=== PATIENT | female | born 1960 | race Caucasian/White ===

== ENCOUNTER 2023-04-14 09:59 | Outpatient (CLI) | payer BC, SELFPAY | END 2023-04-14 10:00 | disposition home or self-care (01) | PROVIDERS: PCP Obstetrics & Gynecology; Visit Provider Family Medicine | DX: R03.0 Elevated blood-pressure reading, without diagnosis of hypertension (principal); R50.9 Fever, unspecified | CPT/HCPCS: 80053; 86618 ==

== ENCOUNTER 2023-04-30 14:53 | Outpatient (CLI) | payer BC, SELFPAY | END 2023-04-30 14:54 | disposition home or self-care (01) | PROVIDERS: PCP Obstetrics & Gynecology; Visit Provider Family Medicine | DX: F10.10 Alcohol abuse, uncomplicated (principal); Z01.818 Encounter for other preprocedural examination | CPT/HCPCS: 80076; 82977; 85610 ==

== ENCOUNTER 2023-05-25 08:24 | Outpatient (CLI) | payer BC, SELFPAY ==
--- NOTE | 2023-05-25 08:45 | CRLHL7_ITS ---
For Patients: As a result of the Century Cures Act, medical imaging exams and procedure reports are released immediately into your electronic medical record. You may view this report before your referring provider. If you have questions, please contact your health care provider. BILATERAL SCREENING MAMMOGRAM WITH COMPUTER-AIDED DETECTION TECHNIQUE: CC and MLO views were obtained. These mammographic images have been obtained using full-field digital technique. These mammographic images were interpreted with the benefit of computer-aided detection. COMPARISON FILM: 03/23/18, 02/04/17, 07/25/14. FINDINGS: The breasts are heterogeneously dense, which may obscure small masses IMPRESSION: There is no radiographic evidence for malignancy. ASSESSMENT: BI-RADS Category 2: Benign RECOMMENDATION: Routine screening mammogram in 1 year. A lay language report of this examination will be provided to the patient. Donis Lni M.D. Diagnostic Radiologist [email or web address] YVONNE/Dictated by: Donis Lin MD @ 05/25/2023 10:40:00 AM (Electronically Signed)
== END 2023-05-25 08:25 | disposition home or self-care (01) ==
LOC: MAMMO 08:26
PROVIDERS: Visit Provider Obstetrics & Gynecology
DX: Z12.31 Encounter for screening mammogram for malignant neoplasm of breast (principal); R92.2 Inconclusive mammogram
CPT/HCPCS: 77063; 77067

== ENCOUNTER 2023-08-23 18:09 | Emergency (ER) | payer BC, OTHER, SELFPAY ==
[2023-08-23 18:14] VITALS: BP 141/64; PULSE 121; RESP 18; TEMP 36.8; O2SAT 98; BMI 21.0
--- NOTE | 2023-08-23 18:29 | CRLHL7_ITS ---
For Patients: As a result of the 21st Century Cures Act, medical imaging exams and procedure reports are released immediately into your electronic medical record. You may view this report before your referring provider. If you have questions, please contact your health care provider. INDICATION: Abdominal bloating, perianal abscess, black stool. TECHNIQUE: CT abdomen and pelvis acquired with 64 mL Isovue 370 IV contrast. COMPARISON: None available. FINDINGS: Lower chest: No focal consolidation. Liver: Nodular contour of the liver, compatible with cirrhosis. Few punctate calcified granulomas. Punctate hypodense lesions scattered throughout the liver as well, which may reflect regenerative nodules. Gallbladder and bile ducts: Cholelithiasis. Gallbladder is not distended. Pericholecystic fluid is likely secondary to ascites. Pancreas: Unremarkable. Spleen: Unremarkable. Splenule is noted. Adrenal glands: Indeterminate 1.6 cm left adrenal nodule. Kidneys: Kidneys enhance symmetrically, without hydronephrosis. Retroperitoneum: No lymphadenopathy. Bowel and mesentery: Bowel is not obstructed. No pneumoperitoneum. 2.8 x 1.7 cm peripherally enhancing left perianal fluid collection, consistent with left perianal abscess. There is also likely a perianal fistula associated. Scattered colonic diverticulosis, without evidence of acute diverticulitis. Sequelae of portal colopathy of the ascending colon. Moderate volume ascites. Bladder: Unremarkable for degree of distension. Reproductive organs: Posthysterectomy. Pelvic lymph nodes: No lymphadenopathy. Vessels: Scattered atherosclerotic calcifications. Recanalization of the paraumbilical vein noted. Abdominal wall: Mild anasarca. Bones: Multilevel degenerative changes of the spine. No suspicious/aggressive focal osseous lesion. IMPRESSION: 1. Left perianal abscess measuring 2.8 x 1.7 cm. There is also likely a left perianal fistula. 2. Morphologic sequelae of cirrhosis and portal hypertension. Scattered punctate hypodense lesions scattered throughout the liver, may reflect regenerative nodules. Recommend correlation with serum alpha-fetoprotein, and follow-up liver MRI as clinically indicated. 3. Additional incidental findings as above, including an indeterminate 1.6 cm left adrenal nodule. Please note that all CT scans at this facility use dose modulation, iterative reconstruction, and/or weight-based dosing when appropriate to reduce radiation dose to as low as reasonably achievable. Dictated by Mauricio Gonzalez MD @ 08/23/2023 8:53:18 PM (Electronically Signed)
--- NOTE | 2023-08-23 19:13 | ED_ITS ---
HPI - General Adult General Date Seen: 08/23/23 Chief complaint: Unspecified Complaint, Adult Stated complaint: anal problems, stool is black Time Seen by Provider: 08/23/23 18:12 Source: patient Mode of arrival: ambulatory Limitations: no limitations History of Present Illness HPI narrative: Patient is a 62-year-old female with a history of hypertension, alcohol abuse, tobacco use presenting to the emergency department for black tar schools, distended abdomen, in most concerned about a possible perianal abscess. She states the bowel urine have goes she had a perianal abscess that was drained she was given antibiotics. She states over the past 3 days she has been feeling like it is coming back and she has had pain with defecation. She states she has been holding her stool because of the associated pain with defecation. States she has intermittent fevers but this has been going on for over 2 months. Denies weakness, numbness, abdominal pain, nausea, vomiting, diarrhea, ligh theadedness, dizziness. Does states she noticed 1 episode of black tarry stools right before she came to the emergency department. Related Data Previous Rx's Medication Instructions Recorded amoxicillin 400 mg-potassium 10 ml PO BID 5 days #100 mL 08/23/23 clavulanate 57 mg/5 mL oral suspension Allergies Allergy/AdvReac Type Severity Reaction Status Date / Time No Known Drug Allergies Allergy Verified 08/17/23 11:13 Review of Systems Status of ROS: Reports: 10 or more systems reviewed and unremarkable except as noted in History and below PFSH PFS Medical History Tobacco abuse ?Z72.0 - Tobacco use (ICD-10) Elevated LFTs ?R79.89 - Other specified abnormal findings of blood chemistry (ICD-10) Primary hypertension ?I10 - Essential (primary) hypertension (ICD-10) Health care directive on file ?Z78.9 - Other specified health status (ICD-10) Alcohol abuse ?F10.10 - Alcohol abuse, uncomplicated (ICD-10) Depression ?F32.A - Depression, unspecified (ICD-10) Tubular adenoma of colon ?D12.6 - Benign neoplasm of colon, unspecified (ICD-10) Surgical History History of breast biopsy ?Z98.890 - Other specified postprocedural states (ICD-10) History of abdominal hysterectomy ?Z90.710 - Acquired absence of both cervix and uterus (ICD-10) Family History Father High blood pressure Mother High blood pressure Social History Narrative: patient admits to smoking and drinking alcohol. 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 Reviewed for scanning to medical record on 04/17/2020 Smoking Status: Current every day smoker What tobacco products do you use: cigarettes Do you use any of these nicotine containing products: None Second hand tobacco smoke exposure: No How often do you have a drink containing alcohol: 4 or more times a week AUDIT-C Alcohol total score: 4 Non-prescribed substance use: denies use Little interest or pleasure in doing things: not at all Feeling down, depressed, or hopeless: not at all service: No Exam Narrative: Exam Narrative: Const: Well-nourished, Well-developed, in mild distress Eyes: PERRL, no conjunctival injection, and symmetrical lids HENT: Atraumatic external nose and ears. Moist mucous membranes. Neck: Symmetric, trachea midline, No thyromegaly. CVS: RRR, No murmurs or gallops. Peripheral pulses 2+ and equal in all extremities RESP: Unlabored respiratory effort. Clear to auscultation bilaterally. GI: Nontender, distended abdomen, No rebound or guarding. rectal: 1 cm x 1 cm fluctuant mass seen near the anal region. MSK:Extremities w/o deformity, Normal Active ROM Skin: Warm, Dry. No rashes or lesions. Neuro: Normal Muscle tone, No focal neurological deficits. Psych: Awake, Alert, & Oriented x3. Appropriate mood and affect. Const: Vital Signs, click to edit/add: Vital Signs - 24 hr 08/23/23 18:14 Temperature 98.2 F Pulse Rate [Pulse Oximeter] 121 H Respiratory Rate 18 Blood Pressure [Ri ght Upper Arm] 141/64 H Pulse Oximetry 98 Oxygen Delivery Me thod Room Air Course Vital Signs Vital signs: Initial Vital Signs Temperature 98.2 F 08/23/23 18:14 Temperature Source Temporal Artery Scan 08/23/23 18:14 Pulse Rate 121 H 08/23/23 18:14 Respiratory Rate 18 08/23/23 18:14 Blood Pressure 141/64 H 08/23/23 18:14 Blood Pressure Mean 89 08/23/23 18:14 Blood Pressure Position Sitting 08/23/23 18:14 Pulse Oximetry 98 08/23/23 18:14 Oxygen Delivery Method Room Air 08/23/23 18:14 Vital Signs Temperature 98.2 F 08/23/23 18:14 Pulse Rate 121 H 08/23/23 18:14 Respiratory Rate 18 08/23/23 18:14 Blood Pressure 141/64 H 08/23/23 18:14 Pulse Oximetry 98 08/23/23 18:14 Oxygen Delivery Method Room Air 08/23/23 18:14 Temperature 98.2 F 08/23/23 18:14 Pulse Rate 121 H 08/23/23 18:14 Respiratory Rate 18 08/23/23 18:14 Blood Pressure 141/64 H 08/23/23 18:14 Pulse Oximetry 98 08/23/23 18:14 Oxygen Delivery Method Room Air 08/23/23 18:14 Medications Administered Medications: Generic Name Dose Route Start Last Admin Trade Name Freq PRN Reason Stop Dose Admin Ondansetron HCl 4 mg 08/23/23 21:39 08/23/23 21:54 Ondansetron 2 Mg/Ml Inj IVP 08/23/23 21:40 4 mg ONCE ONE Administration Medical Decision Making MDM Narrative Medical decision making narrative: Patient is a 62-year-old female presenting to emergency department for the perianal abscess. You can visually see this on exam. She is also having some abdominal distension. Patient has a history of elevated LFTs and alcohol abuse. Has not been diagnosed with cirrhosis. This is a 2nd abscess in the past year and a half. Due to this and will do CT scan with IV contrast to better evaluate the abscess. It will also order CBC and CMP. CBC shows no concerning findings. CMP shows a potassium of 3.1 which was replenished is elevated liver enzymes. The AST and alk-phos appears consistent with previous liver enzymes. Bilirubin is elevated compared to previous. CT scan returned showing the perianal abscess along with possibility of a. Her rectal fistula. Also shows cirrhosis morphology and portal hypertension there is punctate hypodense lesions throughout the liver in the recommends MRI follow- up. I spoke to Dr. Carrera of general surgery a week she recommends draining the abscess and have the patient follow-up with Colorectal surgery due to the repeat nature of this abscess. The abscess was drained and I tried to pack it but was unable to get any packing in it. Patient had episode of emesis after this was given Zofran. She will be discharged with the through [facility]. I informed her she is to follow up with Colorectal surgery and her primary care provider. Lab Data Labs: Lab Results 08/23/23 Range/Units 19:15 WBC 7.49 (4.50-11.00) K/uL RBC 3.15 L (4.00-5.20) m/uL Hgb 10.3 L (12.0-16.0) gm/dL Hct 30.8 L (33.0-51.0) % MCV 98 (80-100) fL MCH 33 (26-34) pg MCHC 33 (32-36) gm/dL RDW Coeff of Katt 15.0 (11.5-15.5) % Plt Count 111 L (140-440) K/uL Neut % (Auto) 71.4 (42.0-72.0) % Lymph % (Auto) 19.9 L (20-44) % [place] % (Auto) 7.6 (0.0-11.0) % Eos % (Auto) 0.5 (0.0-7.0) % Baso % (Auto) 0.3 (0.0-3.0) % Neut # (Auto) 5.35 (1.7-7.0) K/uL Lymph # (Auto) 1.50 (0.90-2.90) K/uL [place] # (Auto) 0.60 (0.00-0.90) K/UL Eos # (Auto) 0.04 (0.00-0.50) K/uL Baso # (Auto) 0.02 (0.00-0.30) K/uL Abs Immat Gran (auto) 0.02 (0.00-0.30) K/uL Imm/Tot Granulo (auto) 0.3 % Sodium 134 L (135-149) mmol/L Potassium 3.1 L (3.6-5.1) mmol/L Chloride 100 (96-114) mmol/L Carbon Dioxide 26 (20-32) mmol/L Anion Gap 8 (7-15) mEq/L BUN 4 L (7-30) mg/dL Creatinine 0.3 L (0.5-1.5) mg/dL Estimated Creat Clear 54.30 Estimated GFR 120 ml/min Glucose 100 (60-115) mg/dL Calcium 7.8 L (8.4-10.6) mg/dL Total Bilirubin 3.5 H (0.1-1.5) mg/dL AST 179 H (12-35) U/L ALT 27 (4-35) U/L Alkaline Phosphatase 267 H (40-150) U/L Total Protein 8.0 (6.0-8.3) g/dL Albumin 3.5 (3.3-5.0) g/dL Imaging Data CT scan abdomen and pelvis: Radiologist's impression: 1. Left perianal abscess measuring 2.8 x 1.7 cm. There is also likely a left perianal fistula. 2. Morphologic sequelae of cirrhosis and portal hypertension. Scattered punctate hypodense lesions scattered throughout the liver, may reflect regenerative nodules. Recommend correlation with serum alpha-fetoprotein, and follow-up liver MRI as clinically indicated. 3. Additional incidental findings as above, including an indeterminate 1.6 cm left adrenal nodule. Please note that all CT scans at this facility use dose modulation, iterative reconstruction, and/or weight-based dosing when appropriate to reduce radiation dose to as low as reasonably achievable. Dictated by Mauricio Gonzalez MD @ 08/23/2023 8:53:18 PM Discharge Plan Discharge Clinical Impression: Perianal fistula Patient Disposition: Home, Self-Care Condition: Improved Instructions: Anorectal Abscess and Anal Fistula (ED) Additional Instructions: Follow-up with Colorectal surgery about your abscess and perianal fistula. I was unable to get any packing in at this time. ED follow-up with [facility] or colorectal associates. Inform the medial have a recurrent perirectal abscess with an apparent perirectal fistula and possible cirrhosis. Informed them you are looking for follow-up this week [facility] colorectal surgery [address] [place] [address] [facility] [address] [place] [address] [address], [address] [address] You also have elevated liver enzymes and apparent cirrhosis with abnormality seen in the liver on CT. Recommend you follow-up with primary care provider to possibly get an MRI. Prescriptions: New amoxicillin-pot clavulanate 400-57 mg/5 mL suspension for reconstitution 10 ml PO BID 5 Days Qty: 100 0RF Follow Up/Referrals: Provider,Not a Local [Primary Care Provider] - Stand Alone Forms: [facility] Info Instructions Procedures I/D Type: abscess Site: nelsy-rectal Name of person performing procedure: Jaylan Hunt Local Anesthetic: lidocaine 1% Amount of anesthesia used (mL): 6 Technique: incised with #11 blade Amount of fluid expressed (mL): 3 Irrigation: Yes Packing used?: none (Unable to get it) Estimated blood loss (if any): less than 5mls Conclusion: patient tolerated procedure
[2023-08-23 19:30] LABS: Basophils Absolute Auto 0.02 K/uL (0.00-0.30); Basophils Percent Auto 0.3 % (0.0-3.0); Eosinophils Absolute Auto 0.04 K/uL (0.00-0.50); Eosinophils Percent Auto 0.5 % (0.0-7.0); Hematocrit 30.8 % (33.0-51.0); Hemoglobin* 10.3 gm/dL (12.0-16.0); Immature Granulocytes Abs Auto 0.02 K/uL (0.00-0.30); Immature Granulocytes Pct Auto 0.3 %; Lymphocytes Percent Auto 19.9 % (20-44); Mean Corpuscular HGB Conc 33 gm/dL (32-36); Mean Corpuscular Hemoglobin 33 pg (26-34); Mean Corpuscular Volume 98 fL (80-100); Monocytes Percent Auto 7.6 % (0.0-11.0); Neutrophils Absolute Auto 5.35 K/uL (1.7-7.0); Neutrophils Percent Auto 71.4 % (42.0-72.0); Platelet Count* 111 K/uL (140-440); Red Blood Count 3.15 m/uL (4.00-5.20); White Blood Count* 7.49 K/uL (4.50-11.00)
[2023-08-23 19:38] LABS: Chloride* 100 mmol/L (96-114)
[2023-08-23 19:39] LABS: Albumin* 3.5 g/dL (3.3-5.0); Potassium* 3.1 mmol/L (3.6-5.1); Slide Review Reflex No; Sodium* 134 mmol/L (135-149)
[2023-08-23 19:42] LABS: Alanine Aminotransferase* 27 U/L (4-35); Alkaline Phosphatase* 267 U/L (40-150); Anion Gap 8 mEq/L (7-15); Aspartate Amino Transferase* 179 U/L (12-35); Bilirubin Total* 3.5 mg/dL (0.1-1.5); Blood Urea Nitrogen* 4 mg/dL (7-30); Calcium* 7.8 mg/dL (8.4-10.6); Carbon Dioxide* 26 mmol/L (20-32); Creatinine* 0.3 mg/dL (0.5-1.5); Estimated Glomerular Filt Rate 120 ml/min; Glucose* 100 mg/dL (60-115)
--- NOTE | 2023-08-23 19:44 | ED.NURSE ---
POC creatinine order cancelled d/t BMP creatinine result being available. Dr. Hunt notified @ [phone].
[2023-08-23] MEDS: ONDANSETRON 2 MG/ML inj 4 MG IVP (21:54)
--- NOTE | 2023-08-23 21:59 | ED.NURSE ---
Pt came to nurse's station to ask where bathroom was. In process, pt had an episode of emesis on the floor of brown/ red colored emesis. Pt vomited in emesis bag as well. Vomited approximately 200cc of brown/ red colored emesis. Dr. Hunt notified in person @ approximately 277. Orders for IV zofran placed and given as ordered. Pt reports feeling better after emesis. This magnetic tape typewriter operator attempted to give PO potassium and PO augmentin. Pt stated she cannot swallow pills, espeically horse pills. Dr. Hunt notified in person @ [phone].
--- NOTE | 2023-08-23 22:32 | ED.NURSE ---
Pt drank approximately 4 oz of the 8 oz of effervescent potassium. She declined wanting to drink the rest at discharge. Pt also declined [facility] of Zofran medication. Medication sheet shredded at patient request.
[2023-08-23] MEDS: POTASSIUM BICARB 25 MEQ EFFERVESCENT TAB 50 MEQ PO (22:45)
[2023-08-23] MEDS: AMOXICILLIN/CLAVULANATE 400 mg/57 mg PER 5 ML 800 MG PO (22:45)
== END 2023-08-23 22:32 | disposition home or self-care (01) ==
PROVIDERS: Emergency Provider Student in an Organized Health Care Education/Training Program
DX: K60.3 Anal fistula (principal)
CPT/HCPCS: 10060; 36415; 46050; 74177; 80053; 82565; 85025; 87070; 87186; 96374; 99283; A9270; J2405; Q9967

== ENCOUNTER 2023-08-24 09:00 | Emergency (ER) | payer BC, OTHER, SELFPAY ==
[2023-08-24] VITALS (8 sets, daily range): BP systolic 156–171; BP diastolic 77–83; PULSE 122–130; RESP 18–20; TEMP 37.3–37.4; O2SAT 92–99; BMI 21.0
--- NOTE | 2023-08-24 09:51 | ED.GIBLEED ---
HPI - GI Bleed General Chief complaint: GI Bleed Stated complaint: black stools Time Seen by Provider: 08/24/23 09:11 History of Present Illness HPI Narrative: This 62-year-old female comes in reporting black tarry stools today. She also reports some lightheadedness and shortness of breath and arrives here with tachycardia and a rate around 130 beats per minute. She was seen last evening in this emergency department and had a perianal abscess drained with suspicion of a perianal fistula. The patient received a dose of Augmentin and has a prescription for more which she has not yet filled today. She states that she did attempt to call [facility] to have of visit with [facility] to attend to the perianal fistula but there was no appointment available until 4 months from now. Related Data Previous Rx's Medication Instructions Recorded amoxicillin 400 mg-potassium 10 ml PO BID 5 days #100 mL 08/23/23 clavulanate 57 mg/5 mL oral suspension Allergies Allergy/AdvReac Type Severity Reaction Status Date / Time No Known Drug Allergies Allergy Verified 08/24/23 09:19 Review of Systems Status of ROS: Reports: 10 or more systems reviewed and unremarkable except as noted in History and below Narrative: Constitutional: No fevers, no weight gain or loss. Eyes: No discharge. No vision changes. HENT: No congestion, no sore throat, no ear pain. Cardiovascular: No chest pain, no palpitations. Respiratory: No wheezes, no cough. She reports some shortness of breath. Gastrointestinal: No abdominal pain, no vomiting, no diarrhea. Genitourinary: No dysuria, no hematuria. Musculoskeletal: Normal range of motion. Skin: No rashes, no pruritis. Neurological: No dizziness, weakness, sensory change, speech change. Endo/Heme/Allergies: No polydipsia. She reports black liquid stools today and states that she has some bruising on her arms. Pysch: no suicidality, no insomnia. All other systems reviewed and are negative. [facility] Medical History Tobacco abuse ?Z72.0 - Tobacco use (ICD-10) Elevated LFTs ?R79.89 - Other specified abnormal findings of blood chemistry (ICD-10) Primary hypertension ?I10 - Essential (primary) hypertension (ICD-10) Health care directive on file ?Z78.9 - Other specified health status (ICD-10) Alcohol abuse ?F10.10 - Alcohol abuse, uncomplicated (ICD-10) Depression ?F32.A - Depression, unspecified (ICD-10) Tubular adenoma of colon ?D12.6 - Benign neoplasm of colon, unspecified (ICD-10) Surgical History History of breast biopsy ?Z98.890 - Other specified postprocedural states (ICD-10) History of abdominal hysterectomy ?Z90.710 - Acquired absence of both cervix and uterus (ICD-10) Family History Father High blood pressure Mother High blood pressure Social History Narrative: patient admits to smoking and drinking alcohol. 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 Reviewed for scanning to medical record on 04/17/2020 Smoking Status: Current every day smoker What tobacco products do you use: cigarettes Do you use any of these nicotine containing products: None Second hand tobacco smoke exposure: No How often do you have a drink containing alcohol: 4 or more times a week How many standard drinks containing alcohol do you have on a typical day: 3 or 4 How often do you have six or more drinks on one occasion: Never AUDIT-C Alcohol total score: 5 Non-prescribed substance use: marijuana (any form) Little interest or pleasure in doing things: not at all Feeling down, depressed, or hopeless: not at all service: No Exam Narrative: Exam Narrative: Constitutional: Well-developed, well-nourished, no acute distress. HEENT: Normocephalic, atraumatic. Neck: Normal range of motion. Nontender. Supple. Heart: Regular. No murmurs. Tachycardia Intact distal pulses. Lungs: Clear to auscultation. No chest discomfort. No wheezes, rhonchi, or rales. Abdomen: Normal bowel sounds. Nontender. No rebound tenderness. Distended abdomen. Genitalia: Deferred. Back: No midline tenderness. Normal range of motion. Extremities: Normal range of motion. No injury. No pedal edema. Skin: Intact. No rash. Warm. No erythema or pallor. Neurologic: No altered sensation. No weakness. Alert and oriented. Psychiatric: No suicidality. No anxiety or depression. No insomnia. Nursing notes and vitals signs are reviewed. Const: Vital Signs, click to edit/add: Vital Signs - 24 hr 08/24/23 09:14 08/24/23 11:08 08/24/23 13:56 Temperature 99.1 F 99.4 F Pulse Rate 126 H 123 H Pulse Rate [Pulse Oximeter] 130 H Respiratory Rate 18 20 Blood Pressure 156/77 H Blood Pressure [Le ft Upper Arm] 171/79 H Pulse Oximetry 99 92 95 Oxygen Delivery Me thod Room Air 08/24/23 13:58 08/24/23 14:00 08/24/23 14:01 Temperature Pulse Rate 126 H 129 H 130 H Pulse Rate [Pulse Oximeter] Respiratory Rate Blood Pressure 162/80 H 157/83 H Blood Pressure [Le ft Upper Arm] Pulse Oximetry 95 97 94 Oxygen Delivery Me thod Course Vital Signs Vital signs: Initial Vital Signs Temperature 99.1 F 08/24/23 09:14 Temperature Source Temporal Artery Scan 08/24/23 09:14 Pulse Rate 130 H 08/24/23 09:14 Respiratory Rate 18 08/24/23 09:14 Blood Pressure 171/79 H 08/24/23 09:14 Blood Pressure Mean 109 H 08/24/23 09:14 Pulse Oximetry 99 08/24/23 09:14 Oxygen Delivery Method Room Air 08/24/23 09:14 Vital Signs Temperature 99.1 F 08/24/23 09:14 Pulse Rate 130 H 08/24/23 09:14 Respiratory Rate 18 08/24/23 09:14 Blood Pressure 171/79 H 08/24/23 09:14 Pulse Oximetry 99 08/24/23 09:14 Oxygen Delivery Method Room Air 08/24/23 09:14 Temperature 99.4 F 08/24/23 11:08 Pulse Rate 130 H 08/24/23 14:01 Respiratory Rate 20 08/24/23 11:08 Blood Pressure 157/83 H 08/24/23 14:01 Pulse Oximetry 94 08/24/23 14:01 Oxygen Delivery Method Room Air 08/24/23 09:14 Medications Administered Medications: Discontinued Medications Generic Name Dose Route Start Last Admin Trade Name Freq PRN Reason Stop Dose Admin Sodium Chloride 1,000 mls @ 1,000 mls/hr 08/24/23 10:00 08/24/23 11:13 0.9 % Sodium Chloride 1000 Ml IV 08/24/23 10:59 Infused .Q1H MATY Infusion MDM - GI Bleed MDM Narrative Medical decision making narrative: This 62-year-old female comes in with concern about recurrent black stools. She was seen yesterday and had an abscess drained in the perianal region. She is taking Augmentin and had her 1st dose last night. She arrives here with tachycardia and heart rate around 130. An IV was established where she did receive a L of normal saline. Lab results returned with a reassuring hemoglobin at 10.9. Some of this may be artificially elevated as she did receive a L of normal saline after the labs were drawn. Nevertheless she does have some cushion for the possibility of an ongoing bleed. The patient does have liver disease and admits to abusing alcohol. These lab values of her liver enzymes and bilirubin are elevated but not new for her. I had spoke with the hospitalist here who stated that she is best served in a place where an upper GI endoscopy can be done where they can handle possibility of esophageal varices or other complications. I did speak with a GI physician at [facility] who is happy to have her sent there but there were no beds available. We checked at [facility], [facility], and [facility] and all these facilities do not have any beds available. Meanwhile the patient did visit the restroom a couple times and states that her stools have normalized. She states that she wants to return home. 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 I did state the importance of having endoscopy but given the current circumstances of no beds available this seemed to be a and agreeable compromise. She states that she is taking omeprazole occasionally. I stated that she should take this daily and encouraged her to avoid alcohol. Lab Data Labs: Lab Results 08/24/23 08/24/23 Range/Units 09:50 Unknown WBC 6.40 (4.50-11.00) K/uL RBC 3.30 L (4.00-5.20) m/uL Hgb 10.9 L (12.0-16.0) gm/dL Hct 32.8 L (33.0-51.0) % MCV 99 (80-100) fL MCH 33 (26-34) pg MCHC 33 (32-36) gm/dL RDW Coeff of Katt 15.1 (11.5-15.5) % Plt Count 124 L (140-440) K/uL Neut % (Auto) 70.2 (42.0-72.0) % Lymph % (Auto) 20.8 (20-44) % Hill % (Auto) 8.6 (0.0-11.0) % Eos % (Auto) 0.2 (0.0-7.0) % Baso % (Auto) 0.2 (0.0-3.0) % Neut # (Auto) 4.50 (1.7-7.0) K/uL Lymph # (Auto) 1.33 (0.90-2.90) K/uL Hill # (Auto) 0.60 (0.00-0.90) K/UL Eos # (Auto) 0.01 (0.00-0.50) K/uL Baso # (Auto) 0.01 (0.00-0.30) K/uL Abs Immat Gran (auto) 0.00 (0.00-0.30) K/uL Imm/Tot Granulo (auto) 0.0 % INR 1.56 H (0.91-1.10) Sodium 134 L (135-149) mmol/L Potassium 3.4 L (3.6-5.1) mmol/L Chloride 101 (96-114) mmol/L Carbon Dioxide 26 (20-32) mmol/L Anion Gap 7 (7-15) mEq/L BUN 9 (7-30) mg/dL Creatinine 0.3 L (0.5-1.5) mg/dL Estimated Creat Clear 54.30 Estimated GFR 120 ml/min Glucose 112 (60-115) mg/dL Calcium 8.2 L (8.4-10.6) mg/dL Total Bilirubin 5.4 H (0.1-1.5) mg/dL Direct Bilirubin 2.4 H (0.0-0.5) mg/dL AST 174 H (12-35) U/L ALT 30 (4-35) U/L Alkaline Phosphatase 293 H (40-150) U/L C-Reactive Protein 3.6 H (0.5-1.0) mg/dL Total Protein 8.3 (6.0-8.3) g/dL Albumin 3.6 (3.3-5.0) g/dL POC Troponin I 0.02 (0.01-0.04) ng/ml Blood Type A Positive Antibody Screen NEGATIVE ECG Data Attestation: I personally reviewed and interpreted this ECG as follows: Interpretation: Sinus tachycardia. Rate is 130 beats per minute. There are no specific ST or T-wave abnormalities. Discharge Plan Discharge Clinical Impression: Elevated LFTs, Acute upper gastrointestinal bleeding Patient Disposition: Home w/ Parent or Adult Condition: Improved Additional Instructions: Take omeprazole daily. Avoid alcohol. Follow up with primary physician and it is recommended to have an upper GI endoscopy for further evaluation and treatment. Return if symptoms are recurrent or worsening. Prescriptions: No Action amoxicillin-pot clavulanate 400-57 mg/5 mL suspension for reconstitution 10 ml PO BID 5 Days Qty: 100 0RF Hold Instructions: has not picked up from pharmacy yet Follow Up/Referrals: Provider,Not a Local [Primary Care Provider] - Stand Alone Forms: [employer] Info Instructions
[2023-08-24] MEDS: 0.9 % SODIUM CHLORIDE 1000 ml 1,000 ML IV (10:07)
[2023-08-24 10:19] LABS: Basophils Absolute Auto 0.01 K/uL (0.00-0.30); Basophils Percent Auto 0.2 % (0.0-3.0); Eosinophils Absolute Auto 0.01 K/uL (0.00-0.50); Eosinophils Percent Auto 0.2 % (0.0-7.0); Hematocrit 32.8 % (33.0-51.0); Hemoglobin* 10.9 gm/dL (12.0-16.0); Lymphocytes Absolute Auto 1.33 K/uL (0.90-2.90); Lymphocytes Percent Auto 20.8 % (20-44); Mean Corpuscular HGB Conc 33 gm/dL (32-36); Mean Corpuscular Hemoglobin 33 pg (26-34); Mean Corpuscular Volume 99 fL (80-100); Monocytes Percent Auto 8.6 % (0.0-11.0); Neutrophils Percent Auto 70.2 % (42.0-72.0); Platelet Count* 124 K/uL (140-440); RDW Coefficient of Variation % 15.1 % (11.5-15.5)
[2023-08-24 10:22] LABS: Slide Review Reflex No
[2023-08-24 10:24] LABS: Troponin, Point-of-Care* 0.02 ng/ml (0.01-0.04)
[2023-08-24 10:35] LABS: Albumin* 3.6 g/dL (3.3-5.0)
[2023-08-24 10:36] LABS: INR 1.56 (0.91-1.10); Prothrombin Time 19.7 Seconds
[2023-08-24 10:38] LABS: Alanine Aminotransferase* 30 U/L (4-35); Alkaline Phosphatase* 293 U/L (40-150); Aspartate Amino Transferase* 174 U/L (12-35); Bilirubin Direct* 2.4 mg/dL (0.0-0.5); Bilirubin Total* 5.4 mg/dL (0.1-1.5); Total Protein* 8.3 g/dL (6.0-8.3)
[2023-08-24 10:44] LABS: Chloride* 101 mmol/L (96-114); Potassium* 3.4 mmol/L (3.6-5.1); Sodium* 134 mmol/L (135-149)
[2023-08-24 10:47] LABS: Creatinine* 0.3 mg/dL (0.5-1.5); Estimated Glomerular Filt Rate 120 ml/min
[2023-08-24 10:48] LABS: Anion Gap 7 mEq/L (7-15); Blood Urea Nitrogen* 9 mg/dL (7-30); Calcium* 8.2 mg/dL (8.4-10.6); Carbon Dioxide* 26 mmol/L (20-32); Glucose* 112 mg/dL (60-115)
[2023-08-24 10:51] LABS: C Reactive Protein* 3.6 mg/dL (0.5-1.0)
== END 2023-08-24 14:36 | disposition home or self-care (01) ==
PROVIDERS: Emergency Provider Emergency Medicine Emergency Medical Services
DX: K92.2 Gastrointestinal hemorrhage, unspecified (principal); R79.89 Other specified abnormal findings of blood chemistry
CPT/HCPCS: 36415; 80048; 80076; 84484; 85025; 85610; 86140; 86850; 86900; 86901; 93005; 96360; 99284; J7030

== ENCOUNTER 2023-09-02 09:24 | Outpatient (CLI) | payer BC, SELFPAY | END 2023-09-02 09:25 | disposition home or self-care (01) | PROVIDERS: PCP Family Medicine; Visit Provider Family Medicine | DX: F10.10 Alcohol abuse, uncomplicated (principal); K74.60 Unspecified cirrhosis of liver; K92.2 Gastrointestinal hemorrhage, unspecified; Z13.220 Encounter for screening for lipoid disorders; R79.89 Other specified abnormal findings of blood chemistry | CPT/HCPCS: 80053; 82105 ==

== ENCOUNTER 2023-09-02 09:58 | Outpatient (CLI) | payer BC, SELFPAY ==
--- NOTE | 2023-09-02 15:00 | CRLHL7_ITS ---
For Patients: As a result of the Century Cures Act, medical imaging exams and procedure reports are released immediately into your electronic medical record. You may view this report before your referring provider. If you have questions, please contact your health care provider. INDICATION: left leg/foot swelling/edema COMPARISON: None. TECHNIQUE: A compression venous ultrasound exam was performed of the left lower extremity using mayen-scale imaging, color Doppler and spectral Doppler analysis. FINDINGS: Sonographic imaging of the left lower extremity demonstrates normal compressibility and color Doppler venous blood flow within the common femoral vein, deep femoral vein, and the proximal greater saphenous vein. Within the thigh, the femoral vein is patent and compressible. At a lower level, the popliteal and posterior tibial veins also show normal compressibility and color Doppler venous blood flow. Limited imaging of the contralateral groin demonstrates a normal spectral waveform and color Doppler venous blood flow within the right common femoral vein. IMPRESSION: Normal venous ultrasound exam. No evidence of deep vein thrombosis within the left lower extremity. Dictated by Donis Lin MD @ 09/08/2023 6:37:45 AM (Electronically Signed)
== END 2023-09-02 09:59 | disposition home or self-care (01) ==
LOC: US 09:59
PROVIDERS: PCP Family Medicine; Visit Provider Family Medicine
DX: R22.42 Localized swelling, mass and lump, left lower limb (principal); M79.89 Other specified soft tissue disorders
CPT/HCPCS: 80053; 93971

== ENCOUNTER 2023-09-15 19:18 | Emergency (ER) | payer BC, OTHER, SELFPAY ==
[2023-09-15 19:20] VITALS: BP 136/64; PULSE 125; RESP 14; TEMP 37.7; O2SAT 98; BMI 23.2
[2023-09-15] MEDS: POTASSIUM BICARB 25 MEQ EFFERVESCENT TAB 50 MEQ PO (19:55)
--- NOTE | 2023-09-15 20:01 | ED_ITS ---
HPI - General Adult General Date Seen: 09/15/23 Chief complaint: Unspecified Complaint, Adult Stated complaint: Low potassium Time Seen by Provider: 09/15/23 19:26 History of Present Illness HPI narrative: Patient is a 62-year-old female with a past medical history including cirrhosis, alcohol abuse (has been cutting down lately and currently drinks 1 glass of wine per day) recent perirectal abscess and fistula (drained here in the ER on 08/24, still working on getting outpatient colorectal follow-up), recent visit to the ER for black stools, presumably due to upper GI bleed with anemia (baseline hemoglobin was 10, now down to 9.7) who is sent to the ER today from the outpatient clinic provider for hypokalemia. She had a visiting clinic today with primary care for her ongoing health problems. From the clinic note: 62-year-old female who follows up from her last visit on 09/02/2023 for the following issues. 1. Perianal abscess with perirectal fistula. She has not seen colorectal surgery since they are not willing to schedule this till she sees Gastroenterology. Unfortunately this is not until 11/29/2023. She can only go to [facility] due to her insurance. She keeps calling about I waiting list but has not had any success. She remains frustrated about this. 2. Excessive alcohol use. She has gone from 3 glasses of wine per day to 1 glass of wine per day. 3. Black stools. These have resolved. 4. Abdominal pain. Suspected ascites and cirrhosis based on previous imaging findings. Pain is now prominent across her lower abdomen 8/10 in intensity with standing but currently 3/10 with sitting. Increased pain with eating but she is making herself eat. She is not able to work due to the increased pain with standing and she needs a note for this. Assessment/plan: 1. Perianal abscess with perirectal fistula. Plan per colorectal surgery when they are willing to see here. She is not having any pain or bleeding issues at this time. 2. Excessive alcohol use. Goal will be to stop alcohol use. 3. Black stools. Resolved. 4. Abdominal pain. Likely from worsening ascites. Repeat CT scan ordered today. Arrangements made with Dr. Marie to do a therapeutic and diagnostic tap tomorrow. Anticipate called to Gastroenterology based on results. INR ordered ahead of this procedure. Recheck liver function test. 5. Hypokalemia. Recheck labs today. 6. Hyponatremia. Recheck labs today. Patient says she is having ongoing and distention in her abdomen and she feels short of breath with standing or walking because of that. She is pleased that she is it could be getting a paracentesis tomorrow. She has had some weakness but no other numbness. No vomiting. No diarrhea. No recent black or bloody stools. No fever. She notes that she had an elevated heart rate at her last ER visit and it is elevated again today. She is otherwise feeling at her baseline. She did not want to come to the ER tonight, but after having had labs drawn today, her primary care office called and insisted that she come in for treatment of her low potassium. She says she is otherwise feeling fine. Recent labs: 04/30- hemoglobin 12.7 08/23- hemoglobin 10.3, platelet count 111, sodium 134, potassium 3.1 08/24- hemoglobin 10.9, platelet count 124, sodium 134, potassium 3.4 09/02- hemoglobin 9.9, platelet count 136, sodium 131, potassium 3.3 09/15- hemoglobin 9.7, platelet count 132, sodium 133, potassium 2.8, INR 1.5 Related Data Previous Rx's Medication Instructions Recorded potassium bicarbonate-citric acid 25 meq PO BID 7 days #14 ea 09/15/23 25 mEq effervescent tablet Allergies Allergy/AdvReac Type Severity Reaction Status Date / Time No Known Drug Allergies Allergy Verified 09/15/23 19:20 [facility] Medical History Tobacco abuse ?Z72.0 - Tobacco use (ICD-10) Elevated LFTs ?R79.89 - Other specified abnormal findings of blood chemistry (ICD-10) Primary hypertension ?I10 - Essential (primary) hypertension (ICD-10) Health care directive on file ?Z78.9 - Other specified health status (ICD-10) Alcohol abuse ?F10.10 - Alcohol abuse, uncomplicated (ICD-10) Depression ?F32.A - Depression, unspecified (ICD-10) Tubular adenoma of colon ?D12.6 - Benign neoplasm of colon, unspecified (ICD-10) Surgical History History of breast biopsy ?Z98.890 - Other specified postprocedural states (ICD-10) History of abdominal hysterectomy ?Z90.710 - Acquired absence of both cervix and uterus (ICD-10) Family History Father High blood pressure Mother High blood pressure Social History (Updated 09/02/23 @ 09:42 by Farnaz Jewell ~ [facility]) Narrative: patient admits to smoking and drinking alcohol. 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 Reviewed for scanning to medical record on 04/17/2020 What is your current living situation?: I presently have a place to live Problems where you live: no known problems In the past 12 months, utilities in danger of being shut off: no In past 12 months, lack of transportation kept you from medical appts, meetings, work, or getting things needed for daily living: no In the past 12 mos, have been you worried that your food would run out before you had money to buy more?: never true In the past 12 mos, the food you bought just didn't last and you didn't have money to buy more?: never true Smoking Status: Current every day smoker What tobacco products do you use: cigarettes Do you use any of these nicotine containing products: None Second hand tobacco smoke exposure: No How often do you have a drink containing alcohol: 4 or more times a week How many standard drinks containing alcohol do you have on a typical day: 1 or 2 How often do you have six or more drinks on one occasion: Never AUDIT-C Alcohol total score: 4 Non-prescribed substance use: marijuana (any form) How often does anyone, including family, friends and others, physically hurt you : never How often does anyone, including family, friends and others, insult or talk down to you: never How often does anyone, including family, friends and others, threaten you with harm: never How often does anyone, including family, friends and others, scream or curse at you: never Little interest or pleasure in doing things: several days Feeling down, depressed, or hopeless: several days service: No Exam Narrative: Exam Narrative: Constitutional: Appears well-developed and well-nourished. Alert. Conversant, ten polite. She has a good sense of humor. Non toxic. HENT: Head: Atraumatic. Nose: Nose normal. Mouth/Throat: Oral mucosa is clear and moist. no trismus. Pharynx normal. Tonsils symmetric. Eyes: Conjunctivae normal. EOM normal. Pupils equal, round, and reactive to light. No scleral icterus. Neck: Normal range of motion. Neck supple. No tracheal deviation present. Cardiovascular: Tachycardic, regular rhythm. No gallop. No friction rub. No murmur heard. Symmetric radial artery pulses Pulmonary/Chest: Effort normal. No stridor. No respiratory distress. No wheezes. No rales. No rhonchi . No tenderness. Abdominal: Soft. Bowel sounds normal. Marked distention and firmness consistent with ascites. No tenderness. No rebound. No guarding. Musculoskeletal: RUE: Normal range of motion. No tenderness. No deformity LUE: Normal range of motion. No tenderness. No deformity RLE: Normal range of motion. No edema. No tenderness. No deformity LLE: Normal range of motion. No edema. No tenderness. No deformity Neurological: Alert and oriented to person, place, and time. Normal strength. CN II-VII intact. No sensory deficit. GCS eye subscore is 4. GCS verbal subscore is 5. GCS motor subscore is 6. Normal coordination Skin: Skin is warm and dry. No rash noted. No pallor. Normal capillary refill. Psychiatric: Normal mood. Normal affect. Const: Vital Signs, click to edit/add: Vital Signs - 24 hr 09/15/23 19:20 Temperature 99.9 F H Pulse Rate [Pulse Oximeter] 125 H Respiratory Rate 14 Blood Pressure [Ri ght Upper Arm] 136/64 Pulse Oximetry 98 Oxygen Delivery Me thod Room Air Course Vital Signs Vital signs: Initial Vital Signs Temperature 99.9 F H 09/15/23 19:20 Temperature Source Temporal Artery Scan 09/15/23 19:20 Pulse Rate 125 H 09/15/23 19:20 Pulse Rhythm Regular 09/15/23 19:20 Respiratory Rate 14 09/15/23 19:20 Blood Pressure 136/64 09/15/23 19:20 Blood Pressure Mean 88 09/15/23 19:20 Blood Pressure Position Sitting 09/15/23 19:20 Pulse Oximetry 98 09/15/23 19:20 Oxygen Delivery Method Room Air 09/15/23 19:20 Vital Signs Temperature 99.9 F H 09/15/23 19:20 Pulse Rate 125 H 09/15/23 19:20 Respiratory Rate 14 09/15/23 19:20 Blood Pressure 136/64 09/15/23 19:20 Pulse Oximetry 98 09/15/23 19:20 Oxygen Delivery Method Room Air 09/15/23 19:20 Temperature 99.9 F H 09/15/23 19:20 Pulse Rate 125 H 09/15/23 19:20 Respiratory Rate 14 09/15/23 19:20 Blood Pressure 136/64 09/15/23 19:20 Pulse Oximetry 98 09/15/23 19:20 Oxygen Delivery Method Room Air 09/15/23 19:20 Medications Administered Medications: Discontinued Medications Generic Name Dose Route Start Last Admin Trade Name Freq PRN Reason Stop Dose Admin Potassium Bicarbonate 50 meq 09/15/23 19:52 09/15/23 19:55 Potassium Bicarb 25 Meq Effervescent Tab PO 09/15/23 19:53 50 meq ONCE ONE Administration Potassium Chloride 40 meq 09/15/23 19:31 09/15/23 20:07 Potassium Chloride 10 Meq Capsule Er PO 09/15/23 19:32 Not Given ONCE ONE Medical Decision Making MDM Narrative Medical decision making narrative: Very pleasant 62-year-old female with a recent diagnosis of cirrhosis and ascites who is referred to the ER today by her outpatient clinic because her labs in clinic today showed low potassium at 2.8. She is essentially asymptomatic with that. She does not have any new weakness or numbness. No palpitations. EKG was obtained here and shows nonspecific flattening but no U- waves, no VA depression. No prolonged QT. laboratory workup confirms hypokalemia. Magnesium level is normal. Kidney function normal. Discussed treatment for hypokalemia with the patient. She adamantly does not want to be hospitalized Reena prefer not to have an IV. With asymptomatic hypokalemia and no EKG changes I think this is reasonable. She is supplemented with 50 mEq of oral potassium bicarbonate here in the ER (because she cannot swallow potassium chloride pills). Will send home with supply of additional potassium bicarbonate 25 mEq that she can taken at bedtime. Will start her on potassium bicarbonate 25 mEq b.i.d. for the next 7 days. She actually will follow-up tomorrow with primary care for therapeutic paracentesis for her ascites and if she cannot recheck potassium in clinic tomorrow will have it rechecked on Wednesday to make sure it is coming up. Precautions for return to the ER reviewed. Of note she did have some black stools a few weeks ago when she was here in the ER but no recent symptoms of GI bleeding. Hemoglobin is essentially stable at 9.7, down from 9.9 last week. At this point there is no evidence for SBP, hepatic encephalopathy, active GI bleeding, renal failure. No indication for hospi talization at this point. Precautions for return to the ER reviewed and questions answered. Lab Data Labs: Lab Results 09/15/23 Range/Units 19:55 Sodium 133 L (135-149) mmol/L Potassium 2.7 L* (3.6-5.1) mmol/L Chloride 102 (96-114) mmol/L Carbon Dioxide 23 (20-32) mmol/L Anion Gap 8 (7-15) mEq/L BUN 5 L (7-30) mg/dL Creatinine 0.3 L (0.5-1.5) mg/dL Estimated Creat Clear 54.61 Estimated GFR 120 ml/min Glucose 125 H (60-115) mg/dL Calcium 7.7 L (8.4-10.6) mg/dL Magnesium 1.8 (1.5-2.6) mg/dL Total Bilirubin 3.6 H (0.1-1.5) mg/dL AST 123 H (12-35) U/L ALT 23 (4-35) U/L Alkaline Phosphatase 291 H (40-150) U/L Total Protein 7.6 (6.0-8.3) g/dL Albumin 3.1 L (3.3-5.0) g/dL ECG Data Attestation: I personally reviewed and interpreted this ECG as follows: Interpretation: Sinus tachycardia. Rate 125 VA 150 QRS axis : Normal axis. No pathologic Q-waves. ST segment/T wave: Nonspecific T-wave flattening. QTc: 430 Discharge Plan Discharge Clinical Impression: Hypokalemia Patient Disposition: Home, Self-Care Instructions: Hypokalemia (ED) Additional Instructions: Please follow-up with your doctor tomorrow for your paracentesis and on Wednesday with your regular doctor to recheck your potassium. If you have any worsening symptoms, weakness, heart skipping beats, palpitations, or any concerns, return to the ER immediately. Prescriptions: New potassium bicarb-citric acid 25 mEq tablet, effervescent 25 meq PO BID 7 Days Qty: 14 0RF Follow Up/Referrals: Jared Delgado MD [Primary Care Provider] - Stand Alone Forms: [employer] Info Instructions
[2023-09-15 20:17] LABS: Albumin* 3.1 g/dL (3.3-5.0); Chloride* 102 mmol/L (96-114)
[2023-09-15 20:18] LABS: Sodium* 133 mmol/L (135-149)
[2023-09-15 20:20] LABS: Anion Gap 8 mEq/L (7-15); Bilirubin Total* 3.6 mg/dL (0.1-1.5); Carbon Dioxide* 23 mmol/L (20-32); Creatinine* 0.3 mg/dL (0.5-1.5); Est. Creatinine Clearance* 54.61; Estimated Glomerular Filt Rate 120 ml/min
[2023-09-15 20:21] LABS: Alanine Aminotransferase* 23 U/L (4-35); Alkaline Phosphatase* 291 U/L (40-150); Aspartate Amino Transferase* 123 U/L (12-35); Blood Urea Nitrogen* 5 mg/dL (7-30); Calcium* 7.7 mg/dL (8.4-10.6); Glucose* 125 mg/dL (60-115); Magnesium* 1.8 mg/dL (1.5-2.6); Total Protein* 7.6 g/dL (6.0-8.3)
[2023-09-15 20:22] LABS: Potassium* 2.7 mmol/L (3.6-5.1)
--- NOTE | 2023-09-15 20:28 | ED.NURSE ---
Call received from lab that pt's labs showed a Potassium of 2.7. Dr. Hernandez notified by phone @ 2021
--- NOTE | 2023-09-17 23:02 | ED.NURSE ---
Call to pt to give potassium result, per verbal order from Dr. Marie. Per Dr. Marie, pt to double potassium dosage to 50 meq daily and schedule follow-up for potassium recheck with Dr. Delgado on Wednesday. Pt denies further questions.
== END 2023-09-15 21:51 | disposition home or self-care (01) ==
PROVIDERS: Emergency Provider Emergency Medicine; PCP Family Medicine
DX: E87.6 Hypokalemia (principal)
CPT/HCPCS: 36415; 80053; 83735; 93005; 99283; 99284; A9270

== ENCOUNTER 2023-09-16 13:42 | Outpatient (CLI) | payer BC, OTHER, SELFPAY ==
[2023-09-16 13:59] VITALS: BP 117/41; PULSE 104; RESP 18; O2SAT 98
[2023-09-16 14:15] VITALS: BP 165/71; PULSE 104; RESP 22; O2SAT 98
[2023-09-16] MEDS: ALBUMIN HUMAN 25% 100 ML VIAL IV (14:20)
[2023-09-16 14:30] VITALS: BP 140/78; PULSE 110; RESP 20; O2SAT 99
[2023-09-16 14:45] VITALS: BP 130/42; BP 136/86; PULSE 104; PULSE 112; RESP 20; O2SAT 99
[2023-09-16 16:51] LABS: Mononuclear WBC Body Fluid* 82 %; Polynuclear WBC Body Fluid* 18 %; RBC, Body Fluid* 0 Cells/uL; WBC, Body Fluid* 325 Cells/uL
[2023-09-16 17:07] LABS: BF Clarity* Slightly Cloudy; BF Color Xanthochromic; BF Total Volume* 5
[2023-09-16 17:41] LABS: Albumin Body Fluid* < 1.0 gm/dL; Body Fluid Total Protein* < 2.0 gm/dL; Glucose Body Fluid* 103 mg/dL
[2023-09-16 17:42] LABS: LDH Body Fluid* 92 U/L
[2023-09-16 20:27] LABS: Amylase Body Fluid* < 60 U/L
--- NOTE | 2023-09-20 07:50 | P.PCN_ITS ---
Procedure Note Time Seen by Provider: 02:00 Date Seen: 09/16/23 Provider Contact Time: 01:00 Date of procedure: 09/16/23 Will [facility] bill your pro fee for this procedure?: Yes Pre-op diagnosis: Ascites Post-op diagnosis: same Procedure: Paracentesis Procedure Description: With the pt in the recumbent position, I localized large amount of ascites. I then sterilely prepared the left lower quadrant. After which I did provide anesthesia with subcutaneous injections of 1% lidocaine. I made a 1 cm incision through which I inserted a paracentesis needle and catheter in to the peritoneal space. Fluid was collected for analysis. I then directed flow to series of 7 1 L Vacutainer bottles until a total of 7000 mL of yellow straw-colored liquid was removed. Once the liquid was removed I did remove the catheter and close the defect with Dermabond. Patient tolerated procedure well and there were no complications. Anesthesia: local Estimated blood loss (mL): 3 Condition: stable Disposition: other
== END 2023-09-16 13:43 | disposition home or self-care (01) ==
LOC: US 13:43
PROVIDERS: PCP Family Medicine; Visit Provider Internal Medicine
DX: R18.8 Other ascites (principal); K74.60 Unspecified cirrhosis of liver
CPT/HCPCS: 36415; 49083; 82042; 82150; 82945; 83615; 84155; 84157; 87070; 87205; 88112; 88305; 89051; P9047

== ENCOUNTER 2023-09-17 13:53 | Outpatient (CLI) | payer BC, OTHER, SELFPAY | END 2023-09-17 13:54 | disposition home or self-care (01) | LOC: NFLDREF 09-22 11:12 | PROVIDERS: PCP Family Medicine; Referring Provider Family Medicine; Visit Provider Family Medicine | DX: R18.8 Other ascites (principal) | CPT/HCPCS: 80048 ==

== ENCOUNTER 2023-09-22 10:56 | Outpatient (CLI) | payer BC, SELFPAY | END 2023-09-22 10:57 | disposition home or self-care (01) | LOC: NFLDREF 09-24 08:32 | PROVIDERS: PCP Family Medicine; Referring Provider Family Medicine; Visit Provider Family Medicine | DX: E87.6 Hypokalemia (principal) | CPT/HCPCS: 80048 ==

== ENCOUNTER 2023-09-29 09:30 | Outpatient (CLI) | payer BC, SELFPAY | END 2023-09-29 09:31 | disposition home or self-care (01) | LOC: NFLDREF 10-02 07:27 | PROVIDERS: PCP Family Medicine; Referring Provider Family Medicine; Visit Provider Family Medicine | DX: E87.1 Hypo-osmolality and hyponatremia (principal); E87.6 Hypokalemia; K74.60 Unspecified cirrhosis of liver; D64.9 Anemia, unspecified | CPT/HCPCS: 80053 ==

== ENCOUNTER 2023-12-02 09:53 | Outpatient (CLI) | payer BC, SELFPAY | END 2023-12-02 09:54 | disposition home or self-care (01) | LOC: AMB 12-07 00:01 | PROVIDERS: PCP Family Medicine; Visit Provider Emergency Medicine | DX: R53.1 Weakness (principal); R50.9 Fever, unspecified | CPT/HCPCS: A0425; A0427 ==

== ENCOUNTER 2023-12-02 10:27 | Emergency (ER) | payer BC, SELFPAY ==
[2023-12-02] VITALS (24 sets, daily range): BP systolic 94–120; BP diastolic 39–64; PULSE 87–103; RESP 12–18; TEMP 36.5–37.1; O2SAT 97–100; BMI 16.1
[2023-12-02 11:15] LABS: Lactate Sepsis w/Reflex* 1.7 mmol/L (0.5-1.9)
[2023-12-02 11:35] LABS: PCR FLU A Negative PCR FLU A (Negative); PCR FLU B Negative PCR FLU B (Negative); PCR RSV Negative PCR RSV (Negative); SARS PCR* Negative SARS-CoV-2 (Negative)
--- NOTE | 2023-12-02 11:36 | ED.GENADULT ---
HPI - General Adult General Date Seen: 12/02/23 Chief complaint: Weakness Stated complaint: Sepsis Time Seen by Provider: 12/02/23 10:37 Source: patient, family, RN notes reviewed and old records reviewed Mode of arrival: ambulatory Limitations: no limitations History of Present Illness HPI narrative: Patient is a 63-year-old woman with pertinent past medical history of cirrhosis, ascites, hypokalemia, brought in by her for evaluation of fatigue since last night. He says they usually play board games but she did not want to do that last night, slept on the couch most of the evening. This morning she still seemed more fatigued and he and other family members insisted that she come in. She really did not want come to the hospital. She is scheduled for paracentesis and consultation at [facility] tomorrow. She has been going down the review 2 weeks for paracentesis since about September according to her . She denies any abdominal pain. She notes that she has not been eating or drinking very much, does not think she is probably kept up with fluids. She has not had fevers, cough, chest pain, lower extremity swelling or pain, shortness of breath. In fact she really denies any symptoms at all, but does note that she has been more tired since yesterday. They wonder if this is just related to needing her paracentesis, and they were concerned about getting down to [facility] tomorrow because snow is expected. Related Data Home Medications Medication Instructions Recorded Confirmed furosemide 40 mg tablet 40 mg PO DAILY 11/16/23 12/02/23 nicotine (polacrilex) 2 mg buccal 2 mg PO PRN 11/16/23 11/16/23 lozenge nicotine 14 mg/24 hr daily 1 patch topical DAILY 11/16/23 12/02/23 transdermal patch spironolactone 100 mg tablet 100 mg PO DAILY 11/16/23 12/02/23 trazodone 50 mg tablet 50 mg PO QPM 11/16/23 12/02/23 Allergies Allergy/AdvReac Type Severity Reaction Status Date / Time No Known Drug Allergies Allergy Verified 11/16/23 13:19 Review of Systems Status of ROS: Reports: 10 or more systems reviewed and unremarkable except as noted in History and below [facility] Medical History Tobacco abuse ?Z72.0 - Tobacco use (ICD-10) Elevated LFTs ?R79.89 - Other specified abnormal findings of blood chemistry (ICD-10) Primary hypertension ?I10 - Essential (primary) hypertension (ICD-10) Health care directive on file ?Z78.9 - Other specified health status (ICD-10) Alcohol abuse ?F10.10 - Alcohol abuse, uncomplicated (ICD-10) Depression ?F32.A - Depression, unspecified (ICD-10) Tubular adenoma of colon ?D12.6 - Benign neoplasm of colon, unspecified (ICD-10) Surgical History History of breast biopsy ?Z98.890 - Other specified postprocedural states (ICD-10) History of abdominal hysterectomy ?Z90.710 - Acquired absence of both cervix and uterus (ICD-10) Family History Father High blood pressure Mother High blood pressure Social History Narrative: patient admits to smoking and drinking alcohol. 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 Reviewed for scanning to medical record on 04/17/2020 What is your current living situation?: I presently have a place to live Problems where you live: no known problems In the past 12 months, utilities in danger of being shut off: no In past 12 months, lack of transportation kept you from medical appts, meetings, work, or getting things needed for daily living: no In the past 12 mos, have been you worried that your food would run out before you had money to buy more?: never true In the past 12 mos, the food you bought just didn't last and you didn't have money to buy more?: never true Smoking Status: Current every day smoker What tobacco products do you use: cigarettes Do you use any of these nicotine containing products: None Second hand tobacco smoke exposure: No How often do you have a drink containing alcohol: 4 or more times a week How many standard drinks containing alcohol do you have on a typical day: 1 or 2 How often do you have six or more drinks on one occasion: Never AUDIT-C Alcohol total score: 4 Non-prescribed substance use: marijuana (any form) How often does anyone, including family, friends and others, physically hurt you: never How often does anyone, including family, friends and others, insult or talk down to you: never How often does anyone, including family, friends and others, threaten you with harm: never How often does anyone, including family, friends and others, scream or curse at you: never Little interest or pleasure in doing things: several days Feeling down, depressed, or hopeless: several days service: No Exam Narrative: Exam Narrative: Vital signs as noted above. In general, an alert, nontoxic woman, thin, looks fatigued. Head: Normocephalic, atraumatic. Eyes: Pupils are equal reactive. Extraocular movements are full. Conjunctivae are normal. ENT: Mucous membranes are moist. Throat is normal. Neck: Supple without lymphadenopathy. Heart: Regular rate and rhythm. No murmur or rub. Lungs: Clear bilaterally. No increased work of breathing, crackles or wheezes. Abdomen: Nontender to palpation. Significant ascites. Extremities: Well perfused. No edema. No calf tenderness. Pulses intact. Neurologic: Patient is alert and oriented to person and place. Speech is fluent. Face is symmetric. Moves all extremities equally. Affect: Normal. Skin: Warm and dry. Well perfused. Skin looks tanned, unclear whether there is a component of jaundice. No significant bruising. Const: Vital Signs, click to edit/add: Vital Signs - 24 hr 12/02/23 10:30 12/02/23 12:01 12/02/23 12:31 Temperature 97.9 F Pulse Rate 93 88 Pulse Rate [Pulse Oximeter] 103 H Respiratory Rate 18 14 12 Blood Pressure 112/60 112/64 Blood Pressure [Ri ght Upper Arm] 107/46 L Pulse Oximetry 100 98 97 Oxygen Delivery Me thod Room Air 12/02/23 13:01 12/02/23 13:31 12/02/23 14:01 Temperature Pulse Rate 87 90 98 Pulse Rate [Pulse Oximeter] Respiratory Rate 14 12 14 Blood Pressure 105/43 L 94/41 L 103/42 L Blood Pressure [Ri ght Upper Arm] Pulse Oximetry 99 97 100 Oxygen Delivery Me thod 12/02/23 14:31 12/02/23 15:00 12/02/23 15:29 Temperature 98.0 F Pulse Rate 94 90 93 Pulse Rate [Pulse Oximeter] Respiratory Rate 12 14 12 Blood Pressure 103/45 L 100/43 L 100/43 L Blood Pressure [Ri ght Upper Arm] Pulse Oximetry 100 100 99 Oxygen Delivery Me thod 12/02/23 15:30 12/02/23 15:45 12/02/23 15:47 Temperature 97.8 F Pulse Rate 92 93 91 Pulse Rate [Pulse Oximeter] Respiratory Rate 12 14 Blood Pressure 102/39 L 102/39 L Blood Pressure [Ri ght Upper Arm] Pulse Oximetry 99 100 100 Oxygen Delivery Me thod 12/02/23 16:00 12/02/23 16:30 12/02/23 16:31 Temperature 98.7 F Pulse Rate 91 98 92 Pulse Rate [Pulse Oximeter] Respiratory Rate 12 14 12 Blood Pressure 101/44 L 106/45 L 106/45 L Blood Pressure [Ri ght Upper Arm] Pulse Oximetry 100 100 97 Oxygen Delivery Me thod 12/02/23 17:00 12/02/23 17:20 12/02/23 17:30 Temperature 97.7 F 98.2 F Pulse Rate 98 98 92 Pulse Rate [Pulse Oximeter] Respiratory Rate 14 14 14 Blood Pressure 120/58 L 120/52 L 114/63 Blood Pressure [Ri ght Upper Arm] Pulse Oximetry 97 99 98 Oxygen Delivery Me thod 12/02/23 17:31 12/02/23 17:50 12/02/23 18:01 Temperature 98.1 F Pulse Rate 95 93 93 Pulse Rate [Pulse Oximeter] Respiratory Rate 12 12 12 Blood Pressure 114/63 105/63 106/61 Blood Pressure [Ri ght Upper Arm] Pulse Oximetry 98 97 98 Oxygen Delivery Me thod 12/02/23 18:35 12/02/23 19:20 Temperature 98.2 F 98.2 F Pulse Rate 96 96 Pulse Rate [Pulse Oximeter] Respiratory Rate 14 12 Blood Pressure 111/64 119/56 L Blood Pressure [Ri ght Upper Arm] Pulse Oximetry 97 98 Oxygen Delivery Me thod Documenting provider has reviewed patient's vital signs: yes Course Course ED Course: Patient with underlying cirrhosis and significant ascites brought in by family for fatigue. Nothing aside from ascites really on exam. Lungs are clear, vital signs are notable for normal O2 sats, she has mild tachycardia with a pulse of 103 and blood pressure is 107 systolic, going to give her just 250 mL bolus as she says she has not been keeping up with fluids, appears as if she is somewhat hypovolemic aside from her ascites. Will check labs, diagnostic considerations include infection including spontaneous bacterial peritonitis, UTI, pneumonia etcetera, metabolic derangements, dehydration, anemia, among others. Labs most notable for sodium of 120 and hemoglobin of 4.9. Last hemoglobin here was 9.6 in September. Her sodium was 135 in September but I did talk with Dr. Brunner, on-call for GI at [facility]. Sodium was 128 about a month ago there. Prior to that it was 125 in 126, so it looks as if she does run a little low chronically now. She continues to deny any symptoms of GI bleeding such as black or bloody stools, hematemesis. No known varices, she is scheduled to have an endoscopy on the at [facility]. She declines rectal exam at the moment. Her white blood cell count is mildly elevated at 14, platelets are normal at 236. Other electrolytes show normal potassium, CO2 19, BUN of 43 normal creatinine. Blood sugar is 93, calcium is 8. Total bilirubin is 2.1, direct is 0.9. AST of 88, ALT normal, alk-phos normal. Troponin is less than 0.01. EKG on arrival showed a sinus tachycardia, ventricular rate of 102. No acute ST segment changes. Unremarkable T-waves. [facility] doctor recommended admission here for transfusion, correction of her sodium, paracentesis. Return to [facility] next week for endoscopy as planned. Tentatively plan on a formal paracentesis to obtain ascites fluid for testing given that suspicion for SBP as the cause of her fatigue is relatively low. This is likely explained by her significant anemia. Type and cross ordered, will start transfusion of 1 unit of packed red cells here, discussed risks and benefits, she agreed to proceed. After conversation with hospitalist, and review of records from [facility] which indicate that she does have documented esophageal varices, they feel that she would be best served at a center with GI in case she has significant bleeding requires emergent management. It did take a number of hours to get blood for her, which apparently had to do with staffing in the lab. She does now have a unit of packed red cells hanging. I gave her octreotide, Rocephin, pantoprazole and Zofran. She did have a small emesis here with some brown streaked secretions and a few small clots. She is hemodynamically stable, systolic blood pressure remains on the low side but tachycardia is improved. She continues to deny abdominal pain. With regard to her sodium, she did have 250 mL of normal saline on arrival. Both of her IVs are currently in use with octreotide and blood products. [facility] reported that sodium has been in the 125-128 range over the past couple of months, so I think she has a degree of chronic hyponatremia, she is not severely symptomatic from this. I do think given her history of alcoholism and cirrhosis that the sodium needs to be treated but at this time and prioritizing blood and octreotide. 3% saline ordered at 15 mL/hour for 2 hours on completion of her 1st unit of blood. Patient had a brief period of 3% saline but then we did start a 2nd unit of blood. I rechecked labs, hemoglobin is up to 7.6, sodium is 122. Medics are here to take her to [facility]. She is feeling somewhat improved, no further vomiting, systolic blood pressure 118. Vital Signs Vital signs: Initial Vital Signs Temperature 97.9 F 12/02/23 10:30 Temperature Source Temporal Artery Scan 12/02/23 10:30 Pulse Rate 103 H 12/02/23 10:30 Pulse Rhythm Regular 12/02/23 10:30 Respiratory Rate 18 12/02/23 10:30 Blood Pressure 107/46 L 12/02/23 10:30 Blood Pressure Mean 66 L 12/02/23 10:30 Blood Pressure Position Supine 12/02/23 10:30 Pulse Oximetry 100 12/02/23 10:30 Oxygen Delivery Method Room Air 12/02/23 10:30 Vital Signs Temperature 97.9 F 12/02/23 10:30 Pulse Rate 103 H 12/02/23 10:30 Respiratory Rate 18 12/02/23 10:30 Blood Pressure 107/46 L 12/02/23 10:30 Pulse Oximetry 100 12/02/23 10:30 Oxygen Delivery Method Room Air 12/02/23 10:30 Temperature 98.2 F 12/02/23 19:20 Pulse Rate 96 12/02/23 19:20 Respiratory Rate 12 12/02/23 19:20 Blood Pressure 119/56 L 12/02/23 19:20 Pulse Oximetry 98 12/02/23 19:20 Oxygen Delivery Method Room Air 12/02/23 10:30 Medications Administered Medications: Generic Name Dose Route Start Last Admin Trade Name Lul PRN Reason Stop Dose Admin Octreotide Acetate 500 mcg/ 102.5 mls @ 10 mls/hr 12/02/23 15:17 12/02/23 16:25 Sodium Chloride IV 12/03/23 01:31 10 mls/hr ONCE ONE Administration Sodium Chloride 500 mls @ 15 mls/hr 12/02/23 16:00 12/02/23 17:35 3 % Sodium Chloride 500 Ml IV 0 mls/hr .Q24H MATY Infusion Discontinued Medications Generic Name Dose Route Start Last Admin Trade Name Lul PRN Reason Stop Dose Admin Sodium Chloride 250 mls @ 250 mls/hr 12/02/23 10:50 12/02/23 12:49 0.9 % Sodium Chloride 250 Ml IV 12/02/23 11:49 Infused .Q1H ONE Infusion Ceftriaxone Sodium 1 gm/ 100 mls @ 200 mls/hr 12/02/23 14:45 12/02/23 16:00 Sodium Chloride IVPB 12/02/23 15:14 Infused ONCE ONE Infusion Octreotide Acetate 50 mcg 12/02/23 14:45 12/02/23 15:03 Octreotide Acetate 100 Mcg/Ml Inj IV 12/02/23 14:46 50 mcg ONCE ONE Administration Ondansetron HCl 4 mg 12/02/23 15:17 12/02/23 15:40 Ondansetron 2 Mg/Ml Inj IVP 12/02/23 15:18 4 mg ONCE ONE Administration Pantoprazole Sodium 40 mg 12/02/23 15:29 12/02/23 15:40 Pantoprazole Sodium 40 Mg Inj IVP 12/02/23 15:30 40 mg ONCE ONE Administration Medical Decision Making Lab Data Labs: Lab Results 12/02/23 12/02/23 12/02/23 Range/Units 10:45 11:04 11:40 WBC 14.10 H (4.50-11.00) K/uL RBC 1.41 L (4.00-5.20) m/uL Hgb 4.9 L* (12.0-16.0) gm/dL Hct 14.8 L (33.0-51.0) % MCV 105 H (80-100) fL MCH 35 H (26-34) pg MCHC 33 (32-36) gm/dL RDW Coeff of Katt 16.6 H (11.5-15.5) % Plt Count 236 (140-440) K/uL Neut % (Auto) 72.8 H (42.0-72.0) % Lymph % (Auto) 18.5 L (20-44) % [place] % (Auto) 7.6 (0.0-11.0) % Eos % (Auto) 0.5 (0.0-7.0) % Baso % (Auto) 0.2 (0.0-3.0) % Neut # (Auto) 10.30 H (1.7-7.0) K/uL Lymph # (Auto) 2.60 (0.90-2.90) K/uL [place] # (Auto) 1.10 H (0.00-0.90) K/UL Eos # (Auto) 0.10 (0.00-0.50) K/uL Baso # (Auto) 0.00 (0.00-0.30) K/uL Abs Immat Gran (auto) 0.10 (0.00-0.30) K/uL Imm/Tot Granulo (auto) 0.4 % INR 1.35 H (0.91-1.10) APTT 47 H (23-33) Seconds Sodium 120 L* (135-149) mmol/L Potassium 4.6 (3.6-5.1) mmol/L Chloride 95 L (96-114) mmol/L Carbon Dioxide 19 L (20-32) mmol/L Anion Gap 6 L (7-15) mEq/L BUN 43 H (7-30) mg/dL Creatinine 0.6 (0.5-1.5) mg/dL Estimated Creat Clear 41.23 Estimated GFR 101 ml/min Glucose 93 (60-115) mg/dL Lactate 1.7 (0.5-1.9) mmol/L Calcium 8.0 L (8.4-10.6) mg/dL Total Bilirubin 2.1 H (0.1-1.5) mg/dL Direct Bilirubin 0.9 H (0.0-0.5) mg/dL AST 88 H (12-35) U/L ALT 33 (4-35) U/L Alkaline Phosphatase 140 (40-150) U/L Troponin I < 0.01 L (0.01-0.04) ng/mL Total Protein 7.0 (6.0-8.3) g/dL Albumin 2.9 L (3.3-5.0) g/dL Lipase 254 (23-300) U/L TSH 2.580 (0.270-4.200) uIU/mL SARS-CoV-2 (PCR) Negative SARS-CoV-2 (Negative) Influenza Type A (PCR) Negative PCR FLU A (Negative) Influenza Type B (PCR) Negative PCR FLU B (Negative) RSV (PCR) Negative PCR RSV (Negative) Blood Type A Positive Antibody Screen NEGATIVE Crossmatch (AHG) See Detail 12/02/23 12/02/23 Range/Units 16:20 19:06 WBC 11.27 H (4.50-11.00) K/uL RBC 1.26 L (4.00-5.20) m/uL Hgb 4.4 L* 7.6 L* (12.0-16.0) gm/dL Hct 13.0 L (33.0-51.0) % MCV 103 H (80-100) fL MCH 35 H (26-34) pg MCHC 34 (32-36) gm/dL RDW Coeff of Katt 16.3 H (11.5-15.5) % Plt Count 212 (140-440) K/uL Neut % (Auto) 69.6 (42.0-72.0) % Lymph % (Auto) 21.4 (20-44) % [place] % (Auto) 8.1 (0.0-11.0) % Eos % (Auto) 0.4 (0.0-7.0) % Baso % (Auto) 0.3 (0.0-3.0) % Neut # (Auto) 7.80 H (1.7-7.0) K/uL Lymph # (Auto) 2.40 (0.90-2.90) K/uL [place] # (Auto) 0.90 (0.00-0.90) K/UL Eos # (Auto) 0.00 (0.00-0.50) K/uL Baso # (Auto) 0.00 (0.00-0.30) K/uL Abs Immat Gran (auto) 0.00 (0.00-0.30) K/uL Imm/Tot Granulo (auto) 0.2 % INR (0.91-1.10) APTT (23-33) Seconds Sodium 122 L* (135-149) mmol/L Potassium 4.9 (3.6-5.1) mmol/L Chloride 95 L (96-114) mmol/L Carbon Dioxide 22 (20-32) mmol/L Anion Gap 5 L (7-15) mEq/L BUN 39 H (7-30) mg/dL Creatinine 0.6 (0.5-1.5) mg/dL Estimated Creat Clear 41.23 Estimated GFR 101 ml/min Glucose 96 (60-115) mg/dL Lactate (0.5-1.9) mmol/L Calcium 7.9 L (8.4-10.6) mg/dL Total Bilirubin (0.1-1.5) mg/dL Direct Bilirubin (0.0-0.5) mg/dL AST (12-35) U/L ALT (4-35) U/L Alkaline Phosphatase (40-150) U/L Troponin I (0.01-0.04) ng/mL Total Protein (6.0-8.3) g/dL Albumin (3.3-5.0) g/dL Lipase (23-300) U/L TSH (0.270-4.200) uIU/mL SARS-CoV-2 (PCR) (Negative) Influenza Type A (PCR) (Negative) Influenza Type B (PCR) (Negative) RSV (PCR) (Negative) Blood Type Antibody Screen Crossmatch (AHG) Discharge Plan Discharge Clinical Impression: Ascites, Anemia, Hyponatremia, Cirrhosis of liver Patient Disposition: [facility] Condition: Stable Prescriptions: No Action spironolactone 100 mg tablet 100 mg PO DAILY trazodone 50 mg tablet 50 mg PO QPM furosemide 40 mg tablet 40 mg PO DAILY nicotine (polacrilex) 2 mg lozenge 2 mg PO PRN nicotine 14 mg/24 hr patch 24 hour 1 patch topical DAILY Stand Alone Forms: MyHealth Info Instructions
[2023-12-02 11:46] LABS: Albumin* 2.9 g/dL (3.3-5.0); Chloride* 95 mmol/L (96-114)
[2023-12-02 11:47] LABS: Potassium* 4.6 mmol/L (3.6-5.1)
[2023-12-02 11:48] LABS: Basophils Percent Auto 0.2 % (0.0-3.0); Eosinophils Percent Auto 0.5 % (0.0-7.0); Hematocrit 14.8 % (33.0-51.0); Immature Granulocytes Pct Auto 0.4 %; Lymphocytes Percent Auto 18.5 % (20-44); Mean Corpuscular HGB Conc 33 gm/dL (32-36); Mean Corpuscular Hemoglobin 35 pg (26-34); Mean Corpuscular Volume 105 fL (80-100); Monocytes Percent Auto 7.6 % (0.0-11.0); Neutrophils Percent Auto 72.8 % (42.0-72.0); Platelet Count* 236 K/uL (140-440); RDW Coefficient of Variation % 16.6 % (11.5-15.5); Red Blood Count 1.41 m/uL (4.00-5.20)
[2023-12-02 11:49] LABS: Anion Gap 6 mEq/L (7-15); Bilirubin Direct* 0.9 mg/dL (0.0-0.5); Bilirubin Total* 2.1 mg/dL (0.1-1.5); Carbon Dioxide* 19 mmol/L (20-32); Creatinine* 0.6 mg/dL (0.5-1.5); Est. Creatinine Clearance* 41.23; Estimated Glomerular Filt Rate 101 ml/min
[2023-12-02] MEDS: 0.9 % SODIUM CHLORIDE 250 ml 250 ML IV (11:49)
[2023-12-02 11:50] LABS: Alanine Aminotransferase* 33 U/L (4-35); Alkaline Phosphatase* 140 U/L (40-150); Aspartate Amino Transferase* 88 U/L (12-35); Blood Urea Nitrogen* 43 mg/dL (7-30); Glucose* 93 mg/dL (60-115); Lipase* 254 U/L (23-300)
[2023-12-02 11:58] LABS: Hemoglobin* 4.9 gm/dL (12.0-16.0); Slide Review Reflex No
[2023-12-02 11:59] LABS: Sodium* 120 mmol/L (135-149)
[2023-12-02 12:02] LABS: Troponin I* < 0.01 ng/mL (0.01-0.04)
[2023-12-02 14:39] LABS: INR 1.35 (0.91-1.10); Prothrombin Time 17.6 Seconds
[2023-12-02 14:41] LABS: Partial Thromboplastin Time* 47 Seconds (23-33)
[2023-12-02] MEDS: cefTRIAXone 1 GM in 0.9 % SODIUM CHLORIDE Mini-bag 100 ML IVPB (15:03)
[2023-12-02] MEDS: ONDANSETRON 2 MG/ML inj 4 MG IVP (15:40)
[2023-12-02] MEDS: PANTOPRAZOLE SODIUM 40 MG INJ IVP (15:40)
--- NOTE | 2023-12-02 15:53 | ED_ITS ---
HPI - General Adult General Chief complaint: Weakness Stated complaint: Sepsis Time Seen by Provider: 12/02/23 10:37 Source: patient, family, RN notes reviewed and old records reviewed Mode of arrival: ambulatory Limitations: no limitations Related Data Home Medications Medication Instructions Recorded Confirmed furosemide 40 mg tablet 40 mg PO DAILY 11/16/23 12/02/23 nicotine (polacrilex) 2 mg buccal 2 mg PO PRN 11/16/23 11/16/23 lozenge nicotine 14 mg/24 hr daily 1 patch topical DAILY 11/16/23 12/02/23 transdermal patch spironolactone 100 mg tablet 100 mg PO DAILY 11/16/23 12/02/23 trazodone 50 mg tablet 50 mg PO QPM 11/16/23 12/02/23 Allergies Allergy/AdvReac Type Severity Reaction Status Date / Time No Known Drug Allergies Allergy Verified 11/16/23 13:19 [facility] Medical History Tobacco abuse ?Z72.0 - Tobacco use (ICD-10) Elevated LFTs ?R79.89 - Other specified abnormal findings of blood chemistry (ICD-10) Primary hypertension ?I10 - Essential (primary) hypertension (ICD-10) Health care directive on file ?Z78.9 - Other specified health status (ICD-10) Alcohol abuse ?F10.10 - Alcohol abuse, uncomplicated (ICD-10) Depression ?F32.A - Depression, unspecified (ICD-10) Tubular adenoma of colon ?D12.6 - Benign neoplasm of colon, unspecified (ICD-10) Surgical History History of breast biopsy ?Z98.890 - Other specified postprocedural states (ICD-10) History of abdominal hysterectomy ?Z90.710 - Acquired absence of both cervix and uterus (ICD-10) Family History Father High blood pressure Mother High blood pressure Social History Narrative: patient admits to smoking and drinking alcohol. 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 Reviewed for scanning to medical record on 04/17/2020 What is your current living situation?: I presently have a place to live Problems where you live: no known problems In the past 12 months, utilities in danger of being shut off: no In past 12 months, lack of transportation kept you from medical appts, meetings, work, or getting things needed for daily living: no In the past 12 mos, have been you worried that your food would run out before you had money to buy more?: never true In the past 12 mos, the food you bought just didn't last and you didn't have money to buy more?: never true Smoking Status: Current every day smoker What tobacco products do you use: cigarettes Do you use any of these nicotine containing products: None Second hand tobacco smoke exposure: No How often do you have a drink containing alcohol: 4 or more times a week How many standard drinks containing alcohol do you have on a typical day: 1 or 2 How often do you have six or more drinks on one occasion: Never AUDIT-C Alcohol total score: 4 Non-prescribed substance use: marijuana (any form) How often does anyone, including family, friends and others, physically hurt you : never How often does anyone, including family, friends and others, insult or talk down to you: never How often does anyone, including family, friends and others, threaten you with harm: never How often does anyone, including family, friends and others, scream or curse at you: never Little interest or pleasure in doing things: several days Feeling down, depressed, or hopeless: several days service: No Exam Const: Vital Signs, click to edit/add: Vital Signs - 24 hr 12/02/23 10:30 12/02/23 12:01 12/02/23 12:31 Temperature 97.9 F Pulse Rate 93 88 Pulse Rate [Pulse Oximeter] 103 H Respiratory Rate 18 14 12 Blood Pressure 112/60 112/64 Blood Pressure [Ri ght Upper Arm] 107/46 L Pulse Oximetry 100 98 97 Oxygen Delivery Me thod Room Air 12/02/23 13:01 12/02/23 13:31 12/02/23 15:29 Temperature 98.0 F Pulse Rate 87 90 93 Pulse Rate [Pulse Oximeter] Respiratory Rate 14 12 12 Blood Pressure 105/43 L 94/41 L 100/43 L Blood Pressure [Ri ght Upper Arm] Pulse Oximetry 99 97 99 Oxygen Delivery Me thod 12/02/23 15:45 Temperature 97.8 F Pulse Rate 93 Pulse Rate [Pulse Oximeter] Respiratory Rate 12 Blood Pressure 102/39 L Blood Pressure [Ri t Upper Arm] Pulse Oximetry 100 Oxygen Delivery Me thod Course Vital Signs Vital signs: Initial Vital Signs Temperature 97.9 F 12/02/23 10:30 Temperature Source Temporal Artery Scan 12/02/23 10:30 Pulse Rate 103 H 12/02/23 10:30 Pulse Rhythm Regular 12/02/23 10:30 Respiratory Rate 18 12/02/23 10:30 Blood Pressure 107/46 L 12/02/23 10:30 Blood Pressure Mean 66 L 12/02/23 10:30 Blood Pressure Position Supine 12/02/23 10:30 Pulse Oximetry 100 12/02/23 10:30 Oxygen Delivery Method Room Air 12/02/23 10:30 Vital Signs Temperature 97.9 F 12/02/23 10:30 Pulse Rate 103 H 12/02/23 10:30 Respiratory Rate 18 12/02/23 10:30 Blood Pressure 107/46 L 12/02/23 10:30 Pulse Oximetry 100 12/02/23 10:30 Oxygen Delivery Method Room Air 12/02/23 10:30 Temperature 97.8 F 12/02/23 15:45 Pulse Rate 93 12/02/23 15:45 Respiratory Rate 12 12/02/23 15:45 Blood Pressure 102/39 L 12/02/23 15:45 Pulse Oximetry 100 12/02/23 15:45 Oxygen Delivery Method Room Air 12/02/23 10:30 Medications Administered Medications: Discontinued Medications Generic Name Dose Route Start Last Admin Trade Name Freq PRN Reason Stop Dose Admin Sodium Chloride 250 mls @ 250 mls/hr 12/02/23 10:50 12/02/23 12:49 0.9 % Sodium Chloride 250 Ml IV 12/02/23 11:49 Infused .Q1H ONE Infusion Ceftriaxone Sodium 1 gm/ 100 mls @ 200 mls/hr 12/02/23 14:45 12/02/23 15:03 Sodium Chloride IVPB 12/02/23 15:14 200 mls/hr ONCE ONE Administration Octreotide Acetate 50 mcg 12/02/23 14:45 12/02/23 15:03 Octreotide Acetate 100 Mcg/Ml Inj IV 12/02/23 14:46 50 mcg ONCE ONE Administration Ondansetron HCl 4 mg 12/02/23 15:17 12/02/23 15:40 Ondansetron 2 Mg/Ml Inj IVP 12/02/23 15:18 4 mg ONCE ONE Administration Pantoprazole Sodium 40 mg 12/02/23 15:29 12/02/23 15:40 Pantoprazole Sodium 40 Mg Inj IVP 12/02/23 15:30 40 mg ONCE ONE Administration Medical Decision Making Lab Data Labs: Lab Results 12/02/23 12/02/23 12/02/23 Range/Units 10:45 11:04 11:40 WBC 14.10 H (4.50-11.00) K/uL RBC 1.41 L (4.00-5.20) m/uL Hgb 4.9 L* (12.0-16.0) gm/dL Hct 14.8 L (33.0-51.0) % MCV 105 H (80-100) fL MCH 35 H (26-34) pg MCHC 33 (32-36) gm/dL RDW Coeff of Katt 16.6 H (11.5-15.5) % Plt Count 236 (140-440) K/uL Neut % (Auto) 72.8 H (42.0-72.0) % Lymph % (Auto) 18.5 L (20-44) % Dickson % (Auto) 7.6 (0.0-11.0) % Eos % (Auto) 0.5 (0.0-7.0) % Baso % (Auto) 0.2 (0.0-3.0) % Neut # (Auto) 10.30 H (1.7-7.0) K/uL Lymph # (Auto) 2.60 (0.90-2.90) K/uL Dickson # (Auto) 1.10 H (0.00-0.90) K/UL Eos # (Auto) 0.10 (0.00-0.50) K/uL Baso # (Auto) 0.00 (0.00-0.30) K/uL Abs Immat Gran (auto) 0.10 (0.00-0.30) K/uL Imm/Tot Granulo (auto) 0.4 % INR 1.35 H (0.91-1.10) APTT 47 H (23-33) Seconds Sodium 120 L* (135-149) mmol/L Potassium 4.6 (3.6-5.1) mmol/L Chloride 95 L (96-114) mmol/L Carbon Dioxide 19 L (20-32) mmol/L Anion Gap 6 L (7-15) mEq/L BUN 43 H (7-30) mg/dL Creatinine 0.6 (0.5-1.5) mg/dL Estimated Creat Clear 41.23 Estimated GFR 101 ml/min Glucose 93 (60-115) mg/dL Lactate 1.7 (0.5-1.9) mmol/L Calcium 8.0 L (8.4-10.6) mg/dL Total Bilirubin 2.1 H (0.1-1.5) mg/dL Direct Bilirubin 0.9 H (0.0-0.5) mg/dL AST 88 H (12-35) U/L ALT 33 (4-35) U/L Alkaline Phosphatase 140 (40-150) U/L Troponin I < 0.01 L (0.01-0.04) ng/mL Total Protein 7.0 (6.0-8.3) g/dL Albumin 2.9 L (3.3-5.0) g/dL Lipase 254 (23-300) U/L TSH 2.580 (0.270-4.200) uIU/mL SARS-CoV-2 (PCR) Negative SARS-CoV-2 (Negative) Influenza Type A (PCR) Negative PCR FLU A (Negative) Influenza Type B (PCR) Negative PCR FLU B (Negative) RSV (PCR) Negative PCR RSV (Negative) Blood Type A Positive Antibody Screen NEGATIVE Crossmatch (AHG) See Detail Discharge Plan Discharge Clinical Impression: Ascites, Anemia, Hyponatremia, Cirrhosis of liver Patient Disposition: Admitted As Observation Condition: Stable
[2023-12-02 16:26] LABS: Basophils Percent Auto 0.3 % (0.0-3.0)
[2023-12-02 16:27] LABS: White Blood Count* 11.27 K/uL (4.50-11.00)
[2023-12-02 16:28] LABS: Eosinophils Percent Auto 0.4 % (0.0-7.0); Hemoglobin* 4.4 gm/dL (12.0-16.0); Immature Granulocytes Pct Auto 0.2 %; Lymphocytes Percent Auto 21.4 % (20-44); Mean Corpuscular HGB Conc 34 gm/dL (32-36); Mean Corpuscular Hemoglobin 35 pg (26-34); Mean Corpuscular Volume 103 fL (80-100); Monocytes Percent Auto 8.1 % (0.0-11.0); Neutrophils Percent Auto 69.6 % (42.0-72.0); Platelet Count* 212 K/uL (140-440); RDW Coefficient of Variation % 16.3 % (11.5-15.5); Red Blood Count 1.26 m/uL (4.00-5.20)
[2023-12-02 16:29] LABS: Slide Review Reflex No
[2023-12-02 19:32] LABS: Chloride* 95 mmol/L (96-114)
[2023-12-02 19:33] LABS: Hemoglobin* 7.6 gm/dL (12.0-16.0); Potassium* 4.9 mmol/L (3.6-5.1)
[2023-12-02 19:35] LABS: Anion Gap 5 mEq/L (7-15); Blood Urea Nitrogen* 39 mg/dL (7-30); Carbon Dioxide* 22 mmol/L (20-32); Creatinine* 0.6 mg/dL (0.5-1.5); Est. Creatinine Clearance* 41.23; Estimated Glomerular Filt Rate 101 ml/min
[2023-12-02 19:36] LABS: Calcium* 7.9 mg/dL (8.4-10.6); Glucose* 96 mg/dL (60-115)
[2023-12-02 19:40] LABS: Sodium* 122 mmol/L (135-149)
== END 2023-12-02 20:00 | disposition short-term general hospital (02) ==
PROVIDERS: Emergency Provider Emergency Medicine; PCP Family Medicine
DX: K74.60 Unspecified cirrhosis of liver (principal); R18.8 Other ascites; E87.1 Hypo-osmolality and hyponatremia
CPT/HCPCS: 36415; 36430; 80048; 80076; 81001; 83605; 83690; 84443; 84484; 85018; 85025; 85610; 85730; 86850; 86900; 86901; 86922; 87040; 87631; 93005; 96365; 96375; 99285; 99291; C9113; J0696; J2354; J2405; J7050; J7131; P9016

== ENCOUNTER 2023-12-02 19:48 | Outpatient (CLI) | payer BC, SELFPAY | END 2023-12-02 19:49 | disposition home or self-care (01) | LOC: AMB 12-07 00:25 | PROVIDERS: PCP Family Medicine; Visit Provider Emergency Medicine | DX: K92.2 Gastrointestinal hemorrhage, unspecified (principal); R10.9 Unspecified abdominal pain | CPT/HCPCS: A0425; A0434 ==

== ENCOUNTER 2023-12-23 14:15 | Outpatient (CLI) | payer BC, SELFPAY ==
--- OUTSIDE RECORDS SUMMARY | 2023-12-23 14:20 | XMS_ITS | Clinical Summary ---
Author Name Unknown Organization [facility] Address [address] [place] [address] Care Team Providers Care Housekeeper/Laundry Assistant Name Role Phone Elsewhere, Pcp Primary Care Provider Unavailabl e Source Comments Patient records contain information from all sites at [facility]. For routine questions regarding patient records, call [phone] during business hours, M-F 8:00 AM - 5:00 PM Central Time. Record requests for emergency care only can be directed to [phone] at any time.[facility] Allergies No known active allergies Medications Medication Sig Dispensed Refills Start Date End Date Status acetaminophen 650 mg/20.3 mL suspension Take 650 mg by mouth every 4 (four) hours as needed (for pain). No more than 2000 mg in 24 hours 0 11/08/2014 Active spironolactone (ALDACTONE) 100 mg tablet Take 1 tablet (100 mg total) by mouth daily. 30 tablet 2 11/22/2023 02/20/20 24 Active Additional Information Patient taking differently: 50 mgoral Daily, Reported on 12/07/2023 furosemide (LASIX) 40 mg tablet Take 1 tablet (40 mg total) by mouth daily. 30 tablet 2 11/22/2023 02/20/20 24 Active Additional Information Patient taking differently: 20 mgoral Daily, Reported on 12/07/2023 traZODone (DESYREL) 50 mg tablet Take 1 tablet (50 mg total) by mouth at bedtime. 30 tablet 0 11/22/2023 Active pantoprazole (PROTONIX) 40 mg EC tablet Take 40 mg by mouth 2 (two) times a day before breakfast and dinner. 0 12/06/2023 Active lactulose (CHRONULAC) 10 gram/15 mL solution Take 30 mL (20 g total) by mouth 2 (two) times a day. Take and titrate to goal 2-3 loose bowel movements daily. 946 mL 2 12/09/2023 Active rifAXIMin (XIFAXAN) 550 mg tablet Take 1 tablet (550 mg total) by mouth 2 (two) times a day. 60 tablet 2 12/09/2023 03/08/20 24 Active varenicline (CHANTIX RADHIKA) 0.5 mg (11)- 1 mg (42) tabletIndicatio ns:Nicotine Dependence Cigarettes Use as directed on package instructions, try to quit smoking after 1 week. 53 tablet 0 10/28/2023 12/07/19 24 Discontinued(The rapy completed) varenicline (CHANTIX) 1 mg tabletIndicatio ns:Nicotine Dependence Cigarettes Take 1 tablet (1 mg total) by mouth 2 (two) times a day. Take with full glass of water. 60 tablet 5 10/28/2023 12/08/19 24 Discontinued nicotine polacrilex (NICORETTE) 2 mg lozengeIndicati ons:Nicotine Dependence Cigarettes Apply 1 lozenge (2 mg total) to cheek as needed for smoking cessation. One lozenge every 1-2 hours as needed (maximum 20 lozenges per day) 100 each 3 10/28/2023 11/27/19 24 nicotine (Nicoderm CQ) 7 mg/[address] 1 patch on the skin daily. Apply 14 mg patch daily for four to six weeks, then taper to 7 mg for two to six weeks until off. 14 patch 5 11/11/2023 12/08/19 24 Discontinued nicotine (NICODERM CQ) 14 mg/24 hr patch Apply 14 mg patch daily for four to six weeks, then taper to 7 mg for two to six weeks until off. 14 patch 3 11/11/2023 12/08/19 24 Discontinued Active Problems Problem Noted Date Diagnosed Date Alcohol Moderate Or Severe U se Disorder (Dependence) Uncomplicated 10/20/2023 Alcoholic Cirrhosis Of Liver With Ascites 2023 Encounters Date Type Department Care Team Description 12/21/2023 Clinical Communication [facility] [place], [place] [address] [place] [address] Katja Umana M.D. 12/20/2023 2:00 PM CDT Virtual Visit Department of Nicotine Dependence, [facility] in [place], [place] [address] [place] [address] Sudha Bernstein M.A., DonnS.W., M.S.W. Nicotine Dependence Cigarettes With Withdrawal (Primary Dx) 12/20/2023 Orders Only Department of Nicotine Dependence, [facility] in [place], [place] [address] [place] [address] Sudha Bernstein M.A., Yesy.Olga.S.W., M.S.W. 12/20/2023 Clinical Communication Division of Gastroenterology in [place], [place] [address] [place] [phone] Katja Umana M.D. Scheduling 12/16/2023 9:34 AM CDT - 12/16/2023 11:22 AM CDT Hospital Encounter Department of Radiology, [facility] in [place], [place] [address] [place] [phone] Katja Umana M.D. Alcoholic Cirrhosis Of Liver With Ascites (HCC); Ascites Discharge Disposition: Home or Self Care 12/09/2023 4:30 PM CDT Office Visit [facility] in [place], [place] [address] [place] [phone] Katja Umana M.D. Olson, Jody C, M.D. Alcoholic Cirrhosis Of Liver With Ascites (HCC) (Primary Dx); Ascites; Sarcopenia 12/08/2023 10:30 AM CDT Comprehensive Visit Section of Infectious Diseases in [place], [place] [address] [place] [phone] Katja Umana M.D. Mackey, Callie A, APRN, C.N.P., D.N.P. 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 Order Request 11/19/2023 10:08 AM OPHTHALMIC MEDICAL TECHNOLOGIST - 11/19/2023 12:51 PM OPHTHALMIC MEDICAL TECHNOLOGIST Hospital Encounter Department of Radiology, [facility] in [place], [place] [address] [place] [phone] Felipe Morales M.D. Ascites Discharge Disposition: Home or Self Care 11/18/2023 11:00 AM OPHTHALMIC MEDICAL TECHNOLOGIST Virtual Visit Department of Nicotine Dependence, [place], [place] [address] [place] [phone] Sudha Bernstein M.A., Yesy.I.C.S.W., M.S.W. Nicotine Dependence Cigarettes With Withdrawal (Primary Dx) 11/18/2023 Orders Only Department of Nicotine Dependence, [facility] in [place], [place] [address] [place] [phone] Sudha Bernstein M.A., Yesy.I.C.S.W., M.S.W. 11/11/2023 11:00 AM OPHTHALMIC MEDICAL TECHNOLOGIST Virtual Visit Department of Nicotine Dependence, [facility] in [place], [place] [address] [place] [phone] Sudha Bernstein M.A., L.I.C.S.W., M.S.W. Nicotine Dependence Cigarettes With Withdrawal (Primary Dx) 11/11/2023 Orders Only Department of Nicotine Dependence, [facility] in [place], [place] [address] [place] [address] Sudha Bernstein M.A., L.I.C.S.W., M.S.W. 11/11/2023 Clinical Communication Department of Nicotine Dependence, [facility] in [place], [place] [address] [place] [address] Sudha Bernstein M.A., Yesy.KarrieC.S.W., M.S.W. NDC Med Request 11/05/2023 9:29 AM OPHTHALMIC MEDICAL TECHNOLOGIST - 11/05/2023 12:20 PM OPHTHALMIC MEDICAL TECHNOLOGIST Hospital Encounter Department of Radiology, [place], [place] [address] [place] [address] Felipe Morales M.D. Ascites Discharge Disposition: Home or Self Care 11/01/2023 12:28 PM OPHTHALMIC MEDICAL TECHNOLOGIST - 11/01/2023 11:59 PM OPHTHALMIC MEDICAL TECHNOLOGIST Hospital Encounter Department of Laboratory Medicine in [address] [phone] Katja Umana M.D. Alcoholic Cirrhosis Of Liver With Ascites (HCC) Discharge Disposition: Home or Self Care 10/28/2023 11:00 AM OPHTHALMIC MEDICAL TECHNOLOGIST Virtual Visit Department of Nicotine Dependence, [place], [place] [address] [place] [address] Romana Diane M.D., Ph.D. Sudha Bernstein M.A., Yesy.KarrieC.S.W., M.S.W. Nicotine Dependence Cigarettes 10/28/[address] [facility] in [place], [place] [address] [place] [address] Katja Umana M.D. Alcoholic Cirrhosis Of Liver With Ascites (HCC) (Primary Dx) 10/28/2023 Orders Only Department of Nicotine Dependence, [facility] in [place], [place] [address] [place] [address] Sudha Bernstein M.A., Yesy.I.C.S.W., M.S.W. 10/28/2023 Clinical Communication Department of Nicotine Dependence, [facility] in [place], [place] [address] [place] [address] Sudha Bernstein M.A., L.I.C.S.W., M.S.W. [facility] Med Request 10/27/2023 10:26 AM OPHTHALMIC MEDICAL TECHNOLOGIST - 10/27/2023 11:59 PM OPHTHALMIC MEDICAL TECHNOLOGIST Hospital Encounter Department of Laboratory Medicine in [address] [phone] Katja Umana M.D. Alcoholic Cirrhosis Of Liver With Ascites (HCC); Alcohol Moderate Or Severe Use Disorder (Dependence) Uncomplicated (HCC) Discharge Disposition: Home or Self Care 10/27/2023 10:26 AM OPHTHALMIC MEDICAL TECHNOLOGIST - 10/27/2023 11:59 PM OPHTHALMIC MEDICAL TECHNOLOGIST Hospital Encounter Department of Laboratory Medicine in [address] [phone] Romana Diane M.D., Ph.D. Alcohol Moderate Or Severe Use Disorder (Dependence) Uncomplicated (HCC) Discharge Disposition: Home or Self Care 10/24/2023 Clinical Communication Division of Gastroenterology in [address] [address] Katja Umana M.D. 10/22/2023 7:27 AM OPHTHALMIC MEDICAL TECHNOLOGIST - 10/22/2023 3:44 PM OPHTHALMIC MEDICAL TECHNOLOGIST Hospital Encounter Department of Radiology, [facility] in [address] [phone] Katja Umana M.D. Ascites Discharge Disposition: Home or Self Care 10/20/2023 1:00 PM OPHTHALMIC MEDICAL TECHNOLOGIST - 10/20/2023 11:59 PM OPHTHALMIC MEDICAL TECHNOLOGIST Hospital Encounter Department of Laboratory Medicine in [address] [address] Katja Umana M.D. Ascites Discharge Disposition: Home or Self Care 10/18/2023 Clinical Communication Division of Gastroenterology in [address] [phone] Katja Umana M.D. 10/15/2023 10:40 AM OPHTHALMIC MEDICAL TECHNOLOGIST Telemedicine Division of Gastroenterology in [address] [phone] Katja Umana M.D. Ascites (Primary Dx); Alcoholic Cirrhosis Of Liver With Ascites (HCC); Esophageal Varices Without Bleeding (HCC) 10/09/2023 Documentation Division of Gastroenterology in [place], [place] [address] [place] [address] Joy Rudd M.B.B.S. 10/09/2023 Nurse Triage Department of Family Medicine, [address] in [address] [place] [address] Katharine Domínguez R.N. Follow-up 10/08/2023 3:20 PM OPHTHALMIC MEDICAL TECHNOLOGIST Ancillary Procedure Department of Gastroenterology 10/08/2023 3:19 PM OPHTHALMIC MEDICAL TECHNOLOGIST Anesthesia Event Division of Gastroenterology in [address] [phone] Jeffy Moy, JAGUAR ORELLANA Brandon W, M.D. 10/08/2023 1:09 PM OPHTHALMIC MEDICAL TECHNOLOGIST - 10/08/2023 4:27 PM OPHTHALMIC MEDICAL TECHNOLOGIST Hospital Encounter Division of Gastroenterology in [place], [place] [address] [place] [phone] Katja Umana M.D. Alcoholic Cirrhosis Of Liver With Ascites (HCC) Discharge Disposition: Home or Self Care 10/08/2023 10:43 AM OPHTHALMIC MEDICAL TECHNOLOGIST - 10/08/2023 1:05 PM OPHTHALMIC MEDICAL TECHNOLOGIST Hospital Encounter Department of Radiology, [facility] in [address] [phone] Katja Umana M.D. Alcoholic Cirrhosis Of Liver With Ascites (HCC) Discharge Disposition: Home or Self Care 10/08/2023 Clinical Communication Division of Gastroenterology in [place], [place] [address] [place] [phone] Felipe Morales M.D. Hepatobiliary (Ascites elijah) 10/07/2023 9:50 AM OPHTHALMIC MEDICAL TECHNOLOGIST - 10/07/2023 11:59 PM OPHTHALMIC MEDICAL TECHNOLOGIST Hospital Encounter Department of Cardiovascular Diseases in [place], [place] [address] [place] [phone] Katja Umana M.D. Alcoholic Cirrhosis Of Liver With Ascites (HCC) Discharge Disposition: Home or Self Care 10/06/2023 2:00 PM OPHTHALMIC MEDICAL TECHNOLOGIST Education Division of Gastroenterology in [place], [place] [address] [place] [phone] Ebony Back M.D. Orth, Dianne M, R.N. Ascites; Alcoholic Cirrhosis Of Liver With Ascites (HCC) 10/06/2023 12:45 PM OPHTHALMIC MEDICAL TECHNOLOGIST - 10/06/2023 11:59 PM OPHTHALMIC MEDICAL TECHNOLOGIST Hospital Encounter Department of Radiology, [facility], in [place], [place] [address] [place] [address] Katja Umana M.D. Alcoholic Cirrhosis Of Liver With Ascites (HCC) Discharge Disposition: Home or Self Care 10/06/2023 11:00 AM OPHTHALMIC MEDICAL TECHNOLOGIST Comprehensive Visit [facility] in [place], [place] [address] [place] [phone] Ebony Back M.D. Leise, Michael D, M.D. Ascites; Alcoholic Cirrhosis Of Liver With Ascites (HCC) 10/05/2023 Orders Only Department of Oncology in [place], [place] [address] [place] [phone] Ebony Back M.D. Ascites (Primary Dx); Alcoholic Cirrhosis Of Liver With Ascites (HCC) from Last 3 Months Immunizations Name Administration Dates Next Due HepB Adult (HEPLISAV-B) 12/08/2023 PCV20 12/08/2023 Rabies (Imovax) 12/09/2020,11/14/2020 Rabies (Rabavert) 12/09/2020,11/14/2020 Tdap 08/03/2017 influenza vaccine quad (FLUZ ONE/FLUARIX) (6 months and older)(PF) 07/13/2019,09/19/2018 Family History Medical History Relation Name Comments Lymphoma Father juanita currently reici ving treatment Relation Name Status Comments Father juanita Social History Tobacco Use Types Packs/Day Years Used Date Smoking Tobacco: Every Day Cigarettes 0.5 40 Started: 02/11/1983 Passive Smoke Exposure: Never Smokeless Tobacco: Never Alcohol Use Standard Drinks/Week Comments Not Currently 0 (1 standard drink = 0.6 oz pur e alcohol) [facility] Utilities Answer Date Recorded In the past 12 months has th e electric, gas, oil, or water company threatened to shut off services in your home? No 10/15/2023 PHQ-2 Answer Date Recorded PHQ-2 Score 0 10/20/2023 Exercise Vital Sign Answer Date Recorde d On average, how many days pe r week do you engage in moderate to strenuous exercise (like a brisk walk)? 0 days 10/15/2023 On average, how many minutes do you engage in exercise at this level? 0 min 10/15/2023 Hunger Vital Sign Answer Date Recorded Within the past 12 months, y ou worried that your food would run out before you got the money to buy more. Never true 10/15/19 Within the past 12 months, t he food you bought just didn't last and you didn't have money to get more. Never true 10/15/2023 PRAPARE - Transportation Answer Date Re corded In the past 12 months, has l ack of transportation kept you from medical appointments or from getting medications? No 10/2023 In the past 12 months, has l ack of transportation kept you from meetings, work, or from getting things needed for daily living? No 10/15/2023 Depression Answer Date Recor ded PHQ-9 Total Score (max 27) 3 10/20 Nutrition Answer Date Recorded Nutrition: EVOO Fat Source Unknown 10/15 On average, how many serving s of fruits and vegetables do you eat per day (serving size is equal to 1 cup or approximately the size of a tennis ball)? 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 I have a [facility] place to live 10/15/2023 Sex and Gender Information Value Date Recorded Sex Assigned at Female 10/06/2023 10:50 AM OPHTHALMIC MEDICAL TECHNOLOGIST Gender Identity Female 10/06/2023 10:50 AM OPHTHALMIC MEDICAL TECHNOLOGIST Sexual Orientation Straight 10/06/2023 10 :50 AM OPHTHALMIC MEDICAL TECHNOLOGIST Last Filed Vital Signs Vital Sign Reading Time Taken Comments Blood Pressure 101/47 12/16/2023 10:52 AM CDT Pulse 77 12/16/2023 10:30 AM CDT Temperature 34.7 ??C (94.5 ??F) 12/09/2023 4:21 PM CD T Respiratory Rate 24 10/08/2023 4:16 PM OPHTHALMIC MEDICAL TECHNOLOGIST Oxygen Saturation 100% 12/16/2023 10:30 AM CDT Inhaled Oxygen Concentration - - Weight 51.2 kg (112 lb 14 oz) 12/09/2023 4:21 PM CDT Height 166.6 cm (5' 5.59) 12/09/2023 4:21 PM CD T Body Mass Index 18.45 12/09/2023 4:21 PM CDT Plan of Treatment Upcoming Encounters Date Type Department Care Team (Late st Contact Info) Description 12/30/2023 3:15 PM CDT Appointment Department of Radiology, [facility], in [place], [place] [address] [place] [phone] Katja Umana M.D. [address] [place] [phone] 01/19/2024 10:00 AM CDT Telemedicine Department of Nutrition and Diabetes Education in [place], [place] [address] [place] [phone] Katja Umana M.D. [address] [place] [phone] Taty Cunningham M.S., RDN, LD [address] [place] [phone] Health Maintenance Due Date Last Done Comments Abdominal Ultrasound 1960 CT Colonography 1960 Cologuard 1960 HIV Screening 1960 Lipid (Cholesterol) Screening 1960 Lung Cancer Screening 1960 Zoster Vaccines (1 of 2) 2010 Mammogram 01/12/2016 01/11/2015 (Perf ormed elsewhere) Colonoscopy 10/10/2020 10/10/2015, 09/0 09/2014 (Performed elsewhere) Colorectal Cancer Surveillance 10/10/2020 COVID-19 Vaccine (3 - 2022-2 4 season) 2023 11/21/2020, 10/24/2020 Influenza Vaccine (#1) 2023 07/13/2019, 2018 Hepatitis B Vaccines (2 of 2 - CpG (Heplisav) 2-dose series) 01/05/2024 12/08/2023 Creatinine Level (Kidney Fun ction Test) 12/08/2024 12/09/2023, 12/05/2023, 12/04/2023, Additional history exists Potassium Level 12/08/2024 12/09/2023, 11/12, 12/04/2023, Additional history exists Sodium Level 12/08/2024 12/09/2023, 11/12, 12/05/2023, Additional history exists Fasting Glucose for Diabetes Screening 12/08/2026 12/09/2023, 12/05/2023, 12/04/2023, Additional history exists DTaP,Tdap,and Td Vaccines (2 - Td or Tdap) 08/03/2027 08/03/2017 Hepatitis C Screening Completed 10/06/2023 Depression Screening (Annual PHQ-2) Completed 10/20/2023 Pneumococcal vaccine (0-64 years) Completed Procedures Procedure Name Priority Date/Time Associated Diagnosis Comments US PARACENTESIS WITH IMAGING GUIDANCE RAD - Routine (most inpatients and all outpatients) 12/16/2023 10:53 AM CDT Alcoholic Cirrhosis Of Liver With Ascites (HCC) Ascites PROTHROMBIN TIME (PT), P Routine 5:16 PM CDT Alcoholic Cirrhosis Of Liver With Ascites (HCC) COMPREHENSIVE METABOLIC PANEL, S/P Routine 12/09/2023 5:16 PM CDT Alcoholic Cirrhosis Of Liver With Ascites (HCC) CBC WITH DIFFERENTIAL, B Routine 5:16 PM CDT Alcoholic Cirrhosis Of Liver With Ascites (HCC) US PARACENTESIS WITH IMAGING GUIDANCE RAD - Routine (most inpatients and all outpatients) 11/19/2023 11:55 AM OPHTHALMIC MEDICAL TECHNOLOGIST Ascites CELL COUNT AND DIFFERENTIAL, BF Timed 11/19/2023 10:50 AM OPHTHALMIC MEDICAL TECHNOLOGIST Ascites BACTERIAL CULTURE, AEROBIC + SUSC Timed 11/19/2023 10:50 AM OPHTHALMIC MEDICAL TECHNOLOGIST Ascites US PARACENTESIS WITH IMAGING GUIDANCE RAD - Routine (most inpatients and all outpatients) 11/05/2023 11:25 AM OPHTHALMIC MEDICAL TECHNOLOGIST Ascites CELL COUNT AND DIFFERENTIAL, BF Timed 11/05/2023 10:07 AM OPHTHALMIC MEDICAL TECHNOLOGIST Ascites BACTERIAL CULTURE, AEROBIC + SUSC Timed 11/05/2023 10:07 AM OPHTHALMIC MEDICAL TECHNOLOGIST Ascites BASIC METABOLIC PANEL, S/P Routine 11/01/2023 12:49 PM OPHTHALMIC MEDICAL TECHNOLOGIST Alcoholic Cirrhosis Of Liver With Ascites (HCC) CONFIRMED DRUG ABUSE PANEL, U Routine 10/27/2023 10:38 AM OPHTHALMIC MEDICAL TECHNOLOGIST Alcohol Moderate Or Severe Use Disorder (Dependence) Uncomplicated (HCC) ETHYL GLUCURONIDE CONFIRMATION, U Routine 10/27/2023 10:38 AM OPHTHALMIC MEDICAL TECHNOLOGIST Alcohol Moderate Or Severe Use Disorder (Dependence) Uncomplicated (HCC) PHOSPHATIDYLETHANOL CONFIRMATION, B Routine 10/27/2023 10:33 AM OPHTHALMIC MEDICAL TECHNOLOGIST Alcohol Moderate Or Severe Use Disorder (Dependence) Uncomplicated (HCC) BASIC METABOLIC PANEL, S/P Routine 10/27/2023 10:33 AM OPHTHALMIC MEDICAL TECHNOLOGIST Alcoholic Cirrhosis Of Liver With Ascites (HCC) US PARACENTESIS WITH IMAGING GUIDANCE RAD - Routine (most inpatients and all outpatients) 10/22/2023 10:18 AM OPHTHALMIC MEDICAL TECHNOLOGIST Ascites CELL COUNT AND DIFFERENTIAL, BF Timed 10/22/2023 8:54 AM OPHTHALMIC MEDICAL TECHNOLOGIST Ascites BACTERIAL CULTURE, AEROBIC + SUSC Timed 10/22/2023 8:54 AM OPHTHALMIC MEDICAL TECHNOLOGIST Ascites BASIC METABOLIC PANEL, S/P Routine 10/20/2023 1:08 PM OPHTHALMIC MEDICAL TECHNOLOGIST Ascites GASTROENTEROLOGY IMAGE EXAM Routine 10/08/2023 3:20 PM OPHTHALMIC MEDICAL TECHNOLOGIST UPPER GI ENDOSCOPY Routine 10/08/2023 3:17 PM OPHTHALMIC MEDICAL TECHNOLOGIST Alcoholic Cirrhosis Of Liver With Ascites (HCC) EGD (ESOPHAGOGASTRODUODENOSC OPY) RESTRICTED Routine 10/08/2023 3:17 PM OPHTHALMIC MEDICAL TECHNOLOGIST Alcoholic Cirrhosis Of Liver With Ascites (HCC) US PARACENTESIS WITH IMAGING GUIDANCE RAD - Routine (most inpatients and all outpatients) 10/08/2023 12:57 PM OPHTHALMIC MEDICAL TECHNOLOGIST Alcoholic Cirrhosis Of Liver With Ascites (HCC) PROTEIN, TOTAL, BF Timed 10/08/2023 11:14 AM OPHTHALMIC MEDICAL TECHNOLOGIST ALBUMIN, BODY FLUID Timed 10/08/2023 11:14 AM OPHTHALMIC MEDICAL TECHNOLOGIST CELL COUNT AND DIFFERENTIAL, BF Timed 10/08/2023 11:14 AM OPHTHALMIC MEDICAL TECHNOLOGIST BACTERIAL CULTURE, AEROBIC + SUSC Timed 10/08/2023 11:14 AM OPHTHALMIC MEDICAL TECHNOLOGIST (TTE) 2D ECHO DOPPLER COLOR AND CONTRAST Routine 10/07/2023 11:01 AM OPHTHALMIC MEDICAL TECHNOLOGIST Alcoholic Cirrhosis Of Liver With Ascites (HCC) DX CHEST AP OR PA AND LATERAL 2 VIEWS RAD - Routine (most inpatients and all outpatients) 10/06/2023 1:32 PM OPHTHALMIC MEDICAL TECHNOLOGIST Alcoholic Cirrhosis Of Liver With Ascites (HCC) AUTOIMMUNE LIVER DISEASE PANEL, S Routine 10/06/2023 12:17 PM OPHTHALMIC MEDICAL TECHNOLOGIST Alcoholic Cirrhosis Of Liver With Ascites (HCC) ALPHA-FETOPROTEIN (AFP) TM, S Routine 10/06/2023 12:17 PM OPHTHALMIC MEDICAL TECHNOLOGIST Alcoholic Cirrhosis Of Liver With Ascites (HCC) PROTHROMBIN TIME (PT), P Routine 024 12:17 PM OPHTHALMIC MEDICAL TECHNOLOGIST Alcoholic Cirrhosis Of Liver With Ascites (HCC) COMPREHENSIVE METABOLIC PANEL, S/P Routine 10/06/2023 12:17 PM OPHTHALMIC MEDICAL TECHNOLOGIST Alcoholic Cirrhosis Of Liver With Ascites (HCC) CBC WITH DIFFERENTIAL, B Routine 024 12:17 PM OPHTHALMIC MEDICAL TECHNOLOGIST Alcoholic Cirrhosis Of Liver With Ascites (HCC) HEPATITIS A IGG AB S Routine 10/06/2023 12:17 PM OPHTHALMIC MEDICAL TECHNOLOGIST Alcoholic Cirrhosis Of Liver With Ascites (HCC) HBC TOTAL AB, SERUM Routine 10/06/2023 12:17 PM OPHTHALMIC MEDICAL TECHNOLOGIST Alcoholic Cirrhosis Of Liver With Ascites (HCC) HEPATITIS B SURFACE ANTIGEN Routine 10/06/2023 12:17 PM OPHTHALMIC MEDICAL TECHNOLOGIST Alcoholic Cirrhosis Of Liver With Ascites (HCC) HBS ANTIBODY, SERUM Routine 10/06/2023 12:17 PM OPHTHALMIC MEDICAL TECHNOLOGIST Alcoholic Cirrhosis Of Liver With Ascites (HCC) HCV AB SCRN W/REFLEX TO HCV PCR, S Routine 10/06/2023 12:17 PM OPHTHALMIC MEDICAL TECHNOLOGIST Alcoholic Cirrhosis Of Liver With Ascites (HCC) from Last 3 Months Results * US Paracentesis with Imaging Guidance (12/16/2023 10:53 AM CDT) Only the most recent of5 resultswithin the time period is included. Anatomical Region Laterality Modality Abdomen, Ultrasound RST LOS, Ultrasound ARZ LOS, Procedure FLA LOS, Abdominal FLA LOS, Procedural, Procedural NWWI LOS N/A Ultrasound Impressions 12/16/2023 11:02 AM CDT Ultrasound-guided paracentesis. EP Narrative 12/16/2023 11:02 AM CDT EXAM: US PARACENTESIS WITH IMAGING GUIDANCE PRE-PROCEDURE: Patient seen and evaluated. Allergies, pertinent medications, and history reviewed. Discussed risks, benefits, alternatives for procedure, and obtained informed consent. Patient understands information and questions answered. Immediately prior to starting the procedure, in the presence of the assisting personnel, procedural pause was conducted to verify correct patient identity and verification of procedure to be performed, and as applicable, correct side and site, correct patient position, availability of implants, special equipment, or special requirements, and all image and specimen identification data. The roles and responsibilities of care team members, residents, and fellows were discussed. TECHNIQUE: Sterile. 1% lidocaine for local anesthesia. Location: Right lower quadrant peritoneal space. Needle size: 5 Fr centesis catheter. Volume aspirated: 7448 mL Appearance of aspirate: Clear yellow Complication: None. Blood loss: None. Purpose: Therapeutic only. PATIENT INSTRUCTIONS: Patient may be dismissed from the radiology department when dismissal criteria met. POST-PROCEDURE DIAGNOSIS: Ascites Procedure Note Felipe Palacios M.D. - 12/16/2023 EXAM: US PARACENTESIS WITH IMAGING GUIDANCE PRE-PROCEDURE: Patient seen and evaluated. Allergies, pertinentmedications, and history reviewed. Discussed risks, benefits, alternativesfor procedure, and obtained informed consent. Patient understandsinformation and questions answered. Immediately prior to starting the procedure, in the presence of the assistingpersonnel, procedural pause was conducted to verify correct patientidentity and verification of procedure to be performed, and as applicable,correct side and site, correct patient position, availability of implants, special equipment, or specialrequirements, and all image and specimen identification data. The rolesand responsibilities of care team members, residents, and fellows werediscussed. TECHNIQUE: Sterile. 1% lidocaine for local anesthesia. Location: Right lower quadrant peritoneal space. Needle size: 5 Fr centesis catheter. Volume aspirated: 7448 mL Appearance of aspirate: Clear yellow Complication: None. Blood loss: None. Purpose: Therapeutic only. PATIENT INSTRUCTIONS: Patient may be dismissed from the radiologydepartment when dismissal criteria met. POST-PROCEDURE DIAGNOSIS: Ascites IMPRESSION: Ultrasound-guided paracentesis. EP Katja Umana M.D. [facility] [place] PROCEDURES * (ABNORMAL) Prothrombin Time (PT) (12/09/2023 5:16 PM CDT) Only the most recent of2 resultswithin the time period is included. Prothrombin Time, P 17.9(H) 9.4 - 12.5 sec 12/09/2023 5:52 PM CDT DTL INR 1.6 0.9 - 1.1 12/09/2023 5:52 PM CDT DTL Comment: ----ADDITIONAL INFORMATION---- Standard intensity warfarin therapeutic range: 2.0 to 3.0 ?? High intensity warfarin therapeutic range: 2.5 to 3.5 Blood (Blood, Venous) 12/09/2023 5:16 PM CDT 12/09/2023 5:39 PM CDT Katja Umana M.D. LAB BLOOD ADD-ON [facility] [address] [place] [address], [facility] [place] [address] [place] [address] * (ABNORMAL) CBC with Differential, Blood (12/09/2023 5:16 PM CDT) Only the most recent of2 resultswithin the time period is included. Pathologist [facility] Hemoglobin 8.3(L) 11.6 - 15.0 g/dL 12/09/2023 5:45 PM CDT DTL Hematocrit 24.1(L) 35.5 - 44.9 % 12/09/2023 5:45 PM CDT DTL Erythrocytes 2.48(L) 3.92 - 5.13 x10(12)/L 12/09/2023 5:45 PM CDT DTL MCV 97.2 78.2 - 97.9 fL 12/09/2023 5:45 PM CDT DTL RBC Distrib Width 16.1 12.2 - 16.1 % 12/09/2023 5:45 PM CDT DTL Platelet Count 204 157 - 371 x10(9)/L 12/09/2023 5:45 PM CDT DTL Leukocytes 10.1(H) 3.4 - 9.6 x10(9)/L 12/09/2023 5:45 PM CDT DTL Neutrophils 8.07(H) 1.56 - 6.45 x10(9)/L 12/09/2023 5:45 PM CDT DHPM Lymphocytes 1.30 0.95 - 3.07 x10(9)/L 12/09/2023 5:45 PM CDT DTL Monocytes 0.68 0.26 - 0.81 x10(9)/L 12/09/2023 5:45 PM CDT DTL Eosinophils 0.04 0.03 - 0.48 x10(9)/L 12/09/2023 5:45 PM CDT DTL Basophils <0.03 0.01 - 0.08 x10(9)/L 12/09/2023 5:45 PM CDT DTL Blood (Blood, Venous) 12/09/2023 5:16 PM CDT 12/09/2023 5:39 PM CDT Katja Umana M.D. LAB BLOOD ADD-ON [facility] [address] [place] [address], [facility] DTL [facility] [address] [place], [place] [id number] [place] [address] [address] [place] [address] * (ABNORMAL) Comprehensive Metabolic Panel (12/09/2023 5:16 PM CDT) Only the most recent of2 resultswithin the time period is included. [facility] Potassium, S 5.0 3.6 - 5.2 mmol/L 12/09/2023 6:18 PM CDT DTL Sodium, S 123(L) 135 - 145 mmol/L 12/09/2023 6:18 PM CDT DTL Chloride, S 92(L) 98 - 107 mmol/L 12/09/2023 6:18 PM CDT DTL Bicarbonate, S 22 22 - 29 mmol/L 12/09/2023 6:18 PM CDT DTL Anion Gap 9 7 - 15 12/09/2023 6:18 PM CDT DTL BUN (Blood Urea Nitrogen), S 24(H) 6 - 21 mg/dL 12/09/2023 6:18 PM CDT DTL Creatinine 0.72 0.59 - 1.04 mg/dL 12/09/2023 6:18 PM CDT DTL Estimated GFR (eGFR) >90 >=60 mL/min/BS A 12/09/2023 6:18 PM CDT DTL Comment: Estimated GFR calculated using the 2020 CKD_EPI creatinine equation. Calcium, Total, S 8.5(L) 8.8 - 10.2 mg/dL 12/09/2023 6:18 PM CDT DTL Glucose, S 96 70 - 140 mg/dL 12/09/2023 6:18 PM CDT DTL Protein, Total, S 6.8 6.3 - 7.9 g/dL 12/09/2023 6:18 PM CDT DTL Albumin, S 2.9(L) 3.5 - 5.0 g/dL 12/09/2023 6:18 PM CDT DTL Aspartate Aminotransferase (AST), S 85(H) 8 - 43 U/L 12/09/2023 6:18 PM CDT DTL Alkaline Phosphatase, S 112(H) 35 - 104 U/L 12/09/2023 6:18 PM CDT DTL Alanine Aminotransferase (ALT), S 37 7 - 45 U/L 12/09/2023 6:18 PM CDT DTL Bilirubin, Total, S 2.4(H) 0.0 - 1.2 mg/dL 12/09/2023 6:18 PM CDT DTL Blood (Blood, Venous) 12/09/2023 5:16 PM CDT 12/09/2023 5:53 PM CDT Katja Umana M.D. LAB BLOOD ADD-ON [facility] [address] [place] [address], [facility] [address] [place] [address] * Bacterial Culture, Aerobic + Susceptibility (11/19/2023 10:50 AM OPHTHALMIC MEDICAL TECHNOLOGIST) Only the most recent of4 resultswithin the time period is included. Bacterial Culture, Aerobic + Susc No growth after 5 days of incubation. 11/24/2023 8:27 AM CDT DTL Fluid (Peritoneal Fluid) 11/19/2023 10:50 AM OPHTHALMIC MEDICAL TECHNOLOGIST Narrative [facility] - 11/24/2023 8:27 AM CDT Bacterial Culture: Received Bactec aerobic and Bactec anaerobic bottles Felipe Morales M.D. LAB MICROBIOLOGY - GENERAL ORDERABLES [facility] [address] [place] [address], [facility] DTL [facility] [address] [place] [address] * Cell Count and Differential, Body Fluid (11/19/2023 10:50 AM OPHTHALMIC MEDICAL TECHNOLOGIST) Only the most recent of4 resultswithin the time period is included. Fluid Type Peritoneal /Paracente sis 11/19/2023 12:39 PM OPHTHALMIC MEDICAL TECHNOLOGIST DHPM Gross Appearance Serous 11/19/19 24 12:39 PM OPHTHALMIC MEDICAL TECHNOLOGIST DHPM Total Nucleated Cells 201 /mcL 11/19/2023 12:39 PM OPHTHALMIC MEDICAL TECHNOLOGIST DHPM Comment: ----REFERENCE VALUE---- Synovial: <150 /mcL Peritoneal: <500 /mcL Pleural: <500 /mcL Pericardial: <500 /mcL ----ADDITIONAL INFORMATION---- This test has been modified from the fret saw operator's instructions. Its performance characteristics were determined by [facility] in a manner consistent with CLIA requirements. This test has not been cleared or approved by the U.S. Food and Drug Administration. Neutrophils 20 % 11/19/2023 1:42 PM OPHTHALMIC MEDICAL TECHNOLOGIST DHPM Comment: ----REFERENCE VALUE---- Synovial: <25% Peritoneal: <25% Pleural: <25% Pericardial: <25% Lymphocytes 16 Synovial <75% % 11/19/2023 1:42 PM OPHTHALMIC MEDICAL TECHNOLOGIST DHPM Monocytes/Macropha ges 60 Synovial <70% % 11/19/2023 1:42 PM OPHTHALMIC MEDICAL TECHNOLOGIST DHPM Other Cells 4 % 11/19/2023 1:42 PM OPHTHALMIC MEDICAL TECHNOLOGIST DHPM Comment: ----REFERENCE VALUE---- The reference range and other method performance specifications have not been established for this bodyfluid. The test result must be integrated into the clinical context for interpretation. Other Cells Are: See Comment 11/19/2023 1:42 PM OPHTHALMIC MEDICAL TECHNOLOGIST DHPM Comment:Mesothelial cells Comment See Comment 11/19/2023 1:42 PM OPHTHALMIC MEDICAL TECHNOLOGIST [facility] Comment:No blasts or maligna nt cells seen. Reviewed by: Jose 11/19/2023 1:42 PM OPHTHALMIC MEDICAL TECHNOLOGIST [facility] Fluid (Peritoneal Fluid) 11/19/2023 10:50 AM OPHTHALMIC MEDICAL TECHNOLOGIST Felipe Morales M.D. LAB BODY FLUIDS AND STOOLS ORDERABLES [facility] [address] [place] [address], [facility] [address] [place] [address] * (ABNORMAL) Basic Metabolic Panel (11/01/2023 12:49 PM OPHTHALMIC MEDICAL TECHNOLOGIST) Only the most recent of3 resultswithin the time period is included. Potassium, P 4.1 3.6 - 5.2 mmol/L 11/01/2023 1:13 PM OPHTHALMIC MEDICAL TECHNOLOGIST CNFL Sodium, P 128(L) 135 - 145 mmol/L 11/01/2023 1:13 PM OPHTHALMIC MEDICAL TECHNOLOGIST CNFL Chloride, P 95(L) 98 - 107 mmol/L 11/01/2023 1:13 PM OPHTHALMIC MEDICAL TECHNOLOGIST CNFL Bicarbonate, P 26 22 - 29 mmol/L 11/01/2023 1:13 PM OPHTHALMIC MEDICAL TECHNOLOGIST CNFL Anion Gap, P 7 7 - 15 11/01/2023 1:13 PM OPHTHALMIC MEDICAL TECHNOLOGIST CNFL BUN (Blood Urea Nitrogen), P 10 6 - 21 mg/dL 11/01/2023 1:13 PM OPHTHALMIC MEDICAL TECHNOLOGIST CNFL Creatinine 0.42(L) 0.59 - 1.04 mg/dL 11/01/2023 1:13 PM OPHTHALMIC MEDICAL TECHNOLOGIST CNFL Estimated GFR (eGFR) >90 >=60 mL/min/BSA 11/01/2023 1:13 PM OPHTHALMIC MEDICAL TECHNOLOGIST CNFL Comment: Estimated GFR calculated using the 2020 CKD_EPI creatinine equation. Calcium, Total, P 8.3(L) 8.8 - 10.2 mg/dL 11/01/2023 1:13 PM OPHTHALMIC MEDICAL TECHNOLOGIST CNFL Glucose, P 105 70 - 140 mg/dL 11/01/2023 1:13 PM OPHTHALMIC MEDICAL TECHNOLOGIST CNFL Blood (Blood, Venous) 11/01/2023 12:49 PM OPHTHALMIC MEDICAL TECHNOLOGIST 11/01/2023 12:54 PM OPHTHALMIC MEDICAL TECHNOLOGIST Katja Umana M.D. LAB BLOOD ADD-ON [facility] [address] [place] [address], [facility] CNFL [facility] in [address] [address] * Ethyl Glucuronide Confirmation, Random, Urine (10/27/2023 10:38 AM OPHTHALMIC MEDICAL TECHNOLOGIST) Ethyl Glucuronide Confirmation, U Negative Cutoff: 250 ng/mL 10/29/2023 8:19 AM OPHTHALMIC MEDICAL TECHNOLOGIST [facility] Ethyl Sulfate Negative Cutoff: 100 ng/mL 10/29/2023 8:19 AM OPHTHALMIC MEDICAL TECHNOLOGIST [facility] Ethyl Gluc/Sulfate Interpretation Negative. 10/29/2023 8:19 AM OPHTHALMIC MEDICAL TECHNOLOGIST [facility] Comment: ----ADDITIONAL INFORMATION---- This report is intended for use in clinical monitoring and management of patients. ??It is not intended for use in employment-related testing. This test was developed and its performance characteristics determined by [facility] in a manner consistent with CLIA requirements. This test has not been cleared or approved by the U.S. Food and Drug Administration. Urine (Urine, Midstream) 10/27/2023 10:38 AM OPHTHALMIC MEDICAL TECHNOLOGIST 10/27/2023 10:00 PM OPHTHALMIC MEDICAL TECHNOLOGIST Romana Diane M.D., Ph.D. LAB URI NE ORDERABLES [facility] [address] [place] [address] [facility] [address] [place] [address] [place] [address] * Drug Abuse Survey with Confirmation, Urine (10/27/2023 10:38 AM OPHTHALMIC MEDICAL TECHNOLOGIST) Alcohol Negative Cutoff: 10 mg/dL 10/28/2023 9:08 AM OPHTHALMIC MEDICAL TECHNOLOGIST [facility] Amphetamines Negative Cutoff: 500 ng/mL 10/28/2023 9:08 AM OPHTHALMIC MEDICAL TECHNOLOGIST [facility] Barbiturates Negative Cutoff: 200 ng/mL 10/28/2023 9:08 AM OPHTHALMIC MEDICAL TECHNOLOGIST [facility] Benzodiazepines Negative Cutoff: 100 ng/mL 10/28/2023 9:[address] [facility] Cocaine Negative Cutoff: 150 ng/mL 10/28/2023 9:[address] [facility] Comment: This cocaine immunoassay targets benzoylecgonine the primary metabolite of cocaine. Opiates Negative Cutoff: 300 ng/mL 10/28/2023 9:[address] [facility] Phencyclidine Negative Cutoff: 25 ng/mL 10/28/2023 9:[address] [facility] Tetrahydrocannabinol Negative Cutoff: 50 ng/mL 10/28/2023 9:[address] [facility] Comment: This immunoassay targets delta-9 tetrahydrocannabinol carboxylic acid (THC-COOH), a metabolite of delta-9 tetrahydrocannabinol the main psychoactive ingredient of marijuana. ----ADDITIONAL INFORMATION---- This report is intended for use in clinical monitoring or management of patients. ??It is not intended for use in employment-related testing. Urine (Urine, Midstream) 10/27/2023 10:38 AM OPHTHALMIC MEDICAL TECHNOLOGIST 10/27/2023 10:03 PM [facility] Romana Diane M.D., Ph.D. LAB URI NE ORDERABLES [facility] [address] [place] [address] [facility] [address] [place] [address] [place] [address] * Phosphatidylethanol Confirmation (10/27/2023 10:33 AM [facility]) PEth 16:0/18:1 (POPEth) by LC-MS/MS <20 Cutoff: 10 ng/mL 10/29/2023 8:[address] [facility] Comment: Testing performed at a x2 dilution; limit of quantitation is elevated. Phosphatidylethanol (PEth) homologues result interpretation PEth 16:0/18:1 (POPEth) Less than 10 ng/mL: Not detected 10 - 19 ng/mL: Abstinence or light alcohol consumption (<2 drinks per day for several days a week) 20 - 200 ng/mL: Moderate alcohol consumption (up to 4 drinks per day for several days a week) Greater than 200 ng/mL: Heavy alcohol consumption or chronic alcohol use (at least 4 drinks per day several days a week) (Reference: Tom Zavala and Terri Blackwell 2018 J. Forensic Sci) PEth 16:0/18:2 (PLPEth) by LC-MS/MS <10 Cutoff: 10 ng/mL 10/29/2023 8:[address] [facility] Comment: PEth 16:0/18:2 (PLPEth) Reference ranges are not well established PEth Interpretation Negative. 10/29 8:[address] [facility] Comment: ----ADDITIONAL INFORMATION---- This report is intended for use in clinical monitoring and management of patients. ??It is not intended for use in employment-related testing. This test was developed and its performance characteristics determined by [facility] in a manner consistent with CLIA requirements. This test has not been cleared or approved by the U.S. Food and Drug Administration. Blood (Blood, Venous) 10/27/2023 10:33 AM OPHTHALMIC MEDICAL TECHNOLOGIST 10/27/2023 9:57 PM OPHTHALMIC MEDICAL TECHNOLOGIST Romana Diane M.D., Ph.D. LAB BLO OD ADD-ON Performing Organization Address City/[facility]/ZIP Co de Phone Number [facility] [address] [place] [address] [facility] [address] [place] [address] [place] [address] * Duodenum, Entire examined duodenum Upper GI endoscopy-Gastroenterology Image Exam (10/08/2023 3:20 PM OPHTHALMIC MEDICAL TECHNOLOGIST) 10/08/2023 3:17 PM OPHTHALMIC MEDICAL TECHNOLOGIST Narrative [facility] - 10/08/2023 3:57 PM OPHTHALMIC MEDICAL TECHNOLOGIST This order has been created and auto-finalized to support the import of images acquired without order. The clinical documentation to support these images can be found on the encounter that produced images. Provider Not In System IMG NON RAD IMAGI NG PROCEDURES [facility] NA * Upper GI Endoscopy (10/08/2023 3:17 PM OPHTHALMIC MEDICAL TECHNOLOGIST) 10/08/2023 3:17 PM OPHTHALMIC MEDICAL TECHNOLOGIST Impressions [facility] - 10/08/2023 3:53 PM OPHTHALMIC MEDICAL TECHNOLOGIST Post-op Diagnoses: ? 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 ? - Mild portal hypertensive gastropathy. ? - Normal examined duodenum. ? - No specimens collected. Narrative [facility] - 10/08/2023 3:53 PM OPHTHALMIC MEDICAL TECHNOLOGIST Scot 6 GI GI Patient Name: Monique Redmond Date of : 1960 Age: 62 Procedure Date: 10/08/2023 Procedure: ? Upper GI endoscopy Providers: ? Jose Rafael Dodge MD, Orville Collazo MD ? (Fellow) Referring Provider: ?Katja Umana MD Pre-op Diagnoses: ?Cirrhosis rule out esophageal varices Recommendation: ? - Full liquid diet today, then advance as tolerated to soft diet for 1 ? day. ? - Repeat upper endoscopy in 6 weeks for endoscopic band ligation. ? - Return to referring physician. Findings: ? Large (> 5 mm) varices were found in the distal esophagus. One band was ? successfully placed with incomplete eradication of varices. There was no ? bleeding at the end of the procedure. ? Mild portal hypertensive gastropathy was found in the entire examined ? stomach. ? The examined duodenum was normal. Procedural Details: ? The patient was seen, evaluated, history reviewed, airway and heart-lung ? exams were performed by licensed provider and were satisfactory for ? planned level of sedation care. ? The risks, benefits and alternatives for the procedure and sedation were ? discussed and informed consent was obtained. A procedural pause was ? conducted in the presence of assisting personnel to verify the correct ? patient identity and procedure to be performed. Throughout the ? procedure, the patient's blood pressure, pulse, and oxygen saturations ? were monitored continuously. The Gastroscope was introduced under direct ? vision through the mouth, and advanced to the second part of duodenum. ? The upper GI endoscopy was accomplished without difficulty. The patient ? tolerated the procedure well. Estimated Blood Loss: ?Estimated blood loss was minimal. Complications: ? No immediate complications. Sedation: ? Moderate (conscious) sedation was personally administered by an ? anesthesia professional. The following parameters were monitored: oxygen ? saturation, heart rate, blood pressure, and response to care. Attending Participation: I was present and participated during the entire ? procedure, including non-hamilton portions. Jose Rafael Dodge MD 10/08/2023 3:52:58 PM This report has been signed electronically. Number of Addenda: 0 Katja Umana M.D. GI PROCEDURE ORDERAB LES [facility] NA * Protein, Total, Body Fluid (10/08/2023 11:14 AM OPHTHALMIC MEDICAL TECHNOLOGIST) Protein, Total, BF 0.9 See Comment g/dL 10/08/2023 12:53 PM OPHTHALMIC MEDICAL TECHNOLOGIST DTL Comment: ----ADDITIONAL INFORMATION---- A pleural fluid total protein to serum total protein ratio >0.5 is most consistent with exudative effusion. A peritoneal fluid total protein > 2.5 g/dL in patients with a high serum ascites albumin gradient can be caused by heart failure. A peritoneal fluid total protein > 1.0 g/dL helps to differentiate secondary from spontaneous bacterial peritonitis in conjunction with other laboratory, imaging, and clinical findings. All other fluids refer to www.[employer]Sounday for further interpretive information. This test has been modified from the fret saw operator's instructions. Its performance characteristics were determined by [facility] in a manner consistent with CLIA requirements. This test has not been cleared or approved by the U.S. Food and Drug Administration. Fluid Type, Protein, Total Fluid, Peritoneal Fluid 10/08/2023 11:54 AM OPHTHALMIC MEDICAL TECHNOLOGIST DTL Fluid (Peritoneal Fluid) 10/08/2023 11:14 AM OPHTHALMIC MEDICAL TECHNOLOGIST 10/08/2023 12:09 PM OPHTHALMIC MEDICAL TECHNOLOGIST Katja Umana M.D. LAB BODY FLUIDS AND STOOLS ORDERABLES Performing Organization Address [facility] Co de Phone Number [facility] [address] [place] [address] * Albumin, Body Fluid (10/08/2023 11:14 AM OPHTHALMIC MEDICAL TECHNOLOGIST) Albumin BF 0.5 See Comment g/dL 10/08/2023 12:53 PM OPHTHALMIC MEDICAL TECHNOLOGIST DT Comment: ----ADDITIONAL INFORMATION---- Peritoneal fluid albumin is used to calculate the serum-ascites albumin gradient (SAAG). Values greater than or equal to 1.1 g/dL suggest portal hypertension. Pleural fluid albumin may be used to calculate a serum-effusion albumin gradient. Values greater than 1.2 g/dL are most consistent with a transudative process. ?? All other fluids refer to www.[employer].com for further interpretive information. This test has been modified from the fret saw operator's instructions. Its performance characteristics were determined by [facility] in a manner consistent with CLIA requirements. This test has not been cleared or approved by the U.S. Food and Drug Administration. Fluid Type, Albumin Fluid, Peritoneal Fluid 10/08/2023 11:54 AM OPHTHALMIC MEDICAL TECHNOLOGIST DT Fluid (Peritoneal Fluid) 10/08/2023 11:14 AM OPHTHALMIC MEDICAL TECHNOLOGIST 10/08/2023 12:09 PM OPHTHALMIC MEDICAL TECHNOLOGIST Katja Umana M.D. LAB BODY FLUIDS AND STOOLS ORDERABLES Performing Organization Address City/[facility]/ZIP Co de Phone Number [facility] [address] [place] [address] * (TTE) 2D ECHO DOPPLER COLOR AND CONTRAST (10/07/2023 11:01 AM OPHTHALMIC MEDICAL TECHNOLOGIST) Ejection Fraction 68 MC CV EIM[facility] Proximal Ascending Aorta 25 MC CV EIMS LV Mass Index 101 MC CV EIMS LV End-Diastolic Diameter 47 MC CV EIMS LV End-Systolic Diameter 29 MC CV EIMS LV End-Diastolic Volume 125 MC CV EIMS LV End-Systolic Volume 40 MC CV EIMS MV E Velocity 1 MC CV EIMS MV A Velocity 1.2 MC CV EIMS MV E/A 0.83 MC CV EIMS MV e' Velocity Medial 0.1 MC CV EIMS MV e' Velocity Lateral 0.11 MC CV EIMS MV E/e' Medial 10 MC CV EIMS MV E/e' Lateral 9.1 MC CV EIMS Left ventricular stroke volume index 56 MC CV EIMS Cardiac Output 9.12 MC CV EIMS Cardiac Index 5.24 MC CV EIMS LV Interventricular Septal Wall Thickness 11 MC CV EIM[facility] LV Posterior Wall Thickness 10 MC CV EIMS LV Relative Wall Thickness 43 MC CV EIMS TAPSE 24 MC CV EIMS Tricuspid Annular S? 0.17 MC CV EIMS TR Vmax 2.4 MC CV EIMS RA Pressure 5 MC CV EIMS RV Systolic Pressure 28 MC CV EIMS AV mean gradient 8 MC CV EIMS Aortic valve area 2.49 MC CV EIMS Aortic Valve Dimensionless Index 0.72 MC CV EIMS LA Volume Index 45 MC CV EIMS Aortic Valve Systolic Peak Velocity 1.8 MC CV EIMS Anatomical Region Laterality Modality Echocardiography 10/07/2023 9:54 AM OPHTHALMIC MEDICAL TECHNOLOGIST Impressions 10/07/2023 11:02 AM OPHTHALMIC MEDICAL TECHNOLOGIST Agitated saline contrast administered. Moderate intrapulmonary shunt. LEFT VENTRICLE:Normal left ventricular chamber size. Abnormal left ventricular geometry with ??concentric left ventricular hypertrophy. Calculated 2-D biplane volumetric left ventricular ejection fraction of 68%. No regional wall motion abnormalities. Elevated left ventricular filling pressure. RIGHT VENTRICLE:Normal right ventricular chamber size. Normal right ventricular systolic function. Estimated right ventricular systolic pressure 28 mmHg (right atrial pressure of 5 mmHg). ATRIA:Moderately enlarged left atrial size. Left atrial volume index 45 ml/m2. Enlarged right atrial size. CARDIAC VALVES:Trileaflet aortic valve. Sclerotic aortic valve. No aortic valve regurgitation. Thickened mitral valve. Trivial mitral valve regurgitation. Normal pulmonary valve. Trivial pulmonary valve regurgitation. Normal tricuspid valve. Trivial tricuspid valve regurgitation. OTHER ECHO FINDINGS:Normal inferior vena cava size with normal inspiratory collapse (>50%). Normal ascending aorta diameter. Abdominal aorta incompletely visualized. Normal abdominal aorta Doppler flow pattern. Agitated saline injection(s) performed. No atrial level shunt by color flow imaging and agitated saline contrast injection. No intracardiac mass or thrombus, but the left atrial appendage cannot be visualized adequately with transthoracic echo to exclude thrombus in this location. No ??pericardial effusion. Ascites. For the complete report, see the Order-Level Documents. Narrative 10/07/2023 11:02 AM OPHTHALMIC MEDICAL TECHNOLOGIST For the complete report, see the Order-Level Documents. Hemodynamics Heart Rate: 98 BPM Blood Pressure: 116 / 72 mmHg ECG: Sinus rhythm Final Impressions 1. Hyperdynamic state, likely due to the liver disease. 2. Moderate intrapulmonary shunt. 3. Normal left ventricular chamber size, no regional wall motion abnormalities, calculated 2-D biplane volumetric ejection fraction of 68%. 4. Abnormal left ventricular geometry with ??concentric left ventricular hypertrophy, elevated filling pressure. 5. Normal right ventricular chamber size, normal systolic function, estimated right ventricular systolic pressure 28 mmHg (right atrial pressure of 5 mmHg). 6. Normal (non-notched) Doppler flow pattern through the right ventricular outflow tract consistent with a normal or near-normal pulmonary vascular resistance. 7. Sclerotic aortic valve. 8. No ??pericardial effusion. Procedure Note Krishna Gomez M.D., Ph.D. - 10/07/2023 For the complete report, see the Order-Level Documents. Hemodynamics Heart Rate: 98 BPM Blood Pressure: 116 / 72 mmHg ECG: Sinus rhythm Final Impressions 1. Hyperdynamic state, likely due to the liver disease. 2. Moderate intrapulmonary shunt. 3. Normal left ventricular chamber size, no regional wall motionabnormalities, calculated 2-D biplane volumetric ejection fraction of68%. 4. Abnormal left ventricular geometry with concentric left ventricularhypertrophy, elevated filling pressure. 5. Normal right ventricular chamber size, normal systolic function,estimated right ventricular systolic pressure 28 mmHg (right atrialpressure of 5 mmHg). 6. Normal (non-notched) Doppler flow pattern through the right ventricularoutflow tract consistent with a normal or near-normal pulmonary vascularresistance. 7. Sclerotic aortic valve. 8. No pericardial effusion. Findings Agitated saline contrast administered. Moderate intrapulmonary shunt. LEFT VENTRICLE:Normal left ventricular chamber size. Abnormal leftventricular geometry with concentric left ventricular hypertrophy.Calculated 2-D biplane volumetric left ventricular ejection fraction of68%. No regional wall motion abnormalities. Elevated left ventricularfilling pressure. RIGHT VENTRICLE:Normal right ventricular chamber size. Normal rightventricular systolic function. Estimated right ventricular systolicpressure 28 mmHg (right atrial pressure of 5 mmHg). ATRIA:Moderately enlarged left atrial size. Left atrial volume index 45ml/m2. Enlarged right atrial size. CARDIAC VALVES:Trileaflet aortic valve. Sclerotic aortic valve. No aorticvalve regurgitation. Thickened mitral valve. Trivial mitral valveregurgitation. Normal pulmonary valve. Trivial pulmonary valveregurgitation. Normal tricuspid valve. Trivial tricuspid valveregurgitation. OTHER ECHO FINDINGS:Normal inferior vena cava size with normal inspiratorycollapse (>50%). Normal ascending aorta diameter. Abdominal aortaincompletely visualized. Normal abdominal aorta Doppler flow pattern.Agitated saline injection(s) performed. No atrial level shunt by colorflow imaging and agitated saline contrast injection. No intracardiac massor thrombus, but the left atrial appendage cannot be visualized adequatelywith transthoracic echo to exclude thrombus in this location. Nopericardial effusion. Ascites. For the complete report, see the Order-Level Documents. Katja Umana M.D. CV ECHO PROCEDURES * DX Chest AP or PA and Lateral 2 Views (10/06/2023 1:32 PM OPHTHALMIC MEDICAL TECHNOLOGIST) Anatomical Region Laterality Modality Chest, Thoracic RST LOS, Tho racic ARZ LOS, Thoracic FLA LOS N/A Digital Radiography Impressions 10/06/2023 1:35 PM OPHTHALMIC MEDICAL TECHNOLOGIST Shallow inspiration. New focal predominantly linear opacity in the left lower lung since 02/05/2015. This is most likely due to atelectasis although a focal area of consolidation cannot be completely excluded. New blunting of the posterior costophrenic angles by fluid or thickened pleura. Otherwise, no significant change. Tiny calcified granuloma right upper lung laterally with calcified mediastinal nodes. Mild bilateral apical scarring. Narrative 10/06/2023 1:35 PM OPHTHALMIC MEDICAL TECHNOLOGIST EXAM: ??DX CHEST AP OR PA AND LATERAL 2 VIEWS Procedure Note Osmin Pineda M.D. - 10/06/2023 EXAM: DX CHEST AP OR PA AND LATERAL 2 VIEWS IMPRESSION: Shallow inspiration. New focal predominantly linear opacity in the leftlower lung since 02/05/2015. This is most likely due to atelectasisalthough a focal area of consolidation cannot be completely excluded. Newblunting of the posterior costophrenic angles by fluid or thickened pleura. Otherwise, nosignificant change. Tiny calcified granuloma right upper lung laterallywith calcified mediastinal nodes. Mild bilateral apical scarring. Katja Umana M.D. IMG DIAGNOSTIC IMAGI NG PROCEDURES * (ABNORMAL) Autoimmune Liver Disease Panel (10/06/2023 12:17 PM OPHTHALMIC MEDICAL TECHNOLOGIST) Mitochondrial Ab, M2, S <0.1 <0.1 (Negative) U 10/06/2023 9:06 PM OPHTHALMIC MEDICAL TECHNOLOGIST SDS Antinuclear Ab, HEp-2 Substrate, S Positive 1:320(A) <1:80 (Negative) 10/06/2023 10:15 PM OPHTHALMIC MEDICAL TECHNOLOGIST [facility] Comment: ----ADDITIONAL INFORMATION---- Method: Immunofluorescence using HEp-2 cellular substrate. NEGIN Titer: 1:320 10/06/2023 10:15 PM OPHTHALMIC MEDICAL TECHNOLOGIST SDS NEGIN Pattern: Speckled 10/06/2023 10:15 PM OPHTHALMIC MEDICAL TECHNOLOGIST SDS Smooth Muscle Ab Screen, S Negative Negative 10/07/2023 11:57 AM OPHTHALMIC MEDICAL TECHNOLOGIST [facility] Comment: Negative: No further testing will be performed ----ADDITIONAL INFORMATION---- This test was developed and its performance characteristics determined by [facility] in a manner consistent with CLIA requirements. This test has not been cleared or approved by the U.S. Food and Drug Administration. Blood (Blood, Venous) 10/06/2023 12:17 PM OPHTHALMIC MEDICAL TECHNOLOGIST 10/06/2023 4:11 PM OPHTHALMIC MEDICAL TECHNOLOGIST Katja Umana M.D. LAB BLOOD ADD-ON [facility] [address] [place] [address] [facility] [address] [place] [id number] [facility] [address] [place] [address] [place] [address] * HCV Ab Scrn w/Reflex to HCV PCR, Serum (10/06/2023 12:17 PM OPHTHALMIC MEDICAL TECHNOLOGIST) [facility] HCV Ab Screen, S Negative Negative 10/06/2023 9:12 PM OPHTHALMIC MEDICAL TECHNOLOGIST [facility] Comment:[id number] rat io is <1.00. Blood (Blood, Venous) 10/06/2023 12:17 PM OPHTHALMIC MEDICAL TECHNOLOGIST 10/06/2023 3:57 PM OPHTHALMIC MEDICAL TECHNOLOGIST Katja Umana M.D. LAB MICROBIOLOGY - B LOOD ORDERABLES Performing Organization Address [facility] Co de Phone Number [facility] [address] [place] [address] [facility] [address] [place] [address] * Hepatitis A IgG Ab, Serum (10/06/2023 12:17 PM OPHTHALMIC MEDICAL TECHNOLOGIST) [facility] Hepatitis A IgG Ab, S Positive 10/06/2023 8:53 PM OPHTHALMIC MEDICAL TECHNOLOGIST [facility] Comment: Result indicates immunity to hepatitis A infection from either vaccination or past exposure to hepatitis A. False-positive results may be observed in patients with CMV antibodies or heterophilic antibodies. ?? ----REFERENCE VALUE---- Unvaccinated: Negative Vaccinated: Positive Blood (Blood, Venous) 10/06/2023 12:17 PM OPHTHALMIC MEDICAL TECHNOLOGIST 10/06/2023 3:57 PM OPHTHALMIC MEDICAL TECHNOLOGIST Katja Umana M.D. LAB MICROBIOLOGY - B LOOD ORDERABLES [facility] [address] [place] [address] [facility] [address] [place] [address] * AFP (Alpha-Fetoprotein), Tumor Marker (10/06/2023 12:17 PM OPHTHALMIC MEDICAL TECHNOLOGIST) [facility] Alpha-Fetoprotein, Tumor Marker, S 7.8 ng/mL 10/07/2023 3:00 PM OPHTHALMIC MEDICAL TECHNOLOGIST [facility] Comment: ----REFERENCE VALUE---- <8.4 Reference values are for non- subjects only; production of AFP elevates values in women. ----ADDITIONAL INFORMATION---- In this [place] assay AFP concentrations are <8.4 ng/mL for 99% of a normal population consisting of non- healthy individuals, without known liver disease, hepatocellular carcinoma, or germ-cell tumors. ??The persistence of alpha-fetoprotein, an uncommon hereditary trait may cause elevations of AFP above the reference interval. In some immunoassays, the presence of unusually high concentrations of analyte may result in a high-dose hook effect. This may result in a lower or even normal measured analyte concentration. ??If the reported result is inconsistent with the clinical presentation, the laboratory should be alerted for troubleshooting. For diagnostic purposes, these immunoassay results should always be assessed in conjunction with the patients medical history, clinical examination and other findings. ? The testing method is an immunoenzymatic assay manufactured by [employer]. and is tested on the [employer]base [employer] DxI 800. Values obtained with different assay methods or kits may be different and cannot be used interchangeably. ? Test results cannot be interpreted as absolute evidence of the presence or absence of malignant disease. Alpha-Fetoprotein values are not interpretable in females for the investigation of malignant disease. Blood (Blood, Venous) 10/06/2023 12:17 PM OPHTHALMIC MEDICAL TECHNOLOGIST 10/07/2023 1:04 PM OPHTHALMIC MEDICAL TECHNOLOGIST Katja Umana M.D. LAB BLOOD ADD-ON [facility] [address] [place] [address] [facility] [address] [place] [address] * HBc Total Ab, Serum (10/06/2023 12:17 PM OPHTHALMIC MEDICAL TECHNOLOGIST) HBc Total Ab, S Negative Negative 10/06/2023 9:13 PM OPHTHALMIC MEDICAL TECHNOLOGIST [facility] Blood (Blood, Venous) 10/06/2023 12:17 PM OPHTHALMIC MEDICAL TECHNOLOGIST 10/06/2023 3:57 PM OPHTHALMIC MEDICAL TECHNOLOGIST Katja Umana M.D. LAB MICROBIOLOGY - B LOOD ORDERABLES [facility] [address] [place] [address] [facility] [address] [place] [id number] * HBs Antibody, Serum (10/06/2023 12:17 PM OPHTHALMIC MEDICAL TECHNOLOGIST) HBs Antibody, S Negative 10/06/2023 9:14 PM OPHTHALMIC MEDICAL TECHNOLOGIST [facility] Comment: Patient is presumed to be not immune to infection with HBV. ----REFERENCE VALUE---- Unvaccinated: Negative Vaccinated: Positive HBs Antibody, Quantitative, S <5.0 mIU/mL 10/06/2023 9:14 PM OPHTHALMIC MEDICAL TECHNOLOGIST [facility] Comment: ----REFERENCE VALUE---- Unvaccinated: <5.0 Vaccinated: >=12.0 Blood (Blood, Venous) 10/06/2023 12:17 PM OPHTHALMIC MEDICAL TECHNOLOGIST 10/06/2023 3:57 PM OPHTHALMIC MEDICAL TECHNOLOGIST Katja Umana M.D. LAB MICROBIOLOGY - B LOOD ORDERABLES [facility] [address] [place] [address] [facility] [address] [place] [address] * Hepatitis B Surface Antigen (10/06/2023 12:17 PM OPHTHALMIC MEDICAL TECHNOLOGIST) HBs Antigen, S Negative Negative 10/06/2023 8:55 PM OPHTHALMIC MEDICAL TECHNOLOGIST [facility] Blood (Blood, Venous) 10/06/2023 12:17 PM OPHTHALMIC MEDICAL TECHNOLOGIST 10/06/2023 3:57 PM OPHTHALMIC MEDICAL TECHNOLOGIST Katja Umana M.D. 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
--- OUTSIDE RECORDS SUMMARY | 2023-12-23 14:20 | XMS_ITS | Clinical Summary ---
Author Name Unknown Organization [facility] Address [place], [place] [address] Care Team Providers Care Plane Tender Name Role Phone Jared Delgado MD Primary Care Provider [phone] Allergies No known active allergies Medications Medication Sig Dispensed Refills Start Date End Date Status furosemide (LASIX) 20 mg tabletIndications:A scites due to alcoholic cirrhosis (HC) Take 1 Tablet (20 mg) by mouth every morning. Hold if systolic blood pressure (top number) is less than 110 30 Tablet 12/07/2023 Active pantoprazole (PROTONIX) 40 mg delayed-release tabletIndications:G astrointestinal hemorrhage associated with duodenal ulcer Take 1 Tablet (40 mg) by mouth two times daily before meals. for 2 weeks, once daily thereafter. 60 Tablet 12/06/2023 Active spironolactone (ALDACTONE) 50 mg tabletIndications:A scites due to alcoholic cirrhosis (HC) Take 1 Tablet (50 mg) by mouth every morning. Hold if systolic blood pressure (top number) is less than 110 30 Tablet 12/07/2023 Active traZODone (DESYREL) 50 mg tablet Take 50 mg by mouth at bedtime. 11/22/2023 12/22/2023 Active Problems Problem Noted Date Diagnosed Date Alcohol abuse 12/02/2023 Cirrhosis 12/02/2023 GI Bleed due to duodenal ulcer 12/02/2023 Tobacco abuse 12/02/2023 Ascites 12/02/2023 Anemia 12/02/2023 Hyponatremia 12/02/2023 Encounters Date Type Department Care Team Description 4 Travel 4 1:10 PM CDT Anesthesia Event [address] [address] Gabe Webber MD 4 12:12 PM CDT - 4 12:57 PM CDT Surgery [address] [address] Janet Torres MBBS ESOPHAGOGASTRODUODENOSCOPY 4 8:52 PM CDT - 4 5:25 PM CDT Hospital Encounter [address] [address] s, U Hospitalist zachery Jett, MD Kim Hunter, MD Jose Elias Roper, Freddy Kennedy MD Alcohol abuse (Primary Dx); Ascites due to alcoholic cirrhosis (HC); Gastrointestinal hemorrhage associated with duodenal ulcer Discharge Disposition: Home Self Care from Last 3 Months Social History Tobacco Use Types Packs/Day Years Used Date Smoking Tobacco: Never Assessed Social Connections Answer Date Recorded Frequency of Communication with Friends and Fami ly Not on file 12/02/2023 Sex and Gender Information Value Date Recorded Sex Assigned at Not on file Gender Identity Not on file Sexual Orientation Not on file Obstetrics History Last Filed Vital Signs Vital Sign Reading Time Taken Comments Blood Pressure 106/53 12/06/2023 3:14 PM CDT Pulse 79 12/06/2023 3:14 PM CDT Temperature 36.4 ??C (97.5 ??F) 12/06/2023 3:14 PM CD T Respiratory Rate 16 12/06/2023 3:14 PM CDT Oxygen Saturation 100% 12/06/2023 3:14 PM CDT Inhaled Oxygen Concentration - - Weight 48.2 kg (106 lb 3.2 oz) 12/06/2023 6:00 A M CDT Height 167.6 cm (5' 6) 12/03/2023 6:00 AM CDT Body Mass Index 17.14 12/03/2023 6:00 AM CDT Plan of Treatment Health Maintenance Due Date Last Done Comments Pneumococcal series for age 6-64 (1 of 2 - PCV) 1966 Tdap 1971 Depression screening for age 12+ 1972 HIV for age 15-65 1975 BMI (ht and wt on same day) for age 18+ 1978 Hepatitis C screening for age 18-79 1978 Tetanus booster 1980 Pap test for age 21-65 1981 Colonoscopy through age 75 2005 Lipids for age 45-75 2005 Mammogram for age 45-75 2005 Zoster (shingles) series for age 50+ (1 of 2) 2010 COVID-19 vaccine series (3 - 2022- season) 2023 11/21/2020, 10/24/2020 Influenza for age 50-64 05/14/2024 Procedures Procedure Name Priority Date/Time Associated Diagnosis Comments SODIUM Timed 12/06/2023 11:25 AM CDT HEMOGLOBIN Early AM 12/06/2023 9:05 AM CDT BASIC METABOLIC PANEL Today 12/05/2023 1:42 PM CDT HEMOGLOBIN Early AM 12/05/2023 1:42 PM CDT HEMOGLOBIN Timed 12/04/2023 1:01 PM CDT BASIC METABOLIC PANEL LUIS ENRIQUE 12/04/2023 9:21 AM CDT AMMONIA Early AM 12/04/2023 9:21 AM CDT SODIUM Early AM 12/04/2023 9:21 AM CDT PROTIME-INR Early AM 12/04/2023 9:21 AM CDT HEMOGLOBIN Early AM 12/04/2023 9:21 AM CDT ANTI HBS QUANT AHS Early AM 12/04/2023 9:21 AM CDT LC HEP A AB TOTAL Early AM 12/04/2023 9:21 AM CDT US PARACENTESIS WITH IMAGING Routine 4:51 PM CDT BODY FLUID CULTURE,STAIN (AEROBIC) Today 12/03/2023 4:20 PM CDT ALBUMIN BODY FLUID Today 12/03/2023 4:20 PM CDT PROTEIN,BODY FLUID Today 12/03/2023 4:20 PM CDT BODY FLUID CELL COUNT/DIF Today 2023 4:20 PM CDT FERRITIN LUIS ENRIQUE 12/03/2023 2:47 PM CDT SODIUM Timed 12/03/2023 2:47 PM CDT HEMOGLOBIN Timed 12/03/2023 2:47 PM CDT PATH TISSUE EXAM Today 12/03/2023 1:23 PM CDT ESOPHAGOGASTRODUODENOSCOPY W ITH HEMOSTASIS 12/03/2023 1:05 PM CDT Duodenal ulcer, portal hypertension gastropathy ESOPHAGOGASTRODUODENOSCOPY W ITH BIOPSY 12/03/2023 1:05 PM CDT Duodenal ulcer, portal hypertension gastropathy ESOPHAGOGASTRODUODENOSCOPY 12/02 1:05 PM CDT Duodenal ulcer, portal hypertension gastropathy ENDOSCOPY 12/03/2023 12:57 PM CDT SCAN-CARDIAC STRIP 12/03/2023 9:08 AM CDT IRON PLUS IRON BINDING CAP LUIS ENRIQUE 12/02 3:34 AM CDT RED CELL MORPHOLOGY Timed 12/03/2023 3:34 AM CDT PLATELET ESTIMATE Timed 12/03/2023 3:34 AM CDT CBC WITH AUTO DIFFERENTIAL Early AM 12/02 3:34 AM CDT MAGNESIUM Early AM 12/03/2023 3:34 AM CDT BASIC METABOLIC PANEL Early AM 12/03/2023 3:34 AM CDT CBC WITH AUTO DIFFERENTIAL Early AM 12/02 3:34 AM CDT SCAN-CARDIAC STRIP 12/02/2023 11:58 PM CDT HEPATIC FUNCTION PANEL LUIS ENRIQUE 10:56 PM CDT SODIUM Timed 12/02/2023 10:56 PM CDT HEMOGLOBIN Timed 12/02/2023 10:56 PM CDT from Last 3 Months Results * (ABNORMAL) SODIUM (12/06/2023 11:25 AM CDT) Only the most recent of4 resultswithin the time period is included. SODIUM 123(L) 136 - 145 mmol/L 12/06/2023 11:58 AM CDT [facility] Blood BLOOD SPECIMEN / Unknown Butterfly / Unknown 12/06/2023 11:25 AM CDT 12/06/2023 11:50 AM CDT Freddy Moctezuma MD CHEMISTRY [facility] SENDOUT INTERNAL ZIP [phone] [place] [address] * (ABNORMAL) HEMOGLOBIN (12/06/2023 9:05 AM CDT) Only the most recent of6 resultswithin the time period is included. HEMOGLOBIN 7.6(L) 12.0 - 16.0 g/dL 12/06/2023 9:29 AM CDT [facility] MCV 94 80 - 100 fL 12/06/2023 9:29 AM CDT [facility] Blood BLOOD SPECIMEN / Unknown Venipuncture / Unknown 12/06/2023 9:05 AM CDT 12/06/2023 9:24 AM CDT Freddy Moctezuma MD HEMATOLOGY [facility] SENDOUT INTERNAL ZIP [phone] [place] [address] * (ABNORMAL) BASIC METABOLIC PANEL (12/05/2023 1:42 PM CDT) Only the most recent of3 resultswithin the time period is included. SODIUM 122(L) 136 - 145 mmol/L 12/05/2023 2:37 PM CDT [facility] POTASSIUM 4.6 3.5 - 5.1 mmol/L 12/05/2023 2:37 PM CDT [facility] CHLORIDE 92(L) 98 - 107 mmol/L 12/05/2023 2:37 PM CDT [facility] CO2,TOTAL 20(L) 22 - 29 mmol/L 12/05/2023 2:37 PM CDT [facility] ANION GAP 10 5 - 18 12/05/2023 2:37 PM CDT [facility] GLUCOSE 97 70 - 99 mg/dL 12/05/2023 2:37 PM CDT [facility] CALCIUM 7.8(L) 8.8 - 10.2 mg/dL 12/05/2023 2:37 PM CDT [facility] BUN 11 8 - 23 mg/dL 12/05/2023 2:37 PM CDT [facility] CREATININE 0.50 0.50 - 0.90 mg/dL 12/05/2023 2:37 PM CDT [facility] BUN/CREAT RATIO 22(H) 10 - 20 2:37 PM CDT [facility] eGFR >90 >90 mL/min/1.7 3m2 12/05/2023 2:37 PM CDT [facility] Comment:As of 2021, eG FR is calculated by the CKD-EPI creatinine equation without race adjustment. ??eGFR can be influenced by muscle mass, exercise, and diet. ??The reported eGFR is an estimation only and is only applicable if the renal function is stable. Blood BLOOD SPECIMEN / Unknown Butterfly / Unknown 12/05/2023 1:42 PM CDT 12/05/2023 2:10 PM CDT Freddy Moctezuma MD CHEMISTRY [facility] SENDOUT INTERNAL ZIP [phone] [place] [address] * LC HEP A AB, TOTAL (12/04/2023 9:21 AM CDT) Hep A Ab Tot Negative Negative 12/08/2023 11:10 AM CDT [facility] Comment: Comment: The HAV total antibody assay detects both IgG and IgM but does not differentiate between them. A negative result suggests susceptibility to infection. A positive result could be due to vaccination, previously resolved infection or active infection. Testing for HAV IgM should be performed if active HAV infection is suspected. [facility] offers profiles that will automatically reflex positive HAV total antibody results to IgM (e.g., panel #[id number] HAV Antibody w/ Rfx). Blood BLOOD SPECIMEN / Unknown Venipuncture / Unknown 12/04/2023 9:21 AM CDT 12/04/2023 9:29 AM CDT Narrative [facility] - 12/08/2023 11:10 AM CDT Performed at: ??[address] ??[id number] Engineer First Assistant: Carlos Piña MD, Phone: ??[phone] Janet DELGADO LABORAT[facility] ([facility]) [address] [place] [address] * ANTI HBS QUANT AHS (12/04/2023 9:21 AM CDT) ANTI HBS QUANT <3.50 mIU/mL 12/04/2023 3:36 PM CDT [facility] Blood BLOOD SPECIMEN / Unknown Venipuncture / Unknown 12/04/2023 9:21 AM CDT 12/04/2023 9:29 AM CDT Narrative [facility] - 12/04/2023 3:36 PM CDT <8.5 Considered not immune to HBV infection. >=8.5 to < 11.5 Indeterminate result, unable to dertermine if antibody is present at levels consistent with immunity. >= 11.5 Considered immune to HBV infection. Biotin supplements may cause clinically significant interference for this test assay. ??If interference is suspected, it is strongly recommended that biotin is discontinued for at least one week prior to retesting. Janet JULIOBS SEND OUTS [facility] [address] [place] [address], * (ABNORMAL) PROTIME-INR (12/04/2023 9:21 AM CDT) INR 1.7(H) <1.3 12/04/2023 9:58 AM CDT [facility] PROTIME 18.5(H) 10.3 - 12.3 sec 12/04/2023 9:58 AM CDT [facility] Blood BLOOD SPECIMEN / Unknown Venipuncture / Unknown 12/04/2023 9:21 AM CDT 12/04/2023 9:30 AM CDT [facility] - 12/04/2023 9:58 AM CDT ?Therapeutic Range 2.0-3.0 for most anticoagulated patients 2.5-3.5 or 4.0 for high risk patients The INR is only used for patients on stable oral anticoagulant therapy. It makes no significant contribution to the diagnosis or treatment of patients whose Protime is prolonged for other reasons. INR results are increased when heparin levels exceed 1.0 U/mL, which corresponds to an aPTT >125 seconds if the patient is on UFH. Felipe Alvarez MD HEMATOLOGY [facility] SENDOUT INTERNAL ZIP [phone] [place] [address] * (ABNORMAL) AMMONIA (12/04/2023 9:21 AM CDT) AMMONIA 129(HH) 16 - 60 umol/L 12/04/2023 10:05 AM CDT [facility] Blood BLOOD SPECIMEN / Unknown Venipuncture / Unknown 12/04/2023 9:21 AM CDT 12/04/2023 9:28 AM CDT Narrative [facility] - 12/04/2023 10:05 AM CDT 1. ??Sulfasalazine and its metabolite Sulfapyridine at therapeutic concentrations may lead to falsely low results. 2. ??Temozolomide and its metabolite MTIC may lead to falsely elevated results, and its metabolite AIC may lead to falsely low results. Felipe Alvarez MD CHEMISTRY [facility] SENDOUT [place]NAL [address] [phone] [place] [address] * US PARACENTESIS W IMAGING (12/03/2023 4:51 PM CDT) Anatomical Region Laterality Modality CHEST, Lung, THORAX Ultrasound 12/03/2023 4:51 PM CDT Impressions 12/03/2023 4:56 PM CDT 1. ??Status post ultrasound-guided paracentesis. Reference CPT Code: 03882 Narrative 12/03/2023 4:56 PM CDT For Patients: As a result of the Cures Act, medical imaging exams and procedure reports are released immediately into your electronic medical record. You may view this report before your referring provider. If you have questions, please contact your health care provider. EXAM: 1. PARACENTESIS 2. ULTRASOUND GUIDANCE LOCATION: [facility] DATE: 12/03/2023 INDICATION: Ascites. PROCEDURE: Informed consent obtained. Time out performed. The abdomen was prepped and draped in a sterile fashion. 10 mL of 1% lidocaine was infused into local soft tissues. A 5 Belgian catheter system was introduced into the abdominal ascites under ultrasound guidance. 7.1 liters of clear fluid were removed and sent to lab if requested. Patient tolerated procedure well. Ultrasound imaging was obtained and placed in the patient's permanent medical record. Procedure Note Eduardo Palacios MD - 12/03/2023 For Patients: As a result of the 21st Century Cures Act, medical imagingexams and procedure reports are released immediately into your electronicmedical record. You may view this report before your referring provider.If you have questions, please contact your health care provider. EXAM: 1. PARACENTESIS 2. ULTRASOUND GUIDANCE LOCATION: [facility] DATE: 12/03/2023 INDICATION: Ascites. PROCEDURE: Informed consent obtained. Time out performed. The abdomen wasprepped and draped in a sterile fashion. 10 mL of 1% lidocaine was infusedinto local soft tissues. A 5 Belgian catheter system was introduced intothe abdominal ascites under ultrasound guidance. 7.1 liters of clear fluid were removed and sent to lab if requested. Patient tolerated procedure well. Ultrasound imaging was obtained and placed in the patient's permanentmedical record. IMPRESSION: 1. Status post ultrasound-guided paracentesis. Reference CPT Code: 46447 Janet DELGADO US * Body Fluid Culture and Stain (12/03/2023 4:20 PM CDT) CULTURE No Growth. 12/08/2023 7:52 AM CDT [facility] GRAM STAIN 2+ PMNs 12/08/2023 7:52 AM CDT [facility] GRAM STAIN No organisms seen 12/08/2023 7:52 AM CDT [facility] GRAM STAIN No Epithelial cells 12/08/2023 7:52 AM CDT [facility] GRAM STAIN No RBCs 12/08/2023 7:52 AM CDT [facility] GRAM STAIN Gram stain performed by [place], [place] 12/08/2023 7:52 AM CDT [facility] Body Fluid PERITONEAL FLUID SPECIMEN / Unknown Non-Blood / Unknown 12/03/2023 4:20 PM CDT 12/03/2023 4:40 PM CDT Janet DELGADO MICROBIOLOGY [facility] [address] [place] [address], [facility] SENDOUT INTERNAL ZIP [phone] [place] [address] * Body Fluid Cell Count and Differential (12/03/2023 4:20 PM CDT) BODY FLUID SOURCE Ascitic Fluid 12/03/2023 7:27 PM CDT [facility] BODY FLUID COLOR Yellow 12/03/2023 7:27 PM CDT [facility] BODY FLUID CLARITY Clear 12/03/2023 7:27 PM CDT [facility] TOTAL NUCLEATED CELLS, BF 85 /cu mm 12/03/2023 7:27 PM CDT [facility] RED BLOOD COUNT, BODY FLUID <2,000 /cu mm 12/03/2023 7:27 PM CDT [facility] % NEUTROPHILS, BODY FLUID 17 % 12/03/2023 7:27 PM CDT [facility] % LYMPHOCYTES, BODY FLUID 25 % 12/03/2023 7:27 PM CDT [facility] % MONO/MACRO, BODY FLUID 58 % 12/03/2023 7:27 PM CDT [facility] Body Fluid PERITONEAL FLUID SPECIMEN / Unknown Non-Blood / Unknown 12/03/2023 4:20 PM CDT 12/03/2023 4:40 PM CDT [facility] - 12/03/2023 7:27 PM CDT TO ORDER BODY FLUID CULTURES, USE; [id number] BODY FLUID CULTURE, STAIN Janet DELGADO BODY FLUID [facility] SENDOUT INTERNAL ZIP [phone] [place] [address] * Protein, Body Fluid (12/03/2023 4:20 PM CDT) SPECIMEN SOURCE Peritoneal fluid 12/03/2023 5:26 PM CDT [facility] PROTEIN,BODY FLUID 0.6 g/dL 12/03/2023 5:26 PM CDT [facility] Comment:No Reference Range D efined. Body Fluid PERITONEAL FLUID SPECIMEN / Unknown Non-Blood / Unknown 12/03/2023 4:20 PM CDT 12/03/2023 4:40 PM CDT [facility] - 12/03/2023 5:26 PM CDT Pleural: Pleural fluid transudate total protein to serum total protein ratio typically </=0.5. Pleural fluid exudate total protein to serum total protein ratio typically >0.5. Peritoneal: Ascitic fluid total protein is a reflection of serum protein concentration. May be useful in differentiating secondary bacterial peritonitis from spontaneous bacterial peritonitis when at least two of the three criteria are met in ascetic fluid: Total Protein > 1.0 g/dL Glucose < 50 mg/dL LDH > Upper reference limit for serum Ascitic fluid total protein may be elevated > 2.5 g/dL in patients with high albumin gradient ascites caused by heart failure. Test developed & performance characteristics determined by [employer], [place], [place] consistent with CLIA requirements. Not cleared or approved by [place] FDA. Janet Torres [facility] BODY FLUID Performing Organization Address [facility]/ZIP Co de Phone Number [facility] SENDOUT INTERNAL ZIP [phone] [place] [address] * Albumin, Body Fluid (12/03/2023 4:20 PM CDT) SPECIMEN SOURCE Peritoneal fluid 12/03/2023 5:26 PM CDT [facility] ALBUMIN,BODY FLUID 0.3 g/dL 12/03/2023 5:26 PM CDT [facility] Comment:No Reference Range D efined. Body Fluid PERITONEAL FLUID SPECIMEN / Unknown Non-Blood / Unknown 12/03/2023 4:20 PM CDT 12/03/2023 4:40 PM CDT [facility] - 12/03/2023 5:26 PM CDT Peritoneal: ??SAAG >/= 1.1 g/dL indicates portal Hypertension. Pleural: ? SEAG > 1.2 g/dL is consistent with a transudative process and may ?be more accurate in patients receiving diuretic therapy. Test developed & performance characteristics determined by [employer], [place], [place] consistent with CLIA requirements. Not cleared or approved by [place] FDA. Janet JULIO BODY FLUID Performing Organization Address [facility]/ZIP Co de Phone Number [facility] SENDOUT INTERNAL ZIP [phone] [place] [address] * FERRITIN (12/03/2023 2:47 PM CDT) Pathologist [facility] FERRITIN 131.0 15.0 - 150.0 ng/mL 12/03/2023 9:31 PM CDT [facility] Blood BLOOD SPECIMEN / Unknown Venipuncture / Unknown 12/03/2023 2:47 PM CDT 12/03/2023 2:51 PM CDT Janet DELGADO CHEMISTRY [facility] [employer] [facility] [address] [place] [address], * PATH TISSUE EXAM (12/03/2023 1:23 PM CDT) [facility] Case Report Pathology Report ?Case: [id number] ? Authorizing Provider: ??Brian, Janet, SANDY ?Collected: ? 12/03/2023 1323 ? Ordering Location: ? [facility] ?Received: ?12/03/2023 1527 ? Pathologist: ? Macro Tijerina MD ? Specimens: ?? A) - Duodenal Ulcer ? B) - Gastric Biopsy, random gastric ? 4 1:56 PM CDT [facility] Final Diagnosis A) DUODENUM, ULCER, BIOPSY: 1. Erosive duodenitis, favor peptic or NSAID injury 2. Negative for celiac disease 3. Negative for dysplasia and malignancy B) STOMACH, BIOPSY: 1. Antral and body mucosae with subtle vascular changes consistent with ?? portal hypertensive gastropathy 2. Background with mild non-specific chronic inflammation (see comment) ?? a. Sampling: Antral and body mucosae ?? b. Distribution: Antral and body mucosae 2. Negative for atrophic gastritis 3. Negative for Helicobacter (Helicobacter immunohistochemistry negative) 4 1:56 PM T [facility] Comment B. Mild chronic inflammation in the stomach in the absence of Helicobacter often remains unexplained, but it could reflect prior or treated Helicobacter infection. The likelihood of histologically undetected Helicobacter is quite low in our opinion. 4 1:56 PM T [facility] Clinical Information Ms. Redmond is a 63 y.o. with hematemesis and iron deficiency anemia secondary to chronic blood loss. Upper GI endoscopy shows grade 1 esophageal varices, diffuse mild erythema throughout the stomach, and a superficial duodenal ulcer. 4 1:56 PM T [facility] Gross Description A) Received in formalin are 3 perez mucosal fragments averaging 2 mm in greatest dimension, which are entirely submitted in one cassette. It is labeled with the patient's name and designated duodenal ulcer. B) Received in formalin are 3 perez mucosal fragments averaging 3 mm in greatest dimension, which are entirely submitted in one cassette. It is labeled with the patient's name and designated gastric biopsy, random gastric. Kalie Torres 12/03/2023 4:32 PM 4 1:56 PM T [facility] Microscopic Description The final diagnosis is based on microscopic examination of appropriate sections of all specimens. 1:56 PM CDT [facility] Additional Information Interpreted at [facility] - [address], [place] [address] 1:56 PM CDT [facility] Biopsy (Duodenal Ulcer) 12/03/2023 1:23 PM CDT 12/03/2023 3:27 PM CDT Biopsy specimen (specimen) GASTRIC BIOPSY SPECIMEN / Unknown 12/03/2023 1:29 PM CDT 12/03/2023 3:27 PM CDT Janet DELGADO PATHOLOGY/CYTOLOGY [facility] [address] [place] [address], [place] * ENDOSCOPY (12/03/2023 12:57 PM CDT) 12/03/2023 12:5 7 PM CDT Narrative Transcriptions Janet Torres MBBS - 12/03/2023 2:21 PM CDT Patient Name: Monique Redmond Procedure Date: 12/03/2023 Gender: Female Date of : 1960 Admit Type: Inpatient Procedure: Upper GI endoscopy Proceduralist: Janet Torres MD - [facility] Indications/Pre-Op Diagnosis: Hematemesis, Iron deficiency anemiasecondary to chronic blood loss Medications: Propofol per Anesthesia Procedure Description: The patient had risks, benefits and alternatives explained to andgave informed consent. The patient had a stable cardiopulmonary status and judged an adequate candidate for conscious sedation. The endoscope [id number] was introduced through the mouth, and advanced to the third part of duodenum. The upper GI endoscopy was accomplished without difficulty. The patient tolerated the procedure well. Complications: No immediate complications. Estimated Blood Loss & Specimen: Estimated blood loss was minimal. Findings: Esophagogastric landmarks were identified: the Z-line was found at 40 cm, the upper extent of the gastric folds was found at 40 cm and the site of the diaphragmatic hiatus was found at 40 cm from theincisors. Grade I varices were found in the lower third of the esophagus. They were small in size. Diffuse mildly erythematous mucosa without bleeding was found in the entire examined stomach. Biopsies were taken with a cold forceps for Helicobacter pylori testing. Estimated blood loss was minimal. One non-bleeding superficial duodenal ulcer with a clean ulcer base (Rohith Class III) was found in the first portion of the duodenum.The lesion was 20 mm in largest dimension. Area was successfully injected with 4 mL of a 0.1 mg/mL solution of epinephrine for hemostasis asthe area started oozing somewhat due to scope trauma. Estimated bloodloss was minimal. Biopsies were taken from the ulcer. Impressions/Post-Op Diagnosis: - Esophagogastric landmarks identified. - Grade I esophageal varices. - Erythematous mucosa in the stomach. Biopsied. - Non-bleeding duodenal ulcer with a clean ulcer base (Rohith Class III). Injected. Recommendation: - [facility]. - Low sodium diet. - Use Protonix (pantoprazole) 40 mg PO BID for 2 months. - Await pathology results. - No ibuprofen, naproxen, or other non-steroidal anti-inflammatorydrugs. Janet Torres MD 12/03/2023 2:21:36 PM Note Initiated On: 12/03/2023 12:57 PM Total Procedure Duration Time 0 hours 12 minutes 18 seconds Janet Torres MBBS PROCEDURE ORD * SCAN-CARDIAC STRIP (12/03/2023 9:08 AM CDT) Scanner OTHER * (ABNORMAL) CBC WITH AUTO DIFFERENTIAL (12/03/2023 3:34 AM CDT) WHITE BLOOD COUNT 8.7 4.5 - 11.0 thou/cu mm 12/03/2023 5:12 AM CDT [facility] RED BLOOD COUNT 2.21(L) 4.00 - 5.20 mil/cu mm 12/03/2023 5:12 AM [facility] HEMOGLOBIN 7.3(L) 12.0 - 16.0 g/dL 12/03/2023 5:12 AM T [facility] HEMATOCRIT 21.5(L) 33.0 - 51.0 % 12/03/2023 5:12 AM [facility] MCV 97 80 - 100 fL 12/03/2023 5:12 AM [facility] MCH 33.0 26.0 - 34.0 pg 12/03/2023 5:12 AM [facility] MCHC 34.0 32.0 - 36.0 g/dL 12/03/2023 5:12 AM [facility] RDW 17.2(H) 11.5 - 15.5 % 12/03/2023 5:12 AM T [facility] PLATELET COUNT 167 140 - 440 thou/cu mm 12/03/2023 5:12 AM T [facility] MPV 8.9 6.5 - 11.0 fL 12/03/2023 5:12 AM T [facility] NRBC 0.0 % 12/03/2023 5:12 AM T [facility] ABS NRBC 0.0 thou /cu mm 12/03/2023 5:12 AM T [facility] % NEUT 65.0 % 12/03/2023 5:12 AM T [facility] % LYMPH 25.6 % 12/03/2023 5:12 AM T [facility] % MONO 7.5 % 12/03/2023 5:12 AM CDT [facility] % EOS 1.0 % 12/03/2023 5:12 AM CDT [facility] % BASO 0.3 % 12/03/2023 5:12 AM CDT [facility] % IMMATURE GRAN (METAS,MYELOS,WI OS) 0.6 % 12/03/2023 5:12 AM CDT [facility] ABSOLUTE NEUTROPHILS 5.7 1.7 - 7.0 thou/cu mm 12/03/2023 5:12 AM CDT [facility] ABSOLUTE LYMPHOCYTES 2.2 0.9 - 2.9 thou/cu mm 12/03/2023 5:12 AM CDT [facility] ABSOLUTE MONOCYTES 0.7 <0.9 thou/cu mm 12/03/2023 5:12 AM CDT [facility] ABSOLUTE EOSINOPHILS 0.1 <0.5 thou/cu mm 12/03/2023 5:12 AM CDT [facility] ABSOLUTE BASOPHILS 0.0 <0.3 thou/cu mm 12/03/2023 5:12 AM CDT [facility] ABSOLUTE IMMATURE GRANULOCYTES(MET ,MYELOS,PROS) 0.1 <0.3 thou/cu mm 12/03/2023 5:12 AM CDT [facility] Blood BLOOD SPECIMEN / Unknown Butterfly / Unknown 12/03/2023 3:34 AM CDT 12/03/2023 3:37 AM CDT Adama Jett MD HEMATOLOGY [facility] SENDOUT INTERNAL ZIP [phone] [place] [phone] * (ABNORMAL) RED CELL MORPHOLOGY (12/03/2023 3:34 AM CDT) POLYCHROMASIA Slight 12/03/2023 5:12 AM CDT [facility] SCHISTOCYTES Few 12/03/2023 5:12 AM CDT [facility] RBC COMMENT Present(A) RBC morphology appears normal, RBC morphology within normal limits for newborns. 12/03/2023 5:12 AM CDT [facility] Blood BLOOD SPECIMEN / Unknown Butterfly / Unknown 12/03/2023 3:34 AM CDT 12/03/2023 3:37 AM CDT Adama Jett MD HEMATOLOGY [facility] SENDOUT INTERNAL ZIP [phone] [place] [phone] * PLATELET ESTIMATE (12/03/2023 3:34 AM CDT) PLATELET ESTIMATE Adequate Adequate, No estimate 12/03/2023 5:12 AM CDT [facility] Blood BLOOD SPECIMEN / Unknown Butterfly / Unknown 12/03/2023 3:34 AM CDT 12/03/2023 3:37 AM CDT Adama Jett MD HEMATOLOGY Performing Organization Address [facility]/ZIP Co de Phone Number [facility] SENDOUT INTERNAL ZIP [phone] [place] [phone] * (ABNORMAL) IRON PLUS IRON BINDING CAP (12/03/2023 3:34 AM CDT) IRON 49 37 - 145 ug/dL 12/03/2023 3:46 PM CDT [facility] UIBC (UNSATURATED) 67(L) 112 - 347 ug/dL 12/03/2023 3:46 PM CDT [facility] IRON BINDING CAPACITY 116(L) 250 - 400 ug/dL 12/03/2023 3:46 PM CDT [facility] IRON,% SATURATION 42 14 - 50 % 12/03/2023 3:46 PM CDT [facility] Blood BLOOD SPECIMEN / Unknown Butterfly / Unknown 12/03/2023 3:34 AM CDT 12/03/2023 3:37 AM CDT Janet JULIOBS CHEMISTRY [facility] SENDOUT INTERNAL ZIP [phone] [place] [phone] * (ABNORMAL) MAGNESIUM (12/03/2023 3:34 AM CDT) MAGNESIUM 2.5(H) 1.6 - 2.4 mg/dL 12/03/2023 3:57 AM CDT [facility] Blood BLOOD SPECIMEN / Unknown Butterfly / Unknown 12/03/2023 3:34 AM CDT 12/03/2023 3:37 AM CDT Adama Jett MD CHEMISTRY [facility] SENDOUT INTERNAL ZIP [phone] [place] [address] * SCAN-CARDIAC STRIP (12/02/2023 11:58 PM CDT) Scanner OTHER * (ABNORMAL) HEPATIC FUNCTION PANEL (12/02/2023 10:56 PM CDT) ALBUMIN 2.8(L) 4.0 - 4.9 g/dL 12/02/2023 11:22 PM CDT [facility] PROTEIN,TOTAL 6.5 6.0 - 8.0 g/dL 12/02/2023 11:22 PM CDT [facility] BILIRUBIN,TOTAL 3.0(H) 0.0 - 1.2 mg/dL 12/02/2023 11:22 PM CDT [facility] BILIRUBIN,DIRECT 1.3(H) 0.0 - 0.3 mg/dL 12/02/2023 11:22 PM CDT [facility] BILIRUBIN,INDIRE CT 1.7(H) 0.2 - 0.8 mg/dL 12/02/2023 11:22 PM CDT [facility] ALK PHOSPHATASE 114(H) 35 - 104 IU/L 12/02/2023 11:22 PM CDT [facility] ALT (SGPT) 31 10 - 35 IU/L 12/02/2023 11:22 PM CDT [facility] AST (SGOT) 87(H) 10 - 35 IU/L 12/02/2023 11:22 PM CDT [facility] Blood BLOOD SPECIMEN / Unknown Venipuncture / Unknown 12/02/2023 10:56 PM CDT 12/02/2023 11:01 PM CDT Adama Jett MD CHEMISTRY [facility] SENDOUT INTERNAL ZIP [phone] [place] [address] from Last 3 Months Advance Directives * Full Code (Latest Code Status on File) Date Activated Date Inactivated Comments 12/02/2023 9:46 PM 12/06/2023 7:35 PM Question Answer Comments Code Status Discussion: Reviewed Preferences Care Teams Plane Tender Relationship Specialty Start Date End Date Jared Delgado MD [address] [place] [phone] PCP - General Family Practice 12/04/23
--- OUTSIDE RECORDS SUMMARY | 2023-12-23 14:20 | XMS_ITS | Referral Summary ---
Author Name Unknown Organization [facility] Address [address] [place] [id number] Care Team Providers Care Disability Manager Name Role Phone Elsewhere, Pcp Primary Care Provider Unavailabl e Source Comments Patient records contain information from all sites at [facility]. For routine questions regarding patient records, call [phone] during business hours, M-F 8:00 AM - 5:00 PM Central Time. Record requests for emergency care only can be directed to [phone] at any time.[facility] Encounters Date Type Department Care Team Description 12/21/2023 Clinical Communication Brent Alvarenga [facility] for Transplantation and Clinical Regeneration in [place], [place] [address] [place] [address] Katja Umana M.D. 12/20/2023 Orders Only Department of Nicotine Dependence, [facility] in [place], [place] [address] [place] [address] Sudha Bernstein M.A., Yesy.I.C.S.W., M.S.W. 12/20/2023 Clinical Communication Division of Gastroenterology in [place], [place] [address] [place] [address] Katja Umana M.D. Scheduling 12/20/2023 2:00 PM CDT Virtual Visit Department of Nicotine Dependence, [facility], in [place], [place] [address] [place] [address] Sudha Bernstein M.A., Yesy.I.C.S.W., M.S.W. Nicotine Dependence Cigarettes With Withdrawal (Primary Dx) 12/16/2023 9:34 AM CDT - 12/16/2023 11:22 AM CDT Hospital Encounter Department of Radiology, [facility], in [place], [place] [address] [place] [phone] Katja Umana M.D. Alcoholic Cirrhosis Of Liver With Ascites (HCC); Ascites Discharge Disposition: Home or Self Care 12/09/2023 4:30 PM CDT Office Visit [facility] Transplantation and Clinical Regeneration in [address] [address] Katja Umana M.D. Olson, Jody C, M.D. Alcoholic Cirrhosis Of Liver With Ascites (HCC) (Primary Dx); Ascites; Sarcopenia 12/08/2023 10:30 AM CDT Comprehensive Visit Section of Infectious Diseases in [address] [address] Katja Umana M.D. Brianna Anglin APRN, C.N.P., D.N.P. 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 Order Request 11/19/2023 10:08 AM FILE DRAWER FINISHER - 11/19/2023 12:51 PM FILE DRAWER FINISHER Hospital Encounter Department of Radiology, [facility], in [place], [place] [address] [place] [phone] Felipe Morales M.D. Ascites Discharge Disposition: Home or Self Care 11/18/2023 Orders Only Department of Nicotine Dependence, [place], [place] [address] [place] [address] Sudha Bernstein M.A., Yesy.Viv.C.S.W., M.S.W. 11/18/2023 11:00 AM FILE DRAWER FINISHER Virtual Visit Department of Nicotine Dependence, [place], [place] [address] [place] [address] Sudha Bernstein M.A., Yesy.Viv.C.S.W., M.S.W. Nicotine Dependence Cigarettes With Withdrawal (Primary Dx) 11/11/2023 Orders Only Department of Nicotine Dependence, [place], [place] [address] [place] [address] Sudha Bernstein M.A., NubiaC.S.W., M.S.W. 11/11/2023 Clinical Communication Department of Nicotine Dependence, [place], [place] [address] [place] [address] Sudha Bernstein M.A., Yesy.Viv.C.S.W., M.S.W. NDC Med Request 11/11/2023 11:00 AM FILE DRAWER FINISHER Virtual Visit Department of Nicotine Dependence, [place], [place] [address] [place] [address] Sudha Bernstein M.A., Yesy.I.C.S.W., M.S.W. Nicotine Dependence Cigarettes With Withdrawal (Primary Dx) 11/05/2023 9:29 AM FILE DRAWER FINISHER - 11/05/2023 12:20 PM FILE DRAWER FINISHER Hospital Encounter Department of Radiology, [place], [place] [address] [place] [address] Felipe Morales M.D. Ascites Discharge Disposition: Home or Self Care 11/01/2023 12:28 PM FILE DRAWER FINISHER - 11/01/2023 11:59 PM FILE DRAWER FINISHER Hospital Encounter Department of Laboratory Medicine in [address] [phone] Katja Umana M.D. Alcoholic Cirrhosis Of Liver With Ascites (HCC) Discharge Disposition: Home or Self Care 10/28/2023 Orders Only [facility] in [place], [place] [address] [place] [phone] Katja Umana M.D. Alcoholic Cirrhosis Of Liver With Ascites (HCC) (Primary Dx) 10/28/2023 Orders Only Department of Nicotine Dependence, [place], [place] [address] [place] [phone] Sudha Bernstein M.A., L.I.C.S.W., M.S.W. 10/28/2023 Clinical Communication Department of Nicotine Dependence, [place], [place] [address] [place] [phone] Sudha Bernstein M.A., L.I.C.S.W., M.S.W. NDC Med Request 10/28/2023 11:00 AM FILE DRAWER FINISHER Virtual Visit Department of Nicotine Dependence, [place], [place] [address] [place] [address] Romana Diane M.D., Ph.D. Sudha Bernstein M.A., L.I.C.S.W., M.S.W. Nicotine Dependence Cigarettes 10/27/2023 10:26 AM FILE DRAWER FINISHER - 10/27/2023 11:59 PM FILE DRAWER FINISHER Hospital Encounter Department of Laboratory Medicine in [address] [address] Katja Umana M.D. Alcoholic Cirrhosis Of Liver With Ascites (HCC); Alcohol Moderate Or Severe Use Disorder (Dependence) Uncomplicated (HCC) Discharge Disposition: Home or Self Care 10/27/2023 10:26 AM FILE DRAWER FINISHER - 10/27/2023 11:59 PM FILE DRAWER FINISHER Hospital Encounter Department of Laboratory Medicine in [address] [phone] Romana Diane M.D., Ph.D. Alcohol Moderate Or Severe Use Disorder (Dependence) Uncomplicated (HCC) Discharge Disposition: Home or Self Care 10/24/2023 Clinical Communication Division of Gastroenterology in [place], [place] [address] [place] [phone] Katja Umana M.D. 10/22/2023 7:27 AM FILE DRAWER FINISHER - 10/22/2023 3:44 PM FILE DRAWER FINISHER Hospital Encounter Department of Radiology, [facility] in [place], [place] [address] [place] [phone] Katja Umana M.D. Ascites Discharge Disposition: Home or Self Care 10/20/2023 1:00 PM FILE DRAWER FINISHER - 10/20/2023 11:59 PM FILE DRAWER FINISHER Hospital Encounter Department of Laboratory Medicine in [address] [phone] Katja Umana M.D. Ascites Discharge Disposition: Home or Self Care 10/18/2023 Clinical Communication Division of Gastroenterology in [place], [place] [address] [place] [phone] Katja Umana M.D. 10/15/2023 10:40 AM FILE DRAWER FINISHER Telemedicine Division of Gastroenterology in [place], [place] [address] [place] [phone] Katja Umana M.D. Ascites (Primary Dx); Alcoholic Cirrhosis Of Liver With Ascites (HCC); Esophageal Varices Without Bleeding (HCC) 10/09/2023 Documentation Division of Gastroenterology in [place], [place] [address] [place] [phone] Joy Rudd M.B.B.S. 10/09/2023 Nurse Triage Department of Family Medicine, [address] [address] Katharine Domínguez R.N. Follow-up 10/08/2023 3:20 PM FILE DRAWER FINISHER Ancillary Procedure Department of Gastroenterology 10/08/2023 3:19 PM FILE DRAWER FINISHER Anesthesia Event Division of Gastroenterology in [place], [place] [address] [place] [phone] Jeffy Moy, ACCORDION MAKER, Joshua Orellana M.D. 10/08/2023 Clinical Communication Division of Gastroenterology in [place], [place] [address] [place] [phone] Felipe Morales M.D. Hepatobiliary (Ascites elijah) 10/08/2023 10:43 AM FILE DRAWER FINISHER - 10/08/2023 1:05 PM FILE DRAWER FINISHER Hospital Encounter Department of Radiology, [facility] in [address] [address] Katja Umana M.D. Alcoholic Cirrhosis Of Liver With Ascites (HCC) Discharge Disposition: Home or Self Care 10/08/2023 1:09 PM FILE DRAWER FINISHER - 10/08/2023 4:27 PM FILE DRAWER FINISHER Hospital Encounter Division of Gastroenterology in [address] [address] Katja Umana M.D. Alcoholic Cirrhosis Of Liver With Ascites (HCC) Discharge Disposition: Home or Self Care 10/07/2023 9:50 AM FILE DRAWER FINISHER - 10/07/2023 11:59 PM FILE DRAWER FINISHER Hospital Encounter Department of Cardiovascular Diseases in [address] [address] Katja Umana M.D. Alcoholic Cirrhosis Of Liver With Ascites (HCC) Discharge Disposition: Home or Self Care 10/06/2023 12:45 PM FILE DRAWER FINISHER - 10/06/2023 11:59 PM FILE DRAWER FINISHER Hospital Encounter Department of Radiology, [facility], in [address] [phone] Katja Umana M.D. Alcoholic Cirrhosis Of Liver With Ascites (HCC) Discharge Disposition: Home or Self Care 10/06/2023 11:00 AM FILE DRAWER FINISHER [facility] [place], [place] [address] [place] [phone] Ebony Back M.D. Leise, Michael D, M.D. Ascites; Alcoholic Cirrhosis Of Liver With Ascites (HCC) 10/06/2023 2:00 PM FILE DRAWER FINISHER Education Division of Gastroenterology in [place], [place] [address] [place] [address] Ebony Back M.D. Orth, Dianne M, R.N. Ascites; Alcoholic Cirrhosis Of Liver With Ascites (HCC) 10/05/2023 Orders Only Department of Oncology in [place], [place] [address] [place] [address] Ebony Back M.D. Ascites (Primary Dx); Alcoholic Cirrhosis Of Liver With Ascites (HCC) from Last 3 Months Allergies No known active allergies Medications Medication [...] 53 tablet 0 10/28/2023 12/07/19 24 Discontinued(The linda completed) varenicline (CHANTIX) 1 mg tabletIndicatio ns:Nicotine [...] per day) 100 each 3 10/28/2023 11/27/19 nicotine (Nicoderm CQ) 7 mg/24 hr patch [...] Alcoholic Cirrhosis Of Liver With Ascites 2023 Immunizations Name Administration Dates Next Due HepB Adult (HEPLISAV-B) 12/08/2023 PCV20 12/08/2023 Rabies (Imovax) 12/09/2020,11/14/2020 Rabies (Rabavert) 12/09/2020,11/14/2020 Tdap 08/03/2017 influenza vaccine quad (FLUZ ONE/FLUARIX) (6 months and older)(PF) 07/13/2019,09/19/2018 Social History Tobacco Use Types Packs/Day Years Used Date Smoking Tobacco: Every Day Cigarettes 0.5 40 Started: 02/11/1983 Passive Smoke Exposure: Never Smokeless Tobacco: Never Alcohol Use Standard Drinks/Week Comments Not Currently 0 (1 standard drink = 0.6 oz pur e alcohol) [facility] Utilities Answer Date Recorded In the past 12 months has e electric, gas, oil, or water company [...] your living situation today? [facility] live 10/15/2023 Sex and Gender Information Value Date Recorded Sex Assigned at Female 10/06/2023 10:50 AM FILE DRAWER FINISHER Gender Identity Female 10/06/2023 10:50 AM FILE DRAWER FINISHER Sexual Orientation Straight 10/06/2023 10 :50 AM FILE DRAWER FINISHER Last Filed Vital Signs Vital Sign Reading Time Taken Comments Blood Pressure 101/47 12/16/2023 10:52 AM CDT Pulse 77 12/16/2023 10:30 AM CDT Temperature 34.7 ??C (94.5 ??F) 12/09/2023 4:21 PM CD T Respiratory Rate 24 10/08/2023 4:16 PM FILE DRAWER FINISHER Oxygen Saturation 100% 12/16/2023 10:30 AM CDT [...] 3:15 PM CDT Appointment Department of Radiology, [facility], in [place], [place] [address] [place] [phone] Katja Umana M.D. [address] [place] [phone] 01/19/2024 10:00 AM CDT Telemedicine Department of Nutrition and Diabetes Education in [place], [place] [address] [place] [phone] Katja Umana M.D. [address] [place] [phone] Taty Cunningham M.S., RDN, LD [address] [place] [phone] Procedures Procedure Name Priority Date/Time Associated Diagnosis Comments US PARACENTESIS WITH IMAGING GUIDANCE RAD - Routine (most inpatients and all outpatients) 12/16/2023 10:53 AM CDT Alcoholic Cirrhosis Of Liver With Ascites (HCC) Ascites PROTHROMBIN TIME (PT), P Routine 024 5:16 PM CDT Alcoholic Cirrhosis Of Liver With Ascites (HCC) COMPREHENSIVE METABOLIC PANEL, S/P Routine 12/09/2023 5:16 PM CDT Alcoholic Cirrhosis Of Liver With Ascites (HCC) CBC WITH DIFFERENTIAL, B Routine 024 5:16 PM CDT Alcoholic Cirrhosis Of Liver With Ascites (HCC) US PARACENTESIS WITH IMAGING GUIDANCE RAD - Routine (most inpatients and all outpatients) 11/19/2023 11:55 AM FILE DRAWER FINISHER Ascites CELL COUNT AND DIFFERENTIAL, BF Timed 11/19/2023 10:50 AM FILE DRAWER FINISHER Ascites BACTERIAL CULTURE, AEROBIC + SUSC Timed 11/19/2023 10:50 AM FILE DRAWER FINISHER Ascites US PARACENTESIS WITH IMAGING GUIDANCE RAD - Routine (most inpatients and all outpatients) 11/05/2023 11:25 AM FILE DRAWER FINISHER Ascites CELL COUNT AND DIFFERENTIAL, BF Timed 11/05/2023 10:07 AM FILE DRAWER FINISHER Ascites BACTERIAL CULTURE, AEROBIC + SUSC Timed 11/05/2023 10:07 AM FILE DRAWER FINISHER Ascites BASIC METABOLIC PANEL, S/P Routine 11/01/2023 12:49 PM FILE DRAWER FINISHER Alcoholic Cirrhosis Of Liver With Ascites (HCC) CONFIRMED DRUG ABUSE PANEL, U Routine 10/27/2023 10:38 AM FILE DRAWER FINISHER Alcohol Moderate Or Severe Use Disorder (Dependence) Uncomplicated (HCC) ETHYL GLUCURONIDE CONFIRMATION, U Routine 10/27/2023 10:38 AM FILE DRAWER FINISHER Alcohol Moderate Or Severe Use Disorder (Dependence) Uncomplicated (HCC) PHOSPHATIDYLETHANOL CONFIRMATION, B Routine 10/27/2023 10:33 AM FILE DRAWER FINISHER Alcohol Moderate Or Severe Use Disorder (Dependence) Uncomplicated (HCC) BASIC METABOLIC PANEL, S/P Routine 10/27/2023 10:33 AM FILE DRAWER FINISHER Alcoholic Cirrhosis Of Liver With Ascites (HCC) US PARACENTESIS WITH IMAGING GUIDANCE RAD - Routine (most inpatients and all outpatients) 10/22/2023 10:18 AM FILE DRAWER FINISHER Ascites CELL COUNT AND DIFFERENTIAL, BF Timed 10/22/2023 8:54 AM FILE DRAWER FINISHER Ascites BACTERIAL CULTURE, AEROBIC + SUSC Timed 10/22/2023 8:54 AM FILE DRAWER FINISHER Ascites BASIC METABOLIC PANEL, S/P Routine 10/20/2023 1:08 PM FILE DRAWER FINISHER Ascites GASTROENTEROLOGY IMAGE EXAM Routine 10/08/2023 3:20 PM FILE DRAWER FINISHER UPPER GI ENDOSCOPY Routine 10/08/2023 3:17 PM FILE DRAWER FINISHER Alcoholic Cirrhosis Of Liver With Ascites (HCC) EGD (ESOPHAGOGASTRODUODENOSC OPY) RESTRICTED Routine 10/08/2023 3:17 PM FILE DRAWER FINISHER Alcoholic Cirrhosis Of Liver With Ascites (HCC) US PARACENTESIS WITH IMAGING GUIDANCE RAD - Routine (most inpatients and all outpatients) 10/08/2023 12:57 PM FILE DRAWER FINISHER Alcoholic Cirrhosis Of Liver With Ascites (HCC) PROTEIN, TOTAL, BF Timed 10/08/2023 11:14 AM FILE DRAWER FINISHER ALBUMIN, BODY FLUID Timed 10/08/2023 11:14 AM FILE DRAWER FINISHER CELL COUNT AND DIFFERENTIAL, BF Timed 10/08/2023 11:14 AM FILE DRAWER FINISHER BACTERIAL CULTURE, AEROBIC + SUSC Timed 10/08/2023 11:14 AM FILE DRAWER FINISHER (TTE) 2D ECHO DOPPLER COLOR AND CONTRAST Routine 10/07/2023 11:01 AM FILE DRAWER FINISHER Alcoholic Cirrhosis Of Liver With Ascites (HCC) DX CHEST AP OR PA AND LATERAL 2 VIEWS RAD - Routine (most inpatients and all outpatients) 10/06/2023 1:32 PM FILE DRAWER FINISHER Alcoholic Cirrhosis Of Liver With Ascites (HCC) AUTOIMMUNE LIVER DISEASE PANEL, S Routine 10/06/2023 12:17 PM FILE DRAWER FINISHER Alcoholic Cirrhosis Of Liver With Ascites (HCC) ALPHA-FETOPROTEIN (AFP) TM, S Routine 10/06/2023 12:17 PM FILE DRAWER FINISHER Alcoholic Cirrhosis Of Liver With Ascites (HCC) PROTHROMBIN TIME (PT), P Routine 024 12:17 PM FILE DRAWER FINISHER Alcoholic Cirrhosis Of Liver With Ascites (HCC) COMPREHENSIVE METABOLIC PANEL, S/P Routine 10/06/2023 12:17 PM FILE DRAWER FINISHER Alcoholic Cirrhosis Of Liver With Ascites (HCC) CBC WITH DIFFERENTIAL, B Routine 024 12:17 PM FILE DRAWER FINISHER Alcoholic Cirrhosis Of Liver With Ascites (HCC) HEPATITIS A IGG AB S Routine 10/06/2023 12:17 PM FILE DRAWER FINISHER Alcoholic Cirrhosis Of Liver With Ascites (HCC) HBC TOTAL AB, SERUM Routine 10/06/2023 12:17 PM FILE DRAWER FINISHER Alcoholic Cirrhosis Of Liver With Ascites (HCC) HEPATITIS B SURFACE ANTIGEN Routine 10/06/2023 12:17 PM FILE DRAWER FINISHER Alcoholic Cirrhosis Of Liver With Ascites (HCC) HBS ANTIBODY, SERUM Routine 10/06/2023 12:17 PM FILE DRAWER FINISHER Alcoholic Cirrhosis Of Liver With Ascites (HCC) HCV AB SCRN W/REFLEX TO HCV PCR, S Routine 10/06/2023 12:17 PM FILE DRAWER FINISHER Alcoholic Cirrhosis Of Liver With Ascites (HCC) [...] IMPRESSION: Ultrasound-guided paracentesis. EP Katja Umana M.D. [facility] [place] [place] US PROCEDURES * (ABNORMAL) Prothrombin Time (PT) [...] CDT Katja Umana M.D. LAB BLOOD ADD-ON [facility] [address] [place] [address], [facility] [place] [address] [place] [address] * (ABNORMAL) CBC with Differential, Blood (12/09/2023 5:16 PM CDT) Only the most recent of2 resultswithin the time period is included. Pathologist [facility] Hemoglobin 8.3(L) 11.6 - 15.0 g/dL 12/09/2023 [...] CDT Katja Umana M.D. LAB BLOOD ADD-ON [facility] [address] [place] [address], [facility] DTL [facility] [address] [place] [address] [facility] [address] [place] [address] * (ABNORMAL) Comprehensive Metabolic Panel (12/09/2023 5:16 PM CDT) Only the most recent of2 resultswithin the time period is included. [facility] Potassium, S 5.0 3.6 - [...] CDT Katja Umana M.D. LAB BLOOD ADD-ON [facility] [address] [place] [address], [facility] DTL [facility] [address] [place] [address] * Bacterial Culture, Aerobic + Susceptibility (11/19/2023 10:50 AM FILE DRAWER FINISHER) Only the most recent of4 resultswithin the time period is included. Bacterial Culture, Aerobic + Susc No growth after 5 days of incubation. 11/24/2023 8:27 AM CDT DTL Fluid (Peritoneal Fluid) 11/19/2023 10:50 AM FILE DRAWER FINISHER Narrative [facility] - 11/24/2023 8:27 AM CDT Bacterial Culture: Received Bactec aerobic and Bactec anaerobic bottles Felipe Morales M.D. LAB MICROBIOLOGY - GENERAL ORDERABLES [facility] [address] [place] [address], [facility] [address] [place] [address] * Cell Count and Differential, Body Fluid (11/19/2023 10:50 AM FILE DRAWER FINISHER) Only the most recent of4 resultswithin the time period is included. Fluid Type Peritoneal /Paracente sis 11/19/2023 12:39 PM FILE DRAWER FINISHER DHPM Gross Appearance Serous 11/19/19 24 12:39 PM FILE DRAWER FINISHER DHPM Total Nucleated Cells 201 /mcL 11/19/2023 12:39 PM FILE DRAWER FINISHER [facility] Comment: ----REFERENCE VALUE---- Synovial: <150 /mcL Peritoneal: <500 /mcL Pleural: <500 /mcL Pericardial: <500 /mcL ----ADDITIONAL INFORMATION---- This test has been modified from the rn clinical review's instructions. Its performance characteristics were determined by [facility] in a manner consistent with CLIA requirements. This test has not been cleared or approved by the U.S. Food and Drug Administration. Neutrophils 20 % 11/19/2023 1:42 PM FILE DRAWER FINISHER DHPM Comment: ----REFERENCE VALUE---- Synovial: <25% Peritoneal: <25% Pleural: <25% Pericardial: <25% Lymphocytes 16 Synovial <75% % 11/19/2023 1:42 PM FILE DRAWER FINISHER DHPM Monocytes/Macropha ges 60 Synovial <70% % 11/19/2023 1:42 PM FILE DRAWER FINISHER DHPM Other Cells 4 % 11/19/2023 1:42 PM FILE DRAWER FINISHER DHPM Comment: ----REFERENCE VALUE---- The reference range and other method performance specifications have not been established for this bodyfluid. The test result must be integrated into the clinical context for interpretation. Other Cells Are: See Comment 11/19/2023 1:42 PM FILE DRAWER FINISHER DHPM Comment:Mesothelial cells Comment See Comment 11/19/2023 1:42 PM FILE DRAWER FINISHER DHPM Comment:No blasts or maligna nt cells seen. Reviewed by: Jose 11/19/2023 1:42 PM FILE DRAWER FINISHER PM Fluid (Peritoneal Fluid) 11/19/2023 10:50 AM FILE DRAWER FINISHER Felipe Morales M.D. LAB BODY FLUIDS AND STOOLS ORDERABLES [facility] [address] [place] [address], [facility] [address] [place] [address] * (ABNORMAL) Basic Metabolic Panel (11/01/2023 12:49 PM FILE DRAWER FINISHER) Only the most recent of3 resultswithin the time period is included. Pathologist [facility] Potassium, P 4.1 3.6 - 5.2 mmol/L 11/01/2023 1:13 PM FILE DRAWER FINISHER CNFL Sodium, P 128(L) 135 - 145 mmol/L 11/01/2023 1:13 PM FILE DRAWER FINISHER CNFL Chloride, P 95(L) 98 - 107 mmol/L 11/01/2023 1:13 PM FILE DRAWER FINISHER CNFL Bicarbonate, P 26 22 - 29 mmol/L 11/01/2023 1:13 PM FILE DRAWER FINISHER CNFL Anion Gap, P 7 7 - 15 11/01/2023 1:13 PM FILE DRAWER FINISHER CNFL BUN (Blood Urea Nitrogen), P 10 6 - 21 mg/dL 11/01/2023 1:13 PM FILE DRAWER FINISHER CNFL Creatinine 0.42(L) 0.59 - 1.04 mg/dL 11/01/2023 1:13 PM FILE DRAWER FINISHER CNFL Estimated GFR (eGFR) >90 >=60 mL/min/BSA 11/01/2023 1:13 PM FILE DRAWER FINISHER CNFL Comment: Estimated GFR calculated using the 2020 CKD_EPI creatinine equation. Calcium, Total, P 8.3(L) 8.8 - 10.2 mg/dL 11/01/2023 1:13 PM FILE DRAWER FINISHER CNFL Glucose, P 105 70 - 140 mg/dL 11/01/2023 1:13 PM FILE DRAWER FINISHER CNFL Blood (Blood, Venous) 11/01/2023 12:49 PM FILE DRAWER FINISHER 11/01/2023 12:54 PM FILE DRAWER FINISHER Katja Umana M.D. LAB BLOOD ADD-ON [facility] [address] [place] [address], [facility] CNFL [facility] [place] [address] * Ethyl Glucuronide Confirmation, Random, Urine (10/27/2023 10:38 AM FILE DRAWER FINISHER) Ethyl Glucuronide Confirmation, U Negative Cutoff: 250 ng/mL 10/29/2023 8:19 AM FILE DRAWER FINISHER [facility] Ethyl Sulfate Negative Cutoff: 100 ng/mL 10/29/2023 8:19 AM FILE DRAWER FINISHER [facility] Ethyl Gluc/Sulfate Interpretation Negative. 10/29/2023 8:19 AM FILE DRAWER FINISHER [facility] Comment: ----ADDITIONAL INFORMATION---- This report is intended for use in clinical monitoring and management of patients. ??It is not intended for use in employment-related testing. This test was developed and its performance characteristics determined by [facility] in a manner consistent with CLIA requirements. This test has not been cleared or approved by the U.S. Food and Drug Administration. Urine (Urine, Midstream) 10/27/2023 10:38 AM FILE DRAWER FINISHER 10/27/2023 10:00 PM FILE DRAWER FINISHER Romana Diane M.D., Ph.D. LAB URI NE ORDERABLES [facility] [address] [place] [address] [facility] [address] [place] [address] [place] [address] * Drug Abuse Survey with Confirmation, Urine (10/27/2023 10:38 AM FILE DRAWER FINISHER) Alcohol Negative Cutoff: 10 mg/dL 10/28/2023 9:08 AM [facility] Amphetamines Negative Cutoff: 500 ng/mL 10/28/2023 9:08 AM [facility] Barbiturates Negative Cutoff: 200 ng/mL 10/28/2023 9:08 AM [facility] Benzodiazepines Negative Cutoff: 100 ng/mL 10/28/2023 9:08 AM [facility] Cocaine Negative Cutoff: 150 ng/mL 10/28/2023 9:08 AM [facility] Comment: This cocaine immunoassay targets benzoylecgonine the primary metabolite of cocaine. Opiates Negative Cutoff: 300 ng/mL 10/28/2023 9:08 AM [facility] Phencyclidine Negative Cutoff: 25 ng/mL 10/28/2023 9:08 AM [facility] Tetrahydrocannabinol Negative Cutoff: 50 ng/mL 10/28/2023 9:08 AM [facility] Comment: This immunoassay targets delta-9 tetrahydrocannabinol carboxylic acid (THC-COOH), a metabolite of delta-9 tetrahydrocannabinol the main psychoactive ingredient of marijuana. ----ADDITIONAL INFORMATION---- This report is intended for use in clinical monitoring or management of patients. ??It is not intended for use in employment-related testing. Urine (Urine, Midstream) 10/27/2023 10:38 AM FILE DRAWER FINISHER 10/27/2023 10:03 PM [facility] Romana Diane M.D., Ph.D. LAB URI NE ORDERABLES [facility] [place] [address] [place] [address] [facility] [address] [place] [address] [place] [address] * Phosphatidylethanol Confirmation (10/27/2023 10:33 AM [facility]) PEth 16:0/18:1 (POPEth) by LC-MS/MS <20 Cutoff: 10 ng/mL 10/29/2023 8:22 PM [facility] Comment: Testing performed at a x2 dilution; [...] <10 Cutoff: 10 ng/mL 10/29/2023 8:22 PM [facility] Comment: PEth 16:0/18:2 (PLPEth) Reference ranges are not well established PEth Interpretation Negative. 10/29 8:22 PM [facility] Comment: ----ADDITIONAL INFORMATION---- This report is intended for use in clinical monitoring and management of patients. ??It is not intended for use in employment-related testing. This test was developed and its performance characteristics determined by [facility] in a manner consistent with CLIA requirements. This test has not been cleared or approved by the U.S. Food and Drug Administration. Blood (Blood, Venous) 10/27/2023 10:33 AM FILE DRAWER FINISHER 10/27/2023 9:57 PM FILE DRAWER FINISHER Romana Diane M.D., Ph.D. LAB BLO OD ADD-ON Performing Organization Address City/[facility] Co de Phone Number [facility] [place] [address] [address] [facility] [address] [place] [address] [place] [address] * Duodenum, Entire examined duodenum Upper GI endoscopy-Gastroenterology Image Exam (10/08/2023 3:20 PM FILE DRAWER FINISHER) 10/08/2023 3:17 PM FILE DRAWER FINISHER Narrative [facility] - 10/08/2023 3:57 PM FILE DRAWER FINISHER This order has been created and auto-finalized to support the import of images acquired without order. The clinical documentation to support these images can be found on the encounter that produced images. Provider Not In System IMG NON RAD IMAGI NG PROCEDURES [facility] NA * Upper GI Endoscopy (10/08/2023 3:17 PM FILE DRAWER FINISHER) 10/08/2023 3:17 PM FILE DRAWER FINISHER Impressions [facility] [place] - 10/08/2023 3:53 PM FILE DRAWER FINISHER Post-op Diagnoses: ? 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 ? - Mild portal hypertensive gastropathy. ? - Normal examined duodenum. ? - No specimens collected. Narrative [facility] [place] - 10/08/2023 3:53 PM FILE DRAWER FINISHER Scot 6 GI GI Patient Name: Monique [...] Katja Umana M.D. GI PROCEDURE ORDERAB LES [facility] [place] NA * Protein, Total, Body Fluid (10/08/2023 11:14 AM FILE DRAWER FINISHER) Protein, Total, BF 0.9 See Comment g/dL 10/08/2023 12:53 PM FILE DRAWER FINISHER DTL Comment: ----ADDITIONAL INFORMATION---- A pleural fluid [...] clinical findings. All other fluids refer to www.[email or web address] for further interpretive information. This test has been modified from the rn clinical review's instructions. Its performance characteristics were determined by [facility] in a manner consistent with CLIA requirements. This test has not been cleared or approved by the U.S. Food and Drug Administration. Fluid Type, Protein, Total Fluid, Peritoneal Fluid 10/08/2023 11:54 AM FILE DRAWER FINISHER DTL Fluid (Peritoneal Fluid) 10/08/2023 11:14 AM FILE DRAWER FINISHER 10/08/2023 12:09 PM FILE DRAWER FINISHER Katja Umana M.D. LAB BODY FLUIDS AND STOOLS ORDERABLES Performing Organization Address [facility] Co de Phone Number [facility] [address] [place], [place] [phone] [place] [address] [place] [address] * Albumin, Body Fluid (10/08/2023 11:14 AM FILE DRAWER FINISHER) Albumin BF 0.5 See Comment g/dL 10/08/2023 12:53 PM FILE DRAWER FINISHER DTL Comment: ----ADDITIONAL INFORMATION---- Peritoneal fluid albumin is used to calculate the serum-ascites albumin gradient (SAAG). Values greater than or equal to 1.1 g/dL suggest portal hypertension. Pleural fluid albumin may be used to calculate a serum-effusion albumin gradient. Values greater than 1.2 g/dL are most consistent with a transudative process. ?? All other fluids refer to [email or web address].com for further interpretive information. This test has been modified from the rn clinical review's instructions. Its performance characteristics were determined by [facility] in a manner consistent with CLIA requirements. This test has not been cleared or approved by the U.S. Food and Drug Administration. Fluid Type, Albumin Fluid, Peritoneal Fluid 10/08/2023 11:54 AM FILE DRAWER FINISHER DTL Fluid (Peritoneal Fluid) 10/08/2023 11:14 AM FILE DRAWER FINISHER 10/08/2023 12:09 PM FILE DRAWER FINISHER Katja Umana M.D. LAB BODY FLUIDS AND STOOLS ORDERABLES Performing Organization Address [facility]/ZIP Co de Phone Number [facility] [address] [place] [address], [facility] [place] [address] [place] [address] * (TTE) 2D ECHO DOPPLER COLOR AND CONTRAST (10/07/2023 11:01 AM FILE DRAWER FINISHER) Ejection Fraction 68 MC CV EIMS Proximal [...] Region Laterality Modality Echocardiography 10/07/2023 9:54 AM FILE DRAWER FINISHER Impressions 10/07/2023 11:02 AM FILE DRAWER FINISHER Agitated saline contrast administered. Moderate intrapulmonary shunt. [...] the Order-Level Documents. Narrative 10/07/2023 11:02 AM FILE DRAWER FINISHER For the complete report, see the Order-Level [...] and Lateral 2 Views (10/06/2023 1:32 PM FILE DRAWER FINISHER) Anatomical Region Laterality Modality Chest, Thoracic RST LOS, Tho racic ARZ LOS, Thoracic FLA LOS N/A Digital Radiography Impressions 10/06/2023 1:35 PM FILE DRAWER FINISHER Shallow inspiration. New focal predominantly linear opacity [...] bilateral apical scarring. Narrative 10/06/2023 1:35 PM FILE DRAWER FINISHER EXAM: ??DX CHEST AP OR PA AND [...] Autoimmune Liver Disease Panel (10/06/2023 12:17 PM FILE DRAWER FINISHER) Mitochondrial Ab, M2, S <0.1 <0.1 (Negative) U 10/06/2023 9:06 PM FILE DRAWER FINISHER SDSC Antinuclear Ab, HEp-2 Substrate, S Positive 1:320(A) <1:80 (Negative) 10/06/2023 10:15 PM FILE DRAWER FINISHER [facility] Comment: ----ADDITIONAL INFORMATION---- Method: Immunofluorescence using HEp-2 cellular substrate. NEGIN Titer: 1:320 10/06/2023 10:15 PM FILE DRAWER FINISHER SDSC NEGIN Pattern: Speckled 10/06/2023 10:15 PM FILE DRAWER FINISHER SDSC Smooth Muscle Ab Screen, S Negative Negative 10/07/2023 11:57 AM FILE DRAWER FINISHER [facility] Comment: Negative: No further testing will be performed ----ADDITIONAL INFORMATION---- This test was developed and its performance characteristics determined by [facility] in a manner consistent with CLIA requirements. This test has not been cleared or approved by the U.S. Food and Drug Administration. Blood (Blood, Venous) 10/06/2023 12:17 PM FILE DRAWER FINISHER 10/06/2023 4:11 PM FILE DRAWER FINISHER Katja Umana M.D. LAB BLOOD ADD-ON Performing Organization Address City/[facility]/ZIP Co de Phone Number [facility] [address] [place] [address] [facility] [address] [place] [phone] [place] [address] [place] [address] * HCV Ab Scrn w/Reflex to HCV PCR, Serum (10/06/2023 12:17 PM FILE DRAWER FINISHER) [facility] HCV Ab Screen, S Negative Negative 10/06/2023 9:12 PM FILE DRAWER FINISHER [facility] Comment:Qpoqrd-oh-rcnbzg rat io is <1.00. Blood (Blood, Venous) 10/06/2023 12:17 PM FILE DRAWER FINISHER 10/06/2023 3:57 PM FILE DRAWER FINISHER Katja Umana M.D. LAB MICROBIOLOGY - B LOOD ORDERABLES Performing Organization Address [facility] de Phone Number [facility] [address] [place], [place] [phone] [place] [address] [place] [address] * Hepatitis A IgG Ab, Serum (10/06/2023 12:17 PM FILE DRAWER FINISHER) [facility] Hepatitis A IgG Ab, S Positive 10/06/2023 8:53 PM FILE DRAWER FINISHER [facility] Comment: Result indicates immunity to hepatitis A infection from either vaccination or past exposure to hepatitis A. False-positive results may be observed in patients with CMV antibodies or heterophilic antibodies. ?? ----REFERENCE VALUE---- Unvaccinated: Negative Vaccinated: Positive Blood (Blood, Venous) 10/06/2023 12:17 PM FILE DRAWER FINISHER 10/06/2023 3:57 PM FILE DRAWER FINISHER Katja Umana M.D. LAB MICROBIOLOGY - B LOOD ORDERABLES Performing Organization Address [facility]/ZIP Co de Phone Number [facility] [address] [place] [address] [facility] [address] [place] [address] * AFP (Alpha-Fetoprotein), Tumor Marker (10/06/2023 12:17 PM FILE DRAWER FINISHER) Pathologist [facility] Alpha-Fetoprotein, Tumor Marker, S 7.8 ng/mL 10/07/2023 3:00 PM FILE DRAWER FINISHER [facility] Comment: ----REFERENCE VALUE---- <8.4 Reference values are for non- subjects only; production of AFP elevates values in women. ----ADDITIONAL INFORMATION---- In this [place] assay AFP concentrations are <8.4 ng/mL for [...] method is an immunoenzymatic assay manufactured by [employer]. and is tested on the [employer] DxI 800. Values obtained with different assay methods or kits may be different and cannot be used interchangeably. ? Test results cannot be interpreted as absolute evidence of the presence or absence of malignant disease. Alpha-Fetoprotein values are not interpretable in females for the investigation of malignant disease. Blood (Blood, Venous) 10/06/2023 12:17 PM FILE DRAWER FINISHER 10/07/2023 1:04 PM FILE DRAWER FINISHER Katja Umana M.D. LAB BLOOD ADD-ON [facility] [address] [place] [address] [facility] [address] [place] [address] * HBc Total Ab, Serum (10/06/2023 12:17 PM FILE DRAWER FINISHER) [facility] HBc Total Ab, S Negative Negative 10/06/2023 9:13 PM FILE DRAWER FINISHER [facility] Blood (Blood, Venous) 10/06/2023 12:17 PM FILE DRAWER FINISHER 10/06/2023 3:57 PM FILE DRAWER FINISHER Katja Umana M.D. LAB MICROBIOLOGY - B LOOD ORDERABLES [facility] [address] [address] [facility] [address] [place] [address] * HBs Antibody, Serum (10/06/2023 12:17 PM FILE DRAWER FINISHER) HBs Antibody, S Negative 10/06/2023 9:14 PM FILE DRAWER FINISHER [facility] Comment: Patient is presumed to be not immune to infection with HBV. ----REFERENCE VALUE---- Unvaccinated: Negative Vaccinated: Positive HBs Antibody, Quantitative, S <5.0 mIU/mL 10/06/2023 9:14 PM FILE DRAWER FINISHER [facility] Comment: ----REFERENCE VALUE---- Unvaccinated: <5.0 Vaccinated: >=12.0 Blood (Blood, Venous) 10/06/2023 12:17 PM FILE DRAWER FINISHER 10/06/2023 3:57 PM FILE DRAWER FINISHER Katja Umana M.D. LAB MICROBIOLOGY - B LOOD ORDERABLES Performing Organization Address City/[facility]/ZIP Co de Phone Number [facility] [address] [address] [facility] [address] [place] [address] * Hepatitis B Surface Antigen (10/06/2023 12:17 PM FILE DRAWER FINISHER) HBs Antigen, S Negative Negative 10/06/2023 8:55 PM FILE DRAWER FINISHER [facility] Blood (Blood, Venous) 10/06/2023 12:17 PM FILE DRAWER FINISHER 10/06/2023 3:57 PM FILE DRAWER FINISHER Katja Umana M.D. LAB MICROBIOLOGY - B LOOD ORDERABLES [facility] [address] [place] [address] [facility] [address] [place] [address] from Last 3 Months Care Teams Disability Manager Relationship Specialty Start Date End Date Elsewhere, Pcp PCP - General Family Medicine 12/07/23
--- OUTSIDE RECORDS SUMMARY | 2023-12-23 14:21 | XMS_ITS | Encounter Summary ---
Author Name Unknown Organization [facility] Address [address] [place] [address] Care Team Providers Care Engineering Technology Instructor Name Role Phone Elsewhere, Pcp Primary Care Provider Unavailabl e Reason for Referral * Outpatient (Routine) - Authorized Specialty Diagnoses / Procedures Referred By Contac t Referred To Contact Diagnoses Alcoholic Cirrhosis Of Liver With Ascites (HCC) Ascites Procedures US Paracentesis with Imaging Guidance Katja Umana M.D. 200 [place] [address] [facility] Referral ID Status Reason Start Date Expiration Date V isits Requested Visits Authorized [id number] Authorized 12/09/2023 12/08/2024 8 8 Reason for Visit * Outpatient (Routine) - Authorized Specialty Diagnoses / Procedures Referred By Dotty oakes Referred To Contact Diagnoses Alcoholic Cirrhosis Of Liver With Ascites (HCC) Ascites Procedures US Paracentesis with Imaging Guidance Katja Umana M.D. 200 [place] [address] [facility] Referral ID Status Reason Start Date Expiration Date V isits Requested Visits Authorized [id number] Authorized 12/09/2023 12/08/2024 8 8 Encounter Details Date Type Department Care Team (Latest Contact Info) Description 12/16/2023 9:34 AM CDT - 12/16/2023 11:22 AM CDT Hospital Encounter Department of Radiology, [facility], in [place], [place] [address] [place] [address] Katja Umana M.D. [address] [place] [address] Alcoholic Cirrhosis Of Liver With Ascites (HCC); Ascites Discharge Disposition: Home or Self Care Social History Tobacco Use Types Packs/Day Years Used Date Smoking Tobacco: Every Day Cigarettes 0.5 40 Started: 02/11/1983 Passive Smoke Exposure: Never Smokeless Tobacco: Never Alcohol Use Standard Drinks/Week Comments Not Currently 0 (1 standard drink = 0.6 oz pur e alcohol) [facility] Utilities Answer Date Recorded In the past 12 months has th e electric, gas, oil, or water [employer] threatened to shut off services in your [...] your living situation today? I have a [facility] place to live 10/15/2023 Sex and Gender Information Value Date Recorded Sex Assigned at Female 10/06/2023 10:50 AM INTERNIST MEDICAL DOCTOR MD Gender Identity Female 10/06/2023 10:50 AM INTERNIST MEDICAL DOCTOR MD Sexual Orientation Straight 10/06/2023 10 :50 AM INTERNIST MEDICAL DOCTOR MD documented as of this encounter Last Filed Vital Signs Vital Sign Reading Time Taken Comments Blood Pressure 101/47 12/16/2023 10:52 AM CDT Pulse 77 12/16/2023 10:30 AM CDT Temperature - - Respiratory Rate - - Oxygen Saturation 100% 12/16/2023 10:30 AM CDT Inhaled Oxygen Concentration - - Weight - - Height - - Body Mass Index - - documented in this encounter Discharge Instructions * Attachments The following attachments cannot be sent through Care Everywhere. * Paracentesis (Bolivian) documented in this encounter Medications at Time of Discharge Medication Sig Dispensed Refills Start Date End Date acetaminophen 650 mg/20.3 mL suspension Take 650 mg by mouth every 4 (four) hours as needed (for pain). No more than 2000 mg in 24 hours 0 11/08/2014 furosemide (LASIX) 40 mg tablet Take 1 tablet (40 mg total) by mouth daily. 30 tablet 2 11/22/2023 02/20/2024 lactulose (CHRONULAC) 10 gram/15 mL solution Take 30 mL (20 g total) by mouth 2 (two) times a day. Take and titrate to goal 2-3 loose bowel movements daily. 946 mL 2 12/09/2023 pantoprazole (PROTONIX) 40 mg EC tablet Take 40 mg by mouth 2 (two) times a day before breakfast and dinner. 0 12/06/2023 rifAXIMin (XIFAXAN) 550 mg tablet Take 1 tablet (550 mg total) by mouth 2 (two) times a day. 60 tablet 2 12/09/2023 03/08/2024 spironolactone (ALDACTONE) 100 mg tablet Take 1 tablet (100 mg total) by mouth daily. 30 tablet 2 11/22/2023 02/20/2024 traZODone (DESYREL) 50 mg tablet Take 1 tablet (50 mg total) by mouth at bedtime. 30 tablet 0 11/22/2023 documented as of this encounter Plan of Treatment Upcoming Encounters Date Type Department Care Team (Late st Contact Info) Description 12/30/2023 3:15 PM CDT Appointment Department of Radiology, [facility], in [place], [place] [address] [place] [address] Katja Umana M.D. [address] [place] [phone] 01/19/2024 10:00 AM CDT Telemedicine Department of Nutrition and Diabetes Education in [place], [place] [address] [place] [phone] Katja Umana M.D. [address] [place] [phone] Taty Cunningham M.S., RDN, LD [address] [place] [phone] documented as of this encounter Procedures Procedure Name Priority Date/Time Associated Diagnosis Comments US PARACENTESIS WITH IMAGING GUIDANCE RAD - Routine (most inpatients and all outpatients) 12/16/2023 10:53 AM CDT Alcoholic Cirrhosis Of Liver With Ascites (HCC) Ascites documented in this encounter Results * US Paracentesis with Imaging Guidance (12/16/2023 10:53 AM CDT) Anatomical Region Laterality Modality Abdomen, Ultrasound RST [...] IMPRESSION: Ultrasound-guided paracentesis. EP Katja Umana M.D. Sally US PROCEDURES documented in this encounter Visit Diagnoses Diagnosis Alcoholic Cirrhosis Of Liver With Ascites (HCC) Ascites documented in this encounter Administered Medications Inactive Administered Medications - up to 3 most recent administrations Medication Order MAR Action Action Date Dose Rate Site albumin human 25 % injection Continuous Infusion: Per Instructions PRN, Starting on Dasia 12/16/23 at 1035, Intra-Op New Bag 12/16/2023 10:35 AM CDT 25 g albumin human 25 % injection Continuous Infusion: Per Instructions PRN, Starting on Dasia 12/16/23 at 1045, Intra-Op New Bag 12/16/2023 10:45 AM CDT 25 g lidocaine 10 mg/mL (1 %) injection (XYLOCAINE) As needed, Starting on Dasia 12/16/23 at 0957, Intra-Op Given 12/16/2023 9:57 AM CDT 7 mL Abdominal Tissue documented in this encounter Active and Recently Administered Medications Times are shown in CDT. PRN Medication Order 12/14/2023 12/15/2023 12/16/2023 albumin human 25 % injection (COMPLETED) Continuous Infusion: Per Instructions PRN, Starting on Dasia 12/16/23 at 1035, Intra-Op 1035 (New Bag - Prov ider: Donis Zamora Jr., M.D.) albumin human 25 % injection (COMPLETED) Continuous Infusion: Per Instructions PRN, Starting on Dasia 12/16/23 at 1045, Intra-Op 1045 (New Bag - Prov ider: Donis Zamora Jr., M.D.) lidocaine 10 mg/mL (1 %) injection (XYLOCAINE) (COMPLETED) As needed, Starting on Dasia 12/16/23 at 0957, Intra-Op 0957 (Given - Provid er: Donis Zamora Jr., M.D.) documented in this encounter Additional Health Concerns Assessment Noted Time PHQ-9 Depression Total Score: 3 10/20/19 24 7:30 AM INTERNIST MEDICAL DOCTOR MD documented as of this encounter Care Teams Engineering Technology Instructor Relationship Specialty Start Date End Date Elsewhere, Pcp PCP - General Family Medicine 12/07/23 documented as of this encounter
--- OUTSIDE RECORDS SUMMARY | 2023-12-23 14:21 | XMS_ITS | Encounter Summary ---
Author Name Unknown Organization [facility] Address [address] [place] [address] Care Team Providers Care Muck Operator Name Role Phone Elsewhere, Pcp Primary Care Provider Unavailabl e Reason for Referral * Outpatient (Routine) - Authorized Specialty Diagnoses / Procedures Referred By Contlulu t Referred To Contact Nicotine Dependence Sudha Bernstein M.A., DonnSChandrakant, M.S.W. [address] [place] [phone] [facility] Referral ID Status Reason Start Date Expiration Date V isits Requested Visits Authorized [id number] Authorized 12/20/2023 06/20/2025 1 1 Scheduling Instructions Please schedule this patient for a follow up phone visit on March 21. No need to call it can just be added to my calendar. Encounter Details Date Type Department Care Team (Late st Contact Info) Description 12/20/2023 Orders Only Department of Nicotine Dependence, [facility], in [place], [place] [address] [place] [phone] Sudha Bernstein M.A., AvelIGomezS.W., M.S.W. [address] [place] [phone] Social History Tobacco Use Types Packs/Day Years Used Date Smoking Tobacco: Every Day Cigarettes 0.5 40 Started: 02/11/1983 Passive Smoke Exposure: Never Smokeless Tobacco: Never Alcohol Use Standard Drinks/Week Comments Not Currently 0 (1 standard drink = 0.6 oz pur e alcohol) [facility] Utilities Answer Date Recorded In the past [...] your living situation today? I have a [facility] place to live 10/15/2023 Sex and Gender Information Value Date Recorded Sex Assigned at Female 10/06/2023 10:50 AM OBSTETRICS NURSE PRACTITIONER Gender Identity Female 10/06/2023 10:50 AM OBSTETRICS NURSE PRACTITIONER Sexual Orientation Straight 10/06/2023 10 :50 AM OBSTETRICS NURSE PRACTITIONER documented as of this encounter Plan of Treatment Upcoming Encounters Date Type Department Care Team (Late st Contact Info) Description 12/30/2023 3:15 PM CDT Appointment Department of Radiology, [facility], in [place], [place] [address] [place] [phone] Katja Umana M.D. [address] [place] [phone] 01/19/2024 10:00 AM CDT Telemedicine Department of Nutrition and Diabetes Education in [place], [place] [address] [place] [phone] Katja Umana M.D. [address] [place] [phone] Taty Cunningham M.S., RDN, LD [address] [place] [phone] Scheduled Referrals Name Type Priority Associated Diagnoses Order Schedule Nicotine Dependence office visit (clinic) Outpatient Referral Routine Expected: 03/21/2024, Expires: 03/20/2025 documented as of this encounter Visit Diagnoses Not on filedocumented in this encounter Additional Health Concerns Assessment Noted Time PHQ-9 Depression Total Score: 3 10/20/19 24 7:30 AM OBSTETRICS NURSE PRACTITIONER documented as of this encounter Care Teams Muck Operator Relationship Specialty Start Date End Date Elsewhere, Pcp PCP - General Family Medicine 12/07/23 documented as of this encounter
--- OUTSIDE RECORDS SUMMARY | 2023-12-23 14:21 | XMS_ITS | Encounter Summary ---
Author Name Unknown Organization [facility] Address [address] [place] [address] Care Team Providers Care Grinder Gear Name Role Phone Unavailable Primary Care Provider Unavailabl e Reason for Visit * Reason Onset Date Comments Pre-visit Intake 12/03/2023 Encounter Details Date Type Department Care Team (Latest Contact Info) Description 12/03/2023 10:30 AM CDT Clinical Communication Virtual Review in [place], [place] [address] [place], [place] [id number] Pre-visit Intake Social History Tobacco Use Types Packs/Day Years Used Date Smoking Tobacco: Every Day Cigarettes 0.5 40 Smokeless Tobacco: Never Tobacco Cessation:Ready to Q uit: Not Asked; Counseling Given: Not Answered Alcohol Use Standard Drinks/Week Comments Not Currently 0 (1 standard drink = 0.6 oz pur e alcohol) [facility] Utilities Answer Date Recorded In the [...] money to buy more. Never true 10/15/19 24 Within the past 12 months, t he [...] Date Recorded Employment status Working with temporary [employer] 10/15/2023 Housing Stability Answer Date Recorded What is your living situation today? [facility] 10/15/2023 Sex and Gender Information Value Date Recorded Sex Assigned at Female 10/06/2023 10:50 AM ENGRAVER PANTOGRAPH Gender Identity Female 10/06/2023 10:50 AM ENGRAVER PANTOGRAPH Sexual Orientation Straight 10/06/2023 10 :50 AM ENGRAVER PANTOGRAPH documented as of this encounter Plan of Treatment Upcoming Encounters Date Type Department Care Team (Late st Contact Info) Description 12/30/2023 3:15 PM CDT Appointment Department of Radiology, [facility], in [place], [place] [address] [place] [phone] Katja Umana M.D. [address] [place] [phone] 01/19/2024 10:00 AM CDT Telemedicine Department of Nutrition and Diabetes Education in [place], [place] [address] [place] [phone] Katja Umana M.D. [address] [place] [phone] Taty Cunningham M.S., RDN, LD [address] [place] [phone] documented as of this encounter Visit Diagnoses Not on filedocumented in this encounter Additional Health Concerns Assessment Noted Time PHQ-9 Depression Total Score: 3 10/20/19 24 7:30 AM ENGRAVER PANTOGRAPH documented as of this encounter
--- OUTSIDE RECORDS SUMMARY | 2023-12-23 14:21 | XMS_ITS | Encounter Summary ---
Author Name Unknown Organization [facility] Address [address] [place] [id number] Care Team Providers Care Medical Records Coordinator Name Role Phone Unavailable Primary Care Provider Unavailabl e Reason for Referral * Outpatient (Routine) - Closed Specialty Diagnoses / Procedures Referred By Dotty t Referred To Contact Nicotine Dependence Sudha Bernstein M.A., DonnS.Tom, M.S.W. [address] [place] [phone] [facility] Referral ID Status Reason Start Date Expiration Date Visits Re quested Visits Authorized [id number] Closed 11/11/2023 05/12/2025 1 1 Scheduling Instructions Please schedule a follow up phone visit at 11:00am, IFIED RESIDENTIAL MEDICATION AIDE Encounter Details Date Type Department Care Team (Late st Contact Info) Description 11/11/2023 Orders Only Department of Nicotine Dependence, [facility] in [place], [place] [address] [place] [phone] Sudha Bernstein M.A., Edwin.S.W., M.S.W. [address] [place] [phone] Social History Tobacco Use Types Packs/Day Years Used Date Smoking Tobacco: Every Day Cigarettes 0.5 40 Smokeless Tobacco: Never Alcohol Use Standard Drinks/Week Comments Not Currently 0 (1 standard drink = 0.6 oz pur e alcohol) [facility] Utilities Answer Date Recorded In the past 12 months has th e [employer], gas, oil, or water company threatened to [...] your living situation today? I have a [facility] place to live 10/15/2023 Sex and Gender Information Value Date Recorded Sex Assigned at Female 10/06/2023 10:50 AM CERTIFIED RESIDENTIAL MEDICATION AIDE Gender Identity Female 10/06/2023 10:50 AM CERTIFIED RESIDENTIAL MEDICATION AIDE Sexual Orientation Straight 10/06/2023 10 :50 AM CERTIFIED RESIDENTIAL MEDICATION AIDE documented as of this encounter Plan of Treatment Upcoming Encounters Date Type Department Care Team (Late st Contact Info) Description 12/30/2023 3:15 PM CDT Appointment Department of Radiology, [facility], in [place], [place] [address] [place] [phone] Katja Umana M.D. [address] [place] [phone] 01/19/2024 10:00 AM CDT Telemedicine Department of Nutrition and Diabetes Education in [place], [place] [address] [place] [phone] Katja Umana M.D. [address] [place] [phone] Taty Cunningham M.S., RDN, [address] [place] [phone] Scheduled Referrals Name Type Priority Associated Diagnoses Order Schedule Nicotine Dependence office visit (clinic) Outpatient Referral Routine Expected: 11/18/2023, Expires: 02/08/2025 documented as of this encounter Visit Diagnoses Not on filedocumented in this encounter Additional Health Concerns Assessment Noted Time PHQ-9 Depression Total Score: 3 10/20/19 24 7:30 AM CERTIFIED RESIDENTIAL MEDICATION AIDE documented as of this encounter
--- OUTSIDE RECORDS SUMMARY | 2023-12-23 14:21 | XMS_ITS | Encounter Summary ---
Author Name Unknown Organization [facility] Address [address] [place] [address] Care Team Providers Care Wash Oil Cooler Operator Name Role Phone Unavailable Primary Care Provider Unavailabl e Reason for Visit * Reason Comments Nicotine Dependence * Outpatient (Routine) - Closed Specialty Diagnoses / Procedures Referred By Contlulu t Referred To Contact Nicotine Dependence Sudha Bernstein M.A., Yesy.I.C.S.W., M.S.W. [address] [place] [phone] [facility] Referral ID Status Reason Start Date Expiration Date Visits Re quested Visits Authorized [id number] Closed 10/28/2023 04/28/2025 1 1 Encounter Details Date Type Department Care Team (Late st Contact Info) Description 11/11/2023 11:00 AM SUMATRA OPENER Virtual Visit Department of Nicotine Dependence, [facility], in [place], [place] [address] [place] [phone] Sudha Bernstein M.A., L.I.C.S.W., M.S.W. [address] [place] [phone] Nicotine Dependence Cigarettes With Withdrawal (Primary Dx) Social History Tobacco Use Types Packs/Day Years Used Date Smoking Tobacco: Every Day Cigarettes 0.5 40 Smokeless Tobacco: Never Alcohol Use Standard Drinks/Week Comments Not Currently 0 (1 standard drink = 0.6 oz pur e alcohol) [facility] Utilities Answer Date Recorded In the past 12 months has [employer] electric, gas, oil, or water company threatened [...] your living situation today? I have a [facility] place to live 10/15/2023 Sex and Gender Information Value Date Recorded Sex Assigned at Female 10/06/2023 10:50 AM SUMATRA OPENER Gender Identity Female 10/06/2023 10:50 AM SUMATRA OPENER Sexual Orientation Straight 10/06/2023 10 :50 AM SUMATRA OPENER documented as of this encounter Progress Notes * Sudha Bernstein M.A., L.I.C.S.W., M.S.W. - 11/11/2023 11:00 AM CST OBJECTIVE Monique Redmond attended a phone follow-up appointment regarding her tobacco use. Medications Patient reports that she is currently using no tobacco cessation medications at this time. ASSESSMENT The patient reported she had started taking Varenicline and once she got to 0.5 mg twice a day she began throwing up and continued to the three days she took this medication twice a day. The patient shared she stopped taking this medication because of the importance of her maintaining her calories due to current medical concerns. The patient denied interest in having [facility] staff ask the [facility] medicalprovider if they recommend a different dose of Varenicline for her. Discussion was had about whether the patient would be interested in using the nicotine patch as a long-acting smoking cessation option. The patient shared she is typically smoking less than a half of a pack a day and expressed interest in trying the nicotine patches. Discussion was had about common side effects including nausea and the patient was encouraged to remove the nicotine patch if she feels it is causing her to feel nauseous because that may mean she needs to use a lower patch dose. The patient was informed the nicotine patch may cause skin redness or itching for some individuals and she reported having sensitive skin to tape and the patient was informed [facility] staff can ask the [facility] medical provider to write on the prescription the patient has sensitive skin and the patient was encouraged to discuss this with the pharmacist when she picks up the nicotine patches to determine if there are concerns with her using this product. The patient shared she has not started using the nicotine lozenges yet and she was informed these can be used in times of craving as a short-acting smoking cessation option. The patient was informed it is typically recommended individuals start with a 14 mg nicotine patch if they smokeless than 10 cigarettes a day but if she would prefer to start on a 7 mg nicotine patch to see if that is enough patch dose for her that is an option as well. The patient expressed interest in starting with a 14 mg nicotine patch dose and she was informed if she feels this patch dose is too much she can take off the 14 mg nicotine patch and use a 7 mg nicotine patch. The patient was informed it is not recommended for individuals to smoke while using the patch and the patch should be replaced each day. The patient was informed the nicotine patch should be placed in a location above her waist and below her neck. The patient expressed understanding and was encouraged to contact the [facility] with any questions or if she experiences any side effects from the nicotine patch. Suad galvez was had about scheduling a follow up phone visit on November 17 and the patient was encouraged to contact the [facility] with any questions before this time. PLAN The patient will be scheduled for a follow up phone visit on November 17. The patient was encouraged to contact the [facility] with any questions before thistime. The patient expressed interest in having a prescription for an additional medication for cessation.A prescription will be sent to patient's local pharmacy for: Nicotine patch: 14 mg Initial doses for 4-6 weeks then taper dose in 7 to 14 mg steps every 2 to 4 weeks based on patient's report of withdrawal symptoms, urges, and comfort. Adverse effects may include nausea (reduce patch dosage), local patch reaction such as redness or itching (use of topical hydrocortisone cream and rotating patch can reduce local reaction), severe site reaction (e.g. edema, blistering) #1 Tobacco Use Disorder 25 minutes was spent on tobacco counseling. TRA OPENER documented in this encounter Plan of Treatment Upcoming Encounters Date Type Department Care Team (Late st Contact Info) Description 12/30/2023 3:15 PM CDT Appointment Department of Radiology, [facility], in [place], [place] [address] [place] [phone] Katja Umana M.D. [address] [place] [phone] 01/19/2024 10:00 AM CDT Telemedicine Department of Nutrition and Diabetes Education in [place], [place] [address] [place] [phone] Katja Umana M.D. [address] [place] [phone] Taty Cunningham M.S., RDN, LD [address] [place] [phone] documented as of this encounter Visit Diagnoses Diagnosis Nicotine Dependence Cigarettes With Withdrawal- Primary documented in this encounter Additional Health Concerns Assessment Noted Time PHQ-9 Depression Total Score: 3 10/20/19 24 7:30 AM SUMATRA OPENER documented as of this encounter
--- OUTSIDE RECORDS SUMMARY | 2023-12-23 14:21 | XMS_ITS | Encounter Summary ---
Author Name Unknown Organization [facility] Address [address] [place] [address] Care Team Providers Care Tetryl Screen Operator Name Role Phone Elsewhere, Pcp Primary Care Provider Unavailabl e Reason for Referral * Outpatient (Routine) - Authorized Specialty Diagnoses / Procedures Referred By Contac t Referred To Contact Nutrition Diagnoses Alcoholic Cirrhosis Of Liver With Ascites (HCC) Sarcopenia Katja Umana M.D. 200 [place] [address] [facility] Referral ID Status Reason Start Date Expiration Date V isits Requested Visits Authorized [id number] Authorized 12/09/2023 06/09/2025 1 1 * Outpatient (Routine) - Authorized Specialty Diagnoses / Procedures Referred By Contac t Referred To Contact Diagnoses Alcoholic Cirrhosis Of Liver With Ascites (HCC) Ascites Procedures US Paracentesis with Imaging Guidance Katja Umana M.D. 200 [place] [address] [facility] Referral ID Status Reason Start Date Expiration Date V isits Requested Visits Authorized [id number] Authorized 12/09/2023 12/08/2024 8 8 Reason for Visit * Outpatient (Routine) - Closed Specialty Diagnoses / Procedures Referred By Contact Referred To Contact Gastroenterology and Hepatology Katja Umana M.D. [address] [place] [address] [facility] Referral ID Status Reason Start Date Expiration Date Visits Re quested Visits Authorized [id number] Closed 10/28/2023 04/28/2025 1 1 Encounter Details Date Type Department Care Team (Latest Contact Info) Description 12/09/2023 4:30 PM CDT Office Visit [facility] in [place], [place] [address] [place] [phone] Katja Umana M.D. [address] [place] [phone] Rose Palacios M.D. 200 [place] [phone] Alcoholic Cirrhosis Of Liver With Ascites (HCC) (Primary Dx); Ascites; Sarcopenia Social History Tobacco Use Types Packs/Day Years Used Date Smoking Tobacco: Every Day Cigarettes 0.5 40 Started: 02/11/1983 Passive Smoke Exposure: Never Smokeless Tobacco: Never Alcohol Use Standard Drinks/Week Comments Not Currently 0 (1 standard drink = 0.6 oz pur e alcohol) [facility] Utilities Answer Date Recorded In the past 12 months has th e [employer] gas, oil, or water [employer] threatened to shut off services in your [...] Date Recorded Employment status Working with temporary [employer] tions 10/15/2023 Housing Stability Answer Date Recorded What is your living situation today? I have a [facility] place to live 10/15/2023 Sex and Gender Information Value Date Recorded Sex Assigned at Female 10/06/2023 10:50 AM MEDICAL DEVICE SALES REPRESENTATIVE Gender Identity Female 10/06/2023 10:50 AM MEDICAL DEVICE SALES REPRESENTATIVE Sexual Orientation Straight 10/06/2023 10 :50 AM MEDICAL DEVICE SALES REPRESENTATIVE documented as of this encounter Last Filed Vital Signs Vital Sign Reading Time Taken Comments Blood Pressure 97/61 12/09/2023 4:21 PM CDT Pulse 80 12/09/2023 4:21 PM CDT Temperature 34.7 ??C (94.5 ??F) 12/09/2023 4:21 PM CD T Respiratory Rate - - Oxygen Saturation - - Inhaled Oxygen Concentration - - Weight 51.2 kg (112 lb 14 oz) 12/09/2023 4:21 PM CDT Height 166.6 cm (5' 5.59) 12/09/2023 4:21 PM CD T Body Mass Index 18.45 12/09/2023 4:21 PM CDT documented in this encounter Progress Notes * Katja Umana M.D. - 12/09/2023 4:30 PM CDT GASTROENTEROLOGY & HEPATOBILIARY CLINIC FOLLOW-UP NOTE Patient Name: Monique Redmond Date of Service: 12/09/2023 Supervised by: Dr. Morales SUBJECTIVE CHIEF COMPLAINT/REASON FOR VISIT Follow-up after recent outside hospitalization HISTORY OF PRESENT ILLNESS Ms. 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 She also has severe alcohol use disorder in early remission, severe tobacco use disorder,and previous colon polyps (tubular adenoma and tubulovillous adenoma without high grade dysplasia). She was last seen on 10/15/2023 where MELD score was 20. She had been evaluated by our colleagues in Addiction Psychiatry with recommendation for completion of the full transplant protocol. She was given a PACT score of 1. She has since then followed with the Nicotine Dependence Clinic. Repeat UDS was negative throughout, and Peth was negative on 10/27/2023. Mrs. Redmond was hospitalized locally from 12/02/2023-12/06/2023 ([facility]) for progressive fatigue and decreased exercise tolerance. She was found with anemia with hemoglobin 4.9 and sodium 120. She received 1 unit PRBC. She underwent EGD on 12/03/2023 which identified small esophageal varices that were not bleeding, diffuse erythematous mucosa in the stomach, and 1 duodenal ulcer with a clean base in the first portion of the duodenum. This was 20 mm. The area was treated with epinephrine injection. Gastric biopsies were consistent with portal hypertensive gastropathy, negative for H pylori. Hemoglobin remained stable with no further signs of active bleeding. She was dis charged with PPI twice daily for 8 weeks. She did undergo paracentesis that had no evidence of SBP.It appears that she had not been following a low-sodium diet and had not been taking her oral diuretics. She was resumed on sodium restricted diet and Lasix 20 mg and spironolactone 50 mg daily. Mrs. Redmond presents today for post hospital follow-up and is accompanied by her in clinic. She denies melena or hematochezia. She has been taking her PPI twice daily. She reports fluid reaccumulation and states that the reason she discontinued oral diuretics was due to lack of visible response. She also had been told by other providers that she should not take diuretics if her systolicblood pressure is <110. Her recent home SBP has been in the 90s. She does report that she has mental fogginess and sleep-wake disturbances. She has been on Miralax only with 1 stool daily. Her reports that she has been steadily declining over the last several months. She presentsto clinic in a wheelchair and requires at least 1 person assistance with ambulating to the exam table. She has been trying to eat more and may sometimes be able to take in a protein shake, but does not do this daily as she doesn't like the taste. She states that her weight fluctuates but with the fluid reaccumulation this is difficult to monitor. OBJECTIVE BP 97/61 (BP Location: Left arm, Patient Position: Sitting, Cuff Size: Small) Pulse 80 Temp (!)34.7 ??C (Tympanic) Ht 166.6 cm Wt 51.2 kg BMI 18.45 kg/m?? Physical Exam General: Presents to clinic in wheelchair. Requires at least 1 person assist to ambulate and transfer to exam table. No acute distress. Eyes: EOMI, clear, non-injected, anicteric sclera. Cardiovascular: Normal rate, regular rhythm. S1, S2 normal. No murmurs. Lungs: Non-labored respirations on room air. Clear to auscultation bilaterally. No wheezes. Abdomen: Protuberant. Soft, not tense. Non-tender to palpation. Splenomegaly. Extremities: Warm, well-perfused. No edema. Skin: Ecchymoses across upper extremities. Neuro: Alert, oriented x 3. Generalized weakness. No asterixis. Nutritional: Loss of subcutaneous fat. Evidence of temporal and muscle wasting. Pertinent Labs and Imaging Reviewed with notable results including: Results from last 7 days Lab Units 12/06/23 0905 12/05/23 1342 12/04/23 1301 12/04/23 0921 12/03/23 1447 12/03/23 0334 EXT WBC thou/cu mm -- -- -- -- -- 8.7 EXT HEMOGLOBIN g/dL 7.6* 7.2* 8.0* 7.1* 8.3* 7.3* EXT HEMATOCRIT % -- -- -- -- -- 21.5* EXT PLATELETS AUTO thou/cu mm -- -- -- -- -- 167 Results from last 7 days Lab Units 12/06/23 1125 12/05/23 1342 12/04/23 0921 12/03/23 1447 12/03/23 0334 EXT SODIUM mmol/L 123* 122* 124* 123* 125* 124* EXT CREATININE mg/dL -- 0.50 0.64 -- 0.66 EXT BUN mg/dL -- 11 17 -- 33* EXT CHLORIDE mmol/L -- 92* 94* -- 95* EXT MAGNESIUM mg/dL -- -- -- -- 2.5* Results from last 7 days Lab Units 12/04/23 0921 EXT POC INR 1.7* ASSESSMENT / PLAN #1 Decompensated cirrhosis due to alcohol (MELD 3.0 score 20) #2 Alcohol use disorder, untreated #3 Sarcopenia #4 Malnutrition I met with Mrs. Redmond today for follow-up after she was recently hospitalized for weakness in the setting of GI bleeding from a duodenal ulcer found on endoscopy. During her last visit with me in the beginning of October 2023, we discussed that her current MELD and symptomatic decompensation would warrant evaluation for liver transplantation. She was seen by our Addiction Psychiatry colleagues with recommendation for completion of the full transplant protocol, and she was designated a PACT score of 1. Since then, she states that she has not yet sought addiction treatment or engaged in AA.She reports her last drink was in late August/early September. She denies cravings at this time. She states uncertainty on how to start treatment or who to call. I will reach out to our Psychiatry colleagues for assistance on further patient education. Since then, she has been hospitalized and appears to have become more sarcopenic and malnourished. I am concerned about her current degree of frailty. I discussed use of oral supplemental protein shakes and we will provide a referral to the Nutrition Clinic (Malnutrition Clinic) for further evaluation and consideration of enteral feeding given progressive decline. #5 Ascites, requiring serial paracenteses It is difficult to tell if her ascites is refractory as she self discontinued oral diuretics due tolack of efficacy and had not been strict with a low sodium diet. We reinforced today that she needsto follow a low sodium diet and resume her oral diuretics that may help to reduce the frequency needed of paracenteses. However, we will help to arrange therapeutic paracentesis anticipating that she needs this once every 2 weeks. #6 Hepatic encephalopathy She reports persistent mental fogginess and fatigue with sleep-wake disturbance. I discussed that we should switch from MiraLax to lactulose with goal 2-3 loose bowel movements daily. We will also initiate rifaximin twice daily. #7 Recent duodenal ulcer, status post injection She had a recent GI bleed with findings of a duodenal ulcer with a clean base in the first portion of the duodenum, measuring 20 mm. This was treated with epinephrine. She is currently taking pantoprazole 40 mg twice daily and should continue this for at least 8 weeks. #8 History of nonbleeding esophageal varix, previously banded (10/08/2023) EGD performed on 10/08/2023 was notable for a large esophageal varix with red Alexis osorio. This was banded. She has mild portal hypertensive gastropathy. Her last outside EGD on 12/03/2023 identified nonbleeding small varices. She has not able to tolerate nonselective beta-roni therapy due to borderline blood pressure. 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 AFP normal. She will need ongoing surveillance with US and AFP every 6 months. #10 Current tobacco use, ongoing She has been seen by the Nicotine Dependence clinic. She reports ongoing tobacco use, and I discussed the need for cessation. #11 History of colon polyps Her last colonoscopy was performed in 2019 in [place]. I am not able to see this report. She is recommended to follow-up with her PCP for completing surveillance colonoscopy. If she is not able tocomplete this locally, then we can arrange for this to be done at [place]. All questions were answered. This plan will be discussed with Dr. Morales. BILLING: I personally spent over half of a total 35 minutes in counseling and discussion with the patient and coordination of care as described above. Signed: Katja Umana M.D. Gastroenterology and Hepatology Fellow Pager [phone] documented in this encounter Plan of Treatment Upcoming Encounters Date Type Department Care Team (Late st Contact Info) Description 12/30/2023 3:15 PM CDT Appointment Department of Radiology, [facility], in [place], [place] [address] [place] [address] Katja Umana M.D. [address] [place] [phone] 01/19/2024 10:00 AM CDT Telemedicine Department of Nutrition and Diabetes Education in [place], [place] [address] [place] [phone] Katja Umana M.D. [address] [place] [phone] Taty Cunningham M.S., RDN, LD [address] [place] [phone] Scheduled Referrals Name Type Priority Associated Diagnoses Order Schedule Nutrition - Malnutrition medical nutrition therapy consult (clinic) Outpatient Referral Routine Alcoholic Cirrhosis Of Liver With Ascites (HCC) Sarcopenia Expected: 12/09/2023, Expires: 03/10/2025 documented as of this encounter Results * US Paracentesis with [...] IMPRESSION: Ultrasound-guided paracentesis. EP Katja Umana M.D. IMG US PROCEDURES * (ABNORMAL) Prothrombin Time (PT) (12/09/2023 5:16 PM CDT) Prothrombin Time, P 17.9(H) 9.4 - 12.5 sec 12/09/2023 5:52 PM CDT DTL INR 1.6 0.9 - 1.1 12/09/2023 5:52 PM CDT DTL Comment: ----ADDITIONAL INFORMATION---- Standard intensity warfarin therapeutic range: 2.0 to 3.0 ?? High intensity warfarin therapeutic range: 2.5 to 3.5 Blood (Blood, Venous) 12/09/2023 5:16 PM CDT 12/09/2023 5:39 PM CDT Katja Umana M.D. LAB BLOOD ADD-ON [facility] [address] [place] [address], [place] DTL [facility] [address] [place] [address] * (ABNORMAL) Comprehensive Metabolic Panel (12/09/2023 5:16 PM CDT) [facility] Potassium, S 5.0 3.6 - [...] CDT Katja Umana M.D. LAB BLOOD ADD-ON [facility] [address] [place] [address], [facility] [address] [place] [address] * (ABNORMAL) CBC with Differential, Blood (12/09/2023 5:16 PM CDT) Hemoglobin 8.3(L) 11.6 - 15.0 g/dL 12/09/2023 [...] CDT Katja Umana M.D. LAB BLOOD ADD-ON [facility] [address] [place] [address], [facility] DTL [facility] [address] [place] [address] DHPM [facility] 200 [place] [address] documented in this encounter Visit Diagnoses Diagnosis Alcoholic Cirrhosis Of Liver With Ascites (HCC)- Primary Ascites Sarcopenia Alcoholic Cirrhosis Of Liver With Ascites (HCC) Ascites documented in this encounter Additional Health Concerns Assessment Noted Time PHQ-9 Depression Total Score: 3 10/20/19 24 7:30 AM MEDICAL DEVICE SALES REPRESENTATIVE documented as of this encounter Care Teams Tetryl Screen Operator Relationship Specialty Start Date End Date Elsewhere, Pcp PCP - General Family Medicine 12/07/23 documented as of this encounter
--- OUTSIDE RECORDS SUMMARY | 2023-12-23 14:21 | XMS_ITS | Encounter Summary ---
Author Name Unknown Organization [facility] Address [address] [place] [address] Care Team Providers Care Supervisor Salvage Name Role Phone Elsewhere, Pcp Primary Care Provider Unavailabl e Reason for Referral * Outpatient (Routine) - Authorized Specialty Diagnoses / Procedures Referred By Dotty t Referred To Contact Diagnoses Ascites Procedures US Paracentesis with Imaging Guidance Katja Umana M.D. [address] [place] [phone] [facility] Referral ID Status Reason Start Date Expiration Date V isits Requested Visits Authorized [id number] Authorized 11/23/2023 11/22/2024 1 1 Reason for Visit * Reason Onset Date Comments Order Request 11/22/2023 Encounter Details Date Type Department Care Team (Latest Contact Info) Description 11/22/2023 Clinical Communication Division of Gastroenterology in [place], [place] [address] [place] [phone] Katja Umana M.D. [address] [place] [phone] Order Request Social History Tobacco Use Types Packs/Day Years Used Date Smoking Tobacco: Every Day Cigarettes 0.5 40 Smokeless Tobacco: Never Alcohol Use Standard Drinks/Week Comments Not Currently 0 (1 standard drink = 0.6 oz pur e alcohol) [facility] Utilities Answer Date Recorded In the past [...] Date Recorded Employment status Working with temporary [employer] tions 10/15/2023 Housing Stability Answer Date Recorded What is your living situation today? I have a [facility] place to live 10/15/2023 Sex and Gender Information Value Date Recorded Sex Assigned at Female 10/06/2023 10:50 AM APPEALS ASSISTANT Gender Identity Female 10/06/2023 10:50 AM APPEALS ASSISTANT Sexual Orientation Straight 10/06/2023 10 :50 AM APPEALS ASSISTANT documented as of this encounter Plan of Treatment Upcoming Encounters Date Type Department Care Team (Late st Contact Info) Description 12/30/2023 3:15 PM CDT Appointment Department of Radiology, [facility], in [place], [place] [address] [place] [address] Katja Umana M.D. [address] [place] [address] 01/19/2024 10:00 AM CDT Telemedicine Department of Nutrition and Diabetes Education in [place], [place] [address] [place] [address] Katja Umana M.D. [address] [place] [phone] Taty Cunningham M.S., RDN, LD [address] [place] [phone] Scheduled Orders Name Type Priority Associated Diagnoses Order Schedule US Paracentesis with Imaging Guidance Imaging RAD - Routine (most inpatients and all outpatients) Ascites Expected: 12/03/2023, Expires: 02/22/2025 documented as of this encounter Visit Diagnoses Diagnosis Ascites- Primary documented in this encounter Additional Health Concerns Assessment Noted Time PHQ-9 Depression Total Score: 3 10/20/19 24 7:30 AM APPEALS ASSISTANT documented as of this encounter Care Teams Supervisor Salvage Relationship Specialty Start Date End Date Elsewhere, Pcp PCP - General Family Medicine 12/07/23 documented as of this encounter
--- OUTSIDE RECORDS SUMMARY | 2023-12-23 14:21 | XMS_ITS | Encounter Summary ---
Author Name Unknown Organization [facility] Address [address] [place] [address] Care Team Providers Care Curtain Stretcher Name Role Phone Elsewhere, Pcp Primary Care Provider Unavailabl e Reason for Visit * Reason Onset Date Comments Scheduling 12/20/2023 Encounter Details Date Type Department Care Team (Latest Contact Info) Description 12/20/2023 Clinical Communication Division of Gastroenterology in [place], [place] [address] [place] [address] Katja Umana M.D. [address] [place] [address] Scheduling Social History Tobacco Use Types Packs/Day Years Used Date Smoking Tobacco: Every Day Cigarettes 0.5 40 Started: 02/11/1983 Passive Smoke Exposure: Never Smokeless Tobacco: Never Alcohol Use Standard Drinks/Week Comments Not Currently 0 (1 standard drink = 0.6 oz pur e alcohol) [facility] Utilities Answer Date Recorded In the past 12 months has [facility] [employer], gas, oil, or water [employer] threatened to shut off services in your [...] the money to buy more. Never true 02/02/20 24 Within the past 12 months, t [...] Date Recorded Employment status Working with temporary [employer] 10/15/2023 Housing Stability Answer Date Recorded What is your living situation today? I have a [facility] place to live 10/15/2023 Sex and Gender Information Value Date Recorded Sex Assigned at Female 10/06/2023 10:50 AM EQUAL OPPORTUNITY DIRECTOR Gender Identity Female 10/06/2023 10:50 AM EQUAL OPPORTUNITY DIRECTOR Sexual Orientation Straight 10/06/2023 10 :50 AM EQUAL OPPORTUNITY DIRECTOR documented as of this encounter Plan of Treatment Upcoming Encounters Date Type Department Care Team (Late st Contact Info) Description 12/30/2023 3:15 PM CDT Appointment Department of Radiology, [facility], in [place], [place] [address] [place] [address] Katja Umana M.D. 200 [place] [address] 01/19/2024 10:00 AM CDT Telemedicine Department of Nutrition and Diabetes Education in [place], [place] [address] [place] [address] Katja Umana M.D. 200 [place] [address] Taty Cunningham M.S., RDN, LD [address] [place] [phone] documented as of this encounter Visit Diagnoses Not on filedocumented in this encounter Additional Health Concerns Assessment Noted Time PHQ-9 Depression Total Score: 3 10/20/19 24 7:30 AM EQUAL OPPORTUNITY DIRECTOR documented as of this encounter Care Teams Curtain Stretcher Relationship Specialty Start Date End Date Elsewhere, Pcp PCP - General Family Medicine 12/07/23 documented as of this encounter
--- OUTSIDE RECORDS SUMMARY | 2023-12-23 14:21 | XMS_ITS | Encounter Summary ---
Author Name Unknown Organization [facility] Address [address] [place] [address] Care Team Providers Care Boning Room Worker Name Role Phone Elsewhere, Pcp Primary Care Provider Unavailabl e Reason for Visit * Reason Comments Nicotine Dependence * Outpatient (Routine) - Closed Specialty Diagnoses / Procedures Referred By Contac t Referred To Contact Nicotine Dependence Sudha Bernstein M.A., Yesy.I.C.S.W., M.S.W. [address] [place] [phone] [facility] Referral ID Status Reason Start Date Expiration Date Visits Re quested Visits Authorized [id number] Closed 11/18/2023 05/19/2025 1 1 Encounter Details Date Type Department Care Team (Late st Contact Info) Description 12/20/2023 2:00 PM CDT Virtual Visit Department of Nicotine Dependence, [facility], in [place], [place] [address] [place] [phone] Sudha Bernstein M.A., L.I.C.S.W., M.S.W. [address] [place] [phone] Nicotine Dependence Cigarettes With Withdrawal (Primary Dx) Social History Tobacco Use Types Packs/Day Years Used Date Smoking Tobacco: Every Day Cigarettes 0.5 40 Started: 02/11/1983 Passive Smoke Exposure: Never Smokeless Tobacco: Never Alcohol Use Standard Drinks/Week Comments Not Currently 0 (1 standard drink = 0.6 oz pur e alcohol) [facility] Utilities Answer Date Recorded In the past 12 months has [employer], gas, oil, or water [employer] threatened to shut off services in your [...] your living situation today? I have a [facility] place to live 10/15/2023 Sex and Gender Information Value Date Recorded Sex Assigned at Female 10/06/2023 10:50 AM BOOM OPERATOR Gender Identity Female 10/06/2023 10:50 AM BOOM OPERATOR Sexual Orientation Straight 10/06/2023 10 :50 AM BOOM OPERATOR documented as of this encounter Progress Notes * Sudha Bernstein M.A., L.I.C.S.W., M.S.W. - 12/20/2023 2:00 PM CDT OBJECTIVE Monique Redmond attended a phone follow-up appointment regarding her tobacco use. ASSESSMENT [facility] staff contacted the patient as a follow up from her phone visit last month to discuss her current interest in quitting tobacco use. The patient reported she continues to smoke and is not interested in pursuing a quit plan at this time. The patient reported being informed it is not a requirementshe quit smoking for her transplant and shared having the nicotine replacement products available for when she decides she would like to pursue a quit plan. The patient was asked if she would like [facility] staff to contact her in the future to check in and offer assistance with a tobacco quit plan and the patient expressed interest in receiving a follow up phone call in three months. The patient was encouraged to contact the [facility] Dependence Center with any questions before this time. PLAN The patient will be scheduled for a follow up phone visit in three months. The patient was encouraged to contact the [facility] Dependence Center with any questions before thistime. #1 Tobacco Use Disorder documented in this encounter Plan of Treatment Upcoming Encounters Date Type Department Care Team (Late st Contact Info) Description 12/30/2023 3:15 PM CDT Appointment Department of Radiology, [facility] in [place], [place] [address] [place] [phone] Katja Umana M.D. [address] [place] [phone] 01/19/2024 10:00 AM CDT Telemedicine Department of Nutrition and Diabetes Education in [place], [place] [address] [place] [address] Katja Umana M.D. [address] [place] [phone] Taty Cunningham M.S., RDN, LD [address] [place] [phone] documented as of this encounter Visit Diagnoses Diagnosis Nicotine Dependence Cigarettes With Withdrawal- Primary documented in this encounter Additional Health Concerns Assessment Noted Time PHQ-9 Depression Total Score: 3 10/20/19 24 7:30 AM BOOM OPERATOR documented as of this encounter Care Teams Boning Room Worker Relationship Specialty Start Date End Date Elsewhere, Pcp PCP - General Family Medicine 12/07/23 documented as of this encounter
--- OUTSIDE RECORDS SUMMARY | 2023-12-23 14:21 | XMS_ITS ---
Author Name Unknown Organization [facility] Address [address] [place] [address] Care Team Providers Care Wool Supplier Name Role Phone Unavailable Unavailable Unavailable Surgery Details Not on file Complications Check Surgery Details section. Procedure Estimated Blood Loss Check Surgery Details section. Procedure Findings Check Surgery Details section. Procedure Specimens Taken Check Surgery Details section.
--- OUTSIDE RECORDS SUMMARY | 2023-12-23 14:21 | XMS_ITS | Encounter Summary ---
Author Name Unknown Organization [facility] Address [address] [place] [address] Care Team Providers Care Radio Antenna Installer Name Role Phone Unavailable Primary Care Provider Unavailabl e Reason for Visit * Reason Onset Date Comments NDC Med Request 11/11/2023 Encounter Details Date Type Department Care Team (Latest Contact Info) Description 11/11/2023 Clinical Communication Department of Nicotine Dependence, [facility], in [place], [place] [address] [place] [phone] Sudha Bernstein M.A., L.I.C.S.W., M.S.W. [address] [place] [phone] NDC Med Request Social History Tobacco Use Types Packs/Day Years Used Date Smoking Tobacco: Every Day Cigarettes 0.5 40 Smokeless Tobacco: Never Alcohol Use Standard Drinks/Week Comments Not Currently 0 (1 standard drink = 0.6 oz pur e alcohol) [facility] Utilities Answer Date Recorded In the past 12 months has [employer], gas, oil, or water [employer] threatened to shut off services in your [...] Date Recorded Employment status Working with temporary [employer] 10/15/2023 Housing Stability Answer Date Recorded What is your living situation today? I have a [facility] place to live 10/15/2023 Sex and Gender Information Value Date Recorded Sex Assigned at Female 10/06/2023 10:50 AM AERODYNAMICIST Gender Identity Female 10/06/2023 10:50 AM AERODYNAMICIST Sexual Orientation Straight 10/06/2023 10 :50 AM AERODYNAMICIST documented as of this encounter Miscellaneous Notes * Telephone Encounter - Sudha Bernstein M.A., L.I.C.S.W., M.S.W. - 11/11/2023 11:39 AM CST Sandra, this patient is interested in having a prescription sent to [facility] in [place], [place] for the following if appropriate after you review her medical record. 14 mg nicotine patch The patient reported she has very sensitive skin and I was wondering if this can be included on theprescription so the pharmacist is aware. The patient reported she is able to use Tegaderm but thereis some tape that can cause her skin to tear. The patient also reported she does not have much bodyweight at this time and she wanted to make sure it was ok to still use a nicotine patch on her skin due to her decreased body weight. Please let me know if you have any questions. Thank you. DYNAMICIST documented in this encounter Plan of Treatment Upcoming Encounters Date Type Department Care Team (Late st Contact Info) Description 12/30/2023 3:15 PM CDT Appointment Department of Radiology, [facility] in [place], [place] [address] [place] [phone] Katja Umana M.D. [address] [place] [phone] 01/19/2024 10:00 AM CDT Telemedicine Department of Nutrition and Diabetes Education in [place], [place] [address] [place] [phone] Katja Umana M.D. [address] [place] [phone] Taty Cunningham M.S., RDN, LD [address] [place] [phone] documented as of this encounter Visit Diagnoses Not on filedocumented in this encounter Additional Health Concerns Assessment Noted Time PHQ-9 Depression Total Score: 3 10/20/19 24 7:30 AM AERODYNAMICIST documented as of this encounter
--- OUTSIDE RECORDS SUMMARY | 2023-12-23 14:21 | XMS_ITS | Encounter Summary ---
Author Name Unknown Organization [facility] Address [address] [place] [address] Care Team Providers Care Railroad Car Letterer Name Role Phone Elsewhere, Pcp Primary Care Provider Unavailabl e Reason for Visit * Reason Onset Date Comments Pre-visit Intake 12/07/2023 Encounter Details Date Type Department Care Team (Latest Contact Info) Description 12/07/2023 1:45 PM CDT Clinical Communication Virtual Review in [place], [place] 200 [place], [place] [phone] Pre-visit Intake Social History Tobacco Use Types Packs/Day Years Used Date Smoking Tobacco: Every Day Cigarettes 0.5 40 Started: 02/11/1983 Passive Smoke Exposure: Never Smokeless Tobacco: Never Alcohol Use Standard Drinks/Week Comments Not Currently 0 (1 standard drink = 0.6 oz pur e alcohol) [facility] Utilities Answer Date Recorded In the [...] your living situation today? I have a [facility] place to live 10/15/2023 Sex and Gender Information Value Date Recorded Sex Assigned at Female 10/06/2023 10:50 AM ANALYTICS ANALYST Gender Identity Female 10/06/2023 10:50 AM ANALYTICS ANALYST Sexual Orientation Straight 10/06/2023 10 :50 AM ANALYTICS ANALYST documented as of this encounter Plan of Treatment Upcoming Encounters Date Type Department Care Team (Late st Contact Info) Description 12/30/2023 3:15 PM CDT Appointment Department of Radiology, [facility], in [place], [place] [address] [place] [address] Katja Umana M.D. [address] [place] [phone] 01/19/2024 10:00 AM CDT Telemedicine Department of Nutrition and Diabetes Education in [place], [place] [address] [place] [phone] Katja Umana M.D. [address] [place] [phone] Taty Cunningham M.S., RDN, LD [address] [place] [phone] documented as of this encounter Visit Diagnoses Not on filedocumented in this encounter Additional Health Concerns Assessment Noted Time PHQ-9 Depression Total Score: 3 10/20/19 24 7:30 AM ANALYTICS ANALYST documented as of this encounter Care Teams Railroad Car Letterer Relationship Specialty Start Date End Date Elsewhere, Pcp PCP - General Family Medicine 12/07/23 documented as of this encounter
--- OUTSIDE RECORDS SUMMARY | 2023-12-23 14:21 | XMS_ITS | Encounter Summary ---
Author Name Unknown Organization [facility] Address [address] [place] [address] Care Team Providers Care Double End Production Grinder Name Role Phone Elsewhere, Pcp Primary Care Provider Unavailabl e Reason for Visit * Reason Comments Nicotine Dependence * Outpatient (Routine) - Closed Specialty Diagnoses / Procedures Referred By Contac t Referred To Contact Nicotine Dependence Sudha Bernstein M.A., Yesy.I.C.S.W., M.S.W. [address] [place] [phone] [facility] Referral ID Status Reason Start Date Expiration Date Visits Re quested Visits Authorized [id number] Closed 11/11/2023 05/12/2025 1 1 Encounter Details Date Type Department Care Team (Late st Contact Info) Description 11/18/2023 11:00 AM ELECTRIC DISTRIBUTION CHECKER Virtual Visit Department of Nicotine Dependence, [facility], in [place], [place] [address] [place] [phone] Sudha Bernstein M.A., L.I.C.S.W., M.S.W. [address] [place] [phone] Nicotine Dependence Cigarettes With Withdrawal (Primary Dx) Social History Tobacco Use Types Packs/Day Years Used Date Smoking Tobacco: Every Day Cigarettes 0.5 40 Smokeless Tobacco: Never Alcohol Use Standard Drinks/Week Comments Not Currently 0 (1 standard drink = 0.6 oz pur e alcohol) [facility] Utilities Answer Date Recorded In the past 12 months has [employer], gas, oil, or water company threatened [...] Date Recorded Employment status Working with temporary [employer] tions 10/15/2023 Housing Stability Answer Date Recorded What is your living situation today? I have a [facility] place to live 10/15/2023 Sex and Gender Information Value Date Recorded Sex Assigned at Female 10/06/2023 10:50 AM ELECTRIC DISTRIBUTION CHECKER Gender Identity Female 10/06/2023 10:50 AM ELECTRIC DISTRIBUTION CHECKER Sexual Orientation Straight 10/06/2023 10 :50 AM ELECTRIC DISTRIBUTION CHECKER documented as of this encounter Progress Notes * Sudha Bernstein M.A., LPetrosIPetrosC.S.W., M.S.W. - 11/18/2023 11:00 AM CST OBJECTIVE Monique Redmond attended a phone follow-up appointment regarding her tobacco use. Medications Patient reports that she is currently using Nicotine lozenge: 2 mg. ASSESSMENT The patient reported she has not started using the 14 mg nicotine patches that were prescribed due to not feeling the time is right for her to quit smoking. The patient reflected on navigating her current health concerns and feeling the attempt to quit smoking being an additional stressor at this time. The patient reported being informed it was required for her to quit smoking for her transplant candidacy and also acknowledge her mind is not into it at this time. Discussion was had about the value of the individual who is quitting smoking having the mind set that supports their quit plan. The patient shared she has used the nicotine lozenges at times as a replacement to smoking cigarettesand has found them to be helpful. Discussion was had about it not being recommendation for individuals to smoke while using nicotine patches due to concern about a person having too much nicotine, which would make a person feel unwell. Discussion was had about scheduling a follow up phone visit in one month to check in and see how the patient is feeling at that time about quitting tobacco use. The patient expressed agreement with this plan and was encouraged to contact the Nicotine Dependence Center with any questions or concerns before this time. PLAN The patient will be scheduled for a follow up phone visit in one month. The patient was encouraged to contact the Nicotine Dependence Center with any questions before thistime. #1 Tobacco Use Disorder 10 minutes was spent on tobacco counseling. TRIC DISTRIBUTION CHECKER documented in this encounter Plan of Treatment Upcoming Encounters Date Type Department Care Team (Late st Contact Info) Description 12/30/2023 3:15 PM CDT Appointment Department of Radiology, [facility], in [place], [place] [address] [place] [phone] Katja Umana M.D. [address] [place] [phone] 01/19/2024 10:00 AM CDT Telemedicine Department of Nutrition and Diabetes Education in [place], [place] [address] [place] [phone] Katja Umana M.D. [address] [place] [phone] Taty Cunningham M.S., RDN, LD [address] [place] [phone] documented as of this encounter Visit Diagnoses Diagnosis Nicotine Dependence Cigarettes With Withdrawal- Primary documented in this encounter Additional Health Concerns Assessment Noted Time PHQ-9 Depression Total Score: 3 10/20/19 24 7:30 AM ELECTRIC DISTRIBUTION CHECKER documented as of this encounter Care Teams Double End Production Grinder Relationship Specialty Start Date End Date Elsewhere, Pcp PCP - General Family Medicine 12/07/23 documented as of this encounter
--- OUTSIDE RECORDS SUMMARY | 2023-12-23 14:21 | XMS_ITS | Encounter Summary ---
Author Name Unknown Organization [facility] Address [address] [place] [address] Care Team Providers Care Contract Administration Coordinator Name Role Phone Elsewhere, Pcp Primary Care Provider Unavailabl e Encounter Details Date Type Department Care Team (Latest Contact Info) Description 12/21/2023 Clinical Communication [facility] in [place], [place] [address] [place] [phone] Katja Umana M.D. [address] [place] [phone] Social History Tobacco Use Types Packs/Day Years Used Date Smoking Tobacco: Every Day Cigarettes 0.5 40 Started: 02/11/1983 Passive Smoke Exposure: Never Smokeless Tobacco: Never Alcohol Use Standard Drinks/Week Comments Not Currently 0 (1 standard drink = 0.6 oz pur e alcohol) [facility] Utilities Answer Date Recorded In the past 12 months has e [employer], gas, oil, or water [employer] threatened to shut off services in your [...] Date Recorded Employment status Working with temporary [employer] 10/15/2023 Housing Stability Answer Date Recorded What is your living situation today? I have a [facility] place to live 10/15/2023 Sex and Gender Information Value Date Recorded Sex Assigned at Female 10/06/2023 10:50 AM BARREL LATHE OPERATOR INSIDE Gender Identity Female 10/06/2023 10:50 AM BARREL LATHE OPERATOR INSIDE Sexual Orientation Straight 10/06/2023 10 :50 AM BARREL LATHE OPERATOR INSIDE documented as of this encounter Miscellaneous Notes * Telephone Encounter - Liana Estrada - 12/21/2023 10:54 AM CDT Left message for patient to call back on 12/20. documented in this encounter Plan of Treatment Upcoming Encounters Date Type Department Care Team (Late st Contact Info) Description 12/30/2023 3:15 PM CDT Appointment Department of Radiology, [facility] in [place], [place] [address] [place] [address] Katja Umana M.D. [address] [place] [phone] 01/19/2024 10:00 AM CDT Telemedicine Department of Nutrition and Diabetes Education in [place], [place] [address] [place] [address] Katja Umana M.D. [address] [place] [phone] Taty Cunningham M.S., RDN, LD [address] [place] [phone] documented as of this encounter Visit Diagnoses Not on filedocumented in this encounter Additional Health Concerns Assessment Noted Time PHQ-9 Depression Total Score: 3 10/20/19 24 7:30 AM BARREL LATHE OPERATOR INSIDE documented as of this encounter Care Teams Contract Administration Coordinator Relationship Specialty Start Date End Date Elsewhere, Pcp PCP - General Family Medicine 12/07/23 documented as of this encounter
--- OUTSIDE RECORDS SUMMARY | 2023-12-23 14:21 | XMS_ITS | Encounter Summary ---
Author Name Unknown Organization [facility] Address [address] [place] [address] Care Team Providers Care Childcare Attendant Name Role Phone Unavailable Primary Care Provider Unavailabl e Reason for Referral * Outpatient (Routine) - Closed Specialty Diagnoses / Procedures Referred By Contlulu t Referred To Contact Nicotine Dependence Sudha Bernstein M.A., DonnS.Tom, M.S.W. [address] [place] [phone] [facility] Referral ID Status Reason Start Date Expiration Date Visits Re quested Visits Authorized [id number] Closed 11/18/2023 05/19/2025 1 1 Scheduling Instructions Please schedule a follow up phone visit. RVISOR POLISHING Encounter Details Date Type Department Care Team (Late st Contact Info) Description 11/18/2023 Orders Only Department of Nicotine Dependence, [facility] in [place], [place] [address] [place] [phone] Sudha Bernstein M.A., NubiaC.S.W., M.S.W. [address] [place] [phone] Social History Tobacco Use Types Packs/Day Years Used Date Smoking Tobacco: Every Day Cigarettes 0.5 40 Smokeless Tobacco: Never Alcohol Use Standard Drinks/Week Comments Not Currently 0 (1 standard drink = 0.6 oz pur e alcohol) [facility] Utilities Answer Date Recorded In the past 12 months has e electric, gas, oil, or water [employer] threatened to shut off services in your [...] Date Recorded Employment status Working with temporary [employer] tions 10/15/2023 Housing Stability Answer Date Recorded What is your living situation today? I have a [facility] place to live 10/15/2023 Sex and Gender Information Value Date Recorded Sex Assigned at Female 10/06/2023 10:50 AM SUPERVISOR POLISHING Gender Identity Female 10/06/2023 10:50 AM SUPERVISOR POLISHING Sexual Orientation Straight 10/06/2023 10 :50 AM SUPERVISOR POLISHING documented as of this encounter Plan of Treatment Upcoming Encounters Date Type Department Care Team (Late st Contact Info) Description 12/30/2023 3:15 PM CDT Appointment Department of Radiology, [facility], in [place], [place] [address] [place] [phone] Katja Umana M.D. [address] [place] [phone] 01/19/2024 10:00 AM CDT Telemedicine Department of Nutrition and Diabetes Education in [place], [place] [address] [place] [phone] Katja Umana M.D. [address] [place] [phone] Taty Cunningham M.S., RDN, LD [address] [place] [phone] Scheduled Referrals Name Type Priority Associated Diagnoses Order Schedule Nicotine Dependence office visit (clinic) Outpatient Referral Routine Expected: 12/20/2023, Expires: 02/17/2025 documented as of this encounter Visit Diagnoses Not on filedocumented in this encounter Additional Health Concerns Assessment Noted Time PHQ-9 Depression Total Score: 3 10/20/19 24 7:30 AM SUPERVISOR POLISHING documented as of this encounter
--- OUTSIDE RECORDS SUMMARY | 2023-12-23 14:21 | XMS_ITS | Encounter Summary ---
Author Name Unknown Organization [facility] Address [address] [place] [address] Care Team Providers Care Electrical Technician Name Role Phone Unavailable Primary Care Provider Unavailabl e Reason for Referral * Outpatient (Routine) - Closed Specialty Diagnoses / Procedures Referred By Delgadoac t Referred To Contact Diagnoses Ascites Procedures US Paracentesis with Imaging Guidance Felipe Morales M.D. [address] [place] [phone] [facility] Referral ID Status Reason Start Date Expiration Date Visits Re quested Visits Authorized [id number] Closed 10/11/2023 10/10/2024 1 1 CIAL CLERK Reason for Visit * Outpatient (Routine) - Closed Specialty Diagnoses / Procedures Referred By Dotty oakes Referred To Contact Diagnoses Ascites Procedures US Paracentesis with Imaging Guidance Felipe Morales M.D. 200 [place] [phone] [facility] Referral ID Status Reason Start Date Expiration Date Visits Re quested Visits Authorized [id number] Closed 10/11/2023 10/10/2024 1 1 Encounter Details Date Type Department Care Team (Latest Contact Info) Description 11/19/2023 10:08 AM JUDICIAL CLERK - 11/19/2023 12:51 PM JUDICIAL CLERK Hospital Encounter Department of Radiology, [facility], in [place], [place] [address] [place] [phone] Felipe Morales M.D. [address] [place] [phone] Ascites Discharge Disposition: Home or Self Care Social History Tobacco Use Types Packs/Day Years Used Date Smoking Tobacco: Every Day Cigarettes 0.5 40 Smokeless Tobacco: Never Alcohol Use Standard Drinks/Week Comments Not Currently 0 (1 standard drink = 0.6 oz pur e alcohol) [facility] Utilities Answer Date Recorded In the past 12 months has th e [employer], gas, oil, or water company threatened to [...] your living situation today? I have a [facility] place to live 10/15/2023 Sex and Gender Information Value Date Recorded Sex Assigned at Female 10/06/2023 10:50 AM JUDICIAL CLERK Gender Identity Female 10/06/2023 10:50 AM JUDICIAL CLERK Sexual Orientation Straight 10/06/2023 10 :50 AM JUDICIAL CLERK documented as of this encounter Last Filed Vital Signs Vital Sign Reading Time Taken Comments Blood Pressure 91/46 11/19/2023 11:45 AM JUDICIAL CLERK Pulse 84 11/19/2023 11:45 AM JUDICIAL CLERK Temperature - - Respiratory Rate - - Oxygen Saturation 100% 11/19/2023 11:45 AM JUDICIAL CLERK Inhaled Oxygen Concentration - - Weight - - Height - - Body Mass Index - - documented in this encounter Medications at Time [...] mouth daily. 30 tablet 2 11/22/2023 02/20/2024 spironolactone (ALDACTONE) 100 mg tablet Take 1 tablet (100 mg total) by mouth daily. 30 tablet 2 11/22/2023 02/20/2024 traZODone (DESYREL) 50 mg tablet Take 1 tablet (50 mg total) by mouth at bedtime. 30 tablet 0 11/22/2023 nicotine polacrilex (NICORETTE) 2 mg lozengeIndications:Ray estrella Dependence Cigarettes Apply 1 lozenge (2 mg total) to cheek as needed for smoking cessation. One lozenge every 1-2 hours as needed (maximum 20 lozenges per day) 100 each 3 10/28/2023 11/27/2023 furosemide (LASIX) 40 mg tablet Take 1 tablet (40 mg total) by mouth daily. 30 tablet 0 10/24/2023 11/22/2023 nicotine (NICODERM CQ) 14 mg/24 hr patch Apply 14 mg patch daily for four to six weeks, then taper to 7 mg for two to six weeks until off. 14 patch 3 11/11/2023 12/08/2023 nicotine (Nicoderm CQ) 7 mg/[address] 1 patch on the skin daily. Apply 14 mg patch daily for four to six weeks, then taper to 7 mg for two to six weeks until off. 14 patch 5 11/11/2023 12/08/2023 spironolactone (ALDACTONE) 100 mg tablet Take 1 tablet (100 mg total) by mouth daily. 30 tablet 0 10/24/2023 11/22/2023 traZODone (DESYREL) 50 mg tablet Take 1 tablet (50 mg total) by mouth at bedtime. 30 tablet 0 10/24/2023 11/22/2023 varenicline (CHANTIX RADHIKA) 0.5 mg (11)- 1 mg (42) tabletIndications:Nicot ine Dependence Cigarettes Use as directed on package instructions, try to quit smoking after 1 week. 53 tablet 0 10/28/2023 12/07/2023 varenicline (CHANTIX) 1 mg tabletIndications:Nicot ine Dependence Cigarettes Take 1 tablet (1 mg total) by mouth 2 (two) times a day. Take with full glass of water. 60 tablet 5 10/28/2023 12/08/2023 documented as of this encounter Plan of Treatment Upcoming Encounters Date Type Department Care Team (Late st Contact Info) Description 12/30/2023 3:15 PM CDT Appointment Department of Radiology, [facility], in [place], [place] [address] [place] [phone] Katja Umana M.D. [address] [place] [phone] 01/19/2024 10:00 AM CDT Telemedicine Department of Nutrition and Diabetes Education in [place], [place] [address] [place] [phone] Katja Umana M.D. [address] [place] [phone] Taty Cunningham M.S., RDN, LD [address] [place] [phone] Scheduled Orders Name Type Priority Associated Diagnoses Order Schedule Bacterial Culture, Aerobic + Susceptibility Microbiology Timed Ascites For manual release during upcoming procedure for 1 Occurrences starting 11/19/2023 until 11/19/2023 documented as of this encounter Procedures Procedure Name Priority Date/Time Associated Diagnosis Comments US PARACENTESIS WITH IMAGING GUIDANCE RAD - Routine (most inpatients and all outpatients) 11/19/2023 11:55 AM JUDICIAL CLERK Ascites BACTERIAL CULTURE, AEROBIC + SUSC Timed 11/19/2023 10:50 AM JUDICIAL CLERK Ascites CELL COUNT AND DIFFERENTIAL, BF Timed 11/19/2023 10:50 AM JUDICIAL CLERK Ascites documented in this encounter Results * US Paracentesis with Imaging Guidance (11/19/2023 11:55 AM JUDICIAL CLERK) Anatomical Region Laterality Modality Abdomen, Ultrasound RST LOS, Ultrasound ARZ LOS, Procedure FLA LOS, Abdominal FLA LOS, Procedural, Procedural NWWI LOS N/A Ultrasound Impressions 11/19/2023 12:26 PM JUDICIAL CLERK Ultrasound-guided paracentesis. EP Narrative 11/19/2023 12:26 PM JUDICIAL CLERK EXAM: US PARACENTESIS WITH IMAGING GUIDANCE PRE-PROCEDURE: [...] TECHNIQUE: Sterile. 1% lidocaine for local anesthesia. Ultrasound guidance. Location: Right upper quadrant peritoneal space. Needle size: 5 Fr centesis catheter. Volume aspirated: 6.7 L Appearance of aspirate: Straw-colored Complication: None. Blood loss: None. Purpose: Diagnostic and therapeutic. PATIENT INSTRUCTIONS: Patient may be dismissed from the radiology department when dismissal criteria met. POST-PROCEDURE DIAGNOSIS: Ascites. Procedure Note Jared Crespo M.D. - 11/19/2023 EXAM: US PARACENTESIS WITH IMAGING GUIDANCE PRE-PROCEDURE: [...] TECHNIQUE: Sterile. 1% lidocaine for local anesthesia. Ultrasoundguidance. Location: Right upper quadrant peritoneal space. Needle size: 5 Fr centesis catheter. Volume aspirated: 6.7 L Appearance of aspirate: Straw-colored Complication: None. Blood loss: None. Purpose: Diagnostic and therapeutic. PATIENT INSTRUCTIONS: Patient may be dismissed from the radiologydepartment when dismissal criteria met. POST-PROCEDURE DIAGNOSIS: Ascites. IMPRESSION: Ultrasound-guided paracentesis. EP Felipe Morales M.D. IMG US PROCEDURES * Bacterial Culture, Aerobic + Susceptibility (11/19/2023 10:50 AM JUDICIAL CLERK) Bacterial Culture, Aerobic + Susc No growth after 5 days of incubation. 11/24/2023 8:27 AM CDT DTL Fluid (Peritoneal Fluid) 11/19/2023 10:50 AM JUDICIAL CLERK Narrative [facility] [place] - 11/24/2023 8:27 AM CDT Bacterial Culture: Received Bactec aerobic and Bactec anaerobic bottles Felipe Morales M.D. LAB MICROBIOLOGY - GENERAL ORDERABLES [facility] [place] [address] [place] [address], [place] [facility] [address] [place] [address] * Cell Count and Differential, Body Fluid (11/19/2023 10:50 AM JUDICIAL CLERK) Fluid Type Peritoneal /Paracente sis 11/19/2023 12:39 PM JUDICIAL CLERK DHPM Gross Appearance Serous 11/19/19 24 12:39 PM JUDICIAL CLERK DHPM Total Nucleated Cells 201 /mcL 11/19/2023 12:39 PM JUDICIAL CLERK DHPM Comment: ----REFERENCE VALUE---- Synovial: <150 /mcL Peritoneal: <500 /mcL Pleural: <500 /mcL Pericardial: <500 /mcL ----ADDITIONAL INFORMATION---- This test has been modified from the adult protective caseworker's instructions. Its performance characteristics were determined by [facility] in a manner consistent with CLIA requirements. This test has not been cleared or approved by the U.S. Food and Drug Administration. Neutrophils 20 % 11/19/2023 1:42 PM JUDICIAL CLERK DHPM Comment: ----REFERENCE VALUE---- Synovial: <25% Peritoneal: <25% Pleural: <25% Pericardial: <25% Lymphocytes 16 Synovial <75% % 11/19/2023 1:42 PM JUDICIAL CLERK DHPM Monocytes/Macropha ges 60 Synovial <70% % 11/19/2023 1:42 PM JUDICIAL CLERK DHPM Other Cells 4 % 11/19/2023 1:42 PM JUDICIAL CLERK DHPM Comment: ----REFERENCE VALUE---- The reference range and other method performance specifications have not been established for this bodyfluid. The test result must be integrated into the clinical context for interpretation. Other Cells Are: See Comment 11/19/2023 1:42 PM JUDICIAL CLERK DHPM Comment:Mesothelial cells Comment See Comment 11/19/2023 1:42 PM JUDICIAL CLERK DHPM Comment:No blasts or maligna nt cells seen. Reviewed by: Jose 11/19/2023 1:42 PM JUDICIAL CLERK DHPM Fluid (Peritoneal Fluid) 11/19/2023 10:50 AM JUDICIAL CLERK Felipe Morales M.D. LAB BODY FLUIDS AND STOOLS ORDERABLES [facility] [place] [address] [place] [address], [facility] 200 [place] [address] documented in this encounter Visit Diagnoses Diagnosis Ascites documented in this encounter Administered Medications Inactive Administered Medications - up to 3 most recent administrations Medication Order MAR Action Action Date Dose Rate Site albumin human 25 % injection 50 g 50 g, intravenous, Once, On Wed11/19/23 at 1130, For 1 dose, If no infusion rate specified: Administer the 25% solution at 100 mL/hr Paracentesis Volume Albumin 25% Replacement Less than 3 liters Only at discretion of provider 3 - 4.9 liters 25 Grams/100 mL 5 - 7.9 liters 50 Grams/200 mL 8 - 9.9 liters 75 Grams/300 mL Greater than 10 liters 100 Grams/400 mL (additional albumin at the provider's discretion) New Bag 11/19/2023 11:11 AM JUDICIAL CLERK 50 g 100 mL/hr lidocaine 10 mg/mL (1 %) injection (XYLOCAINE) As needed, Starting on Wed11/19/23 at 1056, Intra-Op Given 11/19/2023 10:56 AM JUDICIAL CLERK 5 mL Abdominal Tissue documented in this encounter Active and Recently Administered Medications Times are shown in JUDICIAL CLERK. Scheduled Medication Order 11/17/2023 11/18/2023 11/19/2023 albumin human 25 % injection 50 g (COMPLETED) 50 g, intravenous, Once, On Wed11/19/23 at 1130, For 1 dose, If no infusion rate specified: Administer the 25% solution at 100 mL/hr Paracentesis Volume Albumin 25% Replacement Less than 3 liters Only at discretion of provider 3 - 4.9 liters 25 Grams/100 mL 5 - 7.9 liters 50 Grams/200 mL 8 - 9.9 liters 75 Grams/300 mL Greater than 10 liters 100 Grams/400 mL (additional albumin at the provider's discretion) 1111 (New Bag - Prov ider: Abbie Koo R.N.)1249 (Stopped - Provider: Theodore Faye R.N.) PRN Medication Order 11/17/2023 11/18/2023 11/19/2023 lidocaine 10 mg/mL (1 %) injection (XYLOCAINE) (COMPLETED) As needed, Starting on Wed11/19/23 at 1056, Intra-Op 1056 (Given - Provid er: Anne Marie Pike M.D.) documented in this encounter Additional Health Concerns Assessment Noted Time PHQ-9 Depression Total Score: 3 10/20/19 24 7:30 AM JUDICIAL CLERK documented as of this encounter
--- OUTSIDE RECORDS SUMMARY | 2023-12-23 14:21 | XMS_ITS | Encounter Summary ---
Author Name Unknown Organization [facility] Address [address] [place] [address] Care Team Providers Care Autobody Technician Name Role Phone Elsewhere, Pcp Primary Care Provider Unavailabl e Reason for Visit * Outpatient (Routine) - Closed Specialty Diagnoses / Procedures Referred By Dotty t Referred To Contact Preventive Medicine Diagnoses Alcoholic Cirrhosis Of Liver With Ascites (HCC) Katja Umana M.D. [address] [place] [phone] [facility] Referral ID Status Reason Start Date Expiration Date Visits Re quested Visits Authorized [id number] Closed 10/15/2023 04/15/2025 1 1 Encounter Details Date Type Department Care Team (Latest Contact Info) Description 12/08/2023 10:30 AM CDT Comprehensive Visit Section of Infectious Diseases in [place], [place] [address] [place] [phone] Katja Umana M.D. [address] [place] [phone] Brianna Anglin APRN, C.N.P., D.N.P. 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 I have a [facility] place to live 10/15/2023 Sex and Gender Information Value Date Recorded Sex Assigned at Female 10/06/2023 10:50 AM SUPERVISOR PAINT DEPARTMENT Gender Identity Female 10/06/2023 10:50 AM SUPERVISOR PAINT DEPARTMENT Sexual Orientation Straight 10/06/2023 10 :50 AM SUPERVISOR PAINT DEPARTMENT documented as of this encounter Patient Instructions * Patient Instructions* Brianna Anglin APRN, C.N.P., D.N.P. - 12/08/2023 10:30 AM CDT Vaccines still needed: --Shingrix (Shingles) 2 doses by at least 4 weeks -- 2nd Hepatitis B vaccine (Heplisav-B) on or after 01/05/2024. documented in this encounter Consult Notes * Brianna Anglin APRN, C.N.P., Reji.N.P. - 12/08/2023 10:30 AM CDT SUBJECTIVE REFERRAL SOURCE: Referred by Dr. Umana. CHIEF COMPLAINT/REASON FOR CONSULT Immunization review and recommendations. HISTORY OF PRESENT ILLNESS Ms. Redmond is a 63 y.o. female who has a history of alcoholic cirrhosis of the liver with asciteswho is being followed by the Hepatobiliary team here at [facility]. They have requested for patient to be seen by the Immunization Clinic to review immunizations and to discuss recommendations givenpatient's history. Currently smokes cigarettes: yes History of cirrhosis or chronic liver disease: yes Diagnosis of alcoholism: yes OBJECTIVE Past Medical History Monique Redmond has a past medical history of Cirrhosis Nonalcoholic (HCC), Polyp Colon, and Screening Examination For Viral Disease (10/06/2023). Past Surgical History Monique Redmond has a past surgical history that includes Hysterectomy. IMMUNIZATIONS Immunization History Administered Date(s) Administered Rabies (Imovax) 11/14/2020, 12/09/2020 Rabies (Rabavert) 11/14/2020, 12/09/2020 SARS-COV-2 (COVID-19) - MODERNA(Discontinued) 10/24/2020, 11/21/2020 Tdap 08/03/2017 influenza vaccine quad (FLUZONE/FLUARIX) (6 months and older)(PF) 09/19/2018, 07/13/2019 MEDICATIONS I have reviewed current medications. Current Outpatient Medications: acetaminophen 650 mg/20.3 mL suspension, Take 650 mg by mouth every 4 (four) hours as needed (for pain). No more than 2000 mg in 24 hours, Disp: , Rfl: furosemide (LASIX) 40 mg tablet, Take 1 tablet (40 mg total) by mouth daily. (Patient taking differently: Take 20 mg by mouth daily.), Disp: 30 tablet, Rfl: 2 pantoprazole (PROTONIX) 40 mg EC tablet, Take 40 mg by mouth 2 (two) times a day before breakfast and dinner., Disp: , Rfl: spironolactone (ALDACTONE) 100 mg tablet, Take 1 tablet (100 mg total) by mouth daily. (Patient taking differently: Take 50 mg by mouth daily.), Disp: 30 tablet, Rfl: 2 traZODone (DESYREL) 50 mg tablet, Take 1 tablet (50 mg total) by mouth at bedtime., Disp: 30 tablet, Rfl: 0 No current facility-administered medications for this visit. DIAGNOSTICS HBs Antibody, S Date/Time Value Ref Range Status 10/06/2023 12:17 PM Negative Final Comment: Patient is presumed to be not immune to infection with HBV. ----REFERENCE VALUE---- Unvaccinated: Negative Vaccinated: Positive Positive Hepatitis A IgG antibodies noted with lab work obtained on 10/06/2023. 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 Immunization recommendations Based on patient's past medical and immunization history, immunization recommendations are: Hepatitis A: Patient is noted to have positive IgG antibodies with lab work obtained on 10/06/2023. Nothing further is indicated. Hepatitis B: Patient has negative Hbs antibodies noted with lab work on 10/06/2023. Advise to initiate 2-dose Heplisav-B series. Dose #1 of 2 now, followed by dose #2 of 2 at least 4 weeks later. Hib (Haemophilus influenza type b): Not indicated. HPV (Human papilloma virus): Not indicated. Influenza: Recommended dose now and annually thereafter. MMR: Patient reports having measles illness as a child. Nothing further indicated at this time. Meningococcal ACWY: Not indicated. Meningococcal B (MenB): Not indicated. Pneumococcal: Based on patients reported medical indications, age and past pneumococcal vaccination records, per the CDC PneumoRecs VaxAdvisor application for Clinicians: Advise 1 dose of PCV20 now, then pneumococcal vaccination is complete Tetanus: Tdap/Td last dose is 08/03/2017. Advise Tdap in place of Td every 10 years, next Tdap due 08/03/2027. Varicella: Patient has proof of immunity [from one of the following - [place] born and living in [place] before 1979, documentation of 2 doses Varicella by at least 4 weeks after age 12 months, positive chickenpox (varicella) Ab IgG in serum, or diagnosis or verification of varicella disease by a healthcare provider, diagnosis or verification of herpes zoster (shingles) by a healthcare provider]. Nothing further indicated. Shingrix: Universally recommended for all on or after age 50 years: 2-dose series of Shingrix by atleast 4 weeks. COVID-19: Per the CDC's interim guidelines, recommend one dose of 2022/2023 formulation, then initial series is complete. Patient was provided and we reviewed the patient education material from Immunize.org: Guide to Immunization Schedules for Patients - Information for Parents - Patient Handouts (immunize.org) Immunize.org Vaccination for adults with pt ed material: Vaccination for Adults with Chronic Liver Disease or Infection All immunization related questions were answered. Based on the patient's reported past medical and immunization history and after discussion of risksand benefits; The patient consents to receive the following vaccines: Heplisav-B?? (2-dose series only if both doses are Heplisav-B??). Prevnar?? (PCV20). The following vaccines were discussed but the patient did not receive: Shingrix?? - because patient declined vaccine at today's visit as she prefers to receive on a day that she does not have something planned the next day to avoid potential side effects from the vaccine. COVID-19 formulation - because patient declined vaccine at today's visit. Influenza - because patient declined vaccine at today's visit. RSV - because patient declined vaccine at today's visit. Vaccine indications, contraindications, dosing schedule, efficacy and adverse effects for each vaccine were reviewed. Vaccine information statements were provided.. Patient was informed to follow up to receive: Shingrix - 2 doses by at least 4 weeks - patient has plans to receive vaccine series at apharmacy closer to her home. Heplisav-B - dose #2 of 2; at least 4 weeks after dose #1. Patient has plans to receive vaccine at a clinic closer to her home. PATIENT EDUCATION Ready to learn, no apparent learning barriers were identified; learning preferences include listening. Explained diagnosis and treatment plan; patient expressed understanding of the content. The patient received immunization counseling for each vaccine including a review/discussion of the risks and benefits of the recommended vaccines. Treatment plan reviewed with patient and family. They expressed understanding. All questions answered to their satisfaction. 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 BILLING Total Time: 21 minutes. documented in this encounter Plan of Treatment Upcoming Encounters Date Type Department Care Team (Late st Contact Info) Description 12/30/2023 3:15 PM CDT Appointment Department of Radiology, [facility], in [place], [place] [address] [place] [phone] Katja Umana M.D. [address] [place] [phone] 01/19/2024 10:00 AM CDT Telemedicine Department of Nutrition and Diabetes Education in [place], [place] [address] [place] [phone] Katja Umana M.D. 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
--- OUTSIDE RECORDS SUMMARY | 2023-12-23 14:22 | XMS_ITS | Encounter Summary ---
Author Name Unknown Organization [facility] Address [address] [place] [address] Care Team Providers Care Horticultural Specialty Grower Field Name Role Phone Unavailable Primary Care Provider Unavailabl e Encounter Details Date Type Department Care Team (Latest Contact Info) Description 10/08/2023 3:19 PM DRAPERY HEMMER AUTOMATIC Anesthesia Event Division of Gastroenterology in [place], [place] [address] [place] [address] Jeffy Moy APRN, JAGUAR [address] [place] [phone] Joshua Beverly M.D. [address] [place] [phone] Anesthesia Record Procedure Summary Procedure Name Responsible Anesthesiologist Anesthesia Start Time Anesthesia Stop Time EGD (ESOPHAGOGASTRODUODE NOSCOPY) RESTRICTED Jeffy Moy APRN, CRNA 10/08/23 1519 10/08/23 1550 Events Date Time Event Comment 10/08/2023 1519 An Start Machine/Equipme nt Checked Infection Precautions Followed Procedure/Site Verified NPO Status Verified Supine Standard ASA Monitors Applied 1523 Turnover to Proceduralist 1529 Anesthesia Time Out 1530 Proc Start 1540 Proc Fin 1541 Turnover to ANE Staff 1544 an stop data 1550 An End I completed my handoff to the receiving staff during which we 1. Identified the patient 2. Identified the responsible provider 3. Reviewed the pertinent medical history 4. Discussed the surgical course 5. Reviewed intra-op anesthesia management and issues during anesthesia 6. Set expectations for post-procedure period 7. Allowed opportunity for questions and acknowledgement of understanding. Meds Name Total fentaNYL PF injection 50 mcg/mL 25 mcg lidocaine 2% (mg) injection 60 mg ondansetron PF 4 mg/2 mL injection 4 mg propofol 10 mg/mL injection 40 mg propofol 10 mg/mL infusion 145.86 mg Lactated Ringers Free Drip 50 mL * Agents No agents on file. * Blood No blood administrations on file. Lines, Drains, and Airways Type Details Placement Removal Wound 10/08/23; 1120; N; 10/08/23; Puncture; Pannus; Lateral, Left; Paracentesis Site; 10/22/23; 1114 10/08/23 1120 by Ap Suggs RPetrosNPetros 10/22/23 1114 by Brent Hartley RMark Peripheral IV Placement Date: 09/14 03/06; Placement Time: 1136; Catheter Size: 22 G; Orientation: Right; Location: Antecubital; Site Prep: Alcohol; Technique: Anatomical landmarks; Inserted by: Elvie Olivera RN; Insertion Attempts: 1; Removal Date: 10/08/23; Removal Time: 1618; Removal Reason: Patient discharged 10/08/23 1136 by Ap Suggs, R.NPetros 10/08/23 1618 by Refugio Martinez RMark documented in this encounter Social History Tobacco Use Types Packs/Day Years Used Date Smoking Tobacco: Every Day Cigarettes 0.5 40 Smokeless Tobacco: Never Alcohol Use Standard Drinks/Week Comments Not Currently 0 (1 standard drink = 0.6 oz pur e alcohol) Nutrition Answer Date Recorded Nutrition: EVOO Fat Source Unknown 11/10 Nutrition: Servings of Fruits/Vegetables per Day Not on file 2020 Dental Answer Date Recorded Dental: Regular Dentist Unknown 11/10/19 21 Sex and Gender Information Value Date Recorded Sex Assigned at Female 10/06/2023 10:50 AM DRAPERY HEMMER AUTOMATIC Gender Identity Female 10/06/2023 10:50 AM DRAPERY HEMMER AUTOMATIC Sexual Orientation Straight 10/06/2023 10 :50 AM DRAPERY HEMMER AUTOMATIC documented as of this encounter OR Notes * Anesthesia Postprocedure Evaluation - Jeffy Moy APRN, JAGUAR - 10/08/2023 3:50 PM CST Patient: Monique Redmond Procedure Summary Date: 10/08/23 Room / Location: Division of Gastroenterology in [place], [place] Anesthesia Start: 151 Anesthesia Stop: 1550 Procedure: EGD (ESOPHAGOGASTRODUODENOSCOPY) RESTRICTED Diagnosis: Alcoholic Cirrhosis Of Liver With Ascites (HCC) Alcoholic Cirrhosis Of Liver With Ascites (HCC) Scheduled Providers: Gaviota Kamara APRN, CRNA Responsible Provider: Jeffy Moy APRN, CRNA Anesthesia Type: MAC ASA Status: 3 Anesthesia Type: MAC Last vitals Vitals Value Taken Time BP 119/60 10/08/23 1548 Temp Pulse 118 10/08/23 1550 Resp 23 10/08/23 1550 SpO2 95 % 10/08/23 1550 Vitals shown include unfiled device data. Please reference Vitals flowsheet for most recent vital signs. Anesthesia Post Evaluation Patient Disposition: dismissal Cardiovascular status: hemodynamics (HR & BP) acceptable Respiratory status: patent airway with spontaneous effort Temperature: normothermic Oxygen requirements: room air Level of consciousness: awake Pain score: pain adequately controlled and/or at baseline Post Op nausea/vomiting: none Hydration status: euvolemic ERY HEMMER AUTOMATIC * Anesthesia Preprocedure Evaluation - Jeffy Moy APRN, CRNA - 10/08/2023 3:34 PM CST Preprocedure Anesthesia & H&P Assessment Procedure Summary Anesthesia Start Date/Time: 10/08/231518 Scheduled providers: Gaviota Kamara APRN, CRNA Procedure: EGD (ESOPHAGOGASTRODUODENOSCOPY) RESTRICTED Diagnosis: Alcoholic Cirrhosis Of Liver With Ascites (HCC) [K70.31] Alcoholic Cirrhosis Of Liver With Ascites (HCC) [K70.31] Location: Division of Gastroenterology in [place], [place] Pertinent components of the patient's history including current problem list, medical history, surgical history, family history, social history, medications and allergies were reviewed. Present illness and pre-op diagnosis were confirmed. The planned surgery / procedure was verified with the patient / legal guardian. The patient's general health condition remains unchanged RELEVANT COMORBID CONDITIONS No relevant active problems OBJECTIVE PHYSICAL EXAMINATION Airway (HEENT) Mallampati: III TM Distance: >3 FB Neck ROM: Full Mouth Opening: >3 cm Cardiovascular Rhythm: Regular Rate: Normal Cardiovascular Assessment: murmur Functional Capacity: <4 METS Pulmonary Pulmonary Assessment: Clear General / Constitutional Constitutional Assessment: Normal General State of Health:: calm and ill appearing Neurological Neurologic Assessment: alert and oriented x 3 Dental Dental Assessment: dentition in poor repair ASSESSMENT / PLAN ANESTHESIA PLAN ASA: 3 Anesthesia Plan: MAC Patient seen and allergies reviewed, anesthesia plan and risks discussed directly with patient /legal guardian or through an language interpreter. Risks/Benefits/Alternatives of Blood transfusion discussed with patient / legal guardian, includingan opportunity to ask questions and/or decline some or all transfusion therapies. The patient / legal guardian consented to the use of all blood products, as deemed medically necessary Approval to Proceed: approved for anesthesia ERY HEMMER AUTOMATIC documented in this encounter Plan of Treatment Upcoming Encounters Date Type Department Care Team (Late st Contact Info) Description 12/30/2023 3:15 PM CDT Appointment Department of Radiology, [facility], in [place], [place] [address] [place] [phone] Katja Umana M.D. [address] [place] [phone] 01/19/2024 10:00 AM CDT Telemedicine Department of Nutrition and Diabetes Education in [place], [place] [address] [place] [phone] Katja Umana M.D. [address] [place] [phone] Taty Cunningham M.S., RDN, LD [address] [place] [phone] documented as of this encounter Visit Diagnoses Not on filedocumented in this encounter Administered Medications Inactive Administered Medications - up to 3 most recent administrations Medication Order MAR Action Action Date Dose Rate Site fentaNYL injection (SUBLIMAZE) intravenous, As needed, Starting on Wed10/08/23 at 1530, Anesthesia Intra-op Given 10/08/2023 3:30 PM DRAPERY HEMMER AUTOMATIC 25 mcg Lactated Ringer's intravenous, Continuous Infusion: Per Instructions PRN, Starting on Wed10/08/23 at 1523, Anesthesia Intra-op New Bag 10/08/2023 3:23 PM DRAPERY HEMMER AUTOMATIC lidocaine (PF) (cardiac) injection intravenous, As needed, Starting on Wed10/08/23 at 1523, Anesthesia Intra-op Given 10/08/2023 3:23 PM DRAPERY HEMMER AUTOMATIC 60 mg ondansetron (PF) injection (ZOFRAN) intravenous, As needed, Starting on Wed10/08/23 at 1523, Anesthesia Intra-op Given 10/08/2023 3:23 PM DRAPERY HEMMER AUTOMATIC 4 mg propofol 10 mg/mL infusion (DIPRIVAN) intravenous, Continuous Infusion: Per Instructions PRN, Starting on Wed10/08/23 at 1523, Anesthesia Intra-op New Bag 10/08/2023 3:23 PM DRAPERY HEMMER AUTOMATIC 150 mcg/kg/min 51.48 mL/hr propofoL injection (DIPRIVAN) intravenous, As needed, Starting on Wed10/08/23 at 1524, Anesthesia Intra-op Given 10/08/2023 3:26 PM DRAPERY HEMMER AUTOMATIC 20 mg Given 10/08/2023 3:24 PM DRAPERY HEMMER AUTOMATIC 20 mg documented in this encounter
--- OUTSIDE RECORDS SUMMARY | 2023-12-23 14:22 | XMS_ITS | Encounter Summary ---
Author Name Unknown Organization [facility] Address [address] [place] [address] Care Team Providers Care Web Applications Administrator Name Role Phone Unavailable Primary Care Provider Unavailabl e Encounter Details Date Type Department Care Team (Latest Contact Info) Description 10/27/2023 10:26 AM SCALP TREATMENT SPECIALIST - 10/27/2023 11:59 PM SCALP TREATMENT SPECIALIST Hospital Encounter Department of Laboratory Medicine in [address] [phone] Romana Diane M.D., Ph.D. [address] [place] [address] Alcohol Moderate Or Severe Use Disorder (Dependence) Uncomplicated (HCC) Discharge Disposition: Home or Self Care Social History Tobacco Use Types Packs/Day Years Used Date Smoking Tobacco: Every Day Cigarettes 0.5 40 Smokeless Tobacco: Never Alcohol Use Standard Drinks/Week Comments Not Currently 0 (1 standard drink = 0.6 oz pur e alcohol) [facility] Utilities Answer Date Recorded In the past 12 months has e [employer], gas, oil, or water [employer] threatened to shut off services in your [...] Date Recorded Employment status Working with temporary [employer] 10/15/2023 Housing Stability Answer Date Recorded What is your living situation today? I have a [facility] place to live 10/15/2023 Sex and Gender Information Value Date Recorded Sex Assigned at Female 10/06/2023 10:50 AM SCALP TREATMENT SPECIALIST Gender Identity Female 10/06/2023 10:50 AM SCALP TREATMENT SPECIALIST Sexual Orientation Straight 10/06/2023 10 :50 AM SCALP TREATMENT SPECIALIST documented as of this encounter Medications at Time of Discharge Medication Sig Dispensed Refills Start Date End Date acetaminophen 650 mg/20.3 mL suspension Take 650 mg by mouth every 4 (four) hours as needed (for pain). No more than 2000 mg in 24 hours 0 11/08/2014 furosemide (LASIX) 40 mg tablet Take 1 tablet (40 mg total) by mouth daily. 30 tablet 0 10/24/2023 11/22/2023 spironolactone (ALDACTONE) 100 mg tablet Take 1 tablet (100 mg total) by mouth daily. 30 tablet 0 10/24/2023 11/22/2023 traZODone (DESYREL) 50 mg tablet Take 1 tablet (50 mg total) by mouth at bedtime. 30 tablet 0 10/24/2023 11/22/2023 documented as of this encounter Plan of Treatment Upcoming Encounters Date Type Department Care Team (Late st Contact Info) Description 12/30/2023 3:15 PM CDT Appointment Department of Radiology, [facility], in [place], [place] [address] [place] [phone] Katja Umana M.D. [address] [place] [phone] 01/19/2024 10:00 AM CDT Telemedicine Department of Nutrition and Diabetes Education in [place], [place] [address] [place] [phone] Katja Umana M.D. [address] [place] [phone] Taty Cunningham M.S., RDN, LD [address] [place] [phone] documented as of this encounter Procedures Procedure Name Priority Date/Time Associated Diagnosis Comments ETHYL GLUCURONIDE CONFIRMATION, U Routine 10/27/2023 10:38 AM SCALP TREATMENT SPECIALIST Alcohol Moderate Or Severe Use Disorder (Dependence) Uncomplicated (HCC) CONFIRMED DRUG ABUSE PANEL, U Routine 10/27/2023 10:38 AM SCALP TREATMENT SPECIALIST Alcohol Moderate Or Severe Use Disorder (Dependence) Uncomplicated (HCC) documented in this encounter Results * Drug Abuse Survey with Confirmation, Urine (10/27/2023 10:38 AM SCALP TREATMENT SPECIALIST) Alcohol Negative Cutoff: 10 mg/dL 10/28/2023 9:08 AM SCALP TREATMENT SPECIALIST [facility] Amphetamines Negative Cutoff: 500 ng/mL 10/28/2023 9:08 AM SCALP TREATMENT SPECIALIST [facility] Barbiturates Negative Cutoff: 200 ng/mL 10/28/2023 9:08 AM SCALP TREATMENT SPECIALIST [facility] Benzodiazepines Negative Cutoff: 100 ng/mL 10/28/2023 9:08 AM SCALP TREATMENT SPECIALIST [facility] Cocaine Negative Cutoff: 150 ng/mL 10/28/2023 9:08 AM SCALP TREATMENT SPECIALIST [facility] Comment: This cocaine immunoassay targets benzoylecgonine the primary metabolite of cocaine. Opiates Negative Cutoff: 300 ng/mL 10/28/2023 9:08 AM [facility] Phencyclidine Negative Cutoff: 25 ng/mL 10/28/2023 9:08 AM SCALP TREATMENT SPECIALIST [facility] Tetrahydrocannabinol Negative Cutoff: 50 ng/mL 10/28/2023 9:08 AM [facility] Comment: This immunoassay targets delta-9 tetrahydrocannabinol carboxylic acid (THC-COOH), a metabolite of delta-9 tetrahydrocannabinol the main psychoactive ingredient of marijuana. ----ADDITIONAL INFORMATION---- This report is intended for use in clinical monitoring or management of patients. ??It is not intended for use in employment-related testing. Urine (Urine, Midstream) 10/27/2023 10:38 AM SCALP TREATMENT SPECIALIST 10/27/2023 10:03 PM SCALP TREATMENT SPECIALIST Romana Diane M.D., Ph.D. LAB URI NE ORDERABLES [facility] [address] [place] [address] [facility] [address] [place] [address] [place] [address] * Ethyl Glucuronide Confirmation, Random, Urine (10/27/2023 10:38 AM [facility]) [facility] Ethyl Glucuronide Confirmation, U Negative Cutoff: 250 ng/mL 10/29/2023 8:19 AM [facility] Ethyl Sulfate Negative Cutoff: 100 ng/mL 10/29/2023 8:19 AM [facility] Ethyl Gluc/Sulfate Interpretation Negative. 10/29/2023 8:19 AM [facility] Comment: ----ADDITIONAL INFORMATION---- This report is intended for use in clinical monitoring and management of patients. ??It is not intended for use in employment-related testing. This test was developed and its performance characteristics determined by [facility] in a manner consistent with CLIA requirements. This test has not been cleared or approved by the U.S. Food and Drug Administration. Urine (Urine, Midstream) 10/27/2023 10:38 AM SCALP TREATMENT SPECIALIST 10/27/2023 10:00 PM SCALP TREATMENT SPECIALIST Romana Diane M.D., Ph.D. LAB URI NE ORDERABLES [facility] [address] [place] [address] [facility] [address] [place] [address] [place] [address] documented in this encounter Visit Diagnoses Diagnosis Alcohol Moderate Or Severe Use Disorder (Dependence) Uncomplicated (HCC) documented in this encounter Additional Health Concerns Assessment Noted Time PHQ-9 Depression Total Score: 3 10/20/19 24 7:30 AM SCALP TREATMENT SPECIALIST documented as of this encounter
--- OUTSIDE RECORDS SUMMARY | 2023-12-23 14:22 | XMS_ITS | Encounter Summary ---
Author Name Unknown Organization [facility] Address [address] [place] [address] Care Team Providers Care Immigration Lawyer Name Role Phone Unavailable Primary Care Provider Unavailabl e Reason for Visit * Reason Onset Date Comments NDC Med Request 10/28/2023 Encounter Details Date Type Department Care Team (Latest Contact Info) Description 10/28/2023 Clinical Communication Department of Nicotine Dependence, [facility], in [place], [place] [address] [place] [address] Sudha Bernstein M.A., L.I.C.S.W., M.S.W. [address] [place] [phone] NDC Med Request Social History Tobacco Use Types Packs/Day Years Used Date Smoking Tobacco: Every Day Cigarettes 0.5 40 Smokeless Tobacco: Never Alcohol Use Standard Drinks/Week Comments Not Currently 0 (1 standard drink = 0.6 oz pur e alcohol) [facility] Utilities Answer Date Recorded In the past 12 months has [employer], gas, oil, or water [employer] threatened to shut off services in your [...] Date Recorded Employment status Working with temporary [employer] 10/15/2023 Housing Stability Answer Date Recorded What is your living situation today? I have a [facility] place to live 10/15/2023 Sex and Gender Information Value Date Recorded Sex Assigned at Female 10/06/2023 10:50 AM CHAR PULLER Gender Identity Female 10/06/2023 10:50 AM CHAR PULLER Sexual Orientation Straight 10/06/2023 10 :50 AM CHAR PULLER documented as of this encounter Miscellaneous Notes * Addendum Note - Raisa Hunt M.D. - 10/28/2023 5:01 PM CSTAddended by: RAISA HUNT on: 10/28/2023 05:01 PM Modules accepted: Orders PULLER * Telephone Encounter - Sudha Bernstein M.A., L.I.C.S.W., M.S.W. - 10/28/2023 11:[address] Hunt, this patient is interested in having a prescription for Varenicline and nicotine lozenges sent to [facility] in [place], [place] for smoking cessation if appropriate based on your review of her medical record. Varenicline Starter Pack with refills 2 mg nicotine lozenges Thank you. PULLER documented in this encounter Plan of Treatment Upcoming Encounters Date Type Department Care Team (Late st Contact Info) Description 12/30/2023 3:15 PM CDT Appointment Department of Radiology, [facility], in [place], [place] [address] [place] [phone] Katja Umana M.D. [address] [place] [phone] 01/19/2024 10:00 AM CDT Telemedicine Department of Nutrition and Diabetes Education in [place], [place] [address] [place] [phone] Katja Umana M.D. [address] [place] [phone] Taty Cunningham M.S., RDN, LD [address] [place] [phone] documented as of this encounter Visit Diagnoses Diagnosis Nicotine Dependence Cigarettes- Primary documented in this encounter Additional Health Concerns Assessment Noted Time PHQ-9 Depression Total Score: 3 10/20/19 24 7:30 AM CHAR PULLER documented as of this encounter
--- OUTSIDE RECORDS SUMMARY | 2023-12-23 14:22 | XMS_ITS | Encounter Summary ---
Author Name Unknown Organization [facility] Address [address] [place] [address] Care Team Providers Care Telephone Mechanic Name Role Phone Unavailable Primary Care Provider Unavailabl e Reason for Referral * Outpatient (Routine) - Closed Specialty Diagnoses / Procedures Referred By Dotty oakes Referred To Contact Diagnoses Ascites Procedures US Paracentesis with Imaging Guidance Katja Umana M.D. [address] [place] [phone] [facility] Referral ID Status Reason Start Date Expiration Date Visits Re quested Visits Authorized [id number] Closed 10/18/2023 10/17/2024 1 1 LFA DEHYDRATOR OPERATOR Encounter Details Date Type Department Care Team (Latest Contact Info) Description 10/18/2023 Clinical Communication Division of Gastroenterology in [place], [place] [address] [place] [phone] Katja Umana M.D. [address] [place] [phone] Social History Tobacco Use Types Packs/Day Years Used Date Smoking Tobacco: Every Day Cigarettes 0.5 40 Smokeless Tobacco: Never Alcohol Use Standard Drinks/Week Comments Not Currently 0 (1 standard drink = 0.6 oz pur e alcohol) [facility] Utilities Answer Date Recorded In the [...] your living situation today? [facility] 10/15/2023 Sex and Gender Information Value Date Recorded Sex Assigned at Female 10/06/2023 10:50 AM ALFALFA DEHYDRATOR OPERATOR Gender Identity Female 10/06/2023 10:50 AM ALFALFA DEHYDRATOR OPERATOR Sexual Orientation Straight 10/06/2023 10 :50 AM ALFALFA DEHYDRATOR OPERATOR documented as of this encounter Plan of Treatment Upcoming Encounters Date Type Department Care Team (Late st Contact Info) Description 12/30/2023 3:15 PM CDT Appointment Department of Radiology, [facility], in [place], [place] [address] [place] [address] Katja Umana M.D. [address] [place] [phone] 01/19/2024 10:00 AM CDT Telemedicine Department of Nutrition and Diabetes Education in [place], [place] [address] [place] [address] Katja Umana M.D. [address] [place] [phone] Taty Cunningham M.S., RDN, LD [address] [place] [phone] documented as of this encounter Results * US Paracentesis with Imaging Guidance (10/22/2023 10:18 AM ALFALFA DEHYDRATOR OPERATOR) Anatomical Region Laterality Modality Abdomen, Ultrasound RST LOS, Ultrasound ARZ LOS, Procedure FLA LOS, Abdominal FLA LOS, Procedural, Procedural NWWI LOS N/A Ultrasound Impressions 10/22/2023 10:26 AM ALFALFA DEHYDRATOR OPERATOR Ultrasound-guided diagnostic and therapeutic paracentesis. NR Narrative 10/22/2023 10:26 AM ALFALFA DEHYDRATOR OPERATOR EXAM: US PARACENTESIS WITH IMAGING GUIDANCE PRE-PROCEDURE: [...] for local anesthesia. Ultrasound guidance. Location: Right lower quadrant peritoneal space. Needle size: 5 Fr centesis catheter. Volume aspirated: 8,259 mLs Appearance of aspirate: Straw-colored Complication: None. Blood loss: None. Purpose: Diagnostic and therapeutic. PATIENT INSTRUCTIONS: Patient may be dismissed from the radiology department when dismissal criteria met. POST-PROCEDURE DIAGNOSIS: Recurrent ascites. Procedure Note Felipe Da Silva M.D. - 10/22/2023 EXAM: US PARACENTESIS WITH IMAGING GUIDANCE PRE-PROCEDURE: [...] lidocaine for local anesthesia. Ultrasoundguidance. Location: Right lower quadrant peritoneal space. Needle size: 5 Fr centesis catheter. Volume aspirated: 8,259 mLs Appearance of aspirate: Straw-colored Complication: None. Blood loss: None. Purpose: Diagnostic and therapeutic. PATIENT INSTRUCTIONS: Patient may be dismissed from the radiologydepartment when dismissal criteria met. POST-PROCEDURE DIAGNOSIS: Recurrent ascites. IMPRESSION: Ultrasound-guided diagnostic and therapeutic paracentesis. NR Katja Umana M.D. IMG US PROCEDURES documented in this encounter Visit Diagnoses Diagnosis Ascites- Primary Ascites documented in this encounter
--- OUTSIDE RECORDS SUMMARY | 2023-12-23 14:22 | XMS_ITS | Encounter Summary ---
Author Name Unknown Organization [facility] Address [address] [place] [address] Care Team Providers Care Rn Liaison Name Role Phone Unavailable Primary Care Provider Unavailabl e Encounter Details Date Type Department Care Team (Latest Contact Info) Description 10/27/2023 10:26 AM RAILROAD CAR CHECKER - 10/27/2023 11:59 PM RAILROAD CAR CHECKER Hospital Encounter Department of Laboratory Medicine in [address] [phone] Katja Umana M.D. [address] [place] [address] Alcoholic Cirrhosis Of Liver With Ascites (HCC); Alcohol Moderate Or Severe Use Disorder (Dependence) Uncomplicated (HCC) Discharge Disposition: Home or Self Care Social History Tobacco Use Types Packs/Day Years Used Date Smoking Tobacco: Every Day Cigarettes 0.5 40 Smokeless Tobacco: Never Alcohol Use Standard Drinks/Week Comments Not Currently 0 (1 standard drink = 0.6 oz pur e alcohol) [facility] Utilities Answer Date Recorded In the past 12 months has e [employer], gas, oil, or water [facility] threatened to shut off services in your [...] Date Recorded Employment status Working with temporary [employer] 10/15/2023 Housing Stability Answer Date Recorded What is your living situation today? I have a [facility] place to live 10/15/2023 Sex and Gender Information Value Date Recorded Sex Assigned at Female 10/06/2023 10:50 AM RAILROAD CAR CHECKER Gender Identity Female 10/06/2023 10:50 AM RAILROAD CAR CHECKER Sexual Orientation Straight 10/06/2023 10 :50 AM RAILROAD CAR CHECKER documented as of this encounter Medications at [...] 3:15 PM CDT Appointment Department of Radiology, [facility], in [place], [place] [address] [place] [address] Katja Umana M.D. [address] [place] [address] 01/19/2024 10:00 AM CDT Telemedicine Department of Nutrition and Diabetes Education in [place], [place] [address] [place] [address] Katja Umana M.D. [address] [place] [phone] Taty Cunningham M.S., RDN, LD [address] [place] [phone] documented as of this encounter Procedures Procedure Name Priority Date/Time Associated Diagnosis Comments PHOSPHATIDYLETHANOL CONFIRMATION, B Routine 10/27/2023 10:33 AM RAILROAD CAR CHECKER Alcohol Moderate Or Severe Use Disorder (Dependence) Uncomplicated (HCC) BASIC METABOLIC PANEL, S/P Routine 10/27 10:33 AM RAILROAD CAR CHECKER Alcoholic Cirrhosis Of Liver With Ascites (HCC) documented in this encounter Results * Phosphatidylethanol Confirmation (10/27/2023 10:33 AM RAILROAD CAR CHECKER) PEth 16:0/18:1 (POPEth) by LC-MS/MS <20 Cutoff: 10 ng/mL 10/29/2023 8:22 PM RAILROAD CAR CHECKER [facility] Comment: Testing performed at a x2 dilution; [...] <10 Cutoff: 10 ng/mL 10/29/2023 8:22 PM [facility] Comment: PEth 16:0/18:2 (PLPEth) Reference ranges are not well established PEth Interpretation Negative. 10/29 8:22 PM [facility] Comment: ----ADDITIONAL INFORMATION---- This report is intended for use in clinical monitoring and management of patients. ??It is not intended for use in employment-related testing. This test was developed and its performance characteristics determined by [facility] in a manner consistent with CLIA requirements. This test has not been cleared or approved by the U.S. Food and Drug Administration. Blood (Blood, Venous) 10/27/2023 10:33 AM RAILROAD CAR CHECKER 10/27/2023 9:57 PM RAILROAD CAR CHECKER Romana Diane M.D., Ph.D. LAB BLO OD ADD-ON [facility] SUPPORT [place] [address] [place] [address] [facility] [address] [place] [address] [place] [address] * (ABNORMAL) Basic Metabolic Panel (10/27/2023 10:33 AM RAILROAD CAR CHECKER) Pathologist [facility] Potassium, P 3.6 3.6 - 5.2 mmol/L 10/27/2023 10:57 AM RAILROAD CAR CHECKER CNFL Sodium, P 125(L) 135 - 145 mmol/L 10/27/2023 10:57 AM RAILROAD CAR CHECKER CNFL Chloride, P 92(L) 98 - 107 mmol/L 10/27/2023 10:57 AM RAILROAD CAR CHECKER CNFL Bicarbonate, P 21(L) 22 - 29 mmol/L 10/27/2023 10:57 AM RAILROAD CAR CHECKER CNFL Anion Gap, P 12 7 - 15 10/27/2023 10:57 AM RAILROAD CAR CHECKER CNFL BUN (Blood Urea Nitrogen), P 10 6 - 21 mg/dL 10/27/2023 10:57 AM RAILROAD CAR CHECKER CNFL Creatinine 0.47(L) 0.59 - 1.04 mg/dL 10/27/2023 10:57 AM RAILROAD CAR CHECKER CNFL Estimated GFR (eGFR) >90 >=60 mL/min/BSA 10/27/2023 10:57 AM RAILROAD CAR CHECKER CNFL Comment: Estimated GFR calculated using the 2020 CKD_EPI creatinine equation. Calcium, Total, P 8.4(L) 8.8 - 10.2 mg/dL 10/27/2023 10:57 AM RAILROAD CAR CHECKER CNFL Glucose, P 93 70 - 140 mg/dL 10/27/2023 10:57 AM RAILROAD CAR CHECKER CNFL Blood (Blood, Venous) 10/27/2023 10:33 AM RAILROAD CAR CHECKER 10/27/2023 10:36 AM RAILROAD CAR CHECKER Katja Umana M.D. LAB BLOOD ADD-ON [facility] [address] [place] [address], [facility] CNFL [facility] in [address] [address] documented in this encounter Visit Diagnoses Diagnosis Alcoholic Cirrhosis Of Liver With Ascites (HCC) Alcohol Moderate Or Severe Use Disorder (Dependence) Uncomplicated (HCC) documented in this encounter Additional Health Concerns Assessment Noted Time PHQ-9 Depression Total Score: 3 10/20/19 24 7:30 AM RAILROAD CAR CHECKER documented as of this encounter
--- OUTSIDE RECORDS SUMMARY | 2023-12-23 14:22 | XMS_ITS | Encounter Summary ---
Author Name Unknown Organization [facility] Address [address] [place] [address] Care Team Providers Care Power Technician Name Role Phone Unavailable Primary Care Provider Unavailabl e Reason for Referral * Outpatient (Routine) - Closed Specialty Diagnoses / Procedures Referred By Delgadoac t Referred To Contact Diagnoses Ascites Procedures US Paracentesis with Imaging Guidance Felipe Morales M.D. 200 [place] [address] [facility] Referral ID Status Reason Start Date Expiration Date Visits Re quested Visits Authorized [id number] Closed 10/11/2023 10/10/2024 1 1 E FLEX DEVELOPER Reason for Visit * Outpatient (Routine) - Closed Specialty Diagnoses / Procedures Referred By Dotty oakes Referred To Contact Diagnoses Ascites Procedures US Paracentesis with Imaging Guidance Felipe Morales M.D. [address] [place] [address] [facility] Referral ID Status Reason Start Date Expiration Date Visits Re quested Visits Authorized [id number] Closed 10/11/2023 10/10/2024 1 1 Encounter Details Date Type Department Care Team (Latest Contact Info) Description 11/05/2023 9:29 AM ADOBE FLEX DEVELOPER - 11/05/2023 12:20 PM ADOBE FLEX DEVELOPER Hospital Encounter Department of Radiology, [facility], in [place], [place] [address] [place] [address] Felipe Morales M.D. [address] [place] [phone] Ascites Discharge Disposition: Home or Self Care Social History Tobacco Use Types Packs/Day Years Used Date Smoking Tobacco: Every Day Cigarettes 0.5 40 Smokeless Tobacco: Never Alcohol Use Standard Drinks/Week Comments Not Currently 0 (1 standard drink = 0.6 oz pur e alcohol) [facility] Utilities Answer Date Recorded In the past 12 months has th e [employer], gas, oil, or water company threatened to [...] your living situation today? I have a [facility] place to live 10/15/2023 Sex and Gender Information Value Date Recorded Sex Assigned at Female 10/06/2023 10:50 AM ADOBE FLEX DEVELOPER Gender Identity Female 10/06/2023 10:50 AM ADOBE FLEX DEVELOPER Sexual Orientation Straight 10/06/2023 10 :50 AM ADOBE FLEX DEVELOPER documented as of this encounter Last Filed Vital Signs Vital Sign Reading Time Taken Comments Blood Pressure 106/56 11/05/2023 11:17 AM ADOBE FLEX DEVELOPER Pulse 88 11/05/2023 11:17 AM ADOBE FLEX DEVELOPER Temperature - - Respiratory Rate - - Oxygen Saturation 100% 11/05/2023 11:17 AM ADOBE FLEX DEVELOPER Inhaled Oxygen Concentration - - Weight - - Height - - Body Mass Index - - documented in this encounter Discharge Instructions * Attachments The following attachments cannot be sent through Care Everywhere. * Paracentesis (Uruguayan) documented in this encounter Medications at Time of Discharge Medication Sig Dispensed Refills Start Date End Date acetaminophen 650 mg/20.3 mL suspension Take 650 mg by mouth every 4 (four) hours as needed (for pain). No more than 2000 mg in 24 hours 0 11/08/2014 nicotine polacrilex (NICORETTE) 2 mg lozengeIndications:Ray estrella [...] of Radiology, [facility], in [place], [place] [address] [place] [phone] Katja Umana M.D. [address] [place] [phone] 01/19/2024 10:00 AM CDT Telemedicine Department of Nutrition and Diabetes Education in [place], [place] [address] [place] [phone] Katja Umana M.D. [address] [place] [phone] Taty Cunningham M.S., RDN, LD [address] [place] [phone] documented as of this encounter Procedures Procedure Name Priority Date/Time Associated Diagnosis Comments US PARACENTESIS WITH IMAGING GUIDANCE RAD - Routine (most inpatients and all outpatients) 11/05/2023 11:25 AM ADOBE FLEX DEVELOPER Ascites BACTERIAL CULTURE, AEROBIC + SUSC Timed 11/05/2023 10:07 AM ADOBE FLEX DEVELOPER Ascites CELL COUNT AND DIFFERENTIAL, BF Timed 11/05/2023 10:07 AM ADOBE FLEX DEVELOPER Ascites documented in this encounter Results * US Paracentesis with Imaging Guidance (11/05/2023 11:25 AM ADOBE FLEX DEVELOPER) Anatomical Region Laterality Modality Abdomen, Ultrasound RST LOS, Ultrasound ARZ LOS, Procedure FLA LOS, Abdominal FLA LOS, Procedural, Procedural NWWI LOS N/A Ultrasound Impressions 11/05/2023 11:28 AM ADOBE FLEX DEVELOPER Ultrasound-guided diagnostic and therapeutic paracentesis. NR Narrative 11/05/2023 11:28 AM ADOBE FLEX DEVELOPER EXAM: US PARACENTESIS WITH IMAGING GUIDANCE PRE-PROCEDURE: [...] lower quadrant peritoneal space. Needle size: 5 Jordanian centesis catheter. Volume aspirated: 6.8 liters aspirated, a sample of which was sent to the laboratory for analysis. Other: The patient was administered 50 grams IV albumin during the procedure. Appearance of aspirate: Clear yellow fluid. Complications: None. Blood loss: None. Purpose: Diagnostic and therapeutic paracentesis. PATIENT INSTRUCTIONS: Patient may be dismissed from the Radiology Department when dismissal criteria met. POST-PROCEDURE DIAGNOSIS: Ascites. Procedure Note Ning Crum M.D. - 11/05/2023 EXAM: US PARACENTESIS WITH IMAGING GUIDANCE PRE-PROCEDURE: [...] lower quadrant peritoneal space. Needle size: 5 Jordanian centesis catheter. Volume aspirated: 6.8 liters aspirated, a sample of which was sent to thelaboratory for analysis. Other: The patient was administered 50 grams IV albumin during theprocedure. Appearance of aspirate: Clear yellow fluid. Complications: None. Blood loss: None. Purpose: Diagnostic and therapeutic paracentesis. PATIENT INSTRUCTIONS: Patient may be dismissed from the RadiologyDepartment when dismissal criteria met. POST-PROCEDURE DIAGNOSIS: Ascites. IMPRESSION: Ultrasound-guided diagnostic and therapeutic paracentesis. NR Felipe Morales M.D. IMSally US PROCEDURES * Cell Count and Differential, Body Fluid (11/05/2023 10:07 AM ADOBE FLEX DEVELOPER) Fluid Type Peritoneal /Paracente sis 11/05/2023 11:13 AM ADOBE FLEX DEVELOPER DHPM Gross Appearance Serous 11/05/19 24 11:13 AM ADOBE FLEX DEVELOPER DHPM Total Nucleated Cells 282 /mcL 11/05/2023 11:13 AM ADOBE FLEX DEVELOPER DHPM Comment: ----REFERENCE VALUE---- Synovial: <150 /mcL Peritoneal: <500 /mcL Pleural: <500 /mcL Pericardial: <500 /mcL ----ADDITIONAL INFORMATION---- This test has been modified from the medication specialist's instructions. Its performance characteristics were determined by [facility] in a manner consistent with CLIA requirements. This test has not been cleared or approved by the U.S. Food and Drug Administration. Neutrophils 3 % 11/05/2023 12:54 PM ADOBE FLEX DEVELOPER DHPM Comment: ----REFERENCE VALUE---- Synovial: <25% Peritoneal: <25% Pleural: <25% Pericardial: <25% Lymphocytes 26 Synovial <75% % 11/05/2023 12:54 PM ADOBE FLEX DEVELOPER DHPM Monocytes/Macropha ges 64 Synovial <70% % 11/05/2023 12:54 PM ADOBE FLEX DEVELOPER DHPM Other Cells 7 % 11/05/2023 12:54 PM ADOBE FLEX DEVELOPER DHPM Comment: ----REFERENCE VALUE---- The reference range and other method performance specifications have not been established for this bodyfluid. The test result must be integrated into the clinical context for interpretation. Other Cells Are: See Comment 11/05/2023 12:54 PM ADOBE FLEX DEVELOPER DHPM Comment:Mesothelial cells Comment See Comment 11/05/2023 12:54 PM ADOBE FLEX DEVELOPER DHPM Comment:No blasts or maligna nt cells seen.Erythrophagocytosis present. Reviewed by: Jose 11/05/2023 12:54 PM ADOBE FLEX DEVELOPER DHPM Fluid (Peritoneal Fluid) 11/05/2023 10:07 AM ADOBE FLEX DEVELOPER Narrative Authorizing Provider Result Enio Morales M.D. LAB BODY FLUIDS AND STOOLS ORDERABLES Performing Organization Address City/[facility]/ZIP Co de Phone Number [facility] [address] [place] [address], [facility] [address] [place] [address] * Bacterial Culture, Aerobic + Susceptibility (11/05/2023 10:07 AM ADOBE FLEX DEVELOPER) Bacterial Culture, Aerobic + Susc No growth after 5 days of incubation. 2023 7:33 AM ADOBE FLEX DEVELOPER DTL Fluid (Peritoneal Fluid) 11/05/2023 10:07 AM ADOBE FLEX DEVELOPER Narrative [facility] - 2023 7:33 AM ADOBE FLEX DEVELOPER Bacterial Culture: Received Bactec aerobic and Bactec anaerobic bottles Felipe Morales M.D. LAB MICROBIOLOGY - GENERAL ORDERABLES Performing Organization Address [facility] Co de Phone Number [facility] [address] [place] [address], [facility] [address] [place] [address] documented in this encounter Visit Diagnoses Diagnosis Ascites documented in this encounter Administered Medications Inactive Administered Medications - up to 3 most recent administrations Medication Order MAR Action Action Date Dose Rate Site albumin human 25 % injection 25 g 25 g, intravenous, Once, On Wed11/05/23 at 1100, For 1 dose, If no infusion rate specified: Administer the 25% solution at 100 mL/hr New Bag 11/05/2023 10:39 AM ADOBE FLEX DEVELOPER 25 g albumin human 25 % injection 25 g 25 g, intravenous, Once, On Wed11/05/23 at 1130, For 1 dose, If no infusion rate specified: Administer the 25% solution at 100 mL/hr New Bag 11/05/2023 11:20 AM ADOBE FLEX DEVELOPER 25 g lidocaine 10 mg/mL (1 %) injection (XYLOCAINE) As needed, Starting on Wed11/05/23 at 1023, Intra-Op Given 11/05/2023 10:23 AM ADOBE FLEX DEVELOPER 10 mL Abdominal Tissue documented in this encounter Active and Recently Administered Medications Times are shown in ADOBE FLEX DEVELOPER. Scheduled Medication Order 11/03/2023 11/04/2023 11/05/2023 albumin human 25 % injection 25 g (COMPLETED) 25 g, intravenous, Once, On Wed11/05/23 at 1100, For 1 dose, If no infusion rate specified: Administer the 25% solution at 100 mL/hr 1039 (New Bag - Prov ider: Poppy Graves R.N.)1105 (Stopped - Provider: Poppy Graves R.N.) albumin human 25 % injection 25 g (COMPLETED) 25 g, intravenous, Once, On Wed11/05/23 at 1130, For 1 dose, If no infusion rate specified: Administer the 25% solution at 100 mL/hr 1120 (New Bag - Prov ider: Poppy Graves R.N.) PRN Medication Order 11/03/2023 11/04/2023 11/05/2023 lidocaine 10 mg/mL (1 %) injection (XYLOCAINE) (COMPLETED) As needed, Starting on Wed11/05/23 at 1023, Intra-Op 1023 (Given - Provid er: Ning Crum M.D.) documented in this encounter Additional Health Concerns Assessment Noted Time PHQ-9 Depression Total Score: 3 10/20/19 24 7:30 AM ADOBE FLEX DEVELOPER documented as of this encounter
--- OUTSIDE RECORDS SUMMARY | 2023-12-23 14:22 | XMS_ITS | Encounter Summary ---
Author Name Unknown Organization [facility] Address [address] [place] [address] Care Team Providers Care Hose Handler Name Role Phone Unavailable Primary Care Provider Unavailabl e Encounter Details Date Type Department Care Team (Latest Contact Info) Description 10/20/2023 1:00 PM ALLOCATION ANALYST - 10/20/2023 11:59 PM ALLOCATION ANALYST Hospital Encounter Department of Laboratory Medicine in [address] [phone] Katja Umana M.D. [address] [place] [address] Ascites Discharge Disposition: Home or Self Care Social History Tobacco Use Types Packs/Day Years Used Date Smoking Tobacco: Every Day Cigarettes 0.5 40 Smokeless Tobacco: Never Alcohol Use Standard Drinks/Week Comments Not Currently 0 (1 standard drink = 0.6 oz pur e alcohol) [facility] Utilities Answer Date Recorded In the past 12 months has [employer], gas, oil, or water [employer] threatened to shut off services in your [...] Date Recorded Employment status Working with temporary [email or web address] 10/15/2023 Housing Stability Answer Date Recorded What is your living situation today? I have a [facility] place to live 10/15/2023 Sex and Gender Information Value Date Recorded Sex Assigned at Female 10/06/2023 10:50 AM ALLOCATION ANALYST Gender Identity Female 10/06/2023 10:50 AM ALLOCATION ANALYST Sexual Orientation Straight 10/06/2023 10 :50 AM ALLOCATION ANALYST documented as of this encounter Medications at Time of Discharge Medication Sig Dispensed Refills Start Date End Date acetaminophen 650 mg/20.3 mL suspension Take 650 mg by mouth every 4 (four) hours as needed (for pain). No more than 2000 mg in 24 hours 0 11/08/2014 Klor-Con/EF 25 mEq disintegrating tablet Take 25 mEq by mouth 3 (three) times a day. 0 09/21/2023 10/24/2023 spironolactone (ALDACTONE) 50 mg tablet Take 1 tablet (50 mg total) by mouth daily. 30 tablet 0 10/15/2023 10/24/2023 documented as of this encounter Plan of Treatment Upcoming Encounters Date Type Department Care Team (Late st Contact Info) Description 12/30/2023 3:15 PM CDT Appointment Department of Radiology, [facility], in [place], [place] [address] [place] [address] Katja Umana M.D. [address] [place] [phone] 01/19/2024 10:00 AM CDT Telemedicine Department of Nutrition and Diabetes Education in [place], [place] [address] [place] [address] Katja Umana M.D. [address] [place] [address] Taty Cunningham M.S., RDN, LD [address] [place] [phone] documented as of this encounter Procedures Procedure Name Priority Date/Time Associated Diagnosis Comments BASIC METABOLIC PANEL, S/P Routine 10/20/2023 1:08 PM ALLOCATION ANALYST Ascites documented in this encounter Results * (ABNORMAL) Basic Metabolic Panel (10/20/2023 1:08 PM ALLOCATION ANALYST) Potassium, P 4.5 3.6 - 5.2 mmol/L 10/20/2023 1:30 PM ALLOCATION ANALYST CNFL Sodium, P 126(L) 135 - 145 mmol/L 10/20/2023 1:30 PM ALLOCATION ANALYST CNFL Chloride, P 97(L) 98 - 107 mmol/L 10/20/2023 1:30 PM ALLOCATION ANALYST CNFL Bicarbonate, P 23 22 - 29 mmol/L 10/20/2023 1:30 PM ALLOCATION ANALYST CNFL Anion Gap, P 6(L) 7 - 15 10/20/2023 1:30 PM ALLOCATION ANALYST CNFL BUN (Blood Urea Nitrogen), P 7 6 - 21 mg/dL 10/20/2023 1:30 PM ALLOCATION ANALYST CNFL Creatinine 0.37(L) 0.59 - 1.04 mg/dL 10/20/2023 1:30 PM ALLOCATION ANALYST CNFL Estimated GFR (eGFR) >90 >=60 mL/min/BSA 10/20/2023 1:30 PM ALLOCATION ANALYST CNFL Comment: Estimated GFR calculated using the 2020 CKD_EPI creatinine equation. Calcium, Total, P 8.2(L) 8.8 - 10.2 mg/dL 10/20/2023 1:30 PM ALLOCATION ANALYST CNFL Glucose, P 112 70 - 140 mg/dL 10/20/2023 1:30 PM ALLOCATION ANALYST CNFL Blood (Blood, Venous) 10/20/2023 1:08 PM ALLOCATION ANALYST 10/20/2023 1:09 PM ALLOCATION ANALYST Katja Umana M.D. LAB BLOOD ADD-ON [facility] [address] [place] [address], [facility] CNFL [facility] [place] [address] documented in this encounter Visit Diagnoses Diagnosis Ascites documented in this encounter Additional Health Concerns Assessment Noted Time PHQ-9 Depression Total Score: 3 10/20/19 24 7:30 AM ALLOCATION ANALYST documented as of this encounter
--- OUTSIDE RECORDS SUMMARY | 2023-12-23 14:22 | XMS_ITS | Encounter Summary ---
Author Name Unknown Organization [facility] Address [address] [place] [id number] Care Team Providers Care Clinic Charge Nurse Name Role Phone Unavailable Primary Care Provider Unavailabl e Reason for Referral * Behavioral Health (Routine) - Closed Specialty Diagnoses / Procedures Referred By Contac t Referred To Contact Psychiatry / Psychiatry and Psychology Diagnoses Alcoholic Cirrhosis Of Liver With Ascites (HCC) Katja Umana M.D. [address] [place] [phone] [facility] Referral ID Status Reason Start Date Expiration Date Visits Re quested Visits Authorized [id number] Closed 10/15/2023 04/15/2025 1 1 ING SUPERVISOR * Outpatient (Routine) - Authorized Specialty Diagnoses / Procedures Referred By Contac t Referred To Contact Diagnoses Alcoholic Cirrhosis Of Liver With Ascites (HCC) Esophageal Varices Without Bleeding (HCC) Procedures EGD (EsophagoGastroDuodenoscopy) Restricted Katja Umana M.D. 200 [place] [phone] [facility] Referral ID Status Reason Start Date Expiration Date V isits Requested Visits Authorized [id number] Authorized 10/15/2023 10/14/2024 1 1 ING SUPERVISOR * Outpatient (Routine) - Closed Specialty Diagnoses / Procedures Referred By Contac t Referred To Contact Preventive Medicine Diagnoses Alcoholic Cirrhosis Of Liver With Ascites (HCC) Katja Umana M.D. [address] [place] [phone] [facility] Referral ID Status Reason Start Date Expiration Date Visits Re quested Visits Authorized [id number] Closed 10/15/2023 04/15/2025 1 1 ING SUPERVISOR Reason for Visit * Outpatient (Routine) - Closed Specialty Diagnoses / Procedures Referred By Contact Referred To Contact Gastroenterology and Hepatology Katja Umana M.D. [address] [place] [phone] Katja Umana M.D. [address] [place] [phone] Referral ID Status Reason Start Date Expiration Date Visits Re quested Visits Authorized [id number] Closed 10/13/2023 04/13/2025 1 1 Encounter Details Date Type Department Care Team (Latest Contact Info) Description 10/15/2023 10:40 AM RIGGING SUPERVISOR Telemedicine Division of Gastroenterology in [place], [place] [address] [place] [phone] Katja Umana M.D. [address] [place] [phone] Ascites (Primary Dx); Alcoholic Cirrhosis Of Liver With Ascites (HCC); Esophageal Varices Without Bleeding (HCC) Social History Tobacco Use Types Packs/Day Years Used Date Smoking Tobacco: Every Day Cigarettes 0.5 40 Smokeless Tobacco: Never Alcohol Use Standard Drinks/Week Comments Not Currently 0 (1 standard drink = 0.6 oz pur e alcohol) [facility] Utilities Answer Date Recorded In the past 12 months has [place], gas, oil, or water [employer] threatened to shut off services in your home? No 10/15/2023 Exercise Vital Sign Answer Date Recorde d [...] things needed for daily living? No 10/15/2023 Nutrition Answer Date Recorded Nutrition: EVOO Fat Source Unknown 10/15 On average, how many serving s of fruits and vegetables do you eat per day (serving size is equal to 1 cup or approximately the size of a tennis ball)? 0-2 10/15/2023 Dental Answer Date Recorded Dental: Regular Dentist Yes 10/15/19 Employment Answer Date Recorded Employment status Working with temporary [email or web address] 10/15/2023 Housing Stability Answer Date Recorded What is your living situation today? I have a [facility] place to live 10/15/2023 Sex and Gender Information Value Date Recorded Sex Assigned at Female 10/06/2023 10:50 AM RIGGING SUPERVISOR Gender Identity Female 10/06/2023 10:50 AM RIGGING SUPERVISOR Sexual Orientation Straight 10/06/2023 10 :50 AM RIGGING SUPERVISOR documented as of this encounter Progress Notes * Katja Umana M.D. - 10/15/2023 10:40 AM CST GASTROENTEROLOGY & HEPATOBILIARY CLINIC FOLLOW-UP NOTE Patient Name: Monique Redmond Date of Service: 10/15/2023 SUBJECTIVE This patient was virtually interviewed via real time video in the patient's home by Katja Umana M.D. at [facility]. The history and findings below are based on review of available medicalrecords and a virtual conversation with the patient. CHIEF COMPLAINT/REASON FOR VISIT Follow-up test results HISTORY OF PRESENT ILLNESS See initial consultation note on 10/06/2023 for further details. In brief, Ms. Monique Redmond is a 62 year old female who was seen in Hepatobiliary Clinic for evaluation of recent diagnosis of decompensated cirrhosis attributed to alcohol use, with complication of ascites. 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 OBJECTIVE VITAL SIGNS Not performed. PHYSICAL EXAMINATION Not performed. Pertinent Labs and Imaging Reviewed with notable results including: NEGIN 1:320, speckled pattern SMA negative AMA negative HAV IgG positive HBsAb negative HBsAg negative HBcAb negative HCV Ab negative CXR (10/06/2023) IMPRESSION: Shallow inspiration. New focal predominantly linear opacity in the left lower lung since 02/05/2015. This is most likely due to atelectasis although a focal area of consolidation cannot be completelyexcluded. New blunting of the posterior costophrenic angles by fluid or thickened pleura. Otherwise, no significant change. Tiny calcified granuloma right upper lung laterally with calcified mediastinal nodes. Mild bilateral apical scarring. TTE (10/07/2023) Final Impressions 1. Hyperdynamic state, likely due to the liver disease. 2. Moderate intrapulmonary shunt. 3. Normal left ventricular chamber size, no regional wall motion abnormalities, calculated 2-D biplane volumetric ejection fraction of 68%. 4. Abnormal left ventricular geometry with concentric left ventricular hypertrophy, elevated filling pressure. 5. Normal right ventricular chamber size, normal systolic function, estimated right ventricular systolic pressure 28 mmHg (right atrial pressure of 5 mmHg). 6. Normal (non-notched) Doppler flow pattern through the right ventricular outflow tract consistentwith a normal or near-normal pulmonary vascular resistance. 7. Sclerotic aortic valve. 8. No pericardial effusion. Pertinent Diagnostic Studies and Procedures Reviewed with notable results including: EGD (10/08/2023) Post-op Diagnoses: 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 - Mild portal hypertensive gastropathy. - Normal examined duodenum. - No specimens collected. US Paracentesis (10/08/2023) with 7.1 L removed TNC 187 Total protein 0.9 Albumin 0.5 MELD 3.0: 20 at 10/06/2023 12:17 PM MELD-Na: 19 at 10/06/2023 12:17 PM Calculated from: Serum Creatinine: 0.48 mg/dL (Using min of 1 mg/dL) at 10/06/2023 12:17 PM Serum Sodium: 134 mmol/L at 10/06/2023 12:17 PM Total Bilirubin: 3.0 mg/dL at 10/06/2023 12:17 PM Serum Albumin: 2.9 g/dL at 10/06/2023 12:17 PM INR(ratio): 1.8 at 10/06/2023 12:17 PM Age at listing (hypothetical): 62 years Sex: Female at 10/06/2023 12:17 PM ASSESSMENT / PLAN #1 Decompensated cirrhosis, attributed to alcohol (MELD 3.0 score of 20) #2 High-risk alcohol consumption Mrs. Redmond has a recent diagnosis of decompensated cirrhosis attributed to high-risk alcohol consumption. Additional testing shows elevated NEGIN in speckled pattern, with negative smooth muscle andAMA. She has negative hepatitis B and C serologies, with evidence of immunity to hepatitis A. Her MELD 3.0 score is 20, and I discussed that it would be reasonable to pursue evaluation for liver transplantation. I counseled on strict abstinence of alcohol to prevent further progression of liver disease. We will start with consultation with Addiction Psychiatry to assess PACT score and eligibility for addictions protocol. I discussed this with Mrs. Redmond and she was in agreement. #3 Ascites, requiring serial paracentesis #4 Hypokalemia, currently on oral supplementation She had new development of ascites starting in 08/2023, requiring 2 paracenteses thus far with 7-8 L removed each time. Last paracentesis was performed on 10/08. Although serum albumin was obtained 2 days prior, calculated SAAG is >1.1. No evidence of SBP at this time. She is currently on KCl 75 mEq daily for supplementation. She has not been on oral diuretics. The etiology of her persistent hypokalemia is unclear. We discussed that we may gently initiate oral diuretics with the plan to start with spironolactone 50 mg daily. I discussed the recommendation to reduce her KCl to 50 mEq daily. We will recheck a BMP in 5 days. I have sent an order to the [facility]. She has met with our HB Nurse for counseling on cirrhosis management including sodium restricted diet to <2 grams/day. #5 Esophageal varix with high-risk stigmata, status post banding (10/08/2023) EGD performed on 10/08/2023 was notable for a large esophageal varix with red Dacia osorio. This was banded. She has mild portal hypertensive gastropathy. She denies GI bleeding since her procedure. We discussed recommendation to repeat EGD in 4-6 weeks for repeat banding if indicated. Given current decompensation, she will need a continued endoscopic surveillance program every year. #6 Dyspnea, likely due to reduced chest wall compliance CXR showed shallow inspiration, likely in the setting of atelectasis. There was some blunting of the posterior costophrenic angles without suggestion of hepatic hydrothorax. Echocardiogram was notable for a moderate intrapulmonary shunt. EF 60%. The RV appeared normal in size and function, with estimated RVSP 28 mmHg. #7 At risk for hepatic encephalopathy She is currently taking MiraLax with 5-6 stools daily. She does currently report fatigue and daytime sleepiness, however without overt disturbance or confusion. If mental status worsens then we may also switch to lactulose for further optimization. 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 AFP normal. She will need ongoing surveillance with US and AFP every 6 months. #9 Current tobacco use We discussed recommendation for tobacco cessation. She reports cutting back to <0.5 ppd, and with limited desire to continue. We will also offer a referral to the Nicotine Dependence clinic for further counseling. #10 History of colon polyps Her last colonoscopy was performed in 2019 in [place]. I am not able to see this report. She is recommended to follow-up with her PCP for completing surveillance colonoscopy. If she is not able tocomplete this locally, then we can arrange for this to be done at [place]. #11 Health maintenance She has evidence of immunity to hepatitis A, however no current immunity to hepatitis B. I have provided a referral to our immunization Clinic for completion of the vaccination series. All questions were answered. BILLIN minutes spent in a combination of the following activities: visit with the patient; reviewing records; interpreting test results; discussing plans with the patient and/or family; discussing and coordinating care with other team members and communicating / reviewing care plan with local provider(s). Katja Umana M.D. 10/15/2023 ING SUPERVISOR documented in this encounter Plan of Treatment Upcoming Encounters Date Type Department Care Team (Late st Contact Info) Description 12/30/2023 3:15 PM CDT Appointment Department of Radiology, [facility], in [place], [place] [address] [place] [phone] Katja Umana M.D. [address] [place] [phone] 01/19/2024 10:00 AM CDT Telemedicine Department of Nutrition and Diabetes Education in [place], [place] [address] [place] [phone] Katja Umana M.D. [address] [place] [phone] Taty Cunningham M.S., RDN, LD [address] [place] [phone] Scheduled Orders Name Type Priority Associated Diagnoses Orde r Schedule EGD (EsophagoGastroDuodenosco py) Restricted GI Routine Alcoholic Cirrhosis Of Liver With Ascites (HCC) Esophageal Varices Without Bleeding (HCC) Expected: 11/13/2023 (Approximate), Expires: 01/12/2025 Scheduled Referrals Name Type Priority Associated Diagnoses Order Schedule Preventive Medicine - Immunization consult (clinic) Outpatient Referral Routine Alcoholic Cirrhosis Of Liver With Ascites (HCC) Expected: 10/15/2023 (Approximate), Expires: 01/12/2025 Psychiatry and Psychology - Addiction / substance abuse consult (clinic) Outpatient Referral Routine Alcoholic Cirrhosis Of Liver With Ascites (HCC) Expected: 10/15/2023 (Approximate), Expires: 01/12/2025 documented as of this encounter Results * (ABNORMAL) Basic Metabolic Panel (10/20/2023 1:08 PM RIGGING SUPERVISOR) Pathologist [facility] Potassium, P 4.5 3.6 - 5.2 mmol/L 10/20/2023 1:30 PM RIGGING SUPERVISOR CNFL Sodium, P 126(L) 135 - 145 mmol/L 10/20/2023 1:30 PM RIGGING SUPERVISOR CNFL Chloride, P 97(L) 98 - 107 mmol/L 10/20/2023 1:30 PM RIGGING SUPERVISOR CNFL Bicarbonate, P 23 22 - 29 mmol/L 10/20/2023 1:30 PM RIGGING SUPERVISOR CNFL Anion Gap, P 6(L) 7 - 15 10/20/2023 1:30 PM RIGGING SUPERVISOR CNFL BUN (Blood Urea Nitrogen), P 7 6 - 21 mg/dL 10/20/2023 1:30 PM RIGGING SUPERVISOR CNFL Creatinine 0.37(L) 0.59 - 1.04 mg/dL 10/20/2023 1:30 PM RIGGING SUPERVISOR CNFL Estimated GFR (eGFR) >90 >=60 mL/min/BSA 10/20/2023 1:30 PM RIGGING SUPERVISOR CNFL Comment: Estimated GFR calculated using the 2020 CKD_EPI creatinine equation. Calcium, Total, P 8.2(L) 8.8 - 10.2 mg/dL 10/20/2023 1:30 PM RIGGING SUPERVISOR CNFL Glucose, P 112 70 - 140 mg/dL 10/20/2023 1:30 PM RIGGING SUPERVISOR CNFL Blood (Blood, Venous) 10/20/2023 1:08 PM RIGGING SUPERVISOR 10/20/2023 1:09 PM RIGGING SUPERVISOR Katja Umana M.D. LAB BLOOD ADD-ON [facility] [address] [place] [phone], [facility] CNFL [facility] in [address] [address] documented in this encounter Visit Diagnoses Diagnosis Ascites- Primary Alcoholic Cirrhosis Of Liver With Ascites (HCC) Esophageal Varices Without Bleeding (HCC) documented in this encounter
--- OUTSIDE RECORDS SUMMARY | 2023-12-23 14:22 | XMS_ITS | Encounter Summary ---
Author Name Unknown Organization [facility] Address [address] [place] [address] Care Team Providers Care Buzzsaw Operator Name Role Phone Unavailable Primary Care Provider Unavailabl e Encounter Details Date Type Department Care Team (Latest Contact Info) Description 10/24/2023 Clinical Communication Division of Gastroenterology in [place], [place] [address] [place] [phone] Katja Aguilera M.D. [address] [place] [phone] Social History Tobacco Use Types Packs/Day Years [...] Sex Assigned at Female 10/06/2023 10:50 AM STRIPPER APPRENTICE Gender Identity Female 10/06/2023 10:50 AM STRIPPER APPRENTICE Sexual Orientation Straight 10/06/2023 10 :50 AM STRIPPER APPRENTICE documented as of this encounter Progress Notes * Katja Aguilera M.D. - 10/24/2023 11:12 AM CST Regarding her ascites management, Mrs. Redmond was started on low dose diuretic regimen with spironolactone 50 mg. She was previously on potassium chloride supplementation with up to 75 mEq daily that was ordered by her local provider. Given initiation of spironolactone, we decreased KCl to 50 mEq. Repeat metabolic panel shows stable potassium 4.5. She does have hyponatremia 126 and creatinine 0.37. Given stability, we will increase her oral diuretic regimen. We will increase to spironolactone 100mg daily and start furosemide 40 mg daily. I have advised that she discontinue the KCl supplementation. We will monitor labs closely, with plan to check labs in 2-3 days. I have sent an order to her [facility] Rajiv Taylor. She also reports ongoing difficulty with sleep, despite taking melatonin 10 mg nig htly. We will initiate trazodone at low dose, with 50 mg nightly. She was in agreement with the plan. PPER APPRENTICE documented in this encounter Miscellaneous Notes * Addendum Note - Katja Aguilera M.D. - 10/24/2023 11:17 AM CSTAddended by: KATJA AGUILERA on: 10/24/2023 11:17 AM Modules accepted: Orders PPER APPRENTICE documented in this encounter Plan of Treatment Upcoming Encounters Date Type Department Care Team (Late st Contact Info) Description 12/30/2023 3:15 PM CDT Appointment Department of Radiology, [facility], in [place], [place] [address] [place] [phone] Katja Aguilera M.D. [address] [place] [phone] 01/19/2024 10:00 AM CDT Telemedicine Department of Nutrition and Diabetes Education in [place], [place] [address] [place] [phone] Katja Aguilera M.D. [address] [place] [phone] Taty Cunningham M.S., RDN, LD [address] [place] [phone] documented as of this encounter Results * (ABNORMAL) Basic Metabolic Panel (10/27/2023 10:33 AM STRIPPER APPRENTICE) Potassium, P 3.6 3.6 - 5.2 mmol/L 10/27/2023 10:57 AM STRIPPER APPRENTICE CNFL Sodium, P 125(L) 135 - 145 mmol/L 10/27/2023 10:57 AM STRIPPER APPRENTICE CNFL Chloride, P 92(L) 98 - 107 mmol/L 10/27/2023 10:57 AM STRIPPER APPRENTICE CNFL Bicarbonate, P 21(L) 22 - 29 mmol/L 10/27/2023 10:57 AM STRIPPER APPRENTICE CNFL Anion Gap, P 12 7 - 15 10/27/2023 10:57 AM STRIPPER APPRENTICE CNFL BUN (Blood Urea Nitrogen), P 10 6 - 21 mg/dL 10/27/2023 10:57 AM STRIPPER APPRENTICE CNFL Creatinine 0.47(L) 0.59 - 1.04 mg/dL 10/27/2023 10:57 AM STRIPPER APPRENTICE CNFL Estimated GFR (eGFR) >90 >=60 mL/min/BSA 10/27/2023 10:57 AM STRIPPER APPRENTICE CNFL Comment: Estimated GFR calculated using the 2020 CKD_EPI creatinine equation. Calcium, Total, P 8.4(L) 8.8 - 10.2 mg/dL 10/27/2023 10:57 AM STRIPPER APPRENTICE CNFL Glucose, P 93 70 - 140 mg/dL 10/27/2023 10:57 AM STRIPPER APPRENTICE CNFL Blood (Blood, Venous) 10/27/2023 10:33 AM STRIPPER APPRENTICE 10/27/2023 10:36 AM STRIPPER APPRENTICE Katja Aguilera M.D. LAB BLOOD ADD-ON [facility] [address] [place] [phone], [facility] CNFL [facility] in [address] [address] documented in this encounter Visit Diagnoses Diagnosis Alcoholic Cirrhosis Of Liver With Ascites (HCC)- Primary documented in this encounter Additional Health Concerns Assessment Noted Time PHQ-9 Depression Total Score: 3 10/20/19 24 7:30 AM STRIPPER APPRENTICE documented as of this encounter
--- OUTSIDE RECORDS SUMMARY | 2023-12-23 14:22 | XMS_ITS | Encounter Summary ---
Author Name Unknown Organization [facility] Address [address] [place] [address] Care Team Providers Care Electrician Elevator Maintenance Name Role Phone Unavailable Primary Care Provider Unavailabl e Encounter Details Date Type Department Care Team (Latest Contact Info) Description 11/01/2023 12:28 PM TEMPORARY STAFF ACCOUNTANT - 11/01/2023 11:59 PM TEMPORARY STAFF ACCOUNTANT Hospital Encounter Department of Laboratory Medicine in [address] [phone] Katja Umana M.D. [address] [place] [phone] Alcoholic Cirrhosis Of Liver With Ascites (HCC) Discharge Disposition: Home or Self Care Social History Tobacco Use Types Packs/Day Years Used Date Smoking Tobacco: Every Day Cigarettes 0.5 40 Smokeless Tobacco: Never Alcohol Use Standard Drinks/Week Comments Not Currently 0 (1 standard drink = 0.6 oz pur e alcohol) [facility] Utilities Answer Date Recorded In the past 12 months has [employer], gas, oil, or water [employer] threatened to shut off services in your [...] Date Recorded Employment status Working with temporary [email or web address] 10/15/2023 Housing Stability Answer Date Recorded What is your living situation today? I have a [facility] place to live 10/15/2023 Sex and Gender Information Value Date Recorded Sex Assigned at Female 10/06/2023 10:50 AM TEMPORARY STAFF ACCOUNTANT Gender Identity Female 10/06/2023 10:50 AM TEMPORARY STAFF ACCOUNTANT Sexual Orientation Straight 10/06/2023 10 :50 AM TEMPORARY STAFF ACCOUNTANT documented as of this encounter Medications at [...] PM CDT Appointment Department of Radiology, [facility] in [place], [place] [address] [place] [phone] Katja Umana M.D. [address] [place] [phone] 01/19/2024 10:00 AM CDT Telemedicine Department of Nutrition and Diabetes Education in [place], [place] [address] [place] [phone] Katja Umana M.D. [address] [place] [phone] Taty Cunningham M.S., RDN, LD [address] [place] [phone] documented as of this encounter Procedures Procedure Name Priority Date/Time Associated Diagnosis Comments BASIC METABOLIC PANEL, S/P Routine 11/01/2023 12:49 PM TEMPORARY STAFF ACCOUNTANT Alcoholic Cirrhosis Of Liver With Ascites (HCC) documented in this encounter Results * (ABNORMAL) Basic Metabolic Panel (11/01/2023 12:49 PM TEMPORARY STAFF ACCOUNTANT) Potassium, P 4.1 3.6 - 5.2 mmol/L 11/01/2023 1:13 PM TEMPORARY STAFF ACCOUNTANT CNFL Sodium, P 128(L) 135 - 145 mmol/L 11/01/2023 1:13 PM TEMPORARY STAFF ACCOUNTANT CNFL Chloride, P 95(L) 98 - 107 mmol/L 11/01/2023 1:13 PM TEMPORARY STAFF ACCOUNTANT CNFL Bicarbonate, P 26 22 - 29 mmol/L 11/01/2023 1:13 PM TEMPORARY STAFF ACCOUNTANT CNFL Anion Gap, P 7 7 - 15 11/01/2023 1:13 PM TEMPORARY STAFF ACCOUNTANT CNFL BUN (Blood Urea Nitrogen), P 10 6 - 21 mg/dL 11/01/2023 1:13 PM TEMPORARY STAFF ACCOUNTANT CNFL Creatinine 0.42(L) 0.59 - 1.04 mg/dL 11/01/2023 1:13 PM TEMPORARY STAFF ACCOUNTANT CNFL Estimated GFR (eGFR) >90 >=60 mL/min/BSA 11/01/2023 1:13 PM TEMPORARY STAFF ACCOUNTANT CNFL Comment: Estimated GFR calculated using the 2020 CKD_EPI creatinine equation. Calcium, Total, P 8.3(L) 8.8 - 10.2 mg/dL 11/01/2023 1:13 PM TEMPORARY STAFF ACCOUNTANT CNFL Glucose, P 105 70 - 140 mg/dL 11/01/2023 1:13 PM TEMPORARY STAFF ACCOUNTANT CNFL Blood (Blood, Venous) 11/01/2023 12:49 PM TEMPORARY STAFF ACCOUNTANT 11/01/2023 12:54 PM TEMPORARY STAFF ACCOUNTANT Katja Umana M.D. LAB BLOOD ADD-ON [facility] [address] [place] [phone], [facility] CNFL [facility] in [address] [address] documented in this encounter Visit Diagnoses Diagnosis Alcoholic Cirrhosis Of Liver With Ascites (HCC) documented in this encounter Additional Health Concerns Assessment Noted Time PHQ-9 Depression Total Score: 3 10/20/19 24 7:30 AM TEMPORARY STAFF ACCOUNTANT documented as of this encounter
--- OUTSIDE RECORDS SUMMARY | 2023-12-23 14:22 | XMS_ITS | Encounter Summary ---
Author Name Unknown Organization [facility] Address [address] [place] [address] Care Team Providers Care Meat Stocker Name Role Phone Unavailable Primary Care Provider Unavailabl e Reason for Referral * Outpatient (Routine) - Closed Specialty Diagnoses / Procedures Referred By Contact Referred To Contact Gastroenterology and Hepatology Katja Aguilera M.D. [address] [place] [phone] [facility] Referral ID Status Reason Start Date Expiration Date Visits Re quested Visits Authorized [id number] Closed 10/28/2023 04/28/2025 1 1 GER CIVIL Encounter Details Date Type Department Care Team (Late st Contact Info) Description 10/28/2023 Orders Only [facility] in [place], [place] [address] [place] [phone] Katja Aguilera M.D. [address] [place] [phone] Alcoholic Cirrhosis Of Liver With Ascites (HCC) (Primary Dx) Social History Tobacco Use Types Packs/Day Years Used Date Smoking Tobacco: Every Day Cigarettes 0.5 40 Smokeless Tobacco: Never Alcohol Use Standard Drinks/Week Comments Not Currently 0 (1 standard drink = 0.6 oz pur e alcohol) [facility] Utilities Answer Date Recorded In the past 12 months has [employer] electric, gas, oil, or water company threatened [...] your living situation today? I have a [facility] place to live 10/15/2023 Sex and Gender Information Value Date Recorded Sex Assigned at Female 10/06/2023 10:50 AM MANAGER CIVIL Gender Identity Female 10/06/2023 10:50 AM MANAGER CIVIL Sexual Orientation Straight 10/06/2023 10 :50 AM MANAGER CIVIL documented as of this encounter Miscellaneous Notes * Addendum Note - Katja Aguilera M.D. - 10/28/2023 2:39 PM CSTAddended by: KATJA AGUILERA on: 10/28/2023 02:48 PM Modules accepted: Orders GER CIVIL documented in this encounter Plan of Treatment Upcoming Encounters Date Type Department Care Team (Late st Contact Info) Description 12/30/2023 3:15 PM CDT Appointment Department of Radiology, [facility], in [place], [place] [address] [place] [phone] Katja Aguilera M.D. [address] [place] [phone] 01/19/2024 10:00 AM CDT Telemedicine Department of Nutrition and Diabetes Education in [place], [place] [address] [place] [phone] Katja Aguilera M.D. [address] [place] [phone] Taty Cunningham M.S., RDN, LD [address] [place] [phone] Scheduled Referrals Name Type Priority Associated Diagnoses Order Schedule Gastroenterology and Hepatology office visit (clinic) Outpatient Referral Routine Expected: 12/14/2023, Expires: 01/25/2025 documented as of this encounter Results * (ABNORMAL) Basic Metabolic Panel (11/01/2023 12:49 PM MANAGER CIVIL) Potassium, P 4.1 3.6 - 5.2 mmol/L 11/01/2023 1:13 PM MANAGER CIVIL CNFL Sodium, P 128(L) 135 - 145 mmol/L 11/01/2023 1:13 PM MANAGER CIVIL CNFL Chloride, P 95(L) 98 - 107 mmol/L 11/01/2023 1:13 PM MANAGER CIVIL CNFL Bicarbonate, P 26 22 - 29 mmol/L 11/01/2023 1:13 PM MANAGER CIVIL CNFL Anion Gap, P 7 7 - 15 11/01/2023 1:13 PM MANAGER CIVIL CNFL BUN (Blood Urea Nitrogen), P 10 6 - 21 mg/dL 11/01/2023 1:13 PM MANAGER CIVIL CNFL Creatinine 0.42(L) 0.59 - 1.04 mg/dL 11/01/2023 1:13 PM MANAGER CIVIL CNFL Estimated GFR (eGFR) >90 >=60 mL/min/BSA 11/01/2023 1:13 PM MANAGER CIVIL CNFL Comment: Estimated GFR calculated using the 2020 CKD_EPI creatinine equation. Calcium, Total, P 8.3(L) 8.8 - 10.2 mg/dL 11/01/2023 1:13 PM MANAGER CIVIL CNFL Glucose, P 105 70 - 140 mg/dL 11/01/2023 1:13 PM MANAGER CIVIL CNFL Blood (Blood, Venous) 11/01/2023 12:49 PM MANAGER CIVIL 11/01/2023 12:54 PM MANAGER CIVIL Katja Aguilera M.D. LAB BLOOD ADD-ON [facility] [address] [place] [address], [facility] CNFL [facility] [address] documented in this encounter Visit Diagnoses Diagnosis Alcoholic Cirrhosis Of Liver With Ascites (HCC)- Primary documented in this encounter Additional Health Concerns Assessment Noted Time PHQ-9 Depression Total Score: 3 10/20/19 24 7:30 AM MANAGER CIVIL documented as of this encounter
--- OUTSIDE RECORDS SUMMARY | 2023-12-23 14:22 | XMS_ITS | Encounter Summary ---
Author Name Unknown Organization [facility] Address [address] [place] [phone] Care Team Providers Care Procurement Cost Coordinator Name Role Phone Unavailable Primary Care Provider Unavailabl e Encounter Details Date Type Department Care Team (Late st Contact Info) Description 10/09/2023 Documentation Division of Gastroenterology in [place], [place] [address] [place] [phone] Joy Rudd M.B.B.S. [address] [place] [phone] Social History Tobacco Use Types Packs/Day Years [...] Sex Assigned at Female 10/06/2023 10:50 AM DENIAL MANAGEMENT REPRESENTATIVE Gender Identity Female 10/06/2023 10:50 AM DENIAL MANAGEMENT REPRESENTATIVE Sexual Orientation Straight 10/06/2023 10 :50 AM DENIAL MANAGEMENT REPRESENTATIVE documented as of this encounter Progress Notes * Joy Rudd M.B.B.S. - 10/09/2023 4:20 PM CST Brief GI note As the provider on-call, I was contacted by Dottiemarcus this afternoon. She reports that after herparacentesis yesterday, she has had increased soakage of her covering gauze. She has had to change the gauze several times since the procedure, which is unusual compared to her previous paracenteses.She clarified that it is clear or slightly yellow leakage, no blood. There has no pain at the site.She reports that during the procedure, they had to prick twice to obtain a good window since the drain was kinked the 1st time. I assured her that this is probably the reason she is soaking more than. I asked her to use a higher amount of gauze and tape it as firmly as she could on her abdomen. Thepressure would likely help with the leakage. If she continues to have leakage (or increase in), bloody discharge, pain at the site, I have asked her to visit the emergency room locally. She is in agreement with the plan. Electronically signed by: Vielka CanelaSPetros 10/09/23 4:28 PM DENIAL MANAGEMENT REPRESENTATIVE AL MANAGEMENT REPRESENTATIVE documented in this encounter Plan of Treatment Upcoming Encounters Date Type Department Care Team (Late st Contact Info) Description 12/30/2023 3:15 PM CDT Appointment Department of Radiology, [facility], in [place], [place] [address] [place] [phone] Katja Umana M.D. [address] [place] [phone] 01/19/2024 10:00 AM CDT Telemedicine Department of Nutrition and Diabetes Education in [place], [place] [address] [place] [phone] Katja Umana M.D. [address] [place] [phone] Taty Cunningham M.S., RDN, LD [address] [place] [phone] documented as of this encounter Visit Diagnoses Not on filedocumented in this encounter
--- OUTSIDE RECORDS SUMMARY | 2023-12-23 14:22 | XMS_ITS | Encounter Summary ---
Author Name Unknown Organization [facility] Address [address] [place] [address] Care Team Providers Care Hand Edger Name Role Phone Unavailable Primary Care Provider Unavailabl e Reason for Referral * Outpatient (Routine) - Closed Specialty Diagnoses / Procedures Referred By Contlulu t Referred To Contact Nicotine Dependence Sudha Bernstein M.A., DonnSChandrakant, M.S.W. [address] [place] [phone] [facility] Referral ID Status Reason Start Date Expiration Date Visits Re quested Visits Authorized [id number] Closed 10/28/2023 04/28/2025 1 1 Scheduling Instructions Please schedule this patient for a follow up phone visit. DREN COUNSELOR Encounter Details Date Type Department Care Team (Late st Contact Info) Description 10/28/2023 Orders Only Department of Nicotine Dependence, [facility] in [place], [place] [address] [place] [phone] Sudha Bernstein M.A., DonnS.W., M.S.W. [address] [place] [phone] Social History Tobacco Use Types Packs/Day Years Used Date Smoking Tobacco: Every Day Cigarettes 0.5 40 Smokeless Tobacco: Never Alcohol Use Standard Drinks/Week Comments Not Currently 0 (1 standard drink = 0.6 oz pur e alcohol) 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 I have a [facility] place to live 10/15/2023 Sex and Gender Information Value Date Recorded Sex Assigned at Female 10/06/2023 10:50 AM CHILDREN COUNSELOR Gender Identity Female 10/06/2023 10:50 AM CHILDREN COUNSELOR Sexual Orientation Straight 10/06/2023 10 :50 AM CHILDREN COUNSELOR documented as of this encounter Plan of Treatment Upcoming Encounters Date Type Department Care Team (Late st Contact Info) Description 12/30/2023 3:15 PM CDT Appointment Department of Radiology, [facility] in [place], [place] [address] [place] [phone] Katja Umana M.D. [address] [place] [phone] 01/19/2024 10:00 AM CDT Telemedicine Department of Nutrition and Diabetes Education in [place], [place] [address] [place] [phone] Katja Umana M.D. [address] [place] [phone] Taty Cunningham M.S., RDN, LD [address] [place] [phone] Scheduled Referrals Name Type Priority Associated Diagnoses Order Schedule Nicotine Dependence office visit (clinic) Outpatient Referral Routine Expected: 11/11/2023, Expires: 01/25/2025 documented as of this encounter Visit Diagnoses Not on filedocumented in this encounter Additional Health Concerns Assessment Noted Time PHQ-9 Depression Total Score: 3 10/20/19 24 7:30 AM CHILDREN COUNSELOR documented as of this encounter
--- OUTSIDE RECORDS SUMMARY | 2023-12-23 14:22 | XMS_ITS | Encounter Summary ---
Author Name Unknown Organization [facility] Address [address] [place] [address] Care Team Providers Care Paediatric Surgeon Name Role Phone Unavailable Primary Care Provider Unavailabl e Encounter Details Date Type Department Care Team (Latest Contact Info) Description 10/08/2023 3:20 PM ENGRAVER APPRENTICE DECORATIVE Ancillary Procedure Department of Gastroenterology Social History Tobacco Use Types Packs/Day Years [...] Assigned at Female 10/06/2023 10:50 AM ENGRAVER APPRENTICE DECORATIVE Gender Identity Female 10/06/2023 10:50 AM ENGRAVER APPRENTICE DECORATIVE Sexual Orientation Straight 10/06/2023 10 :50 AM ENGRAVER APPRENTICE DECORATIVE documented as of this encounter Plan of Treatment Upcoming Encounters Date Type Department Care Team (Late st Contact Info) Description 12/30/2023 3:15 PM CDT Appointment Department of Radiology, [facility], in [place], [place] [address] [place] [phone] Katja Umana M.D. [address] [place] [phone] 01/19/2024 10:00 AM CDT Telemedicine Department of Nutrition and Diabetes Education in [place], [place] [address] [place] [phone] Katja Umana M.D. [address] [place] [phone] Taty Cunningham M.S., RDN, LD [address] [place] [phone] documented as of this encounter Procedures Procedure Name Priority Date/Time Associated Diagnosis Comments GASTROENTEROLOGY IMAGE EXAM Routine 10/08/2023 3:20 PM ENGRAVER APPRENTICE DECORATIVE documented in this encounter Results * Duodenum, Entire examined duodenum Upper GI endoscopy-Gastroenterology Image Exam (10/08/2023 3:20 PM ENGRAVER APPRENTICE DECORATIVE) 10/08/2023 3:17 PM ENGRAVER APPRENTICE DECORATIVE Narrative IIMS - 10/08/2023 3:57 PM ENGRAVER APPRENTICE DECORATIVE This order has been created and auto-finalized to support the import of images acquired without order. The clinical documentation to support these images can be found on the encounter that produced images. Provider Not In System IMG NON RAD IMAGI NG PROCEDURES [facility]IM[facility] NA documented in this encounter Visit Diagnoses Not on filedocumented in this encounter
--- OUTSIDE RECORDS SUMMARY | 2023-12-23 14:22 | XMS_ITS | Encounter Summary ---
Author Name Unknown Organization [facility] Address [address] [place] [address] Care Team Providers Care Construction Supervisor/Carpenter Name Role Phone Unavailable Primary Care Provider Unavailabl e Reason for Referral * Outpatient (Routine) - Closed Specialty Diagnoses / Procedures Referred By Contac t Referred To Contact Diagnoses Ascites Procedures US Paracentesis with Imaging Guidance Katja Umana M.D. 200 [place] [phone] [facility] Referral ID Status Reason Start Date Expiration Date Visits Re quested Visits Authorized [id number] Closed 10/18/2023 10/17/2024 1 1 OR MEDIA BUYER Reason for Visit * Auth/Cert (Routine) Specialty Diagnoses / Procedures Referred By Contac t Referred To Contact Diagnoses Ascites Procedures US PARACENTESIS WITH IMAGING GUIDANCE Referral ID Status Reason Start Date Expiration Date Visits Re quested Visits Authorized [id number] 1 1 Encounter Details Date Type Department Care Team (Latest Contact Info) Description 10/22/2023 7:27 AM JUNIOR MEDIA BUYER - 10/22/2023 3:44 PM JUNIOR MEDIA BUYER Hospital Encounter Department of Radiology, [facility], in [place], [place] [address] [place] [phone] Katja Umana M.D. [address] [place] [phone] Ascites Discharge Disposition: Home or Self Care Social History Tobacco Use Types Packs/Day Years Used Date Smoking Tobacco: Every Day Cigarettes 0.5 40 Smokeless Tobacco: Never Alcohol Use Standard Drinks/Week Comments Not Currently 0 (1 standard drink = 0.6 oz pur e alcohol) [facility] Utilities Answer Date Recorded In the past [...] your living situation today? I have a [facility] place to live 10/15/2023 Sex and Gender Information Value Date Recorded Sex Assigned at Female 10/06/2023 10:50 AM JUNIOR MEDIA BUYER Gender Identity Female 10/06/2023 10:50 AM JUNIOR MEDIA BUYER Sexual Orientation Straight 10/06/2023 10 :50 AM JUNIOR MEDIA BUYER documented as of this encounter Last Filed Vital Signs Vital Sign Reading Time Taken Comments Blood Pressure 116/58 10/22/2023 10:10 AM JUNIOR MEDIA BUYER Pulse 102 10/22/2023 10:10 AM JUNIOR MEDIA BUYER Temperature - - Respiratory Rate - - Oxygen Saturation 100% 10/22/2023 10:10 AM JUNIOR MEDIA BUYER Inhaled Oxygen Concentration - - Weight - [...] Appointment Department of Radiology, [facility] in [place], [place] [address] [place] [phone] Katja Umana M.D. [address] [place] [phone] 01/19/2024 10:00 AM CDT Telemedicine Department of Nutrition and Diabetes Education in [place], [place] [address] [place] [phone] Katja Umana M.D. [address] [place] [phone] Taty Cunningham M.S., RDN, LD [address] [place] [phone] documented as of this encounter Procedures Procedure Name Priority Date/Time Associated Diagnosis Comments US PARACENTESIS WITH IMAGING GUIDANCE RAD - Routine (most inpatients and all outpatients) 10/22/2023 10:18 AM JUNIOR MEDIA BUYER Ascites BACTERIAL CULTURE, AEROBIC + SUSC Timed 10/22/2023 8:54 AM JUNIOR MEDIA BUYER Ascites CELL COUNT AND DIFFERENTIAL, BF Timed 10/22/2023 8:54 AM JUNIOR MEDIA BUYER Ascites documented in this encounter Results * US Paracentesis with Imaging Guidance (10/22/2023 10:18 AM JUNIOR MEDIA BUYER) Anatomical Region Laterality Modality Abdomen, Ultrasound RST LOS, Ultrasound ARZ LOS, Procedure FLA LOS, Abdominal FLA LOS, Procedural, Procedural NWWI LOS N/A Ultrasound Impressions 10/22/2023 10:26 AM JUNIOR MEDIA BUYER Ultrasound-guided diagnostic and therapeutic paracentesis. NR Narrative 10/22/2023 10:26 AM JUNIOR MEDIA BUYER EXAM: US PARACENTESIS WITH IMAGING GUIDANCE PRE-PROCEDURE: [...] NR Katja Umana M.D. IMG US PROCEDURES * Cell Count and Differential, Body Fluid (10/22/2023 8:54 AM JUNIOR MEDIA BUYER) Fluid Type Peritoneal /Paracente sis 10/22/2023 10:30 AM JUNIOR MEDIA BUYER DHPM Gross Appearance Serous 10/22/19 24 10:30 AM JUNIOR MEDIA BUYER DHPM Total Nucleated Cells 171 /mcL 10/22/2023 10:30 AM JUNIOR MEDIA BUYER DHPM Comment: ----REFERENCE VALUE---- Synovial: <150 /mcL Peritoneal: <500 /mcL Pleural: <500 /mcL Pericardial: <500 /mcL ----ADDITIONAL INFORMATION---- This test has been modified from the neon sign installer's instructions. Its performance characteristics were determined by [facility] in a manner consistent with CLIA requirements. This test has not been cleared or approved by the U.S. Food and Drug Administration. Neutrophils 2 % 10/22/2023 11:42 AM JUNIOR MEDIA BUYER DHPM Comment: ----REFERENCE VALUE---- Synovial: <25% Peritoneal: <25% Pleural: <25% Pericardial: <25% Lymphocytes 14 Synovial <75% % 10/22/2023 11:42 AM JUNIOR MEDIA BUYER DHPM Monocytes/Macropha ges 70 Synovial <70% % 10/22/2023 11:42 AM JUNIOR MEDIA BUYER DHPM Other Cells 14 % 10/22/2023 11:42 AM JUNIOR MEDIA BUYER DHPM Comment: ----REFERENCE VALUE---- The reference range and other method performance specifications have not been established for this bodyfluid. The test result must be integrated into the clinical context for interpretation. Other Cells Are: See Comment 10/22/2023 11:42 AM JUNIOR MEDIA BUYER [facility] Comment:Mesothelial cells Comment See Comment 10/22/2023 11:42 AM JUNIOR MEDIA BUYER PM Comment:No blasts or maligna nt cells seen. Reviewed by: Jose 10/22/2023 11:42 AM JUNIOR MEDIA BUYER PM Fluid (Peritoneal Fluid) 10/22/2023 8:54 AM JUNIOR MEDIA BUYER Felipe Morales M.D. LAB BODY FLUIDS AND STOOLS ORDERABLES Performing Organization Address [facility] Co de Phone Number [facility] 200 [place] [address], [facility] 200 [place] [address] * Bacterial Culture, Aerobic + Susceptibility (10/22/2023 8:54 AM JUNIOR MEDIA BUYER) Bacterial Culture, Aerobic + Susc No growth after 5 days of incubation. 10/27/2023 11:39 AM JUNIOR MEDIA BUYER DT Fluid (Peritoneal Fluid) 10/22/2023 8:54 AM JUNIOR MEDIA BUYER Narrative [facility] - 10/27/2023 11:39 AM JUNIOR MEDIA BUYER Bacterial Culture: Placed in Bactec anaerobic bottle Bacterial Culture: Received Bactec aerobic bottle Felipe Morales M.D. LAB MICROBIOLOGY - GENERAL ORDERABLES Performing Organization Address [facility] Co de Phone Number [facility] 200 [place] [address], [facility] 200 [place] [address] documented in this encounter Visit Diagnoses Diagnosis Ascites documented in this encounter Administered Medications Inactive Administered Medications - up to 3 most recent administrations Medication Order MAR Action Action Date Dose Rate Site albumin human 25 % injection 25 g 25 g, intravenous, Once, On Wed10/22/23 at 0930, For 1 dose, If no infusion rate [...] albumin at the provider's discretion) New Bag 10/22/2023 9:07 AM JUNIOR MEDIA BUYER 25 g albumin human 25 % injection 25 g 25 g, intravenous, Once, On Wed10/22/23 at 0945, For 1 dose, If no infusion rate [...] albumin at the provider's discretion) New Bag 10/22/2023 9:31 AM JUNIOR MEDIA BUYER 25 g lidocaine 10 mg/mL (1 %) injection (XYLOCAINE) As needed, Starting on Wed10/22/23 at 0858, Intra-Op Given 10/22/2023 8:58 AM JUNIOR MEDIA BUYER 10 mL Right Upper Abdomen documented in this encounter Active and Recently Administered Medications Times are shown in JUNIOR MEDIA BUYER. Scheduled Medication Order 10/20/2023 10/21/2023 10/22/2023 albumin human 25 % injection 25 g (COMPLETED) 25 g, intravenous, Once, On Wed10/22/23 at 0930, For 1 dose, If no infusion rate specified: Administer the 25% solution at 100 mL/hr Paracentesis Volume Albumin 25% Replacement Less than 3 liters Only at discretion of provider 3 - 4.9 liters 25 Grams/100 mL 5 - 7.9 liters 50 Grams/200 mL 8 - 9.9 liters 75 Grams/300 mL Greater than 10 liters 100 Grams/400 mL (additional albumin at the provider's discretion) 0907 (New Bag - Prov ider: Meagan Turk, R.N.)0931 (Stopped - Provider: Meagan Turk R.N.) albumin human 25 % injection 25 g (COMPLETED) 25 g, intravenous, Once, On Wed10/22/23 at 0945, For 1 dose, If no infusion rate specified: Administer the 25% solution at 100 mL/hr Paracentesis Volume Albumin 25% Replacement Less than 3 liters Only at discretion of provider 3 - 4.9 liters 25 Grams/100 mL 5 - 7.9 liters 50 Grams/200 mL 8 - 9.9 liters 75 Grams/300 mL Greater than 10 liters 100 Grams/400 mL (additional albumin at the provider's discretion) 0931 (New Bag - Prov ider: Meagan Turk R.N.)1016 (Stopped - Provider: Brent Hartley R.N.) PRN Medication Order 10/20/2023 10/21/2023 10/22/2023 lidocaine 10 mg/mL (1 %) injection (XYLOCAINE) (COMPLETED) As needed, Starting on Wed10/22/23 at 0858, Intra-Op 0858 (Given - Provid er: Felipe Da Silva M.D.) documented in this encounter Additional Health Concerns Assessment Noted Time PHQ-9 Depression Total Score: 3 10/20/19 24 7:30 AM JUNIOR MEDIA BUYER documented as of this encounter
--- OUTSIDE RECORDS SUMMARY | 2023-12-23 14:22 | XMS_ITS | Encounter Summary ---
Author Name Unknown Organization [facility] Address [address] [place] [address] Care Team Providers Care Route Sales Specialist Name Role Phone Unavailable Primary Care Provider Unavailabl e Reason for Visit * Reason Onset Date Comments Follow-up 10/09/2023 Encounter Details Date Type Department Care Team (Late st Contact Info) Description 10/09/2023 Nurse Triage Department of Family Medicine, [address] [phone] Katharine Domínguez R.N. Follow-up Social History Tobacco Use Types Packs/Day Years [...] Sex Assigned at Female 10/06/2023 10:50 AM PIT WORKER POWER SHOVEL Gender Identity Female 10/06/2023 10:50 AM PIT WORKER POWER SHOVEL Sexual Orientation Straight 10/06/2023 10 :50 AM PIT WORKER POWER SHOVEL documented as of this encounter Miscellaneous Notes * Telephone Encounter - Katharine Domínguez R.N. - 10/09/2023 2:41 PM PIT WORKER POWER SHOVEL Chief Complaint / Reason for Call Patient is a 62 y.o. female calling regarding Follow-up. Assessment Concern: Patient had a paracentesis yesterday. Dressing was placed over area yesterday after procedure. Dressing was changes last night due to being saturated. This morning patient reports upon waking she was saturated. Patient reports that she changed the dressing x 3 thus far today. GI is the department completed procedure yesterday. Patient was warm transferred to [place] with switchboard to be placed on contact with provider dixonac operator for GI. Present for: Procedure completed yesterday Home cares tried: Dressing Changes Calling to request: Review of symptoms/Advice The recommended disposition is Other. WORKER POWER SHOVEL documented in this encounter Plan of Treatment Upcoming Encounters Date Type Department Care Team (Late st Contact Info) Description 12/30/2023 3:15 PM CDT Appointment Department of Radiology, [facility] in [place], [place] [address] [place] [phone] Katja Umana M.D. [address] [place] [phone] 01/19/2024 10:00 AM CDT Telemedicine Department of Nutrition and Diabetes Education in [place], [place] [address] [place] [phone] Katja Umana M.D. [address] [place] [phone] Taty Cunningham M.S., RDN, LD [address] [place] [phone] documented as of this encounter Visit Diagnoses Not on filedocumented in this encounter
--- OUTSIDE RECORDS SUMMARY | 2023-12-23 14:22 | XMS_ITS | Encounter Summary ---
Author Name Unknown Organization [facility] Address [address] [place] [address] Care Team Providers Care Bore Miner Operator Name Role Phone Unavailable Primary Care Provider Unavailabl e Reason for Visit * Reason Comments Nicotine Dependence * Outpatient (Routine) - Closed Specialty Diagnoses / Procedures Referred By Contac t Referred To Contact Pulmonary Medicine / Nicotine Dependence Diagnoses Nicotine Dependence Cigarettes Romana Diane M.D., Ph.D. [address] [place] [phone] [facility] Referral ID Status Reason Start Date Expiration Date Visits Re quested Visits Authorized [id number] Closed 10/20/2023 04/20/2025 1 1 Encounter Details Date Type Department Care Team (Late st Contact Info) Description 10/28/2023 11:00 AM BOAT PILOT Virtual Visit Department of Nicotine Dependence, [facility], in [place], [place] [address] [place] [phone] Romana Diane M.D., Ph.D. [address] [place] [phone] Sudha Bernstein M.A., L.I.C.S.W., M.S.W. [address] [place] [phone] Nicotine Dependence Cigarettes Social History Tobacco Use Types Packs/Day Years Used Date Smoking Tobacco: Every Day Cigarettes 0.5 40 Smokeless Tobacco: Never Alcohol Use Standard Drinks/Week Comments Not Currently 0 (1 standard drink = 0.6 oz pur e alcohol) [facility] Utilities Answer Date Recorded In [...] your living situation today? I have a [facility] place to live 10/15/2023 Sex and Gender Information Value Date Recorded Sex Assigned at Female 10/06/2023 10:50 AM BOAT PILOT Gender Identity Female 10/06/2023 10:50 AM BOAT PILOT Sexual Orientation Straight 10/06/2023 10 :50 AM BOAT PILOT documented as of this encounter Consult Notes * Sudha Bernstein M.A., L.I.C.S.Tom, M.S.Dameon. - 10/28/2023 11:00 AM CST SUBJECTIVE CHIEF COMPLAINT / REASON FOR VISIT Tobacco use disorder HISTORY OF PRESENT ILLNESS Monique Redmond is a 62 y.o. female who was called for a phone consultation and is being evaluated for Tobacco Use Disorder. The patient shared information about her tobacco use history and her motivation to quit smoking at this time. The patient shared she was diagnosed with liver disease two months ago and this is also when she quit drinking alcohol. The patient reported since she quit drinking alcohol she has noticed her tobacco use has decreased. Discussion was had about the relationship that can be present for some individuals between alcohol and tobacco use and can be a trigger for use. The patient reflected on her past attempts to quit and not feeling she was committed at that time. Discussion was had about long-acting and short-acting options for smoking cessation. The patient reported she previously used Wellbutrin and she was informed due to this medication being metabolized through the liver [facility] staff would need to discuss the patient's eligibility to use this medication because of her medical history. The patient expressed interest in using Varenicline and nicotinelozenges for smoking cessation. Discussion was had about the habits and associations that are formed around smoking over time and the concept of re- training your brain to make new associations that do not involve smoking. The patient was provided with information on potential side effects of Varenicline and she was informed this is a medication she can stop abruptly if she has any concerns when taking this medication. Discussion was had about scheduling a follow up phone visit in two weeks and the patient was encouraged to contact the [facility] with any questions before this time. Tobacco Use History: Patient averages 11-20 cigarettes per day. Monique started using tobacco regularly at the age of 22. She has made multiple quit attempts with her longest period of abstinence beingclose to nine months when she was . Monique has tried stopping using various methods such as cold turkey , nicotine patches, nicotine gum, Buproprion, and hypnosis. Patient has relapsed due to life stressors and strong cravings. Patient reports specific triggers are: driving, talking on the phone, and in the morning. Motivation: Monique shares that she is extremely motivated to stop using tobacco at this time. Her reasons to quit are to be around for family, to improve health. Potential Barriers to Quitting: No perceived barriers at this time. OBJECTIVE Co-occurring Problems: The patient self-reports she has a diagnosis of Depression in her medical record but does not know why that it listed as a medical concern for her. The patient denied taking medication for her mental health at this time and described her recent mood as most days pretty good. The patient denied having concerns about her mood at this time and denied suicidal thoughts. Discussion was had about mood changes that can occur when one quits smoking and the patient was encouraged to continue to assess for any mood changes or concerns. The patient was informed if at anytime shehas concerns about her mood when starting this new medication she can stop taking the medication and she was encouraged to contact a medical provider. Substance Use Disorders: The patient self-reported she stopped drinking two months ago. The patientshared she has not attended substance use treatment for alcohol use. Assessment of Medication Contraindications: Patient states no contraindications to Varenicline. Thepatient denied being or . The patient denied having a history of kidney disease or kidney injury. The patient reported she has not taken Varenicline previously. ASSESSMENT / PLAN 1. Tobacco use disorder. 2. Tobacco dependence counseling: Ms. Redmond is planning to stop smoking but is unsure of the quit date at this time. Time was spent discussing with the patient the neurobiology of nicotine addiction and the rationalefor using medications to help with cessation. Education was provided on the 6 FDA approved medications for cessation and all questions were answered to the best of my ability. The following is consistent with assessment and patient preference: Nicotine lozenge: 2 m-2 lozenges every 1-2 hours as needed to control craving. Adverse effects may include mouth soreness, nausea (which tends to lessen over time, though dose should be reduced if nausea develops). Varenicline Starter Pack (Chantix): one 0.5 mg tablet daily for three days, then increase to one 0.5 mg tablet twice a day for four days. After seven days, increase the dose to 1 mg twice a day for 3months. If not smoking at the end of three months, consider continuing the 1 mg pills for an additional 3 months. Take the pills with food and a large glass of water. Tapering is not necessary when discontinuing Varenicline. .We discussed the common side effects of varenicline, such as vivid dreams, headaches, insomnia and recommended to take the medication with food. The patient does not have any known contraindications to using varenicline, such as decreased kidney function. Medication plan is within approved guidelines and patient was screened for contraindications BEHAVIORAL PLAN: Discussion was had about how to approach urges to smoke including planning for triggers, changing routines and getting support. Strategies such as distraction , use NRT, and alternative substitutes were discussed to help manageurges and cravings. Follow Up: I encouraged Monique Yvonne Ruy to contact me with any questions or concerns. I plan tocall the patient to follow-up in two weeks. Patient was provided with [facility] educational materials electronically. . Patient is ready to learn, no apparant barriers to learning were identified. Patient understands and agrees with plan. 30 minutes of our visit was spent on tobacco use disorder counseling. Sudha Bernstein M.A., Sony, M.S.W. 10/28/2023 11:33 AM BOAT PILOT PILOT documented in this encounter Plan of Treatment Upcoming Encounters Date Type Department Care Team (Late st Contact Info) Description 12/30/2023 3:15 PM CDT Appointment Department of Radiology, [facility], in [place], [place] [address] [place] [phone] Katja Umana M.D. [address] [place] [phone] 01/19/2024 10:00 AM CDT Telemedicine Department of Nutrition and Diabetes Education in [place], [place] [address] [place] [phone] Katja Umana M.D. [address] [place] [phone] Taty Cunningham M.S., RDN, LD [address] [place] [phone] documented as of this encounter Visit Diagnoses Diagnosis Nicotine Dependence Cigarettes documented in this encounter Additional Health Concerns Assessment Noted Time PHQ-9 Depression Total Score: 3 10/20/19 24 7:30 AM BOAT PILOT documented as of this encounter
--- OUTSIDE RECORDS SUMMARY | 2023-12-23 14:23 | XMS_ITS | Encounter Summary ---
Author Name Unknown Organization [facility] Address [address] [place] [address] Care Team Providers Care Practice Administrator Name Role Phone Unavailable Primary Care Provider Unavailabl e Reason for Referral * Outpatient (Routine) - Closed Specialty Diagnoses / Procedures Referred By Dotty t Referred To Contact Diagnoses Alcoholic Cirrhosis Of Liver With Ascites (HCC) Procedures US Paracentesis with Imaging Guidance Katja Umana M.D. 200 [place] [phone] [facility] Referral ID Status Reason Start Date Expiration Date Visits Re quested Visits Authorized [id number] Closed 10/06/2023 10/05/2024 1 1 MACHINE OPERATOR Reason for Visit * Outpatient (Routine) - Closed Specialty Diagnoses / Procedures Referred By Dotty oakes Referred To Contact Diagnoses Alcoholic Cirrhosis Of Liver With Ascites (HCC) Procedures US Paracentesis with Imaging Guidance Katja Umana M.D. 200 [place] [phone] [facility] Referral ID Status Reason Start Date Expiration Date Visits Re quested Visits Authorized [id number] Closed 10/06/2023 10/05/2024 1 1 Encounter Details Date Type Department Care Team (Latest Contact Info) Description 10/08/2023 10:43 AM DYE MACHINE OPERATOR - 10/08/2023 1:05 PM DYE MACHINE OPERATOR Hospital Encounter Department of Radiology, [facility] in [place] [address] [place] [phone] Katja Umana M.D. 200 [place] [phone] Alcoholic Cirrhosis Of Liver With Ascites (HCC) [...] Sex Assigned at Female 10/06/2023 10:50 AM DYE MACHINE OPERATOR Gender Identity Female 10/06/2023 10:50 AM DYE MACHINE OPERATOR Sexual Orientation Straight 10/06/2023 10 :50 AM DYE MACHINE OPERATOR documented as of this encounter Last Filed Vital Signs Vital Sign Reading Time Taken Comments Blood Pressure 121/63 10/08/2023 12:30 PM DYE MACHINE OPERATOR Pulse 104 10/08/2023 12:30 PM DYE MACHINE OPERATOR Temperature 36.5 ??C (97.7 ??F) 10/08/2023 12:[address] Respiratory Rate - - Oxygen Saturation 98% 10/08/2023 12:30 PM DYE MACHINE OPERATOR Inhaled Oxygen Concentration - - Weight - - Height - - Body Mass Index - - documented in this encounter Discharge Instructions * Attachments The following attachments cannot be sent through Care Everywhere. * Paracentesis (Gibraltarian) documented in this encounter Medications at Time of Discharge Medication Sig Dispensed Refills Start Date End Date acetaminophen 650 mg/20.3 mL suspension Take 650 mg by mouth every 4 (four) hours as needed (for pain). No more than 2000 mg in 24 hours 0 11/08/2014 Klor-Con/EF 25 mEq disintegrating tablet Take 25 mEq by mouth 3 (three) times a day. 0 09/21/2023 10/24/2023 documented as of this encounter Plan of Treatment Upcoming Encounters Date Type Department Care Team (Late st Contact Info) Description 12/30/2023 3:15 PM CDT Appointment Department of Radiology, [facility], in [place], [place] 200 [place] [address] Katja Umana M.D. [address] [place] [phone] 01/19/2024 10:00 AM CDT Telemedicine Department of Nutrition and Diabetes Education in [place], [place] [address] [place] [phone] Katja Umana M.D. [address] [place] [phone] Taty Cunningham M.S., RDN, LD [address] [place] [phone] documented as of this encounter Procedures Procedure Name Priority Date/Time Associated Diagnosis Comments US PARACENTESIS WITH IMAGING GUIDANCE RAD - Routine (most inpatients and all outpatients) 10/08/2023 12:57 PM DYE MACHINE OPERATOR Alcoholic Cirrhosis Of Liver With Ascites (HCC) PROTEIN, TOTAL, BF Timed 10/08/2023 11 :14 AM DYE MACHINE OPERATOR BACTERIAL CULTURE, AEROBIC + SUSC Timed 10/08/2023 11:14 AM DYE MACHINE OPERATOR CELL COUNT AND DIFFERENTIAL, BF Timed 10/08/2023 11:14 AM DYE MACHINE OPERATOR ALBUMIN, BODY FLUID Timed 10/08/2023 1 1:14 AM DYE MACHINE OPERATOR documented in this encounter Results * US Paracentesis with Imaging Guidance (10/08/2023 12:57 PM DYE MACHINE OPERATOR) Anatomical Region Laterality Modality Abdomen, Ultrasound RST LOS, Ultrasound ARZ LOS, Procedure FLA LOS, Abdominal FLA LOS, Procedural, Procedural NWWI LOS N/A Ultrasound Impressions 10/08/2023 1:24 PM DYE MACHINE OPERATOR Ultrasound-guided paracentesis. EP Narrative 10/08/2023 1:24 PM DYE MACHINE OPERATOR EXAM: US PARACENTESIS WITH IMAGING GUIDANCE [...] Sterile. 1% lidocaine for local anesthesia. Location: Left lower quadrant peritoneal space. Needle size: 5 Fr centesis catheter. Volume aspirated: 7181 mL Appearance of aspirate: Straw-colored, clear Complication: None. Blood loss: None. Purpose: Diagnostic and therapeutic. PATIENT INSTRUCTIONS: Patient may be dismissed from the radiology department when dismissal criteria met. POST-PROCEDURE DIAGNOSIS: Ascites Procedure Note Brett Cabral M.D. - 10/08/2023 EXAM: US PARACENTESIS WITH IMAGING GUIDANCE PRE-PROCEDURE: [...] Sterile. 1% lidocaine for local anesthesia. Location: Left lower quadrant peritoneal space. Needle size: 5 Fr centesis catheter. Volume aspirated: 7181 mL Appearance of aspirate: Straw-colored, clear Complication: None. Blood loss: None. Purpose: Diagnostic and therapeutic. PATIENT INSTRUCTIONS: Patient may be dismissed from the radiologydepartment when dismissal criteria met. POST-PROCEDURE DIAGNOSIS: Ascites IMPRESSION: Ultrasound-guided paracentesis. EP Katja Umana M.D. IMG US PROCEDURES * Protein, Total, Body Fluid (10/08/2023 11:14 AM DYE MACHINE OPERATOR) Protein, Total, BF 0.9 See Comment g/dL 10/08/2023 12:53 PM DYE MACHINE OPERATOR DTL Comment: ----ADDITIONAL INFORMATION---- A pleural fluid [...] clinical findings. All other fluids refer to www.[employer] for further interpretive information. This test has been modified from the senior supply chain analyst's instructions. Its performance characteristics were determined by [facility] in a manner consistent with CLIA requirements. This test has not been cleared or approved by the U.S. Food and Drug Administration. Fluid Type, Protein, Total Fluid, Peritoneal Fluid 10/08/2023 11:54 AM DYE MACHINE OPERATOR DTL Fluid (Peritoneal Fluid) 10/08/2023 11:14 AM DYE MACHINE OPERATOR 10/08/2023 12:09 PM DYE MACHINE OPERATOR Katja Umana M.D. LAB BODY FLUIDS AND STOOLS ORDERABLES [address] [address], [facility] [place] [address] * Albumin, Body Fluid (10/08/2023 11:14 AM DYE MACHINE OPERATOR) Albumin BF 0.5 See Comment g/dL 10/08/2023 12:53 PM DYE MACHINE OPERATOR DTL Comment: ----ADDITIONAL INFORMATION---- Peritoneal fluid albumin is used to calculate the serum-ascites albumin gradient (SAAG). Values greater than or equal to 1.1 g/dL suggest portal hypertension. Pleural fluid albumin may be used to calculate a serum-effusion albumin gradient. Values greater than 1.2 g/dL are most consistent with a transudative process. ?? All other fluids refer to www.[employer] for further interpretive information. This test has been modified from the senior supply chain analyst's instructions. Its performance characteristics were determined by [facility] in a manner consistent with CLIA requirements. This test has not been cleared or approved by the U.S. Food and Drug Administration. Fluid Type, Albumin Fluid, Peritoneal Fluid 10/08/2023 11:54 AM DYE MACHINE OPERATOR DTL Fluid (Peritoneal Fluid) 10/08/2023 11:14 AM DYE MACHINE OPERATOR 10/08/2023 12:09 PM DYE MACHINE OPERATOR Katja Umana M.D. LAB BODY FLUIDS AND STOOLS ORDERABLES [facility] [address] [place] [address], [facility] [address] [place] [address] * Cell Count and Differential, Body Fluid (10/08/2023 11:14 AM DYE MACHINE OPERATOR) Fluid Type Peritoneal /Paracente sis 10/08/2023 12:06 PM DYE MACHINE OPERATOR DHPM Gross Appearance Serous 10/08/19 24 12:06 PM DYE MACHINE OPERATOR DHPM Total Nucleated Cells 187 /mcL 10/08/2023 12:06 PM DYE MACHINE OPERATOR DHPM Comment: ----REFERENCE VALUE---- Synovial: <150 /mcL Peritoneal: <500 /mcL Pleural: <500 /mcL Pericardial: <500 /mcL ----ADDITIONAL INFORMATION---- This test has been modified from the senior supply chain analyst's instructions. Its performance characteristics were determined by [facility] in a manner consistent with CLIA requirements. This test has not been cleared or approved by the U.S. Food and Drug Administration. Neutrophils 1 % 10/08/2023 12:51 PM DYE MACHINE OPERATOR DHPM Comment: ----REFERENCE VALUE---- Synovial: <25% Peritoneal: <25% Pleural: <25% Pericardial: <25% Lymphocytes 4 Synovial <75% % 10/08/2023 12:51 PM DYE MACHINE OPERATOR DHPM Monocytes/Macropha ges 84 Synovial <70% % 10/08/2023 12:51 PM DYE MACHINE OPERATOR DHPM Other Cells 11 % 10/08/2023 12:51 PM DYE MACHINE OPERATOR DHPM Comment: ----REFERENCE VALUE---- The reference range and other method performance specifications have not been established for this bodyfluid. The test result must be integrated into the clinical context for interpretation. Other Cells Are: See Comment 10/08/2023 12:51 PM DYE MACHINE OPERATOR DHPM Comment:Mesothelial cells Comment See Comment 10/08/2023 12:51 PM DYE MACHINE OPERATOR DHPM Comment:No blasts or maligna nt cells seen. Reviewed by: Jose 10/08/2023 12:51 PM DYE MACHINE OPERATOR DHPM Fluid (Peritoneal Fluid) 10/08/2023 11:14 AM DYE MACHINE OPERATOR 10/08/2023 12:01 PM DYE MACHINE OPERATOR Katja Umana M.D. LAB BODY FLUIDS AND STOOLS ORDERABLES Performing Organization Address City/[facility] [address]/ZIP Co de Phone Number [facility] [address] [place] [address], [facility] 200 [place] [address] * Bacterial Culture, Aerobic + Susceptibility (10/08/2023 11:14 AM DYE MACHINE OPERATOR) Bacterial Culture, Aerobic + Susc No growth after 5 days of incubation. 10/13/2023 7:58 AM DYE MACHINE OPERATOR DTL Fluid (Peritoneal Fluid) 10/08/2023 11:14 AM DYE MACHINE OPERATOR 10/08/2023 2:23 PM DYE MACHINE OPERATOR Comment:Specimen Source Site : Fluid Narrative [facility] - 10/13/2023 7:58 AM DYE MACHINE OPERATOR Bacterial Culture: Received Bactec aerobic and Bactec anaerobic bottles Katja Umana M.D. LAB MICROBIOLOGY - G ENERAL ORDERABLES Performing Organization Address City/[facility] [address]/ZIP Co de Phone Number [facility] [address] [place] [address], [facility] 200 [place] [address] documented in this encounter Visit Diagnoses Diagnosis Alcoholic Cirrhosis Of Liver With Ascites (HCC) documented in this encounter Administered Medications Inactive Administered Medications - up to 3 most recent administrations Medication Order MAR Action Action Date Dose Rate Site albumin human 25 % injection 25 g 25 g, intravenous, Once, On Wed10/08/23 at 1215, For 1 dose, If no infusion rate specified: Administer the 25% solution at 100 mL/hr +++ For charting purposes only - please do not administer +++ New Bag 10/08/2023 12:23 PM DYE MACHINE OPERATOR 25 g albumin human 25 % injection Continuous Infusion: Per Instructions PRN, Starting on Wed10/08/23 at 1137, Intra-Op New Bag 10/08/2023 11:37 AM DYE MACHINE OPERATOR 25 g lidocaine 10 mg/mL (1 %) injection (XYLOCAINE) As needed, Starting on Wed10/08/23 at 1119, Intra-Op Given 10/08/2023 11:19 AM DYE MACHINE OPERATOR 10 mL documented in this encounter Active and Recently Administered Medications Times are shown in DYE MACHINE OPERATOR. Scheduled Medication Order 10/06/2023 10/07/2023 10/08/2023 albumin human 25 % injection 25 g (COMPLETED) 25 g, intravenous, Once, On Wed10/08/23 at 1215, For 1 dose, If no infusion rate specified: Administer the 25% solution at 100 mL/hr +++ For charting purposes only - please do not administer +++ 1223 (New Bag - Prov ider: Ap Suggs R.N.) PRN Medication Order 10/06/2023 10/07/2023 10/08/2023 albumin human 25 % injection (COMPLETED) Continuous Infusion: Per Instructions PRN, Starting on Wed10/08/23 at 1137, Intra-Op 1137 (New Bag - Prov ider: Ap Suggs R.N.)1259 (Stopped - Provider: Thomas Post R.N.) lidocaine 10 mg/mL (1 %) injection (XYLOCAINE) (COMPLETED) As needed, Starting on Wed10/08/23 at 1119, Intra-Op 1119 (Given - Provid er: Ramsey Hoover M.D.) documented in this encounter
--- OUTSIDE RECORDS SUMMARY | 2023-12-23 14:23 | XMS_ITS | Encounter Summary ---
Author Name Unknown Organization [facility] Address [address] [place] [id number] Care Team Providers Care Equipment Operator/Laborer/Supervisor Name Role Phone Unavailable Primary Care Provider Unavailabl e Reason for Referral * Outpatient (Routine) - Closed Specialty Diagnoses / Procedures Referred By Delgadoac t Referred To Contact Diagnoses Ascites Procedures US Paracentesis with Imaging Guidance Felipe Morales M.D. [address] [place] [address] [facility] Referral ID Status Reason Start Date Expiration Date Visits Re quested Visits Authorized [id number] Closed 10/11/2023 10/10/2024 1 1 ER ASSISTANT * Outpatient (Routine) - Closed Specialty Diagnoses / Procedures Referred By Dotty oakes Referred To Contact Diagnoses Ascites Procedures US Paracentesis with Imaging Guidance Felipe Morales M.D. [address] [place] [address] [facility] Referral ID Status Reason Start Date Expiration Date Visits Re quested Visits Authorized [id number] Closed 10/11/2023 10/10/2024 1 1 ER ASSISTANT Reason for Visit * Reason Onset Date Comments Hepatobiliary 10/08/2023 Ascites elijah Encounter Details Date Type Department Care Team (Latest Contact Info) Description 10/08/2023 Clinical Communication Division of Gastroenterology in [place], [place] [address] [place] [address] Felipe Morales M.D. [address] [place] [address] Hepatobiliary (Ascites elijah) Social History Tobacco Use Types Packs/Day Years Used Date Smoking Tobacco: Every Day Cigarettes 0.5 40 Smokeless Tobacco: Never Alcohol Use Standard Drinks/Week Comments Not Currently 0 (1 standard drink = 0.6 oz pur e alcohol) [facility] Utilities Answer Date Recorded In the past 12 months has e [employer], gas, oil, or water [employer] threatened to shut off services in your [...] Date Recorded Employment status Working with temporary [employer] tions 10/15/2023 Housing Stability Answer Date Recorded What is your living situation today? I have a [facility] place to live 10/15/2023 Sex and Gender Information Value Date Recorded Sex Assigned at Female 10/06/2023 10:50 AM BROKER ASSISTANT Gender Identity Female 10/06/2023 10:50 AM BROKER ASSISTANT Sexual Orientation Straight 10/06/2023 10 :50 AM BROKER ASSISTANT documented as of this encounter Plan of Treatment Upcoming Encounters Date Type Department Care Team (Late st Contact Info) Description 12/30/2023 3:15 PM CDT Appointment Department of Radiology, [facility], in [place], [place] [address] [place] [address] Katja Umana M.D. [address] [place] [phone] 01/19/2024 10:00 AM CDT Telemedicine Department of Nutrition and Diabetes Education in [place], [place] [address] [place] [address] Katja Umana M.D. [address] [place] [phone] Taty Cunningham M.S., RDN, LD [address] [place] [address] documented as of this encounter Results * US Paracentesis with Imaging Guidance (11/19/2023 11:55 AM BROKER ASSISTANT) Anatomical Region Laterality Modality Abdomen, Ultrasound RST LOS, Ultrasound ARZ LOS, Procedure FLA LOS, Abdominal FLA LOS, Procedural, Procedural NWWI LOS N/A Ultrasound Impressions 11/19/2023 12:26 PM BROKER ASSISTANT Ultrasound-guided paracentesis. EP Narrative 11/19/2023 12:26 PM BROKER ASSISTANT EXAM: US PARACENTESIS WITH IMAGING GUIDANCE PRE-PROCEDURE: [...] DIAGNOSIS: Ascites. IMPRESSION: Ultrasound-guided paracentesis. EP Felipe FOSS US PROCEDURES * US Paracentesis with Imaging Guidance (11/05/2023 11:25 AM BROKER ASSISTANT) Anatomical Region Laterality Modality Abdomen, Ultrasound RST LOS, Ultrasound ARZ LOS, Procedure FLA LOS, Abdominal FLA LOS, Procedural, Procedural NWWI LOS N/A Ultrasound Impressions 11/05/2023 11:28 AM BROKER ASSISTANT Ultrasound-guided diagnostic and therapeutic paracentesis. NR Narrative 11/05/2023 11:28 AM BROKER ASSISTANT EXAM: US PARACENTESIS WITH IMAGING GUIDANCE PRE-PROCEDURE: [...] lower quadrant peritoneal space. Needle size: 5 Thai centesis catheter. Volume aspirated: 6.8 liters aspirated, [...] lower quadrant peritoneal space. Needle size: 5 Thai centesis catheter. Volume aspirated: 6.8 liters aspirated, [...] Ultrasound-guided diagnostic and therapeutic paracentesis. NR Felipe FOSS US PROCEDURES documented in this encounter Visit Diagnoses Diagnosis Ascites- Primary Ascites Ascites documented in this encounter
--- OUTSIDE RECORDS SUMMARY | 2023-12-23 14:23 | XMS_ITS | Encounter Summary ---
Author Name Unknown Organization [facility] Address [address] [place] [id number] Care Team Providers Care Car Sales Associate Name Role Phone Unavailable Primary Care Provider Unavailabl e Reason for Referral * Outpatient (Routine) - Closed Specialty Diagnoses / Procedures Referred By Contac t Referred To Contact Diagnoses Alcoholic Cirrhosis Of Liver With Ascites (HCC) Procedures Echo Transthoracic (TTE) Katja Umana M.D. [address] [place] [phone] [facility] Referral ID Status Reason Start Date Expiration Date Visits Re quested Visits Authorized [id number] Closed 10/06/2023 10/05/2024 1 1 FIC COORDINATOR * Outpatient (Routine) - Closed Specialty Diagnoses / Procedures Referred By Contac t Referred To Contact Diagnoses Alcoholic Cirrhosis Of Liver With Ascites (HCC) Procedures US Paracentesis with Imaging Guidance Katja Umana M.D. 200 [place] [address] [facility] Referral ID Status Reason Start Date Expiration Date Visits Re quested Visits Authorized [id number] Closed 10/06/2023 10/05/2024 1 1 FIC COORDINATOR * Outpatient (Routine) - Closed Specialty Diagnoses / Procedures Referred By Contac t Referred To Contact Diagnoses Alcoholic Cirrhosis Of Liver With Ascites (HCC) Procedures EGD (EsophagoGastroDuodenoscopy) Restricted Katja Umana M.D. [address] [place] [phone] [facility] Referral ID Status Reason Start Date Expiration Date Visits Re quested Visits Authorized [id number] Closed 10/06/2023 10/05/2024 1 1 FIC COORDINATOR * Outpatient (Routine) - Closed Specialty Diagnoses / Procedures Referred By Contac t Referred To Contact Diagnoses Alcoholic Cirrhosis Of Liver With Ascites (HCC) Procedures DX Chest AP or PA and Lateral 2 Views Katja Umana M.D. 200 [place] [phone] [facility] Referral ID Status Reason Start Date Expiration Date Visits Re quested Visits Authorized [id number] Closed 10/06/2023 10/05/2024 1 1 FIC COORDINATOR Reason for Visit * Outpatient (Routine) - Closed Specialty Diagnoses / Procedures Referred By Contact Referred To Contact Gastroenterology and Hepatology Diagnoses Ascites Alcoholic Cirrhosis Of Liver With Ascites (HCC) [place] [address] [facility] Referral ID Status Reason Start Date Expiration Date Visits Re quested Visits Authorized [id number] Closed 10/05/2023 04/05/2025 1 1 Encounter Details Date Type Department Care Team (Latest Contact Info) Description 10/06/2023 11:00 AM TRAFFIC COORDINATOR Comprehensive Visit Brent Lyle Formerly named [facility] in [place], [place] 200 [place] [phone] Ebony Back M.D. 200 [place] [phone] [place] [phone] Ascites; Alcoholic Cirrhosis Of Liver With Ascites (HCC) Social History Tobacco Use Types Packs/Day Years Used Date Smoking Tobacco: Every Day Nutrition Answer Date Recorded Nutrition: EVOO Fat Source Unknown 11/10 Nutrition: Servings of Fruits/Vegetables per Day Not on file 2020 Dental Answer Date Recorded Dental: Regular Dentist Unknown 11/10/19 21 Sex and Gender Information Value Date Recorded Sex Assigned at Female 10/06/2023 10:50 AM TRAFFIC COORDINATOR Gender Identity Female 10/06/2023 10:50 AM TRAFFIC COORDINATOR Sexual Orientation Straight 10/06/2023 10 :50 AM TRAFFIC COORDINATOR documented as of this encounter Last Filed Vital Signs Vital Sign Reading Time Taken Comments Blood Pressure 116/72 10/06/2023 10:49 AM TRAFFIC COORDINATOR Pulse 105 10/06/2023 10:49 AM TRAFFIC COORDINATOR Temperature 35.7 ??C (96.2 ??F) 10/06/2023 1 0:49 AM TRAFFIC COORDINATOR Respiratory Rate - - Oxygen Saturation - - Inhaled Oxygen Concentration - - Weight 64.8 kg (142 lb 13.7 oz) 024 10:49 AM TRAFFIC COORDINATOR Height 169.1 cm (5' 6.58) 10/06/2023 1 0:49 AM TRAFFIC COORDINATOR Body Mass Index 22.66 10/06/2023 10:49 AM TRAFFIC COORDINATOR documented in this encounter Consult Notes * Katja Umana M.D. - 10/06/2023 11:00 AM CST GASTROENTEROLOGY & HEPATOBILIARY CONSULT Date of Consultation: 10/06/2023 12:00 PM TRAFFIC COORDINATOR Patient Name: Monique Redmond : 1960 Referring Physician: Ebony Back M.D. PCP: No primary care provider on file. Subjective: Chief Complaint/Reason for Consult Alcohol-associated cirrhosis Ascites HPI Monique Redmond is a 62 y.o. female from [place], [place], who is referred to Hepatobiliary Clinic for evaluation of a recent diagnosis of cirrhosis and ascites. 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 She is accompanied by her in clinic today. Liver-related history: Briefly, Ms. Redmond states that she was in her usual state of health until August 2023. She denies known history of liver disease prior to recent health events. In August 2023, she experienced sudden onset of perianal pain and black tarry stool. This prompted ED presentation on 08/23/2023 where she was found with a perianal abscess and fistula, status post drainage and treatment with a course of Augmentin. Abdominal imaging at the time was suggestive of cirrhotic-appearing liver, with portal hypertension and liver lesions. She re- presented to the ED one day later on 08/24/2023 with ongoing black stool and hemoglobin 10.9. There was limited access to endoscopic evaluation, and she was recommended for outpatient follow-up. She denies recurrent bleeding events. She has not yet undergone EGD. After ED visits, she reports rapid progressive accumulation of fluid in the abdomen with abdominal distension and leg swelling. She was seen in [facility] on 09/02/[address] Delgado withsymptoms of abdominal pain and bloating, leg swelling, and fatigue with reduced appetite. She was arranged for paracentesis performed on 09/16/2023, with 8 L fluid removed. She is not currently on any diuretics. In this setting, she reports additional progressive weakness, decrease in muscle mass, and weight loss. She feels decreased appetite. She feels her abdominal fluid has reaccumulated since her paracentesis, and she has additional shortness of breath with decreased exercise capacity. She also reports more fatigue, daytime and nighttime sleepiness, and brain fog. She and her husbanddeny overt confusion or disorientation, however she reports sleeping day and 12 hours nightly. She is having 6 small bowel movements per day, brown, currently with use of MiraLax. She reports a history hemorrhoids and will occasionally see bright red blood. 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 Functionally, she ambulates independently without assistive device. Given abdominal distention, she reports limited exercise capacity and able to walk up to 10 ft before feeling short of breath. Her activity status has also been limited by fatigue. She still works at the co- op however will sit for her 4 hour shift. Alcohol-related history: She reports being told over the past few weeks that her liver disease has been due to heavy alcoholuse. She denies being told of health related complications from alcohol prior to this. She denies hospitalizations or other alcohol-related health complications. She reports that she had drank socially, up to 1 time per month, until 13 years ago when her son . He was killed in a hit and run [employer] skiing at [facility]. After this, she reports significant stress and duress, and she started drinking 3-4 glasses of wine daily, with increased consumption on weekends. She denies beer or hard liquor. This went on for >10 years. She denies legal issues related to drinking. She denies complicated withdrawals. She reports that 20 years ago, she voluntarily went to meetings, however has not completed formal treatment. Of note, she has a history of colon polyps. In 2014, Mrs. Redmond was seen at [place] in the GI Clinic for evaluation of colon polyps. She was initially found with 3 small tubular adenomas that were resected on her 1st colonoscopy at age 51. Repeat colonoscopy at age 54 (April 2015) was notable for a 5 mm tubular adenoma in the transverse colon, 5 mm tubular adenoma in the sigmoid colon, and a 3 cm sessile flat polyp in the ileocecal that was found to be tubular adenoma with low grade dysplasia on biopsy. She was arranged for colonoscopy that was performed on 10/10/2015 (Dr. Dell White) and notable for one 8 mm polyp in the cecum, one 20 mm polyp in the cecum, and one 30 mm polyp in the proximal ascending colon. All polyps were resected and retrieved, with clips placed. There was sigmoiddiverticulosis. Pathology was significant for tubular adenoma and tubulovillous adenoma with low grade dysplasia. She was recommended for repeat colonoscopy in 6 months. She reports today that her subsequent colonoscopy was performed around 2019 in [place]. She had polyps removed that were foundas adenomas, however subsequent colonoscopies were not able to be performed in the setting of COVIDrelated restrictions. ROS Other than the pertinent positives and negatives listed in the HPI, a full review of systems including constitutional, HEENT, respiratory, cardiovascular, abdominal, musculoskeletal, genitourinary, neurological, psychiatric, endocrinologic, hematologic, and dermatologic complaints was negative. Past Medical History Decompensated cirrhosis, suspected due to alcohol Ascites Personal history of colon polyps Heavy alcohol use Nicotine dependence Depression Past Surgical History Hysterectomy (1999) Family History No known family history of liver disease. She reports a father with lymphoma, currently age 86. Social History Ms. Redmond lives in [place], [place], with her Timo. 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 Details as above. Smoking - Current tobacco use, 1-2 ppd for 40 years, recently <0.5 ppd. EtOH - Detailed above in HPI. Illicit drugs - THC gummy use nightly for past 2-3 months. Current Medications Potassium chloride 50 meq daily Omeprazole daily Objective: Vital Signs Vitals: 10/06/23 1049 BP: 116/72 Pulse: 105 Temp: (!) 35.7 ??C Height 169.1 cm Weight 64.8 kg BMI 22.66 Physical Exam General: Chronically ill appearing. No acute distress. Ambulatory to clinic. Eyes: PERRL. EOMI. Clear conjunctiva without injection or icterus. ENT: MMM, no oropharyngeal lesions. Lung: Breathing comfortably on room air. Decreased breath sounds in bilateral bases, with scant crackles. No audible wheeze. CV: Sinus tachycardia. S1, S2 auscultated with no murmurs appreciated. Abdomen: Superficial collateral vessels seen. Severely distended and protuberant. Non-tender to palpation. Normoactive bowel sounds. Extremities: Warm and well-perfused. 1+ bilateral lower extremity edema. Neuro: AAO x 3. No asterixis. Skin: No jaundice. Spider angiomata across chest. Palmar erythema. Outside Diagnostic Tests CT Abdomen/Pelvis with IV contrast (09/02/2023) FINDINGS: Lower chest: No focal consolidation. Liver: Nodular contour of the liver, compatible with cirrhosis. Few punctate calcified granulomas. Punctate hypodense lesions scattered throughout the liver as well, which may reflect regenerative nodules. Gallbladder and bile ducts: Cholelithiasis. Gallbladder is not distended. Pericholecystic fluid is likely secondary to ascites. Pancreas: Unremarkable. Spleen: Unremarkable. Splenule is noted. Adrenal glands: Indeterminate 1.6 cm left adrenal nodule. Kidneys: Kidneys enhance symmetrically, without hydronephrosis. Retroperitoneum: No lymphadenopathy. Bowel and mesentery: Bowel is not obstructed. No pneumoperitoneum. 2.8 x 1.7 cm peripherally enhancing left perianal fluid collection, consistent with left perianal abscess. There is also likely a perianal fistula associated. Scattered colonic diverticulosis, without evidence of acute diverticulitis. Sequelae of portal colopathy of the ascending colon. Moderate volume ascites. Bladder: Unremarkable for degree of distension. Reproductive organs: Posthysterectomy. Pelvic lymph nodes: No lymphadenopathy. Vessels: Scattered atherosclerotic calcifications. Recanalization of the paraumbilical vein noted. Abdominal wall: Mild anasarca. Bones: Multilevel degenerative changes of the spine. No suspicious/aggressive focal osseous lesion. IMPRESSION: 1. Left perianal abscess measuring 2.8 x 1.7 cm. There is also likely a left perianal fistula. 2. Morphologic sequelae of cirrhosis and portal hypertension. Scattered punctate hypodense lesions scattered throughout the liver, may reflect regenerative nodules. Recommend correlation with serum alpha-fetoprotein, and follow-up liver MRI as clinically indicated. 3. Additional incidental findings as above, including an indeterminate 1.6 cm left adrenal nodule. Assessment and Plan: Monique Redmond is a 62 y.o. female from [place], [place], who is referred to Hepatobiliary Clinic for evaluation of a recent diagnosis of cirrhosis and ascites. 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 #1 Decompensated cirrhosis, attributed to alcohol #2 High-risk alcohol consumption Mrs. Redmond has a recent new diagnosis of cirrhosis with decompensation in the form of ascites. The likely etiology of her liver disease is longstanding heavy alcohol consumption with detailed history in HPI, however we will rule out other etiologies including viral hepatitis B and C and autoimmune hepatitis. We will obtain comprehensive labs today, including MELD labs. We counseled Mrs. Redmond on complete abstinence of alcohol to prevent further progression of liver disease. We discussed recommendation to seek treatment and establish care locally with additional AA attendance. We reviewed that progression of liver disease may prompt consideration for liver transplantation now or in the future, and abstinence and adequate treatment of alcohol use would be necessary for candidacy. ADDENDUM: Labs showed current MELD 3.0 score of 20. #3 Ascites, not currently on diuretics She was found with significant hypokalemia during her recent ED presentation, and is currently taking daily oral potassium supplementation. We will obtain updated labs today. We will also arrange forparacentesis to be performed for diagnostic and therapeutic assessment. If electrolytes are within reason, then we may consider initiating oral diuretics with furosemide and spironolactone. She will meet with our hepatobiliary nurse this afternoon for further counseling on ascites management including sodium restricted diet to less than 2 g per day. ADDENDUM: Potassium level is 3.6. We will plan to complete paracentesis, with subsequent initiationof oral diuretics with furosemide 20 mg and spironolactone 50 mg followed by repeat CMP in 1 week. If able to tolerate without concerns for worsening current hypokalemia for which she is taking oral supplementation, then we would plan to increase the dose as tolerated. #4 Suspected upper GI bleed #5 Anemia She had an acute episode of melena in August 2023, that has since resolved based on report of normal stool. She has not previously undergone EGD, and we will arrange for EGD with anesthesia supportfor screening of varices. #6 Dyspnea In the setting of significant abdominal ascites, she may have a component of hepatic hydrothorax. We will obtain chest x-ray for further evaluation. We will also obtain a transthoracic echocardiogramwith agitated saline study to assess for portopulmonary or hepatopulmonary syndrome. #7 At risk for hepatic encephalopathy She is currently taking MiraLax with 5-6 stools daily. She states stools have recently been hard. She does currently report fatigue and daytime sleepiness, however without overt disturbance or confusion. If mental status worsens then we may also switch to lactulose for further optimization. 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 We will check an AFP. She will need ongoing surveillance with US and AFP every 6 months. #9 Current tobacco use We discussed recommendation for tobacco cessation. She reports cutting back to <0.5 ppd, and with limited desire to continue. We will also offer a referral to the Nicotine Dependence clinic for further counseling. #10 History of colon polyps Her last colonoscopy was performed in 2019 in [place]. I am not able to see this report. She is recommended to follow-up with her PCP for completing surveillance colonoscopy. If she is not able tocomplete this locally, then we can arrange for this to be done at [place]. PATIENT EDUCATION: Ready to learn, no apparent learning barriers were identified; learning preferences include listening. Explained diagnosis and treatment plan; patient expressed understanding of the content. Return to clinic after tests. This patient was staffed with Dr. Morales. Electronically signed by: Katja Umana M.D. Fellow 10/06/2023 12:00 PM TRAFFIC COORDINATOR FIC COORDINATOR * Felipe Morales M.D. - 10/06/2023 11:00 AM CST SUBJECTIVE Supervisory note for Dr. Umana. I interviewed and examined the patient and reviewed the documentation of Dr. Umana in her note today. REASON FOR CONSULT Alcohol-associated cirrhosis. 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 The patient has recently developed ascites, has not had hepatic encephalopathy, has had melena, has not had an upper endoscopy, has prior history of tubular adenoma and tubulovillous adenomas of the colon. She has been abstinent from alcohol since this diagnosis was made, except 1 paracentesis on September 16 with 8 L of fluid removed. She has had progressive weakness, muscle loss, lack endurance. Does smoke cigarettes. Prior surgery includes hysterectomy. No family history of liver disease. OBJECTIVE PHYSICAL EXAMINATION General: Appears sarcopenic. Eyes: Anicteric. Skin: Mild jaundice. Does have spider angiomata. Heart: A 1-2/6 systolic murmur at the upper sternal border. Lungs: Diminished breath sounds in the right base. Abdomen: Distended and tense. Lower Extremities : No significant edema. ASSESSMENT / PLAN #1 Alcohol-associated cirrhosis, decompensated We will plan to update her MELD labs today and general labs. #2 At risk for hepatocellular carcinoma She has recently had a CT scan with contrast. We will add an AFP to lab work. #3 At risk for esophageal varices Likely, her bleeding is from portal hypertensive gastropathy. She will need an upper endoscopy. I would only place bands if high-risk stigmata are noted. #4 Ascites Needs a prompt diagnostic and therapeutic paracentesis. After we get labs back, we will plan to start diuretics as long as those are satisfactory. #5 Shortness of breath This is likely related to significant volume of ascites. However, we will perform chest x-ray and an echocardiogram. We will have her do a hepatopulmonary syndrome and portopulmonary hypertension. #6 History of colon polyps Eventually, will need a colonoscopy, but that can be performed later. #7 Severe protein-calorie malnutrition We discussed the importance of protein in her diet of 1.2 to 1.5 g/kg of bodyweight per day. Felipe Morales M.D. CT CT Job ID: [id number] FIC COORDINATOR documented in this encounter Plan of Treatment Upcoming Encounters Date Type Department Care Team (Late st Contact Info) Description 12/30/2023 3:15 PM CDT Appointment Department of Radiology, [facility], in [place], [place] [address] [place] [phone] Katja Umana M.D. [address] [place] [phone] 01/19/2024 10:00 AM CDT Telemedicine Department of Nutrition and Diabetes Education in [place], [place] [address] [place] [phone] Katja Umana M.D. [address] [place] [phone] Taty Cunningham M.S., RDN, LD [address] [place] [phone] documented as of this encounter Results * US Paracentesis with Imaging Guidance (10/08/2023 12:57 PM TRAFFIC COORDINATOR) Anatomical Region Laterality Modality Abdomen, Ultrasound RST LOS, Ultrasound ARZ LOS, Procedure FLA LOS, Abdominal FLA LOS, Procedural, Procedural NWWI LOS N/A Ultrasound Impressions 10/08/2023 1:24 PM TRAFFIC COORDINATOR Ultrasound-guided paracentesis. EP Narrative 10/08/2023 1:24 PM TRAFFIC COORDINATOR EXAM: US PARACENTESIS WITH IMAGING GUIDANCE PRE-PROCEDURE: [...] IMPRESSION: Ultrasound-guided paracentesis. EP Katja Umana M.D. [facility] US PROCEDURES * (TTE) 2D ECHO DOPPLER COLOR AND CONTRAST (10/07/2023 11:01 AM TRAFFIC COORDINATOR) [facility] Ejection Fraction 68 MC CV EIMS Proximal [...] Region Laterality Modality Echocardiography 10/07/2023 9:54 AM TRAFFIC COORDINATOR Impressions 10/07/2023 11:02 AM TRAFFIC COORDINATOR Agitated saline contrast administered. Moderate intrapulmonary shunt. [...] the Order-Level Documents. Narrative 10/07/2023 11:02 AM TRAFFIC COORDINATOR For the complete report, see the Order-Level [...] and Lateral 2 Views (10/06/2023 1:32 PM TRAFFIC COORDINATOR) Anatomical Region Laterality Modality Chest, Thoracic RST LOS, Tho racic ARZ LOS, Thoracic FLA LOS N/A Digital Radiography Impressions 10/06/2023 1:35 PM TRAFFIC COORDINATOR Shallow inspiration. New focal predominantly linear opacity [...] bilateral apical scarring. Narrative 10/06/2023 1:35 PM TRAFFIC COORDINATOR EXAM: ??DX CHEST AP OR PA AND LATERAL 2 VIEWS Procedure Note sOmin Pineda M.D. - 10/06/2023 EXAM: DX CHEST [...] Mild bilateral apical scarring. Katja Umana M.D. [facility] DIAGNOSTIC IMAGI NG PROCEDURES * (ABNORMAL) Autoimmune Liver Disease Panel (10/06/2023 12:17 PM TRAFFIC COORDINATOR) Mitochondrial Ab, M2, S <0.1 <0.1 (Negative) U 10/06/2023 9:06 PM TRAFFIC COORDINATOR [facility] Antinuclear Ab, HEp-2 Substrate, S Positive 1:320(A) <1:80 (Negative) 10/06/2023 10:15 PM TRAFFIC COORDINATOR [facility] Comment: ----ADDITIONAL INFORMATION---- Method: Immunofluorescence using HEp-2 cellular substrate. NEGIN Titer: 1:320 10/06/2023 10:15 PM TRAFFIC COORDINATOR SDS NEGIN Pattern: Speckled 10/06/2023 10:15 PM TRAFFIC COORDINATOR [facility] Smooth Muscle Ab Screen, S Negative Negative 10/07/2023 11:57 AM TRAFFIC COORDINATOR [facility] Comment: Negative: No further testing will be performed ----ADDITIONAL INFORMATION---- This test was developed and its performance characteristics determined by [facility] in a manner consistent with CLIA requirements. This test has not been cleared or approved by the U.S. Food and Drug Administration. Blood (Blood, Venous) 10/06/2023 12:17 PM TRAFFIC COORDINATOR 10/06/2023 4:11 PM TRAFFIC COORDINATOR Katja Umana M.D. LAB BLOOD ADD-ON [facility] [address] [place] [address] [facility] [address] [place] [address] [facility] [address] [place] [address] [place] [address] * Hepatitis A IgG Ab, Serum (10/06/2023 12:17 PM TRAFFIC COORDINATOR) Hepatitis A IgG Ab, S Positive 10/06/2023 8:53 PM TRAFFIC COORDINATOR [facility] Comment: Result indicates immunity to hepatitis A infection from either vaccination or past exposure to hepatitis A. False-positive results may be observed in patients with CMV antibodies or heterophilic antibodies. ?? ----REFERENCE VALUE---- Unvaccinated: Negative Vaccinated: Positive Blood (Blood, Venous) 10/06/2023 12:17 PM TRAFFIC COORDINATOR 10/06/2023 3:57 PM TRAFFIC COORDINATOR Katja Umana M.D. LAB MICROBIOLOGY - B LOOD ORDERABLES Performing Organization Address City/[facility]/ZIP Co de Phone Number [facility] [address] [place] [address] [facility] [address] [place] [address] * HBc Total Ab, Serum (10/06/2023 12:17 PM TRAFFIC COORDINATOR) Pathologist [facility] HBc Total Ab, S Negative Negative 10/06/2023 9:13 PM TRAFFIC COORDINATOR [facility] Blood (Blood, Venous) 10/06/2023 12:17 PM TRAFFIC COORDINATOR 10/06/2023 3:57 PM TRAFFIC COORDINATOR Katja Umana M.D. LAB MICROBIOLOGY - B LOOD ORDERABLES [facility] [address] [place] [address] [facility] [address] [place] [address] * Hepatitis B Surface Antigen (10/06/2023 12:17 PM TRAFFIC COORDINATOR) HBs Antigen, S Negative Negative 10/06/2023 8:55 PM TRAFFIC COORDINATOR [facility] Blood (Blood, Venous) 10/06/2023 12:17 PM TRAFFIC COORDINATOR 10/06/2023 3:57 PM TRAFFIC COORDINATOR Katja Umana M.D. LAB MICROBIOLOGY - B LOOD ORDERABLES [facility] [address] [place] [address] [facility] [address] [place] [address] * HBs Antibody, Serum (10/06/2023 12:17 PM TRAFFIC COORDINATOR) HBs Antibody, S Negative 10/06/2023 9:14 PM TRAFFIC COORDINATOR [facility] Comment: Patient is presumed to be not immune to infection with HBV. ----REFERENCE VALUE---- Unvaccinated: Negative Vaccinated: Positive HBs Antibody, Quantitative, S <5.0 mIU/mL 10/06/2023 9:14 PM TRAFFIC COORDINATOR [facility] Comment: ----REFERENCE VALUE---- Unvaccinated: <5.0 Vaccinated: >=12.0 Blood (Blood, Venous) 10/06/2023 12:17 PM TRAFFIC COORDINATOR 10/06/2023 3:57 PM TRAFFIC COORDINATOR Katja Umana M.D. LAB MICROBIOLOGY - B LOOD ORDERABLES Performing Organization Address [facility] Co de Phone Number [place] [address] [place] [address] [facility] [address] [place] [address] * HCV Ab Scrn w/Reflex to HCV PCR, Serum (10/06/2023 12:17 PM TRAFFIC COORDINATOR) HCV Ab Screen, S Negative Negative 10/06/2023 9:12 PM TRAFFIC COORDINATOR [facility] Comment:Xkjayx-ou-grspvm rat io is <1.00. Blood (Blood, Venous) 10/06/2023 12:17 PM TRAFFIC COORDINATOR 10/06/2023 3:57 PM TRAFFIC COORDINATOR Katja Umana M.D. LAB MICROBIOLOGY - B LOOD ORDERABLES [facility] [address] [place] [address] [facility] [address] [place] [address] * AFP (Alpha-Fetoprotein), Tumor Marker (10/06/2023 12:17 PM TRAFFIC COORDINATOR) Alpha-Fetoprotein, Tumor Marker, S 7.8 ng/mL 10/07/2023 3:00 PM TRAFFIC COORDINATOR [facility] Comment: ----REFERENCE VALUE---- <8.4 Reference values are for non- subjects only; production of AFP elevates values in women. ----ADDITIONAL INFORMATION---- In this Mayda Odessa assay AFP concentrations are <8.4 ng/mL for [...] method is an immunoenzymatic assay manufactured by [employer]. and is tested on the Feng[employer] Unicel DxI 800. Values obtained with different assay methods or kits may be different and cannot be used interchangeably. ? Test results cannot be interpreted as absolute evidence of the presence or absence of malignant disease. Alpha-Fetoprotein values are not interpretable in females for the investigation of malignant disease. Blood (Blood, Venous) 10/06/2023 12:17 PM TRAFFIC COORDINATOR 10/07/2023 1:04 PM TRAFFIC COORDINATOR Katja Umana M.D. LAB BLOOD ADD-ON [facility] [address] [place] [address] [facility] [address] [place] [address] * (ABNORMAL) Prothrombin Time (PT) (10/06/2023 12:17 PM TRAFFIC COORDINATOR) Pathologist [facility] Prothrombin Time, P 19.6(H) 9.4 - 12.5 sec 10/06/2023 12:47 PM TRAFFIC COORDINATOR DTL INR 1.8 0.9 - 1.1 10/06/2023 12:47 PM TRAFFIC COORDINATOR D[facility] Comment: ----ADDITIONAL INFORMATION---- Standard intensity warfarin therapeutic range: 2.0 to 3.0 ?? High intensity warfarin therapeutic range: 2.5 to 3.5 Blood (Blood, Venous) 10/06/2023 12:17 PM TRAFFIC COORDINATOR 10/06/2023 12:27 PM TRAFFIC COORDINATOR Katja Umana M.D. LAB BLOOD ADD-ON [facility] [address] [place] [address], [facility] [[email or web address]] [facility] [address] [place] [address] * (ABNORMAL) Comprehensive Metabolic Panel (10/06/2023 12:17 PM TRAFFIC COORDINATOR) [facility] Potassium, S 3.6 3.6 - 5.2 mmol/L 10/06/2023 1:02 PM TRAFFIC COORDINATOR DTL Sodium, S 134(L) 135 - 145 mmol/L 10/06/2023 1:02 PM TRAFFIC COORDINATOR DTL Chloride, S 103 98 - 107 mmol/L 10/06/2023 1:02 PM TRAFFIC COORDINATOR DTL Bicarbonate, S 24 22 - 29 mmol/L 10/06/2023 1:02 PM TRAFFIC COORDINATOR DTL Anion Gap 7 7 - 15 10/06/2023 1:02 PM TRAFFIC COORDINATOR DTL BUN (Blood Urea Nitrogen), S 5(L) 6 - 21 mg/dL 10/06/2023 1:02 PM TRAFFIC COORDINATOR DTL Creatinine 0.48(L) 0.59 - 1.04 mg/dL 10/06/2023 1:02 PM TRAFFIC COORDINATOR DTL Estimated GFR (eGFR) >90 >=60 mL/min/BS A 10/06/2023 1:02 PM TRAFFIC COORDINATOR DTL Comment: Estimated GFR calculated using the 2020 CKD_EPI creatinine equation. Calcium, Total, S 8.1(L) 8.8 - 10.2 mg/dL 10/06/2023 1:02 PM TRAFFIC COORDINATOR DTL Glucose, S 135 70 - 140 mg/dL 10/06/2023 1:02 PM TRAFFIC COORDINATOR DTL Protein, Total, S 7.3 6.3 - 7.9 g/dL 10/06/2023 1:02 PM TRAFFIC COORDINATOR DTL Albumin, S 2.9(L) 3.5 - 5.0 g/dL 10/06/2023 1:02 PM TRAFFIC COORDINATOR DTL Aspartate Aminotransferase (AST), S 95(H) 8 - 43 U/L 10/06/2023 1:02 PM TRAFFIC COORDINATOR DTL Alkaline Phosphatase, S 193(H) 35 - 104 U/L 10/06/2023 1:02 PM TRAFFIC COORDINATOR DTL Alanine Aminotransferase (ALT), S 23 7 - 45 U/L 10/06/2023 1:02 PM TRAFFIC COORDINATOR DTL Bilirubin, Total, S 3.0(H) 0.0 - 1.2 mg/dL 10/06/2023 1:02 PM TRAFFIC COORDINATOR DTL Blood (Blood, Venous) 10/06/2023 12:17 PM TRAFFIC COORDINATOR 10/06/2023 12:43 PM TRAFFIC COORDINATOR Katja Umana M.D. LAB BLOOD ADD-ON [address] [address], [facility] [address] [place] [address] * (ABNORMAL) CBC with Differential, Blood (10/06/2023 12:17 PM TRAFFIC COORDINATOR) Hemoglobin 9.4(L) 11.6 - 15.0 g/dL 10/06/2023 12:37 PM TRAFFIC COORDINATOR DTL Hematocrit 28.4(L) 35.5 - 44.9 % 10/06/2023 12:37 PM TRAFFIC COORDINATOR DTL Erythrocytes 2.74(L) 3.92 - 5.13 x10(12)/L 10/06/2023 12:37 PM TRAFFIC COORDINATOR DTL MCV 103.6(H) 78.2 - 97.9 fL 10/06/2023 12:37 PM TRAFFIC COORDINATOR DTL RBC Distrib Width 13.8 12.2 - 16.1 % 10/06/2023 12:37 PM TRAFFIC COORDINATOR DTL Platelet Count 163 157 - 371 x10(9)/L 10/06/2023 12:37 PM TRAFFIC COORDINATOR DTL Leukocytes 7.0 3.4 - 9.6 x10(9)/L 10/06/2023 12:37 PM TRAFFIC COORDINATOR DTL Neutrophils 4.66 1.56 - 6.45 x10(9)/L 10/06/2023 12:37 PM TRAFFIC COORDINATOR [facility] Lymphocytes 1.77 0.95 - 3.07 x10(9)/L 10/06/2023 12:37 PM TRAFFIC COORDINATOR DTL Monocytes 0.53 0.26 - 0.81 x10(9)/L 10/06/2023 12:37 PM TRAFFIC COORDINATOR DTL Eosinophils 0.03 0.03 - 0.48 x10(9)/L 10/06/2023 12:37 PM TRAFFIC COORDINATOR DTL Basophils <0.03 0.01 - 0.08 x10(9)/L 10/06/2023 12:37 PM TRAFFIC COORDINATOR DTL Blood (Blood, Venous) 10/06/2023 12:17 PM TRAFFIC COORDINATOR 10/06/2023 12:28 PM TRAFFIC COORDINATOR Katja Umana M.D. LAB BLOOD ADD-ON [facility] [address] [place] [address], [facility] [[email or web address]] DTL [facility] [address] [place] [address] [facility] [address] [place] [address] documented in this encounter Visit Diagnoses Diagnosis Ascites Alcoholic Cirrhosis Of Liver With Ascites (HCC) Alcoholic Cirrhosis Of Liver With Ascites (HCC) Alcoholic Cirrhosis Of Liver With Ascites (HCC) Alcoholic Cirrhosis Of Liver With Ascites (HCC) documented in this encounter
--- OUTSIDE RECORDS SUMMARY | 2023-12-23 14:23 | XMS_ITS | Encounter Summary ---
Author Name Unknown Organization [facility] Address [address] [place] [address] Care Team Providers Care Electric Stop Installer Name Role Phone Unavailable Primary Care Provider Unavailabl e Reason for Referral * Outpatient (Routine) - Closed Specialty Diagnoses / Procedures Referred By Contac t Referred To Contact Diagnoses Alcoholic Cirrhosis Of Liver With Ascites (HCC) Procedures DX Chest AP or PA and Lateral 2 Views Katja Umana M.D. [address] [place] [phone] [facility] Referral ID Status Reason Start Date Expiration Date Visits Re quested Visits Authorized [id number] Closed 10/06/2023 10/05/2024 1 1 HAND ENGINEER Reason for Visit * Outpatient (Routine) - Closed Specialty Diagnoses / Procedures Referred By Dotty oakes Referred To Contact Diagnoses Alcoholic Cirrhosis Of Liver With Ascites (HCC) Procedures DX Chest AP or PA and Lateral 2 Views Katja Umana M.D. 200 [place] [address] [facility] Referral ID Status Reason Start Date Expiration Date Visits Re quested Visits Authorized [id number] Closed 10/06/2023 10/05/2024 1 1 Encounter Details Date Type Department Care Team (Latest Contact Info) Description 10/06/2023 12:45 PM DECKHAND ENGINEER - 10/06/2023 11:59 PM DECKHAND ENGINEER Hospital Encounter Department of [facility], [facility] in [place], [place] [address] [place] [phone] Katja Umana M.D. [address] [place] [phone] Alcoholic Cirrhosis Of Liver With Ascites (HCC) [...] Sex Assigned at Female 10/06/2023 10:50 AM DECKHAND ENGINEER Gender Identity Female 10/06/2023 10:50 AM DECKHAND ENGINEER Sexual Orientation Straight 10/06/2023 10 :50 AM DECKHAND ENGINEER documented as of this encounter Medications at [...] Department of Radiology, [facility], in [place], [place] [address] [place] [phone] Katja Umana M.D. [address] [place] [phone] 01/19/2024 10:00 AM CDT Telemedicine Department of Nutrition and Diabetes Education in [place], [place] [address] [place] [phone] Katja Umana M.D. [address] [place] [phone] Taty Cunningham M.S., RDN, LD [address] [place] [phone] documented as of this encounter Procedures Procedure Name Priority Date/Time Associated Diagnosis Comments DX CHEST AP OR PA AND LATERAL 2 VIEWS RAD - Routine (most inpatients and all outpatients) 10/06/2023 1:32 PM DECKHAND ENGINEER Alcoholic Cirrhosis Of Liver With Ascites (HCC) documented in this encounter Results * DX Chest AP or PA and Lateral 2 Views (10/06/2023 1:32 PM DECKHAND ENGINEER) Anatomical Region Laterality Modality Chest, Thoracic RST LOS, Tho racic ARZ LOS, Thoracic FLA LOS N/A Digital Radiography Impressions 10/06/2023 1:35 PM DECKHAND ENGINEER Shallow inspiration. New focal predominantly linear opacity [...] bilateral apical scarring. Narrative 10/06/2023 1:35 PM DECKHAND ENGINEER EXAM: ??DX CHEST AP OR PA AND [...] Umana M.D. IMG DIAGNOSTIC IMAGI NG PROCEDURES documented in this encounter Visit Diagnoses Diagnosis Alcoholic Cirrhosis Of Liver With Ascites (HCC) documented in this encounter
--- OUTSIDE RECORDS SUMMARY | 2023-12-23 14:23 | XMS_ITS | Encounter Summary ---
Author Name Unknown Organization [facility] Address [address] [place] [address] Care Team Providers Care Rn Security Name Role Phone Unavailable Primary Care Provider Unavailabl e Reason for Referral * Outpatient (Routine) - Closed Specialty Diagnoses / Procedures Referred By Dotty oakes Referred To Contact Diagnoses Alcoholic Cirrhosis Of Liver With Ascites (HCC) Procedures EGD (EsophagoGastroDuodenoscopy) Restricted Katja Umana M.D. 200 [place] [phone] [facility] Referral ID Status Reason Start Date Expiration Date Visits Re quested Visits Authorized [id number] Closed 10/06/2023 10/05/2024 1 1 LOGY PATIENT NAVIGATOR Reason for Visit * Outpatient (Routine) - Closed Specialty Diagnoses / Procedures Referred By Dotty oakes Referred To Contact Diagnoses Alcoholic Cirrhosis Of Liver With Ascites (HCC) Procedures EGD (EsophagoGastroDuodenoscopy) Restricted Katja Umana M.D. 200 [place] [phone] [facility] Referral ID Status Reason Start Date Expiration Date Visits Re quested Visits Authorized [id number] Closed 10/06/2023 10/05/2024 1 1 Encounter Details Date Type Department Care Team (Latest Contact Info) Description 10/08/2023 1:09 PM ONCOLOGY PATIENT NAVIGATOR - 10/08/2023 4:27 PM ONCOLOGY PATIENT NAVIGATOR Hospital Encounter Division of Gastroenterology in [place], [place] [address] [place] [phone] Katja Umana M.D. [address] [place] [phone] Alcoholic Cirrhosis Of Liver With Ascites (HCC) [...] Sex Assigned at Female 10/06/2023 10:50 AM ONCOLOGY PATIENT NAVIGATOR Gender Identity Female 10/06/2023 10:50 AM ONCOLOGY PATIENT NAVIGATOR Sexual Orientation Straight 10/06/2023 10 :50 AM ONCOLOGY PATIENT NAVIGATOR documented as of this encounter Last Filed Vital Signs Vital Sign Reading Time Taken Comments Blood Pressure 120/74 10/08/2023 4:11 PM ONCOLOGY PATIENT NAVIGATOR Pulse 112 10/08/2023 4:16 PM ONCOLOGY PATIENT NAVIGATOR Temperature 37.1 ??C (98.8 ??F) 10/08/2023 3:49 PM CS T Respiratory Rate 24 10/08/2023 4:16 PM ONCOLOGY PATIENT NAVIGATOR Oxygen Saturation 93% 10/08/2023 4:16 PM ONCOLOGY PATIENT NAVIGATOR Inhaled Oxygen Concentration - - Weight 57.2 kg (126 lb) 10/08/2023 2:23 PM ONCOLOGY PATIENT NAVIGATOR Height 169.1 cm (5' 6.58) 10/08/2023 2:23 PM CS T Body Mass Index 19.99 10/08/2023 2:23 PM ONCOLOGY PATIENT NAVIGATOR documented in this encounter Discharge Instructions * Discharge Instructions* Refugio Martinez R.N. - 10/08/2023 4:02 PM ONCOLOGY PATIENT NAVIGATOR Full Liquid Diet for today (10/08) With a full liquid diet, you can have foods and fluids that are liquid or partly liquid at room temperature. Some foods may also be blended to a very smooth or liquid texture. You cannot eat solid foods while on this diet. Examples include: Fruit juice, with or without pulp. Tea, with or without milk or cream. Coffee, with or without milk or cream. Cream soups, such as tomato, blended smooth. Pudding. Milk and milkshakes. Hot chocolate. Yogurt and yogurt smoothies without pieces of fruit, seeds or nuts. Ice cream and sherbet. Vegetable juices. Protein drinks, such as Boost??? and Ensure???. Iced fruit, such as a Popsicle???, without pieces of fruit, seeds or nuts. Cooked cereal, such as Cream of Wheat??? and oatmeal with a creamy texture. Sugar. Salt and pepper, mild seasonings. Soft Diet for tomorrow (10/09), then advance diet as tolerated With a soft diet, you can have whole soft foods that are lightly seasoned. Foods in the soft diet are moderately low in fiber which makes it easier to digest. Examples of liquids and foods that can be used in this diet include: Broth, bouillon, strained cream soup, such as cream of potato and tomato, mildly seasoned soup, such as chicken noodle. All beverages. Moist, tender meat, fish or poultry, eggs, soft-moist casseroles that are easily cut up into small pieces, pasta with tender meat sauce or smooth marinara sauce, lasagna that is tender, pot pie, macaroni and cheese, ravioli, stroganoff with tender meat. Oil, butter, margarine, cream, gravy, salad dressing, creamy peanut butter. Milk, milk beverages, yogurt without seeds and nuts, cocoa, pudding, cottage cheese, soft cheeses. Breads, rolls, biscuits, muffins, hot and cold cereals, white, refined wheat crackers with no seeds, nuts, hard fruit pieces, soft breadsticks, pancake, Croatian toast, potatoes, white rice. Soft, cooked vegetables, white or sweet potatoes without skin, Croatian fries, hash browns, vegetablejuices. Cooked or canned fruit. Gelatin, ice cream without nuts, pudding, cake, tender pies, cookies, bars without nuts, seeds and coconut, fruit ice. Sugar, honey, jelly, candy without nuts or coconut. Supplements without fiber. Mild seasonings and mild condiments. LOGY PATIENT NAVIGATOR documented in this encounter Medications at Time [...] 3:15 PM CDT Appointment Department of Radiology, [facility], in [place], [place] [address] [place] [phone] Katja Umana M.D. [address] [place] [phone] 01/19/2024 10:00 AM CDT Telemedicine Department of Nutrition and Diabetes Education in [place], [place] [address] [place] [phone] Katja Umana M.D. [address] [place] [phone] Taty Cunningham M.S., RDN, LD [address] [place] [phone] documented as of this encounter Procedures Procedure Name Priority Date/Time Associated Diagnosis Comments EGD (ESOPHAGOGASTRODUODE NOSCOPY) RESTRICTED Routine 10/08/2023 3:17 PM ONCOLOGY PATIENT NAVIGATOR Alcoholic Cirrhosis Of Liver With Ascites (HCC) UPPER GI ENDOSCOPY Routine 10/08/2023 3: 17 PM ONCOLOGY PATIENT NAVIGATOR Alcoholic Cirrhosis Of Liver With Ascites (HCC) documented in this encounter Results * Upper GI Endoscopy (10/08/2023 3:17 PM ONCOLOGY PATIENT NAVIGATOR) 10/08/2023 3:17 PM ONCOLOGY PATIENT NAVIGATOR [facility]ressions [facility] 10/08/2023 3:53 PM ONCOLOGY PATIENT NAVIGATOR Post-op Diagnoses: ? 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 ? - Mild portal hypertensive gastropathy. ? - Normal examined duodenum. ? - No specimens collected. Narrative [facility] - 10/08/2023 3:53 PM ONCOLOGY PATIENT NAVIGATOR [facility] 6 GI GI Patient Name: Monique [...] Katja Umana M.D. GI PROCEDURE ORDERAB LES [facility] NA documented in this encounter Visit Diagnoses Diagnosis Alcoholic Cirrhosis Of Liver With Ascites (HCC) documented in this encounter Administered Medications documented in this encounter Active and Recently Administered Medications Times are shown in ONCOLOGY PATIENT NAVIGATOR. Continuous Medication Order 10/06/2023 10/07/2023 10/08/2023 Lactated Ringer's 50 mL/hr, intravenous, Continuous, Starting on Wed10/08/23 at 1600, PACU & Post-Op 1600 (Due) PRN Medication Order 10/06/2023 10/07/2023 10/08/2023 fentaNYL injection 25 mcg (SUBLIMAZE) 25 mcg, intravenous, Every 2 min PRN, moderate pain or score 4-6 of 10, severe pain or score 7-10 of 10, Starting on Wed10/08/23 at 1552, PACU (only), Up to maximum total dose of 200 mcg granisetron (PF) injection 1 mg (KYTRIL) 1 mg, intravenous, Once as needed, nausea, vomiting, Starting on Wed10/08/23 at 1552, For 1 dose, PACU (only), If patient does not respond to ondansetron or haloperidol. (order of antiemetic administration - ondansetron then haloperidol then granisetron) documented in this encounter
--- OUTSIDE RECORDS SUMMARY | 2023-12-23 14:23 | XMS_ITS | Encounter Summary ---
Author Name Unknown Organization [facility] Address [address] [place] [address] Care Team Providers Care Handyperson Name Role Phone Unavailable Primary Care Provider Unavailabl e Encounter Details Date Type Department Care Team (Late Contact Info) Description 09/01/2023 Clinical Communication Division of Colon and Rectal Surgery in [place], [place] [address] [place] [phone] Prescheduling, Provider Social History Tobacco Use Types Packs/Day Years Used Date Smoking Tobacco: Every Day Nutrition Answer Date Recorded Nutrition: EVOO Fat Source Unknown 11/10 Nutrition: Servings of Fruits/Vegetables per Day Not on file 2020 Dental Answer Date Recorded Dental: Regular Dentist Unknown 11/10/19 21 Sex and Gender Information Value Date Recorded Sex Assigned at Female 10/06/2023 10:50 AM VALIDATION CONSULTANT Gender Identity Female 10/06/2023 10:50 AM VALIDATION CONSULTANT Sexual Orientation Straight 10/06/2023 10 :50 AM VALIDATION CONSULTANT documented as of this encounter Plan of Treatment Upcoming Encounters Date Type Department Care Team (Late st Contact Info) Description 12/30/2023 3:15 PM CDT Appointment Department of Radiology, [facility], in [place], [place] [address] [place] [phone] Katja Umana M.D. [address] [place] [phone] 01/19/2024 10:00 AM CDT Telemedicine Department of Nutrition and Diabetes Education in [place], [place] [address] [place] [phone] Katja Umana M.D. [address] [place] [phone] Taty Cunningham M.S., RDN, LD [address] [place] [phone] documented as of this encounter Visit Diagnoses Not on filedocumented in this encounter
--- OUTSIDE RECORDS SUMMARY | 2023-12-23 14:23 | XMS_ITS | Encounter Summary ---
Author Name Unknown Organization [facility] Address [address] [place] [address] Care Team Providers Care Star Route Mail Driver Name Role Phone Unavailable Primary Care Provider Unavailabl e Reason for Referral * Outpatient (Routine) - Closed Specialty Diagnoses / Procedures Referred By Contac t Referred To Contact Diagnoses Alcoholic Cirrhosis Of Liver With Ascites (HCC) Procedures Echo Transthoracic (TTE) Katja Umana M.D. [address] [place] [phone] [facility] Referral ID Status Reason Start Date Expiration Date Visits Re quested Visits Authorized [id number] Closed 10/06/2023 10/05/2024 1 1 INIST GENERAL Reason for Visit * Outpatient (Routine) - Closed Specialty Diagnoses / Procedures Referred By Dotty oakes Referred To Contact Diagnoses Alcoholic Cirrhosis Of Liver With Ascites (HCC) Procedures Echo Transthoracic (TTE) Katja Umana M.D. 200 [place] [phone] [facility] Referral ID Status Reason Start Date Expiration Date Visits Re quested Visits Authorized [id number] Closed 10/06/2023 10/05/2024 1 1 Encounter Details Date Type Department Care Team (Latest Contact Info) Description 10/07/2023 9:50 AM MACHINIST GENERAL - 10/07/2023 11:59 PM MACHINIST GENERAL Hospital Encounter Department of Cardiovascular Diseases in [place], [place] [address] [place] [phone] Katja Umana M.D. [address] [place] [phone] Alcoholic Cirrhosis Of Liver With Ascites (HCC) [...] Sex Assigned at Female 10/06/2023 10:50 AM MACHINIST GENERAL Gender Identity Female 10/06/2023 10:50 AM MACHINIST GENERAL Sexual Orientation Straight 10/06/2023 10 :50 AM MACHINIST GENERAL documented as of this encounter Medications at [...] Department of Radiology, [facility], in [place], [place] [address] [place] [phone] Katja Umana M.D. [address] [place] [phone] 01/19/2024 10:00 AM CDT Telemedicine Department of Nutrition and Diabetes Education in [place], [place] [address] [place] [phone] Katja Umana M.D. [address] [place] [phone] Taty Cunningham M.S., RDN, LD [address] [place] [phone] documented as of this encounter Procedures Procedure Name Priority Date/Time Associated Diagnosis Comments (TTE) 2D ECHO DOPPLER COLOR AND CONTRAST Routine 10/07/2023 11:01 AM MACHINIST GENERAL Alcoholic Cirrhosis Of Liver With Ascites (HCC) documented in this encounter Results * (TTE) 2D ECHO DOPPLER COLOR AND CONTRAST (10/07/2023 11:01 AM MACHINIST GENERAL) Ejection Fraction 68 MC CV EIMS Proximal [...] Region Laterality Modality Echocardiography 10/07/2023 9:54 AM MACHINIST GENERAL Impressions 10/07/2023 11:02 AM MACHINIST GENERAL Agitated saline contrast administered. Moderate intrapulmonary shunt. [...] the Order-Level Documents. Narrative 10/07/2023 11:02 AM MACHINIST GENERAL For the complete report, see the Order-Level [...] Documents. Katja Umana M.D. CV ECHO PROCEDURES documented in this encounter Visit Diagnoses Diagnosis Alcoholic Cirrhosis Of Liver With Ascites (HCC) documented in this encounter Administered Medications Inactive Administered Medications - up to 3 most recent administrations Medication Order MAR Action Action Date Dose Rate Site NaCl 0.9% bacteriostatic 0.9 % injection 30 mL 30 mL, intravenous, As needed, for agitated saline (bubble) studies, Starting on Dasia 10/07/23 at 1041, Intraprocedure - Diagnostic, See Dennys. Given 10/07/2023 10:53 AM MACHINIST GENERAL 30 mL sodium chloride 0.9 % injection 10 mL 10 mL, intravenous, As needed, line care, Starting on Dasia 10/07/23 at 1037, Prior to and following infusion and between multiple consecutive infusions: sodium chloride 0.9 % injection Given 10/07/2023 10:53 AM MACHINIST GENERAL 10 mL documented in this encounter
--- OUTSIDE RECORDS SUMMARY | 2023-12-23 14:23 | XMS_ITS | Encounter Summary ---
Author Name Unknown Organization [facility] Address [address] [place] [address] Care Team Providers Care Vp Rheumatology Name Role Phone Unavailable Primary Care Provider Unavailabl e Reason for Visit * Reason Comments Nurse Visit Education Cirrhosis Encounter Details Date Type Department Care Team ([facility] st Contact Info) Description 10/06/2023 2:00 PM COMPUTER PROGRAMMER CHIEF Education Division of Gastroenterology in [place], [place] [address] [place] [phone] Ebony Back M.D. [address] [place] [phone] Leatha Reid R.N. [address] [place] [phone] Ascites; Alcoholic Cirrhosis Of Liver With Ascites [...] Sex Assigned at Female 10/06/2023 10:50 AM COMPUTER PROGRAMMER CHIEF Gender Identity Female 10/06/2023 10:50 AM COMPUTER PROGRAMMER CHIEF Sexual Orientation Straight 10/06/2023 10 :50 AM COMPUTER PROGRAMMER CHIEF documented as of this encounter Progress Notes * Leatha Reid R.N. - 10/06/2023 2:00 PM CST Education provided on cirrhosis, portal hypertension, hepatic encephalopathy, ascites. See Education History Report within medical record for more details. Timo present. Prefers labs at [facility], if needed. UTER PROGRAMMER CHIEF documented in this encounter Plan of Treatment Upcoming Encounters Date Type Department Care Team (Late st Contact Info) Description 12/30/2023 3:15 PM CDT Appointment Department of Radiology, [facility], in [place], [place] [address] [place] [phone] Katja Umana M.D. [address] [place] [phone] 01/19/2024 10:00 AM CDT Telemedicine Department of Nutrition and Diabetes Education in [place], [place] [address] [place] [phone] Katja Umana M.D. [address] [place] [phone] Taty Cunningham M.S., RDN, LD [address] [place] [phone] documented as of this encounter Visit Diagnoses Diagnosis Ascites Alcoholic Cirrhosis Of Liver With Ascites (HCC) documented in this encounter
--- OUTSIDE RECORDS SUMMARY | 2023-12-23 14:23 | XMS_ITS | Encounter Summary ---
Author Name Unknown Organization [facility] Address [address] [place] [address] Care Team Providers Care Citizenship Instructor Name Role Phone Unavailable Primary Care Provider Unavailabl e Reason for Referral * Specialty Diagnoses / Procedures Referred By Contlulu t Referred To Contact Ebony Back M.D. [address] [place] [phone] [facility] Referral ID Status Reason Start Date Expiration Date Visits Re quested Visits Authorized Scheduling Instructions Schedule after GIH consult GY PROJECTS LEAD * Outpatient (Routine) - Closed Specialty Diagnoses / Procedures Referred By Contact Referred To Contact Gastroenterology and Hepatology Diagnoses Ascites Alcoholic Cirrhosis Of Liver With Ascites (HCC) Ebony Back M.D. 200 [place] [phone] [facility] Referral ID Status Reason Start Date Expiration Date Visits Re quested Visits Authorized [id number] Closed 10/05/2023 04/05/2025 [address] Morales agreed to see GY PROJECTS LEAD Encounter Details Date Type Department Care Team (Late st Contact Info) Description 10/05/2023 Orders Only Department of Oncology in [place], [place] [address] [place] [phone] Ebony Back M.D. [address] [place] [phone] Ascites (Primary Dx); Alcoholic Cirrhosis Of Liver [...] Sex Assigned at Female 10/06/2023 10:50 AM ENERGY PROJECTS LEAD Gender Identity Female 10/06/2023 10:50 AM ENERGY PROJECTS LEAD Sexual Orientation Straight 10/06/2023 10 :50 AM ENERGY PROJECTS LEAD documented as of this encounter Plan of Treatment Upcoming Encounters Date Type Department Care Team (Late st Contact Info) Description 12/30/2023 3:15 PM CDT Appointment Department of Radiology, [facility], in [place], [place] [address] [place] [phone] Katja Umana M.D. [address] [place] [phone] 01/19/2024 10:00 AM CDT Telemedicine Department of Nutrition and Diabetes Education in [place], [place] [address] [place] [phone] Katja Umana M.D. [address] [place] [phone] Taty Cunningham M.S., RDN, LD [address] [place] [phone] Scheduled Referrals Name Type Priority Associated Diagnoses Order Schedule Gastroenterology and Hepatology - Hepatology consult (clinic) Outpatient Referral Routine Ascites Alcoholic Cirrhosis Of Liver With Ascites (HCC) Expected: 10/06/2023 (Approximate), Expires: 01/03/2025 Nurse education visit (clinic) Outpatient Referral Routine Ascites Alcoholic Cirrhosis Of Liver With Ascites (HCC) Expected: 10/05/2023 (Approximate), Expires: 01/03/2025 documented as of this encounter Visit Diagnoses Diagnosis Ascites- Primary Alcoholic Cirrhosis Of Liver With Ascites (HCC) documented in this encounter
== END 2023-12-23 14:16 | disposition home or self-care (01) ==
LOC: NFLDREF 14:17
PROVIDERS: PCP Family Medicine; Visit Provider Family Medicine
DX: E87.1 Hypo-osmolality and hyponatremia (principal); D64.9 Anemia, unspecified
CPT/HCPCS: 80048

== ENCOUNTER 2023-12-24 09:33 | Outpatient (RCR) | payer BC, SELFPAY ==
[2023-12-24] VITALS (9 sets, daily range): BP systolic 104–112; BP diastolic 51–70; PULSE 91–98; RESP 16–18; TEMP 36.2–37; O2SAT 100
--- NOTE | 2023-12-24 11:13 | PC.NURSE ---
Pt present at [facility] for blood transfusion. Monique states she would like a paracentesis with Dr. Marie. notified and will have his staff schedule and call pt directly with the info.
== END 2024-02-03 23:59 | disposition home or self-care (01) ==
LOC: CCIC 09:33
PROVIDERS: PCP Family Medicine; Visit Provider Family Medicine
DX: D64.9 Anemia, unspecified (principal)
CPT/HCPCS: 36415; 36430; 86850; 86900; 86901; 86922; P9016

== ENCOUNTER 2023-12-28 07:52 | Outpatient (CLI) | payer BC, SELFPAY ==
--- OUTSIDE RECORDS SUMMARY | 2023-12-28 07:56 | XMS_ITS | Clinical Summary ---
Author Name Unknown Organization [employer] [facility] [employer] [facility] Address [place], [place] [address] Care Team Providers Care Welcome Desk Agent Name Role Phone Jared Delgado MD Primary Care Provider Allergies No known active allergies Medications Medication [...] Travel 4 1:10 PM CDT Anesthesia Event [address] [address] Gabe Webber MD 4 12:12 PM CDT - 4 12:57 PM CDT Surgery [address] [address] Janet Torres MBBS ESOPHAGOGASTRODUODENOSCOPY 4 8:52 PM CDT - 4 5:25 PM CDT Hospital Encounter [address] [address] s, U Hospitalist zachery Jett, MD Kim [...] - 145 mmol/L 12/06/2023 11:58 AM CDT [facility] Blood BLOOD SPECIMEN / Unknown Butterfly / Unknown 12/06/2023 11:25 AM CDT 12/06/2023 11:50 AM CDT Freddy Moctezuma MD CHEMISTRY [facility] SENDOUT INTERNAL ZIP [phone] [place] [address] * (ABNORMAL) HEMOGLOBIN (12/06/2023 9:05 AM CDT) Only the most recent of6 resultswithin the time period is included. HEMOGLOBIN 7.6(L) 12.0 - 16.0 g/dL 12/06/2023 9:29 AM CDT [facility] MCV 94 80 - 100 fL 12/06/2023 9:29 AM CDT [facility] Blood BLOOD SPECIMEN / Unknown Venipuncture / Unknown 12/06/2023 9:05 AM CDT 12/06/2023 9:24 AM CDT Freddy Moctezuma MD HEMATOLOGY [facility] SENDOUT INTERNAL ZIP [address] [place] [address] * (ABNORMAL) BASIC METABOLIC PANEL (12/05/2023 1:42 PM CDT) Only the most recent of3 resultswithin the time period is included. SODIUM 122(L) 136 - 145 mmol/L 12/05/2023 2:37 PM CDT [facility] POTASSIUM 4.6 3.5 - 5.1 mmol/L 12/05/2023 2:37 PM CDT [facility] CHLORIDE 92(L) 98 - 107 mmol/L 12/05/2023 2:37 PM CDT [facility] CO2,TOTAL 20(L) 22 - 29 mmol/L 12/05/2023 2:37 PM CDT [facility] ANION GAP 10 5 - 18 12/05/2023 2:37 PM CDT [facility] GLUCOSE 97 70 - 99 mg/dL 12/05/2023 2:37 PM CDT [facility] CALCIUM 7.8(L) 8.8 - 10.2 mg/dL 12/05/2023 2:37 PM CDT [facility] BUN 11 8 - 23 mg/dL 12/05/2023 2:37 PM CDT [facility] CREATININE 0.50 0.50 - 0.90 mg/dL 12/05/2023 2:37 PM CDT [facility] BUN/CREAT RATIO 22(H) 10 - 20 2:37 PM CDT [facility] eGFR >90 >90 mL/min/1.7 3m2 12/05/2023 2:37 PM CDT [facility] Comment:As of 2021, eG FR [...] 2:10 PM CDT Freddy Moctezuma MD CHEMISTRY [facility] SENDOUT INTERNAL ZIP [phone] [place] [address] * LC HEP A AB, TOTAL (12/04/2023 9:21 AM CDT) Hep A Ab Tot Negative Negative 12/08/2023 11:[address] [facility] ([facility]) Comment: Comment: The HAV total antibody assay detects both IgG and IgM but does not differentiate between them. A negative result suggests susceptibility to infection. A positive result could be due to vaccination, previously resolved infection or active infection. Testing for HAV IgM should be performed if active HAV infection is suspected. [facility] offers profiles that will automatically reflex positive HAV total antibody results to IgM (e.g., panel #[id number] HAV Antibody w/ Rfx). Blood BLOOD SPECIMEN / Unknown Venipuncture / Unknown 12/04/2023 9:21 AM CDT 12/04/2023 9:[address] [facility] ([facility]) - 12/08/2023 11:10 AM CDT Performed at: ??[address] ??[id number] Test Analyst: Carlos Piña MD, Phone: ??[phone] Janet DELGADO [facility] (CET) [address] [place] [address] * ANTI HBS QUANT AHS (12/04/2023 9:21 AM CDT) ANTI HBS QUANT <3.50 mIU/mL 12/04/2023 3:36 PM CDT [facility] Blood BLOOD SPECIMEN / Unknown Venipuncture / Unknown 12/04/2023 9:21 AM CDT 12/04/2023 9:29 AM CDT Narrative [facility] - 12/04/2023 3:36 PM CDT <8.5 [...] prior to retesting. Janet JULIOBS SEND OUTS [facility] [address] [place] [address], * (ABNORMAL) PROTIME-INR (12/04/2023 9:21 AM CDT) INR 1.7(H) <1.3 12/04/2023 9:58 AM CDT [facility] PROTIME 18.5(H) 10.3 - 12.3 sec 12/04/2023 9:58 AM CDT [facility] Blood BLOOD SPECIMEN / Unknown Venipuncture / Unknown 12/04/2023 9:21 AM CDT 12/04/2023 9:30 AM CDT [facility] - 12/04/2023 9:58 AM CDT ?Therapeutic [...] is on UFH. Felipe Alvarez MD HEMATOLOGY [facility] SENDOUT INTERNAL ZIP [phone] [place] [address] * (ABNORMAL) AMMONIA (12/04/2023 9:21 AM CDT) AMMONIA 129(HH) 16 - 60 umol/L 12/04/2023 10:05 AM CDT [facility] Blood BLOOD SPECIMEN / Unknown Venipuncture / Unknown 12/04/2023 9:21 AM CDT 12/04/2023 9:28 AM CDT Narrative [facility] - 12/04/2023 10:05 AM CDT 1. ??Sulfasalazine and its metabolite Sulfapyridine at therapeutic concentrations may lead to falsely low results. 2. ??Temozolomide and its metabolite MTIC may lead to falsely elevated results, and its metabolite AIC may lead to falsely low results. Felipe Alvarez MD CHEMISTRY [facility] SENDOUT INTERNAL ZIP [phone] [place] [address] * US PARACENTESIS W IMAGING (12/03/2023 4:51 PM CDT) Anatomical Region Laterality Modality CHEST, Lung, THORAX Ultrasound 12/03/2023 4:51 PM CDT Impressions 12/03/2023 4:56 PM CDT 1. ??Status post ultrasound-guided paracentesis. Reference CPT Code: 83334 Narrative 12/03/2023 4:56 PM CDT For Patients: As a result of the Cures Act, medical imaging exams and procedure reports are released immediately into your electronic medical record. You may view this report before your referring provider. If you have questions, please contact your health care provider. EXAM: 1. PARACENTESIS 2. ULTRASOUND GUIDANCE LOCATION: [facility] MEDICAL IMAGING DATE: 12/03/2023 INDICATION: Ascites. PROCEDURE: Informed consent obtained. Time out performed. The abdomen was prepped and draped in a sterile fashion. 10 mL of 1% lidocaine was infused into local soft tissues. A 5 [place]ruguayan catheter system was introduced into the abdominal [...] EXAM: 1. PARACENTESIS 2. ULTRASOUND GUIDANCE LOCATION: [facility] MEDICAL IMAGING DATE: 12/03/2023 INDICATION: Ascites. PROCEDURE: Informed consent obtained. Time out performed. The abdomen wasprepped and draped in a sterile fashion. 10 mL of 1% lidocaine was infusedinto local soft tissues. A 5 [place]ruguayan catheter system was introduced intothe abdominal ascites under ultrasound guidance. 7.1 liters of clear fluid were removed and sent to lab if requested. Patient tolerated procedure well. Ultrasound imaging was obtained and placed in the patient's permanentmedical record. IMPRESSION: 1. Status post ultrasound-guided paracentesis. Reference CPT Code: 77157 Janet DELGADO US * Body Fluid Culture and Stain (12/03/2023 4:20 PM CDT) CULTURE No Growth. 12/08/2023 7:52 AM CDT [facility] GRAM STAIN 2+ PMNs 12/08/2023 7:52 AM CDT [facility] GRAM STAIN No organisms seen 12/08/2023 7:52 AM CDT [facility] GRAM STAIN No Epithelial cells 12/08/2023 7:52 AM CDT [facility] GRAM STAIN No RBCs 12/08/2023 7:52 AM CDT [facility] GRAM STAIN Gram stain performed by [place], [place] 12/08/2023 7:52 AM CDT [facility] Body Fluid PERITONEAL FLUID SPECIMEN / Unknown Non-Blood / Unknown 12/03/2023 4:20 PM CDT 12/03/2023 4:40 PM CDT Janet DELGADO MICROBIOLOGY [facility] [address] [place] [address], [facility] SENDOUT INTERNAL ZIP [phone] [place] [address] * Body Fluid Cell Count and Differential (12/03/2023 4:20 PM CDT) BODY FLUID SOURCE Ascitic Fluid 12/03/2023 7:27 PM CDT [facility] BODY FLUID COLOR Yellow 12/03/2023 7:27 PM CDT [facility] BODY FLUID CLARITY Clear 12/03/2023 7:27 PM CDT [facility] TOTAL NUCLEATED CELLS, BF 85 /cu mm 12/03/2023 7:27 PM CDT [facility] RED BLOOD COUNT, BODY FLUID <2,000 /cu mm 12/03/2023 7:27 PM CDT [facility] % NEUTROPHILS, BODY FLUID 17 % 12/03/2023 7:27 PM CDT [facility] % LYMPHOCYTES, BODY FLUID 25 % 12/03/2023 7:27 PM CDT [facility] % MONO/MACRO, BODY FLUID 58 % 12/03/2023 7:27 PM CDT [facility] Body Fluid PERITONEAL FLUID SPECIMEN / Unknown Non-Blood / Unknown 12/03/2023 4:20 PM CDT 12/03/2023 4:40 PM CDT [facility] - 12/03/2023 7:27 PM CDT TO ORDER BODY FLUID CULTURES, USE; [id number] BODY FLUID CULTURE, STAIN Janet DELGADO BODY FLUID [facility] SENDOUT INTERNAL ZIP [phone] [place] [address] * Protein, Body Fluid (12/03/2023 4:20 PM CDT) SPECIMEN SOURCE Peritoneal fluid 12/03/2023 5:26 PM CDT [facility] PROTEIN,BODY FLUID 0.6 g/dL 12/03/2023 5:26 PM CDT [facility] Comment:No Reference Range D efined. Body Fluid PERITONEAL FLUID SPECIMEN / Unknown Non-Blood / Unknown 12/03/2023 4:20 PM CDT 12/03/2023 4:40 PM CDT [facility] - 12/03/2023 5:26 PM CDT Pleural: [...] Test developed & performance characteristics determined by [employer], [place], [place] consistent with CLIA requirements. Not cleared or approved by [place] FDA. Janet Torres [facility] BODY FLUID Performing Organization Address [facility]/ZIP Co de Phone Number [facility] SENDOUT INTERNAL ZIP [phone] [place] [address] * Albumin, Body Fluid (12/03/2023 4:20 PM CDT) SPECIMEN SOURCE Peritoneal fluid 12/03/2023 5:26 PM CDT [facility] ALBUMIN,BODY FLUID 0.3 g/dL 12/03/2023 5:26 PM CDT [facility] Comment:No Reference Range D efined. Body Fluid PERITONEAL FLUID SPECIMEN / Unknown Non-Blood / Unknown 12/03/2023 4:20 PM CDT 12/03/2023 4:40 PM CDT [facility] - 12/03/2023 5:26 PM CDT Peritoneal: ??SAAG >/= 1.1 g/dL indicates portal Hypertension. Pleural: ? SEAG > 1.2 g/dL is consistent with a transudative process and may ?be more accurate in patients receiving diuretic therapy. Test developed & performance characteristics determined by [employer], [place], [place] consistent with CLIA requirements. Not cleared or approved by [place] FDA. Janet JULIO BODY FLUID Performing Organization Address [facility]/ZIP Co de Phone Number [facility] SENDOUT INTERNAL ZIP [phone] [place] [address] * FERRITIN (12/03/2023 2:47 PM CDT) Pathologist [facility] FERRITIN 131.0 15.0 - 150.0 ng/mL 12/03/2023 9:31 PM CDT [facility] Blood BLOOD SPECIMEN / Unknown Venipuncture / Unknown 12/03/2023 2:47 PM CDT 12/03/2023 2:51 PM CDT Janet DELGADO CHEMISTRY [facility] [employer] [facility] [address] [place] [address], * PATH TISSUE EXAM (12/03/2023 1:23 PM CDT) [facility] Case Report Pathology Report ?Case: [id number] ? Authorizing Provider: ??Brian, Janet, SANDY ?Collected: ? 12/03/2023 1323 ? Ordering Location: ? [facility] ?Received: ?12/03/2023 1527 ? Pathologist: ? Marco Tijerina MD ? Specimens: ?? A) - Duodenal Ulcer ? B) - Gastric Biopsy, random gastric ? 4 1:[address] [facility] Final Diagnosis A) DUODENUM, ULCER, [...] (Helicobacter immunohistochemistry negative) 4 1:[address] [facility] Comment B. Mild chronic inflammation in the stomach in the absence of Helicobacter often remains unexplained, but it could reflect prior or treated Helicobacter infection. The likelihood of histologically undetected Helicobacter is quite low in our opinion. 4 1:[address] [facility] Clinical Information Ms. Redmond is a 63 y.o. with hematemesis and iron deficiency anemia secondary to chronic blood loss. Upper GI endoscopy shows grade 1 esophageal varices, diffuse mild erythema throughout the stomach, and a superficial duodenal ulcer. 4 1:[address] [facility] Gross Description A) Received in [...] 12/03/2023 4:32 PM 4 1:[address] [facility] Microscopic Description The final diagnosis is based on microscopic examination of appropriate sections of all specimens. 1:56 PM CDT [facility] Additional Information Interpreted at [facility] - [address], [place] [address] 1:56 PM CDT [facility] Biopsy (Duodenal Ulcer) 12/03/2023 1:23 PM CDT 12/03/2023 3:27 PM CDT Biopsy specimen (specimen) GASTRIC BIOPSY SPECIMEN / Unknown 12/03/2023 1:29 PM CDT 12/03/2023 3:27 PM CDT Janet DELGADO PATHOLOGY/CYTOLOGY [facility] [address] [place] [address], [place] * ENDOSCOPY (12/03/2023 12:57 PM CDT) 12/03/2023 12:5 7 PM CDT Narrative Transcriptions Janet Torres MBBS - 12/03/2023 2:21 PM CDT Patient Name: Monique Redmond Procedure Date: 12/03/2023 Gender: Female Date of : 1960 Admit Type: Inpatient Procedure: Upper GI endoscopy Proceduralist: Janet Torres MD - [facility] Indications/Pre-Op Diagnosis: Hematemesis, Iron deficiency anemiasecondary to chronic blood loss Medications: Propofol per Anesthesia Procedure Description: The patient had risks, benefits and alternatives explained to andgave informed consent. The patient had a stable cardiopulmonary status and judged an adequate candidate for conscious sedation. The endoscope [id number] was introduced through the mouth, and advanced [...] 11.0 thou/cu mm 12/03/2023 5:12 AM CDT [facility] RED BLOOD COUNT 2.21(L) 4.00 - 5.20 mil/cu mm 12/03/2023 5:12 AM [facility] HEMOGLOBIN 7.3(L) 12.0 - 16.0 g/dL 12/03/2023 5:12 AM T [facility] HEMATOCRIT 21.5(L) 33.0 - 51.0 % 12/03/2023 5:12 AM [facility] MCV 97 80 - 100 fL 12/03/2023 5:12 AM [facility] MCH 33.0 26.0 - 34.0 pg 12/03/2023 5:12 AM [facility] MCHC 34.0 32.0 - 36.0 g/dL 12/03/2023 5:12 AM [facility] RDW 17.2(H) 11.5 - 15.5 % 12/03/2023 5:12 AM T [facility] PLATELET COUNT 167 140 - 440 thou/cu mm 12/03/2023 5:12 AM T [facility] MPV 8.9 6.5 - 11.0 fL 12/03/2023 5:12 AM T [facility] NRBC 0.0 % 12/03/2023 5:12 AM T [facility] ABS NRBC 0.0 thou /cu mm 12/03/2023 5:12 AM T [facility] % NEUT 65.0 % 12/03/2023 5:12 AM T [facility] % LYMPH 25.6 % 12/03/2023 5:12 AM T [facility] % MONO 7.5 % 12/03/2023 5:12 AM CDT [facility] % EOS 1.0 % 12/03/2023 5:12 AM CDT [facility] % BASO 0.3 % 12/03/2023 5:12 AM CDT [facility] % IMMATURE GRAN (METAS,MYELOS,ME OS) 0.6 % 12/03/2023 5:12 AM CDT [facility] ABSOLUTE NEUTROPHILS 5.7 1.7 - 7.0 thou/cu mm 12/03/2023 5:12 AM CDT [facility] ABSOLUTE LYMPHOCYTES 2.2 0.9 - 2.9 thou/cu mm 12/03/2023 5:12 AM CDT [facility] ABSOLUTE MONOCYTES 0.7 <0.9 thou/cu mm 12/03/2023 5:12 AM CDT [facility] ABSOLUTE EOSINOPHILS 0.1 <0.5 thou/cu mm 12/03/2023 5:12 AM CDT [facility] ABSOLUTE BASOPHILS 0.0 <0.3 thou/cu mm 12/03/2023 5:12 AM CDT [facility] ABSOLUTE IMMATURE GRANULOCYTES(MET ,MYELOS,PROS) 0.1 <0.3 thou/cu mm 12/03/2023 5:12 AM CDT [facility] Blood BLOOD SPECIMEN / Unknown Butterfly / Unknown 12/03/2023 3:34 AM CDT 12/03/2023 3:37 AM CDT Adama Jett MD HEMATOLOGY [facility] SENDOUT INTERNAL ZIP [phone] [place] [address] * (ABNORMAL) RED CELL MORPHOLOGY (12/03/2023 3:34 AM CDT) POLYCHROMASIA Slight 12/03/2023 5:12 AM CDT [facility] SCHISTOCYTES Few 12/03/2023 5:12 AM CDT [facility] RBC COMMENT Present(A) RBC morphology appears normal, RBC morphology within normal limits for newborns. 12/03/2023 5:12 AM CDT [facility] Blood BLOOD SPECIMEN / Unknown Butterfly / Unknown 12/03/2023 3:34 AM CDT 12/03/2023 3:37 AM CDT Adama Jett MD HEMATOLOGY [facility] SENDOUT INTERNAL ZIP [phone] [place] [phone] * PLATELET ESTIMATE (12/03/2023 3:34 AM CDT) PLATELET ESTIMATE Adequate Adequate, No estimate 12/03/2023 5:12 AM CDT [facility] Blood BLOOD SPECIMEN / Unknown Butterfly / Unknown 12/03/2023 3:34 AM CDT 12/03/2023 3:37 AM CDT Adama Jett MD HEMATOLOGY Performing Organization Address [facility]/ZIP Co de Phone Number [facility] SENDOUT INTERNAL ZIP [phone] [place] [address] * (ABNORMAL) IRON PLUS IRON BINDING CAP (12/03/2023 3:34 AM CDT) IRON 49 37 - 145 ug/dL 12/03/2023 3:46 PM CDT [facility] UIBC (UNSATURATED) 67(L) 112 - 347 ug/dL 12/03/2023 3:46 PM CDT [facility] IRON BINDING CAPACITY 116(L) 250 - 400 ug/dL 12/03/2023 3:46 PM CDT [facility] IRON,% SATURATION 42 14 - 50 % 12/03/2023 3:46 PM CDT [facility] Blood BLOOD SPECIMEN / Unknown Butterfly / Unknown 12/03/2023 3:34 AM CDT 12/03/2023 3:37 AM CDT Janet JULIOBS CHEMISTRY [facility] SENDOUT INTERNAL ZIP [phone] [place] [address] * (ABNORMAL) MAGNESIUM (12/03/2023 3:34 AM CDT) MAGNESIUM 2.5(H) 1.6 - 2.4 mg/dL 12/03/2023 3:57 AM CDT [facility] Blood BLOOD SPECIMEN / Unknown Butterfly / Unknown 12/03/2023 3:34 AM CDT 12/03/2023 3:37 AM CDT Adama Jett MD CHEMISTRY [facility] SENDOUT INTERNAL ZIP [phone] [place] [address] * SCAN-CARDIAC STRIP (12/02/2023 11:58 PM CDT) Scanner OTHER * (ABNORMAL) HEPATIC FUNCTION PANEL (12/02/2023 10:56 PM CDT) ALBUMIN 2.8(L) 4.0 - 4.9 g/dL 12/02/2023 11:22 PM CDT [facility] PROTEIN,TOTAL 6.5 6.0 - 8.0 g/dL 12/02/2023 11:22 PM CDT [facility] BILIRUBIN,TOTAL 3.0(H) 0.0 - 1.2 mg/dL 12/02/2023 11:22 PM CDT [facility] BILIRUBIN,DIRECT 1.3(H) 0.0 - 0.3 mg/dL 12/02/2023 11:22 PM CDT [facility] BILIRUBIN,INDIRE CT 1.7(H) 0.2 - 0.8 mg/dL 12/02/2023 11:22 PM CDT [facility] ALK PHOSPHATASE 114(H) 35 - 104 IU/L 12/02/2023 11:22 PM CDT [facility] ALT (SGPT) 31 10 - 35 IU/L 12/02/2023 11:22 PM CDT [facility] AST (SGOT) 87(H) 10 - 35 IU/L 12/02/2023 11:22 PM CDT [facility] Blood BLOOD SPECIMEN / Unknown Venipuncture / Unknown 12/02/2023 10:56 PM CDT 12/02/2023 11:01 PM CDT Adama Jett MD CHEMISTRY [facility] SENDOUT INTERNAL ZIP [phone] [place] [address] from Last 3 Months Advance Directives * Full Code (Latest Code Status on File) Date Activated Date Inactivated Comments 12/02/2023 9:46 PM 12/06/2023 7:35 PM Question Answer Comments Code Status Discussion: Reviewed Preferences Care Teams Welcome Desk Agent Relationship Specialty Start Date End Date Jared Delgado MD [address] [place] [phone] PCP - General Family Practice 12/04/23
--- OUTSIDE RECORDS SUMMARY | 2023-12-28 07:56 | XMS_ITS | Referral Summary ---
Author Name Unknown Organization [facility] Address [address] [place] [id number] Care Team Providers Care Coating And Embossing Unit Operator Name Role Phone Elsewhere, Pcp Primary Care Provider Unavailabl e Source Comments Patient records contain information from all sites at [facility]. For routine questions regarding patient records, call [phone] during business hours, M-F 8:00 AM - 5:00 PM Central Time. Record requests for emergency care only can be directed to [phone] at any time.[facility] Encounters Date Type Department Care Team Description 12/21/2023 Clinical Communication Brent Alvarenga [facility] in [place], [place] [address] [place] [address] Kajta Umana M.D. 12/20/2023 Orders Only Department of Nicotine Dependence, [facility] in [place], [place] [address] [place] [address] Sudha Bernstein M.A., Yesy.I.C.S.W., M.S.W. 12/20/2023 Clinical Communication Division of Gastroenterology in [place], [place] [address] [place] [address] Katja Umana M.D. Scheduling 12/20/2023 2:00 PM CDT Virtual Visit Department of Nicotine Dependence, [facility], in [place], [place] [address] [place] [address] Sudha Bernstein M.A., Yesy.I.C.S.W., M.S.W. Nicotine Dependence Cigarettes With Withdrawal (Primary Dx) 12/16/2023 9:34 AM CDT - 12/16/2023 11:22 AM CDT Hospital Encounter Department of Radiology, [facility], in [place], [place] [address] [place] [phone] Katja Umana M.D. Alcoholic Cirrhosis Of Liver With Ascites (HCC); Ascites Discharge Disposition: Home or Self Care 12/09/2023 4:30 PM CDT Office Visit [facility] in [address] [phone] Katja Umana M.D. Olson, Jody C, M.D. Alcoholic Cirrhosis Of Liver With Ascites (HCC) (Primary Dx); Ascites; Sarcopenia 12/08/2023 10:30 AM CDT Comprehensive Visit Section of Infectious Diseases in [address] [address] Katja Umana M.D. Mackey, Callie A, APRN, C.N.P., D.N.P. 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 Order Request 11/19/2023 10:08 AM BEAMER OPERATOR - 11/19/2023 12:51 PM BEAMER OPERATOR Hospital Encounter Department of Radiology, [facility], in [place], [place] [address] [place] [phone] Felipe Morales M.D. Ascites Discharge Disposition: Home or Self Care 11/18/2023 Orders Only Department of Nicotine Dependence, [facility], in [address] [address] Sudha Bernstein M.A., L.I.C.S.W., M.S.W. 11/18/2023 11:00 AM BEAMER OPERATOR Virtual Visit Department of Nicotine Dependence, [place], [place] [address] [place] [address] Sudha Bernstein M.A., DonnS.W., M.S.W. Nicotine Dependence Cigarettes With Withdrawal (Primary Dx) 11/11/2023 Orders Only Department of Nicotine Dependence, [place], [place] [address] [place] [address] Sudha Bernstein M.A., DonnS.W., M.S.W. 11/11/2023 Clinical Communication Department of Nicotine Dependence, [place], [place] [address] [place] [address] Sudha Bernstein M.A., Edwin.S.Dameon., M.S.W. NDC Med Request 11/11/2023 11:00 AM BEAMER OPERATOR Virtual Visit Department of Nicotine Dependence, [place], [place] [address] [place] [address] Sudha Bernstein M.A., Edwin.S.Dameon., M.S.W. Nicotine Dependence Cigarettes With Withdrawal (Primary Dx) 11/05/2023 9:29 AM BEAMER OPERATOR - 11/05/2023 12:20 PM BEAMER OPERATOR Hospital Encounter Department of Radiology, [place], [place] [address] [place] [address] Felipe Morales M.D. Ascites Discharge Disposition: Home or Self Care 11/01/2023 12:28 PM BEAMER OPERATOR - 11/01/2023 11:59 PM BEAMER OPERATOR Hospital Encounter Department of Laboratory Medicine in [address] [address] Katja Umana M.D. Alcoholic Cirrhosis Of Liver With Ascites (HCC) Discharge Disposition: Home or Self Care 10/28/2023 Orders [facility] in [place], [place] [address] [place] [phone] Katja Umana M.D. Alcoholic Cirrhosis Of Liver With Ascites (HCC) (Primary Dx) 10/28/2023 Orders Only Department of Nicotine Dependence, [place], [place] [address] [place] [phone] Sudha Bernstein M.A., Yesy.IPetrosC.S.W., M.S.W. 10/28/2023 Clinical Communication Department of Nicotine Dependence, [facility] in [place], [place] [address] [place] [phone] Sudha Bernstein M.A., Yesy.Olga.S.W., M.S.W. NDC Med Request 10/28/2023 11:00 AM BEAMER OPERATOR Virtual Visit Department of Nicotine Dependence, [facility] in [place], [place] [address] [place] [phone] Romana Diane M.D., Ph.D. Sudha Bernstein M.A., Yesy.I.C.S.W., M.S.W. Nicotine Dependence Cigarettes 10/27/2023 10:26 AM BEAMER OPERATOR - 10/27/2023 11:59 PM BEAMER OPERATOR Hospital Encounter Department of Laboratory Medicine in [address] [address] Katja Umana M.D. Alcoholic Cirrhosis Of Liver With Ascites (HCC); Alcohol Moderate Or Severe Use Disorder (Dependence) Uncomplicated (HCC) Discharge Disposition: Home or Self Care 10/27/2023 10:26 AM BEAMER OPERATOR - 10/27/2023 11:59 PM BEAMER OPERATOR Hospital Encounter Department of Laboratory Medicine in [address] [phone] Romana Diane M.D., Ph.D. Alcohol Moderate Or Severe Use Disorder (Dependence) Uncomplicated (HCC) Discharge Disposition: Home or Self Care 10/24/2023 Clinical Communication Division of Gastroenterology in [place], [place] [address] [place] [phone] Katja Umana M.D. 10/22/2023 7:27 AM BEAMER OPERATOR - 10/22/2023 3:44 PM BEAMER OPERATOR Hospital Encounter Department of Radiology, [facility] in [place], [place] [address] [place] [phone] Katja Umana M.D. Ascites Discharge Disposition: Home or Self Care 10/20/2023 1:00 PM BEAMER OPERATOR - 10/20/2023 11:59 PM BEAMER OPERATOR Hospital Encounter Department of Laboratory Medicine in [address] [phone] Katja Umana M.D. Ascites Discharge Disposition: Home or Self Care 10/18/2023 Clinical Communication Division of Gastroenterology in [place], [place] [address] [place] [phone] Katja Umana M.D. 10/15/2023 10:40 AM BEAMER OPERATOR Telemedicine Division of Gastroenterology in [place], [place] [address] [place] [phone] Katja Umana M.D. Ascites (Primary Dx); Alcoholic Cirrhosis Of Liver With Ascites (HCC); Esophageal Varices Without Bleeding (HCC) 10/09/2023 Documentation Division of Gastroenterology in [place], [place] [address] [place] [phone] Joy Rudd M.B.B.S. 10/09/2023 Nurse Triage Department of Family Medicine, [address] [place] [address] Katharine Domínguez R.N. Follow-up 10/08/2023 3:20 PM BEAMER OPERATOR Ancillary Procedure Department of Gastroenterology 10/08/2023 3:19 PM BEAMER OPERATOR Anesthesia Event Division of Gastroenterology in [place], [place] [address] [place] [address] Jeffy Moy APRN, Joshau Orellana M.D. 10/08/2023 Clinical Communication Division of Gastroenterology in [place], [place] [address] [place] [phone] Felipe Morales M.D. Hepatobiliary (Ascites elijah) 10/08/2023 10:43 AM BEAMER OPERATOR - 10/08/2023 1:05 PM BEAMER OPERATOR Hospital Encounter Department of Radiology, [facility] in [place], [place] [address] [place] [phone] Katja Umana M.D. Alcoholic Cirrhosis Of Liver With Ascites (HCC) Discharge Disposition: Home or Self Care 10/08/2023 1:09 PM BEAMER OPERATOR - 10/08/2023 4:27 PM BEAMER OPERATOR Hospital Encounter Division of Gastroenterology in [place], [place] [address] [place] [phone] Katja Umana M.D. Alcoholic Cirrhosis Of Liver With Ascites (HCC) Discharge Disposition: Home or Self Care 10/07/2023 9:50 AM BEAMER OPERATOR - 10/07/2023 11:59 PM BEAMER OPERATOR Hospital Encounter Department of Cardiovascular Diseases in [place], [place] [address] [place] [phone] Katja Umana M.D. Alcoholic Cirrhosis Of Liver With Ascites (HCC) Discharge Disposition: Home or Self Care 10/06/2023 12:45 PM BEAMER OPERATOR - 10/06/2023 11:59 PM BEAMER OPERATOR Hospital Encounter Department of Radiology, [facility] in [place], [place] [address] [place] [phone] Katja Umana M.D. Alcoholic Cirrhosis Of Liver With Ascites (HCC) Discharge Disposition: Home or Self Care 10/06/2023 11:00 AM BEAMER OPERATOR Comprehensive Visit Brent Alvarenga [facility] in [place], [place] [address] [place] [phone] Ebony Back M.D. Leise, Michael D, M.D. Ascites; Alcoholic Cirrhosis Of Liver With Ascites (HCC) 10/06/2023 2:00 PM BEAMER OPERATOR Education Division of Gastroenterology in [place], [place] [address] [place] [phone] HalfdaEbony dean M.D. Orth, Dianne M, R.NPetros Ascites; Alcoholic Cirrhosis Of Liver With Ascites (HCC) 10/05/2023 Orders Only Department of Oncology in [place], [place] [address] [place] [address] Ebony Back M.D. Ascites (Primary Dx); Alcoholic Cirrhosis Of Liver With Ascites (HCC) from Last 3 Months Allergies No known active allergies Medications Medication Sig Dispensed Refills Start Date End Date Status acetaminophen 650 mg/20.3 mL suspension Take 650 mg by mouth every 4 (four) hours as needed (for pain). No more than 2000 mg in 24 hours 11/08/2014 Active spironolactone (ALDACTONE) 100 mg tablet Take 1 tablet (100 mg total) by mouth daily. 30 tablet 2 11/22/2023 02/20/20 24 Active Additional Information Patient taking differently: 50 mgoral Daily, Reported on 12/07/2023 furosemide (LASIX) 40 mg tablet Take 1 tablet (40 mg total) by mouth daily. 30 tablet 2 11/22/2023 02/20/20 Active Additional Information Patient taking differently: 20 mgoral Daily, Reported on 12/07/2023 traZODone (DESYREL) 50 mg tablet Take 1 tablet (50 mg total) by mouth at bedtime. 30 tablet 11/22/2023 Active pantoprazole (PROTONIX) 40 mg EC tablet Take 40 mg by mouth 2 (two) times a day before breakfast and dinner. 12/06/2023 Active lactulose (CHRONULAC) 10 gram/15 mL solution Take 30 mL (20 g total) by mouth 2 (two) times a day. Take and titrate to goal 2-3 loose bowel movements daily. 946 mL 2 12/09/2023 Active rifAXIMin (XIFAXAN) 550 mg tablet Take 1 tablet (550 mg total) by mouth 2 (two) times a day. 60 tablet 2 12/09/2023 03/08/20 Active varenicline (CHANTIX RADHIKA) 0.5 mg (11)- 1 mg (42) tabletIndicatio ns:Nicotine Dependence Cigarettes Use as directed on package instructions, try to quit smoking after 1 week. 53 tablet 10/28/2023 12/07/19 24 Discontinued(The linda completed) varenicline (CHANTIX) 1 mg tabletIndicatio ns:Nicotine Dependence Cigarettes Take 1 tablet (1 mg total) by mouth 2 (two) times a day. Take with full glass of water. 60 tablet 5 10/28/2023 12/08/19 24 Discontinued nicotine (Nicoderm CQ) 7 mg/24 hr patch [...] Date Smoking Tobacco: Every Day Cigarettes 0.5 40.9 Started: 02/11/1983 Passive Smoke Exposure: Never Smokeless Tobacco: Never Alcohol Use Standard Drinks/Week Comments Not Currently 0 (1 standard drink = 0.6 oz pur e alcohol) [facility] Utilities Answer Date Recorded In the past 12 months has e Portr, gas, oil, or water company threatened to [...] Date Recorded Employment status Working with temporary [employer] 10/15/2023 Housing Stability Answer Date Recorded What is your living situation today? I have a [facility] place to live 10/15/2023 Sex and Gender Information Value Date Recorded Sex Assigned at Female 10/06/2023 10:50 AM BEAMER OPERATOR Gender Identity Female 10/06/2023 10:50 AM BEAMER OPERATOR Sexual Orientation Straight 10/06/2023 10 :50 AM BEAMER OPERATOR Last Filed Vital Signs Vital Sign Reading Time Taken Comments Blood Pressure 101/47 12/16/2023 10:52 AM CDT Pulse 77 12/16/2023 10:30 AM CDT Temperature 34.7 ??C (94.5 ??F) 12/09/2023 4:21 PM CD T Respiratory Rate 10/08/2023 4:16 PM BEAMER OPERATOR Oxygen Saturation 100% 12/16/2023 10:30 AM CDT Inhaled Oxygen Concentration - - Weight 51.2 kg (112 lb 14 oz) 12/09/2023 4:21 PM CDT Height 166.6 cm (5' 5.59) 12/09/2023 4:21 PM CD T Body Mass Index 18.45 12/09/2023 4:21 PM CDT Plan of Treatment Upcoming Encounters Date Type Department Care Team (Late st Contact Info) Description 01/19/2024 10:00 AM CDT Telemedicine Department of Nutrition and Diabetes Education in [place], [place] [address] [place] [address] Katja Umana M.D. [address] [place] [address] Taty Cunningham M.S., RDN, LD [address] [place] [phone] Procedures Procedure Name Priority Date/Time Associated Diagnosis [...] inpatients and all outpatients) 11/19/2023 11:55 AM BEAMER OPERATOR Ascites CELL COUNT AND DIFFERENTIAL, BF Timed 11/19/2023 10:50 AM BEAMER OPERATOR Ascites BACTERIAL CULTURE, AEROBIC + SUSC Timed 11/19/2023 10:50 AM BEAMER OPERATOR Ascites US PARACENTESIS WITH IMAGING GUIDANCE RAD - Routine (most inpatients and all outpatients) 11/05/2023 11:25 AM BEAMER OPERATOR Ascites CELL COUNT AND DIFFERENTIAL, BF Timed 11/05/2023 10:07 AM BEAMER OPERATOR Ascites BACTERIAL CULTURE, AEROBIC + SUSC Timed 11/05/2023 10:07 AM BEAMER OPERATOR Ascites BASIC METABOLIC PANEL, S/P Routine 11/01/2023 12:49 PM BEAMER OPERATOR Alcoholic Cirrhosis Of Liver With Ascites (HCC) CONFIRMED DRUG ABUSE PANEL, U Routine 10/27/2023 10:38 AM BEAMER OPERATOR Alcohol Moderate Or Severe Use Disorder (Dependence) Uncomplicated (HCC) ETHYL GLUCURONIDE CONFIRMATION, U Routine 10/27/2023 10:38 AM BEAMER OPERATOR Alcohol Moderate Or Severe Use Disorder (Dependence) Uncomplicated (HCC) PHOSPHATIDYLETHANOL CONFIRMATION, B Routine 10/27/2023 10:33 AM BEAMER OPERATOR Alcohol Moderate Or Severe Use Disorder (Dependence) Uncomplicated (HCC) BASIC METABOLIC PANEL, S/P Routine 10/27/2023 10:33 AM BEAMER OPERATOR Alcoholic Cirrhosis Of Liver With Ascites (HCC) US PARACENTESIS WITH IMAGING GUIDANCE RAD - Routine (most inpatients and all outpatients) 10/22/2023 10:18 AM BEAMER OPERATOR Ascites CELL COUNT AND DIFFERENTIAL, BF Timed 10/22/2023 8:54 AM BEAMER OPERATOR Ascites BACTERIAL CULTURE, AEROBIC + SUSC Timed 10/22/2023 8:54 AM BEAMER OPERATOR Ascites BASIC METABOLIC PANEL, S/P Routine 10/20/2023 1:08 PM BEAMER OPERATOR Ascites GASTROENTEROLOGY IMAGE EXAM Routine 10/08/2023 3:20 PM BEAMER OPERATOR UPPER GI ENDOSCOPY Routine 10/08/2023 3:17 PM BEAMER OPERATOR Alcoholic Cirrhosis Of Liver With Ascites (HCC) EGD (ESOPHAGOGASTRODUODENOSC OPY) RESTRICTED Routine 10/08/2023 3:17 PM BEAMER OPERATOR Alcoholic Cirrhosis Of Liver With Ascites (HCC) US PARACENTESIS WITH IMAGING GUIDANCE RAD - Routine (most inpatients and all outpatients) 10/08/2023 12:57 PM BEAMER OPERATOR Alcoholic Cirrhosis Of Liver With Ascites (HCC) PROTEIN, TOTAL, BF Timed 10/08/2023 11:14 AM BEAMER OPERATOR ALBUMIN, BODY FLUID Timed 10/08/2023 11:14 AM BEAMER OPERATOR CELL COUNT AND DIFFERENTIAL, BF Timed 10/08/2023 11:14 AM BEAMER OPERATOR BACTERIAL CULTURE, AEROBIC + SUSC Timed 10/08/2023 11:14 AM BEAMER OPERATOR (TTE) 2D ECHO DOPPLER COLOR AND CONTRAST Routine 10/07/2023 11:01 AM BEAMER OPERATOR Alcoholic Cirrhosis Of Liver With Ascites (HCC) DX CHEST AP OR PA AND LATERAL 2 VIEWS RAD - Routine (most inpatients and all outpatients) 10/06/2023 1:32 PM BEAMER OPERATOR Alcoholic Cirrhosis Of Liver With Ascites (HCC) AUTOIMMUNE LIVER DISEASE PANEL, S Routine 10/06/2023 12:17 PM BEAMER OPERATOR Alcoholic Cirrhosis Of Liver With Ascites (HCC) ALPHA-FETOPROTEIN (AFP) TM, S Routine 10/06/2023 12:17 PM BEAMER OPERATOR Alcoholic Cirrhosis Of Liver With Ascites (HCC) PROTHROMBIN TIME (PT), P Routine 024 12:17 PM BEAMER OPERATOR Alcoholic Cirrhosis Of Liver With Ascites (HCC) COMPREHENSIVE METABOLIC PANEL, S/P Routine 10/06/2023 12:17 PM BEAMER OPERATOR Alcoholic Cirrhosis Of Liver With Ascites (HCC) CBC WITH DIFFERENTIAL, B Routine 024 12:17 PM BEAMER OPERATOR Alcoholic Cirrhosis Of Liver With Ascites (HCC) HEPATITIS A IGG AB S Routine 10/06/2023 12:17 PM BEAMER OPERATOR Alcoholic Cirrhosis Of Liver With Ascites (HCC) HBC TOTAL AB, SERUM Routine 10/06/2023 12:17 PM BEAMER OPERATOR Alcoholic Cirrhosis Of Liver With Ascites (HCC) HEPATITIS B SURFACE ANTIGEN Routine 10/06/2023 12:17 PM BEAMER OPERATOR Alcoholic Cirrhosis Of Liver With Ascites (HCC) HBS ANTIBODY, SERUM Routine 10/06/2023 12:17 PM BEAMER OPERATOR Alcoholic Cirrhosis Of Liver With Ascites (HCC) HCV AB SCRN W/REFLEX TO HCV PCR, S Routine 10/06/2023 12:17 PM BEAMER OPERATOR Alcoholic Cirrhosis Of Liver With Ascites (HCC) COLONOSCOPY Routine 10/10/2015 2:45 PM BEAMER OPERATOR from Last 3 Months or Most Recently Relevant to Health Maintenance Results * US Paracentesis with Imaging Guidance [...] CDT Katja Umana M.D. LAB BLOOD ADD-ON [facility] [address] [place] [address], [place] [facility] [address] [place] [address] * (ABNORMAL) CBC with Differential, Blood (12/09/2023 5:16 PM CDT) Only the most recent of2 resultswithin the time period is included. Hemoglobin 8.3(L) 11.6 - 15.0 g/dL 12/09/2023 [...] CDT Katja Umana M.D. LAB BLOOD ADD-ON [facility] [address] [place] [address], [place] [facility] [address] [place] [address] [facility] [address] [place] [address] * (ABNORMAL) Comprehensive Metabolic Panel (12/09/2023 5:16 PM CDT) Only the most recent of2 resultswithin the time period is included. Potassium, S 5.0 3.6 - 5.2 mmol/L [...] CDT Katja Umana M.D. LAB BLOOD ADD-ON Performing Organization Address City/[facility]/ZIP Co de Phone Number [facility] [address] [place] [address], [facility] [address] [place] [address] * Bacterial Culture, Aerobic + Susceptibility (11/19/2023 10:50 AM BEAMER OPERATOR) Only the most recent of4 resultswithin the time period is included. Bacterial Culture, Aerobic + Susc No growth after 5 days of incubation. 11/24/2023 8:27 AM CDT DTL Fluid (Peritoneal Fluid) 11/19/2023 10:50 AM BEAMER OPERATOR Narrative [facility] - 11/24/2023 8:27 AM CDT Bacterial Culture: Received Bactec aerobic and Bactec anaerobic bottles Felipe Morales M.D. LAB MICROBIOLOGY - GENERAL ORDERABLES Performing Organization Address City/[facility]/ZIP Co de Phone Number [facility] [address] [place] [address], [facility] [address] [place] [address] * Cell Count and Differential, Body Fluid (11/19/2023 10:50 AM BEAMER OPERATOR) Only the most recent of4 resultswithin the time period is included. Fluid Type Peritoneal /Paracente sis 11/19/2023 12:39 PM BEAMER OPERATOR [facility] Gross Appearance Serous 11/19/19 12:39 PM BEAMER OPERATOR [facility] Total Nucleated Cells 201 /mcL 11/19/2023 12:39 PM BEAMER OPERATOR [facility] Comment: ----REFERENCE VALUE---- Synovial: <150 /mcL Peritoneal: <500 /mcL Pleural: <500 /mcL Pericardial: <500 /mcL ----ADDITIONAL INFORMATION---- This test has been modified from the assistant plant control operator's instructions. Its performance characteristics were determined by [facility] in a manner consistent with CLIA requirements. This test has not been cleared or approved by the U.S. Food and Drug Administration. Neutrophils 20 % 11/19/2023 1:42 PM BEAMER OPERATOR [facility] Comment: ----REFERENCE VALUE---- Synovial: <25% Peritoneal: <25% Pleural: <25% Pericardial: <25% Lymphocytes 16 Synovial <75% % 11/19/2023 1:42 PM BEAMER OPERATOR [facility] Monocytes/Macropha ges 60 Synovial <70% % 11/19/2023 1:42 PM BEAMER OPERATOR [facility] Other Cells 4 % 11/19/2023 1:42 PM BEAMER OPERATOR [facility] Comment: ----REFERENCE VALUE---- The reference range and other method performance specifications have not been established for this bodyfluid. The test result must be integrated into the clinical context for interpretation. Other Cells Are: See Comment 11/19/2023 1:42 PM BEAMER OPERATOR [facility] Comment:Mesothelial cells Comment See Comment 11/19/2023 1:42 PM BEAMER OPERATOR [facility] Comment:No blasts or maligna nt cells seen. Reviewed by: Tech 11/19/2023 1:42 PM BEAMER OPERATOR [facility] Fluid (Peritoneal Fluid) 11/19/2023 10:50 AM BEAMER OPERATOR Felipe Morales M.D. LAB BODY FLUIDS AND STOOLS ORDERABLES [facility] [address] [place] [address], [place] [facility] [address] [place] [address] * (ABNORMAL) Basic Metabolic Panel (11/01/2023 12:49 PM BEAMER OPERATOR) Only the most recent of3 resultswithin the time period is included. Pathologist [facility] Potassium, P 4.1 3.6 - 5.2 mmol/L 11/01/2023 1:13 PM BEAMER OPERATOR [facility]FL Sodium, P 128(L) 135 - 145 mmol/L 11/01/2023 1:13 PM BEAMER OPERATOR [facility]FL Chloride, P 95(L) 98 - 107 mmol/L 11/01/2023 1:13 PM BEAMER OPERATOR [facility] Bicarbonate, P 26 22 - 29 mmol/L 11/01/2023 1:13 PM BEAMER OPERATOR CNFL Anion Gap, P 7 7 - 15 11/01/2023 1:13 PM BEAMER OPERATOR CNFL BUN (Blood Urea Nitrogen), P 10 6 - 21 mg/dL 11/01/2023 1:13 PM BEAMER OPERATOR CNFL Creatinine 0.42(L) 0.59 - 1.04 mg/dL 11/01/2023 1:13 PM BEAMER OPERATOR CNFL Estimated GFR (eGFR) >90 >=60 mL/min/BSA 11/01/2023 1:13 PM BEAMER OPERATOR [facility] Comment: Estimated GFR calculated using the 2020 CKD_EPI creatinine equation. Calcium, Total, P 8.3(L) 8.8 - 10.2 mg/dL 11/01/2023 1:13 PM BEAMER OPERATOR CNFL Glucose, P 105 70 - 140 mg/dL 11/01/2023 1:13 PM BEAMER OPERATOR [facility]FL Blood (Blood, Venous) 11/01/2023 12:49 PM BEAMER OPERATOR 11/01/2023 12:54 PM BEAMER OPERATOR Katja Umana M.D. LAB BLOOD ADD-ON [facility] [address] [place] [address], [facility] in [address] [address] * Ethyl Glucuronide Confirmation, Random, Urine (10/27/2023 10:38 AM BEAMER OPERATOR) Ethyl Glucuronide Confirmation, U Negative Cutoff: 250 ng/mL 10/29/2023 8:19 AM BEAMER OPERATOR [facility] Ethyl Sulfate Negative Cutoff: 100 ng/mL 10/29/2023 8:19 AM [facility] Ethyl Gluc/Sulfate Interpretation Negative. 10/29/2023 8:19 AM [facility] Comment: ----ADDITIONAL INFORMATION---- This report is intended for use in clinical monitoring and management of patients. ??It is not intended for use in employment-related testing. This test was developed and its performance characteristics determined by [facility] in a manner consistent with CLIA requirements. This test has not been cleared or approved by the U.S. Food and Drug Administration. Urine (Urine, Midstream) 10/27/2023 10:38 AM BEAMER OPERATOR 10/27/2023 10:00 PM [facility] Romana Diane M.D., Ph.D. LAB URI NE ORDERABLES [facility] [address] [place] [address] [facility] [address] [place] [address] [place] [address] * Drug Abuse Survey with Confirmation, Urine (10/27/2023 10:38 AM [facility]) Alcohol Negative Cutoff: 10 mg/dL 10/28/2023 9:08 AM [facility] Amphetamines Negative Cutoff: 500 ng/mL 10/28/2023 9:08 AM [facility] Barbiturates Negative Cutoff: 200 ng/mL 10/28/2023 9:08 AM [facility] Benzodiazepines Negative Cutoff: 100 ng/mL 10/28/2023 9:08 AM [facility] Cocaine Negative Cutoff: 150 ng/mL 10/28/2023 9:08 AM [facility] Comment: This cocaine immunoassay targets benzoylecgonine the primary metabolite of cocaine. Opiates Negative Cutoff: 300 ng/mL 10/28/2023 9:08 AM [facility] Phencyclidine Negative Cutoff: 25 ng/mL 10/28/2023 9:08 AM [facility] Tetrahydrocannabinol Negative Cutoff: 50 ng/mL 10/28/2023 9:08 AM [facility] Comment: This immunoassay targets delta-9 tetrahydrocannabinol carboxylic acid (THC-COOH), a metabolite of delta-9 tetrahydrocannabinol the main psychoactive ingredient of marijuana. ----ADDITIONAL INFORMATION---- This report is intended for use in clinical monitoring or management of patients. ??It is not intended for use in employment-related testing. Urine (Urine, Midstream) 10/27/2023 10:38 AM BEAMER OPERATOR 10/27/2023 10:03 PM [facility] Romana Diane M.D., Ph.D. LAB URI NE ORDERABLES [facility] [address] [place] [address] [facility] [address] [place] [address] [place] [address] * Phosphatidylethanol Confirmation (10/27/2023 10:33 AM [facility]) PEth 16:0/18:1 (POPEth) by LC-MS/MS <20 Cutoff: 10 ng/mL 10/29/2023 8:22 PM [facility] Comment: Testing performed at a x2 [...] <10 Cutoff: 10 ng/mL 10/29/2023 8:22 PM [facility] Comment: PEth 16:0/18:2 (PLPEth) Reference ranges are not well established PEth Interpretation Negative. 10/29 8:22 PM [facility] Comment: ----ADDITIONAL INFORMATION---- This report is intended for use in clinical monitoring and management of patients. ??It is not intended for use in employment-related testing. This test was developed and its performance characteristics determined by [facility] in a manner consistent with CLIA requirements. This test has not been cleared or approved by the U.S. Food and Drug Administration. Blood (Blood, Venous) 10/27/2023 10:33 AM BEAMER OPERATOR 10/27/2023 9:57 PM BEAMER OPERATOR Romana Diane M.D., Ph.D. LAB BLO OD ADD-ON Performing Organization Address [facility] Co de Phone Number [facility] [address] [place] [address] [facility] [address] [place] [address] [place] [address] * Duodenum, Entire examined duodenum Upper GI endoscopy-Gastroenterology Image Exam (10/08/2023 3:20 PM BEAMER OPERATOR) 10/08/2023 3:17 PM BEAMER OPERATOR Narrative [facility] - 10/08/2023 3:57 PM BEAMER OPERATOR This order has been created and auto-finalized to support the import of images acquired without order. The clinical documentation to support these images can be found on the encounter that produced images. Provider Not In System IMG NON RAD IMAGI NG PROCEDURES Performing Organization Address [facility] de Phone Number [facility] NA * Upper GI Endoscopy (10/08/2023 3:17 PM BEAMER OPERATOR) 10/08/2023 3:17 PM BEAMER OPERATOR Impressions [facility] - 10/08/2023 3:53 PM BEAMER OPERATOR Post-op Diagnoses: ? 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 ? - Mild portal hypertensive gastropathy. ? - Normal examined duodenum. ? - No specimens collected. Narrative [facility] - 10/08/2023 3:53 PM BEAMER OPERATOR Scot 6 GI GI Patient Name: Monique [...] Katja Umana M.D. GI PROCEDURE ORDERAB LES Performing Organization Address City/[facility] Co de Phone Number [facility] * Protein, Total, Body Fluid (10/08/2023 11:14 AM BEAMER OPERATOR) Protein, Total, BF 0.9 See Comment g/dL 10/08/2023 12:53 PM BEAMER OPERATOR DTL Comment: ----ADDITIONAL INFORMATION---- A pleural [...] clinical findings. All other fluids refer to [email or web address],SLlabs.com for further interpretive information. This test has been modified from the assistant plant control operator's instructions. Its performance characteristics were determined by [facility] in a manner consistent with CLIA requirements. This test has not been cleared or approved by the U.S. Food and Drug Administration. Fluid Type, Protein, Total Fluid, Peritoneal Fluid 10/08/2023 11:54 AM BEAMER OPERATOR DTL Fluid (Peritoneal Fluid) 10/08/2023 11:14 AM BEAMER OPERATOR 10/08/2023 12:09 PM BEAMER OPERATOR Katja Umana M.D. LAB BODY FLUIDS AND STOOLS ORDERABLES Performing Organization Address [facility] Co de Phone Number [facility] [address] [place] [address], [place] DTL [facility] [address] [place] [address] * Albumin, Body Fluid (10/08/2023 11:14 AM BEAMER OPERATOR) Pathologist [facility] Albumin BF 0.5 See Comment g/dL 10/08/2023 12:53 PM BEAMER OPERATOR DTL Comment: ----ADDITIONAL INFORMATION---- Peritoneal fluid albumin is used to calculate the serum-ascites albumin gradient (SAAG). Values greater than or equal to 1.1 g/dL suggest portal hypertension. Pleural fluid albumin may be used to calculate a serum-effusion albumin gradient. Values greater than 1.2 g/dL are most consistent with a transudative process. ?? All other fluids refer to www.CoverPage Publishings.Transactis for further interpretive information. This test has been modified from the assistant plant control operator's instructions. Its performance characteristics were determined by [facility] in a manner consistent with CLIA requirements. This test has not been cleared or approved by the U.S. Food and Drug Administration. Fluid Type, Albumin Fluid, Peritoneal Fluid 10/08/2023 11:54 AM BEAMER OPERATOR DTL Fluid (Peritoneal Fluid) 10/08/2023 11:14 AM BEAMER OPERATOR 10/08/2023 12:09 PM BEAMER OPERATOR Katja Umana M.D. LAB BODY FLUIDS AND STOOLS ORDERABLES [facility] [place] [address] [place] [address], [address] [address] * (TTE) 2D ECHO DOPPLER COLOR AND CONTRAST (10/07/2023 11:01 AM BEAMER OPERATOR) [facility] Ejection Fraction 68 MC CV [...] Region Laterality Modality Echocardiography 10/07/2023 9:54 AM BEAMER OPERATOR Impressions 10/07/2023 11:02 AM BEAMER OPERATOR Agitated saline contrast administered. Moderate intrapulmonary shunt. [...] the Order-Level Documents. Narrative 10/07/2023 11:02 AM BEAMER OPERATOR For the complete report, see the Order-Level [...] and Lateral 2 Views (10/06/2023 1:32 PM BEAMER OPERATOR) Anatomical Region Laterality Modality Chest, Thoracic RST LOS, Tho racic ARZ LOS, Thoracic FLA LOS N/A Digital Radiography Impressions 10/06/2023 1:35 PM BEAMER OPERATOR Shallow inspiration. New focal predominantly linear opacity [...] bilateral apical scarring. Narrative 10/06/2023 1:35 PM BEAMER OPERATOR EXAM: ??DX CHEST AP OR PA AND [...] Mild bilateral apical scarring. Katja Umana M.D. [facility] [place]AG[place] NG PROCEDURES * (ABNORMAL) Autoimmune Liver Disease Panel (10/06/2023 12:17 PM BEAMER OPERATOR) Mitochondrial Ab, M2, S <0.1 <0.1 (Negative) U 10/06/2023 9:06 PM BEAMER OPERATOR SDSC Antinuclear Ab, HEp-2 Substrate, S Positive 1:320(A) <1:80 (Negative) 10/06/2023 10:15 PM BEAMER OPERATOR SDS Comment: ----ADDITIONAL INFORMATION---- Method: Immunofluorescence using HEp-2 cellular substrate. NEGIN Titer: 1:320 10/06/2023 10:15 PM BEAMER OPERATOR SDSC NEGIN Pattern: Speckled 10/06/2023 10:15 PM BEAMER OPERATOR SDSC Smooth Muscle Ab Screen, S Negative Negative 10/07/2023 11:57 AM BEAMER OPERATOR SDS Comment: Negative: No further testing will be performed ----ADDITIONAL INFORMATION---- This test was developed and its performance characteristics determined by [facility] in a manner consistent with CLIA requirements. This test has not been cleared or approved by the U.S. Food and Drug Administration. Blood (Blood, Venous) 10/06/2023 12:17 PM BEAMER OPERATOR 10/06/2023 4:11 PM BEAMER OPERATOR Katja Umana M.D. LAB BLOOD ADD-ON [facility] [address] [place] [address] [facility] [address] [place] [address] [place] [id number] [place] [address] [place] [address] * HCV Ab Scrn w/Reflex to HCV PCR, Serum (10/06/2023 12:17 PM BEAMER OPERATOR) HCV Ab Screen, S Negative Negative 10/06/2023 9:12 PM BEAMER OPERATOR SDS Comment:Bglyhx-bw-paekne rat io is <1.00. Blood (Blood, Venous) 10/06/2023 12:17 PM BEAMER OPERATOR 10/06/2023 3:57 PM BEAMER OPERATOR Katja Umana M.D. LAB MICROBIOLOGY - B LOOD ORDERABLES Performing Organization Address City/[facility] Co de Phone Number [facility] [address] [place] [address] [facility] [address] [place] [place] [address] * Hepatitis A IgG Ab, Serum (10/06/2023 12:17 PM BEAMER OPERATOR) Pathologist [facility] Hepatitis A IgG Ab, S Positive 10/06/2023 8:53 PM BEAMER OPERATOR [facility] Comment: Result indicates immunity to hepatitis A infection from either vaccination or past exposure to hepatitis A. False-positive results may be observed in patients with CMV antibodies or heterophilic antibodies. ?? ----REFERENCE VALUE---- Unvaccinated: Negative Vaccinated: Positive Blood (Blood, Venous) 10/06/2023 12:17 PM BEAMER OPERATOR 10/06/2023 3:57 PM BEAMER OPERATOR Katja Umana M.D. LAB MICROBIOLOGY - B LOOD ORDERABLES Performing Organization Address City/[facility] Co de Phone Number [facility] [address] [place] [address] [place] [address] * AFP (Alpha-Fetoprotein), Tumor Marker (10/06/2023 12:17 PM BEAMER OPERATOR) [facility] Alpha-Fetoprotein, Tumor Marker, S 7.8 ng/mL 10/07/2023 3:00 PM BEAMER OPERATOR [facility] Comment: ----REFERENCE VALUE---- <8.4 Reference values are for non- subjects only; production of AFP elevates values in women. ----ADDITIONAL INFORMATION---- In this [place] assay AFP concentrations are <8.4 ng/mL for [...] method is an immunoenzymatic assay manufactured by [employer]. and is tested on the [employer] DxI 800. Values obtained with different assay methods or kits may be different and cannot be used interchangeably. ? Test results cannot be interpreted as absolute evidence of the presence or absence of malignant disease. Alpha-Fetoprotein values are not interpretable in females for the investigation of malignant disease. Blood (Blood, Venous) 10/06/2023 12:17 PM BEAMER OPERATOR 10/07/2023 1:04 PM BEAMER OPERATOR Katja Umana M.D. LAB BLOOD ADD-ON Performing Organization Address [facility] Co de Phone Number [facility] [address] [place] [address] [facility] [address] [place] [address] * HBc Total Ab, Serum (10/06/2023 12:17 PM BEAMER OPERATOR) Pathologist [facility] HBc Total Ab, S Negative Negative 10/06/2023 9:13 PM BEAMER OPERATOR [facility] Blood (Blood, Venous) 10/06/2023 12:17 PM BEAMER OPERATOR 10/06/2023 3:57 PM BEAMER OPERATOR Katja Umana M.D. LAB MICROBIOLOGY - B LOOD ORDERABLES Performing Organization Address [facility]/ZIP Co de Phone Number [facility] [address] [place] [address] [facility] [address] [place] [address] * HBs Antibody, Serum (10/06/2023 12:17 PM BEAMER OPERATOR) Pathologist [facility] HBs Antibody, S Negative 10/06/2023 9:14 PM BEAMER OPERATOR [facility] Comment: Patient is presumed to be not immune to infection with HBV. ----REFERENCE VALUE---- Unvaccinated: Negative Vaccinated: Positive HBs Antibody, Quantitative, S <5.0 mIU/mL 10/06/2023 9:14 PM BEAMER OPERATOR [facility] Comment: ----REFERENCE VALUE---- Unvaccinated: <5.0 Vaccinated: >=12.0 Blood (Blood, Venous) 10/06/2023 12:17 PM BEAMER OPERATOR 10/06/2023 3:57 PM BEAMER OPERATOR Katja Umana M.D. LAB MICROBIOLOGY - B LOOD ORDERABLES [facility] [address] [place] [address] [facility] [address] [place] [address] * Hepatitis B Surface Antigen (10/06/2023 12:17 PM BEAMER OPERATOR) HBs Antigen, S Negative Negative 10/06/2023 8:55 PM BEAMER OPERATOR [facility] Blood (Blood, Venous) 10/06/2023 12:17 PM BEAMER OPERATOR 10/06/2023 3:57 PM BEAMER OPERATOR Katja Umana M.D. LAB MICROBIOLOGY - B LOOD ORDERABLES [facility] [address] [place] [address] [facility] [address] [place] [address] * Colonoscopy (10/10/2015 2:45 PM BEAMER OPERATOR) 10/10/2015 2:45 PM BEAMER OPERATOR Tanner Calderón GI PROCEDURE [facility] [address] [id number] from Last 3 Months or Most Recently Relevant to Health Maintenance Care Teams Coating And Embossing Unit Operator Relationship Specialty Start Date End Date Elsewhere, Pcp PCP - General Family Medicine 12/07/23
--- OUTSIDE RECORDS SUMMARY | 2023-12-28 07:56 | XMS_ITS | Encounter Summary ---
Author Name Unknown Organization [facility] Address [address] [place] [address] Care Team Providers Care Fruit Checker Name Role Phone Elsewhere, Pcp Primary Care Provider Unavailabl e Encounter Details Date Type Department Care Team (Latest Contact Info) Description 12/21/2023 Clinical Communication Brent motta [facility] in [place], [place] [address] [place] [address] Katja Umana M.D. [address] [place] [address] Social History Tobacco Use Types Packs/Day Years Used Date Smoking Tobacco: Every Day Cigarettes 0.5 40.9 Started: 02/11/1983 Passive Smoke Exposure: Never Smokeless Tobacco: Never Alcohol Use Standard Drinks/Week Comments Not Currently 0 (1 standard drink = 0.6 oz pur e alcohol) [facility] Utilities Answer Date Recorded In the past 12 months has e [employer], gas, oil, or water [employer] threatened to shut off services in your [...] Date Recorded Employment status Working with temporary [employer] 10/15/2023 Housing Stability Answer Date Recorded What is your living situation today? I have a [facility] place to live 10/15/2023 Sex and Gender Information Value Date Recorded Sex Assigned at Female 10/06/2023 10:50 AM CASINO DEALER Gender Identity Female 10/06/2023 10:50 AM CASINO DEALER Sexual Orientation Straight 10/06/2023 10 :50 AM CASINO DEALER documented as of this encounter Miscellaneous Notes * Telephone Encounter - Liana Estrada - 12/21/2023 10:54 AM CDT Left message for patient to call back on 12/20. documented in this encounter Plan of Treatment Upcoming Encounters Date Type Department Care Team (Late st Contact Info) Description 01/19/2024 10:00 AM CDT Telemedicine Department of Nutrition and Diabetes Education in [place], [place] [address] [place] [address] Katja Umana M.D. [address] [place] [address] Taty Cunningham M.S., RDN, LD [address] [place] [phone] documented as of this encounter Visit Diagnoses Not on filedocumented in this encounter Additional Health Concerns Assessment Noted Time PHQ-9 Depression Total Score: 3 10/20/19 24 7:30 AM CASINO DEALER documented as of this encounter Care Teams Fruit Checker Relationship Specialty Start Date End Date Elsewhere, Pcp PCP - General Family Medicine 12/07/23 documented as of this encounter
--- OUTSIDE RECORDS SUMMARY | 2023-12-28 07:56 | XMS_ITS | Clinical Summary ---
Author Name Unknown Organization [facility] Address [address] [place] [address] Care Team Providers Care Staff Readiness Officer Name Role Phone Elsewhere, Pcp Primary Care Provider Unavailabl e Source Comments Patient records contain information from all sites at [facility]. For routine questions regarding patient records, call [phone] during business hours, M-F 8:00 AM - 5:00 PM Central Time. Record requests for emergency care only can be directed to [phone] at any time.[facility] Allergies No known active allergies Medications Medication [...] week. 53 tablet 10/28/2023 12/07/19 24 Discontinued(The rapy completed) varenicline [...] Team Description 12/21/2023 Clinical Communication Brent motta [facility] in [place], [place] [address] [place] [phone] Katja Umana M.D. 12/20/2023 2:00 PM CDT Virtual Visit Department of Nicotine Dependence, [facility], in [place], [place] [address] [place] [phone] Sudha Bernstein M.A., L.I.C.S.W., M.S.W. Nicotine Dependence Cigarettes With Withdrawal (Primary Dx) 12/20/2023 Orders Only Department of Nicotine Dependence, [facility], in [address] [phone] Sudha Bernstein M.A., L.I.Rica.S.W., M.S.W. 12/20/2023 Clinical Communication Division of Gastroenterology in [address] [phone] Katja Umana M.D. Scheduling 12/16/2023 9:34 AM CDT - 12/16/2023 11:22 AM CDT Hospital Encounter Department of Radiology, [facility], in [address] [address] Katja Umana M.D. Alcoholic Cirrhosis Of Liver With Ascites (HCC); Ascites Discharge Disposition: Home or Self Care 12/09/2023 4:30 PM CDT Office Visit [facility] for Transplantation and Clinical Regeneration in [address] [phone] Katja Umana M.D. Olson, Jody C, M.D. Alcoholic Cirrhosis Of Liver With Ascites (HCC) (Primary Dx); Ascites; Sarcopenia 12/08/2023 10:30 AM CDT Comprehensive Visit Section of Infectious Diseases in [address] [address] Katja Umana M.D. Mackey, Callie A, ESTEBAN, C.N.P., D.N.P. 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 Order Request 11/19/2023 10:08 AM COMPLAINT EVALUATION OFFICER - 11/19/2023 12:51 PM COMPLAINT EVALUATION OFFICER Hospital Encounter Department of Radiology, [facility], in [place], [place] [address] [place] [address] Felipe Morales M.D. Ascites Discharge Disposition: Home or Self Care 11/18/2023 11:00 AM COMPLAINT EVALUATION OFFICER Virtual Visit Department of Nicotine Dependence, [place], [place] [address] [place] [address] Sudha Bernstein M.A., Yesy.I.C.S.W., M.S.W. Nicotine Dependence Cigarettes With Withdrawal (Primary Dx) 11/18/2023 Orders Only Department of Nicotine Dependence, [place], [place] [address] [place] [phone] Sudha Bernstein M.A., Yesy.I.C.S.W., M.S.W. 11/11/2023 11:00 AM COMPLAINT EVALUATION OFFICER Virtual Visit Department of Nicotine Dependence, [place], [place] [address] [place] [address] Sudha Bernstein M.A., Yesy.I.C.S.W., M.S.W. Nicotine Dependence Cigarettes With Withdrawal (Primary Dx) 11/11/2023 Orders Only Department of Nicotine Dependence, [facility] in [place], [place] [address] [place] [address] Sudha Bernstein M.A., Yesy.I.C.S.W., M.S.W. 11/11/2023 Clinical Communication Department of Nicotine Dependence, [place], [place] [address] [place] [address] Sudha Bernstein M.A., Yesy.I.C.S.W., M.S.W. [facility] Med Request 11/05/2023 9:29 AM COMPLAINT EVALUATION OFFICER - 11/05/2023 12:20 PM COMPLAINT EVALUATION OFFICER Hospital Encounter Department of Radiology, [facility], in [place], [place] [address] [place] [address] Felipe Morales M.D. Ascites Discharge Disposition: Home or Self Care 11/01/2023 12:28 PM COMPLAINT EVALUATION OFFICER - 11/01/2023 11:59 PM COMPLAINT EVALUATION OFFICER Hospital Encounter Department of Laboratory Medicine in [address] [address] Katja Umana M.D. Alcoholic Cirrhosis Of Liver With Ascites (HCC) Discharge Disposition: Home or Self Care 10/28/2023 11:00 AM COMPLAINT EVALUATION OFFICER Virtual Visit Department of Nicotine Dependence, [place], [place] [address] [place] [phone] Romana Diane M.D., Ph.D. Sudha Bernstein M.A., L.I.C.S.W., M.S.W. Nicotine Dependence Cigarettes 10/28/2023 Orders Only [facility] for Transplantation and Clinical Regeneration in [address] [phone] Katja Umana M.D. Alcoholic Cirrhosis Of Liver With Ascites (HCC) (Primary Dx) 10/28/2023 Orders Only Department of Nicotine Dependence, [facility] in [place], [place] [address] [place] [phone] Sudha Bernstein M.A., Yesy.I.C.S.W., M.S.W. 10/28/2023 Clinical Communication Department of Nicotine Dependence, [place], [place] [address] [place] [phone] Sudha Bernstein M.A., L.I.C.S.W., M.S.W. NDC Med Request 10/27/2023 10:26 AM COMPLAINT EVALUATION OFFICER - 10/27/2023 11:59 PM COMPLAINT EVALUATION OFFICER Hospital Encounter Department of Laboratory Medicine in [address] [address] Katja Umana M.D. Alcoholic Cirrhosis Of Liver With Ascites (HCC); Alcohol Moderate Or Severe Use Disorder (Dependence) Uncomplicated (HCC) Discharge Disposition: Home or Self Care 10/27/2023 10:26 AM COMPLAINT EVALUATION OFFICER - 10/27/2023 11:59 PM COMPLAINT EVALUATION OFFICER Hospital Encounter Department of Laboratory Medicine in [address] [address] Romana Diane M.D., Ph.D. Alcohol Moderate Or Severe Use Disorder (Dependence) Uncomplicated (HCC) Discharge Disposition: Home or Self Care 10/24/2023 Clinical Communication Division of Gastroenterology in [address] [phone] Katja Umana M.D. 10/22/2023 7:27 AM COMPLAINT EVALUATION OFFICER - 10/22/2023 3:44 PM COMPLAINT EVALUATION OFFICER Hospital Encounter Department of Radiology[address] [address] Katja Umana M.D. Ascites Discharge Disposition: Home or Self Care 10/20/2023 1:00 PM COMPLAINT EVALUATION OFFICER - 10/20/2023 11:59 PM COMPLAINT EVALUATION OFFICER Hospital Encounter Department of Laboratory Medicine in [address] [address] Katja Umana M.D. Ascites Discharge Disposition: Home or Self Care 10/18/2023 Clinical Communication Division of Gastroenterology in [address] [address] Katja Umana M.D. 10/15/2023 10:40 AM COMPLAINT EVALUATION OFFICER Telemedicine Division of Gastroenterology in [address] [address] Katja Umana M.D. Ascites (Primary Dx); Alcoholic Cirrhosis Of Liver With Ascites (HCC); Esophageal Varices Without Bleeding (HCC) 10/09/2023 Documentation Division of Gastroenterology in [address] [phone] Joy Rudd M.B.B.S. 10/09/2023 Nurse Triage Department of Family Medicine, [address] in [place] [address] [place] [address] Katharine Domínguez R.N. Follow-up 10/08/2023 3:20 PM COMPLAINT EVALUATION OFFICER Ancillary Procedure Department of Gastroenterology 10/08/2023 3:19 PM COMPLAINT EVALUATION OFFICER Anesthesia Event Division of Gastroenterology in [address] [phone] Jeffy Moy, JAGUAR ORELLANA Brandon W, M.D. 10/08/2023 1:09 PM COMPLAINT EVALUATION OFFICER - 10/08/2023 4:27 PM COMPLAINT EVALUATION OFFICER Hospital Encounter Division of Gastroenterology in [address] [address] Katja Umana M.D. Alcoholic Cirrhosis Of Liver With Ascites (HCC) Discharge Disposition: Home or Self Care 10/08/2023 10:43 AM COMPLAINT EVALUATION OFFICER - 10/08/2023 1:05 PM COMPLAINT EVALUATION OFFICER Hospital Encounter Department of Radiology, [facility] in [address] [address] Katja Umana M.D. Alcoholic Cirrhosis Of Liver With Ascites (HCC) Discharge Disposition: Home or Self Care 10/08/2023 Clinical Communication Division of Gastroenterology in [address] [address] Felipe Morales M.D. Hepatobiliary (Ascites elijah) 10/07/2023 9:50 AM COMPLAINT EVALUATION OFFICER - 10/07/2023 11:59 PM COMPLAINT EVALUATION OFFICER Hospital Encounter Department of Cardiovascular Diseases in [place], [place] [address] [place] [phone] Katja Umana M.D. Alcoholic Cirrhosis Of Liver With Ascites (HCC) Discharge Disposition: Home or Self Care 10/06/2023 2:00 PM COMPLAINT EVALUATION OFFICER Education Division of Gastroenterology in [place], [place] [address] [place] [phone] Ebony Bakc M.D. Orth, Dianne M, RMark Ascites; Alcoholic Cirrhosis Of Liver With Ascites (HCC) 10/06/2023 12:45 PM COMPLAINT EVALUATION OFFICER - 10/06/2023 11:59 PM COMPLAINT EVALUATION OFFICER Hospital Encounter Department of Radiology, [facility], in [place], [place] [address] [place] [phone] Katja Umana M.D. Alcoholic Cirrhosis Of Liver With Ascites (HCC) Discharge Disposition: Home or Self Care 10/06/2023 11:00 AM COMPLAINT EVALUATION OFFICER Comprehensive Visit [facility] [place], [facility] Transplantation and Clinical Regeneration in [place], [place] [address] [place] [phone] Ebony Back M.D. Leise, Michael D, M.D. Ascites; Alcoholic Cirrhosis Of Liver With Ascites (HCC) 10/05/2023 Orders Only Department of Oncology in [place], [place] [address] [place] [phone] Ebony Back M.D. Ascites (Primary Dx); Alcoholic [...] the past 12 months has th e [employer], gas, oil, or water [employer] threatened to shut off services in your [...] your living situation today? I have a [facility] place to live 10/15/2023 Sex and Gender Information Value Date Recorded Sex Assigned at Female 10/06/2023 10:50 AM COMPLAINT EVALUATION OFFICER Gender Identity Female 10/06/2023 10:50 AM COMPLAINT EVALUATION OFFICER Sexual Orientation Straight 10/06/2023 10 :50 AM COMPLAINT EVALUATION OFFICER Last Filed Vital Signs Vital Sign Reading Time Taken Comments Blood Pressure 101/47 12/16/2023 10:52 AM CDT Pulse 77 12/16/2023 10:30 AM CDT Temperature 34.7 ??C (94.5 ??F) 12/09/2023 4:21 PM CD T Respiratory Rate 24 10/08/2023 4:16 PM COMPLAINT EVALUATION OFFICER Oxygen Saturation 100% 12/16/2023 10:30 AM CDT [...] Department of Nutrition and Diabetes Education in [place], [place] [address] [place] [phone] Katja Umana M.D. [address] [place] [phone] Taty Cunningham M.S., RDN, LD [address] [place] [phone] Health Maintenance Due Date Last Done Comments Abdominal Ultrasound 1960 CT Colonography 1960 Cologuard 1960 HIV Screening 1960 Lipid (Cholesterol) Screening 1960 Lung Cancer Screening 1960 Zoster Vaccines (1 of 2) 2010 Mammogram 01/12/2016 01/11/2015 (Perf ormed elsewhere) Colonoscopy 10/10/2020 10/10/2015, 0909/2014 (Performed elsewhere) Colorectal Cancer Surveillance 10/10/2020 COVID-19 [...] inpatients and all outpatients) 11/19/2023 11:55 AM COMPLAINT EVALUATION OFFICER Ascites CELL COUNT AND DIFFERENTIAL, BF Timed 11/19/2023 10:50 AM COMPLAINT EVALUATION OFFICER Ascites BACTERIAL CULTURE, AEROBIC + SUSC Timed 11/19/2023 10:50 AM COMPLAINT EVALUATION OFFICER Ascites US PARACENTESIS WITH IMAGING GUIDANCE RAD - Routine (most inpatients and all outpatients) 11/05/2023 11:25 AM COMPLAINT EVALUATION OFFICER Ascites CELL COUNT AND DIFFERENTIAL, BF Timed 11/05/2023 10:07 AM COMPLAINT EVALUATION OFFICER Ascites BACTERIAL CULTURE, AEROBIC + SUSC Timed 11/05/2023 10:07 AM COMPLAINT EVALUATION OFFICER Ascites BASIC METABOLIC PANEL, S/P Routine 11/01/2023 12:49 PM COMPLAINT EVALUATION OFFICER Alcoholic Cirrhosis Of Liver With Ascites (HCC) CONFIRMED DRUG ABUSE PANEL, U Routine 10/27/2023 10:38 AM COMPLAINT EVALUATION OFFICER Alcohol Moderate Or Severe Use Disorder (Dependence) Uncomplicated (HCC) ETHYL GLUCURONIDE CONFIRMATION, U Routine 10/27/2023 10:38 AM COMPLAINT EVALUATION OFFICER Alcohol Moderate Or Severe Use Disorder (Dependence) Uncomplicated (HCC) PHOSPHATIDYLETHANOL CONFIRMATION, B Routine 10/27/2023 10:33 AM COMPLAINT EVALUATION OFFICER Alcohol Moderate Or Severe Use Disorder (Dependence) Uncomplicated (HCC) BASIC METABOLIC PANEL, S/P Routine 10/27/2023 10:33 AM COMPLAINT EVALUATION OFFICER Alcoholic Cirrhosis Of Liver With Ascites (HCC) US PARACENTESIS WITH IMAGING GUIDANCE RAD - Routine (most inpatients and all outpatients) 10/22/2023 10:18 AM COMPLAINT EVALUATION OFFICER Ascites CELL COUNT AND DIFFERENTIAL, BF Timed 10/22/2023 8:54 AM COMPLAINT EVALUATION OFFICER Ascites BACTERIAL CULTURE, AEROBIC + SUSC Timed 10/22/2023 8:54 AM COMPLAINT EVALUATION OFFICER Ascites BASIC METABOLIC PANEL, S/P Routine 10/20/2023 1:08 PM COMPLAINT EVALUATION OFFICER Ascites GASTROENTEROLOGY IMAGE EXAM Routine 10/08/2023 3:20 PM COMPLAINT EVALUATION OFFICER UPPER GI ENDOSCOPY Routine 10/08/2023 3:17 PM COMPLAINT EVALUATION OFFICER Alcoholic Cirrhosis Of Liver With Ascites (HCC) EGD (ESOPHAGOGASTRODUODENOSC OPY) RESTRICTED Routine 10/08/2023 3:17 PM COMPLAINT EVALUATION OFFICER Alcoholic Cirrhosis Of Liver With Ascites (HCC) US PARACENTESIS WITH IMAGING GUIDANCE RAD - Routine (most inpatients and all outpatients) 10/08/2023 12:57 PM COMPLAINT EVALUATION OFFICER Alcoholic Cirrhosis Of Liver With Ascites (HCC) PROTEIN, TOTAL, BF Timed 10/08/2023 11:14 AM COMPLAINT EVALUATION OFFICER ALBUMIN, BODY FLUID Timed 10/08/2023 11:14 AM COMPLAINT EVALUATION OFFICER CELL COUNT AND DIFFERENTIAL, BF Timed 10/08/2023 11:14 AM COMPLAINT EVALUATION OFFICER BACTERIAL CULTURE, AEROBIC + SUSC Timed 10/08/2023 11:14 AM COMPLAINT EVALUATION OFFICER (TTE) 2D ECHO DOPPLER COLOR AND CONTRAST Routine 10/07/2023 11:01 AM COMPLAINT EVALUATION OFFICER Alcoholic Cirrhosis Of Liver With Ascites (HCC) DX CHEST AP OR PA AND LATERAL 2 VIEWS RAD - Routine (most inpatients and all outpatients) 10/06/2023 1:32 PM COMPLAINT EVALUATION OFFICER Alcoholic Cirrhosis Of Liver With Ascites (HCC) AUTOIMMUNE LIVER DISEASE PANEL, S Routine 10/06/2023 12:17 PM COMPLAINT EVALUATION OFFICER Alcoholic Cirrhosis Of Liver With Ascites (HCC) ALPHA-FETOPROTEIN (AFP) TM, S Routine 10/06/2023 12:17 PM COMPLAINT EVALUATION OFFICER Alcoholic Cirrhosis Of Liver With Ascites (HCC) PROTHROMBIN TIME (PT), P Routine 024 12:17 PM COMPLAINT EVALUATION OFFICER Alcoholic Cirrhosis Of Liver With Ascites (HCC) COMPREHENSIVE METABOLIC PANEL, S/P Routine 10/06/2023 12:17 PM COMPLAINT EVALUATION OFFICER Alcoholic Cirrhosis Of Liver With Ascites (HCC) CBC WITH DIFFERENTIAL, B Routine 024 12:17 PM COMPLAINT EVALUATION OFFICER Alcoholic Cirrhosis Of Liver With Ascites (HCC) HEPATITIS A IGG AB S Routine 10/06/2023 12:17 PM COMPLAINT EVALUATION OFFICER Alcoholic Cirrhosis Of Liver With Ascites (HCC) HBC TOTAL AB, SERUM Routine 10/06/2023 12:17 PM COMPLAINT EVALUATION OFFICER Alcoholic Cirrhosis Of Liver With Ascites (HCC) HEPATITIS B SURFACE ANTIGEN Routine 10/06/2023 12:17 PM COMPLAINT EVALUATION OFFICER Alcoholic Cirrhosis Of Liver With Ascites (HCC) HBS ANTIBODY, SERUM Routine 10/06/2023 12:17 PM COMPLAINT EVALUATION OFFICER Alcoholic Cirrhosis Of Liver With Ascites (HCC) HCV AB SCRN W/REFLEX TO HCV PCR, S Routine 10/06/2023 12:17 PM COMPLAINT EVALUATION OFFICER Alcoholic Cirrhosis Of Liver With Ascites (HCC) COLONOSCOPY Routine 10/10/2015 2:45 PM COMPLAINT EVALUATION OFFICER from Last 3 Months or Most Recently [...] IMPRESSION: Ultrasound-guided paracentesis. EP Katja Umana M.D. IM US PROCEDURES * (ABNORMAL) Prothrombin Time (PT) [...] CDT Katja Umana M.D. LAB BLOOD ADD-ON [facility] [employer] [facility] [address] [place] [address], [facility] DTL [address] [address] * (ABNORMAL) CBC with Differential, Blood (12/09/2023 [...] CDT Katja Umana M.D. LAB BLOOD ADD-ON [facility] [address] [place] [address], [place] DTL [facility] [address] [place] [address] [facility] [address] [place] [address] * (ABNORMAL) Comprehensive Metabolic Panel (12/09/2023 5:16 PM CDT) Only the most recent of2 resultswithin the time period is included. [facility] Potassium, S 5.0 3.6 - 5.2 mmol/L [...] M.D. LAB BLOOD ADD-ON Performing Organization Address City/[facility]/ZIP Co de Phone Number [facility] [address] [place] [address], [place] [address] [place] [address] * Bacterial Culture, Aerobic + Susceptibility (11/19/2023 10:50 AM COMPLAINT EVALUATION OFFICER) Only the most recent of4 resultswithin the time period is included. Bacterial Culture, Aerobic + Susc No growth after 5 days of incubation. 11/24/2023 8:27 AM CDT DTL Fluid (Peritoneal Fluid) 11/19/2023 10:50 AM COMPLAINT EVALUATION OFFICER Narrative [facility] - 11/24/2023 8:27 AM CDT Bacterial Culture: Received Bactec aerobic and Bactec anaerobic bottles Felipe Morales M.D. LAB MICROBIOLOGY - GENERAL ORDERABLES Performing Organization Address City/[facility]/ZIP Co de Phone Number [facility] [address] [place] [address], [facility] [address] [place] [address] * Cell Count and Differential, Body Fluid (11/19/2023 10:50 AM COMPLAINT EVALUATION OFFICER) Only the most recent of4 resultswithin the time period is included. Fluid Type Peritoneal /Paracente sis 11/19/2023 12:39 PM COMPLAINT EVALUATION OFFICER DHPM Gross Appearance Serous 11/19/19 24 12:39 PM COMPLAINT EVALUATION OFFICER DHPM Total Nucleated Cells 201 /mcL 11/19/2023 12:39 PM COMPLAINT EVALUATION OFFICER DHPM Comment: ----REFERENCE VALUE---- Synovial: <150 /mcL Peritoneal: <500 /mcL Pleural: <500 /mcL Pericardial: <500 /mcL ----ADDITIONAL INFORMATION---- This test has been modified from the wire brusher's instructions. Its performance characteristics were determined by [facility] in a manner consistent with CLIA requirements. This test has not been cleared or approved by the U.S. Food and Drug Administration. Neutrophils 20 % 11/19/2023 1:42 PM COMPLAINT EVALUATION OFFICER DHPM Comment: ----REFERENCE VALUE---- Synovial: <25% Peritoneal: <25% Pleural: <25% Pericardial: <25% Lymphocytes 16 Synovial <75% % 11/19/2023 1:42 PM COMPLAINT EVALUATION OFFICER DHPM Monocytes/Macropha ges 60 Synovial <70% % 11/19/2023 1:42 PM COMPLAINT EVALUATION OFFICER DHPM Other Cells 4 % 11/19/2023 1:42 PM COMPLAINT EVALUATION OFFICER DHPM Comment: ----REFERENCE VALUE---- The reference range and other method performance specifications have not been established for this bodyfluid. The test result must be integrated into the clinical context for interpretation. Other Cells Are: See Comment 11/19/2023 1:42 PM COMPLAINT EVALUATION OFFICER DHPM Comment:Mesothelial cells Comment See Comment 11/19/2023 1:42 PM COMPLAINT EVALUATION OFFICER DHPM Comment:No blasts or maligna nt cells seen. Reviewed by: Jose 11/19/2023 1:42 PM COMPLAINT EVALUATION OFFICER DHPM Fluid (Peritoneal Fluid) 11/19/2023 10:50 AM COMPLAINT EVALUATION OFFICER Felipe Morales M.D. LAB BODY FLUIDS AND STOOLS ORDERABLES [facility] [address] [place] [address], [facility] [address] [place] [address] * (ABNORMAL) Basic Metabolic Panel (11/01/2023 12:49 PM COMPLAINT EVALUATION OFFICER) Only the most recent of3 resultswithin the time period is included. Potassium, P 4.1 3.6 - 5.2 mmol/L 11/01/2023 1:13 PM COMPLAINT EVALUATION OFFICER CNFL Sodium, P 128(L) 135 - 145 mmol/L 11/01/2023 1:13 PM COMPLAINT EVALUATION OFFICER CNFL Chloride, P 95(L) 98 - 107 mmol/L 11/01/2023 1:13 PM COMPLAINT EVALUATION OFFICER CNFL Bicarbonate, P 26 22 - 29 mmol/L 11/01/2023 1:13 PM COMPLAINT EVALUATION OFFICER CNFL Anion Gap, P 7 7 - 15 11/01/2023 1:13 PM COMPLAINT EVALUATION OFFICER CNFL BUN (Blood Urea Nitrogen), P 10 6 - 21 mg/dL 11/01/2023 1:13 PM COMPLAINT EVALUATION OFFICER CNFL Creatinine 0.42(L) 0.59 - 1.04 mg/dL 11/01/2023 1:13 PM COMPLAINT EVALUATION OFFICER CNFL Estimated GFR (eGFR) >90 >=60 mL/min/BSA 11/01/2023 1:13 PM COMPLAINT EVALUATION OFFICER CNFL Comment: Estimated GFR calculated using the 2020 CKD_EPI creatinine equation. Calcium, Total, P 8.3(L) 8.8 - 10.2 mg/dL 11/01/2023 1:13 PM COMPLAINT EVALUATION OFFICER CNFL Glucose, P 105 70 - 140 mg/dL 11/01/2023 1:13 PM COMPLAINT EVALUATION OFFICER CNFL Blood (Blood, Venous) 11/01/2023 12:49 PM COMPLAINT EVALUATION OFFICER 11/01/2023 12:54 PM COMPLAINT EVALUATION OFFICER Katja Umana M.D. LAB BLOOD ADD-ON [facility] [address] [place], [place] [id number], [facility] CNFL [facility] in [address] [address] * Ethyl Glucuronide Confirmation, Random, Urine (10/27/2023 10:38 AM COMPLAINT EVALUATION OFFICER) Ethyl Glucuronide Confirmation, U Negative Cutoff: 250 ng/mL 10/29/2023 8:19 AM COMPLAINT EVALUATION OFFICER [facility]SC Ethyl Sulfate Negative Cutoff: 100 ng/mL 10/29/2023 8:19 AM COMPLAINT EVALUATION OFFICER [facility]SC Ethyl Gluc/Sulfate Interpretation Negative. 10/29/2023 8:19 AM [facility] Comment: ----ADDITIONAL INFORMATION---- This report is intended for use in clinical monitoring and management of patients. ??It is not intended for use in employment-related testing. This test was developed and its performance characteristics determined by [facility] in a manner consistent with CLIA requirements. This test has not been cleared or approved by the U.S. Food and Drug Administration. Urine (Urine, Midstream) 10/27/2023 10:38 AM COMPLAINT EVALUATION OFFICER 10/27/2023 10:00 PM [facility] Romana Diane M.D., Ph.D. LAB URI NE ORDERABLES [facility] [address] [place] [address] [facility] [address] [place] [address] [place] [address] * Drug Abuse Survey with Confirmation, Urine (10/27/2023 10:38 AM [facility]) Alcohol Negative Cutoff: 10 mg/dL 10/28/2023 9:08 AM [facility] Amphetamines Negative Cutoff: 500 ng/mL 10/28/2023 9:08 AM [facility] Barbiturates Negative Cutoff: 200 ng/mL 10/28/2023 9:08 AM [facility] Benzodiazepines Negative Cutoff: 100 ng/mL 10/28/2023 9:08 AM [facility] Cocaine Negative Cutoff: 150 ng/mL 10/28/2023 9:08 AM [facility] Comment: This cocaine immunoassay targets benzoylecgonine the primary metabolite of cocaine. Opiates Negative Cutoff: 300 ng/mL 10/28/2023 9:08 AM [facility] Phencyclidine Negative Cutoff: 25 ng/mL 10/28/2023 9:08 AM [facility] Tetrahydrocannabinol Negative Cutoff: 50 ng/mL 10/28/2023 9:08 AM [facility] Comment: This immunoassay targets delta-9 tetrahydrocannabinol carboxylic acid (THC-COOH), a metabolite of delta-9 tetrahydrocannabinol the main psychoactive ingredient of marijuana. ----ADDITIONAL INFORMATION---- This report is intended for use in clinical monitoring or management of patients. ??It is not intended for use in employment-related testing. Urine (Urine, Midstream) 10/27/2023 10:38 AM COMPLAINT EVALUATION OFFICER 10/27/2023 10:03 PM COMPLAINT EVALUATION OFFICER Romana Diane M.D., Ph.D. LAB URI NE ORDERABLES [facility] [address] [place] [address] [facility] [address] [place] [address] [place] [address] * Phosphatidylethanol Confirmation (10/27/2023 10:33 AM COMPLAINT EVALUATION OFFICER) PEth 16:0/18:1 (POPEth) by LC-MS/MS <20 Cutoff: 10 ng/mL 10/29/2023 8:22 PM COMPLAINT EVALUATION OFFICER SDS Comment: Testing performed at a x2 dilution; [...] <10 Cutoff: 10 ng/mL 10/29/2023 8:22 PM COMPLAINT EVALUATION OFFICER SDSC Comment: PEth 16:0/18:2 (PLPEth) Reference ranges are not well established PEth Interpretation Negative. 10/29 8:22 PM COMPLAINT EVALUATION OFFICER SDSC Comment: ----ADDITIONAL INFORMATION---- This report is intended for use in clinical monitoring and management of patients. ??It is not intended for use in employment-related testing. This test was developed and its performance characteristics determined by [facility] in a manner consistent with CLIA requirements. This test has not been cleared or approved by the U.S. Food and Drug Administration. Blood (Blood, Venous) 10/27/2023 10:33 AM COMPLAINT EVALUATION OFFICER 10/27/2023 9:57 PM COMPLAINT EVALUATION OFFICER Romana Diane M.D., Ph.D. LAB BLO OD ADD-ON Performing Organization Address City/[facility]/ZIP Co de Phone Number [facility] [address] [place] [address] [facility] [address] [place] [address] [place] [address] * Duodenum, Entire examined duodenum Upper GI endoscopy-Gastroenterology Image Exam (10/08/2023 3:20 PM COMPLAINT EVALUATION OFFICER) 10/08/2023 3:17 PM COMPLAINT EVALUATION OFFICER Narrative [facility] - 10/08/2023 3:57 PM COMPLAINT EVALUATION OFFICER This order has been created and auto-finalized to support the import of images acquired without order. The clinical documentation to support these images can be found on the encounter that produced images. Provider Not In System IMG NON RAD IMAGI NG PROCEDURES Performing Organization Address [facility] Co de Phone Number IIMN NA * Upper GI Endoscopy (10/08/2023 3:17 PM COMPLAINT EVALUATION OFFICER) 10/08/2023 3:17 PM COMPLAINT EVALUATION OFFICER Impressions [facility] - 10/08/2023 3:53 PM COMPLAINT EVALUATION OFFICER Post-op Diagnoses: ? 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 ? - Mild portal hypertensive gastropathy. ? - Normal examined duodenum. ? - No specimens collected. Narrative [facility] - 10/08/2023 3:53 PM COMPLAINT EVALUATION OFFICER Scot 6 GI GI Patient Name: Monique [...] GI PROCEDURE ORDERAB LES Performing Organization Address [facility] Co de Phone Number GERARDO PINA * Protein, Total, Body Fluid (10/08/2023 11:14 AM COMPLAINT EVALUATION OFFICER) Protein, Total, BF 0.9 See Comment g/dL 10/08/2023 12:53 PM COMPLAINT EVALUATION OFFICER DTL Comment: ----ADDITIONAL INFORMATION---- A pleural fluid [...] clinical findings. All other fluids refer to [email or web address] for further interpretive information. This test has been modified from the wire brusher's instructions. Its performance characteristics were determined by [facility] in a manner consistent with CLIA requirements. This test has not been cleared or approved by the U.S. Food and Drug Administration. Fluid Type, Protein, Total Fluid, Peritoneal Fluid 10/08/2023 11:54 AM COMPLAINT EVALUATION OFFICER DTL Fluid (Peritoneal Fluid) 10/08/2023 11:14 AM COMPLAINT EVALUATION OFFICER 10/08/2023 12:09 PM COMPLAINT EVALUATION OFFICER Katja Umana M.D. LAB BODY FLUIDS AND STOOLS ORDERABLES Performing Organization Address [facility] Co de Phone Number [facility] [address] [place] [address], [facility] DTL [facility] [address] [place] [address] * Albumin, Body Fluid (10/08/2023 11:14 AM COMPLAINT EVALUATION OFFICER) Albumin BF 0.5 See Comment g/dL 10/08/2023 12:53 PM COMPLAINT EVALUATION OFFICER DTL Comment: ----ADDITIONAL INFORMATION---- Peritoneal fluid albumin is used to calculate the serum-ascites albumin gradient (SAAG). Values greater than or equal to 1.1 g/dL suggest portal hypertension. Pleural fluid albumin may be used to calculate a serum-effusion albumin gradient. Values greater than 1.2 g/dL are most consistent with a transudative process. ?? All other fluids refer to [email or web address] for further interpretive information. This test has been modified from the wire brusher's instructions. Its performance characteristics were determined by [facility] in a manner consistent with CLIA requirements. This test has not been cleared or approved by the U.S. Food and Drug Administration. Fluid Type, Albumin Fluid, Peritoneal Fluid 10/08/2023 11:54 AM COMPLAINT EVALUATION OFFICER DTL Fluid (Peritoneal Fluid) 10/08/2023 11:14 AM COMPLAINT EVALUATION OFFICER 10/08/2023 12:09 PM COMPLAINT EVALUATION OFFICER Katja Umana M.D. LAB BODY FLUIDS AND STOOLS ORDERABLES [facility] [address] [place] [address], [facility] Laboratories[facility] [address] [place] [address] * (TTE) 2D ECHO DOPPLER COLOR AND CONTRAST (10/07/2023 11:01 AM COMPLAINT EVALUATION OFFICER) Ejection Fraction 68 MC CV EIMS Proximal [...] Region Laterality Modality Echocardiography 10/07/2023 9:54 AM COMPLAINT EVALUATION OFFICER Impressions 10/07/2023 11:02 AM COMPLAINT EVALUATION OFFICER Agitated saline contrast administered. Moderate intrapulmonary shunt. [...] the Order-Level Documents. Narrative 10/07/2023 11:02 AM COMPLAINT EVALUATION OFFICER For the complete report, see the Order-Level [...] and Lateral 2 Views (10/06/2023 1:32 PM COMPLAINT EVALUATION OFFICER) Anatomical Region Laterality Modality Chest, Thoracic RST LOS, Tho racic ARZ LOS, Thoracic FLA LOS N/A Digital Radiography Impressions 10/06/2023 1:35 PM COMPLAINT EVALUATION OFFICER Shallow inspiration. New focal predominantly linear opacity [...] bilateral apical scarring. Narrative 10/06/2023 1:35 PM COMPLAINT EVALUATION OFFICER EXAM: ??DX CHEST AP OR PA AND [...] Autoimmune Liver Disease Panel (10/06/2023 12:17 PM COMPLAINT EVALUATION OFFICER) Mitochondrial Ab, M2, S <0.1 <0.1 (Negative) U 10/06/2023 9:06 PM COMPLAINT EVALUATION OFFICER SDSC Antinuclear Ab, HEp-2 Substrate, S Positive 1:320(A) <1:80 (Negative) 10/06/2023 10:15 PM COMPLAINT EVALUATION OFFICER SDS Comment: ----ADDITIONAL INFORMATION---- Method: Immunofluorescence using HEp-2 cellular substrate. NEGIN Titer: 1:320 10/06/2023 10:15 PM COMPLAINT EVALUATION OFFICER SDSC NEGIN Pattern: Speckled 10/06/2023 10:15 PM COMPLAINT EVALUATION OFFICER SDSC Smooth Muscle Ab Screen, S Negative Negative 10/07/2023 11:57 AM COMPLAINT EVALUATION OFFICER SDSC Comment: Negative: No further testing will be performed ----ADDITIONAL INFORMATION---- This test was developed and its performance characteristics determined by [facility] in a manner consistent with CLIA requirements. This test has not been cleared or approved by the U.S. Food and Drug Administration. Blood (Blood, Venous) 10/06/2023 12:17 PM COMPLAINT EVALUATION OFFICER 10/06/2023 4:11 PM COMPLAINT EVALUATION OFFICER Katja Umana M.D. LAB BLOOD ADD-ON Performing Organization Address City/[facility]/ZIP Co de Phone Number [facility] [address] [place] [address] [facility] [address] [place] [address] [place] [address] [place] [address] * HCV Ab Scrn w/Reflex to HCV PCR, Serum (10/06/2023 12:17 PM COMPLAINT EVALUATION OFFICER) HCV Ab Screen, S Negative Negative 10/06/2023 9:12 PM COMPLAINT EVALUATION OFFICER [facility] Comment:Aliood-gd-vdpsts rat io is <1.00. Blood (Blood, Venous) 10/06/2023 12:17 PM COMPLAINT EVALUATION OFFICER 10/06/2023 3:57 PM COMPLAINT EVALUATION OFFICER Katja Umana M.D. LAB MICROBIOLOGY - B LOOD ORDERABLES Performing Organization Address City/[facility]/ZIP Co de Phone Number [facility] [address] [place] [address] [facility] [address] [place] [address] * Hepatitis A IgG Ab, Serum (10/06/2023 12:17 PM COMPLAINT EVALUATION OFFICER) Pathologist [facility] Hepatitis A IgG Ab, S Positive 10/06/2023 8:53 PM COMPLAINT EVALUATION OFFICER [facility] Comment: Result indicates immunity to hepatitis A infection from either vaccination or past exposure to hepatitis A. False-positive results may be observed in patients with CMV antibodies or heterophilic antibodies. ?? ----REFERENCE VALUE---- Unvaccinated: Negative Vaccinated: Positive Blood (Blood, Venous) 10/06/2023 12:17 PM COMPLAINT EVALUATION OFFICER 10/06/2023 3:57 PM COMPLAINT EVALUATION OFFICER Katja Umana M.D. LAB MICROBIOLOGY - B LOOD ORDERABLES [facility] [address] [place] [address] [facility] [address] [place] [address] * AFP (Alpha-Fetoprotein), Tumor Marker (10/06/2023 12:17 PM COMPLAINT EVALUATION OFFICER) [facility] Alpha-Fetoprotein, Tumor Marker, S 7.8 ng/mL 10/07/2023 3:00 PM COMPLAINT EVALUATION OFFICER [facility] Comment: ----REFERENCE VALUE---- <8.4 Reference values [...] method is an immunoenzymatic assay manufactured by [employer]. and is tested on the [employer] DxI 800. Values obtained with different assay methods or kits may be different and cannot be used interchangeably. ? Test results cannot be interpreted as absolute evidence of the presence or absence of malignant disease. Alpha-Fetoprotein values are not interpretable in females for the investigation of malignant disease. Blood (Blood, Venous) 10/06/2023 12:17 PM COMPLAINT EVALUATION OFFICER 10/07/2023 1:04 PM COMPLAINT EVALUATION OFFICER Katja Umana M.D. LAB BLOOD ADD-ON Performing Organization Address [facility] Co de Phone Number [facility] [address] [place] [address] [facility] [address] [place] [address] [place] [address] * HBc Total Ab, Serum (10/06/2023 12:17 PM COMPLAINT EVALUATION OFFICER) Pathologist [facility] HBc Total Ab, S Negative Negative 10/06/2023 9:13 PM COMPLAINT EVALUATION OFFICER [facility] Blood (Blood, Venous) 10/06/2023 12:17 PM COMPLAINT EVALUATION OFFICER 10/06/2023 3:57 PM COMPLAINT EVALUATION OFFICER Katja Umana M.D. LAB MICROBIOLOGY - B LOOD ORDERABLES Performing Organization Address [facility] Co de Phone Number [facility] [address] [place] [address] [place] [address] * HBs Antibody, Serum (10/06/2023 12:17 PM COMPLAINT EVALUATION OFFICER) HBs Antibody, S Negative 10/06/2023 9:14 PM COMPLAINT EVALUATION OFFICER [facility] Comment: Patient is presumed to be not immune to infection with HBV. ----REFERENCE VALUE---- Unvaccinated: Negative Vaccinated: Positive HBs Antibody, Quantitative, S <5.0 mIU/mL 10/06/2023 9:14 PM COMPLAINT EVALUATION OFFICER [facility] Comment: ----REFERENCE VALUE---- Unvaccinated: <5.0 Vaccinated: >=12.0 Blood (Blood, Venous) 10/06/2023 12:17 PM COMPLAINT EVALUATION OFFICER 10/06/2023 3:57 PM COMPLAINT EVALUATION OFFICER Katja Umana M.D. LAB MICROBIOLOGY - B LOOD ORDERABLES [facility] [address] [place] [address] [facility] [address] [place] [address] * Hepatitis B Surface Antigen (10/06/2023 12:17 PM COMPLAINT EVALUATION OFFICER) HBs Antigen, S Negative Negative 10/06/2023 8:55 PM COMPLAINT EVALUATION OFFICER [facility] Blood (Blood, Venous) 10/06/2023 12:17 PM COMPLAINT EVALUATION OFFICER 10/06/2023 3:57 PM COMPLAINT EVALUATION OFFICER Katja Umana M.D. LAB MICROBIOLOGY - B LOOD ORDERABLES [facility] [address] [place] [address] [place] [id number] [place] [place] [address] * Colonoscopy (10/10/2015 2:45 PM COMPLAINT EVALUATION OFFICER) 10/10/2015 2:45 PM COMPLAINT EVALUATION OFFICER Tanner VoraSPetros GI PROCEDURE [facility] [address] from Last 3 Months or Most Recently Relevant to Health Maintenance Care Teams Staff Readiness Officer Relationship Specialty Start Date End Date Elsewhere, Pcp PCP - General Family Medicine 12/07/23
--- OUTSIDE RECORDS SUMMARY | 2023-12-28 07:56 | XMS_ITS ---
Author Name Unknown Organization [facility] Address [address] [place] [address] Care Team Providers Care Salon Stylist Name Role Phone Unavailable Unavailable Unavailable Surgery Details Not on file Complications Check Surgery Details section. Procedure Estimated Blood Loss Check Surgery Details section. Procedure Findings Check Surgery Details section. Procedure Specimens Taken Check Surgery Details section.
--- OUTSIDE RECORDS SUMMARY | 2023-12-28 07:57 | XMS_ITS | Encounter Summary ---
Author Name Unknown Organization [facility] Address [address] [place] [address] Care Team Providers Care Able Seaman Name Role Phone Unavailable Primary Care Provider Unavailabl e Encounter Details Date Type Department Care Team (Latest Contact Info) Description 11/01/2023 12:28 PM RECORDER HELPER SEISMOGRAPH - 11/01/2023 11:59 PM RECORDER HELPER SEISMOGRAPH Hospital Encounter Department of Laboratory Medicine in [address] [phone] Katja Umana M.D. [address] [place] [address] Alcoholic Cirrhosis Of Liver With Ascites (HCC) Discharge Disposition: Home or Self Care Social History Tobacco Use Types Packs/Day Years Used Date Smoking Tobacco: Every Day Cigarettes 0.5 40 Smokeless Tobacco: Never Alcohol Use Standard Drinks/Week Comments Not Currently 0 (1 standard drink = 0.6 oz pur e alcohol) [facility] Utilities Answer Date Recorded In the past 12 months has [employer], gas, oil, or water [employer] threatened to shut off services in your [...] Date Recorded Employment status Working with temporary [employer] 10/15/2023 Housing Stability Answer Date Recorded What is your living situation today? I have a [facility] place to live 10/15/2023 Sex and Gender Information Value Date Recorded Sex Assigned at Female 10/06/2023 10:50 AM RECORDER HELPER SEISMOGRAPH Gender Identity Female 10/06/2023 10:50 AM RECORDER HELPER SEISMOGRAPH Sexual Orientation Straight 10/06/2023 10 :50 AM RECORDER HELPER SEISMOGRAPH documented as of this encounter Medications at Time of Discharge Medication Sig Dispensed Refills Start Date End Date acetaminophen 650 mg/20.3 mL suspension Take 650 mg by mouth every 4 (four) hours as needed (for pain). No more than 2000 mg in 24 hours 11/08/2014 nicotine polacrilex (NICORETTE) 2 mg lozengeIndications:Ray estrella Dependence Cigarettes Apply 1 lozenge (2 mg total) to cheek as needed for smoking cessation. One lozenge every 1-2 hours as needed (maximum 20 lozenges per day) 100 each 3 10/28/2023 11/27/2023 furosemide (LASIX) 40 mg tablet Take 1 tablet (40 mg total) by mouth daily. 30 tablet 10/24/2023 11/22/2023 spironolactone (ALDACTONE) 100 mg tablet Take 1 tablet (100 mg total) by mouth daily. 30 tablet 10/24/2023 11/22/2023 traZODone (DESYREL) 50 mg tablet Take 1 tablet (50 mg total) by mouth at bedtime. 30 tablet 10/24/2023 11/22/2023 varenicline (CHANTIX RADHIKA) 0.5 mg (11)- 1 mg (42) tabletIndications:Nicot ine Dependence Cigarettes Use as directed on package instructions, try to quit smoking after 1 week. 53 tablet 10/28/2023 12/07/2023 varenicline (CHANTIX) 1 mg tabletIndications:Nicot [...] Department of Nutrition and Diabetes Education in [place], [place] [address] [place] [phone] Katja Umana M.D. [address] [place] [phone] Taty Cunningham M.S., RDN, LD [address] [place] [phone] documented as of this encounter Procedures Procedure Name Priority Date/Time Associated Diagnosis Comments BASIC METABOLIC PANEL, S/P Routine 11/01/2023 12:49 PM RECORDER HELPER SEISMOGRAPH Alcoholic Cirrhosis Of Liver With Ascites (HCC) documented in this encounter Results * (ABNORMAL) Basic Metabolic Panel (11/01/2023 12:49 PM RECORDER HELPER SEISMOGRAPH) Potassium, P 4.1 3.6 - 5.2 mmol/L 11/01/2023 1:13 PM RECORDER HELPER SEISMOGRAPH CNFL Sodium, P 128(L) 135 - 145 mmol/L 11/01/2023 1:13 PM RECORDER HELPER SEISMOGRAPH CNFL Chloride, P 95(L) 98 - 107 mmol/L 11/01/2023 1:13 PM RECORDER HELPER SEISMOGRAPH CNFL Bicarbonate, P 26 22 - 29 mmol/L 11/01/2023 1:13 PM RECORDER HELPER SEISMOGRAPH CNFL Anion Gap, P 7 7 - 15 11/01/2023 1:13 PM RECORDER HELPER SEISMOGRAPH CNFL BUN (Blood Urea Nitrogen), P 10 6 - 21 mg/dL 11/01/2023 1:13 PM RECORDER HELPER SEISMOGRAPH CNFL Creatinine 0.42(L) 0.59 - 1.04 mg/dL 11/01/2023 1:13 PM RECORDER HELPER SEISMOGRAPH CNFL Estimated GFR (eGFR) >90 >=60 mL/min/BSA 11/01/2023 1:13 PM RECORDER HELPER SEISMOGRAPH CNFL Comment: Estimated GFR calculated using the 2020 CKD_EPI creatinine equation. Calcium, Total, P 8.3(L) 8.8 - 10.2 mg/dL 11/01/2023 1:13 PM RECORDER HELPER SEISMOGRAPH CNFL Glucose, P 105 70 - 140 mg/dL 11/01/2023 1:13 PM RECORDER HELPER SEISMOGRAPH CNFL Blood (Blood, Venous) 11/01/2023 12:49 PM RECORDER HELPER SEISMOGRAPH 11/01/2023 12:54 PM RECORDER HELPER SEISMOGRAPH Katja Umana M.D. LAB BLOOD ADD-ON [facility] [address] [place], [place] [id number], [facility] CNFL [facility] in [address] [address] documented in this encounter Visit Diagnoses Diagnosis Alcoholic Cirrhosis Of Liver With Ascites (HCC) documented in this encounter Additional Health Concerns Assessment Noted Time PHQ-9 Depression Total Score: 3 10/20/19 24 7:30 AM RECORDER HELPER SEISMOGRAPH documented as of this encounter
--- OUTSIDE RECORDS SUMMARY | 2023-12-28 07:57 | XMS_ITS | Encounter Summary ---
Author Name Unknown Organization [facility] Address [address] [place] [phone] Care Team Providers Care Live Study Manager Name Role Phone Elsewhere, Pcp Primary Care Provider Unavailabl e Reason for Referral * Outpatient (Routine) - Authorized Specialty Diagnoses / Procedures Referred By Contac t Referred To Contact Nutrition Diagnoses Alcoholic Cirrhosis Of Liver With Ascites (HCC) Sarcopenia Katja Umana M.D. 200 [place] [address] [facility] Referral ID Status Reason Start Date Expiration Date V isits Requested Visits Authorized [id number] Authorized 12/09/2023 06/09/2025 1 1 * Outpatient (Routine) - Authorized Specialty Diagnoses / Procedures Referred By Contac t Referred To Contact Diagnoses Alcoholic Cirrhosis Of Liver With Ascites (HCC) Ascites Procedures US Paracentesis with Imaging Guidance Katja Umana M.D. [address] [place] [address] [facility] Referral ID Status Reason Start Date Expiration Date V isits Requested Visits Authorized [id number] Authorized 12/09/2023 12/08/2024 8 8 Reason for Visit * Outpatient (Routine) - Closed Specialty Diagnoses / Procedures Referred By Contact Referred To Contact Gastroenterology and Hepatology Katja Umana M.D. 200 [place] [address] [facility] Referral ID Status Reason Start Date Expiration Date Visits Re quested Visits Authorized [id number] Closed 10/28/2023 04/28/2025 1 1 Encounter Details Date Type Department Care Team (Latest Contact Info) Description 12/09/2023 4:30 PM CDT Office Visit Brent motta [facility] in [place], [place] [address] [place] [phone] Katja Umana M.D. [address] [place] [phone] Rose Palacios M.D. 200 [place] [phone] Alcoholic Cirrhosis Of Liver With Ascites (HCC) (Primary Dx); Ascites; Sarcopenia Social History Tobacco Use Types Packs/Day Years Used Date Smoking Tobacco: Every Day Cigarettes 0.5 40.9 Started: 02/11/1983 Passive Smoke Exposure: Never Smokeless Tobacco: Never Alcohol Use Standard Drinks/Week Comments Not Currently 0 (1 standard drink = 0.6 oz pur e alcohol) [facility] Utilities Answer Date Recorded In the past 12 months has th e [employer], gas, oil, or water [employer] threatened to shut off services in your [...] Date Recorded Employment status Working with temporary [employer] 10/15/2023 Housing Stability Answer Date Recorded What is your living situation today? I have a [facility] place to live 10/15/2023 Sex and Gender Information Value Date Recorded Sex Assigned at Female 10/06/2023 10:50 AM RIDING TEACHER Gender Identity Female 10/06/2023 10:50 AM RIDING TEACHER Sexual Orientation Straight 10/06/2023 10 :50 AM RIDING TEACHER documented as of this encounter Last Filed [...] Mrs. Redmond was hospitalized locally from 12/02/2023-12/06/[facility] for progressive fatigue and decreased exercise tolerance. [...] last colonoscopy was performed in 2019 in [place]. I am not able to see this report. She is recommended to follow-up with her PCP for completing surveillance colonoscopy. If she is not able tocomplete this locally, then we can arrange for this to be done at [place]. All questions were answered. This plan will be discussed with Dr. Morales. BILLING: I personally spent over half of a total 35 minutes in counseling and discussion with the patient and coordination of care as described above. Signed: Katja Umana M.D. Gastroenterology and Hepatology Fellow Pager [phone] documented in this encounter Plan of Treatment Upcoming Encounters Date Type Department Care Team (Late st Contact Info) Description 01/19/2024 10:00 AM CDT Telemedicine Department of Nutrition and Diabetes Education in [place], [place] [address] [place] [address] Katja Umana M.D. [address] [place] [phone] Taty Cunningham M.S., RDN, LD [address] [place] [phone] Scheduled Referrals Name Type Priority Associated Diagnoses [...] Prothrombin Time (PT) (12/09/2023 5:16 PM CDT) Pathologist [facility] Prothrombin Time, P 17.9(H) 9.4 - 12.5 sec 12/09/2023 5:52 PM CDT DTL INR 1.6 0.9 - 1.1 12/09/2023 5:52 PM CDT DTL Comment: ----ADDITIONAL INFORMATION---- Standard intensity warfarin therapeutic range: 2.0 to 3.0 ?? High intensity warfarin therapeutic range: 2.5 to 3.5 Blood (Blood, Venous) 12/09/2023 5:16 PM CDT 12/09/2023 5:39 PM CDT Katja Umana M.D. LAB BLOOD ADD-ON [facility] [address] [place] [address], [facility] [address] [place] [address] * (ABNORMAL) Comprehensive Metabolic Panel (12/09/2023 5:16 PM CDT) Pathologist [facility] Potassium, S 5.0 3.6 - 5.2 [...] CDT Katja Umana M.D. LAB BLOOD ADD-ON [facility] [address] [place] [address], [facility] DTL [facility] [address] [place] [address] * (ABNORMAL) CBC with Differential, Blood (12/09/2023 5:16 PM CDT) [facility] Hemoglobin 8.3(L) 11.6 - 15.0 g/dL 12/09/2023 [...] CDT Katja Umana M.D. LAB BLOOD ADD-ON [facility] [address] [place] [address], [facility] DTL [facility] [address] [place] [address] [facility] [address] [place] [address] documented in this encounter Visit Diagnoses Diagnosis Alcoholic Cirrhosis Of Liver With Ascites (HCC)- Primary Ascites Sarcopenia Alcoholic Cirrhosis Of Liver With Ascites (HCC) Ascites documented in this encounter Additional Health Concerns Assessment Noted Time PHQ-9 Depression Total Score: 3 10/20/19 24 7:30 AM RIDING TEACHER documented as of this encounter Care Teams Live Study Manager Relationship Specialty Start Date End Date Elsewhere, Pcp PCP - General Family Medicine 12/07/23 documented as of this encounter
--- OUTSIDE RECORDS SUMMARY | 2023-12-28 07:57 | XMS_ITS | Encounter Summary ---
Author Name Unknown Organization [facility] Address [address] [place] [address] Care Team Providers Care Softball Umpire Name Role Phone Unavailable Primary Care Provider Unavailabl e Reason for Referral * Outpatient (Routine) - Closed Specialty Diagnoses / Procedures Referred By Dotty t Referred To Contact Nicotine Dependence Sudha Bernstein M.A., DonnS.Tom, M.S.W. [address] [place] [phone] [facility] Referral ID Status Reason Start Date Expiration Date Visits Re quested Visits Authorized [id number] Closed 11/11/2023 05/12/2025 1 1 Scheduling Instructions Please schedule a follow up phone visit at 11:00am, LER TECHNICIAN Encounter Details Date Type Department Care Team (Late st Contact Info) Description 11/11/2023 Orders Only Department of Nicotine Dependence, [facility] in [place], [place] [address] [place] [phone] Sudha Bernstein M.A., Edwin.S.W., M.S.W. [address] [place] [phone] Social History Tobacco Use Types Packs/Day Years Used Date Smoking Tobacco: Every Day Cigarettes 0.5 40 Smokeless Tobacco: Never Alcohol Use Standard Drinks/Week Comments Not Currently 0 (1 standard drink = 0.6 oz pur e alcohol) [facility] Utilities Answer Date Recorded In the past 12 months has th e [employer], gas, oil, or water company threatened to [...] your living situation today? I have a [facility] place to live 10/15/2023 Sex and Gender Information Value Date Recorded Sex Assigned at Female 10/06/2023 10:50 AM TRAILER TECHNICIAN Gender Identity Female 10/06/2023 10:50 AM TRAILER TECHNICIAN Sexual Orientation Straight 10/06/2023 10 :50 AM TRAILER TECHNICIAN documented as of this encounter Plan of Treatment Upcoming Encounters Date Type Department Care Team (Late st Contact Info) Description 01/19/2024 10:00 AM CDT Telemedicine Department of Nutrition and Diabetes Education in [place], [place] [address] [place] [address] Katja Umana M.D. [address] [place] [phone] Taty Cunningham M.S., RDN, LD [address] [place] [phone] Scheduled Referrals Name Type Priority Associated Diagnoses Order Schedule Nicotine Dependence office visit (clinic) Outpatient Referral Routine Expected: 11/18/2023, Expires: 02/08/2025 documented as of this encounter Visit Diagnoses Not on filedocumented in this encounter Additional Health Concerns Assessment Noted Time PHQ-9 Depression Total Score: 3 10/20/19 24 7:30 AM TRAILER TECHNICIAN documented as of this encounter
--- OUTSIDE RECORDS SUMMARY | 2023-12-28 07:57 | XMS_ITS | Encounter Summary ---
Author Name Unknown Organization [facility] Address [address] [place] [address] Care Team Providers Care Hand Hardener Name Role Phone Elsewhere, Pcp Primary Care Provider Unavailabl e Reason for Visit * Reason Onset Date Comments Scheduling 12/20/2023 Encounter Details Date Type Department Care Team (Latest Contact Info) Description 12/20/2023 Clinical Communication Division of Gastroenterology in [place], [place] [address] [place] [address] Katja Umana M.D. [address] [place] [address] Scheduling Social History Tobacco Use Types Packs/Day Years Used Date Smoking Tobacco: Every Day Cigarettes 0.5 40.9 Started: 02/11/1983 Passive Smoke Exposure: Never Smokeless Tobacco: Never Alcohol Use Standard Drinks/Week Comments Not Currently 0 (1 standard drink = 0.6 oz pur e alcohol) [facility] Utilities Answer Date Recorded In the past 12 months has Isabella Oliver, gas, oil, or water [employer] threatened to shut off services in your [...] Date Recorded Employment status Working with temporary [employer] 10/15/2023 Housing Stability Answer Date Recorded What is your living situation today? I have a [facility] place to live 10/15/2023 Sex and Gender Information Value Date Recorded Sex Assigned at Female 10/06/2023 10:50 AM GROUNDS MAINTENANCE WORKER Gender Identity Female 10/06/2023 10:50 AM GROUNDS MAINTENANCE WORKER Sexual Orientation Straight 10/06/2023 10 :50 AM GROUNDS MAINTENANCE WORKER documented as of this encounter Plan of Treatment Upcoming Encounters Date Type Department Care Team (Late st Contact Info) Description 01/19/2024 10:00 AM CDT Telemedicine Department of Nutrition and Diabetes Education in [place], [place] [address] [place] [phone] Katja Umana M.D. [address] [place] [phone] Taty Cunningham M.S., RDN, LD [address] [place] [phone] documented as of this encounter Visit Diagnoses Not on filedocumented in this encounter Additional Health Concerns Assessment Noted Time PHQ-9 Depression Total Score: 3 10/20/19 7:30 AM GROUNDS MAINTENANCE WORKER documented as of this encounter Care Teams Hand Hardener Relationship Specialty Start Date End Date Elsewhere, Pcp PCP - General Family Medicine 12/07/23 documented as of this encounter
--- OUTSIDE RECORDS SUMMARY | 2023-12-28 07:57 | XMS_ITS | Encounter Summary ---
Author Name Unknown Organization [facility] Address [address] [place] [address] Care Team Providers Care Tape Machine Tailer Name Role Phone Elsewhere, Pcp Primary Care Provider Unavailabl e Reason for Referral * Outpatient (Routine) - Authorized Specialty Diagnoses / Procedures Referred By Dotty t Referred To Contact Diagnoses Ascites Procedures US Paracentesis with Imaging Guidance Katja Umana M.D. [address] [place] [phone] [facility] Referral ID Status Reason Start Date Expiration Date V isits Requested Visits Authorized [id number] Authorized 11/23/2023 11/22/2024 1 1 Reason for Visit * Reason Onset Date Comments Order Request 11/22/2023 Encounter Details Date Type Department Care Team (Latest Contact Info) Description 11/22/2023 Clinical Communication Division of Gastroenterology in [place], [place] [address] [place] [phone] Katja Umana M.D. [address] [place] [phone] Order Request Social History Tobacco Use Types Packs/Day Years Used Date Smoking Tobacco: Every Day Cigarettes 0.5 40 Smokeless Tobacco: Never Alcohol Use Standard Drinks/Week Comments Not Currently 0 (1 standard drink = 0.6 oz pur e alcohol) [facility] Utilities Answer Date Recorded In the past [...] Date Recorded Employment status Working with temporary [employer] t[employer] 10/15/2023 Housing Stability Answer Date Recorded What is your living situation today? [facility] 10/15/2023 Sex and Gender Information Value Date Recorded Sex Assigned at Female 10/06/2023 10:50 AM COLLECTION MANAGER Gender Identity Female 10/06/2023 10:50 AM COLLECTION MANAGER Sexual Orientation Straight 10/06/2023 10 :50 AM COLLECTION MANAGER documented as of this encounter Plan of Treatment Upcoming Encounters Date Type Department Care Team (Late st Contact Info) Description 01/19/2024 10:00 AM CDT Telemedicine Department of Nutrition and Diabetes Education in [place], [place] [address] [place] [address] Katja Umana M.D. [address] [place] [address] Taty Cunningham M.S., RDN, LD 200 [place] [phone] Scheduled Orders Name Type Priority Associated Diagnoses Order Schedule US Paracentesis with Imaging Guidance Imaging RAD - Routine (most inpatients and all outpatients) Ascites Expected: 12/03/2023, Expires: 02/22/2025 documented as of this encounter Visit Diagnoses Diagnosis Ascites- Primary documented in this encounter Additional Health Concerns Assessment Noted Time PHQ-9 Depression Total Score: 3 10/20/19 24 7:30 AM COLLECTION MANAGER documented as of this encounter Care Teams Tape Machine Tailer Relationship Specialty Start Date End Date Elsewhere, Pcp PCP - General Family Medicine 12/07/23 documented as of this encounter
--- OUTSIDE RECORDS SUMMARY | 2023-12-28 07:57 | XMS_ITS | Encounter Summary ---
Author Name Unknown Organization [facility] Address [address] [place] [address] Care Team Providers Care Industrial Insulator Name Role Phone Unavailable Primary Care Provider Unavailabl e Reason for Referral * Outpatient (Routine) - Closed Specialty Diagnoses / Procedures Referred By Contac t Referred To Contact Diagnoses Ascites Procedures US Paracentesis with Imaging Guidance Felipe Morales M.D. 200 [place] [address] [facility] Referral ID Status Reason Start Date Expiration Date Visits Re quested Visits Authorized [id number] Closed 10/11/2023 10/10/2024 1 1 D WELFARE ASSISTANT Reason for Visit * Outpatient (Routine) - Closed Specialty Diagnoses / Procedures Referred By Dotty oakes Referred To Contact Diagnoses Ascites Procedures US Paracentesis with Imaging Guidance Felipe Morales M.D. 200 [place] [address] [facility] Referral ID Status Reason Start Date Expiration Date Visits Re quested Visits Authorized [id number] Closed 10/11/2023 10/10/2024 1 1 Encounter Details Date Type Department Care Team (Latest Contact Info) Description 11/05/2023 9:29 AM CHILD WELFARE ASSISTANT - 11/05/2023 12:20 PM CHILD WELFARE ASSISTANT Hospital Encounter Department of Radiology, [facility], in [place], [place] [address] [place] [address] Felipe Morales M.D. [address] [place] [phone] Ascites Discharge Disposition: Home or Self Care Social History Tobacco Use Types Packs/Day Years Used Date Smoking Tobacco: Every Day Cigarettes 0.5 40 Smokeless Tobacco: Never Alcohol Use Standard Drinks/Week Comments Not Currently 0 (1 standard drink = 0.6 oz pur e alcohol) [facility] Utilities Answer Date Recorded In the past 12 months has th e [employer], gas, oil, or water company threatened to [...] Sex Assigned at Female 10/06/2023 10:50 AM CHILD WELFARE ASSISTANT Gender Identity Female 10/06/2023 10:50 AM CHILD WELFARE ASSISTANT Sexual Orientation Straight 10/06/2023 10 :50 AM CHILD WELFARE ASSISTANT documented as of this encounter Last Filed Vital Signs Vital Sign Reading Time Taken Comments Blood Pressure 106/56 11/05/2023 11:17 AM CHILD WELFARE ASSISTANT Pulse 88 11/05/2023 11:17 AM CHILD WELFARE ASSISTANT Temperature - - Respiratory Rate - - Oxygen Saturation 100% 11/05/2023 11:17 AM CHILD WELFARE ASSISTANT Inhaled Oxygen Concentration - - Weight - - Height - - Body Mass Index - - documented in this encounter Discharge Instructions * Attachments The following attachments cannot be sent through Care Everywhere. * Paracentesis (Costa Rican) documented in this encounter Medications at Time [...] Department of Nutrition and Diabetes Education in [place], [place] [address] [place] [phone] Katja Umana M.D. [address] [place] [phone] Taty Cunningham M.S., RDN, LD [address] [place] [phone] documented as of this encounter Procedures Procedure Name Priority Date/Time Associated Diagnosis Comments US PARACENTESIS WITH IMAGING GUIDANCE RAD - Routine (most inpatients and all outpatients) 11/05/2023 11:25 AM CHILD WELFARE ASSISTANT Ascites BACTERIAL CULTURE, AEROBIC + SUSC Timed 11/05/2023 10:07 AM CHILD WELFARE ASSISTANT Ascites CELL COUNT AND DIFFERENTIAL, BF Timed 11/05/2023 10:07 AM CHILD WELFARE ASSISTANT Ascites documented in this encounter Results * US Paracentesis with Imaging Guidance (11/05/2023 11:25 AM CHILD WELFARE ASSISTANT) Anatomical Region Laterality Modality Abdomen, Ultrasound RST LOS, Ultrasound ARZ LOS, Procedure FLA LOS, Abdominal FLA LOS, Procedural, Procedural NWWI LOS N/A Ultrasound Impressions 11/05/2023 11:28 AM CHILD WELFARE ASSISTANT Ultrasound-guided diagnostic and therapeutic paracentesis. NR Narrative 11/05/2023 11:28 AM CHILD WELFARE ASSISTANT EXAM: US PARACENTESIS WITH IMAGING GUIDANCE [...] lower quadrant peritoneal space. Needle size: 5 Senegalese centesis catheter. Volume aspirated: 6.8 liters aspirated, [...] lower quadrant peritoneal space. Needle size: 5 Senegalese centesis catheter. Volume aspirated: 6.8 liters aspirated, [...] and therapeutic paracentesis. NR Felipe Morales M.D. [facility] US PROCEDURES * Cell Count and Differential, Body Fluid (11/05/2023 10:07 AM CHILD WELFARE ASSISTANT) Fluid Type Peritoneal /Paracente sis 11/05/2023 11:13 AM CHILD WELFARE ASSISTANT DHPM Gross Appearance Serous 11/05/19 24 11:13 AM CHILD WELFARE ASSISTANT DHPM Total Nucleated Cells 282 /mcL 11/05/2023 11:13 AM CHILD WELFARE ASSISTANT DHPM Comment: ----REFERENCE VALUE---- Synovial: <150 /mcL Peritoneal: <500 /mcL Pleural: <500 /mcL Pericardial: <500 /mcL ----ADDITIONAL INFORMATION---- This test has been modified from the english adjunct faculty's instructions. Its performance characteristics were determined by [facility] in a manner consistent with CLIA requirements. This test has not been cleared or approved by the U.S. Food and Drug Administration. Neutrophils 3 % 11/05/2023 12:54 PM CHILD WELFARE ASSISTANT DHPM Comment: ----REFERENCE VALUE---- Synovial: <25% Peritoneal: <25% Pleural: <25% Pericardial: <25% Lymphocytes 26 Synovial <75% % 11/05/2023 12:54 PM CHILD WELFARE ASSISTANT DHPM Monocytes/Macropha ges 64 Synovial <70% % 11/05/2023 12:54 PM CHILD WELFARE ASSISTANT DHPM Other Cells 7 % 11/05/2023 12:54 PM CHILD WELFARE ASSISTANT DHPM Comment: ----REFERENCE VALUE---- The reference range and other method performance specifications have not been established for this bodyfluid. The test result must be integrated into the clinical context for interpretation. Other Cells Are: See Comment 11/05/2023 12:54 PM CHILD WELFARE ASSISTANT DHPM Comment:Mesothelial cells Comment See Comment 11/05/2023 12:54 PM CHILD WELFARE ASSISTANT DHPM Comment:No blasts or maligna nt cells seen.Erythrophagocytosis present. Reviewed by: Jose 11/05/2023 12:54 PM CHILD WELFARE ASSISTANT DHPM Fluid (Peritoneal Fluid) 11/05/2023 10:07 AM CHILD WELFARE ASSISTANT Felipe Morales M.D. LAB BODY FLUIDS AND STOOLS ORDERABLES [facility] [address] [place] [address], [facility] [address] [place] [address] * Bacterial Culture, Aerobic + Susceptibility (11/05/2023 10:07 AM CHILD WELFARE ASSISTANT) Bacterial Culture, Aerobic + Susc No growth after 5 days of incubation. 2023 7:33 AM CHILD WELFARE ASSISTANT DTL Fluid (Peritoneal Fluid) 11/05/2023 10:07 AM CHILD WELFARE ASSISTANT Narrative [facility] - 2023 7:33 AM CHILD WELFARE ASSISTANT Bacterial Culture: Received Bactec aerobic and Bactec anaerobic bottles Felipe Morales M.D. LAB MICROBIOLOGY - GENERAL ORDERABLES [facility] [address] [place] [address], [place] [facility] [address] [place] [address] documented in this encounter Visit Diagnoses Diagnosis [...] 100 mL/hr New Bag 11/05/2023 10:39 AM CHILD WELFARE ASSISTANT 25 g albumin human 25 % injection 25 g 25 g, intravenous, Once, On Wed11/05/23 at 1130, For 1 dose, If no infusion rate specified: Administer the 25% solution at 100 mL/hr New Bag 11/05/2023 11:20 AM CHILD WELFARE ASSISTANT 25 g lidocaine 10 mg/mL (1 %) injection (XYLOCAINE) As needed, Starting on Wed11/05/23 at 1023, Intra-Op Given 11/05/2023 10:23 AM CHILD WELFARE ASSISTANT 10 mL Abdominal Tissue documented in this encounter Active and Recently Administered Medications Times are shown in CHILD WELFARE ASSISTANT. Scheduled Medication Order 11/03/2023 11/04/2023 11/05/2023 albumin [...] Total Score: 3 10/20/19 24 7:30 AM CHILD WELFARE ASSISTANT documented as of this encounter
--- OUTSIDE RECORDS SUMMARY | 2023-12-28 07:57 | XMS_ITS | Encounter Summary ---
Author Name Unknown Organization [facility] Address [address] [place] [address] Care Team Providers Care Business System Consultant Name Role Phone Elsewhere, Pcp Primary Care Provider Unavailabl e Reason for Visit * Reason Comments Nicotine Dependence * Outpatient (Routine) - Closed Specialty Diagnoses / Procedures Referred By Contac t Referred To Contact Nicotine Dependence Sudha Bernstein M.A., Yesy.I.C.S.W., M.S.W. [address] [place] [phone] [facility] Referral ID Status Reason Start Date Expiration Date Visits Re quested Visits Authorized [id number] Closed 11/11/2023 05/12/2025 1 1 Encounter Details Date Type Department Care Team (Late st Contact Info) Description 11/18/2023 11:00 AM PUBLIC HEALTH AIDES TEACHER Virtual Visit Department of Nicotine Dependence, [facility], in [place], [place] [address] [place] [phone] Sudha Bernstein M.A., L.I.C.S.W., M.S.W. [address] [place] [phone] Nicotine Dependence Cigarettes With Withdrawal (Primary Dx) Social History Tobacco Use Types Packs/Day Years Used Date Smoking Tobacco: Every Day Cigarettes 0.5 40 Smokeless Tobacco: Never Alcohol Use Standard Drinks/Week Comments Not Currently 0 (1 standard drink = 0.6 oz pur e alcohol) [facility] Utilities Answer Date Recorded In the past 12 months has [employer] electric, gas, oil, or water company threatened [...] Date Recorded Employment status Working with temporary [employer] tions 10/15/2023 Housing Stability Answer Date Recorded What is your living situation today? I have a [facility] place to live 10/15/2023 Sex and Gender Information Value Date Recorded Sex Assigned at Female 10/06/2023 10:50 AM PUBLIC HEALTH AIDES TEACHER Gender Identity Female 10/06/2023 10:50 AM PUBLIC HEALTH AIDES TEACHER Sexual Orientation Straight 10/06/2023 10 :50 AM PUBLIC HEALTH AIDES TEACHER documented as of this encounter Progress Notes [...] 10 minutes was spent on tobacco counseling. IC HEALTH AIDES TEACHER documented in this encounter Plan of Treatment Upcoming Encounters Date Type Department Care Team (Late st Contact Info) Description 01/19/2024 10:00 AM CDT Telemedicine Department of Nutrition and Diabetes Education in [place], [place] [address] [place] [phone] Katja Umana M.D. [address] [place] [address] Taty Cunningham M.S., RDN, LD [address] [place] [phone] documented as of this encounter Visit Diagnoses Diagnosis Nicotine Dependence Cigarettes With Withdrawal- Primary documented in this encounter Additional Health Concerns Assessment Noted Time PHQ-9 Depression Total Score: 3 10/20/19 24 7:30 AM PUBLIC HEALTH AIDES TEACHER documented as of this encounter Care Teams Business System Consultant Relationship Specialty Start Date End Date Elsewhere, Pcp PCP - General Family Medicine 12/07/23 documented as of this encounter
--- OUTSIDE RECORDS SUMMARY | 2023-12-28 07:57 | XMS_ITS | Encounter Summary ---
Author Name Unknown Organization [facility] Address [address] [place] [address] Care Team Providers Care Glue Wheel Operator Name Role Phone Elsewhere, Pcp Primary Care Provider Unavailabl e Reason for Referral * Outpatient (Routine) - Authorized Specialty Diagnoses / Procedures Referred By Contac t Referred To Contact Diagnoses Alcoholic Cirrhosis Of Liver With Ascites (HCC) Ascites Procedures US Paracentesis with Imaging Guidance Katja Umana M.D. 200 [place] [address] [facility] Referral ID Status Reason Start Date Expiration Date V isits Requested Visits Authorized [id number] Authorized 12/09/2023 12/08/2024 8 8 Reason for Visit * Outpatient (Routine) - Authorized Specialty Diagnoses / Procedures Referred By Dotty oakes Referred To Contact Diagnoses Alcoholic Cirrhosis Of Liver With Ascites (HCC) Ascites Procedures US Paracentesis with Imaging Guidance Katja Umana M.D. 200 [place] [address] [facility] Referral ID Status Reason Start Date Expiration Date V isits Requested Visits Authorized [id number] Authorized 12/09/2023 12/08/2024 8 8 Encounter Details Date Type Department Care Team (Latest Contact Info) Description 12/16/2023 9:34 AM CDT - 12/16/2023 11:22 AM CDT Hospital Encounter Department of Radiology, [facility], in [place], [place] [address] [place] [phone] Katja Umana M.D. [address] [place] [address] Alcoholic Cirrhosis Of Liver With Ascites (HCC); Ascites Discharge Disposition: Home or Self Care Social History Tobacco Use Types Packs/Day Years Used Date Smoking Tobacco: Every Day Cigarettes 0.5 40.9 Started: 02/11/1983 Passive Smoke Exposure: Never Smokeless Tobacco: Never Alcohol Use Standard Drinks/Week Comments Not Currently 0 (1 standard drink = 0.6 oz pur e alcohol) [facility] Utilities Answer Date Recorded In [...] your living situation today? I have a [facility] place to live 10/15/2023 Sex and Gender Information Value Date Recorded Sex Assigned at Female 10/06/2023 10:[address] LIGHT INSPECTOR Gender Identity Female 10/06/2023 10:[address] LIGHT INSPECTOR Sexual Orientation Straight 10/06/2023 10 :[address] LIGHT INSPECTOR documented as of this encounter Last Filed [...] be sent through Care Everywhere. * Paracentesis (Tongan) documented in this encounter Medications at Time of Discharge Medication Sig Dispensed Refills Start Date End Date acetaminophen 650 mg/20.3 mL suspension Take 650 mg by mouth every 4 (four) hours as needed (for pain). No more than 2000 mg in 24 hours 11/08/2014 furosemide (LASIX) 40 mg tablet Take [...] a day before breakfast and dinner. 12/06/2023 rifAXIMin (XIFAXAN) 550 mg tablet Take 1 tablet (550 mg total) by mouth 2 (two) times a day. 60 tablet 2 12/09/2023 03/08/2024 spironolactone (ALDACTONE) 100 mg tablet Take 1 tablet (100 mg total) by mouth daily. 30 tablet 2 11/22/2023 02/20/2024 traZODone (DESYREL) 50 mg tablet Take 1 tablet (50 mg total) by mouth at bedtime. 30 tablet 11/22/2023 documented as of this encounter Plan of Treatment Upcoming Encounters Date Type Department Care Team (Late st Contact Info) Description 01/19/2024 10:00 AM CDT Telemedicine Department of Nutrition and Diabetes Education in [place], [place] [address] [place] [phone] Katja Umana M.D. [address] [place] [phone] Taty Cunningham M.S., RDN, LD [address] [place] [phone] documented as of this encounter Procedures Procedure [...] IMPRESSION: Ultrasound-guided paracentesis. EP Katja Umana M.D. [facility] US PROCEDURES documented in this encounter Visit [...] Total Score: 3 10/20/19 24 7:[address] LIGHT INSPECTOR documented as of this encounter Care Teams Glue Wheel Operator Relationship Specialty Start Date End Date Elsewhere, Pcp PCP - General Family Medicine 12/07/23 documented as of this encounter
--- OUTSIDE RECORDS SUMMARY | 2023-12-28 07:57 | XMS_ITS | Encounter Summary ---
Author Name Unknown Organization [facility] Address [address] [place] [address] Care Team Providers Care Safety Sealer Name Role Phone Unavailable Primary Care Provider Unavailabl e Reason for Visit * Reason Onset Date Comments NDC Med Request 11/11/2023 Encounter Details Date Type Department Care Team (Latest Contact Info) Description 11/11/2023 Clinical Communication Department of Nicotine Dependence, [facility], in [place], [place] [address] [place] [address] Sudha Bernstein M.A., L.I.C.S.W., M.S.W. [address] [place] [phone] NDC Med Request Social History Tobacco Use Types Packs/Day Years Used Date Smoking Tobacco: Every Day Cigarettes 0.5 40 Smokeless Tobacco: Never Alcohol Use Standard Drinks/Week Comments Not Currently 0 (1 standard drink = 0.6 oz pur e alcohol) [facility] Utilities Answer Date Recorded In the past 12 months has [employer], gas, oil, or water [employer] threatened to shut off services in your [...] Date Recorded Employment status Working with temporary [employer] 10/15/2023 Housing Stability Answer Date Recorded What is your living situation today? I have a [facility] place to live 10/15/2023 Sex and Gender Information Value Date Recorded Sex Assigned at Female 10/06/2023 10:50 AM MEAT STUFFER Gender Identity Female 10/06/2023 10:50 AM MEAT STUFFER Sexual Orientation Straight 10/06/2023 10 :50 AM MEAT STUFFER documented as of this encounter Miscellaneous Notes * Telephone Encounter - Sudha Bernstein M.A., L.I.C.S.W., M.S.W. - 11/11/2023 11:39 AM CST Sandra, this patient is interested in having a prescription sent to [facility] in [place], [place] for the following if appropriate after [...] if you have any questions. Thank you. STUFFER documented in this encounter Plan of Treatment Upcoming Encounters Date Type Department Care Team (Late st Contact Info) Description 01/19/2024 10:00 AM CDT Telemedicine Department of Nutrition and Diabetes Education in [place], [place] [address] [place] [phone] Katja Umana M.D. [address] [place] [phone] Taty Cunningham M.S., RDN, LD [address] [place] [phone] documented as of this encounter Visit Diagnoses Not on filedocumented in this encounter Additional Health Concerns Assessment Noted Time PHQ-9 Depression Total Score: 3 10/20/19 24 7:30 AM MEAT STUFFER documented as of this encounter
--- OUTSIDE RECORDS SUMMARY | 2023-12-28 07:57 | XMS_ITS | Encounter Summary ---
Author Name Unknown Organization [facility] Address [address] [place] [address] Care Team Providers Care Mixer Operator Hot Metal Name Role Phone Unavailable Primary Care Provider Unavailabl e Reason for Referral * Outpatient (Routine) - Closed Specialty Diagnoses / Procedures Referred By Delgadoac t Referred To Contact Diagnoses Ascites Procedures US Paracentesis with Imaging Guidance Felipe Morales M.D. [address] [place] [phone] [facility] Referral ID Status Reason Start Date Expiration Date Visits Re quested Visits Authorized [id number] Closed 10/11/2023 10/10/2024 1 1 RATIONS EXPERT Reason for Visit * Outpatient (Routine) - Closed Specialty Diagnoses / Procedures Referred By Dotty oakes Referred To Contact Diagnoses Ascites Procedures US Paracentesis with Imaging Guidance Felipe Morales M.D. 200 [place] [phone] [facility] Referral ID Status Reason Start Date Expiration Date Visits Re quested Visits Authorized [id number] Closed 10/11/2023 10/10/2024 1 1 Encounter Details Date Type Department Care Team (Latest Contact Info) Description 11/19/2023 10:08 AM ALTERATIONS EXPERT - 11/19/2023 12:51 PM ALTERATIONS EXPERT Hospital Encounter Department of Radiology, [facility], in [place], [place] [address] [place] [address] Felipe Morales M.D. [address] [place] [phone] Ascites Discharge Disposition: Home or Self Care Social History Tobacco Use Types Packs/Day Years Used Date Smoking Tobacco: Every Day Cigarettes 0.5 40 Smokeless Tobacco: Never Alcohol Use Standard Drinks/Week Comments Not Currently 0 (1 standard drink = 0.6 oz pur e alcohol) [facility] Utilities Answer Date Recorded In the past 12 months has th e [employer], gas, oil, or water company threatened to [...] your living situation today? I have a [facility] place to live 10/15/2023 Sex and Gender Information Value Date Recorded Sex Assigned at Female 10/06/2023 10:50 AM ALTERATIONS EXPERT Gender Identity Female 10/06/2023 10:50 AM ALTERATIONS EXPERT Sexual Orientation Straight 10/06/2023 10 :50 AM ALTERATIONS EXPERT documented as of this encounter Last Filed Vital Signs Vital Sign Reading Time Taken Comments Blood Pressure 91/46 11/19/2023 11:45 AM ALTERATIONS EXPERT Pulse 84 11/19/2023 11:45 AM ALTERATIONS EXPERT Temperature - - Respiratory Rate - - Oxygen Saturation 100% 11/19/2023 11:45 AM ALTERATIONS EXPERT Inhaled Oxygen Concentration - - Weight - [...] by mouth at bedtime. 30 tablet 11/22/2023 nicotine polacrilex (NICORETTE) 2 mg lozengeIndications:Ray estrella Dependence Cigarettes Apply 1 lozenge (2 mg total) to cheek as needed for smoking cessation. One lozenge every 1-2 hours as needed (maximum 20 lozenges per day) 100 each 3 10/28/2023 11/27/2023 furosemide (LASIX) 40 mg tablet Take 1 tablet (40 mg total) by mouth daily. 30 tablet 10/24/2023 11/22/2023 nicotine (NICODERM CQ) 14 mg/24 [...] Department of Nutrition and Diabetes Education in [place], [place] [address] [place] [phone] Katja Umana M.D. [address] [place] [phone] Taty Cunningham M.S., RDN, LD [address] [place] [phone] Scheduled Orders Name Type Priority Associated Diagnoses Order Schedule Bacterial Culture, Aerobic + Susceptibility Microbiology Timed Ascites For manual release during upcoming procedure for 1 Occurrences starting 11/19/2023 until 11/19/2023 documented as of this encounter Procedures Procedure Name Priority Date/Time Associated Diagnosis Comments US PARACENTESIS WITH IMAGING GUIDANCE RAD - Routine (most inpatients and all outpatients) 11/19/2023 11:55 AM ALTERATIONS EXPERT Ascites BACTERIAL CULTURE, AEROBIC + SUSC Timed 11/19/2023 10:50 AM ALTERATIONS EXPERT Ascites CELL COUNT AND DIFFERENTIAL, BF Timed 11/19/2023 10:50 AM ALTERATIONS EXPERT Ascites documented in this encounter Results * US Paracentesis with Imaging Guidance (11/19/2023 11:55 AM ALTERATIONS EXPERT) Anatomical Region Laterality Modality Abdomen, Ultrasound RST LOS, Ultrasound ARZ LOS, Procedure FLA LOS, Abdominal FLA LOS, Procedural, Procedural NWWI LOS N/A Ultrasound Impressions 11/19/2023 12:26 PM ALTERATIONS EXPERT Ultrasound-guided paracentesis. EP Narrative 11/19/2023 12:26 PM ALTERATIONS EXPERT EXAM: US PARACENTESIS WITH IMAGING GUIDANCE PRE-PROCEDURE: [...] Culture, Aerobic + Susceptibility (11/19/2023 10:50 AM ALTERATIONS EXPERT) Bacterial Culture, Aerobic + Susc No growth after 5 days of incubation. 11/24/2023 8:27 AM CDT DTL Fluid (Peritoneal Fluid) 11/19/2023 10:50 AM ALTERATIONS EXPERT Narrative [facility] - 11/24/2023 8:27 AM CDT Bacterial Culture: Received Bactec aerobic and Bactec anaerobic bottles Felipe Morales M.D. LAB MICROBIOLOGY - GENERAL ORDERABLES [facility] [address] [place] [address], [facility] [address] [place] [address] * Cell Count and Differential, Body Fluid (11/19/2023 10:50 AM ALTERATIONS EXPERT) Fluid Type Peritoneal /Paracente sis 11/19/2023 12:39 PM ALTERATIONS EXPERT DHPM Gross Appearance Serous 11/19/19 24 12:39 PM ALTERATIONS EXPERT DHPM Total Nucleated Cells 201 /mcL 11/19/2023 12:39 PM ALTERATIONS EXPERT [facility] Comment: ----REFERENCE VALUE---- Synovial: <150 /mcL Peritoneal: <500 /mcL Pleural: <500 /mcL Pericardial: <500 /mcL ----ADDITIONAL INFORMATION---- This test has been modified from the airport clerk's instructions. Its performance characteristics were determined by [facility] in a manner consistent with CLIA requirements. This test has not been cleared or approved by the U.S. Food and Drug Administration. Neutrophils 20 % 11/19/2023 1:42 PM ALTERATIONS EXPERT [facility] Comment: ----REFERENCE VALUE---- Synovial: <25% Peritoneal: <25% Pleural: <25% Pericardial: <25% Lymphocytes 16 Synovial <75% % 11/19/2023 1:42 PM ALTERATIONS EXPERT DHPM Monocytes/Macropha ges 60 Synovial <70% % 11/19/2023 1:42 PM ALTERATIONS EXPERT PM Other Cells 4 % 11/19/2023 1:42 PM ALTERATIONS EXPERT [facility] Comment: ----REFERENCE VALUE---- The reference range and other method performance specifications have not been established for this bodyfluid. The test result must be integrated into the clinical context for interpretation. Other Cells Are: See Comment 11/19/2023 1:42 PM ALTERATIONS EXPERT [facility] Comment:Mesothelial cells Comment See Comment 11/19/2023 1:42 PM ALTERATIONS EXPERT PM Comment:No blasts or maligna nt cells seen. Reviewed by: Jose 11/19/2023 1:42 PM ALTERATIONS EXPERT [facility] Fluid (Peritoneal Fluid) 11/19/2023 10:50 AM ALTERATIONS EXPERT Felipe Morales M.D. LAB BODY FLUIDS AND STOOLS ORDERABLES [address] [address], [facility] 200 [place] [address] documented in this encounter Visit Diagnoses Diagnosis [...] provider's discretion) New Bag 11/19/2023 11:11 AM ALTERATIONS EXPERT 50 g 100 mL/hr lidocaine 10 mg/mL (1 %) injection (XYLOCAINE) As needed, Starting on Wed11/19/23 at 1056, Intra-Op Given 11/19/2023 10:56 AM ALTERATIONS EXPERT 5 mL Abdominal Tissue documented in this encounter Active and Recently Administered Medications Times are shown in ALTERATIONS EXPERT. Scheduled Medication Order 11/17/2023 11/18/2023 11/19/2023 albumin [...] Total Score: 3 10/20/19 24 7:30 AM ALTERATIONS EXPERT documented as of this encounter
--- OUTSIDE RECORDS SUMMARY | 2023-12-28 07:57 | XMS_ITS | Encounter Summary ---
Author Name Unknown Organization [facility] Address [address] [place] [address] Care Team Providers Care Street Sweeper Name Role Phone Unavailable Primary Care Provider Unavailabl e Reason for Referral * Outpatient (Routine) - Closed Specialty Diagnoses / Procedures Referred By Contlulu t Referred To Contact Nicotine Dependence Sudha Bernstein M.A., DonnSChandrakant, M.S.W. [address] [place] [phone] [facility] Referral ID Status Reason Start Date Expiration Date Visits Re quested Visits Authorized [id number] Closed 10/28/2023 04/28/2025 1 1 Scheduling Instructions Please schedule this patient for a follow up phone visit. R WELL DRILLER Encounter Details Date Type Department Care Team (Late st Contact Info) Description 10/28/2023 Orders Only Department of Nicotine Dependence, [facility] in [place], [place] [address] [place] [phone] Sudha Bernstein M.A., DonnS.W., M.S.W. [address] [place] [phone] Social History Tobacco Use Types Packs/Day Years Used Date Smoking Tobacco: Every Day Cigarettes 0.5 40 Smokeless Tobacco: Never Alcohol Use Standard Drinks/Week Comments Not Currently 0 (1 standard drink = 0.6 oz pur e alcohol) [facility] Utilities Answer Date Recorded In the past 12 months has th e [employer], gas, oil, or water [employer] threatened to shut off services in your [...] Date Recorded Employment status Working with temporary [employer] tions 10/15/2023 Housing Stability Answer Date Recorded What is your living situation today? I have a [facility] place to live 10/15/2023 Sex and Gender Information Value Date Recorded Sex Assigned at Female 10/06/2023 10:50 AM WATER WELL DRILLER Gender Identity Female 10/06/2023 10:50 AM WATER WELL DRILLER Sexual Orientation Straight 10/06/2023 10 :50 AM WATER WELL DRILLER documented as of this encounter Plan of Treatment Upcoming Encounters Date Type Department Care Team (Late st Contact Info) Description 01/19/2024 10:00 AM CDT Telemedicine Department of Nutrition and Diabetes Education in [place], [place] [address] [place] [address] Katja Umana M.D. [address] [place] [phone] Taty Cunningham M.S., RDN, LD [address] [place] [phone] Scheduled Referrals Name Type Priority Associated Diagnoses Order Schedule Nicotine Dependence office visit (clinic) Outpatient Referral Routine Expected: 11/11/2023, Expires: 01/25/2025 documented as of this encounter Visit Diagnoses Not on filedocumented in this encounter Additional Health Concerns Assessment Noted Time PHQ-9 Depression Total Score: 3 10/20/19 24 7:30 AM WATER WELL DRILLER documented as of this encounter
--- OUTSIDE RECORDS SUMMARY | 2023-12-28 07:57 | XMS_ITS | Encounter Summary ---
Author Name Unknown Organization [facility] Address [address] [place] [phone] Care Team Providers Care Science Manager Name Role Phone Elsewhere, Pcp Primary Care Provider Unavailabl e Reason for Visit * Outpatient (Routine) - Closed Specialty Diagnoses / Procedures Referred By Dotty t Referred To Contact Preventive Medicine Diagnoses Alcoholic Cirrhosis Of Liver With Ascites (HCC) Katja Umana M.D. [address] [place] [phone] [facility] Referral ID Status Reason Start Date Expiration Date Visits Re quested Visits Authorized [id number] Closed 10/15/2023 04/15/2025 1 1 Encounter Details Date Type Department Care Team (Latest Contact Info) Description 12/08/2023 10:30 AM CDT Comprehensive Visit Section of Infectious Diseases in [place], [place] [address] [place] [phone] Katja Umana M.D. [address] [place] [phone] Brianna Anglin APRN, C.N.P., D.N.P. [address] [place] [phone] Counseling And Review Vaccination Status (Primary [...] 0.6 oz pur e alcohol) [facility] Utilities Answer Date Recorded In the [...] your living situation today? I have a [facility] place to live 10/15/2023 Sex and Gender Information Value Date Recorded Sex Assigned at Female 10/06/2023 10:50 AM PRECAST MOLDER Gender Identity Female 10/06/2023 10:50 AM PRECAST MOLDER Sexual Orientation Straight 10/06/2023 10 :50 AM PRECAST MOLDER documented as of this encounter Patient Instructions * Patient Instructions* Brianna Anglin APRN, C.NIsidoro, D.N.P. - 12/08/2023 10:30 AM CDT Vaccines still needed: --Shingrix (Shingles) 2 doses by at least 4 weeks -- 2nd Hepatitis B vaccine (Heplisav-B) on or after 01/05/2024. documented in this encounter Consult Notes * Brianna Anglin APRN, C.NIsidoro, Reji.N.P. - 12/08/2023 10:30 AM CDT SUBJECTIVE REFERRAL SOURCE: Referred by Dr. Umana. CHIEF COMPLAINT/REASON FOR CONSULT Immunization review and recommendations. HISTORY OF PRESENT ILLNESS Ms. Redmond is a 63 y.o. female who has a history of alcoholic cirrhosis of the liver with asciteswho is being followed by the Hepatobiliary team here at [facility]. They have requested for patient to [...] Department of Nutrition and Diabetes Education in [place], [place] [address] [place] [phone] Katja Umaan M.D. 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
--- OUTSIDE RECORDS SUMMARY | 2023-12-28 07:57 | XMS_ITS | Encounter Summary ---
Author Name Unknown Organization [facility] Address [address] [place] [address] Care Team Providers Care Chief Meteorologist Name Role Phone Unavailable Primary Care Provider Unavailabl e Reason for Visit * Reason Comments Nicotine Dependence * Outpatient (Routine) - Closed Specialty Diagnoses / Procedures Referred By Contlulu t Referred To Contact Nicotine Dependence Sudha Bernstein M.A., Yesy.I.C.S.W., M.S.W. [address] [place] [phone] [facility] Referral ID Status Reason Start Date Expiration Date Visits Re quested Visits Authorized [id number] Closed 10/28/2023 04/28/2025 1 1 Encounter Details Date Type Department Care Team (Late st Contact Info) Description 11/11/2023 11:00 AM CUSTOMER SERVICE AGENT Virtual Visit Department of Nicotine Dependence, [facility], in [place], [place] [address] [place] [phone] Sudha Bernstein M.A., L.I.C.S.W., M.S.W. [address] [place] [phone] Nicotine Dependence Cigarettes With Withdrawal (Primary Dx) Social History Tobacco Use Types Packs/Day Years Used Date Smoking Tobacco: Every Day Cigarettes 0.5 40 Smokeless Tobacco: Never Alcohol Use Standard Drinks/Week Comments Not Currently 0 (1 standard drink = 0.6 oz pur e alcohol) [facility] Utilities Answer Date Recorded In the past 12 months has [employer] electric, gas, oil, or water company threatened [...] Sex Assigned at Female 10/06/2023 10:50 AM CUSTOMER SERVICE AGENT Gender Identity Female 10/06/2023 10:50 AM CUSTOMER SERVICE AGENT Sexual Orientation Straight 10/06/2023 10 :50 AM CUSTOMER SERVICE AGENT documented as of this encounter Progress Notes [...] concerns. The patient denied interest in having [facility] staff ask the [facility] medicalprovider if they recommend a different dose [...] to tape and the patient was informed [facility] staff can ask the [facility] medical provider to write on the prescription [...] 25 minutes was spent on tobacco counseling. OMER SERVICE AGENT documented in this encounter Plan of Treatment Upcoming Encounters Date Type Department Care Team (Late st Contact Info) Description 01/19/2024 10:00 AM CDT Telemedicine Department of Nutrition and Diabetes Education in [place], [place] [address] [place] [phone] Katja Umana M.D. [address] [place] [phone] Taty Cunningham M.S., RDN, LD [address] [place] [phone] documented as of this encounter Visit Diagnoses Diagnosis Nicotine Dependence Cigarettes With Withdrawal- Primary documented in this encounter Additional Health Concerns Assessment Noted Time PHQ-9 Depression Total Score: 3 10/20/19 24 7:30 AM CUSTOMER SERVICE AGENT documented as of this encounter
--- OUTSIDE RECORDS SUMMARY | 2023-12-28 07:57 | XMS_ITS | Encounter Summary ---
Author Name Unknown Organization [facility] Address [address] [place] [address] Care Team Providers Care [address] Magistrate Name Role Phone Unavailable Primary Care Provider Unavailabl e Reason for Referral * Outpatient (Routine) - Closed Specialty Diagnoses / Procedures Referred By Contact Referred To Contact Gastroenterology and Hepatology Katja Aguilera M.D. [address] [place] [phone] [facility] Referral ID Status Reason Start Date Expiration Date Visits Re quested Visits Authorized [id number] Closed 10/28/2023 04/28/2025 1 1 URCE DEVELOPMENT MANAGER Encounter Details Date Type Department Care Team (Late st Contact Info) Description 10/28/2023 Orders Only [facility] in [place], [place] [address] [place] [phone] Katja Aguilera M.D. [address] [place] [phone] Alcoholic Cirrhosis Of Liver With Ascites (HCC) (Primary Dx) Social History Tobacco Use Types Packs/Day Years Used Date Smoking Tobacco: Every Day Cigarettes 0.5 40 Smokeless Tobacco: Never Alcohol Use Standard Drinks/Week Comments Not Currently 0 (1 standard drink = 0.6 oz pur e alcohol) [facility] Utilities Answer Date Recorded In the past 12 months has [employer] electric, gas, oil, or water company threatened [...] your living situation today? [facility] [employer] [facility] to live 10/15/2023 Sex and Gender Information Value Date Recorded Sex Assigned at Female 10/06/2023 10:50 AM RESOURCE DEVELOPMENT MANAGER Gender Identity Female 10/06/2023 10:50 AM RESOURCE DEVELOPMENT MANAGER Sexual Orientation Straight 10/06/2023 10 :50 AM RESOURCE DEVELOPMENT MANAGER documented as of this encounter Miscellaneous Notes * Addendum Note - Katja Aguilera M.D. - 10/28/2023 2:39 PM CSTAddended by: KATJA AGUILERA on: 10/28/2023 02:48 PM Modules accepted: Orders URCE DEVELOPMENT MANAGER documented in this encounter Plan of Treatment Upcoming Encounters Date Type Department Care Team (Late st Contact Info) Description 01/19/2024 10:00 AM CDT Telemedicine Department of Nutrition and Diabetes Education in [place], [place] [address] [place] [phone] Katja Aguilera M.D. [address] [place] [phone] Taty Cunningham M.S., RDN, LD [address] [place] [phone] Scheduled Referrals Name Type Priority Associated Diagnoses Order Schedule Gastroenterology and Hepatology office visit (clinic) Outpatient Referral Routine Expected: 12/14/2023, Expires: 01/25/2025 documented as of this encounter Results * (ABNORMAL) Basic Metabolic Panel (11/01/2023 12:49 PM RESOURCE DEVELOPMENT MANAGER) Potassium, P 4.1 3.6 - 5.2 mmol/L 11/01/2023 1:13 PM RESOURCE DEVELOPMENT MANAGER CNFL Sodium, P 128(L) 135 - 145 mmol/L 11/01/2023 1:13 PM RESOURCE DEVELOPMENT MANAGER [facility]FL Chloride, P 95(L) 98 - 107 mmol/L 11/01/2023 1:13 PM RESOURCE DEVELOPMENT MANAGER CNFL Bicarbonate, P 26 22 - 29 mmol/L 11/01/2023 1:13 PM RESOURCE DEVELOPMENT MANAGER CNFL Anion Gap, P 7 7 - 15 11/01/2023 1:13 PM RESOURCE DEVELOPMENT MANAGER CNFL BUN (Blood Urea Nitrogen), P 10 6 - 21 mg/dL 11/01/2023 1:13 PM RESOURCE DEVELOPMENT MANAGER CNFL Creatinine 0.42(L) 0.59 - 1.04 mg/dL 11/01/2023 1:13 PM RESOURCE DEVELOPMENT MANAGER CNFL Estimated GFR (eGFR) >90 >=60 mL/min/BSA 11/01/2023 1:13 PM RESOURCE DEVELOPMENT MANAGER CNFL Comment: Estimated GFR calculated using the 2020 CKD_EPI creatinine equation. Calcium, Total, P 8.3(L) 8.8 - 10.2 mg/dL 11/01/2023 1:13 PM RESOURCE DEVELOPMENT MANAGER CNFL Glucose, P 105 70 - 140 mg/dL 11/01/2023 1:13 PM RESOURCE DEVELOPMENT MANAGER CNFL Blood (Blood, Venous) 11/01/2023 12:49 PM RESOURCE DEVELOPMENT MANAGER 11/01/2023 12:54 PM RESOURCE DEVELOPMENT MANAGER Katja Aguilera M.D. LAB BLOOD ADD-ON [facility] [address] [place] [phone], [facility] CNFL [facility] in [address] [address] documented in this encounter Visit Diagnoses Diagnosis Alcoholic Cirrhosis Of Liver With Ascites (HCC)- Primary documented in this encounter Additional Health Concerns Assessment Noted Time PHQ-9 Depression Total Score: 3 10/20/19 24 7:30 AM RESOURCE DEVELOPMENT MANAGER documented as of this encounter
--- OUTSIDE RECORDS SUMMARY | 2023-12-28 07:57 | XMS_ITS | Encounter Summary ---
Author Name Unknown Organization [facility] Address [address] [place] [address] Care Team Providers Care Aquatics Director Name Role Phone Elsewhere, Pcp Primary Care Provider Unavailabl e Reason for Visit * Reason Onset Date Comments Pre-visit Intake 12/07/2023 Encounter Details Date Type Department Care Team (Latest Contact Info) Description 12/07/2023 1:45 PM CDT Clinical Communication Virtual Review in [place], [place] 200 [place], [place] [phone] Pre-visit Intake Social History Tobacco Use Types Packs/Day Years Used Date Smoking Tobacco: Every Day Cigarettes 0.5 40.9 Started: 02/11/1983 Passive Smoke Exposure: Never Smokeless Tobacco: Never Alcohol Use Standard Drinks/Week Comments Not Currently 0 (1 standard drink = 0.6 oz pur e alcohol) [facility] Utilities Answer Date Recorded In [...] Date Recorded Employment status Working with temporary [employer] tions 10/15/2023 Housing Stability Answer Date Recorded What is your living situation today? I have a [facility] place to live 10/15/2023 Sex and Gender Information Value Date Recorded Sex Assigned at Female 10/06/2023 10:50 AM MEDICAL BILLING SERVICE Gender Identity Female 10/06/2023 10:50 AM MEDICAL BILLING SERVICE Sexual Orientation Straight 10/06/2023 10 :50 AM MEDICAL BILLING SERVICE documented as of this encounter Plan of Treatment Upcoming Encounters Date Type Department Care Team (Late st Contact Info) Description 01/19/2024 10:00 AM CDT Telemedicine Department of Nutrition and Diabetes Education in [place], [place] [address] [place] [phone] Katja Umana M.D. [address] [place] [phone] Taty Cunningham M.S., RDN, LD [address] [place] [phone] documented as of this encounter Visit Diagnoses Not on filedocumented in this encounter Additional Health Concerns Assessment Noted Time PHQ-9 Depression Total Score: 3 10/20/19 7:30 AM MEDICAL BILLING SERVICE documented as of this encounter Care Teams Aquatics Director Relationship Specialty Start Date End Date Elsewhere, Pcp PCP - General Family Medicine 12/07/23 documented as of this encounter
--- OUTSIDE RECORDS SUMMARY | 2023-12-28 07:57 | XMS_ITS | Encounter Summary ---
Author Name Unknown Organization [facility] Address [address] [place] [address] Care Team Providers Care All Source Intelligence Technician Name Role Phone Elsewhere, Pcp Primary Care Provider Unavailabl e Reason for Visit * Reason Comments Nicotine Dependence * Outpatient (Routine) - Closed Specialty Diagnoses / Procedures Referred By Contlulu t Referred To Contact Nicotine Dependence Sudha Bernstein M.A., Yesy.I.C.S.W., M.S.W. [address] [place] [phone] [facility] Referral ID Status Reason Start Date Expiration Date Visits Re quested Visits Authorized [id number] Closed 11/18/2023 05/19/2025 1 1 Encounter Details Date Type Department Care Team (Late st Contact Info) Description 12/20/2023 2:00 PM CDT Virtual Visit Department of Nicotine Dependence, [facility], in [place], [place] [address] [place] [phone] Sudha Bernstein M.A., L.I.C.S.W., M.S.W. [address] [place] [phone] Nicotine Dependence Cigarettes With Withdrawal (Primary Dx) Social History Tobacco Use Types Packs/Day Years Used Date Smoking Tobacco: Every Day Cigarettes 0.5 40.9 Started: 02/11/1983 Passive Smoke Exposure: Never Smokeless Tobacco: Never Alcohol Use Standard Drinks/Week Comments Not Currently 0 (1 standard drink = 0.6 oz pur e alcohol) [facility] Utilities Answer Date Recorded In the past 12 months has [employer], gas, oil, or water [employer] threatened to shut off services in your [...] Date Recorded Employment status Working with temporary [employer] tions 10/15/2023 Housing Stability Answer Date Recorded What is your living situation today? I have a [facility] place to live 10/15/2023 Sex and Gender Information Value Date Recorded Sex Assigned at Female 10/06/2023 10:50 AM ASSESSMENT CLINICIAN Gender Identity Female 10/06/2023 10:50 AM ASSESSMENT CLINICIAN Sexual Orientation Straight 10/06/2023 10 :50 AM ASSESSMENT CLINICIAN documented as of this encounter Progress Notes * Sudha Bernstein M.A., L.I.C.S.W., M.S.W. - 12/20/2023 2:00 PM CDT OBJECTIVE Monique Yvonne Norgaard attended a phone follow-up appointment regarding her tobacco use. ASSESSMENT [facility] staff contacted the patient as a follow [...] patient was asked if she would like [facility] staff to contact her in the future [...] Department of Nutrition and Diabetes Education in [place], [place] [address] [place] [address] Katja Umana M.D. [address] [place] [phone] Taty Cunningham M.S., RDN, LD [address] [place] [phone] documented as of this encounter Visit Diagnoses Diagnosis Nicotine Dependence Cigarettes With Withdrawal- Primary documented in this encounter Additional Health Concerns Assessment Noted Time PHQ-9 Depression Total Score: 3 10/20/19 24 7:30 AM ASSESSMENT CLINICIAN documented as of this encounter Care Teams All Source Intelligence Technician Relationship Specialty Start Date End Date Elsewhere, Pcp PCP - General Family Medicine 12/07/23 documented as of this encounter
--- OUTSIDE RECORDS SUMMARY | 2023-12-28 07:57 | XMS_ITS | Encounter Summary ---
Author Name Unknown Organization [facility] Address [address] [place] [address] Care Team Providers Care Clerical Coordinator Name Role Phone Unavailable Primary Care Provider Unavailabl e Reason for Referral * Outpatient (Routine) - Closed Specialty Diagnoses / Procedures Referred By Contlulu t Referred To Contact Nicotine Dependence Sudha Bernstein M.A., DonnS.Tom, M.S.W. [address] [place] [phone] [facility] Referral ID Status Reason Start Date Expiration Date Visits Re quested Visits Authorized [id number] Closed 11/18/2023 05/19/2025 1 1 Scheduling Instructions Please schedule a follow up phone visit. NESS RN Encounter Details Date Type Department Care Team (Late st Contact Info) Description 11/18/2023 Orders Only Department of Nicotine Dependence, [facility] in [place], [place] [address] [place] [phone] Sudha Bernstein M.A., NubiaC.S.W., M.S.W. [address] [place] [phone] Social History Tobacco Use Types Packs/Day Years Used Date Smoking Tobacco: Every Day Cigarettes 0.5 40 Smokeless Tobacco: Never Alcohol Use Standard Drinks/Week Comments Not Currently 0 (1 standard drink = 0.6 oz pur e alcohol) [facility] Utilities Answer Date Recorded In the past 12 months has e electric, gas, oil, or water [employer] threatened to shut off services in your [...] Date Recorded Employment status Working with temporary [employer] tions 10/15/2023 Housing Stability Answer Date Recorded What is your living situation today? I have a [facility] place to live 10/15/2023 Sex and Gender Information Value Date Recorded Sex Assigned at Female 10/06/2023 10:50 AM WELLNESS RN Gender Identity Female 10/06/2023 10:50 AM WELLNESS RN Sexual Orientation Straight 10/06/2023 10 :50 AM WELLNESS RN documented as of this encounter Plan of Treatment Upcoming Encounters Date Type Department Care Team (Late st Contact Info) Description 01/19/2024 10:00 AM CDT Telemedicine Department of Nutrition and Diabetes Education in [place], [place] [address] [place] [phone] Katja Umana M.D. [address] [place] [phone] Taty Cunningham M.S., RDN, LD [address] [place] [phone] Scheduled Referrals Name Type Priority Associated Diagnoses Order Schedule Nicotine Dependence office visit (clinic) Outpatient Referral Routine Expected: 12/20/2023, Expires: 02/17/2025 documented as of this encounter Visit Diagnoses Not on filedocumented in this encounter Additional Health Concerns Assessment Noted Time PHQ-9 Depression Total Score: 3 10/20/19 24 7:30 AM WELLNESS RN documented as of this encounter
--- OUTSIDE RECORDS SUMMARY | 2023-12-28 07:57 | XMS_ITS | Encounter Summary ---
Author Name Unknown Organization [facility] Address [address] [place] [address] Care Team Providers Care Oracle E Business Developer Name Role Phone Elsewhere, Pcp Primary Care Provider Unavailabl e Reason for Referral * Outpatient (Routine) - Authorized Specialty Diagnoses / Procedures Referred By Contlulu t Referred To Contact Nicotine Dependence Sudha Bernstein M.A., DonnSChandrakant, M.S.W. [address] [place] [phone] [facility] Referral ID Status Reason Start Date Expiration Date V isits Requested Visits Authorized [id number] Authorized 12/20/2023 06/20/2025 1 1 Scheduling Instructions Please schedule this patient for a follow up phone visit on March 21. No need to call it can just be added to my calendar. Encounter Details Date Type Department Care Team (Late st Contact Info) Description 12/20/2023 Orders Only Department of Nicotine Dependence, [facility], in [place], [place] [address] [place] [phone] Sudha Bernstein M.A., AvelIPetrosC.S.W., M.S.W. [address] [place] [phone] Social History Tobacco Use Types Packs/Day Years [...] your living situation today? I have a [facility] place to live 10/15/2023 Sex and Gender Information Value Date Recorded Sex Assigned at Female 10/06/2023 10:50 AM ACTUARIAL TECHNICIAN Gender Identity Female 10/06/2023 10:50 AM ACTUARIAL TECHNICIAN Sexual Orientation Straight 10/06/2023 10 :50 AM ACTUARIAL TECHNICIAN documented as of this encounter Plan of Treatment Upcoming Encounters Date Type Department Care Team (Late st Contact Info) Description 01/19/2024 10:00 AM CDT Telemedicine Department of Nutrition and Diabetes Education in [place], [place] [address] [place] [phone] Katja Umana M.D. [address] [place] [phone] Taty Cunningham M.S., RDN, LD [address] [place] [phone] Scheduled Referrals Name Type Priority Associated Diagnoses Order Schedule Nicotine Dependence office visit (clinic) Outpatient Referral Routine Expected: 03/21/2024, Expires: 03/20/2025 documented as of this encounter Visit Diagnoses Not on filedocumented in this encounter Additional Health Concerns Assessment Noted Time PHQ-9 Depression Total Score: 3 10/20/19 24 7:30 AM ACTUARIAL TECHNICIAN documented as of this encounter Care Teams Oracle E Business Developer Relationship Specialty Start Date End Date Elsewhere, Pcp PCP - General Family Medicine 12/07/23 documented as of this encounter
[2023-12-28 07:58] VITALS: BP 117/68; PULSE 90; RESP 16; O2SAT 100
--- OUTSIDE RECORDS SUMMARY | 2023-12-28 07:58 | XMS_ITS | Encounter Summary ---
Author Name Unknown Organization [facility] Address [address] [place] [address] Care Team Providers Care Pharmacy Stock Clerk Name Role Phone Unavailable Primary Care Provider Unavailabl e Encounter Details Date Type Department Care Team (Latest Contact Info) Description 10/27/2023 10:26 AM HIGH ENERGY FORMING EQUIPMENT OPERATOR - 10/27/2023 11:59 PM HIGH ENERGY FORMING EQUIPMENT OPERATOR Hospital Encounter Department of Laboratory Medicine in [address] [phone] Katja Umana M.D. [address] [place] [address] Alcoholic Cirrhosis Of Liver With Ascites (HCC); Alcohol Moderate Or Severe Use Disorder (Dependence) Uncomplicated (HCC) Discharge Disposition: Home or Self Care Social History Tobacco Use Types Packs/Day Years Used Date Smoking Tobacco: Every Day Cigarettes 0.5 40 Smokeless Tobacco: Never Alcohol Use Standard Drinks/Week Comments Not Currently 0 (1 standard drink = 0.6 oz pur e alcohol) [facility] Utilities Answer Date Recorded In the past 12 months has e [employer], gas, oil, or water [employer] threatened to shut off services in your [...] Date Recorded Employment status Working with temporary [employer] 10/15/2023 Housing Stability Answer Date Recorded What is your living situation today? I have a [facility] place to live 10/15/2023 Sex and Gender Information Value Date Recorded Sex Assigned at Female 10/06/2023 10:50 AM HIGH ENERGY FORMING EQUIPMENT OPERATOR Gender Identity Female 10/06/2023 10:50 AM HIGH ENERGY FORMING EQUIPMENT OPERATOR Sexual Orientation Straight 10/06/2023 10 :50 AM HIGH ENERGY FORMING EQUIPMENT OPERATOR documented as of this encounter Medications at [...] mouth at bedtime. 30 tablet 10/24/2023 11/22/2023 documented as of this encounter Plan of Treatment Upcoming Encounters Date Type Department Care Team (Late st Contact Info) Description 01/19/2024 10:00 AM CDT Telemedicine Department of Nutrition and Diabetes Education in [place], [place] [address] [place] [address] Katja Umana M.D. [address] [place] [phone] Taty Cunningham M.S., RDN, LD [address] [place] [phone] documented as of this encounter Procedures Procedure Name Priority Date/Time Associated Diagnosis Comments PHOSPHATIDYLETHANOL CONFIRMATION, B Routine 10/27/2023 10:33 AM HIGH ENERGY FORMING EQUIPMENT OPERATOR Alcohol Moderate Or Severe Use Disorder (Dependence) Uncomplicated (HCC) BASIC METABOLIC PANEL, S/P Routine 10/27 10:33 AM HIGH ENERGY FORMING EQUIPMENT OPERATOR Alcoholic Cirrhosis Of Liver With Ascites (HCC) documented in this encounter Results * Phosphatidylethanol Confirmation (10/27/2023 10:33 AM HIGH ENERGY FORMING EQUIPMENT OPERATOR) PEth 16:0/18:1 (POPEth) by LC-MS/MS <20 Cutoff: 10 ng/mL 10/29/2023 8:22 PM HIGH ENERGY FORMING EQUIPMENT OPERATOR [facility] Comment: Testing performed at a x2 [...] <10 Cutoff: 10 ng/mL 10/29/2023 8:22 PM HIGH ENERGY FORMING EQUIPMENT OPERATOR [facility] Comment: PEth 16:0/18:2 (PLPEth) Reference ranges are not well established PEth Interpretation Negative. 10/29 8:22 PM HIGH ENERGY FORMING EQUIPMENT OPERATOR [facility] Comment: ----ADDITIONAL INFORMATION---- This report is intended for use in clinical monitoring and management of patients. ??It is not intended for use in employment-related testing. This test was developed and its performance characteristics determined by [facility] in a manner consistent with CLIA requirements. This test has not been cleared or approved by the U.S. Food and Drug Administration. Blood (Blood, Venous) 10/27/2023 10:33 AM HIGH ENERGY FORMING EQUIPMENT OPERATOR 10/27/2023 9:57 PM HIGH ENERGY FORMING EQUIPMENT OPERATOR Romana Diane M.D., Ph.D. LAB BLO OD ADD-ON [facility] [address] [place] [address] [facility] [address] [place] [address] [place] [address] * (ABNORMAL) Basic Metabolic Panel (10/27/2023 10:33 AM HIGH ENERGY FORMING EQUIPMENT OPERATOR) Pathologist [facility] Potassium, P 3.6 3.6 - 5.2 mmol/L 10/27/2023 10:57 AM HIGH ENERGY FORMING EQUIPMENT OPERATOR [facility] Sodium, P 125(L) 135 - 145 mmol/L 10/27/2023 10:57 AM HIGH ENERGY FORMING EQUIPMENT OPERATOR [facility] Chloride, P 92(L) 98 - 107 mmol/L 10/27/2023 10:57 AM HIGH ENERGY FORMING EQUIPMENT OPERATOR [facility] Bicarbonate, P 21(L) 22 - 29 mmol/L 10/27/2023 10:57 AM HIGH ENERGY FORMING EQUIPMENT OPERATOR [facility] Anion Gap, P 12 7 - 15 10/27/2023 10:57 AM HIGH ENERGY FORMING EQUIPMENT OPERATOR [facility] BUN (Blood Urea Nitrogen), P 10 6 - 21 mg/dL 10/27/2023 10:57 AM HIGH ENERGY FORMING EQUIPMENT OPERATOR [facility] Creatinine 0.47(L) 0.59 - 1.04 mg/dL 10/27/2023 10:57 AM HIGH ENERGY FORMING EQUIPMENT OPERATOR [facility] Estimated GFR (eGFR) >90 >=60 mL/min/BSA 10/27/2023 10:57 AM HIGH ENERGY FORMING EQUIPMENT OPERATOR [facility] Comment: Estimated GFR calculated using the 2020 CKD_EPI creatinine equation. Calcium, Total, P 8.4(L) 8.8 - 10.2 mg/dL 10/27/2023 10:57 AM HIGH ENERGY FORMING EQUIPMENT OPERATOR [facility] Glucose, P 93 70 - 140 mg/dL 10/27/2023 10:57 AM HIGH ENERGY FORMING EQUIPMENT OPERATOR [facility] Blood (Blood, Venous) 10/27/2023 10:33 AM HIGH ENERGY FORMING EQUIPMENT OPERATOR 10/27/2023 10:36 AM HIGH ENERGY FORMING EQUIPMENT OPERATOR Katja Umana M.D. LAB BLOOD ADD-ON Performing Organization Address City/State/[facility] Co de Phone Number [facility] [address] [place] [address], [facility] CNFL [place] [address] documented in this encounter Visit Diagnoses Diagnosis Alcoholic Cirrhosis Of Liver With Ascites (HCC) Alcohol Moderate Or Severe Use Disorder (Dependence) Uncomplicated (HCC) documented in this encounter Additional Health Concerns Assessment Noted Time PHQ-9 Depression Total Score: 3 10/20/19 24 7:30 AM HIGH ENERGY FORMING EQUIPMENT OPERATOR documented as of this encounter
--- OUTSIDE RECORDS SUMMARY | 2023-12-28 07:58 | XMS_ITS | Encounter Summary ---
Author Name Unknown Organization [facility] Address [address] [place] [id number] Care Team Providers Care Pattern Chain Maker Supervisor Name Role Phone Unavailable Primary Care Provider Unavailabl e Reason for Referral * Outpatient (Routine) - Closed Specialty Diagnoses / Procedures Referred By Dotty oakes Referred To Contact Diagnoses Alcoholic Cirrhosis Of Liver With Ascites (HCC) Procedures EGD (EsophagoGastroDuodenoscopy) Restricted Katja Umana M.D. [address] [place] [address] [facility] Referral ID Status Reason Start Date Expiration Date Visits Re quested Visits Authorized [id number] Closed 10/06/2023 10/05/2024 1 1 CLE MECHANIC Reason for Visit * Outpatient (Routine) - Closed Specialty Diagnoses / Procedures Referred By Dotty oakes Referred To Contact Diagnoses Alcoholic Cirrhosis Of Liver With Ascites (HCC) Procedures EGD (EsophagoGastroDuodenoscopy) Restricted Katja Umana M.D. [address] [place] [address] [facility] Referral ID Status Reason Start Date Expiration Date Visits Re quested Visits Authorized [id number] Closed 10/06/2023 10/05/2024 1 1 Encounter Details Date Type Department Care Team (Latest Contact Info) Description 10/08/2023 1:09 PM BICYCLE MECHANIC - 10/08/2023 4:27 PM BICYCLE MECHANIC Hospital Encounter Division of Gastroenterology in [place], [place] [address] [place] [phone] Katja Umana M.D. [address] [place] [address] Alcoholic Cirrhosis Of Liver With Ascites (HCC) [...] Sex Assigned at Female 10/06/2023 10:50 AM BICYCLE MECHANIC Gender Identity Female 10/06/2023 10:50 AM BICYCLE MECHANIC Sexual Orientation Straight 10/06/2023 10 :50 AM BICYCLE MECHANIC documented as of this encounter Last Filed Vital Signs Vital Sign Reading Time Taken Comments Blood Pressure 120/74 10/08/2023 4:11 PM BICYCLE MECHANIC Pulse 112 10/08/2023 4:16 PM BICYCLE MECHANIC Temperature 37.1 ??C (98.8 ??F) 10/08/2023 3:49 PM CS T Respiratory Rate 24 10/08/2023 4:16 PM BICYCLE MECHANIC Oxygen Saturation 93% 10/08/2023 4:16 PM BICYCLE MECHANIC Inhaled Oxygen Concentration - - Weight 57.2 kg (126 lb) 10/08/2023 2:23 PM BICYCLE MECHANIC Height 169.1 cm (5' 6.58) 10/08/2023 2:23 PM CS T Body Mass Index 19.99 10/08/2023 2:23 PM BICYCLE MECHANIC documented in this encounter Discharge Instructions * Discharge Instructions* Refugio Martinez R.N. - 10/08/2023 4:02 PM BICYCLE MECHANIC Full Liquid Diet for today (10/08) With [...] nuts, hard fruit pieces, soft breadsticks, pancake, Yakut toast, potatoes, white rice. Soft, cooked vegetables, white or sweet potatoes without skin, Yakut fries, hash browns, vegetablejuices. Cooked or canned fruit. Gelatin, ice cream without nuts, pudding, cake, tender pies, cookies, bars without nuts, seeds and coconut, fruit ice. Sugar, honey, jelly, candy without nuts or coconut. Supplements without fiber. Mild seasonings and mild condiments. CLE MECHANIC documented in this encounter Medications at Time of Discharge Medication Sig Dispensed Refills Start Date End Date acetaminophen 650 mg/20.3 mL suspension Take 650 mg by mouth every 4 (four) hours as needed (for pain). No more than 2000 mg in 24 hours 11/08/2014 Klor-Con/EF 25 mEq disintegrating tablet Take 25 mEq by mouth 3 (three) times a day. 09/21/2023 10/24/2023 documented as of this encounter Plan of Treatment Upcoming Encounters Date Type Department Care Team (Late st Contact Info) Description 01/19/2024 10:00 AM CDT Telemedicine Department of Nutrition and Diabetes Education in [place], [place] [address] [place] [address] Katja Umana M.D. [address] [place] [phone] Taty Cunningham M.S., RDN, LD [address] [place] [phone] documented as of this encounter Procedures Procedure Name Priority Date/Time Associated Diagnosis Comments EGD (ESOPHAGOGASTRODUODE NOSCOPY) RESTRICTED Routine 10/08/2023 3:17 PM BICYCLE MECHANIC Alcoholic Cirrhosis Of Liver With Ascites (HCC) UPPER GI ENDOSCOPY Routine 10/08/2023 3: 17 PM BICYCLE MECHANIC Alcoholic Cirrhosis Of Liver With Ascites (HCC) documented in this encounter Results * Upper GI Endoscopy (10/08/2023 3:17 PM BICYCLE MECHANIC) 10/08/2023 3:17 PM BICYCLE MECHANIC Impressions [employer] - 10/08/2023 3:53 PM BICYCLE MECHANIC Post-op Diagnoses: ? 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 ? - Mild portal hypertensive gastropathy. ? - Normal examined duodenum. ? - No specimens collected. Narrative [employer] - 10/08/2023 3:53 PM BICYCLE MECHANIC Scot 6 GI GI Patient Name: Monique [...] Katja Umana M.D. [facility] documented in this encounter Visit Diagnoses Diagnosis Alcoholic Cirrhosis Of Liver With Ascites (HCC) documented in this encounter Administered Medications documented in this encounter Active and Recently Administered Medications Times are shown in BICYCLE MECHANIC. Continuous Medication Order 10/06/2023 10/07/2023 10/08/2023 Lactated [...]
--- OUTSIDE RECORDS SUMMARY | 2023-12-28 07:58 | XMS_ITS | Encounter Summary ---
Author Name Unknown Organization [facility] Address [address] [place] [address] Care Team Providers Care Chocolate Finisher Name Role Phone Unavailable Primary Care Provider Unavailabl e Encounter Details Date Type Department Care Team (Latest Contact Info) Description 10/27/2023 10:26 AM BULB GROWER - 10/27/2023 11:59 PM BULB GROWER Hospital Encounter Department of Laboratory Medicine in [address] [phone] Romana Diane M.D., Ph.D. [address] [place] [address] Alcohol Moderate Or Severe Use Disorder (Dependence) Uncomplicated (HCC) Discharge Disposition: Home or Self Care Social History Tobacco Use Types Packs/Day Years Used Date Smoking Tobacco: Every Day Cigarettes 0.5 40 Smokeless Tobacco: Never Alcohol Use Standard Drinks/Week Comments Not Currently 0 (1 standard drink = 0.6 oz pur e alcohol) [facility] Utilities Answer Date Recorded In the past 12 months has e [employer], gas, oil, or water [employer] threatened to shut off services in [...] Date Recorded Employment status Working with temporary [employer] 10/15/2023 Housing Stability Answer Date Recorded What is your living situation today? I have a [facility] place to live 10/15/2023 Sex and Gender Information Value Date Recorded Sex Assigned at Female 10/06/2023 10:50 AM BULB GROWER Gender Identity Female 10/06/2023 10:50 AM BULB GROWER Sexual Orientation Straight 10/06/2023 10 :50 AM BULB GROWER documented as of this encounter Medications at [...] Department of Nutrition and Diabetes Education in [place], [place] [address] [place] [address] Katja Umana M.D. [address] [place] [address] Taty Cunningham M.S., RDN, LD [address] [place] [address] documented as of this encounter Procedures Procedure Name Priority Date/Time Associated Diagnosis Comments ETHYL GLUCURONIDE CONFIRMATION, U Routine 10/27/2023 10:38 AM BULB GROWER Alcohol Moderate Or Severe Use Disorder (Dependence) Uncomplicated (HCC) CONFIRMED DRUG ABUSE PANEL, U Routine 10/27/2023 10:38 AM BULB GROWER Alcohol Moderate Or Severe Use Disorder (Dependence) Uncomplicated (HCC) documented in this encounter Results * Drug Abuse Survey with Confirmation, Urine (10/27/2023 10:38 AM BULB GROWER) Alcohol Negative Cutoff: 10 mg/dL 10/28/2023 9:08 AM BULB GROWER SDS Amphetamines Negative Cutoff: 500 ng/mL 10/28/2023 9:08 AM BULB GROWER [facility] Barbiturates Negative Cutoff: 200 ng/mL 10/28/2023 9:08 AM BULB GROWER SDS Benzodiazepines Negative Cutoff: 100 ng/mL 10/28/2023 9:08 AM BULB GROWER SDS Cocaine Negative Cutoff: 150 ng/mL 10/28/2023 9:08 AM BULB GROWER [facility] Comment: This cocaine immunoassay targets benzoylecgonine the primary metabolite of cocaine. Opiates Negative Cutoff: 300 ng/mL 10/28/2023 9:08 AM BULB GROWER SDS Phencyclidine Negative Cutoff: 25 ng/mL 10/28/2023 9:08 AM BULB GROWER SDS Tetrahydrocannabinol Negative Cutoff: 50 ng/mL 10/28/2023 9:08 AM BULB GROWER [facility] Comment: This immunoassay targets delta-9 tetrahydrocannabinol carboxylic acid (THC-COOH), a metabolite of delta-9 tetrahydrocannabinol the main psychoactive ingredient of marijuana. ----ADDITIONAL INFORMATION---- This report is intended for use in clinical monitoring or management of patients. ??It is not intended for use in employment-related testing. Urine (Urine, Midstream) 10/27/2023 10:38 AM BULB GROWER 10/27/2023 10:03 PM BULB GROWER Romana Diane M.D., Ph.D. LAB URI NE ORDERABLES Performing Organization Address [facility] Co de Phone Number [facility] [address] [place] [id number] [facility] [address] [place] [address] [place] [id number] * Ethyl Glucuronide Confirmation, Random, Urine (10/27/2023 10:38 AM BULB GROWER) Pathologist [facility] Ethyl Glucuronide Confirmation, U Negative Cutoff: 250 ng/mL 10/29/2023 8:19 AM BULB GROWER [facility] Ethyl Sulfate Negative Cutoff: 100 ng/mL 10/29/2023 8:19 AM BULB GROWER [facility] Ethyl Gluc/Sulfate Interpretation Negative. 10/29/2023 8:19 AM BULB GROWER [facility] Comment: ----ADDITIONAL INFORMATION---- This report is intended for use in clinical monitoring and management of patients. ??It is not intended for use in employment-related testing. This test was developed and its performance characteristics determined by [facility] in a manner consistent with CLIA requirements. This test has not been cleared or approved by the U.S. Food and Drug Administration. Urine (Urine, Midstream) 10/27/2023 10:38 AM BULB GROWER 10/27/2023 10:00 PM BULB GROWER Romana Diane M.D., Ph.D. LAB URI NE ORDERABLES Performing Organization Address [facility] Co de Phone Number [facility] [address] [place] [phone] [facility] [address] [place] [address] [place] [phone] documented in this encounter Visit Diagnoses Diagnosis Alcohol Moderate Or Severe Use Disorder (Dependence) Uncomplicated (HCC) documented in this encounter Additional Health Concerns Assessment Noted Time PHQ-9 Depression Total Score: 3 10/20/19 24 7:30 AM BULB GROWER documented as of this encounter
--- OUTSIDE RECORDS SUMMARY | 2023-12-28 07:58 | XMS_ITS | Encounter Summary ---
Author Name Unknown Organization [facility] Address [address] [place] [address] Care Team Providers Care Care Tech Name Role Phone Unavailable Primary Care Provider Unavailabl e Reason for Referral * Outpatient (Routine) - Closed Specialty Diagnoses / Procedures Referred By Dotty t Referred To Contact Diagnoses Alcoholic Cirrhosis Of Liver With Ascites (HCC) Procedures US Paracentesis with Imaging Guidance Katja Umana M.D. 200 [place] [address] [facility] Referral ID Status Reason Start Date Expiration Date Visits Re quested Visits Authorized [id number] Closed 10/06/2023 10/05/2024 1 1 GER DATA WAREHOUSE Reason for Visit * Outpatient (Routine) - Closed Specialty Diagnoses / Procedures Referred By Dotty oakes Referred To Contact Diagnoses Alcoholic Cirrhosis Of Liver With Ascites (HCC) Procedures US Paracentesis with Imaging Guidance Katja Umana M.D. [address] [place] [address] [facility] Referral ID Status Reason Start Date Expiration Date Visits Re quested Visits Authorized [id number] Closed 10/06/2023 10/05/2024 1 1 Encounter Details Date Type Department Care Team (Latest Contact Info) Description 10/08/2023 10:43 AM MANAGER DATA WAREHOUSE - 10/08/2023 1:05 PM MANAGER DATA WAREHOUSE Hospital Encounter Department of Radiology, [facility] in [place] [address] [place] [address] Katja Umana M.D. [address] [place] [address] Alcoholic Cirrhosis Of Liver With Ascites (HCC) [...] Assigned at Female 10/06/2023 10:50 AM MANAGER DATA WAREHOUSE Gender Identity Female 10/06/2023 10:50 AM MANAGER DATA WAREHOUSE Sexual Orientation Straight 10/06/2023 10 :50 AM MANAGER DATA WAREHOUSE documented as of this encounter Last Filed Vital Signs Vital Sign Reading Time Taken Comments Blood Pressure 121/63 10/08/2023 12:30 PM MANAGER DATA WAREHOUSE Pulse 104 10/08/2023 12:30 PM MANAGER DATA WAREHOUSE Temperature 36.5 ??C (97.7 ??F) 10/08/2023 12:[address] Respiratory Rate - - Oxygen Saturation 98% 10/08/2023 12:30 PM MANAGER DATA WAREHOUSE Inhaled Oxygen Concentration - - Weight - - Height - - Body Mass Index - - documented in this encounter Discharge Instructions * Attachments The following attachments cannot be sent through Care Everywhere. * Paracentesis (Algerian) documented in this encounter Medications at Time [...] Department of Nutrition and Diabetes Education in [place], [place] [address] [place] [address] Katja Umana M.D. [address] [place] [address] Taty Cunningham M.S., RDN, LD [address] [place] [address] documented as of this encounter Procedures Procedure Name Priority Date/Time Associated Diagnosis Comments US PARACENTESIS WITH IMAGING GUIDANCE RAD - Routine (most inpatients and all outpatients) 10/08/2023 12:57 PM MANAGER DATA WAREHOUSE Alcoholic Cirrhosis Of Liver With Ascites (HCC) PROTEIN, TOTAL, BF Timed 10/08/2023 11 :14 AM MANAGER DATA WAREHOUSE BACTERIAL CULTURE, AEROBIC + SUSC Timed 10/08/2023 11:14 AM MANAGER DATA WAREHOUSE CELL COUNT AND DIFFERENTIAL, BF Timed 10/08/2023 11:14 AM MANAGER DATA WAREHOUSE ALBUMIN, BODY FLUID Timed 10/08/2023 1 1:14 AM MANAGER DATA WAREHOUSE documented in this encounter Results * US Paracentesis with Imaging Guidance (10/08/2023 12:57 PM MANAGER DATA WAREHOUSE) Anatomical Region Laterality Modality Abdomen, Ultrasound RST LOS, Ultrasound ARZ LOS, Procedure FLA LOS, Abdominal FLA LOS, Procedural, Procedural NWWI LOS N/A Ultrasound Impressions 10/08/2023 1:24 PM MANAGER DATA WAREHOUSE Ultrasound-guided paracentesis. EP Narrative 10/08/2023 1:24 PM MANAGER DATA WAREHOUSE EXAM: US PARACENTESIS WITH IMAGING GUIDANCE PRE-PROCEDURE: [...] IMPRESSION: Ultrasound-guided paracentesis. EP Katja Umana M.D. [facility] [place]EDURES * Protein, Total, Body Fluid (10/08/2023 11:14 AM MANAGER DATA WAREHOUSE) Protein, Total, BF 0.9 See Comment g/dL 10/08/2023 12:53 PM MANAGER DATA WAREHOUSE DTL Comment: ----ADDITIONAL INFORMATION---- A pleural fluid [...] clinical findings. All other fluids refer to [email or web address]Kal[employer] for further interpretive information. This test has been modified from the electrogalvanizing machine operator's instructions. Its performance characteristics were determined by [facility] in a manner consistent with CLIA requirements. This test has not been cleared or approved by the U.S. Food and Drug Administration. Fluid Type, Protein, Total Fluid, Peritoneal Fluid 10/08/2023 11:54 AM MANAGER DATA WAREHOUSE DTL Fluid (Peritoneal Fluid) 10/08/2023 11:14 AM MANAGER DATA WAREHOUSE 10/08/2023 12:09 PM MANAGER DATA WAREHOUSE Katja Umana M.D. LAB BODY FLUIDS AND STOOLS ORDERABLES [facility] [address] [place], [place] [phone] [place] [address] [address] [place] [address] * Albumin, Body Fluid (10/08/2023 11:14 AM MANAGER DATA WAREHOUSE) Albumin BF 0.5 See Comment g/dL 10/08/2023 12:53 PM MANAGER DATA WAREHOUSE DTL Comment: ----ADDITIONAL INFORMATION---- Peritoneal fluid albumin is used to calculate the serum-ascites albumin gradient (SAAG). Values greater than or equal to 1.1 g/dL suggest portal hypertension. Pleural fluid albumin may be used to calculate a serum-effusion albumin gradient. Values greater than 1.2 g/dL are most consistent with a transudative process. ?? All other fluids refer to [email or web address]iki for further interpretive information. This test has been modified from the electrogalvanizing machine operator's instructions. Its performance characteristics were determined by [facility] in a manner consistent with CLIA requirements. This test has not been cleared or approved by the U.S. Food and Drug Administration. Fluid Type, Albumin Fluid, Peritoneal Fluid 10/08/2023 11:54 AM MANAGER DATA WAREHOUSE DTL Fluid (Peritoneal Fluid) 10/08/2023 11:14 AM MANAGER DATA WAREHOUSE 10/08/2023 12:09 PM MANAGER DATA WAREHOUSE Katja Umana M.D. LAB BODY FLUIDS AND STOOLS ORDERABLES [facility] [address] [place] [address], [facility] [address] [place] [address] * Cell Count and Differential, Body Fluid (10/08/2023 11:14 AM MANAGER DATA WAREHOUSE) Fluid Type Peritoneal /Paracente sis 10/08/2023 12:06 PM MANAGER DATA WAREHOUSE DHPM Gross Appearance Serous 10/08/19 24 12:06 PM MANAGER DATA WAREHOUSE DHPM Total Nucleated Cells 187 /mcL 10/08/2023 12:06 PM MANAGER DATA WAREHOUSE DHPM Comment: ----REFERENCE VALUE---- Synovial: <150 /mcL Peritoneal: <500 /mcL Pleural: <500 /mcL Pericardial: <500 /mcL ----ADDITIONAL INFORMATION---- This test has been modified from the electrogalvanizing machine operator's instructions. Its performance characteristics were determined by [facility] in a manner consistent with CLIA requirements. This test has not been cleared or approved by the U.S. Food and Drug Administration. Neutrophils 1 % 10/08/2023 12:51 PM MANAGER DATA WAREHOUSE DHPM Comment: ----REFERENCE VALUE---- Synovial: <25% Peritoneal: <25% Pleural: <25% Pericardial: <25% Lymphocytes 4 Synovial <75% % 10/08/2023 12:51 PM MANAGER DATA WAREHOUSE DHPM Monocytes/Macropha ges 84 Synovial <70% % 10/08/2023 12:51 PM MANAGER DATA WAREHOUSE DHPM Other Cells 11 % 10/08/2023 12:51 PM MANAGER DATA WAREHOUSE DHPM Comment: ----REFERENCE VALUE---- The reference range and other method performance specifications have not been established for this bodyfluid. The test result must be integrated into the clinical context for interpretation. Other Cells Are: See Comment 10/08/2023 12:51 PM MANAGER DATA WAREHOUSE DHPM Comment:Mesothelial cells Comment See Comment 10/08/2023 12:51 PM MANAGER DATA WAREHOUSE DHPM Comment:No blasts or maligna nt cells seen. Reviewed by: Tech 10/08/2023 12:51 PM MANAGER DATA WAREHOUSE DHPM Fluid (Peritoneal Fluid) 10/08/2023 11:14 AM MANAGER DATA WAREHOUSE 10/08/2023 12:01 PM MANAGER DATA WAREHOUSE Katja Umana M.D. LAB BODY FLUIDS AND STOOLS ORDERABLES Performing Organization Address City/[facility]/ZIP Co de Phone Number [facility] 200 [place] [address], [facility] 200 [place] [address] * Bacterial Culture, Aerobic + Susceptibility (10/08/2023 11:14 AM MANAGER DATA WAREHOUSE) Bacterial Culture, Aerobic + Susc No growth after 5 days of incubation. 10/13/2023 7:58 AM MANAGER DATA WAREHOUSE DTL Fluid (Peritoneal Fluid) 10/08/2023 11:14 AM MANAGER DATA WAREHOUSE 10/08/2023 2:23 PM MANAGER DATA WAREHOUSE Comment:Specimen Source Site : Fluid Narrative [facility] - 10/13/2023 7:58 AM MANAGER DATA WAREHOUSE Bacterial Culture: Received Bactec aerobic and Bactec anaerobic bottles Katja Umana M.D. LAB MICROBIOLOGY - G ENERAL ORDERABLES Performing Organization Address [facility] Co de Phone Number [facility] 200 [place] [address], [facility] 200 [place] [address] documented in this encounter Visit Diagnoses Diagnosis [...] administer +++ New Bag 10/08/2023 12:23 PM MANAGER DATA WAREHOUSE 25 g albumin human 25 % injection Continuous Infusion: Per Instructions PRN, Starting on Wed10/08/23 at 1137, Intra-Op New Bag 10/08/2023 11:37 AM MANAGER DATA WAREHOUSE 25 g lidocaine 10 mg/mL (1 %) injection (XYLOCAINE) As needed, Starting on Wed10/08/23 at 1119, Intra-Op Given 10/08/2023 11:19 AM MANAGER DATA WAREHOUSE 10 mL documented in this encounter Active and Recently Administered Medications Times are shown in MANAGER DATA WAREHOUSE. Scheduled Medication Order 10/06/2023 10/07/2023 10/08/2023 albumin [...]
--- OUTSIDE RECORDS SUMMARY | 2023-12-28 07:58 | XMS_ITS | Encounter Summary ---
Author Name Unknown Organization [facility] Address [address] [place] [address] Care Team Providers Care Java Sybase Developer Name Role Phone Unavailable Primary Care Provider Unavailabl e Reason for Referral * Outpatient (Routine) - Closed Specialty Diagnoses / Procedures Referred By Delgadoac t Referred To Contact Diagnoses Ascites Procedures US Paracentesis with Imaging Guidance Felipe Morales M.D. [address] [place] [address] [facility] Referral ID Status Reason Start Date Expiration Date Visits Re quested Visits Authorized [id number] Closed 10/11/2023 10/10/2024 1 1 SITTER * Outpatient (Routine) - Closed Specialty Diagnoses / Procedures Referred By Dotty oakes Referred To Contact Diagnoses Ascites Procedures US Paracentesis with Imaging Guidance Felipe Morales M.D. [address] [place] [address] [facility] Referral ID Status Reason Start Date Expiration Date Visits Re quested Visits Authorized [id number] Closed 10/11/2023 10/10/2024 1 1 SITTER Reason for Visit * Reason Onset Date Comments Hepatobiliary 10/08/2023 Ascites elijah Encounter Details Date Type Department Care Team (Latest Contact Info) Description 10/08/2023 Clinical Communication Division of Gastroenterology in [place], [place] [address] [place] [address] Felipe Morales M.D. [address] [place] [address] Hepatobiliary (Ascites elijah) Social History Tobacco Use Types Packs/Day Years Used Date Smoking Tobacco: Every Day Cigarettes 0.5 40 Smokeless Tobacco: Never Alcohol Use Standard Drinks/Week Comments Not Currently 0 (1 standard drink = 0.6 oz pur e alcohol) [facility] Utilities Answer Date Recorded In the past 12 months has e [employer], gas, oil, or water [employer] threatened to shut off services in your [...] Date Recorded Employment status Working with temporary [employer] tions 10/15/2023 Housing Stability Answer Date Recorded What is your living situation today? I have a [facility] place to live 10/15/2023 Sex and Gender Information Value Date Recorded Sex Assigned at Female 10/06/2023 10:50 AM CAT SITTER Gender Identity Female 10/06/2023 10:50 AM CAT SITTER Sexual Orientation Straight 10/06/2023 10 :50 AM CAT SITTER documented as of this encounter Plan of Treatment Upcoming Encounters Date Type Department Care Team (Late st Contact Info) Description 01/19/2024 10:00 AM CDT Telemedicine Department of Nutrition and Diabetes Education in [place], [place] [address] [place] [address] Katja Umana M.D. [address] [place] [address] Taty Cunningham M.S., RDN, LD [address] [place] [address] documented as of this encounter Results * US Paracentesis with Imaging Guidance (11/19/2023 11:55 AM CAT SITTER) Anatomical Region Laterality Modality Abdomen, Ultrasound RST LOS, Ultrasound ARZ LOS, Procedure FLA LOS, Abdominal FLA LOS, Procedural, Procedural NWWI LOS N/A Ultrasound Impressions 11/19/2023 12:26 PM CAT SITTER Ultrasound-guided paracentesis. EP Narrative 11/19/2023 12:26 PM CAT SITTER EXAM: US PARACENTESIS WITH IMAGING GUIDANCE PRE-PROCEDURE: [...] Paracentesis with Imaging Guidance (11/05/2023 11:25 AM CAT SITTER) Anatomical Region Laterality Modality Abdomen, Ultrasound RST LOS, Ultrasound ARZ LOS, Procedure FLA LOS, Abdominal FLA LOS, Procedural, Procedural NWWI LOS N/A Ultrasound Impressions 11/05/2023 11:28 AM CAT SITTER Ultrasound-guided diagnostic and therapeutic paracentesis. NR Narrative 11/05/2023 11:28 AM CAT SITTER EXAM: US PARACENTESIS WITH IMAGING GUIDANCE PRE-PROCEDURE: [...] lower quadrant peritoneal space. Needle size: 5 Bhutanese centesis catheter. Volume aspirated: 6.8 liters aspirated, [...] lower quadrant peritoneal space. Needle size: 5 Bhutanese centesis catheter. Volume aspirated: 6.8 liters aspirated, [...] and therapeutic paracentesis. NR Felipe Morales M.D. IMG US PROCEDURES documented in this encounter Visit Diagnoses Diagnosis Ascites- Primary Ascites Ascites documented in this encounter
--- OUTSIDE RECORDS SUMMARY | 2023-12-28 07:58 | XMS_ITS | Encounter Summary ---
Author Name Unknown Organization [facility] Address [address] [place] [address] Care Team Providers Care Lard Renderer Name Role Phone Unavailable Primary Care Provider Unavailabl e Encounter Details Date Type Department Care Team (Late st Contact Info) Description 10/09/2023 Documentation Division of Gastroenterology in [place], [place] [address] [place] [phone] Joy Rudd M.B.B.S. [address] [place] [address] Social History Tobacco Use Types Packs/Day Years [...] Sex Assigned at Female 10/06/2023 10:50 AM TECHNICAL WRITER Gender Identity Female 10/06/2023 10:50 AM TECHNICAL WRITER Sexual Orientation Straight 10/06/2023 10 :50 AM TECHNICAL WRITER documented as of this encounter Progress Notes [...] signed by: Vielka CanelaSPetros 10/09/23 4:28 PM TECHNICAL WRITER NICAL WRITER documented in this encounter Plan of Treatment Upcoming Encounters Date Type Department Care Team (Late st Contact Info) Description 01/19/2024 10:00 AM CDT Telemedicine Department of Nutrition and Diabetes Education in [place], [place] [address] [place] [phone] Katja Umana M.D. [address] [place] [phone] Taty Cunningham M.S., RDN, LD [address] [place] [phone] documented as of this encounter Visit Diagnoses Not on filedocumented in this encounter
--- OUTSIDE RECORDS SUMMARY | 2023-12-28 07:58 | XMS_ITS | Encounter Summary ---
Author Name Unknown Organization [facility] Address [address] [place] [address] Care Team Providers Care Blade Grader Operator Name Role Phone Unavailable Primary Care Provider Unavailabl e Encounter Details Date Type Department Care Team (Latest Contact Info) Description 10/24/2023 Clinical Communication Division of Gastroenterology in [place], [place] [address] [place] [phone] Katja Aguilera M.D. [address] [place] [phone] Social History Tobacco Use Types Packs/Day Years [...] your living situation today? I have a [facility] place to live 10/15/2023 Sex and Gender Information Value Date Recorded Sex Assigned at Female 10/06/2023 10:50 AM SALES AND DISTRIBUTION CLERK Gender Identity Female 10/06/2023 10:50 AM SALES AND DISTRIBUTION CLERK Sexual Orientation Straight 10/06/2023 10 :50 AM SALES AND DISTRIBUTION CLERK documented as of this encounter Progress Notes [...] I have sent an order to her [facility] Rajiv Taylor. She also reports ongoing difficulty with sleep, despite taking melatonin 10 mg nig htly. We will initiate trazodone at low dose, with 50 mg nightly. She was in agreement with the plan. S AND DISTRIBUTION CLERK documented in this encounter Miscellaneous Notes * Addendum Note - Katja Aguilera M.D. - 10/24/2023 11:17 AM CSTAddended by: KATJA AGUILERA on: 10/24/2023 11:17 AM Modules accepted: Orders S AND DISTRIBUTION CLERK documented in this encounter Plan of Treatment Upcoming Encounters Date Type Department Care Team (Late st Contact Info) Description 01/19/2024 10:00 AM CDT Telemedicine Department of Nutrition and Diabetes Education in [place], [place] [address] [place] [phone] Katja Aguilera M.D. [address] [place] [phone] Taty Cunningham M.S., RDN, LD [address] [place] [phone] documented as of this encounter Results * (ABNORMAL) Basic Metabolic Panel (10/27/2023 10:33 AM SALES AND DISTRIBUTION CLERK) Potassium, P 3.6 3.6 - 5.2 mmol/L 10/27/2023 10:57 AM SALES AND DISTRIBUTION CLERK CNFL Sodium, P 125(L) 135 - 145 mmol/L 10/27/2023 10:57 AM SALES AND DISTRIBUTION CLERK CNFL Chloride, P 92(L) 98 - 107 mmol/L 10/27/2023 10:57 AM SALES AND DISTRIBUTION CLERK CNFL Bicarbonate, P 21(L) 22 - 29 mmol/L 10/27/2023 10:57 AM SALES AND DISTRIBUTION CLERK CNFL Anion Gap, P 12 7 - 15 10/27/2023 10:57 AM SALES AND DISTRIBUTION CLERK CNFL BUN (Blood Urea Nitrogen), P 10 6 - 21 mg/dL 10/27/2023 10:57 AM SALES AND DISTRIBUTION CLERK CNFL Creatinine 0.47(L) 0.59 - 1.04 mg/dL 10/27/2023 10:57 AM SALES AND DISTRIBUTION CLERK CNFL Estimated GFR (eGFR) >90 >=60 mL/min/BSA 10/27/2023 10:57 AM SALES AND DISTRIBUTION CLERK CNFL Comment: Estimated GFR calculated using the 2020 CKD_EPI creatinine equation. Calcium, Total, P 8.4(L) 8.8 - 10.2 mg/dL 10/27/2023 10:57 AM SALES AND DISTRIBUTION CLERK CNFL Glucose, P 93 70 - 140 mg/dL 10/27/2023 10:57 AM SALES AND DISTRIBUTION CLERK CNFL Blood (Blood, Venous) 10/27/2023 10:33 AM SALES AND DISTRIBUTION CLERK 10/27/2023 10:36 AM SALES AND DISTRIBUTION CLERK Katja Aguilera M.D. LAB BLOOD ADD-ON [facility] [address] [place], [place] [phone], [facility] [place] CNFL [facility] in [address] [address] documented in this encounter Visit Diagnoses Diagnosis Alcoholic Cirrhosis Of Liver With Ascites (HCC)- Primary documented in this encounter Additional Health Concerns Assessment Noted Time PHQ-9 Depression Total Score: 3 10/20/19 24 7:30 AM SALES AND DISTRIBUTION CLERK documented as of this encounter
--- OUTSIDE RECORDS SUMMARY | 2023-12-28 07:58 | XMS_ITS | Encounter Summary ---
Author Name Unknown Organization [facility] Address [address] [place] [address] Care Team Providers Care Supervisor Hand Workers Name Role Phone Unavailable Primary Care Provider Unavailabl e Reason for Referral * Outpatient (Routine) - Closed Specialty Diagnoses / Procedures Referred By Contac t Referred To Contact Diagnoses Ascites Procedures US Paracentesis with Imaging Guidance Katja Umana M.D. 200 [place] [phone] [facility] Referral ID Status Reason Start Date Expiration Date Visits Re quested Visits Authorized [id number] Closed 10/18/2023 10/17/2024 1 1 NDER Reason for Visit * Auth/Cert (Routine) Specialty Diagnoses / Procedures Referred By Contac t Referred To Contact Diagnoses Ascites Procedures US PARACENTESIS WITH IMAGING GUIDANCE Referral ID Status Reason Start Date Expiration Date Visits Re quested Visits Authorized [id number] 1 1 Encounter Details Date Type Department Care Team (Latest Contact Info) Description 10/22/2023 7:27 AM REWINDER - 10/22/2023 3:44 PM REWINDER Hospital Encounter Department of Radiology, [facility], in [place], [place] [address] [place] [address] Katja Umana M.D. [address] [place] [phone] Ascites Discharge Disposition: Home or Self Care [...] your living situation today? I have a [facility] place to live 10/15/2023 Sex and Gender Information Value Date Recorded Sex Assigned at Female 10/06/2023 10:50 AM REWINDER Gender Identity Female 10/06/2023 10:50 AM REWINDER Sexual Orientation Straight 10/06/2023 10 :50 AM REWINDER documented as of this encounter Last Filed Vital Signs Vital Sign Reading Time Taken Comments Blood Pressure 116/58 10/22/2023 10:10 AM REWINDER Pulse 102 10/22/2023 10:10 AM REWINDER Temperature - - Respiratory Rate - - Oxygen Saturation 100% 10/22/2023 10:10 AM REWINDER Inhaled Oxygen Concentration - - Weight - [...] 3 (three) times a day. 09/21/2023 10/24/2023 spironolactone (ALDACTONE) 50 mg tablet Take 1 tablet (50 mg total) by mouth daily. 30 tablet 10/15/2023 10/24/2023 documented as of this encounter Plan of Treatment Upcoming Encounters Date Type Department Care Team (Late st Contact Info) Description 01/19/2024 10:00 AM CDT Telemedicine Department of Nutrition and Diabetes Education in [place], [place] [address] [place] [phone] Katja Umana M.D. [address] [place] [phone] Taty Cunningham M.S., RDN, LD [address] [place] [phone] documented as of this encounter Procedures Procedure Name Priority Date/Time Associated Diagnosis Comments US PARACENTESIS WITH IMAGING GUIDANCE RAD - Routine (most inpatients and all outpatients) 10/22/2023 10:18 AM REWINDER Ascites BACTERIAL CULTURE, AEROBIC + SUSC Timed 10/22/2023 8:54 AM REWINDER Ascites CELL COUNT AND DIFFERENTIAL, BF Timed 10/22/2023 8:54 AM REWINDER Ascites documented in this encounter Results * US Paracentesis with Imaging Guidance (10/22/2023 10:18 AM REWINDER) Anatomical Region Laterality Modality Abdomen, Ultrasound RST LOS, Ultrasound ARZ LOS, Procedure FLA LOS, Abdominal FLA LOS, Procedural, Procedural NWWI LOS N/A Ultrasound Impressions 10/22/2023 10:26 AM REWINDER Ultrasound-guided diagnostic and therapeutic paracentesis. NR Narrative 10/22/2023 10:26 AM REWINDER EXAM: US PARACENTESIS WITH IMAGING GUIDANCE PRE-PROCEDURE: [...] and Differential, Body Fluid (10/22/2023 8:54 AM REWINDER) Fluid Type Peritoneal /Paracente sis 10/22/2023 10:30 AM REWINDER DHPM Gross Appearance Serous 10/22/19 10:30 AM REWINDER DHPM Total Nucleated Cells 171 /mcL 10/22/2023 10:30 AM REWINDER DHPM Comment: ----REFERENCE VALUE---- Synovial: <150 /mcL Peritoneal: <500 /mcL Pleural: <500 /mcL Pericardial: <500 /mcL ----ADDITIONAL INFORMATION---- This test has been modified from the stroke program coordinator's instructions. Its performance characteristics were determined by [facility] in a manner consistent with CLIA requirements. This test has not been cleared or approved by the U.S. Food and Drug Administration. Neutrophils 2 % 10/22/2023 11:42 AM REWINDER DHPM Comment: ----REFERENCE VALUE---- Synovial: <25% Peritoneal: <25% Pleural: <25% Pericardial: <25% Lymphocytes 14 Synovial <75% % 10/22/2023 11:42 AM REWINDER DHPM Monocytes/Macropha ges 70 Synovial <70% % 10/22/2023 11:42 AM REWINDER DHPM Other Cells 14 % 10/22/2023 11:42 AM REWINDER DHPM Comment: ----REFERENCE VALUE---- The reference range and other method performance specifications have not been established for this bodyfluid. The test result must be integrated into the clinical context for interpretation. Other Cells Are: See Comment 10/22/2023 11:42 AM REWINDER DHPM Comment:Mesothelial cells Comment See Comment 10/22/2023 11:42 AM REWINDER DHPM Comment:No blasts or maligna nt cells seen. Reviewed by: Tech 10/22/2023 11:42 AM REWINDER [facility] Fluid (Peritoneal Fluid) 10/22/2023 8:54 AM REWINDER Narrative Authorizing Provider Result Enio Morales M.D. LAB BODY FLUIDS AND STOOLS ORDERABLES Performing Organization Address [facility]/ZIP Co de Phone Number [facility] [address] [place] [address], [facility] 200 [place] [address] * Bacterial Culture, Aerobic + Susceptibility (10/22/2023 8:54 AM REWINDER) Bacterial Culture, Aerobic + Susc No growth after 5 days of incubation. 10/27/2023 11:39 AM REWINDER DTL Fluid (Peritoneal Fluid) 10/22/2023 8:54 AM REWINDER Narrative [facility] - 10/27/2023 11:39 AM REWINDER Bacterial Culture: Placed in Bactec anaerobic bottle Bacterial Culture: Received Bactec aerobic bottle Felipe Morales M.D. LAB MICROBIOLOGY - GENERAL ORDERABLES Performing Organization Address [facility] Co de Phone Number [facility] [address] [place] [address], [facility] [address] [place] [address] documented in this encounter Visit Diagnoses Diagnosis [...] provider's discretion) New Bag 10/22/2023 9:07 AM REWINDER 25 g albumin human 25 % injection [...] provider's discretion) New Bag 10/22/2023 9:31 AM REWINDER 25 g lidocaine 10 mg/mL (1 %) injection (XYLOCAINE) As needed, Starting on Wed10/22/23 at 0858, Intra-Op Given 10/22/2023 8:58 AM REWINDER 10 mL Right Upper Abdomen documented in this encounter Active and Recently Administered Medications Times are shown in REWINDER. Scheduled Medication Order 10/20/2023 10/21/2023 10/22/2023 albumin [...] (New Bag - Prov ider: Meagan Turk RPetrosNPetros)1016 (Stopped - Provider: Brent Hartley R.N.) PRN Medication Order 10/20/2023 10/21/2023 10/22/2023 lidocaine 10 mg/mL (1 %) injection (XYLOCAINE) (COMPLETED) As needed, Starting on Wed10/22/23 at 0858, Intra-Op 0858 (Given - Provid er: Felipe Da Silva M.D.) documented in this encounter Additional Health Concerns Assessment Noted Time PHQ-9 Depression Total Score: 3 10/20/19 24 7:30 AM REWINDER documented as of this encounter
--- OUTSIDE RECORDS SUMMARY | 2023-12-28 07:58 | XMS_ITS | Encounter Summary ---
Author Name Unknown Organization [facility] Address [address] [place] [address] Care Team Providers Care Solids Control Technician Name Role Phone Unavailable Primary Care Provider Unavailabl e Reason for Referral * Behavioral Health (Routine) - Closed Specialty Diagnoses / Procedures Referred By Contac t Referred To Contact Psychiatry / Psychiatry and Psychology Diagnoses Alcoholic Cirrhosis Of Liver With Ascites (HCC) Katja Umana M.D. [address] [place] [phone] [facility] Referral ID Status Reason Start Date Expiration Date Visits Re quested Visits Authorized [id number] Closed 10/15/2023 04/15/2025 1 1 ACY ATTORNEY * Outpatient (Routine) - Authorized Specialty Diagnoses / Procedures Referred By Contac t Referred To Contact Diagnoses Alcoholic Cirrhosis Of Liver With Ascites (HCC) Esophageal Varices Without Bleeding (HCC) Procedures EGD (EsophagoGastroDuodenoscopy) Restricted Katja Umana M.D. 200 [place] [phone] [facility] Referral ID Status Reason Start Date Expiration Date V isits Requested Visits Authorized [id number] Authorized 10/15/2023 10/14/2024 1 1 ACY ATTORNEY * Outpatient (Routine) - Closed Specialty Diagnoses / Procedures Referred By Contac t Referred To Contact Preventive Medicine Diagnoses Alcoholic Cirrhosis Of Liver With Ascites (HCC) Katja Umana M.D. [address] [place] [phone] [facility] Referral ID Status Reason Start Date Expiration Date Visits Re quested Visits Authorized [id number] Closed 10/15/2023 04/15/2025 1 1 ACY ATTORNEY Reason for Visit * Outpatient (Routine) - Closed Specialty Diagnoses / Procedures Referred By Contact Referred To Contact Gastroenterology and Hepatology Katja Umana M.D. [address] [place] [phone] Katja Umana M.D. [address] [place] [phone] Referral ID Status Reason Start Date Expiration Date Visits Re quested Visits Authorized [id number] Closed 10/13/2023 04/13/2025 1 1 Encounter Details Date Type Department Care Team (Latest Contact Info) Description 10/15/2023 10:40 AM PRIVACY ATTORNEY Telemedicine Division of Gastroenterology in [place], [place] [address] [place] [phone] Katja Umana M.D. [address] [place] [phone] Ascites (Primary Dx); Alcoholic Cirrhosis Of Liver [...] Recorded In the past 12 months has [employer], gas, oil, or water [employer] threatened to shut off services in your [...] Date Recorded Employment status Working with temporary [employer] 10/15/2023 Housing Stability Answer Date Recorded What is your living situation today? I have a [facility] place to live 10/15/2023 Sex and Gender Information Value Date Recorded Sex Assigned at Female 10/06/2023 10:50 AM PRIVACY ATTORNEY Gender Identity Female 10/06/2023 10:50 AM PRIVACY ATTORNEY Sexual Orientation Straight 10/06/2023 10 :50 AM PRIVACY ATTORNEY documented as of this encounter Progress Notes * Katja Umana M.D. - 10/15/2023 10:40 AM CST GASTROENTEROLOGY & HEPATOBILIARY CLINIC FOLLOW-UP NOTE Patient Name: Monique Redmond Date of Service: 10/15/2023 SUBJECTIVE This patient was virtually interviewed via real time video in the patient's home by Katja Umana M.D. at [facility]. The history and findings below are based [...] I have sent an order [facility] She has met with our HB [...] last colonoscopy was performed in 2019 in [place]. I am not able to see this report. She is recommended to follow-up with her PCP for completing surveillance colonoscopy. If she is not able tocomplete this locally, then we can arrange for this to be done at [facility]. [facility] Health maintenance She has evidence of [...] with local provider(s). Katja Umana M.D. 10/15/2023 ACY ATTORNEY documented in this encounter Plan of Treatment Upcoming Encounters Date Type Department Care Team (Late st Contact Info) Description 01/19/2024 10:00 AM CDT Telemedicine Department of Nutrition and Diabetes Education in [place], [place] [address] [place] [phone] Katja Umana M.D. [address] [place] [phone] Taty Cunningham M.S., RDN, LD [address] [place] [phone] Scheduled Orders Name Type Priority Associated Diagnoses [...] (ABNORMAL) Basic Metabolic Panel (10/20/2023 1:08 PM PRIVACY ATTORNEY) Potassium, P 4.5 3.6 - 5.2 mmol/L 10/20/2023 1:30 PM PRIVACY ATTORNEY CNFL Sodium, P 126(L) 135 - 145 mmol/L 10/20/2023 1:30 PM PRIVACY ATTORNEY CNFL Chloride, P 97(L) 98 - 107 mmol/L 10/20/2023 1:30 PM PRIVACY ATTORNEY CNFL Bicarbonate, P 23 22 - 29 mmol/L 10/20/2023 1:30 PM PRIVACY ATTORNEY CNFL Anion Gap, P 6(L) 7 - 15 10/20/2023 1:30 PM PRIVACY ATTORNEY CNFL BUN (Blood Urea Nitrogen), P 7 6 - 21 mg/dL 10/20/2023 1:30 PM PRIVACY ATTORNEY CNFL Creatinine 0.37(L) 0.59 - 1.04 mg/dL 10/20/2023 1:30 PM PRIVACY ATTORNEY CNFL Estimated GFR (eGFR) >90 >=60 mL/min/BSA 10/20/2023 1:30 PM PRIVACY ATTORNEY CNFL Comment: Estimated GFR calculated using the 2020 CKD_EPI creatinine equation. Calcium, Total, P 8.2(L) 8.8 - 10.2 mg/dL 10/20/2023 1:30 PM PRIVACY ATTORNEY CNFL Glucose, P 112 70 - 140 mg/dL 10/20/2023 1:30 PM PRIVACY ATTORNEY CNFL Blood (Blood, Venous) 10/20/2023 1:08 PM PRIVACY ATTORNEY 10/20/2023 1:09 PM PRIVACY ATTORNEY Katja Umana M.D. LAB BLOOD ADD-ON [facility] [address] [place] [phone], [facility] CNFL [facility] in [address] [address] documented in this encounter Visit Diagnoses Diagnosis Ascites- Primary Alcoholic Cirrhosis Of Liver With Ascites (HCC) Esophageal Varices Without Bleeding (HCC) documented in this encounter
--- OUTSIDE RECORDS SUMMARY | 2023-12-28 07:58 | XMS_ITS | Encounter Summary ---
Author Name Unknown Organization [facility] Address [address] [place] [address] Care Team Providers Care Gate Manager Name Role Phone Unavailable Primary Care Provider Unavailabl e Encounter Details Date Type Department Care Team (Latest Contact Info) Description 10/08/2023 3:19 PM EDUCATIONAL TECHNOLOGY SPECIALIST Anesthesia Event Division of Gastroenterology in [place], [place] [address] [place] [phone] Jeffy Moy APRN, JAGUAR [address] [place] [phone] Joshua Beverly M.D. [address] [place] [phone] Anesthesia Record Procedure Summary Procedure Name Responsible [...] Sex Assigned at Female 10/06/2023 10:50 AM EDUCATIONAL TECHNOLOGY SPECIALIST Gender Identity Female 10/06/2023 10:50 AM EDUCATIONAL TECHNOLOGY SPECIALIST Sexual Orientation Straight 10/06/2023 10 :50 AM EDUCATIONAL TECHNOLOGY SPECIALIST documented as of this encounter OR Notes * Anesthesia Postprocedure Evaluation - Jeffy Moy APRN, JAGUAR - 10/08/2023 3:50 PM CST Patient: Monique Redmond Procedure Summary Date: 10/08/23 Room / Location: Division of Gastroenterology in [place], [place] Anesthesia Start: 151 Anesthesia Stop: 1550 [...] Post Op nausea/vomiting: none Hydration status: euvolemic ATIONAL TECHNOLOGY SPECIALIST * Anesthesia Preprocedure Evaluation - Jeffy Moy APRN, CRNA - 10/08/2023 3:34 PM CST Preprocedure Anesthesia & H&P Assessment Procedure Summary Anesthesia Start Date/Time: 10/08/231518 Scheduled providers: Gaviota Kamara APRN, CRNA Procedure: EGD (ESOPHAGOGASTRODUODENOSCOPY) RESTRICTED Diagnosis: Alcoholic Cirrhosis Of Liver With Ascites (HCC) [K70.31] Alcoholic Cirrhosis Of Liver With Ascites (HCC) [K70.31] Location: Division of Gastroenterology in [place], [place] Pertinent components of the patient's history [...] with patient /legal guardian or through an translator and interpreter. Risks/Benefits/Alternatives of Blood transfusion discussed with patient / legal guardian, includingan opportunity to ask questions and/or decline some or all transfusion therapies. The patient / legal guardian consented to the use of all blood products, as deemed medically necessary Approval to Proceed: approved for anesthesia ATIONAL TECHNOLOGY SPECIALIST documented in this encounter Plan of Treatment Upcoming Encounters Date Type Department Care Team (Late st Contact Info) Description 01/19/2024 10:00 AM CDT Telemedicine Department of Nutrition and Diabetes Education in [place], [place] [address] [place] [phone] Katja Umana M.D. [address] [place] [phone] Taty Cunningham M.SPetros, RDN, LD [address] [place] [address] [phone] documented as of this encounter Visit Diagnoses Not on filedocumented in this encounter Administered Medications Inactive Administered Medications - up to 3 most recent administrations Medication Order MAR Action Action Date Dose Rate Site fentaNYL injection (SUBLIMAZE) intravenous, As needed, Starting on Wed10/08/23 at 1530, Anesthesia Intra-op Given 10/08/2023 3:30 PM EDUCATIONAL TECHNOLOGY SPECIALIST 25 mcg Lactated Ringer's intravenous, Continuous Infusion: Per Instructions PRN, Starting on Wed10/08/23 at 1523, Anesthesia Intra-op New Bag 10/08/2023 3:23 PM EDUCATIONAL TECHNOLOGY SPECIALIST lidocaine (PF) (cardiac) injection intravenous, As needed, Starting on Wed10/08/23 at 1523, Anesthesia Intra-op Given 10/08/2023 3:23 PM EDUCATIONAL TECHNOLOGY SPECIALIST 60 mg ondansetron (PF) injection (ZOFRAN) intravenous, As needed, Starting on Wed10/08/23 at 1523, Anesthesia Intra-op Given 10/08/2023 3:23 PM EDUCATIONAL TECHNOLOGY SPECIALIST 4 mg propofol 10 mg/mL infusion (DIPRIVAN) intravenous, Continuous Infusion: Per Instructions PRN, Starting on Wed10/08/23 at 1523, Anesthesia Intra-op New Bag 10/08/2023 3:23 PM EDUCATIONAL TECHNOLOGY SPECIALIST 150 mcg/kg/min 51.48 mL/hr propofoL injection (DIPRIVAN) intravenous, As needed, Starting on Wed10/08/23 at 1524, Anesthesia Intra-op Given 10/08/2023 3:26 PM EDUCATIONAL TECHNOLOGY SPECIALIST 20 mg Given 10/08/2023 3:24 PM EDUCATIONAL TECHNOLOGY SPECIALIST 20 mg documented in this encounter
--- OUTSIDE RECORDS SUMMARY | 2023-12-28 07:58 | XMS_ITS | Encounter Summary ---
Author Name Unknown Organization [facility] Address [address] [place] [address] Care Team Providers Care Verifier Name Role Phone Unavailable Primary Care Provider Unavailabl e Reason for Visit * Reason Onset Date Comments NDC Med Request 10/28/2023 Encounter Details Date Type Department Care Team (Latest Contact Info) Description 10/28/2023 Clinical Communication Department of Nicotine Dependence, [facility], in [place], [place] [address] [place] [phone] Sudha Bernstein M.A., L.I.C.S.W., M.S.W. [address] [place] [phone] NDC Med Request Social History Tobacco Use Types Packs/Day Years Used Date Smoking Tobacco: Every Day Cigarettes 0.5 40 Smokeless Tobacco: Never Alcohol Use Standard Drinks/Week Comments Not Currently 0 (1 standard drink = 0.6 oz pur e alcohol) [facility] Utilities Answer Date Recorded In the past 12 months has [employer], gas, oil, or water [employer] threatened to shut off services in your [...] Date Recorded Employment status Working with temporary [employer] 10/15/2023 Housing Stability Answer Date Recorded What is your living situation today? I have a [facility] place to live 10/15/2023 Sex and Gender Information Value Date Recorded Sex Assigned at Female 10/06/2023 10:50 AM COLOR CARD MAKER Gender Identity Female 10/06/2023 10:50 AM COLOR CARD MAKER Sexual Orientation Straight 10/06/2023 10 :50 AM COLOR CARD MAKER documented as of this encounter Miscellaneous Notes * Addendum Note - Raisa Hunt M.D. - 10/28/2023 5:01 PM CSTAddended by: RAISA HUNT on: 10/28/2023 05:01 PM Modules accepted: Orders R CARD MAKER * Telephone Encounter - Sudha Bernstein M.A., L.I.C.S.W., M.S.W. - 10/28/2023 11:[address] Hunt, this patient is interested in having a prescription for Varenicline and nicotine lozenges sent to [facility] in [place], [place] for smoking cessation if appropriate based on your review of her medical record. Varenicline Starter Pack with refills 2 mg nicotine lozenges Thank you. R CARD MAKER documented in this encounter Plan of Treatment Upcoming Encounters Date Type Department Care Team (Late st Contact Info) Description 01/19/2024 10:00 AM CDT Telemedicine Department of Nutrition and Diabetes Education in [place], [place] [address] [place] [phone] Katja Umana M.D. [address] [place] [phone] Taty Cunningham M.S., RDN, LD [address] [place] [address] [phone] documented as of this encounter Visit Diagnoses Diagnosis Nicotine Dependence Cigarettes- Primary documented in this encounter Additional Health Concerns Assessment Noted Time PHQ-9 Depression Total Score: 3 10/20/19 24 7:30 AM COLOR CARD MAKER documented as of this encounter
--- OUTSIDE RECORDS SUMMARY | 2023-12-28 07:58 | XMS_ITS | Encounter Summary ---
Author Name Unknown Organization [facility] Address [address] [place] [address] Care Team Providers Care Bdr Name Role Phone Unavailable Primary Care Provider Unavailabl e Reason for Referral * Outpatient (Routine) - Closed Specialty Diagnoses / Procedures Referred By Dotty oakes Referred To Contact Diagnoses Ascites Procedures US Paracentesis with Imaging Guidance Katja Umana M.D. [address] [place] [phone] [facility] Referral ID Status Reason Start Date Expiration Date Visits Re quested Visits Authorized [id number] Closed 10/18/2023 10/17/2024 1 1 RVISORY CIVIL ENGINEER Encounter Details Date Type Department Care Team (Latest Contact Info) Description 10/18/2023 Clinical Communication Division of Gastroenterology in [place], [place] [address] [place] [phone] Katja Umana M.D. [address] [place] [phone] Social History Tobacco Use Types Packs/Day Years Used Date Smoking Tobacco: Every Day Cigarettes 0.5 40 Smokeless Tobacco: Never Alcohol Use Standard Drinks/Week Comments Not Currently 0 (1 standard drink = 0.6 oz pur e alcohol) [facility] Utilities Answer Date Recorded In [...] your living situation today? [facility] have a [facility] 10/15/2023 Sex and Gender Information Value Date Recorded Sex Assigned at Female 10/06/2023 10:50 AM SUPERVISORY CIVIL ENGINEER Gender Identity Female 10/06/2023 10:50 AM SUPERVISORY CIVIL ENGINEER Sexual Orientation Straight 10/06/2023 10 :50 AM SUPERVISORY CIVIL ENGINEER documented as of this encounter Plan of Treatment Upcoming Encounters Date Type Department Care Team (Late st Contact Info) Description 01/19/2024 10:00 AM CDT Telemedicine Department of Nutrition and Diabetes Education in [place], [place] [address] [place] [phone] Katja Umana M.D. [address] [place] [phone] Taty Cunningham M.S., RDN, LD [address] [place] [phone] documented as of this encounter Results * US Paracentesis with Imaging Guidance (10/22/2023 10:18 AM SUPERVISORY CIVIL ENGINEER) Anatomical Region Laterality Modality Abdomen, Ultrasound RST LOS, Ultrasound ARZ LOS, Procedure FLA LOS, Abdominal FLA LOS, Procedural, Procedural NWWI LOS N/A Ultrasound Impressions 10/22/2023 10:26 AM SUPERVISORY CIVIL ENGINEER Ultrasound-guided diagnostic and therapeutic paracentesis. NR Narrative 10/22/2023 10:26 AM SUPERVISORY CIVIL ENGINEER EXAM: US PARACENTESIS WITH IMAGING GUIDANCE PRE-PROCEDURE: [...] Ultrasound-guided diagnostic and therapeutic paracentesis. NR Katja FOSS US PROCEDURES documented in this encounter Visit Diagnoses Diagnosis Ascites- Primary Ascites documented in this encounter
--- OUTSIDE RECORDS SUMMARY | 2023-12-28 07:58 | XMS_ITS | Encounter Summary ---
Author Name Unknown Organization [facility] Address [address] [place] [address] Care Team Providers Care Events Specialist Name Role Phone Unavailable Primary Care Provider Unavailabl e Encounter Details Date Type Department Care Team (Latest Contact Info) Description 10/20/2023 1:00 PM BOW STRING MAKER - 10/20/2023 11:59 PM BOW STRING MAKER Hospital Encounter Department of Laboratory Medicine in [address] [phone] Katja Umana M.D. [address] [place] [phone] Ascites Discharge Disposition: Home or Self Care Social History Tobacco Use Types Packs/Day Years Used Date Smoking Tobacco: Every Day Cigarettes 0.5 40 Smokeless Tobacco: Never Alcohol Use Standard Drinks/Week Comments Not Currently 0 (1 standard drink = 0.6 oz pur e alcohol) [facility] Utilities Answer Date Recorded In the past 12 months has [employer], gas, oil, or water [employer] threatened to shut off services in your [...] Date Recorded Employment status Working with temporary [employer] 10/15/2023 Housing Stability Answer Date Recorded What is your living situation today? I have a [facility] place to live 10/15/2023 Sex and Gender Information Value Date Recorded Sex Assigned at Female 10/06/2023 10:50 AM BOW STRING MAKER Gender Identity Female 10/06/2023 10:50 AM BOW STRING MAKER Sexual Orientation Straight 10/06/2023 10 :50 AM BOW STRING MAKER documented as of this encounter Medications at [...] Department of Nutrition and Diabetes Education in [place], [place] [address] [place] [phone] Katja Umana M.D. [address] [place] [phone] Taty Cunningham M.S., RDN, LD [address] [place] [phone] documented as of this encounter Procedures Procedure Name Priority Date/Time Associated Diagnosis Comments BASIC METABOLIC PANEL, S/P Routine 10/20/2023 1:08 PM BOW STRING MAKER Ascites documented in this encounter Results * (ABNORMAL) Basic Metabolic Panel (10/20/2023 1:08 PM BOW STRING MAKER) Potassium, P 4.5 3.6 - 5.2 mmol/L 10/20/2023 1:30 PM BOW STRING MAKER CNFL Sodium, P 126(L) 135 - 145 mmol/L 10/20/2023 1:30 PM BOW STRING MAKER CNFL Chloride, P 97(L) 98 - 107 mmol/L 10/20/2023 1:30 PM BOW STRING MAKER CNFL Bicarbonate, P 23 22 - 29 mmol/L 10/20/2023 1:30 PM BOW STRING MAKER CNFL Anion Gap, P 6(L) 7 - 15 10/20/2023 1:30 PM BOW STRING MAKER CNFL BUN (Blood Urea Nitrogen), P 7 6 - 21 mg/dL 10/20/2023 1:30 PM BOW STRING MAKER CNFL Creatinine 0.37(L) 0.59 - 1.04 mg/dL 10/20/2023 1:30 PM BOW STRING MAKER CNFL Estimated GFR (eGFR) >90 >=60 mL/min/BSA 10/20/2023 1:30 PM BOW STRING MAKER CNFL Comment: Estimated GFR calculated using the 2020 CKD_EPI creatinine equation. Calcium, Total, P 8.2(L) 8.8 - 10.2 mg/dL 10/20/2023 1:30 PM BOW STRING MAKER CNFL Glucose, P 112 70 - 140 mg/dL 10/20/2023 1:30 PM BOW STRING MAKER CNFL Blood (Blood, Venous) 10/20/2023 1:08 PM BOW STRING MAKER 10/20/2023 1:09 PM BOW STRING MAKER Katja Umana M.D. LAB BLOOD ADD-ON [facility] [address] [place] [id number], [facility] [address] [address] documented in this encounter Visit Diagnoses Diagnosis Ascites documented in this encounter Additional Health Concerns Assessment Noted Time PHQ-9 Depression Total Score: 3 10/20/19 24 7:30 AM BOW STRING MAKER documented as of this encounter
--- OUTSIDE RECORDS SUMMARY | 2023-12-28 07:58 | XMS_ITS | Encounter Summary ---
Author Name Unknown Organization [facility] Address [address] [place] [address] Care Team Providers Care Restorative Art Embalmer Name Role Phone Unavailable Primary Care Provider Unavailabl e Encounter Details Date Type Department Care Team (Latest Contact Info) Description 10/08/2023 3:20 PM RN AMBULATORY Ancillary Procedure Department of Gastroenterology Social History [...] Sex Assigned at Female 10/06/2023 10:50 AM RN AMBULATORY Gender Identity Female 10/06/2023 10:50 AM RN AMBULATORY Sexual Orientation Straight 10/06/2023 10 :50 AM RN AMBULATORY documented as of this encounter Plan of Treatment Upcoming Encounters Date Type Department Care Team (Late st Contact Info) Description 01/19/2024 10:00 AM CDT Telemedicine Department of Nutrition and Diabetes Education in [place], [place] [address] [place] [phone] Katja Umana M.D. [address] [place] [phone] Taty Cunningham M.S., RDN, LD [address] [place] [phone] documented as of this encounter Procedures Procedure Name Priority Date/Time Associated Diagnosis Comments GASTROENTEROLOGY IMAGE EXAM Routine 10/08/2023 3:20 PM RN AMBULATORY documented in this encounter Results * Duodenum, Entire examined duodenum Upper GI endoscopy-Gastroenterology Image Exam (10/08/2023 3:20 PM RN AMBULATORY) 10/08/2023 3:17 PM RN AMBULATORY Narrative IIMS - 10/08/2023 3:57 PM RN AMBULATORY This order has been created and auto-finalized to support the import of images acquired without order. The clinical documentation to support these images can be found on the encounter that produced images. Provider Not In System IMG NON RAD IMAGI NG PROCEDURES IIMS NA documented in this encounter Visit Diagnoses Not on filedocumented in this encounter
--- OUTSIDE RECORDS SUMMARY | 2023-12-28 07:58 | XMS_ITS | Encounter Summary ---
Author Name Unknown Organization [facility] Address [address] [place] [address] Care Team Providers Care Communications Senior Associate Name Role Phone Unavailable Primary Care Provider Unavailabl e Reason for Visit * Reason Comments Nicotine Dependence * Outpatient (Routine) - Closed Specialty Diagnoses / Procedures Referred By Contac t Referred To Contact Pulmonary Medicine / Nicotine Dependence Diagnoses Nicotine Dependence Cigarettes Romana Diane M.D., Ph.D. [address] [place] [phone] [facility] Referral ID Status Reason Start Date Expiration Date Visits Re quested Visits Authorized [id number] Closed 10/20/2023 04/20/2025 1 1 Encounter Details Date Type Department Care Team (Late st Contact Info) Description 10/28/2023 11:00 AM CHILDREN'S SERVICE SUPERVISOR Virtual Visit Department of Nicotine Dependence, [facility], in [place], [place] [address] [place] [phone] Romana Diane M.D., Ph.D. [address] [place] [phone] Sudha Bernstein M.A., L.I.C.S.W., M.S.W. [address] [place] [phone] Nicotine Dependence Cigarettes Social History Tobacco Use Types Packs/Day Years Used Date Smoking Tobacco: Every Day Cigarettes 0.5 40 Smokeless Tobacco: Never Alcohol Use Standard Drinks/Week Comments Not Currently 0 (1 standard drink = 0.6 oz pur e alcohol) [facility] Utilities Answer Date Recorded In the past [...] Sex Assigned at Female 10/06/2023 10:50 AM CHILDREN'S SERVICE SUPERVISOR Gender Identity Female 10/06/2023 10:50 AM CHILDREN'S SERVICE SUPERVISOR Sexual Orientation Straight 10/06/2023 10 :50 AM CHILDREN'S SERVICE SUPERVISOR documented as of this encounter Consult Notes [...] this medication being metabolized through the liver [facility] staff would need to discuss the patient's [...] in two weeks. Patient was provided with [facility] educational materials electronically. . Patient is ready to learn, no apparant barriers to learning were identified. Patient understands and agrees with plan. 30 minutes of our visit was spent on tobacco use disorder counseling. Sudha Bernstein M.A., Sony, M.S.W. 10/28/2023 11:33 AM CHILDREN'S SERVICE SUPERVISOR DREN'S SERVICE SUPERVISOR documented in this encounter Plan of Treatment Upcoming Encounters Date Type Department Care Team (Late st Contact Info) Description 01/19/2024 10:00 AM CDT Telemedicine Department of Nutrition and Diabetes Education in [place], [place] [address] [place] [phone] Katja Umana M.D. [address] [place] [phone] Taty Cunningham M.S., RDN, LD [address] [place] [phone] documented as of this encounter Visit Diagnoses Diagnosis Nicotine Dependence Cigarettes documented in this encounter Additional Health Concerns Assessment Noted Time PHQ-9 Depression Total Score: 3 10/20/19 24 7:30 AM CHILDREN'S SERVICE SUPERVISOR documented as of this encounter
--- OUTSIDE RECORDS SUMMARY | 2023-12-28 07:58 | XMS_ITS | Encounter Summary ---
Author Name Unknown Organization [facility] Address [address] [place] [address] Care Team Providers Care Vapor Coater Name Role Phone Unavailable Primary Care Provider Unavailabl e Reason for Visit * Reason Onset Date Comments Follow-up 10/09/2023 Encounter Details Date Type Department Care Team (Late st Contact Info) Description 10/09/2023 Nurse Triage Department of Family Medicine, [address] [phone] Katharine Domínguez R.N. Follow-up Social [...] Sex Assigned at Female 10/06/2023 10:50 AM BODY SPECIALIST Gender Identity Female 10/06/2023 10:50 AM BODY SPECIALIST Sexual Orientation Straight 10/06/2023 10 :50 AM BODY SPECIALIST documented as of this encounter Miscellaneous Notes * Telephone Encounter - Katharine Domínguez R.N. - 10/09/2023 2:41 PM BODY SPECIALIST Chief Complaint / Reason for Call Patient [...] procedure yesterday. Patient was warm transferred to [place] with switchboard to be placed on contact with provider machine stone polisher for GI. Present for: Procedure completed yesterday Home cares tried: Dressing Changes Calling to request: Review of symptoms/Advice The recommended disposition is Other. SPECIALIST documented in this encounter Plan of Treatment Upcoming Encounters Date Type Department Care Team (Late st Contact Info) Description 01/19/2024 10:00 AM CDT Telemedicine Department of Nutrition and Diabetes Education in [place], [place] [address] [place] [phone] Katja Umana M.D. [address] [place] [phone] Taty Cunningham M.S., RDN, LD [address] [place] [phone] documented as of this encounter Visit Diagnoses Not on filedocumented in this encounter
--- OUTSIDE RECORDS SUMMARY | 2023-12-28 07:59 | XMS_ITS | Encounter Summary ---
Author Name Unknown Organization [facility] Address [address] [place] [address] Care Team Providers Care Aws Software Development Engineer Name Role Phone Unavailable Primary Care Provider Unavailabl e Reason for Referral * Outpatient (Routine) - Closed Specialty Diagnoses / Procedures Referred By Contac t Referred To Contact Diagnoses Alcoholic Cirrhosis Of Liver With Ascites (HCC) Procedures Echo Transthoracic (TTE) Katja Umana M.D. [address] [place] [phone] [facility] Referral ID Status Reason Start Date Expiration Date Visits Re quested Visits Authorized [id number] Closed 10/06/2023 10/05/2024 1 1 RVISORY INVESTIGATIVE SPECIALIST Reason for Visit * Outpatient (Routine) - Closed Specialty Diagnoses / Procedures Referred By Dotty oakes Referred To Contact Diagnoses Alcoholic Cirrhosis Of Liver With Ascites (HCC) Procedures Echo Transthoracic (TTE) Katja Umana M.D. 200 [place] [phone] [facility] Referral ID Status Reason Start Date Expiration Date Visits Re quested Visits Authorized [id number] Closed 10/06/2023 10/05/2024 1 1 Encounter Details Date Type Department Care Team (Latest Contact Info) Description 10/07/2023 9:50 AM SUPERVISORY INVESTIGATIVE SPECIALIST - 10/07/2023 11:59 PM SUPERVISORY INVESTIGATIVE SPECIALIST Hospital Encounter Department of Cardiovascular Diseases in [place], [place] [address] [place] [phone] Katja Umana M.D. [address] [place] [phone] Alcoholic Cirrhosis Of Liver With Ascites (HCC) [...] Assigned at Female 10/06/2023 10:50 AM SUPERVISORY INVESTIGATIVE SPECIALIST Gender Identity Female 10/06/2023 10:50 AM SUPERVISORY INVESTIGATIVE SPECIALIST Sexual Orientation Straight 10/06/2023 10 :50 AM SUPERVISORY INVESTIGATIVE SPECIALIST documented as of this encounter Medications [...] Department of Nutrition and Diabetes Education in [place], [place] [address] [place] [phone] Katja Umana M.D. [address] [place] [phone] Taty Cunningham M.S., RDN, LD [address] [place] [phone] documented as of this encounter Procedures Procedure Name Priority Date/Time Associated Diagnosis Comments (TTE) 2D ECHO DOPPLER COLOR AND CONTRAST Routine 10/07/2023 11:01 AM SUPERVISORY INVESTIGATIVE SPECIALIST Alcoholic Cirrhosis Of Liver With Ascites (HCC) documented in this encounter Results * (TTE) 2D ECHO DOPPLER COLOR AND CONTRAST (10/07/2023 11:01 AM SUPERVISORY INVESTIGATIVE SPECIALIST) Ejection Fraction 68 MC CV EIMS Proximal [...] Region Laterality Modality Echocardiography 10/07/2023 9:54 AM SUPERVISORY INVESTIGATIVE SPECIALIST Impressions 10/07/2023 11:02 AM SUPERVISORY INVESTIGATIVE SPECIALIST Agitated saline contrast administered. Moderate intrapulmonary shunt. [...] the Order-Level Documents. Narrative 10/07/2023 11:02 AM SUPERVISORY INVESTIGATIVE SPECIALIST For the complete report, see the Order-Level [...] Diagnostic, See Dennys. Given 10/07/2023 10:53 AM SUPERVISORY INVESTIGATIVE SPECIALIST 30 mL sodium chloride 0.9 % injection 10 mL 10 mL, intravenous, As needed, line care, Starting on Dasia 10/07/23 at 1037, Prior to and following infusion and between multiple consecutive infusions: sodium chloride 0.9 % injection Given 10/07/2023 10:53 AM SUPERVISORY INVESTIGATIVE SPECIALIST 10 mL documented in this encounter
--- OUTSIDE RECORDS SUMMARY | 2023-12-28 07:59 | XMS_ITS | Encounter Summary ---
Author Name Unknown Organization [facility] Address [address] [place] [address] Care Team Providers Care Benefits Clerk Name Role Phone Unavailable Primary Care Provider Unavailabl e Reason for Visit * Reason Comments Nurse Visit Education Cirrhosis Encounter Details Date Type Department Care Team ([facility] st Contact Info) Description 10/06/2023 2:00 PM LEGAL WORD PROCESSOR Education Division of Gastroenterology in [place], [place] [address] [place] [phone] Ebony Back M.D. [address] [place] [phone] Leatha Reid R.N. [address] [place] [phone] Ascites; Alcoholic Cirrhosis Of Liver With Ascites [...] Sex Assigned at Female 10/06/2023 10:50 AM LEGAL WORD PROCESSOR Gender Identity Female 10/06/2023 10:50 AM LEGAL WORD PROCESSOR Sexual Orientation Straight 10/06/2023 10 :50 AM LEGAL WORD PROCESSOR documented as of this encounter Progress Notes * Leatha Reid R.N. - 10/06/2023 2:00 PM CST Education provided on cirrhosis, portal hypertension, hepatic encephalopathy, ascites. See Education History Report within medical record for more details. Timo present. Prefers labs at [facility], if needed. L WORD PROCESSOR documented in this encounter Plan of Treatment Upcoming Encounters Date Type Department Care Team (Late st Contact Info) Description 01/19/2024 10:00 AM CDT Telemedicine Department of Nutrition and Diabetes Education in [place], [place] [address] [place] [phone] Katja Umana M.D. [address] [place] [phone] Taty Cunningham M.S., RDN, LD [address] [place] [phone] documented as of this encounter Visit Diagnoses Diagnosis Ascites Alcoholic Cirrhosis Of Liver With Ascites (HCC) documented in this encounter
--- OUTSIDE RECORDS SUMMARY | 2023-12-28 07:59 | XMS_ITS | Encounter Summary ---
Author Name Unknown Organization [facility] Address [address] [place] [address] Care Team Providers Care Drapery Installer Name Role Phone Unavailable Primary Care Provider Unavailabl e Reason for Referral * Outpatient (Routine) - Closed Specialty Diagnoses / Procedures Referred By Contac t Referred To Contact Diagnoses Alcoholic Cirrhosis Of Liver With Ascites (HCC) Procedures Echo Transthoracic (TTE) Katja Umana M.D. [address] [place] [phone] [facility] Referral ID Status Reason Start Date Expiration Date Visits Re quested Visits Authorized [id number] Closed 10/06/2023 10/05/2024 1 1 BER * Outpatient (Routine) - Closed Specialty Diagnoses / Procedures Referred By Contac t Referred To Contact Diagnoses Alcoholic Cirrhosis Of Liver With Ascites (HCC) Procedures US Paracentesis with Imaging Guidance Katja Umana M.D. 200 [place] [phone] [facility] Referral ID Status Reason Start Date Expiration Date Visits Re quested Visits Authorized [id number] Closed 10/06/2023 10/05/2024 1 1 BER * Outpatient (Routine) - Closed Specialty Diagnoses / Procedures Referred By Contac t Referred To Contact Diagnoses Alcoholic Cirrhosis Of Liver With Ascites (HCC) Procedures EGD (EsophagoGastroDuodenoscopy) Restricted Katja Umana M.D. [address] [place] [phone] [facility] Referral ID Status Reason Start Date Expiration Date Visits Re quested Visits Authorized [id number] Closed 10/06/2023 10/05/2024 1 1 BER * Outpatient (Routine) - Closed Specialty Diagnoses / Procedures Referred By Contac t Referred To Contact Diagnoses Alcoholic Cirrhosis Of Liver With Ascites (HCC) Procedures DX Chest AP or PA and Lateral 2 Views Katja Umana M.D. 200 [place] [phone] [facility] Referral ID Status Reason Start Date Expiration Date Visits Re quested Visits Authorized [id number] Closed 10/06/2023 10/05/2024 1 1 BER Reason for Visit * Outpatient (Routine) - Closed Specialty Diagnoses / Procedures Referred By Contact Referred To Contact Gastroenterology and Hepatology Diagnoses Ascites Alcoholic Cirrhosis Of Liver With Ascites (HCC) [place] [phone] [facility] Referral ID Status Reason Start Date Expiration Date Visits Re quested Visits Authorized [id number] Closed 10/05/2023 04/05/2025 1 1 Encounter Details Date Type Department Care Team (Latest Contact Info) Description 10/06/2023 11:00 AM STUBBER Comprehensive Visit [facility] in [place], [place] 200 [place] [phone] Ebony Back M.D. 200 [place] [phone] [place] [phone] Ascites; Alcoholic Cirrhosis Of Liver With Ascites [...] Sex Assigned at Female 10/06/2023 10:50 AM STUBBER Gender Identity Female 10/06/2023 10:50 AM STUBBER Sexual Orientation Straight 10/06/2023 10 :50 AM STUBBER documented as of this encounter Last Filed Vital Signs Vital Sign Reading Time Taken Comments Blood Pressure 116/72 10/06/2023 10:49 AM STUBBER Pulse 105 10/06/2023 10:49 AM STUBBER Temperature 35.7 ??C (96.2 ??F) 10/06/2023 1 0:49 AM STUBBER Respiratory Rate - - Oxygen Saturation - - Inhaled Oxygen Concentration - - Weight 64.8 kg (142 lb 13.7 oz) 024 10:49 AM STUBBER Height 169.1 cm (5' 6.58) 10/06/2023 1 0:49 AM STUBBER Body Mass Index 22.66 10/06/2023 10:49 AM STUBBER documented in this encounter Consult Notes * Katja Umana M.D. - 10/06/2023 11:00 AM CST GASTROENTEROLOGY & HEPATOBILIARY CONSULT Date of Consultation: 10/06/2023 12:00 PM STUBBER Patient Name: Monique Redmond : 1960 Referring Physician: Ebony Back M.D. PCP: No primary care provider on file. Subjective: Chief Complaint/Reason for Consult Alcohol-associated cirrhosis Ascites HPI Monique Redmond is a 62 y.o. female from [place], [place], who is referred to Hepatobiliary Clinic [...] and leg swelling. She was seen in [facility] on 09/02/[address] 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 After this, she reports significant stress and [...] In 2014, Mrs. Redmond was seen at [place] in the GI Clinic for evaluation of [...] subsequent colonoscopy was performed around 2019 in [place]. She had polyps removed that were foundas [...] 86. Social History Ms. Redmond lives in [place], [place], with her Timo. 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 Details as above. Smoking - [...] Redmond is a 62 y.o. female from [place], [place], who is referred to Hepatobiliary Clinic [...] last colonoscopy was performed in 2019 in [place]. I am not able to see this report. She is recommended to follow-up with her PCP for completing surveillance colonoscopy. If she is not able tocomplete this locally, then we can arrange for this to be done at [place]. PATIENT EDUCATION: Ready to learn, no apparent learning barriers were identified; learning preferences include listening. Explained diagnosis and treatment plan; patient expressed understanding of the content. Return to clinic after tests. This patient was staffed with Dr. Morales. Electronically signed by: Katja Umana M.D. Fellow 10/06/2023 12:00 PM STUBBER BER * Felipe Morales M.D. - 10/06/2023 11:00 AM CST SUBJECTIVE Supervisory note for Dr. Umana. I interviewed and examined the patient and reviewed the documentation of Dr. Umana in her note today. REASON FOR CONSULT Alcohol-associated cirrhosis. 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 The patient has [...] Felipe Morales M.D. CT CT Job ID: [id number] BER documented in this encounter Plan of Treatment Upcoming Encounters Date Type Department Care Team (Late st Contact Info) Description 01/19/2024 10:00 AM CDT Telemedicine Department of Nutrition and Diabetes Education in [place], [place] [address] [place] [phone] Katja Umana M.D. [address] [place] [phone] Taty Cunningham M.S., RDN, LD [address] [place] [phone] documented as of this encounter Results * US Paracentesis with Imaging Guidance (10/08/2023 12:57 PM STUBBER) Anatomical Region Laterality Modality Abdomen, Ultrasound RST LOS, Ultrasound ARZ LOS, Procedure FLA LOS, Abdominal FLA LOS, Procedural, Procedural NWWI LOS N/A Ultrasound Impressions 10/08/2023 1:24 PM STUBBER Ultrasound-guided paracentesis. EP Narrative 10/08/2023 1:24 PM STUBBER EXAM: US PARACENTESIS WITH IMAGING GUIDANCE PRE-PROCEDURE: [...] DIAGNOSIS: Ascites IMPRESSION: Ultrasound-guided paracentesis. EP Katja FOSS US PROCEDURES * (TTE) 2D ECHO DOPPLER COLOR AND CONTRAST (10/07/2023 11:01 AM STUBBER) Ejection Fraction 68 MC CV EIMS Proximal [...] Region Laterality Modality Echocardiography 10/07/2023 9:54 AM STUBBER Impressions 10/07/2023 11:02 AM STUBBER Agitated saline contrast administered. Moderate intrapulmonary shunt. [...] the Order-Level Documents. Narrative 10/07/2023 11:02 AM STUBBER For the complete report, see the Order-Level [...] and Lateral 2 Views (10/06/2023 1:32 PM STUBBER) Anatomical Region Laterality Modality Chest, Thoracic RST LOS, Tho racic ARZ LOS, Thoracic FLA LOS N/A Digital Radiography Impressions 10/06/2023 1:35 PM STUBBER Shallow inspiration. New focal predominantly linear opacity [...] bilateral apical scarring. Narrative 10/06/2023 1:35 PM STUBBER EXAM: ??DX CHEST AP OR PA AND [...] Autoimmune Liver Disease Panel (10/06/2023 12:17 PM STUBBER) Pathologist [facility] Mitochondrial Ab, M2, S <0.1 <0.1 (Negative) U 10/06/2023 9:06 PM STUBBER SDSC Antinuclear Ab, HEp-2 Substrate, S Positive 1:320(A) <1:80 (Negative) 10/06/2023 10:15 PM STUBBER [facility] Comment: ----ADDITIONAL INFORMATION---- Method: Immunofluorescence using HEp-2 cellular substrate. NEGIN Titer: 1:320 10/06/2023 10:15 PM STUBBER SDSC NEGIN Pattern: Speckled 10/06/2023 10:15 PM STUBBER SDS Smooth Muscle Ab Screen, S Negative Negative 10/07/2023 11:57 AM STUBBER [facility] Comment: Negative: No further testing will be performed ----ADDITIONAL INFORMATION---- This test was developed and its performance characteristics determined by [facility] in a manner consistent with CLIA requirements. This test has not been cleared or approved by the U.S. Food and Drug Administration. Blood (Blood, Venous) 10/06/2023 12:17 PM STUBBER 10/06/2023 4:11 PM STUBBER Katja Umana M.D. LAB BLOOD ADD-ON [facility] [address] [place] [address] [facility] [address] [place] [address] [facility] [address] [place] [address] [place] [phone] * Hepatitis A IgG Ab, Serum (10/06/2023 12:17 PM STUBBER) Pathologist [facility] Hepatitis A IgG Ab, S Positive 10/06/2023 8:53 PM STUBBER SDSC Comment: Result indicates immunity to hepatitis A infection from either vaccination or past exposure to hepatitis A. False-positive results may be observed in patients with CMV antibodies or heterophilic antibodies. ?? ----REFERENCE VALUE---- Unvaccinated: Negative Vaccinated: Positive Blood (Blood, Venous) 10/06/2023 12:17 PM STUBBER 10/06/2023 3:57 PM STUBBER Katja Umana M.D. LAB MICROBIOLOGY - B LOOD ORDERABLES [facility] [address] [place] [address] [facility] [address] [place] [phone] * HBc Total Ab, Serum (10/06/2023 12:17 PM STUBBER) HBc Total Ab, S Negative Negative 10/06/2023 9:13 PM STUBBER [facility] Blood (Blood, Venous) 10/06/2023 12:17 PM STUBBER 10/06/2023 3:57 PM STUBBER Katja Umana M.D. LAB MICROBIOLOGY - B LOOD ORDERABLES Performing Organization Address City/[facility]/ZIP Co de Phone Number [facility] [address] [place] [address] [facility] [address] [place] [address] * Hepatitis B Surface Antigen (10/06/2023 12:17 PM STUBBER) HBs Antigen, S Negative Negative 10/06/2023 8:55 PM STUBBER [facility] Blood (Blood, Venous) 10/06/2023 12:17 PM STUBBER 10/06/2023 3:57 PM STUBBER Katja Umana M.D. LAB MICROBIOLOGY - B LOOD ORDERABLES [facility] [address] [place] [address] [facility] [address] [place] [address] * HBs Antibody, Serum (10/06/2023 12:17 PM STUBBER) Pathologist [facility] HBs Antibody, S Negative 10/06/2023 9:14 PM STUBBER [facility] Comment: Patient is presumed to be not immune to infection with HBV. ----REFERENCE VALUE---- Unvaccinated: Negative Vaccinated: Positive HBs Antibody, Quantitative, S <5.0 mIU/mL 10/06/2023 9:14 PM STUBBER [facility] Comment: ----REFERENCE VALUE---- Unvaccinated: <5.0 Vaccinated: >=12.0 Blood (Blood, Venous) 10/06/2023 12:17 PM STUBBER 10/06/2023 3:57 PM STUBBER Katja Umana M.D. LAB MICROBIOLOGY - B LOOD ORDERABLES Performing Organization Address City/[facility]/ZIP Co de Phone Number [address] [place] [address] [place] [address] * HCV Ab Scrn w/Reflex to HCV PCR, Serum (10/06/2023 12:17 PM STUBBER) [facility] HCV Ab Screen, S Negative Negative 10/06/2023 9:12 PM STUBBER [facility] Comment:Roflhq-lf-fnhczh rat io is <1.00. Blood (Blood, Venous) 10/06/2023 12:17 PM STUBBER 10/06/2023 3:57 PM STUBBER Katja Umana M.D. LAB MICROBIOLOGY - B LOOD ORDERABLES Performing Organization Address City/[facility]/ZIP Co de Phone Number [place] [phone] [place] [address] [place] [address] * AFP (Alpha-Fetoprotein), Tumor Marker (10/06/2023 12:17 PM STUBBER) [facility] Alpha-Fetoprotein, Tumor Marker, S 7.8 ng/mL 10/07/2023 3:00 PM STUBBER [facility] Comment: ----REFERENCE VALUE---- <8.4 Reference values are for non- subjects only; production of AFP elevates values in women. ----ADDITIONAL INFORMATION---- In this [place] assay AFP concentrations are <8.4 ng/mL for [...] method is an immunoenzymatic assay manufactured by [employer]. and is tested on the [employer] DxI 800. Values obtained with different assay methods or kits may be different and cannot be used interchangeably. ? Test results cannot be interpreted as absolute evidence of the presence or absence of malignant disease. Alpha-Fetoprotein values are not interpretable in females for the investigation of malignant disease. Blood (Blood, Venous) 10/06/2023 12:17 PM STUBBER 10/07/2023 1:04 PM STUBBER Katja Umana M.D. LAB BLOOD ADD-ON [facility] [address] [place] [address] [facility] [address] [place] [address] * (ABNORMAL) Prothrombin Time (PT) (10/06/2023 12:17 PM STUBBER) Prothrombin Time, P 19.6(H) 9.4 - 12.5 sec 10/06/2023 12:47 PM STUBBER DTL INR 1.8 0.9 - 1.1 10/06/2023 12:47 PM STUBBER DTL Comment: ----ADDITIONAL INFORMATION---- Standard intensity warfarin therapeutic range: 2.0 to 3.0 ?? High intensity warfarin therapeutic range: 2.5 to 3.5 Blood (Blood, Venous) 10/06/2023 12:17 PM STUBBER 10/06/2023 12:27 PM STUBBER Katja Umana M.D. LAB BLOOD ADD-ON [facility] [address] [place] [address], [facility] [address] [place] [address] * (ABNORMAL) Comprehensive Metabolic Panel (10/06/2023 12:17 PM STUBBER) Pathologist [facility] Potassium, S 3.6 3.6 - 5.2 mmol/L 10/06/2023 1:02 PM STUBBER DTL Sodium, S 134(L) 135 - 145 mmol/L 10/06/2023 1:02 PM STUBBER DTL Chloride, S 103 98 - 107 mmol/L 10/06/2023 1:02 PM STUBBER DTL Bicarbonate, S 24 22 - 29 mmol/L 10/06/2023 1:02 PM STUBBER DTL Anion Gap 7 7 - 15 10/06/2023 1:02 PM STUBBER DTL BUN (Blood Urea Nitrogen), S 5(L) 6 - 21 mg/dL 10/06/2023 1:02 PM STUBBER DTL Creatinine 0.48(L) 0.59 - 1.04 mg/dL 10/06/2023 1:02 PM STUBBER DTL Estimated GFR (eGFR) >90 >=60 mL/min/BS A 10/06/2023 1:02 PM STUBBER DTL Comment: Estimated GFR calculated using the 2020 CKD_EPI creatinine equation. Calcium, Total, S 8.1(L) 8.8 - 10.2 mg/dL 10/06/2023 1:02 PM STUBBER DTL Glucose, S 135 70 - 140 mg/dL 10/06/2023 1:02 PM STUBBER DTL Protein, Total, S 7.3 6.3 - 7.9 g/dL 10/06/2023 1:02 PM STUBBER DTL Albumin, S 2.9(L) 3.5 - 5.0 g/dL 10/06/2023 1:02 PM STUBBER DTL Aspartate Aminotransferase (AST), S 95(H) 8 - 43 U/L 10/06/2023 1:02 PM STUBBER DTL Alkaline Phosphatase, S 193(H) 35 - 104 U/L 10/06/2023 1:02 PM STUBBER DTL Alanine Aminotransferase (ALT), S 23 7 - 45 U/L 10/06/2023 1:02 PM STUBBER DTL Bilirubin, Total, S 3.0(H) 0.0 - 1.2 mg/dL 10/06/2023 1:02 PM STUBBER DTL Blood (Blood, Venous) 10/06/2023 12:17 PM STUBBER 10/06/2023 12:43 PM STUBBER Katja Umana M.D. LAB BLOOD ADD-ON [facility] [address] [address], [facility] [place] [address] * (ABNORMAL) CBC with Differential, Blood (10/06/2023 12:17 PM STUBBER) Hemoglobin 9.4(L) 11.6 - 15.0 g/dL 10/06/2023 12:37 PM STUBBER DTL Hematocrit 28.4(L) 35.5 - 44.9 % 10/06/2023 12:37 PM STUBBER DTL Erythrocytes 2.74(L) 3.92 - 5.13 x10(12)/L 10/06/2023 12:37 PM STUBBER DTL MCV 103.6(H) 78.2 - 97.9 fL 10/06/2023 12:37 PM STUBBER DTL RBC Distrib Width 13.8 12.2 - 16.1 % 10/06/2023 12:37 PM STUBBER DTL Platelet Count 163 157 - 371 x10(9)/L 10/06/2023 12:37 PM STUBBER DTL Leukocytes 7.0 3.4 - 9.6 x10(9)/L 10/06/2023 12:37 PM STUBBER DTL Neutrophils 4.66 1.56 - 6.45 x10(9)/L 10/06/2023 12:37 PM STUBBER DHPM Lymphocytes 1.77 0.95 - 3.07 x10(9)/L 10/06/2023 12:37 PM STUBBER DTL Monocytes 0.53 0.26 - 0.81 x10(9)/L 10/06/2023 12:37 PM STUBBER DTL Eosinophils 0.03 0.03 - 0.48 x10(9)/L 10/06/2023 12:37 PM STUBBER DTL Basophils <0.03 0.01 - 0.08 x10(9)/L 10/06/2023 12:37 PM STUBBER DTL Blood (Blood, Venous) 10/06/2023 12:17 PM STUBBER 10/06/2023 12:28 PM STUBBER Katja Umana M.D. LAB BLOOD ADD-ON [facility] [address] [place] [address], [facility] DTL [facility] [address] [place] [address] DHPM [facility] [address] [place] [address] documented in this encounter Visit Diagnoses Diagnosis Ascites Alcoholic Cirrhosis Of Liver With Ascites (HCC) Alcoholic Cirrhosis Of Liver With Ascites (HCC) Alcoholic Cirrhosis Of Liver With Ascites (HCC) Alcoholic Cirrhosis Of Liver With Ascites (HCC) documented in this encounter
--- OUTSIDE RECORDS SUMMARY | 2023-12-28 07:59 | XMS_ITS | Encounter Summary ---
Author Name Unknown Organization [facility] Address [address] [place] [address] Care Team Providers Care Rn Bariatric Name Role Phone Unavailable Primary Care Provider Unavailabl e Reason for Referral * Outpatient (Routine) - Closed Specialty Diagnoses / Procedures Referred By Contac t Referred To Contact Diagnoses Alcoholic Cirrhosis Of Liver With Ascites (HCC) Procedures DX Chest AP or PA and Lateral 2 Views Katja Umana M.D. [address] [place] [phone] [facility] Referral ID Status Reason Start Date Expiration Date Visits Re quested Visits Authorized [id number] Closed 10/06/2023 10/05/2024 1 1 OL HEALTH AIDE Reason for Visit * Outpatient (Routine) - Closed Specialty Diagnoses / Procedures Referred By Dotty oakes Referred To Contact Diagnoses Alcoholic Cirrhosis Of Liver With Ascites (HCC) Procedures DX Chest AP or PA and Lateral 2 Views Katja Umana M.D. 200 [place] [phone] [facility] Referral ID Status Reason Start Date Expiration Date Visits Re quested Visits Authorized [id number] Closed 10/06/2023 10/05/2024 1 1 Encounter Details Date Type Department Care Team (Latest Contact Info) Description 10/06/2023 12:45 PM SCHOOL HEALTH AIDE - 10/06/2023 11:59 PM SCHOOL HEALTH AIDE Hospital Encounter Department of Radiology, [facility], in [place], [place] [address] [place] [phone] Katja Umana M.D. [address] [place] [phone] Alcoholic Cirrhosis Of Liver With Ascites (HCC) [...] Sex Assigned at Female 10/06/2023 10:50 AM SCHOOL HEALTH AIDE Gender Identity Female 10/06/2023 10:50 AM SCHOOL HEALTH AIDE Sexual Orientation Straight 10/06/2023 10 :50 AM SCHOOL HEALTH AIDE documented as of this encounter Medications at [...] Department of Nutrition and Diabetes Education in [place], [place] [address] [place] [phone] Katja Umana M.D. [address] [place] [phone] Taty Cunningham M.S., RDN, LD [address] [place] [phone] documented as of this encounter Procedures Procedure Name Priority Date/Time Associated Diagnosis Comments DX CHEST AP OR PA AND LATERAL 2 VIEWS RAD - Routine (most inpatients and all outpatients) 10/06/2023 1:32 PM SCHOOL HEALTH AIDE Alcoholic Cirrhosis Of Liver With Ascites (HCC) documented in this encounter Results * DX Chest AP or PA and Lateral 2 Views (10/06/2023 1:32 PM SCHOOL HEALTH AIDE) Anatomical Region Laterality Modality Chest, Thoracic RST LOS, Tho racic ARZ LOS, Thoracic FLA LOS N/A Digital Radiography Impressions 10/06/2023 1:35 PM SCHOOL HEALTH AIDE Shallow inspiration. New focal predominantly linear opacity [...] bilateral apical scarring. Narrative 10/06/2023 1:35 PM SCHOOL HEALTH AIDE EXAM: ??DX CHEST AP OR PA AND [...]
--- OUTSIDE RECORDS SUMMARY | 2023-12-28 07:59 | XMS_ITS | Encounter Summary ---
Author Name Unknown Organization [facility] Address [address] [place] [address] Care Team Providers Care Field Reporter Name Role Phone Unavailable Primary Care Provider Unavailabl e Reason for Referral * Specialty Diagnoses / Procedures Referred By Contlulu t Referred To Contact Ebony Back M.D. [address] [place] [phone] [facility] Referral ID Status Reason Start Date Expiration Date Visits Re quested Visits Authorized Scheduling Instructions Schedule after GIH consult DENT SERVICES COORDINATOR * Outpatient (Routine) - Closed Specialty Diagnoses / Procedures Referred By Contact Referred To Contact Gastroenterology and Hepatology Diagnoses Ascites Alcoholic Cirrhosis Of Liver With Ascites (HCC) Ebony Back M.D. 200 [place] [phone] [facility] Referral ID Status Reason Start Date Expiration Date Visits Re quested Visits Authorized [id number] Closed 10/05/2023 04/05/2025 [address] Morales agreed to see DENT SERVICES COORDINATOR Encounter Details Date Type Department Care Team (Late st Contact Info) Description 10/05/2023 Orders Only Department of Oncology in [place], [place] [address] [place] [phone] Ebony Back M.D. [address] [place] [phone] Ascites (Primary Dx); Alcoholic Cirrhosis Of Liver [...] Sex Assigned at Female 10/06/2023 10:50 AM RESIDENT SERVICES COORDINATOR Gender Identity Female 10/06/2023 10:50 AM RESIDENT SERVICES COORDINATOR Sexual Orientation Straight 10/06/2023 10 :50 AM RESIDENT SERVICES COORDINATOR documented as of this encounter Plan of Treatment Upcoming Encounters Date Type Department Care Team (Late st Contact Info) Description 01/19/2024 10:00 AM CDT Telemedicine Department of Nutrition and Diabetes Education in [place], [place] [address] [place] [phone] Katja Umana M.D. [address] [place] [phone] Taty Cunningham M.SPetros, RDN, LD [address] [place] [phone] Scheduled Referrals Name Type Priority Associated Diagnoses [...]
--- OUTSIDE RECORDS SUMMARY | 2023-12-28 07:59 | XMS_ITS | Encounter Summary ---
Author Name Unknown Organization [facility] Address [address] [place] [address] Care Team Providers Care Floor Press Operator Name Role Phone Unavailable Primary Care Provider Unavailabl e Encounter Details Date Type Department Care Team (Late st Contact Info) Description 09/01/2023 Clinical Communication Division of Colon and Rectal Surgery in [place], [place] [address] [place] [phone] Prescheduling, Provider Social History Tobacco Use Types Packs/Day Years Used Date Smoking Tobacco: Every Day Nutrition Answer Date Recorded Nutrition: EVOO Fat Source Unknown 11/10 Nutrition: Servings of Fruits/Vegetables per Day Not on file 2020 Dental Answer Date Recorded Dental: Regular Dentist Unknown 11/10/19 21 Sex and Gender Information Value Date Recorded Sex Assigned at Female 10/06/2023 10:50 AM PHARMACY TECH CUSTOMER SERVICE Gender Identity Female 10/06/2023 10:50 AM PHARMACY TECH CUSTOMER SERVICE Sexual Orientation Straight 10/06/2023 10 :50 AM PHARMACY TECH CUSTOMER SERVICE documented as of this encounter Plan of Treatment Upcoming Encounters Date Type Department Care Team (Late st Contact Info) Description 01/19/2024 10:00 AM CDT Telemedicine Department of Nutrition and Diabetes Education in [place], [place] [address] [place] [phone] Katja Umana M.D. [address] [place] [phone] Taty Cunningham M.S., RDN, LD [address] [place] [phone] documented as of this encounter Visit Diagnoses Not on filedocumented in this encounter
--- NOTE | 2023-12-28 09:23 | W.PM.PARA ---
Paracentesis Date Date: 12/28/23 Procedure Note Procedure: Paracentesis with Ultrasound Guidance Type of paracentesis: Therapeutic Initial or Repeat?: Repeat Surgeon: Melonie Marina Indications: The patient is a 63-year-old female who has been diagnosed with ascites secondary to alcoholic cirrhosis. She has been undergoing paracentesis approximately every 2 weeks. This has been done primarily at [facility]. She has her last paracentesis about 1.5 weeks ago. They remove approximately 7-8 L at a time and also administer 2 bottles of 25% albumin. Past surgical medical history was reviewed with the patient today. She did recently receive 2 units of red blood cells for hemoglobin of 6.8. She recently had a GI bleed secondary to duodenal ulcer. She follows up with her instructional design technologist next month. The patient is noted to have a very distended abdomen. Her vital signs are stable with blood pressure of 130 systolic and heart rate 90 prior to the procedure. Labs and Cytology Sent:: No Albumin infused: Yes (2 bottles 25%) Procedure Note:: Prior to the procedure, the risks and benefits of the procedure were discussed and an informed consent was obtained. Patient identification was confirmed and TIME OUT was performed. An ultrasound was brought onto the field and an easily accessible pocket of ascites was identified that was away from intraabdominal organs. The patient's abdomen in the right lower quadrant was prepped and draped in the usual sterile fashion. 1% Lidocaine was used to anesthetize the skin, soft tissues and peritoneum over the proposed needle insertion site. A skin incision was made with a scalpel just large enough to fit the needle. The needle with the paracentesis catheter was advanced into the abdomen and a cystic fluid was aspirated into the syringe. The needle was then withdrawn and the catheter was left in place. The catheter was then connected to the drainage tubing. 5.3 Liters of straw colored fluid was drained. Post procedure ultrasound revealed minimal residual ascitic fluid. The catheter was then removed and the skin was closed with Dermabond. Patient tolerated procedure well and there were no immediate complications. Patient's vital signs were stable throughout the procedure. Recomendation: Discharge to home (ambulatory) and return to normal activities tomorrow. Follow up with referring provider as needed.
[2023-12-28 10:20] VITALS: BP 125/65; PULSE 93; RESP 16; O2SAT 100
--- NOTE | 2023-12-28 11:14 | PC.NURSE ---
Patient presented for a paracentesis. IV was started in right forearm with 24 gauge after 4 attempts. Patient received albumin 0.25% 100 ml x [address] Marina. Infusion started at [address] Marina and after procedure was completed, infusion rate was increased to [address] Marina. Patient tolerated infusion and procedure well.
[2023-12-28] MEDS: ALBUMIN HUMAN 25% 25 GM/100 ML VIAL IVPB (11:19)
== END 2023-12-28 10:30 | disposition home or self-care (01) ==
LOC: US 07:52
PROVIDERS: PCP Family Medicine; Visit Provider Surgery
DX: K70.31 Alcoholic cirrhosis of liver with ascites (principal)
CPT/HCPCS: 49083

== ENCOUNTER 2024-01-09 18:37 | Emergency (ER) | payer BC, SELFPAY ==
[2024-01-09 18:44] VITALS: BP 121/75; PULSE 87; RESP 20; TEMP 36.6; O2SAT 100; BMI 19.4
[2024-01-09 18:46] VITALS: RESP 18; O2SAT 96
[2024-01-09 19:15] VITALS: O2SAT 100
[2024-01-09 19:45] LABS: Basophils Absolute Auto 0.02 K/uL (0.00-0.30); Basophils Percent Auto 0.3 % (0.0-3.0); Eosinophils Absolute Auto 0.04 K/uL (0.00-0.50); Eosinophils Percent Auto 0.6 % (0.0-7.0); Hematocrit 24.8 % (33.0-51.0); Hemoglobin* 8.2 gm/dL (12.0-16.0); Immature Granulocytes Abs Auto 0.01 K/uL (0.00-0.30); Immature Granulocytes Pct Auto 0.2 %; Lymphocytes Absolute Auto 1.67 K/uL (0.90-2.90); Lymphocytes Percent Auto 25.3 % (20-44); Mean Corpuscular HGB Conc 33 gm/dL (32-36); Mean Corpuscular Hemoglobin 32 pg (26-34); Mean Corpuscular Volume 98 fL (80-100); Monocytes Percent Auto 9.3 % (0.0-11.0); Neutrophils Absolute Auto 4.24 K/uL (1.7-7.0); Neutrophils Percent Auto 64.3 % (42.0-72.0); Platelet Count* 163 K/uL (140-440); RDW Coefficient of Variation % 19.1 % (11.5-15.5); Red Blood Count 2.54 m/uL (4.00-5.20); White Blood Count* 6.59 K/uL (4.50-11.00)
--- NOTE | 2024-01-09 19:46 | ED.GENADULT ---
HPI - General Adult General Date Seen: 01/09/24 Chief complaint: Unspecified Complaint, Adult Stated complaint: needs hemoglobin checked Time Seen by Provider: 01/09/24 18:43 Source: patient Mode of arrival: ambulatory Limitations: no limitations History of Present Illness HPI narrative: Patient is a 63-year-old female with a history of cirrhosis, anemia, hypertension presenting to the emergency department for weakness. She states the past few days she has been feeling weak and tired. Is having some mild lightheadedness and says she feels ago as a foggy sensation in her brain. States she has had these episodes twice before both times she was anemic and needed blood transfusions. States the symptoms are the exact same. These occurred in the past 2 months. States her most recent transfusion was at the transfusion center here. Previously she had to be transferred to [place] for hyponatremia and her low hemoglobin. Her most recent hemoglobin 10 days ago was 9.3. Did recently get back from a trip to [place] this morning. Denies fevers, chills, chest pain, shortness of breath, abdominal pain, headache, vision changes. She is scheduled for paracentesis in 2 days. Related Data Home Medications Medication Instructions Recorded Confirmed furosemide 40 mg tablet 40 mg PO DAILY 11/16/23 12/24/23 pantoprazole 40 mg tablet,delayed 40 mg PO BID 12/10/23 12/24/23 release (Protonix) rifaximin 550 mg tablet (Xifaxan) 550 mg PO BID 12/10/23 12/24/23 spironolactone 100 mg tablet 50 mg PO DAILY 12/10/23 12/24/23 lactulose 10 gram/15 mL oral 15 ml PO BID-TID 12/23/23 12/24/23 solution Previous Rx's Medication Instructions Recorded trazodone 50 mg tablet 50 - 100 mg (1 - 2 x 50 mg) PO QPM 12/23/23 #60 tabs Allergies Allergy/AdvReac Type Severity Reaction Status Date / Time No Known Drug Allergies Allergy Verified 12/24/23 10:21 Review of Systems Status of ROS: Reports: 10 or more systems reviewed and unremarkable except as noted in History and below [facility] Medical History History of echocardiogram ?Z92.89 - Personal history of other medical treatment (ICD-10) Esophageal varices ?I85.00 - Esophageal varices without bleeding (ICD-10) Duodenal ulcer (12/03/23) ?K26.9 - Duodenal ulcer, unspecified as acute or chronic, without hemorrhage or perforation (ICD-10) Eustachian tube dysfunction ?H69.90 - Unspecified Eustachian tube disorder, unspecified ear (ICD-10) Hyponatremia ?E87.1 - Hypo-osmolality and hyponatremia (ICD-10) Anemia ?D64.9 - Anemia, unspecified (ICD-10) Ascites ?R18.8 - Other ascites (ICD-10) Perianal abscess ?K61.0 - Anal abscess (ICD-10) Liver lesion ?K76.9 - Liver disease, unspecified (ICD-10) Cirrhosis of liver ?K74.60 - Unspecified cirrhosis of liver (ICD-10) Tobacco abuse ?Z72.0 - Tobacco use (ICD-10) Elevated LFTs ?R79.89 - Other specified abnormal findings of blood chemistry (ICD-10) Primary hypertension ?I10 - Essential (primary) hypertension (ICD-10) Health care directive on file ?Z78.9 - Other specified health status (ICD-10) Alcohol abuse ?F10.10 - Alcohol abuse, uncomplicated (ICD-10) Depression ?F32.A - Depression, unspecified (ICD-10) Tubular adenoma of colon ?D12.6 - Benign neoplasm of colon, unspecified (ICD-10) Surgical History History of breast biopsy ?Z98.890 - Other specified postprocedural states (ICD-10) History of abdominal hysterectomy ?Z90.710 - Acquired absence of both cervix and uterus (ICD-10) Family History Father High blood pressure Lymphoma Mother High blood pressure Social History Narrative: patient admits to smoking and drinking alcohol. 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 Reviewed for scanning to medical record on 04/17/2020 What is your current living situation?: I presently have a place to live Problems where you live: no known problems In the past 12 months, utilities in danger of being shut off: no In past 12 months, lack of transportation kept you from medical appts, meetings, work, or getting things needed for daily living: no In the past 12 mos, have been you worried that your food would run out before you had money to buy more?: never true In the past 12 mos, the food you bought just didn't last and you didn't have money to buy more?: never true Smoking Status: Current every day smoker What tobacco products do you use: cigarettes Do you use any of these nicotine containing products: None Second hand tobacco smoke exposure: No How often do you have a drink containing alcohol: 4 or more times a week How many standard drinks containing alcohol do you have on a typical day: 1 or 2 How often do you have six or more drinks on one occasion: Never AUDIT-C Alcohol total score: 4 Non-prescribed substance use: marijuana (any form) How often does anyone, including family, friends and others, physically hurt you: never How often does anyone, including family, friends and others, insult or talk down to you: never How often does anyone, including family, friends and others, threaten you with harm: never How often does anyone, including family, friends and others, scream or curse at you: never Little interest or pleasure in doing things: several days Feeling down, depressed, or hopeless: several days service: No Exam Narrative: Exam Narrative: Const: Well-nourished, Well-developed, in mild distress Eyes: PERRL, no conjunctival injection, and symmetrical lids HENT: Atraumatic external nose and ears. Moist mucous membranes. Neck: Symmetric, trachea midline, No thyromegaly. CVS: RRR, No murmurs or gallops. Peripheral pulses 2+ and equal in all extremities RESP: Unlabored respiratory effort. Clear to auscultation bilaterally. GI: Nontender, marked abdominal distension, No rebound or guarding. MSK:Extremities w/o deformity, Normal Active ROM Skin: Warm, Dry. No rashes or lesions. Neuro: Normal Muscle tone, No focal neurological deficits. Psych: Awake, Alert, & Oriented x3. Appropriate mood and affect. Const: Vital Signs, click to edit/add: Vital Signs - 24 hr 01/09/24 18:44 Temperature 97.9 F Pulse Rate [Right Pulse Oximeter] 87 Respiratory Rate 20 Blood Pressure [Ri ght Upper Arm] 121/75 Pulse Oximetry 100 Oxygen Delivery Me thod Room Air Course Vital Signs Vital signs: Initial Vital Signs Temperature 97.9 F 01/09/24 18:44 Temperature Source Temporal Artery Scan 01/09/24 18:44 Pulse Rate 87 01/09/24 18:44 Respiratory Rate 20 01/09/24 18:44 Blood Pressure 121/75 01/09/24 18:44 Blood Pressure Mean 90 01/09/24 18:44 Blood Pressure Position Sitting 01/09/24 18:44 Pulse Oximetry 100 01/09/24 18:44 Oxygen Delivery Method Room Air 01/09/24 18:44 Vital Signs Temperature 97.9 F 01/09/24 18:44 Pulse Rate 87 01/09/24 18:44 Respiratory Rate 20 01/09/24 18:44 Blood Pressure 121/75 01/09/24 18:44 Pulse Oximetry 100 01/09/24 18:44 Oxygen Delivery Method Room Air 01/09/24 18:44 Temperature 97.9 F 01/09/24 18:44 Pulse Rate 87 01/09/24 18:44 Respiratory Rate 20 01/09/24 18:44 Blood Pressure 121/75 01/09/24 18:44 Pulse Oximetry 100 01/09/24 18:44 Oxygen Delivery Method Room Air 01/09/24 18:44 Medical Decision Making MDM Narrative Medical decision making narrative: Patient is a 63-year-old female presenting for weakness. Is not having any respiratory symptoms. Do not find necessary to order COVID/flu/RSV at this time. Will order a troponin, CBC, CMP. Her hemoglobin returned at 8.2 it does not require transfusion at this time. Her sodium came back at 01:29. I spoke to her and she says usually her sodium is in the mid to low 120s this is actually good for her. Troponin return showing no concerning abnormalities. LFTs are roughly at baseline. She otherwise is feeling well at this time. Do not believe further lab work or imaging is necessary. She states she is probably just tired after a long trip visiting her mother in [place]. She is agreeable to discharge at this time. Lab Data Labs: Lab Results 01/09/24 01/09/24 Range/Units 18:47 19:29 WBC 6.59 (4.50-11.00) K/uL RBC 2.54 L (4.00-5.20) m/uL Hgb 8.2 L (12.0-16.0) gm/dL Hct 24.8 L (33.0-51.0) % MCV 98 (80-100) fL MCH 32 (26-34) pg MCHC 33 (32-36) gm/dL RDW Coeff of Katt 19.1 H (11.5-15.5) % Plt Count 163 (140-440) K/uL Neut % (Auto) 64.3 (42.0-72.0) % Lymph % (Auto) 25.3 (20-44) % [place] % (Auto) 9.3 (0.0-11.0) % Eos % (Auto) 0.6 (0.0-7.0) % Baso % (Auto) 0.3 (0.0-3.0) % Neut # (Auto) 4.24 (1.7-7.0) K/uL Lymph # (Auto) 1.67 (0.90-2.90) K/uL [place] # (Auto) 0.60 (0.00-0.90) K/UL Eos # (Auto) 0.04 (0.00-0.50) K/uL Baso # (Auto) 0.02 (0.00-0.30) K/uL Abs Immat Gran (auto) 0.01 (0.00-0.30) K/uL Imm/Tot Granulo (auto) 0.2 % Sodium 129 L (135-149) mmol/L Potassium 4.0 (3.6-5.1) mmol/L Chloride 96 (96-114) mmol/L Carbon Dioxide 28 (20-32) mmol/L Anion Gap 5 L (7-15) mEq/L BUN 16 (7-30) mg/dL Creatinine 0.5 (0.5-1.5) mg/dL Estimated Creat Clear 49.48 Estimated GFR 105 ml/min Glucose 90 (60-115) mg/dL Calcium 8.3 L (8.4-10.6) mg/dL Total Bilirubin 2.7 H (0.1-1.5) mg/dL AST 83 H (12-35) U/L ALT 33 (4-35) U/L Alkaline Phosphatase 165 H (40-150) U/L Troponin I < 0.01 L (0.01-0.04) ng/mL Total Protein 8.1 (6.0-8.3) g/dL Albumin 3.4 (3.3-5.0) g/dL Discharge Plan Discharge Clinical Impression: Chronic hyponatremia Anemia Qualifiers: Anemia type: unspecified type Qualified Code(s): D64.9 - Anemia, unspecified Patient Disposition: Home, Self-Care Condition: Stable Instructions: Anemia (ED) Additional Instructions: Make sure to go to your appointment on Wednesday for paracentesis. Return to emergency department for new or worsening symptoms Prescriptions: No Action trazodone 50 mg tablet 50 - 100 mg PO QPM Qty: 60 5RF furosemide 40 mg tablet 40 mg PO DAILY spironolactone 100 mg tablet 50 mg PO DAILY pantoprazole [Protonix] 40 mg tablet,delayed release (DR/EC) 40 mg PO BID Xifaxan 550 mg tablet 550 mg PO BID lactulose 10 gram/15 mL solution 15 ml PO BID-TID Follow Up/Referrals: Jared Delgado MD [Primary Care Provider] - Stand Alone Forms: [employer] Instructions
--- OUTSIDE RECORDS SUMMARY | 2024-01-09 19:47 | XMS_ITS | Clinical Summary ---
Author Name Unknown Organization [employer] [facility] [employer] [facility] Address [place], [place] [address] Care Team Providers Care [employer]inated [employer] Assembl[employer] Gluer Name Role Phone Jared Delgado MD Primary Care Provider [phone] Allergies No known active allergies Medications Medication [...] Travel 4 1:10 PM CDT Anesthesia Event [address] [address] Gabe Webber MD 4 12:12 PM CDT - 4 12:57 PM CDT Surgery [address] [address] Janet Torres MBBS ESOPHAGOGASTRODUODENOSCOPY 4 8:52 PM CDT - 4 5:25 PM CDT Hospital Encounter [address] [address] s, U Hospitalist zachery Jett, MD Kim [...] - 145 mmol/L 12/06/2023 11:58 AM CDT [facility] Blood BLOOD SPECIMEN / Unknown Butterfly / Unknown 12/06/2023 11:25 AM CDT 12/06/2023 11:50 AM CDT Freddy Moctezuma MD CHEMISTRY [facility] SENDOUT INTERNAL ZIP [phone] [place] [address] * (ABNORMAL) HEMOGLOBIN (12/06/2023 9:05 AM CDT) Only the most recent of6 resultswithin the time period is included. HEMOGLOBIN 7.6(L) 12.0 - 16.0 g/dL 12/06/2023 9:29 AM CDT [facility] MCV 94 80 - 100 fL 12/06/2023 9:29 AM CDT [facility] Blood BLOOD SPECIMEN / Unknown Venipuncture / Unknown 12/06/2023 9:05 AM CDT 12/06/2023 9:24 AM CDT Freddy Moctezuma MD HEMATOLOGY [facility] SENDOUT INTERNAL ZIP [address] [place] [address] * (ABNORMAL) BASIC METABOLIC PANEL (12/05/2023 1:42 PM CDT) Only the most recent of3 resultswithin the time period is included. SODIUM 122(L) 136 - 145 mmol/L 12/05/2023 2:37 PM CDT [facility] POTASSIUM 4.6 3.5 - 5.1 mmol/L 12/05/2023 2:37 PM CDT [facility] CHLORIDE 92(L) 98 - 107 mmol/L 12/05/2023 2:37 PM CDT [facility] CO2,TOTAL 20(L) 22 - 29 mmol/L 12/05/2023 2:37 PM CDT [facility] ANION GAP 10 5 - 18 12/05/2023 2:37 PM CDT [facility] GLUCOSE 97 70 - 99 mg/dL 12/05/2023 2:37 PM CDT [facility] CALCIUM 7.8(L) 8.8 - 10.2 mg/dL 12/05/2023 2:37 PM CDT [facility] BUN 11 8 - 23 mg/dL 12/05/2023 2:37 PM CDT [facility] CREATININE 0.50 0.50 - 0.90 mg/dL 12/05/2023 2:37 PM CDT [facility] BUN/CREAT RATIO 22(H) 10 - 20 2:37 PM CDT [facility] eGFR >90 >90 mL/min/1.7 3m2 12/05/2023 2:37 PM CDT [facility] Comment:As of 2021, eG FR [...] 2:10 PM CDT Freddy Moctezuma MD CHEMISTRY [facility] SENDOUT INTERNAL ZIP [address] [place] [address] * LC HEP A AB, TOTAL (12/04/2023 9:21 AM CDT) Hep A Ab Tot Negative Negative 12/08/2023 11:10 AM CDT [facility] ([facility]) Comment: Comment: The HAV total antibody assay detects both IgG and IgM but does not differentiate between them. A negative result suggests susceptibility to infection. A positive result could be due to vaccination, previously resolved infection or active infection. Testing for HAV IgM should be performed if active HAV infection is suspected. [facility] offers profiles that will automatically reflex positive HAV total antibody results to IgM (e.g., panel #[id number] HAV Antibody w/ Rfx). Blood BLOOD SPECIMEN / Unknown Venipuncture / Unknown 12/04/2023 9:21 AM CDT 12/04/2023 9:29 AM CDT Narrative [facility] ([facility]) - 12/08/2023 11:10 AM CDT Performed at: ??[address] ??[id number] Metal Model Maker: Carlos Piña MD, Phone: ??[phone] Janet DELGADO LABORATORY [facility] (CET) [address] [place] [address] * ANTI HBS QUANT AHS (12/04/2023 9:21 AM CDT) ANTI HBS QUANT <3.50 mIU/mL 12/04/2023 3:36 PM CDT [facility] Blood BLOOD SPECIMEN / Unknown Venipuncture / Unknown 12/04/2023 9:21 AM CDT 12/04/2023 9:29 AM CDT Narrative [facility] - 12/04/2023 3:36 PM CDT <8.5 [...] prior to retesting. Janet JULIOBS SEND OUTS [facility] [address] [place] [address], * (ABNORMAL) PROTIME-INR (12/04/2023 9:21 AM CDT) INR 1.7(H) <1.3 12/04/2023 9:58 AM CDT [facility] PROTIME 18.5(H) 10.3 - 12.3 sec 12/04/2023 9:58 AM CDT [facility] Blood BLOOD SPECIMEN / Unknown Venipuncture / Unknown 12/04/2023 9:21 AM CDT 12/04/2023 9:30 AM CDT [facility] - 12/04/2023 9:58 AM CDT ?Therapeutic [...] is on UFH. Felipe Alvarez MD HEMATOLOGY [facility] SENDOUT INTERNAL ZIP [phone] [place] [address] * (ABNORMAL) AMMONIA (12/04/2023 9:21 AM CDT) AMMONIA 129(HH) 16 - 60 umol/L 12/04/2023 10:05 AM CDT [facility] Blood BLOOD SPECIMEN / Unknown Venipuncture / Unknown 12/04/2023 9:21 AM CDT 12/04/2023 9:28 AM CDT Narrative [facility] - 12/04/2023 10:05 AM CDT 1. ??Sulfasalazine and its metabolite Sulfapyridine at therapeutic concentrations may lead to falsely low results. 2. ??Temozolomide and its metabolite MTIC may lead to falsely elevated results, and its metabolite AIC may lead to falsely low results. Felipe Alvarez MD CHEMISTRY [facility] SENDOUT INTERNAL ZIP [phone] [place] [address] * US PARACENTESIS W IMAGING (12/03/2023 4:51 PM CDT) Anatomical Region Laterality Modality CHEST, Lung, THORAX Ultrasound 12/03/2023 4:51 PM CDT Impressions 12/03/2023 4:56 PM CDT 1. ??Status post ultrasound-guided paracentesis. Reference CPT Code: 48405 Narrative 12/03/2023 4:56 PM CDT For Patients: As a result of the Cures Act, medical imaging exams and procedure reports are released immediately into your electronic medical record. You may view this report before your referring provider. If you have questions, please contact your health care provider. EXAM: 1. PARACENTESIS 2. ULTRASOUND GUIDANCE LOCATION: [facility] DATE: 12/03/2023 INDICATION: Ascites. PROCEDURE: Informed consent obtained. Time out performed. The abdomen was prepped and draped in a sterile fashion. 10 mL of 1% lidocaine was infused into local soft tissues. A 5 Icelandic catheter system was introduced into the abdominal [...] EXAM: 1. PARACENTESIS 2. ULTRASOUND GUIDANCE LOCATION: [facility] DATE: 12/03/2023 INDICATION: Ascites. PROCEDURE: Informed consent obtained. Time out performed. The abdomen wasprepped and draped in a sterile fashion. 10 mL of 1% lidocaine was infusedinto local soft tissues. A 5 Icelandic catheter system was introduced intothe abdominal ascites under ultrasound guidance. 7.1 liters of clear fluid were removed and sent to lab if requested. Patient tolerated procedure well. Ultrasound imaging was obtained and placed in the patient's permanentmedical record. IMPRESSION: 1. Status post ultrasound-guided paracentesis. Reference CPT Code: 59524 Janet DELGADO US * Body Fluid Culture and Stain (12/03/2023 4:20 PM CDT) CULTURE No Growth. 12/08/2023 7:52 AM CDT [facility] GRAM STAIN 2+ PMNs 12/08/2023 7:52 AM CDT [facility] GRAM STAIN No organisms seen 12/08/2023 7:52 AM CDT [facility] GRAM STAIN No Epithelial cells 12/08/2023 7:52 AM CDT [facility] GRAM STAIN No RBCs 12/08/2023 7:52 AM CDT [facility] GRAM STAIN Gram stain performed by [place], [place] 12/08/2023 7:52 AM CDT [facility] Body Fluid PERITONEAL FLUID SPECIMEN / Unknown Non-Blood / Unknown 12/03/2023 4:20 PM CDT 12/03/2023 4:40 PM CDT Janet DELGADO MICROBIOLOGY [facility] [address] [place] [address], [facility] SENDOUT INTERNAL ZIP [address] [place] [address] * Body Fluid Cell Count and Differential (12/03/2023 4:20 PM CDT) BODY FLUID SOURCE Ascitic Fluid 12/03/2023 7:27 PM CDT [facility] BODY FLUID COLOR Yellow 12/03/2023 7:27 PM CDT [facility] BODY FLUID CLARITY Clear 12/03/2023 7:27 PM CDT [facility] TOTAL NUCLEATED CELLS, BF 85 /cu mm 12/03/2023 7:27 PM CDT [facility] RED BLOOD COUNT, BODY FLUID <2,000 /cu mm 12/03/2023 7:27 PM CDT [facility] % NEUTROPHILS, BODY FLUID 17 % 12/03/2023 7:27 PM CDT [facility] % LYMPHOCYTES, BODY FLUID 25 % 12/03/2023 7:27 PM CDT [facility] % MONO/MACRO, BODY FLUID 58 % 12/03/2023 7:27 PM CDT [facility] Body Fluid PERITONEAL FLUID SPECIMEN / Unknown Non-Blood / Unknown 12/03/2023 4:20 PM CDT 12/03/2023 4:40 PM CDT [facility] - 12/03/2023 7:27 PM CDT TO ORDER BODY FLUID CULTURES, USE; [id number] BODY FLUID CULTURE, STAIN Janet DELGADO BODY FLUID [facility] SENDOUT INTERNAL ZIP [phone] [place] [address] * Protein, Body Fluid (12/03/2023 4:20 PM CDT) SPECIMEN SOURCE Peritoneal fluid 12/03/2023 5:26 PM CDT [facility] PROTEIN,BODY FLUID 0.6 g/dL 12/03/2023 5:26 PM CDT [facility] Comment:No Reference Range D efined. Body Fluid PERITONEAL FLUID SPECIMEN / Unknown Non-Blood / Unknown 12/03/2023 4:20 PM CDT 12/03/2023 4:40 PM CDT [facility] - 12/03/2023 5:26 PM CDT Pleural: [...] Test developed & performance characteristics determined by [employer], [place], [place] consistent with CLIA requirements. Not cleared or approved by [place] FDA. Janet Torres [facility] BODY FLUID Performing Organization Address [facility]/ZIP Co de Phone Number [facility] SENDOUT INTERNAL ZIP [phone] [place] [address] * Albumin, Body Fluid (12/03/2023 4:20 PM CDT) SPECIMEN SOURCE Peritoneal fluid 12/03/2023 5:26 PM CDT [facility] ALBUMIN,BODY FLUID 0.3 g/dL 12/03/2023 5:26 PM CDT [facility] Comment:No Reference Range D efined. Body Fluid PERITONEAL FLUID SPECIMEN / Unknown Non-Blood / Unknown 12/03/2023 4:20 PM CDT 12/03/2023 4:40 PM CDT [facility] - 12/03/2023 5:26 PM CDT Peritoneal: ??SAAG >/= 1.1 g/dL indicates portal Hypertension. Pleural: ? SEAG > 1.2 g/dL is consistent with a transudative process and may ?be more accurate in patients receiving diuretic therapy. Test developed & performance characteristics determined by [employer], [place], [place] consistent with CLIA requirements. Not cleared or approved by [place] FDA. Janet JULIO BODY FLUID Performing Organization Address [facility]/ZIP Co de Phone Number [facility] SENDOUT INTERNAL ZIP [phone] [place] [address] * FERRITIN (12/03/2023 2:47 PM CDT) Pathologist [facility] FERRITIN 131.0 15.0 - 150.0 ng/mL 12/03/2023 9:31 PM CDT [facility] Blood BLOOD SPECIMEN / Unknown Venipuncture / Unknown 12/03/2023 2:47 PM CDT 12/03/2023 2:51 PM CDT Janet DELGADO CHEMISTRY [facility] [address] [place] [address], * PATH TISSUE EXAM (12/03/2023 1:23 PM CDT) [facility] Case Report Pathology Report ?Case: [id number] ? Authorizing Provider: ??Brian, Janet, SANDY ?Collected: ? 12/03/2023 1323 ? Ordering Location: ? [facility] ?Received: ?12/03/2023 1527 ? Pathologist: ? Marco Tijerina MD ? Specimens: ?? A) - Duodenal Ulcer ? B) - Gastric Biopsy, random gastric ? 4 1:56 PM CDT [facility] Final Diagnosis A) DUODENUM, ULCER, BIOPSY: [...] (Helicobacter immunohistochemistry negative) 4 1:56 PM T [facility] Comment B. Mild chronic inflammation in the stomach in the absence of Helicobacter often remains unexplained, but it could reflect prior or treated Helicobacter infection. The likelihood of histologically undetected Helicobacter is quite low in our opinion. 4 1:56 PM T [facility] Clinical Information Ms. Redmond is a 63 y.o. with hematemesis and iron deficiency anemia secondary to chronic blood loss. Upper GI endoscopy shows grade 1 esophageal varices, diffuse mild erythema throughout the stomach, and a superficial duodenal ulcer. 4 1:56 PM T [facility] Gross Description A) Received in formalin [...] 12/03/2023 4:32 PM 4 1:56 PM T [facility] Microscopic Description The final diagnosis is based on microscopic examination of appropriate sections of all specimens. 1:56 PM CDT [facility] Additional Information Interpreted at [facility] - [address], [place] [address] 1:56 PM CDT [facility] Biopsy (Duodenal Ulcer) 12/03/2023 1:23 PM CDT 12/03/2023 3:27 PM CDT Biopsy specimen (specimen) GASTRIC BIOPSY SPECIMEN / Unknown 12/03/2023 1:29 PM CDT 12/03/2023 3:27 PM CDT Janet DELGADO PATHOLOGY/CYTOLOGY [facility] [address] [place] [address], [place] * ENDOSCOPY (12/03/2023 12:57 PM CDT) 12/03/2023 12:5 7 PM CDT Narrative Transcriptions Janet Torres MBBS - 12/03/2023 2:21 PM CDT Patient Name: Monique Redmond Procedure Date: 12/03/2023 Gender: Female Date of : 1960 Admit Type: Inpatient Procedure: Upper GI endoscopy Proceduralist: Janet Torres MD - [facility] Indications/Pre-Op Diagnosis: Hematemesis, Iron deficiency anemiasecondary to chronic blood loss Medications: Propofol per Anesthesia Procedure Description: The patient had risks, benefits and alternatives explained to andgave informed consent. The patient had a stable cardiopulmonary status and judged an adequate candidate for conscious sedation. The endoscope [id number] was introduced through the mouth, and advanced [...] 11.0 thou/cu mm 12/03/2023 5:12 AM CDT [facility] RED BLOOD COUNT 2.21(L) 4.00 - 5.20 mil/cu mm 12/03/2023 5:12 AM [facility] HEMOGLOBIN 7.3(L) 12.0 - 16.0 g/dL 12/03/2023 5:12 AM T [facility] HEMATOCRIT 21.5(L) 33.0 - 51.0 % 12/03/2023 5:12 AM [facility] MCV 97 80 - 100 fL 12/03/2023 5:12 AM [facility] MCH 33.0 26.0 - 34.0 pg 12/03/2023 5:12 AM [facility] MCHC 34.0 32.0 - 36.0 g/dL 12/03/2023 5:12 AM [facility] RDW 17.2(H) 11.5 - 15.5 % 12/03/2023 5:12 AM T [facility] PLATELET COUNT 167 140 - 440 thou/cu mm 12/03/2023 5:12 AM T [facility] MPV 8.9 6.5 - 11.0 fL 12/03/2023 5:12 AM T [facility] NRBC 0.0 % 12/03/2023 5:12 AM T [facility] ABS NRBC 0.0 thou /cu mm 12/03/2023 5:12 AM T [facility] % NEUT 65.0 % 12/03/2023 5:12 AM T [facility] % LYMPH 25.6 % 12/03/2023 5:12 AM T [facility] % MONO 7.5 % 12/03/2023 5:12 AM CDT [facility] % EOS 1.0 % 12/03/2023 5:12 AM CDT [facility] % BASO 0.3 % 12/03/2023 5:12 AM CDT [facility] % IMMATURE GRAN (METAS,MYELOS,NH OS) 0.6 % 12/03/2023 5:12 AM CDT [facility] ABSOLUTE NEUTROPHILS 5.7 1.7 - 7.0 thou/cu mm 12/03/2023 5:12 AM CDT [facility] ABSOLUTE LYMPHOCYTES 2.2 0.9 - 2.9 thou/cu mm 12/03/2023 5:12 AM CDT [facility] ABSOLUTE MONOCYTES 0.7 <0.9 thou/cu mm 12/03/2023 5:12 AM CDT [facility] ABSOLUTE EOSINOPHILS 0.1 <0.5 thou/cu mm 12/03/2023 5:12 AM CDT [facility] ABSOLUTE BASOPHILS 0.0 <0.3 thou/cu mm 12/03/2023 5:12 AM CDT [facility] ABSOLUTE IMMATURE GRANULOCYTES(MET ,MYELOS,PROS) 0.1 <0.3 thou/cu mm 12/03/2023 5:12 AM CDT [facility] Blood BLOOD SPECIMEN / Unknown Butterfly / Unknown 12/03/2023 3:34 AM CDT 12/03/2023 3:37 AM CDT Adama Jett MD HEMATOLOGY [facility] SENDOUT INTERNAL ZIP [address] [place] [address] * (ABNORMAL) RED CELL MORPHOLOGY (12/03/2023 3:34 AM CDT) POLYCHROMASIA Slight 12/03/2023 5:12 AM CDT [facility] SCHISTOCYTES Few 12/03/2023 5:12 AM CDT [facility] RBC COMMENT Present(A) RBC morphology appears normal, RBC morphology within normal limits for newborns. 12/03/2023 5:12 AM CDT [facility] Blood BLOOD SPECIMEN / Unknown Butterfly / Unknown 12/03/2023 3:34 AM CDT 12/03/2023 3:37 AM CDT Adama Jett MD HEMATOLOGY [facility] SENDOUT INTERNAL ZIP [phone] [place] [address] * PLATELET ESTIMATE (12/03/2023 3:34 AM CDT) PLATELET ESTIMATE Adequate Adequate, No estimate 12/03/2023 5:12 AM CDT [facility] Blood BLOOD SPECIMEN / Unknown Butterfly / Unknown 12/03/2023 3:34 AM CDT 12/03/2023 3:37 AM CDT Adama Jett MD HEMATOLOGY Performing Organization Address [facility]/ZIP Co de Phone Number [facility] SENDOUT INTERNAL ZIP [phone] [place] [address] * (ABNORMAL) IRON PLUS IRON BINDING CAP (12/03/2023 3:34 AM CDT) IRON 49 37 - 145 ug/dL 12/03/2023 3:46 PM CDT [facility] UIBC (UNSATURATED) 67(L) 112 - 347 ug/dL 12/03/2023 3:46 PM CDT [facility] IRON BINDING CAPACITY 116(L) 250 - 400 ug/dL 12/03/2023 3:46 PM CDT [facility] IRON,% SATURATION 42 14 - 50 % 12/03/2023 3:46 PM CDT [facility] Blood BLOOD SPECIMEN / Unknown Butterfly / Unknown 12/03/2023 3:34 AM CDT 12/03/2023 3:37 AM CDT Janet JULIOBS CHEMISTRY [facility] SENDOUT INTERNAL ZIP [phone] [place] [address] * (ABNORMAL) MAGNESIUM (12/03/2023 3:34 AM CDT) MAGNESIUM 2.5(H) 1.6 - 2.4 mg/dL 12/03/2023 3:57 AM CDT [facility] Blood BLOOD SPECIMEN / Unknown Butterfly / Unknown 12/03/2023 3:34 AM CDT 12/03/2023 3:37 AM CDT Adama Jett MD CHEMISTRY [facility] SENDOUT INTERNAL ZIP [phone] [place] [address] * SCAN-CARDIAC STRIP (12/02/2023 11:58 PM CDT) Scanner OTHER * (ABNORMAL) HEPATIC FUNCTION PANEL (12/02/2023 10:56 PM CDT) ALBUMIN 2.8(L) 4.0 - 4.9 g/dL 12/02/2023 11:22 PM CDT [facility] PROTEIN,TOTAL 6.5 6.0 - 8.0 g/dL 12/02/2023 11:22 PM CDT [facility] BILIRUBIN,TOTAL 3.0(H) 0.0 - 1.2 mg/dL 12/02/2023 11:22 PM CDT [facility] BILIRUBIN,DIRECT 1.3(H) 0.0 - 0.3 mg/dL 12/02/2023 11:22 PM CDT [facility] BILIRUBIN,INDIRE CT 1.7(H) 0.2 - 0.8 mg/dL 12/02/2023 11:22 PM CDT [facility] ALK PHOSPHATASE 114(H) 35 - 104 IU/L 12/02/2023 11:22 PM CDT [facility] ALT (SGPT) 31 10 - 35 IU/L 12/02/2023 11:22 PM CDT [facility] AST (SGOT) 87(H) 10 - 35 IU/L 12/02/2023 11:22 PM CDT [facility] Blood BLOOD SPECIMEN / Unknown Venipuncture / Unknown 12/02/2023 10:56 PM CDT 12/02/2023 11:01 PM CDT Adama Jett MD CHEMISTRY [facility] SENDOUT INTERNAL ZIP [phone] [place] [address] from Last 3 Months Advance Directives * Full Code (Latest Code Status on File) Date Activated Date Inactivated Comments 12/02/2023 9:46 PM 12/06/2023 7:35 PM Question Answer Comments Code Status Discussion: Reviewed Preferences Care Teams [employer] Relationship Specialty Start Date End Date Jared Delgado MD [address] [place] [address] PCP - General Family Practice 12/04/23
--- OUTSIDE RECORDS SUMMARY | 2024-01-09 19:47 | XMS_ITS | Clinical Summary ---
Author Name Unknown Organization [facility] Address [address] [place] [address] Care Team Providers Care Curriculum Assistant Name Role Phone Elsewhere, Pcp Primary Care Provider Unavailabl e Source Comments Patient records contain information from all sites at [facility]. For routine questions regarding patient records, call [phone] during business hours, M-F 8:00 AM - 5:00 PM Central Time. Record requests for emergency care only can be directed to [phone] at any time.[facility] Allergies No known active allergies Medications Medication Sig Dispensed Refills Start Date End Date Status acetaminophen 650 mg/20.3 mL suspension Take 650 mg by mouth every 4 (four) hours as needed (for pain). No more than 2000 mg in 24 hours 11/08/2014 Active spironolactone (ALDACTONE) 100 mg tablet Take 1 tablet (100 mg total) by mouth daily. 30 tablet 2 11/22/2023 02/20/2024 Active Additional Information Patient taking differently: 50 mgoral Daily, Reported on 12/07/2023 furosemide (LASIX) 40 mg tablet Take 1 tablet (40 mg total) by mouth daily. 30 tablet 2 11/22/2023 02/20/2024 Active Additional Information Patient taking differently: 20 [...] a day. 60 tablet 2 12/09/2023 03/08/2024 Active Active Problems Problem Noted Date Diagnosed Date Alcohol Moderate Or Severe U se Disorder (Dependence) Uncomplicated 10/20/2023 Alcoholic Cirrhosis Of Liver With Ascites 2023 Encounters Date Type Department Care Team Description 12/29/2023 Clinical Communication [facility] Trans[facility] and Clinical Regeneration in [place], [place] [address] [place] [address] aKtja Umana M.D. Phone Contact (Friends and family authorization ) 12/28/2023 Clinical Communication Division of Gastroenterology in [place], [place] [address] [place] [address] Katja Umana M.D. 12/21/2023 Clinical Communication [facility] in [place], [place] [address] [place] [address] Katja Umana M.D. 12/20/2023 2:00 PM CDT Virtual Visit Department of Nicotine Dependence, [facility] in [place], [place] [address] [place] [address] Sudha Bernstein M.A., L.I.C.S.W., M.S.W. Nicotine Dependence Cigarettes With Withdrawal (Primary Dx) 12/20/2023 Orders Only Department of Nicotine Dependence, [facility] in [place], [place] [address] [place] [address] Sudha Bernstein M.A., L.I.C.S.W., M.S.W. 12/20/2023 Clinical Communication Division of Gastroenterology in [place], [place] [address] [place] [address] Katja Umana M.D. Scheduling 12/16/2023 9:34 AM CDT - 12/16/2023 11:22 AM CDT Hospital Encounter Department of Radiology, [facility], in [address] [address] Katja Umana M.D. Alcoholic Cirrhosis Of Liver With Ascites (HCC); Ascites Discharge Disposition: Home or Self Care 12/09/2023 4:30 PM CDT Office Visit [facility] Transplantation and Clinical Regeneration in [address] [address] Katja Umana M.D. Olson, Jody C, M.D. Alcoholic Cirrhosis Of Liver With Ascites (HCC) (Primary Dx); Ascites; Sarcopenia 12/08/2023 10:30 AM CDT Comprehensive Visit Section of Infectious Diseases in [address] [address] Katja Umana M.D. Mackey, Callie A, ESTEBAN, C.N.P., D.N.P. 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 Order Request 11/19/2023 10:08 AM ACCOUNTING ANALYST - 11/19/2023 12:51 PM ACCOUNTING ANALYST Hospital Encounter Department of Radiology, [facility], in [address] [address] Felipe Morales M.D. Ascites Discharge Disposition: Home or Self Care 11/18/2023 11:00 AM ACCOUNTING ANALYST Virtual Visit Department of Nicotine Dependence, [facility] in [address] [address] Sudha Bernstein M.A., L.I.C.S.W., M.S.W. Nicotine Dependence Cigarettes With Withdrawal (Primary Dx) 11/18/2023 Orders Only Department of Nicotine Dependence, [place], [place] [address] [place] [address] Sudha Bernstein M.A., DonnS.Tom, M.S.W. 11/11/2023 11:00 AM ACCOUNTING ANALYST Virtual Visit Department of Nicotine Dependence, [place], [place] [address] [place] [address] Sudha Bernstein M.A., DonnS.Dameon., M.S.W. Nicotine Dependence Cigarettes With Withdrawal (Primary Dx) 11/11/2023 Orders Only Department of Nicotine Dependence, [place], [place] [address] [place] [address] Sudha Bernstein M.A., DonnS.Tom, M.S.W. 11/11/2023 Clinical Communication Department of Nicotine Dependence, [place], [place] [address] [place] [address] Sudha Bernstein M.A., Yesy.Olga.S.W., M.S.W. [facility] Med Request 11/05/2023 9:29 AM ACCOUNTING ANALYST - 11/05/2023 12:20 PM ACCOUNTING ANALYST Hospital Encounter Department of Radiology, [place], [place] [address] [place] [phone] Felipe Morales M.D. Ascites Discharge Disposition: Home or Self Care 11/01/2023 12:28 PM ACCOUNTING ANALYST - 11/01/2023 11:59 PM ACCOUNTING ANALYST Hospital Encounter Department of Laboratory Medicine in [address] [address] Katja Umana M.D. Alcoholic Cirrhosis Of Liver With Ascites (HCC) Discharge Disposition: Home or Self Care 10/28/2023 11:00 AM ACCOUNTING ANALYST Virtual Visit Department of Nicotine Dependence, [place], [place] [address] [place] [address] Romana Diane M.D., Ph.D. Sudha Bernstein M.A., Yesy.IPetrosCPetrosS.W., M.S.W. Nicotine Dependence Cigarettes 10/28/2023 Orders Only [facility] Transplantation and Clinical [facility] in [place], [place] [address] [place] [phone] Ktaja Umana M.D. Alcoholic Cirrhosis Of Liver With Ascites (HCC) (Primary Dx) 10/28/2023 Orders Only Department of Nicotine Dependence, [facility] in [place], [place] [address] [place] [phone] Sudha Bernstein M.A., Yesy.KarrieC.S.W., M.S.W. 10/28/2023 Clinical Communication Department of Nicotine Dependence, [place], [place] [address] [place] [phone] Sudha Bernstein M.A., Yesy.I.C.S.W., M.S.W. [facility] Med Request 10/27/2023 10:26 AM ACCOUNTING ANALYST - 10/27/2023 11:59 PM ACCOUNTING ANALYST Hospital Encounter Department of Laboratory Medicine in [address] [address] Katja Umana M.D. Alcoholic Cirrhosis Of Liver With Ascites (HCC); Alcohol Moderate Or Severe Use Disorder (Dependence) Uncomplicated (HCC) Discharge Disposition: Home or Self Care 10/27/2023 10:26 AM ACCOUNTING ANALYST - 10/27/2023 11:59 PM ACCOUNTING ANALYST Hospital Encounter Department of Laboratory Medicine in [address] [address] Romana Diane M.D., Ph.D. Alcohol Moderate Or Severe Use Disorder (Dependence) Uncomplicated (HCC) Discharge Disposition: Home or Self Care 10/24/2023 Clinical Communication Division of Gastroenterology in [address] [address] Katja Umana M.D. 10/22/2023 7:27 AM ACCOUNTING ANALYST - 10/22/2023 3:44 PM ACCOUNTING ANALYST Hospital Encounter Department of Radiology, [facility], in [place], [place] [address] [place] [address] Katja Umana M.D. Ascites Discharge Disposition: Home or Self Care 10/20/2023 1:00 PM ACCOUNTING ANALYST - 10/20/2023 11:59 PM ACCOUNTING ANALYST Hospital Encounter Department of Laboratory Medicine in [address] [address] Katja Umana M.D. Ascites Discharge Disposition: Home or Self Care 10/18/2023 Clinical Communication Division of Gastroenterology in [place], [place] [address] [place] [phone] Katja Umana M.D. 10/15/2023 10:40 AM ACCOUNTING ANALYST Telemedicine Division of Gastroenterology in [place], [place] [address] [place] [address] Katja Umana M.D. 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 I have a [facility] place to live 10/15/2023 Sex and Gender Information Value Date Recorded Sex Assigned at Female 10/06/2023 10:50 AM ACCOUNTING ANALYST Gender Identity Female 10/06/2023 10:50 AM ACCOUNTING ANALYST Sexual Orientation Straight 10/06/2023 10 :50 AM ACCOUNTING ANALYST Last Filed Vital Signs Vital Sign Reading Time Taken Comments Blood Pressure 101/47 12/16/2023 10:52 AM CDT Pulse 77 12/16/2023 10:30 AM CDT Temperature 34.7 ??C (94.5 ??F) 12/09/2023 4:21 PM CD T Respiratory Rate 24 10/08/2023 4:16 PM ACCOUNTING ANALYST Oxygen Saturation 100% 12/16/2023 10:30 AM CDT [...] Department of Nutrition and Diabetes Education in [place], [place] [address] [place] [phone] Katja Umana M.D. [address] [place] [phone] Taty Cunningham M.S., RDN, LD [address] [place] [phone] 02/04/2024 2:15 PM CDT Appointment Division of Gastroenterology in [place], [place] [address] [place] [phone] Katja Umana M.D. [address] [place] [phone] Hayden Smith M.D. [address] [place] [phone] 03/21/2024 1:00 PM CDT Virtual Visit Department of Nicotine Dependence, [facility], in [place], [place] [address] [place] [phone] Health Maintenance Due Date Last Done Comments Abdominal Ultrasound 1960 CT Colonography 1960 Cologuard 1960 HIV Screening 1960 Lipid (Cholesterol) Screening 1960 Lung Cancer Screening 1960 Zoster Vaccines (1 of 2) 2010 Mammogram 01/12/2016 01/11/2015 (Perf ormed elsewhere) Colonoscopy 10/10/2020 10/10/2015, 09/2014 (Performed elsewhere) Colorectal Cancer Surveillance 10/10/2020 [...] inpatients and all outpatients) 11/19/2023 11:55 AM ACCOUNTING ANALYST Ascites CELL COUNT AND DIFFERENTIAL, BF Timed 11/19/2023 10:50 AM ACCOUNTING ANALYST Ascites BACTERIAL CULTURE, AEROBIC + SUSC Timed 11/19/2023 10:50 AM ACCOUNTING ANALYST Ascites US PARACENTESIS WITH IMAGING GUIDANCE RAD - Routine (most inpatients and all outpatients) 11/05/2023 11:25 AM ACCOUNTING ANALYST Ascites CELL COUNT AND DIFFERENTIAL, BF Timed 11/05/2023 10:07 AM ACCOUNTING ANALYST Ascites BACTERIAL CULTURE, AEROBIC + SUSC Timed 11/05/2023 10:07 AM ACCOUNTING ANALYST Ascites BASIC METABOLIC PANEL, S/P Routine 11/01/2023 12:49 PM ACCOUNTING ANALYST Alcoholic Cirrhosis Of Liver With Ascites (HCC) CONFIRMED DRUG ABUSE PANEL, U Routine 10/27/2023 10:38 AM ACCOUNTING ANALYST Alcohol Moderate Or Severe Use Disorder (Dependence) Uncomplicated (HCC) ETHYL GLUCURONIDE CONFIRMATION, U Routine 10/27/2023 10:38 AM ACCOUNTING ANALYST Alcohol Moderate Or Severe Use Disorder (Dependence) Uncomplicated (HCC) PHOSPHATIDYLETHANOL CONFIRMATION, B Routine 10/27/2023 10:33 AM ACCOUNTING ANALYST Alcohol Moderate Or Severe Use Disorder (Dependence) Uncomplicated (HCC) BASIC METABOLIC PANEL, S/P Routine 10/27/2023 10:33 AM ACCOUNTING ANALYST Alcoholic Cirrhosis Of Liver With Ascites (HCC) US PARACENTESIS WITH IMAGING GUIDANCE RAD - Routine (most inpatients and all outpatients) 10/22/2023 10:18 AM ACCOUNTING ANALYST Ascites CELL COUNT AND DIFFERENTIAL, BF Timed 10/22/2023 8:54 AM ACCOUNTING ANALYST Ascites BACTERIAL CULTURE, AEROBIC + SUSC Timed 10/22/2023 8:54 AM ACCOUNTING ANALYST Ascites BASIC METABOLIC PANEL, S/P Routine 10/20/2023 1:08 PM ACCOUNTING ANALYST Ascites HCV AB SCRN W/REFLEX TO HCV PCR, S Routine 10/06/2023 12:17 PM ACCOUNTING ANALYST Alcoholic Cirrhosis Of Liver With Ascites (HCC) COLONOSCOPY Routine 10/10/2015 2:45 PM ACCOUNTING ANALYST from Last 3 Months or Most Recently Relevant to Health Maintenance Results * US Paracentesis with Imaging Guidance (12/16/2023 10:53 AM CDT) Only the most recent of4 resultswithin the time period is included. Anatomical [...] CDT Katja Umana M.D. LAB BLOOD ADD-ON [facility] [address] [place] [address], [facility] DTL [facility] [address] [place] [address] * (ABNORMAL) CBC with Differential, Blood (12/09/2023 [...] CDT Katja Umana M.D. LAB BLOOD ADD-ON [facility] [address] [place] [address], [place] DTL [facility] [address] [place] [address] [facility] [address] [place] [address] * (ABNORMAL) Comprehensive Metabolic Panel (12/09/2023 5:16 PM CDT) [facility] Potassium, S 5.0 3.6 - 5.2 mmol/L [...] CDT Katja Umana M.D. LAB BLOOD ADD-ON [facility] [address] [place] [address], [address] [address] * Bacterial Culture, Aerobic + Susceptibility (11/19/2023 10:50 AM ACCOUNTING ANALYST) Only the most recent of3 resultswithin the time period is included. Bacterial Culture, Aerobic + Susc No growth after 5 days of incubation. 11/24/2023 8:27 AM CDT DTL Fluid (Peritoneal Fluid) 11/19/2023 10:50 AM ACCOUNTING ANALYST Narrative [facility] - 11/24/2023 8:27 AM CDT Bacterial Culture: Received Bactec aerobic and Bactec anaerobic bottles Felipe Morales M.D. LAB MICROBIOLOGY - GENERAL ORDERABLES [facility] [address] [place] [address], [place] [address] * Cell Count and Differential, Body Fluid (11/19/2023 10:50 AM ACCOUNTING ANALYST) Only the most recent of3 resultswithin the time period is included. Fluid Type Peritoneal /Paracente sis 11/19/2023 12:39 PM ACCOUNTING ANALYST [facility] Gross Appearance Serous 11/19/19 12:39 PM ACCOUNTING ANALYST [facility] Total Nucleated Cells 201 /mcL 11/19/2023 12:39 PM ACCOUNTING ANALYST [facility] Comment: ----REFERENCE VALUE---- Synovial: <150 /mcL Peritoneal: <500 /mcL Pleural: <500 /mcL Pericardial: <500 /mcL ----ADDITIONAL INFORMATION---- This test has been modified from the application developer's instructions. Its performance characteristics were determined by [facility] in a manner consistent with CLIA requirements. This test has not been cleared or approved by the U.S. Food and Drug Administration. Neutrophils 20 % 11/19/2023 1:42 PM ACCOUNTING ANALYST [facility] Comment: ----REFERENCE VALUE---- Synovial: <25% Peritoneal: <25% Pleural: <25% Pericardial: <25% Lymphocytes 16 Synovial <75% % 11/19/2023 1:42 PM ACCOUNTING ANALYST [facility] Monocytes/Macropha ges 60 Synovial <70% % 11/19/2023 1:42 PM ACCOUNTING ANALYST [facility] Other Cells 4 % 11/19/2023 1:42 PM ACCOUNTING ANALYST [facility] Comment: ----REFERENCE VALUE---- The reference range and other method performance specifications have not been established for this bodyfluid. The test result must be integrated into the clinical context for interpretation. Other Cells Are: See Comment 11/19/2023 1:42 PM ACCOUNTING ANALYST [facility] Comment:Mesothelial cells Comment See Comment 11/19/2023 1:42 PM ACCOUNTING ANALYST [facility] Comment:No blasts or maligna nt cells seen. Reviewed by: Jose 11/19/2023 1:42 PM ACCOUNTING ANALYST [facility] Fluid (Peritoneal Fluid) 11/19/2023 10:50 AM ACCOUNTING ANALYST Felipe Morales M.D. LAB BODY FLUIDS AND STOOLS ORDERABLES [facility] [address] [place] [address], [facility] [address] [place] [address] * (ABNORMAL) Basic Metabolic Panel (11/01/2023 12:49 PM ACCOUNTING ANALYST) Only the most recent of3 resultswithin the time period is included. Potassium, P 4.1 3.6 - 5.2 mmol/L 11/01/2023 1:13 PM ACCOUNTING ANALYST [facility] Sodium, P 128(L) 135 - 145 mmol/L 11/01/2023 1:13 PM ACCOUNTING ANALYST [facility] Chloride, P 95(L) 98 - 107 mmol/L 11/01/2023 1:13 PM ACCOUNTING ANALYST [facility] Bicarbonate, P 26 22 - 29 mmol/L 11/01/2023 1:13 PM ACCOUNTING ANALYST [facility] Anion Gap, P 7 7 - 15 11/01/2023 1:13 PM ACCOUNTING ANALYST [facility] BUN (Blood Urea Nitrogen), P 10 6 - 21 mg/dL 11/01/2023 1:13 PM ACCOUNTING ANALYST [facility] Creatinine 0.42(L) 0.59 - 1.04 mg/dL 11/01/2023 1:13 PM ACCOUNTING ANALYST [facility] Estimated GFR (eGFR) >90 >=60 mL/min/BSA 11/01/2023 1:13 PM ACCOUNTING ANALYST [facility] Comment: Estimated GFR calculated using the 2020 CKD_EPI creatinine equation. Calcium, Total, P 8.3(L) 8.8 - 10.2 mg/dL 11/01/2023 1:13 PM ACCOUNTING ANALYST [facility] Glucose, P 105 70 - 140 mg/dL 11/01/2023 1:13 PM ACCOUNTING ANALYST [facility] Blood (Blood, Venous) 11/01/2023 12:49 PM ACCOUNTING ANALYST 11/01/2023 12:54 PM ACCOUNTING ANALYST Katja Umana M.D. LAB BLOOD ADD-ON [facility] [address] [place], [place] [id number], [facility] CNFL [facility] in [address] [address] * Ethyl Glucuronide Confirmation, Random, Urine (10/27/2023 10:38 AM ACCOUNTING ANALYST) Ethyl Glucuronide Confirmation, U Negative Cutoff: 250 ng/mL 10/29/2023 8:19 AM ACCOUNTING ANALYST [facility] Ethyl Sulfate Negative Cutoff: 100 ng/mL 10/29/2023 8:19 AM ACCOUNTING ANALYST [facility] Ethyl Gluc/Sulfate Interpretation Negative. 10/29/2023 8:19 AM ACCOUNTING ANALYST [facility] Comment: ----ADDITIONAL INFORMATION---- This report is intended for use in clinical monitoring and management of patients. ??It is not intended for use in employment-related testing. This test was developed and its performance characteristics determined by [facility] in a manner consistent with CLIA requirements. This test has not been cleared or approved by the U.S. Food and Drug Administration. Urine (Urine, Midstream) 10/27/2023 10:38 AM ACCOUNTING ANALYST 10/27/2023 10:00 PM [facility] Romana Diane M.D., Ph.D. LAB URI NE ORDERABLES [facility] [address] [place] [address] [facility] [address] [place] [address] [place] [address] * Drug Abuse Survey with Confirmation, Urine (10/27/2023 10:38 AM [facility]) Alcohol Negative Cutoff: 10 mg/dL 10/28/2023 9:08 AM [facility] Amphetamines Negative Cutoff: 500 ng/mL 10/28/2023 9:08 AM [facility] Barbiturates Negative Cutoff: 200 ng/mL 10/28/2023 9:08 AM [facility] Benzodiazepines Negative Cutoff: 100 ng/mL 10/28/2023 9:08 AM [facility] Cocaine Negative Cutoff: 150 ng/mL 10/28/2023 9:08 AM [facility] Comment: This cocaine immunoassay targets benzoylecgonine the primary metabolite of cocaine. Opiates Negative Cutoff: 300 ng/mL 10/28/2023 9:08 AM [facility] Phencyclidine Negative Cutoff: 25 ng/mL 10/28/2023 9:08 AM [facility] Tetrahydrocannabinol Negative Cutoff: 50 ng/mL 10/28/2023 9:08 AM [facility] Comment: This immunoassay targets delta-9 tetrahydrocannabinol carboxylic acid (THC-COOH), a metabolite of delta-9 tetrahydrocannabinol the main psychoactive ingredient of marijuana. ----ADDITIONAL INFORMATION---- This report is intended for use in clinical monitoring or management of patients. ??It is not intended for use in employment-related testing. Urine (Urine, Midstream) 10/27/2023 10:38 AM ACCOUNTING ANALYST 10/27/2023 10:03 PM ACCOUNTING ANALYST Romana Diane M.D., Ph.D. LAB URI NE ORDERABLES [facility] [address] [place] [address] [facility] [address] [place] [address] [place] [address] * Phosphatidylethanol Confirmation (10/27/2023 10:33 AM ACCOUNTING ANALYST) PEth 16:0/18:1 (POPEth) by LC-MS/MS <20 Cutoff: 10 ng/mL 10/29/2023 8:22 PM ACCOUNTING ANALYST SDS Comment: Testing performed at a x2 [...] <10 Cutoff: 10 ng/mL 10/29/2023 8:22 PM ACCOUNTING ANALYST [facility] Comment: PEth 16:0/18:2 (PLPEth) Reference ranges are not well established PEth Interpretation Negative. 10/29 8:22 PM ACCOUNTING ANALYST SDS Comment: ----ADDITIONAL INFORMATION---- This report is intended for use in clinical monitoring and management of patients. ??It is not intended for use in employment-related testing. This test was developed and its performance characteristics determined by [facility] in a manner consistent with CLIA requirements. This test has not been cleared or approved by the U.S. Food and Drug Administration. Blood (Blood, Venous) 10/27/2023 10:33 AM ACCOUNTING ANALYST 10/27/2023 9:57 PM ACCOUNTING ANALYST Romana Diane M.D., Ph.D. LAB BLO OD ADD-ON [facility] [address] [place] [address] [facility] [address] [place] [address] [place] [address] * HCV Ab Scrn w/Reflex to HCV PCR, Serum (10/06/2023 12:17 PM ACCOUNTING ANALYST) HCV Ab Screen, S Negative Negative 10/06/2023 9:12 PM ACCOUNTING ANALYST [facility] Comment:Ijigvg-od-vsouog rat io is <1.00. Blood (Blood, Venous) 10/06/2023 12:17 PM ACCOUNTING ANALYST 10/06/2023 3:57 PM ACCOUNTING ANALYST Katja Umana M.D. LAB MICROBIOLOGY - B LOOD ORDERABLES Performing Organization Address [facility]/ZIP Co de Phone Number [facility] [address] [place] [address] [facility] [address] [place] [address] * Colonoscopy (10/10/2015 2:45 PM ACCOUNTING ANALYST) 10/10/2015 2:45 PM ACCOUNTING ANALYST Tanner Calderón GI PROCEDURE [facility] [address] [place] [address], [facility] from Last 3 Months or Most Recently Relevant to Health Maintenance Care Teams Curriculum Assistant Relationship Specialty Start Date End Date Elsewhere, Pcp PCP - General Family Medicine 12/07/23
--- OUTSIDE RECORDS SUMMARY | 2024-01-09 19:47 | XMS_ITS | Continuity of Care Document ---
Author Name Unknown Organization [facility] Address [address] [address] [place] [address] Phone Care Team Providers Care Vp Design Name Role Phone No Information Unavailable Unavailable Procedures Procedure Date Subsqt Hosp-da E&m Minr Compl 4 Subsqt Hosp-da E&m Minr Compl 4 Subsqt Hosp-da E&m Minr Compl 4 Init Inpt Cons New/est Mod-hi 4 Ugi Endo; W/bx 1/mx Ugi Endo; W/contrl Bleed Any M 24 Advance Directives Directive Yes / No Effective Date File Name No Information Encounters Encounter Description Practice Location Reason(s) For Visit Diagnoses Date Provider Providers Copied on Encounter [facility] [place], [address] [address], [place], [place], [id number], [place] tel:[phone] No Information Dec-0 4 No Information Subsqt Hosp-da E&m Minr Compl [facility] [place], [address] [address], [place], [place], [id number], [place] tel:[phone] [facility] No Information 4 Dino Guzman. [address] [place] [address], [id number], [place]. tel:[phone] Referring Provider: Thomas Sun MD, [address] [place] [address], [address]. tel:[phone] Subsqt Hosp-da E&m Minr Compl [facility] [place], [address] [address], [place], [id number], tel:[phone] [facility] No Information 4 Kirsty Minor. [address] [place] [address], [address], [id number], . tel:[phone] Referring Provider: Iván Strauss, [address] [place] [address], [address]. tel:[phone] Init Inpt Cons New/est Mod-hi [facility], [address] [address], [place], [place], [id number], tel:[phone] [facility] Esophageal varices determined by endoscopy 4 Brian Gonzales. [address] [place] [address], [address], [id number], . tel:[phone] Referring Provider: Janet Torres MD, [address] [place] [address], [address]. tel:[phone] Family History Family Member Type Diagnosis Age At Onset No Information Payers Payer name Insurance type Covered republican ID Authoriza tion(s) No Information Social History Type Description Quantity Date Captured Comments Sex Female Smoking Status No Information Chief Complaint And Reason For Visit No Information Reason For Referral Reason For Referral No Information Plan Of Treatment Date Type Action Status Referral Ordered: follow-up visit with hepatology 2 Months Appointment date/timeframe: 2 Months ordered History Of Present Illness Encounter Date Complaint History Of Prese nt Illness No Information Functional Status Date Functional Assessmen t No Information Instructions Date Instruction Additional Infor mation No Information Assessments Type Assessment Date No Information Patient Care Teams Name Effective Dates (start - stop) Status Members No Information
[2024-01-09 19:48] LABS: Slide Review Reflex No
--- OUTSIDE RECORDS SUMMARY | 2024-01-09 19:48 | XMS_ITS | Encounter Summary ---
Author Name Unknown Organization [facility] Address [address] [place] [address] Care Team Providers Care Skein Winding Operator Name Role Phone Elsewhere, Pcp Primary Care Provider Unavailabl e Reason for Referral * Outpatient (Routine) - Authorized Specialty Diagnoses / Procedures Referred By Contlulu t Referred To Contact Nicotine Dependence Sudha Bernstein M.A., DonnSChandrakant, M.S.W. [address] [place] [phone] [facility] Referral ID Status Reason Start Date Expiration Date V isits Requested Visits Authorized [id number] Authorized 12/20/2023 06/20/2025 1 1 Scheduling Instructions Please schedule this patient for a follow up phone visit on March 21. No need to call it can just be added to my calendar. Encounter Details Date Type Department Care Team (Late st Contact Info) Description 12/20/2023 Orders Only Department of Nicotine Dependence, [facility], in [place], [place] [address] [place] [phone] Sudha Bernstein M.A., AvelIPetrosC.S.W., M.S.W. [address] [place] [phone] Social History Tobacco Use Types Packs/Day Years Used Date Smoking Tobacco: Every Day Cigarettes 0.5 40.9 Started: 02/11/1983 Passive Smoke Exposure: Never Smokeless Tobacco: Never Alcohol Use Standard Drinks/Week Comments Not Currently 0 (1 standard drink = 0.6 oz pur e alcohol) [facility] Utilities Answer Date Recorded In [...] Sex Assigned at Female 10/06/2023 10:50 AM REMOTE BROADCAST TECHNICIAN Gender Identity Female 10/06/2023 10:50 AM REMOTE BROADCAST TECHNICIAN Sexual Orientation Straight 10/06/2023 10 :50 AM REMOTE BROADCAST TECHNICIAN documented as of this encounter Plan of Treatment Upcoming Encounters Date Type Department Care Team (Late st Contact Info) Description 01/19/2024 10:00 AM CDT Telemedicine Department of Nutrition and Diabetes Education in [place], [place] [address] [place] [phone] Katja Umana M.D. [address] [place] [phone] Taty Cunningham M.S., RDN, LD [address] [place] [phone] 02/04/2024 2:15 PM CDT Appointment Division of Gastroenterology in [address] [phone] Katja Umana M.D. [address] [place] [phone] Hayden Smtih M.D. [address] [place] [phone] 03/21/2024 1:00 PM CDT Virtual Visit Department of Nicotine Dependence, [facility] in [address] [phone] Scheduled Referrals Name Type Priority Associated Diagnoses Order Schedule Nicotine Dependence office visit (clinic) Outpatient Referral Routine Expected: 03/21/2024, Expires: 03/20/2025 documented as of this encounter Visit Diagnoses Not on filedocumented in this encounter Additional Health Concerns Assessment Noted Time PHQ-9 Depression Total Score: 3 10/20/19 24 7:30 AM REMOTE BROADCAST TECHNICIAN documented as of this encounter Care Teams Skein Winding Operator Relationship Specialty Start Date End Date Elsewhere, Pcp PCP - General Family Medicine 12/07/23 documented as of this encounter
--- OUTSIDE RECORDS SUMMARY | 2024-01-09 19:48 | XMS_ITS | Encounter Summary ---
Author Name Unknown Organization [facility] Address [address] [place] [address] Care Team Providers Care Restaurant Management Internship Name Role Phone Elsewhere, Pcp Primary Care Provider Unavailabl e Reason for Visit * Reason Onset Date Comments Pre-visit Intake 12/07/2023 Encounter Details Date Type Department Care Team (Latest Contact Info) Description 12/07/2023 1:45 PM CDT Clinical Communication Virtual Review in [place], [place] 200 [place] [address] Pre-visit Intake Social History Tobacco Use Types Packs/Day Years Used Date Smoking Tobacco: Every Day Cigarettes 0.5 40.9 Started: 02/11/1983 Passive Smoke Exposure: Never Smokeless Tobacco: Never Alcohol Use Standard Drinks/Week Comments Not Currently 0 (1 standard drink = 0.6 oz pur e alcohol) [facility] Utilities Answer Date Recorded In the [...] Date Recorded Employment status Working with temporary [employer] 10/15/2023 Housing Stability Answer Date Recorded What is your living situation today? I have a [facility] place to live 10/15/2023 Sex and Gender Information Value Date Recorded Sex Assigned at Female 10/06/2023 10:50 AM PUBLIC HEALTH EPIDEMIOLOGIST Gender Identity Female 10/06/2023 10:50 AM PUBLIC HEALTH EPIDEMIOLOGIST Sexual Orientation Straight 10/06/2023 10 :50 AM PUBLIC HEALTH EPIDEMIOLOGIST documented as of this encounter Plan of Treatment Upcoming Encounters Date Type Department Care Team (Late st Contact Info) Description 01/19/2024 10:00 AM CDT Telemedicine Department of Nutrition and Diabetes Education in [place], [place] [address] [place] [phone] Katja Umana M.D. 200 [place] [phone] Taty Cunningham M.S., RDN, LD 200 [place] [phone] 02/04/2024 2:15 PM CDT Appointment Division of Gastroenterology in [place], [place] [address] [place] [phone] Katja Umana M.D. 200 [place] [phone] Hayden Smith M.D. [address] [place] [address] 03/21/2024 1:00 PM CDT Virtual Visit Department of Nicotine Dependence, [facility], in [place], [place] [address] [place] [address] documented as of this encounter Visit Diagnoses Not on filedocumented in this encounter Additional Health Concerns Assessment Noted Time PHQ-9 Depression Total Score: 3 10/20/19 24 7:30 AM PUBLIC HEALTH EPIDEMIOLOGIST documented as of this encounter Care Teams Restaurant Management Internship Relationship Specialty Start Date End Date Elsewhere, Pcp PCP - General Family Medicine 12/07/23 documented as of this encounter
--- OUTSIDE RECORDS SUMMARY | 2024-01-09 19:48 | XMS_ITS | Encounter Summary ---
Author Name Unknown Organization [facility] Address [address] [place] [address] Care Team Providers Care Mold Car Pusher Name Role Phone Elsewhere, Pcp Primary Care Provider Unavailabl e Reason for Visit * Reason Onset Date Comments Phone Contact 12/29/2023 Friends and fami ly authorization Encounter Details Date Type Department Care Team (Latest Contact Info) Description 12/29/2023 Clinical Communication [facility] [place], [place] [address] [place] [address] Katja Umana M.D. [address] [place] [phone] Phone Contact (Friends and family authorization ) Social History Tobacco Use Types Packs/Day Years Used Date Smoking Tobacco: Every Day Cigarettes 0.5 40.9 Started: 02/11/1983 Passive Smoke Exposure: Never Smokeless Tobacco: Never Alcohol Use Standard Drinks/Week Comments Not Currently 0 (1 standard drink = 0.6 oz pur e alcohol) [facility] Utilities Answer Date Recorded In the past 12 months has [employer], gas, oil, or water [employer] threatened to shut off services in your [...] Date Recorded Employment status Working with temporary [employer] 10/15/2023 Housing Stability Answer Date Recorded What is your living situation today? I have a [facility] place to live 10/15/2023 Sex and Gender Information Value Date Recorded Sex Assigned at Female 10/06/2023 10:50 AM SECURITY DELIVERY SPECIALIST Gender Identity Female 10/06/2023 10:50 AM SECURITY DELIVERY SPECIALIST Sexual Orientation Straight 10/06/2023 10 :50 AM SECURITY DELIVERY SPECIALIST documented as of this encounter Plan of Treatment Upcoming Encounters Date Type Department Care Team (Late st Contact Info) Description 01/19/2024 10:00 AM CDT Telemedicine Department of Nutrition and Diabetes Education in [place], [place] [address] [place] [phone] Katja Umana M.D. [address] [place] [phone] Taty Cunningham M.S., RDN, LD [address] [place] [address] 02/04/2024 2:15 PM CDT Appointment Division of Gastroenterology in [place], [place] [address] [place] [address] Katja Umana M.D. [address] [place] [phone] Hayden Smith M.D. [address] [place] [address] 03/21/2024 1:00 PM CDT Virtual Visit Department of Nicotine Dependence, [facility], in [place], [place] [address] [place] [address] documented as of this encounter Visit Diagnoses Not on filedocumented in this encounter Additional Health Concerns Assessment Noted Time PHQ-9 Depression Total Score: 3 10/20/19 24 7:30 AM SECURITY DELIVERY SPECIALIST documented as of this encounter Care Teams Mold Car Pusher Relationship Specialty Start Date End Date Elsewhere, Pcp PCP - General Family Medicine 12/07/23 documented as of this encounter
--- OUTSIDE RECORDS SUMMARY | 2024-01-09 19:48 | XMS_ITS | Encounter Summary ---
Author Name Unknown Organization [facility] Address [address] [place] [address] Care Team Providers Care Dielectric Press Operator Name Role Phone Elsewhere, Pcp Primary Care Provider Unavailabl e Reason for Referral * Outpatient (Routine) - Authorized Specialty Diagnoses / Procedures Referred By Dotty t Referred To Contact Diagnoses Ascites Procedures US Paracentesis with Imaging Guidance Katja Umana M.D. [address] [place] [phone] [facility] Referral ID Status Reason Start Date Expiration Date V isits Requested Visits Authorized [id number] Authorized 12/30/2023 12/29/2024 4 4 Encounter Details Date Type Department Care Team (Latest Contact Info) Description 12/28/2023 Clinical Communication Division of Gastroenterology in [place], [place] [address] [place] [phone] Katja Umana M.D. [address] [place] [phone] Social History Tobacco Use Types Packs/Day Years Used Date Smoking Tobacco: Every Day Cigarettes 0.5 40.9 Started: 02/11/1983 Passive Smoke Exposure: Never Smokeless Tobacco: Never Alcohol Use Standard Drinks/Week Comments Not Currently 0 (1 standard drink = 0.6 oz pur e alcohol) [facility] Utilities Answer Date Recorded In [...] your living situation today? I have a [facility] place to live 10/15/2023 Sex and Gender Information Value Date Recorded Sex Assigned at Female 10/06/2023 10:50 AM CLERK TELEGRAPH SERVICE Gender Identity Female 10/06/2023 10:50 AM CLERK TELEGRAPH SERVICE Sexual Orientation Straight 10/06/2023 10 :50 AM CLERK TELEGRAPH SERVICE documented as of this encounter Plan of Treatment Upcoming Encounters Date Type Department Care Team (Late st Contact Info) Description 01/19/2024 10:00 AM CDT Telemedicine Department of Nutrition and Diabetes Education in [place], [place] 200 [place] [address] Katja Umana M.D. [address] [place] [phone] Taty Cunningham M.S., RDN, LD [address] [place] [phone] 02/04/2024 2:15 PM CDT Appointment Division of Gastroenterology in [place], [place] [address] [place] [phone] Katja Umana M.D. [address] [place] [phone] Hayden Smith M.D. [address] [place] [phone] 03/21/2024 1:00 PM CDT Virtual Visit Department of Nicotine Dependence, [facility], in [place], [place] [address] [place] [phone] Scheduled Orders Name Type Priority Associated Diagnoses Order Schedule US Paracentesis with Imaging Guidance Imaging RAD - Routine (most inpatients and all outpatients) Ascites Expected: 01/13/2024, Expires: 03/30/2025 documented as of this encounter Visit Diagnoses Diagnosis Ascites- Primary documented in this encounter Additional Health Concerns Assessment Noted Time PHQ-9 Depression Total Score: 3 10/20/19 24 7:30 AM CLERK TELEGRAPH SERVICE documented as of this encounter Care Teams Dielectric Press Operator Relationship Specialty Start Date End Date Elsewhere, Pcp PCP - General Family Medicine 12/07/23 documented as of this encounter
--- OUTSIDE RECORDS SUMMARY | 2024-01-09 19:48 | XMS_ITS | Encounter Summary ---
Author Name Unknown Organization [facility] Address [address] [place] [address] Care Team Providers Care Manager Economic Name Role Phone Elsewhere, Pcp Primary Care Provider Unavailabl e Reason for Referral * Outpatient (Routine) - Authorized Specialty Diagnoses / Procedures Referred By Contac t Referred To Contact Diagnoses Alcoholic Cirrhosis Of Liver With Ascites (HCC) Ascites Procedures US Paracentesis with Imaging Guidance Katja Umana M.D. 200 [place] [address] [facility] Referral ID Status Reason Start Date Expiration Date V isits Requested Visits Authorized [id number] Authorized 12/09/2023 12/08/2024 8 8 Reason for Visit * Outpatient (Routine) - Authorized Specialty Diagnoses / Procedures Referred By Dotty oakes Referred To Contact Diagnoses Alcoholic Cirrhosis Of Liver With Ascites (HCC) Ascites Procedures US Paracentesis with Imaging Guidance Katja Umana M.D. 200 [place] [address] [facility] Referral ID Status Reason Start Date Expiration Date V isits Requested Visits Authorized [id number] Authorized 12/09/2023 12/08/2024 8 8 Encounter Details Date Type Department Care Team (Latest Contact Info) Description 12/16/2023 9:34 AM CDT - 12/16/2023 11:22 AM CDT Hospital Encounter Department of Radiology, [facility], in [place], [place] [address] [place] [address] Katja Umana M.D. [address] [place] [address] Alcoholic Cirrhosis Of Liver With Ascites (HCC); Ascites Discharge Disposition: Home or Self Care Social History Tobacco Use Types Packs/Day Years Used Date Smoking Tobacco: Every Day Cigarettes 0.5 40.9 Started: 02/11/1983 Passive Smoke Exposure: Never Smokeless Tobacco: Never Alcohol Use Standard Drinks/Week Comments Not Currently 0 (1 standard drink = 0.6 oz pur e alcohol) [facility] Utilities Answer Date Recorded In the [...] your living situation today? I have a [facility] place to live 10/15/2023 Sex and Gender Information Value Date Recorded Sex Assigned at Female 10/06/2023 10:50 AM SUPPLIER RELATIONSHIP DIRECTOR Gender Identity Female 10/06/2023 10:50 AM SUPPLIER RELATIONSHIP DIRECTOR Sexual Orientation Straight 10/06/2023 10 :50 AM SUPPLIER RELATIONSHIP DIRECTOR documented as of this encounter Last Filed [...] be sent through Care Everywhere. * Paracentesis ([place] Zeal[place]) documented in this encounter Medications at Time [...] Department of Nutrition and Diabetes Education in [place], [place] [address] [place] [phone] Katja Umana M.D. [address] [place] [phone] Taty Cunningham M.S., RDN, LD [address] [place] [phone] 02/04/2024 2:15 PM CDT Appointment Division of Gastroenterology in [place], [place] [address] [place] [phone] Katja Umana M.D. [address] [place] [phone] Hayden Smith M.D. [address] [place] [phone] 03/21/2024 1:00 PM CDT Virtual Visit Department of Nicotine Dependence, [facility], in [place], [place] [address] [place] [phone] documented as of this encounter Procedures Procedure [...] IMPRESSION: Ultrasound-guided paracentesis. EP Katja Umana M.D. IMSally US PROCEDURES documented in this encounter Visit [...] Total Score: 3 10/20/19 24 7:30 AM SUPPLIER RELATIONSHIP DIRECTOR documented as of this encounter Care Teams Manager Economic Relationship Specialty Start Date End Date Elsewhere, Pcp PCP - General Family Medicine 12/07/23 documented as of this encounter
--- OUTSIDE RECORDS SUMMARY | 2024-01-09 19:48 | XMS_ITS | Encounter Summary ---
Author Name Unknown Organization [facility] Address [address] [place] [address] Care Team Providers Care Septic Tank Installer Name Role Phone Elsewhere, Pcp Primary Care Provider Unavailabl e Reason for Visit * Reason Onset Date Comments Scheduling 12/20/2023 Encounter Details Date Type Department Care Team (Latest Contact Info) Description 12/20/2023 Clinical Communication Division of Gastroenterology in [place], [place] [address] [place] [address] Katja Umana M.D. [address] [place] [phone] Scheduling Social History Tobacco Use Types Packs/Day Years Used Date Smoking Tobacco: Every Day Cigarettes 0.5 40.9 Started: 02/11/1983 Passive Smoke Exposure: Never Smokeless Tobacco: Never Alcohol Use Standard Drinks/Week Comments Not Currently 0 (1 standard drink = 0.6 oz pur e alcohol) [facility] Utilities Answer Date Recorded In the past 12 months has [employer], gas, oil, or water [employer] threatened to shut off services in your [...] Date Recorded Employment status Working with temporary [employer] 10/15/2023 Housing Stability Answer Date Recorded What is your living situation today? I have a [facility] place to live 10/15/2023 Sex and Gender Information Value Date Recorded Sex Assigned at Female 10/06/2023 10:50 AM INSURANCE ADJUSTOR Gender Identity Female 10/06/2023 10:50 AM INSURANCE ADJUSTOR Sexual Orientation Straight 10/06/2023 10 :50 AM INSURANCE ADJUSTOR documented as of this encounter Plan of Treatment Upcoming Encounters Date Type Department Care Team (Late st Contact Info) Description 01/19/2024 10:00 AM CDT Telemedicine Department of Nutrition and Diabetes Education in [place], [place] [address] [place] [phone] Katja Umana M.D. 200 [place] [phone] Taty Cunningham M.S., RDN, LD [address] [place] [phone] 02/04/2024 2:15 PM CDT Appointment Division of Gastroenterology in [place], [place] [address] [place] [phone] Katja Umana M.D. [address] [place] [phone] Hayden Smith M.D. [address] [place] [phone] 03/21/2024 1:00 PM CDT Virtual Visit Department of Nicotine Dependence, [facility], in [place], [place] [address] [place] [phone] documented as of this encounter Visit Diagnoses Not on filedocumented in this encounter Additional Health Concerns Assessment Noted Time PHQ-9 Depression Total Score: 3 10/20/19 24 7:30 AM INSURANCE ADJUSTOR documented as of this encounter Care Teams Septic Tank Installer Relationship Specialty Start Date End Date Elsewhere, Pcp PCP - General Family Medicine 12/07/23 documented as of this encounter
--- OUTSIDE RECORDS SUMMARY | 2024-01-09 19:48 | XMS_ITS | Referral Summary ---
Author Name Unknown Organization [facility] Address [address] [place] [address] Care Team Providers Care Household Manager Name Role Phone Elsewhere, Pcp Primary Care Provider Unavailabl e Source Comments Patient records contain information from all sites at [facility]. For routine questions regarding patient records, call [phone] during business hours, M-F 8:00 AM - 5:00 PM Central Time. Record requests for emergency care only can be directed to [phone] at any time.[facility] Encounters Date Type Department Care Team Description 12/29/2023 Clinical Communication [facility] [place], [place] [address] [place] [address] Katja Umana M.D. Phone Contact (Friends and family authorization ) 12/28/2023 Clinical Communication Division of Gastroenterology in [place], [place] [address] [place] [address] Katja Umana M.D. 12/21/2023 Clinical Communication [facility] in [place], [place] [address] [place] [address] Katja Umana M.D. 12/20/2023 Orders Only Department of Nicotine Dependence, [facility], in [place], [place] [address] [place] [address] Sudha Bernstein M.A., L.I.C.S.W., M.S.W. 12/20/2023 Clinical Communication Division of Gastroenterology in [place], [place] [address] [place] [phone] Katja Umana M.D. Scheduling 12/20/2023 2:00 PM CDT Virtual Visit Department of Nicotine Dependence, [facility] in [address] [address] Sudha Bernstein M.A., L.I.C.S.W., M.S.W. Nicotine Dependence Cigarettes With Withdrawal (Primary Dx) 12/16/2023 9:34 AM CDT - 12/16/2023 11:22 AM CDT Hospital Encounter Department of Radiology, [facility] in [place], [place] [address] [place] [phone] Katja Umana M.D. Alcoholic Cirrhosis Of Liver With Ascites (HCC); Ascites Discharge Disposition: Home or Self Care 12/09/2023 4:30 PM CDT Office Visit [facility] for Trans[facility] Clinical Regeneration in [address] [address] Katja Umana M.D. Olson, Jody C, M.D. Alcoholic Cirrhosis Of Liver With Ascites (HCC) (Primary Dx); Ascites; Sarcopenia 12/08/2023 10:30 AM CDT Comprehensive Visit Section of Infectious Diseases in [address] [address] Katja Umana M.D. Mackey, Callie A, ESTEBAN, C.N.P., D.N.P. 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 Order Request 11/19/2023 10:08 AM SPOT CHECKER - 11/19/2023 12:51 PM SPOT CHECKER Hospital Encounter Department of Radiology, [facility], in [place], [place] [address] [place] [address] Felipe Morales M.D. Ascites Discharge Disposition: Home or Self Care 11/18/2023 Orders Only Department of Nicotine Dependence, [place], [place] [address] [place] [address] Sudha Bernstein M.A., Yesy.I.C.S.W., M.S.W. 11/18/2023 11:00 AM SPOT CHECKER Virtual Visit Department of Nicotine Dependence, [place], [place] [address] [place] [address] Suhda Bernstein M.A., Yesy.I.C.S.W., M.S.W. Nicotine Dependence Cigarettes With Withdrawal (Primary Dx) 11/11/2023 Orders Only Department of Nicotine Dependence, [place], [place] [address] [place] [address] Sudha Bernstein M.A., Yesy.I.C.S.W., M.S.W. 11/11/2023 Clinical Communication Department of Nicotine Dependence, [place], [place] [address] [place] [address] Sudha Bernstein M.A., Yesy.I.C.S.W., M.S.W. NDC Med Request 11/11/2023 11:00 AM SPOT CHECKER Virtual Visit Department of Nicotine Dependence, [place], [place] [address] [place] [address] Sudha Bernstein M.A., Yesy.I.C.S.W., M.S.W. Nicotine Dependence Cigarettes With Withdrawal (Primary Dx) 11/05/2023 9:29 AM SPOT CHECKER - 11/05/2023 12:20 PM SPOT CHECKER Hospital Encounter Department of Radiology, [facility], in [place], [place] [address] [place] [address] Felipe Morales M.D. Ascites Discharge Disposition: Home or Self Care 11/01/2023 12:28 PM SPOT CHECKER - 11/01/2023 11:59 PM SPOT CHECKER Hospital Encounter Department of Laboratory Medicine in [address] [address] Katja Umana M.D. Alcoholic Cirrhosis Of Liver With Ascites (HCC) Discharge Disposition: Home or Self Care 10/28/2023 Orders Only [facility] [place], [facility] Transplantation and Clinical Regeneration in [place], [place] [address] [place] [phone] Katja Umana M.D. Alcoholic Cirrhosis Of Liver With Ascites (HCC) (Primary Dx) 10/28/2023 Orders Only Department of Nicotine Dependence, [place], [place] [address] [place] [phone] Sudha Bernstein M.A., Yesy.I.C.S.W., M.S.W. 10/28/2023 Clinical Communication Department of Nicotine Dependence, [place], [place] [address] [place] [phone] Sudha Bernstein M.A., L.I.C.S.W., M.S.W. NDC Med Request 10/28/2023 11:00 AM SPOT CHECKER Virtual Visit Department of Nicotine Dependence, [facility] in [place], [place] [address] [place] [phone] Romana Diane M.D., Ph.D. Sudha Bernstein M.A., L.I.C.S.W., M.S.W. Nicotine Dependence Cigarettes 10/27/2023 10:26 AM SPOT CHECKER - 10/27/2023 11:59 PM SPOT CHECKER Hospital Encounter Department of Laboratory Medicine in [address] [address] Katja Umana M.D. Alcoholic Cirrhosis Of Liver With Ascites (HCC); Alcohol Moderate Or Severe Use Disorder (Dependence) Uncomplicated (HCC) Discharge Disposition: Home or Self Care 10/27/2023 10:26 AM SPOT CHECKER - 10/27/2023 11:59 PM SPOT CHECKER Hospital Encounter Department of Laboratory Medicine in [address] [address] Romana Diane M.D., Ph.D. Alcohol Moderate Or Severe Use Disorder (Dependence) Uncomplicated (HCC) Discharge Disposition: Home or Self Care 10/24/2023 Clinical Communication Division of Gastroenterology in [address] [address] Katja Umana M.D. 10/22/2023 7:27 AM SPOT CHECKER - 10/22/2023 3:44 PM SPOT CHECKER Hospital Encounter Department of Radiology, [address] [address] Katja Umana M.D. Ascites Discharge Disposition: Home or Self Care 10/20/2023 1:00 PM SPOT CHECKER - 10/20/2023 11:59 PM SPOT CHECKER Hospital Encounter Department of Laboratory Medicine in [address] [address] Katja Umana M.D. Ascites Discharge Disposition: Home or Self Care 10/18/2023 Clinical Communication Division of Gastroenterology in [address] [address] Katja Umana M.D. 10/15/2023 10:40 AM SPOT CHECKER Telemedicine Division of Gastroenterology in [address] [address] Katja Umana M.D. Ascites (Primary Dx); Alcoholic Cirrhosis Of Liver With Ascites (HCC); Esophageal Varices Without Bleeding (HCC) from Last 3 Months Allergies No [...] drink = 0.6 oz pur e alcohol) [facility] Utilities Answer Date Recorded In the past 12 months has [employer], oil, or water [employer] threatened to shut off services in your [...] Date Recorded Employment status Working with temporary [employer] 10/15/2023 Housing Stability Answer Date Recorded What is your living situation today? I have a [facility] place to live 10/15/2023 Sex and Gender Information Value Date Recorded Sex Assigned at Female 10/06/2023 10:50 AM SPOT CHECKER Gender Identity Female 10/06/2023 10:50 AM SPOT CHECKER Sexual Orientation Straight 10/06/2023 10 :50 AM SPOT CHECKER Last Filed Vital Signs Vital Sign Reading Time Taken Comments Blood Pressure 101/47 12/16/2023 10:52 AM CDT Pulse 77 12/16/2023 10:30 AM CDT Temperature 34.7 ??C (94.5 ??F) 12/09/2023 4:21 PM CD T Respiratory Rate 24 10/08/2023 4:16 PM SPOT CHECKER Oxygen Saturation 100% 12/16/2023 10:30 AM CDT [...] Department of Nutrition and Diabetes Education in [place], [place] [address] [place] [phone] Katja Umana M.D. [address] [place] [phone] Taty Cunningham M.S., RDN, LD [address] [place] [phone] 02/04/2024 2:15 PM CDT Appointment Division of Gastroenterology in [place], [place] [address] [place] [phone] Katja Umana M.D. [address] [place] [phone] Hayden Smith M.D. [address] [place] [phone] 03/21/2024 1:00 PM CDT Virtual Visit Department of Nicotine Dependence, [facility], in [place], [place] [address] [place] [phone] Procedures Procedure Name Priority Date/Time Associated Diagnosis [...] inpatients and all outpatients) 11/19/2023 11:55 AM SPOT CHECKER Ascites CELL COUNT AND DIFFERENTIAL, BF Timed 11/19/2023 10:50 AM SPOT CHECKER Ascites BACTERIAL CULTURE, AEROBIC + SUSC Timed 11/19/2023 10:50 AM SPOT CHECKER Ascites US PARACENTESIS WITH IMAGING GUIDANCE RAD - Routine (most inpatients and all outpatients) 11/05/2023 11:25 AM SPOT CHECKER Ascites CELL COUNT AND DIFFERENTIAL, BF Timed 11/05/2023 10:07 AM SPOT CHECKER Ascites BACTERIAL CULTURE, AEROBIC + SUSC Timed 11/05/2023 10:07 AM SPOT CHECKER Ascites BASIC METABOLIC PANEL, S/P Routine 11/01/2023 12:49 PM SPOT CHECKER Alcoholic Cirrhosis Of Liver With Ascites (HCC) CONFIRMED DRUG ABUSE PANEL, U Routine 10/27/2023 10:38 AM SPOT CHECKER Alcohol Moderate Or Severe Use Disorder (Dependence) Uncomplicated (HCC) ETHYL GLUCURONIDE CONFIRMATION, U Routine 10/27/2023 10:38 AM SPOT CHECKER Alcohol Moderate Or Severe Use Disorder (Dependence) Uncomplicated (HCC) PHOSPHATIDYLETHANOL CONFIRMATION, B Routine 10/27/2023 10:33 AM SPOT CHECKER Alcohol Moderate Or Severe Use Disorder (Dependence) Uncomplicated (HCC) BASIC METABOLIC PANEL, S/P Routine 10/27/2023 10:33 AM SPOT CHECKER Alcoholic Cirrhosis Of Liver With Ascites (HCC) US PARACENTESIS WITH IMAGING GUIDANCE RAD - Routine (most inpatients and all outpatients) 10/22/2023 10:18 AM SPOT CHECKER Ascites CELL COUNT AND DIFFERENTIAL, BF Timed 10/22/2023 8:54 AM SPOT CHECKER Ascites BACTERIAL CULTURE, AEROBIC + SUSC Timed 10/22/2023 8:54 AM SPOT CHECKER Ascites BASIC METABOLIC PANEL, S/P Routine 10/20/2023 1:08 PM SPOT CHECKER Ascites HCV AB SCRN W/REFLEX TO HCV PCR, S Routine 10/06/2023 12:17 PM SPOT CHECKER Alcoholic Cirrhosis Of Liver With Ascites (HCC) COLONOSCOPY Routine 10/10/2015 2:45 PM SPOT CHECKER from Last 3 Months or Most Recently [...] IMPRESSION: Ultrasound-guided paracentesis. EP Katja Umana M.D. [facility] US PROCEDURES * (ABNORMAL) Prothrombin Time (PT) [...] CDT Katja Umana M.D. LAB BLOOD ADD-ON [facility] [address] [place] [address], [facility] DTL [facility] [address] [place] [address] * (ABNORMAL) CBC with Differential, Blood (12/09/2023 5:16 PM CDT) Pathologist [facility] Hemoglobin 8.3(L) 11.6 - 15.0 g/dL 12/09/2023 [...] CDT Katja Umana M.D. LAB BLOOD ADD-ON [facility] [address] [place] [address], [place] DTL [facility] [address] [place] [address] [facility] [address] [place] [address] * (ABNORMAL) Comprehensive Metabolic Panel (12/09/2023 5:16 [...] M.D. LAB BLOOD ADD-ON Performing Organization Address City/[facility] Co de Phone Number [facility] [address] [place], [place] [phone] [place] [address] 200 [place] [address] * Bacterial Culture, Aerobic + Susceptibility (11/19/2023 10:50 AM SPOT CHECKER) Only the most recent of3 resultswithin the time period is included. Bacterial Culture, Aerobic + Susc No growth after 5 days of incubation. 11/24/2023 8:27 AM CDT DTL Fluid (Peritoneal Fluid) 11/19/2023 10:50 AM SPOT CHECKER Narrative [facility] - 11/24/2023 8:27 AM CDT Bacterial Culture: Received Bactec aerobic and Bactec anaerobic bottles Felipe Morales M.D. LAB MICROBIOLOGY - GENERAL ORDERABLES Performing Organization Address City/[facility]/ZIP Co de Phone Number [facility] [address] [place] [address], [facility] [address] [place] [address] * Cell Count and Differential, Body Fluid (11/19/2023 10:50 AM SPOT CHECKER) Only the most recent of3 resultswithin the time period is included. Fluid Type Peritoneal /Paracente sis 11/19/2023 12:39 PM SPOT CHECKER DH[facility] Gross Appearance Serous 11/19/19 24 12:39 PM SPOT CHECKER [facility] Total Nucleated Cells 201 /mcL 11/19/2023 12:39 PM SPOT CHECKER [facility] Comment: ----REFERENCE VALUE---- Synovial: <150 /mcL Peritoneal: <500 /mcL Pleural: <500 /mcL Pericardial: <500 /mcL ----ADDITIONAL INFORMATION---- This test has been modified from the tear down man's instructions. Its performance characteristics were determined by [facility] in a manner consistent with CLIA requirements. This test has not been cleared or approved by the U.S. Food and Drug Administration. Neutrophils 20 % 11/19/2023 1:42 PM SPOT CHECKER [facility] Comment: ----REFERENCE VALUE---- Synovial: <25% Peritoneal: <25% Pleural: <25% Pericardial: <25% Lymphocytes 16 Synovial <75% % 11/19/2023 1:42 PM SPOT CHECKER [facility] Monocytes/Macropha ges 60 Synovial <70% % 11/19/2023 1:42 PM SPOT CHECKER [facility] Other Cells 4 % 11/19/2023 1:42 PM SPOT CHECKER [facility] Comment: ----REFERENCE VALUE---- The reference range and other method performance specifications have not been established for this bodyfluid. The test result must be integrated into the clinical context for interpretation. Other Cells Are: See Comment 11/19/2023 1:42 PM SPOT CHECKER [facility] Comment:Mesothelial cells Comment See Comment 11/19/2023 1:42 PM SPOT CHECKER [facility] Comment:No blasts or maligna nt cells seen. Reviewed by: Tech 11/19/2023 1:42 PM SPOT CHECKER [facility] Fluid (Peritoneal Fluid) 11/19/2023 10:50 AM SPOT CHECKER Felipe Morales M.D. LAB BODY FLUIDS AND STOOLS ORDERABLES [facility] [address] [place] [address], [facility] [address] [place] [address] * (ABNORMAL) Basic Metabolic Panel (11/01/2023 12:49 PM SPOT CHECKER) Only the most recent of3 resultswithin the time period is included. Potassium, P 4.1 3.6 - 5.2 mmol/L 11/01/2023 1:13 PM SPOT CHECKER CNFL Sodium, P 128(L) 135 - 145 mmol/L 11/01/2023 1:13 PM SPOT CHECKER CNFL Chloride, P 95(L) 98 - 107 mmol/L 11/01/2023 1:13 PM SPOT CHECKER CNFL Bicarbonate, P 26 22 - 29 mmol/L 11/01/2023 1:13 PM SPOT CHECKER CNFL Anion Gap, P 7 7 - 15 11/01/2023 1:13 PM SPOT CHECKER CNFL BUN (Blood Urea Nitrogen), P 10 6 - 21 mg/dL 11/01/2023 1:13 PM SPOT CHECKER CNFL Creatinine 0.42(L) 0.59 - 1.04 mg/dL 11/01/2023 1:13 PM SPOT CHECKER CNFL Estimated GFR (eGFR) >90 >=60 mL/min/BSA 11/01/2023 1:13 PM SPOT CHECKER CNFL Comment: Estimated GFR calculated using the 2020 CKD_EPI creatinine equation. Calcium, Total, P 8.3(L) 8.8 - 10.2 mg/dL 11/01/2023 1:13 PM SPOT CHECKER CNFL Glucose, P 105 70 - 140 mg/dL 11/01/2023 1:13 PM SPOT CHECKER CNFL Blood (Blood, Venous) 11/01/2023 12:49 PM SPOT CHECKER 11/01/2023 12:54 PM SPOT CHECKER Katja Umana M.D. LAB BLOOD ADD-ON [facility] [address] [place] [address], [place] CNFL [facility] in [address] [address] * Ethyl Glucuronide Confirmation, Random, Urine (10/27/2023 10:38 AM SPOT CHECKER) Ethyl Glucuronide Confirmation, U Negative Cutoff: 250 ng/mL 10/29/2023 8:19 AM SPOT CHECKER [facility] Ethyl Sulfate Negative Cutoff: 100 ng/mL 10/29/2023 8:19 AM SPOT CHECKER [facility] Ethyl Gluc/Sulfate Interpretation Negative. 10/29/2023 8:19 AM [facility] Comment: ----ADDITIONAL INFORMATION---- This report is intended for use in clinical monitoring and management of patients. ??It is not intended for use in employment-related testing. This test was developed and its performance characteristics determined by [facility] in a manner consistent with CLIA requirements. This test has not been cleared or approved by the U.S. Food and Drug Administration. Urine (Urine, Midstream) 10/27/2023 10:38 AM SPOT CHECKER 10/27/2023 10:00 PM SPOT CHECKER Romana Diane M.D., Ph.D. LAB URI NE ORDERABLES [facility] [address] [place] [address] [place] [address] [place] [facility] [place] [address] * Drug Abuse Survey with Confirmation, Urine (10/27/2023 10:38 AM [facility]) Alcohol Negative Cutoff: 10 mg/dL 10/28/2023 9:08 AM [facility] Amphetamines Negative Cutoff: 500 ng/mL 10/28/2023 9:08 AM [facility] Barbiturates Negative Cutoff: 200 ng/mL 10/28/2023 9:08 AM [facility] Benzodiazepines Negative Cutoff: 100 ng/mL 10/28/2023 9:08 AM [facility] Cocaine Negative Cutoff: 150 ng/mL 10/28/2023 9:08 AM [facility] Comment: This cocaine immunoassay targets benzoylecgonine the primary metabolite of cocaine. Opiates Negative Cutoff: 300 ng/mL 10/28/2023 9:08 AM [facility] Phencyclidine Negative Cutoff: 25 ng/mL 10/28/2023 9:08 AM [facility] Tetrahydrocannabinol Negative Cutoff: 50 ng/mL 10/28/2023 9:08 AM [facility] Comment: This immunoassay targets delta-9 tetrahydrocannabinol carboxylic acid (THC-COOH), a metabolite of delta-9 tetrahydrocannabinol the main psychoactive ingredient of marijuana. ----ADDITIONAL INFORMATION---- This report is intended for use in clinical monitoring or management of patients. ??It is not intended for use in employment-related testing. Urine (Urine, Midstream) 10/27/2023 10:38 AM SPOT CHECKER 10/27/2023 10:03 PM SPOT CHECKER Romana Diane M.D., Ph.D. LAB URI NE ORDERABLES [facility] [address] [place] [address] [facility] [address] [place] [address] [place] [address] * Phosphatidylethanol Confirmation (10/27/2023 10:33 AM SPOT CHECKER) PEth 16:0/18:1 (POPEth) by LC-MS/MS <20 Cutoff: 10 ng/mL 10/29/2023 8:22 PM SPOT CHECKER [facility] Comment: Testing performed at a x2 [...] <10 Cutoff: 10 ng/mL 10/29/2023 8:22 PM SPOT CHECKER SDS Comment: PEth 16:0/18:2 (PLPEth) Reference ranges are not well established PEth Interpretation Negative. 10/29 8:22 PM SPOT CHECKER [facility] Comment: ----ADDITIONAL INFORMATION---- This report is intended for use in clinical monitoring and management of patients. ??It is not intended for use in employment-related testing. This test was developed and its performance characteristics determined by [facility] in a manner consistent with CLIA requirements. This test has not been cleared or approved by the U.S. Food and Drug Administration. Blood (Blood, Venous) 10/27/2023 10:33 AM SPOT CHECKER 10/27/2023 9:57 PM SPOT CHECKER Romana Diane M.D., Ph.D. LAB BLO OD ADD-ON [facility] [address] [place] [address] [facility] [address] [place] [address] [place] [address] * HCV Ab Scrn w/Reflex to HCV PCR, Serum (10/06/2023 12:17 PM SPOT CHECKER) HCV Ab Screen, S Negative Negative 10/06/2023 9:12 PM SPOT CHECKER [facility] Comment:Vskvvp-[id number] rat io is <1.00. Blood (Blood, Venous) 10/06/2023 12:17 PM SPOT CHECKER 10/06/2023 3:57 PM SPOT CHECKER Katja Umana M.D. LAB MICROBIOLOGY - B LOOD ORDERABLES Performing Organization Address [facility] Co de Phone Number [facility] [address] [place] [address] [facility] [address] [place] [address] * Colonoscopy (10/10/2015 2:45 PM SPOT CHECKER) 10/10/2015 2:45 PM SPOT CHECKER Tanner Calderón GI PROCEDURE ORDE [facility] [address] [place] [address], [facility] from Last 3 Months or Most Recently Relevant to Health Maintenance Care Teams Household Manager Relationship Specialty Start Date End Date Elsewhere, Pcp PCP - General Family Medicine 12/07/23
--- OUTSIDE RECORDS SUMMARY | 2024-01-09 19:48 | XMS_ITS | Encounter Summary ---
Author Name Unknown Organization [facility] Address [address] [place] [address] Care Team Providers Care Branch Service Specialist Name Role Phone Elsewhere, Pcp Primary Care Provider Unavailabl e Reason for Referral * Outpatient (Routine) - Authorized Specialty Diagnoses / Procedures Referred By Dotty t Referred To Contact Diagnoses Ascites Procedures US Paracentesis with Imaging Guidance Katja Umana M.D. [address] [place] [phone] [facility] Referral ID Status Reason Start Date Expiration Date V isits Requested Visits Authorized [id number] Authorized 11/23/2023 11/22/2024 1 1 Reason for Visit * Reason Onset Date Comments Order Request 11/22/2023 Encounter Details Date Type Department Care Team (Latest Contact Info) Description 11/22/2023 Clinical Communication Division of Gastroenterology in [place], [place] 200 [place] [phone] Katja Umana M.D. [address] [place] [phone] Order Request Social History Tobacco Use Types Packs/Day Years Used Date Smoking Tobacco: Every Day Cigarettes 0.5 40 Smokeless Tobacco: Never Alcohol Use Standard Drinks/Week Comments Not Currently 0 (1 standard drink = 0.6 oz pur e alcohol) [facility] Utilities Answer Date Recorded In [...] Date Recorded Employment status Working with temporary [employer] tions 10/15/2023 Housing Stability Answer Date Recorded What is your living situation today? I have a [facility] place to live 10/15/2023 Sex and Gender Information Value Date Recorded Sex Assigned at Female 10/06/2023 10:50 AM RETAIL OFFICE ASSOCIATE Gender Identity Female 10/06/2023 10:50 AM RETAIL OFFICE ASSOCIATE Sexual Orientation Straight 10/06/2023 10 :50 AM RETAIL OFFICE ASSOCIATE documented as of this encounter Plan of Treatment Upcoming Encounters Date Type Department Care Team (Late st Contact Info) Description 01/19/2024 10:00 AM CDT Telemedicine Department of Nutrition and Diabetes Education in [place], [place] [address] [place] [phone] Katja Umana M.D. [address] [place] [phone] Taty Cunningham M.S., RDN, LD [address] [place] [phone] 02/04/2024 2:15 PM CDT Appointment Division of Gastroenterology in [place], [place] [address] [place] [phone] Katja Umana M.D. [address] [place] [phone] Hayden Smith M.D. [address] [place] [phone] 03/21/2024 1:00 PM CDT Virtual Visit [facility] in [place], [place] [address] [place] [phone] Scheduled Orders Name Type Priority Associated Diagnoses Order Schedule US Paracentesis with Imaging Guidance Imaging RAD - Routine (most inpatients and all outpatients) Ascites Expected: 12/03/2023, Expires: 02/22/2025 documented as of this encounter Visit Diagnoses Diagnosis Ascites- Primary documented in this encounter Additional Health Concerns Assessment Noted Time PHQ-9 Depression Total Score: 3 10/20/19 24 7:30 AM RETAIL OFFICE ASSOCIATE documented as of this encounter Care Teams Branch Service Specialist Relationship Specialty Start Date End Date Elsewhere, Pcp PCP - General Family Medicine 12/07/23 documented as of this encounter
--- OUTSIDE RECORDS SUMMARY | 2024-01-09 19:48 | XMS_ITS | Encounter Summary ---
Author Name Unknown Organization [facility] Address [address] [place] [address] Care Team Providers Care Gaming Commissioner Name Role Phone Elsewhere, Pcp Primary Care Provider Unavailabl e Reason for Visit * Reason Comments Nicotine Dependence * Outpatient (Routine) - Closed Specialty Diagnoses / Procedures Referred By Contlulu t Referred To Contact Nicotine Dependence Sudha Bernstein M.A., Yesy.I.C.S.W., M.S.W. [address] [place] [phone] [facility] Referral ID Status Reason Start Date Expiration Date Visits Re quested Visits Authorized [id number] Closed 11/18/2023 05/19/2025 1 1 Encounter Details Date Type Department Care Team (Late st Contact Info) Description 12/20/2023 2:00 PM CDT Virtual Visit Department of Nicotine Dependence, [facility], in [place], [place] [address] [place] [phone] Sudha Bernstein M.A., L.I.C.S.W., M.S.W. [address] [place] [phone] Nicotine Dependence Cigarettes With Withdrawal (Primary Dx) Social History Tobacco Use Types Packs/Day Years Used Date Smoking Tobacco: Every Day Cigarettes 0.5 40.9 Started: 02/11/1983 Passive Smoke Exposure: Never Smokeless Tobacco: Never Alcohol Use Standard Drinks/Week Comments Not Currently 0 (1 standard drink = 0.6 oz pur e alcohol) [facility] Utilities Answer Date Recorded In the past 12 months has [email or web address], gas, oil, or water [employer] threatened to shut off services in your [...] Date Recorded Employment status Working with temporary [employer] tions 10/15/2023 Housing Stability Answer Date Recorded What is your living situation today? I have a [facility] place to live 10/15/2023 Sex and Gender Information Value Date Recorded Sex Assigned at Female 10/06/2023 10:50 AM PRINT PRODUCTION ASSOCIATE Gender Identity Female 10/06/2023 10:50 AM PRINT PRODUCTION ASSOCIATE Sexual Orientation Straight 10/06/2023 10 :50 AM PRINT PRODUCTION ASSOCIATE documented as of this encounter Progress Notes * Sudha Bernstein M.A., L.I.C.S.W., M.S.W. - 12/20/2023 2:00 PM CDT OBJECTIVE Monique Yvonne Norgaard attended a phone follow-up appointment regarding her tobacco use. ASSESSMENT [facility] staff contacted the patient as a follow [...] was asked if she would like [facility] staff to contact her in the future [...] Department of Nutrition and Diabetes Education in [place], [place] [address] [place] [phone] Katja Umana M.D. [address] [place] [phone] Taty Cunningham M.S., RDN, LD [address] [place] [phone] 02/04/2024 2:15 PM CDT Appointment Division of Gastroenterology in [place], [place] [address] [place] [phone] Katja Umana M.D. [address] [place] [phone] Hayden Smith M.D. [address] [place] [phone] 03/21/2024 1:00 PM CDT Virtual Visit Department of Nicotine Dependence, [facility], in [place], [place] [address] [place] [phone] documented as of this encounter Visit Diagnoses Diagnosis Nicotine Dependence Cigarettes With Withdrawal- Primary documented in this encounter Additional Health Concerns Assessment Noted Time PHQ-9 Depression Total Score: 3 10/20/19 24 7:30 AM PRINT PRODUCTION ASSOCIATE documented as of this encounter Care Teams Gaming Commissioner Relationship Specialty Start Date End Date Elsewhere, Pcp PCP - General Family Medicine 12/07/23 documented as of this encounter
--- OUTSIDE RECORDS SUMMARY | 2024-01-09 19:48 | XMS_ITS | Encounter Summary ---
Author Name Unknown Organization [facility] Address [address] [place] [address] Care Team Providers Care Treasurer [employer] Name Role Phone Elsewhere, Pcp Primary Care Provider Unavailabl e Encounter Details Date Type Department Care Team (Latest Contact Info) Description 12/21/2023 Clinical Communication Brent motta [facility] in [place], [place] [address] [place] [phone] Katja Umana M.D. [address] [place] [phone] Social History Tobacco Use Types Packs/Day Years Used Date Smoking Tobacco: Every Day Cigarettes 0.5 40.9 Started: 02/11/1983 Passive Smoke Exposure: Never Smokeless Tobacco: Never Alcohol Use Standard Drinks/Week Comments Not Currently 0 (1 standard drink = 0.6 oz pur e alcohol) [facility] Utilities Answer Date Recorded In the past 12 months has e [employer], gas, oil, or water [employer] threatened to shut off services in your [...] Date Recorded Employment status Working with temporary [email or web address] 10/15/2023 Housing Stability Answer Date Recorded What is your living situation today? I have a [facility] place to live 10/15/2023 Sex and Gender Information Value Date Recorded Sex Assigned at Female 10/06/2023 10:50 AM SHOW GIRL Gender Identity Female 10/06/2023 10:50 AM SHOW GIRL Sexual Orientation Straight 10/06/2023 10 :50 AM SHOW GIRL documented as of this encounter Miscellaneous Notes * Telephone Encounter - Liana Estrada - 12/21/2023 10:54 AM CDT Left message for patient to call back on 12/20. documented in this encounter Plan of Treatment Upcoming Encounters Date Type Department Care Team (Late st Contact Info) Description 01/19/2024 10:00 AM CDT Telemedicine Department of Nutrition and Diabetes Education in [place], [place] 200 [place] [address] Katja Umana M.D. [address] [place] [phone] Taty Cunningham M.S., RDN, LD [address] [place] [phone] 02/04/2024 2:15 PM CDT Appointment Division of Gastroenterology in [place], [place] [address] [place] [phone] Katja Umana M.D. [address] [place] [phone] Hayden Smith M.D. [address] [place] [phone] 03/21/2024 1:00 PM CDT Virtual Visit Department of Nicotine Dependence, [facility], in [place], [place] [address] [place] [phone] documented as of this encounter Visit Diagnoses Not on filedocumented in this encounter Additional Health Concerns Assessment Noted Time PHQ-9 Depression Total Score: 3 10/20/19 24 7:30 AM SHOW GIRL documented as of this encounter Care Teams Treasurer [employer] Relationship Specialty Start Date End Date Elsewhere, Pcp PCP - General Family Medicine 12/07/23 documented as of this encounter
--- OUTSIDE RECORDS SUMMARY | 2024-01-09 19:48 | XMS_ITS | Encounter Summary ---
Author Name Unknown Organization [facility] Address [address] [place] [phone] Care Team Providers Care Pickling Operator Name Role Phone Elsewhere, Pcp Primary Care Provider Unavailabl e Reason for Referral * Outpatient (Routine) - Authorized Specialty Diagnoses / Procedures Referred By Contac t Referred To Contact Nutrition Diagnoses Alcoholic Cirrhosis Of Liver With Ascites (HCC) Sarcopenia Katja Umaan M.D. 200 [place] [phone] [facility] Referral ID Status Reason Start Date Expiration Date V isits Requested Visits Authorized [id number] Authorized 12/09/2023 06/09/2025 1 1 * Outpatient (Routine) - Authorized Specialty Diagnoses / Procedures Referred By Contac t Referred To Contact Diagnoses Alcoholic Cirrhosis Of Liver With Ascites (HCC) Ascites Procedures US Paracentesis with Imaging Guidance Katja Umana M.D. 200 [place] [phone] [facility] Referral ID Status Reason Start Date Expiration Date V isits Requested Visits Authorized [id number] Authorized 12/09/2023 12/08/2024 8 8 Reason for Visit * Outpatient (Routine) - Closed Specialty Diagnoses / Procedures Referred By Contact Referred To Contact Gastroenterology and Hepatology Katja Umana M.D. 200 [place] [address] [facility] Referral ID Status Reason Start Date Expiration Date Visits Re quested Visits Authorized [id number] Closed 10/28/2023 04/28/2025 1 1 Encounter Details Date Type Department Care Team (Latest Contact Info) Description 12/09/2023 4:30 PM CDT Office Visit Brent motta [facility] in [place], [place] [address] [place] [phone] Katja Umana M.D. [address] [place] [phone] Rose Palacios M.D. 200 [place] [phone] Alcoholic Cirrhosis Of Liver With Ascites (HCC) (Primary Dx); Ascites; Sarcopenia Social History Tobacco Use Types Packs/Day Years Used Date Smoking Tobacco: Every Day Cigarettes 0.5 40.9 Started: 02/11/1983 Passive Smoke Exposure: Never Smokeless Tobacco: Never Alcohol Use Standard Drinks/Week Comments Not Currently 0 (1 standard drink = 0.6 oz pur e alcohol) [facility] Utilities Answer Date Recorded In the past 12 months has th e [employer], gas, oil, or water [employer] threatened to shut off services in your [...] Date Recorded Employment status Working with temporary [employer] tions 10/15/2023 Housing Stability Answer Date Recorded What is your living situation today? I have a [facility] place to live 10/15/2023 Sex and Gender Information Value Date Recorded Sex Assigned at Female 10/06/2023 10:50 AM MARKET ANALYSIS DIRECTOR Gender Identity Female 10/06/2023 10:50 AM MARKET ANALYSIS DIRECTOR Sexual Orientation Straight 10/06/2023 10 :50 AM MARKET ANALYSIS DIRECTOR documented as of this encounter Last [...] Mrs. Redmond was hospitalized locally from 12/02/2023-12/06/2023 ([facility]) for progressive fatigue and decreased exercise tolerance. [...] last colonoscopy was performed in 2019 in [place]. I am not able to see this report. She is recommended to follow-up with her PCP for completing surveillance colonoscopy. If she is not able tocomplete this locally, then we can arrange for this to be done at [facility]. All questions were answered. This plan will be discussed with Dr. Morales. BILLING: I personally spent over half of a total 35 minutes in counseling and discussion with the patient and coordination of care as described above. Signed: Katja Umana M.D. Gastroenterology and Hepatology Fellow Pager [phone] documented in this encounter Plan of Treatment Upcoming Encounters Date Type Department Care Team (Late st Contact Info) Description 01/19/2024 10:00 AM CDT Telemedicine Department of Nutrition and Diabetes Education in [place], [place] [address] [place] [phone] Katja Umana M.D. [address] [place] [phone] Taty Cunningham M.S., RDN, LD [address] [place] [phone] 02/04/2024 2:15 PM CDT Appointment Division of Gastroenterology in [place], [place] [address] [place] [phone] Katja Umana M.D. [address] [place] [phone] Hayden Smith M.D. [address] [place] [phone] 03/21/2024 1:00 PM CDT Virtual Visit Department of Nicotine Dependence, [facility], in [place], [place] [address] [place] [phone] Scheduled Referrals Name Type Priority Associated Diagnoses [...] CDT Katja Umana M.D. LAB BLOOD ADD-ON [facility] [address] [place] [address], [facility] DTL [facility] [address] [place] [address] * (ABNORMAL) Comprehensive Metabolic Panel (12/09/2023 5:16 PM CDT) Pathologist [facility] Potassium, S 5.0 3.6 - 5.2 mmol/L [...] CDT Katja Umana M.D. LAB BLOOD ADD-ON [facility] [address] [place] [address], [facility] [address] [place] [address] * (ABNORMAL) CBC with Differential, Blood (12/09/2023 [...] CDT Katja Umana M.D. LAB BLOOD ADD-ON [facility] [address] [place] [address], [facility] DTL [facility] [address] [place] [address] DHPM [facility] [address] [place] [address] documented in this encounter Visit Diagnoses Diagnosis Alcoholic Cirrhosis Of Liver With Ascites (HCC)- Primary Ascites Sarcopenia Alcoholic Cirrhosis Of Liver With Ascites (HCC) Ascites documented in this encounter Additional Health Concerns Assessment Noted Time PHQ-9 Depression Total Score: 3 10/20/19 24 7:30 AM MARKET ANALYSIS DIRECTOR documented as of this encounter Care Teams Pickling Operator Relationship Specialty Start Date End Date Elsewhere, Pcp PCP - General Family Medicine 12/07/23 documented as of this encounter
--- OUTSIDE RECORDS SUMMARY | 2024-01-09 19:48 | XMS_ITS | Encounter Summary ---
Author Name Unknown Organization [facility] Address [address] [place] [address] Care Team Providers Care Dry Wall Installations Mechanic Name Role Phone Elsewhere, Pcp Primary Care Provider Unavailabl e Reason for Visit * Outpatient (Routine) - Closed Specialty Diagnoses / Procedures Referred By Dotty t Referred To Contact Preventive Medicine Diagnoses Alcoholic Cirrhosis Of Liver With Ascites (HCC) Katja Umana M.D. [address] [place] [phone] [facility] Referral ID Status Reason Start Date Expiration Date Visits Re quested Visits Authorized [id number] Closed 10/15/2023 04/15/2025 1 1 Encounter Details Date Type Department Care Team (Latest Contact Info) Description 12/08/2023 10:30 AM CDT Comprehensive Visit Section of Infectious Diseases in [place], [place] [address] [place] [phone] Katja Umana M.D. [address] [place] [phone] Brianna Anglin APRN, C.N.P., D.N.P. [address] [place] [phone] Counseling And Review Vaccination Status (Primary [...] drink = 0.6 oz pur e alcohol) [facility] Utilities Answer Date Recorded In [...] living situation today? I have a [facility] place to live 10/15/2023 Sex and Gender Information Value Date Recorded Sex Assigned at Female 10/06/2023 10:50 AM GRAPHIC DESIGN SPECIALIST Gender Identity Female 10/06/2023 10:50 AM GRAPHIC DESIGN SPECIALIST Sexual Orientation Straight 10/06/2023 10 :50 AM GRAPHIC DESIGN SPECIALIST documented as of this encounter Patient Instructions [...] the Hepatobiliary team here at [facility]. They have requested for patient to [...] Department of Nutrition and Diabetes Education in [place], [place] [address] [place] [phone] Katja Umana M.D. [address] [place] [phone] Taty Cunningham M.S., RDN, LD [address] [place] [phone] 02/04/2024 2:15 PM CDT Appointment Division of Gastroenterology in [place], [place] [address] [place] [phone] Katja Umana M.D. [address] [place] [phone] Hayden Smith M.D. 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
--- OUTSIDE RECORDS SUMMARY | 2024-01-09 19:48 | XMS_ITS ---
Author Name Unknown Organization [facility] Address [address] [place] [address] Care Team Providers Care Harp Regulator Name Role Phone Unavailable Unavailable Unavailable Surgery Details Not on file Complications Check Surgery Details section. Procedure Estimated Blood Loss Check Surgery Details section. Procedure Findings Check Surgery Details section. Procedure Specimens Taken Check Surgery Details section.
--- OUTSIDE RECORDS SUMMARY | 2024-01-09 19:49 | XMS_ITS | Encounter Summary ---
Author Name Unknown Organization [facility] Address [address] [place] [address] Care Team Providers Care Toppiece Chopper Name Role Phone Elsewhere, Pcp Primary Care Provider Unavailabl e Reason for Visit * Reason Comments Nicotine Dependence * Outpatient (Routine) - Closed Specialty Diagnoses / Procedures Referred By Contac t Referred To Contact Nicotine Dependence Sudha Bernstein M.A., Yesy.I.C.S.W., M.S.W. [address] [place] [phone] [facility] Referral ID Status Reason Start Date Expiration Date Visits Re quested Visits Authorized [id number] Closed 11/11/2023 05/12/2025 1 1 Encounter Details Date Type Department Care Team (Late st Contact Info) Description 11/18/2023 11:00 AM SOCIAL SERVICES DESIGNEE Virtual Visit Department of Nicotine Dependence, [facility], in [place], [place] [address] [place] [phone] Sudha Bernstein M.A., L.I.C.S.W., M.S.W. [address] [place] [phone] Nicotine Dependence Cigarettes With Withdrawal (Primary Dx) Social History Tobacco Use Types Packs/Day Years Used Date Smoking Tobacco: Every Day Cigarettes 0.5 40 Smokeless Tobacco: Never Alcohol Use Standard Drinks/Week Comments Not Currently 0 (1 standard drink = 0.6 oz pur e alcohol) [facility] Utilities Answer Date Recorded In the past 12 months has [email or web address] electric, gas, oil, or water company threatened [...] Date Recorded Employment status Working with temporary [employer] tions 10/15/2023 Housing Stability Answer Date Recorded What is your living situation today? I have a [facility] place to live 10/15/2023 Sex and Gender Information Value Date Recorded Sex Assigned at Female 10/06/2023 10:50 AM SOCIAL SERVICES DESIGNEE Gender Identity Female 10/06/2023 10:50 AM SOCIAL SERVICES DESIGNEE Sexual Orientation Straight 10/06/2023 10 :50 AM SOCIAL SERVICES DESIGNEE documented as of this encounter Progress Notes [...] 10 minutes was spent on tobacco counseling. AL SERVICES DESIGNEE documented in this encounter Plan of Treatment Upcoming Encounters Date Type Department Care Team (Late st Contact Info) Description 01/19/2024 10:00 AM CDT Telemedicine Department of Nutrition and Diabetes Education in [place], [place] [address] [place] [address] Katja Umana M.D. [address] [place] [address] Taty Cunningham M.S., RDN, LD [address] [place] [phone] 02/04/2024 2:15 PM CDT Appointment Division of Gastroenterology in [place], [place] [address] [place] [address] Katja Umana M.D. [address] [place] [address] Hayden Smith M.D. [address] [place] [address] 03/21/2024 1:00 PM CDT Virtual Visit Department of Nicotine Dependence, [facility], in [place], [place] [address] [place] [address] documented as of this encounter Visit Diagnoses Diagnosis Nicotine Dependence Cigarettes With Withdrawal- Primary documented in this encounter Additional Health Concerns Assessment Noted Time PHQ-9 Depression Total Score: 3 10/20/19 24 7:30 AM SOCIAL SERVICES DESIGNEE documented as of this encounter Care Teams Toppiece Chopper Relationship Specialty Start Date End Date Elsewhere, Pcp PCP - General Family Medicine 12/07/23 documented as of this encounter
--- OUTSIDE RECORDS SUMMARY | 2024-01-09 19:49 | XMS_ITS | Encounter Summary ---
Author Name Unknown Organization [facility] Address [address] [place] [address] Care Team Providers Care Convertible Top Installer Name Role Phone Unavailable Primary Care Provider Unavailabl e Reason for Visit * Reason Comments Nicotine Dependence * Outpatient (Routine) - Closed Specialty Diagnoses / Procedures Referred By Contac t Referred To Contact Pulmonary Medicine / Nicotine Dependence Diagnoses Nicotine Dependence Cigarettes Romana Diane M.D., Ph.D. [address] [place] [phone] [facility] Referral ID Status Reason Start Date Expiration Date Visits Re quested Visits Authorized [id number] Closed 10/20/2023 04/20/2025 1 1 Encounter Details Date Type Department Care Team (Late st Contact Info) Description 10/28/2023 11:00 AM TRUCK BODY BUILDER APPRENTICE Virtual Visit Department of Nicotine Dependence, [facility], in [place], [place] [address] [place] [phone] Romana Diane M.D., Ph.D. [address] [place] [phone] Sudha Bernstein M.A., L.I.C.S.W., M.S.W. [address] [place] [phone] Nicotine Dependence Cigarettes Social History Tobacco Use Types Packs/Day Years Used Date Smoking Tobacco: Every Day Cigarettes 0.5 40 Smokeless Tobacco: Never Alcohol Use Standard Drinks/Week Comments Not Currently 0 (1 standard drink = 0.6 oz pur e alcohol) [facility] Utilities Answer Date Recorded In the past [...] your living situation today? I have a [facility] place to live 10/15/2023 Sex and Gender Information Value Date Recorded Sex Assigned at Female 10/06/2023 10:50 AM TRUCK BODY BUILDER APPRENTICE Gender Identity Female 10/06/2023 10:50 AM TRUCK BODY BUILDER APPRENTICE Sexual Orientation Straight 10/06/2023 10 :50 AM TRUCK BODY BUILDER APPRENTICE documented as of this encounter Consult Notes [...] this medication being metabolized through the liver [facility] staff would need to discuss the patient's [...] and cravings. Follow Up: I encouraged Monique Sinclairmarcus to contact me with any questions or concerns. I plan tocall the patient to follow-up in two weeks. Patient was provided with [facility] educational materials electronically. . Patient is ready to learn, no apparant barriers to learning were identified. Patient understands and agrees with plan. 30 minutes of our visit was spent on tobacco use disorder counseling. Sudha Bernstein M.A., Sony, M.S.W. 10/28/2023 11:33 AM TRUCK BODY BUILDER APPRENTICE K BODY BUILDER APPRENTICE documented in this encounter Plan of Treatment Upcoming Encounters Date Type Department Care Team (Late st Contact Info) Description 01/19/2024 10:00 AM CDT Telemedicine Department of Nutrition and Diabetes Education in [place], [place] [address] [place] [phone] Katja Umana M.D. [address] [place] [phone] Taty Cunningham M.S., RDN, LD [address] [place] [phone] 02/04/2024 2:15 PM CDT Appointment Division of Gastroenterology in [place], [place] [address] [place] [phone] Katja Umana M.D. [address] [place] [phone] Hayden Smith M.D. [address] [place] [address] [place] [phone] 03/21/2024 1:00 PM CDT Virtual Visit Department of Nicotine Dependence, [facility], in [place], [place] [address] [place] [phone] documented as of this encounter Visit Diagnoses Diagnosis Nicotine Dependence Cigarettes documented in this encounter Additional Health Concerns Assessment Noted Time PHQ-9 Depression Total Score: 3 10/20/19 24 7:30 AM TRUCK BODY BUILDER APPRENTICE documented as of this encounter
--- OUTSIDE RECORDS SUMMARY | 2024-01-09 19:49 | XMS_ITS | Encounter Summary ---
Author Name Unknown Organization [facility] Address [address] [place] [address] Care Team Providers Care Oxygen Therapist Name Role Phone Unavailable Primary Care Provider Unavailabl e Reason for Referral * Outpatient (Routine) - Closed Specialty Diagnoses / Procedures Referred By Contlulu t Referred To Contact Nicotine Dependence Sudha Bernstein M.A., DonnSChandrakant, M.S.W. [address] [place] [phone] [facility] Referral ID Status Reason Start Date Expiration Date Visits Re quested Visits Authorized [id number] Closed 10/28/2023 04/28/2025 1 1 Scheduling Instructions Please schedule this patient for a follow up phone visit. RINTENDENT TRANSPORTATION Encounter Details Date Type Department Care Team (Late st Contact Info) Description 10/28/2023 Orders Only Department of Nicotine Dependence, [facility] in [place], [place] [address] [place] [phone] Sudha Bernstein M.A., DonnS.W., M.S.W. [address] [place] [phone] Social History Tobacco Use Types Packs/Day Years Used Date Smoking Tobacco: Every Day Cigarettes 0.5 40 Smokeless Tobacco: Never Alcohol Use Standard Drinks/Week Comments Not Currently 0 (1 standard drink = 0.6 oz pur e alcohol) [facility] Utilities Answer Date Recorded In the past 12 months has th e [employer], gas, oil, or water [employer] threatened to shut off services in your [...] Date Recorded Employment status Working with temporary [employer] tions 10/15/2023 Housing Stability Answer Date Recorded What is your living situation today? I have a [facility] place to live 10/15/2023 Sex and Gender Information Value Date Recorded Sex Assigned at Female 10/06/2023 10:50 AM SUPERINTENDENT TRANSPORTATION Gender Identity Female 10/06/2023 10:50 AM SUPERINTENDENT TRANSPORTATION Sexual Orientation Straight 10/06/2023 10 :50 AM SUPERINTENDENT TRANSPORTATION documented as of this encounter Plan of Treatment Upcoming Encounters Date Type Department Care Team (Late st Contact Info) Description 01/19/2024 10:00 AM CDT Telemedicine Department of Nutrition and Diabetes Education in [place], [place] [address] [place] [phone] Katja Umana M.D. [address] [place] [phone] Taty Cunningham M.S., RDN, LD [address] [place] [phone] 02/04/2024 2:15 PM CDT Appointment Division of Gastroenterology in [place], [place] [address] [place] [phone] Katja Umana M.D. [address] [place] [phone] Hayden Smith M.D. [address] [place] [phone] 03/21/2024 1:00 PM CDT Virtual Visit Department of Nicotine Dependence, [facility] in [place], [place] [address] [place] [phone] Scheduled Referrals Name Type Priority Associated Diagnoses Order Schedule Nicotine Dependence office visit (clinic) Outpatient Referral Routine Expected: 11/11/2023, Expires: 01/25/2025 documented as of this encounter Visit Diagnoses Not on filedocumented in this encounter Additional Health Concerns Assessment Noted Time PHQ-9 Depression Total Score: 3 10/20/19 24 7:30 AM SUPERINTENDENT TRANSPORTATION documented as of this encounter
--- OUTSIDE RECORDS SUMMARY | 2024-01-09 19:49 | XMS_ITS | Encounter Summary ---
Author Name Unknown Organization [facility] Address [address] [place] [address] Care Team Providers Care Welder Apprentice Combination Name Role Phone Unavailable Primary Care Provider Unavailabl e Reason for Referral * Outpatient (Routine) - Closed Specialty Diagnoses / Procedures Referred By Contact Referred To Contact Gastroenterology and Hepatology Katja Aguilera M.D. [address] [place] [phone] [facility] Referral ID Status Reason Start Date Expiration Date Visits Re quested Visits Authorized [id number] Closed 10/28/2023 04/28/2025 1 1 COMMUNICATIONS OFFICER Encounter Details Date Type Department Care Team (Late st Contact Info) Description 10/28/2023 Orders Only [facility] in [place], [place] [address] [place] [phone] Katja Aguilera M.D. [address] [place] [phone] Alcoholic Cirrhosis Of Liver With Ascites (HCC) (Primary Dx) Social History Tobacco Use Types Packs/Day Years Used Date Smoking Tobacco: Every Day Cigarettes 0.5 40 Smokeless Tobacco: Never Alcohol Use Standard Drinks/Week Comments Not Currently 0 (1 standard drink = 0.6 oz pur e alcohol) [facility] Utilities Answer Date Recorded In the past 12 months has [employer], gas, oil, or water company threatened [...] your living situation today? I have a [facility] place to live 10/15/2023 Sex and Gender Information Value Date Recorded Sex Assigned at Female 10/06/2023 10:50 AM TELECOMMUNICATIONS OFFICER Gender Identity Female 10/06/2023 10:50 AM TELECOMMUNICATIONS OFFICER Sexual Orientation Straight 10/06/2023 10 :50 AM TELECOMMUNICATIONS OFFICER documented as of this encounter Miscellaneous Notes * Addendum Note - Katja Aguilera M.D. - 10/28/2023 2:39 PM CSTAddended by: KATJA AGUILERA on: 10/28/2023 02:48 PM Modules accepted: Orders COMMUNICATIONS OFFICER documented in this encounter Plan of Treatment Upcoming Encounters Date Type Department Care Team (Late st Contact Info) Description 01/19/2024 10:00 AM CDT Telemedicine Department of Nutrition and Diabetes Education in [place], [place] [address] [place] [phone] Katja Aguilera M.D. [address] [place] [phone] Taty Cunningham M.S., RDN, LD [address] [place] [phone] 02/04/2024 2:15 PM CDT Appointment Division of Gastroenterology in [place], [place] [address] [place] [phone] Katja Aguilera M.D. [address] [place] [phone] Hayden Smith M.D. [address] [place] [phone] 03/21/2024 1:00 PM CDT Virtual Visit Department of Nicotine Dependence, [facility], in [place], [place] [address] [place] [phone] Scheduled Referrals Name Type Priority Associated Diagnoses Order Schedule Gastroenterology and Hepatology office visit (clinic) Outpatient Referral Routine Expected: 12/14/2023, Expires: 01/25/2025 documented as of this encounter Results * (ABNORMAL) Basic Metabolic Panel (11/01/2023 12:49 PM TELECOMMUNICATIONS OFFICER) Potassium, P 4.1 3.6 - 5.2 mmol/L 11/01/2023 1:13 PM TELECOMMUNICATIONS OFFICER CNFL Sodium, P 128(L) 135 - 145 mmol/L 11/01/2023 1:13 PM TELECOMMUNICATIONS OFFICER CNFL Chloride, P 95(L) 98 - 107 mmol/L 11/01/2023 1:13 PM TELECOMMUNICATIONS OFFICER CNFL Bicarbonate, P 26 22 - 29 mmol/L 11/01/2023 1:13 PM TELECOMMUNICATIONS OFFICER CNFL Anion Gap, P 7 7 - 15 11/01/2023 1:13 PM TELECOMMUNICATIONS OFFICER CNFL BUN (Blood Urea Nitrogen), P 10 6 - 21 mg/dL 11/01/2023 1:13 PM TELECOMMUNICATIONS OFFICER CNFL Creatinine 0.42(L) 0.59 - 1.04 mg/dL 11/01/2023 1:13 PM TELECOMMUNICATIONS OFFICER CNFL Estimated GFR (eGFR) >90 >=60 mL/min/BSA 11/01/2023 1:13 PM TELECOMMUNICATIONS OFFICER CNFL Comment: Estimated GFR calculated using the 2020 CKD_EPI creatinine equation. Calcium, Total, P 8.3(L) 8.8 - 10.2 mg/dL 11/01/2023 1:13 PM TELECOMMUNICATIONS OFFICER CNFL Glucose, P 105 70 - 140 mg/dL 11/01/2023 1:13 PM TELECOMMUNICATIONS OFFICER CNFL Blood (Blood, Venous) 11/01/2023 12:49 PM TELECOMMUNICATIONS OFFICER 11/01/2023 12:54 PM TELECOMMUNICATIONS OFFICER Katja Aguilera M.D. LAB BLOOD ADD-ON Performing Organization Address [facility]/State/[facility] Co de Phone Number [facility] [address] [place] [phone], [facility] CNFL [facility] in [address] [phone] documented in this encounter Visit Diagnoses Diagnosis Alcoholic Cirrhosis Of Liver With Ascites (HCC)- Primary documented in this encounter Additional Health Concerns Assessment Noted Time PHQ-9 Depression Total Score: 3 10/20/19 24 7:30 AM TELECOMMUNICATIONS OFFICER documented as of this encounter
--- OUTSIDE RECORDS SUMMARY | 2024-01-09 19:49 | XMS_ITS | Encounter Summary ---
Author Name Unknown Organization [facility] Address [address] [place] [address] Care Team Providers Care Gold Reclaimer Name Role Phone Unavailable Primary Care Provider Unavailabl e Encounter Details Date Type Department Care Team (Latest Contact Info) Description 11/01/2023 12:28 PM MIS SPECIALIST - 11/01/2023 11:59 PM MIS SPECIALIST Hospital Encounter Department of Laboratory Medicine in [address] [phone] Katja Umana M.D. [address] [place] [phone] Alcoholic Cirrhosis Of Liver With Ascites (HCC) Discharge Disposition: Home or Self Care Social History Tobacco Use Types Packs/Day Years Used Date Smoking Tobacco: Every Day Cigarettes 0.5 40 Smokeless Tobacco: Never Alcohol Use Standard Drinks/Week Comments Not Currently 0 (1 standard drink = 0.6 oz pur e alcohol) [facility] Utilities Answer Date Recorded In the past 12 months has [employer], gas, oil, or water [employer] threatened to shut off services in your [...] Date Recorded Employment status Working with temporary [employer] 10/15/2023 Housing Stability Answer Date Recorded What is your living situation today? I have a [facility] place to live 10/15/2023 Sex and Gender Information Value Date Recorded Sex Assigned at Female 10/06/2023 10:50 AM MIS SPECIALIST Gender Identity Female 10/06/2023 10:50 AM MIS SPECIALIST Sexual Orientation Straight 10/06/2023 10 :50 AM MIS SPECIALIST documented as of this encounter Medications [...] Department of Nutrition and Diabetes Education in [place], [place] [address] [place] [phone] Katja Umana M.D. [address] [place] [phone] Taty Cunningham M.S., RDN, LD [address] [place] [phone] 02/04/2024 2:15 PM CDT Appointment Division of Gastroenterology in [place], [place] [address] [place] [phone] Katja Umana M.D. [address] [place] [phone] Hayden Smith M.D. [address] [place] [phone] 03/21/2024 1:00 PM CDT Virtual Visit Department of Nicotine Dependence, [facility], in [place], [place] [address] [place] [phone] documented as of this encounter Procedures Procedure Name Priority Date/Time Associated Diagnosis Comments BASIC METABOLIC PANEL, S/P Routine 11/01/2023 12:49 PM MIS SPECIALIST Alcoholic Cirrhosis Of Liver With Ascites (HCC) documented in this encounter Results * (ABNORMAL) Basic Metabolic Panel (11/01/2023 12:49 PM MIS SPECIALIST) Potassium, P 4.1 3.6 - 5.2 mmol/L 11/01/2023 1:13 PM MIS SPECIALIST CNFL Sodium, P 128(L) 135 - 145 mmol/L 11/01/2023 1:13 PM MIS SPECIALIST CNFL Chloride, P 95(L) 98 - 107 mmol/L 11/01/2023 1:13 PM MIS SPECIALIST CNFL Bicarbonate, P 26 22 - 29 mmol/L 11/01/2023 1:13 PM MIS SPECIALIST CNFL Anion Gap, P 7 7 - 15 11/01/2023 1:13 PM MIS SPECIALIST CNFL BUN (Blood Urea Nitrogen), P 10 6 - 21 mg/dL 11/01/2023 1:13 PM MIS SPECIALIST CNFL Creatinine 0.42(L) 0.59 - 1.04 mg/dL 11/01/2023 1:13 PM MIS SPECIALIST CNFL Estimated GFR (eGFR) >90 >=60 mL/min/BSA 11/01/2023 1:13 PM MIS SPECIALIST CNFL Comment: Estimated GFR calculated using the 2020 CKD_EPI creatinine equation. Calcium, Total, P 8.3(L) 8.8 - 10.2 mg/dL 11/01/2023 1:13 PM MIS SPECIALIST CNFL Glucose, P 105 70 - 140 mg/dL 11/01/2023 1:13 PM MIS SPECIALIST CNFL Blood (Blood, Venous) 11/01/2023 12:49 PM MIS SPECIALIST 11/01/2023 12:54 PM MIS SPECIALIST Katja Umana M.D. LAB BLOOD ADD-ON [facility] [address] [place] [phone], [facility] CNFL [facility] in [address] [address] documented in this encounter Visit Diagnoses Diagnosis Alcoholic Cirrhosis Of Liver With Ascites (HCC) documented in this encounter Additional Health Concerns Assessment Noted Time PHQ-9 Depression Total Score: 3 10/20/19 24 7:30 AM MIS SPECIALIST documented as of this encounter
--- OUTSIDE RECORDS SUMMARY | 2024-01-09 19:49 | XMS_ITS | Encounter Summary ---
Author Name Unknown Organization [facility] Address [address] [place] [address] Care Team Providers Care Engineer Chief Name Role Phone Unavailable Primary Care Provider Unavailabl e Reason for Referral * Outpatient (Routine) - Closed Specialty Diagnoses / Procedures Referred By Contac t Referred To Contact Diagnoses Ascites Procedures US Paracentesis with Imaging Guidance Katja Umana M.D. 200 [place] [phone] [facility] Referral ID Status Reason Start Date Expiration Date Visits Re quested Visits Authorized [id number] Closed 10/18/2023 10/17/2024 1 1 E FEEDER Reason for Visit * Auth/Cert (Routine) Specialty Diagnoses / Procedures Referred By Contac t Referred To Contact Diagnoses Ascites Procedures US PARACENTESIS WITH IMAGING GUIDANCE Referral ID Status Reason Start Date Expiration Date Visits Re quested Visits Authorized [id number] 1 1 Encounter Details Date Type Department Care Team (Latest Contact Info) Description 10/22/2023 7:27 AM SHAKE FEEDER - 10/22/2023 3:44 PM SHAKE FEEDER Hospital Encounter Department of Radiology, [facility], in [place], [place] [address] [place] [phone] Katja Umana M.D. [address] [place] [phone] Ascites Discharge Disposition: Home or Self Care Social History Tobacco Use Types Packs/Day Years Used Date Smoking Tobacco: Every Day Cigarettes 0.5 40 Smokeless Tobacco: Never Alcohol Use Standard Drinks/Week Comments Not Currently 0 (1 standard drink = 0.6 oz pur e alcohol) [facility] Utilities Answer Date Recorded In [...] Sex Assigned at Female 10/06/2023 10:50 AM SHAKE FEEDER Gender Identity Female 10/06/2023 10:50 AM SHAKE FEEDER Sexual Orientation Straight 10/06/2023 10 :50 AM SHAKE FEEDER documented as of this encounter Last Filed Vital Signs Vital Sign Reading Time Taken Comments Blood Pressure 116/58 10/22/2023 10:10 AM SHAKE FEEDER Pulse 102 10/22/2023 10:10 AM SHAKE FEEDER Temperature - - Respiratory Rate - - Oxygen Saturation 100% 10/22/2023 10:10 AM SHAKE FEEDER Inhaled Oxygen Concentration - - Weight - [...] Department of Nutrition and Diabetes Education in [place], [place] [address] [place] [phone] Katja Umana M.D. [address] [place] [phone] Taty Cunningham M.S., RDN, LD [address] [place] [phone] 02/04/2024 2:15 PM CDT Appointment Division of Gastroenterology in [place], [place] [address] [place] [phone] Katja Umana M.D. [address] [place] [phone] Hayden Smith M.D. [address] [place] [phone] 03/21/2024 1:00 PM CDT Virtual Visit Department of Nicotine Dependence, [facility], in [place], [place] [address] [place] [phone] documented as of this encounter Procedures Procedure Name Priority Date/Time Associated Diagnosis Comments US PARACENTESIS WITH IMAGING GUIDANCE RAD - Routine (most inpatients and all outpatients) 10/22/2023 10:18 AM SHAKE FEEDER Ascites BACTERIAL CULTURE, AEROBIC + SUSC Timed 10/22/2023 8:54 AM SHAKE FEEDER Ascites CELL COUNT AND DIFFERENTIAL, BF Timed 10/22/2023 8:54 AM SHAKE FEEDER Ascites documented in this encounter Results * US Paracentesis with Imaging Guidance (10/22/2023 10:18 AM SHAKE FEEDER) Anatomical Region Laterality Modality Abdomen, Ultrasound RST LOS, Ultrasound ARZ LOS, Procedure FLA LOS, Abdominal FLA LOS, Procedural, Procedural NWWI LOS N/A Ultrasound Impressions 10/22/2023 10:26 AM SHAKE FEEDER Ultrasound-guided diagnostic and therapeutic paracentesis. NR Narrative 10/22/2023 10:26 AM SHAKE FEEDER EXAM: US PARACENTESIS WITH IMAGING GUIDANCE PRE-PROCEDURE: [...] and Differential, Body Fluid (10/22/2023 8:54 AM SHAKE FEEDER) Fluid Type Peritoneal /Paracente sis 10/22/2023 10:30 AM SHAKE FEEDER DHPM Gross Appearance Serous 10/22/19 24 10:30 AM SHAKE FEEDER DHPM Total Nucleated Cells 171 /mcL 10/22/2023 10:30 AM SHAKE FEEDER DHPM Comment: ----REFERENCE VALUE---- Synovial: <150 /mcL Peritoneal: <500 /mcL Pleural: <500 /mcL Pericardial: <500 /mcL ----ADDITIONAL INFORMATION---- This test has been modified from the support services manager's instructions. Its performance characteristics were determined by [facility] in a manner consistent with CLIA requirements. This test has not been cleared or approved by the U.S. Food and Drug Administration. Neutrophils 2 % 10/22/2023 11:42 AM SHAKE FEEDER DHPM Comment: ----REFERENCE VALUE---- Synovial: <25% Peritoneal: <25% Pleural: <25% Pericardial: <25% Lymphocytes 14 Synovial <75% % 10/22/2023 11:42 AM SHAKE FEEDER DHPM Monocytes/Macropha ges 70 Synovial <70% % 10/22/2023 11:42 AM SHAKE FEEDER DHPM Other Cells 14 % 10/22/2023 11:42 AM SHAKE FEEDER DHPM Comment: ----REFERENCE VALUE---- The reference range and other method performance specifications have not been established for this bodyfluid. The test result must be integrated into the clinical context for interpretation. Other Cells Are: See Comment 10/22/2023 11:42 AM SHAKE FEEDER DHPM Comment:Mesothelial cells Comment See Comment 10/22/2023 11:42 AM SHAKE FEEDER DHPM Comment:No blasts or maligna nt cells seen. Reviewed by: Jose 10/22/2023 11:42 AM SHAKE FEEDER DHPM Fluid (Peritoneal Fluid) 10/22/2023 8:54 AM SHAKE FEEDER Felipe Morales M.D. LAB BODY FLUIDS AND STOOLS ORDERABLES [facility] [address] [place] [address], [facility] [address] [place] [address] * Bacterial Culture, Aerobic + Susceptibility (10/22/2023 8:54 AM SHAKE FEEDER) Bacterial Culture, Aerobic + Susc No growth after 5 days of incubation. 10/27/2023 11:39 AM SHAKE FEEDER DTL Fluid (Peritoneal Fluid) 10/22/2023 8:54 AM SHAKE FEEDER Narrative [facility] - 10/27/2023 11:39 AM SHAKE FEEDER Bacterial Culture: Placed in Bactec anaerobic bottle Bacterial Culture: Received Bactec aerobic bottle Felipe Morales M.D. LAB MICROBIOLOGY - GENERAL ORDERABLES Performing Organization Address City/[facility]/ZIP Co de Phone Number [facility] [address] [place] [address], [facility] [address] [place] [address] documented in this encounter Visit Diagnoses Diagnosis [...] provider's discretion) New Bag 10/22/2023 9:07 AM SHAKE FEEDER 25 g albumin human 25 % injection [...] provider's discretion) New Bag 10/22/2023 9:31 AM SHAKE FEEDER 25 g lidocaine 10 mg/mL (1 %) injection (XYLOCAINE) As needed, Starting on Wed10/22/23 at 0858, Intra-Op Given 10/22/2023 8:58 AM SHAKE FEEDER 10 mL Right Upper Abdomen documented in this encounter Active and Recently Administered Medications Times are shown in SHAKE FEEDER. Scheduled Medication Order 10/20/2023 10/21/2023 10/22/2023 albumin [...] 0907 (New Bag - Prov ider: Meagan Turk R.N.)0931 (Stopped - Provider: Meagan Turk R.N.) [...] Total Score: 3 10/20/19 24 7:30 AM SHAKE FEEDER documented as of this encounter
--- OUTSIDE RECORDS SUMMARY | 2024-01-09 19:49 | XMS_ITS | Encounter Summary ---
Author Name Unknown Organization [facility] Address [address] [place] [address] Care Team Providers Care X Ray Operator Name Role Phone Unavailable Primary Care Provider Unavailabl e Reason for Visit * Reason Onset Date Comments NDC Med Request 11/11/2023 Encounter Details Date Type Department Care Team (Latest Contact Info) Description 11/11/2023 Clinical Communication Department of Nicotine Dependence, [facility], in [place], [place] [address] [place] [phone] Sudha Bernstein M.A., L.I.C.S.W., M.S.W. [address] [place] [phone] NDC Med Request Social History Tobacco Use Types Packs/Day Years Used Date Smoking Tobacco: Every Day Cigarettes 0.5 40 Smokeless Tobacco: Never Alcohol Use Standard Drinks/Week Comments Not Currently 0 (1 standard drink = 0.6 oz pur e alcohol) [facility] Utilities Answer Date Recorded In the past 12 months has [employer], gas, oil, or water [email or web address] threatened to shut off services in your [...] Date Recorded Employment status Working with temporary [employer] 10/15/2023 Housing Stability Answer Date Recorded What is your living situation today? I have a [facility] place to live 10/15/2023 Sex and Gender Information Value Date Recorded Sex Assigned at Female 10/06/2023 10:50 AM SUPERINTENDENT CUSTODIAN JANITOR Gender Identity Female 10/06/2023 10:50 AM SUPERINTENDENT CUSTODIAN JANITOR Sexual Orientation Straight 10/06/2023 10 :50 AM SUPERINTENDENT CUSTODIAN JANITOR documented as of this encounter Miscellaneous Notes * Telephone Encounter - Sudha Bernstein M.A., L.I.C.S.W., M.S.W. - 11/11/2023 11:39 AM CST Sandra, this patient is interested in having a prescription sent to [facility] in [place], [place] for the following if appropriate after [...] if you have any questions. Thank you. RINTENDENT CUSTODIAN JANITOR documented in this encounter Plan of Treatment Upcoming Encounters Date Type Department Care Team (Late st Contact Info) Description 01/19/2024 10:00 AM CDT Telemedicine Department of Nutrition and Diabetes Education in [place], [place] [address] [place] [phone] Katja Umana M.D. [address] [place] [phone] Taty Cunningham M.S., RDN, LD [address] [place] [phone] 02/04/2024 2:15 PM CDT Appointment Division of Gastroenterology in [place], [place] [address] [place] [phone] Katja Umana M.D. [address] [place] [phone] Hayden Smith M.D. [address] [place] [phone] 03/21/2024 1:00 PM CDT Virtual Visit Department of Nicotine Dependence, [facility], in [place], [place] [address] [place] [phone] documented as of this encounter Visit Diagnoses Not on filedocumented in this encounter Additional Health Concerns Assessment Noted Time PHQ-9 Depression Total Score: 3 10/20/19 24 7:30 AM SUPERINTENDENT CUSTODIAN JANITOR documented as of this encounter
--- OUTSIDE RECORDS SUMMARY | 2024-01-09 19:49 | XMS_ITS | Encounter Summary ---
Author Name Unknown Organization [facility] Address [address] [place] [address] Care Team Providers Care Equipment Inspector Name Role Phone Unavailable Primary Care Provider Unavailabl e Reason for Referral * Outpatient (Routine) - Closed Specialty Diagnoses / Procedures Referred By Delgadoac t Referred To Contact Diagnoses Ascites Procedures US Paracentesis with Imaging Guidance Felipe Morales M.D. 200 [place] [phone] [facility] Referral ID Status Reason Start Date Expiration Date Visits Re quested Visits Authorized [id number] Closed 10/11/2023 10/10/2024 1 1 ERER Reason for Visit * Outpatient (Routine) - Closed Specialty Diagnoses / Procedures Referred By Dotty oakes Referred To Contact Diagnoses Ascites Procedures US Paracentesis with Imaging Guidance Felipe Morales M.D. 200 [place] [address] [facility] Referral ID Status Reason Start Date Expiration Date Visits Re quested Visits Authorized [id number] Closed 10/11/2023 10/10/2024 1 1 Encounter Details Date Type Department Care Team (Latest Contact Info) Description 11/05/2023 9:29 AM RENDERER - 11/05/2023 12:20 PM RENDERER Hospital Encounter Department of Radiology, [facility], in [place], [place] [address] [place] [phone] Felipe Morales M.D. [address] [place] [phone] Ascites Discharge Disposition: Home or Self Care Social History Tobacco Use Types Packs/Day Years Used Date Smoking Tobacco: Every Day Cigarettes 0.5 40 Smokeless Tobacco: Never Alcohol Use Standard Drinks/Week Comments Not Currently 0 (1 standard drink = 0.6 oz pur e alcohol) [facility] Utilities Answer Date Recorded In the past 12 months has th e [employer], gas, oil, or water company threatened to [...] Sex Assigned at Female 10/06/2023 10:50 AM RENDERER Gender Identity Female 10/06/2023 10:50 AM RENDERER Sexual Orientation Straight 10/06/2023 10 :50 AM RENDERER documented as of this encounter Last Filed Vital Signs Vital Sign Reading Time Taken Comments Blood Pressure 106/56 11/05/2023 11:17 AM RENDERER Pulse 88 11/05/2023 11:17 AM RENDERER Temperature - - Respiratory Rate - - Oxygen Saturation 100% 11/05/2023 11:17 AM RENDERER Inhaled Oxygen Concentration - - Weight - - Height - - Body Mass Index - - documented in this encounter Discharge Instructions * Attachments The following attachments cannot be sent through Care Everywhere. * Paracentesis (Stateless) documented in this encounter Medications at Time [...] Department of Nutrition and Diabetes Education in [place], [place] [address] [place] [phone] Katja Umana M.D. [address] [place] [phone] Taty Cunningham M.S., RDN, LD [address] [place] [phone] 02/04/2024 2:15 PM CDT Appointment Division of Gastroenterology in [address] [phone] Katja Umana M.D. [address] [place] [phone] Hayden Smith M.D. [address] [place] [phone] 03/21/2024 1:00 PM CDT Virtual Visit Department of Nicotine Dependence, [facility], in [place], [place] [address] [place] [phone] documented as of this encounter Procedures Procedure Name Priority Date/Time Associated Diagnosis Comments US PARACENTESIS WITH IMAGING GUIDANCE RAD - Routine (most inpatients and all outpatients) 11/05/2023 11:25 AM RENDERER Ascites BACTERIAL CULTURE, AEROBIC + SUSC Timed 11/05/2023 10:07 AM RENDERER Ascites CELL COUNT AND DIFFERENTIAL, BF Timed 11/05/2023 10:07 AM RENDERER Ascites documented in this encounter Results * US Paracentesis with Imaging Guidance (11/05/2023 11:25 AM RENDERER) Anatomical Region Laterality Modality Abdomen, Ultrasound RST LOS, Ultrasound ARZ LOS, Procedure FLA LOS, Abdominal FLA LOS, Procedural, Procedural NWWI LOS N/A Ultrasound Impressions 11/05/2023 11:28 AM RENDERER Ultrasound-guided diagnostic and therapeutic paracentesis. NR Narrative 11/05/2023 11:28 AM RENDERER EXAM: US PARACENTESIS WITH IMAGING GUIDANCE PRE-PROCEDURE: [...] lower quadrant peritoneal space. Needle size: 5 Persian centesis catheter. Volume aspirated: 6.8 liters aspirated, [...] lower quadrant peritoneal space. Needle size: 5 Persian centesis catheter. Volume aspirated: 6.8 liters aspirated, [...] therapeutic paracentesis. NR Felipe FOSS US PROCEDURES * Cell Count and Differential, Body Fluid (11/05/2023 10:07 AM RENDERER) Fluid Type Peritoneal /Paracente sis 11/05/2023 11:13 AM RENDERER DHPM Gross Appearance Serous 11/05/19 24 11:13 AM RENDERER DHPM Total Nucleated Cells 282 /mcL 11/05/2023 11:13 AM RENDERER DHPM Comment: ----REFERENCE VALUE---- Synovial: <150 /mcL Peritoneal: <500 /mcL Pleural: <500 /mcL Pericardial: <500 /mcL ----ADDITIONAL INFORMATION---- This test has been modified from the branding specialist's instructions. Its performance characteristics were determined by [facility] in a manner consistent with CLIA requirements. This test has not been cleared or approved by the U.S. Food and Drug Administration. Neutrophils 3 % 11/05/2023 12:54 PM RENDERER DHPM Comment: ----REFERENCE VALUE---- Synovial: <25% Peritoneal: <25% Pleural: <25% Pericardial: <25% Lymphocytes 26 Synovial <75% % 11/05/2023 12:54 PM RENDERER DHPM Monocytes/Macropha ges 64 Synovial <70% % 11/05/2023 12:54 PM RENDERER DHPM Other Cells 7 % 11/05/2023 12:54 PM RENDERER DHPM Comment: ----REFERENCE VALUE---- The reference range and other method performance specifications have not been established for this bodyfluid. The test result must be integrated into the clinical context for interpretation. Other Cells Are: See Comment 11/05/2023 12:54 PM RENDERER DHPM Comment:Mesothelial cells Comment See Comment 11/05/2023 12:54 PM RENDERER DHPM Comment:No blasts or maligna nt cells seen.Erythrophagocytosis present. Reviewed by: Jose 11/05/2023 12:54 PM RENDERER DHPM Fluid (Peritoneal Fluid) 11/05/2023 10:07 AM RENDERER Felipe Morales M.D. LAB BODY FLUIDS AND STOOLS ORDERABLES Performing Organization Address [facility] Co de Phone Number [facility] 200 [place] [address], [facility] 200 [place] [address] * Bacterial Culture, Aerobic + Susceptibility (11/05/2023 10:07 AM RENDERER) Bacterial Culture, Aerobic + Susc No growth after 5 days of incubation. 2023 7:33 AM RENDERER DTL Fluid (Peritoneal Fluid) 11/05/2023 10:07 AM RENDERER Narrative [facility] - 2023 7:33 AM RENDERER Bacterial Culture: Received Bactec aerobic and Bactec anaerobic bottles Felipe Morales M.D. LAB MICROBIOLOGY - GENERAL ORDERABLES Performing Organization Address [facility] de Phone Number [facility] 200 [place] [address], [facility] 200 [place] [address] documented in this encounter Visit Diagnoses Diagnosis [...] 100 mL/hr New Bag 11/05/2023 10:39 AM RENDERER 25 g albumin human 25 % injection 25 g 25 g, intravenous, Once, On Wed11/05/23 at 1130, For 1 dose, If no infusion rate specified: Administer the 25% solution at 100 mL/hr New Bag 11/05/2023 11:20 AM RENDERER 25 g lidocaine 10 mg/mL (1 %) injection (XYLOCAINE) As needed, Starting on Wed11/05/23 at 1023, Intra-Op Given 11/05/2023 10:23 AM RENDERER 10 mL Abdominal Tissue documented in this encounter Active and Recently Administered Medications Times are shown in RENDERER. Scheduled Medication Order 11/03/2023 11/04/2023 11/05/2023 albumin human 25 % injection 25 g (COMPLETED) 25 g, intravenous, Once, On Wed11/05/23 at 1100, For 1 dose, If no infusion rate specified: Administer the 25% solution at 100 mL/hr 1039 (New Bag - Prov ider: Poppy Graves RMark)1105 (Stopped - Provider: Poppy Graves R.N.) albumin human 25 % injection 25 g (COMPLETED) 25 g, intravenous, Once, On Wed11/05/23 at 1130, For 1 dose, If no infusion rate specified: Administer the 25% solution at 100 mL/hr 1120 (New Bag - Prov ider: Poppy Graves RMark) PRN Medication Order 11/03/2023 11/04/2023 11/05/2023 lidocaine 10 mg/mL (1 %) injection (XYLOCAINE) (COMPLETED) As needed, Starting on Wed11/05/23 at 1023, Intra-Op 1023 (Given - Provid er: Ning Crum M.D.) documented in this encounter Additional Health Concerns Assessment Noted Time PHQ-9 Depression Total Score: 3 10/20/19 24 7:30 AM RENDERER documented as of this encounter
--- OUTSIDE RECORDS SUMMARY | 2024-01-09 19:49 | XMS_ITS | Encounter Summary ---
Author Name Unknown Organization [facility] Address [address] [place] [address] Care Team Providers Care Emergency Planning And Response Manager Name Role Phone Unavailable Primary Care Provider Unavailabl e Reason for Visit * Reason Onset Date Comments NDC Med Request 10/28/2023 Encounter Details Date Type Department Care Team (Latest Contact Info) Description 10/28/2023 Clinical Communication Department of Nicotine Dependence, [facility], in [place], [place] [address] [place] [phone] Sudha Bernstein M.A., L.I.C.S.W., M.S.W. [address] [place] [phone] NDC Med Request Social History Tobacco Use Types Packs/Day Years Used Date Smoking Tobacco: Every Day Cigarettes 0.5 40 Smokeless Tobacco: Never Alcohol Use Standard Drinks/Week Comments Not Currently 0 (1 standard drink = 0.6 oz pur e alcohol) [facility] Utilities Answer Date Recorded In the past 12 months has [employer], gas, oil, or water [employer] threatened to shut off services in your [...] Date Recorded Employment status Working with temporary [email or web address] 10/15/2023 Housing Stability Answer Date Recorded What is your living situation today? I have a [facility] place to live 10/15/2023 Sex and Gender Information Value Date Recorded Sex Assigned at Female 10/06/2023 10:50 AM FUR REPAIRER Gender Identity Female 10/06/2023 10:50 AM FUR REPAIRER Sexual Orientation Straight 10/06/2023 10 :50 AM FUR REPAIRER documented as of this encounter Miscellaneous Notes * Addendum Note - Raisa Hunt M.D. - 10/28/2023 5:01 PM CSTAddended by: RAISA HUNT on: 10/28/2023 05:01 PM Modules accepted: Orders REPAIRER * Telephone Encounter - Sudha Bernstein M.A., L.I.C.S.W., M.S.W. - 10/28/2023 11:[address] Hunt, this patient is interested in having a prescription for Varenicline and nicotine lozenges sent to [facility] in [place], [place] for smoking cessation if appropriate based on your review of her medical record. Varenicline Starter Pack with refills 2 mg nicotine lozenges Thank you. REPAIRER documented in this encounter Plan of Treatment Upcoming Encounters Date Type Department Care Team (Late st Contact Info) Description 01/19/2024 10:00 AM CDT Telemedicine Department of Nutrition and Diabetes Education in [place], [place] [address] [place] [phone] Katja Umana M.D. [address] [place] [phone] Taty Cunningham M.S., RDN, LD [address] [place] [phone] 02/04/2024 2:15 PM CDT Appointment Division of Gastroenterology in [place], [place] [address] [place] [phone] Katja Umana M.D. [address] [place] [phone] Hayden Smith M.D. [address] [place] [phone] 03/21/2024 1:00 PM CDT Virtual Visit Department of Nicotine Dependence, [facility], in [place], [place] [address] [place] [phone] documented as of this encounter Visit Diagnoses Diagnosis Nicotine Dependence Cigarettes- Primary documented in this encounter Additional Health Concerns Assessment Noted Time PHQ-9 Depression Total Score: 3 10/20/19 24 7:30 AM FUR REPAIRER documented as of this encounter
--- OUTSIDE RECORDS SUMMARY | 2024-01-09 19:49 | XMS_ITS | Encounter Summary ---
Author Name Unknown Organization [facility] Address [address] [place] [address] Care Team Providers Care Senior Tech Manufacturing Engineering Name Role Phone Unavailable Primary Care Provider Unavailabl e Reason for Referral * Outpatient (Routine) - Closed Specialty Diagnoses / Procedures Referred By Contlulu t Referred To Contact Nicotine Dependence Sudha Bernstein M.A., DonnS.Tom, M.S.W. [address] [place] [phone] [facility] Referral ID Status Reason Start Date Expiration Date Visits Re quested Visits Authorized [id number] Closed 11/18/2023 05/19/2025 1 1 Scheduling Instructions Please schedule a follow up phone visit. LOADER HELPER Encounter Details Date Type Department Care Team (Late st Contact Info) Description 11/18/2023 Orders Only Department of Nicotine Dependence, [facility] in [place], [place] [address] [place] [phone] Sudha Bernstein M.A., NubiaC.S.W., M.S.W. [address] [place] [phone] Social History Tobacco Use Types Packs/Day Years Used Date Smoking Tobacco: Every Day Cigarettes 0.5 40 Smokeless Tobacco: Never Alcohol Use Standard Drinks/Week Comments Not Currently 0 (1 standard drink = 0.6 oz pur e alcohol) [facility] Utilities Answer Date Recorded In the past 12 months has e electric, gas, oil, or water [employer] threatened to shut off services in your [...] Date Recorded Employment status Working with temporary [employer] 10/15/2023 Housing Stability Answer Date Recorded What is your living situation today? I have a [facility] place to live 10/15/2023 Sex and Gender Information Value Date Recorded Sex Assigned at Female 10/06/2023 10:50 AM BOAT LOADER HELPER Gender Identity Female 10/06/2023 10:50 AM BOAT LOADER HELPER Sexual Orientation Straight 10/06/2023 10 :50 AM BOAT LOADER HELPER documented as of this encounter Plan of Treatment Upcoming Encounters Date Type Department Care Team (Late st Contact Info) Description 01/19/2024 10:00 AM CDT Telemedicine Department of Nutrition and Diabetes Education in [place], [place] [address] [place] [phone] Katja Umana M.D. [address] [place] [phone] Taty Cunningham M.S., RDN, LD [address] [place] [phone] 02/04/2024 2:15 PM CDT Appointment Division of Gastroenterology in [place], [place] [address] [place] [phone] Katja Umana M.D. [address] [place] [phone] Hayden Smith M.D. [address] [place] [phone] 03/21/2024 1:00 PM CDT Virtual Visit Department of Nicotine Dependence, [facility], in [place], [place] [address] [place] [phone] Scheduled Referrals Name Type Priority Associated Diagnoses Order Schedule Nicotine Dependence office visit (clinic) Outpatient Referral Routine Expected: 12/20/2023, Expires: 02/17/2025 documented as of this encounter Visit Diagnoses Not on filedocumented in this encounter Additional Health Concerns Assessment Noted Time PHQ-9 Depression Total Score: 3 10/20/19 24 7:30 AM BOAT LOADER HELPER documented as of this encounter
--- OUTSIDE RECORDS SUMMARY | 2024-01-09 19:49 | XMS_ITS | Encounter Summary ---
Author Name Unknown Organization [facility] Address [address] [place] [address] Care Team Providers Care Bingo Usher Name Role Phone Unavailable Primary Care Provider Unavailabl e Encounter Details Date Type Department Care Team (Latest Contact Info) Description 10/27/2023 10:26 AM BUFF WHEEL FABRICATOR - 10/27/2023 11:59 PM BUFF WHEEL FABRICATOR Hospital Encounter Department of Laboratory Medicine in [address] [phone] Katja Umana M.D. [address] [place] [address] Alcoholic Cirrhosis Of Liver With Ascites (HCC); Alcohol Moderate Or Severe Use Disorder (Dependence) Uncomplicated (HCC) Discharge Disposition: Home or Self Care Social History Tobacco Use Types Packs/Day Years Used Date Smoking Tobacco: Every Day Cigarettes 0.5 40 Smokeless Tobacco: Never Alcohol Use Standard Drinks/Week Comments Not Currently 0 (1 standard drink = 0.6 oz pur e alcohol) [facility] Utilities Answer Date Recorded In the past 12 months has e [employer], gas, oil, or water [employer] threatened to shut off services in your [...] Date Recorded Employment status Working with temporary [employer] 10/15/2023 Housing Stability Answer Date Recorded What is your living situation today? I have a [facility] place to live 10/15/2023 Sex and Gender Information Value Date Recorded Sex Assigned at Female 10/06/2023 10:50 AM BUFF WHEEL FABRICATOR Gender Identity Female 10/06/2023 10:50 AM BUFF WHEEL FABRICATOR Sexual Orientation Straight 10/06/2023 10 :50 AM BUFF WHEEL FABRICATOR documented as of this encounter Medications at [...] Department of Nutrition and Diabetes Education in [place], [place] [address] [place] [phone] Katja Umana M.D. [address] [place] [phone] Taty Cunningham M.S., RDN, LD [address] [place] [phone] 02/04/2024 2:15 PM CDT Appointment Division of Gastroenterology in [place], [place] [address] [place] [phone] Katja Umana M.D. [address] [place] [phone] Hayden Smith M.D. [address] [place] [phone] 03/21/2024 1:00 PM CDT Virtual Visit Department of Nicotine Dependence, [facility] in [address] [phone] documented as of this encounter Procedures Procedure Name Priority Date/Time Associated Diagnosis Comments PHOSPHATIDYLETHANOL CONFIRMATION, B Routine 10/27/2023 10:33 AM BUFF WHEEL FABRICATOR Alcohol Moderate Or Severe Use Disorder (Dependence) Uncomplicated (HCC) BASIC METABOLIC PANEL, S/P Routine 10/27 10:33 AM BUFF WHEEL FABRICATOR Alcoholic Cirrhosis Of Liver With Ascites (HCC) documented in this encounter Results * Phosphatidylethanol Confirmation (10/27/2023 10:33 AM BUFF WHEEL FABRICATOR) [facility] 16:0/18:1 (POPEth) by LC-MS/MS <20 Cutoff: 10 ng/mL 10/29/2023 8:22 PM BUFF WHEEL FABRICATOR [facility] Comment: Testing performed at a [...] <10 Cutoff: 10 ng/mL 10/29/2023 8:22 PM [facility] Comment: PE[facility] 16:0/18:2 (PLPEth) Reference ranges are not well established PEth Interpretation Negative. 10/29 8:22 PM [facility] Comment: ----ADDITIONAL INFORMATION---- This report is intended for use in clinical monitoring and management of patients. ??It is not intended for use in employment-related testing. This test was developed and its performance characteristics determined by [facility] in a manner consistent with CLIA requirements. This test has not been cleared or approved by the U.S. Food and Drug Administration. Blood (Blood, Venous) 10/27/2023 10:33 AM BUFF WHEEL FABRICATOR 10/27/2023 9:57 PM BUFF WHEEL FABRICATOR Romana Diane M.D., Ph.D. LAB BLO OD ADD-ON [facility] [address] [place] [address] [facility] [address] [place] [address] [place] [address] * (ABNORMAL) Basic Metabolic Panel (10/27/2023 10:33 AM BUFF WHEEL FABRICATOR) [facility] Potassium, P 3.6 3.6 - 5.2 mmol/L 10/27/2023 10:57 AM BUFF WHEEL FABRICATOR [facility] Sodium, P 125(L) 135 - 145 mmol/L 10/27/2023 10:57 AM BUFF WHEEL FABRICATOR [facility] Chloride, P 92(L) 98 - 107 mmol/L 10/27/2023 10:57 AM BUFF WHEEL FABRICATOR [facility] Bicarbonate, P 21(L) 22 - 29 mmol/L 10/27/2023 10:57 AM BUFF WHEEL FABRICATOR [facility] Anion Gap, P 12 7 - 15 10/27/2023 10:57 AM BUFF WHEEL FABRICATOR [facility] BUN (Blood Urea Nitrogen), P 10 6 - 21 mg/dL 10/27/2023 10:57 AM BUFF WHEEL FABRICATOR [facility] Creatinine 0.47(L) 0.59 - 1.04 mg/dL 10/27/2023 10:57 AM BUFF WHEEL FABRICATOR [facility] Estimated GFR (eGFR) >90 >=60 mL/min/BSA 10/27/2023 10:57 AM BUFF WHEEL FABRICATOR [facility] Comment: Estimated GFR calculated using the 2020 CKD_EPI creatinine equation. Calcium, Total, P 8.4(L) 8.8 - 10.2 mg/dL 10/27/2023 10:57 AM BUFF WHEEL FABRICATOR [facility] Glucose, P 93 70 - 140 mg/dL 10/27/2023 10:57 AM BUFF WHEEL FABRICATOR [facility] Blood (Blood, Venous) 10/27/2023 10:33 AM BUFF WHEEL FABRICATOR 10/27/2023 10:36 AM BUFF WHEEL FABRICATOR Katja Umana M.D. LAB BLOOD ADD-ON [facility] [address] [place], [place] [id number], [facility] CNFL [facility] in [address] [address] documented in this encounter Visit Diagnoses Diagnosis Alcoholic Cirrhosis Of Liver With Ascites (HCC) Alcohol Moderate Or Severe Use Disorder (Dependence) Uncomplicated (HCC) documented in this encounter Additional Health Concerns Assessment Noted Time PHQ-9 Depression Total Score: 3 10/20/19 24 7:30 AM BUFF WHEEL FABRICATOR documented as of this encounter
--- OUTSIDE RECORDS SUMMARY | 2024-01-09 19:49 | XMS_ITS | Encounter Summary ---
Author Name Unknown Organization [facility] Address [address] [place] [address] Care Team Providers Care Dairy Equipment Specialist Name Role Phone Unavailable Primary Care Provider Unavailabl e Encounter Details Date Type Department Care Team (Latest Contact Info) Description 10/24/2023 Clinical Communication Division of Gastroenterology in [place], [place] [address] [place] [phone] Katja Aguilera M.D. [address] [place] [phone] Social History Tobacco Use Types Packs/Day Years Used Date Smoking Tobacco: Every Day Cigarettes 0.5 40 Smokeless Tobacco: Never Alcohol Use Standard Drinks/Week Comments Not Currently 0 (1 standard drink = 0.6 oz pur e alcohol) [facility] Utilities Answer Date Recorded In [...] your living situation today? I have a [facility] to live 10/15/2023 Sex and Gender Information Value Date Recorded Sex Assigned at Female 10/06/2023 10:50 AM CONE MACHINE OPERATOR Gender Identity Female 10/06/2023 10:50 AM CONE MACHINE OPERATOR Sexual Orientation Straight 10/06/2023 10 :50 AM CONE MACHINE OPERATOR documented as of this encounter Progress [...] I have sent an order to her [facility] Rajiv Taylor. She also reports ongoing difficulty with sleep, despite taking melatonin 10 mg nig htly. We will initiate trazodone at low dose, with 50 mg nightly. She was in agreement with the plan. MACHINE OPERATOR documented in this encounter Miscellaneous Notes * Addendum Note - Katja Aguilera M.D. - 10/24/2023 11:17 AM CSTAddended by: KATJA AGUILERA on: 10/24/2023 11:17 AM Modules accepted: Orders MACHINE OPERATOR documented in this encounter Plan of Treatment Upcoming Encounters Date Type Department Care Team (Late st Contact Info) Description 01/19/2024 10:00 AM CDT Telemedicine Department of Nutrition and Diabetes Education in [place], [place] [address] [place] [phone] Katja Aguilera M.D. [address] [place] [phone] Taty Cunningham M.S., RDN, LD [address] [place] [phone] 02/04/2024 2:15 PM CDT Appointment Division of Gastroenterology in [place], [place] [address] [place] [phone] Katja Aguilera M.D. [address] [place] [phone] Hayden Smith M.D. [address] [place] [phone] 03/21/2024 1:00 PM CDT Virtual Visit Department of Nicotine Dependence, [facility], in [place], [place] [address] [place] [phone] documented as of this encounter Results * (ABNORMAL) Basic Metabolic Panel (10/27/2023 10:33 AM CONE MACHINE OPERATOR) [facility] Potassium, P 3.6 3.6 - 5.2 mmol/L 10/27/2023 10:57 AM CONE MACHINE OPERATOR CNFL Sodium, P 125(L) 135 - 145 mmol/L 10/27/2023 10:57 AM CONE MACHINE OPERATOR CNFL Chloride, P 92(L) 98 - 107 mmol/L 10/27/2023 10:57 AM CONE MACHINE OPERATOR CNFL Bicarbonate, P 21(L) 22 - 29 mmol/L 10/27/2023 10:57 AM CONE MACHINE OPERATOR CNFL Anion Gap, P 12 7 - 15 10/27/2023 10:57 AM CONE MACHINE OPERATOR CNFL BUN (Blood Urea Nitrogen), P 10 6 - 21 mg/dL 10/27/2023 10:57 AM CONE MACHINE OPERATOR CNFL Creatinine 0.47(L) 0.59 - 1.04 mg/dL 10/27/2023 10:57 AM CONE MACHINE OPERATOR CNFL Estimated GFR (eGFR) >90 >=60 mL/min/BSA 10/27/2023 10:57 AM CONE MACHINE OPERATOR CNFL Comment: Estimated GFR calculated using the 2020 CKD_EPI creatinine equation. Calcium, Total, P 8.4(L) 8.8 - 10.2 mg/dL 10/27/2023 10:57 AM CONE MACHINE OPERATOR CNFL Glucose, P 93 70 - 140 mg/dL 10/27/2023 10:57 AM CONE MACHINE OPERATOR CNFL Blood (Blood, Venous) 10/27/2023 10:33 AM CONE MACHINE OPERATOR 10/27/2023 10:36 AM CONE MACHINE OPERATOR Katja Aguilera M.D. LAB BLOOD ADD-ON Performing Organization Address City/State/[facility] Co de Phone Number [facility] [address] [place] [phone], [facility] CNFL [facility] in [address] [address] documented in this encounter Visit Diagnoses Diagnosis Alcoholic Cirrhosis Of Liver With Ascites (HCC)- Primary documented in this encounter Additional Health Concerns Assessment Noted Time PHQ-9 Depression Total Score: 3 10/20/19 24 7:30 AM CONE MACHINE OPERATOR documented as of this encounter
--- OUTSIDE RECORDS SUMMARY | 2024-01-09 19:49 | XMS_ITS | Encounter Summary ---
Author Name Unknown Organization [facility] Address [address] [place] [address] Care Team Providers Care Heel Cementer Name Role Phone Unavailable Primary Care Provider Unavailabl e Reason for Visit * Reason Comments Nicotine Dependence * Outpatient (Routine) - Closed Specialty Diagnoses / Procedures Referred By Contlulu t Referred To Contact Nicotine Dependence Sudha Bernstein M.A., Yesy.I.C.S.W., M.S.W. [address] [place] [phone] [facility] Referral ID Status Reason Start Date Expiration Date Visits Re quested Visits Authorized [id number] Closed 10/28/2023 04/28/2025 1 1 Encounter Details Date Type Department Care Team (Late st Contact Info) Description 11/11/2023 11:00 AM RAIL SETTER Virtual Visit Department of Nicotine Dependence, [facility], in [place], [place] [address] [place] [phone] Sudha Bernstein M.A., L.I.C.S.W., M.S.W. [address] [place] [phone] Nicotine Dependence Cigarettes With Withdrawal (Primary Dx) Social History Tobacco Use Types Packs/Day Years Used Date Smoking Tobacco: Every Day Cigarettes 0.5 40 Smokeless Tobacco: Never Alcohol Use Standard Drinks/Week Comments Not Currently 0 (1 standard drink = 0.6 oz pur e alcohol) [facility] Utilities Answer Date Recorded In the past 12 months has [employer], gas, oil, or water company threatened [...] Sex Assigned at Female 10/06/2023 10:50 AM RAIL SETTER Gender Identity Female 10/06/2023 10:50 AM RAIL SETTER Sexual Orientation Straight 10/06/2023 10 :50 AM RAIL SETTER documented as of this encounter Progress Notes [...] concerns. The patient denied interest in having [facility] staff ask the [facility] medicalprovider if they recommend a different dose [...] to tape and the patient was informed [facility] staff can ask the [facility] medical provider to write on the prescription [...] 25 minutes was spent on tobacco counseling. SETTER documented in this encounter Plan of Treatment Upcoming Encounters Date Type Department Care Team (Late st Contact Info) Description 01/19/2024 10:00 AM CDT Telemedicine Department of Nutrition and Diabetes Education in [place], [place] [address] [place] [phone] Katja Umana M.D. [address] [place] [phone] Taty Cunningham M.S., RDN, LD [address] [place] [phone] 02/04/2024 2:15 PM CDT Appointment Division of Gastroenterology in [place], [place] [address] [place] [phone] Katja Umana M.D. [address] [place] [phone] Hayden Smith M.D. [address] [place] [phone] 03/21/2024 1:00 PM CDT Virtual Visit Department of Nicotine Dependence, [facility], in [place], [place] [address] [place] [phone] documented as of this encounter Visit Diagnoses Diagnosis Nicotine Dependence Cigarettes With Withdrawal- Primary documented in this encounter Additional Health Concerns Assessment Noted Time PHQ-9 Depression Total Score: 3 10/20/19 24 7:30 AM RAIL SETTER documented as of this encounter
--- OUTSIDE RECORDS SUMMARY | 2024-01-09 19:49 | XMS_ITS | Encounter Summary ---
Author Name Unknown Organization [facility] Address [address] [place] [address] Care Team Providers Care Rigging Helper Name Role Phone Unavailable Primary Care Provider Unavailabl e Reason for Referral * Outpatient (Routine) - Closed Specialty Diagnoses / Procedures Referred By Delgadoac t Referred To Contact Diagnoses Ascites Procedures US Paracentesis with Imaging Guidance Felipe Morales M.D. [address] [place] [phone] [facility] Referral ID Status Reason Start Date Expiration Date Visits Re quested Visits Authorized [id number] Closed 10/11/2023 10/10/2024 1 1 OLOGY STROKE PHYSICIAN Reason for Visit * Outpatient (Routine) - Closed Specialty Diagnoses / Procedures Referred By Dotty oakes Referred To Contact Diagnoses Ascites Procedures US Paracentesis with Imaging Guidance Felipe Morales M.D. 200 [place] [phone] [facility] Referral ID Status Reason Start Date Expiration Date Visits Re quested Visits Authorized [id number] Closed 10/11/2023 10/10/2024 1 1 Encounter Details Date Type Department Care Team (Latest Contact Info) Description 11/19/2023 10:08 AM NEUROLOGY STROKE PHYSICIAN - 11/19/2023 12:51 PM NEUROLOGY STROKE PHYSICIAN Hospital Encounter Department of Radiology, [facility], in [place], [place] [address] [place] [phone] Felipe Morales M.D. [address] [place] [phone] Ascites Discharge Disposition: Home or Self Care Social History Tobacco Use Types Packs/Day Years Used Date Smoking Tobacco: Every Day Cigarettes 0.5 40 Smokeless Tobacco: Never Alcohol Use Standard Drinks/Week Comments Not Currently 0 (1 standard drink = 0.6 oz pur e alcohol) [facility] Utilities Answer Date Recorded In the past 12 months has th e [employer], gas, oil, or water company threatened to [...] your living situation today? I have a [facility] place to live 10/15/2023 Sex and Gender Information Value Date Recorded Sex Assigned at Female 10/06/2023 10:50 AM NEUROLOGY STROKE PHYSICIAN Gender Identity Female 10/06/2023 10:50 AM NEUROLOGY STROKE PHYSICIAN Sexual Orientation Straight 10/06/2023 10 :50 AM NEUROLOGY STROKE PHYSICIAN documented as of this encounter Last Filed Vital Signs Vital Sign Reading Time Taken Comments Blood Pressure 91/46 11/19/2023 11:45 AM NEUROLOGY STROKE PHYSICIAN Pulse 84 11/19/2023 11:45 AM NEUROLOGY STROKE PHYSICIAN Temperature - - Respiratory Rate - - Oxygen Saturation 100% 11/19/2023 11:45 AM NEUROLOGY STROKE PHYSICIAN Inhaled Oxygen Concentration - - Weight - [...] Department of Nutrition and Diabetes Education in [place], [place] [address] [place] [phone] Katja Umana M.D. [address] [place] [phone] Taty Cunningham M.S., RDN, LD [address] [place] [phone] 02/04/2024 2:15 PM CDT Appointment Division of Gastroenterology in [place], [place] [address] [place] [phone] Katja Umana M.D. [address] [place] [phone] Hayden Smith M.D. [address] [place] [phone] 03/21/2024 1:00 PM CDT Virtual Visit Department of Nicotine Dependence, [facility], in [place], [place] [address] [place] [phone] Scheduled Orders Name Type Priority Associated Diagnoses Order Schedule Bacterial Culture, Aerobic + Susceptibility Microbiology Timed Ascites For manual release during upcoming procedure for 1 Occurrences starting 11/19/2023 until 11/19/2023 documented as of this encounter Procedures Procedure Name Priority Date/Time Associated Diagnosis Comments US PARACENTESIS WITH IMAGING GUIDANCE RAD - Routine (most inpatients and all outpatients) 11/19/2023 11:55 AM NEUROLOGY STROKE PHYSICIAN Ascites BACTERIAL CULTURE, AEROBIC + SUSC Timed 11/19/2023 10:50 AM NEUROLOGY STROKE PHYSICIAN Ascites CELL COUNT AND DIFFERENTIAL, BF Timed 11/19/2023 10:50 AM NEUROLOGY STROKE PHYSICIAN Ascites documented in this encounter Results * US Paracentesis with Imaging Guidance (11/19/2023 11:55 AM NEUROLOGY STROKE PHYSICIAN) Anatomical Region Laterality Modality Abdomen, Ultrasound RST LOS, Ultrasound ARZ LOS, Procedure FLA LOS, Abdominal FLA LOS, Procedural, Procedural NWWI LOS N/A Ultrasound Impressions 11/19/2023 12:26 PM NEUROLOGY STROKE PHYSICIAN Ultrasound-guided paracentesis. EP Narrative 11/19/2023 12:26 PM NEUROLOGY STROKE PHYSICIAN EXAM: US PARACENTESIS WITH IMAGING GUIDANCE PRE-PROCEDURE: [...] Culture, Aerobic + Susceptibility (11/19/2023 10:50 AM NEUROLOGY STROKE PHYSICIAN) Bacterial Culture, Aerobic + Susc No growth after 5 days of incubation. 11/24/2023 8:27 AM CDT DTL Fluid (Peritoneal Fluid) 11/19/2023 10:50 AM NEUROLOGY STROKE PHYSICIAN Narrative [facility] - 11/24/2023 8:27 AM CDT Bacterial Culture: Received Bactec aerobic and Bactec anaerobic bottles Felipe Morales M.D. LAB MICROBIOLOGY - GENERAL ORDERABLES [facility] [address] DTL [facility] [address] [place] [address] * Cell Count and Differential, Body Fluid (11/19/2023 10:50 AM NEUROLOGY STROKE PHYSICIAN) Fluid Type Peritoneal /Paracente sis 11/19/2023 12:39 PM NEUROLOGY STROKE PHYSICIAN [facility] Gross Appearance Serous 11/19/19 24 12:39 PM NEUROLOGY STROKE PHYSICIAN [facility] Total Nucleated Cells 201 /mcL 11/19/2023 12:39 PM NEUROLOGY STROKE PHYSICIAN [facility] Comment: ----REFERENCE VALUE---- Synovial: <150 /mcL Peritoneal: <500 /mcL Pleural: <500 /mcL Pericardial: <500 /mcL ----ADDITIONAL INFORMATION---- This test has been modified from the mail courier's instructions. Its performance characteristics were determined by [facility] in a manner consistent with CLIA requirements. This test has not been cleared or approved by the U.S. Food and Drug Administration. Neutrophils 20 % 11/19/2023 1:42 PM NEUROLOGY STROKE PHYSICIAN [facility] Comment: ----REFERENCE VALUE---- Synovial: <25% Peritoneal: <25% Pleural: <25% Pericardial: <25% Lymphocytes 16 Synovial <75% % 11/19/2023 1:42 PM NEUROLOGY STROKE PHYSICIAN [facility] Monocytes/Macropha ges 60 Synovial <70% % 11/19/2023 1:42 PM NEUROLOGY STROKE PHYSICIAN [facility] Other Cells 4 % 11/19/2023 1:42 PM NEUROLOGY STROKE PHYSICIAN [facility] Comment: ----REFERENCE VALUE---- The reference range and other method performance specifications have not been established for this bodyfluid. The test result must be integrated into the clinical context for interpretation. Other Cells Are: See Comment 11/19/2023 1:42 PM NEUROLOGY STROKE PHYSICIAN [facility] Comment:Mesothelial cells Comment See Comment 11/19/2023 1:42 PM NEUROLOGY STROKE PHYSICIAN [facility] Comment:No blasts or maligna nt cells seen. Reviewed by: Jose 11/19/2023 1:42 PM NEUROLOGY STROKE PHYSICIAN [facility] Fluid (Peritoneal Fluid) 11/19/2023 10:50 AM NEUROLOGY STROKE PHYSICIAN Felipe Morales M.D. LAB BODY FLUIDS AND STOOLS ORDERABLES [facility] [address] [place] [address], [facility] [address] [place] [address] documented in this encounter Visit Diagnoses Diagnosis [...] provider's discretion) New Bag 11/19/2023 11:11 AM NEUROLOGY STROKE PHYSICIAN 50 g 100 mL/hr lidocaine 10 mg/mL (1 %) injection (XYLOCAINE) As needed, Starting on Wed11/19/23 at 1056, Intra-Op Given 11/19/2023 10:56 AM NEUROLOGY STROKE PHYSICIAN 5 mL Abdominal Tissue documented in this encounter Active and Recently Administered Medications Times are shown in NEUROLOGY STROKE PHYSICIAN. Scheduled Medication Order 11/17/2023 11/18/2023 11/19/2023 albumin [...] Total Score: 3 10/20/19 24 7:30 AM NEUROLOGY STROKE PHYSICIAN documented as of this encounter
--- OUTSIDE RECORDS SUMMARY | 2024-01-09 19:49 | XMS_ITS | Encounter Summary ---
Author Name Unknown Organization [facility] Address [address] [place] [address] Care Team Providers Care Operations Label Clerk Name Role Phone Unavailable Primary Care Provider Unavailabl e Reason for Referral * Outpatient (Routine) - Closed Specialty Diagnoses / Procedures Referred By Dotty t Referred To Contact Nicotine Dependence Sudha Bernstein M.A., DonnS.Tom, M.S.W. [address] [place] [phone] [facility] Referral ID Status Reason Start Date Expiration Date Visits Re quested Visits Authorized [id number] Closed 11/11/2023 05/12/2025 1 1 Scheduling Instructions Please schedule a follow up phone visit at 11:00am, CUTTING MACHINE TENDER Encounter Details Date Type Department Care Team (Late st Contact Info) Description 11/11/2023 Orders Only Department of Nicotine Dependence, [facility] in [place], [place] [address] [place] [phone] Sudha Bernstein M.A., Edwin.S.W., M.S.W. [address] [place] [phone] Social History Tobacco Use Types Packs/Day Years Used Date Smoking Tobacco: Every Day Cigarettes 0.5 40 Smokeless Tobacco: Never Alcohol Use Standard Drinks/Week Comments Not Currently 0 (1 standard drink = 0.6 oz pur e alcohol) [facility] Utilities Answer Date Recorded In the past 12 months has th e [employer] [employer], gas, oil, or water company threatened to [...] Sex Assigned at Female 10/06/2023 10:50 AM RAG CUTTING MACHINE TENDER Gender Identity Female 10/06/2023 10:50 AM RAG CUTTING MACHINE TENDER Sexual Orientation Straight 10/06/2023 10 :50 AM RAG CUTTING MACHINE TENDER documented as of this encounter Plan of Treatment Upcoming Encounters Date Type Department Care Team (Late st Contact Info) Description 01/19/2024 10:00 AM CDT Telemedicine Department of Nutrition and Diabetes Education in [place], [place] [address] [place] [phone] Katja Umana M.D. [address] [place] [phone] Taty Cunningham M.S., RDN, LD [address] [place] [phone] 02/04/2024 2:15 PM CDT Appointment Division of Gastroenterology in [place], [place] [address] [place] [phone] Katja Umana M.D. [address] [place] [phone] Hayden Smith M.D. [address] [place] [phone] 03/21/2024 1:00 PM CDT Virtual Visit Department of Nicotine Dependence, [facility], in [place], [place] [address] [place] [phone] Scheduled Referrals Name Type Priority Associated Diagnoses Order Schedule Nicotine Dependence office visit (clinic) Outpatient Referral Routine Expected: 11/18/2023, Expires: 02/08/2025 documented as of this encounter Visit Diagnoses Not on filedocumented in this encounter Additional Health Concerns Assessment Noted Time PHQ-9 Depression Total Score: 3 10/20/19 24 7:30 AM RAG CUTTING MACHINE TENDER documented as of this encounter
--- OUTSIDE RECORDS SUMMARY | 2024-01-09 19:49 | XMS_ITS | Encounter Summary ---
Author Name Unknown Organization [facility] Address [address] [place] [address] Care Team Providers Care Neon Installer Name Role Phone Unavailable Primary Care Provider Unavailabl e Encounter Details Date Type Department Care Team (Latest Contact Info) Description 10/27/2023 10:26 AM RECEPTION INTERVIEWER - 10/27/2023 11:59 PM RECEPTION INTERVIEWER Hospital Encounter Department of Laboratory Medicine in [address] [phone] Romana Diane M.D., Ph.D. [address] [place] [phone] Alcohol Moderate Or Severe Use Disorder (Dependence) Uncomplicated (HCC) Discharge Disposition: Home or Self Care Social History Tobacco Use Types Packs/Day Years Used Date Smoking Tobacco: Every Day Cigarettes 0.5 40 Smokeless Tobacco: Never Alcohol Use Standard Drinks/Week Comments Not Currently 0 (1 standard drink = 0.6 oz pur e alcohol) [facility] Utilities Answer Date Recorded In the past 12 months has e [employer], gas, oil, or water [employer] threatened to shut off services in your [...] Date Recorded Employment status Working with temporary [employer] 10/15/2023 Housing Stability Answer Date Recorded What is your living situation today? I have a [facility] place to live 10/15/2023 Sex and Gender Information Value Date Recorded Sex Assigned at Female 10/06/2023 10:50 AM RECEPTION INTERVIEWER Gender Identity Female 10/06/2023 10:50 AM RECEPTION INTERVIEWER Sexual Orientation Straight 10/06/2023 10 :50 AM RECEPTION INTERVIEWER documented as of this encounter Medications at [...] Department of Nutrition and Diabetes Education in [place], [place] [address] [place] [phone] Katja Umana M.D. [address] [place] [phone] Taty Cunningham M.S., RDN, LD [address] [place] [phone] 02/04/2024 2:15 PM CDT Appointment Division of Gastroenterology in [place], [place] [address] [place] [phone] Katja Umana M.D. [address] [place] [phone] Hayden Smith M.D. [address] [place] [phone] 03/21/2024 1:00 PM CDT Virtual Visit Department of Nicotine Dependence, [facility] in [address] [phone] documented as of this encounter Procedures Procedure Name Priority Date/Time Associated Diagnosis Comments ETHYL GLUCURONIDE CONFIRMATION, U Routine 10/27/2023 10:38 AM RECEPTION INTERVIEWER Alcohol Moderate Or Severe Use Disorder (Dependence) Uncomplicated (HCC) CONFIRMED DRUG ABUSE PANEL, U Routine 10/27/2023 10:38 AM RECEPTION INTERVIEWER Alcohol Moderate Or Severe Use Disorder (Dependence) Uncomplicated (HCC) documented in this encounter Results * Drug Abuse Survey with Confirmation, Urine (10/27/2023 10:38 AM RECEPTION INTERVIEWER) Alcohol Negative Cutoff: 10 mg/dL 10/28/2023 9:08 AM RECEPTION INTERVIEWER [facility] Amphetamines Negative Cutoff: 500 ng/mL 10/28/2023 9:08 AM RECEPTION INTERVIEWER [facility] Barbiturates Negative Cutoff: 200 ng/mL 10/28/2023 9:08 AM [facility] Benzodiazepines Negative Cutoff: 100 ng/mL 10/28/2023 9:08 AM [facility] Cocaine Negative Cutoff: 150 ng/mL 10/28/2023 9:08 AM [facility] Comment: This cocaine immunoassay targets benzoylecgonine the primary metabolite of cocaine. Opiates Negative Cutoff: 300 ng/mL 10/28/2023 9:08 AM [facility] Phencyclidine Negative Cutoff: 25 ng/mL 10/28/2023 9:08 AM [facility] Tetrahydrocannabinol Negative Cutoff: 50 ng/mL 10/28/2023 9:08 AM [facility] Comment: This immunoassay targets delta-9 tetrahydrocannabinol carboxylic acid (THC-COOH), a metabolite of delta-9 tetrahydrocannabinol the main psychoactive ingredient of marijuana. ----ADDITIONAL INFORMATION---- This report is intended for use in clinical monitoring or management of patients. ??It is not intended for use in employment-related testing. Urine (Urine, Midstream) 10/27/2023 10:38 AM RECEPTION INTERVIEWER 10/27/2023 10:03 PM [facility] Romana Diane M.D., Ph.D. LAB URI NE ORDERABLES ED [facility] [place] [address] [place] [address] [facility] [address] [place] [address] [place] [address] * Ethyl Glucuronide Confirmation, Random, Urine (10/27/2023 10:38 AM [facility]) Ethyl Glucuronide Confirmation, U Negative Cutoff: 250 ng/mL 10/29/2023 8:19 AM [facility] Ethyl Sulfate Negative Cutoff: 100 ng/mL 10/29/2023 8:19 AM [facility] Ethyl Gluc/Sulfate Interpretation Negative. 10/29/2023 8:19 AM [facility] Comment: ----ADDITIONAL INFORMATION---- This report is intended for use in clinical monitoring and management of patients. ??It is not intended for use in employment-related testing. This test was developed and its performance characteristics determined by [facility] in a manner consistent with CLIA requirements. This test has not been cleared or approved by the U.S. Food and Drug Administration. Urine (Urine, Midstream) 10/27/2023 10:38 AM RECEPTION INTERVIEWER 10/27/2023 10:00 PM RECEPTION INTERVIEWER Romana Diane M.D., Ph.D. LAB URI NE ORDERABLES ED [facility] [address] [place] [address] [facility] [address] [place] [address] [place] [address] documented in this encounter Visit Diagnoses Diagnosis Alcohol Moderate Or Severe Use Disorder (Dependence) Uncomplicated (HCC) documented in this encounter Additional Health Concerns Assessment Noted Time PHQ-9 Depression Total Score: 3 10/20/19 24 7:30 AM RECEPTION INTERVIEWER documented as of this encounter
--- OUTSIDE RECORDS SUMMARY | 2024-01-09 19:50 | XMS_ITS | Encounter Summary ---
Author Name Unknown Organization [facility] Address [address] [place] [address] Care Team Providers Care Sheet Metal Layout Worker Name Role Phone Unavailable Primary Care Provider Unavailabl e Reason for Referral * Outpatient (Routine) - Closed Specialty Diagnoses / Procedures Referred By Dotty oakes Referred To Contact Diagnoses Ascites Procedures US Paracentesis with Imaging Guidance Katja Umana M.D. [address] [place] [phone] [facility] Referral ID Status Reason Start Date Expiration Date Visits Re quested Visits Authorized [id number] Closed 10/18/2023 10/17/2024 1 1 IDE MAINTENANCE WORKER Encounter Details Date Type Department Care Team (Latest Contact Info) Description 10/18/2023 Clinical Communication Division of Gastroenterology in [place], [place] [address] [place] [phone] Katja Umana M.D. [address] [place] [phone] Social History Tobacco Use Types Packs/Day Years Used Date Smoking Tobacco: Every Day Cigarettes 0.5 40 Smokeless Tobacco: Never Alcohol Use Standard Drinks/Week Comments Not Currently 0 (1 standard drink = 0.6 oz pur e alcohol) [facility] Utilities Answer Date Recorded In the [...] your living situation today? I have a [facility] place to live 10/15/2023 Sex and Gender Information Value Date Recorded Sex Assigned at Female 10/06/2023 10:50 AM OUTSIDE MAINTENANCE WORKER Gender Identity Female 10/06/2023 10:50 AM OUTSIDE MAINTENANCE WORKER Sexual Orientation Straight 10/06/2023 10 :50 AM OUTSIDE MAINTENANCE WORKER documented as of this encounter Plan of Treatment Upcoming Encounters Date Type Department Care Team (Late st Contact Info) Description 01/19/2024 10:00 AM CDT Telemedicine Department of Nutrition and Diabetes Education in [place], [place] [address] [place] [phone] Katja Umana M.D. [address] [place] [phone] Taty Cunningham M.S., RDN, LD [address] [place] [phone] 02/04/2024 2:15 PM CDT Appointment Division of Gastroenterology in [place], [place] [address] [place] [phone] Katja Umana M.D. [address] [place] [phone] Hayden Smith M.D. [address] [place] [phone] 03/21/2024 1:00 PM CDT Virtual Visit Department of Nicotine Dependence, [facility], in [place], [place] [address] [place] [phone] documented as of this encounter Results * US Paracentesis with Imaging Guidance (10/22/2023 10:18 AM OUTSIDE MAINTENANCE WORKER) Anatomical Region Laterality Modality Abdomen, Ultrasound RST LOS, Ultrasound ARZ LOS, Procedure FLA LOS, Abdominal FLA LOS, Procedural, Procedural NWWI LOS N/A Ultrasound Impressions 10/22/2023 10:26 AM OUTSIDE MAINTENANCE WORKER Ultrasound-guided diagnostic and therapeutic paracentesis. NR Narrative 10/22/2023 10:26 AM OUTSIDE MAINTENANCE WORKER EXAM: US PARACENTESIS WITH IMAGING GUIDANCE PRE-PROCEDURE: [...]
--- OUTSIDE RECORDS SUMMARY | 2024-01-09 19:50 | XMS_ITS | Encounter Summary ---
Author Name Unknown Organization [facility] Address [address] [place] [address] Care Team Providers Care Manager Fire Name Role Phone Unavailable Primary Care Provider Unavailabl e Reason for Visit * Reason Comments Nurse Visit Education Cirrhosis Encounter Details Date Type Department Care Team ([facility] st Contact Info) Description 10/06/2023 2:00 PM ACCOUNTING SPECIALIST Education Division of Gastroenterology in [place], [place] [address] [place] [phone] Ebony Back M.D. [address] [place] [phone] Leatha Reid R.N. [address] [place] [phone] Ascites; Alcoholic Cirrhosis Of Liver With Ascites [...] Assigned at Female 10/06/2023 10:50 AM ACCOUNTING SPECIALIST Gender Identity Female 10/06/2023 10:50 AM ACCOUNTING SPECIALIST Sexual Orientation Straight 10/06/2023 10 :50 AM ACCOUNTING SPECIALIST documented as of this encounter Progress Notes * Leatha Reid R.N. - 10/06/2023 2:00 PM CST Education provided on cirrhosis, portal hypertension, hepatic encephalopathy, ascites. See Education History Report within medical record for more details. Timo present. Prefers labs at [facility], if needed. UNTING SPECIALIST documented in this encounter Plan of Treatment Upcoming Encounters Date Type Department Care Team (Late st Contact Info) Description 01/19/2024 10:00 AM CDT Telemedicine Department of Nutrition and Diabetes Education in [place], [place] [address] [place] [phone] Katja Umana M.D. [address] [place] [phone] Taty Cunningham M.S., RDN, LD [address] [place] [phone] 02/04/2024 2:15 PM CDT Appointment Division of Gastroenterology in [address] [phone] Katja Umana M.D. [address] [place] [phone] Hayden Smith M.D. [address] [place] [phone] 03/21/2024 1:00 PM CDT Virtual Visit Department of Nicotine Dependence, [facility], in [place], [place] [address] [place] [phone] documented as of this encounter Visit Diagnoses Diagnosis Ascites Alcoholic Cirrhosis Of Liver With Ascites (HCC) documented in this encounter
--- OUTSIDE RECORDS SUMMARY | 2024-01-09 19:50 | XMS_ITS | Encounter Summary ---
Author Name Unknown Organization [facility] Address [address] [place] [address] Care Team Providers Care Environmental Health Technologist Name Role Phone Unavailable Primary Care Provider Unavailabl e Reason for Referral * Behavioral Health (Routine) - Closed Specialty Diagnoses / Procedures Referred By Contac t Referred To Contact Psychiatry / Psychiatry and Psychology Diagnoses Alcoholic Cirrhosis Of Liver With Ascites (HCC) Katja Umana M.D. [address] [place] [phone] [facility] Referral ID Status Reason Start Date Expiration Date Visits Re quested Visits Authorized [id number] Closed 10/15/2023 04/15/2025 1 1 RAL LOT ATTENDANT * Outpatient (Routine) - Authorized Specialty Diagnoses / Procedures Referred By Contac t Referred To Contact Diagnoses Alcoholic Cirrhosis Of Liver With Ascites (HCC) Esophageal Varices Without Bleeding (HCC) Procedures EGD (EsophagoGastroDuodenoscopy) Restricted Katja Umana M.D. 200 [place] [phone] [facility] Referral ID Status Reason Start Date Expiration Date V isits Requested Visits Authorized [id number] Authorized 10/15/2023 10/14/2024 1 1 RAL LOT ATTENDANT * Outpatient (Routine) - Closed Specialty Diagnoses / Procedures Referred By Contac t Referred To Contact Preventive Medicine Diagnoses Alcoholic Cirrhosis Of Liver With Ascites (HCC) Katja Umana M.D. [address] [place] [phone] [facility] Referral ID Status Reason Start Date Expiration Date Visits Re quested Visits Authorized [id number] Closed 10/15/2023 04/15/2025 1 1 RAL LOT ATTENDANT Reason for Visit * Outpatient (Routine) - Closed Specialty Diagnoses / Procedures Referred By Contact Referred To Contact Gastroenterology and Hepatology Katja Umana M.D. [address] [place] [phone] Katja Umana M.D. [address] [place] [phone] Referral ID Status Reason Start Date Expiration Date Visits Re quested Visits Authorized [id number] Closed 10/13/2023 04/13/2025 1 1 Encounter Details Date Type Department Care Team (Latest Contact Info) Description 10/15/2023 10:40 AM GENERAL LOT ATTENDANT Telemedicine Division of Gastroenterology in [place], [place] [address] [place] [phone] Katja Umana M.D. [address] [place] [phone] Ascites (Primary Dx); Alcoholic Cirrhosis Of Liver With Ascites (HCC); Esophageal Varices Without Bleeding (HCC) Social History Tobacco Use Types Packs/Day Years Used Date Smoking Tobacco: Every Day Cigarettes 0.5 40 Smokeless Tobacco: Never Alcohol Use Standard Drinks/Week Comments Not Currently 0 (1 standard drink = 0.6 oz pur e alcohol) [facility] Utilities Answer Date Recorded In the past 12 months has [employer], gas, oil, or water [employer] threatened to shut off services in your [...] Date Recorded Employment status Working with temporary [id number] 10/15/2023 Housing Stability Answer Date Recorded What is your living situation today? I have a [facility] place to live 10/15/2023 Sex and Gender Information Value Date Recorded Sex Assigned at Female 10/06/2023 10:50 AM GENERAL LOT ATTENDANT Gender Identity Female 10/06/2023 10:50 AM GENERAL LOT ATTENDANT Sexual Orientation Straight 10/06/2023 10 :50 AM GENERAL LOT ATTENDANT documented as of this encounter Progress Notes * Katja Umana M.D. - 10/15/2023 10:40 AM CST GASTROENTEROLOGY & HEPATOBILIARY CLINIC FOLLOW-UP NOTE Patient Name: Monique Redmond Date of Service: 10/15/2023 SUBJECTIVE This patient was virtually interviewed via real time video in the patient's home by Katja Umana M.D. at [facility]. The history and findings below are [...] I have sent an order [facility] the [facility]. She has met with our HB [...] last colonoscopy was performed in 2019 in [place]. I am not able to see this report. She is recommended to follow-up with her PCP for completing surveillance colonoscopy. If she is not able tocomplete this locally, then we can arrange for this to be done at [place]. [facility] Health maintenance She has evidence of [...] with local provider(s). Katja Umana M.D. 10/15/2023 RAL LOT ATTENDANT documented in this encounter Plan of Treatment Upcoming Encounters Date Type Department Care Team (Late st Contact Info) Description 01/19/2024 10:00 AM CDT Telemedicine Department of Nutrition and Diabetes Education in [place], [place] [address] [place] [phone] Kajta Umana M.D. [address] [place] [phone] Taty Cunningham M.S., RDN, LD [address] [place] [phone] 02/04/2024 2:15 PM CDT Appointment Division of Gastroenterology in [place], [place] [address] [place] [phone] Katja Umana M.D. [address] [place] [phone] Hayden Smith M.D. [address] [place] [phone] 03/21/2024 1:00 PM CDT Virtual Visit Department of Nicotine Dependence, [facility], in [place], [place] [address] [place] [phone] Scheduled Orders Name Type Priority Associated Diagnoses [...] (ABNORMAL) Basic Metabolic Panel (10/20/2023 1:08 PM GENERAL LOT ATTENDANT) Potassium, P 4.5 3.6 - 5.2 mmol/L 10/20/2023 1:30 PM GENERAL LOT ATTENDANT CNFL Sodium, P 126(L) 135 - 145 mmol/L 10/20/2023 1:30 PM GENERAL LOT ATTENDANT CNFL Chloride, P 97(L) 98 - 107 mmol/L 10/20/2023 1:30 PM GENERAL LOT ATTENDANT CNFL Bicarbonate, P 23 22 - 29 mmol/L 10/20/2023 1:30 PM GENERAL LOT ATTENDANT CNFL Anion Gap, P 6(L) 7 - 15 10/20/2023 1:30 PM GENERAL LOT ATTENDANT CNFL BUN (Blood Urea Nitrogen), P 7 6 - 21 mg/dL 10/20/2023 1:30 PM GENERAL LOT ATTENDANT CNFL Creatinine 0.37(L) 0.59 - 1.04 mg/dL 10/20/2023 1:30 PM GENERAL LOT ATTENDANT CNFL Estimated GFR (eGFR) >90 >=60 mL/min/BSA 10/20/2023 1:30 PM GENERAL LOT ATTENDANT CNFL Comment: Estimated GFR calculated using the 2020 CKD_EPI creatinine equation. Calcium, Total, P 8.2(L) 8.8 - 10.2 mg/dL 10/20/2023 1:30 PM GENERAL LOT ATTENDANT CNFL Glucose, P 112 70 - 140 mg/dL 10/20/2023 1:30 PM GENERAL LOT ATTENDANT CNFL Blood (Blood, Venous) 10/20/2023 1:08 PM GENERAL LOT ATTENDANT 10/20/2023 1:09 PM GENERAL LOT ATTENDANT Katja Umana M.D. LAB BLOOD ADD-ON [facility] [address] [place] [phone], [facility] CNFL [facility] in [address] [address] documented in this encounter Visit Diagnoses Diagnosis Ascites- Primary Alcoholic Cirrhosis Of Liver With Ascites (HCC) Esophageal Varices Without Bleeding (HCC) documented in this encounter
--- OUTSIDE RECORDS SUMMARY | 2024-01-09 19:50 | XMS_ITS | Encounter Summary ---
Author Name Unknown Organization [facility] Address [address] [place] [address] Care Team Providers Care Track Subway Repair Supervisor Name Role Phone Unavailable Primary Care Provider Unavailabl e Encounter Details Date Type Department Care Team (Late st Contact Info) Description 10/09/2023 Documentation Division of Gastroenterology in [place], [place] [address] [place] [phone] Joy Rudd M.B.B.S. [address] [place] [phone] Social History Tobacco Use Types Packs/Day Years [...] Sex Assigned at Female 10/06/2023 10:50 AM ACCOUNTS RECEIVABLE PROCESSOR Gender Identity Female 10/06/2023 10:50 AM ACCOUNTS RECEIVABLE PROCESSOR Sexual Orientation Straight 10/06/2023 10 :50 AM ACCOUNTS RECEIVABLE PROCESSOR documented as of this encounter Progress [...] signed by: Vielka CanelaSPetros 10/09/23 4:28 PM ACCOUNTS RECEIVABLE PROCESSOR UNTS RECEIVABLE PROCESSOR documented in this encounter Plan of Treatment Upcoming Encounters Date Type Department Care Team (Late st Contact Info) Description 01/19/2024 10:00 AM CDT Telemedicine Department of Nutrition and Diabetes Education in [place], [place] [address] [place] [phone] Katja Umana M.D. [address] [place] [phone] Taty Cunningham M.S., RDN, LD [address] [place] [phone] 02/04/2024 2:15 PM CDT Appointment Division of Gastroenterology in [place], [place] [address] [place] [phone] Katja Umana M.D. [address] [place] [phone] Hayden Smith M.D. [address] [place] [phone] 03/21/2024 1:00 PM CDT Virtual Visit Department of Nicotine Dependence, [facility], in [place], [place] [address] [place] [phone] documented as of this encounter Visit Diagnoses Not on filedocumented in this encounter
--- OUTSIDE RECORDS SUMMARY | 2024-01-09 19:50 | XMS_ITS | Encounter Summary ---
Author Name Unknown Organization [facility] Address [address] [place] [address] Care Team Providers Care Medical Laboratory Technologist Name Role Phone Unavailable Primary Care Provider Unavailabl e Encounter Details Date Type Department Care Team (Latest Contact Info) Description 10/20/2023 1:00 PM BRANCH OFFICE ADMINISTRATOR - 10/20/2023 11:59 PM BRANCH OFFICE ADMINISTRATOR Hospital Encounter Department of Laboratory Medicine in [address] [phone] Katja Umana M.D. [address] [place] [address] Ascites Discharge Disposition: Home or Self Care Social History Tobacco Use Types Packs/Day Years Used Date Smoking Tobacco: Every Day Cigarettes 0.5 40 Smokeless Tobacco: Never Alcohol Use Standard Drinks/Week Comments Not Currently 0 (1 standard drink = 0.6 oz pur e alcohol) [facility] Utilities Answer Date Recorded In the past 12 months has [employer], gas, oil, or water [employer] threatened to shut off services in your [...] Date Recorded Employment status Working with temporary [employer] 10/15/2023 Housing Stability Answer Date Recorded What is your living situation today? I have a [facility] place to live 10/15/2023 Sex and Gender Information Value Date Recorded Sex Assigned at Female 10/06/2023 10:50 AM BRANCH OFFICE ADMINISTRATOR Gender Identity Female 10/06/2023 10:50 AM BRANCH OFFICE ADMINISTRATOR Sexual Orientation Straight 10/06/2023 10 :50 AM BRANCH OFFICE ADMINISTRATOR documented as of this encounter Medications at [...] Department of Nutrition and Diabetes Education in [place], [place] [address] [place] [address] Katja Umana M.D. [address] [place] [phone] Taty Cunningham M.S., RDN, LD [address] [place] [phone] 02/04/2024 2:15 PM CDT Appointment Division of Gastroenterology in [place], [place] [address] [place] [phone] Katja Umana M.D. [address] [place] [phone] Hayden Smith M.D. [address] [place] [phone] 03/21/2024 1:00 PM CDT Virtual Visit Department of Nicotine Dependence, [facility], in [place], [place] [address] [place] [phone] documented as of this encounter Procedures Procedure Name Priority Date/Time Associated Diagnosis Comments BASIC METABOLIC PANEL, S/P Routine 10/20/2023 1:08 PM BRANCH OFFICE ADMINISTRATOR Ascites documented in this encounter Results * (ABNORMAL) Basic Metabolic Panel (10/20/2023 1:08 PM BRANCH OFFICE ADMINISTRATOR) Potassium, P 4.5 3.6 - 5.2 mmol/L 10/20/2023 1:30 PM BRANCH OFFICE ADMINISTRATOR CNFL Sodium, P 126(L) 135 - 145 mmol/L 10/20/2023 1:30 PM BRANCH OFFICE ADMINISTRATOR CNFL Chloride, P 97(L) 98 - 107 mmol/L 10/20/2023 1:30 PM BRANCH OFFICE ADMINISTRATOR CNFL Bicarbonate, P 23 22 - 29 mmol/L 10/20/2023 1:30 PM BRANCH OFFICE ADMINISTRATOR CNFL Anion Gap, P 6(L) 7 - 15 10/20/2023 1:30 PM BRANCH OFFICE ADMINISTRATOR CNFL BUN (Blood Urea Nitrogen), P 7 6 - 21 mg/dL 10/20/2023 1:30 PM BRANCH OFFICE ADMINISTRATOR CNFL Creatinine 0.37(L) 0.59 - 1.04 mg/dL 10/20/2023 1:30 PM BRANCH OFFICE ADMINISTRATOR CNFL Estimated GFR (eGFR) >90 >=60 mL/min/BSA 10/20/2023 1:30 PM BRANCH OFFICE ADMINISTRATOR CNFL Comment: Estimated GFR calculated using the 2020 CKD_EPI creatinine equation. Calcium, Total, P 8.2(L) 8.8 - 10.2 mg/dL 10/20/2023 1:30 PM BRANCH OFFICE ADMINISTRATOR CNFL Glucose, P 112 70 - 140 mg/dL 10/20/2023 1:30 PM BRANCH OFFICE ADMINISTRATOR CNFL Blood (Blood, Venous) 10/20/2023 1:08 PM BRANCH OFFICE ADMINISTRATOR 10/20/2023 1:09 PM BRANCH OFFICE ADMINISTRATOR Katja Umana M.D. LAB BLOOD ADD-ON [facility] [address] [place] [address], [facility] CNFL [facility] in [address] [address] documented in this encounter Visit Diagnoses Diagnosis Ascites documented in this encounter Additional Health Concerns Assessment Noted Time PHQ-9 Depression Total Score: 3 10/20/19 24 7:30 AM BRANCH OFFICE ADMINISTRATOR documented as of this encounter
--- OUTSIDE RECORDS SUMMARY | 2024-01-09 19:50 | XMS_ITS | Encounter Summary ---
Author Name Unknown Organization [facility] Address [address] [place] [address] Care Team Providers Care Structural Design Engineer Name Role Phone Unavailable Primary Care Provider Unavailabl e Reason for Referral * Specialty Diagnoses / Procedures Referred By Contlulu t Referred To Contact Ebony Back M.D. [address] [place] [phone] [facility] Referral ID Status Reason Start Date Expiration Date Visits Re quested Visits Authorized Scheduling Instructions Schedule after GIH consult CLAMP OPERATOR * Outpatient (Routine) - Closed Specialty Diagnoses / Procedures Referred By Contact Referred To Contact Gastroenterology and Hepatology Diagnoses Ascites Alcoholic Cirrhosis Of Liver With Ascites (HCC) Ebony Back M.D. 200 [place] [address] [facility] Referral ID Status Reason Start Date Expiration Date Visits Re quested Visits Authorized [id number] Closed 10/05/2023 04/05/2025 [address] Morales agreed to see CLAMP OPERATOR Encounter Details Date Type Department Care Team (Late st Contact Info) Description 10/05/2023 Orders Only Department of Oncology in [place], [place] [address] [place] [phone] Ebony Back M.D. [address] [place] [phone] Ascites (Primary Dx); Alcoholic Cirrhosis Of Liver [...] Sex Assigned at Female 10/06/2023 10:50 AM GLUE CLAMP OPERATOR Gender Identity Female 10/06/2023 10:50 AM GLUE CLAMP OPERATOR Sexual Orientation Straight 10/06/2023 10 :50 AM GLUE CLAMP OPERATOR documented as of this encounter Plan of Treatment Upcoming Encounters Date Type Department Care Team (Late st Contact Info) Description 01/19/2024 10:00 AM CDT Telemedicine Department of Nutrition and Diabetes Education in [place], [place] [address] [place] [phone] Katja Umana M.D. [address] [place] [phone] Taty Cunningham M.S., RDN, LD [address] [place] [phone] 02/04/2024 2:15 PM CDT Appointment Division of Gastroenterology in [place], [place] [address] [place] [phone] Katja Umana M.D. [address] [place] [phone] Hayden Smith M.D. [address] [place] [phone] 03/21/2024 1:00 PM CDT Virtual Visit Department of Nicotine Dependence, [facility], in [place], [place] [address] [place] [address] Scheduled Referrals Name Type Priority Associated Diagnoses [...]
--- OUTSIDE RECORDS SUMMARY | 2024-01-09 19:50 | XMS_ITS | Encounter Summary ---
Author Name Unknown Organization [facility] Address [address] [place] [address] Care Team Providers Care Machinist Tool And Die Name Role Phone Unavailable Primary Care Provider Unavailabl e Encounter Details Date Type Department Care Team (Latest Contact Info) Description 10/08/2023 3:20 PM GIS WEB DEVELOPER Ancillary Procedure Department of Gastroenterology Social History [...] Sex Assigned at Female 10/06/2023 10:50 AM GIS WEB DEVELOPER Gender Identity Female 10/06/2023 10:50 AM GIS WEB DEVELOPER Sexual Orientation Straight 10/06/2023 10 :50 AM GIS WEB DEVELOPER documented as of this encounter Plan of Treatment Upcoming Encounters Date Type Department Care Team (Late st Contact Info) Description 01/19/2024 10:00 AM CDT Telemedicine Department of Nutrition and Diabetes Education in [place], [place] [address] [place] [phone] Katja Umana M.D. [address] [place] [phone] Taty Cunningham M.S., RDN, LD [address] [place] [phone] 02/04/2024 2:15 PM CDT Appointment Division of Gastroenterology in [place], [place] [address] [place] [address] Katja Umana M.D. [address] [place] [phone] Hayden Smith M.D. [address] [place] [phone] 03/21/2024 1:00 PM CDT Virtual Visit Department of Nicotine Dependence, [facility], in [place], [place] [address] [place] [phone] documented as of this encounter Procedures Procedure Name Priority Date/Time Associated Diagnosis Comments GASTROENTEROLOGY IMAGE EXAM Routine 10/08/2023 3:20 PM GIS WEB DEVELOPER documented in this encounter Results * Duodenum, Entire examined duodenum Upper GI endoscopy-Gastroenterology Image Exam (10/08/2023 3:20 PM GIS WEB DEVELOPER) 10/08/2023 3:17 PM GIS WEB DEVELOPER Narrative IIMS - 10/08/2023 3:57 PM GIS WEB DEVELOPER This order has been created and auto-finalized to support the import of images acquired without order. The clinical documentation to support these images can be found on the encounter that produced images. Provider Not In System IMG NON RAD IMAGI NG PROCEDURES IIMS NA documented in this encounter Visit Diagnoses Not on filedocumented in this encounter
--- OUTSIDE RECORDS SUMMARY | 2024-01-09 19:50 | XMS_ITS | Encounter Summary ---
Author Name Unknown Organization [facility] Address [address] [place] [address] Care Team Providers Care Ticket Machine Operator Name Role Phone Unavailable Primary Care Provider Unavailabl e Reason for Referral * Outpatient (Routine) - Closed Specialty Diagnoses / Procedures Referred By Contac t Referred To Contact Diagnoses Alcoholic Cirrhosis Of Liver With Ascites (HCC) Procedures DX Chest AP or PA and Lateral 2 Views Katja Umana M.D. [address] [place] [phone] [facility] Referral ID Status Reason Start Date Expiration Date Visits Re quested Visits Authorized [id number] Closed 10/06/2023 10/05/2024 1 1 INSERTER Reason for Visit * Outpatient (Routine) - Closed Specialty Diagnoses / Procedures Referred By Dotty oakes Referred To Contact Diagnoses Alcoholic Cirrhosis Of Liver With Ascites (HCC) Procedures DX Chest AP or PA and Lateral 2 Views Katja Umana M.D. 200 [place] [phone] [facility] Referral ID Status Reason Start Date Expiration Date Visits Re quested Visits Authorized [id number] Closed 10/06/2023 10/05/2024 1 1 Encounter Details Date Type Department Care Team (Latest Contact Info) Description 10/06/2023 12:45 PM RATE INSERTER - 10/06/2023 11:59 PM RATE INSERTER Hospital Encounter Department of Radiology, [facility], in [place], [place] [address] [place] [phone] Katja Umana M.D. [address] [place] [phone] Alcoholic Cirrhosis Of Liver With Ascites (HCC) [...] Sex Assigned at Female 10/06/2023 10:50 AM RATE INSERTER Gender Identity Female 10/06/2023 10:50 AM RATE INSERTER Sexual Orientation Straight 10/06/2023 10 :50 AM RATE INSERTER documented as of this encounter Medications at [...] Department of Nutrition and Diabetes Education in [place], [place] [address] [place] [phone] Katja Umana M.D. [address] [place] [phone] Ttay Cunningham M.S., RDN, LD [address] [place] [phone] 02/04/2024 2:15 PM CDT Appointment Division of Gastroenterology in [place], [place] [address] [place] [phone] Katja Umana M.D. [address] [place] [phone] Hayden Smith M.D. [address] [place] [phone] 03/21/2024 1:00 PM CDT Virtual Visit Department of Nicotine Dependence, [facility], in [place], [place] [address] [place] [address] documented as of this encounter Procedures Procedure Name Priority Date/Time Associated Diagnosis Comments DX CHEST AP OR PA AND LATERAL 2 VIEWS RAD - Routine (most inpatients and all outpatients) 10/06/2023 1:32 PM RATE INSERTER Alcoholic Cirrhosis Of Liver With Ascites (HCC) documented in this encounter Results * DX Chest AP or PA and Lateral 2 Views (10/06/2023 1:32 PM RATE INSERTER) Anatomical Region Laterality Modality Chest, Thoracic RST LOS, Tho racic ARZ LOS, Thoracic FLA LOS N/A Digital Radiography Impressions 10/06/2023 1:35 PM RATE INSERTER Shallow inspiration. New focal predominantly linear opacity [...] bilateral apical scarring. Narrative 10/06/2023 1:35 PM RATE INSERTER EXAM: ??DX CHEST AP OR PA AND [...] Mild bilateral apical scarring. Katja Umana M.D. [facility] DIAGNOSTIC IMAGI NG PROCEDURES documented in this encounter Visit Diagnoses Diagnosis Alcoholic Cirrhosis Of Liver With Ascites (HCC) documented in this encounter
--- OUTSIDE RECORDS SUMMARY | 2024-01-09 19:50 | XMS_ITS | Encounter Summary ---
Author Name Unknown Organization [facility] Address [address] [place] [address] Care Team Providers Care Grounds Maintenance Manager Name Role Phone Unavailable Primary Care Provider Unavailabl e Reason for Referral * Outpatient (Routine) - Closed Specialty Diagnoses / Procedures Referred By Dotty t Referred To Contact Diagnoses Alcoholic Cirrhosis Of Liver With Ascites (HCC) Procedures US Paracentesis with Imaging Guidance Katja Umana M.D. 200 [place] [phone] [facility] Referral ID Status Reason Start Date Expiration Date Visits Re quested Visits Authorized [id number] Closed 10/06/2023 10/05/2024 1 1 NQUENCY COUNSELOR Reason for Visit * Outpatient (Routine) - Closed Specialty Diagnoses / Procedures Referred By Dotty oakes Referred To Contact Diagnoses Alcoholic Cirrhosis Of Liver With Ascites (HCC) Procedures US Paracentesis with Imaging Guidance Katja Umana M.D. 200 [place] [address] [facility] Referral ID Status Reason Start Date Expiration Date Visits Re quested Visits Authorized [id number] Closed 10/06/2023 10/05/2024 1 1 Encounter Details Date Type Department Care Team (Latest Contact Info) Description 10/08/2023 10:43 AM DELINQUENCY COUNSELOR - 10/08/2023 1:05 PM DELINQUENCY COUNSELOR Hospital Encounter Department of Radiology, [facility] in [place] [phone] [place] [address] Katja Umnaa M.D. [address] [place] [address] Alcoholic Cirrhosis Of Liver With Ascites (HCC) [...] Sex Assigned at Female 10/06/2023 10:50 AM DELINQUENCY COUNSELOR Gender Identity Female 10/06/2023 10:50 AM DELINQUENCY COUNSELOR Sexual Orientation Straight 10/06/2023 10 :50 AM DELINQUENCY COUNSELOR documented as of this encounter Last Filed Vital Signs Vital Sign Reading Time Taken Comments Blood Pressure 121/63 10/08/2023 12:30 PM DELINQUENCY COUNSELOR Pulse 104 10/08/2023 12:30 PM DELINQUENCY COUNSELOR Temperature 36.5 ??C (97.7 ??F) 10/08/2023 12:[address] Respiratory Rate - - Oxygen Saturation 98% 10/08/2023 12:30 PM DELINQUENCY COUNSELOR Inhaled Oxygen Concentration - - Weight - - Height - - Body Mass Index - - documented in this encounter Discharge Instructions * Attachments The following attachments cannot be sent through Care Everywhere. * Paracentesis (Kuwaiti) documented in this encounter Medications at Time [...] Department of Nutrition and Diabetes Education in [place], [place] [address] [place] [address] Katja Umana M.D. [address] [place] [phone] Taty Cunningham M.S., RDN, LD [address] [place] [phone] 02/04/2024 2:15 PM CDT Appointment Division of Gastroenterology in [place], [place] [address] [place] [phone] Katja Umana M.D. [address] [place] [phone] Hayden Smith M.D. [address] [place] [phone] 03/21/2024 1:00 PM CDT Virtual Visit Department of Nicotine Dependence, [facility] in [place], [place] [address] [place] [phone] documented as of this encounter Procedures Procedure Name Priority Date/Time Associated Diagnosis Comments US PARACENTESIS WITH IMAGING GUIDANCE RAD - Routine (most inpatients and all outpatients) 10/08/2023 12:57 PM DELINQUENCY COUNSELOR Alcoholic Cirrhosis Of Liver With Ascites (HCC) PROTEIN, TOTAL, BF Timed 10/08/2023 11 :14 AM DELINQUENCY COUNSELOR BACTERIAL CULTURE, AEROBIC + SUSC Timed 10/08/2023 11:14 AM DELINQUENCY COUNSELOR CELL COUNT AND DIFFERENTIAL, BF Timed 10/08/2023 11:14 AM DELINQUENCY COUNSELOR ALBUMIN, BODY FLUID Timed 10/08/2023 1 1:14 AM DELINQUENCY COUNSELOR documented in this encounter Results * US Paracentesis with Imaging Guidance (10/08/2023 12:57 PM DELINQUENCY COUNSELOR) Anatomical Region Laterality Modality Abdomen, Ultrasound RST LOS, Ultrasound ARZ LOS, Procedure FLA LOS, Abdominal FLA LOS, Procedural, Procedural NWWI LOS N/A Ultrasound Impressions 10/08/2023 1:24 PM DELINQUENCY COUNSELOR Ultrasound-guided paracentesis. EP Narrative 10/08/2023 1:24 PM DELINQUENCY COUNSELOR EXAM: US PARACENTESIS WITH IMAGING GUIDANCE PRE-PROCEDURE: [...] Protein, Total, Body Fluid (10/08/2023 11:14 AM DELINQUENCY COUNSELOR) Protein, Total, BF 0.9 See Comment g/dL 10/08/2023 12:53 PM DELINQUENCY COUNSELOR DTL Comment: ----ADDITIONAL INFORMATION---- A pleural fluid [...] clinical findings. All other fluids refer to [email or web address] [email or web address] for further interpretive information. This test has been modified from the edi manager's instructions. Its performance characteristics were determined by [facility] in a manner consistent with CLIA requirements. This test has not been cleared or approved by the U.S. Food and Drug Administration. Fluid Type, Protein, Total Fluid, Peritoneal Fluid 10/08/2023 11:54 AM DELINQUENCY COUNSELOR DTL Fluid (Peritoneal Fluid) 10/08/2023 11:14 AM DELINQUENCY COUNSELOR 10/08/2023 12:09 PM DELINQUENCY COUNSELOR Katja Umana M.D. LAB BODY FLUIDS AND STOOLS ORDERABLES [facility] [address] [place] [address], [facility] [address] [place] [address] * Albumin, Body Fluid (10/08/2023 11:14 AM DELINQUENCY COUNSELOR) Albumin BF 0.5 See Comment g/dL 10/08/2023 12:53 PM DELINQUENCY COUNSELOR DTL Comment: ----ADDITIONAL INFORMATION---- Peritoneal fluid albumin is used to calculate the serum-ascites albumin gradient (SAAG). Values greater than or equal to 1.1 g/dL suggest portal hypertension. Pleural fluid albumin may be used to calculate a serum-effusion albumin gradient. Values greater than 1.2 g/dL are most consistent with a transudative process. ?? All other fluids refer to [email or web address].Cuffed [email or web address] [email or web address] for further interpretive information. This test has been modified from the edi manager's instructions. Its performance characteristics were determined by [facility] in a manner consistent with CLIA requirements. This test has not been cleared or approved by the U.S. Food and Drug Administration. Fluid Type, Albumin Fluid, Peritoneal Fluid 10/08/2023 11:54 AM DELINQUENCY COUNSELOR DTL Fluid (Peritoneal Fluid) 10/08/2023 11:14 AM DELINQUENCY COUNSELOR 10/08/2023 12:09 PM DELINQUENCY COUNSELOR Katja Umana M.D. LAB BODY FLUIDS AND STOOLS ORDERABLES [facility] [address] [place] [address], [facility] 200 [place] [address] * Cell Count and Differential, Body Fluid (10/08/2023 11:14 AM DELINQUENCY COUNSELOR) Fluid Type Peritoneal /Paracente sis 10/08/2023 12:06 PM DELINQUENCY COUNSELOR DHPM Gross Appearance Serous 10/08/19 24 12:06 PM DELINQUENCY COUNSELOR DHPM Total Nucleated Cells 187 /mcL 10/08/2023 12:06 PM DELINQUENCY COUNSELOR DHPM Comment: ----REFERENCE VALUE---- Synovial: <150 /mcL Peritoneal: <500 /mcL Pleural: <500 /mcL Pericardial: <500 /mcL ----ADDITIONAL INFORMATION---- This test has been modified from the edi manager's instructions. Its performance characteristics were determined by [facility] in a manner consistent with CLIA requirements. This test has not been cleared or approved by the U.S. Food and Drug Administration. Neutrophils 1 % 10/08/2023 12:51 PM DELINQUENCY COUNSELOR DHPM Comment: ----REFERENCE VALUE---- Synovial: <25% Peritoneal: <25% Pleural: <25% Pericardial: <25% Lymphocytes 4 Synovial <75% % 10/08/2023 12:51 PM DELINQUENCY COUNSELOR DHPM Monocytes/Macropha ges 84 Synovial <70% % 10/08/2023 12:51 PM DELINQUENCY COUNSELOR DHPM Other Cells 11 % 10/08/2023 12:51 PM DELINQUENCY COUNSELOR DHPM Comment: ----REFERENCE VALUE---- The reference range and other method performance specifications have not been established for this bodyfluid. The test result must be integrated into the clinical context for interpretation. Other Cells Are: See Comment 10/08/2023 12:51 PM DELINQUENCY COUNSELOR DHPM Comment:Mesothelial cells Comment See Comment 10/08/2023 12:51 PM DELINQUENCY COUNSELOR DHPM Comment:No blasts or maligna nt cells seen. Reviewed by: Jose 10/08/2023 12:51 PM DELINQUENCY COUNSELOR DHPM Fluid (Peritoneal Fluid) 10/08/2023 11:14 AM DELINQUENCY COUNSELOR 10/08/2023 12:01 PM DELINQUENCY COUNSELOR Katja Umana M.D. LAB BODY FLUIDS AND STOOLS ORDERABLES Performing Organization Address City/[facility] [address]/ZIP Co de Phone Number [facility] [address] [place] [address], [facility] [address] [place] [address] * Bacterial Culture, Aerobic + Susceptibility (10/08/2023 11:14 AM DELINQUENCY COUNSELOR) Bacterial Culture, Aerobic + Susc No growth after 5 days of incubation. 10/13/2023 7:58 AM DELINQUENCY COUNSELOR DTL Fluid (Peritoneal Fluid) 10/08/2023 11:14 AM DELINQUENCY COUNSELOR 10/08/2023 2:23 PM DELINQUENCY COUNSELOR Comment:Specimen Source Site : Fluid Narrative [facility] - 10/13/2023 7:58 AM DELINQUENCY COUNSELOR Bacterial Culture: Received Bactec aerobic and Bactec anaerobic bottles Katja Umana M.D. LAB MICROBIOLOGY - G ENERAL ORDERABLES [facility] [address] [place] [address], [facility] DTL [facility] 200 [place] [address] documented in this encounter Visit Diagnoses Diagnosis [...] administer +++ New Bag 10/08/2023 12:23 PM DELINQUENCY COUNSELOR 25 g albumin human 25 % injection Continuous Infusion: Per Instructions PRN, Starting on Wed10/08/23 at 1137, Intra-Op New Bag 10/08/2023 11:37 AM DELINQUENCY COUNSELOR 25 g lidocaine 10 mg/mL (1 %) injection (XYLOCAINE) As needed, Starting on Wed10/08/23 at 1119, Intra-Op Given 10/08/2023 11:19 AM DELINQUENCY COUNSELOR 10 mL documented in this encounter Active and Recently Administered Medications Times are shown in DELINQUENCY COUNSELOR. Scheduled Medication Order 10/06/2023 10/07/2023 10/08/2023 albumin [...]
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
--- OUTSIDE RECORDS SUMMARY | 2024-01-09 19:50 | XMS_ITS | Encounter Summary ---
Author Name Unknown Organization [facility] Address [address] [place] [address] Care Team Providers Care Humanities Department Chair Name Role Phone Unavailable Primary Care Provider Unavailabl e Reason for Visit * Reason Onset Date Comments Follow-up 10/09/2023 Encounter Details Date Type Department Care Team (Late st Contact Info) Description 10/09/2023 Nurse Triage Department of Family Medicine, [address] [phone] Katharine Domínguez R.N. Follow-up Social [...] Sex Assigned at Female 10/06/2023 10:50 AM MARBLE CUTTER OPERATOR Gender Identity Female 10/06/2023 10:50 AM MARBLE CUTTER OPERATOR Sexual Orientation Straight 10/06/2023 10 :50 AM MARBLE CUTTER OPERATOR documented as of this encounter Miscellaneous Notes * Telephone Encounter - Katharine Domínguez R.N. - 10/09/2023 2:41 PM MARBLE CUTTER OPERATOR Chief Complaint / Reason for Call Patient [...] procedure yesterday. Patient was warm transferred to [place] with switchboard to be placed on contact with provider infection prevention specialist for GI. Present for: Procedure completed yesterday Home cares tried: Dressing Changes Calling to request: Review of symptoms/Advice The recommended disposition is Other. LE CUTTER OPERATOR documented in this encounter Plan of Treatment Upcoming Encounters Date Type Department Care Team (Late st Contact Info) Description 01/19/2024 10:00 AM CDT Telemedicine Department of Nutrition and Diabetes Education in [place], [place] [address] [place] [phone] Katja Umana M.D. [address] [place] [phone] Taty Cunningham M.S., RDN, LD [address] [place] [phone] 02/04/2024 2:15 PM CDT Appointment Division of Gastroenterology in [place], [place] [address] [place] [phone] Katja Umana M.D. [address] [place] [phone] Hayden Smith M.D. [address] [place] [phone] 03/21/2024 1:00 PM CDT Virtual Visit Department of Nicotine Dependence, [facility], in [place], [place] [address] [place] [phone] documented as of this encounter Visit Diagnoses Not on filedocumented in this encounter
--- OUTSIDE RECORDS SUMMARY | 2024-01-09 19:50 | XMS_ITS | Encounter Summary ---
Author Name Unknown Organization [facility] Address [address] [place] [address] Care Team Providers Care Calender Roll Press Operator Name Role Phone Unavailable Primary Care Provider Unavailabl e Reason for Referral * Outpatient (Routine) - Closed Specialty Diagnoses / Procedures Referred By Delgadoac t Referred To Contact Diagnoses Ascites Procedures US Paracentesis with Imaging Guidance Felipe Morales M.D. 200 [place] [address] [facility] Referral ID Status Reason Start Date Expiration Date Visits Re quested Visits Authorized [id number] Closed 10/11/2023 10/10/2024 1 1 UCT DEVELOPMENT CONSULTANT * Outpatient (Routine) - Closed Specialty Diagnoses / Procedures Referred By Dotty oakes Referred To Contact Diagnoses Ascites Procedures US Paracentesis with Imaging Guidance Felipe Morales M.D. 200 [place] [address] [facility] Referral ID Status Reason Start Date Expiration Date Visits Re quested Visits Authorized [id number] Closed 10/11/2023 10/10/2024 1 1 UCT DEVELOPMENT CONSULTANT Reason for Visit * Reason Onset Date Comments Hepatobiliary 10/08/2023 Ascites elijah Encounter Details Date Type Department Care Team (Latest Contact Info) Description 10/08/2023 Clinical Communication Division of Gastroenterology in [place], [place] [address] [place] [phone] Felipe Morales M.D. 200 [place] [address] Hepatobiliary (Ascites elijah) Social History Tobacco Use Types Packs/Day Years Used Date Smoking Tobacco: Every Day Cigarettes 0.5 40 Smokeless Tobacco: Never Alcohol Use Standard Drinks/Week Comments Not Currently 0 (1 standard drink = 0.6 oz pur e alcohol) [facility] Utilities Answer Date Recorded In the past 12 months has e PRX, gas, oil, or water [employer] threatened to shut off services in your [...] Date Recorded Employment status Working with temporary [employer] 10/15/2023 Housing Stability Answer Date Recorded What is your living situation today? I have a [facility] place to live 10/15/2023 Sex and Gender Information Value Date Recorded Sex Assigned at Female 10/06/2023 10:50 AM PRODUCT DEVELOPMENT CONSULTANT Gender Identity Female 10/06/2023 10:50 AM PRODUCT DEVELOPMENT CONSULTANT Sexual Orientation Straight 10/06/2023 10 :50 AM PRODUCT DEVELOPMENT CONSULTANT documented as of this encounter Plan of Treatment Upcoming Encounters Date Type Department Care Team (Late st Contact Info) Description 01/19/2024 10:00 AM CDT Telemedicine Department of Nutrition and Diabetes Education in [place], [place] [address] [place] [phone] Katja Umana M.D. [address] [place] [phone] Taty Cunningham M.S., RDN, LD [address] [place] [phone] 02/04/2024 2:15 PM CDT Appointment Division of Gastroenterology in [place], [place] [address] [place] [phone] Katja Umana M.D. [address] [place] [phone] Hayden Smith M.D. [address] [place] [phone] 03/21/2024 1:00 PM CDT Virtual Visit Department of Nicotine Dependence, [facility], in [place], [place] [address] [place] [phone] documented as of this encounter Results * US Paracentesis with Imaging Guidance (11/19/2023 11:55 AM PRODUCT DEVELOPMENT CONSULTANT) Anatomical Region Laterality Modality Abdomen, Ultrasound RST LOS, Ultrasound ARZ LOS, Procedure FLA LOS, Abdominal FLA LOS, Procedural, Procedural NWWI LOS N/A Ultrasound Impressions 11/19/2023 12:26 PM PRODUCT DEVELOPMENT CONSULTANT Ultrasound-guided paracentesis. EP Narrative 11/19/2023 12:26 PM PRODUCT DEVELOPMENT CONSULTANT EXAM: US PARACENTESIS WITH IMAGING GUIDANCE PRE-PROCEDURE: [...] IMPRESSION: Ultrasound-guided paracentesis. EP Felipe Morales M.D. IMSally US PROCEDURES * US Paracentesis with Imaging Guidance (11/05/2023 11:25 AM PRODUCT DEVELOPMENT CONSULTANT) Anatomical Region Laterality Modality Abdomen, Ultrasound RST LOS, Ultrasound ARZ LOS, Procedure FLA LOS, Abdominal FLA LOS, Procedural, Procedural NWWI LOS N/A Ultrasound Impressions 11/05/2023 11:28 AM PRODUCT DEVELOPMENT CONSULTANT Ultrasound-guided diagnostic and therapeutic paracentesis. NR Narrative 11/05/2023 11:28 AM PRODUCT DEVELOPMENT CONSULTANT EXAM: US PARACENTESIS WITH IMAGING GUIDANCE PRE-PROCEDURE: [...] lower quadrant peritoneal space. Needle size: 5 Congolese centesis catheter. Volume aspirated: 6.8 liters aspirated, [...] lower quadrant peritoneal space. Needle size: 5 Congolese centesis catheter. Volume aspirated: 6.8 liters aspirated, [...] NR Felipe Morales M.D. IMSally US PROCEDURES documented in this encounter Visit Diagnoses Diagnosis Ascites- Primary Ascites Ascites documented in this encounter
--- OUTSIDE RECORDS SUMMARY | 2024-01-09 19:50 | XMS_ITS | Encounter Summary ---
Author Name Unknown Organization [facility] Address [address] [place] [address] Care Team Providers Care Product Safety Technical Assistant Name Role Phone Unavailable Primary Care Provider Unavailabl e Encounter Details Date Type Department Care Team (Late Contact Info) Description 09/01/2023 Clinical Communication Division of Colon and Rectal Surgery in [place], [place] [address] [place] [phone] Prescheduling, Provider Social History Tobacco Use Types Packs/Day Years Used Date Smoking Tobacco: Every Day Nutrition Answer Date Recorded Nutrition: EVOO Fat Source Unknown 11/10 Nutrition: Servings of Fruits/Vegetables per Day Not on file 2020 Dental Answer Date Recorded Dental: Regular Dentist Unknown 11/10/19 21 Sex and Gender Information Value Date Recorded Sex Assigned at Female 10/06/2023 10:50 AM ORGANIZATIONAL DEVELOPMENT MANAGER Gender Identity Female 10/06/2023 10:50 AM ORGANIZATIONAL DEVELOPMENT MANAGER Sexual Orientation Straight 10/06/2023 10 :50 AM ORGANIZATIONAL DEVELOPMENT MANAGER documented as of this encounter Plan of Treatment Upcoming Encounters Date Type Department Care Team (Late st Contact Info) Description 01/19/2024 10:00 AM CDT Telemedicine Department of Nutrition and Diabetes Education in [place], [place] [address] [place] [phone] Katja Umana M.D. [address] [place] [phone] Taty Cunningham M.S., RDN, LD [address] [place] [phone] 02/04/2024 2:15 PM CDT Appointment Division of Gastroenterology in [place], [place] [address] [place] [phone] Katja Umana M.D. [address] [place] [phone] Hayden Smith M.D. [address] [place] [phone] 03/21/2024 1:00 PM CDT Virtual Visit Department of Nicotine Dependence, [facility], in [place], [place] [address] [place] [phone] documented as of this encounter Visit Diagnoses Not on filedocumented in this encounter
--- OUTSIDE RECORDS SUMMARY | 2024-01-09 19:50 | XMS_ITS | Encounter Summary ---
Author Name Unknown Organization [facility] Address [address] [place] [address] Care Team Providers Care Toggle Press Operator Name Role Phone Unavailable Primary Care Provider Unavailabl e Reason for Referral * Outpatient (Routine) - Closed Specialty Diagnoses / Procedures Referred By Dotty oakes Referred To Contact Diagnoses Alcoholic Cirrhosis Of Liver With Ascites (HCC) Procedures EGD (EsophagoGastroDuodenoscopy) Restricted Katja Umana M.D. 200 [place] [address] [facility] Referral ID Status Reason Start Date Expiration Date Visits Re quested Visits Authorized [id number] Closed 10/06/2023 10/05/2024 1 1 ENGINEER Reason for Visit * Outpatient (Routine) - Closed Specialty Diagnoses / Procedures Referred By Dotty oakes Referred To Contact Diagnoses Alcoholic Cirrhosis Of Liver With Ascites (HCC) Procedures EGD (EsophagoGastroDuodenoscopy) Restricted Katja Umana M.D. 200 [place] [phone] [facility] Referral ID Status Reason Start Date Expiration Date Visits Re quested Visits Authorized [id number] Closed 10/06/2023 10/05/2024 1 1 Encounter Details Date Type Department Care Team (Latest Contact Info) Description 10/08/2023 1:09 PM JAVA ENGINEER - 10/08/2023 4:27 PM JAVA ENGINEER Hospital Encounter Division of Gastroenterology in [place], [place] [address] [place] [phone] Katja Umana M.D. [address] [place] [phone] Alcoholic Cirrhosis Of Liver With Ascites (HCC) [...] Sex Assigned at Female 10/06/2023 10:50 AM JAVA ENGINEER Gender Identity Female 10/06/2023 10:50 AM JAVA ENGINEER Sexual Orientation Straight 10/06/2023 10 :50 AM JAVA ENGINEER documented as of this encounter Last Filed Vital Signs Vital Sign Reading Time Taken Comments Blood Pressure 120/74 10/08/2023 4:11 PM JAVA ENGINEER Pulse 112 10/08/2023 4:16 PM JAVA ENGINEER Temperature 37.1 ??C (98.8 ??F) 10/08/2023 3:49 PM CS T Respiratory Rate 24 10/08/2023 4:16 PM JAVA ENGINEER Oxygen Saturation 93% 10/08/2023 4:16 PM JAVA ENGINEER Inhaled Oxygen Concentration - - Weight 57.2 kg (126 lb) 10/08/2023 2:23 PM JAVA ENGINEER Height 169.1 cm (5' 6.58) 10/08/2023 2:23 PM CS T Body Mass Index 19.99 10/08/2023 2:23 PM JAVA ENGINEER documented in this encounter Discharge Instructions * Discharge Instructions* Refugio Martinez R.N. - 10/08/2023 4:02 PM JAVA ENGINEER Full Liquid Diet for today (10/08) With [...] nuts, hard fruit pieces, soft breadsticks, pancake, Kyrgyz toast, potatoes, white rice. Soft, cooked vegetables, white or sweet potatoes without skin, Kyrgyz fries, hash browns, vegetablejuices. Cooked or canned fruit. Gelatin, ice cream without nuts, pudding, cake, tender pies, cookies, bars without nuts, seeds and coconut, fruit ice. Sugar, honey, jelly, candy without nuts or coconut. Supplements without fiber. Mild seasonings and mild condiments. ENGINEER documented in this encounter Medications at Time [...] Department of Nutrition and Diabetes Education in [place], [place] [address] [place] [phone] Katja Umana M.D. [address] [place] [phone] Taty Cunningham M.S., RDN, LD [address] [place] [phone] 02/04/2024 2:15 PM CDT Appointment Division of Gastroenterology in [place], [place] [address] [place] [phone] Katja Umana M.D. [address] [place] [phone] Hayden Smith M.D. [address] [place] [phone] 03/21/2024 1:00 PM CDT Virtual Visit Department of Nicotine Dependence, [facility], in [place], [place] [address] [place] [phone] documented as of this encounter Procedures Procedure Name Priority Date/Time Associated Diagnosis Comments EGD (ESOPHAGOGASTRODUODE NOSCOPY) RESTRICTED Routine 10/08/2023 3:17 PM JAVA ENGINEER Alcoholic Cirrhosis Of Liver With Ascites (HCC) UPPER GI ENDOSCOPY Routine 10/08/2023 3: 17 PM JAVA ENGINEER Alcoholic Cirrhosis Of Liver With Ascites (HCC) documented in this encounter Results * Upper GI Endoscopy (10/08/2023 3:17 PM JAVA ENGINEER) 10/08/2023 3:17 PM JAVA ENGINEER Impressions [facility] - 10/08/2023 3:53 PM JAVA ENGINEER Post-op Diagnoses: ? 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 ? - Mild portal hypertensive gastropathy. ? - Normal examined duodenum. ? - No specimens collected. Narrative [facility] - 10/08/2023 3:53 PM JAVA ENGINEER Scot 6 GI GI Patient Name: Monique [...] GI PROCEDURE ORDERAB LES Performing Organization Address City/State/[facility] Co al Phone Number [facility] documented in this encounter Visit Diagnoses Diagnosis Alcoholic Cirrhosis Of Liver With Ascites (HCC) documented in this encounter Administered Medications documented in this encounter Active and Recently Administered Medications Times are shown in JAVA ENGINEER. Continuous Medication Order 10/06/2023 10/07/2023 10/08/2023 Lactated [...]
--- OUTSIDE RECORDS SUMMARY | 2024-01-09 19:50 | XMS_ITS | Encounter Summary ---
Author Name Unknown Organization [facility] Address [address] [place] [address] Care Team Providers Care Franchise Broker Name Role Phone Unavailable Primary Care Provider Unavailabl e Reason for Referral * Outpatient (Routine) - Closed Specialty Diagnoses / Procedures Referred By Contac t Referred To Contact Diagnoses Alcoholic Cirrhosis Of Liver With Ascites (HCC) Procedures Echo Transthoracic (TTE) Katja Umana M.D. [address] [place] [phone] [facility] Referral ID Status Reason Start Date Expiration Date Visits Re quested Visits Authorized [id number] Closed 10/06/2023 10/05/2024 1 1 MEL SELECTOR Reason for Visit * Outpatient (Routine) - Closed Specialty Diagnoses / Procedures Referred By Dotty oakse Referred To Contact Diagnoses Alcoholic Cirrhosis Of Liver With Ascites (HCC) Procedures Echo Transthoracic (TTE) Katja Umana M.D. 200 [place] [phone] [facility] Referral ID Status Reason Start Date Expiration Date Visits Re quested Visits Authorized [id number] Closed 10/06/2023 10/05/2024 1 1 Encounter Details Date Type Department Care Team (Latest Contact Info) Description 10/07/2023 9:50 AM STUMMEL SELECTOR - 10/07/2023 11:59 PM STUMMEL SELECTOR Hospital Encounter Department of Cardiovascular Diseases in [place], [place] [address] [place] [phone] Katja Umana M.D. [address] [place] [phone] Alcoholic Cirrhosis Of Liver With Ascites (HCC) [...] Sex Assigned at Female 10/06/2023 10:50 AM STUMMEL SELECTOR Gender Identity Female 10/06/2023 10:50 AM STUMMEL SELECTOR Sexual Orientation Straight 10/06/2023 10 :50 AM STUMMEL SELECTOR documented as of this encounter Medications at [...] Department of Nutrition and Diabetes Education in [place], [place] [address] [place] [phone] Katja Umana M.D. [address] [place] [phone] Taty Cunningham M.S., RDN, LD [address] [place] [phone] 02/04/2024 2:15 PM CDT Appointment Division of Gastroenterology in [place], [place] [address] [place] [phone] Katja Umana M.D. [address] [place] [phone] Hayden Smith M.D. [address] [place] [phone] 03/21/2024 1:00 PM CDT Virtual Visit Department of Nicotine Dependence, [facility], in [place], [place] [address] [place] [phone] documented as of this encounter Procedures Procedure Name Priority Date/Time Associated Diagnosis Comments (TTE) 2D ECHO DOPPLER COLOR AND CONTRAST Routine 10/07/2023 11:01 AM STUMMEL SELECTOR Alcoholic Cirrhosis Of Liver With Ascites (HCC) documented in this encounter Results * (TTE) 2D ECHO DOPPLER COLOR AND CONTRAST (10/07/2023 11:01 AM STUMMEL SELECTOR) Ejection Fraction 68 MC CV EIMS Proximal [...] Region Laterality Modality Echocardiography 10/07/2023 9:54 AM STUMMEL SELECTOR Impressions 10/07/2023 11:02 AM STUMMEL SELECTOR Agitated saline contrast administered. Moderate intrapulmonary shunt. [...] the Order-Level Documents. Narrative 10/07/2023 11:02 AM STUMMEL SELECTOR For the complete report, see the Order-Level [...] Diagnostic, See Dennys. Given 10/07/2023 10:53 AM STUMMEL SELECTOR 30 mL sodium chloride 0.9 % injection 10 mL 10 mL, intravenous, As needed, line care, Starting on Dasia 10/07/23 at 1037, Prior to and following infusion and between multiple consecutive infusions: sodium chloride 0.9 % injection Given 10/07/2023 10:53 AM STUMMEL SELECTOR 10 mL documented in this encounter
--- OUTSIDE RECORDS SUMMARY | 2024-01-09 19:50 | XMS_ITS | Encounter Summary ---
Author Name Unknown Organization [facility] Address [address] [place] [address] Care Team Providers Care Kitchen Stewardess Name Role Phone Unavailable Primary Care Provider Unavailabl e Encounter Details Date Type Department Care Team (Latest Contact Info) Description 10/08/2023 3:19 PM HR ANALYST Anesthesia Event Division of Gastroenterology in [place], [place] [address] [place] [phone] Jeffy Moy APRN, JAGUAR [address] [place] [phone] Joshua Beverly M.D. [address] [place] [phone] Anesthesia Record Procedure Summary Procedure Name Responsible [...] Sex Assigned at Female 10/06/2023 10:50 AM HR ANALYST Gender Identity Female 10/06/2023 10:50 AM HR ANALYST Sexual Orientation Straight 10/06/2023 10 :50 AM HR ANALYST documented as of this encounter OR Notes * Anesthesia Postprocedure Evaluation - Jeffy Moy APRN, JAGUAR - 10/08/2023 3:50 PM CST Patient: Monique Redmond Procedure Summary Date: 10/08/23 Room / Location: Division of Gastroenterology in [place], [place] Anesthesia Start: 151 Anesthesia Stop: 1550 [...] Post Op nausea/vomiting: none Hydration status: euvolemic ANALYST * Anesthesia Preprocedure Evaluation - Jeffy Moy APRN, CRNA - 10/08/2023 3:34 PM CST Preprocedure Anesthesia & H&P Assessment Procedure Summary Anesthesia Start Date/Time: 10/08/231518 Scheduled providers: Gaviota Kamara APRN, CRNA Procedure: EGD (ESOPHAGOGASTRODUODENOSCOPY) RESTRICTED Diagnosis: Alcoholic Cirrhosis Of Liver With Ascites (HCC) [K70.31] Alcoholic Cirrhosis Of Liver With Ascites (HCC) [K70.31] Location: Division of Gastroenterology in [place], [place] Pertinent components of the patient's history [...] with patient /legal guardian or through an textiles printer. Risks/Benefits/Alternatives of Blood transfusion discussed with patient / legal guardian, includingan opportunity to ask questions and/or decline some or all transfusion therapies. The patient / legal guardian consented to the use of all blood products, as deemed medically necessary Approval to Proceed: approved for anesthesia ANALYST documented in this encounter Plan of Treatment Upcoming Encounters Date Type Department Care Team (Late st Contact Info) Description 01/19/2024 10:00 AM CDT Telemedicine Department of Nutrition and Diabetes Education in [place], [place] [address] [place] [phone] Katja Umana M.D. [address] [place] [phone] Taty Cunningham M.SPetros, RDN, LD [address] [place] [phone] 02/04/2024 2:15 PM CDT Appointment Division of Gastroenterology in [place], [place] [address] [place] [phone] Katja Umana M.D. [address] [place] [phone] Hayden Smith M.D. [address] [place] [phone] 03/21/2024 1:00 PM CDT Virtual Visit Department of Nicotine Dependence, [facility], in [place], [place] [address] [place] [phone] documented as of this encounter Visit Diagnoses Not on filedocumented in this encounter Administered Medications Inactive Administered Medications - up to 3 most recent administrations Medication Order MAR Action Action Date Dose Rate Site fentaNYL injection (SUBLIMAZE) intravenous, As needed, Starting on Wed10/08/23 at 1530, Anesthesia Intra-op Given 10/08/2023 3:30 PM HR ANALYST 25 mcg Lactated Ringer's intravenous, Continuous Infusion: Per Instructions PRN, Starting on Wed10/08/23 at 1523, Anesthesia Intra-op New Bag 10/08/2023 3:23 PM HR ANALYST lidocaine (PF) (cardiac) injection intravenous, As needed, Starting on Wed10/08/23 at 1523, Anesthesia Intra-op Given 10/08/2023 3:23 PM HR ANALYST 60 mg ondansetron (PF) injection (ZOFRAN) intravenous, As needed, Starting on Wed10/08/23 at 1523, Anesthesia Intra-op Given 10/08/2023 3:23 PM HR ANALYST 4 mg propofol 10 mg/mL infusion (DIPRIVAN) intravenous, Continuous Infusion: Per Instructions PRN, Starting on Wed10/08/23 at 1523, Anesthesia Intra-op New Bag 10/08/2023 3:23 PM HR ANALYST 150 mcg/kg/min 51.48 mL/hr propofoL injection (DIPRIVAN) intravenous, As needed, Starting on Wed10/08/23 at 1524, Anesthesia Intra-op Given 10/08/2023 3:26 PM HR ANALYST 20 mg Given 10/08/2023 3:24 PM HR ANALYST 20 mg documented in this encounter
[2024-01-09 20:25] LABS: Chloride* 96 mmol/L (96-114); Glucose* 90 mg/dL (60-115); Sodium* 129 mmol/L (135-149)
[2024-01-09 20:26] LABS: Anion Gap 5 mEq/L (7-15); Carbon Dioxide* 28 mmol/L (20-32); Creatinine* 0.5 mg/dL (0.5-1.5); Est. Creatinine Clearance* 49.48; Estimated Glomerular Filt Rate 105 ml/min
[2024-01-09 20:36] LABS: Alanine Aminotransferase* 33 U/L (4-35); Albumin* 3.4 g/dL (3.3-5.0); Alkaline Phosphatase* 165 U/L (40-150); Aspartate Amino Transferase* 83 U/L (12-35); Bilirubin Total* 2.7 mg/dL (0.1-1.5); Blood Urea Nitrogen* 16 mg/dL (7-30); Calcium* 8.3 mg/dL (8.4-10.6); Total Protein* 8.1 g/dL (6.0-8.3); Troponin I* < 0.01 ng/mL (0.01-0.04)
[2024-01-09 20:44] VITALS: BP 118/74; PULSE 82; RESP 20; TEMP 36.6; O2SAT 100
[2024-01-09 21:05] VITALS: BP 118/74; PULSE 82; RESP 20; TEMP 36.6
== END 2024-01-09 21:06 | disposition home or self-care (01) ==
PROVIDERS: Emergency Provider Student in an Organized Health Care Education/Training Program; PCP Family Medicine
DX: D64.9 Anemia, unspecified (principal); E87.1 Hypo-osmolality and hyponatremia
CPT/HCPCS: 36415; 80053; 84484; 85025; 94761; 99283

== ENCOUNTER 2024-01-11 10:23 | Outpatient (CLI) | payer BC, SELFPAY ==
--- OUTSIDE RECORDS SUMMARY | 2024-01-11 10:27 | XMS_ITS ---
Author Name Unknown Organization [facility] Address [address] [place] [address] Care Team Providers Care Sales Enablement Analyst Name Role Phone Unavailable Unavailable Unavailable Surgery Details Not on file Complications Check Surgery Details section. Procedure Estimated Blood Loss Check Surgery Details section. Procedure Findings Check Surgery Details section. Procedure Specimens Taken Check Surgery Details section.
--- OUTSIDE RECORDS SUMMARY | 2024-01-11 10:27 | XMS_ITS | Referral Summary ---
Author Name Unknown Organization [facility] Address [address] [place] [address] Care Team Providers Care Sand Screener Name Role Phone Elsewhere, Pcp Primary Care Provider Unavailabl e Source Comments Patient records contain information from all sites at [facility]. For routine questions regarding patient records, call [phone] during business hours, M-F 8:00 AM - 5:00 PM Central Time. Record requests for emergency care only can be directed to [phone] at any time.[facility] Encounters Date Type Department Care Team Description 12/29/2023 Clinical Communication [facility] in [place], [place] [address] [place] [address] Katja Umana M.D. Phone Contact (Friends and family authorization ) 12/28/2023 Clinical Communication Division of Gastroenterology in [place], [place] [address] [place] [address] Katja Umana M.D. 12/21/2023 Clinical Communication [facility] in [place], [place] [address] [place] [address] Katja Umana M.D. 12/20/2023 Orders Only Department of Nicotine Dependence, [facility], in [place], [place] [address] [place] [address] Sudha Bernstein M.A., L.I.C.S.W., M.S.W. 12/20/2023 Clinical Communication Division of Gastroenterology in [place], [place] [address] [place] [phone] Katja Umana M.D. Scheduling 12/20/2023 2:00 PM CDT Virtual Visit Department of Nicotine Dependence, [facility] in [address] [address] Sudha Bernstein M.A., L.I.C.S.W., M.S.W. Nicotine Dependence Cigarettes With Withdrawal (Primary Dx) 12/16/2023 9:34 AM CDT - 12/16/2023 11:22 AM CDT Hospital Encounter Department of Radiology, [facility] in [place], [place] [address] [place] [phone] Katja Umana M.D. Alcoholic Cirrhosis Of Liver With Ascites (HCC); Ascites Discharge Disposition: Home or Self Care 12/09/2023 4:30 PM CDT Office Visit [facility] for Transplantation and Clinical Regeneration in [address] [address] Katja Umana M.D. Olson, Jody C, M.D. Alcoholic Cirrhosis Of Liver With Ascites (HCC) (Primary Dx); Ascites; Sarcopenia 12/08/2023 10:30 AM CDT Comprehensive Visit Section of Infectious Diseases in [address] [address] Katja Umana M.D. Mackey, Callie A, ESTEBAN, C.N.P., D.N.P. 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 Order Request 11/19/2023 10:08 AM EVP SALES - 11/19/2023 12:51 PM EVP SALES Hospital Encounter Department of Radiology, [facility], in [place], [place] [address] [place] [address] Felipe Morales M.D. Ascites Discharge Disposition: Home or Self Care 11/18/2023 Orders Only Department of Nicotine Dependence, [place], [place] [address] [place] [address] Sudha Bernstein M.A., Yesy.I.C.S.W., M.S.W. 11/18/2023 11:00 AM EVP SALES Virtual Visit Department of Nicotine Dependence, [place], [place] [address] [place] [address] Sudha Bernstein M.A., Yesy.I.C.S.W., M.S.W. Nicotine Dependence Cigarettes With Withdrawal (Primary Dx) 11/11/2023 Orders Only Department of Nicotine Dependence, [place], [place] [address] [place] [address] Sudha Bernstein M.A., Yesy.I.C.S.W., M.S.W. 11/11/2023 Clinical Communication Department of Nicotine Dependence, [place], [place] [address] [place] [address] Sudha Bernsteni M.A., Yesy.I.C.S.W., M.S.W. NDC Med Request 11/11/2023 11:00 AM EVP SALES Virtual Visit Department of Nicotine Dependence, [place], [place] [address] [place] [address] Sudha Bernstein M.A., Yesy.I.C.S.W., M.S.W. Nicotine Dependence Cigarettes With Withdrawal (Primary Dx) 11/05/2023 9:29 AM EVP SALES - 11/05/2023 12:20 PM EVP SALES Hospital Encounter Department of Radiology, [facility], in [place], [place] [address] [place] [address] Felipe Morales M.D. Ascites Discharge Disposition: Home or Self Care 11/01/2023 12:28 PM EVP SALES - 11/01/2023 11:59 PM EVP SALES Hospital Encounter Department of Laboratory Medicine in [address] [address] Katja Umana M.D. Alcoholic Cirrhosis Of Liver With Ascites (HCC) Discharge Disposition: Home or Self Care 10/28/2023 Orders Only [facility] Transplantation and Clinical Regeneration in [place], [place] [address] [phone] Katja Umana M.D. Alcoholic Cirrhosis Of Liver With Ascites (HCC) (Primary Dx) 10/28/2023 Orders Only Department of Nicotine Dependence, [place], [place] [address] [place] [phone] Sudha Bernstein M.A., Yesy.I.C.S.W., M.S.W. 10/28/2023 Clinical Communication Department of Nicotine Dependence, [place], [place] [address] [place] [phone] Sudha Bernstein M.A., L.I.C.S.W., M.S.W. NDC Med Request 10/28/2023 11:00 AM EVP SALES Virtual Visit Department of Nicotine Dependence, [facility] in [place], [place] [address] [place] [phone] Romana Diane M.D., Ph.D. Sudha Bernstein M.A., L.I.C.S.W., M.S.W. Nicotine Dependence Cigarettes 10/27/2023 10:26 AM EVP SALES - 10/27/2023 11:59 PM EVP SALES Hospital Encounter Department of Laboratory Medicine in [address] [address] Katja Umana M.D. Alcoholic Cirrhosis Of Liver With Ascites (HCC); Alcohol Moderate Or Severe Use Disorder (Dependence) Uncomplicated (HCC) Discharge Disposition: Home or Self Care 10/27/2023 10:26 AM EVP SALES - 10/27/2023 11:59 PM EVP SALES Hospital Encounter Department of Laboratory Medicine in [address] [address] Romana Diane M.D., Ph.D. Alcohol Moderate Or Severe Use Disorder (Dependence) Uncomplicated (HCC) Discharge Disposition: Home or Self Care 10/24/2023 Clinical Communication Division of Gastroenterology in [address] [address] Katja Umana M.D. 10/22/2023 7:27 AM EVP SALES - 10/22/2023 3:44 PM EVP SALES Hospital Encounter Department of Radiology, [address] [address] Katja Umana M.D. Ascites Discharge Disposition: Home or Self Care 10/20/2023 1:00 PM EVP SALES - 10/20/2023 11:59 PM EVP SALES Hospital Encounter Department of Laboratory Medicine in [address] [address] Katja Umana M.D. Ascites Discharge Disposition: Home or Self Care 10/18/2023 Clinical Communication Division of Gastroenterology in [address] [address] Katja Umana M.D. 10/15/2023 10:40 AM EVP SALES Telemedicine Division of Gastroenterology in [address] [address] Katja Umana M.D. 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 I have a [facility] place to live 10/15/2023 Sex and Gender Information Value Date Recorded Sex Assigned at Female 10/06/2023 10:50 AM EVP SALES Gender Identity Female 10/06/2023 10:50 AM EVP SALES Sexual Orientation Straight 10/06/2023 10 :50 AM EVP SALES Last Filed Vital Signs Vital Sign Reading Time Taken Comments Blood Pressure 101/47 12/16/2023 10:52 AM CDT Pulse 77 12/16/2023 10:30 AM CDT Temperature 34.7 ??C (94.5 ??F) 12/09/2023 4:21 PM CD T Respiratory Rate 24 10/08/2023 4:16 PM EVP SALES Oxygen Saturation 100% 12/16/2023 10:30 AM CDT [...] and Diabetes Education in [place], [place] [address] [place] [phone] Katja Umana M.D. [address] [place] [phone] Taty Cunningham M.S., RDN, LD [address] [place] [phone] 02/04/2024 2:15 PM CDT Appointment Division of Gastroenterology in [place], [place] [address] [place] [phone] Katja Umana M.D. [address] [place] [phone] Hayden Smith M.D. [address] [place] [phone] 03/21/2024 1:00 PM CDT Virtual Visit Department of Nicotine Dependence, [facility], in [place], [place] [address] [place] [phone] Procedures Procedure Name Priority Date/Time Associated Diagnosis [...] inpatients and all outpatients) 11/19/2023 11:55 AM EVP SALES Ascites CELL COUNT AND DIFFERENTIAL, BF Timed 11/19/2023 10:50 AM EVP SALES Ascites BACTERIAL CULTURE, AEROBIC + SUSC Timed 11/19/2023 10:50 AM EVP SALES Ascites US PARACENTESIS WITH IMAGING GUIDANCE RAD - Routine (most inpatients and all outpatients) 11/05/2023 11:25 AM EVP SALES Ascites CELL COUNT AND DIFFERENTIAL, BF Timed 11/05/2023 10:07 AM EVP SALES Ascites BACTERIAL CULTURE, AEROBIC + SUSC Timed 11/05/2023 10:07 AM EVP SALES Ascites BASIC METABOLIC PANEL, S/P Routine 11/01/2023 12:49 PM EVP SALES Alcoholic Cirrhosis Of Liver With Ascites (HCC) CONFIRMED DRUG ABUSE PANEL, U Routine 10/27/2023 10:38 AM EVP SALES Alcohol Moderate Or Severe Use Disorder (Dependence) Uncomplicated (HCC) ETHYL GLUCURONIDE CONFIRMATION, U Routine 10/27/2023 10:38 AM EVP SALES Alcohol Moderate Or Severe Use Disorder (Dependence) Uncomplicated (HCC) PHOSPHATIDYLETHANOL CONFIRMATION, B Routine 10/27/2023 10:33 AM EVP SALES Alcohol Moderate Or Severe Use Disorder (Dependence) Uncomplicated (HCC) BASIC METABOLIC PANEL, S/P Routine 10/27/2023 10:33 AM EVP SALES Alcoholic Cirrhosis Of Liver With Ascites (HCC) US PARACENTESIS WITH IMAGING GUIDANCE RAD - Routine (most inpatients and all outpatients) 10/22/2023 10:18 AM EVP SALES Ascites CELL COUNT AND DIFFERENTIAL, BF Timed 10/22/2023 8:54 AM EVP SALES Ascites BACTERIAL CULTURE, AEROBIC + SUSC Timed 10/22/2023 8:54 AM EVP SALES Ascites BASIC METABOLIC PANEL, S/P Routine 10/20/2023 1:08 PM EVP SALES Ascites HCV AB SCRN W/REFLEX TO HCV PCR, S Routine 10/06/2023 12:17 PM EVP SALES Alcoholic Cirrhosis Of Liver With Ascites (HCC) COLONOSCOPY Routine 10/10/2015 2:45 PM EVP SALES from Last 3 Months or Most Recently [...] IMPRESSION: Ultrasound-guided paracentesis. EP Katja Umana M.D. [facility] US PROCEDURES * (ABNORMAL) Prothrombin Time (PT) [...] CDT Katja Umana M.D. LAB BLOOD ADD-ON [facility] [address] [place] [address], [facility] DTL [facility] [address] [place] [address] * (ABNORMAL) CBC with Differential, Blood (12/09/2023 5:16 PM CDT) Pathologist [facility] Hemoglobin 8.3(L) 11.6 - 15.0 g/dL 12/09/2023 [...] Katja Umana M.D. LAB BLOOD ADD-ON [facility] [address] [place] [address], [place] DTL [facility] [address] [place] [address] [facility] [address] [place] [address] * (ABNORMAL) Comprehensive Metabolic Panel (12/09/2023 5:16 PM CDT) Pathologist [facility] Potassium, S 5.0 3.6 - 5.2 mmol/L [...] M.D. LAB BLOOD ADD-ON Performing Organization Address City/[facility] [[email or web address]] Co de Phone Number [facility] [address] [place], [place] [phone] [place] [address] 200 [place] [address] * Bacterial Culture, Aerobic + Susceptibility (11/19/2023 10:50 AM EVP SALES) Only the most recent of3 resultswithin the time period is included. Bacterial Culture, Aerobic + Susc No growth after 5 days of incubation. 11/24/2023 8:27 AM CDT DTL Fluid (Peritoneal Fluid) 11/19/2023 10:50 AM EVP SALES [address] [facility] - 11/24/2023 8:27 AM CDT Bacterial Culture: Received Bactec aerobic and Bactec anaerobic bottles Felipe Morales M.D. LAB MICROBIOLOGY - GENERAL ORDERABLES Performing Organization Address City/[facility]/ZIP Co de Phone Number [facility] [address] [place] [address], [facility] [address] [place] [address] * Cell Count and Differential, Body Fluid (11/19/2023 10:50 AM EVP SALES) Only the most recent of3 resultswithin the time period is included. Fluid Type Peritoneal /Paracente sis 11/19/2023 12:39 PM EVP SALES DHPM Gross Appearance Serous 11/19/19 24 12:39 PM EVP SALES DHPM Total Nucleated Cells 201 /mcL 11/19/2023 12:39 PM EVP SALES [facility] Comment: ----REFERENCE VALUE---- Synovial: <150 /mcL Peritoneal: <500 /mcL Pleural: <500 /mcL Pericardial: <500 /mcL ----ADDITIONAL INFORMATION---- This test has been modified from the flowers salesperson's instructions. Its performance characteristics were determined by [facility] in a manner consistent with CLIA requirements. This test has not been cleared or approved by the U.S. Food and Drug Administration. Neutrophils 20 % 11/19/2023 1:42 PM EVP SALES DHPM Comment: ----REFERENCE VALUE---- Synovial: <25% Peritoneal: <25% Pleural: <25% Pericardial: <25% Lymphocytes 16 Synovial <75% % 11/19/2023 1:42 PM EVP SALES DHPM Monocytes/Macropha ges 60 Synovial <70% % 11/19/2023 1:42 PM EVP SALES DHPM Other Cells 4 % 11/19/2023 1:42 PM EVP SALES DHPM Comment: ----REFERENCE VALUE---- The reference range and other method performance specifications have not been established for this bodyfluid. The test result must be integrated into the clinical context for interpretation. Other Cells Are: See Comment 11/19/2023 1:42 PM EVP SALES DHPM Comment:Mesothelial cells Comment See Comment 11/19/2023 1:42 PM EVP SALES DHPM Comment:No blasts or maligna nt cells seen. Reviewed by: Tech 11/19/2023 1:42 PM EVP SALES DHPM Fluid (Peritoneal Fluid) 11/19/2023 10:50 AM EVP SALES Felipe Morales M.D. LAB BODY FLUIDS AND STOOLS ORDERABLES [facility] [address] [place] [address], [facility] [address] [place] [address] * (ABNORMAL) Basic Metabolic Panel (11/01/2023 12:49 PM EVP SALES) Only the most recent of3 resultswithin the time period is included. Potassium, P 4.1 3.6 - 5.2 mmol/L 11/01/2023 1:13 PM EVP SALES CNFL Sodium, P 128(L) 135 - 145 mmol/L 11/01/2023 1:13 PM EVP SALES CNFL Chloride, P 95(L) 98 - 107 mmol/L 11/01/2023 1:13 PM EVP SALES CNFL Bicarbonate, P 26 22 - 29 mmol/L 11/01/2023 1:13 PM EVP SALES CNFL Anion Gap, P 7 7 - 15 11/01/2023 1:13 PM EVP SALES CNFL BUN (Blood Urea Nitrogen), P 10 6 - 21 mg/dL 11/01/2023 1:13 PM EVP SALES CNFL Creatinine 0.42(L) 0.59 - 1.04 mg/dL 11/01/2023 1:13 PM EVP SALES CNFL Estimated GFR (eGFR) >90 >=60 mL/min/BSA 11/01/2023 1:13 PM EVP SALES CNFL Comment: Estimated GFR calculated using the 2020 CKD_EPI creatinine equation. Calcium, Total, P 8.3(L) 8.8 - 10.2 mg/dL 11/01/2023 1:13 PM EVP SALES CNFL Glucose, P 105 70 - 140 mg/dL 11/01/2023 1:13 PM EVP SALES CNFL Blood (Blood, Venous) 11/01/2023 12:49 PM EVP SALES 11/01/2023 12:54 PM EVP SALES Katja Umana M.D. LAB BLOOD ADD-ON [facility] [address] [place] [address], [place] CNFL [facility] in [address] [address] * Ethyl Glucuronide Confirmation, Random, Urine (10/27/2023 10:38 AM EVP SALES) Ethyl Glucuronide Confirmation, U Negative Cutoff: 250 ng/mL 10/29/2023 8:19 AM EVP SALES [facility] Ethyl Sulfate Negative Cutoff: 100 ng/mL 10/29/2023 8:19 AM EVP SALES [facility] Ethyl Gluc/Sulfate Interpretation Negative. 10/29/2023 8:19 AM [facility] Comment: ----ADDITIONAL INFORMATION---- This report is intended for use in clinical monitoring and management of patients. ??It is not intended for use in employment-related testing. This test was developed and its performance characteristics determined by [facility] in a manner consistent with CLIA requirements. This test has not been cleared or approved by the U.S. Food and Drug Administration. Urine (Urine, Midstream) 10/27/2023 10:38 AM EVP SALES 10/27/2023 10:00 PM EVP SALES Romana Diane M.D., Ph.D. LAB URI NE ORDERABLES [facility] [address] [place] [address] [place] [phone] [place] [facility] [place] [address] * Drug Abuse Survey with Confirmation, Urine (10/27/2023 10:38 AM [facility]) Alcohol Negative Cutoff: 10 mg/dL 10/28/2023 9:08 AM [facility] Amphetamines Negative Cutoff: 500 ng/mL 10/28/2023 9:08 AM [facility] Barbiturates Negative Cutoff: 200 ng/mL 10/28/2023 9:08 AM [facility] Benzodiazepines Negative Cutoff: 100 ng/mL 10/28/2023 9:08 AM [facility] Cocaine Negative Cutoff: 150 ng/mL 10/28/2023 9:08 AM [facility] Comment: This cocaine immunoassay targets benzoylecgonine the primary metabolite of cocaine. Opiates Negative Cutoff: 300 ng/mL 10/28/2023 9:08 AM [facility] Phencyclidine Negative Cutoff: 25 ng/mL 10/28/2023 9:08 AM [facility] Tetrahydrocannabinol Negative Cutoff: 50 ng/mL 10/28/2023 9:08 AM [facility] Comment: This immunoassay targets delta-9 tetrahydrocannabinol carboxylic acid (THC-COOH), a metabolite of delta-9 tetrahydrocannabinol the main psychoactive ingredient of marijuana. ----ADDITIONAL INFORMATION---- This report is intended for use in clinical monitoring or management of patients. ??It is not intended for use in employment-related testing. Urine (Urine, Midstream) 10/27/2023 10:38 AM EVP SALES 10/27/2023 10:03 PM EVP SALES Romana Diane M.D., Ph.D. LAB URI NE ORDERABLES [facility] [place] [address] [place] [address] [facility] [address] [place] [address] [place] [address] * Phosphatidylethanol Confirmation (10/27/2023 10:33 AM EVP SALES) PEth 16:0/18:1 (POPEth) by LC-MS/MS <20 Cutoff: 10 ng/mL 10/29/2023 8:22 PM EVP SALES [facility] Comment: Testing performed at a x2 [...] <10 Cutoff: 10 ng/mL 10/29/2023 8:22 PM EVP SALES SDS Comment: PEth 16:0/18:2 (PLPEth) Reference ranges are not well established PEth Interpretation Negative. 10/29 8:22 PM EVP SALES [facility] Comment: ----ADDITIONAL INFORMATION---- This report is intended for use in clinical monitoring and management of patients. ??It is not intended for use in employment-related testing. This test was developed and its performance characteristics determined by [facility] in a manner consistent with CLIA requirements. This test has not been cleared or approved by the U.S. Food and Drug Administration. Blood (Blood, Venous) 10/27/2023 10:33 AM EVP SALES 10/27/2023 9:57 PM EVP SALES Romana Diane M.D., Ph.D. LAB BLO OD ADD-ON [facility] [address] [place] [address] [facility] [address] [place] [address] [place] [address] * HCV Ab Scrn w/Reflex to HCV PCR, Serum (10/06/2023 12:17 PM EVP SALES) HCV Ab Screen, S Negative Negative 10/06/2023 9:12 PM EVP SALES [facility] Comment:Lpozag-at-quzyqt rat io is <1.00. Blood (Blood, Venous) 10/06/2023 12:17 PM EVP SALES 10/06/2023 3:57 PM EVP SALES Katja Umana M.D. LAB MICROBIOLOGY - B LOOD ORDERABLES Performing Organization Address [facility] [[email or web address] Co de Phone Number [facility] [address] [place] [address] [facility] [address] [place] [address] * Colonoscopy (10/10/2015 2:45 PM EVP SALES) 10/10/2015 2:45 PM EVP SALES Tanner Calderón GI PROCEDURE ORDE [facility] [address] [place] [address], [facility] from Last 3 Months or Most Recently Relevant to Health Maintenance Care Teams Sand Screener Relationship Specialty Start Date End Date Elsewhere, Pcp PCP - General Family Medicine 12/07/23
--- OUTSIDE RECORDS SUMMARY | 2024-01-11 10:27 | XMS_ITS | Clinical Summary ---
Author Name Unknown Organization [facility] Address [address] [place] [address] Care Team Providers Care Missile Tracking Technician Name Role Phone Elsewhere, Pcp Primary Care Provider Unavailabl e Source Comments Patient records contain information from all sites at [facility]. For routine questions regarding patient records, call [phone] during business hours, M-F 8:00 AM - 5:00 PM Central Time. Record requests for emergency care only can be directed to [phone] at any time.[facility] Allergies No known active allergies [...] Department Care Team Description 12/29/2023 Clinical Communication [facility] Clinical Regeneration in [place], [place] [address] [place] [address] Katja Umana M.D. Phone Contact (Friends and family authorization ) 12/28/2023 Clinical Communication Division of Gastroenterology in [place], [place] [address] [place] [address] Katja Umana M.D. 12/21/2023 Clinical Communication [facility] Clinical Regeneration in [place], [place] [address] [place] [address] Katja Umana M.D. 12/20/2023 2:00 PM CDT Virtual Visit Department of Nicotine Dependence, [facility] in [place], [place] [address] [place] [address] Sudha Bernstein M.A., L.I.C.S.W., M.S.W. Nicotine Dependence Cigarettes With Withdrawal (Primary Dx) 12/20/2023 Orders Only Department of Nicotine Dependence, [facility] in [place], [place] [address] [place] [address] Sudha Bernstein M.A., L.I.C.S.W., M.S.W. 12/20/2023 Clinical Communication Division of Gastroenterology in [place], [place] [address] [place] [address] Katja Umana M.D. Scheduling 12/16/2023 9:34 AM CDT - 12/16/2023 11:22 AM CDT Hospital Encounter Department of Radiology, [facility], in [address] [address] Katja Umana M.D. Alcoholic Cirrhosis Of Liver With Ascites (HCC); Ascites Discharge Disposition: Home or Self Care 12/09/2023 4:30 PM CDT Office Visit [facility] Transplantation and Clinical Regeneration in [address] [address] Katja Umana M.D. Olson, Jody C, M.D. Alcoholic Cirrhosis Of Liver With Ascites (HCC) (Primary Dx); Ascites; Sarcopenia 12/08/2023 10:30 AM CDT Comprehensive Visit Section of Infectious Diseases in [address] [address] Katja Umana M.D. Mackey, Callie A, ESTEBAN, C.N.P., D.N.P. 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 Order Request 11/19/2023 10:08 AM BIOLOGICAL AIDE - 11/19/2023 12:51 PM BIOLOGICAL AIDE Hospital Encounter Department of Radiology, [facility], in [address] [address] Felipe Morales M.D. Ascites Discharge Disposition: Home or Self Care 11/18/2023 11:00 AM BIOLOGICAL AIDE Virtual Visit Department of Nicotine Dependence, [facility] in [address] [address] Sudha Bernstein M.A., L.I.C.S.W., M.S.W. Nicotine Dependence Cigarettes With Withdrawal (Primary Dx) 11/18/2023 Orders Only Department of Nicotine Dependence, [place], [place] [address] [place] [address] Sudha Bernstein M.A., DonnS.Tom, M.S.W. 11/11/2023 11:00 AM BIOLOGICAL AIDE Virtual Visit Department of Nicotine Dependence, [place], [place] [address] [place] [address] Sudha Bernstein M.A., DonnS.Dameon., M.S.W. Nicotine Dependence Cigarettes With Withdrawal (Primary Dx) 11/11/2023 Orders Only Department of Nicotine Dependence, [place], [place] [address] [place] [address] Sudha Bernstein M.A., DonnS.Tom, M.S.W. 11/11/2023 Clinical Communication Department of Nicotine Dependence, [place], [place] [address] [place] [address] Sudha Bernstein M.A., Yesy.Olga.S.W., M.S.W. [facility] Med Request 11/05/2023 9:29 AM BIOLOGICAL AIDE - 11/05/2023 12:20 PM BIOLOGICAL AIDE Hospital Encounter Department of Radiology, [place], [place] [address] [place] [phone] Felipe Morales M.D. Ascites Discharge Disposition: Home or Self Care 11/01/2023 12:28 PM BIOLOGICAL AIDE - 11/01/2023 11:59 PM BIOLOGICAL AIDE Hospital Encounter Department of Laboratory Medicine in [address] [address] Katja Umana M.D. Alcoholic Cirrhosis Of Liver With Ascites (HCC) Discharge Disposition: Home or Self Care 10/28/2023 11:00 AM BIOLOGICAL AIDE Virtual Visit Department of Nicotine Dependence, [place], [place] [address] [place] [address] Romana Diane M.D., Ph.D. Sudha Bernstein M.A., Yesy.IPetrosCPetrosS.W., M.S.W. Nicotine Dependence Cigarettes 10/28/2023 Orders Only [facility] Transplantation and Clinical [facility] in [place], [place] [address] [place] [phone] Katja Umana M.D. Alcoholic Cirrhosis Of Liver With Ascites (HCC) (Primary Dx) 10/28/2023 Orders Only Department of Nicotine Dependence, [facility] in [place], [place] [address] [place] [phone] Sudha Bernstein M.A., Yesy.KarrieC.S.W., M.S.W. 10/28/2023 Clinical Communication Department of Nicotine Dependence, [place], [place] [address] [place] [phone] Sudha Bernstein M.A., Yesy.I.C.S.W., M.S.W. [facility] Med Request 10/27/2023 10:26 AM BIOLOGICAL AIDE - 10/27/2023 11:59 PM BIOLOGICAL AIDE Hospital Encounter Department of Laboratory Medicine in [address] [address] Katja Umana M.D. Alcoholic Cirrhosis Of Liver With Ascites (HCC); Alcohol Moderate Or Severe Use Disorder (Dependence) Uncomplicated (HCC) Discharge Disposition: Home or Self Care 10/27/2023 10:26 AM BIOLOGICAL AIDE - 10/27/2023 11:59 PM BIOLOGICAL AIDE Hospital Encounter Department of Laboratory Medicine in [address] [address] Romana Diane M.D., Ph.D. Alcohol Moderate Or Severe Use Disorder (Dependence) Uncomplicated (HCC) Discharge Disposition: Home or Self Care 10/24/2023 Clinical Communication Division of Gastroenterology in [address] [address] Katja Umana M.D. 10/22/2023 7:27 AM BIOLOGICAL AIDE - 10/22/2023 3:44 PM BIOLOGICAL AIDE Hospital Encounter Department of Radiology, [facility], in [place], [place] [address] [place] [address] Katja Umana M.D. Ascites Discharge Disposition: Home or Self Care 10/20/2023 1:00 PM BIOLOGICAL AIDE - 10/20/2023 11:59 PM BIOLOGICAL AIDE Hospital Encounter Department of Laboratory Medicine in [address] [address] Katja Umana M.D. Ascites Discharge Disposition: Home or Self Care 10/18/2023 Clinical Communication Division of Gastroenterology in [place], [place] [address] [place] [phone] Katja Umana M.D. 10/15/2023 10:40 AM BIOLOGICAL AIDE Telemedicine Division of Gastroenterology in [place], [place] [address] [place] [address] Katja Umana M.D. 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 I have a [facility] place to live 10/15/2023 Sex and Gender Information Value Date Recorded Sex Assigned at Female 10/06/2023 10:50 AM BIOLOGICAL AIDE Gender Identity Female 10/06/2023 10:50 AM BIOLOGICAL AIDE Sexual Orientation Straight 10/06/2023 10 :50 AM BIOLOGICAL AIDE Last Filed Vital Signs Vital Sign Reading Time Taken Comments Blood Pressure 101/47 12/16/2023 10:52 AM CDT Pulse 77 12/16/2023 10:30 AM CDT Temperature 34.7 ??C (94.5 ??F) 12/09/2023 4:21 PM CD T Respiratory Rate 24 10/08/2023 4:16 PM BIOLOGICAL AIDE Oxygen Saturation 100% 12/16/2023 10:30 AM CDT [...] Department of Nutrition and Diabetes Education in [place], [place] [address] [place] [phone] Katja Umana M.D. [address] [place] [phone] Taty Cunningham M.S., RDN, LD [address] [place] [phone] 02/04/2024 2:15 PM CDT Appointment Division of Gastroenterology in [place], [place] [address] [place] [phone] Katja Umana M.D. [address] [place] [phone] Hayden Smith M.D. [address] [place] [phone] 03/21/2024 1:00 PM CDT Virtual Visit Department of Nicotine Dependence, [facility], in [place], [place] [address] [place] [phone] Health Maintenance Due Date Last Done Comments [...] inpatients and all outpatients) 11/19/2023 11:55 AM BIOLOGICAL AIDE Ascites CELL COUNT AND DIFFERENTIAL, BF Timed 11/19/2023 10:50 AM BIOLOGICAL AIDE Ascites BACTERIAL CULTURE, AEROBIC + SUSC Timed 11/19/2023 10:50 AM BIOLOGICAL AIDE Ascites US PARACENTESIS WITH IMAGING GUIDANCE RAD - Routine (most inpatients and all outpatients) 11/05/2023 11:25 AM BIOLOGICAL AIDE Ascites CELL COUNT AND DIFFERENTIAL, BF Timed 11/05/2023 10:07 AM BIOLOGICAL AIDE Ascites BACTERIAL CULTURE, AEROBIC + SUSC Timed 11/05/2023 10:07 AM BIOLOGICAL AIDE Ascites BASIC METABOLIC PANEL, S/P Routine 11/01/2023 12:49 PM BIOLOGICAL AIDE Alcoholic Cirrhosis Of Liver With Ascites (HCC) CONFIRMED DRUG ABUSE PANEL, U Routine 10/27/2023 10:38 AM BIOLOGICAL AIDE Alcohol Moderate Or Severe Use Disorder (Dependence) Uncomplicated (HCC) ETHYL GLUCURONIDE CONFIRMATION, U Routine 10/27/2023 10:38 AM BIOLOGICAL AIDE Alcohol Moderate Or Severe Use Disorder (Dependence) Uncomplicated (HCC) PHOSPHATIDYLETHANOL CONFIRMATION, B Routine 10/27/2023 10:33 AM BIOLOGICAL AIDE Alcohol Moderate Or Severe Use Disorder (Dependence) Uncomplicated (HCC) BASIC METABOLIC PANEL, S/P Routine 10/27/2023 10:33 AM BIOLOGICAL AIDE Alcoholic Cirrhosis Of Liver With Ascites (HCC) US PARACENTESIS WITH IMAGING GUIDANCE RAD - Routine (most inpatients and all outpatients) 10/22/2023 10:18 AM BIOLOGICAL AIDE Ascites CELL COUNT AND DIFFERENTIAL, BF Timed 10/22/2023 8:54 AM BIOLOGICAL AIDE Ascites BACTERIAL CULTURE, AEROBIC + SUSC Timed 10/22/2023 8:54 AM BIOLOGICAL AIDE Ascites BASIC METABOLIC PANEL, S/P Routine 10/20/2023 1:08 PM BIOLOGICAL AIDE Ascites HCV AB SCRN W/REFLEX TO HCV PCR, S Routine 10/06/2023 12:17 PM BIOLOGICAL AIDE Alcoholic Cirrhosis Of Liver With Ascites (HCC) COLONOSCOPY Routine 10/10/2015 2:45 PM BIOLOGICAL AIDE from Last 3 Months or Most Recently [...] Katja Umana M.D. LAB BLOOD ADD-ON [facility] [address] [place] [address], [facility] DTL [facility] [address] [place] [address] * (ABNORMAL) CBC with Differential, Blood (12/09/2023 [...] Katja Umana M.D. LAB BLOOD ADD-ON [facility] [address] [place] [address], [place] DTL [facility] [address] [place] [address] [facility] [address] [place] [address] * (ABNORMAL) Comprehensive Metabolic Panel (12/09/2023 5:16 PM CDT) [facility] Potassium, S 5.0 3.6 - [...] Katja Umana M.D. LAB BLOOD ADD-ON [facility] [address] [place] [address], [address] [address] * Bacterial Culture, Aerobic + Susceptibility (11/19/2023 10:50 AM BIOLOGICAL AIDE) Only the most recent of3 resultswithin the time period is included. Bacterial Culture, Aerobic + Susc No growth after 5 days of incubation. 11/24/2023 8:27 AM CDT DTL Fluid (Peritoneal Fluid) 11/19/2023 10:50 AM BIOLOGICAL AIDE Narrative [facility] - 11/24/2023 8:27 AM CDT Bacterial Culture: Received Bactec aerobic and Bactec anaerobic bottles Felipe Morales M.D. LAB MICROBIOLOGY - GENERAL ORDERABLES [facility] [address] [place] [address], [place] [address] * Cell Count and Differential, Body Fluid (11/19/2023 10:50 AM BIOLOGICAL AIDE) Only the most recent of3 resultswithin the time period is included. Fluid Type Peritoneal /Paracente sis 11/19/2023 12:39 PM BIOLOGICAL AIDE [facility] Gross Appearance Serous 11/19/19 12:39 PM BIOLOGICAL AIDE [facility] Total Nucleated Cells 201 /mcL 11/19/2023 12:39 PM BIOLOGICAL AIDE [facility] Comment: ----REFERENCE VALUE---- Synovial: <150 /mcL Peritoneal: <500 /mcL Pleural: <500 /mcL Pericardial: <500 /mcL ----ADDITIONAL INFORMATION---- This test has been modified from the controls project engineer's instructions. Its performance characteristics were determined by [facility] in a manner consistent with CLIA requirements. This test has not been cleared or approved by the U.S. Food and Drug Administration. Neutrophils 20 % 11/19/2023 1:42 PM BIOLOGICAL AIDE [facility] Comment: ----REFERENCE VALUE---- Synovial: <25% Peritoneal: <25% Pleural: <25% Pericardial: <25% Lymphocytes 16 Synovial <75% % 11/19/2023 1:42 PM BIOLOGICAL AIDE [facility] Monocytes/Macropha ges 60 Synovial <70% % 11/19/2023 1:42 PM BIOLOGICAL AIDE [facility] Other Cells 4 % 11/19/2023 1:42 PM BIOLOGICAL AIDE [facility] Comment: ----REFERENCE VALUE---- The reference range and other method performance specifications have not been established for this bodyfluid. The test result must be integrated into the clinical context for interpretation. Other Cells Are: See Comment 11/19/2023 1:42 PM BIOLOGICAL AIDE [facility] Comment:Mesothelial cells Comment See Comment 11/19/2023 1:42 PM BIOLOGICAL AIDE [facility] Comment:No blasts or maligna nt cells seen. Reviewed by: Jose 11/19/2023 1:42 PM BIOLOGICAL AIDE [facility] Fluid (Peritoneal Fluid) 11/19/2023 10:50 AM BIOLOGICAL AIDE Felipe Morales M.D. LAB BODY FLUIDS AND STOOLS ORDERABLES [facility] [address] [place] [address], [facility] [address] [place] [address] * (ABNORMAL) Basic Metabolic Panel (11/01/2023 12:49 PM BIOLOGICAL AIDE) Only the most recent of3 resultswithin the time period is included. Potassium, P 4.1 3.6 - 5.2 mmol/L 11/01/2023 1:13 PM BIOLOGICAL AIDE [facility] Sodium, P 128(L) 135 - 145 mmol/L 11/01/2023 1:13 PM BIOLOGICAL AIDE [facility] Chloride, P 95(L) 98 - 107 mmol/L 11/01/2023 1:13 PM BIOLOGICAL AIDE [facility] Bicarbonate, P 26 22 - 29 mmol/L 11/01/2023 1:13 PM BIOLOGICAL AIDE [facility] Anion Gap, P 7 7 - 15 11/01/2023 1:13 PM BIOLOGICAL AIDE [facility] BUN (Blood Urea Nitrogen), P 10 6 - 21 mg/dL 11/01/2023 1:13 PM BIOLOGICAL AIDE [facility] Creatinine 0.42(L) 0.59 - 1.04 mg/dL 11/01/2023 1:13 PM BIOLOGICAL AIDE [facility] Estimated GFR (eGFR) >90 >=60 mL/min/BSA 11/01/2023 1:13 PM BIOLOGICAL AIDE [facility] Comment: Estimated GFR calculated using the 2020 CKD_EPI creatinine equation. Calcium, Total, P 8.3(L) 8.8 - 10.2 mg/dL 11/01/2023 1:13 PM BIOLOGICAL AIDE [facility] Glucose, P 105 70 - 140 mg/dL 11/01/2023 1:13 PM BIOLOGICAL AIDE [facility] Blood (Blood, Venous) 11/01/2023 12:49 PM BIOLOGICAL AIDE 11/01/2023 12:54 PM BIOLOGICAL AIDE Katja Umana M.D. LAB BLOOD ADD-ON [facility] [address] [place], [place] [id number], [facility] CNFL [facility] in [address] [address] * Ethyl Glucuronide Confirmation, Random, Urine (10/27/2023 10:38 AM BIOLOGICAL AIDE) Ethyl Glucuronide Confirmation, U Negative Cutoff: 250 ng/mL 10/29/2023 8:19 AM BIOLOGICAL AIDE [facility] Ethyl Sulfate Negative Cutoff: 100 ng/mL 10/29/2023 8:19 AM BIOLOGICAL AIDE [facility] Ethyl Gluc/Sulfate Interpretation Negative. 10/29/2023 8:19 AM BIOLOGICAL AIDE [facility] Comment: ----ADDITIONAL INFORMATION---- This report is intended for use in clinical monitoring and management of patients. ??It is not intended for use in employment-related testing. This test was developed and its performance characteristics determined by [facility] in a manner consistent with CLIA requirements. This test has not been cleared or approved by the U.S. Food and Drug Administration. Urine (Urine, Midstream) 10/27/2023 10:38 AM BIOLOGICAL AIDE 10/27/2023 10:00 PM [facility] [[email or web address]] Romana Diane M.D., Ph.D. LAB URI NE ORDERABLES [facility] [address] [place] [address] [facility] [address] [place] [address] [place] [address] * Drug Abuse Survey with Confirmation, Urine (10/27/2023 10:38 AM [facility] [[email or web address] Alcohol Negative Cutoff: 10 mg/dL 10/28/2023 9:08 AM [facility] Amphetamines Negative Cutoff: 500 ng/mL 10/28/2023 9:08 AM [facility] Barbiturates Negative Cutoff: 200 ng/mL 10/28/2023 9:08 AM [facility] Benzodiazepines Negative Cutoff: 100 ng/mL 10/28/2023 9:08 AM [facility] Cocaine Negative Cutoff: 150 ng/mL 10/28/2023 9:08 AM [facility] Comment: This cocaine immunoassay targets benzoylecgonine the primary metabolite of cocaine. Opiates Negative Cutoff: 300 ng/mL 10/28/2023 9:08 AM [facility] Phencyclidine Negative Cutoff: 25 ng/mL 10/28/2023 9:08 AM [facility] Tetrahydrocannabinol Negative Cutoff: 50 ng/mL 10/28/2023 9:08 AM [facility] Comment: This immunoassay targets delta-9 tetrahydrocannabinol carboxylic acid (THC-COOH), a metabolite of delta-9 tetrahydrocannabinol the main psychoactive ingredient of marijuana. ----ADDITIONAL INFORMATION---- This report is intended for use in clinical monitoring or management of patients. ??It is not intended for use in employment-related testing. Urine (Urine, Midstream) 10/27/2023 10:38 AM BIOLOGICAL AIDE 10/27/2023 10:03 PM BIOLOGICAL AIDE Romana Diane M.D., Ph.D. LAB URI NE ORDERABLES [facility] [address] [address] [facility] [address] [place] [address] [place] [address] * Phosphatidylethanol Confirmation (10/27/2023 10:33 AM BIOLOGICAL AIDE) PEth 16:0/18:1 (POPEth) by LC-MS/MS <20 Cutoff: 10 ng/mL 10/29/2023 8:22 PM BIOLOGICAL AIDE SDS Comment: Testing performed at a x2 [...] <10 Cutoff: 10 ng/mL 10/29/2023 8:22 PM BIOLOGICAL AIDE [facility] Comment: PEth 16:0/18:2 (PLPEth) Reference ranges are not well established PEth Interpretation Negative. 10/29 8:22 PM BIOLOGICAL AIDE SDS Comment: ----ADDITIONAL INFORMATION---- This report is intended for use in clinical monitoring and management of patients. ??It is not intended for use in employment-related testing. This test was developed and its performance characteristics determined by [facility] in a manner consistent with CLIA requirements. This test has not been cleared or approved by the U.S. Food and Drug Administration. Blood (Blood, Venous) 10/27/2023 10:33 AM BIOLOGICAL AIDE 10/27/2023 9:57 PM BIOLOGICAL AIDE Romana Diane M.D., Ph.D. LAB BLO OD ADD-ON [facility] [address] [place] [address] [facility] [address] [place] [address] [place] [address] * HCV Ab Scrn w/Reflex to HCV PCR, Serum (10/06/2023 12:17 PM BIOLOGICAL AIDE) HCV Ab Screen, S Negative Negative 10/06/2023 9:12 PM BIOLOGICAL AIDE [facility] Comment:[id number] rat io is <1.00. Blood (Blood, Venous) 10/06/2023 12:17 PM BIOLOGICAL AIDE 10/06/2023 3:57 PM BIOLOGICAL AIDE Katja Umana M.D. LAB MICROBIOLOGY - B LOOD ORDERABLES Performing Organization Address [facility]/ZIP Co de Phone Number [facility] [address] [place] [address] [facility] [address] [place] [address] * Colonoscopy (10/10/2015 2:45 PM BIOLOGICAL AIDE) 10/10/2015 2:45 PM BIOLOGICAL AIDE Tanner Calderón GI PROCEDURE [facility] [address] [place] [address], [facility] from Last 3 Months or Most Recently Relevant to Health Maintenance Care Teams Missile Tracking Technician Relationship Specialty Start Date End Date Elsewhere, Pcp PCP - General Family Medicine 12/07/23
--- OUTSIDE RECORDS SUMMARY | 2024-01-11 10:27 | XMS_ITS | Clinical Summary ---
Author Name Unknown Organization [employer] [facility] Address [place], [place] [address] Care Team Providers Care Supervisor Inspecting Name Role Phone Jared Delgado MD Primary Care Provider [phone] Allergies No known active allergies Medications Medication [...] Travel 4 1:10 PM CDT Anesthesia Event [address] [address] Gabe Webber MD 4 12:12 PM CDT - 4 12:57 PM CDT Surgery [address] [address] Janet Torres MBBS ESOPHAGOGASTRODUODENOSCOPY 4 8:52 PM CDT - 4 5:25 PM CDT Hospital Encounter [address] [address] s, U Hospitalist zachery Jett, MD Kim [...] - 145 mmol/L 12/06/2023 11:58 AM CDT [facility] Blood BLOOD SPECIMEN / Unknown Butterfly / Unknown 12/06/2023 11:25 AM CDT 12/06/2023 11:50 AM CDT Freddy Moctezuma MD CHEMISTRY [facility] SENDOUT INTERNAL ZIP [address] [place] [address] * (ABNORMAL) HEMOGLOBIN (12/06/2023 9:05 AM CDT) Only the most recent of6 resultswithin the time period is included. HEMOGLOBIN 7.6(L) 12.0 - 16.0 g/dL 12/06/2023 9:29 AM CDT [facility] MCV 94 80 - 100 fL 12/06/2023 9:29 AM CDT [facility] Blood BLOOD SPECIMEN / Unknown Venipuncture / Unknown 12/06/2023 9:05 AM CDT 12/06/2023 9:24 AM CDT Freddy Moctezuma MD HEMATOLOGY [facility] SENDOUT INTERNAL ZIP [address] [place] [address] * (ABNORMAL) BASIC METABOLIC PANEL (12/05/2023 1:42 PM CDT) Only the most recent of3 resultswithin the time period is included. SODIUM 122(L) 136 - 145 mmol/L 12/05/2023 2:37 PM CDT [facility] POTASSIUM 4.6 3.5 - 5.1 mmol/L 12/05/2023 2:37 PM CDT [facility] CHLORIDE 92(L) 98 - 107 mmol/L 12/05/2023 2:37 PM CDT [facility] CO2,TOTAL 20(L) 22 - 29 mmol/L 12/05/2023 2:37 PM CDT [facility] ANION GAP 10 5 - 18 12/05/2023 2:37 PM CDT [facility] GLUCOSE 97 70 - 99 mg/dL 12/05/2023 2:37 PM CDT [facility] CALCIUM 7.8(L) 8.8 - 10.2 mg/dL 12/05/2023 2:37 PM CDT [facility] BUN 11 8 - 23 mg/dL 12/05/2023 2:37 PM CDT [facility] CREATININE 0.50 0.50 - 0.90 mg/dL 12/05/2023 2:37 PM CDT [facility] BUN/CREAT RATIO 22(H) 10 - 20 2:37 PM CDT [facility] eGFR >90 >90 mL/min/1.7 3m2 12/05/2023 2:37 PM CDT [facility] Comment:As of 2021, eG FR [...] 2:10 PM CDT Freddy Moctezuma MD CHEMISTRY [facility] SENDOUT INTERNAL ZIP [address] [place] [address] * LC HEP A AB, TOTAL (12/04/2023 9:21 AM CDT) Hep A Ab Tot Negative Negative 12/08/2023 11:10 AM CDT [facility] (CET) Comment: Comment: The HAV total antibody assay detects both IgG and IgM but does not differentiate between them. A negative result suggests susceptibility to infection. A positive result could be due to vaccination, previously resolved infection or active infection. Testing for HAV IgM should be performed if active HAV infection is suspected. [facility] offers profiles that will automatically reflex positive HAV total antibody results to IgM (e.g., panel #[id number] HAV Antibody w/ Rfx). Blood BLOOD SPECIMEN / Unknown Venipuncture / Unknown 12/04/2023 9:21 AM CDT 12/04/2023 9:29 AM CDT Narrative [facility] (CET) - 12/08/2023 11:10 AM CDT Performed at: ??[address] - [address] ??[id number] [employer] Apprentice: Carlos Piña MD, Phone: ??[phone] Janet DELGADO LABORATORY [facility] (CET) [address] [place] [address] * ANTI HBS QUANT AHS (12/04/2023 9:21 AM CDT) ANTI HBS QUANT <3.50 mIU/mL 12/04/2023 3:36 PM CDT [facility] Blood BLOOD SPECIMEN / Unknown Venipuncture / Unknown 12/04/2023 9:21 AM CDT 12/04/2023 9:29 AM CDT Narrative [facility] - 12/04/2023 3:36 PM CDT [...] prior to retesting. Janet JULIOBS SEND OUTS [facility] [address] [place] [address], * (ABNORMAL) PROTIME-INR (12/04/2023 9:21 AM CDT) INR 1.7(H) <1.3 12/04/2023 9:58 AM CDT [facility] PROTIME 18.5(H) 10.3 - 12.3 sec 12/04/2023 9:58 AM CDT [facility] Blood BLOOD SPECIMEN / Unknown Venipuncture / Unknown 12/04/2023 9:21 AM CDT 12/04/2023 9:30 AM CDT [facility] - 12/04/2023 9:58 AM CDT ?Therapeutic [...] is on UFH. Felipe Alvarez MD HEMATOLOGY [facility] SENDOUT INTERNAL ZIP [phone] [place] [address] * (ABNORMAL) AMMONIA (12/04/2023 9:21 AM CDT) AMMONIA 129(HH) 16 - 60 umol/L 12/04/2023 10:05 AM CDT [facility] Blood BLOOD SPECIMEN / Unknown Venipuncture / Unknown 12/04/2023 9:21 AM CDT 12/04/2023 9:28 AM CDT Narrative [facility] - 12/04/2023 10:05 AM CDT 1. ??Sulfasalazine and its metabolite Sulfapyridine at therapeutic concentrations may lead to falsely low results. 2. ??Temozolomide and its metabolite MTIC may lead to falsely elevated results, and its metabolite AIC may lead to falsely low results. Felipe Alvarez MD CHEMISTRY [facility] SENDOUT INTERNAL ZIP [phone] [place] [address] * US PARACENTESIS W IMAGING (12/03/2023 4:51 PM CDT) Anatomical Region Laterality Modality CHEST, Lung, THORAX Ultrasound 12/03/2023 4:51 PM CDT Impressions 12/03/2023 4:56 PM CDT 1. ??Status post ultrasound-guided paracentesis. Reference CPT Code: 83130 Narrative 12/03/2023 4:56 PM CDT For Patients: As a result of the Cures Act, medical imaging exams and procedure reports are released immediately into your electronic medical record. You may view this report before your referring provider. If you have questions, please contact your health care provider. EXAM: 1. PARACENTESIS 2. ULTRASOUND GUIDANCE LOCATION: [facility] MEDICAL IMAGING DATE: 12/03/2023 INDICATION: Ascites. PROCEDURE: Informed consent obtained. Time out performed. The abdomen was prepped and draped in a sterile fashion. 10 mL of 1% lidocaine was infused into local soft tissues. A 5 English catheter system was introduced into the abdominal [...] EXAM: 1. PARACENTESIS 2. ULTRASOUND GUIDANCE LOCATION: [facility] MEDICAL IMAGING DATE: 12/03/2023 INDICATION: Ascites. PROCEDURE: Informed consent obtained. Time out performed. The abdomen wasprepped and draped in a sterile fashion. 10 mL of 1% lidocaine was infusedinto local soft tissues. A 5 English catheter system was introduced intothe abdominal ascites under ultrasound guidance. 7.1 liters of clear fluid were removed and sent to lab if requested. Patient tolerated procedure well. Ultrasound imaging was obtained and placed in the patient's permanentmedical record. IMPRESSION: 1. Status post ultrasound-guided paracentesis. Reference CPT Code: 14109 Janet DELGADO US * Body Fluid Culture and Stain (12/03/2023 4:20 PM CDT) CULTURE No Growth. 12/08/2023 7:52 AM CDT [facility] GRAM STAIN 2+ PMNs 12/08/2023 7:52 AM CDT [facility] GRAM STAIN No organisms seen 12/08/2023 7:52 AM CDT [facility] GRAM STAIN No Epithelial cells 12/08/2023 7:52 AM CDT [facility] GRAM STAIN No RBCs 12/08/2023 7:52 AM CDT [facility] GRAM STAIN Gram stain performed by [place], [place] 12/08/2023 7:52 AM CDT [facility] Body Fluid PERITONEAL FLUID SPECIMEN / Unknown Non-Blood / Unknown 12/03/2023 4:20 PM CDT 12/03/2023 4:40 PM CDT Janet DELGADO MICROBIOLOGY [facility] [address] [place] [address], [facility] SENDOUT INTERNAL ZIP [address] [place] [address] * Body Fluid Cell Count and Differential (12/03/2023 4:20 PM CDT) BODY FLUID SOURCE Ascitic Fluid 12/03/2023 7:27 PM CDT [facility] BODY FLUID COLOR Yellow 12/03/2023 7:27 PM CDT [facility] BODY FLUID CLARITY Clear 12/03/2023 7:27 PM CDT [facility] TOTAL NUCLEATED CELLS, BF 85 /cu mm 12/03/2023 7:27 PM CDT [facility] RED BLOOD COUNT, BODY FLUID <2,000 /cu mm 12/03/2023 7:27 PM CDT [facility] % NEUTROPHILS, BODY FLUID 17 % 12/03/2023 7:27 PM CDT [facility] % LYMPHOCYTES, BODY FLUID 25 % 12/03/2023 7:27 PM CDT [facility] % MONO/MACRO, BODY FLUID 58 % 12/03/2023 7:27 PM CDT [facility] Body Fluid PERITONEAL FLUID SPECIMEN / Unknown Non-Blood / Unknown 12/03/2023 4:20 PM CDT 12/03/2023 4:40 PM CDT [facility] - 12/03/2023 7:27 PM CDT TO ORDER BODY FLUID CULTURES, USE; [id number] BODY FLUID CULTURE, STAIN Janet DELGADO BODY FLUID [facility] SENDOUT INTERNAL ZIP [address] [place] [address] * Protein, Body Fluid (12/03/2023 4:20 PM CDT) SPECIMEN SOURCE Peritoneal fluid 12/03/2023 5:26 PM CDT [facility] PROTEIN,BODY FLUID 0.6 g/dL 12/03/2023 5:26 PM CDT [facility] Comment:No Reference Range D efined. Body Fluid PERITONEAL FLUID SPECIMEN / Unknown Non-Blood / Unknown 12/03/2023 4:20 PM CDT 12/03/2023 4:40 PM CDT [facility] - 12/03/2023 5:26 PM CDT Pleural: [...] Test developed & performance characteristics determined by [employer], [place], [place] consistent with CLIA requirements. Not cleared or approved by [place] FDA. Janet Torres [facility] BODY FLUID Performing Organization Address [facility]/ZIP Co de Phone Number [facility] SENDOUT INTERNAL ZIP [phone] [place] [address] * Albumin, Body Fluid (12/03/2023 4:20 PM CDT) SPECIMEN SOURCE Peritoneal fluid 12/03/2023 5:26 PM CDT [facility] ALBUMIN,BODY FLUID 0.3 g/dL 12/03/2023 5:26 PM CDT [facility] Comment:No Reference Range D efined. Body Fluid PERITONEAL FLUID SPECIMEN / Unknown Non-Blood / Unknown 12/03/2023 4:20 PM CDT 12/03/2023 4:40 PM CDT [facility] - 12/03/2023 5:26 PM CDT Peritoneal: ??SAAG >/= 1.1 g/dL indicates portal Hypertension. Pleural: ? SEAG > 1.2 g/dL is consistent with a transudative process and may ?be more accurate in patients receiving diuretic therapy. Test developed & performance characteristics determined by [employer], [place], [place] consistent with CLIA requirements. Not cleared or approved by [place] FDA. Janet JULIO BODY FLUID Performing Organization Address [facility]/ZIP Co de Phone Number [facility] SENDOUT INTERNAL ZIP [phone] [place] [address] * FERRITIN (12/03/2023 2:47 PM CDT) Pathologist [facility] FERRITIN 131.0 15.0 - 150.0 ng/mL 12/03/2023 9:31 PM CDT [facility] Blood BLOOD SPECIMEN / Unknown Venipuncture / Unknown 12/03/2023 2:47 PM CDT 12/03/2023 2:51 PM CDT Janet DELGADO CHEMISTRY [facility] [employer] [facility] [address] [place] [address], * PATH TISSUE EXAM (12/03/2023 1:23 PM CDT) [facility] Case Report Pathology Report ?Case: [id number] ? Authorizing Provider: ??Brian, Janet, SANDY ?Collected: ? 12/03/2023 1323 ? Ordering Location: ? [facility] ?Received: ?12/03/2023 1527 ? Pathologist: ? Marco Tijerina MD ? Specimens: ?? A) - Duodenal Ulcer ? B) - Gastric Biopsy, random gastric ? 4 1:56 PM CDT [facility] Final Diagnosis A) DUODENUM, ULCER, [...] (Helicobacter immunohistochemistry negative) 4 1:56 PM T [facility] Comment B. Mild chronic inflammation in the stomach in the absence of Helicobacter often remains unexplained, but it could reflect prior or treated Helicobacter infection. The likelihood of histologically undetected Helicobacter is quite low in our opinion. 4 1:56 PM T [facility] Clinical Information Ms. Redmond is a 63 y.o. with hematemesis and iron deficiency anemia secondary to chronic blood loss. Upper GI endoscopy shows grade 1 esophageal varices, diffuse mild erythema throughout the stomach, and a superficial duodenal ulcer. 4 1:56 PM T [facility] Gross Description A) Received in [...] 12/03/2023 4:32 PM 4 1:56 PM T [facility] Microscopic Description The final diagnosis is based on microscopic examination of appropriate sections of all specimens. 1:56 PM CDT [facility] Additional Information Interpreted at [facility] - [address], [place] [address] 1:56 PM CDT [facility] Biopsy (Duodenal Ulcer) 12/03/2023 1:23 PM CDT 12/03/2023 3:27 PM CDT Biopsy specimen (specimen) GASTRIC BIOPSY SPECIMEN / Unknown 12/03/2023 1:29 PM CDT 12/03/2023 3:27 PM CDT Janet DELGADO PATHOLOGY/CYTOLOGY [facility] [address] [place] [address], [place] * ENDOSCOPY (12/03/2023 12:57 PM CDT) 12/03/2023 12:5 7 PM CDT Narrative Transcriptions Janet Torres MBBS - 12/03/2023 2:21 PM CDT Patient Name: Monique Redmond Procedure Date: 12/03/2023 Gender: Female Date of : 1960 Admit Type: Inpatient Procedure: Upper GI endoscopy Proceduralist: Janet Torres MD - [facility] Indications/Pre-Op Diagnosis: Hematemesis, Iron deficiency anemiasecondary to chronic blood loss Medications: Propofol per Anesthesia Procedure Description: The patient had risks, benefits and alternatives explained to andgave informed consent. The patient had a stable cardiopulmonary status and judged an adequate candidate for conscious sedation. The endoscope [id number] was introduced through the mouth, and advanced [...] 11.0 thou/cu mm 12/03/2023 5:12 AM CDT [facility] RED BLOOD COUNT 2.21(L) 4.00 - 5.20 mil/cu mm 12/03/2023 5:12 AM [facility] HEMOGLOBIN 7.3(L) 12.0 - 16.0 g/dL 12/03/2023 5:12 AM T [facility] HEMATOCRIT 21.5(L) 33.0 - 51.0 % 12/03/2023 5:12 AM [facility] MCV 97 80 - 100 fL 12/03/2023 5:12 AM [facility] MCH 33.0 26.0 - 34.0 pg 12/03/2023 5:12 AM [facility] MCHC 34.0 32.0 - 36.0 g/dL 12/03/2023 5:12 AM [facility] RDW 17.2(H) 11.5 - 15.5 % 12/03/2023 5:12 AM T [facility] PLATELET COUNT 167 140 - 440 thou/cu mm 12/03/2023 5:12 AM T [facility] MPV 8.9 6.5 - 11.0 fL 12/03/2023 5:12 AM T [facility] NRBC 0.0 % 12/03/2023 5:12 AM T [facility] ABS NRBC 0.0 thou /cu mm 12/03/2023 5:12 AM T [facility] % NEUT 65.0 % 12/03/2023 5:12 AM T [facility] % LYMPH 25.6 % 12/03/2023 5:12 AM T [facility] % MONO 7.5 % 12/03/2023 5:12 AM CDT [facility] % EOS 1.0 % 12/03/2023 5:12 AM CDT [facility] % BASO 0.3 % 12/03/2023 5:12 AM CDT [facility] % IMMATURE GRAN (METAS,MYELOS,NV OS) 0.6 % 12/03/2023 5:12 AM CDT [facility] ABSOLUTE NEUTROPHILS 5.7 1.7 - 7.0 thou/cu mm 12/03/2023 5:12 AM CDT [facility] ABSOLUTE LYMPHOCYTES 2.2 0.9 - 2.9 thou/cu mm 12/03/2023 5:12 AM CDT [facility] ABSOLUTE MONOCYTES 0.7 <0.9 thou/cu mm 12/03/2023 5:12 AM CDT [facility] ABSOLUTE EOSINOPHILS 0.1 <0.5 thou/cu mm 12/03/2023 5:12 AM CDT [facility] ABSOLUTE BASOPHILS 0.0 <0.3 thou/cu mm 12/03/2023 5:12 AM CDT [facility] ABSOLUTE IMMATURE GRANULOCYTES(MET ,MYELOS,PROS) 0.1 <0.3 thou/cu mm 12/03/2023 5:12 AM CDT [facility] Blood BLOOD SPECIMEN / Unknown Butterfly / Unknown 12/03/2023 3:34 AM CDT 12/03/2023 3:37 AM CDT Adama Jett MD HEMATOLOGY [facility] SENDOUT INTERNAL ZIP [address] [place] [address] * (ABNORMAL) RED CELL MORPHOLOGY (12/03/2023 3:34 AM CDT) POLYCHROMASIA Slight 12/03/2023 5:12 AM CDT [facility] SCHISTOCYTES Few 12/03/2023 5:12 AM CDT [facility] RBC COMMENT Present(A) RBC morphology appears normal, RBC morphology within normal limits for newborns. 12/03/2023 5:12 AM CDT [facility] Blood BLOOD SPECIMEN / Unknown Butterfly / Unknown 12/03/2023 3:34 AM CDT 12/03/2023 3:37 AM CDT Adama Jett MD HEMATOLOGY [facility] SENDOUT INTERNAL ZIP [phone] [place] [phone] * PLATELET ESTIMATE (12/03/2023 3:34 AM CDT) PLATELET ESTIMATE Adequate Adequate, No estimate 12/03/2023 5:12 AM CDT [facility] Blood BLOOD SPECIMEN / Unknown Butterfly / Unknown 12/03/2023 3:34 AM CDT 12/03/2023 3:37 AM CDT Admaa Jett MD HEMATOLOGY Performing Organization Address [facility]/ZIP Co de Phone Number [facility] SENDOUT INTERNAL ZIP [phone] [place] [phone] * (ABNORMAL) IRON PLUS IRON BINDING CAP (12/03/2023 3:34 AM CDT) IRON 49 37 - 145 ug/dL 12/03/2023 3:46 PM CDT [facility] UIBC (UNSATURATED) 67(L) 112 - 347 ug/dL 12/03/2023 3:46 PM CDT [facility] IRON BINDING CAPACITY 116(L) 250 - 400 ug/dL 12/03/2023 3:46 PM CDT [facility] IRON,% SATURATION 42 14 - 50 % 12/03/2023 3:46 PM CDT [facility] Blood BLOOD SPECIMEN / Unknown Butterfly / Unknown 12/03/2023 3:34 AM CDT 12/03/2023 3:37 AM CDT Janet JULIOBS CHEMISTRY [facility] SENDOUT INTERNAL ZIP [phone] [place] [phone] * (ABNORMAL) MAGNESIUM (12/03/2023 3:34 AM CDT) MAGNESIUM 2.5(H) 1.6 - 2.4 mg/dL 12/03/2023 3:57 AM CDT [facility] Blood BLOOD SPECIMEN / Unknown Butterfly / Unknown 12/03/2023 3:34 AM CDT 12/03/2023 3:37 AM CDT Adama Jett MD CHEMISTRY [facility] SENDOUT INTERNAL ZIP [phone] [place] [address] * SCAN-CARDIAC STRIP (12/02/2023 11:58 PM CDT) Scanner OTHER * (ABNORMAL) HEPATIC FUNCTION PANEL (12/02/2023 10:56 PM CDT) ALBUMIN 2.8(L) 4.0 - 4.9 g/dL 12/02/2023 11:22 PM CDT [facility] PROTEIN,TOTAL 6.5 6.0 - 8.0 g/dL 12/02/2023 11:22 PM CDT [facility] BILIRUBIN,TOTAL 3.0(H) 0.0 - 1.2 mg/dL 12/02/2023 11:22 PM CDT [facility] BILIRUBIN,DIRECT 1.3(H) 0.0 - 0.3 mg/dL 12/02/2023 11:22 PM CDT [facility] BILIRUBIN,INDIRE CT 1.7(H) 0.2 - 0.8 mg/dL 12/02/2023 11:22 PM CDT [facility] ALK PHOSPHATASE 114(H) 35 - 104 IU/L 12/02/2023 11:22 PM CDT [facility] ALT (SGPT) 31 10 - 35 IU/L 12/02/2023 11:22 PM CDT [facility] AST (SGOT) 87(H) 10 - 35 IU/L 12/02/2023 11:22 PM CDT [facility] Blood BLOOD SPECIMEN / Unknown Venipuncture / Unknown 12/02/2023 10:56 PM CDT 12/02/2023 11:01 PM CDT Adama Jett MD CHEMISTRY [facility] SENDOUT INTERNAL ZIP [phone] [place] [address] from Last 3 Months Advance Directives * Full Code (Latest Code Status on File) Date Activated Date Inactivated Comments 12/02/2023 9:46 PM 12/06/2023 7:35 PM Question Answer Comments Code Status Discussion: Reviewed Preferences Care Teams Supervisor Inspecting Relationship Specialty Start Date End Date Jared Delgado MD [address] [place] [address] PCP - General Family Practice 12/04/23
--- OUTSIDE RECORDS SUMMARY | 2024-01-11 10:28 | XMS_ITS | Encounter Summary ---
Author Name Unknown Organization [facility] Address [address] [place] [address] Care Team Providers Care Cone Runner Name Role Phone Elsewhere, Pcp Primary Care Provider Unavailabl e Reason for Visit * Reason Comments Nicotine Dependence * Outpatient (Routine) - Closed Specialty Diagnoses / Procedures Referred By Contac t Referred To Contact Nicotine Dependence Sudha Bernstein M.A., Yesy.I.C.S.W., M.S.W. [address] [place] [phone] [facility] Referral ID Status Reason Start Date Expiration Date Visits Re quested Visits Authorized [id number] Closed 11/11/2023 05/12/2025 1 1 Encounter Details Date Type Department Care Team (Late st Contact Info) Description 11/18/2023 11:00 AM FIRM ADMINISTRATOR Virtual Visit Department of Nicotine Dependence, [facility], in [place], [place] [address] [place] [phone] Sudha Bernstein M.A., L.I.C.S.W., M.S.W. [address] [place] [phone] Nicotine Dependence Cigarettes With Withdrawal (Primary Dx) Social History Tobacco Use Types Packs/Day Years Used Date Smoking Tobacco: Every Day Cigarettes 0.5 40 Smokeless Tobacco: Never Alcohol Use Standard Drinks/Week Comments Not Currently 0 (1 standard drink = 0.6 oz pur e alcohol) [facility] Utilities Answer Date Recorded In the past 12 months has [employer] electric, gas, oil, or water company threatened [...] Date Recorded Employment status Working with temporary [employer] t[employer] 10/15/2023 Housing Stability Answer Date Recorded What is your living situation today? [facility] 10/15/2023 Sex and Gender Information Value Date Recorded Sex Assigned at Female 10/06/2023 10:50 AM FIRM ADMINISTRATOR Gender Identity Female 10/06/2023 10:50 AM FIRM ADMINISTRATOR Sexual Orientation Straight 10/06/2023 10 :50 AM FIRM ADMINISTRATOR documented as of this encounter Progress Notes [...] 10 minutes was spent on tobacco counseling. ADMINISTRATOR documented in this encounter Plan of Treatment Upcoming Encounters Date Type Department Care Team (Late st Contact Info) Description 01/19/2024 10:00 AM CDT Telemedicine Department of Nutrition and Diabetes Education in [place], [place] [address] [place] [address] Katja Umana M.D. [address] [place] [phone] Taty Cunningham M.S., RDN, LD [address] [place] [phone] 02/04/2024 2:15 PM CDT Appointment Division of Gastroenterology in [place], [place] [address] [place] [address] Katja Umana M.D. [address] [place] [address] Hayden Smith M.D. [address] [place] [address] 03/21/2024 1:00 PM CDT Virtual Visit Department of Nicotine Dependence, [facility], in [place], [place] [address] [place] [address] documented as of this encounter Visit Diagnoses Diagnosis Nicotine Dependence Cigarettes With Withdrawal- Primary documented in this encounter Additional Health Concerns Assessment Noted Time PHQ-9 Depression Total Score: 3 10/20/19 24 7:30 AM FIRM ADMINISTRATOR documented as of this encounter Care Teams Cone Runner Relationship Specialty Start Date End Date Elsewhere, Pcp PCP - General Family Medicine 12/07/23 documented as of this encounter
--- OUTSIDE RECORDS SUMMARY | 2024-01-11 10:28 | XMS_ITS | Encounter Summary ---
Author Name Unknown Organization [facility] Address [address] [place] [address] Care Team Providers Care Credit Collector Name Role Phone Unavailable Primary Care Provider Unavailabl e Reason for Visit * Reason Comments Nicotine Dependence * Outpatient (Routine) - Closed Specialty Diagnoses / Procedures Referred By Contlulu t Referred To Contact Nicotine Dependence Sudha Bernstein M.A., Yesy.I.C.S.W., M.S.W. [address] [place] [phone] [facility] Referral ID Status Reason Start Date Expiration Date Visits Re quested Visits Authorized [id number] Closed 10/28/2023 04/28/2025 1 1 Encounter Details Date Type Department Care Team (Late st Contact Info) Description 11/11/2023 11:00 AM LEATHER LACER Virtual Visit Department of Nicotine Dependence, [facility], in [place], [place] [address] [place] [phone] Sudha Bernstein M.A., L.I.C.S.W., M.S.W. [address] [place] [phone] Nicotine Dependence Cigarettes With Withdrawal (Primary Dx) Social History Tobacco Use Types Packs/Day Years Used Date Smoking Tobacco: Every Day Cigarettes 0.5 40 Smokeless Tobacco: Never Alcohol Use Standard Drinks/Week Comments Not Currently 0 (1 standard drink = 0.6 oz pur e alcohol) [facility] Utilities Answer Date Recorded In the past 12 months has [employer], gas, oil, or water company threatened [...] Sex Assigned at Female 10/06/2023 10:50 AM LEATHER LACER Gender Identity Female 10/06/2023 10:50 AM LEATHER LACER Sexual Orientation Straight 10/06/2023 10 :50 AM LEATHER LACER documented as of this encounter Progress Notes [...] concerns. The patient denied interest in having [facility] staff ask the [facility] medicalprovider if they recommend a different [...] to tape and the patient was informed [facility] staff can ask the [facility] medical provider to write on the [...] 25 minutes was spent on tobacco counseling. HER LACER documented in this encounter Plan of Treatment Upcoming Encounters Date Type Department Care Team (Late st Contact Info) Description 01/19/2024 10:00 AM CDT Telemedicine Department of Nutrition and Diabetes Education in [place], [place] [address] [place] [phone] Katja Umana M.D. [address] [place] [phone] Taty Cunningham M.S., RDN, LD [address] [place] [phone] 02/04/2024 2:15 PM CDT Appointment Division of Gastroenterology in [place], [place] [address] [place] [phone] Katja Umana M.D. [address] [place] [phone] Hayden Smith M.D. [address] [place] [phone] 03/21/2024 1:00 PM CDT Virtual Visit Department of Nicotine Dependence, [facility], in [place], [place] [address] [place] [phone] documented as of this encounter Visit Diagnoses Diagnosis Nicotine Dependence Cigarettes With Withdrawal- Primary documented in this encounter Additional Health Concerns Assessment Noted Time PHQ-9 Depression Total Score: 3 10/20/19 24 7:30 AM LEATHER LACER documented as of this encounter
--- OUTSIDE RECORDS SUMMARY | 2024-01-11 10:28 | XMS_ITS | Encounter Summary ---
Author Name Unknown Organization [facility] Address [address] [place] [address] Care Team Providers Care Environmental Issues Instructor Name Role Phone Elsewhere, Pcp Primary Care Provider Unavailabl e Reason for Referral * Outpatient (Routine) - Authorized Specialty Diagnoses / Procedures Referred By Dotty t Referred To Contact Diagnoses Ascites Procedures US Paracentesis with Imaging Guidance Katja Umana M.D. [address] [place] [phone] [facility] Referral ID Status Reason Start Date Expiration Date V isits Requested Visits Authorized [id number] Authorized 12/30/2023 12/29/2024 4 4 Encounter Details Date Type Department Care Team (Latest Contact Info) Description 12/28/2023 Clinical Communication Division of Gastroenterology in [place], [place] [address] [place] [phone] Katja Umana M.D. [address] [place] [phone] Social History Tobacco Use Types Packs/Day Years [...] Sex Assigned at Female 10/06/2023 10:50 AM PCB DESIGN ENGINEER Gender Identity Female 10/06/2023 10:50 AM PCB DESIGN ENGINEER Sexual Orientation Straight 10/06/2023 10 :50 AM PCB DESIGN ENGINEER documented as of this encounter Plan of Treatment Upcoming Encounters Date Type Department Care Team (Late st Contact Info) Description 01/19/2024 10:00 AM CDT Telemedicine Department of Nutrition and Diabetes Education in [place], [place] 200 [place] [phone] Katja Umana M.D. [address] [place] [phone] Taty Cunningham M.S., RDN, LD [address] [place] [phone] 02/04/2024 2:15 PM CDT Appointment Division of Gastroenterology in [place], [place] [address] [place] [phone] Katja Umana M.D. [address] [place] [phone] Hayden Smith M.D. [address] [place] [phone] 03/21/2024 1:00 PM CDT Virtual Visit Department of Nicotine Dependence, [facility], in [place], [place] [address] [place] [phone] Scheduled Orders Name Type Priority Associated Diagnoses Order Schedule US Paracentesis with Imaging Guidance Imaging RAD - Routine (most inpatients and all outpatients) Ascites Expected: 01/13/2024, Expires: 03/30/2025 documented as of this encounter Visit Diagnoses Diagnosis Ascites- Primary documented in this encounter Additional Health Concerns Assessment Noted Time PHQ-9 Depression Total Score: 3 10/20/19 24 7:30 AM PCB DESIGN ENGINEER documented as of this encounter Care Teams Environmental Issues Instructor Relationship Specialty Start Date End Date Elsewhere, Pcp PCP - General Family Medicine 12/07/23 documented as of this encounter
--- OUTSIDE RECORDS SUMMARY | 2024-01-11 10:28 | XMS_ITS | Encounter Summary ---
Author Name Unknown Organization [facility] Address [address] [place] [address] Care Team Providers Care Manager Psychology Name Role Phone Elsewhere, Pcp Primary Care Provider Unavailabl e Reason for Visit * Reason Onset Date Comments Phone Contact 12/29/2023 Friends and fami ly authorization Encounter Details Date Type Department Care Team (Latest Contact Info) Description 12/29/2023 Clinical Communication [facility] [place], [place] [address] [place] [phone] Katja Umana M.D. [address] [place] [phone] Phone Contact (Friends and family authorization ) Social History Tobacco Use Types Packs/Day Years Used Date Smoking Tobacco: Every Day Cigarettes 0.5 40.9 Started: 02/11/1983 Passive Smoke Exposure: Never Smokeless Tobacco: Never Alcohol Use Standard Drinks/Week Comments Not Currently 0 (1 standard drink = 0.6 oz pur e alcohol) [facility] Utilities Answer Date Recorded In the past 12 months has [employer], gas, oil, or water [employer] threatened to shut off services in your [...] Date Recorded Employment status Working with temporary [employer] 10/15/2023 Housing Stability Answer Date Recorded What is your living situation today? I have a [facility] place to live 10/15/2023 Sex and Gender Information Value Date Recorded Sex Assigned at Female 10/06/2023 10:50 AM BILLIARD TABLE REPAIRER Gender Identity Female 10/06/2023 10:50 AM BILLIARD TABLE REPAIRER Sexual Orientation Straight 10/06/2023 10 :50 AM BILLIARD TABLE REPAIRER documented as of this encounter Plan of Treatment Upcoming Encounters Date Type Department Care Team (Late st Contact Info) Description 01/19/2024 10:00 AM CDT Telemedicine Department of Nutrition and Diabetes Education in [place], [place] [address] [place] [phone] Katja Umana M.D. [address] [place] [phone] Taty Cunningham M.S., RDN, LD [address] [place] [phone] 02/04/2024 2:15 PM CDT Appointment Division of Gastroenterology in [place], [place] [address] [place] [phone] Katja Umana M.D. [address] [place] [phone] Hayden Smith M.D. [address] [place] [phone] 03/21/2024 1:00 PM CDT Virtual Visit Department of Nicotine Dependence, [facility], in [place], [place] [address] [place] [phone] documented as of this encounter Visit Diagnoses Not on filedocumented in this encounter Additional Health Concerns Assessment Noted Time PHQ-9 Depression Total Score: 3 10/20/19 24 7:30 AM BILLIARD TABLE REPAIRER documented as of this encounter Care Teams Manager Psychology Relationship Specialty Start Date End Date Elsewhere, Pcp PCP - General Family Medicine 12/07/23 documented as of this encounter
--- OUTSIDE RECORDS SUMMARY | 2024-01-11 10:28 | XMS_ITS | Encounter Summary ---
Author Name Unknown Organization [facility] Address [address] [place] [address] Care Team Providers Care Dredge Hand Name Role Phone Elsewhere, Pcp Primary Care Provider Unavailabl e Encounter Details Date Type Department Care Team (Latest Contact Info) Description 12/21/2023 Clinical Communication [facility] in [place], [place] [address] [place] [address] Katja Umana M.D. [address] [place] [phone] Social History Tobacco Use Types Packs/Day Years Used Date Smoking Tobacco: Every Day Cigarettes 0.5 40.9 Started: 02/11/1983 Passive Smoke Exposure: Never Smokeless Tobacco: Never Alcohol Use Standard Drinks/Week Comments Not Currently 0 (1 standard drink = 0.6 oz pur e alcohol) [facility] Utilities Answer Date Recorded In the past 12 months has e [employer], gas, oil, or water [employer] threatened to shut off services in your [...] Date Recorded Employment status Working with temporary [employer] 10/15/2023 Housing Stability Answer Date Recorded What is your living situation today? I have a [facility] place to live 10/15/2023 Sex and Gender Information Value Date Recorded Sex Assigned at Female 10/06/2023 10:50 AM ENGLISH AS A SECOND LANGUAGE TEACHER Gender Identity Female 10/06/2023 10:50 AM ENGLISH AS A SECOND LANGUAGE TEACHER Sexual Orientation Straight 10/06/2023 10 :50 AM ENGLISH AS A SECOND LANGUAGE TEACHER documented as of this encounter Miscellaneous Notes * Telephone Encounter - Liana Estrada - 12/21/2023 10:54 AM CDT Left message for patient to call back on 12/20. documented in this encounter Plan of Treatment Upcoming Encounters Date Type Department Care Team (Late st Contact Info) Description 01/19/2024 10:00 AM CDT Telemedicine Department of Nutrition and Diabetes Education in [place], [place] 200 [place] [address] Katja Umana M.D. [address] [place] [address] Taty Cunningham M.S., RDN, LD [address] [place] [phone] 02/04/2024 2:15 PM CDT Appointment Division of Gastroenterology in [place], [place] [address] [place] [phone] Katja Umana M.D. [address] [place] [phone] Hayden Smith M.D. [address] [place] [phone] 03/21/2024 1:00 PM CDT Virtual Visit Department of Nicotine Dependence, [facility], in [place], [place] [address] [place] [phone] documented as of this encounter Visit Diagnoses Not on filedocumented in this encounter Additional Health Concerns Assessment Noted Time PHQ-9 Depression Total Score: 3 10/20/19 24 7:30 AM ENGLISH AS A SECOND LANGUAGE TEACHER documented as of this encounter Care Teams Dredge Hand Relationship Specialty Start Date End Date Elsewhere, Pcp PCP - General Family Medicine 12/07/23 documented as of this encounter
--- OUTSIDE RECORDS SUMMARY | 2024-01-11 10:28 | XMS_ITS | Encounter Summary ---
Author Name Unknown Organization [facility] Address [address] [place] [address] Care Team Providers Care Folder Machine Adjuster Name Role Phone Elsewhere, Pcp Primary Care Provider Unavailabl e Reason for Visit * Reason Onset Date Comments Scheduling 12/20/2023 Encounter Details Date Type Department Care Team (Latest Contact Info) Description 12/20/2023 Clinical Communication Division of Gastroenterology in [place], [place] [address] [place] [phone] Katja Umana M.D. [address] [place] [address] Scheduling Social History Tobacco Use Types Packs/Day Years Used Date Smoking Tobacco: Every Day Cigarettes 0.5 40.9 Started: 02/11/1983 Passive Smoke Exposure: Never Smokeless Tobacco: Never Alcohol Use Standard Drinks/Week Comments Not Currently 0 (1 standard drink = 0.6 oz pur e alcohol) [facility] Utilities Answer Date Recorded In the past 12 months has [employer], gas, oil, or water [employer] threatened to shut off services in your [...] Date Recorded Employment status Working with temporary [employer] 10/15/2023 Housing Stability Answer Date Recorded What is your living situation today? I have a [facility] place to live 10/15/2023 Sex and Gender Information Value Date Recorded Sex Assigned at Female 10/06/2023 10:50 AM PODIATRIC SURGEON Gender Identity Female 10/06/2023 10:50 AM PODIATRIC SURGEON Sexual Orientation Straight 10/06/2023 10 :50 AM PODIATRIC SURGEON documented as of this encounter Plan of Treatment Upcoming Encounters Date Type Department Care Team (Late st Contact Info) Description 01/19/2024 10:00 AM CDT Telemedicine Department of Nutrition and Diabetes Education in [place], [place] [address] [place] [phone] Katja Umana M.D. 200 [place] [phone] Taty Cunningham M.S., RDN, LD [address] [place] [phone] 02/04/2024 2:15 PM CDT Appointment Division of Gastroenterology in [place], [place] [address] [place] [phone] Katja Umana M.D. [address] [place] [phone] Hayden Smith M.D. [address] [place] [phone] 03/21/2024 1:00 PM CDT Virtual Visit Department of Nicotine Dependence, [facility], in [place], [place] [address] [place] [phone] documented as of this encounter Visit Diagnoses Not on filedocumented in this encounter Additional Health Concerns Assessment Noted Time PHQ-9 Depression Total Score: 3 10/20/19 24 7:30 AM PODIATRIC SURGEON documented as of this encounter Care Teams Folder Machine Adjuster Relationship Specialty Start Date End Date Elsewhere, Pcp PCP - General Family Medicine 12/07/23 documented as of this encounter
--- OUTSIDE RECORDS SUMMARY | 2024-01-11 10:28 | XMS_ITS | Encounter Summary ---
Author Name Unknown Organization [facility] Address [address] [place] [address] Care Team Providers Care Sports Coordinator Name Role Phone Elsewhere, Pcp Primary Care Provider Unavailabl e Reason for Referral * Outpatient (Routine) - Authorized Specialty Diagnoses / Procedures Referred By Contlulu t Referred To Contact Nicotine Dependence Sudha Bernstein M.A., DonnSChandrakant, M.S.W. [address] [place] [phone] [facility] Referral ID Status Reason Start Date Expiration Date V isits Requested Visits Authorized [id number] Authorized 12/20/2023 06/20/2025 1 1 Scheduling Instructions Please schedule this patient for a follow up phone visit on March 21. No need to call it can just be added to my calendar. Encounter Details Date Type Department Care Team (Late st Contact Info) Description 12/20/2023 Orders Only Department of Nicotine Dependence, [facility], in [place], [place] [address] [place] [phone] Sudha Bernstein M.A., AvelIPetrosC.S.W., M.S.W. [address] [place] [phone] Social History Tobacco Use Types Packs/Day Years Used Date Smoking Tobacco: Every Day Cigarettes 0.5 40.9 Started: 02/11/1983 Passive Smoke Exposure: Never Smokeless Tobacco: Never Alcohol Use Standard Drinks/Week Comments Not Currently 0 (1 standard drink = 0.6 oz pur e alcohol) [facility] Utilities Answer Date Recorded In [...] your living situation today? I have a [facility] place to live 10/15/2023 Sex and Gender Information Value Date Recorded Sex Assigned at Female 10/06/2023 10:50 AM SUPERVISOR PAYROLL Gender Identity Female 10/06/2023 10:50 AM SUPERVISOR PAYROLL Sexual Orientation Straight 10/06/2023 10 :50 AM SUPERVISOR PAYROLL documented as of this encounter Plan of Treatment Upcoming Encounters Date Type Department Care Team (Late st Contact Info) Description 01/19/2024 10:00 AM CDT Telemedicine Department of Nutrition and Diabetes Education in [place], [place] [address] [place] [phone] Katja Umana M.D. [address] [place] [phone] Taty Cunningham M.S., RDN, LD [address] [place] [phone] 02/04/2024 2:15 PM CDT Appointment Division of Gastroenterology in [address] [phone] Katja Umana M.D. [address] [place] [phone] Hayden Smith M.D. [address] [place] [phone] 03/21/2024 1:00 PM CDT Virtual Visit Department of Nicotine Dependence, [facility] in [address] [phone] Scheduled Referrals Name Type Priority Associated Diagnoses Order Schedule Nicotine Dependence office visit (clinic) Outpatient Referral Routine Expected: 03/21/2024, Expires: 03/20/2025 documented as of this encounter Visit Diagnoses Not on filedocumented in this encounter Additional Health Concerns Assessment Noted Time PHQ-9 Depression Total Score: 3 10/20/19 24 7:30 AM SUPERVISOR PAYROLL documented as of this encounter Care Teams Sports Coordinator Relationship Specialty Start Date End Date Elsewhere, Pcp PCP - General Family Medicine 12/07/23 documented as of this encounter
--- OUTSIDE RECORDS SUMMARY | 2024-01-11 10:28 | XMS_ITS | Encounter Summary ---
Author Name Unknown Organization [facility] Address [address] [place] [address] Care Team Providers Care Speed Belt Sander Name Role Phone Unavailable Primary Care Provider Unavailabl e Reason for Visit * Reason Onset Date Comments NDC Med Request 11/11/2023 Encounter Details Date Type Department Care Team (Latest Contact Info) Description 11/11/2023 Clinical Communication Department of Nicotine Dependence, [facility], in [place], [place] [address] [place] [address] Sudha Bernstein M.A., L.I.C.S.W., M.S.W. [address] [place] [phone] NDC Med Request Social History Tobacco Use Types Packs/Day Years Used Date Smoking Tobacco: Every Day Cigarettes 0.5 40 Smokeless Tobacco: Never Alcohol Use Standard Drinks/Week Comments Not Currently 0 (1 standard drink = 0.6 oz pur e alcohol) [facility] Utilities Answer Date Recorded In the past 12 months has [employer], gas, oil, or water [employer] threatened to shut off services in your [...] Date Recorded Employment status Working with temporary [employer] 10/15/2023 Housing Stability Answer Date Recorded What is your living situation today? I have a [facility] place to live 10/15/2023 Sex and Gender Information Value Date Recorded Sex Assigned at Female 10/06/2023 10:50 AM PRODUCT MARKETING SPECIALIST Gender Identity Female 10/06/2023 10:50 AM PRODUCT MARKETING SPECIALIST Sexual Orientation Straight 10/06/2023 10 :50 AM PRODUCT MARKETING SPECIALIST documented as of this encounter Miscellaneous Notes * Telephone Encounter - Sudha Bernstein M.A., L.I.C.S.W., M.S.W. - 11/11/2023 11:39 AM CST Sandra, this patient is interested in having a prescription sent to [facility] in [place], [place] for the following if appropriate after [...] if you have any questions. Thank you. UCT MARKETING SPECIALIST documented in this encounter Plan of Treatment Upcoming Encounters Date Type Department Care Team (Late st Contact Info) Description 01/19/2024 10:00 AM CDT Telemedicine Department of Nutrition and Diabetes Education in [place], [place] [address] [place] [phone] Katja Umana M.D. [address] [place] [phone] Taty Cunningham M.S., RDN, LD [address] [place] [phone] 02/04/2024 2:15 PM CDT Appointment Division of Gastroenterology in [place], [place] [address] [place] [phone] Katja Umana M.D. [address] [place] [phone] Hayden Smith M.D. [address] [place] [phone] 03/21/2024 1:00 PM CDT Virtual Visit Department of Nicotine Dependence, [facility], in [place], [place] [address] [place] [phone] documented as of this encounter Visit Diagnoses Not on filedocumented in this encounter Additional Health Concerns Assessment Noted Time PHQ-9 Depression Total Score: 3 10/20/19 24 7:30 AM PRODUCT MARKETING SPECIALIST documented as of this encounter
--- OUTSIDE RECORDS SUMMARY | 2024-01-11 10:28 | XMS_ITS | Encounter Summary ---
Author Name Unknown Organization [facility] Address [address] [place] [address] Care Team Providers Care Eastern Philosophy Professor Name Role Phone Unavailable Primary Care Provider Unavailabl e Reason for Referral * Outpatient (Routine) - Closed Specialty Diagnoses / Procedures Referred By Dotty t Referred To Contact Nicotine Dependence Sudha Bernstein M.A., DonnS.Tom, M.S.W. [address] [place] [phone] [facility] Referral ID Status Reason Start Date Expiration Date Visits Re quested Visits Authorized [id number] Closed 11/11/2023 05/12/2025 1 1 Scheduling Instructions Please schedule a follow up phone visit at 11:00am, CULTURE RESEARCH DIRECTOR Encounter Details Date Type Department Care Team (Late st Contact Info) Description 11/11/2023 Orders Only Department of Nicotine Dependence, [facility] in [place], [place] [address] [place] [phone] Sudha Bernstein M.A., Edwin.S.W., M.S.W. [address] [place] [phone] Social History Tobacco Use Types Packs/Day Years Used Date Smoking Tobacco: Every Day Cigarettes 0.5 40 Smokeless Tobacco: Never Alcohol Use Standard Drinks/Week Comments Not Currently 0 (1 standard drink = 0.6 oz pur e alcohol) [facility] Utilities Answer Date Recorded In the past 12 months has th e [employer], gas, oil, or water company threatened to [...] Sex Assigned at Female 10/06/2023 10:50 AM AGRICULTURE RESEARCH DIRECTOR Gender Identity Female 10/06/2023 10:50 AM AGRICULTURE RESEARCH DIRECTOR Sexual Orientation Straight 10/06/2023 10 :50 AM AGRICULTURE RESEARCH DIRECTOR documented as of this encounter Plan of Treatment Upcoming Encounters Date Type Department Care Team (Late st Contact Info) Description 01/19/2024 10:00 AM CDT Telemedicine Department of Nutrition and Diabetes Education in [place], [place] [address] [place] [phone] Katja Umana M.D. [address] [place] [phone] Taty Cunningham M.S., RDN, LD [address] [place] [phone] 02/04/2024 2:15 PM CDT Appointment Division of Gastroenterology in [place], [place] [address] [place] [phone] Katja Umana M.D. [address] [place] [phone] Hayden Smith M.D. [address] [place] [phone] 03/21/2024 1:00 PM CDT Virtual Visit Department of Nicotine Dependence, [facility], in [place], [place] [address] [place] [phone] Scheduled Referrals Name Type Priority Associated Diagnoses Order Schedule Nicotine Dependence office visit (clinic) Outpatient Referral Routine Expected: 11/18/2023, Expires: 02/08/2025 documented as of this encounter Visit Diagnoses Not on filedocumented in this encounter Additional Health Concerns Assessment Noted Time PHQ-9 Depression Total Score: 3 10/20/19 24 7:30 AM AGRICULTURE RESEARCH DIRECTOR documented as of this encounter
--- OUTSIDE RECORDS SUMMARY | 2024-01-11 10:28 | XMS_ITS | Encounter Summary ---
Author Name Unknown Organization [facility] Address [address] [place] [address] Care Team Providers Care Sample Mounter Name Role Phone Elsewhere, Pcp Primary Care Provider Unavailabl e Reason for Referral * Outpatient (Routine) - Authorized Specialty Diagnoses / Procedures Referred By Dotty t Referred To Contact Diagnoses Ascites Procedures US Paracentesis with Imaging Guidance Katja Umana M.D. [address] [place] [phone] [facility] Referral ID Status Reason Start Date Expiration Date V isits Requested Visits Authorized [id number] Authorized 11/23/2023 11/22/2024 1 1 Reason for Visit * Reason Onset Date Comments Order Request 11/22/2023 Encounter Details Date Type Department Care Team (Latest Contact Info) Description 11/22/2023 Clinical Communication Division of Gastroenterology in [place], [place] 200 [place] [phone] Katja Umana M.D. [address] [place] [phone] Order Request Social History Tobacco Use Types [...] Date Recorded Employment status Working with temporary [employer] t[employer] 10/15/2023 Housing Stability Answer Date Recorded What is your living situation today? I have a [facility] place to live 10/15/2023 Sex and Gender Information Value Date Recorded Sex Assigned at Female 10/06/2023 10:50 AM ORACLE FINANCIALS DEVELOPER Gender Identity Female 10/06/2023 10:50 AM ORACLE FINANCIALS DEVELOPER Sexual Orientation Straight 10/06/2023 10 :50 AM ORACLE FINANCIALS DEVELOPER documented as of this encounter Plan of Treatment Upcoming Encounters Date Type Department Care Team (Late st Contact Info) Description 01/19/2024 10:00 AM CDT Telemedicine Department of Nutrition and Diabetes Education in [place], [place] [address] [place] [phone] Katja Umana M.D. [address] [place] [phone] Taty Cunningham M.S., RDN, LD [address] [place] [phone] 02/04/2024 2:15 PM CDT Appointment Division of Gastroenterology in [place], [place] [address] [place] [phone] Katja Umana M.D. [address] [place] [phone] Hayden Smith M.D. [address] [place] [phone] 03/21/2024 1:00 PM CDT Virtual Visit Department of Nicotine Dependence, [facility], in [place], [place] [address] [place] [phone] Scheduled Orders Name Type Priority Associated Diagnoses Order Schedule US Paracentesis with Imaging Guidance Imaging RAD - Routine (most inpatients and all outpatients) Ascites Expected: 12/03/2023, Expires: 02/22/2025 documented as of this encounter Visit Diagnoses Diagnosis Ascites- Primary documented in this encounter Additional Health Concerns Assessment Noted Time PHQ-9 Depression Total Score: 3 10/20/19 24 7:30 AM ORACLE FINANCIALS DEVELOPER documented as of this encounter Care Teams Sample Mounter Relationship Specialty Start Date End Date Elsewhere, Pcp PCP - General Family Medicine 12/07/23 documented as of this encounter
--- OUTSIDE RECORDS SUMMARY | 2024-01-11 10:28 | XMS_ITS | Encounter Summary ---
Author Name Unknown Organization [facility] Address [address] [place] [address] Care Team Providers Care Cementer Hand Name Role Phone Elsewhere, Pcp Primary Care Provider Unavailabl e Reason for Referral * Outpatient (Routine) - Authorized Specialty Diagnoses / Procedures Referred By Contac t Referred To Contact Diagnoses Alcoholic Cirrhosis Of Liver With Ascites (HCC) Ascites Procedures US Paracentesis with Imaging Guidance Katja Umana M.D. 200 [place] [phone] [facility] Referral ID Status Reason Start Date Expiration Date V isits Requested Visits Authorized [id number] Authorized 12/09/2023 12/08/2024 8 8 Reason for Visit * Outpatient (Routine) - Authorized Specialty Diagnoses / Procedures Referred By Dotty oakes Referred To Contact Diagnoses Alcoholic Cirrhosis Of Liver With Ascites (HCC) Ascites Procedures US Paracentesis with Imaging Guidance Katja Umana M.D. 200 [place] [phone] [facility] Referral ID Status Reason Start Date Expiration Date V isits Requested Visits Authorized [id number] Authorized 12/09/2023 12/08/2024 8 8 Encounter Details Date Type Department Care Team (Latest Contact Info) Description 12/16/2023 9:34 AM CDT - 12/16/2023 11:22 AM CDT Hospital Encounter Department of Radiology, [facility], in [place], [place] [address] [place] [phone] Katja Umana M.D. [address] [place] [phone] Alcoholic Cirrhosis Of Liver With Ascites (HCC); [...] your living situation today? I have a [facility] place to live 10/15/2023 Sex and Gender Information Value Date Recorded Sex Assigned at Female 10/06/2023 10:50 AM GROUP SALES MANAGER Gender Identity Female 10/06/2023 10:50 AM GROUP SALES MANAGER Sexual Orientation Straight 10/06/2023 10 :50 AM GROUP SALES MANAGER documented as of this encounter Last Filed [...] be sent through Care Everywhere. * Paracentesis (French) documented in this encounter Medications at Time [...] Department of Nutrition and Diabetes Education in [place], [place] [address] [place] [phone] Katja Umana M.D. [address] [place] [phone] Taty Cunningham M.S., RDN, LD [address] [place] [phone] 02/04/2024 2:15 PM CDT Appointment Division of Gastroenterology in [place], [place] [address] [place] [phone] Katja Umana M.D. [address] [place] [phone] Hayden Smith M.D. [address] [place] [phone] 03/21/2024 1:00 PM CDT Virtual Visit Department of Nicotine Dependence, [facility], in [place], [place] [address] [place] [phone] documented as of this encounter Procedures Procedure [...] Total Score: 3 10/20/19 24 7:30 AM GROUP SALES MANAGER documented as of this encounter Care Teams Cementer Hand Relationship Specialty Start Date End Date Elsewhere, Pcp PCP - General Family Medicine 12/07/23 documented as of this encounter
--- OUTSIDE RECORDS SUMMARY | 2024-01-11 10:28 | XMS_ITS | Encounter Summary ---
Author Name Unknown Organization [facility] Address [address] [place] [address] Care Team Providers Care Probation Officer Name Role Phone Elsewhere, Pcp Primary Care Provider Unavailabl e Reason for Visit * Outpatient (Routine) - Closed Specialty Diagnoses / Procedures Referred By Dotty t Referred To Contact Preventive Medicine Diagnoses Alcoholic Cirrhosis Of Liver With Ascites (HCC) Katja Umana M.D. [address] [place] [phone] [facility] Referral ID Status Reason Start Date Expiration Date Visits Re quested Visits Authorized [id number] Closed 10/15/2023 04/15/2025 1 1 Encounter Details Date Type Department Care Team (Latest Contact Info) Description 12/08/2023 10:30 AM CDT Comprehensive Visit Section of Infectious Diseases in [place], [place] [address] [place] [phone] Katja Umana M.D. [address] [place] [phone] Brianna Anglin APRN, C.N.P., D.N.P. [address] [place] [phone] Counseling And Review Vaccination Status (Primary [...] your living situation today? I have a [facility] place to live 10/15/2023 Sex and Gender Information Value Date Recorded Sex Assigned at Female 10/06/2023 10:50 AM RESTAURANT MANAGING PARTNER Gender Identity Female 10/06/2023 10:50 AM RESTAURANT MANAGING PARTNER Sexual Orientation Straight 10/06/2023 10 :50 AM RESTAURANT MANAGING PARTNER documented as of this encounter Patient Instructions [...] followed by the Hepatobiliary team here at [facility]. They have requested for patient to be [...] Department of Nutrition and Diabetes Education in [place], [place] [address] [place] [phone] Katja Umana M.D. [address] [place] [phone] Taty Cunningham M.S., RDN, LD [address] [place] [phone] 02/04/2024 2:15 PM CDT Appointment Division of Gastroenterology in [place], [place] [address] [place] [phone] Katja Umana M.D. [address] [place] [phone] Hayden Smith M.D. 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
--- OUTSIDE RECORDS SUMMARY | 2024-01-11 10:28 | XMS_ITS | Encounter Summary ---
Author Name Unknown Organization [facility] Address [address] [place] [address] Care Team Providers Care Optical Glass Silverer Name Role Phone Elsewhere, Pcp Primary Care Provider Unavailabl e Reason for Visit * Reason Onset Date Comments Pre-visit Intake 12/07/2023 Encounter Details Date Type Department Care Team (Latest Contact Info) Description 12/07/2023 1:45 PM CDT Clinical Communication Virtual Review in [place], [place] 200 [place] [phone] Pre-visit Intake Social History Tobacco Use Types Packs/Day Years Used Date Smoking Tobacco: Every Day Cigarettes 0.5 40.9 Started: 02/11/1983 Passive Smoke Exposure: Never Smokeless Tobacco: Never Alcohol Use Standard Drinks/Week Comments Not Currently 0 (1 standard drink = 0.6 oz pur e alcohol) [facility] Utilities Answer Date Recorded In the [...] Date Recorded Employment status Working with temporary [employer] tions 10/15/2023 Housing Stability Answer Date Recorded What is your living situation today? I have a [facility] place to live 10/15/2023 Sex and Gender Information Value Date Recorded Sex Assigned at Female 10/06/2023 10:50 AM GENDER STUDIES PROFESSOR Gender Identity Female 10/06/2023 10:50 AM GENDER STUDIES PROFESSOR Sexual Orientation Straight 10/06/2023 10 :50 AM GENDER STUDIES PROFESSOR documented as of this encounter Plan of Treatment Upcoming Encounters Date Type Department Care Team (Late st Contact Info) Description 01/19/2024 10:00 AM CDT Telemedicine Department of Nutrition and Diabetes Education in [place], [place] [address] [place] [phone] Katja Umana M.D. 200 [place] [phone] Taty Cunningham M.S., RDN, LD 200 [place] [phone] 02/04/2024 2:15 PM CDT Appointment Division of Gastroenterology in [place], [place] [address] [place] [phone] Katja Umana M.D. 200 [place] [phone] Hayden Smith M.D. [address] [place] [phone] 03/21/2024 1:00 PM CDT Virtual Visit Department of Nicotine Dependence, [facility], in [place], [place] [address] [place] [phone] documented as of this encounter Visit Diagnoses Not on filedocumented in this encounter Additional Health Concerns Assessment Noted Time PHQ-9 Depression Total Score: 3 10/20/19 24 7:30 AM GENDER STUDIES PROFESSOR documented as of this encounter Care Teams Optical Glass Silverer Relationship Specialty Start Date End Date Elsewhere, Pcp PCP - General Family Medicine 12/07/23 documented as of this encounter
--- OUTSIDE RECORDS SUMMARY | 2024-01-11 10:28 | XMS_ITS | Encounter Summary ---
Author Name Unknown Organization [facility] Address [address] [place] [address] Care Team Providers Care Soils Analyst Name Role Phone Elsewhere, Pcp Primary Care Provider Unavailabl e Reason for Referral * Outpatient (Routine) - Authorized Specialty Diagnoses / Procedures Referred By Contac t Referred To Contact Nutrition Diagnoses Alcoholic Cirrhosis Of Liver With Ascites (HCC) Sarcopenia Katja Umana M.D. 200 [place] [phone] [facility] Referral ID Status Reason Start Date Expiration Date V isits Requested Visits Authorized [id number] Authorized 12/09/2023 06/09/2025 1 1 * Outpatient (Routine) - Authorized Specialty Diagnoses / Procedures Referred By Contac t Referred To Contact Diagnoses Alcoholic Cirrhosis Of Liver With Ascites (HCC) Ascites Procedures US Paracentesis with Imaging Guidance Katja Umana M.D. 200 [place] [phone] [facility] Referral ID Status Reason Start Date Expiration Date V isits Requested Visits Authorized [id number] Authorized 12/09/2023 12/08/2024 8 8 Reason for Visit * Outpatient (Routine) - Closed Specialty Diagnoses / Procedures Referred By Contact Referred To Contact Gastroenterology and Hepatology Katja Umana M.D. 200 [place] [phone] [facility] Referral ID Status Reason Start Date Expiration Date Visits Re quested Visits Authorized [id number] Closed 10/28/2023 04/28/2025 1 1 Encounter Details Date Type Department Care Team (Latest Contact Info) Description 12/09/2023 4:30 PM CDT Office Visit [facility] in [place], [place] [address] [place] [phone] Katja Umana M.D. [address] [place] [phone] Rose Palacios M.D. 200 [place] [phone] Alcoholic Cirrhosis Of Liver With Ascites (HCC) (Primary Dx); Ascites; Sarcopenia Social History Tobacco Use Types Packs/Day Years Used Date Smoking Tobacco: Every Day Cigarettes 0.5 40.9 Started: 02/11/1983 Passive Smoke Exposure: Never Smokeless Tobacco: Never Alcohol Use Standard Drinks/Week Comments Not Currently 0 (1 standard drink = 0.6 oz pur e alcohol) [facility] Utilities Answer Date Recorded In the past 12 months has th e [employer], gas, oil, or water [email or web address] threatened to shut off services in your [...] Date Recorded Employment status Working with temporary [employer] tions 10/15/2023 Housing Stability Answer Date Recorded What is your living situation today? I have a [facility] place to live 10/15/2023 Sex and Gender Information Value Date Recorded Sex Assigned at Female 10/06/2023 10:50 AM LOAD MANAGER Gender Identity Female 10/06/2023 10:50 AM LOAD MANAGER Sexual Orientation Straight 10/06/2023 10 :50 AM LOAD MANAGER documented as of this encounter Last [...] Mrs. Redmond was hospitalized locally from 12/02/2023-12/06/2023 ([facility]) for progressive fatigue and decreased exercise [...] last colonoscopy was performed in 2019 in [place]. I am not able to see this report. She is recommended to follow-up with her PCP for completing surveillance colonoscopy. If she is not able tocomplete this locally, then we can arrange for this to be done at [place]. All questions were answered. This plan will be discussed with Dr. Morales. BILLING: I personally spent over half of a total 35 minutes in counseling and discussion with the patient and coordination of care as described above. Signed: Katja Umana M.D. Gastroenterology and Hepatology Fellow Pager [phone] documented in this encounter Plan of Treatment Upcoming Encounters Date Type Department Care Team (Late st Contact Info) Description 01/19/2024 10:00 AM CDT Telemedicine Department of Nutrition and Diabetes Education in [place], [place] [address] [place] [address] Katja Umana M.D. [address] [place] [address] Taty Cunningham M.S., RDN, LD [address] [place] [phone] 02/04/2024 2:15 PM CDT Appointment Division of Gastroenterology in [place], [place] [address] [place] [phone] Katja Umana M.D. [address] [place] [phone] Hayden Smith M.D. [address] [place] [phone] 03/21/2024 1:00 PM CDT Virtual Visit Department of Nicotine Dependence, [facility], in [place], [place] [address] [place] [phone] Scheduled Referrals Name Type Priority Associated Diagnoses [...] Katja Umana M.D. LAB BLOOD ADD-ON [facility] [address] [place] [address], [facility] DTL [facility] [address] [place] [address] * (ABNORMAL) Comprehensive Metabolic Panel (12/09/2023 5:16 PM CDT) Pathologist [facility] Potassium, S 5.0 3.6 - 5.2 mmol/L [...] CDT Katja Umana M.D. LAB BLOOD ADD-ON [facility] [address] [place] [address], [facility] [address] [place] [address] * (ABNORMAL) CBC with Differential, Blood (12/09/2023 [...] Katja Umana M.D. LAB BLOOD ADD-ON [facility] [address] [place] [address], [facility] DTL [facility] [address] [place] [address] DHPM [facility] [address] [place] [address] documented in this encounter Visit Diagnoses Diagnosis Alcoholic Cirrhosis Of Liver With Ascites (HCC)- Primary Ascites Sarcopenia Alcoholic Cirrhosis Of Liver With Ascites (HCC) Ascites documented in this encounter Additional Health Concerns Assessment Noted Time PHQ-9 Depression Total Score: 3 10/20/19 24 7:30 AM LOAD MANAGER documented as of this encounter Care Teams Soils Analyst Relationship Specialty Start Date End Date Elsewhere, Pcp PCP - General Family Medicine 12/07/23 documented as of this encounter
--- OUTSIDE RECORDS SUMMARY | 2024-01-11 10:28 | XMS_ITS | Encounter Summary ---
Author Name Unknown Organization [facility] Address [address] [place] [address] Care Team Providers Care Foundry Worker Apprentice Name Role Phone Unavailable Primary Care Provider Unavailabl e Reason for Referral * Outpatient (Routine) - Closed Specialty Diagnoses / Procedures Referred By Contlulu t Referred To Contact Nicotine Dependence Sudha Bernstein M.A., DonnS.Tom, M.S.W. [address] [place] [phone] [facility] Referral ID Status Reason Start Date Expiration Date Visits Re quested Visits Authorized [id number] Closed 11/18/2023 05/19/2025 1 1 Scheduling Instructions Please schedule a follow up phone visit. RIVETER Encounter Details Date Type Department Care Team (Late st Contact Info) Description 11/18/2023 Orders Only Department of Nicotine Dependence, [facility] in [place], [place] [address] [place] [phone] Sudha Bernstein M.A., NubiaC.S.W., M.S.W. [address] [place] [phone] Social History Tobacco Use Types Packs/Day Years Used Date Smoking Tobacco: Every Day Cigarettes 0.5 40 Smokeless Tobacco: Never Alcohol Use Standard Drinks/Week Comments Not Currently 0 (1 standard drink = 0.6 oz pur e alcohol) [facility] Utilities Answer Date Recorded In the past 12 months has e electric, gas, oil, or water [employer] threatened to shut off services in your [...] Date Recorded Employment status Working with temporary [employer] tions 10/15/2023 Housing Stability Answer Date Recorded What is your living situation today? I have a [facility] place to live 10/15/2023 Sex and Gender Information Value Date Recorded Sex Assigned at Female 10/06/2023 10:50 AM CLIP RIVETER Gender Identity Female 10/06/2023 10:50 AM CLIP RIVETER Sexual Orientation Straight 10/06/2023 10 :50 AM CLIP RIVETER documented as of this encounter Plan of Treatment Upcoming Encounters Date Type Department Care Team (Late st Contact Info) Description 01/19/2024 10:00 AM CDT Telemedicine Department of Nutrition and Diabetes Education in [place], [place] [address] [place] [phone] Katja Umana M.D. [address] [place] [phone] Taty Cunningham M.S., RDN, LD [address] [place] [phone] 02/04/2024 2:15 PM CDT Appointment Division of Gastroenterology in [place], [place] [address] [place] [phone] Katja Umana M.D. [address] [place] [phone] Hayden Smith M.D. [address] [place] [phone] 03/21/2024 1:00 PM CDT Virtual Visit Department of Nicotine Dependence, [facility], in [place], [place] [address] [place] [phone] Scheduled Referrals Name Type Priority Associated Diagnoses Order Schedule Nicotine Dependence office visit (clinic) Outpatient Referral Routine Expected: 12/20/2023, Expires: 02/17/2025 documented as of this encounter Visit Diagnoses Not on filedocumented in this encounter Additional Health Concerns Assessment Noted Time PHQ-9 Depression Total Score: 3 10/20/19 24 7:30 AM CLIP RIVETER documented as of this encounter
--- OUTSIDE RECORDS SUMMARY | 2024-01-11 10:28 | XMS_ITS | Encounter Summary ---
Author Name Unknown Organization [facility] Address [address] [place] [address] Care Team Providers Care Leave Manager Name Role Phone Elsewhere, Pcp Primary Care Provider Unavailabl e Reason for Visit * Reason Comments Nicotine Dependence * Outpatient (Routine) - Closed Specialty Diagnoses / Procedures Referred By Contlulu t Referred To Contact Nicotine Dependence Sudha Bernstein M.A., Yesy.I.C.S.W., M.S.W. [address] [place] [phone] [facility] Referral ID Status Reason Start Date Expiration Date Visits Re quested Visits Authorized [id number] Closed 11/18/2023 05/19/2025 1 1 Encounter Details Date Type Department Care Team (Late st Contact Info) Description 12/20/2023 2:00 PM CDT Virtual Visit Department of Nicotine Dependence, [facility], in [place], [place] [address] [place] [phone] Sudha Bernstein M.A., L.I.C.S.W., M.S.W. [address] [place] [phone] Nicotine Dependence Cigarettes With Withdrawal (Primary Dx) Social History Tobacco Use Types Packs/Day Years Used Date Smoking Tobacco: Every Day Cigarettes 0.5 40.9 Started: 02/11/1983 Passive Smoke Exposure: Never Smokeless Tobacco: Never Alcohol Use Standard Drinks/Week Comments Not Currently 0 (1 standard drink = 0.6 oz pur e alcohol) [facility] Utilities Answer Date Recorded In the past 12 months has [employer], gas, oil, or water [employer] threatened to shut off services in your [...] Date Recorded Employment status Working with temporary [employer] tions 10/15/2023 Housing Stability Answer Date Recorded What is your living situation today? I have a [facility] place to live 10/15/2023 Sex and Gender Information Value Date Recorded Sex Assigned at Female 10/06/2023 10:50 AM HOGSHEAD LINER Gender Identity Female 10/06/2023 10:50 AM HOGSHEAD LINER Sexual Orientation Straight 10/06/2023 10 :50 AM HOGSHEAD LINER documented as of this encounter Progress Notes * Sudha Bernstein M.A., L.I.C.S.W., M.S.W. - 12/20/2023 2:00 PM CDT OBJECTIVE Monique Yvonne Norgaard attended a phone follow-up appointment regarding her tobacco use. ASSESSMENT [facility] staff contacted the patient as a follow [...] patient was asked if she would like [facility] staff to contact her in the future [...] Department of Nutrition and Diabetes Education in [place], [place] [address] [place] [phone] Katja Umana M.D. [address] [place] [phone] Taty Cunningham M.S., RDN, LD [address] [place] [phone] 02/04/2024 2:15 PM CDT Appointment Division of Gastroenterology in [place], [place] [address] [place] [phone] Katja Umana M.D. [address] [place] [phone] Hayden Smith M.D. [address] [place] [phone] 03/21/2024 1:00 PM CDT Virtual Visit Department of Nicotine Dependence, [facility], in [place], [place] [address] [place] [phone] documented as of this encounter Visit Diagnoses Diagnosis Nicotine Dependence Cigarettes With Withdrawal- Primary documented in this encounter Additional Health Concerns Assessment Noted Time PHQ-9 Depression Total Score: 3 10/20/19 24 7:30 AM HOGSHEAD LINER documented as of this encounter Care Teams Leave Manager Relationship Specialty Start Date End Date Elsewhere, Pcp PCP - General Family Medicine 12/07/23 documented as of this encounter
--- OUTSIDE RECORDS SUMMARY | 2024-01-11 10:28 | XMS_ITS | Encounter Summary ---
Author Name Unknown Organization [facility] Address [address] [place] [address] Care Team Providers Care Chainer Name Role Phone Unavailable Primary Care Provider Unavailabl e Reason for Referral * Outpatient (Routine) - Closed Specialty Diagnoses / Procedures Referred By Delgadoac t Referred To Contact Diagnoses Ascites Procedures US Paracentesis with Imaging Guidance Felipe Morales M.D. [address] [place] [phone] [facility] Referral ID Status Reason Start Date Expiration Date Visits Re quested Visits Authorized [id number] Closed 10/11/2023 10/10/2024 1 1 S MACHINE OPERATOR Reason for Visit * Outpatient (Routine) - Closed Specialty Diagnoses / Procedures Referred By Dotty oakes Referred To Contact Diagnoses Ascites Procedures US Paracentesis with Imaging Guidance Felipe Morales M.D. 200 [place] [phone] [facility] Referral ID Status Reason Start Date Expiration Date Visits Re quested Visits Authorized [id number] Closed 10/11/2023 10/10/2024 1 1 Encounter Details Date Type Department Care Team (Latest Contact Info) Description 11/19/2023 10:08 AM OAKES MACHINE OPERATOR - 11/19/2023 12:51 PM OAKES MACHINE OPERATOR Hospital Encounter Department of Radiology, [facility], in [place], [place] [address] [place] [phone] Felipe Morales M.D. [address] [place] [phone] Ascites Discharge Disposition: Home or Self Care Social History Tobacco Use Types Packs/Day Years Used Date Smoking Tobacco: Every Day Cigarettes 0.5 40 Smokeless Tobacco: Never Alcohol Use Standard Drinks/Week Comments Not Currently 0 (1 standard drink = 0.6 oz pur e alcohol) [facility] Utilities Answer Date Recorded In the past 12 months has th e [employer], gas, oil, or water company threatened to [...] today? I have a [facility] place to live 10/15/2023 Sex and Gender Information Value Date Recorded Sex Assigned at Female 10/06/2023 10:50 AM OAKES MACHINE OPERATOR Gender Identity Female 10/06/2023 10:50 AM OAKES MACHINE OPERATOR Sexual Orientation Straight 10/06/2023 10 :50 AM OAKES MACHINE OPERATOR documented as of this encounter Last Filed Vital Signs Vital Sign Reading Time Taken Comments Blood Pressure 91/46 11/19/2023 11:45 AM OAKES MACHINE OPERATOR Pulse 84 11/19/2023 11:45 AM OAKES MACHINE OPERATOR Temperature - - Respiratory Rate - - Oxygen Saturation 100% 11/19/2023 11:45 AM OAKES MACHINE OPERATOR Inhaled Oxygen Concentration - - [...] Department of Nutrition and Diabetes Education in [place], [place] [address] [place] [phone] Katja Umana M.D. [address] [place] [phone] Taty Cunningham M.S., RDN, LD [address] [place] [phone] 02/04/2024 2:15 PM CDT Appointment Division of Gastroenterology in [place], [place] [address] [place] [phone] Katja Umana M.D. [address] [place] [phone] Hayden Smith M.D. [address] [place] [phone] 03/21/2024 1:00 PM CDT Virtual Visit Department of Nicotine Dependence, [facility], in [place], [place] [address] [place] [phone] Scheduled Orders Name Type Priority Associated Diagnoses Order Schedule Bacterial Culture, Aerobic + Susceptibility Microbiology Timed Ascites For manual release during upcoming procedure for 1 Occurrences starting 11/19/2023 until 11/19/2023 documented as of this encounter Procedures Procedure Name Priority Date/Time Associated Diagnosis Comments US PARACENTESIS WITH IMAGING GUIDANCE RAD - Routine (most inpatients and all outpatients) 11/19/2023 11:55 AM OAKES MACHINE OPERATOR Ascites BACTERIAL CULTURE, AEROBIC + SUSC Timed 11/19/2023 10:50 AM OAKES MACHINE OPERATOR Ascites CELL COUNT AND DIFFERENTIAL, BF Timed 11/19/2023 10:50 AM OAKES MACHINE OPERATOR Ascites documented in this encounter Results * US Paracentesis with Imaging Guidance (11/19/2023 11:55 AM OAKES MACHINE OPERATOR) Anatomical Region Laterality Modality Abdomen, Ultrasound RST LOS, Ultrasound ARZ LOS, Procedure FLA LOS, Abdominal FLA LOS, Procedural, Procedural NWWI LOS N/A Ultrasound Impressions 11/19/2023 12:26 PM OAKES MACHINE OPERATOR Ultrasound-guided paracentesis. EP Narrative 11/19/2023 12:26 PM OAKES MACHINE OPERATOR EXAM: US PARACENTESIS WITH IMAGING [...] Culture, Aerobic + Susceptibility (11/19/2023 10:50 AM OAKES MACHINE OPERATOR) Bacterial Culture, Aerobic + Susc No growth after 5 days of incubation. 11/24/2023 8:27 AM CDT DTL Fluid (Peritoneal Fluid) 11/19/2023 10:50 AM OAKES MACHINE OPERATOR Narrative [facility] - 11/24/2023 8:27 AM CDT Bacterial Culture: Received Bactec aerobic and Bactec anaerobic bottles Felipe Morales M.D. LAB MICROBIOLOGY - GENERAL ORDERABLES [facility] [address] DTL [facility] [address] [place] [address] * Cell Count and Differential, Body Fluid (11/19/2023 10:50 AM OAKES MACHINE OPERATOR) Fluid Type Peritoneal /Paracente sis 11/19/2023 12:39 PM OAKES MACHINE OPERATOR [facility]PM Gross Appearance Serous 11/19/19 24 12:39 PM OAKES MACHINE OPERATOR DHPM Total Nucleated Cells 201 /mcL 11/19/2023 12:39 PM OAKES MACHINE OPERATOR [facility] Comment: ----REFERENCE VALUE---- Synovial: <150 /mcL Peritoneal: <500 /mcL Pleural: <500 /mcL Pericardial: <500 /mcL ----ADDITIONAL INFORMATION---- This test has been modified from the safety patrol officer's instructions. Its performance characteristics were determined by [facility] in a manner consistent with CLIA requirements. This test has not been cleared or approved by the U.S. Food and Drug Administration. Neutrophils 20 % 11/19/2023 1:42 PM OAKES MACHINE OPERATOR [facility] Comment: ----REFERENCE VALUE---- Synovial: <25% Peritoneal: <25% Pleural: <25% Pericardial: <25% Lymphocytes 16 Synovial <75% % 11/19/2023 1:42 PM OAKES MACHINE OPERATOR DHPM Monocytes/Macropha ges 60 Synovial <70% % 11/19/2023 1:42 PM OAKES MACHINE OPERATOR DHPM Other Cells 4 % 11/19/2023 1:42 PM OAKES MACHINE OPERATOR [facility] Comment: ----REFERENCE VALUE---- The reference range and other method performance specifications have not been established for this bodyfluid. The test result must be integrated into the clinical context for interpretation. Other Cells Are: See Comment 11/19/2023 1:42 PM OAKES MACHINE OPERATOR [facility] Comment:Mesothelial cells Comment See Comment 11/19/2023 1:42 PM OAKES MACHINE OPERATOR [facility]PM Comment:No blasts or maligna nt cells seen. Reviewed by: Jose 11/19/2023 1:42 PM OAKES MACHINE OPERATOR [facility]PM Fluid (Peritoneal Fluid) 11/19/2023 10:50 AM OAKES MACHINE OPERATOR Felipe Morales M.D. LAB BODY FLUIDS AND STOOLS ORDERABLES [facility] [address] [place] [address], [facility] [address] [place] [address] documented in this encounter Visit Diagnoses Diagnosis [...] provider's discretion) New Bag 11/19/2023 11:11 AM OAKES MACHINE OPERATOR 50 g 100 mL/hr lidocaine 10 mg/mL (1 %) injection (XYLOCAINE) As needed, Starting on Wed11/19/23 at 1056, Intra-Op Given 11/19/2023 10:56 AM OAKES MACHINE OPERATOR 5 mL Abdominal Tissue documented in this encounter Active and Recently Administered Medications Times are shown in OAKES MACHINE OPERATOR. Scheduled Medication Order 11/17/2023 11/18/2023 11/19/2023 albumin [...] Total Score: 3 10/20/19 24 7:30 AM OAKES MACHINE OPERATOR documented as of this encounter
--- OUTSIDE RECORDS SUMMARY | 2024-01-11 10:29 | XMS_ITS | Encounter Summary ---
Author Name Unknown Organization [facility] Address [address] [place] [address] Care Team Providers Care Technical Cable Jointer Name Role Phone Unavailable Primary Care Provider Unavailabl e Encounter Details Date Type Department Care Team (Latest Contact Info) Description 10/27/2023 10:26 AM PORTABLE FEED MILL OPERATOR - 10/27/2023 11:59 PM PORTABLE FEED MILL OPERATOR Hospital Encounter Department of Laboratory Medicine in [address] [phone] Katja Umana M.D. [address] [place] [phone] Alcoholic Cirrhosis Of Liver With Ascites (HCC); Alcohol Moderate Or Severe Use Disorder (Dependence) Uncomplicated (HCC) Discharge Disposition: Home or Self Care Social History Tobacco Use Types Packs/Day Years Used Date Smoking Tobacco: Every Day Cigarettes 0.5 40 Smokeless Tobacco: Never Alcohol Use Standard Drinks/Week Comments Not Currently 0 (1 standard drink = 0.6 oz pur e alcohol) [facility] Utilities Answer Date Recorded In the past 12 months has e [employer], gas, oil, or water [employer] threatened to shut off services in your [...] Date Recorded Employment status Working with temporary [employer] 10/15/2023 Housing Stability Answer Date Recorded What is your living situation today? I have a [facility] place to live 10/15/2023 Sex and Gender Information Value Date Recorded Sex Assigned at Female 10/06/2023 10:50 AM PORTABLE FEED MILL OPERATOR Gender Identity Female 10/06/2023 10:50 AM PORTABLE FEED MILL OPERATOR Sexual Orientation Straight 10/06/2023 10 :50 AM PORTABLE FEED MILL OPERATOR documented as of this encounter Medications [...] Department of Nutrition and Diabetes Education in [place], [place] [address] [place] [phone] Katja Umana M.D. [address] [place] [phone] Taty Cunningham M.S., RDN, LD [address] [place] [phone] 02/04/2024 2:15 PM CDT Appointment Division of Gastroenterology in [place], [place] [address] [place] [phone] Katja Umana M.D. [address] [place] [phone] Hayden Smith M.D. [address] [place] [phone] 03/21/2024 1:00 PM CDT Virtual Visit Department of Nicotine Dependence, [facility] in [address] [phone] documented as of this encounter Procedures Procedure Name Priority Date/Time Associated Diagnosis Comments PHOSPHATIDYLETHANOL CONFIRMATION, B Routine 10/27/2023 10:33 AM PORTABLE FEED MILL OPERATOR Alcohol Moderate Or Severe Use Disorder (Dependence) Uncomplicated (HCC) BASIC METABOLIC PANEL, S/P Routine 10/27 10:33 AM PORTABLE FEED MILL OPERATOR Alcoholic Cirrhosis Of Liver With Ascites (HCC) documented in this encounter Results * Phosphatidylethanol Confirmation (10/27/2023 10:33 AM PORTABLE FEED MILL OPERATOR) [facility] 16:0/18:1 (POPEth) by LC-MS/MS <20 Cutoff: 10 ng/mL 10/29/2023 8:22 PM PORTABLE FEED MILL OPERATOR [facility] Comment: Testing performed at a x2 [...] <10 Cutoff: 10 ng/mL 10/29/2023 8:22 PM [facility] Comment: PEth 16:0/18:2 (PLPEth) Reference ranges are not well established PEth Interpretation Negative. 10/29 8:22 PM [facility] Comment: ----ADDITIONAL INFORMATION---- This report is intended for use in clinical monitoring and management of patients. ??It is not intended for use in employment-related testing. This test was developed and its performance characteristics determined by [facility] in a manner consistent with CLIA requirements. This test has not been cleared or approved by the U.S. Food and Drug Administration. Blood (Blood, Venous) 10/27/2023 10:33 AM PORTABLE FEED MILL OPERATOR 10/27/2023 9:57 PM PORTABLE FEED MILL OPERATOR Romana Diane M.D., Ph.D. LAB BLO OD ADD-ON [facility] [address] [place] [address] [facility] [address] [place] [address] [place] [address] * (ABNORMAL) Basic Metabolic Panel (10/27/2023 10:33 AM PORTABLE FEED MILL OPERATOR) [facility] Potassium, P 3.6 3.6 - 5.2 mmol/L 10/27/2023 10:57 AM PORTABLE FEED MILL OPERATOR [facility] Sodium, P 125(L) 135 - 145 mmol/L 10/27/2023 10:57 AM PORTABLE FEED MILL OPERATOR [facility] Chloride, P 92(L) 98 - 107 mmol/L 10/27/2023 10:57 AM PORTABLE FEED MILL OPERATOR [facility] Bicarbonate, P 21(L) 22 - 29 mmol/L 10/27/2023 10:57 AM PORTABLE FEED MILL OPERATOR [facility] Anion Gap, P 12 7 - 15 10/27/2023 10:57 AM PORTABLE FEED MILL OPERATOR [facility] BUN (Blood Urea Nitrogen), P 10 6 - 21 mg/dL 10/27/2023 10:57 AM PORTABLE FEED MILL OPERATOR [facility] Creatinine 0.47(L) 0.59 - 1.04 mg/dL 10/27/2023 10:57 AM PORTABLE FEED MILL OPERATOR [facility] Estimated GFR (eGFR) >90 >=60 mL/min/BSA 10/27/2023 10:57 AM PORTABLE FEED MILL OPERATOR [facility] Comment: Estimated GFR calculated using the 2020 CKD_EPI creatinine equation. Calcium, Total, P 8.4(L) 8.8 - 10.2 mg/dL 10/27/2023 10:57 AM PORTABLE FEED MILL OPERATOR [facility] Glucose, P 93 70 - 140 mg/dL 10/27/2023 10:57 AM PORTABLE FEED MILL OPERATOR [facility] Blood (Blood, Venous) 10/27/2023 10:33 AM PORTABLE FEED MILL OPERATOR 10/27/2023 10:36 AM PORTABLE FEED MILL OPERATOR Katja Umana M.D. LAB BLOOD ADD-ON [facility] [address] [place], [place] [id number], [facility] in [address] [address] documented in this encounter Visit Diagnoses Diagnosis Alcoholic Cirrhosis Of Liver With Ascites (HCC) Alcohol Moderate Or Severe Use Disorder (Dependence) Uncomplicated (HCC) documented in this encounter Additional Health Concerns Assessment Noted Time PHQ-9 Depression Total Score: 3 10/20/19 24 7:30 AM PORTABLE FEED MILL OPERATOR documented as of this encounter
--- OUTSIDE RECORDS SUMMARY | 2024-01-11 10:29 | XMS_ITS | Encounter Summary ---
Author Name Unknown Organization [facility] Address [address] [place] [address] Care Team Providers Care Fire Fighter Name Role Phone Unavailable Primary Care Provider Unavailabl e Reason for Referral * Outpatient (Routine) - Closed Specialty Diagnoses / Procedures Referred By Dotty oakes Referred To Contact Diagnoses Ascites Procedures US Paracentesis with Imaging Guidance Katja Umana M.D. [address] [place] [phone] [facility] Referral ID Status Reason Start Date Expiration Date Visits Re quested Visits Authorized [id number] Closed 10/18/2023 10/17/2024 1 1 AISAL SPECIALIST Encounter Details Date Type Department Care Team (Latest Contact Info) Description 10/18/2023 Clinical Communication Division of Gastroenterology in [place], [place] [address] [place] [phone] Katja Umana M.D. [address] [place] [phone] Social History Tobacco Use Types Packs/Day Years Used Date Smoking Tobacco: Every Day Cigarettes 0.5 40 Smokeless Tobacco: Never Alcohol Use Standard Drinks/Week Comments Not Currently 0 (1 standard drink = 0.6 oz pur e alcohol) [facility] Utilities Answer Date Recorded In the past [...] your living situation today? I have a [facility] place to live 10/15/2023 Sex and Gender Information Value Date Recorded Sex Assigned at Female 10/06/2023 10:50 AM APPRAISAL SPECIALIST Gender Identity Female 10/06/2023 10:50 AM APPRAISAL SPECIALIST Sexual Orientation Straight 10/06/2023 10 :50 AM APPRAISAL SPECIALIST documented as of this encounter Plan of Treatment Upcoming Encounters Date Type Department Care Team (Late st Contact Info) Description 01/19/2024 10:00 AM CDT Telemedicine Department of Nutrition and Diabetes Education in [place], [place] [address] [place] [phone] Katja Umana M.D. [address] [place] [phone] Taty Cunningham M.S., RDN, LD [address] [place] [phone] 02/04/2024 2:15 PM CDT Appointment Division of Gastroenterology in [place], [place] [address] [place] [phone] Katja Umana M.D. [address] [place] [phone] Hayden Smith M.D. [address] [place] [phone] 03/21/2024 1:00 PM CDT Virtual Visit Department of Nicotine Dependence, [facility], in [place], [place] [address] [place] [phone] documented as of this encounter Results * US Paracentesis with Imaging Guidance (10/22/2023 10:18 AM APPRAISAL SPECIALIST) Anatomical Region Laterality Modality Abdomen, Ultrasound RST LOS, Ultrasound ARZ LOS, Procedure FLA LOS, Abdominal FLA LOS, Procedural, Procedural NWWI LOS N/A Ultrasound Impressions 10/22/2023 10:26 AM APPRAISAL SPECIALIST Ultrasound-guided diagnostic and therapeutic paracentesis. NR Narrative 10/22/2023 10:26 AM APPRAISAL SPECIALIST EXAM: US PARACENTESIS WITH IMAGING GUIDANCE PRE-PROCEDURE: [...]
--- OUTSIDE RECORDS SUMMARY | 2024-01-11 10:29 | XMS_ITS | Encounter Summary ---
Author Name Unknown Organization [facility] Address [address] [place] [address] Care Team Providers Care Word Processing Specialist Name Role Phone Unavailable Primary Care Provider Unavailabl e Reason for Visit * Reason Comments Nicotine Dependence * Outpatient (Routine) - Closed Specialty Diagnoses / Procedures Referred By Contac t Referred To Contact Pulmonary Medicine / Nicotine Dependence Diagnoses Nicotine Dependence Cigarettes Romana Diane M.D., Ph.D. [address] [place] [phone] [facility] Referral ID Status Reason Start Date Expiration Date Visits Re quested Visits Authorized [id number] Closed 10/20/2023 04/20/2025 1 1 Encounter Details Date Type Department Care Team (Late st Contact Info) Description 10/28/2023 11:00 AM ACID LEVELER Virtual Visit Department of Nicotine Dependence, [facility], in [place], [place] [address] [place] [phone] Romana Diane M.D., Ph.D. [address] [place] [phone] Sudha Bernstein M.A., L.I.C.S.W., M.S.W. [address] [place] [phone] Nicotine Dependence Cigarettes Social History Tobacco Use Types Packs/Day Years Used Date Smoking Tobacco: Every Day Cigarettes 0.5 40 Smokeless Tobacco: Never Alcohol Use Standard Drinks/Week Comments Not Currently 0 (1 standard drink = 0.6 oz pur e alcohol) [facility] Utilities Answer Date Recorded In the [...] Sex Assigned at Female 10/06/2023 10:50 AM ACID LEVELER Gender Identity Female 10/06/2023 10:50 AM ACID LEVELER Sexual Orientation Straight 10/06/2023 10 :50 AM ACID LEVELER documented as of this encounter Consult Notes [...] medication being metabolized through the liver [facility] staff would need to discuss the patient's [...] two weeks. Patient was provided with [facility] educational materials electronically. . Patient is ready to learn, no apparant barriers to learning were identified. Patient understands and agrees with plan. 30 minutes of our visit was spent on tobacco use disorder counseling. Sudha Bernstein M.A., Sony, M.S.W. 10/28/2023 11:33 AM ACID LEVELER LEVELER documented in this encounter Plan of Treatment Upcoming Encounters Date Type Department Care Team (Late st Contact Info) Description 01/19/2024 10:00 AM CDT Telemedicine Department of Nutrition and Diabetes Education in [place], [place] [address] [place] [phone] Katja Umana M.D. [address] [place] [phone] Taty Cunningham M.S., RDN, LD [address] [place] [phone] 02/04/2024 2:15 PM CDT Appointment Division of Gastroenterology in [place], [place] [address] [place] [phone] Katja Umana M.D. [address] [place] [phone] Hayden Smith M.D. [address] [place] [address] [place] [phone] 03/21/2024 1:00 PM CDT Virtual Visit Department of Nicotine Dependence, [facility], in [place], [place] [address] [place] [phone] documented as of this encounter Visit Diagnoses Diagnosis Nicotine Dependence Cigarettes documented in this encounter Additional Health Concerns Assessment Noted Time PHQ-9 Depression Total Score: 3 10/20/19 24 7:30 AM ACID LEVELER documented as of this encounter
--- OUTSIDE RECORDS SUMMARY | 2024-01-11 10:29 | XMS_ITS | Encounter Summary ---
Author Name Unknown Organization [facility] Address [address] [place] [address] Care Team Providers Care Materials Management Manager Name Role Phone Unavailable Primary Care Provider Unavailabl e Reason for Visit * Reason Onset Date Comments Follow-up 10/09/2023 Encounter Details Date Type Department Care Team (Late st Contact Info) Description 10/09/2023 Nurse Triage Department of Family Medicine, [address] [phone] Katharine Domínguez R.N. Follow-up [...] Sex Assigned at Female 10/06/2023 10:50 AM PLUGMAN Gender Identity Female 10/06/2023 10:50 AM PLUGMAN Sexual Orientation Straight 10/06/2023 10 :50 AM PLUGMAN documented as of this encounter Miscellaneous Notes * Telephone Encounter - Katharine Domínguez R.N. - 10/09/2023 2:41 PM PLUGMAN Chief Complaint / Reason for Call Patient [...] procedure yesterday. Patient was warm transferred to [place] with switchboard to be placed on contact with provider convertible top installer for GI. Present for: Procedure completed yesterday Home cares tried: Dressing Changes Calling to request: Review of symptoms/Advice The recommended disposition is Other. MAN documented in this encounter Plan of Treatment Upcoming Encounters Date Type Department Care Team (Late st Contact Info) Description 01/19/2024 10:00 AM CDT Telemedicine Department of Nutrition and Diabetes Education in [place], [place] [address] [place] [phone] Katja Umana M.D. [address] [place] [phone] Taty Cunningham M.S., RDN, LD [address] [place] [phone] 02/04/2024 2:15 PM CDT Appointment Division of Gastroenterology in [place], [place] [address] [place] [phone] Katja Umana M.D. [address] [place] [phone] Hayden Smith M.D. [address] [place] [phone] 03/21/2024 1:00 PM CDT Virtual Visit Department of Nicotine Dependence, [facility], in [place], [place] [address] [place] [phone] documented as of this encounter Visit Diagnoses Not on filedocumented in this encounter
--- OUTSIDE RECORDS SUMMARY | 2024-01-11 10:29 | XMS_ITS | Encounter Summary ---
Author Name Unknown Organization [facility] Address [address] [place] [address] Care Team Providers Care Workforce Planner Name Role Phone Unavailable Primary Care Provider Unavailabl e Encounter Details Date Type Department Care Team (Latest Contact Info) Description 10/08/2023 3:20 PM FRONT OFFICE SPEC Ancillary Procedure Department of Gastroenterology Social History [...] Sex Assigned at Female 10/06/2023 10:50 AM FRONT OFFICE SPEC Gender Identity Female 10/06/2023 10:50 AM FRONT OFFICE SPEC Sexual Orientation Straight 10/06/2023 10 :50 AM FRONT OFFICE SPEC documented as of this encounter Plan of Treatment Upcoming Encounters Date Type Department Care Team (Late st Contact Info) Description 01/19/2024 10:00 AM CDT Telemedicine Department of Nutrition and Diabetes Education in [place], [place] [address] [place] [phone] Katja Umana M.D. [address] [place] [phone] Taty Cunningham M.S., RDN, LD [address] [place] [phone] 02/04/2024 2:15 PM CDT Appointment Division of Gastroenterology in [place], [place] [address] [place] [phone] Katja Umana M.D. [address] [place] [phone] Hayden Smith M.D. [address] [place] [phone] 03/21/2024 1:00 PM CDT Virtual Visit Department of Nicotine Dependence, [facility], in [place], [place] [address] [place] [phone] documented as of this encounter Procedures Procedure Name Priority Date/Time Associated Diagnosis Comments GASTROENTEROLOGY IMAGE EXAM Routine 10/08/2023 3:20 PM FRONT OFFICE SPEC documented in this encounter Results * Duodenum, Entire examined duodenum Upper GI endoscopy-Gastroenterology Image Exam (10/08/2023 3:20 PM FRONT OFFICE SPEC) 10/08/2023 3:17 PM FRONT OFFICE SPEC Narrative IIMS - 10/08/2023 3:57 PM FRONT OFFICE SPEC This order has been created and auto-finalized to support the import of images acquired without order. The clinical documentation to support these images can be found on the encounter that produced images. Provider Not In System IMG NON RAD IMAGI NG PROCEDURES [facility] NA documented in this encounter Visit Diagnoses Not on filedocumented in this encounter
--- OUTSIDE RECORDS SUMMARY | 2024-01-11 10:29 | XMS_ITS | Encounter Summary ---
Author Name Unknown Organization [facility] Address [address] [place] [address] Care Team Providers Care Washer Engineer Helper Name Role Phone Unavailable Primary Care Provider Unavailabl e Reason for Referral * Outpatient (Routine) - Closed Specialty Diagnoses / Procedures Referred By Contlulu t Referred To Contact Nicotine Dependence Sudha Bernstein M.A., DonnSChandrakant, M.S.W. [address] [place] [phone] [facility] Referral ID Status Reason Start Date Expiration Date Visits Re quested Visits Authorized [id number] Closed 10/28/2023 04/28/2025 1 1 Scheduling Instructions Please schedule this patient for a follow up phone visit. CTOR OF ACQUISITION MARKETING Encounter Details Date Type Department Care Team (Late st Contact Info) Description 10/28/2023 Orders Only Department of Nicotine Dependence, [facility] in [place], [place] [address] [place] [phone] Sudha Bernstein M.A., DonnS.W., M.S.W. 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 I have a christina place to live 10/15/2023 Sex and Gender Information Value Date Recorded Sex Assigned at Female 10/06/2023 10:50 AM DIRECTOR OF ACQUISITION MARKETING Gender Identity Female 10/06/2023 10:50 AM DIRECTOR OF ACQUISITION MARKETING Sexual Orientation Straight 10/06/2023 10 :50 AM DIRECTOR OF ACQUISITION MARKETING documented as of this encounter Plan of Treatment Upcoming Encounters Date Type Department Care Team (Late st Contact Info) Description 01/19/2024 10:00 AM CDT Telemedicine Department of Nutrition and Diabetes Education in [place], [place] [address] [place] [phone] Katja Umana M.D. [address] [place] [phone] Taty Cunningham M.S., RDN, LD [address] [place] [phone] 02/04/2024 2:15 PM CDT Appointment Division of Gastroenterology in [place], [place] [address] [place] [phone] Katja Umana M.D. [address] [place] [phone] Hayden Smith M.D. [address] [place] [phone] 03/21/2024 1:00 PM CDT Virtual Visit Department of Nicotine Dependence, [facility] in [place], [place] [address] [place] [phone] Scheduled Referrals Name Type Priority Associated Diagnoses Order Schedule Nicotine Dependence office visit (clinic) Outpatient Referral Routine Expected: 11/11/2023, Expires: 01/25/2025 documented as of this encounter Visit Diagnoses Not on filedocumented in this encounter Additional Health Concerns Assessment Noted Time PHQ-9 Depression Total Score: 3 10/20/19 24 7:30 AM DIRECTOR OF ACQUISITION MARKETING documented as of this encounter
--- OUTSIDE RECORDS SUMMARY | 2024-01-11 10:29 | XMS_ITS | Encounter Summary ---
Author Name Unknown Organization [facility] Address [address] [place] [address] Care Team Providers Care Commercial Helicopter Pilot Name Role Phone Unavailable Primary Care Provider Unavailabl e Encounter Details Date Type Department Care Team (Latest Contact Info) Description 10/24/2023 Clinical Communication Division of Gastroenterology in [place], [place] [address] [place] [phone] Katja Aguilera M.D. [address] [place] [phone] Social History Tobacco Use Types Packs/Day Years Used Date Smoking Tobacco: Every Day Cigarettes 0.5 40 Smokeless Tobacco: Never Alcohol Use Standard Drinks/Week Comments Not Currently 0 (1 standard drink = 0.6 oz pur e alcohol) [facility] Utilities Answer Date Recorded In the past [...] your living situation today? [facility] live 10/15/2023 Sex and Gender Information Value Date Recorded Sex Assigned at Female 10/06/2023 10:50 AM ECMO SPECIALIST Gender Identity Female 10/06/2023 10:50 AM ECMO SPECIALIST Sexual Orientation Straight 10/06/2023 10 :50 AM ECMO SPECIALIST documented as of this encounter Progress [...] I have sent an order to her [facility] Rajiv Taylor. She also reports ongoing difficulty with sleep, despite taking melatonin 10 mg nig htly. We will initiate trazodone at low dose, with 50 mg nightly. She was in agreement with the plan. SPECIALIST documented in this encounter Miscellaneous Notes * Addendum Note - Katja Aguilera M.D. - 10/24/2023 11:17 AM CSTAddended by: KATJA AGUILERA on: 10/24/2023 11:17 AM Modules accepted: Orders SPECIALIST documented in this encounter Plan of Treatment Upcoming Encounters Date Type Department Care Team (Late st Contact Info) Description 01/19/2024 10:00 AM CDT Telemedicine Department of Nutrition and Diabetes Education in [place], [place] [address] [place] [phone] Katja Aguilera M.D. [address] [place] [phone] Taty Cunningham M.S., RDN, LD [address] [place] [phone] 02/04/2024 2:15 PM CDT Appointment Division of Gastroenterology in [place], [place] [address] [place] [phone] Katja Aguilera M.D. [address] [place] [phone] Hayden Smith M.D. [address] [place] [phone] 03/21/2024 1:00 PM CDT Virtual Visit Department of Nicotine Dependence, [facility], in [place], [place] [address] [place] [phone] documented as of this encounter Results * (ABNORMAL) Basic Metabolic Panel (10/27/2023 10:33 AM ECMO SPECIALIST) [facility] Potassium, P 3.6 3.6 - 5.2 mmol/L 10/27/2023 10:57 AM ECMO SPECIALIST CNFL Sodium, P 125(L) 135 - 145 mmol/L 10/27/2023 10:57 AM ECMO SPECIALIST CNFL Chloride, P 92(L) 98 - 107 mmol/L 10/27/2023 10:57 AM ECMO SPECIALIST CNFL Bicarbonate, P 21(L) 22 - 29 mmol/L 10/27/2023 10:57 AM ECMO SPECIALIST CNFL Anion Gap, P 12 7 - 15 10/27/2023 10:57 AM ECMO SPECIALIST CNFL BUN (Blood Urea Nitrogen), P 10 6 - 21 mg/dL 10/27/2023 10:57 AM ECMO SPECIALIST CNFL Creatinine 0.47(L) 0.59 - 1.04 mg/dL 10/27/2023 10:57 AM ECMO SPECIALIST CNFL Estimated GFR (eGFR) >90 >=60 mL/min/BSA 10/27/2023 10:57 AM ECMO SPECIALIST CNFL Comment: Estimated GFR calculated using the 2020 CKD_EPI creatinine equation. Calcium, Total, P 8.4(L) 8.8 - 10.2 mg/dL 10/27/2023 10:57 AM ECMO SPECIALIST CNFL Glucose, P 93 70 - 140 mg/dL 10/27/2023 10:57 AM ECMO SPECIALIST CNFL Blood (Blood, Venous) 10/27/2023 10:33 AM ECMO SPECIALIST 10/27/2023 10:36 AM ECMO SPECIALIST Katja Aguilera M.D. LAB BLOOD ADD-ON Performing Organization Address City/State/[facility] Co de Phone Number [facility] [address] [place] [address], [facility] CNFL [facility] in [address] [address] documented in this encounter Visit Diagnoses Diagnosis Alcoholic Cirrhosis Of Liver With Ascites (HCC)- Primary documented in this encounter Additional Health Concerns Assessment Noted Time PHQ-9 Depression Total Score: 3 10/20/19 24 7:30 AM ECMO SPECIALIST documented as of this encounter
--- OUTSIDE RECORDS SUMMARY | 2024-01-11 10:29 | XMS_ITS | Encounter Summary ---
Author Name Unknown Organization [facility] Address [address] [place] [address] Care Team Providers Care Well Puller Head Name Role Phone Unavailable Primary Care Provider Unavailabl e Reason for Referral * Outpatient (Routine) - Closed Specialty Diagnoses / Procedures Referred By Delgadoac t Referred To Contact Diagnoses Ascites Procedures US Paracentesis with Imaging Guidance Felipe Morales M.D. 200 [place] [phone] [facility] Referral ID Status Reason Start Date Expiration Date Visits Re quested Visits Authorized [id number] Closed 10/11/2023 10/10/2024 1 1 BODY DESIGNER Reason for Visit * Outpatient (Routine) - Closed Specialty Diagnoses / Procedures Referred By Dotty oakes Referred To Contact Diagnoses Ascites Procedures US Paracentesis with Imaging Guidance Felipe Morales M.D. 200 [place] [phone] [facility] Referral ID Status Reason Start Date Expiration Date Visits Re quested Visits Authorized [id number] Closed 10/11/2023 10/10/2024 1 1 Encounter Details Date Type Department Care Team (Latest Contact Info) Description 11/05/2023 9:29 AM CAR BODY DESIGNER - 11/05/2023 12:20 PM CAR BODY DESIGNER Hospital Encounter Department of Radiology, [facility], in [place], [place] [address] [place] [phone] Felipe Morales M.D. [address] [place] [phone] Ascites Discharge Disposition: Home or Self Care Social History Tobacco Use Types Packs/Day Years Used Date Smoking Tobacco: Every Day Cigarettes 0.5 40 Smokeless Tobacco: Never Alcohol Use Standard Drinks/Week Comments Not Currently 0 (1 standard drink = 0.6 oz pur e alcohol) [facility] Utilities Answer Date Recorded In the past 12 months has th e [employer], gas, oil, or water company threatened to [...] Sex Assigned at Female 10/06/2023 10:50 AM CAR BODY DESIGNER Gender Identity Female 10/06/2023 10:50 AM CAR BODY DESIGNER Sexual Orientation Straight 10/06/2023 10 :50 AM CAR BODY DESIGNER documented as of this encounter Last Filed Vital Signs Vital Sign Reading Time Taken Comments Blood Pressure 106/56 11/05/2023 11:17 AM CAR BODY DESIGNER Pulse 88 11/05/2023 11:17 AM CAR BODY DESIGNER Temperature - - Respiratory Rate - - Oxygen Saturation 100% 11/05/2023 11:17 AM CAR BODY DESIGNER Inhaled Oxygen Concentration - - Weight - - Height - - Body Mass Index - - documented in this encounter Discharge Instructions * Attachments The following attachments cannot be sent through Care Everywhere. * Paracentesis (Slovenian) documented in this encounter Medications at Time [...] Department of Nutrition and Diabetes Education in [place], [place] [address] [place] [phone] Katja Uamna M.D. [address] [place] [phone] Taty Cunningham M.S., RDN, LD [address] [place] [phone] 02/04/2024 2:15 PM CDT Appointment Division of Gastroenterology in [address] [phone] Katja Umana M.D. [address] [place] [phone] Hayden Smith M.D. [address] [place] [phone] 03/21/2024 1:00 PM CDT Virtual Visit Department of Nicotine Dependence, [facility], in [place], [place] [address] [place] [phone] documented as of this encounter Procedures Procedure Name Priority Date/Time Associated Diagnosis Comments US PARACENTESIS WITH IMAGING GUIDANCE RAD - Routine (most inpatients and all outpatients) 11/05/2023 11:25 AM CAR BODY DESIGNER Ascites BACTERIAL CULTURE, AEROBIC + SUSC Timed 11/05/2023 10:07 AM CAR BODY DESIGNER Ascites CELL COUNT AND DIFFERENTIAL, BF Timed 11/05/2023 10:07 AM CAR BODY DESIGNER Ascites documented in this encounter Results * US Paracentesis with Imaging Guidance (11/05/2023 11:25 AM CAR BODY DESIGNER) Anatomical Region Laterality Modality Abdomen, Ultrasound RST LOS, Ultrasound ARZ LOS, Procedure FLA LOS, Abdominal FLA LOS, Procedural, Procedural NWWI LOS N/A Ultrasound Impressions 11/05/2023 11:28 AM CAR BODY DESIGNER Ultrasound-guided diagnostic and therapeutic paracentesis. NR Narrative 11/05/2023 11:28 AM CAR BODY DESIGNER EXAM: US PARACENTESIS WITH IMAGING GUIDANCE PRE-PROCEDURE: [...] lower quadrant peritoneal space. Needle size: 5 Kinyarwanda centesis catheter. Volume aspirated: 6.8 liters aspirated, [...] lower quadrant peritoneal space. Needle size: 5 Kinyarwanda centesis catheter. Volume aspirated: 6.8 liters aspirated, [...] and Differential, Body Fluid (11/05/2023 10:07 AM CAR BODY DESIGNER) Fluid Type Peritoneal /Paracente sis 11/05/2023 11:13 AM CAR BODY DESIGNER DHPM Gross Appearance Serous 11/05/19 24 11:13 AM CAR BODY DESIGNER DHPM Total Nucleated Cells 282 /mcL 11/05/2023 11:13 AM CAR BODY DESIGNER DHPM Comment: ----REFERENCE VALUE---- Synovial: <150 /mcL Peritoneal: <500 /mcL Pleural: <500 /mcL Pericardial: <500 /mcL ----ADDITIONAL INFORMATION---- This test has been modified from the medical technologist prn's instructions. Its performance characteristics were determined by [facility] in a manner consistent with CLIA requirements. This test has not been cleared or approved by the U.S. Food and Drug Administration. Neutrophils 3 % 11/05/2023 12:54 PM CAR BODY DESIGNER DHPM Comment: ----REFERENCE VALUE---- Synovial: <25% Peritoneal: <25% Pleural: <25% Pericardial: <25% Lymphocytes 26 Synovial <75% % 11/05/2023 12:54 PM CAR BODY DESIGNER DHPM Monocytes/Macropha ges 64 Synovial <70% % 11/05/2023 12:54 PM CAR BODY DESIGNER DHPM Other Cells 7 % 11/05/2023 12:54 PM CAR BODY DESIGNER DHPM Comment: ----REFERENCE VALUE---- The reference range and other method performance specifications have not been established for this bodyfluid. The test result must be integrated into the clinical context for interpretation. Other Cells Are: See Comment 11/05/2023 12:54 PM CAR BODY DESIGNER DHPM Comment:Mesothelial cells Comment See Comment 11/05/2023 12:54 PM CAR BODY DESIGNER DHPM Comment:No blasts or maligna nt cells seen.Erythrophagocytosis present. Reviewed by: Jose 11/05/2023 12:54 PM CAR BODY DESIGNER DHPM Fluid (Peritoneal Fluid) 11/05/2023 10:07 AM CAR BODY DESIGNER Felipe Morales M.D. LAB BODY FLUIDS AND STOOLS ORDERABLES Performing Organization Address [facility] Co de Phone Number [facility] [address] [place] [address], [facility] 200 [place] [address] * Bacterial Culture, Aerobic + Susceptibility (11/05/2023 10:07 AM CAR BODY DESIGNER) Bacterial Culture, Aerobic + Susc No growth after 5 days of incubation. 2023 7:33 AM CAR BODY DESIGNER DTL Fluid (Peritoneal Fluid) 11/05/2023 10:07 AM CAR BODY DESIGNER Narrative [facility] - 2023 7:33 AM CAR BODY DESIGNER Bacterial Culture: Received Bactec aerobic and Bactec anaerobic bottles Felipe Morales M.D. LAB MICROBIOLOGY - GENERAL ORDERABLES Performing Organization Address [facility] de Phone Number [facility] [address] [place] [address], [facility]] 200 [place] [address] documented in this encounter Visit Diagnoses Diagnosis [...] 100 mL/hr New Bag 11/05/2023 10:39 AM CAR BODY DESIGNER 25 g albumin human 25 % injection 25 g 25 g, intravenous, Once, On Wed11/05/23 at 1130, For 1 dose, If no infusion rate specified: Administer the 25% solution at 100 mL/hr New Bag 11/05/2023 11:20 AM CAR BODY DESIGNER 25 g lidocaine 10 mg/mL (1 %) injection (XYLOCAINE) As needed, Starting on Wed11/05/23 at 1023, Intra-Op Given 11/05/2023 10:23 AM CAR BODY DESIGNER 10 mL Abdominal Tissue documented in this encounter Active and Recently Administered Medications Times are shown in CAR BODY DESIGNER. Scheduled Medication Order 11/03/2023 11/04/2023 11/05/2023 albumin [...] Total Score: 3 10/20/19 24 7:30 AM CAR BODY DESIGNER documented as of this encounter
--- OUTSIDE RECORDS SUMMARY | 2024-01-11 10:29 | XMS_ITS | Encounter Summary ---
Author Name Unknown Organization [facility] Address [address] [place] [address] Care Team Providers Care Head Of Maintenance Name Role Phone Unavailable Primary Care Provider Unavailabl e Encounter Details Date Type Department Care Team (Latest Contact Info) Description 10/27/2023 10:26 AM HYPNOTHERAPIST - 10/27/2023 11:59 PM HYPNOTHERAPIST Hospital Encounter Department of Laboratory Medicine in [address] [phone] Romana Diane M.D., Ph.D. [address] [place] [phone] Alcohol Moderate Or Severe Use Disorder (Dependence) Uncomplicated (HCC) Discharge Disposition: Home or Self Care Social History Tobacco Use Types Packs/Day Years Used Date Smoking Tobacco: Every Day Cigarettes 0.5 40 Smokeless Tobacco: Never Alcohol Use Standard Drinks/Week Comments Not Currently 0 (1 standard drink = 0.6 oz pur e alcohol) [facility] Utilities Answer Date Recorded In the past 12 months has e [employer], gas, oil, or water [employer] threatened to shut off services in your [...] Date Recorded Employment status Working with temporary [employer] 10/15/2023 Housing Stability Answer Date Recorded What is your living situation today? I have a [facility] place to live 10/15/2023 Sex and Gender Information Value Date Recorded Sex Assigned at Female 10/06/2023 10:50 AM HYPNOTHERAPIST Gender Identity Female 10/06/2023 10:50 AM HYPNOTHERAPIST Sexual Orientation Straight 10/06/2023 10 :50 AM HYPNOTHERAPIST documented as of this encounter Medications at [...] Department of Nutrition and Diabetes Education in [place], [place] [address] [place] [phone] Katja Umana M.D. [address] [place] [phone] Taty Cunningham M.S., RDN, LD [address] [place] [phone] 02/04/2024 2:15 PM CDT Appointment Division of Gastroenterology in [place], [place] [address] [place] [phone] Katja Umana M.D. [address] [place] [phone] Hayden Smith M.D. [address] [place] [phone] 03/21/2024 1:00 PM CDT Virtual Visit Department of Nicotine Dependence, [facility] in [address] [phone] documented as of this encounter Procedures Procedure Name Priority Date/Time Associated Diagnosis Comments ETHYL GLUCURONIDE CONFIRMATION, U Routine 10/27/2023 10:38 AM HYPNOTHERAPIST Alcohol Moderate Or Severe Use Disorder (Dependence) Uncomplicated (HCC) CONFIRMED DRUG ABUSE PANEL, U Routine 10/27/2023 10:38 AM HYPNOTHERAPIST Alcohol Moderate Or Severe Use Disorder (Dependence) Uncomplicated (HCC) documented in this encounter Results * Drug Abuse Survey with Confirmation, Urine (10/27/2023 10:38 AM HYPNOTHERAPIST) Alcohol Negative Cutoff: 10 mg/dL 10/28/2023 9:08 AM HYPNOTHERAPIST [facility] Amphetamines Negative Cutoff: 500 ng/mL 10/28/2023 9:08 AM HYPNOTHERAPIST [facility] Barbiturates Negative Cutoff: 200 ng/mL 10/28/2023 9:[address] [facility] Benzodiazepines Negative Cutoff: 100 ng/mL 10/28/2023 9:[address] [facility] Cocaine Negative Cutoff: 150 ng/mL 10/28/2023 9:[address] [facility] Comment: This cocaine immunoassay targets benzoylecgonine the primary metabolite of cocaine. Opiates Negative Cutoff: 300 ng/mL 10/28/2023 9:[address] [facility] Phencyclidine Negative Cutoff: 25 ng/mL 10/28/2023 9:[address] [facility] Tetrahydrocannabinol Negative Cutoff: 50 ng/mL 10/28/2023 9:[address] [facility] Comment: This immunoassay targets delta-9 tetrahydrocannabinol carboxylic acid (THC-COOH), a metabolite of delta-9 tetrahydrocannabinol the main psychoactive ingredient of marijuana. ----ADDITIONAL INFORMATION---- This report is intended for use in clinical monitoring or management of patients. ??It is not intended for use in employment-related testing. Urine (Urine, Midstream) 10/27/2023 10:38 AM HYPNOTHERAPIST 10/27/2023 10:03 PM [facility] Romana Diane M.D., Ph.D. LAB URI NE ORDERABLES [facility] [address] [place] [address] [facility] [address] [place] [address] [place] [address] * Ethyl Glucuronide Confirmation, Random, Urine (10/27/2023 10:38 AM [facility]) Ethyl Glucuronide Confirmation, U Negative Cutoff: 250 ng/mL 10/29/2023 8:[address] [facility] Ethyl Sulfate Negative Cutoff: 100 ng/mL 10/29/2023 8:[address] [facility] Ethyl Gluc/Sulfate Interpretation Negative. 10/29/2023 8:[address] [facility] Comment: ----ADDITIONAL INFORMATION---- This report [...] Administration. Urine (Urine, Midstream) 10/27/2023 10:38 AM HYPNOTHERAPIST 10/27/2023 10:00 PM HYPNOTHERAPIST Romana Diane M.D., Ph.D. LAB URI NE ORDERABLES [facility] [address] [place] [address] [facility] [address] [place] [address] [place] [address] documented in this encounter Visit Diagnoses Diagnosis Alcohol Moderate Or Severe Use Disorder (Dependence) Uncomplicated (HCC) documented in this encounter Additional Health Concerns Assessment Noted Time PHQ-9 Depression Total Score: 3 10/20/19 24 7:30 AM HYPNOTHERAPIST documented as of this encounter
--- OUTSIDE RECORDS SUMMARY | 2024-01-11 10:29 | XMS_ITS | Encounter Summary ---
Author Name Unknown Organization [facility] Address [address] [place] [address] Care Team Providers Care Vice President Of Software Development Name Role Phone Unavailable Primary Care Provider Unavailabl e Reason for Referral * Behavioral Health (Routine) - Closed Specialty Diagnoses / Procedures Referred By Contac t Referred To Contact Psychiatry / Psychiatry and Psychology Diagnoses Alcoholic Cirrhosis Of Liver With Ascites (HCC) Katja mUana M.D. [address] [place] [phone] [facility] Referral ID Status Reason Start Date Expiration Date Visits Re quested Visits Authorized [id number] Closed 10/15/2023 04/15/2025 1 1 T DESK SPECIALIST * Outpatient (Routine) - Authorized Specialty Diagnoses / Procedures Referred By Contac t Referred To Contact Diagnoses Alcoholic Cirrhosis Of Liver With Ascites (HCC) Esophageal Varices Without Bleeding (HCC) Procedures EGD (EsophagoGastroDuodenoscopy) Restricted Katja Umana M.D. 200 [place] [phone] [facility] Referral ID Status Reason Start Date Expiration Date V isits Requested Visits Authorized [id number] Authorized 10/15/2023 10/14/2024 1 1 T DESK SPECIALIST * Outpatient (Routine) - Closed Specialty Diagnoses / Procedures Referred By Contac t Referred To Contact Preventive Medicine Diagnoses Alcoholic Cirrhosis Of Liver With Ascites (HCC) Katja Umana M.D. [address] [place] [phone] [facility] Referral ID Status Reason Start Date Expiration Date Visits Re quested Visits Authorized [id number] Closed 10/15/2023 04/15/2025 1 1 T DESK SPECIALIST Reason for Visit * Outpatient (Routine) - Closed Specialty Diagnoses / Procedures Referred By Contact Referred To Contact Gastroenterology and Hepatology Katja Umana M.D. [address] [place] [phone] Katja Umana M.D. [address] [place] [phone] Referral ID Status Reason Start Date Expiration Date Visits Re quested Visits Authorized [id number] Closed 10/13/2023 04/13/2025 1 1 Encounter Details Date Type Department Care Team (Latest Contact Info) Description 10/15/2023 10:40 AM FRONT DESK SPECIALIST Telemedicine Division of Gastroenterology in [place], [place] [address] [place] [phone] Katja Umana M.D. [address] [place] [phone] Ascites (Primary Dx); Alcoholic Cirrhosis Of Liver With Ascites (HCC); Esophageal Varices Without Bleeding (HCC) Social History Tobacco Use Types Packs/Day Years Used Date Smoking Tobacco: Every Day Cigarettes 0.5 40 Smokeless Tobacco: Never Alcohol Use Standard Drinks/Week Comments Not Currently 0 (1 standard drink = 0.6 oz pur e alcohol) [facility] Utilities Answer Date Recorded In the past 12 months has [employer], gas, oil, or water [employer] threatened to shut off services in [...] Date Recorded Employment status Working with temporary [employer] 10/15/2023 Housing Stability Answer Date Recorded What is your living situation today? I have a [facility] place to live 10/15/2023 Sex and Gender Information Value Date Recorded Sex Assigned at Female 10/06/2023 10:50 AM FRONT DESK SPECIALIST Gender Identity Female 10/06/2023 10:50 AM FRONT DESK SPECIALIST Sexual Orientation Straight 10/06/2023 10 :50 AM FRONT DESK SPECIALIST documented as of this encounter Progress Notes * Katja Umana M.D. - 10/15/2023 10:40 AM CST GASTROENTEROLOGY & HEPATOBILIARY CLINIC FOLLOW-UP NOTE Patient Name: Monique Redmond Date of Service: 10/15/2023 SUBJECTIVE This patient was virtually interviewed via real time video in the patient's home by Katja Umana M.D. at [facility]. The history and findings below are based [...] I have sent an order to the [facility]. She has met with our HB [...] last colonoscopy was performed in 2019 in [place]. I am not able to see this report. She is recommended to follow-up with her PCP for completing surveillance colonoscopy. If she is not able tocomplete this locally, then we can arrange for this to be done at [place]. [facility] Health maintenance She has evidence of [...] with local provider(s). Katja Umana M.D. 10/15/2023 T DESK SPECIALIST documented in this encounter Plan of Treatment Upcoming Encounters Date Type Department Care Team (Late st Contact Info) Description 01/19/2024 10:00 AM CDT Telemedicine Department of Nutrition and Diabetes Education in [place], [place] [address] [place] [place] [phone] Katja Umana M.D. [address] [place] [phone] Taty Cunningham M.S., RDN, LD [address] [place] [phone] 02/04/2024 2:15 PM CDT Appointment Division of Gastroenterology in [place], [place] [address] [place] [phone] Katja Umana M.D. [address] [place] [phone] Hayden Smith M.D. [address] [place] [phone] 03/21/2024 1:00 PM CDT Virtual Visit Department of Nicotine Dependence, [facility], in [place], [place] [address] [place] [place] [phone] Scheduled Orders Name Type Priority Associated Diagnoses [...] (ABNORMAL) Basic Metabolic Panel (10/20/2023 1:08 PM FRONT DESK SPECIALIST) Potassium, P 4.5 3.6 - 5.2 mmol/L 10/20/2023 1:30 PM FRONT DESK SPECIALIST [facility] Sodium, P 126(L) 135 - 145 mmol/L 10/20/2023 1:30 PM FRONT DESK SPECIALIST [facility] Chloride, P 97(L) 98 - 107 mmol/L 10/20/2023 1:30 PM FRONT DESK SPECIALIST [facility] Bicarbonate, P 23 22 - 29 mmol/L 10/20/2023 1:30 PM FRONT DESK SPECIALIST [facility] Anion Gap, P 6(L) 7 - 15 10/20/2023 1:30 PM FRONT DESK SPECIALIST [facility] BUN (Blood Urea Nitrogen), P 7 6 - 21 mg/dL 10/20/2023 1:30 PM FRONT DESK SPECIALIST [facility] Creatinine 0.37(L) 0.59 - 1.04 mg/dL 10/20/2023 1:30 PM FRONT DESK SPECIALIST [facility] Estimated GFR (eGFR) >90 >=60 mL/min/BSA 10/20/2023 1:30 PM FRONT DESK SPECIALIST [facility] Comment: Estimated GFR calculated using the 2020 CKD_EPI creatinine equation. Calcium, Total, P 8.2(L) 8.8 - 10.2 mg/dL 10/20/2023 1:30 PM FRONT DESK SPECIALIST [facility] Glucose, P 112 70 - 140 mg/dL 10/20/2023 1:30 PM FRONT DESK SPECIALIST [facility] Blood (Blood, Venous) 10/20/2023 1:08 PM FRONT DESK SPECIALIST 10/20/2023 1:09 PM FRONT DESK SPECIALIST Katja Umana M.D. LAB BLOOD ADD-ON [facility] [address] [place] [phone], [facility] CNFL [facility] in [address] [address] documented in this encounter Visit Diagnoses Diagnosis Ascites- Primary Alcoholic Cirrhosis Of Liver With Ascites (HCC) Esophageal Varices Without Bleeding (HCC) documented in this encounter
--- OUTSIDE RECORDS SUMMARY | 2024-01-11 10:29 | XMS_ITS | Encounter Summary ---
Author Name Unknown Organization [facility] Address [address] [place] [address] Care Team Providers Care Foreman/Project Manager Name Role Phone Unavailable Primary Care Provider Unavailabl e Reason for Referral * Outpatient (Routine) - Closed Specialty Diagnoses / Procedures Referred By Contact Referred To Contact Gastroenterology and Hepatology Katja Aguilera M.D. [address] [place] [phone] [facility] Referral ID Status Reason Start Date Expiration Date Visits Re quested Visits Authorized [id number] Closed 10/28/2023 04/28/2025 1 1 L DESIGNER Encounter Details Date Type Department Care Team (Late st Contact Info) Description 10/28/2023 Orders Only [facility] Transplantation and Clinical Regeneration in [place], [place] [address] [place] [phone] Katja Aguilera M.D. [address] [place] [phone] Alcoholic Cirrhosis Of Liver With Ascites (HCC) (Primary Dx) Social History Tobacco Use Types Packs/Day Years Used Date Smoking Tobacco: Every Day Cigarettes 0.5 40 Smokeless Tobacco: Never Alcohol Use Standard Drinks/Week Comments Not Currently 0 (1 standard drink = 0.6 oz pur e alcohol) [facility] Utilities Answer Date Recorded In the past 12 months has [employer], gas, oil, or water company threatened [...] your living situation today? I [facility] to live 10/15/2023 Sex and Gender Information Value Date Recorded Sex Assigned at Female 10/06/2023 10:50 AM CIVIL DESIGNER Gender Identity Female 10/06/2023 10:50 AM CIVIL DESIGNER Sexual Orientation Straight 10/06/2023 10 :50 AM CIVIL DESIGNER documented as of this encounter Miscellaneous Notes * Addendum Note - Katja Aguilera M.D. - 10/28/2023 2:39 PM CSTAddended by: KATJA AGUILERA on: 10/28/2023 02:48 PM Modules accepted: Orders L DESIGNER documented in this encounter Plan of Treatment Upcoming Encounters Date Type Department Care Team (Late st Contact Info) Description 01/19/2024 10:00 AM CDT Telemedicine Department of Nutrition and Diabetes Education in [place], [place] [address] [place] [phone] Katja Aguilera M.D. [address] [place] [phone] Taty Cunningham M.S., RDN, LD [address] [place] [phone] 02/04/2024 2:15 PM CDT Appointment Division of Gastroenterology in [place], [place] [address] [place] [phone] Katja Aguilera M.D. [address] [place] [phone] Hayden Smith M.D. [address] [place] [phone] 03/21/2024 1:00 PM CDT Virtual Visit Department of Nicotine Dependence, [facility], in [place], [place] [address] [place] [phone] Scheduled Referrals Name Type Priority Associated Diagnoses Order Schedule Gastroenterology and Hepatology office visit (clinic) Outpatient Referral Routine Expected: 12/14/2023, Expires: 01/25/2025 documented as of this encounter Results * (ABNORMAL) Basic Metabolic Panel (11/01/2023 12:49 PM CIVIL DESIGNER) Potassium, P 4.1 3.6 - 5.2 mmol/L 11/01/2023 1:13 PM CIVIL DESIGNER CNFL Sodium, P 128(L) 135 - 145 mmol/L 11/01/2023 1:13 PM CIVIL DESIGNER CNFL Chloride, P 95(L) 98 - 107 mmol/L 11/01/2023 1:13 PM CIVIL DESIGNER CNFL Bicarbonate, P 26 22 - 29 mmol/L 11/01/2023 1:13 PM CIVIL DESIGNER CNFL Anion Gap, P 7 7 - 15 11/01/2023 1:13 PM CIVIL DESIGNER CNFL BUN (Blood Urea Nitrogen), P 10 6 - 21 mg/dL 11/01/2023 1:13 PM CIVIL DESIGNER CNFL Creatinine 0.42(L) 0.59 - 1.04 mg/dL 11/01/2023 1:13 PM CIVIL DESIGNER CNFL Estimated GFR (eGFR) >90 >=60 mL/min/BSA 11/01/2023 1:13 PM CIVIL DESIGNER [facility]FL Comment: Estimated GFR calculated using the 2020 CKD_EPI creatinine equation. Calcium, Total, P 8.3(L) 8.8 - 10.2 mg/dL 11/01/2023 1:13 PM CIVIL DESIGNER CNFL Glucose, P 105 70 - 140 mg/dL 11/01/2023 1:13 PM CIVIL DESIGNER CNFL Blood (Blood, Venous) 11/01/2023 12:49 PM CIVIL DESIGNER 11/01/2023 12:54 PM CIVIL DESIGNER Katja Aguilera M.D. LAB BLOOD ADD-ON Performing Organization Address [facility]/State/[facility] Co de Phone Number [facility] [address] [place] [phone], [facility] CNFL [facility] in [address] [address] documented in this encounter Visit Diagnoses Diagnosis Alcoholic Cirrhosis Of Liver With Ascites (HCC)- Primary documented in this encounter Additional Health Concerns Assessment Noted Time PHQ-9 Depression Total Score: 3 10/20/19 24 7:30 AM CIVIL DESIGNER documented as of this encounter
--- OUTSIDE RECORDS SUMMARY | 2024-01-11 10:29 | XMS_ITS | Encounter Summary ---
Author Name Unknown Organization [facility] Address [address] [place] [address] Care Team Providers Care Siebel Administrator Name Role Phone Unavailable Primary Care Provider Unavailabl e Reason for Referral * Outpatient (Routine) - Closed Specialty Diagnoses / Procedures Referred By Contac t Referred To Contact Diagnoses Ascites Procedures US Paracentesis with Imaging Guidance Katja Umana M.D. 200 [place] [phone] [facility] Referral ID Status Reason Start Date Expiration Date Visits Re quested Visits Authorized [id number] Closed 10/18/2023 10/17/2024 1 1 SPROUT GROWER Reason for Visit * Auth/Cert (Routine) Specialty Diagnoses / Procedures Referred By Contac t Referred To Contact Diagnoses Ascites Procedures US PARACENTESIS WITH IMAGING GUIDANCE Referral ID Status Reason Start Date Expiration Date Visits Re quested Visits Authorized [id number] 1 1 Encounter Details Date Type Department Care Team (Latest Contact Info) Description 10/22/2023 7:27 AM BEAN SPROUT GROWER - 10/22/2023 3:44 PM BEAN SPROUT GROWER Hospital Encounter Department of Radiology, [facility], in [place], [place] [address] [place] [address] Katja Umana M.D. [address] [place] [phone] Ascites Discharge Disposition: Home or Self Care Social History Tobacco Use Types Packs/Day Years Used Date Smoking Tobacco: Every Day Cigarettes 0.5 40 Smokeless Tobacco: Never Alcohol Use Standard Drinks/Week Comments Not Currently 0 (1 standard drink = 0.6 oz pur e alcohol) [facility] Utilities Answer Date Recorded [...] living situation today? I have a [facility] place to live 10/15/2023 Sex and Gender Information Value Date Recorded Sex Assigned at Female 10/06/2023 10:50 AM BEAN SPROUT GROWER Gender Identity Female 10/06/2023 10:50 AM BEAN SPROUT GROWER Sexual Orientation Straight 10/06/2023 10 :50 AM BEAN SPROUT GROWER documented as of this encounter Last Filed Vital Signs Vital Sign Reading Time Taken Comments Blood Pressure 116/58 10/22/2023 10:10 AM BEAN SPROUT GROWER Pulse 102 10/22/2023 10:10 AM BEAN SPROUT GROWER Temperature - - Respiratory Rate - - Oxygen Saturation 100% 10/22/2023 10:10 AM BEAN SPROUT GROWER Inhaled Oxygen Concentration - - Weight - [...] Department of Nutrition and Diabetes Education in [place], [place] [address] [place] [phone] Katja Umana M.D. [address] [place] [phone] Taty Cunningham M.S., RDN, LD [address] [place] [phone] 02/04/2024 2:15 PM CDT Appointment Division of Gastroenterology in [place], [place] [address] [place] [phone] Katja Umana M.D. [address] [place] [phone] Hayden Smith M.D. [address] [place] [phone] 03/21/2024 1:00 PM CDT Virtual Visit Department of Nicotine Dependence, [facility], in [place], [place] [address] [place] [phone] documented as of this encounter Procedures Procedure Name Priority Date/Time Associated Diagnosis Comments US PARACENTESIS WITH IMAGING GUIDANCE RAD - Routine (most inpatients and all outpatients) 10/22/2023 10:18 AM BEAN SPROUT GROWER Ascites BACTERIAL CULTURE, AEROBIC + SUSC Timed 10/22/2023 8:54 AM BEAN SPROUT GROWER Ascites CELL COUNT AND DIFFERENTIAL, BF Timed 10/22/2023 8:54 AM BEAN SPROUT GROWER Ascites documented in this encounter Results * US Paracentesis with Imaging Guidance (10/22/2023 10:18 AM BEAN SPROUT GROWER) Anatomical Region Laterality Modality Abdomen, Ultrasound RST LOS, Ultrasound ARZ LOS, Procedure FLA LOS, Abdominal FLA LOS, Procedural, Procedural NWWI LOS N/A Ultrasound Impressions 10/22/2023 10:26 AM BEAN SPROUT GROWER Ultrasound-guided diagnostic and therapeutic paracentesis. NR Narrative 10/22/2023 10:26 AM BEAN SPROUT GROWER EXAM: US PARACENTESIS WITH IMAGING GUIDANCE PRE-PROCEDURE: [...] and Differential, Body Fluid (10/22/2023 8:54 AM BEAN SPROUT GROWER) Fluid Type Peritoneal /Paracente sis 10/22/2023 10:30 AM BEAN SPROUT GROWER DHPM Gross Appearance Serous 10/22/19 24 10:30 AM BEAN SPROUT GROWER DHPM Total Nucleated Cells 171 /mcL 10/22/2023 10:30 AM BEAN SPROUT GROWER DHPM Comment: ----REFERENCE VALUE---- Synovial: <150 /mcL Peritoneal: <500 /mcL Pleural: <500 /mcL Pericardial: <500 /mcL ----ADDITIONAL INFORMATION---- This test has been modified from the cognos bi developer's instructions. Its performance characteristics were determined by [facility] in a manner consistent with CLIA requirements. This test has not been cleared or approved by the U.S. Food and Drug Administration. Neutrophils 2 % 10/22/2023 11:42 AM BEAN SPROUT GROWER DHPM Comment: ----REFERENCE VALUE---- Synovial: <25% Peritoneal: <25% Pleural: <25% Pericardial: <25% Lymphocytes 14 Synovial <75% % 10/22/2023 11:42 AM BEAN SPROUT GROWER DHPM Monocytes/Macropha ges 70 Synovial <70% % 10/22/2023 11:42 AM BEAN SPROUT GROWER DHPM Other Cells 14 % 10/22/2023 11:42 AM BEAN SPROUT GROWER DHPM Comment: ----REFERENCE VALUE---- The reference range and other method performance specifications have not been established for this bodyfluid. The test result must be integrated into the clinical context for interpretation. Other Cells Are: See Comment 10/22/2023 11:42 AM BEAN SPROUT GROWER DHPM Comment:Mesothelial cells Comment See Comment 10/22/2023 11:42 AM BEAN SPROUT GROWER DHPM Comment:No blasts or maligna nt cells seen. Reviewed by: Jose 10/22/2023 11:42 AM BEAN SPROUT GROWER DHPM Fluid (Peritoneal Fluid) 10/22/2023 8:54 AM BEAN SPROUT GROWER Felipe Morales M.D. LAB BODY FLUIDS AND STOOLS ORDERABLES [facility] [address] [place] [address], [facility] [address] [place] [address] * Bacterial Culture, Aerobic + Susceptibility (10/22/2023 8:54 AM BEAN SPROUT GROWER) Bacterial Culture, Aerobic + Susc No growth after 5 days of incubation. 10/27/2023 11:39 AM BEAN SPROUT GROWER DTL Fluid (Peritoneal Fluid) 10/22/2023 8:54 AM BEAN SPROUT GROWER Narrative [facility] - 10/27/2023 11:39 AM BEAN SPROUT GROWER Bacterial Culture: Placed in Bactec anaerobic bottle Bacterial Culture: Received Bactec aerobic bottle Felipe Morales M.D. LAB MICROBIOLOGY - GENERAL ORDERABLES Performing Organization Address City/[facility]/ZIP Co de Phone Number [facility] [address] [place] [address], [facility] [address] [place] [address] documented in this encounter Visit Diagnoses Diagnosis [...] provider's discretion) New Bag 10/22/2023 9:07 AM BEAN SPROUT GROWER 25 g albumin human 25 % injection [...] provider's discretion) New Bag 10/22/2023 9:31 AM BEAN SPROUT GROWER 25 g lidocaine 10 mg/mL (1 %) injection (XYLOCAINE) As needed, Starting on Wed10/22/23 at 0858, Intra-Op Given 10/22/2023 8:58 AM BEAN SPROUT GROWER 10 mL Right Upper Abdomen documented in this encounter Active and Recently Administered Medications Times are shown in BEAN SPROUT GROWER. Scheduled Medication Order 10/20/2023 10/21/2023 10/22/2023 albumin [...] Total Score: 3 10/20/19 24 7:30 AM BEAN SPROUT GROWER documented as of this encounter
--- OUTSIDE RECORDS SUMMARY | 2024-01-11 10:29 | XMS_ITS | Encounter Summary ---
Author Name Unknown Organization [facility] Address [address] [place] [address] Care Team Providers Care Decorating Instructor Name Role Phone Unavailable Primary Care Provider Unavailabl e Encounter Details Date Type Department Care Team (Late st Contact Info) Description 10/09/2023 Documentation Division of Gastroenterology in [place], [place] [address] [place] [phone] Joy Rudd M.B.B.S. [address] [place] [phone] Social History Tobacco Use Types Packs/Day Years [...] Sex Assigned at Female 10/06/2023 10:50 AM CUSTOM FEED MILL OPERATOR HELPER Gender Identity Female 10/06/2023 10:50 AM CUSTOM FEED MILL OPERATOR HELPER Sexual Orientation Straight 10/06/2023 10 :50 AM CUSTOM FEED MILL OPERATOR HELPER documented as of this encounter Progress Notes [...] signed by: Vielka CanelaSPetros 10/09/23 4:28 PM CUSTOM FEED MILL OPERATOR HELPER OM FEED MILL OPERATOR HELPER documented in this encounter Plan of Treatment Upcoming Encounters Date Type Department Care Team (Late st Contact Info) Description 01/19/2024 10:00 AM CDT Telemedicine Department of Nutrition and Diabetes Education in [place], [place] [address] [place] [phone] Katja Umana M.D. [address] [place] [phone] Taty Cunningham M.S., RDN, LD [address] [place] [phone] 02/04/2024 2:15 PM CDT Appointment Division of Gastroenterology in [place], [place] [address] [place] [phone] Katja Umana M.D. [address] [place] [phone] Hayden Smith M.D. [address] [place] [phone] 03/21/2024 1:00 PM CDT Virtual Visit Department of Nicotine Dependence, [facility], in [place], [place] [address] [place] [phone] documented as of this encounter Visit Diagnoses Not on filedocumented in this encounter
--- OUTSIDE RECORDS SUMMARY | 2024-01-11 10:29 | XMS_ITS | Encounter Summary ---
Author Name Unknown Organization [facility] Address [address] [place] [address] Care Team Providers Care Title I Teacher Name Role Phone Unavailable Primary Care Provider Unavailabl e Reason for Visit * Reason Onset Date Comments NDC Med Request 10/28/2023 Encounter Details Date Type Department Care Team (Latest Contact Info) Description 10/28/2023 Clinical Communication Department of Nicotine Dependence, [facility], in [place], [place] [address] [place] [address] Sudha Bernstein M.A., L.I.C.S.W., M.S.W. [address] [place] [phone] NDC Med Request Social History Tobacco Use Types Packs/Day Years Used Date Smoking Tobacco: Every Day Cigarettes 0.5 40 Smokeless Tobacco: Never Alcohol Use Standard Drinks/Week Comments Not Currently 0 (1 standard drink = 0.6 oz pur e alcohol) [facility] Utilities Answer Date Recorded In the past 12 months has [employer], gas, oil, or water [employer] threatened to shut off services in your [...] Date Recorded Employment status Working with temporary [employer] 10/15/2023 Housing Stability Answer Date Recorded What is your living situation today? I have a [facility] place to live 10/15/2023 Sex and Gender Information Value Date Recorded Sex Assigned at Female 10/06/2023 10:50 AM HOSPICE CARE CONSULTANT Gender Identity Female 10/06/2023 10:50 AM HOSPICE CARE CONSULTANT Sexual Orientation Straight 10/06/2023 10 :50 AM HOSPICE CARE CONSULTANT documented as of this encounter Miscellaneous Notes * Addendum Note - Raisa Hunt M.D. - 10/28/2023 5:01 PM CSTAddended by: RAISA HUNT on: 10/28/2023 05:01 PM Modules accepted: Orders ICE CARE CONSULTANT * Telephone Encounter - Sudha Bernstein M.A., L.I.C.S.W., M.S.W. - 10/28/2023 11:[address] Hunt, this patient is interested in having a prescription for Varenicline and nicotine lozenges sent to [facility] in [place], [place] for smoking cessation if appropriate based on your review of her medical record. Varenicline Starter Pack with refills 2 mg nicotine lozenges Thank you. ICE CARE CONSULTANT documented in this encounter Plan of Treatment Upcoming Encounters Date Type Department Care Team (Late st Contact Info) Description 01/19/2024 10:00 AM CDT Telemedicine Department of Nutrition and Diabetes Education in [place], [place] [address] [place] [phone] Katja Umana M.D. [address] [place] [phone] Taty Cunningham M.S., RDN, LD [address] [place] [phone] 02/04/2024 2:15 PM CDT Appointment Division of Gastroenterology in [place], [place] [address] [place] [phone] Katja Umana M.D. [address] [place] [phone] Hayden Smith M.D. [address] [place] [phone] 03/21/2024 1:00 PM CDT Virtual Visit Department of Nicotine Dependence, [facility], in [place], [place] [address] [place] [phone] documented as of this encounter Visit Diagnoses Diagnosis Nicotine Dependence Cigarettes- Primary documented in this encounter Additional Health Concerns Assessment Noted Time PHQ-9 Depression Total Score: 3 10/20/19 24 7:30 AM HOSPICE CARE CONSULTANT documented as of this encounter
--- OUTSIDE RECORDS SUMMARY | 2024-01-11 10:29 | XMS_ITS | Encounter Summary ---
Author Name Unknown Organization [facility] Address [address] [place] [address] Care Team Providers Care Supervisor Assembly Room Name Role Phone Unavailable Primary Care Provider Unavailabl e Encounter Details Date Type Department Care Team (Latest Contact Info) Description 10/20/2023 1:00 PM SENIOR LOSS CONTROL SPECIALIST - 10/20/2023 11:59 PM SENIOR LOSS CONTROL SPECIALIST Hospital Encounter Department of Laboratory Medicine in [address] [phone] Katja Umana M.D. [address] [place] [phone] Ascites Discharge Disposition: Home or Self Care Social History Tobacco Use Types Packs/Day Years Used Date Smoking Tobacco: Every Day Cigarettes 0.5 40 Smokeless Tobacco: Never Alcohol Use Standard Drinks/Week Comments Not Currently 0 (1 standard drink = 0.6 oz pur e alcohol) [facility] Utilities Answer Date Recorded In the past 12 months has [employer], gas, oil, or water [employer] threatened to shut off services in your [...] Date Recorded Employment status Working with temporary [employer] 10/15/2023 Housing Stability Answer Date Recorded What is your living situation today? I have a [facility] place to live 10/15/2023 Sex and Gender Information Value Date Recorded Sex Assigned at Female 10/06/2023 10:50 AM SENIOR LOSS CONTROL SPECIALIST Gender Identity Female 10/06/2023 10:50 AM SENIOR LOSS CONTROL SPECIALIST Sexual Orientation Straight 10/06/2023 10 :50 AM SENIOR LOSS CONTROL SPECIALIST documented as of this encounter Medications [...] and Diabetes Education in [place], [place] [address] [place] [address] Katja Umana M.D. [address] [place] [phone] Taty Cunningham M.S., RDN, LD [address] [place] [phone] 02/04/2024 2:15 PM CDT Appointment Division of Gastroenterology in [place], [place] [address] [place] [phone] Katja Umana M.D. [address] [place] [phone] Hayden Smith M.D. [address] [place] [phone] 03/21/2024 1:00 PM CDT Virtual Visit Department of Nicotine Dependence, [facility], in [place], [place] [address] [place] [phone] documented as of this encounter Procedures Procedure Name Priority Date/Time Associated Diagnosis Comments BASIC METABOLIC PANEL, S/P Routine 10/20/2023 1:08 PM SENIOR LOSS CONTROL SPECIALIST Ascites documented in this encounter Results * (ABNORMAL) Basic Metabolic Panel (10/20/2023 1:08 PM SENIOR LOSS CONTROL SPECIALIST) Potassium, P 4.5 3.6 - 5.2 mmol/L 10/20/2023 1:30 PM SENIOR LOSS CONTROL SPECIALIST CNFL Sodium, P 126(L) 135 - 145 mmol/L 10/20/2023 1:30 PM SENIOR LOSS CONTROL SPECIALIST CNFL Chloride, P 97(L) 98 - 107 mmol/L 10/20/2023 1:30 PM SENIOR LOSS CONTROL SPECIALIST CNFL Bicarbonate, P 23 22 - 29 mmol/L 10/20/2023 1:30 PM SENIOR LOSS CONTROL SPECIALIST CNFL Anion Gap, P 6(L) 7 - 15 10/20/2023 1:30 PM SENIOR LOSS CONTROL SPECIALIST CNFL BUN (Blood Urea Nitrogen), P 7 6 - 21 mg/dL 10/20/2023 1:30 PM SENIOR LOSS CONTROL SPECIALIST CNFL Creatinine 0.37(L) 0.59 - 1.04 mg/dL 10/20/2023 1:30 PM SENIOR LOSS CONTROL SPECIALIST CNFL Estimated GFR (eGFR) >90 >=60 mL/min/BSA 10/20/2023 1:30 PM SENIOR LOSS CONTROL SPECIALIST CNFL Comment: Estimated GFR calculated using the 2020 CKD_EPI creatinine equation. Calcium, Total, P 8.2(L) 8.8 - 10.2 mg/dL 10/20/2023 1:30 PM SENIOR LOSS CONTROL SPECIALIST CNFL Glucose, P 112 70 - 140 mg/dL 10/20/2023 1:30 PM SENIOR LOSS CONTROL SPECIALIST CNFL Blood (Blood, Venous) 10/20/2023 1:08 PM SENIOR LOSS CONTROL SPECIALIST 10/20/2023 1:09 PM SENIOR LOSS CONTROL SPECIALIST Katja Umana M.D. LAB BLOOD ADD-ON [facility] [address] [place] [address], [facility] CNFL [facility] in [address] [phone] documented in this encounter Visit Diagnoses Diagnosis Ascites documented in this encounter Additional Health Concerns Assessment Noted Time PHQ-9 Depression Total Score: 3 10/20/19 24 7:30 AM SENIOR LOSS CONTROL SPECIALIST documented as of this encounter
--- OUTSIDE RECORDS SUMMARY | 2024-01-11 10:29 | XMS_ITS | Encounter Summary ---
Author Name Unknown Organization [facility] Address [address] [place] [address] Care Team Providers Care Grain Cleaner Name Role Phone Unavailable Primary Care Provider Unavailabl e Encounter Details Date Type Department Care Team (Latest Contact Info) Description 10/08/2023 3:19 PM REMNANTS CUTTER Anesthesia Event Division of Gastroenterology in [place], [place] [address] [place] [phone] Jeffy Moy APRN, JAGUAR [address] [place] [phone] Joshua Beverly M.D. [address] [place] [phone] Anesthesia Record Procedure Summary Procedure Name Responsible [...] Sex Assigned at Female 10/06/2023 10:50 AM REMNANTS CUTTER Gender Identity Female 10/06/2023 10:50 AM REMNANTS CUTTER Sexual Orientation Straight 10/06/2023 10 :50 AM REMNANTS CUTTER documented as of this encounter OR Notes * Anesthesia Postprocedure Evaluation - Jeffy Moy APRN, JAGUAR - 10/08/2023 3:50 PM CST Patient: Monique Redmond Procedure Summary Date: 10/08/23 Room / Location: Division of Gastroenterology in [place], [place] Anesthesia Start: 151 Anesthesia Stop: 1550 [...] Post Op nausea/vomiting: none Hydration status: euvolemic ANTS CUTTER * Anesthesia Preprocedure Evaluation - Jeffy Moy APRN, CRNA - 10/08/2023 3:34 PM CST Preprocedure Anesthesia & H&P Assessment Procedure Summary Anesthesia Start Date/Time: 10/08/231518 Scheduled providers: Gaviota Kamara APRN, CRNA Procedure: EGD (ESOPHAGOGASTRODUODENOSCOPY) RESTRICTED Diagnosis: Alcoholic Cirrhosis Of Liver With Ascites (HCC) [K70.31] Alcoholic Cirrhosis Of Liver With Ascites (HCC) [K70.31] Location: Division of Gastroenterology in [place], [place] Pertinent components of the patient's history [...] with patient /legal guardian or through an fourth hand. Risks/Benefits/Alternatives of Blood transfusion discussed with patient / legal guardian, includingan opportunity to ask questions and/or decline some or all transfusion therapies. The patient / legal guardian consented to the use of all blood products, as deemed medically necessary Approval to Proceed: approved for anesthesia ANTS CUTTER documented in this encounter Plan of Treatment Upcoming Encounters Date Type Department Care Team (Late st Contact Info) Description 01/19/2024 10:00 AM CDT Telemedicine Department of Nutrition and Diabetes Education in [place], [place] [address] [place] [phone] Katja Umana M.D. [address] [place] [phone] Taty Cunningham M.SPetros, RDN, LD [address] [place] [phone] 02/04/2024 2:15 PM CDT Appointment Division of Gastroenterology in [place], [place] [address] [place] [phone] Katja Umana M.D. [address] [place] [phone] Hayden Smith M.D. [address] [place] [phone] 03/21/2024 1:00 PM CDT Virtual Visit Department of Nicotine Dependence, [facility], in [place], [place] [address] [place] [phone] documented as of this encounter Visit Diagnoses Not on filedocumented in this encounter Administered Medications Inactive Administered Medications - up to 3 most recent administrations Medication Order MAR Action Action Date Dose Rate Site fentaNYL injection (SUBLIMAZE) intravenous, As needed, Starting on Wed10/08/23 at 1530, Anesthesia Intra-op Given 10/08/2023 3:30 PM REMNANTS CUTTER 25 mcg Lactated Ringer's intravenous, Continuous Infusion: Per Instructions PRN, Starting on Wed10/08/23 at 1523, Anesthesia Intra-op New Bag 10/08/2023 3:23 PM REMNANTS CUTTER lidocaine (PF) (cardiac) injection intravenous, As needed, Starting on Wed10/08/23 at 1523, Anesthesia Intra-op Given 10/08/2023 3:23 PM REMNANTS CUTTER 60 mg ondansetron (PF) injection (ZOFRAN) intravenous, As needed, Starting on Wed10/08/23 at 1523, Anesthesia Intra-op Given 10/08/2023 3:23 PM REMNANTS CUTTER 4 mg propofol 10 mg/mL infusion (DIPRIVAN) intravenous, Continuous Infusion: Per Instructions PRN, Starting on Wed10/08/23 at 1523, Anesthesia Intra-op New Bag 10/08/2023 3:23 PM REMNANTS CUTTER 150 mcg/kg/min 51.48 mL/hr propofoL injection (DIPRIVAN) intravenous, As needed, Starting on Wed10/08/23 at 1524, Anesthesia Intra-op Given 10/08/2023 3:26 PM REMNANTS CUTTER 20 mg Given 10/08/2023 3:24 PM REMNANTS CUTTER 20 mg documented in this encounter
--- OUTSIDE RECORDS SUMMARY | 2024-01-11 10:29 | XMS_ITS | Encounter Summary ---
Author Name Unknown Organization [facility] Address [address] [place] [address] Care Team Providers Care Dowel Pointer Name Role Phone Unavailable Primary Care Provider Unavailabl e Encounter Details Date Type Department Care Team (Latest Contact Info) Description 11/01/2023 12:28 PM TAX EXPERT - 11/01/2023 11:59 PM TAX EXPERT Hospital Encounter Department of Laboratory Medicine in [address] [phone] Katja Umana M.D. [address] [place] [address] Alcoholic Cirrhosis Of Liver With Ascites (HCC) Discharge Disposition: Home or Self Care Social History Tobacco Use Types Packs/Day Years Used Date Smoking Tobacco: Every Day Cigarettes 0.5 40 Smokeless Tobacco: Never Alcohol Use Standard Drinks/Week Comments Not Currently 0 (1 standard drink = 0.6 oz pur e alcohol) [facility] Utilities Answer Date Recorded In the past 12 months has [employer], gas, oil, or water [employer] threatened to shut off services in your [...] Date Recorded Employment status Working with temporary [employer] 10/15/2023 Housing Stability Answer Date Recorded What is your living situation today? I have a [facility] place to live 10/15/2023 Sex and Gender Information Value Date Recorded Sex Assigned at Female 10/06/2023 10:50 AM TAX EXPERT Gender Identity Female 10/06/2023 10:50 AM TAX EXPERT Sexual Orientation Straight 10/06/2023 10 :50 AM TAX EXPERT documented as of this encounter Medications at [...] Department of Nutrition and Diabetes Education in [place], [place] [address] [place] [phone] Katja Umana M.D. [address] [place] [phone] Taty Cunningham M.S., RDN, LD [address] [place] [phone] 02/04/2024 2:15 PM CDT Appointment Division of Gastroenterology in [place], [place] [address] [place] [phone] Katja Umana M.D. [address] [place] [phone] Hayden Smith M.D. [address] [place] [phone] 03/21/2024 1:00 PM CDT Virtual Visit Department of Nicotine Dependence, [facility], in [place], [place] [address] [place] [phone] documented as of this encounter Procedures Procedure Name Priority Date/Time Associated Diagnosis Comments BASIC METABOLIC PANEL, S/P Routine 11/01/2023 12:49 PM TAX EXPERT Alcoholic Cirrhosis Of Liver With Ascites (HCC) documented in this encounter Results * (ABNORMAL) Basic Metabolic Panel (11/01/2023 12:49 PM TAX EXPERT) Potassium, P 4.1 3.6 - 5.2 mmol/L 11/01/2023 1:13 PM TAX EXPERT CNFL Sodium, P 128(L) 135 - 145 mmol/L 11/01/2023 1:13 PM TAX EXPERT CNFL Chloride, P 95(L) 98 - 107 mmol/L 11/01/2023 1:13 PM TAX EXPERT CNFL Bicarbonate, P 26 22 - 29 mmol/L 11/01/2023 1:13 PM TAX EXPERT CNFL Anion Gap, P 7 7 - 15 11/01/2023 1:13 PM TAX EXPERT CNFL BUN (Blood Urea Nitrogen), P 10 6 - 21 mg/dL 11/01/2023 1:13 PM TAX EXPERT CNFL Creatinine 0.42(L) 0.59 - 1.04 mg/dL 11/01/2023 1:13 PM TAX EXPERT CNFL Estimated GFR (eGFR) >90 >=60 mL/min/BSA 11/01/2023 1:13 PM TAX EXPERT CNFL Comment: Estimated GFR calculated using the 2020 CKD_EPI creatinine equation. Calcium, Total, P 8.3(L) 8.8 - 10.2 mg/dL 11/01/2023 1:13 PM TAX EXPERT CNFL Glucose, P 105 70 - 140 mg/dL 11/01/2023 1:13 PM TAX EXPERT CNFL Blood (Blood, Venous) 11/01/2023 12:49 PM TAX EXPERT 11/01/2023 12:54 PM TAX EXPERT Katja Umana M.D. LAB BLOOD ADD-ON [facility] [address] [place] [phone], RUST CNFL [facility] in [address] [address] documented in this encounter Visit Diagnoses Diagnosis Alcoholic Cirrhosis Of Liver With Ascites (HCC) documented in this encounter Additional Health Concerns Assessment Noted Time PHQ-9 Depression Total Score: 3 10/20/19 24 7:30 AM TAX EXPERT documented as of this encounter
--- OUTSIDE RECORDS SUMMARY | 2024-01-11 10:30 | XMS_ITS | Encounter Summary ---
Author Name Unknown Organization [facility] Address [address] [place] [address] Care Team Providers Care Water Registrar Name Role Phone Unavailable Primary Care Provider Unavailabl e Reason for Referral * Outpatient (Routine) - Closed Specialty Diagnoses / Procedures Referred By Contac t Referred To Contact Diagnoses Alcoholic Cirrhosis Of Liver With Ascites (HCC) Procedures Echo Transthoracic (TTE) Katja Umana M.D. [address] [place] [phone] [facility] Referral ID Status Reason Start Date Expiration Date Visits Re quested Visits Authorized [id number] Closed 10/06/2023 10/05/2024 1 1 TIVE PHYSICAL EDUCATION SPECIALIST Reason for Visit * Outpatient (Routine) - Closed Specialty Diagnoses / Procedures Referred By Dotty oakes Referred To Contact Diagnoses Alcoholic Cirrhosis Of Liver With Ascites (HCC) Procedures Echo Transthoracic (TTE) Katja Umana M.D. 200 [place] [address] [facility] Referral ID Status Reason Start Date Expiration Date Visits Re quested Visits Authorized [id number] Closed 10/06/2023 10/05/2024 1 1 Encounter Details Date Type Department Care Team (Latest Contact Info) Description 10/07/2023 9:50 AM ADAPTIVE PHYSICAL EDUCATION SPECIALIST - 10/07/2023 11:59 PM ADAPTIVE PHYSICAL EDUCATION SPECIALIST Hospital Encounter Department of Cardiovascular Diseases in [place], [place] [address] [place] [phone] Katja Umana M.D. [address] [place] [phone] Alcoholic Cirrhosis Of Liver With Ascites (HCC) [...] Sex Assigned at Female 10/06/2023 10:50 AM ADAPTIVE PHYSICAL EDUCATION SPECIALIST Gender Identity Female 10/06/2023 10:50 AM ADAPTIVE PHYSICAL EDUCATION SPECIALIST Sexual Orientation Straight 10/06/2023 10 :50 AM ADAPTIVE PHYSICAL EDUCATION SPECIALIST documented as of this encounter Medications [...] Department of Nutrition and Diabetes Education in [place], [place] [address] [place] [phone] Katja Umana M.D. [address] [place] [phone] Taty Cunningham M.S., RDN, LD [address] [place] [phone] 02/04/2024 2:15 PM CDT Appointment Division of Gastroenterology in [place], [place] [address] [place] [phone] Katja Umana M.D. [address] [place] [phone] Hayden Smith M.D. [address] [place] [phone] 03/21/2024 1:00 PM CDT Virtual Visit Department of Nicotine Dependence, [facility], in [place], [place] [address] [place] [phone] documented as of this encounter Procedures Procedure Name Priority Date/Time Associated Diagnosis Comments (TTE) 2D ECHO DOPPLER COLOR AND CONTRAST Routine 10/07/2023 11:01 AM ADAPTIVE PHYSICAL EDUCATION SPECIALIST Alcoholic Cirrhosis Of Liver With Ascites (HCC) documented in this encounter Results * (TTE) 2D ECHO DOPPLER COLOR AND CONTRAST (10/07/2023 11:01 AM ADAPTIVE PHYSICAL EDUCATION SPECIALIST) Ejection Fraction 68 MC CV EIMS [...] Region Laterality Modality Echocardiography 10/07/2023 9:54 AM ADAPTIVE PHYSICAL EDUCATION SPECIALIST Impressions 10/07/2023 11:02 AM ADAPTIVE PHYSICAL EDUCATION SPECIALIST Agitated saline contrast administered. Moderate intrapulmonary [...] the Order-Level Documents. Narrative 10/07/2023 11:02 AM ADAPTIVE PHYSICAL EDUCATION SPECIALIST For the complete report, see the [...] Diagnostic, See Dennys. Given 10/07/2023 10:53 AM ADAPTIVE PHYSICAL EDUCATION SPECIALIST 30 mL sodium chloride 0.9 % injection 10 mL 10 mL, intravenous, As needed, line care, Starting on Dasia 10/07/23 at 1037, Prior to and following infusion and between multiple consecutive infusions: sodium chloride 0.9 % injection Given 10/07/2023 10:53 AM ADAPTIVE PHYSICAL EDUCATION SPECIALIST 10 mL documented in this encounter
--- OUTSIDE RECORDS SUMMARY | 2024-01-11 10:30 | XMS_ITS | Encounter Summary ---
Author Name Unknown Organization [facility] Address [address] [place] [address] Care Team Providers Care Manual Training Teacher Name Role Phone Unavailable Primary Care Provider Unavailabl e Reason for Referral * Outpatient (Routine) - Closed Specialty Diagnoses / Procedures Referred By Delgadoac t Referred To Contact Diagnoses Ascites Procedures US Paracentesis with Imaging Guidance Felipe Morales M.D. 200 [place] [address] [facility] Referral ID Status Reason Start Date Expiration Date Visits Re quested Visits Authorized [id number] Closed 10/11/2023 10/10/2024 1 1 ONAL MERCHANDISING MANAGER * Outpatient (Routine) - Closed Specialty Diagnoses / Procedures Referred By Dotty oakes Referred To Contact Diagnoses Ascites Procedures US Paracentesis with Imaging Guidance Felipe Morales M.D. 200 [place] [phone] [facility] Referral ID Status Reason Start Date Expiration Date Visits Re quested Visits Authorized [id number] Closed 10/11/2023 10/10/2024 1 1 ONAL MERCHANDISING MANAGER Reason for Visit * Reason Onset Date Comments Hepatobiliary 10/08/2023 Ascites elijah Encounter Details Date Type Department Care Team (Latest Contact Info) Description 10/08/2023 Clinical Communication Division of Gastroenterology in [place], [place] [address] [place] [phone] Felipe Morales M.D. 200 [place] [address] Hepatobiliary (Ascites elijah) Social History Tobacco Use Types Packs/Day Years Used Date Smoking Tobacco: Every Day Cigarettes 0.5 40 Smokeless Tobacco: Never Alcohol Use Standard Drinks/Week Comments Not Currently 0 (1 standard drink = 0.6 oz pur e alcohol) [facility] Utilities Answer Date Recorded In the past 12 months has e [employer], gas, oil, or water [employer] threatened to shut off services in your [...] Date Recorded Employment status Working with temporary [employer] tions 10/15/2023 Housing Stability Answer Date Recorded What is your living situation today? I have a [facility] place to live 10/15/2023 Sex and Gender Information Value Date Recorded Sex Assigned at Female 10/06/2023 10:50 AM REGIONAL MERCHANDISING MANAGER Gender Identity Female 10/06/2023 10:50 AM REGIONAL MERCHANDISING MANAGER Sexual Orientation Straight 10/06/2023 10 :50 AM REGIONAL MERCHANDISING MANAGER documented as of this encounter Plan of Treatment Upcoming Encounters Date Type Department Care Team (Late st Contact Info) Description 01/19/2024 10:00 AM CDT Telemedicine Department of Nutrition and Diabetes Education in [place], [place] [address] [place] [phone] Katja Umana M.D. [address] [place] [phone] Taty Cunningham M.S., RDN, LD [address] [place] [phone] 02/04/2024 2:15 PM CDT Appointment Division of Gastroenterology in [place], [place] [address] [place] [phone] Katja Umana M.D. [address] [place] [phone] Hayden Smith M.D. [address] [place] [phone] 03/21/2024 1:00 PM CDT Virtual Visit Department of Nicotine Dependence, [facility], in [place], [place] [address] [place] [phone] documented as of this encounter Results * US Paracentesis with Imaging Guidance (11/19/2023 11:55 AM REGIONAL MERCHANDISING MANAGER) Anatomical Region Laterality Modality Abdomen, Ultrasound RST LOS, Ultrasound ARZ LOS, Procedure FLA LOS, Abdominal FLA LOS, Procedural, Procedural NWWI LOS N/A Ultrasound Impressions 11/19/2023 12:26 PM REGIONAL MERCHANDISING MANAGER Ultrasound-guided paracentesis. EP Narrative 11/19/2023 12:26 PM REGIONAL MERCHANDISING MANAGER EXAM: US PARACENTESIS WITH IMAGING GUIDANCE PRE-PROCEDURE: [...] Paracentesis with Imaging Guidance (11/05/2023 11:25 AM REGIONAL MERCHANDISING MANAGER) Anatomical Region Laterality Modality Abdomen, Ultrasound RST LOS, Ultrasound ARZ LOS, Procedure FLA LOS, Abdominal FLA LOS, Procedural, Procedural NWWI LOS N/A Ultrasound Impressions 11/05/2023 11:28 AM REGIONAL MERCHANDISING MANAGER Ultrasound-guided diagnostic and therapeutic paracentesis. NR Narrative 11/05/2023 11:28 AM REGIONAL MERCHANDISING MANAGER EXAM: US PARACENTESIS WITH IMAGING GUIDANCE PRE-PROCEDURE: [...] lower quadrant peritoneal space. Needle size: 5 Czech centesis catheter. Volume aspirated: 6.8 liters aspirated, [...] lower quadrant peritoneal space. Needle size: 5 Czech centesis catheter. Volume aspirated: 6.8 liters aspirated, [...]
--- OUTSIDE RECORDS SUMMARY | 2024-01-11 10:30 | XMS_ITS | Encounter Summary ---
Author Name Unknown Organization [facility] Address [address] [place] [address] Care Team Providers Care Die Lay Out Worker Name Role Phone Unavailable Primary Care Provider Unavailabl e Reason for Referral * Outpatient (Routine) - Closed Specialty Diagnoses / Procedures Referred By Dotty t Referred To Contact Diagnoses Alcoholic Cirrhosis Of Liver With Ascites (HCC) Procedures US Paracentesis with Imaging Guidance Katja Umana M.D. 200 [place] [phone] [facility] Referral ID Status Reason Start Date Expiration Date Visits Re quested Visits Authorized [id number] Closed 10/06/2023 10/05/2024 1 1 ER ROOM ATTENDANT Reason for Visit * Outpatient (Routine) - Closed Specialty Diagnoses / Procedures Referred By Dotty oakes Referred To Contact Diagnoses Alcoholic Cirrhosis Of Liver With Ascites (HCC) Procedures US Paracentesis with Imaging Guidance Katja Umana M.D. 200 [place] [address] [facility] Referral ID Status Reason Start Date Expiration Date Visits Re quested Visits Authorized [id number] Closed 10/06/2023 10/05/2024 1 1 Encounter Details Date Type Department Care Team (Latest Contact Info) Description 10/08/2023 10:43 AM POWDER ROOM ATTENDANT - 10/08/2023 1:05 PM POWDER ROOM ATTENDANT Hospital Encounter Department of Radiology, [facility] in [place] [address] [place] [address] Katja Umana M.D. [address] [place] [phone] Alcoholic Cirrhosis Of Liver With Ascites (HCC) [...] Sex Assigned at Female 10/06/2023 10:50 AM POWDER ROOM ATTENDANT Gender Identity Female 10/06/2023 10:50 AM POWDER ROOM ATTENDANT Sexual Orientation Straight 10/06/2023 10 :50 AM POWDER ROOM ATTENDANT documented as of this encounter Last Filed Vital Signs Vital Sign Reading Time Taken Comments Blood Pressure 121/63 10/08/2023 12:30 PM POWDER ROOM ATTENDANT Pulse 104 10/08/2023 12:30 PM POWDER ROOM ATTENDANT Temperature 36.5 ??C (97.7 ??F) 10/08/2023 12:[address] Respiratory Rate - - Oxygen Saturation 98% 10/08/2023 12:30 PM POWDER ROOM ATTENDANT Inhaled Oxygen Concentration - - Weight - - Height - - Body Mass Index - - documented in this encounter Discharge Instructions * Attachments The following attachments cannot be sent through Care Everywhere. * Paracentesis (Kenyan) documented in this encounter Medications at Time [...] Department of Nutrition and Diabetes Education in [place], [place] [address] [place] [phone] Katja Umana M.D. [address] [place] [phone] Taty Cunningham M.S., RDN, LD [address] [place] [phone] 02/04/2024 2:15 PM CDT Appointment Division of Gastroenterology in [place], [place] [address] [place] [phone] Katja Umana M.D. [address] [place] [phone] Hayden Smith M.D. [address] [place] [phone] 03/21/2024 1:00 PM CDT Virtual Visit Department of Nicotine Dependence, [facility] in [place], [place] [address] [place] [phone] documented as of this encounter Procedures Procedure Name Priority Date/Time Associated Diagnosis Comments US PARACENTESIS WITH IMAGING GUIDANCE RAD - Routine (most inpatients and all outpatients) 10/08/2023 12:57 PM POWDER ROOM ATTENDANT Alcoholic Cirrhosis Of Liver With Ascites (HCC) PROTEIN, TOTAL, BF Timed 10/08/2023 11 :14 AM POWDER ROOM ATTENDANT BACTERIAL CULTURE, AEROBIC + SUSC Timed 10/08/2023 11:14 AM POWDER ROOM ATTENDANT CELL COUNT AND DIFFERENTIAL, BF Timed 10/08/2023 11:14 AM POWDER ROOM ATTENDANT ALBUMIN, BODY FLUID Timed 10/08/2023 1 1:14 AM POWDER ROOM ATTENDANT documented in this encounter Results * US Paracentesis with Imaging Guidance (10/08/2023 12:57 PM POWDER ROOM ATTENDANT) Anatomical Region Laterality Modality Abdomen, Ultrasound RST LOS, Ultrasound ARZ LOS, Procedure FLA LOS, Abdominal FLA LOS, Procedural, Procedural NWWI LOS N/A Ultrasound Impressions 10/08/2023 1:24 PM POWDER ROOM ATTENDANT Ultrasound-guided paracentesis. EP Narrative 10/08/2023 1:24 PM POWDER ROOM ATTENDANT EXAM: US PARACENTESIS WITH IMAGING GUIDANCE PRE-PROCEDURE: [...] Protein, Total, Body Fluid (10/08/2023 11:14 AM POWDER ROOM ATTENDANT) Protein, Total, BF 0.9 See Comment g/dL 10/08/2023 12:53 PM POWDER ROOM ATTENDANT DTL Comment: ----ADDITIONAL INFORMATION---- A pleural fluid [...] clinical findings. All other fluids refer to www.Fewzions.BigTwist for further interpretive information. This test has been modified from the machine heel seat fitter's instructions. Its performance characteristics were determined by [facility] in a manner consistent with CLIA requirements. This test has not been cleared or approved by the U.S. Food and Drug Administration. Fluid Type, Protein, Total Fluid, Peritoneal Fluid 10/08/2023 11:54 AM POWDER ROOM ATTENDANT DTL Fluid (Peritoneal Fluid) 10/08/2023 11:14 AM POWDER ROOM ATTENDANT 10/08/2023 12:09 PM POWDER ROOM ATTENDANT Katja Umana M.D. LAB BODY FLUIDS AND STOOLS ORDERABLES [facility] [address] [place] [address], [facility] [address] [place] [address] * Albumin, Body Fluid (10/08/2023 11:14 AM POWDER ROOM ATTENDANT) Albumin BF 0.5 See Comment g/dL 10/08/2023 12:53 PM POWDER ROOM ATTENDANT DTL Comment: ----ADDITIONAL INFORMATION---- Peritoneal fluid albumin is used to calculate the serum-ascites albumin gradient (SAAG). Values greater than or equal to 1.1 g/dL suggest portal hypertension. Pleural fluid albumin may be used to calculate a serum-effusion albumin gradient. Values greater than 1.2 g/dL are most consistent with a transudative process. ?? All other fluids refer to www.Fewzions.BigTwist for further interpretive information. This test has been modified from the machine heel seat fitter's instructions. Its performance characteristics were determined by [facility] in a manner consistent with CLIA requirements. This test has not been cleared or approved by the U.S. Food and Drug Administration. Fluid Type, Albumin Fluid, Peritoneal Fluid 10/08/2023 11:54 AM POWDER ROOM ATTENDANT DTL Fluid (Peritoneal Fluid) 10/08/2023 11:14 AM POWDER ROOM ATTENDANT 10/08/2023 12:09 PM POWDER ROOM ATTENDANT Katja Umana M.D. LAB BODY FLUIDS AND STOOLS ORDERABLES [facility] [address] [place] [address], [facility] 200 [place] [address] * Cell Count and Differential, Body Fluid (10/08/2023 11:14 AM POWDER ROOM ATTENDANT) Fluid Type Peritoneal /Paracente sis 10/08/2023 12:06 PM POWDER ROOM ATTENDANT DHPM Gross Appearance Serous 10/08/19 24 12:06 PM POWDER ROOM ATTENDANT DHPM Total Nucleated Cells 187 /mcL 10/08/2023 12:06 PM POWDER ROOM ATTENDANT DHPM Comment: ----REFERENCE VALUE---- Synovial: <150 /mcL Peritoneal: <500 /mcL Pleural: <500 /mcL Pericardial: <500 /mcL ----ADDITIONAL INFORMATION---- This test has been modified from the machine heel seat fitter's instructions. Its performance characteristics were determined by [facility] in a manner consistent with CLIA requirements. This test has not been cleared or approved by the U.S. Food and Drug Administration. Neutrophils 1 % 10/08/2023 12:51 PM POWDER ROOM ATTENDANT DHPM Comment: ----REFERENCE VALUE---- Synovial: <25% Peritoneal: <25% Pleural: <25% Pericardial: <25% Lymphocytes 4 Synovial <75% % 10/08/2023 12:51 PM POWDER ROOM ATTENDANT DHPM Monocytes/Macropha ges 84 Synovial <70% % 10/08/2023 12:51 PM POWDER ROOM ATTENDANT DHPM Other Cells 11 % 10/08/2023 12:51 PM POWDER ROOM ATTENDANT DHPM Comment: ----REFERENCE VALUE---- The reference range and other method performance specifications have not been established for this bodyfluid. The test result must be integrated into the clinical context for interpretation. Other Cells Are: See Comment 10/08/2023 12:51 PM POWDER ROOM ATTENDANT DHPM Comment:Mesothelial cells Comment See Comment 10/08/2023 12:51 PM POWDER ROOM ATTENDANT DHPM Comment:No blasts or maligna nt cells seen. Reviewed by: Jose 10/08/2023 12:51 PM POWDER ROOM ATTENDANT DHPM Fluid (Peritoneal Fluid) 10/08/2023 11:14 AM POWDER ROOM ATTENDANT 10/08/2023 12:01 PM POWDER ROOM ATTENDANT Katja Umana M.D. LAB BODY FLUIDS AND STOOLS ORDERABLES Performing Organization Address City/[facility]/ZIP Co de Phone Number [facility] [address] [place] [address], [facility] [address] [place] [address] * Bacterial Culture, Aerobic + Susceptibility (10/08/2023 11:14 AM POWDER ROOM ATTENDANT) Bacterial Culture, Aerobic + Susc No growth after 5 days of incubation. 10/13/2023 7:58 AM POWDER ROOM ATTENDANT DTL Fluid (Peritoneal Fluid) 10/08/2023 11:14 AM POWDER ROOM ATTENDANT 10/08/2023 2:23 PM POWDER ROOM ATTENDANT Comment:Specimen Source Site : Fluid Narrative [facility] - 10/13/2023 7:58 AM POWDER ROOM ATTENDANT Bacterial Culture: Received Bactec aerobic and Bactec anaerobic bottles Katja Umana M.D. LAB MICROBIOLOGY - G ENERAL ORDERABLES [facility] [address] [place] [address], [facility] [place] DTL [facility] 200 [place] [address] documented in this encounter Visit Diagnoses Diagnosis [...] administer +++ New Bag 10/08/2023 12:23 PM POWDER ROOM ATTENDANT 25 g albumin human 25 % injection Continuous Infusion: Per Instructions PRN, Starting on Wed10/08/23 at 1137, Intra-Op New Bag 10/08/2023 11:37 AM POWDER ROOM ATTENDANT 25 g lidocaine 10 mg/mL (1 %) injection (XYLOCAINE) As needed, Starting on Wed10/08/23 at 1119, Intra-Op Given 10/08/2023 11:19 AM POWDER ROOM ATTENDANT 10 mL documented in this encounter Active and Recently Administered Medications Times are shown in POWDER ROOM ATTENDANT. Scheduled Medication Order 10/06/2023 10/07/2023 10/08/2023 albumin [...]
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
--- OUTSIDE RECORDS SUMMARY | 2024-01-11 10:30 | XMS_ITS | Encounter Summary ---
Author Name Unknown Organization [facility] Address [address] [place] [address] Care Team Providers Care Bioinformatics Research Technician Name Role Phone Unavailable Primary Care Provider Unavailabl e Reason for Referral * Specialty Diagnoses / Procedures Referred By Contlulu t Referred To Contact Ebony Back M.D. [address] [place] [phone] [facility] Referral ID Status Reason Start Date Expiration Date Visits Re quested Visits Authorized Scheduling Instructions Schedule after GIH consult GHT AIR BRAKE FITTER * Outpatient (Routine) - Closed Specialty Diagnoses / Procedures Referred By Contact Referred To Contact Gastroenterology and Hepatology Diagnoses Ascites Alcoholic Cirrhosis Of Liver With Ascites (HCC) Ebony Back M.D. 200 [place] [address] [facility] Referral ID Status Reason Start Date Expiration Date Visits Re quested Visits Authorized [id number] Closed 10/05/2023 04/05/2025 [address] Morales agreed to see GHT AIR BRAKE FITTER Encounter Details Date Type Department Care Team (Late st Contact Info) Description 10/05/2023 Orders Only Department of Oncology in [place], [place] [address] [place] [phone] Ebony Back M.D. [address] [place] [phone] Ascites (Primary Dx); Alcoholic Cirrhosis Of Liver [...] Sex Assigned at Female 10/06/2023 10:50 AM FREIGHT AIR BRAKE FITTER Gender Identity Female 10/06/2023 10:50 AM FREIGHT AIR BRAKE FITTER Sexual Orientation Straight 10/06/2023 10 :50 AM FREIGHT AIR BRAKE FITTER documented as of this encounter Plan of Treatment Upcoming Encounters Date Type Department Care Team (Late st Contact Info) Description 01/19/2024 10:00 AM CDT Telemedicine Department of Nutrition and Diabetes Education in [place], [place] [address] [place] [phone] Katja Umana M.D. [address] [place] [phone] Taty Cunningham M.S., RDN, LD [address] [place] [phone] 02/04/2024 2:15 PM CDT Appointment Division of Gastroenterology in [place], [place] [address] [place] [phone] Katja Umana M.D. [address] [place] [phone] Hayden Smith M.D. [address] [place] [phone] 03/21/2024 1:00 PM CDT Virtual Visit Department of Nicotine Dependence, [facility], in [place], [place] [address] [place] [address] Scheduled Referrals Name Type Priority Associated Diagnoses [...]
--- OUTSIDE RECORDS SUMMARY | 2024-01-11 10:30 | XMS_ITS | Encounter Summary ---
Author Name Unknown Organization [facility] Address [address] [place] [id number] Care Team Providers Care Criminal Investigator Name Role Phone Unavailable Primary Care Provider Unavailabl e Reason for Referral * Outpatient (Routine) - Closed Specialty Diagnoses / Procedures Referred By Dotty oakes Referred To Contact Diagnoses Alcoholic Cirrhosis Of Liver With Ascites (HCC) Procedures EGD (EsophagoGastroDuodenoscopy) Restricted Katja Umana M.D. 200 [place] [phone] [facility] Referral ID Status Reason Start Date Expiration Date Visits Re quested Visits Authorized [id number] Closed 10/06/2023 10/05/2024 1 1 ULTING IT ARCHITECT Reason for Visit * Outpatient (Routine) - Closed Specialty Diagnoses / Procedures Referred By Dotty oakes Referred To Contact Diagnoses Alcoholic Cirrhosis Of Liver With Ascites (HCC) Procedures EGD (EsophagoGastroDuodenoscopy) Restricted Katja Umana M.D. 200 [place] [address] [facility] Referral ID Status Reason Start Date Expiration Date Visits Re quested Visits Authorized [id number] Closed 10/06/2023 10/05/2024 1 1 Encounter Details Date Type Department Care Team (Latest Contact Info) Description 10/08/2023 1:09 PM CONSULTING IT ARCHITECT - 10/08/2023 4:27 PM CONSULTING IT ARCHITECT Hospital Encounter Division of Gastroenterology in [place], [place] [address] [place] [phone] Katja Umana M.D. [address] [place] [address] Alcoholic Cirrhosis Of Liver With Ascites (HCC) [...] Sex Assigned at Female 10/06/2023 10:50 AM CONSULTING IT ARCHITECT Gender Identity Female 10/06/2023 10:50 AM CONSULTING IT ARCHITECT Sexual Orientation Straight 10/06/2023 10 :50 AM CONSULTING IT ARCHITECT documented as of this encounter Last Filed Vital Signs Vital Sign Reading Time Taken Comments Blood Pressure 120/74 10/08/2023 4:11 PM CONSULTING IT ARCHITECT Pulse 112 10/08/2023 4:16 PM CONSULTING IT ARCHITECT Temperature 37.1 ??C (98.8 ??F) 10/08/2023 3:49 PM CS T Respiratory Rate 24 10/08/2023 4:16 PM CONSULTING IT ARCHITECT Oxygen Saturation 93% 10/08/2023 4:16 PM CONSULTING IT ARCHITECT Inhaled Oxygen Concentration - - Weight 57.2 kg (126 lb) 10/08/2023 2:23 PM CONSULTING IT ARCHITECT Height 169.1 cm (5' 6.58) 10/08/2023 2:23 PM CS T Body Mass Index 19.99 10/08/2023 2:23 PM CONSULTING IT ARCHITECT documented in this encounter Discharge Instructions * Discharge Instructions* Refugio Martinez R.N. - 10/08/2023 4:02 PM CONSULTING IT ARCHITECT Full Liquid Diet for today (10/08) With [...] nuts, hard fruit pieces, soft breadsticks, pancake, Divehi toast, potatoes, white rice. Soft, cooked vegetables, white or sweet potatoes without skin, Divehi fries, hash browns, vegetablejuices. Cooked or canned fruit. Gelatin, ice cream without nuts, pudding, cake, tender pies, cookies, bars without nuts, seeds and coconut, fruit ice. Sugar, honey, jelly, candy without nuts or coconut. Supplements without fiber. Mild seasonings and mild condiments. ULTING IT ARCHITECT documented in this encounter Medications at Time [...] Department of Nutrition and Diabetes Education in [place], [place] [address] [place] [phone] Katja Umana M.D. [address] [place] [phone] Taty Cunningham M.S., RDN, LD [address] [place] [phone] 02/04/2024 2:15 PM CDT Appointment Division of Gastroenterology in [place], [place] [address] [place] [phone] Katja Umana M.D. [address] [place] [phone] Hayden Smith M.D. [address] [place] [phone] 03/21/2024 1:00 PM CDT Virtual Visit Department of Nicotine Dependence, [facility], in [place], [place] [address] [place] [phone] documented as of this encounter Procedures Procedure Name Priority Date/Time Associated Diagnosis Comments EGD (ESOPHAGOGASTRODUODE NOSCOPY) RESTRICTED Routine 10/08/2023 3:17 PM CONSULTING IT ARCHITECT Alcoholic Cirrhosis Of Liver With Ascites (HCC) UPPER GI ENDOSCOPY Routine 10/08/2023 3: 17 PM CONSULTING IT ARCHITECT Alcoholic Cirrhosis Of Liver With Ascites (HCC) documented in this encounter Results * Upper GI Endoscopy (10/08/2023 3:17 PM CONSULTING IT ARCHITECT) 10/08/2023 3:17 PM CONSULTING IT ARCHITECT Impressions [facility] - 10/08/2023 3:53 PM CONSULTING IT ARCHITECT Post-op Diagnoses: ? 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 ? - Mild portal hypertensive gastropathy. ? - Normal examined duodenum. ? - No specimens collected. Narrative [facility] - 10/08/2023 3:53 PM CONSULTING IT ARCHITECT Scot 6 GI GI Patient Name: Monique [...] GI PROCEDURE ORDERAB LES Performing Organization Address City/State/[facility] Co or Phone Number [facility] documented in this encounter Visit Diagnoses Diagnosis Alcoholic Cirrhosis Of Liver With Ascites (HCC) documented in this encounter Administered Medications documented in this encounter Active and Recently Administered Medications Times are shown in CONSULTING IT ARCHITECT. Continuous Medication Order 10/06/2023 10/07/2023 10/08/2023 Lactated [...]
--- OUTSIDE RECORDS SUMMARY | 2024-01-11 10:30 | XMS_ITS | Encounter Summary ---
Author Name Unknown Organization [facility] Address [address] [place] [phone] Care Team Providers Care Media Reporter Name Role Phone Unavailable Primary Care Provider Unavailabl e Reason for Referral * Outpatient (Routine) - Closed Specialty Diagnoses / Procedures Referred By Contac t Referred To Contact Diagnoses Alcoholic Cirrhosis Of Liver With Ascites (HCC) Procedures DX Chest AP or PA and Lateral 2 Views Katja Umana M.D. [address] [place] [phone] [facility] Referral ID Status Reason Start Date Expiration Date Visits Re quested Visits Authorized [id number] Closed 10/06/2023 10/05/2024 1 1 ECTOR SEMICONDUCTOR WAFER Reason for Visit * Outpatient (Routine) - Closed Specialty Diagnoses / Procedures Referred By Dotty oakes Referred To Contact Diagnoses Alcoholic Cirrhosis Of Liver With Ascites (HCC) Procedures DX Chest AP or PA and Lateral 2 Views Katja Umana M.D. 200 [place] [phone] [facility] Referral ID Status Reason Start Date Expiration Date Visits Re quested Visits Authorized [id number] Closed 10/06/2023 10/05/2024 1 1 Encounter Details Date Type Department Care Team (Latest Contact Info) Description 10/06/2023 12:45 PM INSPECTOR SEMICONDUCTOR WAFER - 10/06/2023 11:59 PM INSPECTOR SEMICONDUCTOR WAFER Hospital Encounter Department of Radiology, [facility], in [place], [place] [address] [place] [phone] Katja Umana M.D. [address] [place] [phone] Alcoholic Cirrhosis Of Liver With Ascites (HCC) [...] Sex Assigned at Female 10/06/2023 10:50 AM INSPECTOR SEMICONDUCTOR WAFER Gender Identity Female 10/06/2023 10:50 AM INSPECTOR SEMICONDUCTOR WAFER Sexual Orientation Straight 10/06/2023 10 :50 AM INSPECTOR SEMICONDUCTOR WAFER documented as of this encounter Medications at [...] Department of Nutrition and Diabetes Education in [place], [place] [address] [place] [phone] Katja Umana M.D. [address] [place] [phone] Taty Cunningham M.S., RDN, LD [address] [place] [phone] 02/04/2024 2:15 PM CDT Appointment Division of Gastroenterology in [place], [place] [address] [place] [phone] Katja Umana M.D. [address] [place] [phone] Hayden Smith M.D. [address] [place] [phone] 03/21/2024 1:00 PM CDT Virtual Visit Department of Nicotine Dependence, [facility], in [place], [place] [address] [place] [phone] documented as of this encounter Procedures Procedure Name Priority Date/Time Associated Diagnosis Comments DX CHEST AP OR PA AND LATERAL 2 VIEWS RAD - Routine (most inpatients and all outpatients) 10/06/2023 1:32 PM INSPECTOR SEMICONDUCTOR WAFER Alcoholic Cirrhosis Of Liver With Ascites (HCC) documented in this encounter Results * DX Chest AP or PA and Lateral 2 Views (10/06/2023 1:32 PM INSPECTOR SEMICONDUCTOR WAFER) Anatomical Region Laterality Modality Chest, Thoracic RST LOS, Tho racic ARZ LOS, Thoracic FLA LOS N/A Digital Radiography Impressions 10/06/2023 1:35 PM INSPECTOR SEMICONDUCTOR WAFER Shallow inspiration. New focal predominantly linear opacity [...] bilateral apical scarring. Narrative 10/06/2023 1:35 PM INSPECTOR SEMICONDUCTOR WAFER EXAM: ??DX CHEST AP OR PA AND [...] Mild bilateral apical scarring. Katja Umana M.D. [facility]AG[facility] NG PROCEDURES documented in this encounter Visit Diagnoses Diagnosis Alcoholic Cirrhosis Of Liver With Ascites (HCC) documented in this encounter
--- OUTSIDE RECORDS SUMMARY | 2024-01-11 10:30 | XMS_ITS | Encounter Summary ---
Author Name Unknown Organization [facility] Address [address] [place] [phone] Care Team Providers Care Automotive Service Management Teacher Name Role Phone Unavailable Primary Care Provider Unavailabl e Reason for Visit * Reason Comments Nurse Visit Education Cirrhosis Encounter Details Date Type Department Care Team ([facility] st Contact Info) Description 10/06/2023 2:00 PM SKI TOPPER Education Division of Gastroenterology in [place], [place] [address] [place] [phone] Ebony Back M.D. [address] [place] [phone] Leatha Reid R.N. [address] [place] [phone] Ascites; Alcoholic Cirrhosis Of Liver With Ascites [...] Sex Assigned at Female 10/06/2023 10:50 AM SKI TOPPER Gender Identity Female 10/06/2023 10:50 AM SKI TOPPER Sexual Orientation Straight 10/06/2023 10 :50 AM SKI TOPPER documented as of this encounter Progress Notes * Leatha Reid R.N. - 10/06/2023 2:00 PM CST Education provided on cirrhosis, portal hypertension, hepatic encephalopathy, ascites. See Education History Report within medical record for more details. Timo present. Prefers labs at [facility], if needed. TOPPER documented in this encounter Plan of Treatment Upcoming Encounters Date Type Department Care Team (Late st Contact Info) Description 01/19/2024 10:00 AM CDT Telemedicine Department of Nutrition and Diabetes Education in [place], [place] [address] [place] [phone] Katja Umana M.D. [address] [place] [phone] Taty Cunningham M.S., RDN, LD [address] [place] [phone] 02/04/2024 2:15 PM CDT Appointment Division of Gastroenterology in [address] [phone] Katja Umana M.D. [address] [place] [phone] Hayden Smith M.D. [address] [place] [phone] 03/21/2024 1:00 PM CDT Virtual Visit Department of Nicotine Dependence, [facility], in [place], [place] [address] [place] [phone] documented as of this encounter Visit Diagnoses Diagnosis Ascites Alcoholic Cirrhosis Of Liver With Ascites (HCC) documented in this encounter
[2024-01-11 10:49] VITALS: BP 123/57; PULSE 89; RESP 20; O2SAT 100
--- NOTE | 2024-01-11 11:54 | P.PARA_ITS ---
Paracentesis Date Date: 01/11/24 Procedure Note Procedure: Paracentesis with Ultrasound Guidance Type of paracentesis: Therapeutic Initial or Repeat?: Repeat Surgeon: Oliva Arellano Indications: 63-year-old female with history of alcoholic liver cirrhosis presents with recurrent ascites. Patient had her last paracentesis on 12/28/23 with 5.3 L of fluid removed. She received 2 bottles of albumin. Patient complained of abdominal discomfort and tightness, she is having difficulty taking a deep breath and speaking. She is also having difficulty walking due to ascites. Patient's INR was checked today and was 1.5. Labs and Cytology Sent:: No Albumin infused: Yes (Two bottles of 25% albumin.) Procedure Note:: Prior to the procedure, the risks and benefits of the procedure were discussed and an informed consent was obtained. Patient identification was confirmed and TIME OUT was performed. An ultrasound was brought onto the field and an easily accessible pocket of ascites was identified that was away from intraabdominal organs. The patient's abdomen in the left lower quadrant was prepped and draped in the usual sterile fashion. 1% Lidocaine was used to anesthetize the skin, soft tissues and peritoneum over the proposed needle insertion site. A skin inc ision was made with a scalpel just large enough to fit the needle. The needle with the paracentesis catheter was advanced into the abdomen and ascitic fluid was aspirated into the syringe. The needle was then withdrawn and the catheter was left in place. The catheter was then connected to the drainage tubing.6 Liters of straw colored fluid was drained. This was not sent to pathology. Post procedure ultrasound revealed minimal residual ascitic fluid. The catheter was then removed and the skin was closed with Dermabond. Patient tolerated procedure well and there were no immediate complications. Patient's vital signs were stable throughout the procedure. Recomendation: Discharge to home (ambulatory) and return to normal activities tomorrow. Follow up with referring provider as needed.
[2024-01-11 11:57] VITALS: BP 125/52; PULSE 70; RESP 18; O2SAT 98
[2024-01-11 12:14] VITALS: BP 108/54; PULSE 80; RESP 18; O2SAT 100
== END 2024-01-11 12:15 | disposition home or self-care (01) ==
LOC: US 10:24 → OP CLINIC 10:27
PROVIDERS: PCP Family Medicine; Visit Provider Surgery
DX: K70.31 Alcoholic cirrhosis of liver with ascites (principal); R18.8 Other ascites
CPT/HCPCS: 49083; P9047

== ENCOUNTER 2024-01-21 09:00 | Outpatient (RCR) | payer BC, SELFPAY | END 2024-02-11 09:30 | disposition home or self-care (01) | PROVIDERS: PCP Family Medicine; Referring Provider Family Medicine; Visit Provider Family Medicine | DX: D64.9 Anemia, unspecified (principal); K70.31 Alcoholic cirrhosis of liver with ascites; R53.1 Weakness; R26.89 Other abnormalities of gait and mobility; Z51.89 Encounter for other specified aftercare | CPT/HCPCS: 97110; 97162 ==

== ENCOUNTER 2024-01-27 06:59 | Outpatient (CLI) | payer BC, SELFPAY ==
--- OUTSIDE RECORDS SUMMARY | 2024-01-27 07:00 | XMS_ITS | Referral Summary ---
Author Name Unknown Organization [facility] Address [address] [place] [address] Care Team Providers Care Technician Support Association Name Role Phone Elsewhere, Pcp Primary Care Provider Unavailabl e Source Comments Patient records contain information from all sites at [facility]. For routine questions regarding patient records, call [phone] during business hours, M-F 8:00 AM - 5:00 PM Central Time. Record requests for emergency care only can be directed to [phone] at any time.[facility] Encounters Date Type Department Care Team Description 01/25/2024 Clinical Communication Division of Gastroenterology in [place], [place] [address] [place] [address] Katja Umana M.D. 01/14/2024 Clinical Communication Division of Gastroenterology in [place], [place] [address] [place] [address] Katja Umana M.D. 12/29/2023 Clinical Communication [facility] [place], [place] [address] [place] [address] Katja Umana M.D. Phone Contact (Friends and family authorization ) 12/28/2023 Clinical Communication Division of Gastroenterology in [place], [place] [address] [place] [address] Katja Umana M.D. 12/21/2023 Clinical Communication [facility] [place], [place] [address] [place] [address] Katja Umana M.D. 12/20/2023 Orders Only Department of Nicotine Dependence, [facility], in [place], [place] [address] [place] [phone] Sudha Bernstein M.A., Jerome., C.T.T.S. 12/20/2023 Clinical Communication Division of Gastroenterology in [address] [address] Katja Umana M.D. Scheduling 12/20/2023 2:00 PM CDT Virtual Visit Department of Nicotine Dependence, [facility] in [place], [place] [address] [place] [phone] Sudha Bernstein M.A., Jerome., C.T.T.S. Nicotine Dependence Cigarettes With Withdrawal (Primary Dx) 12/16/2023 9:34 AM CDT - 12/16/2023 11:22 AM CDT Hospital Encounter Department of Radiology, [facility] in [address] [address] Katja Umana M.D. Alcoholic Cirrhosis Of Liver With Ascites (HCC); Ascites Discharge Disposition: Home or Self Care 12/09/2023 4:30 PM CDT Office Visit [facility] in [address] [address] Katja Umana M.D. Olson, Jody C, M.D. Alcoholic Cirrhosis Of Liver With Ascites (HCC) (Primary Dx); Ascites; Sarcopenia 12/08/2023 10:30 AM CDT Comprehensive Visit Section of Infectious Diseases in [address] [address] Katja Umana M.D. Brianna Anglin APRN, C.N.P., D.N.P. 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 Order Request 11/19/2023 10:08 AM AVIATION SAFETY INSPECTOR - 11/19/2023 12:51 PM AVIATION SAFETY INSPECTOR Hospital Encounter Department of Radiology, [facility] in [address] [address] Felipe Morales M.D. Ascites Discharge Disposition: Home or Self Care 11/18/2023 Orders Only Department of Nicotine Dependence, [address] [address] Sudha Bernstein M.A., Yesy.I.C.S.W., C.T.T.S. 11/18/2023 11:00 AM AVIATION SAFETY INSPECTOR Virtual Visit Department of Nicotine Dependence, [place], [place] [address] [place] [phone] Sudha Bernstein M.A., L.I.C.S.W., C.T.T.S. Nicotine Dependence Cigarettes With Withdrawal (Primary Dx) 11/11/2023 Orders Only Department of Nicotine Dependence, [address] [address] Sudha Bernstein M.A., L.I.C.S.W., C.T.T.S. 11/11/2023 Clinical Communication Department of Nicotine Dependence, [place], [place] [address] [place] [phone] Sudha Bernstein M.A., L.I.C.S.W., C.T.T.S. [facility] Med Request 11/11/2023 11:00 AM AVIATION SAFETY INSPECTOR Virtual Visit Department of Nicotine Dependence, [place], [place] [address] [place] [phone] Sudha Bernstein M.A., L.I.C.S.W., C.T.T.S. Nicotine Dependence Cigarettes With Withdrawal (Primary Dx) 11/05/2023 9:29 AM AVIATION SAFETY INSPECTOR - 11/05/2023 12:20 PM [facility] Hospital Encounter Department of Radiology, [facility], in [place], [place] [address] [place] [address] Felipe Morales M.D. Ascites Discharge Disposition: Home or Self Care 11/01/2023 12:28 PM AVIATION SAFETY INSPECTOR - 11/01/2023 11:59 PM [facility] Hospital Encounter Department of Laboratory Medicine in [address] [address] Katja Umana M.D. Alcoholic Cirrhosis Of Liver With Ascites (HCC) Discharge Disposition: Home or Self Care from Last 3 Months Allergies No known [...] day before breakfast and dinner. 12/06/2023 Active rifAXIMin (XIFAXAN) 550 mg tablet Take 1 tablet (550 mg total) by mouth 2 (two) times a day. 60 tablet 2 12/09/2023 03/08/2024 Active lactulose (CHRONULAC) 10 gram/15 mL solution Take 30 mL (20 g total) by mouth 2 (two) times a day. Take and titrate to goal 2-3 loose bowel movements daily. 946 mL 2 01/14/2024 Active lactulose (CHRONULAC) 10 gram/15 mL solution Take 30 mL (20 g total) by mouth 2 (two) times a day. Take and titrate to goal 2-3 loose bowel movements daily. 946 mL 2 12/09/2023 01/14/2024 Discontinue d(Reorder) Active Problems Problem Noted Date Diagnosed Date [...] Date Smoking Tobacco: Every Day Cigarettes 0.5 41 Started: 02/11/1983 Passive Smoke Exposure: Never Smokeless Tobacco: Never Alcohol Use Standard Drinks/Week Comments Not Currently 0 (1 standard drink = 0.6 oz pur e alcohol) [facility] Utilities Answer Date Recorded In the past 12 months has e [employer], gas, oil, or water [employer] threatened to shut off services in your [...] Date Recorded Employment status Working with temporary [employer] 10/15/2023 Housing Stability Answer Date Recorded What is your living situation today? I have a [facility] place to live 10/15/2023 Sex and Gender Information Value Date Recorded Sex Assigned at Female 10/06/2023 10:50 AM AVIATION SAFETY INSPECTOR Gender Identity Female 10/06/2023 10:50 AM AVIATION SAFETY INSPECTOR Sexual Orientation Straight 10/06/2023 10 :50 AM AVIATION SAFETY INSPECTOR Last Filed Vital Signs Vital Sign Reading Time Taken Comments Blood Pressure 101/47 12/16/2023 10:52 AM CDT Pulse 77 12/16/2023 10:30 AM CDT Temperature 34.7 ??C (94.5 ??F) 12/09/2023 4:21 PM CD T Respiratory Rate 24 10/08/2023 4:16 PM AVIATION SAFETY INSPECTOR Oxygen Saturation 100% 12/16/2023 10:30 AM CDT Inhaled Oxygen Concentration - - Weight 51.2 kg (112 lb 14 oz) 12/09/2023 4:21 PM CDT Height 166.6 cm (5' 5.59) 12/09/2023 4:21 PM CD T Body Mass Index 18.45 12/09/2023 4:21 PM CDT Plan of Treatment Upcoming Encounters Date Type Department Care Team (Late st Contact Info) Description 02/04/2024 2:15 PM CDT Appointment Division of Gastroenterology in [place], [place] [address] [place] [address] Katja Umana M.D. [address] [place] [phone] Hayden Smith M.D. [address] [place] [address] 03/21/2024 1:00 PM CDT Virtual Visit Department of Nicotine Dependence, [facility] in [place], [place] [address] [place] [address] Procedures Procedure Name Priority Date/Time Associated Diagnosis Comments US PARACENTESIS WITH IMAGING GUIDANCE RAD - Routine (most inpatients and all outpatients) 12/16/2023 10:53 AM CDT Alcoholic Cirrhosis Of Liver With Ascites (HCC) Ascites PROTHROMBIN TIME (PT), P Routine 12/09/2023 5:16 PM CDT Alcoholic Cirrhosis Of Liver With Ascites (HCC) COMPREHENSIVE METABOLIC PANEL, S/P Routine 12/09/2023 5:16 PM CDT Alcoholic Cirrhosis Of Liver With Ascites (HCC) CBC WITH DIFFERENTIAL, B Routine 12/09/2023 5:16 PM CDT Alcoholic Cirrhosis Of Liver With Ascites (HCC) US PARACENTESIS WITH IMAGING GUIDANCE RAD - Routine (most inpatients and all outpatients) 11/19/2023 11:55 AM AVIATION SAFETY INSPECTOR Ascites CELL COUNT AND DIFFERENTIAL, BF Timed 11/19/2023 10:50 AM AVIATION SAFETY INSPECTOR Ascites BACTERIAL CULTURE, AEROBIC + SUSC Timed 11/19/2023 10:50 AM AVIATION SAFETY INSPECTOR Ascites US PARACENTESIS WITH IMAGING GUIDANCE RAD - Routine (most inpatients and all outpatients) 11/05/2023 11:25 AM AVIATION SAFETY INSPECTOR Ascites CELL COUNT AND DIFFERENTIAL, BF Timed 11/05/2023 10:07 AM AVIATION SAFETY INSPECTOR Ascites BACTERIAL CULTURE, AEROBIC + SUSC Timed 11/05/2023 10:07 AM AVIATION SAFETY INSPECTOR Ascites BASIC METABOLIC PANEL, S/P Routine 11/01/2023 12:49 PM AVIATION SAFETY INSPECTOR Alcoholic Cirrhosis Of Liver With Ascites (HCC) HCV AB SCRN W/REFLEX TO HCV PCR, S Routine 10/06/2023 12:17 PM AVIATION SAFETY INSPECTOR Alcoholic Cirrhosis Of Liver With Ascites (HCC) COLONOSCOPY Routine 10/10/2015 2:45 PM AVIATION SAFETY INSPECTOR from Last 3 Months or Most Recently Relevant to Health Maintenance Results * US Paracentesis with Imaging Guidance (12/16/2023 10:53 AM CDT) Only the most recent of3 resultswithin the time period is included. Anatomical [...] CDT Katja Umana M.D. LAB BLOOD ADD-ON [address] [id number] DTL [facility] [address] [place] [address] * (ABNORMAL) CBC with Differential, Blood (12/09/2023 5:16 PM CDT) [facility] Hemoglobin 8.3(L) 11.6 - 15.0 g/dL [...] 5:16 PM CDT 12/09/2023 5:39 PM CDT Kataj Umana M.D. LAB BLOOD ADD-ON [facility] [address] [place] [address], [place] DTL [facility] [address] [place] [address] [facility] [address] [place] [address] * (ABNORMAL) Comprehensive Metabolic Panel (12/09/2023 5:16 PM CDT) [facility] Potassium, S 5.0 3.6 - 5.2 [...] M.D. LAB BLOOD ADD-ON Performing Organization Address City/[facility]/ZIP Co de Phone Number [facility] [address] [place] [address], [facility] [address] [place] [address] * Bacterial Culture, Aerobic + Susceptibility (11/19/2023 10:50 AM AVIATION SAFETY INSPECTOR) Only the most recent of2 resultswithin the time period is included. Bacterial Culture, Aerobic + Susc No growth after 5 days of incubation. 11/24/2023 8:27 AM CDT DTL Fluid (Peritoneal Fluid) 11/19/2023 10:50 AM AVIATION SAFETY INSPECTOR Narrative [facility] - 11/24/2023 8:27 AM CDT Bacterial Culture: Received Bactec aerobic and Bactec anaerobic bottles Felipe Morales M.D. LAB MICROBIOLOGY - GENERAL ORDERABLES Performing Organization Address City/[facility]/ZIP Co de Phone Number [facility] [address] [place] [address], [facility] [address] [place] [address] * Cell Count and Differential, Body Fluid (11/19/2023 10:50 AM AVIATION SAFETY INSPECTOR) Only the most recent of2 resultswithin the time period is included. Fluid Type Peritoneal /Paracente sis 11/19/2023 12:39 PM AVIATION SAFETY INSPECTOR DHPM Gross Appearance Serous 11/19/19 24 12:39 PM AVIATION SAFETY INSPECTOR DHPM Total Nucleated Cells 201 /mcL 11/19/2023 12:39 PM AVIATION SAFETY INSPECTOR [facility]PM Comment: ----REFERENCE VALUE---- Synovial: <150 /mcL Peritoneal: <500 /mcL Pleural: <500 /mcL Pericardial: <500 /mcL ----ADDITIONAL INFORMATION---- This test has been modified from the supervisor inspecting's instructions. Its performance characteristics were determined by [facility] in a manner consistent with CLIA requirements. This test has not been cleared or approved by the U.S. Food and Drug Administration. Neutrophils 20 % 11/19/2023 1:42 PM AVIATION SAFETY INSPECTOR DHPM Comment: ----REFERENCE VALUE---- Synovial: <25% Peritoneal: <25% Pleural: <25% Pericardial: <25% Lymphocytes 16 Synovial <75% % 11/19/2023 1:42 PM AVIATION SAFETY INSPECTOR [facility]PM Monocytes/Macropha ges 60 Synovial <70% % 11/19/2023 1:42 PM AVIATION SAFETY INSPECTOR DHPM Other Cells 4 % 11/19/2023 1:42 PM AVIATION SAFETY INSPECTOR [facility]PM Comment: ----REFERENCE VALUE---- The reference range and other method performance specifications have not been established for this bodyfluid. The test result must be integrated into the clinical context for interpretation. Other Cells Are: See Comment 11/19/2023 1:42 PM AVIATION SAFETY INSPECTOR [facility]PM Comment:Mesothelial cells Comment See Comment 11/19/2023 1:42 PM AVIATION SAFETY INSPECTOR DHPM Comment:No blasts or maligna nt cells seen. Reviewed by: Jose 11/19/2023 1:42 PM AVIATION SAFETY INSPECTOR [facility]PM Fluid (Peritoneal Fluid) 11/19/2023 10:50 AM AVIATION SAFETY INSPECTOR Felipe Morales M.D. LAB BODY FLUIDS AND STOOLS ORDERABLES [facility] [address] [place] [address], [facility] [address] [place] [address] * (ABNORMAL) Basic Metabolic Panel (11/01/2023 12:49 PM AVIATION SAFETY INSPECTOR) Potassium, P 4.1 3.6 - 5.2 mmol/L 11/01/2023 1:13 PM AVIATION SAFETY INSPECTOR CNFL Sodium, P 128(L) 135 - 145 mmol/L 11/01/2023 1:13 PM AVIATION SAFETY INSPECTOR CNFL Chloride, P 95(L) 98 - 107 mmol/L 11/01/2023 1:13 PM AVIATION SAFETY INSPECTOR CNFL Bicarbonate, P 26 22 - 29 mmol/L 11/01/2023 1:13 PM AVIATION SAFETY INSPECTOR CNFL Anion Gap, P 7 7 - 15 11/01/2023 1:13 PM AVIATION SAFETY INSPECTOR CNFL BUN (Blood Urea Nitrogen), P 10 6 - 21 mg/dL 11/01/2023 1:13 PM AVIATION SAFETY INSPECTOR CNFL Creatinine 0.42(L) 0.59 - 1.04 mg/dL 11/01/2023 1:13 PM AVIATION SAFETY INSPECTOR CNFL Estimated GFR (eGFR) >90 >=60 mL/min/BSA 11/01/2023 1:13 PM AVIATION SAFETY INSPECTOR CNFL Comment: Estimated GFR calculated using the 2020 CKD_EPI creatinine equation. Calcium, Total, P 8.3(L) 8.8 - 10.2 mg/dL 11/01/2023 1:13 PM AVIATION SAFETY INSPECTOR CNFL Glucose, P 105 70 - 140 mg/dL 11/01/2023 1:13 PM AVIATION SAFETY INSPECTOR CNFL Blood (Blood, Venous) 11/01/2023 12:49 PM AVIATION SAFETY INSPECTOR 11/01/2023 12:54 PM AVIATION SAFETY INSPECTOR Katja Umana M.D. LAB BLOOD ADD-ON Performing Organization Address [facility]/State/ZIP Co de Phone Number [facility] [address] [place] [address], [facility] in [address] [address] * HCV Ab Scrn w/Reflex to HCV PCR, Serum (10/06/2023 12:17 PM AVIATION SAFETY INSPECTOR) HCV Ab Screen, S Negative Negative 10/06/2023 9:12 PM AVIATION SAFETY INSPECTOR [facility] Comment:Qdaklu-yl-[id number] rat io is <1.00. Blood (Blood, Venous) 10/06/2023 12:17 PM AVIATION SAFETY INSPECTOR 10/06/2023 3:57 PM AVIATION SAFETY INSPECTOR Katja Umana M.D. LAB MICROBIOLOGY - B LOOD ORDERABLES [facility] [address] [place] [address] [facility] [address] [place] [address] * Colonoscopy (10/10/2015 2:45 PM AVIATION SAFETY INSPECTOR) 10/10/2015 2:45 PM AVIATION SAFETY INSPECTOR Tanner Calderón GI PROCEDURE ORDE АНДРЕЙ [facility] [address] [place] [address], [facility] from Last 3 Months or Most Recently Relevant to Health Maintenance Care Teams Technician Support Association Relationship Specialty Start Date End Date Elsewhere, Pcp PCP - General Family Medicine 12/07/23
--- OUTSIDE RECORDS SUMMARY | 2024-01-27 07:00 | XMS_ITS | Encounter Summary ---
Author Name Unknown Organization [facility] Address [address] [place] [address] Care Team Providers Care Inspecting Machine Adjuster Name Role Phone Elsewhere, Pcp Primary Care Provider Unavailabl e Encounter Details Date Type Department Care Team (Latest Contact Info) Description 01/14/2024 Clinical Communication Division of Gastroenterology in [place], [place] [address] [place] [address] Katja Umana M.D. [address] [place] [address] Social History Tobacco Use Types Packs/Day Years Used Date Smoking Tobacco: Every Day Cigarettes 0.5 41 Started: 02/11/1983 Passive Smoke Exposure: Never Smokeless Tobacco: Never Alcohol Use Standard Drinks/Week Comments Not Currently 0 (1 standard drink = 0.6 oz pur e alcohol) [facility] Utilities Answer Date Recorded In the past 12 months has [facility] [employer], gas, oil, or water [employer] threatened to shut off services in your [...] Date Recorded Employment status Working with temporary [employer] 10/15/2023 Housing Stability Answer Date Recorded What is your living situation today? I have a [facility] place to live 10/15/2023 Sex and Gender Information Value Date Recorded Sex Assigned at Female 10/06/2023 10:50 AM HIGH SCHOOL BUSINESS TEACHER Gender Identity Female 10/06/2023 10:50 AM HIGH SCHOOL BUSINESS TEACHER Sexual Orientation Straight 10/06/2023 10 :50 AM HIGH SCHOOL BUSINESS TEACHER documented as of this encounter Plan of Treatment Upcoming Encounters Date Type Department Care Team (Late st Contact Info) Description 02/04/2024 2:15 PM CDT Appointment Division of Gastroenterology in [place], [place] [address] [place] [phone] Katja Umana M.D. [address] [place] [phone] Hayden Smith M.D. [address] [place] [phone] 03/21/2024 1:00 PM CDT Virtual Visit Department of Nicotine Dependence, [facility], in [place], [place] [address] [place] [phone] documented as of this encounter Visit Diagnoses Not on filedocumented in this encounter Additional Health Concerns Assessment Noted Time PHQ-9 Depression Total Score: 3 10/20/19 24 7:30 AM HIGH SCHOOL BUSINESS TEACHER documented as of this encounter Care Teams Inspecting Machine Adjuster Relationship Specialty Start Date End Date Elsewhere, Pcp PCP - General Family Medicine 12/07/23 documented as of this encounter
--- OUTSIDE RECORDS SUMMARY | 2024-01-27 07:00 | XMS_ITS | Encounter Summary ---
Author Name Unknown Organization [facility] Address [address] [place] [address] Care Team Providers Care Jack Prizer Name Role Phone Elsewhere, Pcp Primary Care Provider Unavailabl e Reason for Visit * Reason Onset Date Comments Phone Contact 12/29/2023 Friends and fami ly authorization Encounter Details Date Type Department Care Team (Latest Contact Info) Description 12/29/2023 Clinical Communication [facility] in [place], [place] [address] [place] [address] Katja Umana M.D. [address] [place] [address] Phone Contact (Friends and family authorization ) Social History Tobacco Use Types Packs/Day Years Used Date Smoking Tobacco: Every Day Cigarettes 0.5 41 Started: 02/11/1983 Passive Smoke Exposure: Never Smokeless Tobacco: Never Alcohol Use Standard Drinks/Week Comments Not Currently 0 (1 standard drink = 0.6 oz pur e alcohol) [facility] Utilities Answer Date Recorded In the past 12 months has e [employer], gas, oil, or water [employer] threatened to shut off services in your [...] Date Recorded Employment status Working with temporary [employer] 10/15/2023 Housing Stability Answer Date Recorded What is your living situation today? I have a [facility] place to live 10/15/2023 Sex and Gender Information Value Date Recorded Sex Assigned at Female 10/06/2023 10:50 AM PERSONNEL GENERALIST MANAGER Gender Identity Female 10/06/2023 10:50 AM PERSONNEL GENERALIST MANAGER Sexual Orientation Straight 10/06/2023 10 :50 AM PERSONNEL GENERALIST MANAGER documented as of this encounter Plan of Treatment Upcoming Encounters Date Type Department Care Team (Late st Contact Info) Description 02/04/2024 2:15 PM CDT Appointment Division of Gastroenterology in [place], [place] [address] [place] [address] Katja Umana M.D. [address] [place] [address] Hayden Smith M.D. [address] [place] [address] 03/21/2024 1:00 PM CDT Virtual Visit Department of Nicotine Dependence, [place], in [place], [place] [address] [place] [address] documented as of this encounter Visit Diagnoses Not on filedocumented in this encounter Additional Health Concerns Assessment Noted Time PHQ-9 Depression Total Score: 3 10/20/19 24 7:30 AM PERSONNEL GENERALIST MANAGER documented as of this encounter Care Teams Jack Prizer Relationship Specialty Start Date End Date Elsewhere, Pcp PCP - General Family Medicine 12/07/23 documented as of this encounter
--- OUTSIDE RECORDS SUMMARY | 2024-01-27 07:00 | XMS_ITS ---
Author Name Unknown Organization [facility] Address [address] [place] [address] Care Team Providers Care Supervisor [employer] Name Role Phone Unavailable Unavailable Unavailable Surgery Details Not on file Complications Check Surgery Details section. Procedure Estimated Blood Loss Check Surgery Details section. Procedure Findings Check Surgery Details section. Procedure Specimens Taken Check Surgery Details section.
--- OUTSIDE RECORDS SUMMARY | 2024-01-27 07:00 | XMS_ITS | Encounter Summary ---
Author Name Unknown Organization [facility] Address [address] [place] [address] Care Team Providers Care Instructional Technology Specialist Name Role Phone Elsewhere, Pcp Primary Care Provider Unavailabl e Encounter Details Date Type Department Care Team (Latest Contact Info) Description 01/25/2024 Clinical Communication Division of Gastroenterology in [place], [place] [address] [place] [address] Katja Umana M.D. [address] [place] [address] Social History Tobacco Use Types Packs/Day Years Used Date Smoking Tobacco: Every Day Cigarettes 0.5 41 Started: 02/11/1983 Passive Smoke Exposure: Never Smokeless Tobacco: Never Alcohol Use Standard Drinks/Week Comments Not Currently 0 (1 standard drink = 0.6 oz pur e alcohol) [facility] Utilities Answer Date Recorded In the past 12 months has [facility] [employer], gas, oil, or water [employer] threatened to shut off services in your [...] Date Recorded Employment status Working with temporary [employer] 10/15/2023 Housing Stability Answer Date Recorded What is your living situation today? I have a [facility] place to live 10/15/2023 Sex and Gender Information Value Date Recorded Sex Assigned at Female 10/06/2023 10:50 AM OFFICE MACHINES WIRER Gender Identity Female 10/06/2023 10:50 AM OFFICE MACHINES WIRER Sexual Orientation Straight 10/06/2023 10 :50 AM OFFICE MACHINES WIRER documented as of this encounter Plan of Treatment Upcoming Encounters Date Type Department Care Team (Late st Contact Info) Description 02/04/2024 2:15 PM CDT Appointment Division of Gastroenterology in [place], [place] [address] [place] [phone] Katja Umana M.D. [address] [place] [phone] Hayden Smith M.D. [address] [place] [phone] 03/21/2024 1:00 PM CDT Virtual Visit Department of Nicotine Dependence, [facility], in [place], [place] [address] [place] [phone] documented as of this encounter Visit Diagnoses Not on filedocumented in this encounter Additional Health Concerns Assessment Noted Time PHQ-9 Depression Total Score: 3 10/20/19 24 7:30 AM OFFICE MACHINES WIRER documented as of this encounter Care Teams Instructional Technology Specialist Relationship Specialty Start Date End Date Elsewhere, Pcp PCP - General Family Medicine 12/07/23 documented as of this encounter
--- OUTSIDE RECORDS SUMMARY | 2024-01-27 07:00 | XMS_ITS | Continuity of Care Document ---
Author Name Unknown Organization [facility] Address [address] [address] [place] [address] Phone Care Team Providers Care Certified Welding Inspector Name Role Phone No Information Unavailable Unavailable [...] Diagnoses Date Provider Providers Copied on Encounter [facility], [address] [address], [place], [place], [id number], [place] tel:[phone] No Information Dec-0 4 No Information [facility] Compl [facility], [address] [address], [place], [place], [id number], [place] tel:[phone] [facility] No Information 4 Dino Guzman. [address] [place] [address], [id number], [place]. tel:[phone] Referring Provider: Thomas Sun MD, [address] [place] [address], [id number]. tel:[phone] [facility] Compl [facility], [address] [address], [place], [id number], tel:[phone] [facility] No Information 4 Kirsty Minor. [address] [place] [address], [address], [id number], . tel:[phone] Referring Provider: Iván Strauss, [address] [place] [address], [id number]. tel:[phone] Init Inpt Cons New[facility]est [facility], [address] [address], [place], [place], [id number], tel:[phone] [facility] Esophageal varices determined by endoscopy 4 Brian Gonzales. [address] [place] [address], [address], [id number], . tel:[phone] Referring Provider: Janet Torres MD, [address] [place] [address], [id number]. tel:[phone] Family History Family Member Type Diagnosis Age At Onset No Information Payers Payer name Insurance type Covered green party ID Authoriza tion(s) No Information Social History [...]
--- OUTSIDE RECORDS SUMMARY | 2024-01-27 07:00 | XMS_ITS | Clinical Summary ---
Author Name Unknown Organization [facility] Address [address] [place] [address] Care Team Providers Care Loom Technician Name Role Phone Elsewhere, Pcp Primary Care Provider Unavailabl e Source Comments Patient records contain information from all sites at [facility]. For routine questions regarding patient records, call [phone] during business hours, M-F 8:00 AM - 5:00 PM Central Time. Record requests for emergency care only can be directed to [phone] at any time.[facility] Allergies No known active allergies [...] 01/25/2024 Clinical Communication Division of Gastroenterology in [place], [place] [address] [place] [address] Katja Umana M.D. 01/14/2024 Clinical Communication Division of Gastroenterology in [place], [place] [address] [place] [phone] Katja Umana M.D. 12/29/2023 Clinical Communication [facility] [place], [place] [address] [place] [address] Katja Umana M.D. Phone Contact (Friends and family authorization ) 12/28/2023 Clinical Communication Division of Gastroenterology in [place], [place] [address] [place] [phone] Katja Umana M.D. 12/21/2023 Clinical Communication Brent Alvarenga [facility] Transplantation and Clinical Regeneration in [place], [place] [address] [place] [phone] Katja Umana M.D. 12/20/2023 2:00 PM CDT Virtual Visit Department of Nicotine Dependence, [facility], in [place], [place] [address] [place] [address] Sudha Bernstein M.A., Jerome., C.T.T.S. Nicotine Dependence Cigarettes With Withdrawal (Primary Dx) 12/20/2023 Orders Only Department of Nicotine Dependence, [facility] in [address] [address] Sudha Bernstein M.A., Jerome., C.T.T.S. 12/20/2023 Clinical Communication Division of Gastroenterology in [address] [phone] Katja Umana M.D. Scheduling 12/16/2023 9:34 AM CDT - 12/16/2023 11:22 AM CDT Hospital Encounter Department of Radiology, [facility], in [address] [address] Katja Umana M.D. Alcoholic Cirrhosis Of Liver With Ascites (HCC); Ascites Discharge Disposition: Home or Self Care 12/09/2023 4:30 PM CDT Office Visit [facility] for Transplantation and Clinical Regeneration in [address] [address] Katja Umana M.D. Olson, Jody C, M.D. Alcoholic Cirrhosis Of Liver With Ascites (HCC) (Primary Dx); Ascites; Sarcopenia 12/08/2023 10:30 AM CDT Comprehensive Visit Section of Infectious Diseases in [address] [address] Katja Umana M.D. Brianna Anglin APRN, C.N.P., D.N.P. 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 Order Request 11/19/2023 10:08 AM CRUSHER PLANT OPERATOR - 11/19/2023 12:51 PM CRUSHER PLANT OPERATOR Hospital Encounter Department of Radiology, [place], [place] [address] [place] [address] Felipe Morales M.D. Ascites Discharge Disposition: Home or Self Care 11/18/2023 11:00 AM CRUSHER PLANT OPERATOR Virtual Visit Department of Nicotine Dependence, [place], [place] [address] [place] [phone] Sudha Bernstein M.A., L.I.C.S.W., C.T.T.S. Nicotine Dependence Cigarettes With Withdrawal (Primary Dx) 11/18/2023 Orders Only Department of Nicotine Dependence, [place], [place] [address] [place] [phone] Sudha Bernstein M.A., Yesy.I.C.S.W., C.T.T.S. 11/11/2023 11:00 AM CRUSHER PLANT OPERATOR Virtual Visit Department of Nicotine Dependence, [facility] in [place], [place] [address] [place] [address] Sudha Bernstein M.A., Yesy.I.C.S.W., C.T.T.S. Nicotine Dependence Cigarettes With Withdrawal (Primary Dx) 11/11/2023 Orders Only Department of Nicotine Dependence, [place], [place] [address] [place] [address] Sudha Bernstein M.A., L.I.C.S.W., C.T.T.S. 11/11/2023 Clinical Communication Department of Nicotine Dependence, [place], [place] [address] [place] [address] Sudha Bernstein M.A., Yesy.I.C.S.W., C.T.T.S. [place] Med Request 11/05/2023 9:29 AM CRUSHER PLANT OPERATOR - 11/05/2023 12:20 PM CRUSHER PLANT OPERATOR Hospital Encounter Department of Radiology, [facility], in [place], [place] [address] [place] [address] Felipe Morales M.D. Ascites Discharge Disposition: Home or Self Care 11/01/2023 12:28 PM CRUSHER PLANT OPERATOR - 11/01/2023 11:59 PM CRUSHER PLANT OPERATOR Hospital Encounter Department of Laboratory Medicine in [address] [phone] Katja Umana M.D. Alcoholic Cirrhosis Of Liver With Ascites (HCC) Discharge Disposition: Home or Self Care from Last 3 Months Immunizations Name Administration [...] drink = 0.6 oz pur e alcohol) [facility] Utilities Answer Date Recorded In the past 12 months has [employer], oil, or water [email or web address] threatened to shut off services in your [...] Date Recorded Employment status Working with temporary [employer] 10/15/2023 Housing Stability Answer Date Recorded What is your living situation today? I have a [facility] place to live 10/15/2023 Sex and Gender Information Value Date Recorded Sex Assigned at Female 10/06/2023 10:50 AM CRUSHER PLANT OPERATOR Gender Identity Female 10/06/2023 10:50 AM CRUSHER PLANT OPERATOR Sexual Orientation Straight 10/06/2023 10 :50 AM CRUSHER PLANT OPERATOR Last Filed Vital Signs Vital Sign Reading Time Taken Comments Blood Pressure 101/47 12/16/2023 10:52 AM CDT Pulse 77 12/16/2023 10:30 AM CDT Temperature 34.7 ??C (94.5 ??F) 12/09/2023 4:21 PM CD T Respiratory Rate 10/08/2023 4:16 PM CRUSHER PLANT OPERATOR Oxygen Saturation 100% 12/16/2023 10:30 AM [...] PM CDT Appointment Division of Gastroenterology in [place], [place] [address] [place] [phone] Katja Umana M.D. [address] [place] [phone] Hayden Smith M.D. [address] [place] [phone] 03/21/2024 1:00 PM CDT Virtual Visit Department of Nicotine Dependence, [facility], in [place], [place] [address] [place] [phone] Health Maintenance Due Date Last Done Comments [...] Completed 10/20/2023 Pneumococcal vaccine (0-64 years) Completed 024 Procedures Procedure Name Priority Date/Time Associated Diagnosis [...] inpatients and all outpatients) 11/19/2023 11:55 AM CRUSHER PLANT OPERATOR Ascites CELL COUNT AND DIFFERENTIAL, BF Timed 11/19/2023 10:50 AM CRUSHER PLANT OPERATOR Ascites BACTERIAL CULTURE, AEROBIC + SUSC Timed 11/19/2023 10:50 AM CRUSHER PLANT OPERATOR Ascites US PARACENTESIS WITH IMAGING GUIDANCE RAD - Routine (most inpatients and all outpatients) 11/05/2023 11:25 AM CRUSHER PLANT OPERATOR Ascites CELL COUNT AND DIFFERENTIAL, BF Timed 11/05/2023 10:07 AM CRUSHER PLANT OPERATOR Ascites BACTERIAL CULTURE, AEROBIC + SUSC Timed 11/05/2023 10:07 AM CRUSHER PLANT OPERATOR Ascites BASIC METABOLIC PANEL, S/P Routine 11/01/2023 12:49 PM CRUSHER PLANT OPERATOR Alcoholic Cirrhosis Of Liver With Ascites (HCC) HCV AB SCRN W/REFLEX TO HCV PCR, S Routine 10/06/2023 12:17 PM CRUSHER PLANT OPERATOR Alcoholic Cirrhosis Of Liver With Ascites (HCC) COLONOSCOPY Routine 10/10/2015 2:45 PM CRUSHER PLANT OPERATOR from Last 3 Months or Most [...] CDT Katja Umana M.D. LAB BLOOD ADD-ON [facility] [address] [place] [address], [facility] [address] [place] [address] * (ABNORMAL) CBC with Differential, Blood (12/09/2023 [...] CDT Katja Umana M.D. LAB BLOOD ADD-ON [facility] [address] [place] [address], [facility] DTL [facility] [address] [place] [address] DHPM [facility] [address] * (ABNORMAL) Comprehensive Metabolic Panel (12/09/2023 5:16 PM CDT) [facility] Potassium, S 5.0 3.6 - 5.2 mmol/L [...] M.D. LAB BLOOD ADD-ON Performing Organization Address [facility] Co de Phone Number [facility] [address] [place] [address], [facility] [address] [place] [address] * Bacterial Culture, Aerobic + Susceptibility (11/19/2023 10:50 AM CRUSHER PLANT OPERATOR) Only the most recent of2 resultswithin the time period is included. Bacterial Culture, Aerobic + Susc No growth after 5 days of incubation. 11/24/2023 8:27 AM CDT DTL Fluid (Peritoneal Fluid) 11/19/2023 10:50 AM CRUSHER PLANT OPERATOR Narrative [facility] - 11/24/2023 8:27 AM CDT Bacterial Culture: Received Bactec aerobic and Bactec anaerobic bottles Felipe Morales M.D. LAB MICROBIOLOGY - GENERAL ORDERABLES Performing Organization Address [facility] de Phone Number [facility] [address] [place] [address], [facility] [address] [place] [address] * Cell Count and Differential, Body Fluid (11/19/2023 10:50 AM CRUSHER PLANT OPERATOR) Only the most recent of2 resultswithin the time period is included. Fluid Type Peritoneal /Paracente sis 11/19/2023 12:39 PM CRUSHER PLANT OPERATOR DHPM Gross Appearance Serous 11/19/19 12:39 PM CRUSHER PLANT OPERATOR DHPM Total Nucleated Cells 201 /mcL 11/19/2023 12:39 PM CRUSHER PLANT OPERATOR DHPM Comment: ----REFERENCE VALUE---- Synovial: <150 /mcL Peritoneal: <500 /mcL Pleural: <500 /mcL Pericardial: <500 /mcL ----ADDITIONAL INFORMATION---- This test has been modified from the aircraft structural repairer's instructions. Its performance characteristics were determined by [facility] in a manner consistent with CLIA requirements. This test has not been cleared or approved by the U.S. Food and Drug Administration. Neutrophils 20 % 11/19/2023 1:42 PM CRUSHER PLANT OPERATOR DHPM Comment: ----REFERENCE VALUE---- Synovial: <25% Peritoneal: <25% Pleural: <25% Pericardial: <25% Lymphocytes 16 Synovial <75% % 11/19/2023 1:42 PM CRUSHER PLANT OPERATOR DHPM Monocytes/Macropha ges 60 Synovial <70% % 11/19/2023 1:42 PM CRUSHER PLANT OPERATOR DHPM Other Cells 4 % 11/19/2023 1:42 PM CRUSHER PLANT OPERATOR DHPM Comment: ----REFERENCE VALUE---- The reference range and other method performance specifications have not been established for this bodyfluid. The test result must be integrated into the clinical context for interpretation. Other Cells Are: See Comment 11/19/2023 1:42 PM CRUSHER PLANT OPERATOR DHPM Comment:Mesothelial cells Comment See Comment 11/19/2023 1:42 PM CRUSHER PLANT OPERATOR DHPM Comment:No blasts or maligna nt cells seen. Reviewed by: Jose 11/19/2023 1:42 PM CRUSHER PLANT OPERATOR DHPM Fluid (Peritoneal Fluid) 11/19/2023 10:50 AM CRUSHER PLANT OPERATOR Felipe Morales M.D. LAB BODY FLUIDS AND STOOLS ORDERABLES [facility] [address] [place] [address], [facility] [address] [place] [address] * (ABNORMAL) Basic Metabolic Panel (11/01/2023 12:49 PM CRUSHER PLANT OPERATOR) Potassium, P 4.1 3.6 - 5.2 mmol/L 11/01/2023 1:13 PM CRUSHER PLANT OPERATOR CNFL Sodium, P 128(L) 135 - 145 mmol/L 11/01/2023 1:13 PM CRUSHER PLANT OPERATOR CNFL Chloride, P 95(L) 98 - 107 mmol/L 11/01/2023 1:13 PM CRUSHER PLANT OPERATOR CNFL Bicarbonate, P 26 22 - 29 mmol/L 11/01/2023 1:13 PM CRUSHER PLANT OPERATOR CNFL Anion Gap, P 7 7 - 15 11/01/2023 1:13 PM CRUSHER PLANT OPERATOR CNFL BUN (Blood Urea Nitrogen), P 10 6 - 21 mg/dL 11/01/2023 1:13 PM CRUSHER PLANT OPERATOR CNFL Creatinine 0.42(L) 0.59 - 1.04 mg/dL 11/01/2023 1:13 PM CRUSHER PLANT OPERATOR CNFL Estimated GFR (eGFR) >90 >=60 mL/min/BSA 11/01/2023 1:13 PM CRUSHER PLANT OPERATOR CNFL Comment: Estimated GFR calculated using the 2020 CKD_EPI creatinine equation. Calcium, Total, P 8.3(L) 8.8 - 10.2 mg/dL 11/01/2023 1:13 PM CRUSHER PLANT OPERATOR CNFL Glucose, P 105 70 - 140 mg/dL 11/01/2023 1:13 PM CRUSHER PLANT OPERATOR CNFL Blood (Blood, Venous) 11/01/2023 12:49 PM CRUSHER PLANT OPERATOR 11/01/2023 12:54 PM CRUSHER PLANT OPERATOR Katja Umana M.D. LAB BLOOD ADD-ON [facility] [address] [place] [address], [facility] in [address] [address] * HCV Ab Scrn w/Reflex to HCV PCR, Serum (10/06/2023 12:17 PM CRUSHER PLANT OPERATOR) HCV Ab Screen, S Negative Negative 10/06/2023 9:12 PM CRUSHER PLANT OPERATOR [facility] Comment:Bhqzic-zf-ificum rat io is <1.00. Blood (Blood, Venous) 10/06/2023 12:17 PM CRUSHER PLANT OPERATOR 10/06/2023 3:57 PM CRUSHER PLANT OPERATOR Katja Umana M.D. LAB MICROBIOLOGY - B LOOD ORDERABLES [facility] [address] [place] [address] [facility] [address] [place] [address] * Colonoscopy (10/10/2015 2:45 PM CRUSHER PLANT OPERATOR) 10/10/2015 2:45 PM CRUSHER PLANT OPERATOR Tanner Calderón GI PROCEDURE NATY CHIANG [facility] [address] from Last 3 Months or Most Recently Relevant to Health Maintenance Care Teams Loom Technician Relationship Specialty Start Date End Date Elsewhere, Pcp PCP - General Family Medicine 12/07/23
--- OUTSIDE RECORDS SUMMARY | 2024-01-27 07:00 | XMS_ITS | Clinical Summary ---
Author Name Unknown Organization [facility] Address [place], [place] [address] Care Team Providers Care Bulk Mail Clerk Name Role Phone Jared Delgado MD Primary Care Provider [phone] Allergies No known active allergies Medications Medication Sig Dispensed Refills Start Date End Date Status furosemide (LASIX) 20 mg tabletIndications:As cites due to alcoholic cirrhosis (HC) Take 1 Tablet (20 mg) by mouth every morning. Hold if systolic blood pressure (top number) is less than 110 30 Tablet 12/07/2023 Active pantoprazole (PROTONIX) 40 mg delayed-release tabletIndications:Ga strointestinal hemorrhage associated with duodenal ulcer Take 1 Tablet (40 mg) by mouth two times daily before meals. for 2 weeks, once daily thereafter. 60 Tablet 12/06/2023 Active spironolactone (ALDACTONE) 50 mg tabletIndications:As cites due to alcoholic cirrhosis (HC) Take 1 Tablet (50 mg) by mouth every morning. Hold if systolic blood pressure (top number) is less than 110 30 Tablet 12/07/2023 Active Active Problems Problem Noted Date Diagnosed Date Alcohol abuse 12/02/2023 Cirrhosis 12/02/2023 GI Bleed due to duodenal ulcer 12/02/2023 Tobacco abuse 12/02/2023 Ascites 12/02/2023 Anemia 12/02/2023 Hyponatremia 12/02/2023 Encounters Date Type Department Care Team Description 4 Travel 4 1:10 PM CDT Anesthesia Event [facility] [address] [place] [address] Gabe Webber MD 4 12:12 PM CDT - 4 12:57 PM CDT Surgery [address] [address] Janet Torres MBBS ESOPHAGOGASTRODUODENOSCOPY 4 8:52 PM CDT - 4 5:25 PM CDT Hospital Encounter [address] [place] [address] s, U Hospitalist Ean Jett, MD Kim Hunter, MD Jose Elias [...] 2) 2010 COVID-19 vaccine series (3 - season) 2023 11/21/2020, 10/24/2020 Influenza for age [...] - 145 mmol/L 12/06/2023 11:58 AM CDT [facility] Blood BLOOD SPECIMEN / Unknown Butterfly / Unknown 12/06/2023 11:25 AM CDT 12/06/2023 11:50 AM CDT Freddy Moctezuma MD CHEMISTRY Performing Organization Address City/[facility]/ZIP Co de Phone Number [facility] SENDOUT INTERNAL ZIP [phone] [place] [address] * (ABNORMAL) HEMOGLOBIN (12/06/2023 9:05 AM CDT) Only the most recent of6 resultswithin the time period is included. HEMOGLOBIN 7.6(L) 12.0 - 16.0 g/dL 12/06/2023 9:29 AM CDT [facility] MCV 94 80 - 100 fL 12/06/2023 9:29 AM CDT [facility] Blood BLOOD SPECIMEN / Unknown Venipuncture / Unknown 12/06/2023 9:05 AM CDT 12/06/2023 9:24 AM CDT Freddy Moctezuma MD HEMATOLOGY [facility] SENDOUT [place]NAL ZIP [phone] [place] [address] * (ABNORMAL) BASIC METABOLIC PANEL (12/05/2023 1:42 PM CDT) Only the most recent of3 resultswithin the time period is included. SODIUM 122(L) 136 - 145 mmol/L 12/05/2023 2:37 PM CDT [facility] POTASSIUM 4.6 3.5 - 5.1 mmol/L 12/05/2023 2:37 PM CDT [facility] CHLORIDE 92(L) 98 - 107 mmol/L 12/05/2023 2:37 PM CDT [facility] CO2,TOTAL 20(L) 22 - 29 mmol/L 12/05/2023 2:37 PM T [facility] ANION GAP 10 5 - 18 12/05/2023 2:37 PM T [facility] GLUCOSE 97 70 - 99 mg/dL 12/05/2023 2:37 PM T [facility] CALCIUM 7.8(L) 8.8 - 10.2 mg/dL 12/05/2023 2:37 PM T [facility] BUN 11 8 - 23 mg/dL 12/05/2023 2:37 PM T [facility] CREATININE 0.50 0.50 - 0.90 mg/dL 12/05/2023 2:37 PM T [facility] BUN/CREAT RATIO 22(H) 10 - 20 2:37 PM T [facility] eGFR >90 >90 mL/min/1.7 3m2 12/05/2023 2:37 PM T [facility] Comment:As of 2021, eG FR [...] 2:10 PM CDT Freddy Moctezuma MD CHEMISTRY [facility] SENDOUT [place] ZIP [phone] [place] [address] * LC HEP A AB, TOTAL (12/04/2023 9:21 AM CDT) Pathologist [facility] Hep A Ab Tot Negative Negative 12/08/2023 11:10 AM CDT [facility] ([facility]) Comment: Comment: The HAV total antibody assay detects both IgG and IgM but does not differentiate between them. A negative result suggests susceptibility to infection. A positive result could be due to vaccination, previously resolved infection or active infection. Testing for HAV IgM should be performed if active HAV infection is suspected. [facility] offers profiles that will automatically reflex positive HAV total antibody results to IgM (e.g., panel #[id number] HAV Antibody w/ Rfx). Blood BLOOD SPECIMEN / Unknown Venipuncture / Unknown 12/04/2023 9:21 AM CDT 12/04/2023 9:29 AM CDT Narrative [facility] ([facility]) - 12/08/2023 11:10 AM CDT Performed at: ??01 - [address] ??[id number] Resource Management Specialist: Carlos Piña MD, Phone: ??[phone] Janet DELGADO LABORATORY [facility] ([facility]) [address] [place] [address], * ANTI HBS QUANT AHS (12/04/2023 9:21 AM CDT) [facility] ANTI HBS QUANT <3.50 mIU/mL 12/04/2023 3:36 PM CDT [facility] Blood BLOOD SPECIMEN / Unknown Venipuncture / Unknown 12/04/2023 9:21 AM CDT 12/04/2023 9:29 AM CDT Narrative [facility] - 12/04/2023 3:36 PM CDT [...] prior to retesting. Janet JULIOBS SEND OUTS [facility] [address] [place] [address], * (ABNORMAL) PROTIME-INR (12/04/2023 9:21 AM CDT) INR 1.7(H) <1.3 12/04/2023 9:58 AM CDT [facility] PROTIME 18.5(H) 10.3 - 12.3 sec 12/04/2023 9:58 AM CDT [facility] Blood BLOOD SPECIMEN / Unknown [...] is on [facility]FH. Felipe Alvarez MD HEMATOLOGY [facility] SENDOUT INTERNAL ZIP [address] [place] [address] * (ABNORMAL) AMMONIA (12/04/2023 9:21 AM CDT) AMMONIA 129(HH) 16 - 60 umol/L 12/04/2023 10:05 AM CDT [facility] Blood BLOOD SPECIMEN / Unknown Venipuncture / Unknown 12/04/2023 9:21 AM CDT 12/04/2023 9:28 AM CDT Narrative [facility] - 12/04/2023 10:05 AM CDT 1. ??Sulfasalazine and its metabolite Sulfapyridine at therapeutic concentrations may lead to falsely low results. 2. ??Temozolomide and its metabolite MTIC may lead to falsely elevated results, and its metabolite AIC may lead to falsely low results. Felipe Alvarez MD CHEMISTRY [facility] SENDOUT INTERNAL ZIP [phone] [place] [address] * US PARACENTESIS W IMAGING (12/03/2023 4:51 PM CDT) Anatomical Region Laterality Modality CHEST, Lung, THORAX Ultrasound 12/03/2023 4:51 PM CDT Impressions 12/03/2023 4:56 PM CDT 1. ??Status post ultrasound-guided paracentesis. Reference CPT Code: 66688 Narrative 12/03/2023 4:56 PM CDT For Patients: As a result of the Cures Act, medical imaging exams and procedure reports are released immediately into your electronic medical record. You may view this report before your referring provider. If you have questions, please contact your health care provider. EXAM: 1. PARACENTESIS 2. ULTRASOUND GUIDANCE LOCATION: [facility] DATE: 12/03/2023 INDICATION: Ascites. PROCEDURE: Informed consent obtained. Time out performed. The abdomen was prepped and draped in a sterile fashion. 10 mL of 1% lidocaine was infused into local soft tissues. A 5 Greenlandic catheter system was introduced into the abdominal ascites under ultrasound guidance. 7.1 liters of clear fluid were removed and sent to lab if requested. Patient tolerated procedure well. Ultrasound imaging was obtained and placed in the patient's permanent medical record. Procedure Note Eduardo Palacios MD - 12/03/2023 For Patients: As a result of the Cures Act, medical imagingexams and procedure reports are released immediately into your electronicmedical record. You may view this report before your referring provider.If you have questions, please contact your health care provider. EXAM: 1. PARACENTESIS 2. ULTRASOUND GUIDANCE LOCATION: [facility] DATE: 12/03/2023 INDICATION: Ascites. PROCEDURE: Informed consent obtained. Time out performed. The abdomen wasprepped and draped in a sterile fashion. 10 mL of 1% lidocaine was infusedinto local soft tissues. A 5 Greenlandic catheter system was introduced intothe abdominal ascites under ultrasound guidance. 7.1 liters of clear fluid were removed and sent to lab if requested. Patient tolerated procedure well. Ultrasound imaging was obtained and placed in the patient's permanentmedical record. IMPRESSION: 1. Status post ultrasound-guided paracentesis. Reference CPT Code: 32849 Janet DELGADO * Body Fluid Culture and Stain (12/03/2023 4:20 PM CDT) CULTURE No Growth. 12/08/2023 7:52 AM CDT [facility] GRAM STAIN 2+ PMNs 12/08/2023 7:52 AM CDT [facility] GRAM STAIN No organisms seen 12/08/2023 7:52 AM CDT [facility] GRAM STAIN No Epithelial cells 12/08/2023 7:52 AM CDT [facility] GRAM STAIN No RBCs 12/08/2023 7:52 AM CDT [facility] GRAM STAIN Gram stain performed by [place], [place] 12/08/2023 7:52 AM CDT [facility] Body Fluid PERITONEAL FLUID SPECIMEN / Unknown Non-Blood / Unknown 12/03/2023 4:20 PM CDT 12/03/2023 4:40 PM CDT Janet DELGADO MICROBIOLOGY [facility] [address] [place] [address], [facility] SENDOUT INTERNAL ZIP [phone] [place] [address] * Body Fluid Cell Count and Differential (12/03/2023 4:20 PM CDT) BODY FLUID SOURCE Ascitic Fluid 12/03/2023 7:27 PM CDT [facility] BODY FLUID COLOR Yellow 12/03/2023 7:27 PM CDT [facility] BODY FLUID CLARITY Clear 12/03/2023 7:27 PM CDT [facility] TOTAL NUCLEATED CELLS, BF 85 /cu mm 12/03/2023 7:27 PM CDT [facility] RED BLOOD COUNT, BODY FLUID <2,000 /cu mm 12/03/2023 7:27 PM CDT [facility] % NEUTROPHILS, BODY FLUID 17 % 12/03/2023 7:27 PM CDT [facility] % LYMPHOCYTES, BODY FLUID 25 % 12/03/2023 7:27 PM CDT [facility] % MONO/MACRO, BODY FLUID 58 % 12/03/2023 7:27 PM CDT [facility] Body Fluid PERITONEAL FLUID SPECIMEN / Unknown Non-Blood / Unknown 12/03/2023 4:20 PM CDT 12/03/2023 4:40 PM CDT [facility] - 12/03/2023 7:27 PM CDT TO ORDER BODY FLUID CULTURES, USE; [id number] BODY FLUID CULTURE, STAIN Janet JULIO BODY FLUID [facility] SENDOUT INTERNAL ZIP [phone] [place] [address] * Protein, Body Fluid (12/03/2023 4:20 PM CDT) SPECIMEN SOURCE Peritoneal fluid 12/03/2023 5:26 PM CDT [facility] PROTEIN,BODY FLUID 0.6 g/dL 12/03/2023 5:26 PM CDT [facility] Comment:No Reference Range D efined. [...] Test developed & performance characteristics [facility] [place], [place] consistent with CLIA requirements. Not cleared or approved by [place] FDA. Janet Torres NORI BODY FLUID [facility] SENDOUT INTERNAL ZIP [address] [address] [place] [address] * Albumin, Body Fluid (12/03/2023 4:20 PM CDT) SPECIMEN SOURCE Peritoneal fluid 12/03/2023 5:26 PM CDT [facility] ALBUMIN,BODY FLUID 0.3 g/dL 12/03/2023 5:26 PM CDT [facility] Comment:No Reference Range D efined. Body Fluid PERITONEAL FLUID SPECIMEN / Unknown Non-Blood / Unknown 12/03/2023 4:20 PM CDT 12/03/2023 4:40 PM CDT Narrative [facility] - 12/03/2023 5:26 PM CDT Peritoneal: ??SAAG >/= 1.1 g/dL indicates portal Hypertension. Pleural: ? SEAG > 1.2 g/dL is consistent with a transudative process and may ?be more accurate in patients receiving diuretic therapy. Test developed & performance characteristics determined by [facility], [place], [place] consistent with CLIA requirements. Not cleared or approved by [place] FDA. Janet JULIO BODY FLUID [facility] SENDOUT INTERNAL ZIP [phone] [place] [address] * FERRITIN (12/03/2023 2:47 PM CDT) FERRITIN 131.0 15.0 - 150.0 ng/mL 12/03/2023 9:31 PM CDT [facility] Blood BLOOD SPECIMEN / Unknown Venipuncture / Unknown 12/03/2023 2:47 PM CDT 12/03/2023 2:51 PM CDT Janet DELGADO CHEMISTRY [facility] [address] [place] [address], * PATH TISSUE EXAM (12/03/2023 1:23 PM CDT) Case Report Pathology Report ?Case: [id number] ? Authorizing Provider: ??Janet Torres MBBS ?Collected: ? 12/03/2023 1323 ? Ordering Location: ? [facility] ?Received: ?12/03/2023 1527 ? Pathologist: ? Marco Tijerina MD ? Specimens: ?? A) - Duodenal Ulcer ? B) - Gastric Biopsy, random gastric ? 4 1:56 PM CDT [facility] Final Diagnosis A) DUODENUM, ULCER, BIOPSY: [...] Helicobacter (Helicobacter immunohistochemistry negative) 4 1:56 PM CDT [facility] Comment B. Mild chronic inflammation in the stomach in the absence of Helicobacter often remains unexplained, but it could reflect prior or treated Helicobacter infection. The likelihood of histologically undetected Helicobacter is quite low in our opinion. 4 1:56 PM T [facility] Clinical Information Ms. Redmond is a 63 y.o. with hematemesis and iron deficiency anemia secondary to chronic blood loss. Upper GI endoscopy shows grade 1 esophageal varices, diffuse mild erythema throughout the stomach, and a superficial duodenal ulcer. 4 1:56 PM T [facility] Gross Description A) Received in formalin [...] Torres 12/03/2023 4:32 PM 4 1:56 PM CDT [facility] Microscopic Description The final diagnosis is based on microscopic examination of appropriate sections of all specimens. 4 1:56 PM T [facility]- CENTRAL LABORATORY Additional Information Interpreted at [facility], Central Laboratory - [address], [place] [address] 1:56 PM CDT [facility] Biopsy (Duodenal Ulcer) 12/03/2023 1:23 PM CDT 12/03/2023 3:27 PM CDT Biopsy specimen (specimen) GASTRIC BIOPSY SPECIMEN / Unknown 12/03/2023 1:29 PM CDT 12/03/2023 3:27 PM CDT Janet DELGADO PATHOLOGY/CYTOLOGY [facility] [address] [place] [address], * ENDOSCOPY (12/03/2023 12:57 PM CDT) 12/03/2023 12:5 7 PM CDT Narrative Transcriptions Janet Torres MBBS - 12/03/2023 2:21 PM CDT Patient Name: Monique Ruy Procedure Date: 12/03/2023 Gender: Female Date of : 1960 Admit Type: Inpatient Procedure: Upper GI endoscopy Proceduralist: MD Janki [facility] Indications/Pre-Op Diagnosis: Hematemesis, Iron deficiency anemiasecondary to chronic blood loss Medications: Propofol per Anesthesia Procedure Description: The patient had risks, benefits and alternatives explained to andgave informed consent. The patient had a stable cardiopulmonary status and judged an adequate candidate for conscious sedation. The endoscope [id number] was introduced through the mouth, and advanced [...] 0 hours 12 minutes 18 seconds Janet DELGADO PROCEDURE ORD * SCAN-CARDIAC STRIP (12/03/2023 9:08 AM CDT) Scanner OTHER * (ABNORMAL) CBC WITH AUTO DIFFERENTIAL (12/03/2023 3:34 AM CDT) WHITE BLOOD COUNT 8.7 4.5 - 11.0 thou/cu mm 12/03/2023 5:12 AM [facility] RED BLOOD COUNT 2.21(L) 4.00 - 5.20 mil/cu mm 12/03/2023 5:12 AM T [facility] HEMOGLOBIN 7.3(L) 12.0 - 16.0 g/dL 12/03/2023 5:12 AM T [facility] HEMATOCRIT 21.5(L) 33.0 - 51.0 % 12/03/2023 5:12 AM [facility] MCV 97 80 - 100 fL 12/03/2023 5:12 AM [facility] MCH 33.0 26.0 - 34.0 pg 12/03/2023 5:12 AM [facility] MCHC 34.0 32.0 - 36.0 g/dL 12/03/2023 5:12 AM [facility] RDW 17.2(H) 11.5 - 15.5 % 12/03/2023 5:12 AM [facility] PLATELET COUNT 167 140 - 440 thou/cu mm 12/03/2023 5:12 AM [facility] MPV 8.9 6.5 - 11.0 fL 12/03/2023 5:12 AM T [facility] NRBC 0.0 % 12/03/2023 5:12 AM [facility] ABS NRBC 0.0 thou /cu mm 12/03/2023 5:12 AM T [facility] % NEUT 65.0 % 12/03/2023 5:12 AM CDT [facility] % LYMPH 25.6 % 12/03/2023 5:12 AM T [facility] % MONO 7.5 % 12/03/2023 5:12 AM CDT [facility] % EOS 1.0 % 12/03/2023 5:12 AM T [facility] % BASO 0.3 % 12/03/2023 5:12 AM CDT [facility] % IMMATURE GRAN (METAS,MYELOS,KS OS) 0.6 % 12/03/2023 5:12 AM CDT [facility] ABSOLUTE NEUTROPHILS 5.7 1.7 - 7.0 thou/cu mm 12/03/2023 5:12 AM CDT [facility] ABSOLUTE LYMPHOCYTES 2.2 0.9 - 2.9 thou/cu mm 12/03/2023 5:12 AM CDT [facility] ABSOLUTE MONOCYTES 0.7 <0.9 thou/cu mm 12/03/2023 5:12 AM CDT [facility] ABSOLUTE EOSINOPHILS 0.1 <0.5 thou/cu mm 12/03/2023 5:12 AM CDT [facility] ABSOLUTE BASOPHILS 0.0 <0.3 thou/cu mm 12/03/2023 5:12 AM CDT [facility] ABSOLUTE IMMATURE GRANULOCYTES(MET ,MYELOS,PROS) 0.1 <0.3 thou/cu mm 12/03/2023 5:12 AM CDT [facility] Blood BLOOD SPECIMEN / Unknown Butterfly / Unknown 12/03/2023 3:34 AM CDT 12/03/2023 3:37 AM CDT Adama Jett MD HEMATOLOGY [facility] SENDOUT INTERNAL ZIP [phone] [place] [address] * (ABNORMAL) RED CELL MORPHOLOGY (12/03/2023 3:34 AM CDT) POLYCHROMASIA Slight 12/03/2023 5:12 AM CDT [facility] SCHISTOCYTES Few 12/03/2023 5:12 AM CDT [facility] RBC COMMENT Present(A) RBC morphology appears normal, RBC morphology within normal limits for newborns. 12/03/2023 5:12 AM CDT [facility] Blood BLOOD SPECIMEN / Unknown Butterfly / Unknown 12/03/2023 3:34 AM CDT 12/03/2023 3:37 AM CDT Adama Jett MD HEMATOLOGY [facility] SENDOUT INTERNAL ZIP [phone] [place] [address] * PLATELET ESTIMATE (12/03/2023 3:34 AM CDT) PLATELET ESTIMATE Adequate Adequate, No estimate 12/03/2023 5:12 AM CDT [facility] Blood BLOOD SPECIMEN / Unknown Butterfly / Unknown 12/03/2023 3:34 AM CDT 12/03/2023 3:37 AM CDT Adama Jett MD HEMATOLOGY Performing Organization Address [facility]/ZIP Co de Phone Number [facility] SENDOUT INTERNAL ZIP [phone] [place] [address] * (ABNORMAL) IRON PLUS IRON BINDING CAP (12/03/2023 3:34 AM CDT) IRON 49 37 - 145 ug/dL 12/03/2023 3:46 PM CDT [facility] UIBC (UNSATURATED) 67(L) 112 - 347 ug/dL 12/03/2023 3:46 PM CDT [facility] IRON BINDING CAPACITY 116(L) 250 - 400 ug/dL 12/03/2023 3:46 PM CDT [facility] IRON,% SATURATION 42 14 - 50 % 12/03/2023 3:46 PM CDT [facility] Blood BLOOD SPECIMEN / Unknown Butterfly / Unknown 12/03/2023 3:34 AM CDT 12/03/2023 3:37 AM CDT Janet DELGADO CHEMISTRY [facility] SENDOUT INTERNAL ZIP [phone] [place] [address] * (ABNORMAL) MAGNESIUM (12/03/2023 3:34 AM CDT) MAGNESIUM 2.5(H) 1.6 - 2.4 mg/dL 12/03/2023 3:57 AM CDT [facility] Blood BLOOD SPECIMEN / Unknown Butterfly / Unknown 12/03/2023 3:34 AM CDT 12/03/2023 3:37 AM CDT Adama Jett MD CHEMISTRY [facility] SENDOUT INTERNAL ZIP [phone] [place] [address] * SCAN-CARDIAC STRIP (12/02/2023 11:58 PM CDT) Scanner OTHER * (ABNORMAL) HEPATIC FUNCTION PANEL (12/02/2023 10:56 PM CDT) ALBUMIN 2.8(L) 4.0 - 4.9 g/dL 12/02/2023 11:22 PM CDT [facility] PROTEIN,TOTAL 6.5 6.0 - 8.0 g/dL 12/02/2023 11:22 PM CDT [facility] BILIRUBIN,TOTAL 3.0(H) 0.0 - 1.2 mg/dL 12/02/2023 11:22 PM CDT [facility] BILIRUBIN,DIRECT 1.3(H) 0.0 - 0.3 mg/dL 12/02/2023 11:22 PM CDT [facility] BILIRUBIN,INDIRE CT 1.7(H) 0.2 - 0.8 mg/dL 12/02/2023 11:22 PM CDT [facility] ALK PHOSPHATASE 114(H) 35 - 104 IU/L 12/02/2023 11:22 PM CDT [facility] ALT (SGPT) 31 10 - 35 IU/L 12/02/2023 11:22 PM CDT [facility] AST (SGOT) 87(H) 10 - 35 IU/L 12/02/2023 11:22 PM CDT [facility] Blood BLOOD SPECIMEN / Unknown Venipuncture / Unknown 12/02/2023 10:56 PM CDT 12/02/2023 11:01 PM CDT Adama Jett MD CHEMISTRY [facility] SENDOUT INTERNAL ZIP [phone] [place] [address] from Last 3 Months Advance Directives * Full Code (Latest Code Status on File) Date Activated Date Inactivated Comments 12/02/2023 9:46 PM 12/06/2023 7:35 PM Question Answer Comments Code Status Discussion: Reviewed Preferences Care Teams Bulk Mail Clerk Relationship Specialty Start Date End Date Jared Delgado MD [address] [place] [phone] PCP - General Family Practice 12/04/23
--- OUTSIDE RECORDS SUMMARY | 2024-01-27 07:01 | XMS_ITS | Encounter Summary ---
Author Name Unknown Organization [facility] Address [address] [place] [address] Care Team Providers Care Packing Line Operator Name Role Phone Unavailable Primary Care Provider Unavailabl e Reason for Referral * Outpatient (Routine) - Closed Specialty Diagnoses / Procedures Referred By Contlulu t Referred To Contact Nicotine Dependence Sudha Bernstein M.A., DonnS.Dameon., C.T.T.S. [address] [place] [phone] [facility] Referral ID Status Reason Start Date Expiration Date Visits Re quested Visits Authorized [id number] Closed 11/18/2023 05/19/2025 1 1 Scheduling Instructions Please schedule a follow up phone visit. C EXECUTIVE Encounter Details Date Type Department Care Team (Late st Contact Info) Description 11/18/2023 Orders Only Department of Nicotine Dependence, [facility] in [place], [place] [address] [place] [phone] Sudha Bernstein M.A., Edwin.S.W., C.T.T.S. [address] [place] [phone] Social History Tobacco Use Types Packs/Day Years Used Date Smoking Tobacco: Every Day Cigarettes 0.5 40 Smokeless Tobacco: Never Alcohol Use Standard Drinks/Week Comments Not Currently 0 (1 standard drink = 0.6 oz pur e alcohol) [facility] Utilities Answer Date Recorded In the past 12 months has th e [employer] gas, oil, or water company threatened to [...] Sex Assigned at Female 10/06/2023 10:50 AM MUSIC EXECUTIVE Gender Identity Female 10/06/2023 10:50 AM MUSIC EXECUTIVE Sexual Orientation Straight 10/06/2023 10 :50 AM MUSIC EXECUTIVE documented as of this encounter Plan of Treatment Upcoming Encounters Date Type Department Care Team (Late st Contact Info) Description 02/04/2024 2:15 PM CDT Appointment Division of Gastroenterology in [place], [place] [address] [place] [address] Katja Umana M.D. [address] [place] [address] Hayden Smith M.D. [address] [place] [phone] 03/21/2024 1:00 PM CDT Virtual Visit Department of Nicotine Dependence, [facility] in [place], [place] [address] [place] [address] Scheduled Referrals Name Type Priority Associated Diagnoses Order Schedule Nicotine Dependence office visit (clinic) Outpatient Referral Routine Expected: 12/20/2023, Expires: 02/17/2025 documented as of this encounter Visit Diagnoses Not on filedocumented in this encounter Additional Health Concerns Assessment Noted Time PHQ-9 Depression Total Score: 3 10/20/19 24 7:30 AM MUSIC EXECUTIVE documented as of this encounter
--- OUTSIDE RECORDS SUMMARY | 2024-01-27 07:01 | XMS_ITS | Encounter Summary ---
Author Name Unknown Organization [facility] Address [address] [place] [address] Care Team Providers Care Hand Sizer Name Role Phone Unavailable Primary Care Provider Unavailabl e Reason for Visit * Reason Onset Date Comments NDC Med Request 11/11/2023 Encounter Details Date Type Department Care Team (Latest Contact Info) Description 11/11/2023 Clinical Communication Department of Nicotine Dependence, [facility], in [place], [place] [address] [place] [phone] Sudha Bernstein M.A., L.I.C.S.W., C.T.T.S. [address] [place] [phone] NDC Med Request Social History Tobacco Use Types Packs/Day Years Used Date Smoking Tobacco: Every Day Cigarettes 0.5 40 Smokeless Tobacco: Never Alcohol Use Standard Drinks/Week Comments Not Currently 0 (1 standard drink = 0.6 oz pur e alcohol) [facility] Utilities Answer Date Recorded In the past 12 months has [email or web address], gas, oil, or water [employer] threatened to shut off services in [...] Date Recorded Employment status Working with temporary [employer] 10/15/2023 Housing Stability Answer Date Recorded What is your living situation today? I have a [facility] place to live 10/15/2023 Sex and Gender Information Value Date Recorded Sex Assigned at Female 10/06/2023 10:50 AM DIRECTOR OF STAFF DEVELOPMENT Gender Identity Female 10/06/2023 10:50 AM DIRECTOR OF STAFF DEVELOPMENT Sexual Orientation Straight 10/06/2023 10 :50 AM DIRECTOR OF STAFF DEVELOPMENT documented as of this encounter Miscellaneous Notes * Telephone Encounter - Sudha Bernstein M.A., L.I.C.S.W., M.S.W. - 11/11/2023 11:39 AM CST Sandra, this patient is interested in having a prescription sent to [facility] in [place], [place] for the following if appropriate after [...] if you have any questions. Thank you. CTOR OF STAFF DEVELOPMENT documented in this encounter Plan of Treatment Upcoming Encounters Date Type Department Care Team (Late st Contact Info) Description 02/04/2024 2:15 PM CDT Appointment Division of Gastroenterology in [place], [place] [address] [place] [phone] Katja Umana M.D. [address] [place] [phone] Hayden Smith M.D. [address] [place] [phone] 03/21/2024 1:00 PM CDT Virtual Visit Department of Nicotine Dependence, [facility], in [place], [place] [address] [place] [phone] documented as of this encounter Visit Diagnoses Not on filedocumented in this encounter Additional Health Concerns Assessment Noted Time PHQ-9 Depression Total Score: 3 10/20/19 24 7:30 AM DIRECTOR OF STAFF DEVELOPMENT documented as of this encounter
--- OUTSIDE RECORDS SUMMARY | 2024-01-27 07:01 | XMS_ITS | Encounter Summary ---
Author Name Unknown Organization [facility] Address [address] [place] [address] Care Team Providers Care Electronic Science Teacher Name Role Phone Elsewhere, Pcp Primary Care Provider Unavailabl e Reason for Referral * Outpatient (Routine) - Authorized Specialty Diagnoses / Procedures Referred By Contac t Referred To Contact Nicotine Dependence Sudha Bernstein M.A., Jerome., C.T.T.S. [address] [place] [phone] [facility] Referral ID Status Reason Start Date Expiration Date V isits Requested Visits Authorized [id number] Authorized 12/20/2023 06/20/2025 1 1 Scheduling Instructions Please schedule this patient for a follow up phone visit on March 21. No need to call it can just be added to my calendar. Encounter Details Date Type Department Care Team (Late st Contact Info) Description 12/20/2023 Orders Only Department of Nicotine Dependence, [facility], in [place], [place] [address] [place] [phone] Sudha Bernstein M.A., DonnS.W., C.T.T.S. [address] [place] [phone] Social History Tobacco Use Types Packs/Day Years Used Date Smoking Tobacco: Every Day Cigarettes 0.5 41 Started: 02/11/1983 Passive Smoke Exposure: Never Smokeless Tobacco: Never Alcohol Use Standard Drinks/Week Comments Not Currently 0 (1 standard drink = 0.6 oz pur e alcohol) [facility] Utilities Answer Date Recorded In the [...] your living situation today? I have a [facility] place to live 10/15/2023 Sex and Gender Information Value Date Recorded Sex Assigned at Female 10/06/2023 10:50 AM CHEMICAL PRODUCTION ENGINEER Gender Identity Female 10/06/2023 10:50 AM CHEMICAL PRODUCTION ENGINEER Sexual Orientation Straight 10/06/2023 10 :50 AM CHEMICAL PRODUCTION ENGINEER documented as of this encounter Plan of Treatment Upcoming Encounters Date Type Department Care Team (Late st Contact Info) Description 02/04/2024 2:15 PM CDT Appointment Division of Gastroenterology in [place], [place] [address] [place] [phone] Katja Umana M.D. [address] [place] [phone] Hayden Smith M.D. [address] [place] [phone] 03/21/2024 1:00 PM CDT Virtual Visit Department of Nicotine Dependence, [facility] in [place], [place] [address] [place] [phone] Scheduled Referrals Name Type Priority Associated Diagnoses Order Schedule Nicotine Dependence office visit (clinic) Outpatient Referral Routine Expected: 03/21/2024, Expires: 03/20/2025 documented as of this encounter Visit Diagnoses Not on filedocumented in this encounter Additional Health Concerns Assessment Noted Time PHQ-9 Depression Total Score: 3 10/20/19 24 7:30 AM CHEMICAL PRODUCTION ENGINEER documented as of this encounter Care Teams Electronic Science Teacher Relationship Specialty Start Date End Date Elsewhere, Pcp PCP - General Family Medicine 12/07/23 documented as of this encounter
--- OUTSIDE RECORDS SUMMARY | 2024-01-27 07:01 | XMS_ITS | Encounter Summary ---
Author Name Unknown Organization [facility] Address [address] [place] [address] Care Team Providers Care Company Truck Driver Name Role Phone Elsewhere, Pcp Primary Care Provider Unavailabl e Reason for Visit * Outpatient (Routine) - Closed Specialty Diagnoses / Procedures Referred By Dotty t Referred To Contact Preventive Medicine Diagnoses Alcoholic Cirrhosis Of Liver With Ascites (HCC) Katja Umana M.D. [address] [place] [phone] [facility] Referral ID Status Reason Start Date Expiration Date Visits Re quested Visits Authorized [id number] Closed 10/15/2023 04/15/2025 1 1 Encounter Details Date Type Department Care Team (Latest Contact Info) Description 12/08/2023 10:30 AM CDT Comprehensive Visit Section of Infectious Diseases in [place], [place] [address] [place] [phone] Katja Umana M.D. [address] [place] [phone] Brianna Anglin APRN, C.N.P., D.N.P. [address] [place] [phone] Counseling And Review Vaccination Status (Primary [...] 0.6 oz pur e alcohol) [facility] Utilities Answer Date Recorded In [...] your living situation today? I have a [facility] place to live 10/15/2023 Sex and Gender Information Value Date Recorded Sex Assigned at Female 10/06/2023 10:50 AM DIE MAKER APPRENTICE Gender Identity Female 10/06/2023 10:50 AM DIE MAKER APPRENTICE Sexual Orientation Straight 10/06/2023 10 :50 AM DIE MAKER APPRENTICE documented as of this encounter Patient Instructions [...] followed by the Hepatobiliary team here at [facility]. They have requested for patient to [...] PM CDT Appointment Division of Gastroenterology in [place], [place] [address] [place] [phone] Katja Umana M.D. [address] [place] [phone] Hayden Smith M.D. 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
--- OUTSIDE RECORDS SUMMARY | 2024-01-27 07:01 | XMS_ITS | Encounter Summary ---
Author Name Unknown Organization [facility] Address [address] [place] [address] Care Team Providers Care Tobacco Stemmer Machine Name Role Phone Unavailable Primary Care Provider Unavailabl e Reason for Referral * Outpatient (Routine) - Closed Specialty Diagnoses / Procedures Referred By Contac t Referred To Contact Diagnoses Ascites Procedures US Paracentesis with Imaging Guidance Felipe Morales M.D. [address] [place] [phone] [facility] Referral ID Status Reason Start Date Expiration Date Visits Re quested Visits Authorized [id number] Closed 10/11/2023 10/10/2024 1 1 S LEDGER ADMINISTRATOR Reason for Visit * Outpatient (Routine) - Closed Specialty Diagnoses / Procedures Referred By Dotty oakes Referred To Contact Diagnoses Ascites Procedures US Paracentesis with Imaging Guidance Felipe Morales M.D. 200 [place] [phone] [facility] Referral ID Status Reason Start Date Expiration Date Visits Re quested Visits Authorized [id number] Closed 10/11/2023 10/10/2024 1 1 Encounter Details Date Type Department Care Team (Latest Contact Info) Description 11/19/2023 10:08 AM SALES LEDGER ADMINISTRATOR - 11/19/2023 12:51 PM SALES LEDGER ADMINISTRATOR Hospital Encounter Department of Radiology, [facility], in [place], [place] [address] [place] [phone] Felipe Morales M.D. [address] [place] [phone] Ascites Discharge Disposition: Home or Self Care Social History Tobacco Use Types Packs/Day Years Used Date Smoking Tobacco: Every Day Cigarettes 0.5 40 Smokeless Tobacco: Never Alcohol Use Standard Drinks/Week Comments Not Currently 0 (1 standard drink = 0.6 oz pur e alcohol) [facility] Utilities Answer Date Recorded In the past 12 months has th e [employer], gas, oil, or water company threatened to [...] Assigned at Female 10/06/2023 10:50 AM SALES LEDGER ADMINISTRATOR Gender Identity Female 10/06/2023 10:50 AM SALES LEDGER ADMINISTRATOR Sexual Orientation Straight 10/06/2023 10 :50 AM SALES LEDGER ADMINISTRATOR documented as of this encounter Last Filed Vital Signs Vital Sign Reading Time Taken Comments Blood Pressure 91/46 11/19/2023 11:45 AM SALES LEDGER ADMINISTRATOR Pulse 84 11/19/2023 11:45 AM SALES LEDGER ADMINISTRATOR Temperature - - Respiratory Rate - - Oxygen Saturation 100% 11/19/2023 11:45 AM SALES LEDGER ADMINISTRATOR Inhaled Oxygen Concentration - - Weight - [...] PM CDT Appointment Division of Gastroenterology in [place], [place] [address] [place] [phone] Katja Umana M.D. [address] [place] [phone] Hayden Smith M.D. [address] [place] [phone] 03/21/2024 1:00 PM CDT Virtual Visit Department of Nicotine Dependence, [facility], in [place], [place] [address] [place] [phone] Scheduled Orders Name Type Priority Associated Diagnoses Order Schedule Bacterial Culture, Aerobic + Susceptibility Microbiology Timed Ascites For manual release during upcoming procedure for 1 Occurrences starting 11/19/2023 until 11/19/2023 documented as of this encounter Procedures Procedure Name Priority Date/Time Associated Diagnosis Comments US PARACENTESIS WITH IMAGING GUIDANCE RAD - Routine (most inpatients and all outpatients) 11/19/2023 11:55 AM SALES LEDGER ADMINISTRATOR Ascites BACTERIAL CULTURE, AEROBIC + SUSC Timed 11/19/2023 10:50 AM SALES LEDGER ADMINISTRATOR Ascites CELL COUNT AND DIFFERENTIAL, BF Timed 11/19/2023 10:50 AM SALES LEDGER ADMINISTRATOR Ascites documented in this encounter Results * US Paracentesis with Imaging Guidance (11/19/2023 11:55 AM SALES LEDGER ADMINISTRATOR) Anatomical Region Laterality Modality Abdomen, Ultrasound RST LOS, Ultrasound ARZ LOS, Procedure FLA LOS, Abdominal FLA LOS, Procedural, Procedural NWWI LOS N/A Ultrasound Impressions 11/19/2023 12:26 PM SALES LEDGER ADMINISTRATOR Ultrasound-guided paracentesis. EP Narrative 11/19/2023 12:26 PM SALES LEDGER ADMINISTRATOR EXAM: US PARACENTESIS WITH IMAGING GUIDANCE PRE-PROCEDURE: [...] Culture, Aerobic + Susceptibility (11/19/2023 10:50 AM SALES LEDGER ADMINISTRATOR) Bacterial Culture, Aerobic + Susc No growth after 5 days of incubation. 11/24/2023 8:27 AM CDT DTL Fluid (Peritoneal Fluid) 11/19/2023 10:50 AM SALES LEDGER ADMINISTRATOR Narrative [facility] - 11/24/2023 8:27 AM CDT Bacterial Culture: Received Bactec aerobic and Bactec anaerobic bottles Felipe Morales M.D. LAB MICROBIOLOGY - GENERAL ORDERABLES [facility] [address] [place] [address], [facility] [address] [place] [address] * Cell Count and Differential, Body Fluid (11/19/2023 10:50 AM SALES LEDGER ADMINISTRATOR) Fluid Type Peritoneal /Paracente sis 11/19/2023 12:39 PM SALES LEDGER ADMINISTRATOR DHPM Gross Appearance Serous 11/19/19 24 12:39 PM SALES LEDGER ADMINISTRATOR DHPM Total Nucleated Cells 201 /mcL 11/19/2023 12:39 PM SALES LEDGER ADMINISTRATOR [facility] Comment: ----REFERENCE VALUE---- Synovial: <150 /mcL Peritoneal: <500 /mcL Pleural: <500 /mcL Pericardial: <500 /mcL ----ADDITIONAL INFORMATION---- This test has been modified from the gymnastics coach or instructor's instructions. Its performance characteristics were determined by [facility] in a manner consistent with CLIA requirements. This test has not been cleared or approved by the U.S. Food and Drug Administration. Neutrophils 20 % 11/19/2023 1:42 PM SALES LEDGER ADMINISTRATOR DHPM Comment: ----REFERENCE VALUE---- Synovial: <25% Peritoneal: <25% Pleural: <25% Pericardial: <25% Lymphocytes 16 Synovial <75% % 11/19/2023 1:42 PM SALES LEDGER ADMINISTRATOR [facility]PM Monocytes/Macropha ges 60 Synovial <70% % 11/19/2023 1:42 PM SALES LEDGER ADMINISTRATOR DHPM Other Cells 4 % 11/19/2023 1:42 PM SALES LEDGER ADMINISTRATOR [facility] Comment: ----REFERENCE VALUE---- The reference range and other method performance specifications have not been established for this bodyfluid. The test result must be integrated into the clinical context for interpretation. Other Cells Are: See Comment 11/19/2023 1:42 PM SALES LEDGER ADMINISTRATOR [facility] Comment:Mesothelial cells Comment See Comment 11/19/2023 1:42 PM SALES LEDGER ADMINISTRATOR [facility] Comment:No blasts or maligna nt cells seen. Reviewed by: Jose 11/19/2023 1:42 PM SALES LEDGER ADMINISTRATOR [facility] Fluid (Peritoneal Fluid) 11/19/2023 10:50 AM SALES LEDGER ADMINISTRATOR Felipe Morales M.D. LAB BODY FLUIDS AND STOOLS ORDERABLES [facility] [address] [place] [address], [facility] 200 [place] [address] documented in this encounter Visit Diagnoses Diagnosis [...] provider's discretion) New Bag 11/19/2023 11:11 AM SALES LEDGER ADMINISTRATOR 50 g 100 mL/hr lidocaine 10 mg/mL (1 %) injection (XYLOCAINE) As needed, Starting on Wed11/19/23 at 1056, Intra-Op Given 11/19/2023 10:56 AM SALES LEDGER ADMINISTRATOR 5 mL Abdominal Tissue documented in this encounter Active and Recently Administered Medications Times are shown in SALES LEDGER ADMINISTRATOR. Scheduled Medication Order 11/17/2023 11/18/2023 11/19/2023 albumin [...] (New Bag - Prov ider: Abbie Koo RMark)1249 (Stopped - Provider: Theodore Faye R.N.) PRN Medication Order 11/17/2023 11/18/2023 11/19/2023 lidocaine 10 mg/mL (1 %) injection (XYLOCAINE) (COMPLETED) As needed, Starting on Wed11/19/23 at 1056, Intra-Op 1056 (Given - Provid er: Anne Marie Pike M.D.) documented in this encounter Additional Health Concerns Assessment Noted Time PHQ-9 Depression Total Score: 3 10/20/19 24 7:30 AM SALES LEDGER ADMINISTRATOR documented as of this encounter
--- OUTSIDE RECORDS SUMMARY | 2024-01-27 07:01 | XMS_ITS | Encounter Summary ---
Author Name Unknown Organization [facility] Address [address] [place] [address] Care Team Providers Care Cement Tester Assistant Name Role Phone Unavailable Primary Care Provider Unavailabl e Reason for Referral * Outpatient (Routine) - Closed Specialty Diagnoses / Procedures Referred By Contlulu t Referred To Contact Nicotine Dependence Sudha Bernstein M.A., DonnS.W., C.T.T.S. [address] [place] [phone] [facility] Referral ID Status Reason Start Date Expiration Date Visits Re quested Visits Authorized [id number] Closed 11/11/2023 05/12/2025 1 1 Scheduling Instructions Please schedule a follow up phone visit at 11:00am, ACE MINER Encounter Details Date Type Department Care Team (Late st Contact Info) Description 11/11/2023 Orders Only Department of Nicotine Dependence, [facility] in [place], [place] [address] [place] [phone] Sudha Bernstein M.A., Edwin.S.W., C.T.T.S. [address] [place] [phone] Social History Tobacco Use Types Packs/Day Years [...] Date Recorded Employment status Working with temporary [employer] 10/15/2023 Housing Stability Answer Date Recorded What is your living situation today? I have a [facility] place to live 10/15/2023 Sex and Gender Information Value Date Recorded Sex Assigned at Female 10/06/2023 10:50 AM SURFACE MINER Gender Identity Female 10/06/2023 10:50 AM SURFACE MINER Sexual Orientation Straight 10/06/2023 10 :50 AM SURFACE MINER documented as of this encounter Plan of Treatment Upcoming Encounters Date Type Department Care Team (Late st Contact Info) Description 02/04/2024 2:15 PM CDT Appointment Division of Gastroenterology in [place], [place] [address] [place] [phone] Katja Umana M.D. [address] [place] [phone] Hayden Smith M.D. [address] [place] [phone] 03/21/2024 1:00 PM CDT Virtual Visit Department of Nicotine Dependence, [facility], in [place], [place] [address] [place] [phone] Scheduled Referrals Name Type Priority Associated Diagnoses Order Schedule Nicotine Dependence office visit (clinic) Outpatient Referral Routine Expected: 11/18/2023, Expires: 02/08/2025 documented as of this encounter Visit Diagnoses Not on filedocumented in this encounter Additional Health Concerns Assessment Noted Time PHQ-9 Depression Total Score: 3 10/20/19 24 7:30 AM SURFACE MINER documented as of this encounter
--- OUTSIDE RECORDS SUMMARY | 2024-01-27 07:01 | XMS_ITS | Encounter Summary ---
Author Name Unknown Organization [facility] Address [address] [place] [address] Care Team Providers Care Pug Machine Operator Name Role Phone Elsewhere, Pcp Primary Care Provider Unavailabl e Reason for Referral * Outpatient (Routine) - Authorized Specialty Diagnoses / Procedures Referred By Dotty t Referred To Contact Diagnoses Ascites Procedures US Paracentesis with Imaging Guidance Katja Umana M.D. [address] [place] [phone] [facility] Referral ID Status Reason Start Date Expiration Date V isits Requested Visits Authorized [id number] Authorized 11/23/2023 11/22/2024 1 1 Reason for Visit * Reason Onset Date Comments Order Request 11/22/2023 Encounter Details Date Type Department Care Team (Latest Contact Info) Description 11/22/2023 Clinical Communication Division of Gastroenterology in [place], [place] [address] [place] [phone] Katja Umana M.D. [address] [place] [phone] Order Request Social History Tobacco Use Types Packs/Day Years Used Date Smoking Tobacco: Every Day Cigarettes 0.5 40 Smokeless Tobacco: Never Alcohol Use Standard Drinks/Week Comments Not Currently 0 (1 standard drink = 0.6 oz pur e alcohol) [facility] Utilities Answer Date Recorded In [...] Date Recorded Employment status Working with temporary [employer] tions 10/15/2023 Housing Stability Answer Date Recorded What is your living situation today? I have a [facility] place to live 10/15/2023 Sex and Gender Information Value Date Recorded Sex Assigned at Female 10/06/2023 10:50 AM LEHR ATTENDANT Gender Identity Female 10/06/2023 10:50 AM LEHR ATTENDANT Sexual Orientation Straight 10/06/2023 10 :50 AM LEHR ATTENDANT documented as of this encounter Plan of Treatment Upcoming Encounters Date Type Department Care Team (Late st Contact Info) Description 02/04/2024 2:15 PM CDT Appointment Division of Gastroenterology in [place], [place] [address] [place] [phone] Katja Umana M.D. 200 [place] [phone] Hayden Smith M.D. 200 [place] [phone] 03/21/2024 1:00 PM CDT Virtual Visit Department of Nicotine Dependence, [facility], in [place], [place] 200 [place] [phone] Scheduled Orders Name Type Priority Associated Diagnoses Order Schedule US Paracentesis with Imaging Guidance Imaging RAD - Routine (most inpatients and all outpatients) Ascites Expected: 12/03/2023, Expires: 02/22/2025 documented as of this encounter Visit Diagnoses Diagnosis Ascites- Primary documented in this encounter Additional Health Concerns Assessment Noted Time PHQ-9 Depression Total Score: 3 10/20/19 24 7:30 AM LEHR ATTENDANT documented as of this encounter Care Teams Pug Machine Operator Relationship Specialty Start Date End Date Elsewhere, Pcp PCP - General Family Medicine 12/07/23 documented as of this encounter
--- OUTSIDE RECORDS SUMMARY | 2024-01-27 07:01 | XMS_ITS | Encounter Summary ---
Author Name Unknown Organization [facility] Address [address] [place] [address] Care Team Providers Care Computational Physicist Name Role Phone Unavailable Primary Care Provider Unavailabl e Reason for Referral * Outpatient (Routine) - Closed Specialty Diagnoses / Procedures Referred By Contac t Referred To Contact Diagnoses Ascites Procedures US Paracentesis with Imaging Guidance Felipe Morales M.D. 200 [place] [address] [facility] Referral ID Status Reason Start Date Expiration Date Visits Re quested Visits Authorized [id number] Closed 10/11/2023 10/10/2024 1 1 GER FRENCH Reason for Visit * Outpatient (Routine) - Closed Specialty Diagnoses / Procedures Referred By Dotty oakes Referred To Contact Diagnoses Ascites Procedures US Paracentesis with Imaging Guidance Felipe Morales M.D. 200 [place] [address] [facility] Referral ID Status Reason Start Date Expiration Date Visits Re quested Visits Authorized [id number] Closed 10/11/2023 10/10/2024 1 1 Encounter Details Date Type Department Care Team (Latest Contact Info) Description 11/05/2023 9:29 AM MANAGER FRENCH - 11/05/2023 12:20 PM MANAGER FRENCH Hospital Encounter Department of Radiology, [facility], in [place], [place] [address] [place] [address] Felipe Morales M.D. [address] [place] [phone] Ascites Discharge Disposition: Home or Self Care Social History Tobacco Use Types Packs/Day Years Used Date Smoking Tobacco: Every Day Cigarettes 0.5 40 Smokeless Tobacco: Never Alcohol Use Standard Drinks/Week Comments Not Currently 0 (1 standard drink = 0.6 oz pur e alcohol) [facility] Utilities Answer Date Recorded In the past 12 months has th e [employer], gas, oil, or water company threatened to [...] Assigned at Female 10/06/2023 10:50 AM MANAGER FRENCH Gender Identity Female 10/06/2023 10:50 AM MANAGER FRENCH Sexual Orientation Straight 10/06/2023 10 :50 AM MANAGER FRENCH documented as of this encounter Last Filed Vital Signs Vital Sign Reading Time Taken Comments Blood Pressure 106/56 11/05/2023 11:17 AM MANAGER FRENCH Pulse 88 11/05/2023 11:17 AM MANAGER FRENCH Temperature - - Respiratory Rate - - Oxygen Saturation 100% 11/05/2023 11:17 AM MANAGER FRENCH Inhaled Oxygen Concentration - - Weight - - Height - - Body Mass Index - - documented in this encounter Discharge Instructions * Attachments The following attachments cannot be sent through Care Everywhere. * Paracentesis (Latvian) documented in this encounter Medications at Time [...] PM CDT Appointment Division of Gastroenterology in [place], [place] [address] [place] [phone] Katja Umana M.D. [address] [place] [phone] Hayden Smith M.D. [address] [place] [phone] 03/21/2024 1:00 PM CDT Virtual Visit Department of Nicotine Dependence, [facility] in [place], [place] [address] [place] [address] documented as of this encounter Procedures Procedure Name Priority Date/Time Associated Diagnosis Comments US PARACENTESIS WITH IMAGING GUIDANCE RAD - Routine (most inpatients and all outpatients) 11/05/2023 11:25 AM MANAGER FRENCH Ascites BACTERIAL CULTURE, AEROBIC + SUSC Timed 11/05/2023 10:07 AM MANAGER FRENCH Ascites CELL COUNT AND DIFFERENTIAL, BF Timed 11/05/2023 10:07 AM MANAGER FRENCH Ascites documented in this encounter Results * US Paracentesis with Imaging Guidance (11/05/2023 11:25 AM MANAGER FRENCH) Anatomical Region Laterality Modality Abdomen, Ultrasound RST LOS, Ultrasound ARZ LOS, Procedure FLA LOS, Abdominal FLA LOS, Procedural, Procedural NWWI LOS N/A Ultrasound Impressions 11/05/2023 11:28 AM MANAGER FRENCH Ultrasound-guided diagnostic and therapeutic paracentesis. NR Narrative 11/05/2023 11:28 AM MANAGER FRENCH EXAM: US PARACENTESIS WITH IMAGING GUIDANCE PRE-PROCEDURE: [...] lower quadrant peritoneal space. Needle size: 5 Yi centesis catheter. Volume aspirated: 6.8 liters aspirated, [...] lower quadrant peritoneal space. Needle size: 5 Yi centesis catheter. Volume aspirated: 6.8 liters aspirated, [...] NR Felipe Morales M.D. IMG US PROCEDURES * Cell Count and Differential, Body Fluid (11/05/2023 10:07 AM MANAGER FRENCH) Fluid Type Peritoneal /Paracente sis 11/05/2023 11:13 AM MANAGER FRENCH DHPM Gross Appearance Serous 11/05/19 24 11:13 AM MANAGER FRENCH DHPM Total Nucleated Cells 282 /mcL 11/05/2023 11:13 AM MANAGER FRENCH DHPM Comment: ----REFERENCE VALUE---- Synovial: <150 /mcL Peritoneal: <500 /mcL Pleural: <500 /mcL Pericardial: <500 /mcL ----ADDITIONAL INFORMATION---- This test has been modified from the wildlife biology internship's instructions. Its performance characteristics were determined by [facility] in a manner consistent with CLIA requirements. This test has not been cleared or approved by the U.S. Food and Drug Administration. Neutrophils 3 % 11/05/2023 12:54 PM MANAGER FRENCH DHPM Comment: ----REFERENCE VALUE---- Synovial: <25% Peritoneal: <25% Pleural: <25% Pericardial: <25% Lymphocytes 26 Synovial <75% % 11/05/2023 12:54 PM MANAGER FRENCH DHPM Monocytes/Macropha ges 64 Synovial <70% % 11/05/2023 12:54 PM MANAGER FRENCH DHPM Other Cells 7 % 11/05/2023 12:54 PM MANAGER FRENCH DHPM Comment: ----REFERENCE VALUE---- The reference range and other method performance specifications have not been established for this bodyfluid. The test result must be integrated into the clinical context for interpretation. Other Cells Are: See Comment 11/05/2023 12:54 PM MANAGER FRENCH DHPM Comment:Mesothelial cells Comment See Comment 11/05/2023 12:54 PM MANAGER FRENCH DHPM Comment:No blasts or maligna nt cells seen.Erythrophagocytosis present. Reviewed by: Jose 11/05/2023 12:54 PM MANAGER FRENCH DHPM Fluid (Peritoneal Fluid) 11/05/2023 10:07 AM MANAGER FRENCH Felipe Morales M.D. LAB BODY FLUIDS AND STOOLS ORDERABLES Performing Organization Address City/State/[facility] Co de Phone Number [facility] 200 [place] [address], [facility] 200 [place] [address] * Bacterial Culture, Aerobic + Susceptibility (11/05/2023 10:07 AM MANAGER FRENCH) Bacterial Culture, Aerobic + Susc No growth after 5 days of incubation. 2023 7:33 AM MANAGER FRENCH DTL Fluid (Peritoneal Fluid) 11/05/2023 10:07 AM MANAGER FRENCH Narrative [facility] - 2023 7:33 AM MANAGER FRENCH Bacterial Culture: Received Bactec aerobic and Bactec anaerobic bottles Felipe Morales M.D. LAB MICROBIOLOGY - GENERAL ORDERABLES Performing Organization Address [facility] Co de Phone Number [facility] 200 [place] [address], [facility] [place] 200 [place] [address] documented in this encounter Visit Diagnoses Diagnosis [...] 100 mL/hr New Bag 11/05/2023 10:39 AM MANAGER FRENCH 25 g albumin human 25 % injection 25 g 25 g, intravenous, Once, On Wed11/05/23 at 1130, For 1 dose, If no infusion rate specified: Administer the 25% solution at 100 mL/hr New Bag 11/05/2023 11:20 AM MANAGER FRENCH 25 g lidocaine 10 mg/mL (1 %) injection (XYLOCAINE) As needed, Starting on Wed11/05/23 at 1023, Intra-Op Given 11/05/2023 10:23 AM MANAGER FRENCH 10 mL Abdominal Tissue documented in this encounter Active and Recently Administered Medications Times are shown in MANAGER FRENCH. Scheduled Medication Order 11/03/2023 11/04/2023 11/05/2023 albumin [...] Score: 3 10/20/19 24 7:30 AM MANAGER FRENCH documented as of this encounter
--- OUTSIDE RECORDS SUMMARY | 2024-01-27 07:01 | XMS_ITS | Encounter Summary ---
Author Name Unknown Organization [facility] Address [address] [place] [address] Care Team Providers Care Open Developer Operator Name Role Phone Elsewhere, Pcp Primary Care Provider Unavailabl e Reason for Visit * Reason Comments Nicotine Dependence * Outpatient (Routine) - Closed Specialty Diagnoses / Procedures Referred By Contac t Referred To Contact Nicotine Dependence Sudha Bernstein M.A., Yesy.I.C.S.W., C.T.T.S. [address] [place] [phone] [facility] Referral ID Status Reason Start Date Expiration Date Visits Re quested Visits Authorized [id number] Closed 11/11/2023 05/12/2025 1 1 Encounter Details Date Type Department Care Team (Late st Contact Info) Description 11/18/2023 11:00 AM DATA PROCESSING CONSULTANT Virtual Visit Department of Nicotine Dependence, [facility], in [place], [place] [address] [place] [phone] Sudha Bernstein M.A., Yesy.I.C.S.W., C.T.T.S. [address] [place] [phone] Nicotine Dependence Cigarettes With Withdrawal (Primary Dx) Social History Tobacco Use Types Packs/Day Years Used Date Smoking Tobacco: Every Day Cigarettes 0.5 40 Smokeless Tobacco: Never Alcohol Use Standard Drinks/Week Comments Not Currently 0 (1 standard drink = 0.6 oz pur e alcohol) [facility] Utilities Answer Date Recorded In the past 12 months has [employer], gas, oil, or water company threatened to [...] your living situation today? I have a [facility] place to live 10/15/2023 Sex and Gender Information Value Date Recorded Sex Assigned at Female 10/06/2023 10:50 AM DATA PROCESSING CONSULTANT Gender Identity Female 10/06/2023 10:50 AM DATA PROCESSING CONSULTANT Sexual Orientation Straight 10/06/2023 10 :50 AM DATA PROCESSING CONSULTANT documented as of this encounter Progress Notes * Sudha Bernstein M.A., L.KarrieC.S.W., M.S.W. - 11/18/2023 11:00 AM CST OBJECTIVE Monique Yvonneargentina Redmond attended a phone follow-up appointment regarding [...] 10 minutes was spent on tobacco counseling. PROCESSING CONSULTANT documented in this encounter Plan of Treatment Upcoming Encounters Date Type Department Care Team (Late st Contact Info) Description 02/04/2024 2:15 PM CDT Appointment Division of Gastroenterology in [place], [place] [address] [place] [phone] Katja Umana M.D. [address] [place] [phone] Hayden Smith M.D. [address] [place] [phone] 03/21/2024 1:00 PM CDT Virtual Visit Department of Nicotine Dependence, [facility], in [place], [place] [address] [place] [address] documented as of this encounter Visit Diagnoses Diagnosis Nicotine Dependence Cigarettes With Withdrawal- Primary documented in this encounter Additional Health Concerns Assessment Noted Time PHQ-9 Depression Total Score: 3 10/20/19 24 7:30 AM DATA PROCESSING CONSULTANT documented as of this encounter Care Teams Open Developer Operator Relationship Specialty Start Date End Date Elsewhere, Pcp PCP - General Family Medicine 12/07/23 documented as of this encounter
--- OUTSIDE RECORDS SUMMARY | 2024-01-27 07:01 | XMS_ITS | Encounter Summary ---
Author Name Unknown Organization [facility] Address [address] [place] [address] Care Team Providers Care Bee Rancher Name Role Phone Elsewhere, Pcp Primary Care Provider Unavailabl e Reason for Visit * Reason Comments Nicotine Dependence * Outpatient (Routine) - Closed Specialty Diagnoses / Procedures Referred By Contac t Referred To Contact Nicotine Dependence Sudha Bernstein M.A., Yesy.I.C.S.W., C.T.T.S. [address] [place] [phone] [facility] Referral ID Status Reason Start Date Expiration Date Visits Re quested Visits Authorized [id number] Closed 11/18/2023 05/19/2025 1 1 Encounter Details Date Type Department Care Team (Late st Contact Info) Description 12/20/2023 2:00 PM CDT Virtual Visit Department of Nicotine Dependence, [facility], in [place], [place] [address] [place] [phone] Sudha Bernstein M.A., Yesy.I.C.S.W., C.T.T.S. [address] [place] [phone] Nicotine Dependence Cigarettes With Withdrawal (Primary Dx) Social History Tobacco Use Types Packs/Day Years Used Date Smoking Tobacco: Every Day Cigarettes 0.5 41 Started: 02/11/1983 Passive Smoke Exposure: Never Smokeless Tobacco: Never Alcohol Use Standard Drinks/Week Comments Not Currently 0 (1 standard drink = 0.6 oz pur e alcohol) [facility] Utilities Answer Date Recorded In the past 12 months has [employer], gas, oil, or water company threatened to [...] Date Recorded Employment status Working with temporary [employer] 10/15/2023 Housing Stability Answer Date Recorded What is your living situation today? I have a [facility] place to live 10/15/2023 Sex and Gender Information Value Date Recorded Sex Assigned at Female 10/06/2023 10:50 AM FIRER DIESEL LOCOMOTIVE Gender Identity Female 10/06/2023 10:50 AM FIRER DIESEL LOCOMOTIVE Sexual Orientation Straight 10/06/2023 10 :50 AM FIRER DIESEL LOCOMOTIVE documented as of this encounter Progress Notes * Sudha Bernstein M.A., L.I.C.S.W., M.S.W. - 12/20/2023 2:00 PM CDT OBJECTIVE Monique Redmond attended a phone follow-up appointment regarding her tobacco use. ASSESSMENT [facility] staff contacted the patient as a [...] patient was asked if she would like [facility] staff to contact her in the [...] PM CDT Appointment Division of Gastroenterology in [place], [place] [address] [place] [phone] Katja Umana M.D. [address] [place] [phone] Hayden Smith M.D. [address] [place] [phone] 03/21/2024 1:00 PM CDT Virtual Visit Department of Nicotine Dependence, [facility], in [place], [place] [address] [place] [phone] documented as of this encounter Visit Diagnoses Diagnosis Nicotine Dependence Cigarettes With Withdrawal- Primary documented in this encounter Additional Health Concerns Assessment Noted Time PHQ-9 Depression Total Score: 3 10/20/19 24 7:30 AM FIRER DIESEL LOCOMOTIVE documented as of this encounter Care Teams Bee Rancher Relationship Specialty Start Date End Date Elsewhere, Pcp PCP - General Family Medicine 12/07/23 documented as of this encounter
--- OUTSIDE RECORDS SUMMARY | 2024-01-27 07:01 | XMS_ITS | Encounter Summary ---
Author Name Unknown Organization [facility] Address [address] [place] [address] Care Team Providers Care Track Hoe Operator Name Role Phone Elsewhere, Pcp Primary Care Provider Unavailabl e Reason for Referral * Outpatient (Routine) - Authorized Specialty Diagnoses / Procedures Referred By Contac t Referred To Contact Diagnoses Alcoholic Cirrhosis Of Liver With Ascites (HCC) Ascites Procedures US Paracentesis with Imaging Guidance Katja Umana M.D. 200 [place] [phone] [facility] Referral ID Status Reason Start Date Expiration Date V isits Requested Visits Authorized [id number] Authorized 12/09/2023 12/08/2024 8 8 Reason for Visit * Outpatient (Routine) - Authorized Specialty Diagnoses / Procedures Referred By Dotty oakes Referred To Contact Diagnoses Alcoholic Cirrhosis Of Liver With Ascites (HCC) Ascites Procedures US Paracentesis with Imaging Guidance Katja Umana M.D. 200 [place] [phone] [facility] Referral ID Status Reason Start Date Expiration Date V isits Requested Visits Authorized [id number] Authorized 12/09/2023 12/08/2024 8 8 Encounter Details Date Type Department Care Team (Latest Contact Info) Description 12/16/2023 9:34 AM CDT - 12/16/2023 11:22 AM CDT Hospital Encounter Department of Radiology, [facility], in [place], [place] [address] [place] [address] Katja Umana M.D. [address] [place] [phone] Alcoholic Cirrhosis Of Liver With Ascites (HCC); Ascites Discharge Disposition: Home or Self Care Social History Tobacco Use Types Packs/Day Years Used Date Smoking Tobacco: Every Day Cigarettes 0.5 41 Started: 02/11/1983 Passive Smoke Exposure: Never Smokeless Tobacco: Never Alcohol Use Standard Drinks/Week Comments Not Currently 0 (1 standard drink = 0.6 oz pur e alcohol) [facility] Utilities Answer Date Recorded In the past 12 months has th e electric, gas, oil, or water [employer] threatened to shut off services in your [...] Sex Assigned at Female 10/06/2023 10:50 AM HEALTH CENTER MANAGER Gender Identity Female 10/06/2023 10:50 AM HEALTH CENTER MANAGER Sexual Orientation Straight 10/06/2023 10 :50 AM HEALTH CENTER MANAGER documented as of this encounter Last [...] be sent through Care Everywhere. * Paracentesis (Kinyarwanda) documented in this encounter Medications at Time of Discharge Medication Sig Dispensed Refills Start Date End Date acetaminophen 650 mg/20.3 mL suspension Take 650 mg by mouth every 4 (four) hours as needed (for pain). No more than 2000 mg in 24 hours 11/08/2014 furosemide (LASIX) 40 mg tablet Take 1 tablet (40 mg total) by mouth daily. 30 tablet 2 11/22/2023 02/20/2024 pantoprazole (PROTONIX) 40 mg EC tablet Take [...] by mouth at bedtime. 30 tablet 11/22/2023 lactulose (CHRONULAC) 10 gram/15 mL solution Take 30 mL (20 g total) by mouth 2 (two) times a day. Take and titrate to goal 2-3 loose bowel movements daily. 946 mL 2 12/09/2023 01/14/2024 documented as of this encounter Plan of Treatment Upcoming Encounters Date Type Department Care Team (Late st Contact Info) Description 02/04/2024 2:15 PM CDT Appointment Division of Gastroenterology in [place], [place] [address] [place] [phone] Katja Umana M.D. [address] [place] [phone] Hayden Smith M.D. [address] [place] [phone] 03/21/2024 1:00 PM CDT Virtual Visit Department of Nicotine Dependence, [facility] in [place], [place] [address] [place] [phone] documented as of this encounter Procedures Procedure [...] Ultrasound-guided paracentesis. EP Katja FOSS US PROCEDURES documented in this [...] Total Score: 3 10/20/19 24 7:30 AM HEALTH CENTER MANAGER documented as of this encounter Care Teams Track Hoe Operator Relationship Specialty Start Date End Date Elsewhere, Pcp PCP - General Family Medicine 12/07/23 documented as of this encounter
--- OUTSIDE RECORDS SUMMARY | 2024-01-27 07:01 | XMS_ITS | Encounter Summary ---
Author Name Unknown Organization [facility] Address [address] [place] [address] Care Team Providers Care Tower Technician Name Role Phone Elsewhere, Pcp Primary Care Provider Unavailabl e Reason for Referral * Outpatient (Routine) - Authorized Specialty Diagnoses / Procedures Referred By Dotty t Referred To Contact Diagnoses Ascites Procedures US Paracentesis with Imaging Guidance Katja Umana M.D. [address] [place] [phone] [facility] Referral ID Status Reason Start Date Expiration Date V isits Requested Visits Authorized [id number] Authorized 12/30/2023 12/29/2024 4 4 Encounter Details Date Type Department Care Team (Latest Contact Info) Description 12/28/2023 Clinical Communication Division of Gastroenterology in [place], [place] [address] [place] [phone] Katja Umana M.D. [address] [place] [phone] Social History Tobacco Use Types Packs/Day Years Used Date Smoking Tobacco: Every Day Cigarettes 0.5 41 Started: 02/11/1983 Passive Smoke Exposure: Never Smokeless Tobacco: Never Alcohol Use Standard Drinks/Week Comments Not Currently 0 (1 standard drink = 0.6 oz pur e alcohol) [facility] Utilities Answer Date Recorded In the past 12 months has [employer], gas, oil, or water company threatened [...] your living situation today? I have a [facility] place to live 10/15/2023 Sex and Gender Information Value Date Recorded Sex Assigned at Female 10/06/2023 10:50 AM ENTERPRISE DATA ARCHITECT Gender Identity Female 10/06/2023 10:50 AM ENTERPRISE DATA ARCHITECT Sexual Orientation Straight 10/06/2023 10 :50 AM ENTERPRISE DATA ARCHITECT documented as of this encounter Plan of Treatment Upcoming Encounters Date Type Department Care Team (Late st Contact Info) Description 02/04/2024 2:15 PM CDT Appointment Division of Gastroenterology in [place], [place] 200 [place] [address] Katja Umana M.D. 200 [place] [phone] Hayden Smith M.D. 200 [place] [phone] 03/21/2024 1:00 PM CDT Virtual Visit Department of Nicotine Dependence, [facility], in [place], [place] 200 [place] [phone] Scheduled Orders Name Type Priority Associated Diagnoses Order Schedule US Paracentesis with Imaging Guidance Imaging RAD - Routine (most inpatients and all outpatients) Ascites Expected: 01/13/2024, Expires: 03/30/2025 documented as of this encounter Visit Diagnoses Diagnosis Ascites- Primary documented in this encounter Additional Health Concerns Assessment Noted Time PHQ-9 Depression Total Score: 3 10/20/19 24 7:30 AM ENTERPRISE DATA ARCHITECT documented as of this encounter Care Teams Tower Technician Relationship Specialty Start Date End Date Elsewhere, Pcp PCP - General Family Medicine 12/07/23 documented as of this encounter
--- OUTSIDE RECORDS SUMMARY | 2024-01-27 07:01 | XMS_ITS | Encounter Summary ---
Author Name Unknown Organization [facility] Address [address] [place] [address] Care Team Providers Care Maintenance Analyst Name Role Phone Elsewhere, Pcp Primary Care Provider Unavailabl e Reason for Visit * Reason Onset Date Comments Pre-visit Intake 12/07/2023 Encounter Details Date Type Department Care Team (Latest Contact Info) Description 12/07/2023 1:45 PM CDT Clinical Communication Virtual Review in [place], [place] 200 [place] [phone] Pre-visit Intake Social History Tobacco Use Types Packs/Day Years Used Date Smoking Tobacco: Every Day Cigarettes 0.5 41 Started: 02/11/1983 Passive Smoke Exposure: Never Smokeless Tobacco: Never Alcohol Use Standard Drinks/Week Comments Not Currently 0 (1 standard drink = 0.6 oz pur e alcohol) [facility] Utilities Answer Date Recorded In the [...] Assigned at Female 10/06/2023 10:50 AM MEDICAL STAFF SERVICES COORDINATOR Gender Identity Female 10/06/2023 10:50 AM MEDICAL STAFF SERVICES COORDINATOR Sexual Orientation Straight 10/06/2023 10 :50 AM MEDICAL STAFF SERVICES COORDINATOR documented as of this encounter Plan of Treatment Upcoming Encounters Date Type Department Care Team (Late st Contact Info) Description 02/04/2024 2:15 PM CDT Appointment Division of Gastroenterology in [place], [place] [address] [place] [address] Katja Umana M.D. [address] [place] [phone] Hayden Smith M.D. [address] [place] [phone] 03/21/2024 1:00 PM CDT Virtual Visit Department of Nicotine Dependence, [facility], in [place], [place] [address] [place] [address] documented as of this encounter Visit Diagnoses Not on filedocumented in this encounter Additional Health Concerns Assessment Noted Time PHQ-9 Depression Total Score: 3 10/20/19 24 7:30 AM MEDICAL STAFF SERVICES COORDINATOR documented as of this encounter Care Teams Maintenance Analyst Relationship Specialty Start Date End Date Elsewhere, Pcp PCP - General Family Medicine 12/07/23 documented as of this encounter
--- OUTSIDE RECORDS SUMMARY | 2024-01-27 07:01 | XMS_ITS | Encounter Summary ---
Author Name Unknown Organization [facility] Address [address] [place] [address] Care Team Providers Care Equipment Sales Specialist Name Role Phone Elsewhere, Pcp Primary Care Provider Unavailabl e Encounter Details Date Type Department Care Team (Latest Contact Info) Description 12/21/2023 Clinical Communication Brent [facility]ta [facility] in [place], [place] [address] [place] [address] Katja Umana M.D. [address] [place] [phone] Social History Tobacco Use Types Packs/Day Years Used Date Smoking Tobacco: Every Day Cigarettes 0.5 41 Started: 02/11/1983 Passive Smoke Exposure: Never Smokeless Tobacco: Never Alcohol Use Standard Drinks/Week Comments Not Currently 0 (1 standard drink = 0.6 oz pur e alcohol) [facility] Utilities Answer Date Recorded In the past 12 months has e [employer], gas, oil, or water [employer] threatened to shut off services in your [...] Date Recorded Employment status Working with temporary [employer] 10/15/2023 Housing Stability Answer Date Recorded What is your living situation today? I have a [facility] place to live 10/15/2023 Sex and Gender Information Value Date Recorded Sex Assigned at Female 10/06/2023 10:50 AM EXPORT PACKER Gender Identity Female 10/06/2023 10:50 AM EXPORT PACKER Sexual Orientation Straight 10/06/2023 10 :50 AM EXPORT PACKER documented as of this encounter Miscellaneous Notes * Telephone Encounter - Liana Estrada - 12/21/2023 10:54 AM CDT Left message for patient to call back on 12/20. documented in this encounter Plan of Treatment Upcoming Encounters Date Type Department Care Team (Late st Contact Info) Description 02/04/2024 2:15 PM CDT Appointment Division of Gastroenterology in [place], [place] [address] [place] [phone] Katja Umana M.D. 200 [place] [phone] Hayden Smith M.D. 200 [place] [address] 03/21/2024 1:00 PM CDT Virtual Visit Department of Nicotine Dependence, [facility], in [place], [place] [address] [place] [address] documented as of this encounter Visit Diagnoses Not on filedocumented in this encounter Additional Health Concerns Assessment Noted Time PHQ-9 Depression Total Score: 3 10/20/19 24 7:30 AM EXPORT PACKER documented as of this encounter Care Teams Equipment Sales Specialist Relationship Specialty Start Date End Date Elsewhere, Pcp PCP - General Family Medicine 12/07/23 documented as of this encounter
--- OUTSIDE RECORDS SUMMARY | 2024-01-27 07:01 | XMS_ITS | Encounter Summary ---
Author Name Unknown Organization [facility] Address [address] [place] [address] Care Team Providers Care Wool Carder Name Role Phone Elsewhere, Pcp Primary Care Provider Unavailabl e Reason for Visit * Reason Onset Date Comments Scheduling 12/20/2023 Encounter Details Date Type Department Care Team (Latest Contact Info) Description 12/20/2023 Clinical Communication Division of Gastroenterology in [place], [place] [address] [place] [address] Katja Umana M.D. [address] [place] [address] Scheduling Social History Tobacco Use Types Packs/Day Years Used Date Smoking Tobacco: Every Day Cigarettes 0.5 41 Started: 02/11/1983 Passive Smoke Exposure: Never Smokeless Tobacco: Never Alcohol Use Standard Drinks/Week Comments Not Currently 0 (1 standard drink = 0.6 oz pur e alcohol) [facility] Utilities Answer Date Recorded In the past 12 months has [facility] [employer], gas, oil, or water [employer] threatened to shut off services in your [...] Date Recorded Employment status Working with temporary [employer] 10/15/2023 Housing Stability Answer Date Recorded What is your living situation today? I have a [facility] place to live 10/15/2023 Sex and Gender Information Value Date Recorded Sex Assigned at Female 10/06/2023 10:50 AM CUSTOMS AND BORDER PROTECTION OFFICER Gender Identity Female 10/06/2023 10:50 AM CUSTOMS AND BORDER PROTECTION OFFICER Sexual Orientation Straight 10/06/2023 10 :50 AM CUSTOMS AND BORDER PROTECTION OFFICER documented as of this encounter Plan of Treatment Upcoming Encounters Date Type Department Care Team (Late st Contact Info) Description 02/04/2024 2:15 PM CDT Appointment Division of Gastroenterology in [place], [place] [address] [place] [phone] Katja Umana M.D. [address] [place] [phone] Hayden Smith M.D. [address] [place] [phone] 03/21/2024 1:00 PM CDT Virtual Visit Department of Nicotine Dependence, [facility], in [place], [place] [address] [place] [phone] documented as of this encounter Visit Diagnoses Not on filedocumented in this encounter Additional Health Concerns Assessment Noted Time PHQ-9 Depression Total Score: 3 10/20/19 24 7:30 AM CUSTOMS AND BORDER PROTECTION OFFICER documented as of this encounter Care Teams Wool Carder Relationship Specialty Start Date End Date Elsewhere, Pcp PCP - General Family Medicine 12/07/23 documented as of this encounter
--- OUTSIDE RECORDS SUMMARY | 2024-01-27 07:01 | XMS_ITS | Encounter Summary ---
Author Name Unknown Organization [facility] Address [address] [place] [address] Care Team Providers Care Steward/Stewardess Wine Name Role Phone Unavailable Primary Care Provider Unavailabl e Reason for Visit * Reason Comments Nicotine Dependence * Outpatient (Routine) - Closed Specialty Diagnoses / Procedures Referred By Contac t Referred To Contact Nicotine Dependence Sudha Bernstein M.A., Yesy.I.C.S.W., C.T.T.S. [address] [place] [phone] [facility] Referral ID Status Reason Start Date Expiration Date Visits Re quested Visits Authorized [id number] Closed 10/28/2023 04/28/2025 1 1 Encounter Details Date Type Department Care Team (Late st Contact Info) Description 11/11/2023 11:00 AM WAREHOUSE ASSOCIATE Virtual Visit Department of Nicotine Dependence, [facility], in [place], [place] [address] [place] [phone] Sudha Bernstein M.A., Yesy.I.C.S.W., C.T.T.S. [address] [place] [phone] Nicotine Dependence Cigarettes With Withdrawal (Primary Dx) Social History Tobacco Use Types Packs/Day Years Used Date Smoking Tobacco: Every Day Cigarettes 0.5 40 Smokeless Tobacco: Never Alcohol Use Standard Drinks/Week Comments Not Currently 0 (1 standard drink = 0.6 oz pur e alcohol) [place] Utilities Answer Date Recorded In the past 12 months has [employer] electric, gas, oil, or water company threatened [...] your living situation today? I have a [facility] place to live 10/15/2023 Sex and Gender Information Value Date Recorded Sex Assigned at Female 10/06/2023 10:50 AM WAREHOUSE ASSOCIATE Gender Identity Female 10/06/2023 10:50 AM WAREHOUSE ASSOCIATE Sexual Orientation Straight 10/06/2023 10 :50 AM WAREHOUSE ASSOCIATE documented as of this encounter Progress Notes * Sudha Bernstein M.A., L.KarrieC.S.W., M.S.W. - 11/11/2023 11:00 AM CST OBJECTIVE Monique Russell Ruy attended a phone follow-up appointment regarding her [...] concerns. The patient denied interest in having [facility] staff ask the [facility] medicalprovider if they recommend a different [...] to tape and the patient was informed [facility] staff can ask the [facility] medical provider to write on the [...] 25 minutes was spent on tobacco counseling. HOUSE ASSOCIATE documented in this encounter Plan of Treatment Upcoming Encounters Date Type Department Care Team (Late st Contact Info) Description 02/04/2024 2:15 PM CDT Appointment Division of Gastroenterology in [place], [place] [address] [place] [phone] Katja Umana M.D. [address] [place] [phone] Hayden Smith M.D. [address] [place] [phone] 03/21/2024 1:00 PM CDT Virtual Visit Department of Nicotine Dependence, [facility], in [place], [place] [address] [place] [phone] documented as of this encounter Visit Diagnoses Diagnosis Nicotine Dependence Cigarettes With Withdrawal- Primary documented in this encounter Additional Health Concerns Assessment Noted Time PHQ-9 Depression Total Score: 3 10/20/19 24 7:30 AM WAREHOUSE ASSOCIATE documented as of this encounter
--- OUTSIDE RECORDS SUMMARY | 2024-01-27 07:01 | XMS_ITS | Encounter Summary ---
Author Name Unknown Organization [facility] Address [address] [place] [address] Care Team Providers Care Deli Cutter Slicer Name Role Phone Elsewhere, Pcp Primary Care Provider Unavailabl e Reason for Referral * Outpatient (Routine) - Authorized Specialty Diagnoses / Procedures Referred By Contac t Referred To Contact Nutrition Diagnoses Alcoholic Cirrhosis Of Liver With Ascites (HCC) Sarcopenia Katja Umana M.D. [address] [place] [phone] [facility] Referral ID Status Reason Start Date Expiration Date V isits Requested Visits Authorized [id number] Authorized 12/09/2023 06/09/2025 1 1 * Outpatient (Routine) - Authorized Specialty Diagnoses / Procedures Referred By Contac t Referred To Contact Diagnoses Alcoholic Cirrhosis Of Liver With Ascites (HCC) Ascites Procedures US Paracentesis with Imaging Guidance Katja Umana M.D. [address] [place] [phone] [facility] Referral ID Status Reason Start Date Expiration Date V isits Requested Visits Authorized [id number] Authorized 12/09/2023 12/08/2024 8 8 Reason for Visit * Outpatient (Routine) - Closed Specialty Diagnoses / Procedures Referred By Contact Referred To Contact Gastroenterology and Hepatology Katja Umana M.D. [address] [place] [address] [facility] Referral ID Status Reason Start Date Expiration Date Visits Re quested Visits Authorized [id number] Closed 10/28/2023 04/28/2025 1 1 Encounter Details Date Type Department Care Team (Latest Contact Info) Description 12/09/2023 4:30 PM CDT Office Visit Brent motta [facility] in [place], [place] [address] [place] [phone] Katja Umana M.D. [address] [place] [phone] Rose Palacios M.D. 200 [place] [phone] Alcoholic Cirrhosis Of Liver With Ascites (HCC) [...] the past 12 months has th e [employer], gas, oil, or water [employer] threatened to shut off services in your [...] Date Recorded Employment status Working with temporary [employer] tions 10/15/2023 Housing Stability Answer Date Recorded What is your living situation today? I have a [facility] place to live 10/15/2023 Sex and Gender Information Value Date Recorded Sex Assigned at Female 10/06/2023 10:50 AM WAITER/WAITRESS SECOND CLASS Gender Identity Female 10/06/2023 10:50 AM WAITER/WAITRESS SECOND CLASS Sexual Orientation Straight 10/06/2023 10 :50 AM WAITER/WAITRESS SECOND CLASS documented as of this encounter Last Filed [...] Mrs. Redmond was hospitalized locally from 12/02/2023-12/06/2023 ([facility]) for progressive fatigue and decreased [...] last colonoscopy was performed in 2019 in [place]. I am not able to see this report. She is recommended to follow-up with her PCP for completing surveillance colonoscopy. If she is not able tocomplete this locally, then we can arrange for this to be done at [facility]. All questions were answered. This plan will be discussed with Dr. Morales. BILLING: I personally spent over half of a total 35 minutes in counseling and discussion with the patient and coordination of care as described above. Signed: Katja Umana M.D. Gastroenterology and Hepatology Fellow Pager [phone] documented in this encounter Plan of Treatment Upcoming Encounters Date Type Department Care Team (Late st Contact Info) Description 02/04/2024 2:15 PM CDT Appointment Division of Gastroenterology in [place], [place] [address] [place] [address] Katja Umana M.D. [address] [place] [address] Hayden Smith M.D. [address] [place] [address] 03/21/2024 1:00 PM CDT Virtual Visit Department of Nicotine Dependence, [facility], in [place], [place] [address] [place] [phone] Scheduled Referrals Name Type Priority Associated Diagnoses [...] CDT Katja Umana M.D. [facility] [address] [place] [address], [place] DTL [address] [address] * (ABNORMAL) Comprehensive Metabolic Panel (12/09/2023 5:16 PM CDT) [facility] Potassium, S 5.0 3.6 - 5.2 [...] CDT Katja Umana M.D. LAB BLOOD ADD-ON [facility] [address] [place] [address], [facility] DTL [facility] [address] [place] [address] * (ABNORMAL) CBC with Differential, Blood (12/09/2023 [...] CDT Katja Umana M.D. LAB BLOOD ADD-ON [facility] [address] [place] [address], [facility] DTL [facility] [address] [place] [phone] [facility] [address] [place] [address] documented in this encounter Visit Diagnoses Diagnosis Alcoholic Cirrhosis Of Liver With Ascites (HCC)- Primary Ascites Sarcopenia Alcoholic Cirrhosis Of Liver With Ascites (HCC) Ascites documented in this encounter Additional Health Concerns Assessment Noted Time PHQ-9 Depression Total Score: 3 10/20/19 24 7:30 AM WAITER/WAITRESS SECOND CLASS documented as of this encounter Care Teams Deli Cutter Slicer Relationship Specialty Start Date End Date Elsewhere, Pcp PCP - General Family Medicine 12/07/23 documented as of this encounter
--- OUTSIDE RECORDS SUMMARY | 2024-01-27 07:02 | XMS_ITS | Encounter Summary ---
Author Name Unknown Organization [facility] Address [address] [place] [address] Care Team Providers Care Pre Sales Technical Engineer Name Role Phone Unavailable Primary Care Provider Unavailabl e Reason for Referral * Outpatient (Routine) - Closed Specialty Diagnoses / Procedures Referred By Dotty oakes Referred To Contact Diagnoses Ascites Procedures US Paracentesis with Imaging Guidance Katja Umana M.D. [address] [place] [phone] [facility] Referral ID Status Reason Start Date Expiration Date Visits Re quested Visits Authorized [id number] Closed 10/18/2023 10/17/2024 1 1 ENTATION TEAM MEMBER Encounter Details Date Type Department Care Team (Latest Contact Info) Description 10/18/2023 Clinical Communication Division of Gastroenterology in [place], [place] [address] [place] [phone] Katja Umana M.D. [address] [place] [phone] Social History Tobacco Use Types Packs/Day Years Used Date Smoking Tobacco: Every Day Cigarettes 0.5 40 Smokeless Tobacco: Never Alcohol Use Standard Drinks/Week Comments Not Currently 0 (1 standard drink = 0.6 oz pur e alcohol) [facility] Utilities Answer Date Recorded In the past [...] Sex Assigned at Female 10/06/2023 10:50 AM PRESENTATION TEAM MEMBER Gender Identity Female 10/06/2023 10:50 AM PRESENTATION TEAM MEMBER Sexual Orientation Straight 10/06/2023 10 :50 AM PRESENTATION TEAM MEMBER documented as of this encounter Plan of Treatment Upcoming Encounters Date Type Department Care Team (Late st Contact Info) Description 02/04/2024 2:15 PM CDT Appointment Division of Gastroenterology in [place], [place] [address] [place] [address] Katja Umana M.D. [address] [place] [phone] Hayden Smith M.D. [address] [place] [address] 03/21/2024 1:00 PM CDT Virtual Visit Department of Nicotine Dependence, [facility], in [place], [place] [address] [place] [address] documented as of this encounter Results * US Paracentesis with Imaging Guidance (10/22/2023 10:18 AM PRESENTATION TEAM MEMBER) Anatomical Region Laterality Modality Abdomen, Ultrasound RST LOS, Ultrasound ARZ LOS, Procedure FLA LOS, Abdominal FLA LOS, Procedural, Procedural NWWI LOS N/A Ultrasound Impressions 10/22/2023 10:26 AM PRESENTATION TEAM MEMBER Ultrasound-guided diagnostic and therapeutic paracentesis. NR Narrative 10/22/2023 10:26 AM PRESENTATION TEAM MEMBER EXAM: US PARACENTESIS WITH IMAGING GUIDANCE PRE-PROCEDURE: [...]
--- OUTSIDE RECORDS SUMMARY | 2024-01-27 07:02 | XMS_ITS | Encounter Summary ---
Author Name Unknown Organization [facility] Address [address] [place] [address] Care Team Providers Care Panel Machine Operator Name Role Phone Unavailable Primary Care Provider Unavailabl e Reason for Visit * Reason Comments Nicotine Dependence * Outpatient (Routine) - Closed Specialty Diagnoses / Procedures Referred By Contac t Referred To Contact Pulmonary Medicine / Nicotine Dependence Diagnoses Nicotine Dependence Cigarettes Romana Diane M.D., Ph.D. [address] [place] [phone] [facility] Referral ID Status Reason Start Date Expiration Date Visits Re quested Visits Authorized [id number] Closed 10/20/2023 04/20/2025 1 1 Encounter Details Date Type Department Care Team (Late st Contact Info) Description 10/28/2023 11:00 AM CLAM DIGGER Virtual Visit Department of Nicotine Dependence, [facility], in [place], [place] [address] [place] [phone] Romana Diane M.D., Ph.D. [address] [place] [phone] Sudha Bernstein M.A., L.I.C.S.W., C.T.T.S. [address] [place] [phone] Nicotine Dependence Cigarettes Social History Tobacco Use Types Packs/Day Years Used Date Smoking Tobacco: Every Day Cigarettes 0.5 40 Smokeless Tobacco: Never Alcohol Use Standard Drinks/Week Comments Not Currently 0 (1 standard drink = 0.6 oz pur e alcohol) [facility] Utilities Answer Date Recorded In the [...] your living situation today? I have a [facility] place to live 10/15/2023 Sex and Gender Information Value Date Recorded Sex Assigned at Female 10/06/2023 10:50 AM CLAM DIGGER Gender Identity Female 10/06/2023 10:50 AM CLAM DIGGER Sexual Orientation Straight 10/06/2023 10 :50 AM CLAM DIGGER documented as of this encounter Consult Notes * Sudha Bernstein M.A., L.I.C.S.W., M.S.Dameon. - 10/28/2023 11:00 AM CST SUBJECTIVE [...] this medication being metabolized through the liver [facility] staff would need to discuss the [...] in two weeks. Patient was provided with [facility] educational materials electronically. . Patient is ready to learn, no apparant barriers to learning were identified. Patient understands and agrees with plan. 30 minutes of our visit was spent on tobacco use disorder counseling. Sudha Bernstein M.A., Sony, M.S.W. 10/28/2023 11:33 AM CLAM DIGGER DIGGER documented in this encounter Plan of Treatment Upcoming Encounters Date Type Department Care Team (Late st Contact Info) Description 02/04/2024 2:15 PM CDT Appointment Division of Gastroenterology in [place], [place] [address] [place] [phone] Katja Umana M.D. [address] [place] [phone] Hayden Smith M.D. [address] [place] [phone] 03/21/2024 1:00 PM CDT Virtual Visit Department of Nicotine Dependence, [facility], in [place], [place] [address] [place] [phone] documented as of this encounter Visit Diagnoses Diagnosis Nicotine Dependence Cigarettes documented in this encounter Additional Health Concerns Assessment Noted Time PHQ-9 Depression Total Score: 3 10/20/19 24 7:30 AM CLAM DIGGER documented as of this encounter
--- OUTSIDE RECORDS SUMMARY | 2024-01-27 07:02 | XMS_ITS | Encounter Summary ---
Author Name Unknown Organization [facility] Address [address] [place] [address] Care Team Providers Care Ambulatory Technologist Name Role Phone Unavailable Primary Care Provider Unavailabl e Encounter Details Date Type Department Care Team (Latest Contact Info) Description 10/27/2023 10:26 AM SALES AND MERCHANDISING ASSOCIATE - 10/27/2023 11:59 PM SALES AND MERCHANDISING ASSOCIATE Hospital Encounter Department of Laboratory Medicine in [address] [phone] Romana Diane M.D., Ph.D. [address] [place] [address] Alcohol Moderate Or Severe Use Disorder (Dependence) Uncomplicated (HCC) Discharge Disposition: Home or Self Care Social History Tobacco Use Types Packs/Day Years Used Date Smoking Tobacco: Every Day Cigarettes 0.5 40 Smokeless Tobacco: Never Alcohol Use Standard Drinks/Week Comments Not Currently 0 (1 standard drink = 0.6 oz pur e alcohol) [facility] Utilities Answer Date Recorded In the past [address] [employer], gas, oil, or water [email or web address] threatened to shut off services in your [...] Date Recorded Employment status Working with temporary [employer] 10/15/2023 Housing Stability Answer Date Recorded What is your living situation today? I have a [facility] place to live 10/15/2023 Sex and Gender Information Value Date Recorded Sex Assigned at Female 10/06/2023 10:50 AM SALES AND MERCHANDISING ASSOCIATE Gender Identity Female 10/06/2023 10:50 AM SALES AND MERCHANDISING ASSOCIATE Sexual Orientation Straight 10/06/2023 10 :50 AM SALES AND MERCHANDISING ASSOCIATE documented as of this encounter Medications at [...] PM CDT Appointment Division of Gastroenterology in [place], [place] [address] [place] [phone] Katja Umana M.D. [address] [place] [phone] Hayden Smith M.D. [address] [place] [phone] 03/21/2024 1:00 PM CDT Virtual Visit Department of Nicotine Dependence, [facility] in [place], [place] [address] [place] [phone] documented as of this encounter Procedures Procedure Name Priority Date/Time Associated Diagnosis Comments ETHYL GLUCURONIDE CONFIRMATION, U Routine 10/27/2023 10:38 AM SALES AND MERCHANDISING ASSOCIATE Alcohol Moderate Or Severe Use Disorder (Dependence) Uncomplicated (HCC) CONFIRMED DRUG ABUSE PANEL, U Routine 10/27/2023 10:38 AM SALES AND MERCHANDISING ASSOCIATE Alcohol Moderate Or Severe Use Disorder (Dependence) Uncomplicated (HCC) documented in this encounter Results * Drug Abuse Survey with Confirmation, Urine (10/27/2023 10:38 AM SALES AND MERCHANDISING ASSOCIATE) Alcohol Negative Cutoff: 10 mg/dL 10/28/2023 9:08 AM SALES AND MERCHANDISING ASSOCIATE SDS Amphetamines Negative Cutoff: 500 ng/mL 10/28/2023 9:08 AM SALES AND MERCHANDISING ASSOCIATE SDS Barbiturates Negative Cutoff: 200 ng/mL 10/28/2023 9:08 AM SALES AND MERCHANDISING ASSOCIATE SDS Benzodiazepines Negative Cutoff: 100 ng/mL 10/28/2023 9:08 AM SALES AND MERCHANDISING ASSOCIATE [facility] Cocaine Negative Cutoff: 150 ng/mL 10/28/2023 9:08 AM SALES AND MERCHANDISING ASSOCIATE [facility] Comment: This cocaine immunoassay targets benzoylecgonine the primary metabolite of cocaine. Opiates Negative Cutoff: 300 ng/mL 10/28/2023 9:08 AM SALES AND MERCHANDISING ASSOCIATE [facility] Phencyclidine Negative Cutoff: 25 ng/mL 10/28/2023 9:08 AM SALES AND MERCHANDISING ASSOCIATE [facility] Tetrahydrocannabinol Negative Cutoff: 50 ng/mL 10/28/2023 9:08 AM [facility] Comment: This immunoassay targets delta-9 tetrahydrocannabinol carboxylic acid (THC-COOH), a metabolite of delta-9 tetrahydrocannabinol the main psychoactive ingredient of marijuana. ----ADDITIONAL INFORMATION---- This report is intended for use in clinical monitoring or management of patients. ??It is not intended for use in employment-related testing. Urine (Urine, Midstream) 10/27/2023 10:38 AM SALES AND MERCHANDISING ASSOCIATE 10/27/2023 10:03 PM SALES AND MERCHANDISING ASSOCIATE Romana Diane M.D., Ph.D. LAB URI NE ORDERABLES Performing Organization Address [facility] Co de Phone Number [facility] [address] [place] [address] [facility] [address] [place] [address] [place] [address] * Ethyl Glucuronide Confirmation, Random, Urine (10/27/2023 10:38 AM [facility]) Ethyl Glucuronide Confirmation, U Negative Cutoff: 250 ng/mL 10/29/2023 8:19 AM [facility] Ethyl Sulfate Negative Cutoff: 100 ng/mL 10/29/2023 8:19 AM [facility] Ethyl Gluc/Sulfate Interpretation Negative. 10/29/2023 8:19 AM [facility] Comment: ----ADDITIONAL INFORMATION---- This report is intended for use in clinical monitoring and management of patients. ??It is not intended for use in employment-related testing. This test was developed and its performance characteristics determined by [facility] in a manner consistent with CLIA requirements. This test has not been cleared or approved by the U.S. Food and Drug Administration. Urine (Urine, Midstream) 10/27/2023 10:38 AM SALES AND MERCHANDISING ASSOCIATE 10/27/2023 10:00 PM SALES AND MERCHANDISING ASSOCIATE Romana Diane M.D., Ph.D. LAB URI NE ORDERABLES Performing Organization Address [facility] Co de Phone Number [facility] [address] [place] [address] [facility] [address] [place] [address] [place] [address] documented in this encounter Visit Diagnoses Diagnosis Alcohol Moderate Or Severe Use Disorder (Dependence) Uncomplicated (HCC) documented in this encounter Additional Health Concerns Assessment Noted Time PHQ-9 Depression Total Score: 3 10/20/19 24 7:30 AM SALES AND MERCHANDISING ASSOCIATE documented as of this encounter
--- OUTSIDE RECORDS SUMMARY | 2024-01-27 07:02 | XMS_ITS | Encounter Summary ---
Author Name Unknown Organization [facility] Address [address] [place] [address] Care Team Providers Care Lipstick Molder Name Role Phone Unavailable Primary Care Provider Unavailabl e Reason for Referral * Outpatient (Routine) - Closed Specialty Diagnoses / Procedures Referred By Contac t Referred To Contact Diagnoses Ascites Procedures US Paracentesis with Imaging Guidance Katja Umana M.D. 200 [place] [phone] [facility] Referral ID Status Reason Start Date Expiration Date Visits Re quested Visits Authorized [id number] Closed 10/18/2023 10/17/2024 1 1 LE TAPE STITCHER UCO Reason for Visit * Auth/Cert (Routine) Specialty Diagnoses / Procedures Referred By Contac t Referred To Contact Diagnoses Ascites Procedures US PARACENTESIS WITH IMAGING GUIDANCE Referral ID Status Reason Start Date Expiration Date Visits Re quested Visits Authorized [id number] 1 1 Encounter Details Date Type Department Care Team (Latest Contact Info) Description 10/22/2023 7:27 AM INSOLE TAPE STITCHER UCO - 10/22/2023 3:44 PM INSOLE TAPE STITCHER UCO Hospital Encounter Department of Radiology, [facility], in [place], [place] [address] [place] [phone] Katja Umana M.D. [address] [place] [phone] Ascites Discharge Disposition: Home or Self Care Social History Tobacco Use Types Packs/Day Years Used Date Smoking Tobacco: Every Day Cigarettes 0.5 40 Smokeless Tobacco: Never Alcohol Use Standard Drinks/Week Comments Not Currently 0 (1 standard drink = 0.6 oz pur e alcohol) [facility] Utilities Answer Date Recorded In the [...] living situation today? I have a [facility] place to live 10/15/2023 Sex and Gender Information Value Date Recorded Sex Assigned at Female 10/06/2023 10:50 AM INSOLE TAPE STITCHER UCO Gender Identity Female 10/06/2023 10:50 AM INSOLE TAPE STITCHER UCO Sexual Orientation Straight 10/06/2023 10 :50 AM INSOLE TAPE STITCHER UCO documented as of this encounter Last Filed Vital Signs Vital Sign Reading Time Taken Comments Blood Pressure 116/58 10/22/2023 10:10 AM INSOLE TAPE STITCHER UCO Pulse 102 10/22/2023 10:10 AM INSOLE TAPE STITCHER UCO Temperature - - Respiratory Rate - - Oxygen Saturation 100% 10/22/2023 10:10 AM INSOLE TAPE STITCHER UCO Inhaled Oxygen Concentration - - Weight - [...] PM CDT Appointment Division of Gastroenterology in [place], [place] [address] [place] [phone] Katja Umana M.D. [address] [place] [phone] Hayden Smith M.D. [address] [place] [phone] 03/21/2024 1:00 PM CDT Virtual Visit Department of Nicotine Dependence, [facility], in [place], [place] [address] [place] [phone] documented as of this encounter Procedures Procedure Name Priority Date/Time Associated Diagnosis Comments US PARACENTESIS WITH IMAGING GUIDANCE RAD - Routine (most inpatients and all outpatients) 10/22/2023 10:18 AM INSOLE TAPE STITCHER UCO Ascites BACTERIAL CULTURE, AEROBIC + SUSC Timed 10/22/2023 8:54 AM INSOLE TAPE STITCHER UCO Ascites CELL COUNT AND DIFFERENTIAL, BF Timed 10/22/2023 8:54 AM INSOLE TAPE STITCHER UCO Ascites documented in this encounter Results * US Paracentesis with Imaging Guidance (10/22/2023 10:18 AM INSOLE TAPE STITCHER UCO) Anatomical Region Laterality Modality Abdomen, Ultrasound RST LOS, Ultrasound ARZ LOS, Procedure FLA LOS, Abdominal FLA LOS, Procedural, Procedural NWWI LOS N/A Ultrasound Impressions 10/22/2023 10:26 AM INSOLE TAPE STITCHER UCO Ultrasound-guided diagnostic and therapeutic paracentesis. NR Narrative 10/22/2023 10:26 AM INSOLE TAPE STITCHER UCO EXAM: US PARACENTESIS WITH IMAGING GUIDANCE PRE-PROCEDURE: [...] and Differential, Body Fluid (10/22/2023 8:54 AM INSOLE TAPE STITCHER UCO) Fluid Type Peritoneal /Paracente sis 10/22/2023 10:30 AM INSOLE TAPE STITCHER UCO DHPM Gross Appearance Serous 10/22/19 24 10:30 AM INSOLE TAPE STITCHER UCO DHPM Total Nucleated Cells 171 /mcL 10/22/2023 10:30 AM INSOLE TAPE STITCHER UCO DHPM Comment: ----REFERENCE VALUE---- Synovial: <150 /mcL Peritoneal: <500 /mcL Pleural: <500 /mcL Pericardial: <500 /mcL ----ADDITIONAL INFORMATION---- This test has been modified from the animal cytologist's instructions. Its performance characteristics were determined by [facility] in a manner consistent with CLIA requirements. This test has not been cleared or approved by the U.S. Food and Drug Administration. Neutrophils 2 % 10/22/2023 11:42 AM INSOLE TAPE STITCHER UCO DHPM Comment: ----REFERENCE VALUE---- Synovial: <25% Peritoneal: <25% Pleural: <25% Pericardial: <25% Lymphocytes 14 Synovial <75% % 10/22/2023 11:42 AM INSOLE TAPE STITCHER UCO DHPM Monocytes/Macropha ges 70 Synovial <70% % 10/22/2023 11:42 AM INSOLE TAPE STITCHER UCO DHPM Other Cells 14 % 10/22/2023 11:42 AM INSOLE TAPE STITCHER UCO DHPM Comment: ----REFERENCE VALUE---- The reference range and other method performance specifications have not been established for this bodyfluid. The test result must be integrated into the clinical context for interpretation. Other Cells Are: See Comment 10/22/2023 11:42 AM INSOLE TAPE STITCHER UCO PM Comment:Mesothelial cells Comment See Comment 10/22/2023 11:42 AM INSOLE TAPE STITCHER UCO DHPM Comment:No blasts or maligna nt cells seen. Reviewed by: Jose 10/22/2023 11:42 AM INSOLE TAPE STITCHER UCO DHPM Fluid (Peritoneal Fluid) 10/22/2023 8:54 AM INSOLE TAPE STITCHER UCO Felipe Morales M.D. LAB BODY FLUIDS AND STOOLS ORDERABLES Performing Organization Address [facility] Co de Phone Number [facility] [address] [place] [address], [facility] [address] [place] [address] * Bacterial Culture, Aerobic + Susceptibility (10/22/2023 8:54 AM INSOLE TAPE STITCHER UCO) Bacterial Culture, Aerobic + Susc No growth after 5 days of incubation. 10/27/2023 11:39 AM INSOLE TAPE STITCHER UCO DT Fluid (Peritoneal Fluid) 10/22/2023 8:54 AM INSOLE TAPE STITCHER UCO Narrative [facility] - 10/27/2023 11:39 AM INSOLE TAPE STITCHER UCO Bacterial Culture: Placed in Bactec anaerobic bottle Bacterial Culture: Received Bactec aerobic bottle Felipe Morales M.D. LAB MICROBIOLOGY - GENERAL ORDERABLES Performing Organization Address [facility] Co de Phone Number [facility] [address] [place] [address], [facility] [address] [place] [address] documented in this encounter Visit Diagnoses Diagnosis [...] provider's discretion) New Bag 10/22/2023 9:07 AM INSOLE TAPE STITCHER UCO 25 g albumin human 25 % injection [...] provider's discretion) New Bag 10/22/2023 9:31 AM INSOLE TAPE STITCHER UCO 25 g lidocaine 10 mg/mL (1 %) injection (XYLOCAINE) As needed, Starting on Wed10/22/23 at 0858, Intra-Op Given 10/22/2023 8:58 AM INSOLE TAPE STITCHER UCO 10 mL Right Upper Abdomen documented in this encounter Active and Recently Administered Medications Times are shown in INSOLE TAPE STITCHER UCO. Scheduled Medication Order 10/20/2023 10/21/2023 10/22/2023 albumin [...] (New Bag - Prov ider: Meagan Turk RMark)1016 (Stopped - Provider: Brent Hartley R.N.) PRN Medication Order 10/20/2023 10/21/2023 10/22/2023 lidocaine 10 mg/mL (1 %) injection (XYLOCAINE) (COMPLETED) As needed, Starting on Wed10/22/23 at 0858, Intra-Op 0858 (Given - Provid er: Felipe Da Silva M.D.) documented in this encounter Additional Health Concerns Assessment Noted Time PHQ-9 Depression Total Score: 3 10/20/19 24 7:30 AM INSOLE TAPE STITCHER UCO documented as of this encounter
--- OUTSIDE RECORDS SUMMARY | 2024-01-27 07:02 | XMS_ITS | Encounter Summary ---
Author Name Unknown Organization [facility] Address [address] [place] [address] Care Team Providers Care Health Care Consultant Name Role Phone Unavailable Primary Care Provider Unavailabl e Reason for Referral * Outpatient (Routine) - Closed Specialty Diagnoses / Procedures Referred By Contact Referred To Contact Gastroenterology and Hepatology Katja Aguilera M.D. [address] [place] [phone] [facility] Referral ID Status Reason Start Date Expiration Date Visits Re quested Visits Authorized [id number] Closed 10/28/2023 04/28/2025 1 1 AIN CUTTER Encounter Details Date Type Department Care Team (Late st Contact Info) Description 10/28/2023 Orders Only [facility] in [place], [place] [address] [place] [phone] Katja Aguilera M.D. [address] [place] [phone] Alcoholic Cirrhosis Of Liver With Ascites (HCC) (Primary Dx) Social History Tobacco Use Types Packs/Day Years Used Date Smoking Tobacco: Every Day Cigarettes 0.5 40 Smokeless Tobacco: Never Alcohol Use Standard Drinks/Week Comments Not Currently 0 (1 standard drink = 0.6 oz pur e alcohol) [facility] Utilities Answer Date Recorded In the past 12 months has [employer], gas, oil, or water company threatened [...] your living situation today? I have a [facility] place to live 10/15/2023 Sex and Gender Information Value Date Recorded Sex Assigned at Female 10/06/2023 10:50 AM CURTAIN CUTTER Gender Identity Female 10/06/2023 10:50 AM CURTAIN CUTTER Sexual Orientation Straight 10/06/2023 10 :50 AM CURTAIN CUTTER documented as of this encounter Miscellaneous Notes * Addendum Note - Katja Aguilera M.D. - 10/28/2023 2:39 PM CSTAddended by: KATJA AGUILERA on: 10/28/2023 02:48 PM Modules accepted: Orders AIN CUTTER documented in this encounter Plan of Treatment Upcoming Encounters Date Type Department Care Team (Late st Contact Info) Description 02/04/2024 2:15 PM CDT Appointment Division of Gastroenterology in [place], [place] [address] [place] [phone] Katja Aguilera M.D. [address] [place] [phone] Hayden Smith M.D. [address] [place] [phone] 03/21/2024 1:00 PM CDT Virtual Visit Department of Nicotine Dependence, [facility] in [place], [place] [address] [place] [phone] Scheduled Referrals Name Type Priority Associated Diagnoses Order Schedule Gastroenterology and Hepatology office visit (clinic) Outpatient Referral Routine Expected: 12/14/2023, Expires: 01/25/2025 documented as of this encounter Results * (ABNORMAL) Basic Metabolic Panel (11/01/2023 12:49 PM CURTAIN CUTTER) Potassium, P 4.1 3.6 - 5.2 mmol/L 11/01/2023 1:13 PM CURTAIN CUTTER CNFL Sodium, P 128(L) 135 - 145 mmol/L 11/01/2023 1:13 PM CURTAIN CUTTER [facility] Chloride, P 95(L) 98 - 107 mmol/L 11/01/2023 1:13 PM CURTAIN CUTTER [facility] Bicarbonate, P 26 22 - 29 mmol/L 11/01/2023 1:13 PM CURTAIN CUTTER [facility] Anion Gap, P 7 7 - 15 11/01/2023 1:13 PM CURTAIN CUTTER [facility] BUN (Blood Urea Nitrogen), P 10 6 - 21 mg/dL 11/01/2023 1:13 PM CURTAIN CUTTER [facility] Creatinine 0.42(L) 0.59 - 1.04 mg/dL 11/01/2023 1:13 PM CURTAIN CUTTER [facility] Estimated GFR (eGFR) >90 >=60 mL/min/BSA 11/01/2023 1:13 PM CURTAIN CUTTER [facility] Comment: Estimated GFR calculated using the 2020 CKD_EPI creatinine equation. Calcium, Total, P 8.3(L) 8.8 - 10.2 mg/dL 11/01/2023 1:13 PM CURTAIN CUTTER [facility] Glucose, P 105 70 - 140 mg/dL 11/01/2023 1:13 PM CURTAIN CUTTER [facility] Blood (Blood, Venous) 11/01/2023 12:49 PM CURTAIN CUTTER 11/01/2023 12:54 PM CURTAIN CUTTER Katja Aguilera M.D. LAB BLOOD ADD-ON [facility] [address] [place] [address], [facility] CNFL [facility] [place] [address] documented in this encounter Visit Diagnoses Diagnosis Alcoholic Cirrhosis Of Liver With Ascites (HCC)- Primary documented in this encounter Additional Health Concerns Assessment Noted Time PHQ-9 Depression Total Score: 3 10/20/19 24 7:30 AM CURTAIN CUTTER documented as of this encounter
--- OUTSIDE RECORDS SUMMARY | 2024-01-27 07:02 | XMS_ITS | Encounter Summary ---
Author Name Unknown Organization [facility] Address [address] [place] [address] Care Team Providers Care Youth Agent Name Role Phone Unavailable Primary Care Provider Unavailabl e Reason for Referral * Outpatient (Routine) - Closed Specialty Diagnoses / Procedures Referred By Delgadoac t Referred To Contact Diagnoses Ascites Procedures US Paracentesis with Imaging Guidance Felipe Morales M.D. 200 [place] [phone] [facility] Referral ID Status Reason Start Date Expiration Date Visits Re quested Visits Authorized [id number] Closed 10/11/2023 10/10/2024 1 1 RN AND CONTEMPORARY ART CURATOR * Outpatient (Routine) - Closed Specialty Diagnoses / Procedures Referred By Dotty t Referred To Contact Diagnoses Ascites Procedures US Paracentesis with Imaging Guidance Felipe Morales M.D. 200 [place] [phone] [facility] Referral ID Status Reason Start Date Expiration Date Visits Re quested Visits Authorized [id number] Closed 10/11/2023 10/10/2024 1 1 RN AND CONTEMPORARY ART CURATOR Reason for Visit * Reason Onset Date Comments Hepatobiliary 10/08/2023 Ascites elijah Encounter Details Date Type Department Care Team (Latest Contact Info) Description 10/08/2023 Clinical Communication Division of Gastroenterology in [place], [place] [address] [place] [phone] Felipe Morales M.D. 200 [place] [phone] Hepatobiliary (Ascites elijah) Social History Tobacco Use Types Packs/Day Years Used Date Smoking Tobacco: Every Day Cigarettes 0.5 40 Smokeless Tobacco: Never Alcohol Use Standard Drinks/Week Comments Not Currently 0 (1 standard drink = 0.6 oz pur e alcohol) [facility] Utilities Answer Date Recorded In the past 12 months has e [employer], gas, oil, or water [employer] threatened to shut off services in your [...] Date Recorded Employment status Working with temporary [employer] tions 10/15/2023 Housing Stability Answer Date Recorded What is your living situation today? I have a [facility] place to live 10/15/2023 Sex and Gender Information Value Date Recorded Sex Assigned at Female 10/06/2023 10:50 AM MODERN AND CONTEMPORARY ART CURATOR Gender Identity Female 10/06/2023 10:50 AM MODERN AND CONTEMPORARY ART CURATOR Sexual Orientation Straight 10/06/2023 10 :50 AM MODERN AND CONTEMPORARY ART CURATOR documented as of this encounter Plan of Treatment Upcoming Encounters Date Type Department Care Team (Late st Contact Info) Description 02/04/2024 2:15 PM CDT Appointment Division of Gastroenterology in [place], [place] [address] [place] [phone] Katja Umana M.D. [address] [place] [phone] Hayden Smith M.D. [address] [place] [phone] 03/21/2024 1:00 PM CDT Virtual Visit Department of Nicotine Dependence, [facility] in [place], [place] [address] [place] [phone] documented as of this encounter Results * US Paracentesis with Imaging Guidance (11/19/2023 11:55 AM MODERN AND CONTEMPORARY ART CURATOR) Anatomical Region Laterality Modality Abdomen, Ultrasound RST LOS, Ultrasound ARZ LOS, Procedure FLA LOS, Abdominal FLA LOS, Procedural, Procedural NWWI LOS N/A Ultrasound Impressions 11/19/2023 12:26 PM MODERN AND CONTEMPORARY ART CURATOR Ultrasound-guided paracentesis. EP Narrative 11/19/2023 12:26 PM MODERN AND CONTEMPORARY ART CURATOR EXAM: US PARACENTESIS WITH IMAGING GUIDANCE PRE-PROCEDURE: [...] Paracentesis with Imaging Guidance (11/05/2023 11:25 AM MODERN AND CONTEMPORARY ART CURATOR) Anatomical Region Laterality Modality Abdomen, Ultrasound RST LOS, Ultrasound ARZ LOS, Procedure FLA LOS, Abdominal FLA LOS, Procedural, Procedural NWWI LOS N/A Ultrasound Impressions 11/05/2023 11:28 AM MODERN AND CONTEMPORARY ART CURATOR Ultrasound-guided diagnostic and therapeutic paracentesis. NR Narrative 11/05/2023 11:28 AM MODERN AND CONTEMPORARY ART CURATOR EXAM: US PARACENTESIS WITH IMAGING GUIDANCE PRE-PROCEDURE: [...] lower quadrant peritoneal space. Needle size: 5 Omani centesis catheter. Volume aspirated: 6.8 liters aspirated, [...] lower quadrant peritoneal space. Needle size: 5 Omani centesis catheter. Volume aspirated: 6.8 liters aspirated, [...]
--- OUTSIDE RECORDS SUMMARY | 2024-01-27 07:02 | XMS_ITS | Encounter Summary ---
Author Name Unknown Organization [facility] Address [address] [place] [address] Care Team Providers Care Right Of Way Worker Name Role Phone Unavailable Primary Care Provider Unavailabl e Encounter Details Date Type Department Care Team (Latest Contact Info) Description 11/01/2023 12:28 PM LANDSCAPE SPECIALIST - 11/01/2023 11:59 PM LANDSCAPE SPECIALIST Hospital Encounter Department of Laboratory Medicine in [address] [phone] Katja Umana M.D. [address] [place] [phone] Alcoholic Cirrhosis Of Liver With Ascites (HCC) Discharge Disposition: Home or Self Care Social History Tobacco Use Types Packs/Day Years Used Date Smoking Tobacco: Every Day Cigarettes 0.5 40 Smokeless Tobacco: Never Alcohol Use Standard Drinks/Week Comments Not Currently 0 (1 standard drink = 0.6 oz pur e alcohol) [facility] Utilities Answer Date Recorded In the past 12 months has [employer], gas, oil, or water [employer] threatened to shut off services in [...] Date Recorded Employment status Working with temporary [employer] 10/15/2023 Housing Stability Answer Date Recorded What is your living situation today? I have a [facility] place to live 10/15/2023 Sex and Gender Information Value Date Recorded Sex Assigned at Female 10/06/2023 10:50 AM LANDSCAPE SPECIALIST Gender Identity Female 10/06/2023 10:50 AM LANDSCAPE SPECIALIST Sexual Orientation Straight 10/06/2023 10 :50 AM LANDSCAPE SPECIALIST documented as of this encounter Medications [...] PM CDT Appointment Division of Gastroenterology in [place], [place] [address] [place] [phone] Katja Umana M.D. [address] [place] [phone] Hayden Smith M.D. [address] [place] [phone] 03/21/2024 1:00 PM CDT Virtual Visit Department of Nicotine Dependence, [facility], in [place], [place] [address] [place] [phone] documented as of this encounter Procedures Procedure Name Priority Date/Time Associated Diagnosis Comments BASIC METABOLIC PANEL, S/P Routine 11/01/2023 12:49 PM LANDSCAPE SPECIALIST Alcoholic Cirrhosis Of Liver With Ascites (HCC) documented in this encounter Results * (ABNORMAL) Basic Metabolic Panel (11/01/2023 12:49 PM LANDSCAPE SPECIALIST) Potassium, P 4.1 3.6 - 5.2 mmol/L 11/01/2023 1:13 PM LANDSCAPE SPECIALIST CNFL Sodium, P 128(L) 135 - 145 mmol/L 11/01/2023 1:13 PM LANDSCAPE SPECIALIST CNFL Chloride, P 95(L) 98 - 107 mmol/L 11/01/2023 1:13 PM LANDSCAPE SPECIALIST CNFL Bicarbonate, P 26 22 - 29 mmol/L 11/01/2023 1:13 PM LANDSCAPE SPECIALIST CNFL Anion Gap, P 7 7 - 15 11/01/2023 1:13 PM LANDSCAPE SPECIALIST CNFL BUN (Blood Urea Nitrogen), P 10 6 - 21 mg/dL 11/01/2023 1:13 PM LANDSCAPE SPECIALIST CNFL Creatinine 0.42(L) 0.59 - 1.04 mg/dL 11/01/2023 1:13 PM LANDSCAPE SPECIALIST CNFL Estimated GFR (eGFR) >90 >=60 mL/min/BSA 11/01/2023 1:13 PM LANDSCAPE SPECIALIST CNFL Comment: Estimated GFR calculated using the 2020 CKD_EPI creatinine equation. Calcium, Total, P 8.3(L) 8.8 - 10.2 mg/dL 11/01/2023 1:13 PM LANDSCAPE SPECIALIST CNFL Glucose, P 105 70 - 140 mg/dL 11/01/2023 1:13 PM LANDSCAPE SPECIALIST CNFL Blood (Blood, Venous) 11/01/2023 12:49 PM LANDSCAPE SPECIALIST 11/01/2023 12:54 PM LANDSCAPE SPECIALIST Katja Umana M.D. LAB BLOOD ADD-ON Performing Organization Address City/State/[facility] Co de Phone Number [facility] [address] [place] [phone], [facility] CNFL [facility] in [address] [address] documented in this encounter Visit Diagnoses Diagnosis Alcoholic Cirrhosis Of Liver With Ascites (HCC) documented in this encounter Additional Health Concerns Assessment Noted Time PHQ-9 Depression Total Score: 3 10/20/19 24 7:30 AM LANDSCAPE SPECIALIST documented as of this encounter
--- OUTSIDE RECORDS SUMMARY | 2024-01-27 07:02 | XMS_ITS ---
Author Name Unknown Organization [facility] Address [address] [place] [address] Care Team Providers Care Program Evaluator Name Role Phone Elsewhere, Pcp Primary Care Provider Unavailabl e Transplant Episode Liver Candidate [facility] ([place], [place]) - [facility] Referred on 01/26/2024 Marked as Active on 01/26/2024 Liver CoordinatorTXP PRE LIVER NURSE TEAM ROCH Phone: N/A Fax: N/A Email: N/A Scores Score Value Updated Expires Exceptions/[place] sons CPRA Not available UNOS MELD Not available MELD (Calc) 24 12/09/2023 Care Team Name Role Phone Fax Email TXP PRE LIVER NURSE TEAM ROCH Liver Coordinator N/A N/A N/A Katja Umana M.D. Referring Provider [phone] [email or web address] Pre-Transplant Referred: 01/26/2024
--- OUTSIDE RECORDS SUMMARY | 2024-01-27 07:02 | XMS_ITS | Encounter Summary ---
Author Name Unknown Organization [facility] Address [address] [place] [address] Care Team Providers Care Suction Worker Name Role Phone Unavailable Primary Care Provider Unavailabl e Encounter Details Date Type Department Care Team (Latest Contact Info) Description 10/24/2023 Clinical Communication Division of Gastroenterology in [place], [place] [address] [place] [phone] Katja Aguilera M.D. [address] [place] [phone] Social History Tobacco Use Types Packs/Day Years [...] Sex Assigned at Female 10/06/2023 10:50 AM ENGINEHOUSE BRAKEMAN Gender Identity Female 10/06/2023 10:50 AM ENGINEHOUSE BRAKEMAN Sexual Orientation Straight 10/06/2023 10 :50 AM ENGINEHOUSE BRAKEMAN documented as of this encounter Progress Notes [...] I have sent an order to her [facility] Rajiv Taylor. She also reports ongoing difficulty with sleep, despite taking melatonin 10 mg nig htly. We will initiate trazodone at low dose, with 50 mg nightly. She was in agreement with the plan. NEHOUSE BRAKEMAN documented in this encounter Miscellaneous Notes * Addendum Note - Katja Aguilera M.D. - 10/24/2023 11:17 AM CSTAddended by: KATJA AGUILERA on: 10/24/2023 11:17 AM Modules accepted: Orders NEHOUSE BRAKEMAN documented in this encounter Plan of Treatment Upcoming Encounters Date Type Department Care Team (Late st Contact Info) Description 02/04/2024 2:15 PM CDT Appointment Division of Gastroenterology in [place], [place] [address] [place] [phone] Katja Aguilera M.D. [address] [place] [phone] Hayden Smith M.D. [address] [place] [phone] 03/21/2024 1:00 PM CDT Virtual Visit Department of Nicotine Dependence, [facility], in [place], [place] [address] [place] [phone] documented as of this encounter Results * (ABNORMAL) Basic Metabolic Panel (10/27/2023 10:33 AM ENGINEHOUSE BRAKEMAN) [facility] Potassium, P 3.6 3.6 - 5.2 mmol/L 10/27/2023 10:57 AM ENGINEHOUSE BRAKEMAN CNFL Sodium, P 125(L) 135 - 145 mmol/L 10/27/2023 10:57 AM ENGINEHOUSE BRAKEMAN CNFL Chloride, P 92(L) 98 - 107 mmol/L 10/27/2023 10:57 AM ENGINEHOUSE BRAKEMAN CNFL Bicarbonate, P 21(L) 22 - 29 mmol/L 10/27/2023 10:57 AM ENGINEHOUSE BRAKEMAN CNFL Anion Gap, P 12 7 - 15 10/27/2023 10:57 AM ENGINEHOUSE BRAKEMAN CNFL BUN (Blood Urea Nitrogen), P 10 6 - 21 mg/dL 10/27/2023 10:57 AM ENGINEHOUSE BRAKEMAN CNFL Creatinine 0.47(L) 0.59 - 1.04 mg/dL 10/27/2023 10:57 AM ENGINEHOUSE BRAKEMAN CNFL Estimated GFR (eGFR) >90 >=60 mL/min/BSA 10/27/2023 10:57 AM ENGINEHOUSE BRAKEMAN CNFL Comment: Estimated GFR calculated using the 2020 CKD_EPI creatinine equation. Calcium, Total, P 8.4(L) 8.8 - 10.2 mg/dL 10/27/2023 10:57 AM ENGINEHOUSE BRAKEMAN CNFL Glucose, P 93 70 - 140 mg/dL 10/27/2023 10:57 AM ENGINEHOUSE BRAKEMAN CNFL Blood (Blood, Venous) 10/27/2023 10:33 AM ENGINEHOUSE BRAKEMAN 10/27/2023 10:36 AM ENGINEHOUSE BRAKEMAN Katja Aguilera M.D. LAB BLOOD ADD-ON Performing Organization Address City/State/[facility] Co de Phone Number [facility] [address] [place] [phone], [facility] CNFL [facility] in [address] [address] documented in this encounter Visit Diagnoses Diagnosis Alcoholic Cirrhosis Of Liver With Ascites (HCC)- Primary documented in this encounter Additional Health Concerns Assessment Noted Time PHQ-9 Depression Total Score: 3 10/20/19 24 7:30 AM ENGINEHOUSE BRAKEMAN documented as of this encounter
--- OUTSIDE RECORDS SUMMARY | 2024-01-27 07:02 | XMS_ITS | Encounter Summary ---
Author Name Unknown Organization [facility] Address [address] [place] [address] Care Team Providers Care Tree Doctor Name Role Phone Unavailable Primary Care Provider Unavailabl e Reason for Referral * Outpatient (Routine) - Closed Specialty Diagnoses / Procedures Referred By Contlulu t Referred To Contact Nicotine Dependence Sudha Bernstein M.A., DonnS.Dameon., C.T.T.S. [address] [place] [phone] [facility] Referral ID Status Reason Start Date Expiration Date Visits Re quested Visits Authorized [id number] Closed 10/28/2023 04/28/2025 1 1 Scheduling Instructions Please schedule this patient for a follow up phone visit. K MASON Encounter Details Date Type Department Care Team (Late st Contact Info) Description 10/28/2023 Orders Only Department of Nicotine Dependence, [facility] in [place], [place] [address] [place] [phone] Sudha Bernstein M.A., Edwin.S.W., C.T.T.S. [address] [place] [phone] Social History Tobacco Use Types Packs/Day Years [...] your living situation today? I have a [facility] place to live 10/15/2023 Sex and Gender Information Value Date Recorded Sex Assigned at Female 10/06/2023 10:50 AM BRICK MASON Gender Identity Female 10/06/2023 10:50 AM BRICK MASON Sexual Orientation Straight 10/06/2023 10 :50 AM BRICK MASON documented as of this encounter Plan of Treatment Upcoming Encounters Date Type Department Care Team (Late st Contact Info) Description 02/04/2024 2:15 PM CDT Appointment Division of Gastroenterology in [place], [place] [address] [place] [phone] Katja Umana M.D. [address] [place] [phone] Hayden Smith M.D. [address] [place] [phone] 03/21/2024 1:00 PM CDT Virtual Visit Department of Nicotine Dependence, [facility] in [place], [place] [address] [place] [phone] Scheduled Referrals Name Type Priority Associated Diagnoses Order Schedule Nicotine Dependence office visit (clinic) Outpatient Referral Routine Expected: 11/11/2023, Expires: 01/25/2025 documented as of this encounter Visit Diagnoses Not on filedocumented in this encounter Additional Health Concerns Assessment Noted Time PHQ-9 Depression Total Score: 3 10/20/19 24 7:30 AM BRICK MASON documented as of this encounter
--- OUTSIDE RECORDS SUMMARY | 2024-01-27 07:02 | XMS_ITS | Encounter Summary ---
Author Name Unknown Organization [facility] Address [address] [place] [address] Care Team Providers Care Broadcast Producer Name Role Phone Unavailable Primary Care Provider Unavailabl e Encounter Details Date Type Department Care Team (Latest Contact Info) Description 10/27/2023 10:26 AM TERMITE HELPER - 10/27/2023 11:59 PM TERMITE HELPER Hospital Encounter Department of Laboratory Medicine in [address] [phone] Katja Umana M.D. 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 I have a [facility] place to live 10/15/2023 Sex and Gender Information Value Date Recorded Sex Assigned at Female 10/06/2023 10:50 AM TERMITE HELPER Gender Identity Female 10/06/2023 10:50 AM TERMITE HELPER Sexual Orientation Straight 10/06/2023 10 :50 AM TERMITE HELPER documented as of this encounter Medications at [...] PM CDT Appointment Division of Gastroenterology in [place], [place] [address] [place] [phone] Katja Umana M.D. [address] [place] [phone] Hayden Smith M.D. [address] [place] [phone] 03/21/2024 1:00 PM CDT Virtual Visit Department of Nicotine Dependence, [facility] in [place], [place] [address] [place] [phone] documented as of this encounter Procedures Procedure Name Priority Date/Time Associated Diagnosis Comments PHOSPHATIDYLETHANOL CONFIRMATION, B Routine 10/27/2023 10:33 AM TERMITE HELPER Alcohol Moderate Or Severe Use Disorder (Dependence) Uncomplicated (HCC) BASIC METABOLIC PANEL, S/P Routine 10/27 10:33 AM TERMITE HELPER Alcoholic Cirrhosis Of Liver With Ascites (HCC) documented in this encounter Results * Phosphatidylethanol Confirmation (10/27/2023 10:33 AM TERMITE HELPER) PEth 16:0/18:1 (POPEth) by LC-MS/MS <20 Cutoff: 10 ng/mL 10/29/2023 8:22 PM TERMITE HELPER [facility] Comment: Testing performed at a x2 [...] <10 Cutoff: 10 ng/mL 10/29/2023 8:22 PM [facility] Comment: PEth 16:0/18:2 (PLPEth) Reference ranges are not well established PEth Interpretation Negative. 10/29 8:22 PM [facility] Comment: ----ADDITIONAL INFORMATION---- This report is intended for use in clinical monitoring and management of patients. ??It is not intended for use in employment-related testing. This test was developed and its performance characteristics determined by [facility] in a manner consistent with CLIA requirements. This test has not been cleared or approved by the U.S. Food and Drug Administration. Blood (Blood, Venous) 10/27/2023 10:33 AM TERMITE HELPER 10/27/2023 9:57 PM TERMITE HELPER Romana Diane M.D., Ph.D. LAB BLO OD ADD-ON [facility] [address] [place] [address] [facility] [address] [place] [address] [place] [address] * (ABNORMAL) Basic Metabolic Panel (10/27/2023 10:33 AM TERMITE HELPER) Potassium, P 3.6 3.6 - 5.2 mmol/L 10/27/2023 10:57 AM TERMITE HELPER CNFL Sodium, P 125(L) 135 - 145 mmol/L 10/27/2023 10:57 AM TERMITE HELPER CNFL Chloride, P 92(L) 98 - 107 mmol/L 10/27/2023 10:57 AM TERMITE HELPER CNFL Bicarbonate, P 21(L) 22 - 29 mmol/L 10/27/2023 10:57 AM TERMITE HELPER CNFL Anion Gap, P 12 7 - 15 10/27/2023 10:57 AM TERMITE HELPER CNFL BUN (Blood Urea Nitrogen), P 10 6 - 21 mg/dL 10/27/2023 10:57 AM TERMITE HELPER CNFL Creatinine 0.47(L) 0.59 - 1.04 mg/dL 10/27/2023 10:57 AM TERMITE HELPER CNFL Estimated GFR (eGFR) >90 >=60 mL/min/BSA 10/27/2023 10:57 AM TERMITE HELPER CNFL Comment: Estimated GFR calculated using the 2020 CKD_EPI creatinine equation. Calcium, Total, P 8.4(L) 8.8 - 10.2 mg/dL 10/27/2023 10:57 AM TERMITE HELPER CNFL Glucose, P 93 70 - 140 mg/dL 10/27/2023 10:57 AM TERMITE HELPER CNFL Blood (Blood, Venous) 10/27/2023 10:33 AM TERMITE HELPER 10/27/2023 10:36 AM TERMITE HELPER Katja Umana M.D. LAB BLOOD ADD-ON [facility] [address] [place] [address], [facility] CNFL [place] [address] documented in this encounter Visit Diagnoses Diagnosis Alcoholic Cirrhosis Of Liver With Ascites (HCC) Alcohol Moderate Or Severe Use Disorder (Dependence) Uncomplicated (HCC) documented in this encounter Additional Health Concerns Assessment Noted Time PHQ-9 Depression Total Score: 3 10/20/19 24 7:30 AM TERMITE HELPER documented as of this encounter
--- OUTSIDE RECORDS SUMMARY | 2024-01-27 07:02 | XMS_ITS | Encounter Summary ---
Author Name Unknown Organization [facility] Address [address] [place] [address] Care Team Providers Care Program Services Planner Name Role Phone Unavailable Primary Care Provider Unavailabl e Reason for Visit * Reason Onset Date Comments NDC Med Request 10/28/2023 Encounter Details Date Type Department Care Team (Latest Contact Info) Description 10/28/2023 Clinical Communication Department of Nicotine Dependence, [facility], in [place], [place] [address] [place] [phone] Sudha Bernstein M.A., L.I.C.S.W., C.T.T.S. 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 I have a [facility] place to live 10/15/2023 Sex and Gender Information Value Date Recorded Sex Assigned at Female 10/06/2023 10:50 AM BLUE LINE HANGER Gender Identity Female 10/06/2023 10:50 AM BLUE LINE HANGER Sexual Orientation Straight 10/06/2023 10 :50 AM BLUE LINE HANGER documented as of this encounter Miscellaneous Notes * Addendum Note - Raisa Hunt M.D. - 10/28/2023 5:01 PM CSTAddended by: RAISA HUNT on: 10/28/2023 05:01 PM Modules accepted: Orders LINE HANGER * Telephone Encounter - Sudha Bernstein M.A., L.I.C.S.W., M.S.W. - 10/28/2023 11:[address] Hunt, this patient is interested in having a prescription for Varenicline and nicotine lozenges sent to [facility] in [place], [place] for smoking cessation if appropriate based on your review of her medical record. Varenicline Starter Pack with refills 2 mg nicotine lozenges Thank you. LINE HANGER documented in this encounter Plan of Treatment Upcoming Encounters Date Type Department Care Team (Late st Contact Info) Description 02/04/2024 2:15 PM CDT Appointment Division of Gastroenterology in [place], [place] [address] [place] [phone] Katja Umana M.D. [address] [place] [phone] Hayden Smith M.D. [address] [place] [phone] 03/21/2024 1:00 PM CDT Virtual Visit Department of Nicotine Dependence, [facility], in [place], [place] [address] [place] [phone] documented as of this encounter Visit Diagnoses Diagnosis Nicotine Dependence Cigarettes- Primary documented in this encounter Additional Health Concerns Assessment Noted Time PHQ-9 Depression Total Score: 3 10/20/19 24 7:30 AM BLUE LINE HANGER documented as of this encounter
--- OUTSIDE RECORDS SUMMARY | 2024-01-27 07:02 | XMS_ITS | Encounter Summary ---
Author Name Unknown Organization [facility] Address [address] [place] [address] Care Team Providers Care Transmission Repairer Name Role Phone Unavailable Primary Care Provider Unavailabl e Encounter Details Date Type Department Care Team (Latest Contact Info) Description 10/20/2023 1:00 PM ASSESSMENT CLINICIAN - 10/20/2023 11:59 PM ASSESSMENT CLINICIAN Hospital Encounter Department of Laboratory Medicine in [address] [phone] Katja Umana M.D. [address] [place] [address] Ascites Discharge Disposition: Home or Self Care Social History Tobacco Use Types Packs/Day Years Used Date Smoking Tobacco: Every Day Cigarettes 0.5 40 Smokeless Tobacco: Never Alcohol Use Standard Drinks/Week Comments Not Currently 0 (1 standard drink = 0.6 oz pur e alcohol) [facility] Utilities Answer Date Recorded In the past 12 months has [employer], gas, oil, or water [employer] threatened to shut off services in your [...] Date Recorded Employment status Working with temporary [employer] 10/15/2023 Housing Stability Answer Date Recorded What is your living situation today? I have a [facility] place to live 10/15/2023 Sex and Gender Information Value Date Recorded Sex Assigned at Female 10/06/2023 10:50 AM ASSESSMENT CLINICIAN Gender Identity Female 10/06/2023 10:50 AM ASSESSMENT CLINICIAN Sexual Orientation Straight 10/06/2023 10 :50 AM ASSESSMENT CLINICIAN documented as of this encounter Medications at [...] PM CDT Appointment Division of Gastroenterology in [place], [place] [address] [place] [phone] Katja Umana M.D. [address] [place] [phone] Hayden Smith M.D. [address] [place] [phone] 03/21/2024 1:00 PM CDT Virtual Visit Department of Nicotine Dependence, [facility] in [place], [place] [address] [place] [address] documented as of this encounter Procedures Procedure Name Priority Date/Time Associated Diagnosis Comments BASIC METABOLIC PANEL, S/P Routine 10/20/2023 1:08 PM ASSESSMENT CLINICIAN Ascites documented in this encounter Results * (ABNORMAL) Basic Metabolic Panel (10/20/2023 1:08 PM ASSESSMENT CLINICIAN) Potassium, P 4.5 3.6 - 5.2 mmol/L 10/20/2023 1:30 PM ASSESSMENT CLINICIAN CNFL Sodium, P 126(L) 135 - 145 mmol/L 10/20/2023 1:30 PM ASSESSMENT CLINICIAN CNFL Chloride, P 97(L) 98 - 107 mmol/L 10/20/2023 1:30 PM ASSESSMENT CLINICIAN CNFL Bicarbonate, P 23 22 - 29 mmol/L 10/20/2023 1:30 PM ASSESSMENT CLINICIAN CNFL Anion Gap, P 6(L) 7 - 15 10/20/2023 1:30 PM ASSESSMENT CLINICIAN CNFL BUN (Blood Urea Nitrogen), P 7 6 - 21 mg/dL 10/20/2023 1:30 PM ASSESSMENT CLINICIAN CNFL Creatinine 0.37(L) 0.59 - 1.04 mg/dL 10/20/2023 1:30 PM ASSESSMENT CLINICIAN CNFL Estimated GFR (eGFR) >90 >=60 mL/min/BSA 10/20/2023 1:30 PM ASSESSMENT CLINICIAN CNFL Comment: Estimated GFR calculated using the 2020 CKD_EPI creatinine equation. Calcium, Total, P 8.2(L) 8.8 - 10.2 mg/dL 10/20/2023 1:30 PM ASSESSMENT CLINICIAN CNFL Glucose, P 112 70 - 140 mg/dL 10/20/2023 1:30 PM ASSESSMENT CLINICIAN CNFL Blood (Blood, Venous) 10/20/2023 1:08 PM ASSESSMENT CLINICIAN 10/20/2023 1:09 PM ASSESSMENT CLINICIAN Katja Umana M.D. LAB BLOOD ADD-ON [facility] [address] [place] [address], [facility] CNFL [facility] in [address] [address] documented in this encounter Visit Diagnoses Diagnosis Ascites documented in this encounter Additional Health Concerns Assessment Noted Time PHQ-9 Depression Total Score: 3 10/20/19 24 7:30 AM ASSESSMENT CLINICIAN documented as of this encounter
[2024-01-27 07:11] VITALS: BP 125/50; PULSE 88; RESP 16; O2SAT 100
--- NOTE | 2024-01-27 08:41 | P.PCN_ITS ---
Procedure Note Date Seen: 01/27/24 Date of procedure: 01/27/24 Will [facility] bill your pro fee for this procedure?: Yes Pre-op diagnosis: Cirrhosis of the liver Post-op diagnosis: same Procedure: Paracentesis Procedure Description: After discussion of the risks and benefits the patient was placed supine. Ultrasound guidance was used to identify the pocket of ascites with no evidence of underlying bowel and no abdominal varices. Once this was done the site was marked. The area was prepped and draped in the usual sterile fashion. Local anesthetic was used to anesthetize the skin and subcutaneous tissue down to the peritoneum. Once the peritoneum was encountered, the needle was advanced into the abdomen. This was confirmed by the aspiration of serous fluid. A skin feng was made with an 11 blade. The paracentesis catheter was advanced into the abdominal cavity while aspirating. Once the abdominal fluid was aspirated confirming entrance into the abdomen, the needle was removed and the sheath advanced. 7250 mL of fluid were then aspirated. She did receive 2 vials of 25% albumin during the procedure. Patient tolerated procedure well with no evidence of hypotension. The ultrasound was used to confirm successful aspiration with significantly reduced intra-abdominal fluid. The catheter was then removed, and Dermabond applied over the skin site. Patient tolerated the procedure well. Estimated blood loss 1 mL Anesthesia: local Estimated blood loss (mL): 0 Pathology: none sent Condition: stable Disposition: no change
== END 2024-01-27 08:49 | disposition home or self-care (01) ==
PROVIDERS: PCP Family Medicine; Visit Provider Surgery
DX: K74.60 Unspecified cirrhosis of liver (principal); R18.8 Other ascites
CPT/HCPCS: 49083; P9047

== ENCOUNTER 2024-01-30 14:34 | Emergency (ER) | payer BC, SELFPAY ==
[2024-01-30 14:47] VITALS: BP 89/49; PULSE 89; RESP 18; TEMP 36.1; O2SAT 100
--- NOTE | 2024-01-30 14:51 | ED.GENADULT ---
HPI - General Adult General Time Seen by Provider: 14:52 Date Seen: 01/30/24 Chief complaint: Unspecified Complaint, Adult Stated complaint: Leaking post paracentesis Time Seen by Provider: 01/30/24 14:51 Source: patient, family, RN notes reviewed and old records reviewed Mode of arrival: ambulatory Limitations: no limitations History of Present Illness HPI narrative: 63-year-old female with history of alcoholic cirrhosis and recurrent ascites, status post paracentesis January 26 who comes in with leaking from her paracentesis site. Related Data Home Medications Medication Instructions Recorded Confirmed furosemide 40 mg tablet 40 mg PO DAILY 11/16/23 12/24/23 rifaximin 550 mg tablet (Xifaxan) 550 mg PO BID 12/10/23 12/24/23 spironolactone 100 mg tablet 50 mg PO DAILY 12/10/23 12/24/23 lactulose 10 gram/15 mL oral 15 ml PO BID-TID 12/23/23 12/24/23 solution Previous Rx's Medication Instructions Recorded trazodone 50 mg tablet 50 - 100 mg (1 - 2 x 50 mg) PO QPM 12/23/23 #60 tabs pantoprazole 40 mg tablet,delayed 40 mg PO BID #60 tabs 01/17/24 release (Protonix) albumin, human 25 % 25 % 50 g IV ONCE 01/27/24 intravenous solution Allergies Allergy/AdvReac Type Severity Reaction Status Date / Time No Known Drug Allergies Allergy Verified 12/24/23 10:21 [facility], [facility] Medical History History of echocardiogram ?Z92.89 - Personal history of other medical treatment (ICD-10) Esophageal varices ?I85.00 - Esophageal varices without bleeding (ICD-10) Duodenal ulcer (12/03/23) ?K26.9 - Duodenal ulcer, unspecified as acute or chronic, without hemorrhage or perforation (ICD-10) Eustachian tube dysfunction ?H69.90 - Unspecified Eustachian tube disorder, unspecified ear (ICD-10) Hyponatremia ?E87.1 - Hypo-osmolality and hyponatremia (ICD-10) Anemia ?D64.9 - Anemia, unspecified (ICD-10) Ascites ?R18.8 - Other ascites (ICD-10) Perianal abscess ?K61.0 - Anal abscess (ICD-10) Liver lesion ?K76.9 - Liver disease, unspecified (ICD-10) Cirrhosis of liver ?K74.60 - Unspecified cirrhosis of liver (ICD-10) Tobacco abuse ?Z72.0 - Tobacco use (ICD-10) Elevated LFTs ?R79.89 - Other specified abnormal findings of blood chemistry (ICD-10) Primary hypertension ?I10 - Essential (primary) hypertension (ICD-10) Health care directive on file ?Z78.9 - Other specified health status (ICD-10) Alcohol abuse ?F10.10 - Alcohol abuse, uncomplicated (ICD-10) Depression ?F32.A - Depression, unspecified (ICD-10) Tubular adenoma of colon ?D12.6 - Benign neoplasm of colon, unspecified (ICD-10) Surgical History History of breast biopsy ?Z98.890 - Other specified postprocedural states (ICD-10) History of abdominal hysterectomy ?Z90.710 - Acquired absence of both cervix and uterus (ICD-10) Family History Father High blood pressure Lymphoma Mother High blood pressure Social History Narrative: patient admits to smoking and drinking alcohol. 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 Reviewed for scanning to medical record on 04/17/2020 What is your current living situation?: I presently have a place to live Problems where you live: no known problems In the past 12 months, utilities in danger of being shut off: no In past 12 months, lack of transportation kept you from medical appts, meetings, work, or getting things needed for daily living: no In the past 12 mos, have been you worried that your food would run out before you had money to buy more?: never true In the past 12 mos, the food you bought just didn't last and you didn't have money to buy more?: never true Smoking Status: Current every day smoker What tobacco products do you use: cigarettes Do you use any of these nicotine containing products: None Second hand tobacco smoke exposure: No How often do you have a drink containing alcohol: 4 or more times a week How many standard drinks containing alcohol do you have on a typical day: 1 or 2 How often do you have six or more drinks on one occasion: Never AUDIT-C Alcohol total score: 4 Non-prescribed substance use: marijuana (any form) How often does anyone, including family, friends and others, physically hurt you: never How often does anyone, including family, friends and others, insult or talk down to you: never How often does anyone, including family, friends and others, threaten you with harm: never How often does anyone, including family, friends and others, scream or curse at you: never Little interest or pleasure in doing things: several days Feeling down, depressed, or hopeless: several days service: No Exam Narrative: Exam Narrative: General: well nourished , NAD Head: Atraumatic and normocephalic ENT: External ears and external nose are normal Eyes: Conjunctiva clear, pupils are equal reactive, external ocular motions are intact Neck: Full spontaneous range of motion of the neck Lungs: No respiratory distress Abdomen: Mildly distended, no tenderness, puncture in the left lateral abdomen with clear yellow fluid draining continuously Musculoskeletal: No tenderness or deformity Neurologic: No gross focal neurologic deficits Skin: Diffuse bruising Psych: Mood and affect are appropriate Const: Vital Signs, click to edit/add: Vital Signs - 24 hr 01/30/24 14:47 Temperature 97.0 F L Pulse Rate [Right Pulse Oximeter] 89 Respiratory Rate 18 Blood Pressure [Ri ght Upper Arm] 89/49 L Pulse Oximetry 100 Oxygen Delivery Me thod Room Air Course Course ED Course: Patient seen examined, reviewed paracentesis note that shows patient had over 7 L fluid removed at that time, she did receive albumin, Dermabond was applied. Patient presents today with continues drainage from the site of her procedure. She denies fever chills, no abdominal pain. No tenderness on exam. No findings to suggest peritonitis. Care discussed with Dr. Pulliam recommends Dermabond and Steri-Strips over the area, this does not work, suture can be placed. Reevaluation(s) Time of Reevaluation #1: 15:40 Reevaluation #1: Puncture side of the left abdomen prepped with benign in wound cleanser. Wound edges pinched together and Dermabond applied. After Dermabond dried, Steri-Strips were applied. Patient tolerated this well and CP and was controlled. Will monitor patient in the emergency department to make sure that there is no further leakage and plan to discharge Time of Reevaluation #2: 16:03 Reevaluation #2: Procedure area remains dry, stable for discharge. Vital Signs Vital signs: Initial Vital Signs Temperature 97.0 F L 01/30/24 14:47 Temperature Source Temporal Artery Scan 01/30/24 14:47 Pulse Rate 89 01/30/24 14:47 Respiratory Rate 18 01/30/24 14:47 Blood Pressure 89/49 L 01/30/24 14:47 Blood Pressure Mean 62 L 01/30/24 14:47 Blood Pressure Position Sitting 01/30/24 14:47 Pulse Oximetry 100 01/30/24 14:47 Oxygen Delivery Method Room Air 01/30/24 14:47 Vital Signs Temperature 97.0 F L 01/30/24 14:47 Pulse Rate 89 01/30/24 14:47 Respiratory Rate 18 01/30/24 14:47 Blood Pressure 89/49 L 01/30/24 14:47 Pulse Oximetry 100 01/30/24 14:47 Oxygen Delivery Method Room Air 01/30/24 14:47 Temperature 97.0 F L 01/30/24 14:47 Pulse Rate 89 01/30/24 14:47 Respiratory Rate 18 01/30/24 14:47 Blood Pressure 89/49 L 01/30/24 14:47 Pulse Oximetry 100 01/30/24 14:47 Oxygen Delivery Method Room Air 01/30/24 14:47 Discharge Plan Discharge Prescriptions: No Action trazodone 50 mg tablet 50 - 100 mg PO QPM Qty: 60 5RF furosemide 40 mg tablet 40 mg PO DAILY spironolactone 100 mg tablet 50 mg PO DAILY Xifaxan 550 mg tablet 550 mg PO BID lactulose 10 gram/15 mL solution 15 ml PO BID-TID pantoprazole [Protonix] 40 mg tablet,delayed release (DR/EC) 40 mg PO BID Qty: 60 3RF albumin, human 25 % 25 % parenteral solution 50 g IV ONCE Rx Instructions: may repeat once in 20-30 minutes if not effective Follow Up/Referrals: Jared Delgado MD [Primary Care Provider] -
--- OUTSIDE RECORDS SUMMARY | 2024-01-30 15:34 | XMS_ITS | Clinical Summary ---
Author Name Unknown Organization [facility] Address [place], [place] [address] Care Team Providers Care Policyholder Information Clerk Name Role Phone Jared Delgado MD Primary Care Provider [phone] Allergies No known active allergies Medications Medication [...] Travel 4 1:10 PM CDT Anesthesia Event [facility] [address] [place] [address] Gabe Webber MD 4 12:12 PM CDT - 4 12:57 PM CDT Surgery [address] [address] Janet Torres MBBS ESOPHAGOGASTRODUODENOSCOPY 4 8:52 PM CDT - 4 5:25 PM CDT Hospital Encounter [address] [place] [address] s, U Hospitalist Ean Jett, MD Kim [...] - 145 mmol/L 12/06/2023 11:58 AM CDT [facility] Blood BLOOD SPECIMEN / Unknown Butterfly / Unknown 12/06/2023 11:25 AM CDT 12/06/2023 11:50 AM CDT Freddy Moctezuma MD CHEMISTRY Performing Organization Address City/[facility]/ZIP Co de Phone Number [facility] SENDOUT INTERNAL ZIP [phone] [place] [address] * (ABNORMAL) HEMOGLOBIN (12/06/2023 9:05 AM CDT) Only the most recent of6 resultswithin the time period is included. HEMOGLOBIN 7.6(L) 12.0 - 16.0 g/dL 12/06/2023 9:29 AM CDT [facility] MCV 94 80 - 100 fL 12/06/2023 9:29 AM CDT [facility] Blood BLOOD SPECIMEN / Unknown Venipuncture / Unknown 12/06/2023 9:05 AM CDT 12/06/2023 9:24 AM CDT Freddy Moctezuma MD HEMATOLOGY [facility] SENDOUT INTERNAL ZIP [phone] [place] [address] * (ABNORMAL) BASIC METABOLIC PANEL (12/05/2023 1:42 PM CDT) Only the most recent of3 resultswithin the time period is included. SODIUM 122(L) 136 - 145 mmol/L 12/05/2023 2:37 PM CDT [facility] POTASSIUM 4.6 3.5 - 5.1 mmol/L 12/05/2023 2:37 PM CDT [facility] CHLORIDE 92(L) 98 - 107 mmol/L 12/05/2023 2:37 PM CDT [facility] CO2,TOTAL 20(L) 22 - 29 mmol/L 12/05/2023 2:37 PM T [facility] ANION GAP 10 5 - 18 12/05/2023 2:37 PM T [facility] GLUCOSE 97 70 - 99 mg/dL 12/05/2023 2:37 PM T [facility] CALCIUM 7.8(L) 8.8 - 10.2 mg/dL 12/05/2023 2:37 PM T [facility] BUN 11 8 - 23 mg/dL 12/05/2023 2:37 PM T [facility] CREATININE 0.50 0.50 - 0.90 mg/dL 12/05/2023 2:37 PM T [facility] BUN/CREAT RATIO 22(H) 10 - 20 2:37 PM T [facility] eGFR >90 >90 mL/min/1.7 3m2 12/05/2023 2:37 PM T [facility] Comment:As of 2021, eG FR is calculated by the CKD-EPI creatinine equation without race adjustment. ??eGFR can be influenced by muscle mass, exercise, and diet. ??The reported eGFR is an estimation only and is only applicable if the renal function is stable. Blood BLOOD SPECIMEN / Unknown Butterfly / Unknown 12/05/2023 1:42 PM CDT 12/05/2023 2:10 PM CDT Freddy Moctezuma MD CHEMISTRY [facility] SENDOUT INTERNAL ZIP [address] [address] [place] [address] * LC HEP A AB, TOTAL (12/04/2023 9:21 AM CDT) Pathologist [facility] Hep A Ab Tot Negative Negative 12/08/2023 11:10 AM CDT [facility] ([facility]) Comment: Comment: The HAV total antibody assay detects both IgG and IgM but does not differentiate between them. A negative result suggests susceptibility to infection. A positive result could be due to vaccination, previously resolved infection or active infection. Testing for HAV IgM should be performed if active HAV infection is suspected. [facility] offers profiles that will automatically reflex positive HAV total antibody results to IgM (e.g., panel #[id number] HAV Antibody w/ Rfx). Blood BLOOD SPECIMEN / Unknown Venipuncture / Unknown 12/04/2023 9:21 AM CDT 12/04/2023 9:29 AM CDT Narrative [facility] ([facility]) - 12/08/2023 11:10 AM CDT Performed at: ??01 - [address] ??[id number] Weight Clerk: Carlos Piña MD, Phone: ??[phone] Janet DELGADO LABORATORY [facility] ([facility]) [address] [place] [address], * ANTI HBS QUANT AHS (12/04/2023 9:21 AM CDT) [facility] ANTI HBS QUANT <3.50 mIU/mL 12/04/2023 3:36 PM CDT [facility] Blood BLOOD SPECIMEN / Unknown Venipuncture / Unknown 12/04/2023 9:21 AM CDT 12/04/2023 9:29 AM CDT Narrative [facility] - 12/04/2023 3:36 PM CDT [...] prior to retesting. Janet JULIOBS SEND OUTS [facility] [address] [place] [address], * (ABNORMAL) PROTIME-INR (12/04/2023 9:21 AM CDT) INR 1.7(H) <1.3 12/04/2023 9:58 AM CDT [facility] PROTIME 18.5(H) 10.3 - 12.3 sec 12/04/2023 9:58 AM CDT [facility] Blood BLOOD SPECIMEN / Unknown Venipuncture / Unknown 12/04/2023 9:21 AM CDT 12/04/2023 9:30 AM CDT [facility] - 12/04/2023 9:58 AM CDT ?Therapeutic [...] is on UFH. Felipe Alvarez MD HEMATOLOGY [facility] SENDOUT INTERNAL ZIP [phone] [place] [address] * (ABNORMAL) AMMONIA (12/04/2023 9:21 AM CDT) AMMONIA 129(HH) 16 - 60 umol/L 12/04/2023 10:05 AM CDT [facility] Blood BLOOD SPECIMEN / Unknown Venipuncture / Unknown 12/04/2023 9:21 AM CDT 12/04/2023 9:28 AM CDT Narrative [facility] - 12/04/2023 10:05 AM CDT 1. ??Sulfasalazine and its metabolite Sulfapyridine at therapeutic concentrations may lead to falsely low results. 2. ??Temozolomide and its metabolite MTIC may lead to falsely elevated results, and its metabolite AIC may lead to falsely low results. Felipe Alvarez MD CHEMISTRY [facility] SENDOUT INTERNAL ZIP [phone] [place] [address] * US PARACENTESIS W IMAGING (12/03/2023 4:51 PM CDT) Anatomical Region Laterality Modality CHEST, Lung, THORAX Ultrasound 12/03/2023 4:51 PM CDT Impressions 12/03/2023 4:56 PM CDT 1. ??Status post ultrasound-guided paracentesis. Reference CPT Code: 56377 Narrative 12/03/2023 4:56 PM CDT For Patients: As a result of the Cures Act, medical imaging exams and procedure reports are released immediately into your electronic medical record. You may view this report before your referring provider. If you have questions, please contact your health care provider. EXAM: 1. PARACENTESIS 2. ULTRASOUND GUIDANCE LOCATION: [facility] [[email or web address]] MEDICAL IMAGING DATE: 12/03/2023 INDICATION: Ascites. PROCEDURE: Informed consent obtained. Time out performed. The abdomen was prepped and draped in a sterile fashion. 10 mL of 1% lidocaine was infused into local soft tissues. A 5 Azeri catheter system was introduced into the abdominal [...] EXAM: 1. PARACENTESIS 2. ULTRASOUND GUIDANCE LOCATION: [facility] [[email or web address]] MEDICAL IMAGING DATE: 12/03/2023 INDICATION: Ascites. PROCEDURE: Informed consent obtained. Time out performed. The abdomen wasprepped and draped in a sterile fashion. 10 mL of 1% lidocaine was infusedinto local soft tissues. A 5 Azeri catheter system was introduced intothe abdominal ascites under ultrasound guidance. 7.1 liters of clear fluid were removed and sent to lab if requested. Patient tolerated procedure well. Ultrasound imaging was obtained and placed in the patient's permanentmedical record. IMPRESSION: 1. Status post ultrasound-guided paracentesis. Reference CPT Code: 58874 Janet DELGADO * Body Fluid Culture and Stain (12/03/2023 4:20 PM CDT) CULTURE No Growth. 12/08/2023 7:52 AM CDT [facility] GRAM STAIN 2+ PMNs 12/08/2023 7:52 AM CDT [facility] GRAM STAIN No organisms seen 12/08/2023 7:52 AM CDT [facility] GRAM STAIN No Epithelial cells 12/08/2023 7:52 AM CDT [facility] GRAM STAIN No RBCs 12/08/2023 7:52 AM CDT [facility] GRAM STAIN Gram stain performed by [place], [place] 12/08/2023 7:52 AM CDT [facility] Body Fluid PERITONEAL FLUID SPECIMEN / Unknown Non-Blood / Unknown 12/03/2023 4:20 PM CDT 12/03/2023 4:40 PM CDT Janet DELGADO MICROBIOLOGY [facility] [address] [place] [address], [facility] SENDOUT INTERNAL ZIP [phone] [place] [address] * Body Fluid Cell Count and Differential (12/03/2023 4:20 PM CDT) BODY FLUID SOURCE Ascitic Fluid 12/03/2023 7:27 PM CDT [facility] BODY FLUID COLOR Yellow 12/03/2023 7:27 PM CDT [facility] BODY FLUID CLARITY Clear 12/03/2023 7:27 PM CDT [facility] TOTAL NUCLEATED CELLS, BF 85 /cu mm 12/03/2023 7:27 PM CDT [facility] RED BLOOD COUNT, BODY FLUID <2,000 /cu mm 12/03/2023 7:27 PM CDT [facility] % NEUTROPHILS, BODY FLUID 17 % 12/03/2023 7:27 PM CDT [facility] % LYMPHOCYTES, BODY FLUID 25 % 12/03/2023 7:27 PM CDT [facility] % MONO/MACRO, BODY FLUID 58 % 12/03/2023 7:27 PM CDT [facility] Body Fluid PERITONEAL FLUID SPECIMEN / Unknown Non-Blood / Unknown 12/03/2023 4:20 PM CDT 12/03/2023 4:40 PM CDT [facility] - 12/03/2023 7:27 PM CDT TO ORDER BODY FLUID CULTURES, USE; [id number] BODY FLUID CULTURE, STAIN Janet JULIO BODY FLUID [facility] SENDOUT INTERNAL ZIP [phone] [place] [address] * Protein, Body Fluid (12/03/2023 4:20 PM CDT) SPECIMEN SOURCE Peritoneal fluid 12/03/2023 5:26 PM CDT [facility] PROTEIN,BODY FLUID 0.6 g/dL 12/03/2023 5:26 PM CDT [facility] Comment:No Reference Range D efined. Body Fluid PERITONEAL FLUID SPECIMEN / Unknown Non-Blood / Unknown 12/03/2023 4:20 PM CDT 12/03/2023 4:40 PM CDT [facility] - 12/03/2023 5:26 PM CDT Pleural: [...] Test developed & performance characteristics [facility], [place], [place] consistent with CLIA requirements. Not cleared or approved by [place] FDA. Janet Torres NORI BODY FLUID [facility] SENDOUT INTERNAL ZIP [phone] [place] [address] * Albumin, Body Fluid (12/03/2023 4:20 PM CDT) SPECIMEN SOURCE Peritoneal fluid 12/03/2023 5:26 PM CDT [facility] ALBUMIN,BODY FLUID 0.3 g/dL 12/03/2023 5:26 PM CDT [facility] Comment:No Reference Range D efined. Body Fluid PERITONEAL FLUID SPECIMEN / Unknown Non-Blood / Unknown 12/03/2023 4:20 PM CDT 12/03/2023 4:40 PM CDT Narrative [facility] - 12/03/2023 5:26 PM CDT Peritoneal: ??SAAG >/= 1.1 g/dL indicates portal Hypertension. Pleural: ? SEAG > 1.2 g/dL is consistent with a transudative process and may ?be more accurate in patients receiving diuretic therapy. Test developed & performance characteristics determined by [facility], [place], [place] consistent with CLIA requirements. Not cleared or approved by [place] FDA. Janet JULIO BODY FLUID [facility] SENDOUT INTERNAL ZIP [phone] [place] [address] * FERRITIN (12/03/2023 2:47 PM CDT) FERRITIN 131.0 15.0 - 150.0 ng/mL 12/03/2023 9:31 PM CDT [facility] Blood BLOOD SPECIMEN / Unknown Venipuncture / Unknown 12/03/2023 2:47 PM CDT 12/03/2023 2:51 PM CDT Janet DELGADO CHEMISTRY [facility] [address] [place] [address], * PATH TISSUE EXAM (12/03/2023 1:23 PM CDT) Case Report Pathology Report ?Case: [id number] ? Authorizing Provider: ??Janet Torres MBBS ?Collected: ? 12/03/2023 1323 ? Ordering Location: ? [facility] ?Received: ?12/03/2023 1527 ? Pathologist: ? Marco Tijerina MD ? Specimens: ?? A) - Duodenal Ulcer ? B) - Gastric Biopsy, random gastric ? 4 1:56 PM CDT [facility] Final Diagnosis A) DUODENUM, ULCER, [...] (Helicobacter immunohistochemistry negative) 4 1:56 PM CDT [facility] Comment B. Mild chronic inflammation in the stomach in the absence of Helicobacter often remains unexplained, but it could reflect prior or treated Helicobacter infection. The likelihood of histologically undetected Helicobacter is quite low in our opinion. 4 1:56 PM T [facility] Clinical Information Ms. Redmond is a 63 y.o. with hematemesis and iron deficiency anemia secondary to chronic blood loss. Upper GI endoscopy shows grade 1 esophageal varices, diffuse mild erythema throughout the stomach, and a superficial duodenal ulcer. 4 1:56 PM T [facility] Gross Description A) Received in [...] 12/03/2023 4:32 PM 4 1:56 PM CDT [facility] Microscopic Description The final diagnosis is based on microscopic examination of appropriate sections of all specimens. 4 1:56 PM T [facility] Additional Information Interpreted at [facility], Central Laboratory - [address], [place] [address] 1:56 PM CDT [facility] Biopsy (Duodenal Ulcer) 12/03/2023 1:23 PM CDT 12/03/2023 3:27 PM CDT Biopsy specimen (specimen) GASTRIC BIOPSY SPECIMEN / Unknown 12/03/2023 1:29 PM CDT 12/03/2023 3:27 PM CDT Janet DELGADO PATHOLOGY/CYTOLOGY [facility] [address] [place] [address], * ENDOSCOPY (12/03/2023 12:57 PM CDT) 12/03/2023 [...] candidate for conscious sedation. The endoscope [id number] was introduced through the mouth, and advanced [...] - 11.0 thou/cu mm 12/03/2023 5:12 AM [facility] RED BLOOD COUNT 2.21(L) 4.00 - 5.20 mil/cu mm 12/03/2023 5:12 AM T [facility] HEMOGLOBIN 7.3(L) 12.0 - 16.0 g/dL 12/03/2023 5:12 AM T [facility] HEMATOCRIT 21.5(L) 33.0 - 51.0 % 12/03/2023 5:12 AM [facility] MCV 97 80 - 100 fL 12/03/2023 5:12 AM [facility] MCH 33.0 26.0 - 34.0 pg 12/03/2023 5:12 AM [facility] MCHC 34.0 32.0 - 36.0 g/dL 12/03/2023 5:12 AM [facility] RDW 17.2(H) 11.5 - 15.5 % 12/03/2023 5:12 AM [facility] PLATELET COUNT 167 140 - 440 thou/cu mm 12/03/2023 5:12 AM [facility] MPV 8.9 6.5 - 11.0 fL 12/03/2023 5:12 AM T [facility] NRBC 0.0 % 12/03/2023 5:12 AM [facility] ABS NRBC 0.0 thou /cu mm 12/03/2023 5:12 AM T [facility] % NEUT 65.0 % 12/03/2023 5:12 AM CDT [facility] % LYMPH 25.6 % 12/03/2023 5:12 AM T [facility] % MONO 7.5 % 12/03/2023 5:12 AM CDT [facility] % EOS 1.0 % 12/03/2023 5:12 AM T [facility] % BASO 0.3 % 12/03/2023 5:12 AM CDT [facility] % IMMATURE GRAN (METAS,MYELOS,ND OS) 0.6 % 12/03/2023 5:12 AM CDT [facility] ABSOLUTE NEUTROPHILS 5.7 1.7 - 7.0 thou/cu mm 12/03/2023 5:12 AM CDT [facility] ABSOLUTE LYMPHOCYTES 2.2 0.9 - 2.9 thou/cu mm 12/03/2023 5:12 AM CDT [facility] ABSOLUTE MONOCYTES 0.7 <0.9 thou/cu mm 12/03/2023 5:12 AM CDT [facility] ABSOLUTE EOSINOPHILS 0.1 <0.5 thou/cu mm 12/03/2023 5:12 AM CDT [facility] ABSOLUTE BASOPHILS 0.0 <0.3 thou/cu mm 12/03/2023 5:12 AM CDT [facility] ABSOLUTE IMMATURE GRANULOCYTES(MET ,MYELOS,PROS) 0.1 <0.3 thou/cu mm 12/03/2023 5:12 AM CDT [facility] Blood BLOOD SPECIMEN / Unknown Butterfly / Unknown 12/03/2023 3:34 AM CDT 12/03/2023 3:37 AM CDT Adama Jett MD HEMATOLOGY [facility] SENDOUT INTERNAL ZIP [phone] [place] [address] * (ABNORMAL) RED CELL MORPHOLOGY (12/03/2023 3:34 AM CDT) POLYCHROMASIA Slight 12/03/2023 5:12 AM CDT [facility] SCHISTOCYTES Few 12/03/2023 5:12 AM CDT [facility] RBC COMMENT Present(A) RBC morphology appears normal, RBC morphology within normal limits for newborns. 12/03/2023 5:12 AM CDT [facility] Blood BLOOD SPECIMEN / Unknown Butterfly / Unknown 12/03/2023 3:34 AM CDT 12/03/2023 3:37 AM CDT Adama Jett MD HEMATOLOGY [facility] SENDOUT INTERNAL ZIP [phone] [place] [address] * PLATELET ESTIMATE (12/03/2023 3:34 AM CDT) PLATELET ESTIMATE Adequate Adequate, No estimate 12/03/2023 5:12 AM CDT [facility] Blood BLOOD SPECIMEN / Unknown Butterfly / Unknown 12/03/2023 3:34 AM CDT 12/03/2023 3:37 AM CDT Adama Jett MD HEMATOLOGY Performing Organization Address City/[facility]/ZIP Co de Phone Number [facility] SENDOUT INTERNAL ZIP [address] [address] [place] [address] * (ABNORMAL) IRON PLUS IRON BINDING CAP (12/03/2023 3:34 AM CDT) IRON 49 37 - 145 ug/dL 12/03/2023 3:46 PM CDT [facility] UIBC (UNSATURATED) 67(L) 112 - 347 ug/dL 12/03/2023 3:46 PM CDT [facility] IRON BINDING CAPACITY 116(L) 250 - 400 ug/dL 12/03/2023 3:46 PM CDT [facility] IRON,% SATURATION 42 14 - 50 % 12/03/2023 3:46 PM CDT [facility] Blood BLOOD SPECIMEN / Unknown Butterfly / Unknown 12/03/2023 3:34 AM CDT 12/03/2023 3:37 AM CDT Janet DELGADO CHEMISTRY [facility] SENDOUT INTERNAL ZIP [phone] [place] [address] * (ABNORMAL) MAGNESIUM (12/03/2023 3:34 AM CDT) MAGNESIUM 2.5(H) 1.6 - 2.4 mg/dL 12/03/2023 3:57 AM CDT [facility] Blood BLOOD SPECIMEN / Unknown Butterfly / Unknown 12/03/2023 3:34 AM CDT 12/03/2023 3:37 AM CDT Adama Jett MD CHEMISTRY [facility] SENDOUT INTERNAL ZIP [address] [address] [place] [address] * SCAN-CARDIAC STRIP (12/02/2023 11:58 PM CDT) Scanner OTHER * (ABNORMAL) HEPATIC FUNCTION PANEL (12/02/2023 10:56 PM CDT) ALBUMIN 2.8(L) 4.0 - 4.9 g/dL 12/02/2023 11:22 PM CDT [facility] PROTEIN,TOTAL 6.5 6.0 - 8.0 g/dL 12/02/2023 11:22 PM CDT [facility] BILIRUBIN,TOTAL 3.0(H) 0.0 - 1.2 mg/dL 12/02/2023 11:22 PM CDT [facility] BILIRUBIN,DIRECT 1.3(H) 0.0 - 0.3 mg/dL 12/02/2023 11:22 PM CDT [facility] BILIRUBIN,INDIRE CT 1.7(H) 0.2 - 0.8 mg/dL 12/02/2023 11:22 PM CDT [facility] ALK PHOSPHATASE 114(H) 35 - 104 IU/L 12/02/2023 11:22 PM CDT [facility] ALT (SGPT) 31 10 - 35 IU/L 12/02/2023 11:22 PM CDT [facility] AST (SGOT) 87(H) 10 - 35 IU/L 12/02/2023 11:22 PM CDT [facility] Blood BLOOD SPECIMEN / Unknown Venipuncture / Unknown 12/02/2023 10:56 PM CDT 12/02/2023 11:01 PM CDT Adama Jett MD CHEMISTRY [facility] SENDOUT INTERNAL ZIP [phone] [place] [address] from Last 3 Months Advance Directives * Full Code (Latest Code Status on File) Date Activated Date Inactivated Comments 12/02/2023 9:46 PM 12/06/2023 7:35 PM Question Answer Comments Code Status Discussion: Reviewed Preferences Care Teams Policyholder Information Clerk Relationship Specialty Start Date End Date Jared Delgado MD [address] [place] [address] PCP - General Family Practice 12/04/23
--- OUTSIDE RECORDS SUMMARY | 2024-01-30 15:34 | XMS_ITS ---
Author Name Unknown Organization [facility] Address [address] [place] [address] Care Team Providers Care Slime Plant Operator Name Role Phone Unavailable Unavailable Unavailable Surgery Details Not on file Complications Check Surgery Details section. Procedure Estimated Blood Loss Check Surgery Details section. Procedure Findings Check Surgery Details section. Procedure Specimens Taken Check Surgery Details section.
--- OUTSIDE RECORDS SUMMARY | 2024-01-30 15:34 | XMS_ITS | Continuity of Care Document ---
Author Name Unknown Organization [facility] Address [address] [address] [place] [address] Phone Care Team Providers Care Assistant Director Of Plant Operations Name Role Phone No Information Unavailable Unavailable [...] Diagnoses Date Provider Providers Copied on Encounter [facility] [place] [address] [address], [place], [place], [id number], [place] tel:[phone] No Information Dec-0 4 No Information Subsqt Hosp-da E&m Minr Compl [facility] [place] [address] [address], [place], [place], [id number], [place] tel:[phone] [facility] No Information 4 Dino Guzman. [address] [place] [address], [id number], [place]. tel:[phone] Referring Provider: Thomas Sun MD, [address] [place] [address], [id number]. tel:[phone] Subsqt Hosp-da E&m Minr Compl [facility] [place] [address] [address], [place], [id number], tel:[phone] [facility] No Information 4 Kirsty Minor. [address] [place] [address], [address], [id number], . tel:[phone] Referring Provider: Iván Strauss, [address] [place] [address], [id number]. tel:[phone] Init Inpt Cons New/est [facility], [address] [address], [place], [place], [id number], tel:[phone] [facility] Esophageal varices determined by endoscopy 4 Brian Gonzales. [address] [place] [address], [address], [id number], . tel:[phone] Referring Provider: Janet Torres MD, [address] [place] [address], [id number]. tel:[phone] Family History Family Member Type Diagnosis Age At Onset No Information Payers Payer name Insurance type Covered alliance party ID Authoriza tion(s) No Information Social [...]
--- OUTSIDE RECORDS SUMMARY | 2024-01-30 15:34 | XMS_ITS | Referral Summary ---
Author Name Unknown Organization [facility] Address [address] [place] [id number] Care Team Providers Care Dispatcher Service Chief Name Role Phone Elsewhere, Pcp Primary Care Provider Unavailabl e Source Comments Patient records contain information from all sites at [facility]. For routine questions regarding patient records, call [phone] during business hours, M-F 8:00 AM - 5:00 PM Central Time. Record requests for emergency care only can be directed to [phone] at any time.[facility] Encounters Date Type Department Care Team Description 01/25/2024 Clinical Communication Division of Gastroenterology in [place], [place] [address] [place] [address] Katja Umana M.D. 01/14/2024 Clinical Communication Division of Gastroenterology in [place], [place] [address] [place] [address] Katja Umana M.D. 12/29/2023 Clinical Communication [facility] [place], [place] [address] [place] [address] Katja Umana M.D. Phone Contact (Friends and family authorization ) 12/28/2023 Clinical Communication Division of Gastroenterology in [place], [place] [address] [place] [address] Katja Umana M.D. 12/21/2023 Clinical Communication [facility] in [place], [place] [address] [place] [address] Katja Umana M.D. 12/20/2023 Orders Only Department of Nicotine Dependence, [facility], in [place], [place] [address] [place] [phone] Sudha Bernstein M.A., Jerome., C.T.T.S. 12/20/2023 Clinical Communication Division of Gastroenterology in [address] [address] Katja Umana M.D. Scheduling 12/20/2023 2:00 PM CDT Virtual Visit Department of Nicotine Dependence, [facility] in [place], [place] [address] [place] [phone] Sudha Bernstein M.A., Jerome., C.T.T.S. Nicotine Dependence Cigarettes With Withdrawal (Primary Dx) 12/16/2023 9:34 AM CDT - 12/16/2023 11:22 AM CDT Hospital Encounter Department of Radiology, [facility] in [address] [address] Katja Umana M.D. Alcoholic Cirrhosis Of Liver With Ascites (HCC); Ascites Discharge Disposition: Home or Self Care 12/09/2023 4:30 PM CDT Office [facility] [address] [address] Katja Umana M.D. Olson, Jody C, M.D. Alcoholic Cirrhosis Of Liver With Ascites (HCC) (Primary Dx); Ascites; Sarcopenia 12/08/2023 10:30 AM CDT Comprehensive Visit Section of Infectious Diseases in [address] [address] Katja Umana M.D. Brianna Anglin APRN, C.N.P., D.N.P. 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 Order Request 11/19/2023 10:08 AM AMMONIA PRINT OPERATOR - 11/19/2023 12:51 PM AMMONIA PRINT OPERATOR Hospital Encounter Department of Radiology, [facility] in [address] [address] Felipe Morales M.D. Ascites Discharge Disposition: Home or Self Care 11/18/2023 Orders Only Department of Nicotine Dependence, [address] [address] Sudha Bernstein M.A., Yesy.I.C.S.W., C.T.T.S. 11/18/2023 11:00 AM AMMONIA PRINT OPERATOR Virtual Visit Department of Nicotine Dependence, [place], [place] [address] [place] [phone] Sudha Bernstein M.A., L.I.C.S.W., C.T.T.S. Nicotine Dependence Cigarettes With Withdrawal (Primary Dx) 11/11/2023 Orders Only Department of Nicotine Dependence, [address] [address] Sudha Bernstein M.A., L.I.C.S.W., C.T.T.S. 11/11/2023 Clinical Communication Department of Nicotine Dependence, [place], [place] [address] [place] [phone] Sudha Bernstein M.A., L.I.C.S.W., C.T.T.S. [facility] Med Request 11/11/2023 11:00 AM AMMONIA PRINT OPERATOR Virtual Visit Department of Nicotine Dependence, [place], [place] [address] [place] [phone] Sudha Bernstein M.A., L.I.C.S.W., C.T.T.S. Nicotine Dependence Cigarettes With Withdrawal (Primary Dx) 11/05/2023 9:29 AM AMMONIA PRINT OPERATOR - 11/05/2023 12:20 PM [facility] Hospital Encounter Department of Radiology, [facility], in [place], [place] [address] [place] [address] Felipe Morales M.D. Ascites Discharge Disposition: Home or Self Care 11/01/2023 12:28 PM AMMONIA PRINT OPERATOR - 11/01/2023 11:59 PM [facility] Hospital Encounter Department of Laboratory Medicine in [address] [address] Katja Umana M.D. Alcoholic Cirrhosis Of Liver [...] = 0.6 oz pur e alcohol) [facility] Utilities Answer Date Recorded In the past 12 months has e [employer], gas, oil, or water [employer] threatened to shut off services in your [...] Date Recorded Employment status Working with temporary [employer] 10/15/2023 Housing Stability Answer Date Recorded What is your living situation today? I have a [facility] place to live 10/15/2023 Sex and Gender Information Value Date Recorded Sex Assigned at Female 10/06/2023 10:50 AM AMMONIA PRINT OPERATOR Gender Identity Female 10/06/2023 10:50 AM AMMONIA PRINT OPERATOR Sexual Orientation Straight 10/06/2023 10 :50 AM AMMONIA PRINT OPERATOR Last Filed Vital Signs Vital Sign Reading Time Taken Comments Blood Pressure 101/47 12/16/2023 10:52 AM CDT Pulse 77 12/16/2023 10:30 AM CDT Temperature 34.7 ??C (94.5 ??F) 12/09/2023 4:21 PM CD T Respiratory Rate 24 10/08/2023 4:16 PM AMMONIA PRINT OPERATOR Oxygen Saturation 100% 12/16/2023 10:30 AM [...] PM CDT Appointment Division of Gastroenterology in [place], [place] [address] [place] [address] Katja Umana M.D. [address] [place] [phone] Hayden Smith M.D. [address] [place] [address] 03/21/2024 1:00 PM CDT Virtual Visit Department of Nicotine Dependence, [facility] in [place], [place] [address] [place] [address] Procedures Procedure Name Priority Date/Time Associated Diagnosis [...] inpatients and all outpatients) 11/19/2023 11:55 AM AMMONIA PRINT OPERATOR Ascites CELL COUNT AND DIFFERENTIAL, BF Timed 11/19/2023 10:50 AM AMMONIA PRINT OPERATOR Ascites BACTERIAL CULTURE, AEROBIC + SUSC Timed 11/19/2023 10:50 AM AMMONIA PRINT OPERATOR Ascites US PARACENTESIS WITH IMAGING GUIDANCE RAD - Routine (most inpatients and all outpatients) 11/05/2023 11:25 AM AMMONIA PRINT OPERATOR Ascites CELL COUNT AND DIFFERENTIAL, BF Timed 11/05/2023 10:07 AM AMMONIA PRINT OPERATOR Ascites BACTERIAL CULTURE, AEROBIC + SUSC Timed 11/05/2023 10:07 AM AMMONIA PRINT OPERATOR Ascites BASIC METABOLIC PANEL, S/P Routine 11/01/2023 12:49 PM AMMONIA PRINT OPERATOR Alcoholic Cirrhosis Of Liver With Ascites (HCC) HCV AB SCRN W/REFLEX TO HCV PCR, S Routine 10/06/2023 12:17 PM AMMONIA PRINT OPERATOR Alcoholic Cirrhosis Of Liver With Ascites (HCC) COLONOSCOPY Routine 10/10/2015 2:45 PM AMMONIA PRINT OPERATOR from Last 3 Months or Most [...] CDT Katja Umana M.D. LAB BLOOD ADD-ON [address] [address] DTL [facility] [address] [place] [address] * (ABNORMAL) CBC with Differential, Blood (12/09/2023 5:16 PM CDT) [facility] Hemoglobin 8.3(L) 11.6 - 15.0 g/dL [...] Umana M.D. LAB BLOOD ADD-ON [facility] [address] [place] [address], [place] DTL [facility] [address] [place] [address] [facility] [address] [place] [address] * (ABNORMAL) Comprehensive Metabolic Panel (12/09/2023 5:16 PM CDT) [facility] Potassium, S 5.0 3.6 - 5.2 [...] M.D. LAB BLOOD ADD-ON Performing Organization Address City/[facility]/ZIP Co de Phone Number [facility] [address] [place] [address], [facility] [address] [place] [address] * Bacterial Culture, Aerobic + Susceptibility (11/19/2023 10:50 AM AMMONIA PRINT OPERATOR) Only the most recent of2 resultswithin the time period is included. Bacterial Culture, Aerobic + Susc No growth after 5 days of incubation. 11/24/2023 8:27 AM CDT DTL Fluid (Peritoneal Fluid) 11/19/2023 10:50 AM AMMONIA PRINT OPERATOR Narrative [facility] 11/24/2023 8:27 AM CDT Bacterial Culture: Received Bactec aerobic and Bactec anaerobic bottles Felipe Morales M.D. LAB MICROBIOLOGY - GENERAL ORDERABLES Performing Organization Address City/[facility]/ZIP Co de Phone Number [facility] [address] [place] [address], [facility] [address] [place] [address] * Cell Count and Differential, Body Fluid (11/19/2023 10:50 AM AMMONIA PRINT OPERATOR) Only the most recent of2 resultswithin the time period is included. Fluid Type Peritoneal /Paracente sis 11/19/2023 12:39 PM AMMONIA PRINT OPERATOR DHPM Gross Appearance Serous 11/19/19 24 12:39 PM AMMONIA PRINT OPERATOR [facility] Total Nucleated Cells 201 /mcL 11/19/2023 12:39 PM AMMONIA PRINT OPERATOR [facility] Comment: ----REFERENCE VALUE---- Synovial: <150 /mcL Peritoneal: <500 /mcL Pleural: <500 /mcL Pericardial: <500 /mcL ----ADDITIONAL INFORMATION---- This test has been modified from the [facility] attendant's instructions. Its performance characteristics were determined by [facility] in a manner consistent with CLIA requirements. This test has not been cleared or approved by the U.S. Food and Drug Administration. Neutrophils 20 % 11/19/2023 1:42 PM AMMONIA PRINT OPERATOR DHPM Comment: ----REFERENCE VALUE---- Synovial: <25% Peritoneal: <25% Pleural: <25% Pericardial: <25% Lymphocytes 16 Synovial <75% % 11/19/2023 1:42 PM AMMONIA PRINT OPERATOR DHPM Monocytes/Macropha ges 60 Synovial <70% % 11/19/2023 1:42 PM AMMONIA PRINT OPERATOR DHPM Other Cells 4 % 11/19/2023 1:42 PM AMMONIA PRINT OPERATOR DHPM Comment: ----REFERENCE VALUE---- The reference range and other method performance specifications have not been established for this bodyfluid. The test result must be integrated into the clinical context for interpretation. Other Cells Are: See Comment 11/19/2023 1:42 PM AMMONIA PRINT OPERATOR [facility]PM Comment:Mesothelial cells Comment See Comment 11/19/2023 1:42 PM AMMONIA PRINT OPERATOR [facility]PM Comment:No blasts or maligna nt cells seen. Reviewed by: Jose 11/19/2023 1:42 PM AMMONIA PRINT OPERATOR [facility] Fluid (Peritoneal Fluid) 11/19/2023 10:50 AM AMMONIA PRINT OPERATOR Felipe Morales M.D. LAB BODY FLUIDS AND STOOLS ORDERABLES [facility] [address] [place] [address], [facility] [address] [place] [address] * (ABNORMAL) Basic Metabolic Panel (11/01/2023 12:49 PM AMMONIA PRINT OPERATOR) Potassium, P 4.1 3.6 - 5.2 mmol/L 11/01/2023 1:13 PM AMMONIA PRINT OPERATOR CNFL Sodium, P 128(L) 135 - 145 mmol/L 11/01/2023 1:13 PM AMMONIA PRINT OPERATOR CNFL Chloride, P 95(L) 98 - 107 mmol/L 11/01/2023 1:13 PM AMMONIA PRINT OPERATOR CNFL Bicarbonate, P 26 22 - 29 mmol/L 11/01/2023 1:13 PM AMMONIA PRINT OPERATOR CNFL Anion Gap, P 7 7 - 15 11/01/2023 1:13 PM AMMONIA PRINT OPERATOR CNFL BUN (Blood Urea Nitrogen), P 10 6 - 21 mg/dL 11/01/2023 1:13 PM AMMONIA PRINT OPERATOR CNFL Creatinine 0.42(L) 0.59 - 1.04 mg/dL 11/01/2023 1:13 PM AMMONIA PRINT OPERATOR CNFL Estimated GFR (eGFR) >90 >=60 mL/min/BSA 11/01/2023 1:13 PM AMMONIA PRINT OPERATOR CNFL Comment: Estimated GFR calculated using the 2020 CKD_EPI creatinine equation. Calcium, Total, P 8.3(L) 8.8 - 10.2 mg/dL 11/01/2023 1:13 PM AMMONIA PRINT OPERATOR CNFL Glucose, P 105 70 - 140 mg/dL 11/01/2023 1:13 PM AMMONIA PRINT OPERATOR CNFL Blood (Blood, Venous) 11/01/2023 12:49 PM AMMONIA PRINT OPERATOR 11/01/2023 12:54 PM AMMONIA PRINT OPERATOR Katja Umana M.D. LAB BLOOD ADD-ON Performing Organization Address [facility]/State/ZIP Co de Phone Number [facility] [address] [place] [address], [facility] in [address] [address] * HCV Ab Scrn w/Reflex to HCV PCR, Serum (10/06/2023 12:17 PM AMMONIA PRINT OPERATOR) HCV Ab Screen, S Negative Negative 10/06/2023 9:12 PM AMMONIA PRINT OPERATOR [facility] Comment:[id number] rat io is <1.00. Blood (Blood, Venous) 10/06/2023 12:17 PM AMMONIA PRINT OPERATOR 10/06/2023 3:57 PM AMMONIA PRINT OPERATOR Katja Umana M.D. LAB MICROBIOLOGY - B LOOD ORDERABLES [facility] [address] [place] [address] [facility] [address] [place] [address] * Colonoscopy (10/10/2015 2:45 PM AMMONIA PRINT OPERATOR) 10/10/2015 2:45 PM AMMONIA PRINT OPERATOR Tanner Calderón GI PROCEDURE ORDE АНДРЕЙ [facility] [address] [place] [address], [facility] from Last 3 Months or Most Recently Relevant to Health Maintenance Care Teams Dispatcher Service Chief Relationship Specialty Start Date End Date Elsewhere, Pcp PCP - General Family Medicine 12/07/23
--- OUTSIDE RECORDS SUMMARY | 2024-01-30 15:34 | XMS_ITS | Clinical Summary ---
Author Name Unknown Organization [facility] Address [address] [place] [address] Care Team Providers Care Bean Picker Machine Operator Name Role Phone Elsewhere, Pcp Primary Care Provider Unavailabl e Source Comments Patient records contain information from all sites at [facility]. For routine questions regarding patient records, call [phone] during business hours, M-F 8:00 AM - 5:00 PM Central Time. Record requests for emergency care only can be directed to [phone] at any time.[facility] Allergies No known active allergies Medications [...] 01/25/2024 Clinical Communication Division of Gastroenterology in [place], [place] [address] [place] [address] Katja Umana M.D. 01/14/2024 Clinical Communication Division of Gastroenterology in [place], [place] [address] [place] [phone] Katja Umana M.D. 12/29/2023 Clinical Communication [facility] [place], [place] [address] [place] [address] Katja Umana M.D. Phone Contact (Friends and family authorization ) 12/28/2023 Clinical Communication Division of Gastroenterology in [place], [place] [address] [place] [phone] Katja Umana M.D. 12/21/2023 Clinical Communication Brent Alvarenga [facility] in [place], [place] [address] [place] [phone] Katja Umana M.D. 12/20/2023 2:00 PM CDT Virtual Visit Department of Nicotine Dependence, [facility], in [place], [place] [address] [place] [address] Sudha Bernstein M.A., Jerome., C.T.T.S. Nicotine Dependence Cigarettes With Withdrawal (Primary Dx) 12/20/2023 Orders Only Department of Nicotine Dependence, [facility] in [address] [address] Sudha Bernstein M.A., Jerome., C.T.T.S. 12/20/2023 Clinical Communication Division of Gastroenterology in [address] [address] Katja Umana M.D. Scheduling 12/16/2023 9:34 AM CDT - 12/16/2023 11:22 AM CDT Hospital Encounter Department of Radiology, [facility], in [address] [address] Katja Umana M.D. Alcoholic Cirrhosis Of Liver With Ascites (HCC); Ascites Discharge Disposition: Home or Self Care 12/09/2023 4:30 PM CDT Office Visit [facility] Clinical Regeneration in [address] [address] Katja Umana M.D. Olson, Jody C, M.D. Alcoholic Cirrhosis Of Liver With Ascites (HCC) (Primary Dx); Ascites; Sarcopenia 12/08/2023 10:30 AM CDT Comprehensive Visit Section of Infectious Diseases in [address] [address] Katja Umana M.D. Brianna Anglin APRN, C.N.P., D.N.P. 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 Order Request 11/19/2023 10:08 AM YOUTH CAREER SPECIALIST - 11/19/2023 12:51 PM YOUTH CAREER SPECIALIST Hospital Encounter Department of Radiology, [place], [place] [address] [place] [address] Felipe Morales M.D. Ascites Discharge Disposition: Home or Self Care 11/18/2023 11:00 AM YOUTH CAREER SPECIALIST Virtual Visit Department of Nicotine Dependence, [place], [place] [address] [place] [phone] Sudha Bernstein M.A., L.I.C.S.W., C.T.T.S. Nicotine Dependence Cigarettes With Withdrawal (Primary Dx) 11/18/2023 Orders Only Department of Nicotine Dependence, [place], [place] [address] [place] [phone] Sudha Bernstein M.A., Yesy.I.C.S.W., C.T.T.S. 11/11/2023 11:00 AM YOUTH CAREER SPECIALIST Virtual Visit Department of Nicotine Dependence, [facility] in [place], [place] [address] [place] [address] Sudha Bernstein M.A., Yesy.I.C.S.W., C.T.T.S. Nicotine Dependence Cigarettes With Withdrawal (Primary Dx) 11/11/2023 Orders Only Department of Nicotine Dependence, [place], [place] [address] [place] [address] Sudha Bernstein M.A., L.I.C.S.W., C.T.T.S. 11/11/2023 Clinical Communication Department of Nicotine Dependence, [place], [place] [address] [place] [address] Sudha Bernstein M.A., Yesy.I.C.S.W., C.T.T.S. [place] Med Request 11/05/2023 9:29 AM YOUTH CAREER SPECIALIST - 11/05/2023 12:20 PM YOUTH CAREER SPECIALIST Hospital Encounter Department of Radiology, [facility], in [place], [place] [address] [place] [address] Felipe Morales M.D. Ascites Discharge Disposition: Home or Self Care 11/01/2023 12:28 PM YOUTH CAREER SPECIALIST - 11/01/2023 11:59 PM YOUTH CAREER SPECIALIST Hospital Encounter Department of Laboratory Medicine in [address] [phone] Katja Umana M.D. Alcoholic Cirrhosis Of Liver [...] = 0.6 oz pur e alcohol) [facility] Utilities Answer Date Recorded In the past 12 months has [employer], oil, or water [employer] threatened to shut off services in your [...] Date Recorded Employment status Working with temporary [email or web address] 10/15/2023 Housing Stability Answer Date Recorded What is your living situation today? I [facility] a [facility] live 10/15/2023 Sex and Gender Information Value Date Recorded Sex Assigned at Female 10/06/2023 10:50 AM YOUTH CAREER SPECIALIST Gender Identity Female 10/06/2023 10:50 AM YOUTH CAREER SPECIALIST Sexual Orientation Straight 10/06/2023 10 :50 AM YOUTH CAREER SPECIALIST Last Filed Vital Signs Vital Sign Reading Time Taken Comments Blood Pressure 101/47 12/16/2023 10:52 AM CDT Pulse 77 12/16/2023 10:30 AM CDT Temperature 34.7 ??C (94.5 ??F) 12/09/2023 4:21 PM CD T Respiratory Rate 10/08/2023 4:16 PM YOUTH CAREER SPECIALIST Oxygen Saturation 100% 12/16/2023 10:30 AM CDT [...] PM CDT Appointment Division of Gastroenterology in [place], [place] [address] [place] [phone] Katja Umana M.D. [address] [place] [phone] Hayden Smith M.D. [address] [place] [phone] 03/21/2024 1:00 PM CDT Virtual Visit Department of Nicotine Dependence, [facility], in [place], [place] [address] [place] [phone] Health Maintenance Due Date Last Done Comments [...] inpatients and all outpatients) 11/19/2023 11:55 AM YOUTH CAREER SPECIALIST Ascites CELL COUNT AND DIFFERENTIAL, BF Timed 11/19/2023 10:50 AM YOUTH CAREER SPECIALIST Ascites BACTERIAL CULTURE, AEROBIC + SUSC Timed 11/19/2023 10:50 AM YOUTH CAREER SPECIALIST Ascites US PARACENTESIS WITH IMAGING GUIDANCE RAD - Routine (most inpatients and all outpatients) 11/05/2023 11:25 AM YOUTH CAREER SPECIALIST Ascites CELL COUNT AND DIFFERENTIAL, BF Timed 11/05/2023 10:07 AM YOUTH CAREER SPECIALIST Ascites BACTERIAL CULTURE, AEROBIC + SUSC Timed 11/05/2023 10:07 AM YOUTH CAREER SPECIALIST Ascites BASIC METABOLIC PANEL, S/P Routine 11/01/2023 12:49 PM YOUTH CAREER SPECIALIST Alcoholic Cirrhosis Of Liver With Ascites (HCC) HCV AB SCRN W/REFLEX TO HCV PCR, S Routine 10/06/2023 12:17 PM YOUTH CAREER SPECIALIST Alcoholic Cirrhosis Of Liver With Ascites (HCC) COLONOSCOPY Routine 10/10/2015 2:45 PM YOUTH CAREER SPECIALIST from Last 3 Months or Most Recently [...] CDT Katja Umana M.D. LAB BLOOD ADD-ON [facility] [address] [place] [address], [facility] [address] [place] [address] * (ABNORMAL) CBC with Differential, Blood (12/09/2023 [...] CDT Katja Umana M.D. LAB BLOOD ADD-ON [facility] [address] [place] [address], [facility] DTL [facility] [address] [place] [address] DHPM [facility] [address] * (ABNORMAL) Comprehensive Metabolic Panel (12/09/2023 5:16 [...] M.D. LAB BLOOD ADD-ON Performing Organization Address [facility] Co de Phone Number [facility] [address] [place] [address], [facility] [address] [place] [address] * Bacterial Culture, Aerobic + Susceptibility (11/19/2023 10:50 AM YOUTH CAREER SPECIALIST) Only the most recent of2 resultswithin the time period is included. Bacterial Culture, Aerobic + Susc No growth after 5 days of incubation. 11/24/2023 8:27 AM CDT DTL Fluid (Peritoneal Fluid) 11/19/2023 10:50 AM YOUTH CAREER SPECIALIST Narrative [facility] - 11/24/2023 8:27 AM CDT Bacterial Culture: Received Bactec aerobic and Bactec anaerobic bottles Felipe Morales M.D. LAB MICROBIOLOGY - GENERAL ORDERABLES Performing Organization Address [facility] de Phone Number [facility] [address] [place] [address], [facility] [address] [place] [address] * Cell Count and Differential, Body Fluid (11/19/2023 10:50 AM YOUTH CAREER SPECIALIST) Only the most recent of2 resultswithin the time period is included. Fluid Type Peritoneal /Paracente sis 11/19/2023 12:39 PM YOUTH CAREER SPECIALIST DHPM Gross Appearance Serous 11/19/19 12:39 PM YOUTH CAREER SPECIALIST DHPM Total Nucleated Cells 201 /mcL 11/19/2023 12:39 PM YOUTH CAREER SPECIALIST DHPM Comment: ----REFERENCE VALUE---- Synovial: <150 /mcL Peritoneal: <500 /mcL Pleural: <500 /mcL Pericardial: <500 /mcL ----ADDITIONAL INFORMATION---- This test has been modified from the outside sales account executive's instructions. Its performance characteristics were determined by [facility] in a manner consistent with CLIA requirements. This test has not been cleared or approved by the U.S. Food and Drug Administration. Neutrophils 20 % 11/19/2023 1:42 PM YOUTH CAREER SPECIALIST DHPM Comment: ----REFERENCE VALUE---- Synovial: <25% Peritoneal: <25% Pleural: <25% Pericardial: <25% Lymphocytes 16 Synovial <75% % 11/19/2023 1:42 PM YOUTH CAREER SPECIALIST DHPM Monocytes/Macropha ges 60 Synovial <70% % 11/19/2023 1:42 PM YOUTH CAREER SPECIALIST DHPM Other Cells 4 % 11/19/2023 1:42 PM YOUTH CAREER SPECIALIST DHPM Comment: ----REFERENCE VALUE---- The reference range and other method performance specifications have not been established for this bodyfluid. The test result must be integrated into the clinical context for interpretation. Other Cells Are: See Comment 11/19/2023 1:42 PM YOUTH CAREER SPECIALIST DHPM Comment:Mesothelial cells Comment See Comment 11/19/2023 1:42 PM YOUTH CAREER SPECIALIST DHPM Comment:No blasts or maligna nt cells seen. Reviewed by: Jose 11/19/2023 1:42 PM YOUTH CAREER SPECIALIST DHPM Fluid (Peritoneal Fluid) 11/19/2023 10:50 AM YOUTH CAREER SPECIALIST Felipe Morales M.D. LAB BODY FLUIDS AND STOOLS ORDERABLES [facility] [address] [place] [address], [facility] [address] [place] [address] * (ABNORMAL) Basic Metabolic Panel (11/01/2023 12:49 PM YOUTH CAREER SPECIALIST) Potassium, P 4.1 3.6 - 5.2 mmol/L 11/01/2023 1:13 PM YOUTH CAREER SPECIALIST CNFL Sodium, P 128(L) 135 - 145 mmol/L 11/01/2023 1:13 PM YOUTH CAREER SPECIALIST CNFL Chloride, P 95(L) 98 - 107 mmol/L 11/01/2023 1:13 PM YOUTH CAREER SPECIALIST CNFL Bicarbonate, P 26 22 - 29 mmol/L 11/01/2023 1:13 PM YOUTH CAREER SPECIALIST CNFL Anion Gap, P 7 7 - 15 11/01/2023 1:13 PM YOUTH CAREER SPECIALIST CNFL BUN (Blood Urea Nitrogen), P 10 6 - 21 mg/dL 11/01/2023 1:13 PM YOUTH CAREER SPECIALIST CNFL Creatinine 0.42(L) 0.59 - 1.04 mg/dL 11/01/2023 1:13 PM YOUTH CAREER SPECIALIST CNFL Estimated GFR (eGFR) >90 >=60 mL/min/BSA 11/01/2023 1:13 PM YOUTH CAREER SPECIALIST CNFL Comment: Estimated GFR calculated using the 2020 CKD_EPI creatinine equation. Calcium, Total, P 8.3(L) 8.8 - 10.2 mg/dL 11/01/2023 1:13 PM YOUTH CAREER SPECIALIST CNFL Glucose, P 105 70 - 140 mg/dL 11/01/2023 1:13 PM YOUTH CAREER SPECIALIST CNFL Blood (Blood, Venous) 11/01/2023 12:49 PM YOUTH CAREER SPECIALIST 11/01/2023 12:54 PM YOUTH CAREER SPECIALIST Katja Umana M.D. LAB BLOOD ADD-ON [facility] [address] [place] [address], [facility] in [address] [address] * HCV Ab Scrn w/Reflex to HCV PCR, Serum (10/06/2023 12:17 PM YOUTH CAREER SPECIALIST) HCV Ab Screen, S Negative Negative 10/06/2023 9:12 PM YOUTH CAREER SPECIALIST [facility] Comment:Xifbqk-mf-hxqkai rat io is <1.00. Blood (Blood, Venous) 10/06/2023 12:17 PM YOUTH CAREER SPECIALIST 10/06/2023 3:57 PM YOUTH CAREER SPECIALIST Katja Umana M.D. LAB MICROBIOLOGY - B LOOD ORDERABLES [facility] [address] [place] [address] [facility] [address] [place] [address] * Colonoscopy (10/10/2015 2:45 PM YOUTH CAREER SPECIALIST) 10/10/2015 2:45 PM YOUTH CAREER SPECIALIST Tanner Calderón GI PROCEDURE [facility] [address] from Last 3 Months or Most Recently Relevant to Health Maintenance Care Teams Bean Picker Machine Operator Relationship Specialty Start Date End Date Elsewhere, Pcp PCP - General Family Medicine 12/07/23
--- OUTSIDE RECORDS SUMMARY | 2024-01-30 15:34 | XMS_ITS | Encounter Summary ---
Author Name Unknown Organization [facility] Address [address] [place] [address] Care Team Providers Care Reeling And Tubing Machine Operator Name Role Phone Elsewhere, Pcp Primary Care Provider Unavailabl e Encounter Details Date Type Department Care Team (Latest Contact Info) Description 01/25/2024 Clinical Communication Division of Gastroenterology in [place], [place] [address] [place] [address] Katja Umana M.D. [address] [place] [address] Social History Tobacco Use Types Packs/Day Years Used Date Smoking Tobacco: Every Day Cigarettes 0.5 41 Started: 02/11/1983 Passive Smoke Exposure: Never Smokeless Tobacco: Never Alcohol Use Standard Drinks/Week Comments Not Currently 0 (1 standard drink = 0.6 oz pur e alcohol) [facility] Utilities Answer Date Recorded In the past 12 months has [facility] [employer] gas, oil, or water [employer] threatened to shut off services in your [...] Date Recorded Employment status Working with temporary [employer] 10/15/2023 Housing Stability Answer Date Recorded What is your living situation today? I have a [facility] place to live 10/15/2023 Sex and Gender Information Value Date Recorded Sex Assigned at Female 10/06/2023 10:50 AM ED CASE MANAGER Gender Identity Female 10/06/2023 10:50 AM ED CASE MANAGER Sexual Orientation Straight 10/06/2023 10 :50 AM ED CASE MANAGER documented as of this encounter Plan of Treatment Upcoming Encounters Date Type Department Care Team (Late st Contact Info) Description 02/04/2024 2:15 PM CDT Appointment Division of Gastroenterology in [place], [place] [address] [place] [phone] Katja Umana M.D. [address] [place] [phone] Hayden Smith M.D. [address] [place] [phone] 03/21/2024 1:00 PM CDT Virtual Visit Department of Nicotine Dependence, [facility], in [place], [place] [address] [place] [phone] documented as of this encounter Visit Diagnoses Not on filedocumented in this encounter Additional Health Concerns Assessment Noted Time PHQ-9 Depression Total Score: 3 10/20/19 24 7:30 AM ED CASE MANAGER documented as of this encounter Care Teams Reeling And Tubing Machine Operator Relationship Specialty Start Date End Date Elsewhere, Pcp PCP - General Family Medicine 12/07/23 documented as of this encounter
--- OUTSIDE RECORDS SUMMARY | 2024-01-30 15:35 | XMS_ITS | Encounter Summary ---
Author Name Unknown Organization [facility] Address [address] [place] [address] Care Team Providers Care Dance Critic Name Role Phone Elsewhere, Pcp Primary Care Provider Unavailabl e Reason for Visit * Reason Onset Date Comments Phone Contact 12/29/2023 Friends and fami ly authorization Encounter Details Date Type Department Care Team (Latest Contact Info) Description 12/29/2023 Clinical Communication [facility] in [place], [place] [address] [place] [address] Katja Umana M.D. [address] [place] [address] Phone Contact (Friends and family authorization ) Social History Tobacco Use Types Packs/Day Years Used Date Smoking Tobacco: Every Day Cigarettes 0.5 41 Started: 02/11/1983 Passive Smoke Exposure: Never Smokeless Tobacco: Never Alcohol Use Standard Drinks/Week Comments Not Currently 0 (1 standard drink = 0.6 oz pur e alcohol) [facility] Utilities Answer Date Recorded In the past 12 months has e [employer], gas, oil, or water [employer] threatened to shut off services in your [...] Date Recorded Employment status Working with temporary [employer] 10/15/2023 Housing Stability Answer Date Recorded What is your living situation today? I have a [facility] place to live 10/15/2023 Sex and Gender Information Value Date Recorded Sex Assigned at Female 10/06/2023 10:50 AM WINDOWS MOBILE DEVELOPER Gender Identity Female 10/06/2023 10:50 AM WINDOWS MOBILE DEVELOPER Sexual Orientation Straight 10/06/2023 10 :50 AM WINDOWS MOBILE DEVELOPER documented as of this encounter Plan of Treatment Upcoming Encounters Date Type Department Care Team (Late st Contact Info) Description 02/04/2024 2:15 PM CDT Appointment Division of Gastroenterology in [place], [place] [address] [place] [address] Katja Umana M.D. [address] [place] [address] Hayden Smith M.D. [address] [place] [address] 03/21/2024 1:00 PM CDT Virtual Visit Department of Nicotine Dependence, [place], in [place], [place] [address] [place] [address] documented as of this encounter Visit Diagnoses Not on filedocumented in this encounter Additional Health Concerns Assessment Noted Time PHQ-9 Depression Total Score: 3 10/20/19 24 7:30 AM WINDOWS MOBILE DEVELOPER documented as of this encounter Care Teams Dance Critic Relationship Specialty Start Date End Date Elsewhere, Pcp PCP - General Family Medicine 12/07/23 documented as of this encounter
--- OUTSIDE RECORDS SUMMARY | 2024-01-30 15:35 | XMS_ITS | Encounter Summary ---
Author Name Unknown Organization [facility] Address [address] [place] [address] Care Team Providers Care Press Cutter Name Role Phone Unavailable Primary Care Provider Unavailabl e Reason for Referral * Outpatient (Routine) - Closed Specialty Diagnoses / Procedures Referred By Contac t Referred To Contact Diagnoses Ascites Procedures US Paracentesis with Imaging Guidance Felipe Morales M.D. 200 [place] [address] [facility] Referral ID Status Reason Start Date Expiration Date Visits Re quested Visits Authorized [id number] Closed 10/11/2023 10/10/2024 1 1 MENT CONTROL COORDINATOR Reason for Visit * Outpatient (Routine) - Closed Specialty Diagnoses / Procedures Referred By Dotty oakes Referred To Contact Diagnoses Ascites Procedures US Paracentesis with Imaging Guidance Felipe Morales M.D. 200 [place] [address] [facility] Referral ID Status Reason Start Date Expiration Date Visits Re quested Visits Authorized [id number] Closed 10/11/2023 10/10/2024 1 1 Encounter Details Date Type Department Care Team (Latest Contact Info) Description 11/05/2023 9:29 AM DOCUMENT CONTROL COORDINATOR - 11/05/2023 12:20 PM DOCUMENT CONTROL COORDINATOR Hospital Encounter Department of Radiology, [facility], in [place], [place] [address] [place] [address] Felipe Morales M.D. [address] [place] [phone] Ascites Discharge Disposition: Home or Self Care Social History Tobacco Use Types Packs/Day Years Used Date Smoking Tobacco: Every Day Cigarettes 0.5 40 Smokeless Tobacco: Never Alcohol Use Standard Drinks/Week Comments Not Currently 0 (1 standard drink = 0.6 oz pur e alcohol) [facility] Utilities Answer Date Recorded In the past 12 months has th e [employer], gas, oil, or water company threatened to [...] Sex Assigned at Female 10/06/2023 10:50 AM DOCUMENT CONTROL COORDINATOR Gender Identity Female 10/06/2023 10:50 AM DOCUMENT CONTROL COORDINATOR Sexual Orientation Straight 10/06/2023 10 :50 AM DOCUMENT CONTROL COORDINATOR documented as of this encounter Last Filed Vital Signs Vital Sign Reading Time Taken Comments Blood Pressure 106/56 11/05/2023 11:17 AM DOCUMENT CONTROL COORDINATOR Pulse 88 11/05/2023 11:17 AM DOCUMENT CONTROL COORDINATOR Temperature - - Respiratory Rate - - Oxygen Saturation 100% 11/05/2023 11:17 AM DOCUMENT CONTROL COORDINATOR Inhaled Oxygen Concentration - - Weight - - Height - - Body Mass Index - - documented in this encounter Discharge Instructions * Attachments The following attachments cannot be sent through Care Everywhere. * Paracentesis (Persian) documented in this encounter Medications at Time [...] PM CDT Appointment Division of Gastroenterology in [place], [place] [address] [place] [phone] Katja Umana M.D. [address] [place] [phone] Hayden Smith M.D. [address] [place] [phone] 03/21/2024 1:00 PM CDT Virtual Visit Department of Nicotine Dependence, [facility] in [place], [place] [address] [place] [address] documented as of this encounter Procedures Procedure Name Priority Date/Time Associated Diagnosis Comments US PARACENTESIS WITH IMAGING GUIDANCE RAD - Routine (most inpatients and all outpatients) 11/05/2023 11:25 AM DOCUMENT CONTROL COORDINATOR Ascites BACTERIAL CULTURE, AEROBIC + SUSC Timed 11/05/2023 10:07 AM DOCUMENT CONTROL COORDINATOR Ascites CELL COUNT AND DIFFERENTIAL, BF Timed 11/05/2023 10:07 AM DOCUMENT CONTROL COORDINATOR Ascites documented in this encounter Results * US Paracentesis with Imaging Guidance (11/05/2023 11:25 AM DOCUMENT CONTROL COORDINATOR) Anatomical Region Laterality Modality Abdomen, Ultrasound RST LOS, Ultrasound ARZ LOS, Procedure FLA LOS, Abdominal FLA LOS, Procedural, Procedural NWWI LOS N/A Ultrasound Impressions 11/05/2023 11:28 AM DOCUMENT CONTROL COORDINATOR Ultrasound-guided diagnostic and therapeutic paracentesis. NR Narrative 11/05/2023 11:28 AM DOCUMENT CONTROL COORDINATOR EXAM: US PARACENTESIS WITH IMAGING GUIDANCE [...] lower quadrant peritoneal space. Needle size: 5 Wolof centesis catheter. Volume aspirated: 6.8 liters aspirated, [...] lower quadrant peritoneal space. Needle size: 5 Wolof centesis catheter. Volume aspirated: 6.8 liters aspirated, [...] and Differential, Body Fluid (11/05/2023 10:07 AM DOCUMENT CONTROL COORDINATOR) Fluid Type Peritoneal /Paracente sis 11/05/2023 11:13 AM DOCUMENT CONTROL COORDINATOR DHPM Gross Appearance Serous 11/05/19 24 11:13 AM DOCUMENT CONTROL COORDINATOR DHPM Total Nucleated Cells 282 /mcL 11/05/2023 11:13 AM DOCUMENT CONTROL COORDINATOR DHPM Comment: ----REFERENCE VALUE---- Synovial: <150 /mcL Peritoneal: <500 /mcL Pleural: <500 /mcL Pericardial: <500 /mcL ----ADDITIONAL INFORMATION---- This test has been modified from the ethylbenzene oxidizer's instructions. Its performance characteristics were determined by [facility] in a manner consistent with CLIA requirements. This test has not been cleared or approved by the U.S. Food and Drug Administration. Neutrophils 3 % 11/05/2023 12:54 PM DOCUMENT CONTROL COORDINATOR DHPM Comment: ----REFERENCE VALUE---- Synovial: <25% Peritoneal: <25% Pleural: <25% Pericardial: <25% Lymphocytes 26 Synovial <75% % 11/05/2023 12:54 PM DOCUMENT CONTROL COORDINATOR DHPM Monocytes/Macropha ges 64 Synovial <70% % 11/05/2023 12:54 PM DOCUMENT CONTROL COORDINATOR DHPM Other Cells 7 % 11/05/2023 12:54 PM DOCUMENT CONTROL COORDINATOR DHPM Comment: ----REFERENCE VALUE---- The reference range and other method performance specifications have not been established for this bodyfluid. The test result must be integrated into the clinical context for interpretation. Other Cells Are: See Comment 11/05/2023 12:54 PM DOCUMENT CONTROL COORDINATOR DHPM Comment:Mesothelial cells Comment See Comment 11/05/2023 12:54 PM DOCUMENT CONTROL COORDINATOR DHPM Comment:No blasts or maligna nt cells seen.Erythrophagocytosis present. Reviewed by: Jose 11/05/2023 12:54 PM DOCUMENT CONTROL COORDINATOR DHPM Fluid (Peritoneal Fluid) 11/05/2023 10:07 AM DOCUMENT CONTROL COORDINATOR Felipe Morales M.D. LAB BODY FLUIDS AND STOOLS ORDERABLES Performing Organization Address City/State/[facility] Co de Phone Number [facility] 200 [place] [address], [facility] 200 [place] [address] * Bacterial Culture, Aerobic + Susceptibility (11/05/2023 10:07 AM DOCUMENT CONTROL COORDINATOR) Bacterial Culture, Aerobic + Susc No growth after 5 days of incubation. 2023 7:33 AM DOCUMENT CONTROL COORDINATOR DTL Fluid (Peritoneal Fluid) 11/05/2023 10:07 AM DOCUMENT CONTROL COORDINATOR Narrative [facility] - 2023 7:33 AM DOCUMENT CONTROL COORDINATOR Bacterial Culture: Received Bactec aerobic and Bactec anaerobic bottles Felipe Morales M.D. LAB MICROBIOLOGY - GENERAL ORDERABLES Performing Organization Address [facility] Co de Phone Number [facility] 200 [place] [address], [facility] 200 [place] [address] documented in this encounter Visit Diagnoses Diagnosis [...] 100 mL/hr New Bag 11/05/2023 10:39 AM DOCUMENT CONTROL COORDINATOR 25 g albumin human 25 % injection 25 g 25 g, intravenous, Once, On Wed11/05/23 at 1130, For 1 dose, If no infusion rate specified: Administer the 25% solution at 100 mL/hr New Bag 11/05/2023 11:20 AM DOCUMENT CONTROL COORDINATOR 25 g lidocaine 10 mg/mL (1 %) injection (XYLOCAINE) As needed, Starting on Wed11/05/23 at 1023, Intra-Op Given 11/05/2023 10:23 AM DOCUMENT CONTROL COORDINATOR 10 mL Abdominal Tissue documented in this encounter Active and Recently Administered Medications Times are shown in DOCUMENT CONTROL COORDINATOR. Scheduled Medication Order 11/03/2023 11/04/2023 11/05/2023 albumin [...] Total Score: 3 10/20/19 24 7:30 AM DOCUMENT CONTROL COORDINATOR documented as of this encounter
--- OUTSIDE RECORDS SUMMARY | 2024-01-30 15:35 | XMS_ITS | Encounter Summary ---
Author Name Unknown Organization [facility] Address [address] [place] [address] Care Team Providers Care Auto Radiator Mechanic Name Role Phone Elsewhere, Pcp Primary Care Provider Unavailabl e Reason for Visit * Reason Comments Nicotine Dependence * Outpatient (Routine) - Closed Specialty Diagnoses / Procedures Referred By Contac t Referred To Contact Nicotine Dependence Sudha Bernstein M.A., Yesy.I.C.S.W., C.T.T.S. [address] [place] [phone] [facility] Referral ID Status Reason Start Date Expiration Date Visits Re quested Visits Authorized [id number] Closed 11/11/2023 05/12/2025 1 1 Encounter Details Date Type Department Care Team (Late st Contact Info) Description 11/18/2023 11:00 AM CHANNEL CEMENTER OUTSOLE MACHINE Virtual Visit Department of Nicotine Dependence, [facility], in [place], [place] [address] [place] [phone] Sudha Bernstein M.A., Yesy.I.C.S.W., C.T.T.S. [address] [place] [phone] Nicotine Dependence Cigarettes With Withdrawal (Primary Dx) Social History Tobacco Use Types Packs/Day Years Used Date Smoking Tobacco: Every Day Cigarettes 0.5 40 Smokeless Tobacco: Never Alcohol Use Standard Drinks/Week Comments Not Currently 0 (1 standard drink = 0.6 oz pur e alcohol) [facility] Utilities Answer Date Recorded In the past 12 months has [employer], gas, oil, or water company threatened to [...] Sex Assigned at Female 10/06/2023 10:50 AM CHANNEL CEMENTER OUTSOLE MACHINE Gender Identity Female 10/06/2023 10:50 AM CHANNEL CEMENTER OUTSOLE MACHINE Sexual Orientation Straight 10/06/2023 10 :50 AM CHANNEL CEMENTER OUTSOLE MACHINE documented as of this encounter Progress Notes [...] 10 minutes was spent on tobacco counseling. NEL CEMENTER OUTSOLE MACHINE documented in this encounter Plan of Treatment Upcoming Encounters Date Type Department Care Team (Late st Contact Info) Description 02/04/2024 2:15 PM CDT Appointment Division of Gastroenterology in [place], [place] [address] [place] [address] Katja Umana M.D. [address] [place] [address] Hayden Smith M.D. [address] [place] [address] 03/21/2024 1:00 PM CDT Virtual Visit Department of Nicotine Dependence, [facility], in [place], [place] [address] [place] [address] documented as of this encounter Visit Diagnoses Diagnosis Nicotine Dependence Cigarettes With Withdrawal- Primary documented in this encounter Additional Health Concerns Assessment Noted Time PHQ-9 Depression Total Score: 3 10/20/19 24 7:30 AM CHANNEL CEMENTER OUTSOLE MACHINE documented as of this encounter Care Teams Auto Radiator Mechanic Relationship Specialty Start Date End Date Elsewhere, Pcp PCP - General Family Medicine 12/07/23 documented as of this encounter
--- OUTSIDE RECORDS SUMMARY | 2024-01-30 15:35 | XMS_ITS | Encounter Summary ---
Author Name Unknown Organization [facility] Address [address] [place] [address] Care Team Providers Care Grey Percher Name Role Phone Elsewhere, Pcp Primary Care Provider Unavailabl e Reason for Visit * Reason Onset Date Comments Scheduling 12/20/2023 Encounter Details Date Type Department Care Team (Latest Contact Info) Description 12/20/2023 Clinical Communication Division of Gastroenterology in [place], [place] [address] [place] [address] Katja Umana M.D. [address] [place] [phone] Scheduling Social History Tobacco Use Types Packs/Day Years Used Date Smoking Tobacco: Every Day Cigarettes 0.5 41 Started: 02/11/1983 Passive Smoke Exposure: Never Smokeless Tobacco: Never Alcohol Use Standard Drinks/Week Comments Not Currently 0 (1 standard drink = 0.6 oz pur e alcohol) [facility] Utilities Answer Date Recorded In the past 12 months has [facility] [employer], gas, oil, or water [employer] threatened to shut off services in your [...] Date Recorded Employment status Working with temporary [employer] 10/15/2023 Housing Stability Answer Date Recorded What is your living situation today? I have a [facility] place to live 10/15/2023 Sex and Gender Information Value Date Recorded Sex Assigned at Female 10/06/2023 10:50 AM TOUR PRODUCTION SUPERVISOR Gender Identity Female 10/06/2023 10:50 AM TOUR PRODUCTION SUPERVISOR Sexual Orientation Straight 10/06/2023 10 :50 AM TOUR PRODUCTION SUPERVISOR documented as of this encounter Plan of Treatment Upcoming Encounters Date Type Department Care Team (Late st Contact Info) Description 02/04/2024 2:15 PM CDT Appointment Division of Gastroenterology in [place], [place] [address] [place] [phone] Katja Umana M.D. [address] [place] [phone] Hayden Smith M.D. [address] [place] [phone] 03/21/2024 1:00 PM CDT Virtual Visit Department of Nicotine Dependence, [facility], in [place], [place] [address] [place] [phone] documented as of this encounter Visit Diagnoses Not on filedocumented in this encounter Additional Health Concerns Assessment Noted Time PHQ-9 Depression Total Score: 3 10/20/19 24 7:30 AM TOUR PRODUCTION SUPERVISOR documented as of this encounter Care Teams Grey Percher Relationship Specialty Start Date End Date Elsewhere, Pcp PCP - General Family Medicine 12/07/23 documented as of this encounter
--- OUTSIDE RECORDS SUMMARY | 2024-01-30 15:35 | XMS_ITS | Encounter Summary ---
Author Name Unknown Organization [facility] Address [address] [place] [address] Care Team Providers Care Web Applications Administrator Name Role Phone Elsewhere, Pcp Primary Care Provider Unavailabl e Encounter Details Date Type Department Care Team (Latest Contact Info) Description 12/21/2023 Clinical Communication Brent motta [facility] in [place], [place] [address] [place] [address] Katja Umana M.D. [address] [place] [address] Social History Tobacco Use Types Packs/Day Years Used Date Smoking Tobacco: Every Day Cigarettes 0.5 41 Started: 02/11/1983 Passive Smoke Exposure: Never Smokeless Tobacco: Never Alcohol Use Standard Drinks/Week Comments Not Currently 0 (1 standard drink = 0.6 oz pur e alcohol) [facility] Utilities Answer Date Recorded In the past 12 months has e [employer], gas, oil, or water [employer] threatened to shut off services in your [...] Date Recorded Employment status Working with temporary [employer] 10/15/2023 Housing Stability Answer Date Recorded What is your living situation today? I have a [facility] place to live 10/15/2023 Sex and Gender Information Value Date Recorded Sex Assigned at Female 10/06/2023 10:50 AM DIE SETTER Gender Identity Female 10/06/2023 10:50 AM DIE SETTER Sexual Orientation Straight 10/06/2023 10 :50 AM DIE SETTER documented as of this encounter Miscellaneous Notes * Telephone Encounter - Liana Estrada - 12/21/2023 10:54 AM CDT Left message for patient to call back on 12/20. documented in this encounter Plan of Treatment Upcoming Encounters Date Type Department Care Team (Late st Contact Info) Description 02/04/2024 2:15 PM CDT Appointment Division of Gastroenterology in [place], [place] 200 [place] [phone] Katja Umana M.D. 200 [place] [phone] Hayden Smith M.D. 200 [place] [address] 03/21/2024 1:00 PM CDT Virtual Visit Department of Nicotine Dependence, [facility], in [place], [place] [address] [place] [address] documented as of this encounter Visit Diagnoses Not on filedocumented in this encounter Additional Health Concerns Assessment Noted Time PHQ-9 Depression Total Score: 3 10/20/19 24 7:30 AM DIE SETTER documented as of this encounter Care Teams Web Applications Administrator Relationship Specialty Start Date End Date Elsewhere, Pcp PCP - General Family Medicine 12/07/23 documented as of this encounter
--- OUTSIDE RECORDS SUMMARY | 2024-01-30 15:35 | XMS_ITS | Encounter Summary ---
Author Name Unknown Organization [facility] Address [address] [place] [address] Care Team Providers Care Business Services Analyst Name Role Phone Elsewhere, Pcp Primary Care Provider Unavailabl e Reason for Referral * Outpatient (Routine) - Authorized Specialty Diagnoses / Procedures Referred By Dotty t Referred To Contact Diagnoses Ascites Procedures US Paracentesis with Imaging Guidance Katja Umana M.D. [address] [place] [phone] [facility] Referral ID Status Reason Start Date Expiration Date V isits Requested Visits Authorized [id number] Authorized 12/30/2023 12/29/2024 4 4 Encounter Details Date Type Department Care Team (Latest Contact Info) Description 12/28/2023 Clinical Communication Division of Gastroenterology in [place], [place] [address] [place] [phone] Katja Umana M.D. [address] [place] [phone] Social History Tobacco Use Types Packs/Day Years Used Date Smoking Tobacco: Every Day Cigarettes 0.5 41 Started: 02/11/1983 Passive Smoke Exposure: Never Smokeless Tobacco: Never Alcohol Use Standard Drinks/Week Comments Not Currently 0 (1 standard drink = 0.6 oz pur e alcohol) [facility] Utilities Answer Date Recorded In the past 12 months has [employer] electric, gas, oil, or water company threatened [...] Sex Assigned at Female 10/06/2023 10:50 AM RESEARCH ASSOCIATE QUALITY CONTROL QC Gender Identity Female 10/06/2023 10:50 AM RESEARCH ASSOCIATE QUALITY CONTROL QC Sexual Orientation Straight 10/06/2023 10 :50 AM RESEARCH ASSOCIATE QUALITY CONTROL QC documented as of this encounter Plan of Treatment Upcoming Encounters Date Type Department Care Team (Late st Contact Info) Description 02/04/2024 2:15 PM CDT Appointment Division of Gastroenterology in [place], [place] [address] [place] [address] Katja Umana M.D. 200 [place] [address] Hayden Smith M.D. 200 [place] [phone] 03/21/2024 1:00 PM CDT Virtual Visit Department of Nicotine Dependence, [facility], in [place], [place] 200 [place] [address] Scheduled Orders Name Type Priority Associated Diagnoses Order Schedule US Paracentesis with Imaging Guidance Imaging RAD - Routine (most inpatients and all outpatients) Ascites Expected: 01/13/2024, Expires: 03/30/2025 documented as of this encounter Visit Diagnoses Diagnosis Ascites- Primary documented in this encounter Additional Health Concerns Assessment Noted Time PHQ-9 Depression Total Score: 3 10/20/19 24 7:30 AM RESEARCH ASSOCIATE QUALITY CONTROL QC documented as of this encounter Care Teams Business Services Analyst Relationship Specialty Start Date End Date Elsewhere, Pcp PCP - General Family Medicine 12/07/23 documented as of this encounter
--- OUTSIDE RECORDS SUMMARY | 2024-01-30 15:35 | XMS_ITS | Encounter Summary ---
Author Name Unknown Organization [facility] Address [address] [place] [address] Care Team Providers Care Road Grader Operator Name Role Phone Unavailable Primary Care Provider Unavailabl e Reason for Visit * Reason Comments Nicotine Dependence * Outpatient (Routine) - Closed Specialty Diagnoses / Procedures Referred By Contac t Referred To Contact Nicotine Dependence Sudha Bernstein M.A., Yesy.I.C.S.W., C.T.T.S. [address] [place] [phone] [facility] Referral ID Status Reason Start Date Expiration Date Visits Re quested Visits Authorized [id number] Closed 10/28/2023 04/28/2025 1 1 Encounter Details Date Type Department Care Team (Late st Contact Info) Description 11/11/2023 11:00 AM CVICU NURSE Virtual Visit Department of Nicotine Dependence, [facility], in [place], [place] [address] [place] [phone] Sudha Bernstein M.A., Yesy.I.C.S.W., C.T.T.S. [address] [place] [phone] Nicotine Dependence Cigarettes With Withdrawal (Primary Dx) Social History Tobacco Use Types Packs/Day Years Used Date Smoking Tobacco: Every Day Cigarettes 0.5 40 Smokeless Tobacco: Never Alcohol Use Standard Drinks/Week Comments Not Currently 0 (1 standard drink = 0.6 oz pur e alcohol) [facility] Utilities Answer Date Recorded In the past 12 months has [employer] electric, gas, oil, or water company [...] Sex Assigned at Female 10/06/2023 10:50 AM CVICU NURSE Gender Identity Female 10/06/2023 10:50 AM CVICU NURSE Sexual Orientation Straight 10/06/2023 10 :50 AM CVICU NURSE documented as of this encounter Progress Notes [...] concerns. The patient denied interest in having [facility] staff ask the [facility] medicalprovider if they recommend a different dose [...] to tape and the patient was informed [facility] staff can ask the [facility] medical provider to write on the prescription [...] 25 minutes was spent on tobacco counseling. U NURSE documented in this encounter Plan of Treatment Upcoming Encounters Date Type Department Care Team (Late st Contact Info) Description 02/04/2024 2:15 PM CDT Appointment Division of Gastroenterology in [place], [place] [address] [place] [phone] Katja Umana M.D. [address] [place] [phone] Hayden Smith M.D. [address] [place] [phone] 03/21/2024 1:00 PM CDT Virtual Visit Department of Nicotine Dependence, [facility], in [place], [place] [address] [place] [phone] documented as of this encounter Visit Diagnoses Diagnosis Nicotine Dependence Cigarettes With Withdrawal- Primary documented in this encounter Additional Health Concerns Assessment Noted Time PHQ-9 Depression Total Score: 3 10/20/19 24 7:30 AM CVICU NURSE documented as of this encounter
--- OUTSIDE RECORDS SUMMARY | 2024-01-30 15:35 | XMS_ITS | Encounter Summary ---
Author Name Unknown Organization [facility] Address [address] [place] [phone] Care Team Providers Care Solution Maker Name Role Phone Unavailable Primary Care Provider Unavailabl e Reason for Referral * Outpatient (Routine) - Closed Specialty Diagnoses / Procedures Referred By Contlulu t Referred To Contact Nicotine Dependence Sudha Bernstein M.A., DonnS.Dameon., C.T.T.S. [address] [place] [phone] [facility] Referral ID Status Reason Start Date Expiration Date Visits Re quested Visits Authorized [id number] Closed 11/18/2023 05/19/2025 1 1 Scheduling Instructions Please schedule a follow up phone visit. T ANATOMIST Encounter Details Date Type Department Care Team (Late st Contact Info) Description 11/18/2023 Orders Only Department of Nicotine Dependence, [facility] in [place], [place] [address] [place] [phone] Sudha Bernstein M.A., Edwin.S.W., C.T.T.S. [address] [place] [phone] Social History Tobacco Use Types Packs/Day Years Used Date Smoking Tobacco: Every Day Cigarettes 0.5 40 Smokeless Tobacco: Never Alcohol Use Standard Drinks/Week Comments Not Currently 0 (1 standard drink = 0.6 oz pur e alcohol) [facility] Utilities Answer Date Recorded In the past 12 months has th e [employer], gas, oil, or water company threatened [...] Sex Assigned at Female 10/06/2023 10:50 AM PLANT ANATOMIST Gender Identity Female 10/06/2023 10:50 AM PLANT ANATOMIST Sexual Orientation Straight 10/06/2023 10 :50 AM PLANT ANATOMIST documented as of this encounter Plan of Treatment Upcoming Encounters Date Type Department Care Team (Late st Contact Info) Description 02/04/2024 2:15 PM CDT Appointment Division of Gastroenterology in [place], [place] [address] [place] [address] Katja Umana M.D. [address] [place] [phone] Hayden Smith M.D. [address] [place] [phone] 03/21/2024 1:00 PM CDT Virtual Visit Department of Nicotine Dependence, [facility] in [place], [place] [address] [place] [address] Scheduled Referrals Name Type Priority Associated Diagnoses Order Schedule Nicotine Dependence office visit (clinic) Outpatient Referral Routine Expected: 12/20/2023, Expires: 02/17/2025 documented as of this encounter Visit Diagnoses Not on filedocumented in this encounter Additional Health Concerns Assessment Noted Time PHQ-9 Depression Total Score: 3 10/20/19 24 7:30 AM PLANT ANATOMIST documented as of this encounter
--- OUTSIDE RECORDS SUMMARY | 2024-01-30 15:35 | XMS_ITS | Encounter Summary ---
Author Name Unknown Organization [facility] Address [address] [place] [address] Care Team Providers Care Cable Installation Technician Name Role Phone Elsewhere, Pcp Primary Care Provider Unavailabl e Reason for Visit * Reason Onset Date Comments Pre-visit Intake 12/07/2023 Encounter Details Date Type Department Care Team (Latest Contact Info) Description 12/07/2023 1:45 PM CDT Clinical Communication Virtual Review in [place], [place] 200 [place] [phone] Pre-visit Intake Social History Tobacco Use Types Packs/Day Years Used Date Smoking Tobacco: Every Day Cigarettes 0.5 41 Started: 02/11/1983 Passive Smoke Exposure: Never Smokeless Tobacco: Never Alcohol Use Standard Drinks/Week Comments Not Currently 0 (1 standard drink = 0.6 oz pur e alcohol) [facility] Utilities Answer Date Recorded In the [...] living situation today? I have a [facility] place to live 10/15/2023 Sex and Gender Information Value Date Recorded Sex Assigned at Female 10/06/2023 10:50 AM WILL CALL CLERK Gender Identity Female 10/06/2023 10:50 AM WILL CALL CLERK Sexual Orientation Straight 10/06/2023 10 :50 AM WILL CALL CLERK documented as of this encounter Plan of Treatment Upcoming Encounters Date Type Department Care Team (Late st Contact Info) Description 02/04/2024 2:15 PM CDT Appointment Division of Gastroenterology in [place], [place] [address] [place] [phone] Katja Umana M.D. [address] [place] [phone] Hayden Smith M.D. [address] [place] [phone] 03/21/2024 1:00 PM CDT Virtual Visit Department of Nicotine Dependence, [facility], in [place], [place] [address] [place] [address] documented as of this encounter Visit Diagnoses Not on filedocumented in this encounter Additional Health Concerns Assessment Noted Time PHQ-9 Depression Total Score: 3 10/20/19 24 7:30 AM WILL CALL CLERK documented as of this encounter Care Teams Cable Installation Technician Relationship Specialty Start Date End Date Elsewhere, Pcp PCP - General Family Medicine 12/07/23 documented as of this encounter
--- OUTSIDE RECORDS SUMMARY | 2024-01-30 15:35 | XMS_ITS | Encounter Summary ---
Author Name Unknown Organization [facility] Address [address] [place] [address] Care Team Providers Care Mechanical Piping Designer Name Role Phone Elsewhere, Pcp Primary Care Provider Unavailabl e Encounter Details Date Type Department Care Team (Latest Contact Info) Description 01/14/2024 Clinical Communication Division of Gastroenterology in [place], [place] [address] [place] [address] Katja Umana M.D. [address] [place] [address] Social History Tobacco Use Types Packs/Day Years Used Date Smoking Tobacco: Every Day Cigarettes 0.5 41 Started: 02/11/1983 Passive Smoke Exposure: Never Smokeless Tobacco: Never Alcohol Use Standard Drinks/Week Comments Not Currently 0 (1 standard drink = 0.6 oz pur e alcohol) [facility] Utilities Answer Date Recorded In the past 12 months has [facility] [employer], gas, oil, or water [employer] threatened to shut off services in your [...] Date Recorded Employment status Working with temporary [employer] 10/15/2023 Housing Stability Answer Date Recorded What is your living situation today? I have a [facility] place to live 10/15/2023 Sex and Gender Information Value Date Recorded Sex Assigned at Female 10/06/2023 10:50 AM WELL TREATMENT OFFSIDER Gender Identity Female 10/06/2023 10:50 AM WELL TREATMENT OFFSIDER Sexual Orientation Straight 10/06/2023 10 :50 AM WELL TREATMENT OFFSIDER documented as of this encounter Plan of Treatment Upcoming Encounters Date Type Department Care Team (Late st Contact Info) Description 02/04/2024 2:15 PM CDT Appointment Division of Gastroenterology in [place], [place] [address] [place] [phone] Katja Umana M.D. [address] [place] [phone] Hayden Smith M.D. [address] [place] [phone] 03/21/2024 1:00 PM CDT Virtual Visit Department of Nicotine Dependence, [facility], in [place], [place] [address] [place] [phone] documented as of this encounter Visit Diagnoses Not on filedocumented in this encounter Additional Health Concerns Assessment Noted Time PHQ-9 Depression Total Score: 3 10/20/19 24 7:30 AM WELL TREATMENT OFFSIDER documented as of this encounter Care Teams Mechanical Piping Designer Relationship Specialty Start Date End Date Elsewhere, Pcp PCP - General Family Medicine 12/07/23 documented as of this encounter
--- OUTSIDE RECORDS SUMMARY | 2024-01-30 15:35 | XMS_ITS | Encounter Summary ---
Author Name Unknown Organization [facility] Address [address] [place] [address] Care Team Providers Care Motorcycle Police Name Role Phone Unavailable Primary Care Provider Unavailabl e Reason for Referral * Outpatient (Routine) - Closed Specialty Diagnoses / Procedures Referred By Contlulu t Referred To Contact Nicotine Dependence Sudha Bernstein M.A., DonnS.W., C.T.T.S. [address] [place] [phone] [facility] Referral ID Status Reason Start Date Expiration Date Visits Re quested Visits Authorized [id number] Closed 11/11/2023 05/12/2025 1 1 Scheduling Instructions Please schedule a follow up phone visit at 11:00am, HANDLER Encounter Details Date Type Department Care Team (Late st Contact Info) Description 11/11/2023 Orders Only Department of Nicotine Dependence, [facility] in [place], [place] [address] [place] [phone] Sudha Bernstein M.A., Edwin.S.W., C.T.T.S. [address] [place] [phone] Social History Tobacco Use Types Packs/Day Years Used Date Smoking Tobacco: Every Day Cigarettes 0.5 40 Smokeless Tobacco: Never Alcohol Use Standard Drinks/Week Comments Not Currently 0 (1 standard drink = 0.6 oz pur e alcohol) [facility] Utilities Answer Date Recorded In [...] Date Recorded Employment status Working with temporary [employer] 10/15/2023 Housing Stability Answer Date Recorded What is your living situation today? I have a [facility] place to live 10/15/2023 Sex and Gender Information Value Date Recorded Sex Assigned at Female 10/06/2023 10:50 AM ART HANDLER Gender Identity Female 10/06/2023 10:50 AM ART HANDLER Sexual Orientation Straight 10/06/2023 10 :50 AM ART HANDLER documented as of this encounter Plan of Treatment Upcoming Encounters Date Type Department Care Team (Late st Contact Info) Description 02/04/2024 2:15 PM CDT Appointment Division of Gastroenterology in [place], [place] [address] [place] [address] Katja Umana M.D. [address] [place] [phone] Hayden Smith M.D. [address] [place] [address] 03/21/2024 1:00 PM CDT Virtual Visit Department of Nicotine Dependence, [facility], in [place], [place] [address] [place] [address] Scheduled Referrals Name Type Priority Associated Diagnoses Order Schedule Nicotine Dependence office visit (clinic) Outpatient Referral Routine Expected: 11/18/2023, Expires: 02/08/2025 documented as of this encounter Visit Diagnoses Not on filedocumented in this encounter Additional Health Concerns Assessment Noted Time PHQ-9 Depression Total Score: 3 10/20/19 24 7:30 AM ART HANDLER documented as of this encounter
--- OUTSIDE RECORDS SUMMARY | 2024-01-30 15:35 | XMS_ITS | Encounter Summary ---
Author Name Unknown Organization [facility] Address [address] [place] [address] Care Team Providers Care Welding Machine Operator Name Role Phone Unavailable Primary Care Provider Unavailabl e Reason for Referral * Outpatient (Routine) - Closed Specialty Diagnoses / Procedures Referred By Contac t Referred To Contact Diagnoses Ascites Procedures US Paracentesis with Imaging Guidance Felipe Morales M.D. [address] [place] [phone] [facility] Referral ID Status Reason Start Date Expiration Date Visits Re quested Visits Authorized [id number] Closed 10/11/2023 10/10/2024 1 1 PAPER CORRESPONDENT Reason for Visit * Outpatient (Routine) - Closed Specialty Diagnoses / Procedures Referred By Dotty oakes Referred To Contact Diagnoses Ascites Procedures US Paracentesis with Imaging Guidance Felipe Morales M.D. 200 [place] [address] [facility] Referral ID Status Reason Start Date Expiration Date Visits Re quested Visits Authorized [id number] Closed 10/11/2023 10/10/2024 1 1 Encounter Details Date Type Department Care Team (Latest Contact Info) Description 11/19/2023 10:08 AM NEWSPAPER CORRESPONDENT - 11/19/2023 12:51 PM NEWSPAPER CORRESPONDENT Hospital Encounter Department of Radiology, [facility], in [place], [place] [address] [place] [address] Felipe Morales M.D. [address] [place] [phone] Ascites Discharge Disposition: Home or Self Care Social History Tobacco Use Types Packs/Day Years Used Date Smoking Tobacco: Every Day Cigarettes 0.5 40 Smokeless Tobacco: Never Alcohol Use Standard Drinks/Week Comments Not Currently 0 (1 standard drink = 0.6 oz pur e alcohol) [facility] Utilities Answer Date Recorded In the past 12 months has th e [employer], gas, oil, or water company threatened to [...] your living situation today? I have a [facility] place to live 10/15/2023 Sex and Gender Information Value Date Recorded Sex Assigned at Female 10/06/2023 10:50 AM NEWSPAPER CORRESPONDENT Gender Identity Female 10/06/2023 10:50 AM NEWSPAPER CORRESPONDENT Sexual Orientation Straight 10/06/2023 10 :50 AM NEWSPAPER CORRESPONDENT documented as of this encounter Last Filed Vital Signs Vital Sign Reading Time Taken Comments Blood Pressure 91/46 11/19/2023 11:45 AM NEWSPAPER CORRESPONDENT Pulse 84 11/19/2023 11:45 AM NEWSPAPER CORRESPONDENT Temperature - - Respiratory Rate - - Oxygen Saturation 100% 11/19/2023 11:45 AM NEWSPAPER CORRESPONDENT Inhaled Oxygen Concentration - - Weight - [...] PM CDT Appointment Division of Gastroenterology in [place], [place] [address] [place] [address] Katja Umana M.D. [address] [place] [phone] Hayden Smith M.D. [address] [place] [phone] 03/21/2024 1:00 PM CDT Virtual Visit Department of Nicotine Dependence, [facility], in [place], [place] [address] [place] [address] Scheduled Orders Name Type Priority Associated Diagnoses Order Schedule Bacterial Culture, Aerobic + Susceptibility Microbiology Timed Ascites For manual release during upcoming procedure for 1 Occurrences starting 11/19/2023 until 11/19/2023 documented as of this encounter Procedures Procedure Name Priority Date/Time Associated Diagnosis Comments US PARACENTESIS WITH IMAGING GUIDANCE RAD - Routine (most inpatients and all outpatients) 11/19/2023 11:55 AM NEWSPAPER CORRESPONDENT Ascites BACTERIAL CULTURE, AEROBIC + SUSC Timed 11/19/2023 10:50 AM NEWSPAPER CORRESPONDENT Ascites CELL COUNT AND DIFFERENTIAL, BF Timed 11/19/2023 10:50 AM NEWSPAPER CORRESPONDENT Ascites documented in this encounter Results * US Paracentesis with Imaging Guidance (11/19/2023 11:55 AM NEWSPAPER CORRESPONDENT) Anatomical Region Laterality Modality Abdomen, Ultrasound RST LOS, Ultrasound ARZ LOS, Procedure FLA LOS, Abdominal FLA LOS, Procedural, Procedural NWWI LOS N/A Ultrasound Impressions 11/19/2023 12:26 PM NEWSPAPER CORRESPONDENT Ultrasound-guided paracentesis. EP Narrative 11/19/2023 12:26 PM NEWSPAPER CORRESPONDENT EXAM: US PARACENTESIS WITH IMAGING GUIDANCE PRE-PROCEDURE: [...] Culture, Aerobic + Susceptibility (11/19/2023 10:50 AM NEWSPAPER CORRESPONDENT) Bacterial Culture, Aerobic + Susc No growth after 5 days of incubation. 11/24/2023 8:27 AM CDT DTL Fluid (Peritoneal Fluid) 11/19/2023 10:50 AM NEWSPAPER CORRESPONDENT Narrative [facility] - 11/24/2023 8:27 AM CDT Bacterial Culture: Received Bactec aerobic and Bactec anaerobic bottles Felipe Morales M.D. LAB MICROBIOLOGY - GENERAL ORDERABLES [facility] [address] [place] [address], [facility] [address] [place] [address] * Cell Count and Differential, Body Fluid (11/19/2023 10:50 AM NEWSPAPER CORRESPONDENT) Fluid Type Peritoneal /Paracente sis 11/19/2023 12:39 PM NEWSPAPER CORRESPONDENT DHPM Gross Appearance Serous 11/19/19 24 12:39 PM NEWSPAPER CORRESPONDENT DHPM Total Nucleated Cells 201 /mcL 11/19/2023 12:39 PM NEWSPAPER CORRESPONDENT DHPM Comment: ----REFERENCE VALUE---- Synovial: <150 /mcL Peritoneal: <500 /mcL Pleural: <500 /mcL Pericardial: <500 /mcL ----ADDITIONAL INFORMATION---- This test has been modified from the condenser operator's instructions. Its performance characteristics were determined by [facility] in a manner consistent with CLIA requirements. This test has not been cleared or approved by the U.S. Food and Drug Administration. Neutrophils 20 % 11/19/2023 1:42 PM NEWSPAPER CORRESPONDENT DHPM Comment: ----REFERENCE VALUE---- Synovial: <25% Peritoneal: <25% Pleural: <25% Pericardial: <25% Lymphocytes 16 Synovial <75% % 11/19/2023 1:42 PM NEWSPAPER CORRESPONDENT DHPM Monocytes/Macropha ges 60 Synovial <70% % 11/19/2023 1:42 PM NEWSPAPER CORRESPONDENT DHPM Other Cells 4 % 11/19/2023 1:42 PM NEWSPAPER CORRESPONDENT DHPM Comment: ----REFERENCE VALUE---- The reference range and other method performance specifications have not been established for this bodyfluid. The test result must be integrated into the clinical context for interpretation. Other Cells Are: See Comment 11/19/2023 1:42 PM NEWSPAPER CORRESPONDENT DHPM Comment:Mesothelial cells Comment See Comment 11/19/2023 1:42 PM NEWSPAPER CORRESPONDENT DHPM Comment:No blasts or maligna nt cells seen. Reviewed by: Jose 11/19/2023 1:42 PM NEWSPAPER CORRESPONDENT DHPM Fluid (Peritoneal Fluid) 11/19/2023 10:50 AM NEWSPAPER CORRESPONDENT Felipe Moralse M.D. LAB BODY FLUIDS AND STOOLS ORDERABLES [facility] [address] [place] [address], [facility] 200 [place] [address] documented in this encounter Visit Diagnoses Diagnosis [...] provider's discretion) New Bag 11/19/2023 11:11 AM NEWSPAPER CORRESPONDENT 50 g 100 mL/hr lidocaine 10 mg/mL (1 %) injection (XYLOCAINE) As needed, Starting on Wed11/19/23 at 1056, Intra-Op Given 11/19/2023 10:56 AM NEWSPAPER CORRESPONDENT 5 mL Abdominal Tissue documented in this encounter Active and Recently Administered Medications Times are shown in NEWSPAPER CORRESPONDENT. Scheduled Medication Order 11/17/2023 11/18/2023 11/19/2023 albumin [...] Total Score: 3 10/20/19 24 7:30 AM NEWSPAPER CORRESPONDENT documented as of this encounter
--- OUTSIDE RECORDS SUMMARY | 2024-01-30 15:35 | XMS_ITS | Encounter Summary ---
Author Name Unknown Organization [facility] Address [address] [place] [phone] Care Team Providers Care Hedge Fund Accountant Name Role Phone Elsewhere, Pcp Primary Care Provider Unavailabl e Reason for Visit * Outpatient (Routine) - Closed Specialty Diagnoses / Procedures Referred By Dotty t Referred To Contact Preventive Medicine Diagnoses Alcoholic Cirrhosis Of Liver With Ascites (HCC) Katja Umana M.D. [address] [place] [phone] [facility] Referral ID Status Reason Start Date Expiration Date Visits Re quested Visits Authorized [id number] Closed 10/15/2023 04/15/2025 1 1 Encounter Details Date Type Department Care Team (Latest Contact Info) Description 12/08/2023 10:30 AM CDT Comprehensive Visit Section of Infectious Diseases in [place], [place] [address] [place] [phone] Katja Umana M.D. [address] [place] [phone] Brianna Anglin APRN, C.N.P., D.N.P. [address] [place] [phone] Counseling And Review Vaccination Status (Primary [...] oz pur e alcohol) [facility] Utilities Answer Date Recorded In [...] Sex Assigned at Female 10/06/2023 10:50 AM HOSPITAL CNA Gender Identity Female 10/06/2023 10:50 AM HOSPITAL CNA Sexual Orientation Straight 10/06/2023 10 :50 AM HOSPITAL CNA documented as of this encounter Patient Instructions [...] followed by the Hepatobiliary team here at [facility]. They have requested for patient to [...] PM CDT Appointment Division of Gastroenterology in [place], [place] [address] [place] [phone] Katja Umana M.D. [address] [place] [phone] Hayden Smith M.D. 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
--- OUTSIDE RECORDS SUMMARY | 2024-01-30 15:35 | XMS_ITS | Encounter Summary ---
Author Name Unknown Organization [facility] Address [address] [place] [address] Care Team Providers Care Assistant Baseball Coach Name Role Phone Elsewhere, Pcp Primary Care Provider Unavailabl e Reason for Referral * Outpatient (Routine) - Authorized Specialty Diagnoses / Procedures Referred By Contac t Referred To Contact Nicotine Dependence Sudha Bernstein M.A., Jerome., C.T.T.S. [address] [place] [phone] [facility] Referral ID Status Reason Start Date Expiration Date V isits Requested Visits Authorized [id number] Authorized 12/20/2023 06/20/2025 1 1 Scheduling Instructions Please schedule this patient for a follow up phone visit on March 21. No need to call it can just be added to my calendar. Encounter Details Date Type Department Care Team (Late st Contact Info) Description 12/20/2023 Orders Only Department of Nicotine Dependence, [facility], in [place], [place] [address] [place] [phone] Sudha Bernstein M.A., DonnS.W., C.T.T.S. [address] [place] [phone] Social History Tobacco Use Types Packs/Day Years Used Date Smoking Tobacco: Every Day Cigarettes 0.5 41 Started: 02/11/1983 Passive Smoke Exposure: Never Smokeless Tobacco: Never Alcohol Use Standard Drinks/Week Comments Not Currently 0 (1 standard drink = 0.6 oz pur e alcohol) [facility] Utilities Answer Date Recorded In the [...] your living situation today? I have a [facility] place to live 10/15/2023 Sex and Gender Information Value Date Recorded Sex Assigned at Female 10/06/2023 10:50 AM CANDY ROLLING MACHINE OPERATOR Gender Identity Female 10/06/2023 10:50 AM CANDY ROLLING MACHINE OPERATOR Sexual Orientation Straight 10/06/2023 10 :50 AM CANDY ROLLING MACHINE OPERATOR documented as of this encounter Plan of Treatment Upcoming Encounters Date Type Department Care Team (Late st Contact Info) Description 02/04/2024 2:15 PM CDT Appointment Division of Gastroenterology in [place], [place] [address] [place] [phone] Katja Umana M.D. [address] [place] [phone] Hayden Smith M.D. [address] [place] [phone] 03/21/2024 1:00 PM CDT Virtual Visit Department of Nicotine Dependence, [facility] in [place], [place] [address] [place] [phone] Scheduled Referrals Name Type Priority Associated Diagnoses Order Schedule Nicotine Dependence office visit (clinic) Outpatient Referral Routine Expected: 03/21/2024, Expires: 03/20/2025 documented as of this encounter Visit Diagnoses Not on filedocumented in this encounter Additional Health Concerns Assessment Noted Time PHQ-9 Depression Total Score: 3 10/20/19 24 7:30 AM CANDY ROLLING MACHINE OPERATOR documented as of this encounter Care Teams Assistant Baseball Coach Relationship Specialty Start Date End Date Elsewhere, Pcp PCP - General Family Medicine 12/07/23 documented as of this encounter
--- OUTSIDE RECORDS SUMMARY | 2024-01-30 15:35 | XMS_ITS | Encounter Summary ---
Author Name Unknown Organization [facility] Address [address] [place] [address] Care Team Providers Care Business Information Consultant Name Role Phone Elsewhere, Pcp Primary Care Provider Unavailabl e Reason for Referral * Outpatient (Routine) - Authorized Specialty Diagnoses / Procedures Referred By Dotty t Referred To Contact Diagnoses Ascites Procedures US Paracentesis with Imaging Guidance Katja Umana M.D. [address] [place] [phone] [facility] Referral ID Status Reason Start Date Expiration Date V isits Requested Visits Authorized [id number] Authorized 11/23/2023 11/22/2024 1 1 Reason for Visit * Reason Onset Date Comments Order Request 11/22/2023 Encounter Details Date Type Department Care Team (Latest Contact Info) Description 11/22/2023 Clinical Communication Division of Gastroenterology in [place], [place] [address] [place] [phone] Katja Umana M.D. [address] [place] [phone] Order Request Social History Tobacco Use Types [...] Date Recorded Employment status Working with temporary [employer] 10/15/2023 Housing Stability Answer Date Recorded What is your living situation today? I have a [facility] place to live 10/15/2023 Sex and Gender Information Value Date Recorded Sex Assigned at Female 10/06/2023 10:50 AM ROLL CUTTER Gender Identity Female 10/06/2023 10:50 AM ROLL CUTTER Sexual Orientation Straight 10/06/2023 10 :50 AM ROLL CUTTER documented as of this encounter Plan of Treatment Upcoming Encounters Date Type Department Care Team (Late st Contact Info) Description 02/04/2024 2:15 PM CDT Appointment Division of Gastroenterology in [place], [place] [address] [place] [address] Katja Umana M.D. 200 [place] [phone] Hayden Smith M.D. 200 [place] [phone] 03/21/2024 1:00 PM CDT Virtual Visit Department of Nicotine Dependence, [facility], in [place], [place] 200 [place] [address] Scheduled Orders Name Type Priority Associated Diagnoses Order Schedule US Paracentesis with Imaging Guidance Imaging RAD - Routine (most inpatients and all outpatients) Ascites Expected: 12/03/2023, Expires: 02/22/2025 documented as of this encounter Visit Diagnoses Diagnosis Ascites- Primary documented in this encounter Additional Health Concerns Assessment Noted Time PHQ-9 Depression Total Score: 3 10/20/19 24 7:30 AM ROLL CUTTER documented as of this encounter Care Teams Business Information Consultant Relationship Specialty Start Date End Date Elsewhere, Pcp PCP - General Family Medicine 12/07/23 documented as of this encounter
--- OUTSIDE RECORDS SUMMARY | 2024-01-30 15:35 | XMS_ITS | Encounter Summary ---
Author Name Unknown Organization [facility] Address [address] [place] [address] Care Team Providers Care Double Needle Stitcher Name Role Phone Elsewhere, Pcp Primary Care Provider Unavailabl e Reason for Referral * Outpatient (Routine) - Authorized Specialty Diagnoses / Procedures Referred By Contac t Referred To Contact Diagnoses Alcoholic Cirrhosis Of Liver With Ascites (HCC) Ascites Procedures US Paracentesis with Imaging Guidance Katja Umana M.D. 200 [place] [phone] [facility] Referral ID Status Reason Start Date Expiration Date V isits Requested Visits Authorized [id number] Authorized 12/09/2023 12/08/2024 8 8 Reason for Visit * Outpatient (Routine) - Authorized Specialty Diagnoses / Procedures Referred By Dotty oakes Referred To Contact Diagnoses Alcoholic Cirrhosis Of Liver With Ascites (HCC) Ascites Procedures US Paracentesis with Imaging Guidance Katja Umana M.D. 200 [place] [address] [facility] Referral ID Status Reason Start Date Expiration Date V isits Requested Visits Authorized [id number] Authorized 12/09/2023 12/08/2024 8 8 Encounter Details Date Type Department Care Team (Latest Contact Info) Description 12/16/2023 9:34 AM CDT - 12/16/2023 11:22 AM CDT Hospital Encounter Department of Radiology, [facility], in [place], [place] [address] [place] [address] Katja Umana M.D. [address] [place] [address] Alcoholic Cirrhosis Of Liver With Ascites (HCC); [...] th e electric, gas, oil, or water [employer] threatened to shut off services in your [...] Sex Assigned at Female 10/06/2023 10:50 AM CD MIXER Gender Identity Female 10/06/2023 10:50 AM CD MIXER Sexual Orientation Straight 10/06/2023 10 :50 AM CD MIXER documented as of this encounter Last Filed [...] be sent through Care Everywhere. * Paracentesis (Italian) documented in this encounter Medications at Time [...] PM CDT Appointment Division of Gastroenterology in [place], [place] [address] [place] [phone] Katja Umana M.D. [address] [place] [phone] Hayden Smith M.D. [address] [place] [phone] 03/21/2024 1:00 PM CDT Virtual Visit Department of Nicotine Dependence, [facility] in [place], [place] [address] [place] [address] documented as of this encounter Procedures Procedure [...] Total Score: 3 10/20/19 24 7:30 AM CD MIXER documented as of this encounter Care Teams Double Needle Stitcher Relationship Specialty Start Date End Date Elsewhere, Pcp PCP - General Family Medicine 12/07/23 documented as of this encounter
--- OUTSIDE RECORDS SUMMARY | 2024-01-30 15:35 | XMS_ITS | Encounter Summary ---
Author Name Unknown Organization [facility] Address [address] [place] [address] Care Team Providers Care Quartz Cutter Name Role Phone Elsewhere, Pcp Primary Care Provider Unavailabl e Reason for Visit * Reason Comments Nicotine Dependence * Outpatient (Routine) - Closed Specialty Diagnoses / Procedures Referred By Contac t Referred To Contact Nicotine Dependence Sudha Bernstein M.A., Yesy.I.C.S.W., C.T.T.S. [address] [place] [phone] [facility] Referral ID Status Reason Start Date Expiration Date Visits Re quested Visits Authorized [id number] Closed 11/18/2023 05/19/2025 1 1 Encounter Details Date Type Department Care Team (Late st Contact Info) Description 12/20/2023 2:00 PM CDT Virtual Visit Department of Nicotine Dependence, [facility], in [place], [place] [address] [place] [phone] Sudha Bernstein M.A., Yesy.I.C.S.W., C.T.T.S. [address] [place] [phone] Nicotine Dependence Cigarettes With Withdrawal (Primary Dx) Social History Tobacco Use Types Packs/Day Years Used Date Smoking Tobacco: Every Day Cigarettes 0.5 41 Started: 02/11/1983 Passive Smoke Exposure: Never Smokeless Tobacco: Never Alcohol Use Standard Drinks/Week Comments Not Currently 0 (1 standard drink = 0.6 oz pur e alcohol) [facility] Utilities Answer Date Recorded In the past 12 months has [employer], gas, oil, or water company threatened to [...] Date Recorded Employment status Working with temporary [employer] t[employer] 10/15/2023 Housing Stability Answer Date Recorded What is your living situation today? I have a [facility] place to live 10/15/2023 Sex and Gender Information Value Date Recorded Sex Assigned at Female 10/06/2023 10:50 AM TRIAGE ASSISTANT Gender Identity Female 10/06/2023 10:50 AM TRIAGE ASSISTANT Sexual Orientation Straight 10/06/2023 10 :50 AM TRIAGE ASSISTANT documented as of this encounter Progress Notes * Sudha Bernstein M.A., L.I.C.S.W., M.S.W. - 12/20/2023 2:00 PM CDT OBJECTIVE Monique Redmond attended a phone follow-up appointment regarding her tobacco use. ASSESSMENT [facility] [place] the patient as a [...] patient was asked if she would like [facility] [place] [place] to contact her in the [...] PM CDT Appointment Division of Gastroenterology in [place], [place] [address] [place] [phone] Katja Umana M.D. [address] [place] [phone] Hayden Smith M.D. [address] [place] [phone] 03/21/2024 1:00 PM CDT Virtual Visit Department of Nicotine Dependence, [facility], in [place], [place] [address] [place] [place] [phone] documented as of this encounter Visit Diagnoses Diagnosis Nicotine Dependence Cigarettes With Withdrawal- Primary documented in this encounter Additional Health Concerns Assessment Noted Time PHQ-9 Depression Total Score: 3 10/20/19 24 7:30 AM TRIAGE ASSISTANT documented as of this encounter Care Teams Quartz Cutter Relationship Specialty Start Date End Date Elsewhere, Pcp PCP - General Family Medicine 12/07/23 documented as of this encounter
--- OUTSIDE RECORDS SUMMARY | 2024-01-30 15:35 | XMS_ITS | Encounter Summary ---
Author Name Unknown Organization [facility] Address [address] [place] [address] Care Team Providers Care Furniture Polisher Name Role Phone Elsewhere, Pcp Primary Care Provider Unavailabl e Reason for Referral * Outpatient (Routine) - Authorized Specialty Diagnoses / Procedures Referred By Contac t Referred To Contact Nutrition Diagnoses Alcoholic Cirrhosis Of Liver With Ascites (HCC) Sarcopenia Katja Umana M.D. 200 [place] [address] [facility] Referral ID Status Reason Start Date Expiration Date V isits Requested Visits Authorized [id number] Authorized 12/09/2023 06/09/2025 1 1 * Outpatient (Routine) - Authorized Specialty Diagnoses / Procedures Referred By Contac t Referred To Contact Diagnoses Alcoholic Cirrhosis Of Liver With Ascites (HCC) Ascites Procedures US Paracentesis with Imaging Guidance Katja Umana M.D. 200 [place] [address] [facility] Referral ID Status Reason Start Date Expiration Date V isits Requested Visits Authorized [id number] Authorized 12/09/2023 12/08/2024 8 8 Reason for Visit * Outpatient (Routine) - Closed Specialty Diagnoses / Procedures Referred By Contact Referred To Contact Gastroenterology and Hepatology Katja Umana M.D. 200 [place] [phone] [facility] Referral ID Status Reason Start Date Expiration Date Visits Re quested Visits Authorized [id number] Closed 10/28/2023 04/28/2025 1 1 Encounter Details Date Type Department Care Team (Latest Contact Info) Description 12/09/2023 4:30 PM CDT Office Visit [facility] in [place], [place] [address] [place] [phone] Katja Umana M.D. [address] [place] [phone] Rose Palacios M.D. 200 [place] [phone] Alcoholic Cirrhosis Of Liver With Ascites (HCC) (Primary Dx); Ascites; Sarcopenia Social History Tobacco Use Types Packs/Day Years Used Date Smoking Tobacco: Every Day Cigarettes 0.5 41 Started: 02/11/1983 Passive Smoke Exposure: Never Smokeless Tobacco: Never Alcohol Use Standard Drinks/Week Comments Not Currently 0 (1 standard drink = 0.6 oz pur e alcohol) [facility] Utilities Answer Date Recorded In the past 12 months has th e [employer], gas, oil, or water [employer] threatened to shut off services in your [...] Date Recorded Employment status Working with temporary [employer] t[employer] 10/15/2023 Housing Stability Answer Date Recorded What is your living situation today? I have a [facility] place to live 10/15/2023 Sex and Gender Information Value Date Recorded Sex Assigned at Female 10/06/2023 10:50 AM TAPE CUTTING MACHINE OPERATOR Gender Identity Female 10/06/2023 10:50 AM TAPE CUTTING MACHINE OPERATOR Sexual Orientation Straight 10/06/2023 10 :50 AM TAPE CUTTING MACHINE OPERATOR documented as of this encounter [...] Mrs. Redmond was hospitalized locally from 12/02/2023-12/06/2023 ([facility]) for progressive fatigue and decreased exercise [...] last colonoscopy was performed in 2019 in [place]. I am not able to see this report. She is recommended to follow-up with her PCP for completing surveillance colonoscopy. If she is not able tocomplete this locally, then we can arrange for this to be done at [place]. All questions were answered. This plan will be discussed with Dr. Morales. BILLING: I personally spent over half of a total 35 minutes in counseling and discussion with the patient and coordination of care as described above. Signed: Katja Umana M.D. Gastroenterology and Hepatology Fellow Pager [phone] documented in this encounter Plan of Treatment Upcoming Encounters Date Type Department Care Team (Late st Contact Info) Description 02/04/2024 2:15 PM CDT Appointment Division of Gastroenterology in [place], [place] [address] [place] [address] Katja Umana M.D. [address] [place] [address] Hayden Smith M.D. [address] [place] [address] 03/21/2024 1:00 PM CDT Virtual Visit Department of Nicotine Dependence, [facility], in [place], [place] [address] [place] [address] Scheduled Referrals Name Type Priority Associated Diagnoses [...] Umana M.D. LAB BLOOD ADD-ON [facility] [address] [place] [address], [place] DTL [address] [address] * (ABNORMAL) Comprehensive Metabolic Panel (12/09/2023 5:16 PM CDT) [facility] Potassium, S 5.0 3.6 - 5.2 [...] CDT Katja Umana M.D. LAB BLOOD ADD-ON [facility] [address] [place] [address], [facility] DTL [facility] [address] [place] [address] * (ABNORMAL) CBC with Differential, Blood (12/09/2023 [...] CDT Katja Umana M.D. LAB BLOOD ADD-ON [facility] [address] [place] [address], [facility] DTL [facility] [address] [place] [phone] [facility] [address] [place] [address] documented in this encounter Visit Diagnoses Diagnosis Alcoholic Cirrhosis Of Liver With Ascites (HCC)- Primary Ascites Sarcopenia Alcoholic Cirrhosis Of Liver With Ascites (HCC) Ascites documented in this encounter Additional Health Concerns Assessment Noted Time PHQ-9 Depression Total Score: 3 10/20/19 24 7:30 AM TAPE CUTTING MACHINE OPERATOR documented as of this encounter Care Teams Furniture Polisher Relationship Specialty Start Date End Date Elsewhere, Pcp PCP - General Family Medicine 12/07/23 documented as of this encounter
--- OUTSIDE RECORDS SUMMARY | 2024-01-30 15:35 | XMS_ITS | Encounter Summary ---
Author Name Unknown Organization [facility] Address [address] [place] [address] Care Team Providers Care Button Grader Name Role Phone Unavailable Primary Care Provider Unavailabl e Reason for Visit * Reason Onset Date Comments NDC Med Request 11/11/2023 Encounter Details Date Type Department Care Team (Latest Contact Info) Description 11/11/2023 Clinical Communication Department of Nicotine Dependence, [facility], in [place], [place] [address] [place] [address] Sudha Bernstein M.A., L.I.C.S.W., C.T.T.S. [address] [place] [phone] NDC Med Request Social History Tobacco Use Types Packs/Day Years Used Date Smoking Tobacco: Every Day Cigarettes 0.5 40 Smokeless Tobacco: Never Alcohol Use Standard Drinks/Week Comments Not Currently 0 (1 standard drink = 0.6 oz pur e alcohol) [facility] Utilities Answer Date Recorded In the past 12 months has [employer], gas, oil, or water [employer] threatened to shut off services in your [...] Date Recorded Employment status Working with temporary [employer] Dating by [employer] 10/15/2023 Housing Stability Answer Date Recorded What is your living situation today? I have a [facility] place to live 10/15/2023 Sex and Gender Information Value Date Recorded Sex Assigned at Female 10/06/2023 10:50 AM A OPERATOR Gender Identity Female 10/06/2023 10:50 AM A OPERATOR Sexual Orientation Straight 10/06/2023 10 :50 AM A OPERATOR documented as of this encounter Miscellaneous Notes * Telephone Encounter - Sudha Bernstein M.A., L.I.C.S.W., M.S.W. - 11/11/2023 11:39 AM CST Sandra, this patient is interested in having a prescription sent to [facility] in [place], [place] for the following if appropriate after [...] if you have any questions. Thank you. A OPERATOR documented in this encounter Plan of Treatment Upcoming Encounters Date Type Department Care Team (Late st Contact Info) Description 02/04/2024 2:15 PM CDT Appointment Division of Gastroenterology in [place], [place] [address] [place] [phone] Katja Umana M.D. [address] [place] [phone] Hayden Smith M.D. [address] [place] [phone] 03/21/2024 1:00 PM CDT Virtual Visit Department of Nicotine Dependence, [facility], in [place], [place] [address] [place] [phone] documented as of this encounter Visit Diagnoses Not on filedocumented in this encounter Additional Health Concerns Assessment Noted Time PHQ-9 Depression Total Score: 3 10/20/19 24 7:30 AM A OPERATOR documented as of this encounter
--- OUTSIDE RECORDS SUMMARY | 2024-01-30 15:36 | XMS_ITS | Encounter Summary ---
Author Name Unknown Organization [facility] Address [address] [place] [address] Care Team Providers Care Rod Bending Machine Operator Name Role Phone Unavailable Primary Care Provider Unavailabl e Reason for Referral * Outpatient (Routine) - Closed Specialty Diagnoses / Procedures Referred By Contac t Referred To Contact Diagnoses Ascites Procedures US Paracentesis with Imaging Guidance Katja Umana M.D. 200 [place] [phone] [facility] Referral ID Status Reason Start Date Expiration Date Visits Re quested Visits Authorized [id number] Closed 10/18/2023 10/17/2024 1 1 ALL MECHANIC Reason for Visit * Auth/Cert (Routine) Specialty Diagnoses / Procedures Referred By Contac t Referred To Contact Diagnoses Ascites Procedures US PARACENTESIS WITH IMAGING GUIDANCE Referral ID Status Reason Start Date Expiration Date Visits Re quested Visits Authorized [id number] 1 1 Encounter Details Date Type Department Care Team (Latest Contact Info) Description 10/22/2023 7:27 AM DRYWALL MECHANIC - 10/22/2023 3:44 PM DRYWALL MECHANIC Hospital Encounter Department of Radiology, [facility], in [place], [place] [address] [place] [address] Katja Umana M.D. [address] [place] [phone] Ascites Discharge Disposition: Home or Self Care [...] Sex Assigned at Female 10/06/2023 10:50 AM DRYWALL MECHANIC Gender Identity Female 10/06/2023 10:50 AM DRYWALL MECHANIC Sexual Orientation Straight 10/06/2023 10 :50 AM DRYWALL MECHANIC documented as of this encounter Last Filed Vital Signs Vital Sign Reading Time Taken Comments Blood Pressure 116/58 10/22/2023 10:10 AM DRYWALL MECHANIC Pulse 102 10/22/2023 10:10 AM DRYWALL MECHANIC Temperature - - Respiratory Rate - - Oxygen Saturation 100% 10/22/2023 10:10 AM DRYWALL MECHANIC Inhaled Oxygen Concentration - - Weight - [...] Division of Gastroenterology in [place], [place] [address] [place] [phone] Katja Umana M.D. [address] [place] [phone] Hayden Smith M.D. [address] [place] [phone] 03/21/2024 1:00 PM CDT Virtual Visit Department of Nicotine Dependence, [facility], in [place], [place] [address] [place] [phone] documented as of this encounter Procedures Procedure Name Priority Date/Time Associated Diagnosis Comments US PARACENTESIS WITH IMAGING GUIDANCE RAD - Routine (most inpatients and all outpatients) 10/22/2023 10:18 AM DRYWALL MECHANIC Ascites BACTERIAL CULTURE, AEROBIC + SUSC Timed 10/22/2023 8:54 AM DRYWALL MECHANIC Ascites CELL COUNT AND DIFFERENTIAL, BF Timed 10/22/2023 8:54 AM DRYWALL MECHANIC Ascites documented in this encounter Results * US Paracentesis with Imaging Guidance (10/22/2023 10:18 AM DRYWALL MECHANIC) Anatomical Region Laterality Modality Abdomen, Ultrasound RST LOS, Ultrasound ARZ LOS, Procedure FLA LOS, Abdominal FLA LOS, Procedural, Procedural NWWI LOS N/A Ultrasound Impressions 10/22/2023 10:26 AM DRYWALL MECHANIC Ultrasound-guided diagnostic and therapeutic paracentesis. NR Narrative 10/22/2023 10:26 AM DRYWALL MECHANIC EXAM: US PARACENTESIS WITH IMAGING GUIDANCE PRE-PROCEDURE: [...] and Differential, Body Fluid (10/22/2023 8:54 AM DRYWALL MECHANIC) Fluid Type Peritoneal /Paracente sis 10/22/2023 10:30 AM DRYWALL MECHANIC DHPM Gross Appearance Serous 10/22/19 24 10:30 AM DRYWALL MECHANIC DHPM Total Nucleated Cells 171 /mcL 10/22/2023 10:30 AM DRYWALL MECHANIC DHPM Comment: ----REFERENCE VALUE---- Synovial: <150 /mcL Peritoneal: <500 /mcL Pleural: <500 /mcL Pericardial: <500 /mcL ----ADDITIONAL INFORMATION---- This test has been modified from the kiln charger's instructions. Its performance characteristics were determined by [facility] in a manner consistent with CLIA requirements. This test has not been cleared or approved by the U.S. Food and Drug Administration. Neutrophils 2 % 10/22/2023 11:42 AM DRYWALL MECHANIC DHPM Comment: ----REFERENCE VALUE---- Synovial: <25% Peritoneal: <25% Pleural: <25% Pericardial: <25% Lymphocytes 14 Synovial <75% % 10/22/2023 11:42 AM DRYWALL MECHANIC DHPM Monocytes/Macropha ges 70 Synovial <70% % 10/22/2023 11:42 AM DRYWALL MECHANIC DHPM Other Cells 14 % 10/22/2023 11:42 AM DRYWALL MECHANIC DHPM Comment: ----REFERENCE VALUE---- The reference range and other method performance specifications have not been established for this bodyfluid. The test result must be integrated into the clinical context for interpretation. Other Cells Are: See Comment 10/22/2023 11:42 AM DRYWALL MECHANIC PM Comment:Mesothelial cells Comment See Comment 10/22/2023 11:42 AM DRYWALL MECHANIC DHPM Comment:No blasts or maligna nt cells seen. Reviewed by: Jose 10/22/2023 11:42 AM DRYWALL MECHANIC DHPM Fluid (Peritoneal Fluid) 10/22/2023 8:54 AM DRYWALL MECHANIC Felipe Morales M.D. LAB BODY FLUIDS AND STOOLS ORDERABLES Performing Organization Address City/[facility] Co de Phone Number [facility] 200 [place] [address], [facility] 200 [place] [address] * Bacterial Culture, Aerobic + Susceptibility (10/22/2023 8:54 AM DRYWALL MECHANIC) Bacterial Culture, Aerobic + Susc No growth after 5 days of incubation. 10/27/2023 11:39 AM DRYWALL MECHANIC DT Fluid (Peritoneal Fluid) 10/22/2023 8:54 AM DRYWALL MECHANIC Narrative [facility] - 10/27/2023 11:39 AM DRYWALL MECHANIC Bacterial Culture: Placed in Bactec anaerobic bottle Bacterial Culture: Received Bactec aerobic bottle Felipe Morales M.D. LAB MICROBIOLOGY - GENERAL ORDERABLES Performing Organization Address [facility] Co de Phone Number [facility] 200 [place] [address], [facility] 200 [place] [address] documented in this encounter Visit Diagnoses Diagnosis [...] provider's discretion) New Bag 10/22/2023 9:07 AM DRYWALL MECHANIC 25 g albumin human 25 % injection [...] provider's discretion) New Bag 10/22/2023 9:31 AM DRYWALL MECHANIC 25 g lidocaine 10 mg/mL (1 %) injection (XYLOCAINE) As needed, Starting on Wed10/22/23 at 0858, Intra-Op Given 10/22/2023 8:58 AM DRYWALL MECHANIC 10 mL Right Upper Abdomen documented in this encounter Active and Recently Administered Medications Times are shown in DRYWALL MECHANIC. Scheduled Medication Order 10/20/2023 10/21/2023 10/22/2023 albumin [...] Total Score: 3 10/20/19 24 7:30 AM DRYWALL MECHANIC documented as of this encounter
--- OUTSIDE RECORDS SUMMARY | 2024-01-30 15:36 | XMS_ITS | Encounter Summary ---
Author Name Unknown Organization [facility] Address [address] [place] [address] Care Team Providers Care Marketing Communications Coordinator Name Role Phone Unavailable Primary Care Provider Unavailabl e Reason for Referral * Outpatient (Routine) - Closed Specialty Diagnoses / Procedures Referred By Contlulu t Referred To Contact Nicotine Dependence Sudha Bernstein M.A., DonnS.Dameon., C.T.T.S. [address] [place] [phone] [facility] Referral ID Status Reason Start Date Expiration Date Visits Re quested Visits Authorized [id number] Closed 10/28/2023 04/28/2025 1 1 Scheduling Instructions Please schedule this patient for a follow up phone visit. CLE MAINTENANCE SUPERVISOR Encounter Details Date Type Department Care Team (Late st Contact Info) Description 10/28/2023 Orders Only Department of Nicotine Dependence, [facility] in [place], [place] [address] [place] [phone] Sudha Bernstein M.A., Edwin.S.W., C.T.T.S. [address] [place] [phone] Social History Tobacco Use Types Packs/Day Years [...] living situation today? I have a [facility] place to live 10/15/2023 Sex and Gender Information Value Date Recorded Sex Assigned at Female 10/06/2023 10:50 AM VEHICLE MAINTENANCE SUPERVISOR Gender Identity Female 10/06/2023 10:50 AM VEHICLE MAINTENANCE SUPERVISOR Sexual Orientation Straight 10/06/2023 10 :50 AM VEHICLE MAINTENANCE SUPERVISOR documented as of this encounter Plan of Treatment Upcoming Encounters Date Type Department Care Team (Late st Contact Info) Description 02/04/2024 2:15 PM CDT Appointment Division of Gastroenterology in [place], [place] [address] [place] [address] Katja Umana M.D. [address] [place] [phone] Hayden Smith M.D. [address] [place] [phone] 03/21/2024 1:00 PM CDT Virtual Visit Department of Nicotine Dependence, [facility] in [place], [place] [address] [place] [phone] Scheduled Referrals Name Type Priority Associated Diagnoses Order Schedule Nicotine Dependence office visit (clinic) Outpatient Referral Routine Expected: 11/11/2023, Expires: 01/25/2025 documented as of this encounter Visit Diagnoses Not on filedocumented in this encounter Additional Health Concerns Assessment Noted Time PHQ-9 Depression Total Score: 3 10/20/19 24 7:30 AM VEHICLE MAINTENANCE SUPERVISOR documented as of this encounter
--- OUTSIDE RECORDS SUMMARY | 2024-01-30 15:36 | XMS_ITS | Encounter Summary ---
Author Name Unknown Organization [facility] Address [address] [place] [address] Care Team Providers Care Educational Coordinator Name Role Phone Unavailable Primary Care Provider Unavailabl e Encounter Details Date Type Department Care Team (Latest Contact Info) Description 11/01/2023 12:28 PM MAINFRAME CONSULTANT - 11/01/2023 11:59 PM MAINFRAME CONSULTANT Hospital Encounter Department of Laboratory Medicine in [address] [phone] Katja Umana M.D. [address] [place] [phone] Alcoholic Cirrhosis Of Liver With Ascites (HCC) Discharge Disposition: Home or Self Care Social History Tobacco Use Types Packs/Day Years Used Date Smoking Tobacco: Every Day Cigarettes 0.5 40 Smokeless Tobacco: Never Alcohol Use Standard Drinks/Week Comments Not Currently 0 (1 standard drink = 0.6 oz pur e alcohol) [facility] Utilities Answer Date Recorded In the past 12 months has [employer], gas, oil, or water [employer] threatened to shut off services in your [...] Date Recorded Employment status Working with temporary [employer] 10/15/2023 Housing Stability Answer Date Recorded What is your living situation today? I have a [facility] place to live 10/15/2023 Sex and Gender Information Value Date Recorded Sex Assigned at Female 10/06/2023 10:50 AM MAINFRAME CONSULTANT Gender Identity Female 10/06/2023 10:50 AM MAINFRAME CONSULTANT Sexual Orientation Straight 10/06/2023 10 :50 AM MAINFRAME CONSULTANT documented as of this encounter Medications at [...] PM CDT Appointment Division of Gastroenterology in [place], [place] [address] [place] [phone] Katja Umana M.D. [address] [place] [phone] Hayden Smith M.D. [address] [place] [phone] 03/21/2024 1:00 PM CDT Virtual Visit Department of Nicotine Dependence, [facility], in [place], [place] [address] [place] [phone] documented as of this encounter Procedures Procedure Name Priority Date/Time Associated Diagnosis Comments BASIC METABOLIC PANEL, S/P Routine 11/01/2023 12:49 PM MAINFRAME CONSULTANT Alcoholic Cirrhosis Of Liver With Ascites (HCC) documented in this encounter Results * (ABNORMAL) Basic Metabolic Panel (11/01/2023 12:49 PM MAINFRAME CONSULTANT) Potassium, P 4.1 3.6 - 5.2 mmol/L 11/01/2023 1:13 PM MAINFRAME CONSULTANT CNFL Sodium, P 128(L) 135 - 145 mmol/L 11/01/2023 1:13 PM MAINFRAME CONSULTANT CNFL Chloride, P 95(L) 98 - 107 mmol/L 11/01/2023 1:13 PM MAINFRAME CONSULTANT CNFL Bicarbonate, P 26 22 - 29 mmol/L 11/01/2023 1:13 PM MAINFRAME CONSULTANT CNFL Anion Gap, P 7 7 - 15 11/01/2023 1:13 PM MAINFRAME CONSULTANT CNFL BUN (Blood Urea Nitrogen), P 10 6 - 21 mg/dL 11/01/2023 1:13 PM MAINFRAME CONSULTANT CNFL Creatinine 0.42(L) 0.59 - 1.04 mg/dL 11/01/2023 1:13 PM MAINFRAME CONSULTANT CNFL Estimated GFR (eGFR) >90 >=60 mL/min/BSA 11/01/2023 1:13 PM MAINFRAME CONSULTANT CNFL Comment: Estimated GFR calculated using the 2020 CKD_EPI creatinine equation. Calcium, Total, P 8.3(L) 8.8 - 10.2 mg/dL 11/01/2023 1:13 PM MAINFRAME CONSULTANT CNFL Glucose, P 105 70 - 140 mg/dL 11/01/2023 1:13 PM MAINFRAME CONSULTANT CNFL Blood (Blood, Venous) 11/01/2023 12:49 PM MAINFRAME CONSULTANT 11/01/2023 12:54 PM MAINFRAME CONSULTANT Katja Umana M.D. LAB BLOOD ADD-ON Performing Organization Address City/State/[facility] Co de Phone Number [facility] [address] [place] [phone], [facility] CNFL [facility] in [address] [address] documented in this encounter Visit Diagnoses Diagnosis Alcoholic Cirrhosis Of Liver With Ascites (HCC) documented in this encounter Additional Health Concerns Assessment Noted Time PHQ-9 Depression Total Score: 3 10/20/19 24 7:30 AM MAINFRAME CONSULTANT documented as of this encounter
--- OUTSIDE RECORDS SUMMARY | 2024-01-30 15:36 | XMS_ITS | Encounter Summary ---
Author Name Unknown Organization [facility] Address [address] [place] [address] Care Team Providers Care Cull Grader Name Role Phone Unavailable Primary Care Provider Unavailabl e Reason for Referral * Outpatient (Routine) - Closed Specialty Diagnoses / Procedures Referred By Dotty oakes Referred To Contact Diagnoses Ascites Procedures US Paracentesis with Imaging Guidance Katja Umana M.D. [address] [place] [phone] [facility] Referral ID Status Reason Start Date Expiration Date Visits Re quested Visits Authorized [id number] Closed 10/18/2023 10/17/2024 1 1 OW GAUGE BRAKEMAN Encounter Details Date Type Department Care Team (Latest Contact Info) Description 10/18/2023 Clinical Communication Division of Gastroenterology in [place], [place] [address] [place] [phone] Katja Umana M.D. [address] [place] [phone] Social History Tobacco Use Types Packs/Day Years Used Date Smoking Tobacco: Every Day Cigarettes 0.5 40 Smokeless Tobacco: Never Alcohol Use Standard Drinks/Week Comments Not Currently 0 (1 standard drink = 0.6 oz pur e alcohol) [facility] Utilities Answer Date Recorded In [...] Sex Assigned at Female 10/06/2023 10:50 AM NARROW GAUGE BRAKEMAN Gender Identity Female 10/06/2023 10:50 AM NARROW GAUGE BRAKEMAN Sexual Orientation Straight 10/06/2023 10 :50 AM NARROW GAUGE BRAKEMAN documented as of this encounter Plan of Treatment Upcoming Encounters Date Type Department Care Team (Late st Contact Info) Description 02/04/2024 2:15 PM CDT Appointment Division of Gastroenterology in [place], [place] [address] [place] [phone] Katja Umana M.D. [address] [place] [phone] Hayden Smith M.D. [address] [place] [phone] 03/21/2024 1:00 PM CDT Virtual Visit Department of Nicotine Dependence, [facility], in [place], [place] [address] [place] [phone] documented as of this encounter Results * US Paracentesis with Imaging Guidance (10/22/2023 10:18 AM NARROW GAUGE BRAKEMAN) Anatomical Region Laterality Modality Abdomen, Ultrasound RST LOS, Ultrasound ARZ LOS, Procedure FLA LOS, Abdominal FLA LOS, Procedural, Procedural NWWI LOS N/A Ultrasound Impressions 10/22/2023 10:26 AM NARROW GAUGE BRAKEMAN Ultrasound-guided diagnostic and therapeutic paracentesis. NR Narrative 10/22/2023 10:26 AM NARROW GAUGE BRAKEMAN EXAM: US PARACENTESIS WITH IMAGING GUIDANCE PRE-PROCEDURE: [...]
--- OUTSIDE RECORDS SUMMARY | 2024-01-30 15:36 | XMS_ITS | Encounter Summary ---
Author Name Unknown Organization [facility] Address [address] [place] [address] Care Team Providers Care Electrical Manager Name Role Phone Unavailable Primary Care Provider Unavailabl e Reason for Referral * Outpatient (Routine) - Closed Specialty Diagnoses / Procedures Referred By Contact Referred To Contact Gastroenterology and Hepatology Katja Aguilera M.D. [address] [place] [phone] [facility] Referral ID Status Reason Start Date Expiration Date Visits Re quested Visits Authorized [id number] Closed 10/28/2023 04/28/2025 1 1 RING MECHANIC Encounter Details Date Type Department Care Team (Late st Contact Info) Description 10/28/2023 Orders Only [facility] in [place], [place] [address] [place] [phone] Katja Aguilera M.D. [address] [place] [phone] Alcoholic Cirrhosis Of Liver With Ascites (HCC) (Primary Dx) Social History Tobacco Use Types Packs/Day Years Used Date Smoking Tobacco: Every Day Cigarettes 0.5 40 Smokeless Tobacco: Never Alcohol Use Standard Drinks/Week Comments Not Currently 0 (1 standard drink = 0.6 oz pur e alcohol) [facility] Utilities Answer Date Recorded In the past 12 months has [employer], gas, oil, or water company threatened [...] your living situation today? I have a [facility] place to live 10/15/2023 Sex and Gender Information Value Date Recorded Sex Assigned at Female 10/06/2023 10:50 AM FLOORING MECHANIC Gender Identity Female 10/06/2023 10:50 AM FLOORING MECHANIC Sexual Orientation Straight 10/06/2023 10 :50 AM FLOORING MECHANIC documented as of this encounter Miscellaneous Notes * Addendum Note - Katja Aguilera M.D. - 10/28/2023 2:39 PM CSTAddended by: KATJA AGUILERA on: 10/28/2023 02:48 PM Modules accepted: Orders RING MECHANIC documented in this encounter Plan of Treatment Upcoming Encounters Date Type Department Care Team (Late st Contact Info) Description 02/04/2024 2:15 PM CDT Appointment Division of Gastroenterology in [place], [place] [address] [place] [phone] Katja Aguilera M.D. [address] [place] [phone] Hayden Smith M.D. [address] [place] [phone] 03/21/2024 1:00 PM CDT Virtual Visit Department of Nicotine Dependence, [facility] in [place], [place] [address] [place] [phone] Scheduled Referrals Name Type Priority Associated Diagnoses Order Schedule Gastroenterology and Hepatology office visit (clinic) Outpatient Referral Routine Expected: 12/14/2023, Expires: 01/25/2025 documented as of this encounter Results * (ABNORMAL) Basic Metabolic Panel (11/01/2023 12:49 PM FLOORING MECHANIC) Potassium, P 4.1 3.6 - 5.2 mmol/L 11/01/2023 1:13 PM FLOORING MECHANIC CNFL Sodium, P 128(L) 135 - 145 mmol/L 11/01/2023 1:13 PM FLOORING MECHANIC CNFL Chloride, P 95(L) 98 - 107 mmol/L 11/01/2023 1:13 PM FLOORING MECHANIC CNFL Bicarbonate, P 26 22 - 29 mmol/L 11/01/2023 1:13 PM FLOORING MECHANIC CNFL Anion Gap, P 7 7 - 15 11/01/2023 1:13 PM FLOORING MECHANIC CNFL BUN (Blood Urea Nitrogen), P 10 6 - 21 mg/dL 11/01/2023 1:13 PM FLOORING MECHANIC CNFL Creatinine 0.42(L) 0.59 - 1.04 mg/dL 11/01/2023 1:13 PM FLOORING MECHANIC CNFL Estimated GFR (eGFR) >90 >=60 mL/min/BSA 11/01/2023 1:13 PM FLOORING MECHANIC CNFL Comment: Estimated GFR calculated using the 2020 CKD_EPI creatinine equation. Calcium, Total, P 8.3(L) 8.8 - 10.2 mg/dL 11/01/2023 1:13 PM FLOORING MECHANIC CNFL Glucose, P 105 70 - 140 mg/dL 11/01/2023 1:13 PM FLOORING MECHANIC CNFL Blood (Blood, Venous) 11/01/2023 12:49 PM FLOORING MECHANIC 11/01/2023 12:54 PM FLOORING MECHANIC Katja Aguilera M.D. LAB BLOOD ADD-ON [facility] [address] [place] [address], [facility] CNFL [facility] [place] [address] documented in this encounter Visit Diagnoses Diagnosis Alcoholic Cirrhosis Of Liver With Ascites (HCC)- Primary documented in this encounter Additional Health Concerns Assessment Noted Time PHQ-9 Depression Total Score: 3 10/20/19 24 7:30 AM FLOORING MECHANIC documented as of this encounter
--- OUTSIDE RECORDS SUMMARY | 2024-01-30 15:36 | XMS_ITS | Encounter Summary ---
Author Name Unknown Organization [facility] Address [address] [place] [address] Care Team Providers Care Jig Maker Name Role Phone Unavailable Primary Care Provider Unavailabl e Encounter Details Date Type Department Care Team (Latest Contact Info) Description 10/27/2023 10:26 AM AERODYNAMICS ENGINEER - 10/27/2023 11:59 PM AERODYNAMICS ENGINEER Hospital Encounter Department of Laboratory Medicine in [address] [phone] Romana Diane M.D., Ph.D. [address] [place] [phone] Alcohol Moderate Or Severe Use Disorder (Dependence) [...] In the past 12 months has e [employer], gas, oil, or water [employer] threatened to shut off services in your [...] Date Recorded Employment status Working with temporary [employer] 10/15/2023 Housing Stability Answer Date Recorded What is your living situation today? [facility] 10/15/2023 Sex and Gender Information Value Date Recorded Sex Assigned at Female 10/06/2023 10:50 AM AERODYNAMICS ENGINEER Gender Identity Female 10/06/2023 10:50 AM AERODYNAMICS ENGINEER Sexual Orientation Straight 10/06/2023 10 :50 AM AERODYNAMICS ENGINEER documented as of this encounter Medications [...] PM CDT Appointment Division of Gastroenterology in [place], [place] [address] [place] [phone] Katja Umana M.D. [address] [place] [phone] Hayden Smith M.D. [address] [place] [phone] 03/21/2024 1:00 PM CDT Virtual Visit Department of Nicotine Dependence, [facility] in [place], [place] [address] [place] [phone] documented as of this encounter Procedures Procedure Name Priority Date/Time Associated Diagnosis Comments ETHYL GLUCURONIDE CONFIRMATION, U Routine 10/27/2023 10:38 AM AERODYNAMICS ENGINEER Alcohol Moderate Or Severe Use Disorder (Dependence) Uncomplicated (HCC) CONFIRMED DRUG ABUSE PANEL, U Routine 10/27/2023 10:38 AM AERODYNAMICS ENGINEER Alcohol Moderate Or Severe Use Disorder (Dependence) Uncomplicated (HCC) documented in this encounter Results * Drug Abuse Survey with Confirmation, Urine (10/27/2023 10:38 AM AERODYNAMICS ENGINEER) Alcohol Negative Cutoff: 10 mg/dL 10/28/2023 9:08 AM AERODYNAMICS ENGINEER SDS Amphetamines Negative Cutoff: 500 ng/mL 10/28/2023 9:08 AM AERODYNAMICS ENGINEER SDS Barbiturates Negative Cutoff: 200 ng/mL 10/28/2023 9:08 AM AERODYNAMICS ENGINEER SDS Benzodiazepines Negative Cutoff: 100 ng/mL 10/28/2023 9:08 AM AERODYNAMICS ENGINEER [facility] Cocaine Negative Cutoff: 150 ng/mL 10/28/2023 9:08 AM AERODYNAMICS ENGINEER [facility] Comment: This cocaine immunoassay targets benzoylecgonine the primary metabolite of cocaine. Opiates Negative Cutoff: 300 ng/mL 10/28/2023 9:08 AM AERODYNAMICS ENGINEER [facility] Phencyclidine Negative Cutoff: 25 ng/mL 10/28/2023 9:08 AM AERODYNAMICS ENGINEER [facility] Tetrahydrocannabinol Negative Cutoff: 50 ng/mL 10/28/2023 9:08 AM [facility] Comment: This immunoassay targets delta-9 tetrahydrocannabinol carboxylic acid (THC-COOH), a metabolite of delta-9 tetrahydrocannabinol the main psychoactive ingredient of marijuana. ----ADDITIONAL INFORMATION---- This report is intended for use in clinical monitoring or management of patients. ??It is not intended for use in employment-related testing. Urine (Urine, Midstream) 10/27/2023 10:38 AM AERODYNAMICS ENGINEER 10/27/2023 10:03 PM AERODYNAMICS ENGINEER Romana Diane M.D., Ph.D. LAB URI NE ORDERABLES Performing Organization Address [facility] Co de Phone Number [facility] [address] [place] [address] [facility] [address] [place] [address] [place] [address] * Ethyl Glucuronide Confirmation, Random, Urine (10/27/2023 [...] developed and its performance characteristics determined by [facility] in a manner consistent with CLIA requirements. This test has not been cleared or approved by the U.S. Food and Drug Administration. Urine (Urine, Midstream) 10/27/2023 10:38 AM AERODYNAMICS ENGINEER 10/27/2023 10:00 PM AERODYNAMICS ENGINEER Romana Diane M.D., Ph.D. LAB URI NE ORDERABLES Performing Organization Address [facility] Co de Phone Number [facility] [address] [place] [address] [facility] [address] [place] [address] [place] [address] documented in this encounter Visit Diagnoses Diagnosis Alcohol Moderate Or Severe Use Disorder (Dependence) Uncomplicated (HCC) documented in this encounter Additional Health Concerns Assessment Noted Time PHQ-9 Depression Total Score: 3 10/20/19 24 7:30 AM AERODYNAMICS ENGINEER documented as of this encounter
--- OUTSIDE RECORDS SUMMARY | 2024-01-30 15:36 | XMS_ITS ---
Author Name Unknown Organization [facility] Address [address] [place] [address] Care Team Providers Care Hotel Server Name Role Phone Elsewhere, Pcp Primary Care Provider Unavailabl e Transplant Episode Liver Candidate [facility] ([place], [place]) - [facility] Referred on 01/26/2024 Marked as Active on 01/26/2024 Liver CoordinatorTXP PRE LIVER NURSE TEAM RO[facility] Phone: N/A Fax: N/A Email: N/A Scores Score Value Updated Expires Exceptions/[place] sons CPRA Not available UNOS MELD Not available MELD (Calc) 24 12/09/2023 Care Team Name Role Phone Fax Email TXP PRE LIVER NURSE TEAM ROCH Liver Coordinator N/A N/A N/A Katja Umana M.D. Referring Provider [phone] [email or web address] Pre-Transplant Referred: 01/26/2024
--- OUTSIDE RECORDS SUMMARY | 2024-01-30 15:36 | XMS_ITS | Encounter Summary ---
Author Name Unknown Organization [facility] Address [address] [place] [address] Care Team Providers Care Manufacturing Teacher Name Role Phone Unavailable Primary Care Provider Unavailabl e Reason for Visit * Reason Onset Date Comments NDC Med Request 10/28/2023 Encounter Details Date Type Department Care Team (Latest Contact Info) Description 10/28/2023 Clinical Communication Department of Nicotine Dependence, [facility], in [place], [place] [address] [place] [address] Sudha Bernstein M.A., L.I.C.S.W., C.T.T.S. [address] [place] [phone] NDC Med Request Social History Tobacco Use Types Packs/Day Years Used Date Smoking Tobacco: Every Day Cigarettes 0.5 40 Smokeless Tobacco: Never Alcohol Use Standard Drinks/Week Comments Not Currently 0 (1 standard drink = 0.6 oz pur e alcohol) [facility] Utilities Answer Date Recorded In the past 12 months has [employer], gas, oil, or water [employer] threatened to shut off services in your [...] Date Recorded Employment status Working with temporary [employer] 10/15/2023 Housing Stability Answer Date Recorded What is your living situation today? I have a [facility] place to live 10/15/2023 Sex and Gender Information Value Date Recorded Sex Assigned at Female 10/06/2023 10:50 AM BED LABORER Gender Identity Female 10/06/2023 10:50 AM BED LABORER Sexual Orientation Straight 10/06/2023 10 :50 AM BED LABORER documented as of this encounter Miscellaneous Notes * Addendum Note - Raisa Hunt M.D. - 10/28/2023 5:01 PM CSTAddended by: RAISA HUNT on: 10/28/2023 05:01 PM Modules accepted: Orders LABORER * Telephone Encounter - Sudha Bernstein M.A., L.I.C.S.W., M.S.W. - 10/28/2023 11:[address] Hunt, this patient is interested in having a prescription for Varenicline and nicotine lozenges sent to [facility] in [place], [place] for smoking cessation if appropriate based on your review of her medical record. Varenicline Starter Pack with refills 2 mg nicotine lozenges Thank you. LABORER documented in this encounter Plan of Treatment Upcoming Encounters Date Type Department Care Team (Late st Contact Info) Description 02/04/2024 2:15 PM CDT Appointment Division of Gastroenterology in [place], [place] [address] [place] [phone] Katja Umana M.D. [address] [place] [phone] Hayden Smith M.D. [address] [place] [phone] 03/21/2024 1:00 PM CDT Virtual Visit Department of Nicotine Dependence, [facility], in [place], [place] [address] [place] [phone] documented as of this encounter Visit Diagnoses Diagnosis Nicotine Dependence Cigarettes- Primary documented in this encounter Additional Health Concerns Assessment Noted Time PHQ-9 Depression Total Score: 3 10/20/19 24 7:30 AM BED LABORER documented as of this encounter
--- OUTSIDE RECORDS SUMMARY | 2024-01-30 15:36 | XMS_ITS | Encounter Summary ---
Author Name Unknown Organization [facility] Address [address] [place] [address] Care Team Providers Care Test Desk Trouble Locator Name Role Phone Unavailable Primary Care Provider Unavailabl e Reason for Visit * Reason Comments Nicotine Dependence * Outpatient (Routine) - Closed Specialty Diagnoses / Procedures Referred By Contac t Referred To Contact Pulmonary Medicine / Nicotine Dependence Diagnoses Nicotine Dependence Cigarettes Romana Diane M.D., Ph.D. [address] [place] [phone] [facility] Referral ID Status Reason Start Date Expiration Date Visits Re quested Visits Authorized [id number] Closed 10/20/2023 04/20/2025 1 1 Encounter Details Date Type Department Care Team (Late st Contact Info) Description 10/28/2023 11:00 AM CHROME CLEANER Virtual Visit Department of Nicotine Dependence, [facility], in [place], [place] [address] [place] [phone] Romana Diane M.D., Ph.D. [address] [place] [phone] Sudha Bernstein M.A., L.I.C.S.W., C.T.T.S. [address] [place] [phone] Nicotine Dependence Cigarettes Social History Tobacco Use Types Packs/Day Years Used Date Smoking Tobacco: Every Day Cigarettes 0.5 40 Smokeless Tobacco: Never Alcohol Use Standard Drinks/Week Comments Not Currently 0 (1 standard drink = 0.6 oz pur e alcohol) [facility] Utilities Answer Date Recorded In [...] your living situation today? I have a [facility] place to live 10/15/2023 Sex and Gender Information Value Date Recorded Sex Assigned at Female 10/06/2023 10:50 AM CHROME CLEANER Gender Identity Female 10/06/2023 10:50 AM CHROME CLEANER Sexual Orientation Straight 10/06/2023 10 :50 AM CHROME CLEANER documented as of this encounter Consult Notes [...] Bernstein M.A., Sony, M.S.W. 10/28/2023 11:33 AM CHROME CLEANER ME CLEANER documented in this encounter Plan of Treatment Upcoming Encounters Date Type Department Care Team (Late st Contact Info) Description 02/04/2024 2:15 PM CDT Appointment Division of Gastroenterology in [place], [place] [address] [place] [phone] Katja Umana M.D. [address] [place] [phone] Hayden Smith M.D. [address] [place] [phone] 03/21/2024 1:00 PM CDT Virtual Visit Department of Nicotine Dependence, [facility], in [place], [place] [address] [place] [phone] documented as of this encounter Visit Diagnoses Diagnosis Nicotine Dependence Cigarettes documented in this encounter Additional Health Concerns Assessment Noted Time PHQ-9 Depression Total Score: 3 10/20/19 24 7:30 AM CHROME CLEANER documented as of this encounter
--- OUTSIDE RECORDS SUMMARY | 2024-01-30 15:36 | XMS_ITS | Encounter Summary ---
Author Name Unknown Organization [facility] Address [address] [place] [address] Care Team Providers Care Payable Manager Name Role Phone Unavailable Primary Care Provider Unavailabl e Encounter Details Date Type Department Care Team (Latest Contact Info) Description 10/27/2023 10:26 AM TRAVELING FREIGHT AGENT - 10/27/2023 11:59 PM TRAVELING FREIGHT AGENT Hospital Encounter Department of Laboratory Medicine in [address] [phone] Katja Umana M.D. [address] [place] [phone] Alcoholic Cirrhosis Of Liver With Ascites (HCC); Alcohol Moderate Or Severe Use Disorder (Dependence) Uncomplicated (HCC) Discharge Disposition: Home or Self Care Social History Tobacco Use Types Packs/Day Years Used Date Smoking Tobacco: Every Day Cigarettes 0.5 40 Smokeless Tobacco: Never Alcohol Use Standard Drinks/Week Comments Not Currently 0 (1 standard drink = 0.6 oz pur e alcohol) [facility] Utilities Answer Date Recorded In the past 12 months has e [employer], gas, oil, or water [employer] threatened to shut off services in your [...] Date Recorded Employment status Working with temporary [employer] 10/15/2023 Housing Stability Answer Date Recorded What is your living situation today? I have a [facility] place to live 10/15/2023 Sex and Gender Information Value Date Recorded Sex Assigned at Female 10/06/2023 10:50 AM TRAVELING FREIGHT AGENT Gender Identity Female 10/06/2023 10:50 AM TRAVELING FREIGHT AGENT Sexual Orientation Straight 10/06/2023 10 :50 AM TRAVELING FREIGHT AGENT documented as of this encounter Medications at [...] PM CDT Appointment Division of Gastroenterology in [place], [place] [address] [place] [phone] Katja Umana M.D. [address] [place] [phone] Hayden Smith M.D. [address] [place] [phone] 03/21/2024 1:00 PM CDT Virtual Visit Department of Nicotine Dependence, [facility] in [place], [place] [address] [place] [phone] documented as of this encounter Procedures Procedure Name Priority Date/Time Associated Diagnosis Comments PHOSPHATIDYLETHANOL CONFIRMATION, B Routine 10/27/2023 10:33 AM TRAVELING FREIGHT AGENT Alcohol Moderate Or Severe Use Disorder (Dependence) Uncomplicated (HCC) BASIC METABOLIC PANEL, S/P Routine 10/27 10:33 AM TRAVELING FREIGHT AGENT Alcoholic Cirrhosis Of Liver With Ascites (HCC) documented in this encounter Results * Phosphatidylethanol Confirmation (10/27/2023 10:33 AM TRAVELING FREIGHT AGENT) PEth 16:0/18:1 (POPEth) by LC-MS/MS <20 Cutoff: 10 ng/mL 10/29/2023 8:22 PM TRAVELING FREIGHT AGENT [facility] Comment: Testing performed at a x2 [...] its performance characteristics determined by [facility] in a manner consistent with CLIA requirements. This test has not been cleared or approved by the U.S. Food and Drug Administration. Blood (Blood, Venous) 10/27/2023 10:33 AM TRAVELING FREIGHT AGENT 10/27/2023 9:57 PM TRAVELING FREIGHT AGENT Romana Diane M.D., Ph.D. LAB BLO OD ADD-ON [facility] [address] [place] [address] [facility] [address] [place] [address] [place] [address] * (ABNORMAL) Basic Metabolic Panel (10/27/2023 10:33 AM TRAVELING FREIGHT AGENT) Potassium, P 3.6 3.6 - 5.2 mmol/L 10/27/2023 10:57 AM TRAVELING FREIGHT AGENT CNFL Sodium, P 125(L) 135 - 145 mmol/L 10/27/2023 10:57 AM TRAVELING FREIGHT AGENT CNFL Chloride, P 92(L) 98 - 107 mmol/L 10/27/2023 10:57 AM TRAVELING FREIGHT AGENT CNFL Bicarbonate, P 21(L) 22 - 29 mmol/L 10/27/2023 10:57 AM TRAVELING FREIGHT AGENT CNFL Anion Gap, P 12 7 - 15 10/27/2023 10:57 AM TRAVELING FREIGHT AGENT CNFL BUN (Blood Urea Nitrogen), P 10 6 - 21 mg/dL 10/27/2023 10:57 AM TRAVELING FREIGHT AGENT CNFL Creatinine 0.47(L) 0.59 - 1.04 mg/dL 10/27/2023 10:57 AM TRAVELING FREIGHT AGENT CNFL Estimated GFR (eGFR) >90 >=60 mL/min/BSA 10/27/2023 10:57 AM TRAVELING FREIGHT AGENT CNFL Comment: Estimated GFR calculated using the 2020 CKD_EPI creatinine equation. Calcium, Total, P 8.4(L) 8.8 - 10.2 mg/dL 10/27/2023 10:57 AM TRAVELING FREIGHT AGENT CNFL Glucose, P 93 70 - 140 mg/dL 10/27/2023 10:57 AM TRAVELING FREIGHT AGENT CNFL Blood (Blood, Venous) 10/27/2023 10:33 AM TRAVELING FREIGHT AGENT 10/27/2023 10:36 AM TRAVELING FREIGHT AGENT Katja Umana M.D. LAB BLOOD ADD-ON [facility] [address] [place] [address], [facility] CNFL [facility] [place] [address] documented in this encounter Visit Diagnoses Diagnosis Alcoholic Cirrhosis Of Liver With Ascites (HCC) Alcohol Moderate Or Severe Use Disorder (Dependence) Uncomplicated (HCC) documented in this encounter Additional Health Concerns Assessment Noted Time PHQ-9 Depression Total Score: 3 10/20/19 24 7:30 AM TRAVELING FREIGHT AGENT documented as of this encounter
--- OUTSIDE RECORDS SUMMARY | 2024-01-30 15:36 | XMS_ITS | Encounter Summary ---
Author Name Unknown Organization [facility] Address [address] [place] [address] Care Team Providers Care Clinical Medical Transcriptionist Name Role Phone Unavailable Primary Care Provider Unavailabl e Encounter Details Date Type Department Care Team (Latest Contact Info) Description 10/24/2023 Clinical Communication Division of Gastroenterology in [place], [place] [address] [place] [phone] Katja Aguilera M.D. [address] [place] [phone] Social History Tobacco Use Types Packs/Day Years [...] living situation today? I have a [facility] place to live 10/15/2023 Sex and Gender Information Value Date Recorded Sex Assigned at Female 10/06/2023 10:50 AM ATG JAVA DEVELOPER Gender Identity Female 10/06/2023 10:50 AM ATG JAVA DEVELOPER Sexual Orientation Straight 10/06/2023 10 :50 AM ATG JAVA DEVELOPER documented as of this encounter Progress Notes [...] I have sent an order to her [facility] Rajiv Taylor. She also reports ongoing difficulty with sleep, despite taking melatonin 10 mg nig htly. We will initiate trazodone at low dose, with 50 mg nightly. She was in agreement with the plan. JAVA DEVELOPER documented in this encounter Miscellaneous Notes * Addendum Note - Katja Aguilera M.D. - 10/24/2023 11:17 AM CSTAddended by: KATJA AGUILERA on: 10/24/2023 11:17 AM Modules accepted: Orders JAVA DEVELOPER documented in this encounter Plan of Treatment Upcoming Encounters Date Type Department Care Team (Late st Contact Info) Description 02/04/2024 2:15 PM CDT Appointment Division of Gastroenterology in [place], [place] [address] [place] [phone] Katja Aguilera M.D. [address] [place] [phone] Hayden Smith M.D. [address] [place] [phone] 03/21/2024 1:00 PM CDT Virtual Visit Department of Nicotine Dependence, [facility], in [place], [place] [address] [place] [phone] documented as of this encounter Results * (ABNORMAL) Basic Metabolic Panel (10/27/2023 10:33 AM ATG JAVA DEVELOPER) [facility] Potassium, P 3.6 3.6 - 5.2 mmol/L 10/27/2023 10:57 AM ATG JAVA DEVELOPER CNFL Sodium, P 125(L) 135 - 145 mmol/L 10/27/2023 10:57 AM ATG JAVA DEVELOPER CNFL Chloride, P 92(L) 98 - 107 mmol/L 10/27/2023 10:57 AM ATG JAVA DEVELOPER CNFL Bicarbonate, P 21(L) 22 - 29 mmol/L 10/27/2023 10:57 AM ATG JAVA DEVELOPER CNFL Anion Gap, P 12 7 - 15 10/27/2023 10:57 AM ATG JAVA DEVELOPER CNFL BUN (Blood Urea Nitrogen), P 10 6 - 21 mg/dL 10/27/2023 10:57 AM ATG JAVA DEVELOPER CNFL Creatinine 0.47(L) 0.59 - 1.04 mg/dL 10/27/2023 10:57 AM ATG JAVA DEVELOPER CNFL Estimated GFR (eGFR) >90 >=60 mL/min/BSA 10/27/2023 10:57 AM ATG JAVA DEVELOPER CNFL Comment: Estimated GFR calculated using the 2020 CKD_EPI creatinine equation. Calcium, Total, P 8.4(L) 8.8 - 10.2 mg/dL 10/27/2023 10:57 AM ATG JAVA DEVELOPER CNFL Glucose, P 93 70 - 140 mg/dL 10/27/2023 10:57 AM ATG JAVA DEVELOPER CNFL Blood (Blood, Venous) 10/27/2023 10:33 AM ATG JAVA DEVELOPER 10/27/2023 10:36 AM ATG JAVA DEVELOPER Katja Aguilera M.D. LAB BLOOD ADD-ON Performing Organization Address City/State/[facility] Co de Phone Number [facility] [address] [place] [phone], [facility] CNFL [facility] in [address] [address] documented in this encounter Visit Diagnoses Diagnosis Alcoholic Cirrhosis Of Liver With Ascites (HCC)- Primary documented in this encounter Additional Health Concerns Assessment Noted Time PHQ-9 Depression Total Score: 3 10/20/19 24 7:30 AM ATG JAVA DEVELOPER documented as of this encounter
--- OUTSIDE RECORDS SUMMARY | 2024-01-30 15:36 | XMS_ITS | Encounter Summary ---
Author Name Unknown Organization [facility] Address [address] [place] [address] Care Team Providers Care 411 Directory Assistance Operator Name Role Phone Unavailable Primary Care Provider Unavailabl e Reason for Referral * Outpatient (Routine) - Closed Specialty Diagnoses / Procedures Referred By Delgadoac t Referred To Contact Diagnoses Ascites Procedures US Paracentesis with Imaging Guidance Felipe Morales M.D. 200 [place] [phone] [facility] Referral ID Status Reason Start Date Expiration Date Visits Re quested Visits Authorized [id number] Closed 10/11/2023 10/10/2024 1 1 ION OPERATOR * Outpatient (Routine) - Closed Specialty Diagnoses / Procedures Referred By Dotty t Referred To Contact Diagnoses Ascites Procedures US Paracentesis with Imaging Guidance Felipe Morales M.D. 200 [place] [phone] [facility] Referral ID Status Reason Start Date Expiration Date Visits Re quested Visits Authorized [id number] Closed 10/11/2023 10/10/2024 1 1 ION OPERATOR Reason for Visit * Reason Onset Date Comments Hepatobiliary 10/08/2023 Ascites elijah Encounter Details Date Type Department Care Team (Latest Contact Info) Description 10/08/2023 Clinical Communication Division of Gastroenterology in [place], [place] [address] [place] [phone] Felipe Morales M.D. 200 [place] [phone] Hepatobiliary (Ascites elijah) Social History Tobacco Use Types Packs/Day Years Used Date Smoking Tobacco: Every Day Cigarettes 0.5 40 Smokeless Tobacco: Never Alcohol Use Standard Drinks/Week Comments Not Currently 0 (1 standard drink = 0.6 oz pur e alcohol) [facility] Utilities Answer Date Recorded In the past 12 months has e [employer], gas, oil, or water [employer] threatened to shut off services in your [...] Date Recorded Employment status Working with temporary [employer] 10/15/2023 Housing Stability Answer Date Recorded What is your living situation today? I have a [facility] place to live 10/15/2023 Sex and Gender Information Value Date Recorded Sex Assigned at Female 10/06/2023 10:50 AM SUCTION OPERATOR Gender Identity Female 10/06/2023 10:50 AM SUCTION OPERATOR Sexual Orientation Straight 10/06/2023 10 :50 AM SUCTION OPERATOR documented as of this encounter Plan of Treatment Upcoming Encounters Date Type Department Care Team (Late st Contact Info) Description 02/04/2024 2:15 PM CDT Appointment Division of Gastroenterology in [place], [place] [address] [place] [phone] Katja Umana M.D. [address] [place] [phone] Hayden Smith M.D. [address] [place] [phone] 03/21/2024 1:00 PM CDT Virtual Visit Department of Nicotine Dependence, [facility] in [place], [place] [address] [place] [phone] documented as of this encounter Results * US Paracentesis with Imaging Guidance (11/19/2023 11:55 AM SUCTION OPERATOR) Anatomical Region Laterality Modality Abdomen, Ultrasound RST LOS, Ultrasound ARZ LOS, Procedure FLA LOS, Abdominal FLA LOS, Procedural, Procedural NWWI LOS N/A Ultrasound Impressions 11/19/2023 12:26 PM SUCTION OPERATOR Ultrasound-guided paracentesis. EP Narrative 11/19/2023 12:26 PM SUCTION OPERATOR EXAM: US PARACENTESIS WITH IMAGING GUIDANCE [...] Paracentesis with Imaging Guidance (11/05/2023 11:25 AM SUCTION OPERATOR) Anatomical Region Laterality Modality Abdomen, Ultrasound RST LOS, Ultrasound ARZ LOS, Procedure FLA LOS, Abdominal FLA LOS, Procedural, Procedural NWWI LOS N/A Ultrasound Impressions 11/05/2023 11:28 AM SUCTION OPERATOR Ultrasound-guided diagnostic and therapeutic paracentesis. NR Narrative 11/05/2023 11:28 AM SUCTION OPERATOR EXAM: US PARACENTESIS WITH IMAGING GUIDANCE [...] lower quadrant peritoneal space. Needle size: 5 [place] centesis catheter. Volume aspirated: 6.8 liters aspirated, [...] lower quadrant peritoneal space. Needle size: 5 [place] centesis catheter. Volume aspirated: 6.8 liters aspirated, [...]
== END 2024-01-30 16:21 | disposition home or self-care (01) ==
PROVIDERS: Emergency Provider Family Medicine; PCP Family Medicine
DX: T81.89XA Other complications of procedures, not elsewhere classified, initial encounter (principal)
CPT/HCPCS: 99283

== ENCOUNTER 2024-01-31 13:16 | Outpatient (CLI) | payer BC, SELFPAY ==
--- OUTSIDE RECORDS SUMMARY | 2024-02-03 11:26 | XMS_ITS | Clinical Summary ---
Author Organization [facility] Address [place], [place] [address] Care Team Providers Care Slinger Sequins Name Role Phone Jared Delgado MD Primary Care Provider [phone] Allergies No known active allergies Medications Medication [...] Travel 4 1:10 PM CDT Anesthesia Event [facility] [address] [place] [address] Gabe Webber MD 4 12:12 PM CDT - 4 12:57 PM CDT Surgery [address] [place] [address] Janet Torres MBBS ESOPHAGOGASTRODUODENOSCOPY 4 8:52 PM CDT - 4 5:25 PM CDT Hospital Encounter [place] [address] [place] [address] s, U Hospitalist Ean Jett, MD Kim [...] - 145 mmol/L 12/06/2023 11:58 AM CDT [facility] Blood BLOOD SPECIMEN / Unknown Butterfly / Unknown 12/06/2023 11:25 AM CDT 12/06/2023 11:50 AM CDT Freddy Moctezuma MD CHEMISTRY Performing Organization Address City/[facility]/ZIP Co de Phone Number [facility] SENDOUT INTERNAL ZIP [phone] [place] [address] * (ABNORMAL) HEMOGLOBIN (12/06/2023 9:05 AM CDT) Only the most recent of6 resultswithin the time period is included. HEMOGLOBIN 7.6(L) 12.0 - 16.0 g/dL 12/06/2023 9:29 AM CDT [facility] MCV 94 80 - 100 fL 12/06/2023 9:29 AM CDT [facility] Blood BLOOD SPECIMEN / Unknown Venipuncture / Unknown 12/06/2023 9:05 AM CDT 12/06/2023 9:24 AM CDT Freddy Moctezuma MD HEMATOLOGY [facility] SENDOUT [place]NAL ZIP [address] [place] [address] [place] [address] * (ABNORMAL) BASIC METABOLIC PANEL (12/05/2023 1:42 PM CDT) Only the most recent of3 resultswithin the time period is included. SODIUM 122(L) 136 - 145 mmol/L 12/05/2023 2:37 PM CDT [facility] POTASSIUM 4.6 3.5 - 5.1 mmol/L 12/05/2023 2:37 PM T [facility] CHLORIDE 92(L) 98 - 107 mmol/L 12/05/2023 2:37 PM T [facility] CO2,TOTAL 20(L) 22 - 29 mmol/L 12/05/2023 2:37 PM T [facility] ANION GAP 10 5 - 18 12/05/2023 2:37 PM T [facility] GLUCOSE 97 70 - 99 mg/dL 12/05/2023 2:37 PM T [facility] CALCIUM 7.8(L) 8.8 - 10.2 mg/dL 12/05/2023 2:37 PM T [facility] BUN 11 8 - 23 mg/dL 12/05/2023 2:37 PM T [facility] CREATININE 0.50 0.50 - 0.90 mg/dL 12/05/2023 2:37 PM T [facility] BUN/CREAT RATIO 22(H) 10 - 20 2:37 PM T [facility] eGFR >90 >90 mL/min/1.7 3m2 12/05/2023 2:37 PM T [facility] Comment:As of 2021, eG FR is calculated by the CKD-EPI creatinine equation without race adjustment. ??eGFR can be influenced by muscle mass, exercise, and diet. ??The reported eGFR is an estimation only and is only applicable if the renal function is stable. Blood BLOOD SPECIMEN / Unknown Butterfly / Unknown 12/05/2023 1:42 PM CDT 12/05/2023 2:10 PM CDT Freddy Moctezuma MD CHEMISTRY [facility] SENDOUT [place] [address] [phone] [place] [address] * LC HEP A AB, TOTAL (12/04/2023 9:21 AM CDT) [facility] Hep A Ab Tot Negative Negative 12/08/2023 11:10 AM CDT [facility] ([facility]) Comment: Comment: The HAV total antibody assay detects both IgG and IgM but does not differentiate between them. A negative result suggests susceptibility to infection. A positive result could be due to vaccination, previously resolved infection or active infection. Testing for HAV IgM should be performed if active HAV infection is suspected. [facility] offers profiles that will automatically reflex positive HAV total antibody results to IgM (e.g., panel #[id number] HAV Antibody w/ Rfx). Blood BLOOD SPECIMEN / Unknown Venipuncture / Unknown 12/04/2023 9:21 AM CDT 12/04/2023 9:29 AM CDT Narrative [facility] ([facility]) - 12/08/2023 11:10 AM CDT Performed at: ??[address] ??[id number] Rf Manager: Carlos Piña MD, Phone: ??[phone] Janet DELGADO LABORATORY [facility] ([facility]) [address] [place] [address], * ANTI HBS QUANT AHS (12/04/2023 9:21 AM CDT) [facility] ANTI HBS QUANT <3.50 mIU/mL 12/04/2023 3:36 PM CDT [facility] Blood BLOOD SPECIMEN / Unknown Venipuncture / Unknown 12/04/2023 9:21 AM CDT 12/04/2023 9:29 AM CDT Narrative [facility] - 12/04/2023 3:36 PM CDT <8.5 [...] retesting. Janet JULIOBS SEND OUTS [facility] [address] [place] [address], * (ABNORMAL) PROTIME-INR (12/04/2023 9:21 AM CDT) INR 1.7(H) <1.3 12/04/2023 9:58 AM CDT [facility] PROTIME 18.5(H) 10.3 - 12.3 sec 12/04/2023 9:58 AM CDT [facility] Blood BLOOD SPECIMEN / Unknown Venipuncture / Unknown 12/04/2023 9:21 AM CDT 12/04/2023 9:30 AM CDT [facility] - 12/04/2023 9:58 AM CDT [...] is on UFH. Felipe Alvarez MD HEMATOLOGY [facility] SENDOUT INTERNAL ZIP [phone] [place] [address] * (ABNORMAL) AMMONIA (12/04/2023 9:21 AM CDT) AMMONIA 129(HH) 16 - 60 umol/L 12/04/2023 10:05 AM CDT [facility] Blood BLOOD SPECIMEN / Unknown Venipuncture / Unknown 12/04/2023 9:21 AM CDT 12/04/2023 9:28 AM CDT Narrative [facility] - 12/04/2023 10:05 AM CDT 1. ??Sulfasalazine and its metabolite Sulfapyridine at therapeutic concentrations may lead to falsely low results. 2. ??Temozolomide and its metabolite MTIC may lead to falsely elevated results, and its metabolite AIC may lead to falsely low results. Felipe Alvarez MD CHEMISTRY [facility] SENDOUT [place] [phone] [place] [address] * US PARACENTESIS W IMAGING (12/03/2023 4:51 PM CDT) Anatomical Region Laterality Modality CHEST, Lung, THORAX Ultrasound 12/03/2023 4:51 PM CDT Impressions 12/03/2023 4:56 PM CDT 1. ??Status post ultrasound-guided paracentesis. Reference CPT Code: 36973 Narrative 12/03/2023 4:56 PM CDT For Patients: As a result of the Cures Act, medical imaging exams and procedure reports are released immediately into your electronic medical record. You may view this report before your referring provider. If you have questions, please contact your health care provider. EXAM: 1. PARACENTESIS 2. ULTRASOUND GUIDANCE LOCATION: [facility] DATE: 12/03/2023 INDICATION: Ascites. PROCEDURE: Informed consent obtained. Time out performed. The abdomen was prepped and draped in a sterile fashion. 10 mL of 1% lidocaine was infused into local soft tissues. A 5 Romansh catheter system was introduced into the abdominal [...] EXAM: 1. PARACENTESIS 2. ULTRASOUND GUIDANCE LOCATION: [facility] DATE: 12/03/2023 INDICATION: Ascites. PROCEDURE: Informed consent obtained. Time out performed. The abdomen wasprepped and draped in a sterile fashion. 10 mL of 1% lidocaine was infusedinto local soft tissues. A 5 Romansh catheter system was introduced intothe abdominal ascites under ultrasound guidance. 7.1 liters of clear fluid were removed and sent to lab if requested. Patient tolerated procedure well. Ultrasound imaging was obtained and placed in the patient's permanentmedical record. IMPRESSION: 1. Status post ultrasound-guided paracentesis. Reference CPT Code: 38690 Janet DELGADO US * Body Fluid Culture and Stain (12/03/2023 4:20 PM CDT) CULTURE No Growth. 12/08/2023 7:52 AM CDT [facility] GRAM STAIN 2+ PMNs 12/08/2023 7:52 AM CDT [facility] GRAM STAIN No organisms seen 12/08/2023 7:52 AM CDT [facility] GRAM STAIN No Epithelial cells 12/08/2023 7:52 AM CDT [facility] GRAM STAIN No RBCs 12/08/2023 7:52 AM CDT [facility] GRAM STAIN Gram stain performed by [place], [place] 12/08/2023 7:52 AM CDT [facility] Body Fluid PERITONEAL FLUID SPECIMEN / Unknown Non-Blood / Unknown 12/03/2023 4:20 PM CDT 12/03/2023 4:40 PM CDT Janet DELGADO MICROBIOLOGY [facility] [address] [place] [address], [facility] SENDOUT INTERNAL ZIP [phone] [place] [address] * Body Fluid Cell Count and Differential (12/03/2023 4:20 PM CDT) BODY FLUID SOURCE Ascitic Fluid 12/03/2023 7:27 PM CDT [facility] BODY FLUID COLOR Yellow 12/03/2023 7:27 PM CDT [facility] BODY FLUID CLARITY Clear 12/03/2023 7:27 PM CDT [facility] TOTAL NUCLEATED CELLS, BF 85 /cu mm 12/03/2023 7:27 PM CDT [facility] RED BLOOD COUNT, BODY FLUID <2,000 /cu mm 12/03/2023 7:27 PM CDT [facility] % NEUTROPHILS, BODY FLUID 17 % 12/03/2023 7:27 PM CDT [facility] % LYMPHOCYTES, BODY FLUID 25 % 12/03/2023 7:27 PM CDT [facility] % MONO/MACRO, BODY FLUID 58 % 12/03/2023 7:27 PM CDT [facility] Body Fluid PERITONEAL FLUID SPECIMEN / Unknown Non-Blood / Unknown 12/03/2023 4:20 PM CDT 12/03/2023 4:40 PM CDT [facility] - 12/03/2023 7:27 PM CDT TO ORDER BODY FLUID CULTURES, USE; [id number] BODY FLUID CULTURE, STAIN Carissajorden Torres SANDY BODY FLUID [facility] SENDOUT INTERNAL ZIP [phone] [place] [address] * Protein, Body Fluid (12/03/2023 4:20 PM CDT) SPECIMEN SOURCE Peritoneal fluid 12/03/2023 5:26 PM CDT [facility] PROTEIN,BODY FLUID 0.6 g/dL 12/03/2023 5:26 PM CDT [facility] Comment:No Reference Range D efined. Body Fluid PERITONEAL FLUID SPECIMEN / Unknown Non-Blood / Unknown 12/03/2023 4:20 PM CDT 12/03/2023 4:40 PM CDT [facility] - 12/03/2023 5:26 PM CDT [...] & performance characteristics determined by [facility] [employer] [employer] [facility] [place], [place] consistent with CLIA requirements. Not cleared or approved by [place] FDA. Janet Torres NORI BODY FLUID [facility] SENDOUT INTERNAL ZIP [phone] [place] [address] * Albumin, Body Fluid (12/03/2023 4:20 PM CDT) SPECIMEN SOURCE Peritoneal fluid 12/03/2023 5:26 PM CDT [facility] ALBUMIN,BODY FLUID 0.3 g/dL 12/03/2023 5:26 PM CDT [facility] Comment:No Reference Range D efined. Body Fluid PERITONEAL FLUID SPECIMEN / Unknown Non-Blood / Unknown 12/03/2023 4:20 PM CDT 12/03/2023 4:40 PM CDT [facility] - 12/03/2023 5:26 PM CDT Peritoneal: ??SAAG >/= 1.1 g/dL indicates portal Hypertension. Pleural: ? SEAG > 1.2 g/dL is consistent with a transudative process and may ?be more accurate in patients receiving diuretic therapy. Test developed & performance characteristics determined by [facility], [place], [place] consistent with CLIA requirements. Not cleared or approved by [place] FDA. Janet JULIO BODY FLUID [facility] SENDOUT INTERNAL ZIP [phone] [place] [address] * FERRITIN (12/03/2023 2:47 PM CDT) FERRITIN 131.0 15.0 - 150.0 ng/mL 12/03/2023 9:31 PM CDT [facility] Blood BLOOD SPECIMEN / Unknown Venipuncture / Unknown 12/03/2023 2:47 PM CDT 12/03/2023 2:51 PM CDT Janet DELGADO CHEMISTRY [facility] [address] [place] [address], * PATH TISSUE EXAM (12/03/2023 1:23 PM CDT) Case Report Pathology Report ?Case: [id number] ? Authorizing Provider: ??Janet Torres, SANDY ?Collected: ? 12/03/2023 1323 ? Ordering Location: ? [facility] ?Received: ?12/03/2023 1527 ? Pathologist: ? Marco Tijerina MD ? Specimens: ?? A) - Duodenal Ulcer ? B) - Gastric Biopsy, random gastric ? 4 1:[address] [facility] Final Diagnosis A) DUODENUM, ULCER, [...] (Helicobacter immunohistochemistry negative) 4 1:56 PM CDT [facility] Comment B. Mild chronic inflammation in the stomach in the absence of Helicobacter often remains unexplained, but it could reflect prior or treated Helicobacter infection. The likelihood of histologically undetected Helicobacter is quite low in our opinion. 4 1:[address] [facility] Clinical Information Ms. Redmond is a 63 y.o. with hematemesis and iron deficiency anemia secondary to chronic blood loss. Upper GI endoscopy shows grade 1 esophageal varices, diffuse mild erythema throughout the stomach, and a superficial duodenal ulcer. 4 1:[address] [facility] Gross Description A) Received in [...] 12/03/2023 4:32 PM 4 1:[address] [facility] Microscopic Description The final diagnosis is based on microscopic examination of appropriate sections of all specimens. 4 1:[address] [facility] Additional Information Interpreted at [facility], Central Laboratory - [address], [place] [address] 1:56 PM CDT [facility] Biopsy (Duodenal Ulcer) 12/03/2023 1:23 PM CDT 12/03/2023 3:27 PM CDT Biopsy specimen (specimen) GASTRIC BIOPSY SPECIMEN / Unknown 12/03/2023 1:29 PM CDT 12/03/2023 3:27 PM CDT Janet DELGADO PATHOLOGY/CYTOLOGY [facility] [address] [place] [address], * ENDOSCOPY (12/03/2023 12:57 PM CDT) 12/03/2023 [...] candidate for conscious sedation. The endoscope [id number] was introduced through the mouth, and advanced [...] - 11.0 thou/cu mm 12/03/2023 5:[address] [facility] RED BLOOD COUNT 2.21(L) 4.00 - 5.20 mil/cu mm 12/03/2023 5:[address] [facility] HEMOGLOBIN 7.3(L) 12.0 - 16.0 g/dL 12/03/2023 5:[address] [facility] HEMATOCRIT 21.5(L) 33.0 - 51.0 % 12/03/2023 5:[address] [facility] MCV 97 80 - 100 fL 12/03/2023 5:[address] [facility] MCH 33.0 26.0 - 34.0 pg 12/03/2023 5:[address] [facility] MCHC 34.0 32.0 - 36.0 g/dL 12/03/2023 5:[address] [facility] RDW 17.2(H) 11.5 - 15.5 % 12/03/2023 5:[address] [facility] PLATELET COUNT 167 140 - 440 thou/cu mm 12/03/2023 5:[address] [facility] MPV 8.9 6.5 - 11.0 fL 12/03/2023 5:[address] [facility] NRBC 0.0 % 12/03/2023 5:[address] [facility] ABS NRBC 0.0 thou /cu mm 12/03/2023 5:12 AM T [facility] % NEUT 65.0 % 12/03/2023 5:12 AM T [facility] % LYMPH 25.6 % 12/03/2023 5:12 AM T [facility] % MONO 7.5 % 12/03/2023 5:12 AM T [facility] % EOS 1.0 % 12/03/2023 5:12 AM T [facility] % BASO 0.3 % 12/03/2023 5:12 AM CDT [facility] % IMMATURE GRAN (METAS,MYELOS,[place] OS) 0.6 % 12/03/2023 5:12 AM CDT [facility] ABSOLUTE NEUTROPHILS 5.7 1.7 - 7.0 thou/cu mm 12/03/2023 5:12 AM CDT [facility] ABSOLUTE LYMPHOCYTES 2.2 0.9 - 2.9 thou/cu mm 12/03/2023 5:12 AM CDT [facility] ABSOLUTE MONOCYTES 0.7 <0.9 thou/cu mm 12/03/2023 5:12 AM CDT [facility] ABSOLUTE EOSINOPHILS 0.1 <0.5 thou/cu mm 12/03/2023 5:12 AM CDT [facility] ABSOLUTE BASOPHILS 0.0 <0.3 thou/cu mm 12/03/2023 5:12 AM CDT [facility] ABSOLUTE IMMATURE GRANULOCYTES(MET ,MYELOS,PROS) 0.1 <0.3 thou/cu mm 12/03/2023 5:12 AM CDT [facility] Blood BLOOD SPECIMEN / Unknown Butterfly / Unknown 12/03/2023 3:34 AM CDT 12/03/2023 3:37 AM CDT Adama Jett MD HEMATOLOGY [facility] SENDOUT INTERNAL ZIP [phone] [place] [address] * (ABNORMAL) RED CELL MORPHOLOGY (12/03/2023 3:34 AM CDT) POLYCHROMASIA Slight 12/03/2023 5:12 AM CDT [facility] SCHISTOCYTES Few 12/03/2023 5:12 AM CDT [facility] RBC COMMENT Present(A) RBC morphology appears normal, RBC morphology within normal limits for newborns. 12/03/2023 5:12 AM CDT [facility] Blood BLOOD SPECIMEN / Unknown Butterfly / Unknown 12/03/2023 3:34 AM CDT 12/03/2023 3:37 AM CDT Adama Jett MD HEMATOLOGY [facility] SENDOUT [place]NAL ZIP [phone] [place] [address] * PLATELET ESTIMATE (12/03/2023 3:34 AM CDT) PLATELET ESTIMATE Adequate Adequate, No estimate 12/03/2023 5:12 AM CDT [facility] Blood BLOOD SPECIMEN / Unknown Butterfly / Unknown 12/03/2023 3:34 AM CDT 12/03/2023 3:37 AM CDT Adama Jett MD HEMATOLOGY [facility] SENDOUT [place]NAL ZIP [address] [address] [place] [address] * (ABNORMAL) IRON PLUS IRON BINDING CAP (12/03/2023 3:34 AM CDT) IRON 49 37 - 145 ug/dL 12/03/2023 3:46 PM CDT [facility] UIBC (UNSATURATED) 67(L) 112 - 347 ug/dL 12/03/2023 3:46 PM CDT [facility] IRON BINDING CAPACITY 116(L) 250 - 400 ug/dL 12/03/2023 3:46 PM CDT [facility] IRON,% SATURATION 42 14 - 50 % 12/03/2023 3:46 PM CDT [facility] Blood BLOOD SPECIMEN / Unknown Butterfly / Unknown 12/03/2023 3:34 AM CDT 12/03/2023 3:37 AM CDT Janet DELGADO CHEMISTRY [facility] SENDOUT INTERNAL ZIP [phone] [place] [address] * (ABNORMAL) MAGNESIUM (12/03/2023 3:34 AM CDT) MAGNESIUM 2.5(H) 1.6 - 2.4 mg/dL 12/03/2023 3:57 AM CDT [facility] Blood BLOOD SPECIMEN / Unknown Butterfly / Unknown 12/03/2023 3:34 AM CDT 12/03/2023 3:37 AM CDT Adama Jett MD CHEMISTRY [facility] SENDOUT INTERNAL Z[address] [phone] [place] [address] * SCAN-CARDIAC STRIP (12/02/2023 11:58 PM CDT) Scanner OTHER * (ABNORMAL) HEPATIC FUNCTION PANEL (12/02/2023 10:56 PM CDT) ALBUMIN 2.8(L) 4.0 - 4.9 g/dL 12/02/2023 11:22 PM CDT [facility] PROTEIN,TOTAL 6.5 6.0 - 8.0 g/dL 12/02/2023 11:22 PM CDT [facility] BILIRUBIN,TOTAL 3.0(H) 0.0 - 1.2 mg/dL 12/02/2023 11:22 PM CDT [facility] BILIRUBIN,DIRECT 1.3(H) 0.0 - 0.3 mg/dL 12/02/2023 11:22 PM CDT [facility] BILIRUBIN,INDIRE CT 1.7(H) 0.2 - 0.8 mg/dL 12/02/2023 11:22 PM CDT [facility] ALK PHOSPHATASE 114(H) 35 - 104 IU/L 12/02/2023 11:22 PM CDT [facility] ALT (SGPT) 31 10 - 35 IU/L 12/02/2023 11:22 PM CDT [facility] AST (SGOT) 87(H) 10 - 35 IU/L 12/02/2023 11:22 PM CDT [facility] Blood BLOOD SPECIMEN / Unknown Venipuncture / Unknown 12/02/2023 10:56 PM CDT 12/02/2023 11:01 PM CDT Adama Jett MD CHEMISTRY [facility] SENDOUT INTERNAL ZIP [phone] [place] [address] from Last 3 Months Advance Directives * Full Code (Latest Code Status on File) Date Activated Date Inactivated Comments 12/02/2023 9:46 PM 12/06/2023 7:35 PM Question Answer Comments Code Status Discussion: Reviewed Preferences Care Teams Slinger Sequins Relationship Specialty Start Date End Date Jared Delgado MD [address] [place] [phone] PCP - General Family Practice 12/04/23
--- OUTSIDE RECORDS SUMMARY | 2024-02-03 11:27 | XMS_ITS | Encounter Summary ---
Author Organization [facility] Address [address] [place] [address] Care Team Providers Care Cloth Sander Name Role Phone Elsewhere, Pcp Primary Care Provider Unavailabl e Reason for Referral * Outpatient (Routine) - Authorized Specialty Diagnoses / Procedures Referred By Contac t Referred To Contact Nicotine Dependence Sudha Bernstein M.A., Jerome., C.T.T.S. [address] [place] [phone] [facility] Referral ID Status Reason Start Date Expiration Date V isits Requested Visits Authorized [id number] Authorized 12/20/2023 06/20/2025 1 1 Scheduling Instructions Please schedule this patient for a follow up phone visit on March 21. No need to call it can just be added to my calendar. Encounter Details Date Type Department Care Team (Late st Contact Info) Description 12/20/2023 Orders Only Department of Nicotine Dependence, [facility], in [place], [place] [address] [place] [phone] Sudha Bernstein M.A., AvelIRodrigo.S.W., C.T.T.S. [address] [place] [phone] Social History Tobacco Use Types Packs/Day Years [...] Sex Assigned at Female 10/06/2023 10:50 AM TRANSPORT OPERATIONS INSPECTOR Gender Identity Female 10/06/2023 10:50 AM TRANSPORT OPERATIONS INSPECTOR Sexual Orientation Straight 10/06/2023 10 :50 AM TRANSPORT OPERATIONS INSPECTOR documented as of this encounter Plan of Treatment Scheduled Referrals Name Type Priority Associated Diagnoses Order Schedule Nicotine Dependence office visit (clinic) Outpatient Referral Routine Expected: 03/21/2024, Expires: 03/20/2025 documented as of this encounter Visit Diagnoses Not on filedocumented in this encounter Additional Health Concerns Assessment Noted Time PHQ-9 Depression Total Score: 3 10/20/19 24 7:30 AM TRANSPORT OPERATIONS INSPECTOR documented as of this encounter Care Teams Cloth Sander Relationship Specialty Start Date End Date Elsewhere, Pcp PCP - General Family Medicine 12/07/23 documented as of this encounter
--- OUTSIDE RECORDS SUMMARY | 2024-02-03 11:27 | XMS_ITS | Encounter Summary ---
Author Organization [facility] Address [address] [place] [address] Care Team Providers Care Binder Cutter Name Role Phone Elsewhere, Pcp Primary Care Provider Unavailabl e Encounter Details Date Type Department Care Team (Latest Contact Info) Description 12/21/2023 Clinical Communication [facility] in [place], [place] [address] [place] [phone] Katja Umana M.D. [address] [place] [phone] Social History Tobacco Use Types Packs/Day Years Used Date Smoking Tobacco: Every Day Cigarettes 0.5 41 Started: 02/11/1983 Passive Smoke Exposure: Never Smokeless Tobacco: Never Alcohol Use Standard Drinks/Week Comments Not Currently 0 (1 standard drink = 0.6 oz pur e alcohol) [facility] Utilities Answer Date Recorded In the past 12 months has e [employer], gas, oil, or water [email or web address] threatened to shut off services in your [...] Date Recorded Employment status Working with temporary [employer] 10/15/2023 Housing Stability Answer Date Recorded What is your living situation today? I have a [facility] place to live 10/15/2023 Sex and Gender Information Value Date Recorded Sex Assigned at Female 10/06/2023 10:50 AM CONVERTIBLE TOP INSTALLER Gender Identity Female 10/06/2023 10:50 AM CONVERTIBLE TOP INSTALLER Sexual Orientation Straight 10/06/2023 10 :50 AM CONVERTIBLE TOP INSTALLER documented as of this encounter Miscellaneous Notes * Telephone Encounter - Liana Estrada - 12/21/2023 10:54 AM CDT Left message for patient to call back on 12/20. documented in this encounter Plan of Treatment Not on file documented as of this encounter Visit Diagnoses Not on filedocumented in this encounter Additional Health Concerns Assessment Noted Time PHQ-9 Depression Total Score: 3 10/20/19 7:30 AM CONVERTIBLE TOP INSTALLER documented as of this encounter Care Teams Binder Cutter Relationship Specialty Start Date End Date Elsewhere, Pcp PCP - General Family Medicine 12/07/23 documented as of this encounter
--- OUTSIDE RECORDS SUMMARY | 2024-02-03 11:27 | XMS_ITS | Encounter Summary ---
Author Organization [facility] Address [address] [place] [address] Care Team Providers Care Curtain Hemmer Automatic Name Role Phone Elsewhere, Pcp Primary Care Provider Unavailabl e Reason for Referral * Outpatient (Routine) - Authorized Specialty Diagnoses / Procedures Referred By Contac t Referred To Contact Nutrition Diagnoses Alcoholic Cirrhosis Of Liver With Ascites (HCC) Sarcopenia Katja Umana M.D. 200 [place] [address] [facility] Referral ID Status Reason Start Date Expiration Date V isits Requested Visits Authorized [id number] Authorized 12/09/2023 06/09/2025 1 1 * Outpatient (Routine) - Authorized Specialty Diagnoses / Procedures Referred By Contac t Referred To Contact Diagnoses Alcoholic Cirrhosis Of Liver With Ascites (HCC) Ascites Procedures US Paracentesis with Imaging Guidance Katja Umana M.D. 200 [place] [address] [facility] Referral ID Status Reason Start Date Expiration Date V isits Requested Visits Authorized [id number] Authorized 12/09/2023 12/08/2024 8 8 Reason for Visit * Outpatient (Routine) - Closed Specialty Diagnoses / Procedures Referred By Contact Referred To Contact Gastroenterology and Hepatology Katja Umana M.D. 200 [place] [phone] [facility] Referral ID Status Reason Start Date Expiration Date Visits Re quested Visits Authorized [id number] Closed 10/28/2023 04/28/2025 1 1 Encounter Details Date Type Department Care Team (Latest Contact Info) Description 12/09/2023 4:30 PM CDT Office Visit [facility] Clinical Regeneration in [place], [place] [address] [place] [phone] Katja Umana M.D. [address] [place] [phone] Rose Palacios M.D. 200 [place] [phone] Alcoholic Cirrhosis Of Liver With Ascites (HCC) [...] In the past 12 months has e [employer], gas, oil, or water [employer] threatened to shut off services in your [...] your living situation today? I have a [facility] place to live 10/15/2023 Sex and Gender Information Value Date Recorded Sex Assigned at Female 10/06/2023 10:50 AM FLANGING OPERATOR Gender Identity Female 10/06/2023 10:50 AM FLANGING OPERATOR Sexual Orientation Straight 10/06/2023 10 :50 AM FLANGING OPERATOR documented as of this encounter Last [...] Mrs. Redmond was hospitalized locally from 12/02/2023-12/06/2023 ([facility]) for progressive fatigue and decreased exercise [...] last colonoscopy was performed in 2019 in [place]. I am not able to see this report. She is recommended to follow-up with her PCP for completing surveillance colonoscopy. If she is not able tocomplete this locally, then we can arrange for this to be done at [place]. All questions were answered. This plan will be discussed with Dr. Morales. BILLING: I personally spent over half of a total 35 minutes in counseling and discussion with the patient and coordination of care as described above. Signed: Katja Umana M.D. Gastroenterology and Hepatology Fellow Pager [phone] documented in this encounter Plan of Treatment Scheduled Referrals [...] CDT Katja Umana M.D. LAB BLOOD ADD-ON [facility] [address] [place] [address], [facility] 200 [place] [address] * (ABNORMAL) Comprehensive Metabolic Panel (12/09/2023 5:16 PM CDT) Potassium, S 5.0 3.6 - 5.2 mmol/L [...] CDT Katja Umana M.D. LAB BLOOD ADD-ON [facility] [address] [place] [address], [facility] [address] [place] [address] * (ABNORMAL) CBC with Differential, Blood (12/09/2023 [...] CDT Katja Umana M.D. LAB BLOOD ADD-ON [facility] [address] [place] [address], [facility] DTL [facility] [address] [place] [address] DHPM [facility] [address] [place] [address] documented in this encounter Visit Diagnoses Diagnosis Alcoholic Cirrhosis Of Liver With Ascites (HCC)- Primary Ascites Sarcopenia Alcoholic Cirrhosis Of Liver With Ascites (HCC) Ascites documented in this encounter Additional Health Concerns Assessment Noted Time PHQ-9 Depression Total Score: 3 10/20/19 24 7:30 AM FLANGING OPERATOR documented as of this encounter Care Teams Curtain Hemmer Automatic Relationship Specialty Start Date End Date Elsewhere, Pcp PCP - General Family Medicine 12/07/23 documented as of this encounter
--- OUTSIDE RECORDS SUMMARY | 2024-02-03 11:27 | XMS_ITS | Encounter Summary ---
Author Organization [facility] Address [address] [place] [address] Care Team Providers Care Product Development Engineer Name Role Phone Elsewhere, Pcp Primary Care Provider Unavailabl e Encounter Details Date Type Department Care Team (Latest Contact Info) Description 01/25/2024 Clinical Communication Division of Gastroenterology in [place], [place] [address] [place] [address] Katja Umana M.D. [address] [place] [phone] Social History Tobacco Use Types Packs/Day Years Used Date Smoking Tobacco: Every Day Cigarettes 0.5 41 Started: 02/11/1983 Passive Smoke Exposure: Never Smokeless Tobacco: Never Alcohol Use Standard Drinks/Week Comments Not Currently 0 (1 standard drink = 0.6 oz pur e alcohol) [facility] Utilities Answer Date Recorded In the past 12 months has [facility] [employer], gas, oil, or water [employer] threatened to shut off services in [...] Date Recorded Employment status Working with temporary [employer] tions 10/15/2023 Housing Stability Answer Date Recorded What is your living situation today? I have a [facility] place to live 10/15/2023 Sex and Gender Information Value Date Recorded Sex Assigned at Female 10/06/2023 10:50 AM CHEMICAL PUMPER Gender Identity Female 10/06/2023 10:50 AM CHEMICAL PUMPER Sexual Orientation Straight 10/06/2023 10 :50 AM CHEMICAL PUMPER documented as of this encounter Miscellaneous Notes * Telephone Encounter - Katja Umana M.D. - 02/01/2024 5:41 PM CDT I called Timo with documentation of call outlined in the progress note dated today. documented in this encounter Plan of Treatment Not on file documented as of this encounter Visit Diagnoses Not on filedocumented in this encounter Additional Health Concerns Assessment Noted Time PHQ-9 Depression Total Score: 3 10/20/19 7:30 AM CHEMICAL PUMPER documented as of this encounter Care Teams Product Development Engineer Relationship Specialty Start Date End Date Elsewhere, Pcp PCP - General Family Medicine 12/07/23 documented as of this encounter
--- OUTSIDE RECORDS SUMMARY | 2024-02-03 11:27 | XMS_ITS | Encounter Summary ---
Author Organization [facility] Address [address] [place] [address] Care Team Providers Care Enterprise Application Developer Name Role Phone Elsewhere, Pcp Primary Care Provider Unavailabl e Reason for Visit * Reason Onset Date Comments Pre-visit Intake 12/07/2023 Encounter Details Date Type Department Care Team (Latest Contact Info) Description 12/07/2023 1:45 PM CDT Clinical Communication Virtual Review in [place], [place] [address] [place] [phone] Pre-visit Intake Social History Tobacco Use Types Packs/Day Years Used Date Smoking Tobacco: Every Day Cigarettes 0.5 41 Started: 02/11/1983 Passive Smoke Exposure: Never Smokeless Tobacco: Never Alcohol Use Standard Drinks/Week Comments Not Currently 0 (1 standard drink = 0.6 oz pur e alcohol) [facility] Utilities Answer Date Recorded In the [...] Sex Assigned at Female 10/06/2023 10:50 AM LABORATORY SUPERVISOR Gender Identity Female 10/06/2023 10:50 AM LABORATORY SUPERVISOR Sexual Orientation Straight 10/06/2023 10 :50 AM LABORATORY SUPERVISOR documented as of this encounter Plan of Treatment Not on file documented as of this encounter Visit Diagnoses Not on filedocumented in this encounter Additional Health Concerns Assessment Noted Time PHQ-9 Depression Total Score: 3 10/20/19 7:30 AM LABORATORY SUPERVISOR documented as of this encounter Care Teams Enterprise Application Developer Relationship Specialty Start Date End Date Elsewhere, Pcp PCP - General Family Medicine 12/07/23 documented as of this encounter
--- OUTSIDE RECORDS SUMMARY | 2024-02-03 11:27 | XMS_ITS | Encounter Summary ---
Author Organization [facility] Address [address] [place] [address] Care Team Providers Care Materials Director Name Role Phone Elsewhere, Pcp Primary Care Provider Unavailabl e Reason for Visit * Reason Comments Nicotine Dependence * Outpatient (Routine) - Closed Specialty Diagnoses / Procedures Referred By Contac t Referred To Contact Nicotine Dependence Sudha Bernstein M.A., Yesy.I.C.S.W., C.T.T.S. [address] [place] [phone] [facility] Referral ID Status Reason Start Date Expiration Date Visits Re quested Visits Authorized [id number] Closed 11/18/2023 05/19/2025 1 1 Encounter Details Date Type Department Care Team (Late st Contact Info) Description 12/20/2023 2:00 PM CDT Virtual Visit Department of Nicotine Dependence, [facility], in [place], [place] [address] [place] [phone] Sudha Bernstein M.A., Yesy.I.C.S.W., C.T.T.S. [address] [place] [phone] Nicotine Dependence Cigarettes With Withdrawal (Primary Dx) Social History Tobacco Use Types Packs/Day Years Used Date Smoking Tobacco: Every Day Cigarettes 0.5 41 Started: 02/11/1983 Passive Smoke Exposure: Never Smokeless Tobacco: Never Alcohol Use Standard Drinks/Week Comments Not Currently 0 (1 standard drink = 0.6 oz pur e alcohol) [facility] Utilities Answer Date Recorded In the past 12 months has [employer], gas, oil, or water [employer] threatened to shut off services in your [...] Date Recorded Employment status Working with temporary [employer] tions 10/15/2023 Housing Stability Answer Date Recorded What is your living situation today? I have a [facility] place to live 10/15/2023 Sex and Gender Information Value Date Recorded Sex Assigned at Female 10/06/2023 10:50 AM ENGINEERING DEPARTMENT CHAIR Gender Identity Female 10/06/2023 10:50 AM ENGINEERING DEPARTMENT CHAIR Sexual Orientation Straight 10/06/2023 10 :50 AM ENGINEERING DEPARTMENT CHAIR documented as of this encounter Progress Notes [...] Total Score: 3 10/20/19 24 7:30 AM ENGINEERING DEPARTMENT CHAIR documented as of this encounter Care Teams Materials Director Relationship Specialty Start Date End Date Elsewhere, Pcp PCP - General Family Medicine 12/07/23 documented as of this encounter
--- OUTSIDE RECORDS SUMMARY | 2024-02-03 11:27 | XMS_ITS | Encounter Summary ---
Author Organization [facility] Address [address] [place] [address] Care Team Providers Care Children Counselor Name Role Phone Elsewhere, Pcp Primary Care Provider Unavailabl e Reason for Visit * Reason Onset Date Comments Scheduling 12/20/2023 Encounter Details Date Type Department Care Team (Latest Contact Info) Description 12/20/2023 Clinical Communication Division of Gastroenterology in [place], [place] [address] [place] [phone] Katja Umana M.D. [address] [place] [phone] Scheduling Social History Tobacco Use Types Packs/Day Years Used Date Smoking Tobacco: Every Day Cigarettes 0.5 41 Started: 02/11/1983 Passive Smoke Exposure: Never Smokeless Tobacco: Never Alcohol Use Standard Drinks/Week Comments Not Currently 0 (1 standard drink = 0.6 oz pur e alcohol) [facility] Utilities Answer Date Recorded In the past 12 months has e [employer], gas, oil, or water [employer] threatened to shut off services in your [...] Date Recorded Employment status Working with temporary [employer] 10/15/2023 Housing Stability Answer Date Recorded What is your living situation today? I have a [facility] place to live 10/15/2023 Sex and Gender Information Value Date Recorded Sex Assigned at Female 10/06/2023 10:50 AM PCA ASSISTED LIVING Gender Identity Female 10/06/2023 10:50 AM PCA ASSISTED LIVING Sexual Orientation Straight 10/06/2023 10 :50 AM PCA ASSISTED LIVING documented as of this encounter Plan of Treatment Not on file documented as of this encounter Visit Diagnoses Not on filedocumented in this encounter Additional Health Concerns Assessment Noted Time PHQ-9 Depression Total Score: 3 10/20/19 7:30 AM PCA ASSISTED LIVING documented as of this encounter Care Teams Children Counselor Relationship Specialty Start Date End Date Elsewhere, Pcp PCP - General Family Medicine 12/07/23 documented as of this encounter
--- OUTSIDE RECORDS SUMMARY | 2024-02-03 11:27 | XMS_ITS | Encounter Summary ---
Author Organization [facility] Address [address] [place] [address] Care Team Providers Care Clinical Trial Data Manager Name Role Phone Elsewhere, Pcp Primary Care Provider Unavailabl e Encounter Details Date Type Department Care Team (Latest Contact Info) Description 02/01/2024 Clinical Communication Division of Gastroenterology in [place], [place] [address] [place] [phone] Katja Umana M.D. [address] [place] [phone] Social History Tobacco Use Types Packs/Day Years Used Date Smoking Tobacco: Every Day Cigarettes 0.5 41 Started: 02/11/1983 Passive Smoke Exposure: Never Smokeless Tobacco: Never Alcohol Use Standard Drinks/Week Comments Not Currently 0 (1 standard drink = 0.6 oz pur e alcohol) [facility] Utilities Answer Date Recorded In the past 12 months has [facility] [email or web address], gas, oil, or water [employer] threatened to shut off services in your [...] Date Recorded Employment status Working with temporary [employer] tions 10/15/2023 Housing Stability Answer Date Recorded What is your living situation today? I have a [facility] place to live 10/15/2023 Sex and Gender Information Value Date Recorded Sex Assigned at Female 10/06/2023 10:50 AM FOREST ECOLOGIST Gender Identity Female 10/06/2023 10:50 AM FOREST ECOLOGIST Sexual Orientation Straight 10/06/2023 10 :50 AM FOREST ECOLOGIST documented as of this encounter Plan of Treatment Not on file documented as of this encounter Visit Diagnoses Not on filedocumented in this encounter Additional Health Concerns Assessment Noted Time PHQ-9 Depression Total Score: 3 10/20/19 7:30 AM FOREST ECOLOGIST documented as of this encounter Care Teams Clinical Trial Data Manager Relationship Specialty Start Date End Date Elsewhere, Pcp PCP - General Family Medicine 12/07/23 documented as of this encounter
--- OUTSIDE RECORDS SUMMARY | 2024-02-03 11:27 | XMS_ITS | Encounter Summary ---
Author Organization [facility] Address [address] [place] [address] Care Team Providers Care Armature Straightener Name Role Phone Elsewhere, Pcp Primary Care Provider Unavailabl e Reason for Visit * Outpatient (Routine) - Closed Specialty Diagnoses / Procedures Referred By Dotty t Referred To Contact Preventive Medicine Diagnoses Alcoholic Cirrhosis Of Liver With Ascites (HCC) Katja Umana M.D. [address] [place] [phone] [facility] Referral ID Status Reason Start Date Expiration Date Visits Re quested Visits Authorized [id number] Closed 10/15/2023 04/15/2025 1 1 Encounter Details Date Type Department Care Team (Latest Contact Info) Description 12/08/2023 10:30 AM CDT Comprehensive Visit Section of Infectious Diseases in [place], [place] [address] [place] [phone] Katja Umana M.D. [address] [place] [phone] Brianna Anglin APRN, C.N.P., D.N.P. [address] [place] [phone] Counseling And Review Vaccination Status (Primary [...] = 0.6 oz pur e alcohol) [facility] Utilities Answer Date Recorded In the [...] Sex Assigned at Female 10/06/2023 10:50 AM GLOBAL SALES EXECUTIVE Gender Identity Female 10/06/2023 10:50 AM GLOBAL SALES EXECUTIVE Sexual Orientation Straight 10/06/2023 10 :50 AM GLOBAL SALES EXECUTIVE documented as of this encounter Patient Instructions [...] CDT SUBJECTIVE REFERRAL SOURCE: Referred by Dr. Umaan. CHIEF COMPLAINT/REASON FOR CONSULT Immunization review and recommendations. HISTORY OF PRESENT ILLNESS Ms. Redmond is a 63 y.o. female who has a history of alcoholic cirrhosis of the liver with asciteswho is being followed by the Hepatobiliary team here at [facility]. They have requested for patient [...] Total Score: 3 10/20/19 24 7:30 AM GLOBAL SALES EXECUTIVE documented as of this encounter Care Teams Armature Straightener Relationship Specialty Start Date End Date Elsewhere, Pcp PCP - General Family Medicine 12/07/23 documented as of this encounter
--- OUTSIDE RECORDS SUMMARY | 2024-02-03 11:27 | XMS_ITS | Encounter Summary ---
Author Organization [facility] Address [address] [place] [address] Care Team Providers Care Global Marketing Operations Manager Name Role Phone Elsewhere, Pcp Primary Care Provider Unavailabl e Encounter Details Date Type Department Care Team (Late st Contact Info) Description 02/01/2024 Documentation Division of Gastroenterology in [place], [place] [address] [place] [phone] Katja Umana M.D. [address] [place] [phone] Social History Tobacco Use Types Packs/Day Years Used Date Smoking Tobacco: Every Day Cigarettes 0.5 41 Started: 02/11/1983 Passive Smoke Exposure: Never Smokeless Tobacco: Never Alcohol Use Standard Drinks/Week Comments Not Currently 0 (1 standard drink = 0.6 oz pur e alcohol) [facility] Utilities Answer Date Recorded In the past 12 months has [facility] [employer], gas, oil, or water [employer] threatened to shut off services in your [...] Sex Assigned at Female 10/06/2023 10:50 AM EMPLOYMENT SUPERVISOR Gender Identity Female 10/06/2023 10:50 AM EMPLOYMENT SUPERVISOR Sexual Orientation Straight 10/06/2023 10 :50 AM EMPLOYMENT SUPERVISOR documented as of this encounter Progress Notes * Katja Umana M.D. - 02/01/2024 5:28 PM CDT Brief Hepatobiliary Clinic Follow-up Note I received a portal message today from Mrs. Redmond's Timo (under Clinical Communication encounter dated 01/25/2024), reporting that Orens condition had declined dramatically and rapidly in the last 2 days with the plan to transition her to hospice care tomorrow. I called Mr. Redmond. He shared that they had travel to [place] a few weeks ago, and upon return she had slow decline with poor oral intake. She was only eating ice cream, with medications attemptedto be mixed in with ice cream. Yesterday morning, she had vomited her medications and appeared significantly unwell. She also sustained a fall at home. They presented to the hospital for evaluation. She had altered mental status and anemia. He described the need for a PICC line placement for transfusion and fluids. Overall, she appears emaciated and significantly malnourished. Multiple family members (up to 8) were present, including their daughters and the patient's sister. From care communications between Tmio and Mrs. Redmond's family members with the clinical team and social work, they addressed that Monique's preferences from a previous healthcare directive were to avoid aggressive interventions. Therefore, they have elected for transition to hospice care. She hadrecently required multiple community members for support to attend her health appointments and AA. He shared that they have seen in outpouring of support from the community. They feel at peace with the decision to transition to hospice. They will be transferring Monique tomorrow to [facility], at [facility] in [place], which is close to their home. 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 I expressed my sincere condolences and appreciation for the health update on Monique. Timo expressedhis appreciation for the care provided by the [facility] team, and also asked for the note of thanks to beshared with Dr. Morales. He had cancelled the scheduled appointments for the week. I will route a communication to the scheduling team to advise on cancelling any requested or active requests for appointment scheduling. Timo stated that he would call and send any additional updates as they come. documented in this encounter Plan of Treatment Not on file documented as of this encounter Visit Diagnoses Not on filedocumented in this encounter Additional Health Concerns Assessment Noted Time PHQ-9 Depression Total Score: 3 10/20/19 24 7:30 AM EMPLOYMENT SUPERVISOR documented as of this encounter Care Teams Global Marketing Operations Manager Relationship Specialty Start Date End Date Elsewhere, Pcp PCP - General Family Medicine 12/07/23 documented as of this encounter
--- OUTSIDE RECORDS SUMMARY | 2024-02-03 11:27 | XMS_ITS | Encounter Summary ---
Author Organization [facility] Address [address] [place] [address] Care Team Providers Care Diesel Dragline Operator Name Role Phone Elsewhere, Pcp Primary Care Provider Unavailabl e Encounter Details Date Type Department Care Team (Latest Contact Info) Description 01/14/2024 Clinical Communication Division of Gastroenterology in [place], [place] [address] [place] [phone] Katja Umana M.D. [address] [place] [phone] Social History Tobacco Use Types Packs/Day Years Used Date Smoking Tobacco: Every Day Cigarettes 0.5 41 Started: 02/11/1983 Passive Smoke Exposure: Never Smokeless Tobacco: Never Alcohol Use Standard Drinks/Week Comments Not Currently 0 (1 standard drink = 0.6 oz pur e alcohol) [facility] Utilities Answer Date Recorded In the past 12 months has [facility] [employer], gas, oil, or water [employer] threatened to shut off services in your [...] Date Recorded Employment status Working with temporary [employer] t[employer] 10/15/2023 Housing Stability Answer Date Recorded What is your living situation today? I have a [facility] place to live 10/15/2023 Sex and Gender Information Value Date Recorded Sex Assigned at Female 10/06/2023 10:[address] IN THEATER ATTENDANT Gender Identity Female 10/06/2023 10:[address] IN THEATER ATTENDANT Sexual Orientation Straight 10/06/2023 10 :[address] IN THEATER ATTENDANT documented as of this encounter Plan of Treatment Not on file documented as of this encounter Visit Diagnoses Not on filedocumented in this encounter Additional Health Concerns Assessment Noted Time PHQ-9 Depression Total Score: 3 10/20/19 7:[address] IN THEATER ATTENDANT documented as of this encounter Care Teams Diesel Dragline Operator Relationship Specialty Start Date End Date Elsewhere, Pcp PCP - General Family Medicine 12/07/23 documented as of this encounter
--- OUTSIDE RECORDS SUMMARY | 2024-02-03 11:27 | XMS_ITS | Encounter Summary ---
Author Organization [facility] Address [address] [place] [address] Care Team Providers Care Press Setup Operator Name Role Phone Elsewhere, Pcp Primary Care Provider Unavailabl e Reason for Visit * Reason Onset Date Comments Phone Contact 12/29/2023 Friends and fami ly authorization Encounter Details Date Type Department Care Team (Latest Contact Info) Description 12/29/2023 Clinical Communication Brent motta [facility] in [place], [place] [address] [place] [address] Katja Umana M.D. [address] [place] [address] Phone Contact (Friends and family authorization ) Social History Tobacco Use Types Packs/Day Years Used Date Smoking Tobacco: Every Day Cigarettes 0.5 41 Started: 02/11/1983 Passive Smoke Exposure: Never Smokeless Tobacco: Never Alcohol Use Standard Drinks/Week Comments Not Currently 0 (1 standard drink = 0.6 oz pur e alcohol) [facility] Utilities Answer Date Recorded In the past 12 months has e [employer], gas, oil, or water [employer] threatened to shut off services in your [...] Date Recorded Employment status Working with temporary [employer] 10/15/2023 Housing Stability Answer Date Recorded What is your living situation today? I have a [facility] place to live 10/15/2023 Sex and Gender Information Value Date Recorded Sex Assigned at Female 10/06/2023 10:50 AM PROCESS CONTROL ENGINEER Gender Identity Female 10/06/2023 10:50 AM PROCESS CONTROL ENGINEER Sexual Orientation Straight 10/06/2023 10 :50 AM PROCESS CONTROL ENGINEER documented as of this encounter Plan of Treatment Not on file documented as of this encounter Visit Diagnoses Not on filedocumented in this encounter Additional Health Concerns Assessment Noted Time PHQ-9 Depression Total Score: 3 10/20/19 7:30 AM PROCESS CONTROL ENGINEER documented as of this encounter Care Teams Press Setup Operator Relationship Specialty Start Date End Date Elsewhere, Pcp PCP - General Family Medicine 12/07/23 documented as of this encounter
--- OUTSIDE RECORDS SUMMARY | 2024-02-03 11:27 | XMS_ITS | Encounter Summary ---
Author Organization [facility] Address [address] [place] [phone] Care Team Providers Care Marketing Director Name Role Phone Elsewhere, Pcp Primary Care Provider Unavailabl e Reason for Referral * Outpatient (Routine) - Authorized Specialty Diagnoses / Procedures Referred By Dotty t Referred To Contact Diagnoses Ascites Procedures US Paracentesis with Imaging Guidance Katja Umana M.D. [address] [place] [phone] [facility] Referral ID Status Reason Start Date Expiration Date V isits Requested Visits Authorized [id number] Authorized 12/30/2023 12/29/2024 4 4 Encounter Details Date Type Department Care Team (Latest Contact Info) Description 12/28/2023 Clinical Communication Division of Gastroenterology in [place], [place] [address] [place] [phone] Katja Umana M.D. [address] [place] [phone] Social History Tobacco Use Types Packs/Day Years Used Date Smoking Tobacco: Every Day Cigarettes 0.5 41 Started: 02/11/1983 Passive Smoke Exposure: Never Smokeless Tobacco: Never Alcohol Use Standard Drinks/Week Comments Not Currently 0 (1 standard drink = 0.6 oz pur e alcohol) [facility] Utilities Answer Date Recorded In the past 12 months has [employer], gas, oil, or water company threatened [...] Date Recorded Employment status Working with temporary [employer] t[employer] 10/15/2023 Housing Stability Answer Date Recorded What is your living situation today? I have a [facility] place to live 10/15/2023 Sex and Gender Information Value Date Recorded Sex Assigned at Female 10/06/2023 10:50 AM MORTGAGE LOAN UNDERWRITER Gender Identity Female 10/06/2023 10:50 AM MORTGAGE LOAN UNDERWRITER Sexual Orientation Straight 10/06/2023 10 :50 AM MORTGAGE LOAN UNDERWRITER documented as of this encounter Plan of Treatment Scheduled Orders Name Type Priority Associated Diagnoses Order Schedule US Paracentesis with Imaging Guidance Imaging RAD - Routine (most inpatients and all outpatients) Ascites Expected: 01/13/2024, Expires: 03/30/2025 documented as of this encounter Visit Diagnoses Diagnosis Ascites- Primary documented in this encounter Additional Health Concerns Assessment Noted Time PHQ-9 Depression Total Score: 3 10/20/19 24 7:30 AM MORTGAGE LOAN UNDERWRITER documented as of this encounter Care Teams Marketing Director Relationship Specialty Start Date End Date Elsewhere, Pcp PCP - General Family Medicine 12/07/23 documented as of this encounter
--- OUTSIDE RECORDS SUMMARY | 2024-02-03 11:27 | XMS_ITS | Clinical Summary ---
Author Organization [facility] Address [address] [place] [address] Care Team Providers Care Predatory Animal Hunter Name Role Phone Elsewhere, Pcp Primary Care Provider Unavailabl e Source Comments Patient records contain information from all sites at [facility]. For routine questions regarding patient records, call [phone] during business hours, M-F 8:00 AM - 5:00 PM Central Time. Record requests for emergency care only can be directed to [phone] at any time.[facility] Allergies No known active allergies Medications [...] Encounters Date Type Department Care Team Description 02/01/2024 Clinical Communication Division of Gastroenterology in [place], [place] [address] [place] [address] Katja Umana M.D. 02/01/2024 Documentation Division of Gastroenterology in [place], [place] [address] [place] [phone] Katja Umana M.D. 01/25/2024 Clinical Communication Division of Gastroenterology in [place], [place] [address] [place] [phone] Katja Umana M.D. 01/14/2024 Clinical Communication Division of Gastroenterology in [place], [place] [address] [place] [phone] Katja Umana M.D. 12/29/2023 Clinical Communication [facility] [place], [place] [address] [place] [address] Katja Umana M.D. Phone Contact (Friends and family authorization ) 12/28/2023 Clinical Communication Division of Gastroenterology in [place], [place] [address] [place] [phone] Katja Umana M.D. 12/21/2023 Clinical Communication [facility] in [place], [place] [address] [place] [address] Katja Umana M.D. 12/20/2023 2:00 PM CDT Virtual Visit Department of Nicotine Dependence, [facility], in [place], [place] [address] [place] [address] Sudha Bernstein M.A., Yesy.MadeleineSPetrosW., C.T.T.S. Nicotine Dependence Cigarettes With Withdrawal (Primary Dx) 12/20/2023 Orders Only Department of Nicotine Dependence, [facility] in [place], [place] [address] [place] [address] Sudha Bernstein M.A., Yesy.MadeleineS.W., C.T.T.S. 12/20/2023 Clinical Communication Division of Gastroenterology in [place], [place] [address] [place] [phone] Katja Umana M.D. Scheduling 12/16/2023 9:34 AM CDT - 12/16/2023 11:22 AM CDT Hospital Encounter Department of Radiology, [facility] in [place], [place] [address] [place] [phone] Katja Umana M.D. Alcoholic Cirrhosis Of Liver With Ascites (HCC); Ascites Discharge Disposition: Home or Self Care 12/09/2023 4:30 PM CDT [facility] [place], [place] [address] [place] [phone] Katja Umana M.D. Olson, Jody C, M.D. Alcoholic Cirrhosis Of Liver With Ascites (HCC) (Primary Dx); Ascites; Sarcopenia 12/08/2023 10:30 AM CDT Comprehensive Visit Section of Infectious Diseases in [place], [place] [address] [place] [phone] Katja Umana M.D. Mackey, Callie A, APRN, C.N.P., D.N.P. 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 Order Request 11/19/2023 10:08 AM SALES MERCHANDISE ASSOCIATE - 11/19/2023 12:51 PM SALES MERCHANDISE ASSOCIATE Hospital Encounter Department of Radiology, [facility] in [place], [place] [address] [place] [phone] Felipe Morales M.D. Ascites Discharge Disposition: Home or Self Care 11/18/2023 11:00 AM SALES MERCHANDISE ASSOCIATE Virtual Visit Department of Nicotine Dependence, [facility], [place] [address] [place] [phone] Sudha Bernstein M.A., L.I.C.S.W., C.T.T.S. Nicotine Dependence Cigarettes With Withdrawal (Primary Dx) 11/18/2023 Orders Only Department of Nicotine Dependence, [place], [place] [address] [place] [phone] Sudha Bernstein M.A., Yesy.I.C.S.W., C.T.T.S. 11/11/2023 11:00 AM SALES MERCHANDISE ASSOCIATE Virtual Visit Department of Nicotine Dependence, [facility] in [place], [place] [address] [place] [phone] Sudha Bernstein M.A., L.I.C.S.W., C.T.T.S. Nicotine Dependence Cigarettes With Withdrawal (Primary Dx) 11/11/2023 Orders Only Department of Nicotine Dependence, [place], [place] [address] [place] [phone] Sudha Bernstein M.A., L.I.C.S.W., C.T.T.S. 11/11/2023 Clinical Communication Department of Nicotine Dependence, [facility], in [place], [place] [address] [place] [address] Sudha Berntsein M.A., L.I.C.S.W., C.T.T.S. [facility] Med Request 11/05/2023 9:29 AM SALES MERCHANDISE ASSOCIATE - 11/05/2023 12:20 PM SALES MERCHANDISE ASSOCIATE Hospital Encounter Department of Radiology, [facility] in [place], [place] [address] [place] [address] Felipe Morales M.D. Ascites Discharge Disposition: Home [...] oz pur e alcohol) [facility] Utilities Answer Date Recorded In the past 12 months has Natanael Ulien, gas, oil, or water [employer] threatened to shut off services in your [...] Date Recorded Employment status Working with temporary [employer] 10/15/2023 Housing Stability Answer Date Recorded What is your living situation today? I have a [facility] place to live 10/15/2023 Sex and Gender Information Value Date Recorded Sex Assigned at Female 10/06/2023 10:50 AM SALES MERCHANDISE ASSOCIATE Gender Identity Female 10/06/2023 10:50 AM SALES MERCHANDISE ASSOCIATE Sexual Orientation Straight 10/06/2023 10 :50 AM SALES MERCHANDISE ASSOCIATE Last Filed Vital Signs Vital Sign Reading Time Taken Comments Blood Pressure 101/47 12/16/2023 10:52 AM CDT Pulse 77 12/16/2023 10:30 AM CDT Temperature 34.7 ??C (94.5 ??F) 12/09/2023 4:21 PM CD T Respiratory Rate 24 10/08/2023 4:16 PM SALES MERCHANDISE ASSOCIATE Oxygen Saturation 100% 12/16/2023 10:30 AM CDT Inhaled Oxygen Concentration - - Weight 51.2 kg (112 lb 14 oz) 12/09/2023 4:21 PM CDT Height 166.6 cm (5' 5.59) 12/09/2023 4:21 PM CD T Body Mass Index 18.45 12/09/2023 4:21 PM CDT Plan of Treatment Health Maintenance Due [...] and all outpatients) 11/19/2023 11:55 AM SALES MERCHANDISE ASSOCIATE Ascites CELL COUNT AND DIFFERENTIAL, BF Timed 11/19/2023 10:50 AM SALES MERCHANDISE ASSOCIATE Ascites BACTERIAL CULTURE, AEROBIC + SUSC Timed 11/19/2023 10:50 AM SALES MERCHANDISE ASSOCIATE Ascites US PARACENTESIS WITH IMAGING GUIDANCE RAD - Routine (most inpatients and all outpatients) 11/05/2023 11:25 AM SALES MERCHANDISE ASSOCIATE Ascites CELL COUNT AND DIFFERENTIAL, BF Timed 11/05/2023 10:07 AM SALES MERCHANDISE ASSOCIATE Ascites BACTERIAL CULTURE, AEROBIC + SUSC Timed 11/05/2023 10:07 AM SALES MERCHANDISE ASSOCIATE Ascites HCV AB SCRN W/REFLEX TO HCV PCR, S Routine 10/06/2023 12:17 PM SALES MERCHANDISE ASSOCIATE Alcoholic Cirrhosis Of Liver With Ascites (HCC) COLONOSCOPY Routine 10/10/2015 2:45 PM SALES MERCHANDISE ASSOCIATE from Last 3 Months or Most Recently [...] IMPRESSION: Ultrasound-guided paracentesis. EP Katja Umana M.D. [facility] US PROCEDURES * [...] CDT Katja Umana M.D. LAB BLOOD ADD-ON [facility] [address] [place] [address], [facility] [address] [place] [address] * (ABNORMAL) CBC with Differential, Blood (12/09/2023 [...] CDT Katja Umana M.D. LAB BLOOD ADD-ON [facility] [address] [place] [address], [facility] DTL [facility] [address] [place] [address] * (ABNORMAL) Comprehensive Metabolic Panel (12/09/2023 5:16 PM CDT) [facility] Potassium, S 5.0 3.6 - 5.2 mmol/L [...] CDT Katja Umana M.D. LAB BLOOD ADD-ON [facility] [address] [place] [address], [facility] [address] [place] [address] * Bacterial Culture, Aerobic + Susceptibility (11/19/2023 10:50 AM SALES MERCHANDISE ASSOCIATE) Only the most recent of2 resultswithin the time period is included. Bacterial Culture, Aerobic + Susc No growth after 5 days of incubation. 11/24/2023 8:27 AM CDT DTL Fluid (Peritoneal Fluid) 11/19/2023 10:50 AM SALES MERCHANDISE ASSOCIATE Narrative [facility] - 11/24/2023 8:27 AM CDT Bacterial Culture: Received Bactec aerobic and Bactec anaerobic bottles Felipe Morales M.D. LAB MICROBIOLOGY - GENERAL ORDERABLES [facility] [address] [place] [address], [facility] DTL [facility] [address] [place] [address] * Cell Count and Differential, Body Fluid (11/19/2023 10:50 AM SALES MERCHANDISE ASSOCIATE) Only the most recent of2 resultswithin the time period is included. Fluid Type Peritoneal /Paracente sis 11/19/2023 12:39 PM SALES MERCHANDISE ASSOCIATE [facility] Gross Appearance Serous 11/19/19 24 12:39 PM SALES MERCHANDISE ASSOCIATE [facility] Total Nucleated Cells 201 /mcL 11/19/2023 12:39 PM SALES MERCHANDISE ASSOCIATE [facility] Comment: ----REFERENCE VALUE---- Synovial: <150 /mcL Peritoneal: <500 /mcL Pleural: <500 /mcL Pericardial: <500 /mcL ----ADDITIONAL INFORMATION---- This test has been modified from the station agent's instructions. Its performance characteristics were determined by [facility] in a manner consistent with CLIA requirements. This test has not been cleared or approved by the U.S. Food and Drug Administration. Neutrophils 20 % 11/19/2023 1:42 PM SALES MERCHANDISE ASSOCIATE [facility] Comment: ----REFERENCE VALUE---- Synovial: <25% Peritoneal: <25% Pleural: <25% Pericardial: <25% Lymphocytes 16 Synovial <75% % 11/19/2023 1:42 PM SALES MERCHANDISE ASSOCIATE [facility] Monocytes/Macropha ges 60 Synovial <70% % 11/19/2023 1:42 PM SALES MERCHANDISE ASSOCIATE [facility] Other Cells 4 % 11/19/2023 1:42 PM SALES MERCHANDISE ASSOCIATE [facility] Comment: ----REFERENCE VALUE---- The reference range and other method performance specifications have not been established for this bodyfluid. The test result must be integrated into the clinical context for interpretation. Other Cells Are: See Comment 11/19/2023 1:42 PM SALES MERCHANDISE ASSOCIATE [facility] Comment:Mesothelial cells Comment See Comment 11/19/2023 1:42 PM SALES MERCHANDISE ASSOCIATE [facility] Comment:No blasts or maligna nt cells seen. Reviewed by: Jose 11/19/2023 1:42 PM SALES MERCHANDISE ASSOCIATE [facility] Fluid (Peritoneal Fluid) 11/19/2023 10:50 AM SALES MERCHANDISE ASSOCIATE Felipe Morales M.D. LAB BODY FLUIDS AND STOOLS ORDERABLES [facility] [address] [place] [address], [facility] [address] [place] [address] * HCV Ab Scrn w/Reflex to HCV PCR, Serum (10/06/2023 12:17 PM SALES MERCHANDISE ASSOCIATE) HCV Ab Screen, S Negative Negative 10/06/2023 9:12 PM SALES MERCHANDISE ASSOCIATE [facility] Comment:Xsgout-un-wghieh rat io is <1.00. Blood (Blood, Venous) 10/06/2023 12:17 PM SALES MERCHANDISE ASSOCIATE 10/06/2023 3:57 PM SALES MERCHANDISE ASSOCIATE Katja Umana M.D. LAB MICROBIOLOGY - B LOOD ORDERABLES Performing Organization Address City/[facility]/ZIP Co de Phone Number [facility] [address] [place] [address] [facility] [address] [place] [address] * Colonoscopy (10/10/2015 2:45 PM SALES MERCHANDISE ASSOCIATE) 10/10/2015 2:45 PM SALES MERCHANDISE ASSOCIATE Tanner Calderón GI PROCEDURE [facility] [address] [place] [address], [facility] from Last 3 Months or Most Recently Relevant to Health Maintenance Care Teams Predatory Animal Hunter Relationship Specialty Start Date End Date Elsewhere, Pcp PCP - General Family Medicine 12/07/23
--- OUTSIDE RECORDS SUMMARY | 2024-02-03 11:27 | XMS_ITS | Encounter Summary ---
Author Organization [facility] Address [address] [place] [phone] Care Team Providers Care Network Manager Name Role Phone Elsewhere, Pcp Primary Care Provider Unavailabl e Reason for Referral * Outpatient (Routine) - Authorized Specialty Diagnoses / Procedures Referred By Contac t Referred To Contact Diagnoses Alcoholic Cirrhosis Of Liver With Ascites (HCC) Ascites Procedures US Paracentesis with Imaging Guidance Katja Umana M.D. [address] [place] [phone] [facility] Referral ID Status Reason Start Date Expiration Date V isits Requested Visits Authorized [id number] Authorized 12/09/2023 12/08/2024 8 8 Reason for Visit * Outpatient (Routine) - Authorized Specialty Diagnoses / Procedures Referred By Dotty oakes Referred To Contact Diagnoses Alcoholic Cirrhosis Of Liver With Ascites (HCC) Ascites Procedures US Paracentesis with Imaging Guidance Katja Umana M.D. [address] [place] [phone] [facility] Referral ID Status Reason Start Date Expiration Date V isits Requested Visits Authorized [id number] Authorized 12/09/2023 12/08/2024 8 8 Encounter Details Date Type Department Care Team (Latest Contact Info) Description 12/16/2023 9:34 AM CDT - 12/16/2023 11:22 AM CDT Hospital Encounter Department of Radiology, [facility], in [place], [place] [address] [place] [address] Katja Umana M.D. 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 I have a [facility] place to live 10/15/2023 Sex and Gender Information Value Date Recorded Sex Assigned at Female 10/06/2023 10:50 AM MILL TENDER WARM UP Gender Identity Female 10/06/2023 10:50 AM MILL TENDER WARM UP Sexual Orientation Straight 10/06/2023 10 :50 AM MILL TENDER WARM UP documented as of this encounter Last Filed [...] be sent through Care Everywhere. * Paracentesis ([place]) documented in this encounter Medications at Time [...] on file documented as of this encounter Procedures Procedure [...] EP Katja Umana M.D. IMG US PROCEDURES documented [...] Total Score: 3 10/20/19 24 7:30 AM MILL TENDER WARM UP documented as of this encounter Care Teams Network Manager Relationship Specialty Start Date End Date Elsewhere, Pcp PCP - General Family Medicine 12/07/23 documented as of this encounter
--- OUTSIDE RECORDS SUMMARY | 2024-02-03 11:27 | XMS_ITS | Referral Summary ---
Author Organization [facility] Address [address] [place] [address] Care Team Providers Care Sticker On Name Role Phone Elsewhere, Pcp Primary Care Provider Unavailabl e Source Comments Patient records contain information from all sites at [facility]. For routine questions regarding patient records, call [phone] during business hours, M-F 8:00 AM - 5:00 PM Central Time. Record requests for emergency care only can be directed to [phone] at any time.[facility] Encounters Date Type Department Care Team Description 02/01/2024 Clinical Communication Division of Gastroenterology in [place], [place] [address] [place] [phone] Katja Umana M.D. 02/01/2024 Documentation Division of Gastroenterology in [place], [place] [address] [place] [phone] Katja Umana M.D. 01/25/2024 Clinical Communication Division of Gastroenterology in [place], [place] [address] [place] [phone] Katja Umana M.D. 01/14/2024 Clinical Communication Division of Gastroenterology in [place], [place] [address] [place] [phone] Katja Umana M.D. 12/29/2023 Clinical Communication [facility] [place], [place] [address] [place] [phone] Katja Umana M.D. Phone Contact (Friends and family authorization ) 12/28/2023 Clinical Communication Division of Gastroenterology in [place], [place] [address] [place] [address] Katja Umana M.D. 12/21/2023 Clinical [facility] in [place], [place] [address] [place] [phone] Katja Umana M.D. 12/20/2023 Orders Only Department of Nicotine Dependence, [facility] in [place], [place] [address] [place] [phone] Sudha Bernstein M.A., Yesy.KarrieC.S.W., C.T.T.S. 12/20/2023 Clinical Communication Division of Gastroenterology in [address] [phone] Katja Umana M.D. Scheduling 12/20/2023 2:00 PM CDT Virtual Visit Department of Nicotine Dependence, [facility] in [place], [place] [address] [place] [phone] Sudha Bernstein M.A., Yesy.I.C.S.W., C.T.T.S. Nicotine Dependence Cigarettes With Withdrawal (Primary Dx) 12/16/2023 9:34 AM CDT - 12/16/2023 11:22 AM CDT Hospital Encounter Department of Radiology, [facility] in [place], [place] [address] [place] [phone] Katja Umana M.D. Alcoholic Cirrhosis Of Liver With Ascites (HCC); Ascites Discharge Disposition: Home or Self Care 12/09/2023 4:30 PM CDT Office Visit Brent Alvarenga [facility] for Transplantation and Clinical Regeneration in [place], [place] [address] [place] [phone] Katja Umana M.D. Olson, Jody C, M.D. Alcoholic Cirrhosis Of Liver With Ascites (HCC) (Primary Dx); Ascites; Sarcopenia 12/08/2023 10:30 AM CDT Comprehensive Visit Section of Infectious Diseases in [place], [place] [address] [place] [phone] Katja Umana M.D. Brianna Anglin APRN, C.N.P., D.N.P. 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 Order Request 11/19/2023 10:08 AM SHINGLE GRADER - 11/19/2023 12:51 PM SHINGLE GRADER Hospital Encounter Department of Radiology, [address] [phone] Felipe Morales M.D. Ascites Discharge Disposition: Home or Self Care 11/18/2023 Orders Only Department of Nicotine Dependence, [address] [phone] Sudha Bernstein M.A., L.I.C.S.W., C.T.T.S. 11/18/2023 11:00 AM SHINGLE GRADER Virtual Visit Department of Nicotine Dependence, [address] [phone] Sudha Bernstein M.A., L.I.C.S.W., C.T.T.S. Nicotine Dependence Cigarettes With Withdrawal (Primary Dx) 11/11/2023 Orders Only Department of Nicotine Dependence, [address] [phone] Sudha Bernstein M.A., L.I.C.S.W., C.T.T.S. 11/11/2023 Clinical Communication Department of Nicotine Dependence, [facility] in [address] [phone] Sudha Bernstein M.A., Jerome., C.T.T.S. NDC Med Request 11/11/2023 11:00 AM SHINGLE GRADER Virtual Visit Department of Nicotine Dependence, [facility], in [place], [place] [address] [place] [address] Sudha Bernstein M.A., Jerome., C.T.T.S. Nicotine Dependence Cigarettes With Withdrawal (Primary Dx) 11/05/2023 9:29 AM SHINGLE GRADER - 11/05/2023 12:20 PM SHINGLE GRADER Hospital Encounter Department of Radiology, [facility] in [place], [place] [address] [place] [address] Felipe Morales M.D. Ascites Discharge Disposition: Home [...] In the past 12 months has e [employer], gas, oil, or water Nic[employer] threatened to shut off services in your [...] Date Recorded Employment status Working with temporary [employer] 10/15/2023 Housing Stability Answer Date Recorded What is your living situation today? I have a [facility] to live 10/15/2023 Sex and Gender Information Value Date Recorded Sex Assigned at Female 10/06/2023 10:50 AM SHINGLE GRADER Gender Identity Female 10/06/2023 10:50 AM SHINGLE GRADER Sexual Orientation Straight 10/06/2023 10 :50 AM SHINGLE GRADER Last Filed Vital Signs Vital Sign Reading Time Taken Comments Blood Pressure 101/47 12/16/2023 10:52 AM CDT Pulse 77 12/16/2023 10:30 AM CDT Temperature 34.7 ??C (94.5 ??F) 12/09/2023 4:21 PM CD T Respiratory Rate 24 10/08/2023 4:16 PM SHINGLE GRADER Oxygen Saturation 100% 12/16/2023 10:30 AM CDT Inhaled Oxygen Concentration - - Weight 51.2 kg (112 lb 14 oz) 12/09/2023 4:21 PM CDT Height 166.6 cm (5' 5.59) 12/09/2023 4:21 PM CD T Body Mass Index 18.45 12/09/2023 4:21 PM CDT Plan of Treatment Not on file Procedures Procedure Name Priority Date/Time Associated Diagnosis [...] inpatients and all outpatients) 11/19/2023 11:55 AM SHINGLE GRADER Ascites CELL COUNT AND DIFFERENTIAL, BF Timed 11/19/2023 10:50 AM SHINGLE GRADER Ascites BACTERIAL CULTURE, AEROBIC + SUSC Timed 11/19/2023 10:50 AM SHINGLE GRADER Ascites US PARACENTESIS WITH IMAGING GUIDANCE RAD - Routine (most inpatients and all outpatients) 11/05/2023 11:25 AM SHINGLE GRADER Ascites CELL COUNT AND DIFFERENTIAL, BF Timed 11/05/2023 10:07 AM SHINGLE GRADER Ascites BACTERIAL CULTURE, AEROBIC + SUSC Timed 11/05/2023 10:07 AM SHINGLE GRADER Ascites HCV AB SCRN W/REFLEX TO HCV PCR, S Routine 10/06/2023 12:17 PM SHINGLE GRADER Alcoholic Cirrhosis Of Liver With Ascites (HCC) COLONOSCOPY Routine 10/10/2015 2:45 PM SHINGLE GRADER from Last 3 Months or Most Recently [...] CDT Katja Umana M.D. [place] [address], [facility] [address] [address] * (ABNORMAL) CBC with Differential, Blood (12/09/2023 [...] M.D. LAB BLOOD ADD-ON [facility] [address] [place] [address], [facility] DTL [facility] [address] [place], [place] [id number] [place] [address] [address] [place] [address] * (ABNORMAL) Comprehensive Metabolic Panel (12/09/2023 5:16 PM CDT) [facility] Potassium, S 5.0 3.6 - 5.2 [...] M.D. LAB BLOOD ADD-ON [facility] [address] [place] [address], [place] DTL [facility] [address] [place] [address] * Bacterial Culture, Aerobic + Susceptibility (11/19/2023 10:50 AM SHINGLE GRADER) Only the most recent of2 resultswithin the time period is included. Bacterial Culture, Aerobic + Susc No growth after 5 days of incubation. 11/24/2023 8:27 AM CDT DTL Fluid (Peritoneal Fluid) 11/19/2023 10:50 AM SHINGLE GRADER Narrative [facility] - 11/24/2023 8:27 AM CDT Bacterial Culture: Received Bactec aerobic and Bactec anaerobic bottles Felipe Morales M.D. LAB MICROBIOLOGY - GENERAL ORDERABLES [facility] [address] [place] [address], [facility] [address] [place] [address] * Cell Count and Differential, Body Fluid (11/19/2023 10:50 AM SHINGLE GRADER) Only the most recent of2 resultswithin the time period is included. Fluid Type Peritoneal /Paracente sis 11/19/2023 12:39 PM SHINGLE GRADER [facility] Gross Appearance Serous 11/19/19 24 12:39 PM SHINGLE GRADER [facility] Total Nucleated Cells 201 /mcL 11/19/2023 12:39 PM SHINGLE GRADER [facility] Comment: ----REFERENCE VALUE---- Synovial: <150 /mcL Peritoneal: <500 /mcL Pleural: <500 /mcL Pericardial: <500 /mcL ----ADDITIONAL INFORMATION---- This test has been modified from the metal bed assembler's instructions. Its performance characteristics were determined by [facility] in a manner consistent with CLIA requirements. This test has not been cleared or approved by the U.S. Food and Drug Administration. Neutrophils 20 % 11/19/2023 1:42 PM SHINGLE GRADER [facility] Comment: ----REFERENCE VALUE---- Synovial: <25% Peritoneal: <25% Pleural: <25% Pericardial: <25% Lymphocytes 16 Synovial <75% % 11/19/2023 1:42 PM SHINGLE GRADER [facility] Monocytes/Macropha ges 60 Synovial <70% % 11/19/2023 1:42 PM SHINGLE GRADER [facility] Other Cells 4 % 11/19/2023 1:42 PM SHINGLE GRADER [facility] Comment: ----REFERENCE VALUE---- The reference range and other method performance specifications have not been established for this bodyfluid. The test result must be integrated into the clinical context for interpretation. Other Cells Are: See Comment 11/19/2023 1:42 PM SHINGLE GRADER [facility] Comment:Mesothelial cells Comment See Comment 11/19/2023 1:42 PM SHINGLE GRADER [facility] Comment:No blasts or maligna nt cells seen. Reviewed by: Jose 11/19/2023 1:42 PM SHINGLE GRADER [facility] Fluid (Peritoneal Fluid) 11/19/2023 10:50 AM SHINGLE GRADER Felipe Morales M.D. LAB BODY FLUIDS AND STOOLS ORDERABLES Performing Organization Address City/[facility] Co de Phone Number [facility] [address] [place] [address], [facility] [address] [place] [address] * HCV Ab Scrn w/Reflex to HCV PCR, Serum (10/06/2023 12:17 PM SHINGLE GRADER) Pathologist [facility] HCV Ab Screen, S Negative Negative 10/06/2023 9:12 PM SHINGLE GRADER [facility] Comment:Ysznzp-ad-yruqya rat io is <1.00. Blood (Blood, Venous) 10/06/2023 12:17 PM SHINGLE GRADER 10/06/2023 3:57 PM SHINGLE GRADER Katja Umana M.D. LAB MICROBIOLOGY - B LOOD ORDERABLES Performing Organization Address City/[facility]/ZIP Co de Phone Number [facility] [address] [place] [address] [facility] [address] [place] [address] * Colonoscopy (10/10/2015 2:45 PM SHINGLE GRADER) 10/10/2015 2:45 PM SHINGLE GRADER Tanner Calderón GI PROCEDURE ORDE АНДРЕЙ [facility] [address] from Last 3 Months or Most Recently Relevant to Health Maintenance Care Teams Sticker On Relationship Specialty Start Date End Date Elsewhere, Pcp PCP - General Family Medicine 12/07/23
--- OUTSIDE RECORDS SUMMARY | 2024-02-03 11:27 | XMS_ITS ---
Author Organization [facility] Address [address] [place] [address] Care Team Providers Care Field Coil Winder Name Role Phone Unavailable Unavailable Unavailable Surgery Details Not on file Complications Check Surgery Details section. Procedure Estimated Blood Loss Check Surgery Details section. Procedure Findings Check Surgery Details section. Procedure Specimens Taken Check Surgery Details section.
--- OUTSIDE RECORDS SUMMARY | 2024-02-03 11:27 | XMS_ITS | Encounter Summary ---
Author Organization [facility] Address [address] [place] [address] Care Team Providers Care Family Service Assistant Name Role Phone Elsewhere, Pcp Primary Care Provider Unavailabl e Reason for Referral * Outpatient (Routine) - Authorized Specialty Diagnoses / Procedures Referred By Dotty t Referred To Contact Diagnoses Ascites Procedures US Paracentesis with Imaging Guidance Katja Umana M.D. [address] [place] [phone] [facility] Referral ID Status Reason Start Date Expiration Date V isits Requested Visits Authorized [id number] Authorized 11/23/2023 11/22/2024 1 1 Reason for Visit * Reason Onset Date Comments Order Request 11/22/2023 Encounter Details Date Type Department Care Team (Latest Contact Info) Description 11/22/2023 Clinical Communication Division of Gastroenterology in [place], [place] [address] [place] [phone] Katja Umana M.D. [address] [place] [phone] Order Request Social History Tobacco Use Types Packs/Day Years Used Date Smoking Tobacco: Every Day Cigarettes 0.5 40 Smokeless Tobacco: Never Alcohol Use Standard Drinks/Week Comments Not Currently 0 (1 standard drink = 0.6 oz pur e alcohol) C Utilities Answer Date Recorded In the past [...] Sex Assigned at Female 10/06/2023 10:50 AM CONTACT CENTER SPECIALIST Gender Identity Female 10/06/2023 10:50 AM CONTACT CENTER SPECIALIST Sexual Orientation Straight 10/06/2023 10 :50 AM CONTACT CENTER SPECIALIST documented as of this encounter Plan [...] Total Score: 3 10/20/19 24 7:30 AM CONTACT CENTER SPECIALIST documented as of this encounter Care Teams Family Service Assistant Relationship Specialty Start Date End Date Elsewhere, Pcp PCP - General Family Medicine 12/07/23 documented as of this encounter
--- OUTSIDE RECORDS SUMMARY | 2024-02-03 11:28 | XMS_ITS ---
Author Organization [facility] Address [address] [place] [address] Care Team Providers Care Cutter Plastics Rolls Name Role Phone Elsewhere, Pcp Primary Care Provider Unavailabl e Transplant Episode Liver Candidate [facility] ([place], [place]) - [facility] Referred on 01/26/2024 Marked as Ineligible on 02/01/2024 Reason: Medical Contraindication Liver CoordinatorTXP PRE LIVER NURSE TEAM ROCH Phone: N/A Fax: N/A Email: N/A Scores Score Value Updated Expires Exceptions/Arp sons CPRA Not available UNOS MELD Not available MELD (Calc) 24 12/09/2023 Care Team Name Role Phone Fax Email TXP PRE LIVER NURSE TEAM ROCH Liver Coordinator N/A N/A N/A Katja Umana M.D. Referring Provider [phone] [email or web address] Pre-Transplant Referred: 01/26/2024
--- OUTSIDE RECORDS SUMMARY | 2024-02-03 11:28 | XMS_ITS | Encounter Summary ---
Author Organization [facility] Address [address] [place] [address] Care Team Providers Care Conservation Science Teacher Name Role Phone Unavailable Primary Care Provider Unavailabl e Reason for Visit * Reason Comments Nicotine Dependence * Outpatient (Routine) - Closed Specialty Diagnoses / Procedures Referred By Contac t Referred To Contact Nicotine Dependence uSdha Bernstein M.A., Yesy.I.C.S.W., C.T.T.S. [address] [place] [phone] [facility] Referral ID Status Reason Start Date Expiration Date Visits Re quested Visits Authorized [id number] Closed 10/28/2023 04/28/2025 1 1 Encounter Details Date Type Department Care Team (Late st Contact Info) Description 11/11/2023 11:00 AM AIRCRAFT RIVETER Virtual Visit Department of Nicotine Dependence, [facility], in [place], [place] [address] [place] [phone] Sudha Bernstein M.A., Yesy.I.C.S.W., C.T.T.S. [address] [place] [phone] Nicotine Dependence Cigarettes With Withdrawal (Primary Dx) Social History Tobacco Use Types Packs/Day Years Used Date Smoking Tobacco: Every Day Cigarettes 0.5 40 Smokeless Tobacco: Never Alcohol Use Standard Drinks/Week Comments Not Currently 0 (1 standard drink = 0.6 oz pur e alcohol) [facility] Utilities Answer Date Recorded In the past 12 months has [employer], gas, oil, or water company threatened [...] Date Recorded Employment status Working with temporary [employer] tions 10/15/2023 Housing Stability Answer Date Recorded What is your living situation today? I have a [facility] place to live 10/15/2023 Sex and Gender Information Value Date Recorded Sex Assigned at Female 10/06/2023 10:50 AM AIRCRAFT RIVETER Gender Identity Female 10/06/2023 10:50 AM AIRCRAFT RIVETER Sexual Orientation Straight 10/06/2023 10 :50 AM AIRCRAFT RIVETER documented as of this encounter Progress Notes * Sudha Bernstein M.A., L.IPetrosC.S.W., M.S.W. - 11/11/2023 11:00 AM CST OBJECTIVE [...] concerns. The patient denied interest in having [facility] staff ask the [facility] medicalprovider if they recommend a [...] to tape and the patient was informed [facility] staff can ask the [facility] medical provider to write on [...] 25 minutes was spent on tobacco counseling. RAFT RIVETER documented in this encounter Plan of Treatment Not on file documented as of this encounter Visit Diagnoses Diagnosis Nicotine Dependence Cigarettes With Withdrawal- Primary documented in this encounter Additional Health Concerns Assessment Noted Time PHQ-9 Depression Total Score: 3 10/20/19 24 7:30 AM AIRCRAFT RIVETER documented as of this encounter
--- OUTSIDE RECORDS SUMMARY | 2024-02-03 11:28 | XMS_ITS | Encounter Summary ---
Author Organization [facility] Address [address] [place] [address] Care Team Providers Care Forming Department Supervisor Name Role Phone Elsewhere, Pcp Primary Care Provider Unavailabl e Reason for Visit * Reason Comments Nicotine Dependence * Outpatient (Routine) - Closed Specialty Diagnoses / Procedures Referred By Contac t Referred To Contact Nicotine Dependence Sudha Bernstein M.A., Yesy.I.C.S.W., C.T.T.S. [address] [place] [phone] [facility] Referral ID Status Reason Start Date Expiration Date Visits Re quested Visits Authorized [id number] Closed 11/11/2023 05/12/2025 1 1 Encounter Details Date Type Department Care Team (Late st Contact Info) Description 11/18/2023 11:00 AM SHOE PATTERNMAKER Virtual Visit Department of Nicotine Dependence, [facility], in [place], [place] [address] [place] [phone] Sudha Bernstein M.A., Yesy.I.C.S.W., C.T.T.S. [address] [place] [phone] Nicotine Dependence Cigarettes With Withdrawal (Primary Dx) Social History Tobacco Use Types Packs/Day Years Used Date Smoking Tobacco: Every Day Cigarettes 0.5 40 Smokeless Tobacco: Never Alcohol Use Standard Drinks/Week Comments Not Currently 0 (1 standard drink = 0.6 oz pur e alcohol) [facility] Utilities Answer Date Recorded In the past 12 months has [employer] electric, gas, oil, or water company threatened [...] Sex Assigned at Female 10/06/2023 10:50 AM SHOE PATTERNMAKER Gender Identity Female 10/06/2023 10:50 AM SHOE PATTERNMAKER Sexual Orientation Straight 10/06/2023 10 :50 AM SHOE PATTERNMAKER documented as of this encounter Progress Notes * Sudha Bernstein M.A., LCaesarC.S.W., M.S.W. - 11/18/2023 11:00 AM CST OBJECTIVE Monique Russell Ruy [...] 10 minutes was spent on tobacco counseling. PATTERNMAKER documented in this encounter Plan of Treatment Not on file documented as of this encounter Visit Diagnoses Diagnosis Nicotine Dependence Cigarettes With Withdrawal- Primary documented in this encounter Additional Health Concerns Assessment Noted Time PHQ-9 Depression Total Score: 3 10/20/19 24 7:30 AM SHOE PATTERNMAKER documented as of this encounter Care Teams Forming Department Supervisor Relationship Specialty Start Date End Date Elsewhere, Pcp PCP - General Family Medicine 12/07/23 documented as of this encounter
--- OUTSIDE RECORDS SUMMARY | 2024-02-03 11:28 | XMS_ITS | Encounter Summary ---
Author Organization [facility] Address [address] [place] [address] Care Team Providers Care Baby Attendant Name Role Phone Unavailable Primary Care Provider Unavailabl e Reason for Referral * Outpatient (Routine) - Closed Specialty Diagnoses / Procedures Referred By Contact Referred To Contact Gastroenterology and Hepatology Katja Aguilera M.D. [address] [place] [phone] [facility] Referral ID Status Reason Start Date Expiration Date Visits Re quested Visits Authorized [id number] Closed 10/28/2023 04/28/2025 1 1 GRINDER OPERATOR Encounter Details Date Type Department Care Team (Late st Contact Info) Description 10/28/2023 [facility] [place], [place] [address] [place] [phone] Katja Aguilera M.D. [address] [place] [phone] Alcoholic Cirrhosis Of Liver With Ascites (HCC) (Primary Dx) Social History Tobacco Use Types Packs/Day Years Used Date Smoking Tobacco: Every Day Cigarettes 0.5 40 Smokeless Tobacco: Never Alcohol Use Standard Drinks/Week Comments Not Currently 0 (1 standard drink = 0.6 oz pur e alcohol) [facility] Utilities Answer Date Recorded In the past 12 months has [employer], gas, oil, or water company threatened [...] Date Recorded Employment status Working with temporary [employer] tions 10/15/2023 Housing Stability Answer Date Recorded What is your living situation today? I have a [facility] place to live 10/15/2023 Sex and Gender Information Value Date Recorded Sex Assigned at Female 10/06/2023 10:50 AM ROLL GRINDER OPERATOR Gender Identity Female 10/06/2023 10:50 AM ROLL GRINDER OPERATOR Sexual Orientation Straight 10/06/2023 10 :50 AM ROLL GRINDER OPERATOR documented as of this encounter Miscellaneous Notes * Addendum Note - Katja Aguilera M.D. - 10/28/2023 2:39 PM CSTAddended by: KATJA AGUILERA on: 10/28/2023 02:48 PM Modules accepted: Orders GRINDER OPERATOR documented in this encounter Plan of Treatment Scheduled Referrals Name Type Priority Associated Diagnoses Order Schedule Gastroenterology and Hepatology office visit (clinic) Outpatient Referral Routine Expected: 12/14/2023, Expires: 01/25/2025 documented as of this encounter Results * (ABNORMAL) Basic Metabolic Panel (11/01/2023 12:49 PM ROLL GRINDER OPERATOR) Potassium, P 4.1 3.6 - 5.2 mmol/L 11/01/2023 1:13 PM ROLL GRINDER OPERATOR CNFL Sodium, P 128(L) 135 - 145 mmol/L 11/01/2023 1:13 PM ROLL GRINDER OPERATOR CNFL Chloride, P 95(L) 98 - 107 mmol/L 11/01/2023 1:13 PM ROLL GRINDER OPERATOR CNFL Bicarbonate, P 26 22 - 29 mmol/L 11/01/2023 1:13 PM ROLL GRINDER OPERATOR CNFL Anion Gap, P 7 7 - 15 11/01/2023 1:13 PM ROLL GRINDER OPERATOR CNFL BUN (Blood Urea Nitrogen), P 10 6 - 21 mg/dL 11/01/2023 1:13 PM ROLL GRINDER OPERATOR CNFL Creatinine 0.42(L) 0.59 - 1.04 mg/dL 11/01/2023 1:13 PM ROLL GRINDER OPERATOR CNFL Estimated GFR (eGFR) >90 >=60 mL/min/BSA 11/01/2023 1:13 PM ROLL GRINDER OPERATOR CNFL Comment: Estimated GFR calculated using the 2020 CKD_EPI creatinine equation. Calcium, Total, P 8.3(L) 8.8 - 10.2 mg/dL 11/01/2023 1:13 PM ROLL GRINDER OPERATOR CNFL Glucose, P 105 70 - 140 mg/dL 11/01/2023 1:13 PM ROLL GRINDER OPERATOR CNFL Blood (Blood, Venous) 11/01/2023 12:49 PM ROLL GRINDER OPERATOR 11/01/2023 12:54 PM ROLL GRINDER OPERATOR Katja Aguilera M.D. LAB BLOOD ADD-ON [facility] [address] [place] [phone], [facility] CNFL [facility] in [address] [phone] documented in this encounter Visit Diagnoses Diagnosis Alcoholic Cirrhosis Of Liver With Ascites (HCC)- Primary documented in this encounter Additional Health Concerns Assessment Noted Time PHQ-9 Depression Total Score: 3 10/20/19 24 7:30 AM ROLL GRINDER OPERATOR documented as of this encounter
--- OUTSIDE RECORDS SUMMARY | 2024-02-03 11:28 | XMS_ITS | Encounter Summary ---
Author Organization [facility] Address [address] [place] [address] Care Team Providers Care Distribution Engineering Technologist Name Role Phone Unavailable Primary Care Provider Unavailabl e Reason for Referral * Outpatient (Routine) - Closed Specialty Diagnoses / Procedures Referred By Dotty oakes Referred To Contact Diagnoses Ascites Procedures US Paracentesis with Imaging Guidance Felipe Morales M.D. 200 [place] [phone] [facility] Referral ID Status Reason Start Date Expiration Date Visits Re quested Visits Authorized [id number] Closed 10/11/2023 10/10/2024 1 1 RNAL SALESPERSON * Outpatient (Routine) - Closed Specialty Diagnoses / Procedures Referred By Dotty oakes Referred To Contact Diagnoses Ascites Procedures US Paracentesis with Imaging Guidance Felipe Morales M.D. 200 [place] [phone] [facility] Referral ID Status Reason Start Date Expiration Date Visits Re quested Visits Authorized [id number] Closed 10/11/2023 10/10/2024 1 1 RNAL SALESPERSON Reason for Visit * Reason Onset Date Comments Hepatobiliary 10/08/2023 Ascites elijah Encounter Details Date Type Department Care Team (Latest Contact Info) Description 10/08/2023 Clinical Communication Division of Gastroenterology in [place], [place] [address] [place] [phone] Felipe Morales M.D. 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 I have a [facility] place to live 10/15/2023 Sex and Gender Information Value Date Recorded Sex Assigned at Female 10/06/2023 10:50 AM INTERNAL SALESPERSON Gender Identity Female 10/06/2023 10:50 AM INTERNAL SALESPERSON Sexual Orientation Straight 10/06/2023 10 :50 AM INTERNAL SALESPERSON documented as of this encounter Plan of Treatment Not on file documented as of this encounter Results * US Paracentesis with Imaging Guidance (11/19/2023 11:55 AM INTERNAL SALESPERSON) Anatomical Region Laterality Modality Abdomen, Ultrasound RST LOS, Ultrasound ARZ LOS, Procedure FLA LOS, Abdominal FLA LOS, Procedural, Procedural NWWI LOS N/A Ultrasound Impressions 11/19/2023 12:26 PM INTERNAL SALESPERSON Ultrasound-guided paracentesis. EP Narrative 11/19/2023 12:26 PM INTERNAL SALESPERSON EXAM: US PARACENTESIS WITH IMAGING GUIDANCE PRE-PROCEDURE: [...] Paracentesis with Imaging Guidance (11/05/2023 11:25 AM INTERNAL SALESPERSON) Anatomical Region Laterality Modality Abdomen, Ultrasound RST LOS, Ultrasound ARZ LOS, Procedure FLA LOS, Abdominal FLA LOS, Procedural, Procedural NWWI LOS N/A Ultrasound Impressions 11/05/2023 11:28 AM INTERNAL SALESPERSON Ultrasound-guided diagnostic and therapeutic paracentesis. NR Narrative 11/05/2023 11:28 AM INTERNAL SALESPERSON EXAM: US PARACENTESIS WITH IMAGING GUIDANCE PRE-PROCEDURE: [...] lower quadrant peritoneal space. Needle size: 5 Prydeinig centesis catheter. Volume aspirated: 6.8 liters aspirated, [...] lower quadrant peritoneal space. Needle size: 5 Prydeinig centesis catheter. Volume aspirated: 6.8 liters aspirated, [...]
--- OUTSIDE RECORDS SUMMARY | 2024-02-03 11:28 | XMS_ITS | Encounter Summary ---
Author Organization [facility] Address [address] [place] [address] Care Team Providers Care Band Sawing Machine Operator Name Role Phone Unavailable Primary Care Provider Unavailabl e Reason for Referral * Outpatient (Routine) - Closed Specialty Diagnoses / Procedures Referred By Dotty t Referred To Contact Nicotine Dependence Sudha Bernstein M.A., DonnS.Tom, C.T.T.S. [address] [place] [phone] [facility] Referral ID Status Reason Start Date Expiration Date Visits Re quested Visits Authorized [id number] Closed 11/18/2023 05/19/2025 1 1 Scheduling Instructions Please schedule a follow up phone visit. PICKER Encounter Details Date Type Department Care Team (Late st Contact Info) Description 11/18/2023 Orders Only Department of Nicotine Dependence, [facility] in [place], [place] [address] [place] [phone] Sudha Bernstein M.A., Edwin.S.W., C.T.T.S. [address] [place] [phone] Social History Tobacco Use Types Packs/Day Years Used Date Smoking Tobacco: Every Day Cigarettes 0.5 40 Smokeless Tobacco: Never Alcohol Use Standard Drinks/Week Comments Not Currently 0 (1 standard drink = 0.6 oz pur e alcohol) [facility] Utilities Answer Date Recorded In the past 12 months has th e [employer], gas, oil, or water [employer] threatened to shut off services in your [...] Date Recorded Employment status Working with temporary [employer] tions 10/15/2023 Housing Stability Answer Date Recorded What is your living situation today? I have a [facility] place to live 10/15/2023 Sex and Gender Information Value Date Recorded Sex Assigned at Female 10/06/2023 10:50 AM TILE PICKER Gender Identity Female 10/06/2023 10:50 AM TILE PICKER Sexual Orientation Straight 10/06/2023 10 :50 AM TILE PICKER documented as of this encounter Plan of Treatment Scheduled Referrals Name Type Priority Associated Diagnoses Order Schedule Nicotine Dependence office visit (clinic) Outpatient Referral Routine Expected: 12/20/2023, Expires: 02/17/2025 documented as of this encounter Visit Diagnoses Not on filedocumented in this encounter Additional Health Concerns Assessment Noted Time PHQ-9 Depression Total Score: 3 10/20/19 24 7:30 AM TILE PICKER documented as of this encounter
--- OUTSIDE RECORDS SUMMARY | 2024-02-03 11:28 | XMS_ITS | Encounter Summary ---
Author Organization [facility] Address [address] [place] [address] Care Team Providers Care Clerk Guide Name Role Phone Unavailable Primary Care Provider Unavailabl e Reason for Visit * Reason Comments Nicotine Dependence * Outpatient (Routine) - Closed Specialty Diagnoses / Procedures Referred By Contac t Referred To Contact Pulmonary Medicine / Nicotine Dependence Diagnoses Nicotine Dependence Cigarettes Romana Diane M.D., Ph.D. [address] [place] [phone] [facility] Referral ID Status Reason Start Date Expiration Date Visits Re quested Visits Authorized [id number] Closed 10/20/2023 04/20/2025 1 1 Encounter Details Date Type Department Care Team (Late st Contact Info) Description 10/28/2023 11:00 AM PROTOTYPE ENGINEER MANAGER Virtual Visit Department of Nicotine Dependence, [facility], in [place], [place] [address] [place] [phone] Romana Diane M.D., Ph.D. [address] [place] [phone] Sudha Bernstein M.A., L.I.C.S.W., C.T.T.S. [address] [place] [phone] Nicotine Dependence Cigarettes Social History Tobacco Use [...] Sex Assigned at Female 10/06/2023 10:50 AM PROTOTYPE ENGINEER MANAGER Gender Identity Female 10/06/2023 10:50 AM PROTOTYPE ENGINEER MANAGER Sexual Orientation Straight 10/06/2023 10 :50 AM PROTOTYPE ENGINEER MANAGER documented as of this encounter Consult Notes [...] this medication being metabolized through the liver [facility] staff would need to discuss the patient's [...] and cravings. Follow Up: I encouraged Monique Redmond to contact me with any questions or concerns. I plan tocall the patient to follow-up in two weeks. Patient was provided with [facility] educational materials electronically. . Patient is ready to learn, no apparant barriers to learning were identified. Patient understands and agrees with plan. 30 minutes of our visit was spent on tobacco use disorder counseling. Sudha Bernstein M.A., Sony, M.S.W. 10/28/2023 11:33 AM PROTOTYPE ENGINEER MANAGER OTYPE ENGINEER MANAGER documented in this encounter Plan of Treatment Not on file documented as of this encounter Visit Diagnoses Diagnosis Nicotine Dependence Cigarettes documented in this encounter Additional Health Concerns Assessment Noted Time PHQ-9 Depression Total Score: 3 10/20/19 24 7:30 AM PROTOTYPE ENGINEER MANAGER documented as of this encounter
--- OUTSIDE RECORDS SUMMARY | 2024-02-03 11:28 | XMS_ITS | Encounter Summary ---
Author Organization [facility] Address [address] [place] [address] Care Team Providers Care Solar Engineer Name Role Phone Unavailable Primary Care Provider Unavailabl e Encounter Details Date Type Department Care Team (Latest Contact Info) Description 11/01/2023 12:28 PM FINAL INSPECTION SUPERVISOR - 11/01/2023 11:59 PM FINAL INSPECTION SUPERVISOR Hospital Encounter Department of Laboratory Medicine in [address] [phone] Katja Umana M.D. [address] [place] [phone] Alcoholic Cirrhosis Of Liver With Ascites (HCC) Discharge Disposition: Home or Self Care Social History Tobacco Use Types Packs/Day Years Used Date Smoking Tobacco: Every Day Cigarettes 0.5 40 Smokeless Tobacco: Never Alcohol Use Standard Drinks/Week Comments Not Currently 0 (1 standard drink = 0.6 oz pur e alcohol) [facility] Utilities Answer Date Recorded In the past 12 months has [employer], gas, oil, or water [employer] threatened to shut off services in your [...] Date Recorded Employment status Working with temporary [employer] 10/15/2023 Housing Stability Answer Date Recorded What is your living situation today? I have a [facility] place to live 10/15/2023 Sex and Gender Information Value Date Recorded Sex Assigned at Female 10/06/2023 10:50 AM FINAL INSPECTION SUPERVISOR Gender Identity Female 10/06/2023 10:50 AM FINAL INSPECTION SUPERVISOR Sexual Orientation Straight 10/06/2023 10 :50 AM FINAL INSPECTION SUPERVISOR documented as of this encounter Medications at [...] METABOLIC PANEL, S/P Routine 11/01/2023 12:49 PM FINAL INSPECTION SUPERVISOR Alcoholic Cirrhosis Of Liver With Ascites (HCC) documented in this encounter Results * (ABNORMAL) Basic Metabolic Panel (11/01/2023 12:49 PM FINAL INSPECTION SUPERVISOR) Potassium, P 4.1 3.6 - 5.2 mmol/L 11/01/2023 1:13 PM FINAL INSPECTION SUPERVISOR CNFL Sodium, P 128(L) 135 - 145 mmol/L 11/01/2023 1:13 PM FINAL INSPECTION SUPERVISOR CNFL Chloride, P 95(L) 98 - 107 mmol/L 11/01/2023 1:13 PM FINAL INSPECTION SUPERVISOR CNFL Bicarbonate, P 26 22 - 29 mmol/L 11/01/2023 1:13 PM FINAL INSPECTION SUPERVISOR CNFL Anion Gap, P 7 7 - 15 11/01/2023 1:13 PM FINAL INSPECTION SUPERVISOR CNFL BUN (Blood Urea Nitrogen), P 10 6 - 21 mg/dL 11/01/2023 1:13 PM FINAL INSPECTION SUPERVISOR CNFL Creatinine 0.42(L) 0.59 - 1.04 mg/dL 11/01/2023 1:13 PM FINAL INSPECTION SUPERVISOR CNFL Estimated GFR (eGFR) >90 >=60 mL/min/BSA 11/01/2023 1:13 PM FINAL INSPECTION SUPERVISOR CNFL Comment: Estimated GFR calculated using the 2020 CKD_EPI creatinine equation. Calcium, Total, P 8.3(L) 8.8 - 10.2 mg/dL 11/01/2023 1:13 PM FINAL INSPECTION SUPERVISOR CNFL Glucose, P 105 70 - 140 mg/dL 11/01/2023 1:13 PM FINAL INSPECTION SUPERVISOR CNFL Blood (Blood, Venous) 11/01/2023 12:49 PM FINAL INSPECTION SUPERVISOR 11/01/2023 12:54 PM FINAL INSPECTION SUPERVISOR Katja Umana M.D. LAB BLOOD ADD-ON [facility] [address] [place] [address], [facility] CNFL [facility] [address] documented in this encounter Visit Diagnoses Diagnosis Alcoholic Cirrhosis Of Liver With Ascites (HCC) documented in this encounter Additional Health Concerns Assessment Noted Time PHQ-9 Depression Total Score: 3 10/20/19 24 7:30 AM FINAL INSPECTION SUPERVISOR documented as of this encounter
--- OUTSIDE RECORDS SUMMARY | 2024-02-03 11:28 | XMS_ITS | Encounter Summary ---
Author Organization [facility] Address [address] [place] [address] Care Team Providers Care Jet Mechanic Name Role Phone Unavailable Primary Care Provider Unavailabl e Reason for Referral * Outpatient (Routine) - Closed Specialty Diagnoses / Procedures Referred By Dotty oakes Referred To Contact Diagnoses Ascites Procedures US Paracentesis with Imaging Guidance Katja Umana M.D. [address] [place] [phone] [facility] Referral ID Status Reason Start Date Expiration Date Visits Re quested Visits Authorized [id number] Closed 10/18/2023 10/17/2024 1 1 ESSOR OF ANTHROPOLOGY Encounter Details Date Type Department Care Team (Latest Contact Info) Description 10/18/2023 Clinical Communication Division of Gastroenterology in [place], [place] [address] [place] [phone] Katja Umana M.D. [address] [place] [phone] Social History Tobacco Use Types Packs/Day Years Used Date Smoking Tobacco: Every Day Cigarettes 0.5 40 Smokeless Tobacco: Never Alcohol Use Standard Drinks/Week Comments Not Currently 0 (1 standard drink = 0.6 oz pur e alcohol) [facility] Utilities Answer Date Recorded In the past [...] Sex Assigned at Female 10/06/2023 10:50 AM PROFESSOR OF ANTHROPOLOGY Gender Identity Female 10/06/2023 10:50 AM PROFESSOR OF ANTHROPOLOGY Sexual Orientation Straight 10/06/2023 10 :50 AM PROFESSOR OF ANTHROPOLOGY documented as of this encounter Plan of Treatment Not on file documented as of this encounter Results * US Paracentesis with Imaging Guidance (10/22/2023 10:18 AM PROFESSOR OF ANTHROPOLOGY) Anatomical Region Laterality Modality Abdomen, Ultrasound RST LOS, Ultrasound ARZ LOS, Procedure FLA LOS, Abdominal FLA LOS, Procedural, Procedural NWWI LOS N/A Ultrasound Impressions 10/22/2023 10:26 AM PROFESSOR OF ANTHROPOLOGY Ultrasound-guided diagnostic and therapeutic paracentesis. NR Narrative 10/22/2023 10:26 AM PROFESSOR OF ANTHROPOLOGY EXAM: US PARACENTESIS WITH IMAGING GUIDANCE PRE-PROCEDURE: [...]
--- OUTSIDE RECORDS SUMMARY | 2024-02-03 11:28 | XMS_ITS | Encounter Summary ---
Author Organization [facility] Address [address] [place] [address] Care Team Providers Care [employer] Assistant Name Role Phone Unavailable Primary Care Provider Unavailabl e Reason for Referral * Outpatient (Routine) - Closed Specialty Diagnoses / Procedures Referred By Dotty oakes Referred To Contact Diagnoses Ascites Procedures US Paracentesis with Imaging Guidance Felipe Morales M.D. [address] [place] [phone] [facility] Referral ID Status Reason Start Date Expiration Date Visits Re quested Visits Authorized [id number] Closed 10/11/2023 10/10/2024 1 1 FRIER Reason for Visit * Outpatient (Routine) - Closed Specialty Diagnoses / Procedures Referred By Dotty oakes Referred To Contact Diagnoses Ascites Procedures US Paracentesis with Imaging Guidance Felipe Morales M.D. [address] [place] [phone] [facility] Referral ID Status Reason Start Date Expiration Date Visits Re quested Visits Authorized [id number] Closed 10/11/2023 10/10/2024 1 1 Encounter Details Date Type Department Care Team (Latest Contact Info) Description 11/19/2023 10:08 AM CHIP FRIER - 11/19/2023 12:51 PM CHIP FRIER Hospital Encounter Department of Radiology, [facility], in [place], [place] [address] [place] [address] Felipe Morales M.D. [address] [place] [phone] Ascites Discharge Disposition: Home or Self Care [...] today? I have a [facility] place to live 10/15/2023 Sex and Gender Information Value Date Recorded Sex Assigned at Female 10/06/2023 10:50 AM CHIP FRIER Gender Identity Female 10/06/2023 10:50 AM CHIP FRIER Sexual Orientation Straight 10/06/2023 10 :50 AM CHIP FRIER documented as of this encounter Last Filed Vital Signs Vital Sign Reading Time Taken Comments Blood Pressure 91/46 11/19/2023 11:45 AM CHIP FRIER Pulse 84 11/19/2023 11:45 AM CHIP FRIER Temperature - - Respiratory Rate - - Oxygen Saturation 100% 11/19/2023 11:45 AM CHIP FRIER Inhaled Oxygen Concentration - - Weight - [...] inpatients and all outpatients) 11/19/2023 11:55 AM CHIP FRIER Ascites BACTERIAL CULTURE, AEROBIC + SUSC Timed 11/19/2023 10:50 AM CHIP FRIER Ascites CELL COUNT AND DIFFERENTIAL, BF Timed 11/19/2023 10:50 AM CHIP FRIER Ascites documented in this encounter Results * US Paracentesis with Imaging Guidance (11/19/2023 11:55 AM CHIP FRIER) Anatomical Region Laterality Modality Abdomen, Ultrasound RST LOS, Ultrasound ARZ LOS, Procedure FLA LOS, Abdominal FLA LOS, Procedural, Procedural NWWI LOS N/A Ultrasound Impressions 11/19/2023 12:26 PM CHIP FRIER Ultrasound-guided paracentesis. EP Narrative 11/19/2023 12:26 PM CHIP FRIER EXAM: US PARACENTESIS WITH IMAGING GUIDANCE PRE-PROCEDURE: [...] Culture, Aerobic + Susceptibility (11/19/2023 10:50 AM CHIP FRIER) Bacterial Culture, Aerobic + Susc No growth after 5 days of incubation. 11/24/2023 8:27 AM CDT DTL Fluid (Peritoneal Fluid) 11/19/2023 10:50 AM CHIP FRIER Narrative [facility] - 11/24/2023 8:27 AM CDT Bacterial Culture: Received Bactec aerobic and Bactec anaerobic bottles Felipe Morales M.D. LAB MICROBIOLOGY - GENERAL ORDERABLES [facility] 200 [place] [address], [facility] 200 [place] [address] * Cell Count and Differential, Body Fluid (11/19/2023 10:50 AM CHIP FRIER) Fluid Type Peritoneal /Paracente sis 11/19/2023 12:39 PM CHIP FRIER DHPM Gross Appearance Serous 11/19/19 12:39 PM CHIP FRIER DHPM Total Nucleated Cells 201 /mcL 11/19/2023 12:39 PM CHIP FRIER DHPM Comment: ----REFERENCE VALUE---- Synovial: <150 /mcL Peritoneal: <500 /mcL Pleural: <500 /mcL Pericardial: <500 /mcL ----ADDITIONAL INFORMATION---- This test has been modified from the scrap baler's instructions. Its performance characteristics were determined by [facility] in a manner consistent with CLIA requirements. This test has not been cleared or approved by the U.S. Food and Drug Administration. Neutrophils 20 % 11/19/2023 1:42 PM CHIP FRIER DHPM Comment: ----REFERENCE VALUE---- Synovial: <25% Peritoneal: <25% Pleural: <25% Pericardial: <25% Lymphocytes 16 Synovial <75% % 11/19/2023 1:42 PM CHIP FRIER DHPM Monocytes/Macropha ges 60 Synovial <70% % 11/19/2023 1:42 PM CHIP FRIER DHPM Other Cells 4 % 11/19/2023 1:42 PM CHIP FRIER DHPM Comment: ----REFERENCE VALUE---- The reference range and other method performance specifications have not been established for this bodyfluid. The test result must be integrated into the clinical context for interpretation. Other Cells Are: See Comment 11/19/2023 1:42 PM CHIP FRIER [facility] Comment:Mesothelial cells Comment See Comment 11/19/2023 1:42 PM CHIP FRIER [facility] Comment:No blasts or maligna nt cells seen. Reviewed by: Jose 11/19/2023 1:42 PM CHIP FRIER [facility] Fluid (Peritoneal Fluid) 11/19/2023 10:50 AM CHIP FRIER Felipe Morales M.D. LAB BODY FLUIDS AND STOOLS ORDERABLES [facility] 200 [place] [address], [facility] 200 [place] [address] documented in this encounter Visit Diagnoses Diagnosis [...] provider's discretion) New Bag 11/19/2023 11:11 AM CHIP FRIER 50 g 100 mL/hr lidocaine 10 mg/mL (1 %) injection (XYLOCAINE) As needed, Starting on Wed11/19/23 at 1056, Intra-Op Given 11/19/2023 10:56 AM CHIP FRIER 5 mL Abdominal Tissue documented in this encounter Active and Recently Administered Medications Times are shown in CHIP FRIER. Scheduled Medication Order 11/17/2023 11/18/2023 11/19/2023 albumin [...] Total Score: 3 10/20/19 24 7:30 AM CHIP FRIER documented as of this encounter
--- OUTSIDE RECORDS SUMMARY | 2024-02-03 11:28 | XMS_ITS | Encounter Summary ---
Author Organization [facility] Address [address] [place] [address] Care Team Providers Care Field Professional Name Role Phone Unavailable Primary Care Provider Unavailabl e Encounter Details Date Type Department Care Team (Latest Contact Info) Description 10/27/2023 10:26 AM EMERGENCY MEDICINE - 10/27/2023 11:59 PM EMERGENCY MEDICINE Hospital Encounter Department of Laboratory Medicine in [address] [phone] Katja Umana M.D. [address] [place] [phone] Alcoholic Cirrhosis Of Liver With Ascites (HCC); [...] In the past 12 months has e [employer], gas, oil, or water [employer] threatened to shut off services in your [...] Date Recorded Employment status Working with temporary [employer] 10/15/2023 Housing Stability Answer Date Recorded What is your living situation today? I have a [facility] place to live 10/15/2023 Sex and Gender Information Value Date Recorded Sex Assigned at Female 10/06/2023 10:50 AM EMERGENCY MEDICINE Gender Identity Female 10/06/2023 10:50 AM EMERGENCY MEDICINE Sexual Orientation Straight 10/06/2023 10 :50 AM EMERGENCY MEDICINE documented as of this encounter Medications at [...] PHOSPHATIDYLETHANOL CONFIRMATION, B Routine 10/27/2023 10:33 AM EMERGENCY MEDICINE Alcohol Moderate Or Severe Use Disorder (Dependence) Uncomplicated (HCC) BASIC METABOLIC PANEL, S/P Routine 10/27 10:33 AM EMERGENCY MEDICINE Alcoholic Cirrhosis Of Liver With Ascites (HCC) documented in this encounter Results * Phosphatidylethanol Confirmation (10/27/2023 10:33 AM EMERGENCY MEDICINE) PEth 16:0/18:1 (POPEth) by LC-MS/MS <20 Cutoff: 10 ng/mL 10/29/2023 8:22 PM EMERGENCY MEDICINE [facility] Comment: Testing performed at a x2 dilution; [...] <10 Cutoff: 10 ng/mL 10/29/2023 8:22 PM EMERGENCY MEDICINE [facility] Comment: PEth 16:0/18:2 (PLPEth) Reference ranges are not well established PEth Interpretation Negative. 10/29 8:22 PM EMERGENCY MEDICINE [facility] Comment: ----ADDITIONAL INFORMATION---- This report is intended for use in clinical monitoring and management of patients. ??It is not intended for use in employment-related testing. This test was developed and its performance characteristics determined by [facility] in a manner consistent with CLIA requirements. This test has not been cleared or approved by the U.S. Food and Drug Administration. Blood (Blood, Venous) 10/27/2023 10:33 AM EMERGENCY MEDICINE 10/27/2023 9:57 PM EMERGENCY MEDICINE Romana Diane M.D., Ph.D. LAB BLO OD ADD-ON [facility] [address] [place] [address] [facility] [address] [place] [address] [place] [address] * (ABNORMAL) Basic Metabolic Panel (10/27/2023 10:33 AM EMERGENCY MEDICINE) Pathologist [facility] Potassium, P 3.6 3.6 - 5.2 mmol/L 10/27/2023 10:57 AM EMERGENCY MEDICINE CNFL Sodium, P 125(L) 135 - 145 mmol/L 10/27/2023 10:57 AM EMERGENCY MEDICINE [facility] Chloride, P 92(L) 98 - 107 mmol/L 10/27/2023 10:57 AM EMERGENCY MEDICINE [facility] Bicarbonate, P 21(L) 22 - 29 mmol/L 10/27/2023 10:57 AM EMERGENCY MEDICINE [facility] Anion Gap, P 12 7 - 15 10/27/2023 10:57 AM EMERGENCY MEDICINE [facility] BUN (Blood Urea Nitrogen), P 10 6 - 21 mg/dL 10/27/2023 10:57 AM EMERGENCY MEDICINE [facility] Creatinine 0.47(L) 0.59 - 1.04 mg/dL 10/27/2023 10:57 AM EMERGENCY MEDICINE [facility] Estimated GFR (eGFR) >90 >=60 mL/min/BSA 10/27/2023 10:57 AM EMERGENCY MEDICINE [facility] Comment: Estimated GFR calculated using the 2020 CKD_EPI creatinine equation. Calcium, Total, P 8.4(L) 8.8 - 10.2 mg/dL 10/27/2023 10:57 AM EMERGENCY MEDICINE [facility] Glucose, P 93 70 - 140 mg/dL 10/27/2023 10:57 AM EMERGENCY MEDICINE CN[facility] Blood (Blood, Venous) 10/27/2023 10:33 AM EMERGENCY MEDICINE 10/27/2023 10:36 AM EMERGENCY MEDICINE Katja Umana M.D. LAB BLOOD ADD-ON [facility] [address] [place] [phone], [facility] CNFL [facility] in [address] [address] documented in this encounter Visit Diagnoses Diagnosis Alcoholic Cirrhosis Of Liver With Ascites (HCC) Alcohol Moderate Or Severe Use Disorder (Dependence) Uncomplicated (HCC) documented in this encounter Additional Health Concerns Assessment Noted Time PHQ-9 Depression Total Score: 3 10/20/19 24 7:30 AM EMERGENCY MEDICINE documented as of this encounter
--- OUTSIDE RECORDS SUMMARY | 2024-02-03 11:28 | XMS_ITS | Encounter Summary ---
Author Organization [facility] Address [address] [place] [address] Care Team Providers Care Hematologist Oncologist Name Role Phone Unavailable Primary Care Provider Unavailabl e Reason for Visit * Reason Onset Date Comments NDC Med Request 11/11/2023 Encounter Details Date Type Department Care Team (Latest Contact Info) Description 11/11/2023 Clinical Communication Department of Nicotine Dependence, [facility], in [place], [place] [address] [place] [address] Sudha Bernstein M.A., L.I.C.S.W., C.T.T.S. [address] [place] [phone] NDC Med Request Social History Tobacco Use Types Packs/Day Years Used Date Smoking Tobacco: Every Day Cigarettes 0.5 40 Smokeless Tobacco: Never Alcohol Use Standard Drinks/Week Comments Not Currently 0 (1 standard drink = 0.6 oz pur e alcohol) [facility] Utilities Answer Date Recorded In the past 12 months has [employer], gas, oil, or water [employer] threatened to shut off services in your [...] Date Recorded Employment status Working with temporary [employer] 10/15/2023 Housing Stability Answer Date Recorded What is your living situation today? I have a [facility] place to live 10/15/2023 Sex and Gender Information Value Date Recorded Sex Assigned at Female 10/06/2023 10:50 AM CARGO AGENT Gender Identity Female 10/06/2023 10:50 AM CARGO AGENT Sexual Orientation Straight 10/06/2023 10 :50 AM CARGO AGENT documented as of this encounter Miscellaneous Notes * Telephone Encounter - Sudha Bernstein M.A., L.I.C.S.W., M.S.W. - 11/11/2023 11:39 AM CST Sandra, this patient is interested in having a prescription sent to [facility] in [place], [place] for the following if appropriate after [...] if you have any questions. Thank you. O AGENT documented in this encounter Plan of Treatment Not on file documented as of this encounter Visit Diagnoses Not on filedocumented in this encounter Additional Health Concerns Assessment Noted Time PHQ-9 Depression Total Score: 3 10/20/19 24 7:30 AM CARGO AGENT documented as of this encounter
--- OUTSIDE RECORDS SUMMARY | 2024-02-03 11:28 | XMS_ITS | Encounter Summary ---
Author Organization [facility] Address [address] [place] [address] Care Team Providers Care Sausage Stringer Name Role Phone Unavailable Primary Care Provider Unavailabl e Encounter Details Date Type Department Care Team (Latest Contact Info) Description 10/27/2023 10:26 AM ADJUSTER AND INSPECTOR - 10/27/2023 11:59 PM [facility] Hospital Encounter Department of Laboratory Medicine in [address] [phone] Romana Diane M.D., Ph.D. [address] [place] [address] Alcohol Moderate Or Severe Use Disorder (Dependence) Uncomplicated (HCC) Discharge Disposition: Home or Self Care Social History Tobacco Use Types Packs/Day Years Used Date Smoking Tobacco: Every Day Cigarettes 0.5 40 Smokeless Tobacco: Never Alcohol Use Standard Drinks/Week Comments Not Currently 0 (1 standard drink = 0.6 oz pur e alcohol) [facility] Utilities Answer Date Recorded In the past 12 months has e [employer], gas, oil, or water [employer] threatened to shut off services in your [...] Date Recorded Employment status Working with temporary [employer] 10/15/2023 Housing Stability Answer Date Recorded What is your living situation today? I have a [facility] place to live 10/15/2023 Sex and Gender Information Value Date Recorded Sex Assigned at Female 10/06/2023 10:50 AM ADJUSTER AND INSPECTOR Gender Identity Female 10/06/2023 10:50 AM ADJUSTER AND INSPECTOR Sexual Orientation Straight 10/06/2023 10 :50 AM ADJUSTER AND INSPECTOR documented as of this encounter Medications at [...] GLUCURONIDE CONFIRMATION, U Routine 10/27/2023 10:38 AM ADJUSTER AND INSPECTOR Alcohol Moderate Or Severe Use Disorder (Dependence) Uncomplicated (HCC) CONFIRMED DRUG ABUSE PANEL, U Routine 10/27/2023 10:38 AM ADJUSTER AND INSPECTOR Alcohol Moderate Or Severe Use Disorder (Dependence) Uncomplicated (HCC) documented in this encounter Results * Drug Abuse Survey with Confirmation, Urine (10/27/2023 10:38 AM ADJUSTER AND INSPECTOR) Alcohol Negative Cutoff: 10 mg/dL 10/28/2023 9:08 AM ADJUSTER AND INSPECTOR SDS Amphetamines Negative Cutoff: 500 ng/mL 10/28/2023 9:08 AM ADJUSTER AND INSPECTOR SDS Barbiturates Negative Cutoff: 200 ng/mL 10/28/2023 9:08 AM ADJUSTER AND INSPECTOR SDS Benzodiazepines Negative Cutoff: 100 ng/mL 10/28/2023 9:08 AM ADJUSTER AND INSPECTOR [facility] Cocaine Negative Cutoff: 150 ng/mL 10/28/2023 9:08 AM ADJUSTER AND INSPECTOR [facility] Comment: This cocaine immunoassay targets benzoylecgonine the primary metabolite of cocaine. Opiates Negative Cutoff: 300 ng/mL 10/28/2023 9:08 AM ADJUSTER AND INSPECTOR SDS Phencyclidine Negative Cutoff: 25 ng/mL 10/28/2023 9:08 AM ADJUSTER AND INSPECTOR SDS Tetrahydrocannabinol Negative Cutoff: 50 ng/mL 10/28/2023 9:08 AM [facility] Comment: This immunoassay targets delta-9 tetrahydrocannabinol carboxylic acid (THC-COOH), a metabolite of delta-9 tetrahydrocannabinol the main psychoactive ingredient of marijuana. ----ADDITIONAL INFORMATION---- This report is intended for use in clinical monitoring or management of patients. ??It is not intended for use in employment-related testing. Urine (Urine, Midstream) 10/27/2023 10:38 AM ADJUSTER AND INSPECTOR 10/27/2023 10:03 PM ADJUSTER AND INSPECTOR Romana Diane M.D., Ph.D. LAB URI NE ORDERABLES [facility] [address] [place] [address] [facility] [address] [place] [address] [place] [phone] * Ethyl Glucuronide Confirmation, Random, Urine (10/27/2023 10:38 AM ADJUSTER AND INSPECTOR) Ethyl Glucuronide Confirmation, U Negative Cutoff: 250 ng/mL 10/29/2023 8:19 AM ADJUSTER AND INSPECTOR [facility] Ethyl Sulfate Negative Cutoff: 100 ng/mL 10/29/2023 8:19 AM ADJUSTER AND INSPECTOR [facility] Ethyl Gluc/Sulfate Interpretation Negative. 10/29/2023 8:19 AM ADJUSTER AND INSPECTOR [facility] Comment: ----ADDITIONAL INFORMATION---- This report is intended for use in clinical monitoring and management of patients. ??It is not intended for use in employment-related testing. This test was developed and its performance characteristics determined by [facility] in a manner consistent with CLIA requirements. This test has not been cleared or approved by the U.S. Food and Drug Administration. Urine (Urine, Midstream) 10/27/2023 10:38 AM ADJUSTER AND INSPECTOR 10/27/2023 10:00 PM ADJUSTER AND INSPECTOR Romana Diane M.D., Ph.D. LAB URI NE ORDERABLES Performing Organization Address [facility] Co de Phone Number [facility] [address] [place] [address] [facility] [address] [place] [address] [place] [phone] documented in this encounter Visit Diagnoses Diagnosis Alcohol Moderate Or Severe Use Disorder (Dependence) Uncomplicated (HCC) documented in this encounter Additional Health Concerns Assessment Noted Time PHQ-9 Depression Total Score: 3 10/20/19 24 7:30 AM ADJUSTER AND INSPECTOR documented as of this encounter
--- OUTSIDE RECORDS SUMMARY | 2024-02-03 11:28 | XMS_ITS | Encounter Summary ---
Author Organization [facility] Address [address] [place] [address] Care Team Providers Care Account Resolution Analyst Name Role Phone Unavailable Primary Care Provider Unavailabl e Reason for Referral * Outpatient (Routine) - Closed Specialty Diagnoses / Procedures Referred By Dotty oakes Referred To Contact Nicotine Dependence Sudha Bernstein M.A., DonnS.W., C.T.T.S. [address] [place] [phone] [facility] Referral ID Status Reason Start Date Expiration Date Visits Re quested Visits Authorized [id number] Closed 11/11/2023 05/12/2025 1 1 Scheduling Instructions Please schedule a follow up phone visit at 11:00am, PE WHEEL TOOTH CUTTER Encounter Details Date Type Department Care Team (Late st Contact Info) Description 11/11/2023 Orders Only Department of Nicotine Dependence, [facility] in [place], [place] [address] [place] [phone] Sudha Bernstein M.A., Edwin.S.W., C.T.T.S. [address] [place] [phone] Social History Tobacco Use Types Packs/Day Years Used Date Smoking Tobacco: Every Day Cigarettes 0.5 40 Smokeless Tobacco: Never Alcohol Use Standard Drinks/Week Comments Not Currently 0 (1 standard drink = 0.6 oz pur e alcohol) [facility] Utilities Answer Date Recorded In [...] Sex Assigned at Female 10/06/2023 10:50 AM ESCAPE WHEEL TOOTH CUTTER Gender Identity Female 10/06/2023 10:50 AM ESCAPE WHEEL TOOTH CUTTER Sexual Orientation Straight 10/06/2023 10 :50 AM ESCAPE WHEEL TOOTH CUTTER documented as of this encounter Plan of Treatment Scheduled Referrals Name Type Priority Associated Diagnoses Order Schedule Nicotine Dependence office visit (clinic) Outpatient Referral Routine Expected: 11/18/2023, Expires: 02/08/2025 documented as of this encounter Visit Diagnoses Not on filedocumented in this encounter Additional Health Concerns Assessment Noted Time PHQ-9 Depression Total Score: 3 10/20/19 24 7:30 AM ESCAPE WHEEL TOOTH CUTTER documented as of this encounter
--- OUTSIDE RECORDS SUMMARY | 2024-02-03 11:28 | XMS_ITS | Encounter Summary ---
Author Organization [facility] Address [address] [place] [address] Care Team Providers Care Sales Coordinator Name Role Phone Unavailable Primary Care Provider Unavailabl e Reason for Visit * Reason Onset Date Comments NDC Med Request 10/28/2023 Encounter Details Date Type Department Care Team (Latest Contact Info) Description 10/28/2023 Clinical Communication Department of Nicotine Dependence, [facility], in [place], [place] [address] [place] [address] Sudha Bernstein M.A., L.I.C.S.W., C.T.T.S. [address] [place] [phone] NDC Med Request Social History Tobacco Use Types Packs/Day Years Used Date Smoking Tobacco: Every Day Cigarettes 0.5 40 Smokeless Tobacco: Never Alcohol Use Standard Drinks/Week Comments Not Currently 0 (1 standard drink = 0.6 oz pur e alcohol) [facility] Utilities Answer Date Recorded In the past 12 months has [employer], gas, oil, or water [employer] threatened to shut off services in [...] Date Recorded Employment status Working with temporary [employer] 10/15/2023 Housing Stability Answer Date Recorded What is your living situation today? I have a [facility] place to live 10/15/2023 Sex and Gender Information Value Date Recorded Sex Assigned at Female 10/06/2023 10:50 AM CANDY DECORATOR Gender Identity Female 10/06/2023 10:50 AM CANDY DECORATOR Sexual Orientation Straight 10/06/2023 10 :50 AM CANDY DECORATOR documented as of this encounter Miscellaneous Notes * Addendum Note - Raisa Hunt M.D. - 10/28/2023 5:01 PM CSTAddended by: RAISA HUNT on: 10/28/2023 05:01 PM Modules accepted: Orders Y DECORATOR * Telephone Encounter - Sudha Bernstein M.A., L.I.C.S.W., M.S.W. - 10/28/2023 11:[address] Hunt, this patient is interested in having a prescription for Varenicline and nicotine lozenges sent to [facility] in [place], [place] for smoking cessation if appropriate based on your review of her medical record. Varenicline Starter Pack with refills 2 mg nicotine lozenges Thank you. Y DECORATOR documented in this encounter Plan of Treatment Not on file documented as of this encounter Visit Diagnoses Diagnosis Nicotine Dependence Cigarettes- Primary documented in this encounter Additional Health Concerns Assessment Noted Time PHQ-9 Depression Total Score: 3 10/20/19 24 7:30 AM CANDY DECORATOR documented as of this encounter
--- OUTSIDE RECORDS SUMMARY | 2024-02-03 11:28 | XMS_ITS | Encounter Summary ---
Author Organization [facility] Address [address] [place] [address] Care Team Providers Care Opto Mechanical Technician Name Role Phone Unavailable Primary Care Provider Unavailabl e Reason for Referral * Outpatient (Routine) - Closed Specialty Diagnoses / Procedures Referred By Dotty oakes Referred To Contact Diagnoses Ascites Procedures US Paracentesis with Imaging Guidance Felipe Morales M.D. [address] [place] [phone] [facility] Referral ID Status Reason Start Date Expiration Date Visits Re quested Visits Authorized [id number] Closed 10/11/2023 10/10/2024 1 1 FIC SUPERVISOR Reason for Visit * Outpatient (Routine) - Closed Specialty Diagnoses / Procedures Referred By Dotty oakes Referred To Contact Diagnoses Ascites Procedures US Paracentesis with Imaging Guidance Felipe Morales M.D. [address] [place] [phone] [facility] Referral ID Status Reason Start Date Expiration Date Visits Re quested Visits Authorized [id number] Closed 10/11/2023 10/10/2024 1 1 Encounter Details Date Type Department Care Team (Latest Contact Info) Description 11/05/2023 9:29 AM TRAFFIC SUPERVISOR - 11/05/2023 12:20 PM TRAFFIC SUPERVISOR Hospital Encounter Department of Radiology, [facility], in [place], [place] [address] [place] [address] Felipe Morales M.D. [address] [place] [phone] Ascites Discharge Disposition: Home or Self Care Social History Tobacco Use Types Packs/Day Years Used Date Smoking Tobacco: Every Day Cigarettes 0.5 40 Smokeless Tobacco: Never Alcohol Use Standard Drinks/Week Comments Not Currently 0 (1 standard drink = 0.6 oz pur e alcohol) [facility] Utilities Answer Date Recorded [...] your living situation today? I have a [facility] place to live 10/15/2023 Sex and Gender Information Value Date Recorded Sex Assigned at Female 10/06/2023 10:50 AM TRAFFIC SUPERVISOR Gender Identity Female 10/06/2023 10:50 AM TRAFFIC SUPERVISOR Sexual Orientation Straight 10/06/2023 10 :50 AM TRAFFIC SUPERVISOR documented as of this encounter Last Filed Vital Signs Vital Sign Reading Time Taken Comments Blood Pressure 106/56 11/05/2023 11:17 AM TRAFFIC SUPERVISOR Pulse 88 11/05/2023 11:17 AM TRAFFIC SUPERVISOR Temperature - - Respiratory Rate - - Oxygen Saturation 100% 11/05/2023 11:17 AM TRAFFIC SUPERVISOR Inhaled Oxygen Concentration - - Weight - [...] inpatients and all outpatients) 11/05/2023 11:25 AM TRAFFIC SUPERVISOR Ascites BACTERIAL CULTURE, AEROBIC + SUSC Timed 11/05/2023 10:07 AM TRAFFIC SUPERVISOR Ascites CELL COUNT AND DIFFERENTIAL, BF Timed 11/05/2023 10:07 AM TRAFFIC SUPERVISOR Ascites documented in this encounter Results * US Paracentesis with Imaging Guidance (11/05/2023 11:25 AM TRAFFIC SUPERVISOR) Anatomical Region Laterality Modality Abdomen, Ultrasound RST LOS, Ultrasound ARZ LOS, Procedure FLA LOS, Abdominal FLA LOS, Procedural, Procedural NWWI LOS N/A Ultrasound Impressions 11/05/2023 11:28 AM TRAFFIC SUPERVISOR Ultrasound-guided diagnostic and therapeutic paracentesis. NR Narrative 11/05/2023 11:28 AM TRAFFIC SUPERVISOR EXAM: US PARACENTESIS WITH IMAGING GUIDANCE PRE-PROCEDURE: [...] lower quadrant peritoneal space. Needle size: 5 Eritrean centesis catheter. Volume aspirated: 6.8 liters aspirated, [...] lower quadrant peritoneal space. Needle size: 5 Eritrean centesis catheter. Volume aspirated: 6.8 liters aspirated, [...] and therapeutic paracentesis. NR Felipe Morales M.D. [facility] US PROCEDURES * Cell Count and Differential, Body Fluid (11/05/2023 10:07 AM TRAFFIC SUPERVISOR) Fluid Type Peritoneal /Paracente sis 11/05/2023 11:13 AM TRAFFIC SUPERVISOR DHPM Gross Appearance Serous 11/05/19 24 11:13 AM TRAFFIC SUPERVISOR DHPM Total Nucleated Cells 282 /mcL 11/05/2023 11:13 AM TRAFFIC SUPERVISOR DHPM Comment: ----REFERENCE VALUE---- Synovial: <150 /mcL Peritoneal: <500 /mcL Pleural: <500 /mcL Pericardial: <500 /mcL ----ADDITIONAL INFORMATION---- This test has been modified from the medical front desk coordinator's instructions. Its performance characteristics were determined by [facility] in a manner consistent with CLIA requirements. This test has not been cleared or approved by the U.S. Food and Drug Administration. Neutrophils 3 % 11/05/2023 12:54 PM TRAFFIC SUPERVISOR DHPM Comment: ----REFERENCE VALUE---- Synovial: <25% Peritoneal: <25% Pleural: <25% Pericardial: <25% Lymphocytes 26 Synovial <75% % 11/05/2023 12:54 PM TRAFFIC SUPERVISOR DHPM Monocytes/Macropha ges 64 Synovial <70% % 11/05/2023 12:54 PM TRAFFIC SUPERVISOR DHPM Other Cells 7 % 11/05/2023 12:54 PM TRAFFIC SUPERVISOR DHPM Comment: ----REFERENCE VALUE---- The reference range and other method performance specifications have not been established for this bodyfluid. The test result must be integrated into the clinical context for interpretation. Other Cells Are: See Comment 11/05/2023 12:54 PM TRAFFIC SUPERVISOR DHPM Comment:Mesothelial cells Comment See Comment 11/05/2023 12:54 PM TRAFFIC SUPERVISOR DHPM Comment:No blasts or maligna nt cells seen.Erythrophagocytosis present. Reviewed by: Jose 11/05/2023 12:54 PM TRAFFIC SUPERVISOR DHPM Fluid (Peritoneal Fluid) 11/05/2023 10:07 AM TRAFFIC SUPERVISOR Narrative Authorizing Provider Result Enio Morales M.D. LAB BODY FLUIDS AND STOOLS ORDERABLES [address] [address], [facility] [address] [place] [address] * Bacterial Culture, Aerobic + Susceptibility (11/05/2023 10:07 AM TRAFFIC SUPERVISOR) Bacterial Culture, Aerobic + Susc No growth after 5 days of incubation. 2023 7:33 AM TRAFFIC SUPERVISOR DTL Fluid (Peritoneal Fluid) 11/05/2023 10:07 AM TRAFFIC SUPERVISOR Narrative [facility] - 2023 7:33 AM TRAFFIC SUPERVISOR Bacterial Culture: Received Bactec aerobic and Bactec anaerobic bottles Felipe Morales M.D. LAB MICROBIOLOGY - GENERAL ORDERABLES [facility] [address] [place] [address], [place] DTL [facility] [address] [place] [address] documented in this encounter Visit Diagnoses Diagnosis [...] 100 mL/hr New Bag 11/05/2023 10:39 AM TRAFFIC SUPERVISOR 25 g albumin human 25 % injection 25 g 25 g, intravenous, Once, On Wed11/05/23 at 1130, For 1 dose, If no infusion rate specified: Administer the 25% solution at 100 mL/hr New Bag 11/05/2023 11:20 AM TRAFFIC SUPERVISOR 25 g lidocaine 10 mg/mL (1 %) injection (XYLOCAINE) As needed, Starting on Wed11/05/23 at 1023, Intra-Op Given 11/05/2023 10:23 AM TRAFFIC SUPERVISOR 10 mL Abdominal Tissue documented in this encounter Active and Recently Administered Medications Times are shown in TRAFFIC SUPERVISOR. Scheduled Medication Order 11/03/2023 11/04/2023 11/05/2023 albumin [...] Total Score: 3 10/20/19 24 7:30 AM TRAFFIC SUPERVISOR documented as of this encounter
--- OUTSIDE RECORDS SUMMARY | 2024-02-03 11:28 | XMS_ITS | Encounter Summary ---
Author Organization [facility] Address [address] [place] [address] Care Team Providers Care Director Export Name Role Phone Unavailable Primary Care Provider Unavailabl e Reason for Referral * Outpatient (Routine) - Closed Specialty Diagnoses / Procedures Referred By Dotty t Referred To Contact Nicotine Dependence Sudha Bernstein M.A., DonnS.Dameon., C.T.T.S. [address] [place] [phone] [facility] Referral ID Status Reason Start Date Expiration Date Visits Re quested Visits Authorized [id number] Closed 10/28/2023 04/28/2025 1 1 Scheduling Instructions Please schedule this patient for a follow up phone visit. S MARKETING COORDINATOR Encounter Details Date Type Department Care Team (Late st Contact Info) Description 10/28/2023 Orders Only Department of Nicotine Dependence, [facility] in [place], [place] [address] [place] [phone] Sudha Bernstein M.A., Edwin.S.W., C.T.T.S. [address] [place] [phone] Social History Tobacco Use Types Packs/Day Years Used Date Smoking Tobacco: Every Day Cigarettes 0.5 40 Smokeless Tobacco: Never Alcohol Use Standard Drinks/Week Comments Not Currently 0 (1 standard drink = 0.6 oz pur e alcohol) [facility] Utilities Answer Date Recorded In the past 12 months has th e [employer], gas, oil, or water company threatened to [...] Assigned at Female 10/06/2023 10:50 AM SALES MARKETING COORDINATOR Gender Identity Female 10/06/2023 10:50 AM SALES MARKETING COORDINATOR Sexual Orientation Straight 10/06/2023 10 :50 AM SALES MARKETING COORDINATOR documented as of this encounter Plan of Treatment Scheduled Referrals Name Type Priority Associated Diagnoses Order Schedule Nicotine Dependence office visit (clinic) Outpatient Referral Routine Expected: 11/11/2023, Expires: 01/25/2025 documented as of this encounter Visit Diagnoses Not on filedocumented in this encounter Additional Health Concerns Assessment Noted Time PHQ-9 Depression Total Score: 3 10/20/19 24 7:30 AM SALES MARKETING COORDINATOR documented as of this encounter
== END 2024-01-31 13:17 | disposition home or self-care (01) ==
LOC: AMB 02-03 11:23
PROVIDERS: PCP Family Medicine; Visit Provider Family Medicine
DX: R53.1 Weakness (principal); S09.90XA Unspecified injury of head, initial encounter; W18.30XA Fall on same level, unspecified, initial encounter; Y92.009 Unspecified place in unspecified non-institutional (private) residence as the place of occurrence of the external cause
CPT/HCPCS: A0425; A0427

== ENCOUNTER 2024-01-31 13:48 | Inpatient (IN) | payer BC, SELFPAY ==
[2024-01-31] VITALS (22 sets, daily range): BP systolic 98–116; BP diastolic 48–59; PULSE 90–96; RESP 16–20; TEMP 36.7–36.8; O2SAT 98–100
--- NOTE | 2024-01-31 14:08 | ED.GENADULT ---
HPI - General Adult General Date Seen: 01/31/24 Chief complaint: Weakness Stated complaint: Weakness, falls Time Seen by Provider: 01/31/24 13:52 Source: patient, EMS, RN notes reviewed and old records reviewed Mode of arrival: EMS Limitations: no limitations History of Present Illness HPI narrative: Patient is a 63-year-old woman brought in for evaluation of weakness and falls. She has a history of alcoholic cirrhosis, has been getting paracentesis down at [facility] for the past 5-6 months. History GI bleeding, perianal abscess with fistula, gastric varices. She has been seen here several times with weakness and falls, significant anemia, tells me that the past few days she has been feeling weaker, decreased appetite, not eating or drinking very much. Has had a couple of falls, denies injury. Did hit her head once, denies loss of consciousness, headache, nausea vomiting. She denies any black or bloody stools, diarrhea, fevers, cough, difficulty breathing or chest pain. She says that her has been trying to talk her into assisted living, she does not want to go. 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 Acknowledges that her says that it is getting very difficult to manage at home. Related Data Home Medications Medication Instructions Recorded Confirmed furosemide 40 mg tablet 40 mg PO DAILY 11/16/23 01/31/24 rifaximin 550 mg tablet (Xifaxan) 550 mg PO BID 12/10/23 01/31/24 spironolactone 100 mg tablet 50 mg PO DAILY 12/10/23 01/31/24 lactulose 10 gram/15 mL oral 30 ml PO Q12H 12/23/23 01/31/24 solution Previous Rx's Medication Instructions Recorded trazodone 50 mg tablet 50 - 100 mg (1 - 2 x 50 mg) PO QPM 12/23/23 #60 tabs pantoprazole 40 mg tablet,delayed 40 mg PO BID #60 tabs 01/17/24 release (Protonix) albumin, human 25 % 25 % 50 g IV ONCE 01/27/24 intravenous solution Allergies Allergy/AdvReac Type Severity Reaction Status Date / Time No Known Drug Allergies Allergy Verified 01/31/24 14:02 Review of Systems Status of ROS: Reports: 10 or more systems reviewed and unremarkable except as noted in History and below [facility] Medical History (Updated 01/31/24 @ 17:21 by Eva Selby MD) History of echocardiogram ?Z92.89 - Personal history of other medical treatment (ICD-10) Esophageal varices ?I85.00 - Esophageal varices without bleeding (ICD-10) Duodenal ulcer (12/03/23) ?K26.9 - Duodenal ulcer, unspecified as acute or chronic, without hemorrhage or perforation (ICD-10) Hyponatremia ?E87.1 - Hypo-osmolality and hyponatremia (ICD-10) Ascites ?R18.8 - Other ascites (ICD-10) Perianal abscess ?K61.0 - Anal abscess (ICD-10) Liver lesion ?K76.9 - Liver disease, unspecified (ICD-10) Cirrhosis of liver ?K74.60 - Unspecified cirrhosis of liver (ICD-10) Tobacco abuse ?Z72.0 - Tobacco use (ICD-10) Primary hypertension ?I10 - Essential (primary) hypertension (ICD-10) Health care directive on file ?Z78.9 - Other specified health status (ICD-10) Depression ?F32.A - Depression, unspecified (ICD-10) Tubular adenoma of colon ?D12.6 - Benign neoplasm of colon, unspecified (ICD-10) Surgical History History of breast biopsy ?Z98.890 - Other specified postprocedural states (ICD-10) History of abdominal hysterectomy ?Z90.710 - Acquired absence of both cervix and uterus (ICD-10) Family History Father High blood pressure Lymphoma Mother High blood pressure Social History Narrative: patient admits to smoking and drinking alcohol. 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 Reviewed for scanning to medical record on 04/17/2020 What is your current living situation?: I presently have a place to live Problems where you live: no known problems In the past 12 months, utilities in danger of being shut off: no In past 12 months, lack of transportation kept you from medical appts, meetings, work, or getting things needed for daily living: no In the past 12 mos, have been you worried that your food would run out before you had money to buy more?: never true In the past 12 mos, the food you bought just didn't last and you didn't have money to buy more?: never true Smoking Status: Current every day smoker What tobacco products do you use: cigarettes Do you use any of these nicotine containing products: None Second hand tobacco smoke exposure: No How often do you have a drink containing alcohol: 4 or more times a week How many standard drinks containing alcohol do you have on a typical day: 1 or 2 How often do you have six or more drinks on one occasion: Never AUDIT-C Alcohol total score: 4 Non-prescribed substance use: marijuana (any form) How often does anyone, including family, friends and others, physically hurt you: never How often does anyone, including family, friends and others, insult or talk down to you: never How often does anyone, including family, friends and others, threaten you with harm: never How often does anyone, including family, friends and others, scream or curse at you: never Little interest or pleasure in doing things: several days Feeling down, depressed, or hopeless: several days service: No Exam Narrative: Exam Narrative: Vital signs as noted above. In general, an alert, nontoxic, chronically ill-appearing woman. Thin. Head: Normocephalic, atraumatic. Eyes: Pupils are equal reactive. Extraocular movements are full. Scleral icterus. ENT: Mucous membranes are somewhat dry. Neck: Supple without lymphadenopathy. Heart: Regular rate and rhythm. No murmur or rub. Lungs: Clear bilaterally. No increased work of breathing, crackles or wheezes. Abdomen: Soft, mildly distended, nontender to palpation. Extremities: Well perfused. No edema. No calf tenderness. Pulses intact. She is covered with bruises/subcutaneous bleeding, a couple small skin tears on her legs. No active bleeding. Neurologic: Patient is alert and oriented to person and place. Speech is fluent. Face is symmetric. Moves all extremities equally. Affect: Flat. Skin: Warm and dry. Well perfused. Const: Vital Signs, click to edit/add: Vital Signs - 24 hr 01/31/24 13:56 01/31/24 14:01 01/31/24 14:01 Temperature 98.3 F Pulse Rate 94 94 Pulse Rate [Right Pulse Oximeter] 95 Respiratory Rate 18 Blood Pressure 116/55 L 116/55 L Blood Pressure [Ri ght Upper Arm] 116/55 L Pulse Oximetry 100 100 100 Oxygen Delivery Me thod Room Air 01/31/24 14:02 01/31/24 14:15 01/31/24 14:42 Temperature Pulse Rate 94 95 91 Pulse Rate [Right Pulse Oximeter] Respiratory Rate Blood Pressure Blood Pressure [Ri ght Upper Arm] Pulse Oximetry 100 100 100 Oxygen Delivery Me thod 01/31/24 14:46 01/31/24 14:57 01/31/24 15:00 Temperature Pulse Rate 94 91 91 Pulse Rate [Right Pulse Oximeter] Respiratory Rate Blood Pressure 98/50 L Blood Pressure [Ri ght Upper Arm] Pulse Oximetry 100 100 100 Oxygen Delivery Me thod 01/31/24 15:01 01/31/24 15:15 01/31/24 15:16 Temperature Pulse Rate 90 91 94 Pulse Rate [Right Pulse Oximeter] Respiratory Rate Blood Pressure 101/51 L 115/59 L Blood Pressure [Ri ght Upper Arm] Pulse Oximetry 100 100 100 Oxygen Delivery Me thod 01/31/24 15:17 01/31/24 15:30 01/31/24 15:31 Temperature Pulse Rate 91 92 91 Pulse Rate [Right Pulse Oximeter] Respiratory Rate Blood Pressure 113/51 L Blood Pressure [Ri ght Upper Arm] Pulse Oximetry 100 100 100 Oxygen Delivery Me thod 01/31/24 15:45 01/31/24 16:00 01/31/24 16:00 Temperature Pulse Rate 93 95 Pulse Rate [Right Pulse Oximeter] Respiratory Rate 16 Blood Pressure Blood Pressure [Ri ght Upper Arm] Pulse Oximetry 100 100 Oxygen Delivery Me thod 01/31/24 16:02 01/31/24 16:03 Temperature Pulse Rate 95 95 Pulse Rate [Right Pulse Oximeter] Respiratory Rate Blood Pressure 106/49 L Blood Pressure [Ri ght Upper Arm] Pulse Oximetry 100 100 Oxygen Delivery Me thod Documenting provider has reviewed patient's vital signs: yes Course Course ED Course: Records were reviewed, we will go ahead and evaluate her today for acute problems, dehydration, anemia, electrolyte abnormalities, infection, acute coronary syndrome etcetera. I do think there is a strong component of chronic illness to this, discussed with her that she is likely reaching a point where staying at home is simply not going to be an option. However, review of her records shows that previous visits have been associated with significant anemia as well as electrolyte disturbances. Labs today show a white blood cell count of 6.6, hemoglobin today is 7.5, which is down just a little bit from a few weeks ago when it was 8.2. Platelet count 36545. Sodium was down to 121 today, chloride of 87, other electrolytes within normal limits. Lactate was elevated at 4.3. LFT showed total bilirubin of 3, direct 0.9, AST is 71, ALT of 26, alk-phos of 131. CRP mildly elevated at 1.9, lipase normal at 203. Blood alcohol negative. Point of care troponin was 0. EKG showed a normal sinus rhythm, ventricular rate of 96. Some nonspecific ST changes no evidence of acute ischemia. Corrected QT of 477 milliseconds. I do think she would benefit from correction of her sodium and hemoglobin. She does not describe any GI bleeding today. In talking with hospitalist here, does sound like she had and duodenal ulcer which was injected at when she was transferred to [place] in November. I talked with [facility], they do not have any beds available and the GI service is capped, so we will keep her here, transfuse, observe, trend hemoglobins, work on sodium. Type and screen ordered. Vital Signs Vital signs: Initial Vital Signs Temperature 98.3 F 01/31/24 13:56 Temperature Source Temporal Artery Scan 01/31/24 13:56 Pulse Rate 95 01/31/24 13:56 Pulse Rhythm Regular 01/31/24 13:56 Respiratory Rate 18 01/31/24 13:56 Blood Pressure 116/55 L 01/31/24 13:56 Blood Pressure Mean 75 01/31/24 13:56 Blood Pressure Position Semi-Fowlers 01/31/24 13:56 Pulse Oximetry 100 01/31/24 13:56 Oxygen Delivery Method Room Air 01/31/24 13:56 Vital Signs Temperature 98.3 F 01/31/24 13:56 Pulse Rate 95 01/31/24 13:56 Respiratory Rate 18 01/31/24 13:56 Blood Pressure 116/55 L 01/31/24 13:56 Pulse Oximetry 100 01/31/24 13:56 Oxygen Delivery Method Room Air 01/31/24 13:56 Temperature 98.3 F 01/31/24 13:56 Pulse Rate 95 01/31/24 16:03 Respiratory Rate 16 01/31/24 16:00 Blood Pressure 106/49 L 01/31/24 16:02 Pulse Oximetry 100 01/31/24 16:03 Oxygen Delivery Method Room Air 01/31/24 13:56 Medications Administered Medications: Discontinued Medications Generic Name Dose Route Start Last Admin Trade Name Freq PRN Reason Stop Dose Admin Sodium Chloride 500 mls @ 500 mls/hr 01/31/24 14:05 01/31/24 15:00 0.9 % Sodium Chloride 500 Ml IV 01/31/24 15:04 500 mls/hr .Q1H ONE Administration Medical Decision Making Lab Data Labs: Lab Results 01/31/24 01/31/24 01/31/24 Range/Units 14:33 14:41 16:05 WBC 6.61 (4.50-11.00) K/uL RBC 2.28 L (4.00-5.20) m/uL Hgb 7.5 L* (12.0-16.0) gm/dL Hct 22.0 L (33.0-51.0) % MCV 97 (80-100) fL MCH 33 (26-34) pg MCHC 34 (32-36) gm/dL RDW Coeff of Katt 17.9 H (11.5-15.5) % Plt Count 50 L (140-440) K/uL Neut % (Auto) 63.8 (42.0-72.0) % Lymph % (Auto) 24.4 (20-44) % [place] % (Auto) 10.4 (0.0-11.0) % Eos % (Auto) 0.3 (0.0-7.0) % Baso % (Auto) 0.2 (0.0-3.0) % Neut # (Auto) 4.22 (1.7-7.0) K/uL Lymph # (Auto) 1.61 (0.90-2.90) K/uL [place] # (Auto) 0.70 (0.00-0.90) K/UL Eos # (Auto) 0.02 (0.00-0.50) K/uL Baso # (Auto) 0.01 (0.00-0.30) K/uL Abs Immat Gran (auto) 0.06 (0.00-0.30) K/uL Imm/Tot Granulo (auto) 0.9 % VBG pH 7.497 H (7.32-7.43) VBG pCO2 35 L (40-50) mmHG VBG pO2 39.2 (25-47) mmHG VBG HCO3 27 (21-28) mmol/L Sodium 121 L* (135-149) mmol/L Potassium 4.3 (3.6-5.1) mmol/L Chloride 87 L (96-114) mmol/L Carbon Dioxide 24 (20-32) mmol/L Anion Gap 10 (7-15) mEq/L BUN 19 (7-30) mg/dL Creatinine 0.8 (0.5-1.5) mg/dL Estimated GFR 83 ml/min Glucose 122 H (60-115) mg/dL Lactate 4.3 H* (0.5-1.9) mmol/L Calcium 7.8 L (8.4-10.6) mg/dL Magnesium 4.4 H* (1.5-2.6) mg/dL Total Bilirubin 2.9 H (0.1-1.5) mg/dL Direct Bilirubin 0.9 H (0.0-0.5) mg/dL AST 71 H (12-35) U/L ALT 26 (4-35) U/L Alkaline Phosphatase 131 (40-150) U/L C-Reactive Protein 1.9 H (0.5-1.0) mg/dL Total Protein 8.5 H (6.0-8.3) g/dL Albumin 3.8 (3.3-5.0) g/dL Lipase 203 (23-300) U/L Ethyl Alcohol < 0.01 L (0.01-0.03) % POC Troponin I 0.00 L (0.01-0.04) ng/ml Blood Type A Positive Antibody Screen NEGATIVE Discharge Plan Discharge Clinical Impression: Alcoholic liver disease, Anemia, Hyponatremia Patient Disposition: Admitted As Observation Condition: Stable
--- OUTSIDE RECORDS SUMMARY | 2024-01-31 14:17 | XMS_ITS ---
Author Name Unknown Organization [facility] Address [address] [place] [address] Care Team Providers Care Cotton Header Name Role Phone Unavailable Unavailable Unavailable Surgery Details Not on file Complications Check Surgery Details section. Procedure Estimated Blood Loss Check Surgery Details section. Procedure Findings Check Surgery Details section. Procedure Specimens Taken Check Surgery Details section.
--- OUTSIDE RECORDS SUMMARY | 2024-01-31 14:17 | XMS_ITS | Clinical Summary ---
Author Name Unknown Organization [facility] Address [address] [place] [address] Care Team Providers Care Cofounder Name Role Phone Elsewhere, Pcp Primary Care Provider Unavailabl e Source Comments Patient records contain information from all sites at [facility]. For routine questions regarding patient records, call [phone] during business hours, M-F 8:00 AM - 5:00 PM Central Time. Record requests for emergency care only can be directed to [phone] at any time.[facility] Allergies No known active allergies [...] 01/25/2024 Clinical Communication Division of Gastroenterology in [place], [place] [address] [place] [address] Katja Umana M.D. 01/14/2024 Clinical Communication Division of Gastroenterology in [place], [place] [address] [place] [phone] Katja Umana M.D. 12/29/2023 Clinical Communication [facility] in [place], [place] [address] [place] [address] Katja Umana M.D. Phone Contact (Friends and family authorization ) 12/28/2023 Clinical Communication Division of Gastroenterology in [place], [place] [address] [place] [phone] Katja Umana M.D. 12/21/2023 Clinical Communication Brent Alvarenga [facility] Transplantation and Clinical Regeneration in [place], [place] [address] [place] [phone] Katja Umana M.D. 12/20/2023 2:00 PM CDT Virtual Visit Department of Nicotine Dependence, [facility], in [place], [place] [address] [place] [address] Sudha Bernstein M.A., Jerome., C.T.T.S. Nicotine Dependence Cigarettes With Withdrawal (Primary Dx) 12/20/2023 Orders Only Department of Nicotine Dependence, [facility] in [address] [address] Sudha Bernstein M.A., Jerome., C.T.T.S. 12/20/2023 Clinical Communication Division of Gastroenterology in [address] [address] Katja Umana M.D. Scheduling 12/16/2023 9:34 AM CDT - 12/16/2023 11:22 AM CDT Hospital Encounter Department of Radiology, [facility], in [address] [address] Katja Umana M.D. Alcoholic Cirrhosis Of Liver With Ascites (HCC); Ascites Discharge Disposition: Home or Self Care 12/09/2023 4:30 PM CDT Office Visit [facility][note 3] for Transplantation and Clinical Regeneration in [address] [address] Katja Umana M.D. Olson, Jody C, M.D. Alcoholic Cirrhosis Of Liver With Ascites (HCC) (Primary Dx); Ascites; Sarcopenia 12/08/2023 10:30 AM CDT Comprehensive Visit Section of Infectious Diseases in [address] [address] Katja Umana M.D. Brianan Anglin APRN, C.N.P., D.N.P. 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 Order Request 11/19/2023 10:08 AM PRODUCT SUPPORT SPECIALIST - 11/19/2023 12:51 PM PRODUCT SUPPORT SPECIALIST Hospital Encounter Department of Radiology, [place], [place] [address] [place] [address] Felipe Morales M.D. Ascites Discharge Disposition: Home or Self Care 11/18/2023 11:00 AM PRODUCT SUPPORT SPECIALIST Virtual Visit Department of Nicotine Dependence, [place], [place] [address] [place] [phone] Sudha Bernstein M.A., L.I.C.S.W., C.T.T.S. Nicotine Dependence Cigarettes With Withdrawal (Primary Dx) 11/18/2023 Orders Only Department of Nicotine Dependence, [place], [place] [address] [place] [phone] Sudha Bernstein M.A., Yesy.I.C.S.W., C.T.T.S. 11/11/2023 11:00 AM PRODUCT SUPPORT SPECIALIST Virtual Visit Department of Nicotine Dependence, [facility] in [place], [place] [address] [place] [address] Sudha Bernstein M.A., Yesy.I.C.S.W., C.T.T.S. Nicotine Dependence Cigarettes With Withdrawal (Primary Dx) 11/11/2023 Orders Only Department of Nicotine Dependence, [place], [place] [address] [place] [address] Sudha Bernstein M.A., L.I.C.S.W., C.T.T.S. 11/11/2023 Clinical Communication Department of Nicotine Dependence, [place], [place] [address] [place] [address] Sudha Bernstein M.A., Yesy.I.C.S.W., C.T.T.S. [place] Med Request 11/05/2023 9:29 AM PRODUCT SUPPORT SPECIALIST - 11/05/2023 12:20 PM PRODUCT SUPPORT SPECIALIST Hospital Encounter Department of Radiology, [facility], in [place], [place] [address] [place] [address] Felipe Morales M.D. 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 I have a [facility] place to live 10/15/2023 Sex and Gender Information Value Date Recorded Sex Assigned at Female 10/06/2023 10:50 AM PRODUCT SUPPORT SPECIALIST Gender Identity Female 10/06/2023 10:50 AM PRODUCT SUPPORT SPECIALIST Sexual Orientation Straight 10/06/2023 10 :50 AM PRODUCT SUPPORT SPECIALIST Last Filed Vital Signs Vital Sign Reading Time Taken Comments Blood Pressure 101/47 12/16/2023 10:52 AM CDT Pulse 77 12/16/2023 10:30 AM CDT Temperature 34.7 ??C (94.5 ??F) 12/09/2023 4:21 PM CD T Respiratory Rate 10/08/2023 4:16 PM PRODUCT SUPPORT SPECIALIST Oxygen Saturation 100% 12/16/2023 10:30 AM [...] PM CDT Appointment Division of Gastroenterology in [place], [place] [address] [place] [phone] Katja Umana M.D. 200 [place] [phone] Hayden Smith M.D. [address] [place] [phone] 03/21/2024 1:00 PM CDT Virtual Visit Department of Nicotine Dependence, [facility], in [place], [place] [address] [place] [phone] Health Maintenance Due Date Last Done Comments [...] inpatients and all outpatients) 11/19/2023 11:55 AM PRODUCT SUPPORT SPECIALIST Ascites CELL COUNT AND DIFFERENTIAL, BF Timed 11/19/2023 10:50 AM PRODUCT SUPPORT SPECIALIST Ascites BACTERIAL CULTURE, AEROBIC + SUSC Timed 11/19/2023 10:50 AM PRODUCT SUPPORT SPECIALIST Ascites US PARACENTESIS WITH IMAGING GUIDANCE RAD - Routine (most inpatients and all outpatients) 11/05/2023 11:25 AM PRODUCT SUPPORT SPECIALIST Ascites CELL COUNT AND DIFFERENTIAL, BF Timed 11/05/2023 10:07 AM PRODUCT SUPPORT SPECIALIST Ascites BACTERIAL CULTURE, AEROBIC + SUSC Timed 11/05/2023 10:07 AM PRODUCT SUPPORT SPECIALIST Ascites HCV AB SCRN W/REFLEX TO HCV PCR, S Routine 10/06/2023 12:17 PM PRODUCT SUPPORT SPECIALIST Alcoholic Cirrhosis Of Liver With Ascites (HCC) COLONOSCOPY Routine 10/10/2015 2:45 PM PRODUCT SUPPORT SPECIALIST from Last 3 Months or Most [...] DIAGNOSIS: Ascites IMPRESSION: Ultrasound-guided paracentesis. EP Katja mUana M.D. IMG US PROCEDURES * (ABNORMAL) Prothrombin [...] CDT Katja Umana M.D. LAB BLOOD ADD-ON [address] [address], [facility] [address] [address] * (ABNORMAL) CBC with Differential, Blood (12/09/2023 [...] CDT Katja Umana M.D. LAB BLOOD ADD-ON [facility] [address] [place] [address], [facility] DTL [facility] [address] [place] [address] [facility] [address] [place] [address] * (ABNORMAL) Comprehensive Metabolic Panel (12/09/2023 5:16 PM CDT) [facility] Potassium, S 5.0 3.6 - 5.2 [...] CDT Katja Umana M.D. LAB BLOOD ADD-ON [facility] [address] [place] [address], [facility] [address] [place] [address] * Bacterial Culture, Aerobic + Susceptibility (11/19/2023 10:50 AM PRODUCT SUPPORT SPECIALIST) Only the most recent of2 resultswithin the time period is included. Bacterial Culture, Aerobic + Susc No growth after 5 days of incubation. 11/24/2023 8:27 AM CDT DTL Fluid (Peritoneal Fluid) 11/19/2023 10:50 AM PRODUCT SUPPORT SPECIALIST Narrative [facility] - 11/24/2023 8:27 AM CDT Bacterial Culture: Received Bactec aerobic and Bactec anaerobic bottles Felipe Morales M.D. LAB MICROBIOLOGY - GENERAL ORDERABLES [facility] [address] [place] [address], [facility] [address] [place] [address] * Cell Count and Differential, Body Fluid (11/19/2023 10:50 AM PRODUCT SUPPORT SPECIALIST) Only the most recent of2 resultswithin the time period is included. Fluid Type Peritoneal /Paracente sis 11/19/2023 12:39 PM PRODUCT SUPPORT SPECIALIST DHPM Gross Appearance Serous 11/19/19 24 12:39 PM PRODUCT SUPPORT SPECIALIST [facility] Total Nucleated Cells 201 /mcL 11/19/2023 12:39 PM PRODUCT SUPPORT SPECIALIST [facility] Comment: ----REFERENCE VALUE---- Synovial: <150 /mcL Peritoneal: <500 /mcL Pleural: <500 /mcL Pericardial: <500 /mcL ----ADDITIONAL INFORMATION---- This test has been modified from the testing and regulating technician's instructions. Its performance characteristics were determined by [facility] in a manner consistent with CLIA requirements. This test has not been cleared or approved by the U.S. Food and Drug Administration. Neutrophils 20 % 11/19/2023 1:42 PM PRODUCT SUPPORT SPECIALIST [facility] Comment: ----REFERENCE VALUE---- Synovial: <25% Peritoneal: <25% Pleural: <25% Pericardial: <25% Lymphocytes 16 Synovial <75% % 11/19/2023 1:42 PM PRODUCT SUPPORT SPECIALIST [facility] Monocytes/Macropha ges 60 Synovial <70% % 11/19/2023 1:42 PM PRODUCT SUPPORT SPECIALIST PM Other Cells 4 % 11/19/2023 1:42 [address] SPECIALIST [facility] Comment: ----REFERENCE VALUE---- The reference range and other method performance specifications have not been established for this bodyfluid. The test result must be integrated into the clinical context for interpretation. Other Cells Are: See Comment 11/19/2023 1:42 PM PRODUCT SUPPORT SPECIALIST PM Comment:Mesothelial cells Comment See Comment 11/19/2023 1:42 PM PRODUCT SUPPORT SPECIALIST [facility] Comment:No blasts or maligna nt cells seen. Reviewed by: Jose 11/19/2023 1:[address] [facility] Fluid (Peritoneal Fluid) 11/19/2023 10:50 AM PRODUCT SUPPORT SPECIALIST Felipe Morales M.D. LAB BODY FLUIDS AND STOOLS ORDERABLES Performing Organization Address [facility]/ZIP Co de Phone Number [facility] [address] [place] [address], [facility] [address] [place] [address] * HCV Ab Scrn w/Reflex to HCV PCR, Serum (10/06/2023 12:17 PM PRODUCT SUPPORT SPECIALIST) HCV Ab Screen, S Negative Negative 10/06/2023 9:12 PM PRODUCT SUPPORT SPECIALIST [facility] Comment:Bhdqen-ma-hgfzqt rat io is <1.00. Blood (Blood, Venous) 10/06/2023 12:17 PM PRODUCT SUPPORT SPECIALIST 10/06/2023 3:57 PM PRODUCT SUPPORT SPECIALIST Katja Umana M.D. LAB MICROBIOLOGY - B LOOD ORDERABLES [facility] [address] [place] [address] [facility] [address] [place] [address] * Colonoscopy (10/10/2015 2:45 PM PRODUCT SUPPORT SPECIALIST) 10/10/2015 2:45 PM PRODUCT SUPPORT SPECIALIST Tanner VoraSPetros GI PROCEDURE NATY CHIANG [facility] [address] [place] [address], [facility] from Last 3 Months or Most Recently Relevant to Health Maintenance Care Teams Cofounder Relationship Specialty Start Date End Date Elsewhere, Pcp PCP - General Family Medicine 12/07/23
--- OUTSIDE RECORDS SUMMARY | 2024-01-31 14:17 | XMS_ITS | Encounter Summary ---
Author Name Unknown Organization [facility] Address [address] [place] [address] Care Team Providers Care Forestry Crew Chief Name Role Phone Elsewhere, Pcp Primary Care Provider Unavailabl e Reason for Visit * Reason Onset Date Comments Phone Contact 12/29/2023 Friends and fami ly authorization Encounter Details Date Type Department Care Team (Latest Contact Info) Description 12/29/2023 Clinical Communication [facility] [place], [place] [address] [place] [address] Katja Umana M.D. [address] [place] [address] Phone Contact (Friends and family authorization ) Social History Tobacco Use Types Packs/Day Years Used Date Smoking Tobacco: Every Day Cigarettes 0.5 41 Started: 02/11/1983 Passive Smoke Exposure: Never Smokeless Tobacco: Never Alcohol Use Standard Drinks/Week Comments Not Currently 0 (1 standard drink = 0.6 oz pur e alcohol) [facility] Utilities Answer Date Recorded In the past 12 months has e [employer], gas, oil, or water [employer] threatened to shut off services in [...] Date Recorded Employment status Working with temporary [employer] 10/15/2023 Housing Stability Answer Date Recorded What is your living situation today? I have a [facility] place to live 10/15/2023 Sex and Gender Information Value Date Recorded Sex Assigned at Female 10/06/2023 10:50 AM INDUSTRIAL HYGENIST Gender Identity Female 10/06/2023 10:50 AM INDUSTRIAL HYGENIST Sexual Orientation Straight 10/06/2023 10 :50 AM INDUSTRIAL HYGENIST documented as of this encounter Plan of Treatment Upcoming Encounters Date Type Department Care Team (Late st Contact Info) Description 02/04/2024 2:15 PM CDT Appointment Division of Gastroenterology in [place], [place] [address] [place] [address] Katja Umana M.D. [address] [place] [address] Hayden Smith M.D. [address] [place] [address] 03/21/2024 1:00 PM CDT Virtual Visit Department of Nicotine Dependence, [place], in [place], [place] [address] [place] [address] documented as of this encounter Visit Diagnoses Not on filedocumented in this encounter Additional Health Concerns Assessment Noted Time PHQ-9 Depression Total Score: 3 10/20/19 24 7:30 AM INDUSTRIAL HYGENIST documented as of this encounter Care Teams Forestry Crew Chief Relationship Specialty Start Date End Date Elsewhere, Pcp PCP - General Family Medicine 12/07/23 documented as of this encounter
--- OUTSIDE RECORDS SUMMARY | 2024-01-31 14:17 | XMS_ITS | Referral Summary ---
Author Name Unknown Organization [facility] Address [address] [place] [id number] Care Team Providers Care Automatic Buffer Name Role Phone Elsewhere, Pcp Primary Care Provider Unavailabl e Source Comments Patient records contain information from all sites at [facility]. For routine questions regarding patient records, call [phone] during business hours, M-F 8:00 AM - 5:00 PM Central Time. Record requests for emergency care only can be directed to [phone] at any time.[facility] Encounters Date Type Department Care Team Description 01/25/2024 Clinical Communication Division of Gastroenterology in [place], [place] [address] [place] [address] Katja Umana M.D. 01/14/2024 Clinical Communication Division of Gastroenterology in [place], [place] [address] [place] [address] Katja Umana M.D. 12/29/2023 Clinical Communication [facility] [place], [place] [address] [place] [address] Katja Umana M.D. Phone Contact (Friends and family authorization ) 12/28/2023 Clinical Communication Division of Gastroenterology in [place], [place] [address] [place] [address] Katja Umana M.D. 12/21/2023 Clinical Communication [facility] in [place], [place] [address] [place] [address] Katja Umana M.D. 12/20/2023 Orders Only Department of Nicotine Dependence, [facility], in [place], [place] [address] [place] [phone] Sudha Bernstein M.A., Jerome., C.T.T.S. 12/20/2023 Clinical Communication Division of Gastroenterology in [address] [address] Katja Umana M.D. Scheduling 12/20/2023 2:00 PM CDT Virtual Visit Department of Nicotine Dependence, [facility] in [place], [place] [address] [place] [phone] Sudha Bernstein M.A., Jerome., C.T.T.S. Nicotine Dependence Cigarettes With Withdrawal (Primary Dx) 12/16/2023 9:34 AM CDT - 12/16/2023 11:22 AM CDT Hospital Encounter Department of Radiology, [facility] in [address] [address] Katja Umana M.D. Alcoholic Cirrhosis Of Liver With Ascites (HCC); Ascites Discharge Disposition: Home or Self Care 12/09/2023 4:30 PM CDT Office Visit [facility] in [address] [address] Katja Umana M.D. Olson, Jody C, M.D. Alcoholic Cirrhosis Of Liver With Ascites (HCC) (Primary Dx); Ascites; Sarcopenia 12/08/2023 10:30 AM CDT Comprehensive Visit Section of Infectious Diseases in [address] [phone] Katja Umana M.D. Brianna Anglin APRN, C.N.P., D.N.P. 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 Order Request 11/19/2023 10:08 AM YOUTH PROGRAM DIRECTOR - 11/19/2023 12:51 PM YOUTH PROGRAM DIRECTOR Hospital Encounter Department of Radiology, [facility] in [address] [address] Felipe Morales M.D. Ascites Discharge Disposition: Home or Self Care 11/18/2023 Orders Only Department of Nicotine Dependence, [address] [phone] Sudha Bernstein M.A., Yesy.I.C.S.W., C.T.T.S. 11/18/2023 11:00 AM YOUTH PROGRAM DIRECTOR Virtual Visit Department of Nicotine Dependence, [place], [place] [address] [place] [phone] Sudha Bernstein M.A., L.I.C.S.W., C.T.T.S. Nicotine Dependence Cigarettes With Withdrawal (Primary Dx) 11/11/2023 Orders Only Department of Nicotine Dependence, [address] [address] Sudha Bernstein M.A., L.I.C.S.W., C.T.T.S. 11/11/2023 Clinical Communication Department of Nicotine Dependence, [place], [place] [address] [place] [phone] Sudha Bernstein M.A., L.I.C.S.W., C.T.T.S. [facility] Med Request 11/11/2023 11:00 AM YOUTH PROGRAM DIRECTOR Virtual Visit Department of Nicotine Dependence, [place], [place] [address] [place] [phone] Sudha Bernstein M.A., L.I.C.S.W., C.T.T.S. Nicotine Dependence Cigarettes With Withdrawal (Primary Dx) 11/05/2023 9:29 AM YOUTH PROGRAM DIRECTOR - 11/05/2023 12:20 PM [facility] Hospital Encounter Department of Radiology, [facility], in [place], [place] [address] [place] [address] Felipe Morales M.D. Ascites Discharge Disposition: Home [...] drink = 0.6 oz pur e alcohol) [facility] Utilities Answer Date Recorded In the past 12 months has e [employer], gas, oil, or water [employer] threatened to shut off services in your [...] Date Recorded Employment status Working with temporary [employer] 10/15/2023 Housing Stability Answer Date Recorded What is your living situation today? I have a [facility] place to live 10/15/2023 Sex and Gender Information Value Date Recorded Sex Assigned at Female 10/06/2023 10:50 AM YOUTH PROGRAM DIRECTOR Gender Identity Female 10/06/2023 10:50 AM YOUTH PROGRAM DIRECTOR Sexual Orientation Straight 10/06/2023 10 :50 AM YOUTH PROGRAM DIRECTOR Last Filed Vital Signs Vital Sign Reading Time Taken Comments Blood Pressure 101/47 12/16/2023 10:52 AM CDT Pulse 77 12/16/2023 10:30 AM CDT Temperature 34.7 ??C (94.5 ??F) 12/09/2023 4:21 PM CD T Respiratory Rate 24 10/08/2023 4:16 PM YOUTH PROGRAM DIRECTOR Oxygen Saturation 100% 12/16/2023 10:30 AM CDT [...] CDT Appointment Division of Gastroenterology in [place], [place] 200 [place] [phone] Katja Umana M.D. 200 [place] [phone] Hayden Smith M.D. 200 [place] [address] 03/21/2024 1:00 PM CDT Virtual Visit Department of Nicotine Dependence, [facility], in [place], [place] [address] [place] [address] Procedures Procedure Name Priority Date/Time Associated Diagnosis [...] and all outpatients) 11/19/2023 11:55 AM YOUTH PROGRAM DIRECTOR Ascites CELL COUNT AND DIFFERENTIAL, BF Timed 11/19/2023 10:50 AM YOUTH PROGRAM DIRECTOR Ascites BACTERIAL CULTURE, AEROBIC + SUSC Timed 11/19/2023 10:50 AM YOUTH PROGRAM DIRECTOR Ascites US PARACENTESIS WITH IMAGING GUIDANCE RAD - Routine (most inpatients and all outpatients) 11/05/2023 11:25 AM YOUTH PROGRAM DIRECTOR Ascites CELL COUNT AND DIFFERENTIAL, BF Timed 11/05/2023 10:07 AM YOUTH PROGRAM DIRECTOR Ascites BACTERIAL CULTURE, AEROBIC + SUSC Timed 11/05/2023 10:07 AM YOUTH PROGRAM DIRECTOR Ascites HCV AB SCRN W/REFLEX TO HCV PCR, S Routine 10/06/2023 12:17 PM YOUTH PROGRAM DIRECTOR Alcoholic Cirrhosis Of Liver With Ascites (HCC) COLONOSCOPY Routine 10/10/2015 2:45 PM YOUTH PROGRAM DIRECTOR from Last 3 Months or Most Recently [...] CDT Katja Umana M.D. LAB BLOOD ADD-ON [facility] [address] [place] [address], [facility] [address] [place] [address] * (ABNORMAL) CBC with Differential, Blood (12/09/2023 [...] CDT Katja Umana M.D. LAB BLOOD ADD-ON [facility] [place] [address] [place] [address], [facility] DTL [facility] [address] [place] [address] [facility] [address] [place] [address] * (ABNORMAL) Comprehensive Metabolic Panel (12/09/2023 5:16 PM CDT) [facility] Potassium, S 5.0 3.6 - [...] M.D. LAB BLOOD ADD-ON Performing Organization Address City/[facility] Co de Phone Number [facility] [place] 200 [place] [address], [facility] 200 [place] [address] * Bacterial Culture, Aerobic + Susceptibility (11/19/2023 10:50 AM YOUTH PROGRAM DIRECTOR) Only the most recent of2 resultswithin the time period is included. Bacterial Culture, Aerobic + Susc No growth after 5 days of incubation. 11/24/2023 8:27 AM CDT DTL Fluid (Peritoneal Fluid) 11/19/2023 10:50 AM YOUTH PROGRAM DIRECTOR Narrative [facility] [place] - 11/24/2023 8:27 AM CDT Bacterial Culture: Received Bactec aerobic and Bactec anaerobic bottles Felipe Morales M.D. LAB MICROBIOLOGY - GENERAL ORDERABLES Performing Organization Address [facility] Co de Phone Number [facility] [place] [address] [place] [address], [facility] 200 [place] [address] * Cell Count and Differential, Body Fluid (11/19/2023 10:50 AM YOUTH PROGRAM DIRECTOR) Only the most recent of2 resultswithin the time period is included. Fluid Type Peritoneal /Paracente sis 11/19/2023 12:39 PM YOUTH PROGRAM DIRECTOR [facility] Gross Appearance Serous 11/19/19 24 12:39 PM YOUTH PROGRAM DIRECTOR [facility] Total Nucleated Cells 201 /mcL 11/19/2023 12:39 PM YOUTH PROGRAM DIRECTOR [facility] Comment: ----REFERENCE VALUE---- Synovial: <150 /mcL Peritoneal: <500 /mcL Pleural: <500 /mcL Pericardial: <500 /mcL ----ADDITIONAL INFORMATION---- This test has been modified from the head of stock's instructions. Its performance characteristics were determined by [facility] in a manner consistent with CLIA requirements. This test has not been cleared or approved by the U.S. Food and Drug Administration. Neutrophils 20 % 11/19/2023 1:42 PM YOUTH PROGRAM DIRECTOR [facility] Comment: ----REFERENCE VALUE---- Synovial: <25% Peritoneal: <25% Pleural: <25% Pericardial: <25% Lymphocytes 16 Synovial <75% % 11/19/2023 1:42 PM YOUTH PROGRAM DIRECTOR [facility] Monocytes/Macropha ges 60 Synovial <70% % 11/19/2023 1:42 PM YOUTH PROGRAM DIRECTOR [facility] Other Cells 4 % 11/19/2023 1:42 PM YOUTH PROGRAM DIRECTOR [facility] Comment: ----REFERENCE VALUE---- The reference range and other method performance specifications have not been established for this bodyfluid. The test result must be integrated into the clinical context for interpretation. Other Cells Are: See Comment 11/19/2023 1:42 PM YOUTH PROGRAM DIRECTOR [facility] Comment:Mesothelial cells Comment See Comment 11/19/2023 1:42 PM YOUTH PROGRAM DIRECTOR [facility] Comment:No blasts or maligna nt cells seen. Reviewed by: Jose 11/19/2023 1:42 PM YOUTH PROGRAM DIRECTOR [facility] Fluid (Peritoneal Fluid) 11/19/2023 10:50 AM YOUTH PROGRAM DIRECTOR Felipe Morales M.D. LAB BODY FLUIDS AND STOOLS ORDERABLES Performing Organization Address City/[facility]/ZIP Co de Phone Number [facility] [place] [address] [place] [address], [facility] [address] [place] [address] * HCV Ab Scrn w/Reflex to HCV PCR, Serum (10/06/2023 12:17 PM YOUTH PROGRAM DIRECTOR) HCV Ab Screen, S Negative Negative 10/06/2023 9:12 PM YOUTH PROGRAM DIRECTOR [facility] Comment:Yqwtbh-ly-tamobp rat io is <1.00. Blood (Blood, Venous) 10/06/2023 12:17 PM YOUTH PROGRAM DIRECTOR 10/06/2023 3:57 PM YOUTH PROGRAM DIRECTOR Katja Umana M.D. LAB MICROBIOLOGY - B LOOD ORDERABLES Performing Organization Address City/[facility]/ZIP Co de Phone Number [facility] [address] [place] [address] [facility] [address] [place] [address] * Colonoscopy (10/10/2015 2:45 PM YOUTH PROGRAM DIRECTOR) 10/10/2015 2:45 PM YOUTH PROGRAM DIRECTOR Tanner Calderón GI PROCEDURE NATY CHIANG [facility] EM[facility]ENC[facility]PART[facility] RADIOLOGY SYSTEM [address] from Last 3 Months or Most Recently Relevant to Health Maintenance Care Teams Automatic Buffer Relationship Specialty Start Date End Date Elsewhere, Pcp PCP - General Family Medicine 12/07/23
--- OUTSIDE RECORDS SUMMARY | 2024-01-31 14:17 | XMS_ITS | Encounter Summary ---
Author Name Unknown Organization [facility] Address [address] [place] [address] Care Team Providers Care Web Retailer Name Role Phone Elsewhere, Pcp Primary Care Provider Unavailabl e Encounter Details Date Type Department Care Team (Latest Contact Info) Description 01/14/2024 Clinical Communication Division of Gastroenterology in [place], [place] [address] [place] [address] Katja Umana M.D. [address] [place] [address] Social History Tobacco Use Types Packs/Day Years Used Date Smoking Tobacco: Every Day Cigarettes 0.5 41 Started: 02/11/1983 Passive Smoke Exposure: Never Smokeless Tobacco: Never Alcohol Use Standard Drinks/Week Comments Not Currently 0 (1 standard drink = 0.6 oz pur e alcohol) [facility] Utilities Answer Date Recorded In the past 12 months has [facility] [employer] [employer], gas, oil, or water [employer] threatened to shut off services in your [...] Date Recorded Employment status Working with temporary [employer] 10/15/2023 Housing Stability Answer Date Recorded What is your living situation today? I have a [facility] place to live 10/15/2023 Sex and Gender Information Value Date Recorded Sex Assigned at Female 10/06/2023 10:50 AM COLD REDUCTION ROLLER Gender Identity Female 10/06/2023 10:50 AM COLD REDUCTION ROLLER Sexual Orientation Straight 10/06/2023 10 :50 AM COLD REDUCTION ROLLER documented as of this encounter Plan of Treatment Upcoming Encounters Date Type Department Care Team (Late st Contact Info) Description 02/04/2024 2:15 PM CDT Appointment Division of Gastroenterology in [place], [place] [address] [place] [phone] Katja Umana M.D. [address] [place] [phone] Hayden Smith M.D. [address] [place] [phone] 03/21/2024 1:00 PM CDT Virtual Visit Department of Nicotine Dependence, [facility], in [place], [place] [address] [place] [phone] documented as of this encounter Visit Diagnoses Not on filedocumented in this encounter Additional Health Concerns Assessment Noted Time PHQ-9 Depression Total Score: 3 10/20/19 24 7:30 AM COLD REDUCTION ROLLER documented as of this encounter Care Teams Web Retailer Relationship Specialty Start Date End Date Elsewhere, Pcp PCP - General Family Medicine 12/07/23 documented as of this encounter
--- OUTSIDE RECORDS SUMMARY | 2024-01-31 14:17 | XMS_ITS | Encounter Summary ---
Author Name Unknown Organization [facility] Address [address] [place] [address] Care Team Providers Care Bpm Architect Name Role Phone Elsewhere, Pcp Primary Care Provider Unavailabl e Reason for Referral * Outpatient (Routine) - Authorized Specialty Diagnoses / Procedures Referred By Dotty t Referred To Contact Diagnoses Ascites Procedures US Paracentesis with Imaging Guidance Katja Umana M.D. [address] [place] [phone] [facility] Referral ID Status Reason Start Date Expiration Date V isits Requested Visits Authorized [id number] Authorized 12/30/2023 12/29/2024 4 4 Encounter Details Date Type Department Care Team (Latest Contact Info) Description 12/28/2023 Clinical Communication Division of Gastroenterology in [place], [place] [address] [place] [phone] Katja Umana M.D. [address] [place] [phone] Social History Tobacco Use Types Packs/Day Years Used Date Smoking Tobacco: Every Day Cigarettes 0.5 41 Started: 02/11/1983 Passive Smoke Exposure: Never Smokeless Tobacco: Never Alcohol Use Standard Drinks/Week Comments Not Currently 0 (1 standard drink = 0.6 oz pur e alcohol) [facility] Utilities Answer Date Recorded In the past 12 months has [employer], gas, oil, or water company threatened [...] Sex Assigned at Female 10/06/2023 10:50 AM INLAYER Gender Identity Female 10/06/2023 10:50 AM INLAYER Sexual Orientation Straight 10/06/2023 10 :50 AM INLAYER documented as of this encounter Plan of Treatment Upcoming Encounters Date Type Department Care Team (Late st Contact Info) Description 02/04/2024 2:15 PM CDT Appointment Division of Gastroenterology in [place], [place] 200 [place] [address] Katja Umana M.D. 200 [place] [address] Hayden Smith M.D. 200 [place] [address] 03/21/2024 1:00 PM CDT Virtual Visit Department of Nicotine Dependence, [facility], in [place], [place] 200 [place] [address] Scheduled Orders Name Type Priority Associated Diagnoses Order Schedule US Paracentesis with Imaging Guidance Imaging RAD - Routine (most inpatients and all outpatients) Ascites Expected: 01/13/2024, Expires: 03/30/2025 documented as of this encounter Visit Diagnoses Diagnosis Ascites- Primary documented in this encounter Additional Health Concerns Assessment Noted Time PHQ-9 Depression Total Score: 3 10/20/19 24 7:30 AM INLAYER documented as of this encounter Care Teams Bpm Architect Relationship Specialty Start Date End Date Elsewhere, Pcp PCP - General Family Medicine 12/07/23 documented as of this encounter
--- OUTSIDE RECORDS SUMMARY | 2024-01-31 14:17 | XMS_ITS | Encounter Summary ---
Author Name Unknown Organization [facility] Address [address] [place] [address] Care Team Providers Care Journeyman Pipefitter Name Role Phone Elsewhere, Pcp Primary Care Provider Unavailabl e Encounter Details Date Type Department Care Team (Latest Contact Info) Description 01/25/2024 Clinical Communication Division of Gastroenterology in [place], [place] [address] [place] [address] Katja Umana M.D. [address] [place] [address] Social History Tobacco Use Types Packs/Day Years Used Date Smoking Tobacco: Every Day Cigarettes 0.5 41 Started: 02/11/1983 Passive Smoke Exposure: Never Smokeless Tobacco: Never Alcohol Use Standard Drinks/Week Comments Not Currently 0 (1 standard drink = 0.6 oz pur e alcohol) [facility] Utilities Answer Date Recorded In the past 12 months has [facility] [employer], gas, oil, or water [employer] threatened to shut off services in your [...] Date Recorded Employment status Working with temporary [employer] 10/15/2023 Housing Stability Answer Date Recorded What is your living situation today? I have a [facility] place to live 10/15/2023 Sex and Gender Information Value Date Recorded Sex Assigned at Female 10/06/2023 10:50 AM SLEEPING ROOM CLEANER Gender Identity Female 10/06/2023 10:50 AM SLEEPING ROOM CLEANER Sexual Orientation Straight 10/06/2023 10 :50 AM SLEEPING ROOM CLEANER documented as of this encounter Plan of Treatment Upcoming Encounters Date Type Department Care Team (Late st Contact Info) Description 02/04/2024 2:15 PM CDT Appointment Division of Gastroenterology in [place], [place] [address] [place] [phone] Katja Umana M.D. [address] [place] [phone] Hayden Smith M.D. [address] [place] [phone] 03/21/2024 1:00 PM CDT Virtual Visit Department of Nicotine Dependence, [facility], in [place], [place] [address] [place] [phone] documented as of this encounter Visit Diagnoses Not on filedocumented in this encounter Additional Health Concerns Assessment Noted Time PHQ-9 Depression Total Score: 3 10/20/19 24 7:30 AM SLEEPING ROOM CLEANER documented as of this encounter Care Teams Journeyman Pipefitter Relationship Specialty Start Date End Date Elsewhere, Pcp PCP - General Family Medicine 12/07/23 documented as of this encounter
--- OUTSIDE RECORDS SUMMARY | 2024-01-31 14:17 | XMS_ITS | Clinical Summary ---
Author Name Unknown Organization [employer] Address [place], [place] [address] Care Team Providers Care Php Lamp Developer Name Role Phone Jared Delgado MD Primary Care Provider [phone] Allergies No known active allergies Medications Medication [...] Travel 4 1:10 PM CDT Anesthesia Event [facility] [address] [place] [address] Gabe Webber MD 4 12:12 PM CDT - 4 12:57 PM CDT Surgery [address] [address] Janet Torres MBBS ESOPHAGOGASTRODUODENOSCOPY 4 8:52 PM CDT - 4 5:25 PM CDT Hospital Encounter [address] [place] [address] s, U Hospitalist Ean Jett, MD Kim [...] - 145 mmol/L 12/06/2023 11:58 AM CDT [facility] Blood BLOOD SPECIMEN / Unknown Butterfly / Unknown 12/06/2023 11:25 AM CDT 12/06/2023 11:50 AM CDT Freddy Moctezuma MD CHEMISTRY Performing Organization Address City/[facility]/ZIP Co de Phone Number [facility] SENDOUT INTERNAL ZIP [address] [place] [address] * (ABNORMAL) HEMOGLOBIN (12/06/2023 9:05 AM CDT) Only the most recent of6 resultswithin the time period is included. HEMOGLOBIN 7.6(L) 12.0 - 16.0 g/dL 12/06/2023 9:29 AM CDT [facility] MCV 94 80 - 100 fL 12/06/2023 9:29 AM CDT [facility] Blood BLOOD SPECIMEN / Unknown Venipuncture / Unknown 12/06/2023 9:05 AM CDT 12/06/2023 9:24 AM CDT Freddy Moctezuma MD HEMATOLOGY [facility] SENDOUT [place]IP [address] [address] [place] [address] * (ABNORMAL) BASIC METABOLIC PANEL (12/05/2023 1:42 PM CDT) Only the most recent of3 resultswithin the time period is included. SODIUM 122(L) 136 - 145 mmol/L 12/05/2023 2:37 PM CDT [facility] POTASSIUM 4.6 3.5 - 5.1 mmol/L 12/05/2023 2:37 PM CDT [facility] CHLORIDE 92(L) 98 - 107 mmol/L 12/05/2023 2:37 PM CDT [facility] CO2,TOTAL 20(L) 22 - 29 mmol/L 12/05/2023 2:37 PM T [facility] ANION GAP 10 5 - 18 12/05/2023 2:37 PM T [facility] GLUCOSE 97 70 - 99 mg/dL 12/05/2023 2:37 PM T [facility] CALCIUM 7.8(L) 8.8 - 10.2 mg/dL 12/05/2023 2:37 PM T [facility] BUN 11 8 - 23 mg/dL 12/05/2023 2:37 PM T [facility] CREATININE 0.50 0.50 - 0.90 mg/dL 12/05/2023 2:37 PM T [facility] BUN/CREAT RATIO 22(H) 10 - 20 2:37 PM T [facility] eGFR >90 >90 mL/min/1.7 3m2 12/05/2023 2:37 PM T [facility] Comment:As of 2021, eG [...] 2:10 PM CDT Freddy Moctezuma MD CHEMISTRY [facility] SENDOUT [place]IP [phone] [place] [address] * LC HEP A AB, TOTAL (12/04/2023 9:21 AM CDT) Pathologist [facility] Hep A Ab Tot Negative Negative 12/08/2023 11:10 AM CDT [facility] ([facility]) Comment: Comment: The HAV total antibody assay detects both IgG and IgM but does not differentiate between them. A negative result suggests susceptibility to infection. A positive result could be due to vaccination, previously resolved infection or active infection. Testing for HAV IgM should be performed if active HAV infection is suspected. [facility] offers profiles that will automatically reflex positive HAV total antibody results to IgM (e.g., panel #[id number] HAV Antibody w/ Rfx). Blood BLOOD SPECIMEN / Unknown Venipuncture / Unknown 12/04/2023 9:21 AM CDT 12/04/2023 9:29 AM CDT Narrative [facility] ([facility]) - 12/08/2023 11:10 AM CDT Performed at: ??01 - [address] ??[id number] Civil Engineering Professional: Calros Piña MD, Phone: ??[phone] Janet DELGADO LABORATORY [facility] ([facility]) [address] [place] [address], * ANTI HBS QUANT AHS (12/04/2023 9:21 AM CDT) [facility] ANTI HBS QUANT <3.50 mIU/mL 12/04/2023 3:36 PM CDT [facility] Blood BLOOD SPECIMEN / Unknown Venipuncture / Unknown 12/04/2023 9:21 AM CDT 12/04/2023 9:29 AM CDT Narrative [facility] - 12/04/2023 3:36 PM [...] prior to retesting. Janet JULIOBS SEND OUTS [facility] [address] [place] [address], * (ABNORMAL) PROTIME-INR (12/04/2023 9:21 AM CDT) INR 1.7(H) <1.3 12/04/2023 9:58 AM CDT [facility] PROTIME 18.5(H) 10.3 - 12.3 sec 12/04/2023 9:58 AM CDT [facility] Blood BLOOD SPECIMEN / Unknown Venipuncture / Unknown 12/04/2023 9:21 AM CDT 12/04/2023 9:30 AM CDT [facility] - 12/04/2023 9:58 AM [...] is on UFH. Felipe Alvarez MD HEMATOLOGY [facility] SENDOUT INTERNAL ZIP [phone] [place] [address] * (ABNORMAL) AMMONIA (12/04/2023 9:21 AM CDT) AMMONIA 129(HH) 16 - 60 umol/L 12/04/2023 10:05 AM CDT [facility] Blood BLOOD SPECIMEN / Unknown Venipuncture / Unknown 12/04/2023 9:21 AM CDT 12/04/2023 9:28 AM CDT Narrative [facility] - 12/04/2023 10:05 AM CDT 1. ??Sulfasalazine and its metabolite Sulfapyridine at therapeutic concentrations may lead to falsely low results. 2. ??Temozolomide and its metabolite MTIC may lead to falsely elevated results, and its metabolite AIC may lead to falsely low results. Felipe Alvarez MD CHEMISTRY [facility] SENDOUT INTERNAL ZIP [phone] [place] [address] * US PARACENTESIS W IMAGING (12/03/2023 4:51 PM CDT) Anatomical Region Laterality Modality CHEST, Lung, THORAX Ultrasound 12/03/2023 4:51 PM CDT Impressions 12/03/2023 4:56 PM CDT 1. ??Status post ultrasound-guided paracentesis. Reference CPT Code: 04381 Narrative 12/03/2023 4:56 PM CDT For Patients: As a result of the Cures Act, medical imaging exams and procedure reports are released immediately into your electronic medical record. You may view this report before your referring provider. If you have questions, please contact your health care provider. EXAM: 1. PARACENTESIS 2. ULTRASOUND GUIDANCE LOCATION: [facility] MEDICAL IMAGING DATE: 12/03/2023 INDICATION: Ascites. PROCEDURE: Informed consent obtained. Time out performed. The abdomen was prepped and draped in a sterile fashion. 10 mL of 1% lidocaine was infused into local soft tissues. A 5 Persian catheter system was introduced into the abdominal [...] EXAM: 1. PARACENTESIS 2. ULTRASOUND GUIDANCE LOCATION: [facility] MEDICAL IMAGING DATE: 12/03/2023 INDICATION: Ascites. PROCEDURE: Informed consent obtained. Time out performed. The abdomen wasprepped and draped in a sterile fashion. 10 mL of 1% lidocaine was infusedinto local soft tissues. A 5 Persian catheter system was introduced intothe abdominal ascites under ultrasound guidance. 7.1 liters of clear fluid were removed and sent to lab if requested. Patient tolerated procedure well. Ultrasound imaging was obtained and placed in the patient's permanentmedical record. IMPRESSION: 1. Status post ultrasound-guided paracentesis. Reference CPT Code: 06630 Janet DELGADO * Body Fluid Culture and Stain (12/03/2023 4:20 PM CDT) CULTURE No Growth. 12/08/2023 7:52 AM CDT [facility] GRAM STAIN 2+ PMNs 12/08/2023 7:52 AM CDT [facility] GRAM STAIN No organisms seen 12/08/2023 7:52 AM CDT [facility] GRAM STAIN No Epithelial cells 12/08/2023 7:52 AM CDT [facility] GRAM STAIN No RBCs 12/08/2023 7:52 AM CDT [facility] GRAM STAIN Gram stain performed by [place], [place] 12/08/2023 7:52 AM CDT [facility] Body Fluid PERITONEAL FLUID SPECIMEN / Unknown Non-Blood / Unknown 12/03/2023 4:20 PM CDT 12/03/2023 4:40 PM CDT Janet DELGADO MICROBIOLOGY [facility] [address] [place] [address], [facility] SENDOUT INTERNAL ZIP [address] [place] [address] * Body Fluid Cell Count and Differential (12/03/2023 4:20 PM CDT) BODY FLUID SOURCE Ascitic Fluid 12/03/2023 7:27 PM CDT [facility] BODY FLUID COLOR Yellow 12/03/2023 7:27 PM CDT [facility] BODY FLUID CLARITY Clear 12/03/2023 7:27 PM CDT [facility] TOTAL NUCLEATED CELLS, BF 85 /cu mm 12/03/2023 7:27 PM CDT [facility] RED BLOOD COUNT, BODY FLUID <2,000 /cu mm 12/03/2023 7:27 PM CDT [facility] % NEUTROPHILS, BODY FLUID 17 % 12/03/2023 7:27 PM CDT [facility] % LYMPHOCYTES, BODY FLUID 25 % 12/03/2023 7:27 PM CDT [facility] % MONO/MACRO, BODY FLUID 58 % 12/03/2023 7:27 PM CDT [facility] Body Fluid PERITONEAL FLUID SPECIMEN / Unknown Non-Blood / Unknown 12/03/2023 4:20 PM CDT 12/03/2023 4:40 PM CDT [facility] - 12/03/2023 7:27 PM CDT TO ORDER BODY FLUID CULTURES, USE; [id number] BODY FLUID CULTURE, STAIN Janet JULIO BODY FLUID [facility] SENDOUT INTERNAL ZIP [phone] [place] [address] * Protein, Body Fluid (12/03/2023 4:20 PM CDT) SPECIMEN SOURCE Peritoneal fluid 12/03/2023 5:26 PM CDT [facility] PROTEIN,BODY FLUID 0.6 g/dL 12/03/2023 5:26 PM CDT [facility] Comment:No Reference Range D efined. Body Fluid PERITONEAL FLUID SPECIMEN / Unknown Non-Blood / Unknown 12/03/2023 4:20 PM CDT 12/03/2023 4:40 PM CDT [facility] - 12/03/2023 5:26 PM [...] Test developed & performance characteristics determined by [facility], [place], [place] consistent with CLIA requirements. Not cleared or approved by [place] FDA. Janet Torres NORI BODY FLUID [facility] SENDOUT INTERNAL ZIP [phone] [place] [address] * Albumin, Body Fluid (12/03/2023 4:20 PM CDT) SPECIMEN SOURCE Peritoneal fluid 12/03/2023 5:26 PM CDT [facility] ALBUMIN,BODY FLUID 0.3 g/dL 12/03/2023 5:26 PM CDT [facility] Comment:No Reference Range D efined. Body Fluid PERITONEAL FLUID SPECIMEN / Unknown Non-Blood / Unknown 12/03/2023 4:20 PM CDT 12/03/2023 4:40 PM CDT Narrative [facility] - 12/03/2023 5:26 PM CDT Peritoneal: ??SAAG >/= 1.1 g/dL indicates portal Hypertension. Pleural: ? SEAG > 1.2 g/dL is consistent with a transudative process and may ?be more accurate in patients receiving diuretic therapy. Test developed & performance characteristics determined by [employer] [facility], [place], [place] consistent with CLIA requirements. Not cleared or approved by [place] FDA. Janet JULIO BODY FLUID [facility] SENDOUT INTERNAL ZIP [phone] [place] [address] * FERRITIN (12/03/2023 2:47 PM CDT) FERRITIN 131.0 15.0 - 150.0 ng/mL 12/03/2023 9:31 PM CDT [facility] Blood BLOOD SPECIMEN / Unknown Venipuncture / Unknown 12/03/2023 2:47 PM CDT 12/03/2023 2:51 PM CDT Janet DELGADO CHEMISTRY [facility] [address] [place] [address], * PATH TISSUE EXAM (12/03/2023 1:23 PM CDT) Case Report Pathology Report ?Case: [id number] ? Authorizing Provider: ??Janet Torres MBBS ?Collected: ? 12/03/2023 1323 ? Ordering Location: ? [facility] ?Received: ?12/03/2023 1527 ? Pathologist: ? Marco Tijerina MD ? Specimens: ?? A) - Duodenal Ulcer ? B) - Gastric Biopsy, random gastric ? 4 1:56 PM CDT [facility] Final Diagnosis A) DUODENUM, ULCER, [...] (Helicobacter immunohistochemistry negative) 4 1:56 PM CDT [facility] Comment B. Mild chronic inflammation in the stomach in the absence of Helicobacter often remains unexplained, but it could reflect prior or treated Helicobacter infection. The likelihood of histologically undetected Helicobacter is quite low in our opinion. 4 1:56 PM T [facility] Clinical Information Ms. Redmond is a 63 y.o. with hematemesis and iron deficiency anemia secondary to chronic blood loss. Upper GI endoscopy shows grade 1 esophageal varices, diffuse mild erythema throughout the stomach, and a superficial duodenal ulcer. 4 1:56 PM T [facility] Gross Description A) Received in [...] 12/03/2023 4:32 PM 4 1:56 PM CDT [facility] Microscopic Description The final diagnosis is based on microscopic examination of appropriate sections of all specimens. 4 1:56 PM T [facility]- CENTRAL LABORATORY Additional Information Interpreted at [facility], Central Laboratory - [address], [place] [address] 1:56 PM CDT [facility] Biopsy (Duodenal Ulcer) 12/03/2023 1:23 PM CDT 12/03/2023 3:27 PM CDT Biopsy specimen (specimen) GASTRIC BIOPSY SPECIMEN / Unknown 12/03/2023 1:29 PM CDT 12/03/2023 3:27 PM CDT Janet DELGADO PATHOLOGY/CYTOLOGY [facility] [address] [place] [address], * ENDOSCOPY (12/03/2023 12:57 PM CDT) 12/03/2023 [...] candidate for conscious sedation. The endoscope [id number] was introduced through the mouth, and advanced [...] - 11.0 thou/cu mm 12/03/2023 5:12 AM [facility] RED BLOOD COUNT 2.21(L) 4.00 - 5.20 mil/cu mm 12/03/2023 5:12 AM T [facility] HEMOGLOBIN 7.3(L) 12.0 - 16.0 g/dL 12/03/2023 5:12 AM T [facility] HEMATOCRIT 21.5(L) 33.0 - 51.0 % 12/03/2023 5:12 AM [facility] MCV 97 80 - 100 fL 12/03/2023 5:12 AM [facility] MCH 33.0 26.0 - 34.0 pg 12/03/2023 5:12 AM [facility] MCHC 34.0 32.0 - 36.0 g/dL 12/03/2023 5:12 AM [facility] RDW 17.2(H) 11.5 - 15.5 % 12/03/2023 5:12 AM [facility] PLATELET COUNT 167 140 - 440 thou/cu mm 12/03/2023 5:12 AM [facility] MPV 8.9 6.5 - 11.0 fL 12/03/2023 5:12 AM T [facility] NRBC 0.0 % 12/03/2023 5:12 AM [facility] ABS NRBC 0.0 thou /cu mm 12/03/2023 5:12 AM T [facility] % NEUT 65.0 % 12/03/2023 5:12 AM CDT [facility] % LYMPH 25.6 % 12/03/2023 5:12 AM T [facility] % MONO 7.5 % 12/03/2023 5:12 AM CDT [facility] % EOS 1.0 % 12/03/2023 5:12 AM T [facility] % BASO 0.3 % 12/03/2023 5:12 AM CDT [facility] % IMMATURE GRAN (METAS,MYELOS,GA OS) 0.6 % 12/03/2023 5:12 AM CDT [facility] ABSOLUTE NEUTROPHILS 5.7 1.7 - 7.0 thou/cu mm 12/03/2023 5:12 AM CDT [facility] ABSOLUTE LYMPHOCYTES 2.2 0.9 - 2.9 thou/cu mm 12/03/2023 5:12 AM CDT [facility] ABSOLUTE MONOCYTES 0.7 <0.9 thou/cu mm 12/03/2023 5:12 AM CDT [facility] ABSOLUTE EOSINOPHILS 0.1 <0.5 thou/cu mm 12/03/2023 5:12 AM CDT [facility] ABSOLUTE BASOPHILS 0.0 <0.3 thou/cu mm 12/03/2023 5:12 AM CDT [facility] ABSOLUTE IMMATURE GRANULOCYTES(MET ,MYELOS,PROS) 0.1 <0.3 thou/cu mm 12/03/2023 5:12 AM CDT [facility] Blood BLOOD SPECIMEN / Unknown Butterfly / Unknown 12/03/2023 3:34 AM CDT 12/03/2023 3:37 AM CDT Adama Jett MD HEMATOLOGY [facility] SENDOUT INTERNAL ZIP [phone] [place] [address] * (ABNORMAL) RED CELL MORPHOLOGY (12/03/2023 3:34 AM CDT) POLYCHROMASIA Slight 12/03/2023 5:12 AM CDT [facility] SCHISTOCYTES Few 12/03/2023 5:12 AM CDT [facility] RBC COMMENT Present(A) RBC morphology appears normal, RBC morphology within normal limits for newborns. 12/03/2023 5:12 AM CDT [facility] Blood BLOOD SPECIMEN / Unknown Butterfly / Unknown 12/03/2023 3:34 AM CDT 12/03/2023 3:37 AM CDT Adama Jett MD HEMATOLOGY [facility] SENDOUT INTERNAL ZIP [address] [address] [place] [address] * PLATELET ESTIMATE (12/03/2023 3:34 AM CDT) PLATELET ESTIMATE Adequate Adequate, No estimate 12/03/2023 5:12 AM CDT [facility] Blood BLOOD SPECIMEN / Unknown Butterfly / Unknown 12/03/2023 3:34 AM CDT 12/03/2023 3:37 AM CDT Adama Jett MD HEMATOLOGY Performing Organization Address City/[facility]/ZIP Co de Phone Number [facility] SENDOUT INTERNAL ZIP [address] [address] [place] [address] * (ABNORMAL) IRON PLUS IRON BINDING CAP (12/03/2023 3:34 AM CDT) IRON 49 37 - 145 ug/dL 12/03/2023 3:46 PM CDT [facility] UIBC (UNSATURATED) 67(L) 112 - 347 ug/dL 12/03/2023 3:46 PM CDT [facility] IRON BINDING CAPACITY 116(L) 250 - 400 ug/dL 12/03/2023 3:46 PM CDT [facility] IRON,% SATURATION 42 14 - 50 % 12/03/2023 3:46 PM CDT [facility] Blood BLOOD SPECIMEN / Unknown Butterfly / Unknown 12/03/2023 3:34 AM CDT 12/03/2023 3:37 AM CDT Janet DELGADO CHEMISTRY [facility] SENDOUT INTERNAL ZIP [phone] [place] [address] * (ABNORMAL) MAGNESIUM (12/03/2023 3:34 AM CDT) MAGNESIUM 2.5(H) 1.6 - 2.4 mg/dL 12/03/2023 3:57 AM CDT [facility] Blood BLOOD SPECIMEN / Unknown Butterfly / Unknown 12/03/2023 3:34 AM CDT 12/03/2023 3:37 AM CDT Adama Jett MD CHEMISTRY [facility] SENDOUT INTERNAL ZIP [phone] [place] [address] * SCAN-CARDIAC STRIP (12/02/2023 11:58 PM CDT) Scanner OTHER * (ABNORMAL) HEPATIC FUNCTION PANEL (12/02/2023 10:56 PM CDT) ALBUMIN 2.8(L) 4.0 - 4.9 g/dL 12/02/2023 11:22 PM CDT [facility] PROTEIN,TOTAL 6.5 6.0 - 8.0 g/dL 12/02/2023 11:22 PM CDT [facility] BILIRUBIN,TOTAL 3.0(H) 0.0 - 1.2 mg/dL 12/02/2023 11:22 PM CDT [facility] BILIRUBIN,DIRECT 1.3(H) 0.0 - 0.3 mg/dL 12/02/2023 11:22 PM CDT [facility] BILIRUBIN,INDIRE CT 1.7(H) 0.2 - 0.8 mg/dL 12/02/2023 11:22 PM CDT [facility] ALK PHOSPHATASE 114(H) 35 - 104 IU/L 12/02/2023 11:22 PM CDT [facility] ALT (SGPT) 31 10 - 35 IU/L 12/02/2023 11:22 PM CDT [facility] AST (SGOT) 87(H) 10 - 35 IU/L 12/02/2023 11:22 PM CDT [facility] Blood BLOOD SPECIMEN / Unknown Venipuncture / Unknown 12/02/2023 10:56 PM CDT 12/02/2023 11:01 PM CDT Adama Jett MD CHEMISTRY [facility] SENDOUT INTERNAL ZIP [phone] [place] [address] from Last 3 Months Advance Directives * Full Code (Latest Code Status on File) Date Activated Date Inactivated Comments 12/02/2023 9:46 PM 12/06/2023 7:35 PM Question Answer Comments Code Status Discussion: Reviewed Preferences Care Teams Php Lamp Developer Relationship Specialty Start Date End Date Jared Delgado MD [address] [place] [phone] PCP - General Family Practice 12/04/23
--- OUTSIDE RECORDS SUMMARY | 2024-01-31 14:17 | XMS_ITS | Encounter Summary ---
Author Name Unknown Organization [facility] Address [address] [place] [address] Care Team Providers Care Ui Application Developer Name Role Phone Elsewhere, Pcp Primary Care Provider Unavailabl e Encounter Details Date Type Department Care Team (Latest Contact Info) Description 12/21/2023 Clinical Communication Brent motta [facility] in [place], [place] [address] [place] [address] Katja Umana M.D. [address] [place] [address] Social History Tobacco Use Types Packs/Day Years Used Date Smoking Tobacco: Every Day Cigarettes 0.5 41 Started: 02/11/1983 Passive Smoke Exposure: Never Smokeless Tobacco: Never Alcohol Use Standard Drinks/Week Comments Not Currently 0 (1 standard drink = 0.6 oz pur e alcohol) [facility] Utilities Answer Date Recorded In the past 12 months has e [employer], gas, oil, or water [employer] threatened to shut off services in your [...] Date Recorded Employment status Working with temporary [employer] 10/15/2023 Housing Stability Answer Date Recorded What is your living situation today? I have a [facility] place to live 10/15/2023 Sex and Gender Information Value Date Recorded Sex Assigned at Female 10/06/2023 10:50 AM HOUSEKEEPING AID Gender Identity Female 10/06/2023 10:50 AM HOUSEKEEPING AID Sexual Orientation Straight 10/06/2023 10 :50 AM HOUSEKEEPING AID documented as of this encounter Miscellaneous Notes * Telephone Encounter - Liana Estrada - 12/21/2023 10:54 AM CDT Left message for patient to call back on 12/20. documented in this encounter Plan of Treatment Upcoming Encounters Date Type Department Care Team (Late st Contact Info) Description 02/04/2024 2:15 PM CDT Appointment Division of Gastroenterology in [place], [place] [address] [place] [phone] Katja Umana M.D. [address] [place] [phone] Hayden Smith M.D. [address] [place] [address] 03/21/2024 1:00 PM CDT Virtual Visit Department of Nicotine Dependence, [facility], in [place], [place] [address] [place] [address] documented as of this encounter Visit Diagnoses Not on filedocumented in this encounter Additional Health Concerns Assessment Noted Time PHQ-9 Depression Total Score: 3 10/20/19 24 7:30 AM HOUSEKEEPING AID documented as of this encounter Care Teams Ui Application Developer Relationship Specialty Start Date End Date Elsewhere, Pcp PCP - General Family Medicine 12/07/23 documented as of this encounter
--- OUTSIDE RECORDS SUMMARY | 2024-01-31 14:17 | XMS_ITS | Encounter Summary ---
Author Name Unknown Organization [facility] Address [address] [place] [address] Care Team Providers Care Solar Manufacturer'S Representative Name Role Phone Elsewhere, Pcp Primary Care Provider Unavailabl e Reason for Visit * Reason Onset Date Comments Scheduling 12/20/2023 Encounter Details Date Type Department Care Team (Latest Contact Info) Description 12/20/2023 Clinical Communication Division of Gastroenterology in [place], [place] [address] [place] [address] Katja Umana M.D. [address] [place] [phone] Scheduling Social History Tobacco Use Types Packs/Day Years Used Date Smoking Tobacco: Every Day Cigarettes 0.5 41 Started: 02/11/1983 Passive Smoke Exposure: Never Smokeless Tobacco: Never Alcohol Use Standard Drinks/Week Comments Not Currently 0 (1 standard drink = 0.6 oz pur e alcohol) [facility] Utilities Answer Date Recorded In the past 12 months has [facility] [employer], gas, oil, or water [employer] threatened to shut off services in your [...] Date Recorded Employment status Working with temporary [employer] 10/15/2023 Housing Stability Answer Date Recorded What is your living situation today? I have a [facility] place to live 10/15/2023 Sex and Gender Information Value Date Recorded Sex Assigned at Female 10/06/2023 10:50 AM BEAUTY ADVISOR Gender Identity Female 10/06/2023 10:50 AM BEAUTY ADVISOR Sexual Orientation Straight 10/06/2023 10 :50 AM BEAUTY ADVISOR documented as of this encounter Plan of Treatment Upcoming Encounters Date Type Department Care Team (Late st Contact Info) Description 02/04/2024 2:15 PM CDT Appointment Division of Gastroenterology in [place], [place] [address] [place] [phone] Katja Umana M.D. [address] [place] [phone] Hayden Smith M.D. [address] [place] [phone] 03/21/2024 1:00 PM CDT Virtual Visit Department of Nicotine Dependence, [facility], in [place], [place] [address] [place] [phone] documented as of this encounter Visit Diagnoses Not on filedocumented in this encounter Additional Health Concerns Assessment Noted Time PHQ-9 Depression Total Score: 3 10/20/19 24 7:30 AM BEAUTY ADVISOR documented as of this encounter Care Teams Solar Manufacturer'S Representative Relationship Specialty Start Date End Date Elsewhere, Pcp PCP - General Family Medicine 12/07/23 documented as of this encounter
--- OUTSIDE RECORDS SUMMARY | 2024-01-31 14:17 | XMS_ITS | Encounter Summary ---
Author Name Unknown Organization [facility] Address [address] [place] [address] Care Team Providers Care Audit Director Name Role Phone Elsewhere, Pcp Primary Care Provider Unavailabl e Reason for Referral * Outpatient (Routine) - Authorized Specialty Diagnoses / Procedures Referred By Contac t Referred To Contact Nicotine Dependence Sudha Bernstein M.A., Jerome., C.T.T.S. [address] [place] [phone] [facility] Referral ID Status Reason Start Date Expiration Date V isits Requested Visits Authorized [id number] Authorized 12/20/2023 06/20/2025 1 1 Scheduling Instructions Please schedule this patient for a follow up phone visit on March 21. No need to call it can just be added to my calendar. Encounter Details Date Type Department Care Team (Late st Contact Info) Description 12/20/2023 Orders Only Department of Nicotine Dependence, [facility], in [place], [place] [address] [place] [phone] Sudha Bernstein M.A., DonnS.W., C.T.T.S. [address] [place] [phone] Social History Tobacco Use Types Packs/Day Years Used Date Smoking Tobacco: Every Day Cigarettes 0.5 41 Started: 02/11/1983 Passive Smoke Exposure: Never Smokeless Tobacco: Never Alcohol Use Standard Drinks/Week Comments Not Currently 0 (1 standard drink = 0.6 oz pur e alcohol) [facility] Utilities Answer Date Recorded In [...] living situation today? I have a [facility] place to live 10/15/2023 Sex and Gender Information Value Date Recorded Sex Assigned at Female 10/06/2023 10:50 AM DETECTIVE AND INTELLIGENCE ANALYST Gender Identity Female 10/06/2023 10:50 AM DETECTIVE AND INTELLIGENCE ANALYST Sexual Orientation Straight 10/06/2023 10 :50 AM DETECTIVE AND INTELLIGENCE ANALYST documented as of this encounter Plan of Treatment Upcoming Encounters Date Type Department Care Team (Late st Contact Info) Description 02/04/2024 2:15 PM CDT Appointment Division of Gastroenterology in [place], [place] [address] [place] [phone] Katja Umana M.D. [address] [place] [phone] Hayden Smith M.D. [address] [place] [phone] 03/21/2024 1:00 PM CDT Virtual Visit Department of Nicotine Dependence, [facility] in [place], [place] [address] [place] [phone] Scheduled Referrals Name Type Priority Associated Diagnoses Order Schedule Nicotine Dependence office visit (clinic) Outpatient Referral Routine Expected: 03/21/2024, Expires: 03/20/2025 documented as of this encounter Visit Diagnoses Not on filedocumented in this encounter Additional Health Concerns Assessment Noted Time PHQ-9 Depression Total Score: 3 10/20/19 24 7:30 AM DETECTIVE AND INTELLIGENCE ANALYST documented as of this encounter Care Teams Audit Director Relationship Specialty Start Date End Date Elsewhere, Pcp PCP - General Family Medicine 12/07/23 documented as of this encounter
--- OUTSIDE RECORDS SUMMARY | 2024-01-31 14:18 | XMS_ITS | Encounter Summary ---
Author Name Unknown Organization [facility] Address [address] [place] [address] Care Team Providers Care Pelletising Extruder Operator Name Role Phone Unavailable Primary Care Provider Unavailabl e Reason for Referral * Outpatient (Routine) - Closed Specialty Diagnoses / Procedures Referred By Contlulu t Referred To Contact Nicotine Dependence Sudha Bernstein M.A., DonnS.Dameon., C.T.T.S. [address] [place] [phone] [facility] Referral ID Status Reason Start Date Expiration Date Visits Re quested Visits Authorized [id number] Closed 11/18/2023 05/19/2025 1 1 Scheduling Instructions Please schedule a follow up phone visit. ROPE FABRICATION SUPERVISOR Encounter Details Date Type Department Care Team (Late st Contact Info) Description 11/18/2023 Orders Only Department of Nicotine Dependence, [facility] in [place], [place] [address] [place] [phone] Sudha Bernstein M.A., Edwin.S.W., C.T.T.S. [address] [place] [phone] Social History Tobacco Use Types Packs/Day Years Used Date Smoking Tobacco: Every Day Cigarettes 0.5 40 Smokeless Tobacco: Never Alcohol Use Standard Drinks/Week Comments Not Currently 0 (1 standard drink = 0.6 oz pur e alcohol) [facility] Utilities Answer Date Recorded In the past 12 months has th e [employer], gas, oil, or water company threatened to [...] Sex Assigned at Female 10/06/2023 10:50 AM WIRE ROPE FABRICATION SUPERVISOR Gender Identity Female 10/06/2023 10:50 AM WIRE ROPE FABRICATION SUPERVISOR Sexual Orientation Straight 10/06/2023 10 :50 AM WIRE ROPE FABRICATION SUPERVISOR documented as of this encounter Plan of Treatment Upcoming Encounters Date Type Department Care Team (Late st Contact Info) Description 02/04/2024 2:15 PM CDT Appointment Division of Gastroenterology in [place], [place] [address] [place] [address] Katja Umana M.D. [address] [place] [phone] Hayden Smith M.D. [address] [place] [phone] 03/21/2024 1:00 PM CDT Virtual Visit Department of Nicotine Dependence, [facility] in [place], [place] [address] [place] [address] Scheduled Referrals Name Type Priority Associated Diagnoses Order Schedule Nicotine Dependence office visit (clinic) Outpatient Referral Routine Expected: 12/20/2023, Expires: 02/17/2025 documented as of this encounter Visit Diagnoses Not on filedocumented in this encounter Additional Health Concerns Assessment Noted Time PHQ-9 Depression Total Score: 3 10/20/19 24 7:30 AM WIRE ROPE FABRICATION SUPERVISOR documented as of this encounter
--- OUTSIDE RECORDS SUMMARY | 2024-01-31 14:18 | XMS_ITS | Encounter Summary ---
Author Name Unknown Organization [facility] Address [address] [place] [address] Care Team Providers Care Lpc Name Role Phone Elsewhere, Pcp Primary Care Provider Unavailabl e Reason for Visit * Reason Comments Nicotine Dependence * Outpatient (Routine) - Closed Specialty Diagnoses / Procedures Referred By Contac t Referred To Contact Nicotine Dependence Sudha Bernstein M.A., Yesy.I.C.S.W., C.T.T.S. [address] [place] [phone] [facility] Referral ID Status Reason Start Date Expiration Date Visits Re quested Visits Authorized [id number] Closed 11/18/2023 05/19/2025 1 1 Encounter Details Date Type Department Care Team (Late st Contact Info) Description 12/20/2023 2:00 PM CDT Virtual Visit Department of Nicotine Dependence, [facility], in [place], [place] [address] [place] [phone] Sudha Bernstein M.A., Yesy.I.C.S.W., C.T.T.S. [address] [place] [phone] Nicotine Dependence Cigarettes With Withdrawal (Primary Dx) Social History Tobacco Use Types Packs/Day Years Used Date Smoking Tobacco: Every Day Cigarettes 0.5 41 Started: 02/11/1983 Passive Smoke Exposure: Never Smokeless Tobacco: Never Alcohol Use Standard Drinks/Week Comments Not Currently 0 (1 standard drink = 0.6 oz pur e alcohol) [facility] Utilities Answer Date Recorded In the past 12 months has [employer], gas, oil, or water company threatened to [...] Date Recorded Employment status Working with temporary [employer] tions 10/15/2023 Housing Stability Answer Date Recorded What is your living situation today? I have a [facility] place to live 10/15/2023 Sex and Gender Information Value Date Recorded Sex Assigned at Female 10/06/2023 10:50 AM TAXI DRIVER Gender Identity Female 10/06/2023 10:50 AM TAXI DRIVER Sexual Orientation Straight 10/06/2023 10 :50 AM TAXI DRIVER documented as of this encounter Progress Notes * Sudha Bernstein M.A., L.I.C.S.W., M.S.W. - 12/20/2023 2:00 PM CDT OBJECTIVE Monique Redmond attended a phone follow-up appointment regarding her tobacco use. ASSESSMENT [facility] staff contacted the patient as a [...] patient was asked if she would like [facility] staff to contact her in the [...] PM CDT Appointment Division of Gastroenterology in [place], [place] [address] [place] [phone] Katja Umana M.D. [address] [place] [phone] Hayden Smith M.D. [address] [place] [phone] 03/21/2024 1:00 PM CDT Virtual Visit Department of Nicotine Dependence, [facility], in [place], [place] [address] [place] [phone] documented as of this encounter Visit Diagnoses Diagnosis Nicotine Dependence Cigarettes With Withdrawal- Primary documented in this encounter Additional Health Concerns Assessment Noted Time PHQ-9 Depression Total Score: 3 10/20/19 24 7:30 AM TAXI DRIVER documented as of this encounter Care Teams Lpc Relationship Specialty Start Date End Date Elsewhere, Pcp PCP - General Family Medicine 12/07/23 documented as of this encounter
--- OUTSIDE RECORDS SUMMARY | 2024-01-31 14:18 | XMS_ITS | Encounter Summary ---
Author Name Unknown Organization [facility] Address [address] [place] [address] Care Team Providers Care Motor Tester Name Role Phone Unavailable Primary Care Provider Unavailabl e Reason for Visit * Reason Onset Date Comments NDC Med Request 11/11/2023 Encounter Details Date Type Department Care Team (Latest Contact Info) Description 11/11/2023 Clinical Communication Department of Nicotine Dependence, [facility], in [place], [place] [address] [place] [phone] Sudha Bernstein M.A., L.I.C.S.W., C.T.T.S. [address] [place] [phone] NDC Med Request Social History Tobacco Use Types Packs/Day Years Used Date Smoking Tobacco: Every Day Cigarettes 0.5 40 Smokeless Tobacco: Never Alcohol Use Standard Drinks/Week Comments Not Currently 0 (1 standard drink = 0.6 oz pur e alcohol) [facility] Utilities Answer Date Recorded In the past 12 months has [employer], gas, oil, or water [employer] threatened to shut off services in [...] Date Recorded Employment status Working with temporary [employer] 10/15/2023 Housing Stability Answer Date Recorded What is your living situation today? I have a [facility] place to live 10/15/2023 Sex and Gender Information Value Date Recorded Sex Assigned at Female 10/06/2023 10:50 AM RECORDING ENGINEER Gender Identity Female 10/06/2023 10:50 AM RECORDING ENGINEER Sexual Orientation Straight 10/06/2023 10 :50 AM RECORDING ENGINEER documented as of this encounter Miscellaneous Notes * Telephone Encounter - Sudha Bernstein M.A., L.I.C.S.W., M.S.W. - 11/11/2023 11:39 AM CST Sandra, this patient is interested in having a prescription sent to [facility] in [place], [place] for the following if appropriate after [...] if you have any questions. Thank you. RDING ENGINEER documented in this encounter Plan of Treatment Upcoming Encounters Date Type Department Care Team (Late st Contact Info) Description 02/04/2024 2:15 PM CDT Appointment Division of Gastroenterology in [place], [place] [address] [place] [phone] Katja Umana M.D. [address] [place] [phone] Hayden Smith M.D. [address] [place] [phone] 03/21/2024 1:00 PM CDT Virtual Visit Department of Nicotine Dependence, [facility], in [place], [place] [address] [place] [phone] documented as of this encounter Visit Diagnoses Not on filedocumented in this encounter Additional Health Concerns Assessment Noted Time PHQ-9 Depression Total Score: 3 10/20/19 24 7:30 AM RECORDING ENGINEER documented as of this encounter
--- OUTSIDE RECORDS SUMMARY | 2024-01-31 14:18 | XMS_ITS | Encounter Summary ---
Author Name Unknown Organization [facility] Address [address] [place] [address] Care Team Providers Care Energy Professional Name Role Phone Elsewhere, Pcp Primary Care Provider Unavailabl e Reason for Referral * Outpatient (Routine) - Authorized Specialty Diagnoses / Procedures Referred By Contac t Referred To Contact Nutrition Diagnoses Alcoholic Cirrhosis Of Liver With Ascites (HCC) Sarcopenia Katja Umana M.D. 200 [place] [phone] [facility] Referral ID Status Reason Start Date Expiration Date V isits Requested Visits Authorized [id number] Authorized 12/09/2023 06/09/2025 1 1 * Outpatient (Routine) - Authorized Specialty Diagnoses / Procedures Referred By Contac t Referred To Contact Diagnoses Alcoholic Cirrhosis Of Liver With Ascites (HCC) Ascites Procedures US Paracentesis with Imaging Guidance Katja Umana M.D. 200 [place] [address] [facility] Referral ID Status Reason Start Date Expiration Date V isits Requested Visits Authorized [id number] Authorized 12/09/2023 12/08/2024 8 8 Reason for Visit * Outpatient (Routine) - Closed Specialty Diagnoses / Procedures Referred By Contact Referred To Contact Gastroenterology and Hepatology Katja Umana M.D. 200 [place] [phone] [facility] Referral ID Status Reason Start Date Expiration Date Visits Re quested Visits Authorized [id number] Closed 10/28/2023 04/28/2025 1 1 Encounter Details Date Type Department Care Team (Latest Contact Info) Description 12/09/2023 4:30 PM CDT Office Visit [facility] in [place], [place] [address] [place] [phone] Katja Umana M.D. [address] [place] [phone] Rose Palacios M.D. 200 [place] [phone] Alcoholic Cirrhosis Of Liver With Ascites (HCC) (Primary Dx); Ascites; Sarcopenia Social History Tobacco Use Types Packs/Day Years Used Date Smoking Tobacco: Every Day Cigarettes 0.5 41 Started: 02/11/1983 Passive Smoke Exposure: Never Smokeless Tobacco: Never Alcohol Use Standard Drinks/Week Comments Not Currently 0 (1 standard drink = 0.6 oz pur e alcohol) [facility] Utilities Answer Date Recorded In the past 12 months has th e [employer], gas, oil, or water [employer] threatened to shut off services in [...] Date Recorded Employment status Working with temporary [employer] 10/15/2023 Housing Stability Answer Date Recorded What is your living situation today? I have a [facility] place to live 10/15/2023 Sex and Gender Information Value Date Recorded Sex Assigned at Female 10/06/2023 10:50 AM WET MIX OPERATOR Gender Identity Female 10/06/2023 10:50 AM WET MIX OPERATOR Sexual Orientation Straight 10/06/2023 10 :50 AM WET MIX OPERATOR documented as of this encounter Last [...] Mrs. Redmond was hospitalized locally from 12/02/2023-12/06/2023 ([facility]) for progressive fatigue and decreased [...] last colonoscopy was performed in 2019 in [place]. I am not able to see this report. She is recommended to follow-up with her PCP for completing surveillance colonoscopy. If she is not able tocomplete this locally, then we can arrange for this to be done at [place]. All questions were answered. This plan will be discussed with Dr. Morales. BILLING: I personally spent over half of a total 35 minutes in counseling and discussion with the patient and coordination of care as described above. Signed: Katja Umana M.D. Gastroenterology and Hepatology Fellow Pager [phone] documented in this encounter Plan of Treatment Upcoming Encounters Date Type Department Care Team (Late st Contact Info) Description 02/04/2024 2:15 PM CDT Appointment Division of Gastroenterology in [place], [place] [address] [place] [phone] Katja Umana M.D. [address] [place] [phone] Hayden Smith M.D. [address] [place] [phone] 03/21/2024 1:00 PM CDT Virtual Visit Department of Nicotine Dependence, [facility], in [place], [place] [address] [place] [address] Scheduled Referrals Name Type Priority Associated Diagnoses [...] Umana M.D. LAB BLOOD ADD-ON [facility] P2 Science - [facility] [address] [place] [address], [place] DTL [address] [address] * (ABNORMAL) Comprehensive Metabolic Panel (12/09/2023 5:16 PM CDT) [facility] Potassium, S 5.0 3.6 - 5.2 [...] CDT Katja Umana M.D. LAB BLOOD ADD-ON [facility] [address] [place] [address], [facility] DTL [facility] [address] [place] [address] * (ABNORMAL) CBC with Differential, Blood (12/09/2023 [...] CDT Katja Umana M.D. LAB BLOOD ADD-ON [facility] [address] [place] [address], [facility] DTL [facility] [address] [place] [phone] [facility] [address] [place] [address] documented in this encounter Visit Diagnoses Diagnosis Alcoholic Cirrhosis Of Liver With Ascites (HCC)- Primary Ascites Sarcopenia Alcoholic Cirrhosis Of Liver With Ascites (HCC) Ascites documented in this encounter Additional Health Concerns Assessment Noted Time PHQ-9 Depression Total Score: 3 10/20/19 24 7:30 AM WET MIX OPERATOR documented as of this encounter Care Teams Energy Professional Relationship Specialty Start Date End Date Elsewhere, Pcp PCP - General Family Medicine 12/07/23 documented as of this encounter
--- OUTSIDE RECORDS SUMMARY | 2024-01-31 14:18 | XMS_ITS | Encounter Summary ---
Author Name Unknown Organization [facility] Address [address] [place] [address] Care Team Providers Care Breaker Unit Assembler Name Role Phone Elsewhere, Pcp Primary Care Provider Unavailabl e Reason for Visit * Reason Comments Nicotine Dependence * Outpatient (Routine) - Closed Specialty Diagnoses / Procedures Referred By Contac t Referred To Contact Nicotine Dependence Sudha Bernstein M.A., Yesy.I.C.S.W., C.T.T.S. [address] [place] [phone] [facility] Referral ID Status Reason Start Date Expiration Date Visits Re quested Visits Authorized [id number] Closed 11/11/2023 05/12/2025 1 1 Encounter Details Date Type Department Care Team (Late st Contact Info) Description 11/18/2023 11:00 AM WREATH AND GARLAND MAKER Virtual Visit Department of Nicotine Dependence, [facility], in [place], [place] [address] [place] [phone] Sudha Bernstein M.A., Yesy.I.C.S.W., C.T.T.S. [address] [place] [phone] Nicotine Dependence Cigarettes With Withdrawal (Primary Dx) Social History Tobacco Use Types Packs/Day Years Used Date Smoking Tobacco: Every Day Cigarettes 0.5 40 Smokeless Tobacco: Never Alcohol Use Standard Drinks/Week Comments Not Currently 0 (1 standard drink = 0.6 oz pur e alcohol) [facility] Utilities Answer Date Recorded In the past 12 months has [employer], gas, oil, or water company threatened [...] Sex Assigned at Female 10/06/2023 10:50 AM WREATH AND GARLAND MAKER Gender Identity Female 10/06/2023 10:50 AM WREATH AND GARLAND MAKER Sexual Orientation Straight 10/06/2023 10 :50 AM WREATH AND GARLAND MAKER documented as of this encounter Progress Notes [...] 10 minutes was spent on tobacco counseling. TH AND GARLAND MAKER documented in this encounter Plan of Treatment Upcoming Encounters Date Type Department Care Team (Late st Contact Info) Description 02/04/2024 2:15 PM CDT Appointment Division of Gastroenterology in [place], [place] [address] [place] [address] Katja Umana M.D. [address] [place] [address] Hayden Smith M.D. [address] [place] [phone] 03/21/2024 1:00 PM CDT Virtual Visit Department of Nicotine Dependence, [facility], in [place], [place] [address] [place] [phone] documented as of this encounter Visit Diagnoses Diagnosis Nicotine Dependence Cigarettes With Withdrawal- Primary documented in this encounter Additional Health Concerns Assessment Noted Time PHQ-9 Depression Total Score: 3 10/20/19 24 7:30 AM WREATH AND GARLAND MAKER documented as of this encounter Care Teams Breaker Unit Assembler Relationship Specialty Start Date End Date Elsewhere, Pcp PCP - General Family Medicine 12/07/23 documented as of this encounter
--- OUTSIDE RECORDS SUMMARY | 2024-01-31 14:18 | XMS_ITS | Encounter Summary ---
Author Name Unknown Organization [facility] Address [address] [place] [address] Care Team Providers Care Toe Former Name Role Phone Elsewhere, Pcp Primary Care Provider Unavailabl e Reason for Visit * Reason Onset Date Comments Pre-visit Intake 12/07/2023 Encounter Details Date Type Department Care Team (Latest Contact Info) Description 12/07/2023 1:45 PM CDT Clinical Communication Virtual Review in [place], [place] 200 [place] [address] Pre-visit Intake Social History Tobacco Use Types Packs/Day Years Used Date Smoking Tobacco: Every Day Cigarettes 0.5 41 Started: 02/11/1983 Passive Smoke Exposure: Never Smokeless Tobacco: Never Alcohol Use Standard Drinks/Week Comments Not Currently 0 (1 standard drink = 0.6 oz pur e alcohol) [facility] Utilities Answer Date Recorded In the [...] Sex Assigned at Female 10/06/2023 10:50 AM DESIGN ENGINEERING MANAGER Gender Identity Female 10/06/2023 10:50 AM DESIGN ENGINEERING MANAGER Sexual Orientation Straight 10/06/2023 10 :50 AM DESIGN ENGINEERING MANAGER documented as of this encounter Plan of Treatment Upcoming Encounters Date Type Department Care Team (Late st Contact Info) Description 02/04/2024 2:15 PM CDT Appointment Division of Gastroenterology in [place], [place] [address] [place] [phone] Katja Umana M.D. [address] [place] [phone] Hayden Smith M.D. [address] [place] [phone] 03/21/2024 1:00 PM CDT Virtual Visit Department of Nicotine Dependence, [facility], in [place], [place] [address] [place] [address] documented as of this encounter Visit Diagnoses Not on filedocumented in this encounter Additional Health Concerns Assessment Noted Time PHQ-9 Depression Total Score: 3 10/20/19 24 7:30 AM DESIGN ENGINEERING MANAGER documented as of this encounter Care Teams Toe Former Relationship Specialty Start Date End Date Elsewhere, Pcp PCP - General Family Medicine 12/07/23 documented as of this encounter
--- OUTSIDE RECORDS SUMMARY | 2024-01-31 14:18 | XMS_ITS | Encounter Summary ---
Author Name Unknown Organization [facility] Address [address] [place] [address] Care Team Providers Care Senior Mortgage Loan Processor Name Role Phone Unavailable Primary Care Provider Unavailabl e Encounter Details Date Type Department Care Team (Latest Contact Info) Description 11/01/2023 12:28 PM UI APPLICATION DEVELOPER - 11/01/2023 11:59 PM UI APPLICATION DEVELOPER Hospital Encounter Department of Laboratory Medicine in [address] [phone] Katja Umana M.D. [address] [place] [address] Alcoholic Cirrhosis Of Liver With Ascites (HCC) Discharge Disposition: Home or Self Care Social History Tobacco Use Types Packs/Day Years Used Date Smoking Tobacco: Every Day Cigarettes 0.5 40 Smokeless Tobacco: Never Alcohol Use Standard Drinks/Week Comments Not Currently 0 (1 standard drink = 0.6 oz pur e alcohol) [facility] Utilities Answer Date Recorded In the past 12 months has [employer], gas, oil, or water [employer] threatened to shut off services in your [...] Date Recorded Employment status Working with temporary [employer] 10/15/2023 Housing Stability Answer Date Recorded What is your living situation today? I have a [facility] place to live 10/15/2023 Sex and Gender Information Value Date Recorded Sex Assigned at Female 10/06/2023 10:50 AM UI APPLICATION DEVELOPER Gender Identity Female 10/06/2023 10:50 AM UI APPLICATION DEVELOPER Sexual Orientation Straight 10/06/2023 10 :50 AM UI APPLICATION DEVELOPER documented as of this encounter Medications at [...] PM CDT Appointment Division of Gastroenterology in [place], [place] [address] [place] [phone] Katja Umana M.D. [address] [place] [phone] Hayden Smith M.D. [address] [place] [phone] 03/21/2024 1:00 PM CDT Virtual Visit Department of Nicotine Dependence, [facility], in [place], [place] [address] [place] [phone] documented as of this encounter Procedures Procedure Name Priority Date/Time Associated Diagnosis Comments BASIC METABOLIC PANEL, S/P Routine 11/01/2023 12:49 PM UI APPLICATION DEVELOPER Alcoholic Cirrhosis Of Liver With Ascites (HCC) documented in this encounter Results * (ABNORMAL) Basic Metabolic Panel (11/01/2023 12:49 PM UI APPLICATION DEVELOPER) Potassium, P 4.1 3.6 - 5.2 mmol/L 11/01/2023 1:13 PM UI APPLICATION DEVELOPER CNFL Sodium, P 128(L) 135 - 145 mmol/L 11/01/2023 1:13 PM UI APPLICATION DEVELOPER CNFL Chloride, P 95(L) 98 - 107 mmol/L 11/01/2023 1:13 PM UI APPLICATION DEVELOPER CNFL Bicarbonate, P 26 22 - 29 mmol/L 11/01/2023 1:13 PM UI APPLICATION DEVELOPER CNFL Anion Gap, P 7 7 - 15 11/01/2023 1:13 PM UI APPLICATION DEVELOPER CNFL BUN (Blood Urea Nitrogen), P 10 6 - 21 mg/dL 11/01/2023 1:13 PM UI APPLICATION DEVELOPER CNFL Creatinine 0.42(L) 0.59 - 1.04 mg/dL 11/01/2023 1:13 PM UI APPLICATION DEVELOPER CNFL Estimated GFR (eGFR) >90 >=60 mL/min/BSA 11/01/2023 1:13 PM UI APPLICATION DEVELOPER CNFL Comment: Estimated GFR calculated using the 2020 CKD_EPI creatinine equation. Calcium, Total, P 8.3(L) 8.8 - 10.2 mg/dL 11/01/2023 1:13 PM UI APPLICATION DEVELOPER CNFL Glucose, P 105 70 - 140 mg/dL 11/01/2023 1:13 PM UI APPLICATION DEVELOPER CNFL Blood (Blood, Venous) 11/01/2023 12:49 PM UI APPLICATION DEVELOPER 11/01/2023 12:54 PM UI APPLICATION DEVELOPER Katja Umana M.D. LAB BLOOD ADD-ON Performing Organization Address City/State/[facility] Co de Phone Number [facility] [address] [place] [phone], [facility] CNFL [facility] in [address] [address] documented in this encounter Visit Diagnoses Diagnosis Alcoholic Cirrhosis Of Liver With Ascites (HCC) documented in this encounter Additional Health Concerns Assessment Noted Time PHQ-9 Depression Total Score: 3 10/20/19 24 7:30 AM UI APPLICATION DEVELOPER documented as of this encounter
--- OUTSIDE RECORDS SUMMARY | 2024-01-31 14:18 | XMS_ITS | Encounter Summary ---
Author Name Unknown Organization [facility] Address [address] [place] [address] Care Team Providers Care Club Licensee Name Role Phone Unavailable Primary Care Provider Unavailabl e Reason for Referral * Outpatient (Routine) - Closed Specialty Diagnoses / Procedures Referred By Contact Referred To Contact Gastroenterology and Hepatology Katja Aguilera M.D. [address] [place] [phone] [facility] Referral ID Status Reason Start Date Expiration Date Visits Re quested Visits Authorized [id number] Closed 10/28/2023 04/28/2025 1 1 PRESIDENT OF BUSINESS DEVELOPMENT Encounter Details Date Type Department Care Team (Late st Contact Info) Description 10/28/2023 Orders Only [facility] in [place], [place] [address] [place] [phone] Katja Aguilera M.D. [address] [place] [phone] Alcoholic Cirrhosis Of Liver With Ascites (HCC) (Primary Dx) Social History Tobacco Use Types Packs/Day Years Used Date Smoking Tobacco: Every Day Cigarettes 0.5 40 Smokeless Tobacco: Never Alcohol Use Standard Drinks/Week Comments Not Currently 0 (1 standard drink = 0.6 oz pur e alcohol) [facility] Utilities Answer Date Recorded In the past 12 months has [employer], gas, oil, or water company threatened [...] your living situation today? I have a [facility] place to live 10/15/2023 Sex and Gender Information Value Date Recorded Sex Assigned at Female 10/06/2023 10:50 AM VICE PRESIDENT OF BUSINESS DEVELOPMENT Gender Identity Female 10/06/2023 10:50 AM VICE PRESIDENT OF BUSINESS DEVELOPMENT Sexual Orientation Straight 10/06/2023 10 :50 AM VICE PRESIDENT OF BUSINESS DEVELOPMENT documented as of this encounter Miscellaneous Notes * Addendum Note - Katja Aguilera M.D. - 10/28/2023 2:39 PM CSTAddended by: KATJA AGUILERA on: 10/28/2023 02:48 PM Modules accepted: Orders PRESIDENT OF BUSINESS DEVELOPMENT documented in this encounter Plan of Treatment Upcoming Encounters Date Type Department Care Team (Late st Contact Info) Description 02/04/2024 2:15 PM CDT Appointment Division of Gastroenterology in [place], [place] [address] [place] [phone] Katja Aguilera M.D. [address] [place] [phone] Hayden Smith M.D. [address] [place] [phone] 03/21/2024 1:00 PM CDT Virtual Visit Department of Nicotine Dependence, [facility] in [place], [place] [address] [place] [phone] Scheduled Referrals Name Type Priority Associated Diagnoses Order Schedule Gastroenterology and Hepatology office visit (clinic) Outpatient Referral Routine Expected: 12/14/2023, Expires: 01/25/2025 documented as of this encounter Results * (ABNORMAL) Basic Metabolic Panel (11/01/2023 12:49 PM VICE PRESIDENT OF BUSINESS DEVELOPMENT) Potassium, P 4.1 3.6 - 5.2 mmol/L 11/01/2023 1:13 PM VICE PRESIDENT OF BUSINESS DEVELOPMENT CNFL Sodium, P 128(L) 135 - 145 mmol/L 11/01/2023 1:13 PM VICE PRESIDENT OF BUSINESS DEVELOPMENT CNFL Chloride, P 95(L) 98 - 107 mmol/L 11/01/2023 1:13 PM VICE PRESIDENT OF BUSINESS DEVELOPMENT CNFL Bicarbonate, P 26 22 - 29 mmol/L 11/01/2023 1:13 PM VICE PRESIDENT OF BUSINESS DEVELOPMENT CNFL Anion Gap, P 7 7 - 15 11/01/2023 1:13 PM VICE PRESIDENT OF BUSINESS DEVELOPMENT CNFL BUN (Blood Urea Nitrogen), P 10 6 - 21 mg/dL 11/01/2023 1:13 PM VICE PRESIDENT OF BUSINESS DEVELOPMENT CNFL Creatinine 0.42(L) 0.59 - 1.04 mg/dL 11/01/2023 1:13 PM VICE PRESIDENT OF BUSINESS DEVELOPMENT CNFL Estimated GFR (eGFR) >90 >=60 mL/min/BSA 11/01/2023 1:13 PM VICE PRESIDENT OF BUSINESS DEVELOPMENT CNFL Comment: Estimated GFR calculated using the 2020 CKD_EPI creatinine equation. Calcium, Total, P 8.3(L) 8.8 - 10.2 mg/dL 11/01/2023 1:13 PM VICE PRESIDENT OF BUSINESS DEVELOPMENT CNFL Glucose, P 105 70 - 140 mg/dL 11/01/2023 1:13 PM VICE PRESIDENT OF BUSINESS DEVELOPMENT CNFL Blood (Blood, Venous) 11/01/2023 12:49 PM VICE PRESIDENT OF BUSINESS DEVELOPMENT 11/01/2023 12:54 PM VICE PRESIDENT OF BUSINESS DEVELOPMENT Katja Aguilera M.D. LAB BLOOD ADD-ON [facility] [address] [place] [address], [facility] CNFL [facility] [place] [address] documented in this encounter Visit Diagnoses Diagnosis Alcoholic Cirrhosis Of Liver With Ascites (HCC)- Primary documented in this encounter Additional Health Concerns Assessment Noted Time PHQ-9 Depression Total Score: 3 10/20/19 24 7:30 AM VICE PRESIDENT OF BUSINESS DEVELOPMENT documented as of this encounter
--- OUTSIDE RECORDS SUMMARY | 2024-01-31 14:18 | XMS_ITS | Encounter Summary ---
Author Name Unknown Organization [facility] Address [address] [place] [address] Care Team Providers Care Tire Classifier Name Role Phone Elsewhere, Pcp Primary Care Provider Unavailabl e Reason for Referral * Outpatient (Routine) - Authorized Specialty Diagnoses / Procedures Referred By Dotty t Referred To Contact Diagnoses Ascites Procedures US Paracentesis with Imaging Guidance Katja Umana M.D. [address] [place] [phone] [facility] Referral ID Status Reason Start Date Expiration Date V isits Requested Visits Authorized [id number] Authorized 11/23/2023 11/22/2024 1 1 Reason for Visit * Reason Onset Date Comments Order Request 11/22/2023 Encounter Details Date Type Department Care Team (Latest Contact Info) Description 11/22/2023 Clinical Communication Division of Gastroenterology in [place], [place] [address] [place] [phone] Katja Umana M.D. [address] [place] [phone] Order Request Social History Tobacco Use Types Packs/Day Years Used Date Smoking Tobacco: Every Day Cigarettes 0.5 40 Smokeless Tobacco: Never Alcohol Use Standard Drinks/Week Comments Not Currently 0 (1 standard drink = 0.6 oz pur e alcohol) [facility] Utilities Answer Date Recorded In the [...] Date Recorded Employment status Working with temporary [employer] 10/15/2023 Housing Stability Answer Date Recorded What is your living situation today? I have a [facility] place to live 10/15/2023 Sex and Gender Information Value Date Recorded Sex Assigned at Female 10/06/2023 10:50 AM TOOL SALVAGE WORKER Gender Identity Female 10/06/2023 10:50 AM TOOL SALVAGE WORKER Sexual Orientation Straight 10/06/2023 10 :50 AM TOOL SALVAGE WORKER documented as of this encounter Plan of Treatment Upcoming Encounters Date Type Department Care Team (Late st Contact Info) Description 02/04/2024 2:15 PM CDT Appointment Division of Gastroenterology in [place], [place] [address] [place] [phone] Katja Umana M.D. 200 [place] [phone] Hayden Smith M.D. 200 [place] [phone] 03/21/2024 1:00 PM CDT Virtual Visit Department of Nicotine Dependence, [facility], in [place], [place] 200 [place] [phone] Scheduled Orders Name Type Priority Associated Diagnoses Order Schedule US Paracentesis with Imaging Guidance Imaging RAD - Routine (most inpatients and all outpatients) Ascites Expected: 12/03/2023, Expires: 02/22/2025 documented as of this encounter Visit Diagnoses Diagnosis Ascites- Primary documented in this encounter Additional Health Concerns Assessment Noted Time PHQ-9 Depression Total Score: 3 10/20/19 24 7:30 AM TOOL SALVAGE WORKER documented as of this encounter Care Teams Tire Classifier Relationship Specialty Start Date End Date Elsewhere, Pcp PCP - General Family Medicine 12/07/23 documented as of this encounter
--- OUTSIDE RECORDS SUMMARY | 2024-01-31 14:18 | XMS_ITS | Encounter Summary ---
Author Name Unknown Organization [facility] Address [address] [place] [address] Care Team Providers Care Results Engineer Name Role Phone Elsewhere, Pcp Primary Care Provider Unavailabl e Reason for Referral * Outpatient (Routine) - Authorized Specialty Diagnoses / Procedures Referred By Contac t Referred To Contact Diagnoses Alcoholic Cirrhosis Of Liver With Ascites (HCC) Ascites Procedures US Paracentesis with Imaging Guidance Katja Umana M.D. 200 [place] [phone] [facility] Referral ID Status Reason Start Date Expiration Date V isits Requested Visits Authorized [id number] Authorized 12/09/2023 12/08/2024 8 8 Reason for Visit * Outpatient (Routine) - Authorized Specialty Diagnoses / Procedures Referred By Dotty oakes Referred To Contact Diagnoses Alcoholic Cirrhosis Of Liver With Ascites (HCC) Ascites Procedures US Paracentesis with Imaging Guidance Katja Umana M.D. 200 [place] [phone] [facility] Referral ID Status Reason Start Date Expiration Date V isits Requested Visits Authorized [id number] Authorized 12/09/2023 12/08/2024 8 8 Encounter Details Date Type Department Care Team (Latest Contact Info) Description 12/16/2023 9:34 AM CDT - 12/16/2023 11:22 AM CDT Hospital Encounter Department of Radiology, [facility], in [place], [place] [address] [place] [phone] Katja Umana M.D. [address] [place] [phone] Alcoholic Cirrhosis Of Liver With Ascites (HCC); [...] th e electric, gas, oil, or water [employer] threatened to shut off services in your [...] Assigned at Female 10/06/2023 10:50 AM WREATH MAKER Gender Identity Female 10/06/2023 10:50 AM WREATH MAKER Sexual Orientation Straight 10/06/2023 10 :50 AM WREATH MAKER documented as of this encounter Last Filed [...] PM CDT Appointment Division of Gastroenterology in [place], [place] [address] [place] [phone] Katja Umana M.D. [address] [place] [phone] Hayden Smith M.D. [address] [place] [phone] 03/21/2024 1:00 PM CDT Virtual Visit Department of Nicotine Dependence, [facility] in [place], [place] [address] [place] [phone] documented as of this encounter Procedures Procedure [...] Score: 3 10/20/19 24 7:30 AM WREATH MAKER documented as of this encounter Care Teams Results Engineer Relationship Specialty Start Date End Date Elsewhere, Pcp PCP - General Family Medicine 12/07/23 documented as of this encounter
--- OUTSIDE RECORDS SUMMARY | 2024-01-31 14:18 | XMS_ITS | Encounter Summary ---
Author Name Unknown Organization [facility] Address [address] [place] [address] Care Team Providers Care Phone Banker Name Role Phone Unavailable Primary Care Provider Unavailabl e Reason for Visit * Reason Comments Nicotine Dependence * Outpatient (Routine) - Closed Specialty Diagnoses / Procedures Referred By Contac t Referred To Contact Nicotine Dependence Sudha Bernstein M.A., Yesy.I.C.S.W., C.T.T.S. [address] [place] [phone] [facility] Referral ID Status Reason Start Date Expiration Date Visits Re quested Visits Authorized [id number] Closed 10/28/2023 04/28/2025 1 1 Encounter Details Date Type Department Care Team (Late st Contact Info) Description 11/11/2023 11:00 AM PLASTIC EYE TECHNICIAN Virtual Visit Department of Nicotine Dependence, [facility], in [place], [place] [address] [place] [phone] Sudha Bernstein M.A., Yesy.I.C.S.W., C.T.T.S. [address] [place] [phone] Nicotine Dependence Cigarettes With Withdrawal (Primary Dx) Social History Tobacco Use Types Packs/Day Years Used Date Smoking Tobacco: Every Day Cigarettes 0.5 40 Smokeless Tobacco: Never Alcohol Use Standard Drinks/Week Comments Not Currently 0 (1 standard drink = 0.6 oz pur e alcohol) [facility] Utilities Answer Date Recorded In the past 12 months has [email or web address], gas, oil, or water company threatened [...] Sex Assigned at Female 10/06/2023 10:50 AM PLASTIC EYE TECHNICIAN Gender Identity Female 10/06/2023 10:50 AM PLASTIC EYE TECHNICIAN Sexual Orientation Straight 10/06/2023 10 :50 AM PLASTIC EYE TECHNICIAN documented as of this encounter Progress Notes [...] concerns. The patient denied interest in having [facility] staff ask the [facility] medicalprovider if they recommend a different dose [...] to tape and the patient was informed [facility] staff can ask the [facility] medical provider to write on the prescription [...] 25 minutes was spent on tobacco counseling. TIC EYE TECHNICIAN documented in this encounter Plan of Treatment Upcoming Encounters Date Type Department Care Team (Late st Contact Info) Description 02/04/2024 2:15 PM CDT Appointment Division of Gastroenterology in [place], [place] [address] [place] [phone] Katja Umana M.D. [address] [place] [phone] Hayden Smith M.D. [address] [place] [phone] 03/21/2024 1:00 PM CDT Virtual Visit Department of Nicotine Dependence, [facility], in [place], [place] [address] [place] [phone] documented as of this encounter Visit Diagnoses Diagnosis Nicotine Dependence Cigarettes With Withdrawal- Primary documented in this encounter Additional Health Concerns Assessment Noted Time PHQ-9 Depression Total Score: 3 10/20/19 24 7:30 AM PLASTIC EYE TECHNICIAN documented as of this encounter
--- OUTSIDE RECORDS SUMMARY | 2024-01-31 14:18 | XMS_ITS | Encounter Summary ---
Author Name Unknown Organization [facility] Address [address] [place] [address] Care Team Providers Care Rare/Endangered Species Specialist Name Role Phone Unavailable Primary Care Provider Unavailabl e Reason for Referral * Outpatient (Routine) - Closed Specialty Diagnoses / Procedures Referred By Contac t Referred To Contact Diagnoses Ascites Procedures US Paracentesis with Imaging Guidance Felipe Morales M.D. 200 [place] [phone] [facility] Referral ID Status Reason Start Date Expiration Date Visits Re quested Visits Authorized [id number] Closed 10/11/2023 10/10/2024 1 1 CTOR PATIENT ACCOUNTING Reason for Visit * Outpatient (Routine) - Closed Specialty Diagnoses / Procedures Referred By Dotty oakes Referred To Contact Diagnoses Ascites Procedures US Paracentesis with Imaging Guidance Felipe Morales M.D. 200 [place] [phone] [facility] Referral ID Status Reason Start Date Expiration Date Visits Re quested Visits Authorized [id number] Closed 10/11/2023 10/10/2024 1 1 Encounter Details Date Type Department Care Team (Latest Contact Info) Description 11/05/2023 9:29 AM DIRECTOR PATIENT ACCOUNTING - 11/05/2023 12:20 PM DIRECTOR PATIENT ACCOUNTING Hospital Encounter Department of Radiology, [facility], in [place], [place] [address] [place] [address] Felipe Morales M.D. [address] [place] [phone] Ascites Discharge Disposition: Home or Self Care Social History Tobacco Use Types Packs/Day Years Used Date Smoking Tobacco: Every Day Cigarettes 0.5 40 Smokeless Tobacco: Never Alcohol Use Standard Drinks/Week Comments Not Currently 0 (1 standard drink = 0.6 oz pur e alcohol) [facility] Utilities Answer Date Recorded In the past 12 months has th e [employer], gas, oil, or water company threatened to [...] Assigned at Female 10/06/2023 10:50 AM DIRECTOR PATIENT ACCOUNTING Gender Identity Female 10/06/2023 10:50 AM DIRECTOR PATIENT ACCOUNTING Sexual Orientation Straight 10/06/2023 10 :50 AM DIRECTOR PATIENT ACCOUNTING documented as of this encounter Last Filed Vital Signs Vital Sign Reading Time Taken Comments Blood Pressure 106/56 11/05/2023 11:17 AM DIRECTOR PATIENT ACCOUNTING Pulse 88 11/05/2023 11:17 AM DIRECTOR PATIENT ACCOUNTING Temperature - - Respiratory Rate - - Oxygen Saturation 100% 11/05/2023 11:17 AM DIRECTOR PATIENT ACCOUNTING Inhaled Oxygen Concentration - - Weight - - Height - - Body Mass Index - - documented in this encounter Discharge Instructions * Attachments The following attachments cannot be sent through Care Everywhere. * Paracentesis (Swedish) documented in this encounter Medications at Time [...] PM CDT Appointment Division of Gastroenterology in [place], [place] [address] [place] [phone] Katja Umana M.D. [address] [place] [phone] Hayden Smith M.D. [address] [place] [phone] 03/21/2024 1:00 PM CDT Virtual Visit Department of Nicotine Dependence, [facility] in [place], [place] [address] [place] [address] documented as of this encounter Procedures Procedure Name Priority Date/Time Associated Diagnosis Comments US PARACENTESIS WITH IMAGING GUIDANCE RAD - Routine (most inpatients and all outpatients) 11/05/2023 11:25 AM DIRECTOR PATIENT ACCOUNTING Ascites BACTERIAL CULTURE, AEROBIC + SUSC Timed 11/05/2023 10:07 AM DIRECTOR PATIENT ACCOUNTING Ascites CELL COUNT AND DIFFERENTIAL, BF Timed 11/05/2023 10:07 AM DIRECTOR PATIENT ACCOUNTING Ascites documented in this encounter Results * US Paracentesis with Imaging Guidance (11/05/2023 11:25 AM DIRECTOR PATIENT ACCOUNTING) Anatomical Region Laterality Modality Abdomen, Ultrasound RST LOS, Ultrasound ARZ LOS, Procedure FLA LOS, Abdominal FLA LOS, Procedural, Procedural NWWI LOS N/A Ultrasound Impressions 11/05/2023 11:28 AM DIRECTOR PATIENT ACCOUNTING Ultrasound-guided diagnostic and therapeutic paracentesis. NR Narrative 11/05/2023 11:28 AM DIRECTOR PATIENT ACCOUNTING EXAM: US PARACENTESIS WITH IMAGING GUIDANCE PRE-PROCEDURE: [...] lower quadrant peritoneal space. Needle size: 5 Tamazight centesis catheter. Volume aspirated: 6.8 liters aspirated, [...] lower quadrant peritoneal space. Needle size: 5 Tamazight centesis catheter. Volume aspirated: 6.8 liters aspirated, [...] and Differential, Body Fluid (11/05/2023 10:07 AM DIRECTOR PATIENT ACCOUNTING) Fluid Type Peritoneal /Paracente sis 11/05/2023 11:13 AM DIRECTOR PATIENT ACCOUNTING DHPM Gross Appearance Serous 11/05/19 24 11:13 AM DIRECTOR PATIENT ACCOUNTING DHPM Total Nucleated Cells 282 /mcL 11/05/2023 11:13 AM DIRECTOR PATIENT ACCOUNTING DHPM Comment: ----REFERENCE VALUE---- Synovial: <150 /mcL Peritoneal: <500 /mcL Pleural: <500 /mcL Pericardial: <500 /mcL ----ADDITIONAL INFORMATION---- This test has been modified from the automotive product specialist's instructions. Its performance characteristics were determined by [facility] in a manner consistent with CLIA requirements. This test has not been cleared or approved by the U.S. Food and Drug Administration. Neutrophils 3 % 11/05/2023 12:54 PM DIRECTOR PATIENT ACCOUNTING DHPM Comment: ----REFERENCE VALUE---- Synovial: <25% Peritoneal: <25% Pleural: <25% Pericardial: <25% Lymphocytes 26 Synovial <75% % 11/05/2023 12:54 PM DIRECTOR PATIENT ACCOUNTING DHPM Monocytes/Macropha ges 64 Synovial <70% % 11/05/2023 12:54 PM DIRECTOR PATIENT ACCOUNTING DHPM Other Cells 7 % 11/05/2023 12:54 PM DIRECTOR PATIENT ACCOUNTING DHPM Comment: ----REFERENCE VALUE---- The reference range and other method performance specifications have not been established for this bodyfluid. The test result must be integrated into the clinical context for interpretation. Other Cells Are: See Comment 11/05/2023 12:54 PM DIRECTOR PATIENT ACCOUNTING DHPM Comment:Mesothelial cells Comment See Comment 11/05/2023 12:54 PM DIRECTOR PATIENT ACCOUNTING DHPM Comment:No blasts or maligna nt cells seen.Erythrophagocytosis present. Reviewed by: Jose 11/05/2023 12:54 PM DIRECTOR PATIENT ACCOUNTING DHPM Fluid (Peritoneal Fluid) 11/05/2023 10:07 AM DIRECTOR PATIENT ACCOUNTING Felipe Morales M.D. LAB BODY FLUIDS AND STOOLS ORDERABLES Performing Organization Address City/State/[facility] Co de Phone Number [facility] [place] 200 [place] [address], [facility] 200 [place] [address] * Bacterial Culture, Aerobic + Susceptibility (11/05/2023 10:07 AM DIRECTOR PATIENT ACCOUNTING) Bacterial Culture, Aerobic + Susc No growth after 5 days of incubation. 2023 7:33 AM DIRECTOR PATIENT ACCOUNTING DTL Fluid (Peritoneal Fluid) 11/05/2023 10:07 AM DIRECTOR PATIENT ACCOUNTING Narrative [facility] [place] - 2023 7:33 AM DIRECTOR PATIENT ACCOUNTING Bacterial Culture: Received Bactec aerobic and Bactec anaerobic bottles Felipe Morales M.D. LAB MICROBIOLOGY - GENERAL ORDERABLES Performing Organization Address [facility] Co de Phone Number [facility] [place] 200 [place] [address], [facility] 200 [place] [address] documented in this encounter Visit Diagnoses Diagnosis [...] 100 mL/hr New Bag 11/05/2023 10:39 AM DIRECTOR PATIENT ACCOUNTING 25 g albumin human 25 % injection 25 g 25 g, intravenous, Once, On Wed11/05/23 at 1130, For 1 dose, If no infusion rate specified: Administer the 25% solution at 100 mL/hr New Bag 11/05/2023 11:20 AM DIRECTOR PATIENT ACCOUNTING 25 g lidocaine 10 mg/mL (1 %) injection (XYLOCAINE) As needed, Starting on Wed11/05/23 at 1023, Intra-Op Given 11/05/2023 10:23 AM DIRECTOR PATIENT ACCOUNTING 10 mL Abdominal Tissue documented in this encounter Active and Recently Administered Medications Times are shown in DIRECTOR PATIENT ACCOUNTING. Scheduled Medication Order 11/03/2023 11/04/2023 11/05/2023 albumin [...] Score: 3 10/20/19 24 7:30 AM DIRECTOR PATIENT ACCOUNTING documented as of this encounter
--- OUTSIDE RECORDS SUMMARY | 2024-01-31 14:18 | XMS_ITS | Encounter Summary ---
Author Name Unknown Organization [facility] Address [address] [place] [address] Care Team Providers Care Lever Tender Name Role Phone Unavailable Primary Care Provider Unavailabl e Reason for Referral * Outpatient (Routine) - Closed Specialty Diagnoses / Procedures Referred By Contlulu t Referred To Contact Nicotine Dependence Sudha Bernstein M.A., DonnS.W., C.T.T.S. [address] [place] [phone] [facility] Referral ID Status Reason Start Date Expiration Date Visits Re quested Visits Authorized [id number] Closed 11/11/2023 05/12/2025 1 1 Scheduling Instructions Please schedule a follow up phone visit at 11:00am, CLINICAL RESOURCE Encounter Details Date Type Department Care Team (Late st Contact Info) Description 11/11/2023 Orders Only Department of Nicotine Dependence, [facility] in [place], [place] [address] [place] [phone] Sudha Bernstein M.A., Edwin.S.W., C.T.T.S. [address] [place] [phone] Social History Tobacco Use Types Packs/Day Years Used Date Smoking Tobacco: Every Day Cigarettes 0.5 40 Smokeless Tobacco: Never Alcohol Use Standard Drinks/Week Comments Not Currently 0 (1 standard drink = 0.6 oz pur e alcohol) [facility] Utilities Answer Date Recorded In the [...] Date Recorded Employment status Working with temporary [employer] tions 10/15/2023 Housing Stability Answer Date Recorded What is your living situation today? I have a [facility] place to live 10/15/2023 Sex and Gender Information Value Date Recorded Sex Assigned at Female 10/06/2023 10:50 AM RN CLINICAL RESOURCE Gender Identity Female 10/06/2023 10:50 AM RN CLINICAL RESOURCE Sexual Orientation Straight 10/06/2023 10 :50 AM RN CLINICAL RESOURCE documented as of this encounter Plan of Treatment Upcoming Encounters Date Type Department Care Team (Late st Contact Info) Description 02/04/2024 2:15 PM CDT Appointment Division of Gastroenterology in [place], [place] [address] [place] [phone] Katja Umana M.D. [address] [place] [phone] Hayden Smith M.D. [address] [place] [phone] 03/21/2024 1:00 PM CDT Virtual Visit Department of Nicotine Dependence, [facility], in [place], [place] [address] [place] [address] Scheduled Referrals Name Type Priority Associated Diagnoses Order Schedule Nicotine Dependence office visit (clinic) Outpatient Referral Routine Expected: 11/18/2023, Expires: 02/08/2025 documented as of this encounter Visit Diagnoses Not on filedocumented in this encounter Additional Health Concerns Assessment Noted Time PHQ-9 Depression Total Score: 3 10/20/19 24 7:30 AM RN CLINICAL RESOURCE documented as of this encounter
--- OUTSIDE RECORDS SUMMARY | 2024-01-31 14:18 | XMS_ITS | Encounter Summary ---
Author Name Unknown Organization [facility] Address [address] [place] [address] Care Team Providers Care Electrical Service Technician Name Role Phone Elsewhere, Pcp Primary Care Provider Unavailabl e Reason for Visit * Outpatient (Routine) - Closed Specialty Diagnoses / Procedures Referred By Dotty t Referred To Contact Preventive Medicine Diagnoses Alcoholic Cirrhosis Of Liver With Ascites (HCC) Katja Umana M.D. [address] [place] [phone] [facility] Referral ID Status Reason Start Date Expiration Date Visits Re quested Visits Authorized [id number] Closed 10/15/2023 04/15/2025 1 1 Encounter Details Date Type Department Care Team (Latest Contact Info) Description 12/08/2023 10:30 AM CDT Comprehensive Visit Section of Infectious Diseases in [place], [place] [address] [place] [phone] Katja Umana M.D. [address] [place] [phone] Brianna Anglin APRN, C.N.P., D.N.P. [address] [place] [phone] Counseling And Review Vaccination Status (Primary [...] = 0.6 oz pur e alcohol) [facility] Utilities Answer Date Recorded In [...] Sex Assigned at Female 10/06/2023 10:50 AM MINE ADMINISTRATOR SUPERVISOR Gender Identity Female 10/06/2023 10:50 AM MINE ADMINISTRATOR SUPERVISOR Sexual Orientation Straight 10/06/2023 10 :50 AM MINE ADMINISTRATOR SUPERVISOR documented as of this encounter Patient Instructions [...] followed by the Hepatobiliary team here at [facility]. They have requested for patient to be [...] Viral Disease (10/06/2023). Past Surgical History Monique Redomnd has a past surgical history that includes [...] PM CDT Appointment Division of Gastroenterology in [place], [place] [address] [place] [phone] Katja Umana M.D. [address] [place] [phone] Hayden Smith M.D. 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
--- OUTSIDE RECORDS SUMMARY | 2024-01-31 14:18 | XMS_ITS | Encounter Summary ---
Author Name Unknown Organization [facility] Address [address] [place] [address] Care Team Providers Care Track Equipment Operator Name Role Phone Unavailable Primary Care Provider Unavailabl e Reason for Referral * Outpatient (Routine) - Closed Specialty Diagnoses / Procedures Referred By Contac t Referred To Contact Diagnoses Ascites Procedures US Paracentesis with Imaging Guidance Felipe Morales M.D. [address] [place] [phone] [facility] Referral ID Status Reason Start Date Expiration Date Visits Re quested Visits Authorized [id number] Closed 10/11/2023 10/10/2024 1 1 ENTARY READING SPECIALIST Reason for Visit * Outpatient (Routine) - Closed Specialty Diagnoses / Procedures Referred By Dotty oakes Referred To Contact Diagnoses Ascites Procedures US Paracentesis with Imaging Guidance Felipe Morales M.D. 200 [place] [phone] [facility] Referral ID Status Reason Start Date Expiration Date Visits Re quested Visits Authorized [id number] Closed 10/11/2023 10/10/2024 1 1 Encounter Details Date Type Department Care Team (Latest Contact Info) Description 11/19/2023 10:08 AM ELEMENTARY READING SPECIALIST - 11/19/2023 12:51 PM ELEMENTARY READING SPECIALIST Hospital Encounter Department of Radiology, [facility], in [place], [place] [address] [place] [address] Felipe Morales M.D. [address] [place] [phone] Ascites Discharge Disposition: Home or Self Care Social History Tobacco Use Types Packs/Day Years Used Date Smoking Tobacco: Every Day Cigarettes 0.5 40 Smokeless Tobacco: Never Alcohol Use Standard Drinks/Week Comments Not Currently 0 (1 standard drink = 0.6 oz pur e alcohol) [facility] Utilities Answer Date Recorded In the past 12 months has th e [employer], gas, oil, or water company threatened to [...] Sex Assigned at Female 10/06/2023 10:50 AM ELEMENTARY READING SPECIALIST Gender Identity Female 10/06/2023 10:50 AM ELEMENTARY READING SPECIALIST Sexual Orientation Straight 10/06/2023 10 :50 AM ELEMENTARY READING SPECIALIST documented as of this encounter Last Filed Vital Signs Vital Sign Reading Time Taken Comments Blood Pressure 91/46 11/19/2023 11:45 AM ELEMENTARY READING SPECIALIST Pulse 84 11/19/2023 11:45 AM ELEMENTARY READING SPECIALIST Temperature - - Respiratory Rate - - Oxygen Saturation 100% 11/19/2023 11:45 AM ELEMENTARY READING SPECIALIST Inhaled Oxygen Concentration - - Weight - [...] PM CDT Appointment Division of Gastroenterology in [place], [place] [address] [place] [phone] Katja Umana M.D. [address] [place] [phone] Hayden Smith M.D. [address] [place] [phone] 03/21/2024 1:00 PM CDT Virtual Visit Department of Nicotine Dependence, [facility], in [place], [place] [address] [place] [address] Scheduled Orders Name Type Priority Associated Diagnoses Order Schedule Bacterial Culture, Aerobic + Susceptibility Microbiology Timed Ascites For manual release during upcoming procedure for 1 Occurrences starting 11/19/2023 until 11/19/2023 documented as of this encounter Procedures Procedure Name Priority Date/Time Associated Diagnosis Comments US PARACENTESIS WITH IMAGING GUIDANCE RAD - Routine (most inpatients and all outpatients) 11/19/2023 11:55 AM ELEMENTARY READING SPECIALIST Ascites BACTERIAL CULTURE, AEROBIC + SUSC Timed 11/19/2023 10:50 AM ELEMENTARY READING SPECIALIST Ascites CELL COUNT AND DIFFERENTIAL, BF Timed 11/19/2023 10:50 AM ELEMENTARY READING SPECIALIST Ascites documented in this encounter Results * US Paracentesis with Imaging Guidance (11/19/2023 11:55 AM ELEMENTARY READING SPECIALIST) Anatomical Region Laterality Modality Abdomen, Ultrasound RST LOS, Ultrasound ARZ LOS, Procedure FLA LOS, Abdominal FLA LOS, Procedural, Procedural NWWI LOS N/A Ultrasound Impressions 11/19/2023 12:26 PM ELEMENTARY READING SPECIALIST Ultrasound-guided paracentesis. EP Narrative 11/19/2023 12:26 PM ELEMENTARY READING SPECIALIST EXAM: US PARACENTESIS WITH IMAGING GUIDANCE [...] Culture, Aerobic + Susceptibility (11/19/2023 10:50 AM ELEMENTARY READING SPECIALIST) Bacterial Culture, Aerobic + Susc No growth after 5 days of incubation. 11/24/2023 8:27 AM CDT DTL Fluid (Peritoneal Fluid) 11/19/2023 10:50 AM ELEMENTARY READING SPECIALIST Narrative [facility] - 11/24/2023 8:27 AM CDT Bacterial Culture: Received Bactec aerobic and Bactec anaerobic bottles Felipe Morales M.D. LAB MICROBIOLOGY - GENERAL ORDERABLES [facility] [address] [place] [address], [facility] [address] [place] [address] * Cell Count and Differential, Body Fluid (11/19/2023 10:50 AM ELEMENTARY READING SPECIALIST) Fluid Type Peritoneal /Paracente sis 11/19/2023 12:39 PM ELEMENTARY READING SPECIALIST DHPM Gross Appearance Serous 11/19/19 24 12:39 PM ELEMENTARY READING SPECIALIST DHPM Total Nucleated Cells 201 /mcL 11/19/2023 12:39 PM ELEMENTARY READING SPECIALIST DHPM Comment: ----REFERENCE VALUE---- Synovial: <150 /mcL Peritoneal: <500 /mcL Pleural: <500 /mcL Pericardial: <500 /mcL ----ADDITIONAL INFORMATION---- This test has been modified from the debit agent's instructions. Its performance characteristics were determined by [facility] in a manner consistent with CLIA requirements. This test has not been cleared or approved by the U.S. Food and Drug Administration. Neutrophils 20 % 11/19/2023 1:42 PM ELEMENTARY READING SPECIALIST DHPM Comment: ----REFERENCE VALUE---- Synovial: <25% Peritoneal: <25% Pleural: <25% Pericardial: <25% Lymphocytes 16 Synovial <75% % 11/19/2023 1:42 PM ELEMENTARY READING SPECIALIST DHPM Monocytes/Macropha ges 60 Synovial <70% % 11/19/2023 1:42 PM ELEMENTARY READING SPECIALIST DHPM Other Cells 4 % 11/19/2023 1:42 PM ELEMENTARY READING SPECIALIST DHPM Comment: ----REFERENCE VALUE---- The reference range and other method performance specifications have not been established for this bodyfluid. The test result must be integrated into the clinical context for interpretation. Other Cells Are: See Comment 11/19/2023 1:42 PM ELEMENTARY READING SPECIALIST DHPM Comment:Mesothelial cells Comment See Comment 11/19/2023 1:42 PM ELEMENTARY READING SPECIALIST DHPM Comment:No blasts or maligna nt cells seen. Reviewed by: Jose 11/19/2023 1:42 PM ELEMENTARY READING SPECIALIST DHPM Fluid (Peritoneal Fluid) 11/19/2023 10:50 AM ELEMENTARY READING SPECIALIST Felipe Morales M.D. LAB BODY FLUIDS AND STOOLS ORDERABLES [facility] [address] [place] [address], [facility] [address] [place] [address] documented in this encounter Visit Diagnoses Diagnosis [...] provider's discretion) New Bag 11/19/2023 11:11 AM ELEMENTARY READING SPECIALIST 50 g 100 mL/hr lidocaine 10 mg/mL (1 %) injection (XYLOCAINE) As needed, Starting on Wed11/19/23 at 1056, Intra-Op Given 11/19/2023 10:56 AM ELEMENTARY READING SPECIALIST 5 mL Abdominal Tissue documented in this encounter Active and Recently Administered Medications Times are shown in ELEMENTARY READING SPECIALIST. Scheduled Medication Order 11/17/2023 11/18/2023 11/19/2023 albumin [...] Total Score: 3 10/20/19 24 7:30 AM ELEMENTARY READING SPECIALIST documented as of this encounter
--- OUTSIDE RECORDS SUMMARY | 2024-01-31 14:19 | XMS_ITS | Encounter Summary ---
Author Name Unknown Organization [facility] Address [address] [place] [address] Care Team Providers Care Gas Substation Operator Name Role Phone Unavailable Primary Care Provider Unavailabl e Reason for Referral * Outpatient (Routine) - Closed Specialty Diagnoses / Procedures Referred By Contlulu t Referred To Contact Nicotine Dependence Sudha Bernstein M.A., DonnS.Dameon., C.T.T.S. [address] [place] [phone] [facility] Referral ID Status Reason Start Date Expiration Date Visits Re quested Visits Authorized [id number] Closed 10/28/2023 04/28/2025 1 1 Scheduling Instructions Please schedule this patient for a follow up phone visit. TROLOGIST Encounter Details Date Type Department Care Team (Late st Contact Info) Description 10/28/2023 Orders Only Department of Nicotine Dependence, [facility] in [place], [place] [address] [place] [phone] Sudha Bernstein M.A., Edwin.S.W., C.T.T.S. [address] [place] [phone] Social History Tobacco Use Types Packs/Day Years Used Date Smoking Tobacco: Every Day Cigarettes 0.5 40 Smokeless Tobacco: Never Alcohol Use Standard Drinks/Week Comments Not Currently 0 (1 standard drink = 0.6 oz pur e alcohol) [facility] Utilities Answer Date [...] living situation today? I have a [facility] place to live 10/15/2023 Sex and Gender Information Value Date Recorded Sex Assigned at Female 10/06/2023 10:50 AM ELECTROLOGIST Gender Identity Female 10/06/2023 10:50 AM ELECTROLOGIST Sexual Orientation Straight 10/06/2023 10 :50 AM ELECTROLOGIST documented as of this encounter Plan of Treatment Upcoming Encounters Date Type Department Care Team (Late st Contact Info) Description 02/04/2024 2:15 PM CDT Appointment Division of Gastroenterology in [place], [place] [address] [place] [phone] Katja Umana M.D. [address] [place] [phone] Hayden Smith M.D. [address] [place] [phone] 03/21/2024 1:00 PM CDT Virtual Visit Department of Nicotine Dependence, [facility] in [place], [place] [address] [place] [phone] Scheduled Referrals Name Type Priority Associated Diagnoses Order Schedule Nicotine Dependence office visit (clinic) Outpatient Referral Routine Expected: 11/11/2023, Expires: 01/25/2025 documented as of this encounter Visit Diagnoses Not on filedocumented in this encounter Additional Health Concerns Assessment Noted Time PHQ-9 Depression Total Score: 3 10/20/19 24 7:30 AM ELECTROLOGIST documented as of this encounter
--- OUTSIDE RECORDS SUMMARY | 2024-01-31 14:19 | XMS_ITS | Encounter Summary ---
Author Name Unknown Organization [facility] Address [address] [place] [address] Care Team Providers Care Regrinder Name Role Phone Unavailable Primary Care Provider Unavailabl e Reason for Referral * Outpatient (Routine) - Closed Specialty Diagnoses / Procedures Referred By Dotty oakes Referred To Contact Diagnoses Ascites Procedures US Paracentesis with Imaging Guidance Katja Umana M.D. [address] [place] [phone] [facility] Referral ID Status Reason Start Date Expiration Date Visits Re quested Visits Authorized [id number] Closed 10/18/2023 10/17/2024 1 1 HNUT DOUGH MIXER Encounter Details Date Type Department Care Team (Latest Contact Info) Description 10/18/2023 Clinical Communication Division of Gastroenterology in [place], [place] [address] [place] [phone] Katja Umana M.D. [address] [place] [phone] Social History Tobacco Use Types Packs/Day Years Used Date Smoking Tobacco: Every Day Cigarettes 0.5 40 Smokeless Tobacco: Never Alcohol Use Standard Drinks/Week Comments Not Currently 0 (1 standard drink = 0.6 oz pur e alcohol) [facility] Utilities Answer Date Recorded In the past [...] your living situation today? I have a [facility] place to live 10/15/2023 Sex and Gender Information Value Date Recorded Sex Assigned at Female 10/06/2023 10:50 AM DOUGHNUT DOUGH MIXER Gender Identity Female 10/06/2023 10:50 AM DOUGHNUT DOUGH MIXER Sexual Orientation Straight 10/06/2023 10 :50 AM DOUGHNUT DOUGH MIXER documented as of this encounter Plan of Treatment Upcoming Encounters Date Type Department Care Team (Late st Contact Info) Description 02/04/2024 2:15 PM CDT Appointment Division of Gastroenterology in [place], [place] [address] [place] [phone] Katja Umana M.D. [address] [place] [phone] Hayden Smith M.D. [address] [place] [phone] 03/21/2024 1:00 PM CDT Virtual Visit Department of Nicotine Dependence, [facility], in [place], [place] [address] [place] [phone] documented as of this encounter Results * US Paracentesis with Imaging Guidance (10/22/2023 10:18 AM DOUGHNUT DOUGH MIXER) Anatomical Region Laterality Modality Abdomen, Ultrasound RST LOS, Ultrasound ARZ LOS, Procedure FLA LOS, Abdominal FLA LOS, Procedural, Procedural NWWI LOS N/A Ultrasound Impressions 10/22/2023 10:26 AM DOUGHNUT DOUGH MIXER Ultrasound-guided diagnostic and therapeutic paracentesis. NR Narrative 10/22/2023 10:26 AM DOUGHNUT DOUGH MIXER EXAM: US PARACENTESIS WITH IMAGING GUIDANCE PRE-PROCEDURE: [...]
--- OUTSIDE RECORDS SUMMARY | 2024-01-31 14:19 | XMS_ITS | Encounter Summary ---
Author Name Unknown Organization [facility] Address [address] [place] [address] Care Team Providers Care Fire Crew Worker Name Role Phone Unavailable Primary Care Provider Unavailabl e Encounter Details Date Type Department Care Team (Latest Contact Info) Description 10/27/2023 10:26 AM PAYROLL AND BENEFITS COORDINATOR - 10/27/2023 11:59 PM PAYROLL AND BENEFITS COORDINATOR Hospital Encounter Department of Laboratory Medicine in [address] [phone] Katja Umana M.D. [address] [place] [address] Alcoholic Cirrhosis Of Liver With Ascites (HCC); [...] In the past 12 months has e [employer], gas, oil, or water [email or web address] threatened to shut off services in your [...] Date Recorded Employment status Working with temporary [employer] 10/15/2023 Housing Stability Answer Date Recorded What is your living situation today? I have a [facility] place to live 10/15/2023 Sex and Gender Information Value Date Recorded Sex Assigned at Female 10/06/2023 10:50 AM PAYROLL AND BENEFITS COORDINATOR Gender Identity Female 10/06/2023 10:50 AM PAYROLL AND BENEFITS COORDINATOR Sexual Orientation Straight 10/06/2023 10 :50 AM PAYROLL AND BENEFITS COORDINATOR documented as of this encounter Medications at [...] PM CDT Appointment Division of Gastroenterology in [place], [place] [address] [place] [phone] Katja Umana M.D. [address] [place] [phone] Hayden Smith M.D. [address] [place] [phone] 03/21/2024 1:00 PM CDT Virtual Visit Department of Nicotine Dependence, [facility] in [place], [place] [address] [place] [address] documented as of this encounter Procedures Procedure Name Priority Date/Time Associated Diagnosis Comments PHOSPHATIDYLETHANOL CONFIRMATION, B Routine 10/27/2023 10:33 AM PAYROLL AND BENEFITS COORDINATOR Alcohol Moderate Or Severe Use Disorder (Dependence) Uncomplicated (HCC) BASIC METABOLIC PANEL, S/P Routine 10/27 10:33 AM PAYROLL AND BENEFITS COORDINATOR Alcoholic Cirrhosis Of Liver With Ascites (HCC) documented in this encounter Results * Phosphatidylethanol Confirmation (10/27/2023 10:33 AM PAYROLL AND BENEFITS COORDINATOR) PEth 16:0/18:1 (POPEth) by LC-MS/MS <20 Cutoff: 10 ng/mL 10/29/2023 8:22 PM PAYROLL AND BENEFITS COORDINATOR [facility] Comment: Testing performed at a x2 dilution; [...] <10 Cutoff: 10 ng/mL 10/29/2023 8:22 PM [facility] Comment: PEth 16:0/18:2 (PLPEth) Reference ranges are not well established PEth Interpretation Negative. 10/29 8:22 PM [facility] Comment: ----ADDITIONAL INFORMATION---- This report is intended for use in clinical monitoring and management of patients. ??It is not intended for use in employment-related testing. This test was developed and its performance characteristics determined by [facility] in a manner consistent with CLIA requirements. This test has not been cleared or approved by the U.S. Food and Drug Administration. Blood (Blood, Venous) 10/27/2023 10:33 AM PAYROLL AND BENEFITS COORDINATOR 10/27/2023 9:57 PM PAYROLL AND BENEFITS COORDINATOR Romana Diane M.D., Ph.D. LAB BLO OD ADD-ON [facility] [address] [place] [address] [facility] [address] [place] [address] [place] [address] * (ABNORMAL) Basic Metabolic Panel (10/27/2023 10:33 AM PAYROLL AND BENEFITS COORDINATOR) Potassium, P 3.6 3.6 - 5.2 mmol/L 10/27/2023 10:57 AM PAYROLL AND BENEFITS COORDINATOR [facility] Sodium, P 125(L) 135 - 145 mmol/L 10/27/2023 10:57 AM PAYROLL AND BENEFITS COORDINATOR [facility] Chloride, P 92(L) 98 - 107 mmol/L 10/27/2023 10:57 AM PAYROLL AND BENEFITS COORDINATOR [facility] Bicarbonate, P 21(L) 22 - 29 mmol/L 10/27/2023 10:57 AM PAYROLL AND BENEFITS COORDINATOR [facility] Anion Gap, P 12 7 - 15 10/27/2023 10:57 AM PAYROLL AND BENEFITS COORDINATOR [facility] BUN (Blood Urea Nitrogen), P 10 6 - 21 mg/dL 10/27/2023 10:57 AM PAYROLL AND BENEFITS COORDINATOR [facility] Creatinine 0.47(L) 0.59 - 1.04 mg/dL 10/27/2023 10:57 AM PAYROLL AND BENEFITS COORDINATOR [facility] Estimated GFR (eGFR) >90 >=60 mL/min/BSA 10/27/2023 10:57 AM PAYROLL AND BENEFITS COORDINATOR [facility] Comment: Estimated GFR calculated using the 2020 CKD_EPI creatinine equation. Calcium, Total, P 8.4(L) 8.8 - 10.2 mg/dL 10/27/2023 10:57 AM PAYROLL AND BENEFITS COORDINATOR [facility] Glucose, P 93 70 - 140 mg/dL 10/27/2023 10:57 AM PAYROLL AND BENEFITS COORDINATOR [facility] Blood (Blood, Venous) 10/27/2023 10:33 AM PAYROLL AND BENEFITS COORDINATOR 10/27/2023 10:36 AM PAYROLL AND BENEFITS COORDINATOR Katja Umana M.D. LAB BLOOD ADD-ON [facility] [address] [place] [address], [facility] CNFL [place] [address] documented in this encounter Visit Diagnoses Diagnosis Alcoholic Cirrhosis Of Liver With Ascites (HCC) Alcohol Moderate Or Severe Use Disorder (Dependence) Uncomplicated (HCC) documented in this encounter Additional Health Concerns Assessment Noted Time PHQ-9 Depression Total Score: 3 10/20/19 24 7:30 AM PAYROLL AND BENEFITS COORDINATOR documented as of this encounter
--- OUTSIDE RECORDS SUMMARY | 2024-01-31 14:19 | XMS_ITS | Encounter Summary ---
Author Name Unknown Organization [facility] Address [address] [place] [address] Care Team Providers Care Business Area Director Name Role Phone Unavailable Primary Care Provider Unavailabl e Encounter Details Date Type Department Care Team (Latest Contact Info) Description 10/24/2023 Clinical Communication Division of Gastroenterology in [place], [place] [address] [place] [phone] Katja Aguilera M.D. [address] [place] [phone] Social History Tobacco Use Types Packs/Day Years [...] living situation today? I have a [facility] place to live 10/15/2023 Sex and Gender Information Value Date Recorded Sex Assigned at Female 10/06/2023 10:50 AM ARSON AND BOMB INVESTIGATOR Gender Identity Female 10/06/2023 10:50 AM ARSON AND BOMB INVESTIGATOR Sexual Orientation Straight 10/06/2023 10 :50 AM ARSON AND BOMB INVESTIGATOR documented as of this encounter Progress Notes [...] I have sent an order to her [facility] Rajiv Taylor. She also reports ongoing difficulty with sleep, despite taking melatonin 10 mg nig htly. We will initiate trazodone at low dose, with 50 mg nightly. She was in agreement with the plan. N AND BOMB INVESTIGATOR documented in this encounter Miscellaneous Notes * Addendum Note - Katja Aguilera M.D. - 10/24/2023 11:17 AM CSTAddended by: KATJA AGUILERA on: 10/24/2023 11:17 AM Modules accepted: Orders N AND BOMB INVESTIGATOR documented in this encounter Plan of Treatment Upcoming Encounters Date Type Department Care Team (Late st Contact Info) Description 02/04/2024 2:15 PM CDT Appointment Division of Gastroenterology in [place], [place] [address] [place] [phone] Katja Aguilera M.D. [address] [place] [phone] Hayden Smith M.D. [address] [place] [phone] 03/21/2024 1:00 PM CDT Virtual Visit Department of Nicotine Dependence, [facility], in [place], [place] [address] [place] [phone] documented as of this encounter Results * (ABNORMAL) Basic Metabolic Panel (10/27/2023 10:33 AM ARSON AND BOMB INVESTIGATOR) [facility] Potassium, P 3.6 3.6 - 5.2 mmol/L 10/27/2023 10:57 AM ARSON AND BOMB INVESTIGATOR [facility] Sodium, P 125(L) 135 - 145 mmol/L 10/27/2023 10:57 AM ARSON AND BOMB INVESTIGATOR [facility] Chloride, P 92(L) 98 - 107 mmol/L 10/27/2023 10:57 AM ARSON AND BOMB INVESTIGATOR [facility] Bicarbonate, P 21(L) 22 - 29 mmol/L 10/27/2023 10:57 AM ARSON AND BOMB INVESTIGATOR CN[facility] Anion Gap, P 12 7 - 15 10/27/2023 10:57 AM ARSON AND BOMB INVESTIGATOR [facility] BUN (Blood Urea Nitrogen), P 10 6 - 21 mg/dL 10/27/2023 10:57 AM ARSON AND BOMB INVESTIGATOR CN[facility] Creatinine 0.47(L) 0.59 - 1.04 mg/dL 10/27/2023 10:57 AM ARSON AND BOMB INVESTIGATOR CN[facility] Estimated GFR (eGFR) >90 >=60 mL/min/BSA 10/27/2023 10:57 AM ARSON AND BOMB INVESTIGATOR [facility] Comment: Estimated GFR calculated using the 2020 CKD_EPI creatinine equation. Calcium, Total, P 8.4(L) 8.8 - 10.2 mg/dL 10/27/2023 10:57 AM ARSON AND BOMB INVESTIGATOR CN[facility] Glucose, P 93 70 - 140 mg/dL 10/27/2023 10:57 AM ARSON AND BOMB INVESTIGATOR [facility] Blood (Blood, Venous) 10/27/2023 10:33 AM ARSON AND BOMB INVESTIGATOR 10/27/2023 10:36 AM ARSON AND BOMB INVESTIGATOR Katja Aguilera M.D. LAB BLOOD ADD-ON Performing Organization Address City/State/[facility] Co de Phone Number - [facility] [address] [place] [phone], [facility] CNFL [facility] in [address] [address] documented in this encounter Visit Diagnoses Diagnosis Alcoholic Cirrhosis Of Liver With Ascites (HCC)- Primary documented in this encounter Additional Health Concerns Assessment Noted Time PHQ-9 Depression Total Score: 3 10/20/19 24 7:30 AM ARSON AND BOMB INVESTIGATOR documented as of this encounter
--- OUTSIDE RECORDS SUMMARY | 2024-01-31 14:19 | XMS_ITS | Encounter Summary ---
Author Name Unknown Organization [facility] Address [address] [place] [address] Care Team Providers Care Capacitor Repairer Name Role Phone Unavailable Primary Care Provider Unavailabl e Encounter Details Date Type Department Care Team (Latest Contact Info) Description 10/27/2023 10:26 AM THREADING MACHINE SETTER - 10/27/2023 11:59 PM THREADING MACHINE SETTER Hospital Encounter Department of Laboratory Medicine in [address] [phone] Romana Diane M.D., Ph.D. [address] [place] [address] Alcohol Moderate Or Severe Use Disorder (Dependence) Uncomplicated (HCC) Discharge Disposition: Home or Self Care Social History Tobacco Use Types Packs/Day Years Used Date Smoking Tobacco: Every Day Cigarettes 0.5 40 Smokeless Tobacco: Never Alcohol Use Standard Drinks/Week Comments Not Currently 0 (1 standard drink = 0.6 oz pur e alcohol) [facility] Utilities Answer Date Recorded In the past 12 months has e [employer], gas, oil, or water [employer] threatened to shut off services in your [...] Date Recorded Employment status Working with temporary [employer] 10/15/2023 Housing Stability Answer Date Recorded What is your living situation today? I have a [facility] place to live 10/15/2023 Sex and Gender Information Value Date Recorded Sex Assigned at Female 10/06/2023 10:50 AM THREADING MACHINE SETTER Gender Identity Female 10/06/2023 10:50 AM THREADING MACHINE SETTER Sexual Orientation Straight 10/06/2023 10 :50 AM THREADING MACHINE SETTER documented as of this encounter Medications at [...] PM CDT Appointment Division of Gastroenterology in [place], [place] [address] [place] [phone] Katja Umana M.D. [address] [place] [phone] Hayden Smith M.D. [address] [place] [phone] 03/21/2024 1:00 PM CDT Virtual Visit Department of Nicotine Dependence, [facility] in [place], [place] [address] [place] [address] documented as of this encounter Procedures Procedure Name Priority Date/Time Associated Diagnosis Comments ETHYL GLUCURONIDE CONFIRMATION, U Routine 10/27/2023 10:38 AM THREADING MACHINE SETTER Alcohol Moderate Or Severe Use Disorder (Dependence) Uncomplicated (HCC) CONFIRMED DRUG ABUSE PANEL, U Routine 10/27/2023 10:38 AM THREADING MACHINE SETTER Alcohol Moderate Or Severe Use Disorder (Dependence) Uncomplicated (HCC) documented in this encounter Results * Drug Abuse Survey with Confirmation, Urine (10/27/2023 10:38 AM THREADING MACHINE SETTER) Alcohol Negative Cutoff: 10 mg/dL 10/28/2023 9:08 AM THREADING MACHINE SETTER SDS Amphetamines Negative Cutoff: 500 ng/mL 10/28/2023 9:08 AM THREADING MACHINE SETTER SDS Barbiturates Negative Cutoff: 200 ng/mL 10/28/2023 9:08 AM THREADING MACHINE SETTER SDS Benzodiazepines Negative Cutoff: 100 ng/mL 10/28/2023 9:08 AM THREADING MACHINE SETTER [facility] Cocaine Negative Cutoff: 150 ng/mL 10/28/2023 9:08 AM THREADING MACHINE SETTER [facility] Comment: This cocaine immunoassay targets benzoylecgonine the primary metabolite of cocaine. Opiates Negative Cutoff: 300 ng/mL 10/28/2023 9:08 AM THREADING MACHINE SETTER [facility] Phencyclidine Negative Cutoff: 25 ng/mL 10/28/2023 9:08 AM THREADING MACHINE SETTER [facility] Tetrahydrocannabinol Negative Cutoff: 50 ng/mL 10/28/2023 9:08 AM [facility] Comment: This immunoassay targets delta-9 tetrahydrocannabinol carboxylic acid (THC-COOH), a metabolite of delta-9 tetrahydrocannabinol the main psychoactive ingredient of marijuana. ----ADDITIONAL INFORMATION---- This report is intended for use in clinical monitoring or management of patients. ??It is not intended for use in employment-related testing. Urine (Urine, Midstream) 10/27/2023 10:38 AM THREADING MACHINE SETTER 10/27/2023 10:03 PM THREADING MACHINE SETTER Romana Diane M.D., Ph.D. LAB URI NE ORDERABLES Performing Organization Address [facility] Co de Phone Number [facility] [address] [place] [address] [facility] [address] [place] [address] [place] [address] * Ethyl Glucuronide Confirmation, Random, Urine (10/27/2023 10:38 AM [facility]) Ethyl Glucuronide Confirmation, U Negative Cutoff: 250 ng/mL 10/29/2023 8:19 AM [facility] Ethyl Sulfate Negative Cutoff: 100 ng/mL 10/29/2023 8:19 AM [facility] Ethyl Gluc/Sulfate Interpretation Negative. 10/29/2023 8:19 AM [facility] Comment: ----ADDITIONAL INFORMATION---- This report is intended for use in clinical monitoring and management of patients. ??It is not intended for use in employment-related testing. This test was developed and its performance characteristics determined by [facility] in a manner consistent with CLIA requirements. This test has not been cleared or approved by the U.S. Food and Drug Administration. Urine (Urine, Midstream) 10/27/2023 10:38 AM THREADING MACHINE SETTER 10/27/2023 10:00 PM THREADING MACHINE SETTER Romana Diane M.D., Ph.D. LAB URI NE ORDERABLES Performing Organization Address [facility] Co de Phone Number [facility] [address] [place] [address] [facility] [address] [place] [address] [place] [address] documented in this encounter Visit Diagnoses Diagnosis Alcohol Moderate Or Severe Use Disorder (Dependence) Uncomplicated (HCC) documented in this encounter Additional Health Concerns Assessment Noted Time PHQ-9 Depression Total Score: 3 10/20/19 24 7:30 AM THREADING MACHINE SETTER documented as of this encounter
--- OUTSIDE RECORDS SUMMARY | 2024-01-31 14:19 | XMS_ITS | Encounter Summary ---
Author Name Unknown Organization [facility] Address [address] [place] [address] Care Team Providers Care Women'S Garment Fitter Name Role Phone Unavailable Primary Care Provider Unavailabl e Reason for Visit * Reason Onset Date Comments NDC Med Request 10/28/2023 Encounter Details Date Type Department Care Team (Latest Contact Info) Description 10/28/2023 Clinical Communication Department of Nicotine Dependence, [facility], in [place], [place] [address] [place] [phone] Sudha Bernstein M.A., L.I.C.S.W., C.T.T.S. [address] [place] [phone] NDC Med Request Social History Tobacco Use Types Packs/Day Years Used Date Smoking Tobacco: Every Day Cigarettes 0.5 40 Smokeless Tobacco: Never Alcohol Use Standard Drinks/Week Comments Not Currently 0 (1 standard drink = 0.6 oz pur e alcohol) [facility] Utilities Answer Date Recorded In the past 12 months has [employer], gas, oil, or water [employer] threatened to shut off services in your [...] Date Recorded Employment status Working with temporary [employer] 10/15/2023 Housing Stability Answer Date Recorded What is your living situation today? I have a [facility] place to live 10/15/2023 Sex and Gender Information Value Date Recorded Sex Assigned at Female 10/06/2023 10:50 AM INDUSTRIAL RENDERER Gender Identity Female 10/06/2023 10:50 AM INDUSTRIAL RENDERER Sexual Orientation Straight 10/06/2023 10 :50 AM INDUSTRIAL RENDERER documented as of this encounter Miscellaneous Notes * Addendum Note - Raisa Hunt M.D. - 10/28/2023 5:01 PM CSTAddended by: RAISA HUNT on: 10/28/2023 05:01 PM Modules accepted: Orders STRIAL RENDERER * Telephone Encounter - Sudha Bernstein M.A., L.I.C.S.W., M.S.W. - 10/28/2023 11:[address] Hunt, this patient is interested in having a prescription for Varenicline and nicotine lozenges sent to [facility] in [place], [place] for smoking cessation if appropriate based on your review of her medical record. Varenicline Starter Pack with refills 2 mg nicotine lozenges Thank you. STRIAL RENDERER documented in this encounter Plan of Treatment Upcoming Encounters Date Type Department Care Team (Late st Contact Info) Description 02/04/2024 2:15 PM CDT Appointment Division of Gastroenterology in [place], [place] [address] [place] [phone] Katja Umana M.D. [address] [place] [phone] Hayden Smith M.D. [address] [place] [phone] 03/21/2024 1:00 PM CDT Virtual Visit Department of Nicotine Dependence, [facility], in [place], [place] [address] [place] [phone] documented as of this encounter Visit Diagnoses Diagnosis Nicotine Dependence Cigarettes- Primary documented in this encounter Additional Health Concerns Assessment Noted Time PHQ-9 Depression Total Score: 3 10/20/19 24 7:30 AM INDUSTRIAL RENDERER documented as of this encounter
--- OUTSIDE RECORDS SUMMARY | 2024-01-31 14:19 | XMS_ITS | Encounter Summary ---
Author Name Unknown Organization [facility] Address [address] [place] [address] Care Team Providers Care Signal Helper Name Role Phone Unavailable Primary Care Provider Unavailabl e Reason for Visit * Reason Comments Nicotine Dependence * Outpatient (Routine) - Closed Specialty Diagnoses / Procedures Referred By Contac t Referred To Contact Pulmonary Medicine / Nicotine Dependence Diagnoses Nicotine Dependence Cigarettes Romana Diane M.D., Ph.D. [address] [place] [phone] [facility] Referral ID Status Reason Start Date Expiration Date Visits Re quested Visits Authorized [id number] Closed 10/20/2023 04/20/2025 1 1 Encounter Details Date Type Department Care Team (Late st Contact Info) Description 10/28/2023 11:00 AM ELECTRICAL MAINTENANCE MAN Virtual Visit Department of Nicotine Dependence, [facility], in [place], [place] [address] [place] [phone] Romana Diane M.D., Ph.D. [address] [place] [phone] Sudha Bernstein M.A., L.I.C.S.W., C.T.T.S. [address] [place] [phone] Nicotine Dependence Cigarettes Social History Tobacco Use [...] your living situation today? I have a [facility] place to live 10/15/2023 Sex and Gender Information Value Date Recorded Sex Assigned at Female 10/06/2023 10:50 AM ELECTRICAL MAINTENANCE MAN Gender Identity Female 10/06/2023 10:50 AM ELECTRICAL MAINTENANCE MAN Sexual Orientation Straight 10/06/2023 10 :50 AM ELECTRICAL MAINTENANCE MAN documented as of this encounter Consult Notes [...] this medication being metabolized through the liver [facility] staff would need to discuss the patient's [...] in two weeks. Patient was provided with [facility] educational materials electronically. . Patient is ready to learn, no apparant barriers to learning were identified. Patient understands and agrees with plan. 30 minutes of our visit was spent on tobacco use disorder counseling. Sudha Bernstein M.A., Sony, M.S.W. 10/28/2023 11:33 AM ELECTRICAL MAINTENANCE MAN TRICAL MAINTENANCE MAN documented in this encounter Plan of Treatment Upcoming Encounters Date Type Department Care Team (Late st Contact Info) Description 02/04/2024 2:15 PM CDT Appointment Division of Gastroenterology in [place], [place] [address] [place] [phone] Katja Umana M.D. [address] [place] [phone] Hayden Smith M.D. [address] [place] [phone] 03/21/2024 1:00 PM CDT Virtual Visit Department of Nicotine Dependence, [facility], in [place], [place] [address] [place] [phone] documented as of this encounter Visit Diagnoses Diagnosis Nicotine Dependence Cigarettes documented in this encounter Additional Health Concerns Assessment Noted Time PHQ-9 Depression Total Score: 3 10/20/19 24 7:30 AM ELECTRICAL MAINTENANCE MAN documented as of this encounter
--- OUTSIDE RECORDS SUMMARY | 2024-01-31 14:19 | XMS_ITS | Encounter Summary ---
Author Name Unknown Organization [facility] Address [address] [place] [address] Care Team Providers Care Plastics Repairer Name Role Phone Unavailable Primary Care Provider Unavailabl e Reason for Referral * Outpatient (Routine) - Closed Specialty Diagnoses / Procedures Referred By Delgadoac t Referred To Contact Diagnoses Ascites Procedures US Paracentesis with Imaging Guidance Felipe Morales M.D. 200 [place] [phone] [facility] Referral ID Status Reason Start Date Expiration Date Visits Re quested Visits Authorized [id number] Closed 10/11/2023 10/10/2024 1 1 CULTURAL TECHNICAL OFFICER * Outpatient (Routine) - Closed Specialty Diagnoses / Procedures Referred By Dotty t Referred To Contact Diagnoses Ascites Procedures US Paracentesis with Imaging Guidance Felipe Morales M.D. 200 [place] [phone] [facility] Referral ID Status Reason Start Date Expiration Date Visits Re quested Visits Authorized [id number] Closed 10/11/2023 10/10/2024 1 1 CULTURAL TECHNICAL OFFICER Reason for Visit * Reason Onset Date Comments Hepatobiliary 10/08/2023 Ascites elijah Encounter Details Date Type Department Care Team (Latest Contact Info) Description 10/08/2023 Clinical Communication Division of Gastroenterology in [place], [place] [address] [place] [phone] Felipe Morales M.D. 200 [place] [phone] Hepatobiliary (Ascites elijah) Social History Tobacco Use Types Packs/Day Years Used Date Smoking Tobacco: Every Day Cigarettes 0.5 40 Smokeless Tobacco: Never Alcohol Use Standard Drinks/Week Comments Not Currently 0 (1 standard drink = 0.6 oz pur e alcohol) [facility] Utilities Answer Date Recorded In the past 12 months has e [employer], gas, oil, or water [employer] threatened to shut off services in your [...] Date Recorded Employment status Working with temporary [employer] 10/15/2023 Housing Stability Answer Date Recorded What is your living situation today? I have a [facility] place to live 10/15/2023 Sex and Gender Information Value Date Recorded Sex Assigned at Female 10/06/2023 10:50 AM AGRICULTURAL TECHNICAL OFFICER Gender Identity Female 10/06/2023 10:50 AM AGRICULTURAL TECHNICAL OFFICER Sexual Orientation Straight 10/06/2023 10 :50 AM AGRICULTURAL TECHNICAL OFFICER documented as of this encounter Plan of Treatment Upcoming Encounters Date Type Department Care Team (Late st Contact Info) Description 02/04/2024 2:15 PM CDT Appointment Division of Gastroenterology in [place], [place] [address] [place] [phone] Katja Umana M.D. [address] [place] [phone] Hayden Smith M.D. [address] [place] [phone] 03/21/2024 1:00 PM CDT Virtual Visit Department of Nicotine Dependence, [facility] in [place], [place] [address] [place] [phone] documented as of this encounter Results * US Paracentesis with Imaging Guidance (11/19/2023 11:55 AM AGRICULTURAL TECHNICAL OFFICER) Anatomical Region Laterality Modality Abdomen, Ultrasound RST LOS, Ultrasound ARZ LOS, Procedure FLA LOS, Abdominal FLA LOS, Procedural, Procedural NWWI LOS N/A Ultrasound Impressions 11/19/2023 12:26 PM AGRICULTURAL TECHNICAL OFFICER Ultrasound-guided paracentesis. EP Narrative 11/19/2023 12:26 PM AGRICULTURAL TECHNICAL OFFICER EXAM: US PARACENTESIS WITH IMAGING GUIDANCE PRE-PROCEDURE: [...] Paracentesis with Imaging Guidance (11/05/2023 11:25 AM AGRICULTURAL TECHNICAL OFFICER) Anatomical Region Laterality Modality Abdomen, Ultrasound RST LOS, Ultrasound ARZ LOS, Procedure FLA LOS, Abdominal FLA LOS, Procedural, Procedural NWWI LOS N/A Ultrasound Impressions 11/05/2023 11:28 AM AGRICULTURAL TECHNICAL OFFICER Ultrasound-guided diagnostic and therapeutic paracentesis. NR Narrative 11/05/2023 11:28 AM AGRICULTURAL TECHNICAL OFFICER EXAM: US PARACENTESIS WITH IMAGING GUIDANCE PRE-PROCEDURE: [...] lower quadrant peritoneal space. Needle size: 5 Cymro centesis catheter. Volume aspirated: 6.8 liters aspirated, [...] lower quadrant peritoneal space. Needle size: 5 Cymro centesis catheter. Volume aspirated: 6.8 liters aspirated, [...]
--- OUTSIDE RECORDS SUMMARY | 2024-01-31 14:19 | XMS_ITS ---
Author Name Unknown Organization [facility] Address [address] [place] [address] Care Team Providers Care Drying Machine Tender Name Role Phone Elsewhere, Pcp Primary Care Provider Unavailabl e Transplant Episode Liver Candidate [facility] ([place], [place]) - [facility] Referred on 01/26/2024 Marked as Active on 01/26/2024 Liver CoordinatorTXP PRE LIVER NURSE TEAM ROCH Phone: N/A Fax: N/A Email: N/A Scores Score Value Updated Expires Exceptions/Sprakers sons CPRA Not available UNOS MELD Not available MELD (Calc) 24 12/09/2023 Care Team Name Role Phone Fax Email TXP PRE LIVER NURSE TEAM ROCH Liver Coordinator N/A N/A N/A Katja Umana M.D. Referring Provider [phone] [email or web address] Pre-Transplant Referred: 01/26/2024
[2024-01-31 14:49] LABS: Lymphocytes Percent Auto 24.4 % (20-44); Mean Corpuscular HGB Conc 34 gm/dL (32-36); Mean Corpuscular Hemoglobin 33 pg (26-34); Mean Corpuscular Volume 97 fL (80-100); Monocytes Percent Auto 10.4 % (0.0-11.0); Neutrophils Percent Auto 63.8 % (42.0-72.0); Platelet Count* 50 K/uL (140-440); RDW Coefficient of Variation % 17.9 % (11.5-15.5); Red Blood Count 2.28 m/uL (4.00-5.20); White Blood Count* 6.61 K/uL (4.50-11.00)
[2024-01-31 14:50] LABS: Basophils Absolute Auto 0.01 K/uL (0.00-0.30); Basophils Percent Auto 0.2 % (0.0-3.0); Eosinophils Absolute Auto 0.02 K/uL (0.00-0.50); Eosinophils Percent Auto 0.3 % (0.0-7.0); Immature Granulocytes Abs Auto 0.06 K/uL (0.00-0.30); Immature Granulocytes Pct Auto 0.9 %; Lymphocytes Absolute Auto 1.61 K/uL (0.90-2.90); Neutrophils Absolute Auto 4.22 K/uL (1.7-7.0)
[2024-01-31 14:53] LABS: Lactate Sepsis w/Reflex* 4.3 mmol/L (0.5-1.9)
[2024-01-31] MEDS: 0.9 % SODIUM CHLORIDE 500 ML 500 ML IV (15:00)
[2024-01-31 15:08] LABS: Albumin* 3.8 g/dL (3.3-5.0); Chloride* 87 mmol/L (96-114)
[2024-01-31 15:09] LABS: Potassium* 4.3 mmol/L (3.6-5.1)
[2024-01-31 15:10] LABS: Bilirubin Direct* 0.9 mg/dL (0.0-0.5); Bilirubin Total* 2.9 mg/dL (0.1-1.5)
[2024-01-31 15:11] LABS: Hemoglobin* 7.5 gm/dL (12.0-16.0); Slide Review Reflex No
[2024-01-31 15:11] LABS: Alanine Aminotransferase* 26 U/L (4-35); Alkaline Phosphatase* 131 U/L (40-150); Anion Gap 10 mEq/L (7-15); Aspartate Amino Transferase* 71 U/L (12-35); Carbon Dioxide* 24 mmol/L (20-32); Creatinine* 0.8 mg/dL (0.5-1.5); Estimated Glomerular Filt Rate 83 ml/min; Lipase* 203 U/L (23-300); Total Protein* 8.5 g/dL (6.0-8.3)
[2024-01-31 15:12] LABS: Blood Urea Nitrogen* 19 mg/dL (7-30); Calcium* 7.8 mg/dL (8.4-10.6); Glucose* 122 mg/dL (60-115)
[2024-01-31 15:13] LABS: Sodium* 121 mmol/L (135-149)
[2024-01-31 15:15] LABS: C Reactive Protein* 1.9 mg/dL (0.5-1.0)
--- NOTE | 2024-01-31 15:30 | ED.NURSE ---
Pt is alert to her current location and who she is, but not the time of year. Pt awakens to voice, otherwise appears as fatigued with eyes closed at this time. Pt has to be prompted a few times for directions before she responded.
--- NOTE | 2024-01-31 16:14 | ED.NURSE ---
pt report given to nuno HARDY. Pt to CCU2.
--- NOTE | 2024-01-31 16:25 | PM.IMHP1 ---
Hospitalist- H&P: HPI History of Present Illness Date Seen: 01/31/24 Chief complaint: Weakness, falls Narrative: ADMISSION HISTORY AND PHYSICAL - HOSPITALIST Chief Complaint: Weakness, vomiting, falls HPI: 63-year-old with a history of alcoholic liver disease and decompensated liver failure presents with ongoing weakness, vomiting and falls. Her most recent hospitalization was in November of 2023 at [facility] in [place]. She had a life-threatening GI bleed secondary to duodenal ulcer. Ultimately she was transfused and epinephrine injected into the ulcer site. She also has a history of esophageal varices, portal hypertension, gastropathy of chronic liver disease. She has refractory abdominal ascites and has had 4 large volume paracentesis since December 12. There has been concern regarding noncompliance with her diuretic regimen. She is followed by hepatology at [facility] (Katja Umana MD). Her last visit was 12/09/23 and has her next appt scheduled for 02/04/24. Today her summoned EMS for weakness, a fall and AMS. She has been vomiting. She has not been able to keep food or medications down. He reports that she has been steadily declining over the last several months. Her appetite has been poor. Today is a new low with her mental status, fall, weakness. In the ER she was again noted to be anemic, hyponatremic. thrombocytopenic. No specific GI bleeding has been identified or reported. Her lactate is elevated, this is attributed to her chronic liver disease. Her INR and ammonia level had not yet been checked. Her LFT pattern is consistent with her history of decompensated liver failure. MELD calculated at 23 (using last known INR of 1.5-1.6) ER COURSE: She was given a 500 mL normal saline bolus Hospital medicine team was asked to admit for further cares, [facility] was contacted and there are no beds available CODE STATUS: DNR/DNI. I TALKED AT LENGTH WITH HER FRANCES. While he feels they are still progressing toward a transplant and would like to be considered for a transfer to the [facility] he is very clear that Monique would not want CPR, intubation in acute crisis. EMERGENCY CONTACT PLAN: Frances Redmond W? ?Rel to [facility]? [phone]?Cell Phone I've updated the PFSH, medications and allergies in the Expanse tabs. INVESTIGATIONS: LABS/MICRO/ECG/IMAGING CBC reflects a normal white blood cell count. Hemoglobin of 7.5. Her baseline seems to be about 9. MCV 97. Platelet count 50. INR is pending Acute on chronic hyponatremia is again noted at 121. Normal renal function. Potassium is normal. Bicarb is 24. Glucose is 122. Lactate is 4.3 Total bilirubin is 2.9 it has been as high as 5.4 in August of 2023. Direct is 0.9. AST 71, ALT 26 Alk-phos 131 POC troponin 0 CRP 1.9 Albumin 3.8 Lipase 203 ammonia level pending. No new imaging. PICC line and CXR ordered with blood transfusion upon admission. Echo Sep 2023 Hyperdynamic, likely due to liver disease Moderate intrapulmonary shunt Normal LV size. EF 68%. Abnormal left ventricular geometry was concentric left ventricular hypertrophy, elevated filling pressure REVIEW OF SYSTEMS: 12-point ROS completed with patient and . PHYSICAL EXAM: CONSTITUTIONAL: sleepy. will open eyes to voice command but falls back to sleep. mildly confused. looks chronically ill. Cachectic. VITAL SIGNS: see record. HEENT: Normocephalic, atraumatic. PERRL, EOMI, mild scleral icterus.. Ears and nose externally normal. Pharynx normal. NECK: No JVD. No carotid bruit, no thyromegaly, no adenopathy. CHEST: Clear to auscultation bilaterally HEART: S1 and S2 normal. No harsh murmurs. No edema. MUSCULOSKELETAL: No gross joint deformity or swelling. NEURO: No asymmetrical findings. Consciousness depressed. SKIN: Evidence of chronic coagulopathy along her arms and hands. PSYCHIATRIC: Flat. Admit FLOOR CARE DVT: Coagulopathic. SCDs. GI: PO intake, IV PPI Time spent: Today I spent 75 minutes seeing the patient, discussing the patient with ER staff, reviewing Expanse and EPIC notes/diagnostics, discussing the care plan with our care time that includes social work, PT/OT, pharmacy, RT, alf and documenting my impressions and plan in the medical record. [facility] Medical History (Updated 01/31/24 @ 18:26 by Iris Carrera MD) History of echocardiogram ?Z92.89 - Personal history of other medical treatment (ICD-10) Esophageal varices ?I85.00 - Esophageal varices without bleeding (ICD-10) Duodenal ulcer (12/03/23) ?K26.9 - Duodenal ulcer, unspecified as acute or chronic, without hemorrhage or perforation (ICD-10) Hyponatremia ?E87.1 - Hypo-osmolality and hyponatremia (ICD-10) Ascites ?R18.8 - Other ascites (ICD-10) Perianal abscess ?K61.0 - Anal abscess (ICD-10) Liver lesion ?K76.9 - Liver disease, unspecified (ICD-10) Cirrhosis of liver ?K74.60 - Unspecified cirrhosis of liver (ICD-10) Tobacco abuse ?Z72.0 - Tobacco use (ICD-10) Primary hypertension ?I10 - Essential (primary) hypertension (ICD-10) Health care directive on file ?Z78.9 - Other specified health status (ICD-10) Depression ?F32.A - Depression, unspecified (ICD-10) Tubular adenoma of colon ?D12.6 - Benign neoplasm of colon, unspecified (ICD-10) Surgical History History of breast biopsy ?Z98.890 - Other specified postprocedural states (ICD-10) History of abdominal hysterectomy ?Z90.710 - Acquired absence of both cervix and uterus (ICD-10) Family History Father High blood pressure Lymphoma Mother High blood pressure Social History Narrative: patient admits to smoking and drinking alcohol. 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 Reviewed for scanning to medical record on 04/17/2020 What is your current living situation?: I presently have a place to live Problems where you live: no known problems In the past 12 months, utilities in danger of being shut off: no In past 12 months, lack of transportation kept you from medical appts, meetings, work, or getting things needed for daily living: no In the past 12 mos, have been you worried that your food would run out before you had money to buy more?: never true In the past 12 mos, the food you bought just didn't last and you didn't have money to buy more?: never true Smoking Status: Current every day smoker What tobacco products do you use: cigarettes Do you use any of these nicotine containing products: None Second hand tobacco smoke exposure: No How often do you have a drink containing alcohol: 4 or more times a week How many standard drinks containing alcohol do you have on a typical day: 1 or 2 How often do you have six or more drinks on one occasion: Never AUDIT-C Alcohol total score: 4 Non-prescribed substance use: marijuana (any form) How often does anyone, including family, friends and others, physically hurt you: never How often does anyone, including family, friends and others, insult or talk down to you: never How often does anyone, including family, friends and others, threaten you with harm: never How often does anyone, including family, friends and others, scream or curse at you: never Little interest or pleasure in doing things: several days Feeling down, depressed, or hopeless: several days service: No Meds Home Medications and Allergies Home Medications Medication Instructions Recorded Confirmed Type furosemide 40 mg tablet 40 mg PO DAILY 11/16/23 01/31/24 History rifaximin 550 mg tablet (Xifaxan) 550 mg PO BID 12/10/23 01/31/24 History spironolactone 100 mg tablet 100 mg PO DAILY 12/10/23 01/31/24 History lactulose 10 gram/15 mL oral 30 ml PO Q12H 12/23/23 01/31/24 History solution Allergies Allergy/AdvReac Type Severity Reaction Status Date / Time No Known Drug Allergies Allergy Verified 01/31/24 14:02 Exam Const: Vital Signs, click to edit/add: Vital Signs - 24 hr 01/31/24 13:56 01/31/24 14:01 01/31/24 14:01 Temperature 98.3 F Pulse Rate 94 94 Pulse Rate [Right Pulse Oximeter] 95 Respiratory Rate 18 Blood Pressure 116/55 L 116/55 L Blood Pressure [Ri ght Upper Arm] 116/55 L Pulse Oximetry 100 100 100 Oxygen Delivery Il thod Room Air 01/31/24 14:02 01/31/24 14:15 01/31/24 14:42 Temperature Pulse Rate 94 95 91 Pulse Rate [Right Pulse Oximeter] Respiratory Rate Blood Pressure Blood Pressure [Ri ght Upper Arm] Pulse Oximetry 100 100 100 Oxygen Delivery Il thod 01/31/24 14:46 01/31/24 14:57 01/31/24 15:00 Temperature Pulse Rate 94 91 91 Pulse Rate [Right Pulse Oximeter] Respiratory Rate Blood Pressure 98/50 L Blood Pressure [Ri ght Upper Arm] Pulse Oximetry 100 100 [facility] 01/31/24 15:01 01/31/24 15:15 01/31/24 15:16 Temperature Pulse Rate 90 91 94 Pulse Rate [Right Pulse Oximeter] Respiratory Rate Blood Pressure 101/51 L 115/59 L Blood Pressure [Ri ght Upper Arm] Pulse Oximetry 100 100 100 [facility] 01/31/24 15:17 01/31/24 15:30 01/31/24 15:31 Temperature Pulse Rate 91 92 91 Pulse Rate [Right Pulse Oximeter] Respiratory Rate Blood Pressure 113/51 L Blood Pressure [Ri ght Upper Arm] Pulse Oximetry 100 100 100 Oxygen Delivery [facility] 01/31/24 15:45 01/31/24 16:00 01/31/24 16:00 Temperature Pulse Rate 93 95 Pulse Rate [Right Pulse Oximeter] Respiratory Rate 16 Blood Pressure Blood Pressure [Ri ght Upper Arm] Pulse Oximetry 100 100 Oxygen Delivery [facility] 01/31/24 16:02 01/31/24 16:03 Temperature Pulse Rate 95 95 Pulse Rate [Right Pulse Oximeter] Respiratory Rate Blood Pressure 106/49 L Blood Pressure [Ri ght Upper Arm] Pulse Oximetry 100 100 Oxygen Delivery [facility] Hospitalist - H&P: Result Labs Labs: Short CBC 01/31/24 Range/Units 14:33 WBC 6.61 (4.50-11.00) K/uL Hgb 7.5 L* (12.0-16.0) gm/dL Hct 22.0 L (33.0-51.0) % Plt Count 50 L (140-440) K/uL BMP 01/31/24 14:41 Sodium 121 L* Potassium 4.3 Chloride 87 L Carbon Dioxide 24 BUN 19 Creatinine 0.8 Glucose 122 H Calcium 7.8 L Liver Function 01/31/24 Range/Units 14:41 Total Bilirubin 2.9 H (0.1-1.5) mg/dL Direct Bilirubin 0.9 H (0.0-0.5) mg/dL AST 71 H (12-35) U/L ALT 26 (4-35) U/L Alkaline Phosphatase 131 (40-150) U/L Albumin 3.8 (3.3-5.0) g/dL Assessment and Plan Assessment and plan (1) Alcoholic liver disease: Problem comment: -decompensated; all the stigmata including history of an elevated INR, new lifetime low platelet count, chronic hyponatremia, chronic refractory ascites, new metabolic encephalopathy, cachectic -MELD 23 -nutritional and general supportive measures -lactulose 20 g t.i.d. -awaiting INR and ammonia levels at admission -IV PPI, consider octreotide, Reglan -transfer to hepatology Service, EGD .... All appropriate -parental nutrition needs to be addressed if patient is going to pursue transplantation Status: Acute (2) Chronic blood loss anemia: Problem comment: -guaiac stools and any vomit -likely low volume GI bleed either from known varices or gastropathy -transfuse 2 units once PICC line is in place Status: Acute (3) Metabolic encephalopathy: Problem comment: -OT to assess -continue lactulose and nutritional support -continue xifaxan BID Status: Acute (4) Cirrhosis of liver: Problem comment: Decompensated alcohol-associated liver cirrhosis. See scanned [facility]. Status: Chronic (5) Ascites: Problem comment: -refractory -large volume paracentesis approximately every 2 weeks, 4 procedures since December 12, last was 01/27/24 -less acute tonight on admission than in previous encounters Status: Chronic (6) Hyponatremia: Problem comment: -chronic -normal saline at 75 mL an hour. Dietary salt restriction. Free water restriction. Consider sodium tabs, hypertonic saline with DDAVP. Status: Chronic (7) S/P abdominal paracentesis: Problem comment: Last was 01/27/24 Status: Acute (8) Esophageal varices: Problem comment: Banding 10/08/23. See scanned [facility]. Status: Chronic (9) Tobacco abuse: Status: Chronic (10) Insomnia: Problem comment: Hold trazodone from home med Status: Acute
[2024-01-31 16:59] LABS: Lab Add On Test New Spec Needed
--- NOTE | 2024-01-31 17:03 | XR_ITS ---
Patient: KARLI ARMSTRONG Facility:?[facility] Patient ID:?[id number] Site Patient ID:?[id number]. Site :?[id number] Study:?XRay-Chest Portable one view-01/31/2024 11:46:49 PM Ordering Physician:NANCY Final Report: Indication: PICC placement Technique: Chest 1 view Comparison: None Findings/Impression: Cardiovascular and mediastinum: Heart size and vasculature are normal in caliber and appearance. Mediastinum is within normal limits. Right-sided PICC is in satisfactory position with the tip in the low SVC. Lungs and pleural space: Lungs are clear. No sign of infiltrate or mass. No sign of pleural effusion. No pneumothorax. Bones and soft tissues: No significant findings. Dictated by Rick Gomez MD @ 02/01/2024 12:39:45 AM Signed by:?Rick Gomez MD @02/01/2024 12:39:45 AM (Electronic Signature)
[2024-01-31 17:06] LABS: PCO2 VBG 35 mmHG (40-50); PO2 VBG 39.2 mmHG (25-47); pH VBG 7.497 (7.32-7.43)
[2024-01-31 17:07] LABS: HCO3 VBG 27 mmol/L (21-28)
[2024-01-31 17:15] LABS: Ethanol* < 0.01 % (0.01-0.03); Magnesium* 4.4 mg/dL (1.5-2.6)
[2024-01-31] MEDS: diphenhydrAMINE 50 MG/ML inj IVP (19:45)
[2024-01-31] MEDS: 0.9 % SODIUM CHLORIDE 1000 ml 1,000 ML 75 ML IV (20:05)
[2024-01-31] MEDS: PANTOPRAZOLE SODIUM 40 MG INJ 80 MG IVP (20:06)
[2024-01-31 20:25] LABS: Appearance Urine Cloudy (Clear); Bilirubin Urine Negative (Negative); Blood Urine Negative (Negative); Color Urine Amber (Yellow); Glucose Urine Negative (Negative); Ketones Urine Negative (Negative); Leukocyte Esterase Urine Trace (Negative); Nitrite Urine Negative (Negative); Protein Urine Negative (Negative); Specific Gravity Urine 1.025 (1.000-1.030); Urobilinogen Urine 0.2 (0.2-1.0)
[2024-01-31] MEDS: ONDANSETRON 2 MG/ML inj 4 MG IVP (20:25)
[2024-01-31] MEDS: SODIUM CHLORIDE 0.9 % (FLUSH) 10 ML SYRINGE 5 ML IVF ×4 (20:26→22:45)
--- NOTE | 2024-01-31 20:44 | PC.NURSE ---
End of shift [phone] - Pt arrived to floor from ED at approximately 1616. Pt appeared drowsy, needed to be roused multiple times to answer questions from RN. Pt reported falling at home, unable to reliably report if any injury occurred during falls. RN observed skin tears on lower legs, bruising on arms and legs, and skin wide spread skin discoloration. Pt denied pain, nausea, SOB. Up to bedside commode with 2 person assist, gait belt and stand pivot. Pt observed to be restless, requesting help and stating she needed to go and reporting to family at bedside that she wanted to go home. Family, RN, and FLORENTINO able to keep pt resting comfortably in bed. MD notified of agitation, medication given per MAR with pt behavior indicating improvement. Tolerating RA, emesis noted upon oral intake of fluids.
[2024-01-31] MEDS: RIFAXIMIN 550 MG 550 EACH PO (21:53)
[2024-01-31] MEDS: MELATONIN 3 MG TABLET PO (21:53)
[2024-01-31] MEDS: LACTULOSE 20 GM/30 ML PO (21:53)
[2024-01-31] MEDS: OLANZapine 5 MG/ML inj IVP (22:05)
[2024-01-31] MEDS: LORazepam 2 MG/ML inj 0.5 MG IVP (22:44)
[2024-02-01] VITALS (12 sets, daily range): BP systolic 95–128; BP diastolic 51–66; PULSE 87–98; RESP 16–20; TEMP 36.8–37.2; O2SAT 97–100
[2024-02-01 00:41] LABS: INR 1.51 (0.91-1.10); Prothrombin Time 19.2 Seconds
[2024-02-01 00:51] LABS: Chloride* 92 mmol/L (96-114)
[2024-02-01 00:54] LABS: Anion Gap 6 mEq/L (7-15); Blood Urea Nitrogen* 18 mg/dL (7-30); Carbon Dioxide* 24 mmol/L (20-32); Creatinine* 0.8 mg/dL (0.5-1.5); Estimated Glomerular Filt Rate 83 ml/min
[2024-02-01 00:55] LABS: Calcium* 7.3 mg/dL (8.4-10.6); Glucose* 105 mg/dL (60-115); Magnesium* 3.9 mg/dL (1.5-2.6)
[2024-02-01 01:00] LABS: Sodium* 122 mmol/L (135-149)
[2024-02-01 01:26] LABS: HCO3 VBG 27 mmol/L (21-28); PCO2 VBG 36 mmHG (40-50); pH VBG 7.487 (7.32-7.43)
[2024-02-01 01:29] LABS: Lactate* 2.1 mmol/L (0.5-1.9)
[2024-02-01 06:50] LABS: HCO3 VBG 26 mmol/L (21-28); Ionized Calcium* 0.97 mmol/L (1.11-1.30); Lactate* 1.9 mmol/L (0.5-1.9); PCO2 VBG 32 mmHG (40-50); pH VBG 7.516 (7.32-7.43)
[2024-02-01 06:54] LABS: Basophils Absolute Auto 0.02 K/uL (0.00-0.30); Basophils Percent Auto 0.3 % (0.0-3.0); Eosinophils Absolute Auto 0.05 K/uL (0.00-0.50); Eosinophils Percent Auto 0.7 % (0.0-7.0); Hematocrit 24.1 % (33.0-51.0); Hemoglobin* 8.5 gm/dL (12.0-16.0); Immature Granulocytes Abs Auto 0.02 K/uL (0.00-0.30); Immature Granulocytes Pct Auto 0.3 %; Immature Reticulocyte Fraction 7.2 % (3.0-15.9); Lymphocytes Absolute Auto 2.19 K/uL (0.90-2.90); Lymphocytes Percent Auto 32.3 % (20-44); Mean Corpuscular HGB Conc 35 gm/dL (32-36); Mean Corpuscular Hemoglobin 33 pg (26-34); Mean Corpuscular Volume 93 fL (80-100); Monocytes Percent Auto 11.8 % (0.0-11.0); Neutrophils Absolute Auto 3.71 K/uL (1.7-7.0); Neutrophils Percent Auto 54.6 % (42.0-72.0); Platelet Count* 145 K/uL (140-440); RDW Coefficient of Variation % 17.5 % (11.5-15.5); Reticulocyte Hemoglobin Equivi 33.1 pg (29.0-35.0); Reticulocyte Percent 2.4 % (0.5-2.0); Reticulocytes Absolute 0.06 # (0.03-0.08); White Blood Count* 6.79 K/uL (4.50-11.00)
[2024-02-01 06:58] LABS: Slide Review Reflex No
[2024-02-01 07:16] LABS: PO2 VBG 80.8 mmHG (25-47)
[2024-02-01 07:21] LABS: Iron* 109 ug/dL (37-170)
[2024-02-01 07:29] LABS: Albumin* 2.9 g/dL (3.3-5.0); Chloride* 94 mmol/L (96-114)
[2024-02-01 07:30] LABS: Percent Iron Saturation 81 % (20-50); Potassium* 4.2 mmol/L (3.6-5.1); Total Iron Binding Capacity 134 ug/dL (265-497)
[2024-02-01 07:32] LABS: Anion Gap 6 mEq/L (7-15); Bilirubin Direct* 0.7 mg/dL (0.0-0.5); Bilirubin Total* 3.3 mg/dL (0.1-1.5); Carbon Dioxide* 24 mmol/L (20-32); Creatinine* 0.7 mg/dL (0.5-1.5); Estimated Glomerular Filt Rate 97 ml/min; INR 1.56 (0.91-1.10); Prothrombin Time 19.7 Seconds
[2024-02-01 07:33] LABS: Alanine Aminotransferase* 22 U/L (4-35); Alkaline Phosphatase* 114 U/L (40-150); Aspartate Amino Transferase* 64 U/L (12-35); Blood Urea Nitrogen* 18 mg/dL (7-30); Calcium* 7.1 mg/dL (8.4-10.6); Glucose* 74 mg/dL (60-115); Magnesium* 3.6 mg/dL (1.5-2.6); Total Protein* 6.9 g/dL (6.0-8.3)
[2024-02-01 07:35] LABS: C Reactive Protein* 1.7 mg/dL (0.5-1.0)
--- NOTE | 2024-02-01 07:53 | PC.NURSE ---
[phone] Pt restless and agitated at beginning of shift, including during PICC insertion, prn one time medications administered which seemed to help a little. pt attempts to climb out of bed, repeats help me while attempting to leave, when asked what patient needs help with she is unable to verbalize anything specific. received 2 units of blood during the night, tolerated well. no urine output during the night. ascites to abdomen large, audible fluid within abdomen. new skin tear to R forearm while removing tape, cleaned and dressed with Tegaderm. lung sounds clear, no edema noted to extremities, cough present.
[2024-02-01 07:59] LABS: Sodium* 124 mmol/L (135-149)
[2024-02-01] MEDS: 0.9 % SODIUM CHLORIDE 1000 ml 1,000 ML 75 ML IV ×2 (08:07→20:39)
[2024-02-01] MEDS: PANTOPRAZOLE SODIUM 40 MG INJ IVP ×2 (08:07→18:59)
[2024-02-01] MEDS: LACTULOSE 20 GM/30 ML PO (09:17)
[2024-02-01] MEDS: RIFAXIMIN 550 MG 550 EACH PO (09:17)
[2024-02-01] MEDS: FUROSEMIDE 40 MG TABLET PO (09:17)
[2024-02-01] MEDS: SPIRONOLACTONE 25 MG TABLET 100 MG PO (09:21)
[2024-02-01 09:24] LABS: Ferritin* 66.1 ng/mL (11.1-264.0)
--- NOTE | 2024-02-01 10:38 | REH.OT ---
OT/PT orders received. Evaluations are on hold per PA d/t Medical condition.
[2024-02-01] MEDS: LORazepam 2 MG/ML inj 0.5 MG IVP (11:32)
--- NOTE | 2024-02-01 11:58 | PM.IMPN1 ---
Progress Note: A&P Assessment and plan (1) Alcoholic liver disease: Problem details: -decompensated; all the stigmata including history of an elevated INR, new lifetime low platelet count, chronic hyponatremia, chronic refractory ascites, new metabolic encephalopathy, cachectic -MELD 23 -nutritional and general supportive measures -lactulose 20 g b.i.d. - changed to q.i.d. - only 1 BM thus far this morning -INR 1.56, ammonia 177 -IV PPI, consider octreotide, Reglan -transfer to hepatology Service, EGD .... 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 Family agrees that an EGD would help them to understand if there is an active bleed however able to verbalize that an invasive procedure such as this would otherwise not be beneficial in the broad picture Status: Acute (3) Metabolic encephalopathy: Problem details: -OT to assess -continue lactulose and nutritional support -continue xifaxan BID 01/30: Patient very sleepy, restless. Would need to be awake for q.i.d. dosing lactulose, rifaximin. Family does not want her stooling in bed, lacking strength to stool multiple times daily at the commode. Understand that without these medications, ammonia will continue to climb and encephalopathy worsen Status: Acute (4) Cirrhosis of liver: Problem details: Decompensated alcohol-associated liver cirrhosis. See scanned [facility]. Reviewed, acute on chronic worsening of the above Status: Chronic (5) Ascites: Problem details: -refractory -large volume paracentesis approximately every 2 weeks, 4 procedures since December 12, last was 01/27/24 -less acute tonight on admission than in previous encounters Status: Chronic (6) Hyponatremia: Problem details: -chronic -normal saline at 75 mL an hour. Dietary salt restriction. Free water restriction. Consider sodium tabs, hypertonic saline with DDAVP. 01/30: Will continue IVF for now, awaiting hospice options, comfort cares in place. Okay for fluid and diet to liking, as tolerated Status: Chronic (7) S/P abdominal paracentesis: Problem details: Last was 01/27/24 Status: Acute (8) Esophageal varices: Problem details: Banding 10/08/23. See scanned [facility]. 01/30: Will not plan to pursue invasive EGD, further transfusions, instead proceeding with comfort cares, hospice Status: Chronic (9) Tobacco abuse: Problem details: Noted Status: Chronic (10) Insomnia: Problem details: Hold trazodone from home med Status: Acute Plan With and daughters present, plan is to pursue comfort cares, hospice. Time Spent With Patient Total time spent: Total time spent caring for the patient today was 75 minutes. This includes time spent for the visit reviewing the chart, time spent during the visit, time spent after the visit and documentation and planning in coordination of care. Subjective Date Seen: 02/01/24 Interval history: Patient is seen with family at bedside including and 2 daughters. During my initial visit, patient is somnolent, difficult to awaken. On a revisit, patient is sitting in the reclining chair, very restless, confused, scooting out of the chair at risk for falling. She is able to tell me no when I ask her if she is in any pain. The remainder of the conversation is held with family. Our discussion involves the course of her health over the last 5 months. Her tells me that in September she had a small decline, followed by another decline in November, followed by a more rapid decline over the past 2 days. We reviewed her records from a visit with her GI hepatobiliary team in November where her weight is documented as 51.2 kg. Her current weight is 44 0.9 kg. Her says her oral intake has been declining. He is concerned that she is not getting adequate nutrition. He also knows that she would not want a feeding tube. She is falling more frequently, no longer safe at home. Her medical record from that visit in November also notes that she has had a chronic hepatic encephalopathy with persistent mental fogginess and fatigue with sleep-wake disturbance. For which she was prescribed lactulose and rifaximin, previously being on MiraLax. She has been more confused, restless over the last couple of days. Her ammonia is 177 currently. She has not been awake enough to take her lactulose this morning. In discussion with the family, they do not want for her to be receiving rectal lactulose, stooling the bed, unable to get to a commode independently. Patient also has a history of duodenal ulcers and esophageal varices. Her hemoglobin on admission was 7.5. This improved to 8.5 following 2 units PRBC. She is scheduled for an outpatient EGD on 02/03, would need to be transferred for a more emergent EGD if necessary. Family is in agreement an EGD may not be necessary end point diagnostic for her at this time. While patient and family have discussed liver transplant in the past, they are all under the understanding currently that she would likely not survive this surgery nor have the expected outcome. During our lengthy conversation, family is understanding that her gradual, now more rapid decline may be imminent. They want her to be comfortable, have dignity, and have an understanding that aggressive, invasive procedures would likely not be what she wanted either. When we discuss transferring to the setting of an acute tertiary hospital, her tells me his goal would be for her to be comfortable, palliative type cares. The family agrees then that transferring her would be more disruptive and the care outside of this facility would likely not match there new goals. Exam Narrative: Exam Narrative: PHYSICAL EXAM General: Extremely frail, cachectic HEENT: Normocephalic, atraumatic, scleral icterus Cardiovascular: RRR. No pitting edema Pulmonary: No dyspnea on room air Abdominal: Soft, distended, NTTP Neurological: Confused, very restless Extremities: No gross joint deformity or swelling Skin: Warm, dry. Thin, frail Const: Vital Signs, click to edit/add: Vital Signs - 24 hr 01/31/24 13:56 01/31/24 14:01 01/31/24 14:01 Temperature 98.3 F Pulse Rate 94 94 Pulse Rate [Pulse Oximeter] Pulse Rate [Right Pulse Oximeter] 95 Respiratory Rate 18 Blood Pressure 116/55 L 116/55 L Blood Pressure [Le ft Arm] Blood Pressure [Ri ght Upper Arm] 116/55 L Pulse Oximetry 100 100 100 Oxygen Delivery Me thod Room Air 01/31/24 14:02 01/31/24 14:15 01/31/24 14:42 Temperature Pulse Rate 94 95 91 Pulse Rate [Pulse Oximeter] Pulse Rate [Right Pulse Oximeter] Respiratory Rate Blood Pressure Blood Pressure [Le ft Arm] Blood Pressure [Ri ght Upper Arm] Pulse Oximetry 100 100 [facility] 01/31/24 14:46 01/31/24 14:57 01/31/24 15:00 Temperature Pulse Rate 94 91 91 Pulse Rate [Pulse Oximeter] Pulse Rate [Right Pulse Oximeter] Respiratory Rate Blood Pressure 98/50 L Blood Pressure [Le ft Arm] Blood Pressure [Ri ght Upper Arm] Pulse Oximetry 100 100 [facility] 01/31/24 15:01 01/31/24 15:15 01/31/24 15:16 Temperature Pulse Rate 90 91 94 Pulse Rate [Pulse Oximeter] Pulse Rate [Right Pulse Oximeter] Respiratory Rate Blood Pressure 101/51 L 115/59 L Blood Pressure [Le ft Arm] Blood Pressure [Ri ght Upper Arm] Pulse Oximetry 100 100 [facility] 01/31/24 15:17 01/31/24 15:30 01/31/24 15:31 Temperature Pulse Rate 91 92 91 Pulse Rate [Pulse Oximeter] Pulse Rate [Right Pulse Oximeter] Respiratory Rate Blood Pressure 113/51 L Blood Pressure [Le ft Arm] Blood Pressure [Ri ght Upper Arm] Pulse Oximetry 100 100 [facility] 01/31/24 15:45 01/31/24 16:00 01/31/24 16:00 Temperature Pulse Rate 93 95 Pulse Rate [Pulse Oximeter] Pulse Rate [Right Pulse Oximeter] Respiratory Rate 16 Blood Pressure Blood Pressure [Le ft Arm] Blood Pressure [Ri ght Upper Arm] Pulse Oximetry 100 100 [facility] 01/31/24 16:02 01/31/24 16:03 01/31/24 16:45 Temperature Pulse Rate 95 95 Pulse Rate [Pulse Oximeter] Pulse Rate [Right Pulse Oximeter] Respiratory Rate 20 Blood Pressure 106/49 L Blood Pressure [Le ft Arm] Blood Pressure [Ri ght Upper Arm] Pulse Oximetry 100 100 [facility] 01/31/24 19:00 01/31/24 20:31 01/31/24 23:00 Temperature 98.3 F 98.1 F Pulse Rate Pulse Rate [Pulse Oximeter] 95 96 Pulse Rate [Right Pulse Oximeter] Respiratory Rate 20 16 Blood Pressure Blood Pressure [Le ft Arm] 110/59 L 102/48 L Blood Pressure [Ri ght Upper Arm] Pulse Oximetry 100 100 98 [facility] Room Air 01/31/24 23:00 01/31/24 23:00 02/01/24 02:30 Temperature 98.3 F 98.5 F Pulse Rate 97 Pulse Rate [Pulse Oximeter] 92 Pulse Rate [Right Pulse Oximeter] Respiratory Rate 18 18 20 Blood Pressure 105/51 L Blood Pressure [Le ft Arm] 104/57 L Blood Pressure [Ri ght Upper Arm] Pulse Oximetry 99 99 [facility] 02/01/24 02:48 02/01/24 03:00 02/01/24 03:10 Temperature 98.2 F 98.6 F Pulse Rate 92 88 Pulse Rate [Pulse Oximeter] 90 Pulse Rate [Right Pulse Oximeter] Respiratory Rate 18 16 Blood Pressure 108/52 L Blood Pressure [Le ft Arm] 107/57 L Blood Pressure [Ri ght Upper Arm] Pulse Oximetry 98 99 Oxygen Delivery [facility] Room Air 02/01/24 03:33 02/01/24 04:10 02/01/24 04:18 Temperature 98.4 F 98.6 F 98.6 F Pulse Rate 88 90 93 Pulse Rate [Pulse Oximeter] Pulse Rate [Right Pulse Oximeter] Respiratory Rate 16 16 16 Blood Pressure 107/57 L 107/57 L 95/66 Blood Pressure [Le ft Arm] Blood Pressure [Ri ght Upper Arm] Pulse Oximetry 100 99 100 [facility] 02/01/24 04:27 02/01/24 05:10 02/01/24 05:12 Temperature 98.6 F 98.8 F 98.8 F Pulse Rate 92 87 88 Pulse Rate [Pulse Oximeter] Pulse Rate [Right Pulse Oximeter] Respiratory Rate 16 16 16 Blood Pressure 107/52 L 110/52 L 110/52 L Blood Pressure [Le ft Arm] Blood Pressure [Ri ght Upper Arm] Pulse Oximetry 100 100 [facility] 02/01/24 06:07 02/01/24 07:00 02/01/24 07:00 Temperature 98.9 F Pulse Rate 89 Pulse Rate [Pulse Oximeter] 98 Pulse Rate [Right Pulse Oximeter] Respiratory Rate 16 18 Blood Pressure 99/59 L Blood Pressure [Le ft Arm] Blood Pressure [Ri ght Upper Arm] Pulse Oximetry 98 97 Oxygen Delivery Me thod 02/01/24 07:00 02/01/24 07:00 Temperature 98.3 F Pulse Rate 91 Pulse Rate [Pulse Oximeter] 98 Pulse Rate [Right Pulse Oximeter] Respiratory Rate 18 Blood Pressure Blood Pressure [Le ft Arm] 128/63 Blood Pressure [Ri ght Upper Arm] Pulse Oximetry 97 Oxygen Delivery Me thod Room Air Labs Labs: Laboratory Results - last 24 hr 01/31/24 01/31/24 01/31/24 14:33 14:41 16:05 WBC 6.61 RBC 2.28 L Hgb 7.5 L* Hct 22.0 L MCV 97 MCH 33 MCHC 34 RDW Coeff of Katt 17.9 H Plt Count 50 L Neut % (Auto) 63.8 Lymph % (Auto) 24.4 Meeker % (Auto) 10.4 Eos % (Auto) 0.3 Baso % (Auto) 0.2 Neut # (Auto) 4.22 Lymph # (Auto) 1.61 [place] # (Auto) 0.70 Eos # (Auto) 0.02 Baso # (Auto) 0.01 Abs Immat Gran (auto) 0.06 Imm/Tot Granulo (auto) 0.9 Absolute Retic Percent Retic Immature Retic Fraction Retic Hgb Equivalent INR VBG pH 7.497 H VBG pCO2 35 L VBG pO2 39.2 VBG HCO3 27 Sodium 121 L* Potassium 4.3 Chloride 87 L Carbon Dioxide 24 Anion Gap 10 BUN 19 Creatinine 0.8 Estimated GFR 83 Glucose 122 H Lactate 4.3 H* Calcium 7.8 L Ionized Calcium Maryjane Magnesium 4.4 H* Iron TIBC % Saturation Ferritin Total Bilirubin 2.9 H Direct Bilirubin 0.9 H AST 71 H ALT 26 Alkaline Phosphatase 131 Ammonia C-Reactive Protein 1.9 H Total Protein 8.5 H Albumin 3.8 Lipase 203 TSH Urine Color Urine Appearance Urine pH Ur Specific [place] Urine Protein Urine Glucose (UA) Urine Ketones Urine Blood Urine Nitrite Urine Bilirubin Urine Urobilinogen Ur Leukocyte Esterase Ethyl Alcohol < 0.01 L Lab Acknowledgement POC Troponin I 0.00 L Blood Type A Positive Antibody Screen NEGATIVE Crossmatch ([facility]) See Detail 01/31/24 01/31/24 01/31/24 16:45 17:46 Unknown WBC RBC Hgb Hct MCV MCH MCHC RDW Coeff of Katt Plt Count Neut % (Auto) Lymph % (Auto) Meeker % (Auto) Eos % (Auto) Baso % (Auto) Neut # (Auto) Lymph # (Auto) [place] # (Auto) Eos # (Auto) Baso # (Auto) Abs Immat Gran (auto) Imm/Tot Granulo (auto) Absolute Retic Percent Retic Immature Retic Fraction Retic Hgb Equivalent INR VBG pH VBG pCO2 VBG pO2 VBG HCO3 Sodium Potassium Chloride Carbon Dioxide Anion Gap BUN Creatinine Estimated GFR Glucose Lactate Calcium Ionized Calcium Maryjane Magnesium Iron TIBC % Saturation Ferritin Total Bilirubin Direct Bilirubin AST ALT Alkaline Phosphatase Ammonia C-Reactive Protein Total Protein Albumin Lipase TSH Urine Color Clarisa A Urine Appearance Cloudy A Urine pH 6.0 Ur Specific [place] 1.025 Urine Protein Negative Urine Glucose (UA) Negative Urine Ketones Negative Urine Blood Negative Urine Nitrite Negative Urine Bilirubin Negative Urine Urobilinogen 0.2 Ur Leukocyte Esterase Trace A Ethyl Alcohol Lab Acknowledgement New Spec Needed Test Added POC Troponin I Blood Type Antibody Screen Crossmatch ([facility]) 02/01/24 02/01/24 02/01/24 00:00 04:00 06:38 WBC 6.79 RBC 2.60 L Hgb 8.5 L Hct 24.1 L MCV 93 MCH 33 MCHC 35 RDW Coeff of Katt 17.5 H Plt Count 145 Neut % (Auto) 54.6 Lymph % (Auto) 32.3 Meeker % (Auto) 11.8 H Eos % (Auto) 0.7 Baso % (Auto) 0.3 Neut # (Auto) 3.71 Lymph # (Auto) 2.19 Meeker # (Auto) 0.80 Eos # (Auto) 0.05 Baso # (Auto) 0.02 Abs Immat Gran (auto) 0.02 Imm/Tot Granulo (auto) 0.3 Absolute Retic 0.06 Percent Retic 2.4 H Immature Retic Fraction 7.2 Retic Hgb Equivalent 33.1 INR 1.51 H 1.56 H VBG pH 7.487 H 7.516 H VBG pCO2 36 L 32 L VBG pO2 114.0 H 80.8 H VBG HCO3 27 26 Sodium 122 L* 124 L* Potassium 4.0 4.2 Chloride 92 L 94 L Carbon Dioxide 24 24 Anion Gap 6 L 6 L BUN 18 18 Creatinine 0.8 0.7 Estimated GFR 83 97 Glucose 105 74 Lactate 2.1 H 1.9 Calcium 7.3 L 7.1 L Ionized Calcium Maryjane 0.97 L Magnesium 3.9 H 3.6 H Iron 109 TIBC 134 L % Saturation 81 H Ferritin 66.1 Total Bilirubin 3.3 H Direct Bilirubin 0.7 H AST 64 H ALT 22 Alkaline Phosphatase 114 Ammonia 177.0 H C-Reactive Protein 1.7 H Total Protein 6.9 Albumin 2.9 L Lipase TSH 2.270 Urine Color Urine Appearance Urine pH Ur Specific [place] Urine Protein Urine Glucose (UA) Urine Ketones Urine Blood Urine Nitrite Urine Bilirubin Urine Urobilinogen Ur Leukocyte Esterase Ethyl Alcohol Lab Acknowledgement POC Troponin I Blood Type Antibody Screen Crossmatch ([facility])
--- NOTE | 2024-02-01 12:00 | NUTR.NU ---
RDN with nutrition screen related to low oral intake recently and weight loss. Per MD during IDT today, not appropriate to visit at this time due to discussing goals of care today with patient and family. No nutrition interventions at this time.
[2024-02-01] MEDS: fentaNYL 12 mcg/hr PATCH 1 PATCH TRANSDERMA (12:30)
--- NOTE | 2024-02-01 15:04 | PC.SOCIAL ---
Discharge planning: MEt with and dtrs regarding d/c plan. They are requesting placement at [facility] with hospice arranged with [facility]. Called and faxed information to Rashmi at [facility] and received a call back stating they can accept pt for admit tomorrow before 2:00, as long as hospice can do a same day admission. Called and spoke with Delmi at [facility] and faxed requested information. Delmi will check on insurance coverage and schedule for admission and call back with plan. drug department worker to follow up as needed.
[2024-02-01] MEDS: MORPHINE 10 MG/0.5 ML ORAL SOLN PO ×2 (16:08→18:59)
[2024-02-01] MEDS: LORazepam 2 MG/ML inj IVP (17:01)
--- NOTE | 2024-02-01 19:00 | PC.NURSE ---
[End of Shift Nursing Note]: Patient transitioned to comfort cares this shift with plans to discharge to hospice house tomorrow. Patient's anxiety and agitation symptoms managed with oral Morphine and PRN IV Ativan. Cedeno catheter in place and patent. Patient repositioned every 2 hours during shift. Patient has multiple skin tears due to fragile skin integrity. Family at bedside for majority of shift. Will continue to implement ongoing plan of care.
[2024-02-02] MEDS: MORPHINE 10 MG/0.5 ML ORAL SOLN PO ×2 (00:18→12:43)
--- NOTE | 2024-02-02 06:30 | PC.NURSE ---
[id number] Pt comfortable all shift, turn and repo as tolerated.
[2024-02-02] MEDS: PANTOPRAZOLE SODIUM 40 MG INJ IVP (07:25)
--- NOTE | 2024-02-02 08:18 | PC.SOCIAL ---
Discharge planning: Pt has been accepted for admit to [facility] today before 2:00. Spoke with [facility], Delmi, . She was unable to check on insurance benefits for hospice yesterday as the [employer] website was not working. She expects to be able to confirm hospice coverage this morning and would like pt to arrive at [facility] between 11-1 today for admit. Pt will need non-emergency ambulance transport, expected to be covered by insurance. forest and conservation worker to follow up as needed.
[2024-02-02 08:28] VITALS: BP 105/57; PULSE 106; RESP 16; TEMP 37.3; O2SAT 76
--- NOTE | 2024-02-02 09:21 | PM.DS1 ---
DS: Providers Provider Date Seen: 02/02/24 Date of admission: 01/31/24 16:45 Primary care physician: Jared Delgado MD Admitting Clinician: Iris Carrera MD Consults: Attending Physician on discharge: Elizabeth Jeter MD DS: Diagnosis Discharge Diagnosis (1) Alcoholic liver disease: Status: Acute Problem details: -decompensated; all the stigmata including history of an elevated INR, new lifetime low platelet count, chronic hyponatremia, chronic refractory ascites, new metabolic encephalopathy, cachectic -MELD 23 -nutritional and general supportive measures -lactulose 20 g b.i.d. - changed to q.i.d. - only 1 BM thus far this morning -INR 1.56, ammonia 177 -IV PPI, consider octreotide, Reglan -transfer to hepatology Service, EGD .... 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 Would need to be awake for q.i.d. dosing lactulose, rifaximin. Family does not want her stooling in bed, lacking strength to stool multiple times daily at the commode. Understand that without these medications, ammonia will continue to climb and encephalopathy worsen DS: Summary Hospital Course Hospital Course: Monique was admitted for worsening hepatic encephalopathy in the setting of known chronic liver disease. After discussion with family, comfort-focused measures elected and patient transferred to hospice at [facility] on 02/02/24. Time Spent with Patient Time attestation: Total time spent providing and/or coordinating discharge services: Time spent: Less than 30 minutes Exam Narrative: Exam Narrative: Patient is sleeping comfortably in bed, does not awake to voice. Scattered bruising on extremities, + jaundice. Const: Vital Signs, click to edit/add: Vital Signs - 24 hr 02/02/24 08:28 Temperature 99.1 F Pulse Rate [Pulse Oximeter] 106 H Respiratory Rate 16 Blood Pressure [Le ft Arm] 105/57 L Pulse Oximetry 76 L Oxygen Delivery Me thod Room Air DS: Data Data Completed and Pending Labs on day of discharge: Labs from last 24 hours 02/01/24 04:00 Ferritin 66.1 Preliminary micro results at discharge 01/31/24 Unknown Urine Culture - Preliminary Urine Catheterized NO GROWTH AFTER 24 HOURS Discharge Plan Discharge Disposition: Xfer Home- (Hospice) Date of Admission: 01/31/24 16:45 Attending Provider on Discharge: Elizabeth Jeter Primary Care Provider: Jared Delgado Condition: Unchanged Anticipated Discharge Date/Time: 02/02/24 09:16 Discharge Medications: New haloperidol 5 mg Tablet 2.5 - 7.5 mg PO Q4H PRN (Reason: Delerium) Qty: 30 0RF fentanyl 12 mcg/hr Patch 72 Hour 1 patch transdermal Q72H Qty: 5 0RF morphine concentrate 10 mg/0.5 mL Syringe 1 - 10 mg PO Q1H PRNQty: 50 0RF lorazepam 1 mg tablet 1 mg PO TID PRNQty: 20 0RF Discontinued trazodone 50 mg tablet 50 - 100 mg PO QPM Qty: 60 5RF furosemide 40 mg tablet 40 mg PO DAILY spironolactone 100 mg tablet 50 mg PO DAILY Xifaxan 550 mg tablet 550 mg PO BID lactulose 10 gram/15 mL solution 30 ml PO Q12H pantoprazole [Protonix] 40 mg tablet,delayed release (DR/EC) 40 mg PO BID Qty: 60 3RF albumin, human 25 % 25 % parenteral solution 50 g IV ONCE Rx Instructions: may repeat once in 20-30 minutes if not effective Discharge Orders: Discharge Order (Routine); Ordered 02/02/24 Ordered By: Elizabeth Jeter Follow Up Appointments: Jared Delgado MD [Primary Care Provider] - Forms: [employer] Info Instructions
--- NOTE | 2024-02-02 12:09 | PC.SOCIAL ---
Discharge planning- Phone call to [place] ([facility]) at [phone]. Left a voicemail regarding hospice admit time for today. Received a phone call from Berenice (Nurse at [facility]). Hospice will complete admission at 2:00 pm. Berenice will call med/surg nursing for a nurse to nurse report. Per [place] pt will need to admit prior to 2:00 pm. Pt will transport via non-emergency ambulance at 1:00 pm. Met with pt's Timo and provided an update. Phone call to Rashmi at [facility] and provided her with an update. Charge nurse will fax orders to [facility] and [facility]. Social work will follow up as needed.
--- NOTE | 2024-02-02 13:36 | PC.NURSE ---
PATIENT MINIMALLY RESPONSIVE BUT OPENS EYES WHEN REPOSITIONED. FAMILY PRESENT IN ROOM AND SUPPORTIVE. REPORT GIVEN TO ANTONY WHITT AT HOSPICE. HOSPICE OKAYED PATIENT TO DISCHARGE WITH PICC LINE AND COFFMAN IN PLACE. PICC LINE WRAPPED WITH KERLIX PER RN REQUEST. FENTANYL PATCH IN PLACE ON RIGHT SHOULDER AT DISCHARGE. ADMINISTERED ROXANOL PRIOR TO DISCHARGE PER HOSPICE REQUEST. DAUGHTER PRESENT IN ROOM AT TIME OF TRANSFER AND TOOK PATIENT'S BELONGINGS WITH HER. PATIENT TRANSFERRED VIA [facility].
== END 2024-02-02 12:55 | disposition hospice, home (50) | DRG 280 ==
LOC: ED 14:14 → MEDSURG 16:11
PROVIDERS: Admitting Provider Family Medicine; Emergency Provider Emergency Medicine; PCP Family Medicine; Visit Provider Family Medicine
DX: K70.31 Alcoholic cirrhosis of liver with ascites (principal); I85.11 Secondary esophageal varices with bleeding; D50.0 Iron deficiency anemia secondary to blood loss (chronic); K76.82 Hepatic encephalopathy; G93.41 Metabolic encephalopathy; K70.40 Alcoholic hepatic failure without coma; K76.6 Portal hypertension; F10.288 Alcohol dependence with other alcohol-induced disorder; R64 Cachexia; I86.4 Gastric varices; D69.6 Thrombocytopenia, unspecified; G31.2 Degeneration of nervous system due to alcohol; E87.1 Hypo-osmolality and hyponatremia; Z91.81 History of falling; R11.10 Vomiting, unspecified; I10 Essential (primary) hypertension; E86.0 Dehydration; Z72.0 Tobacco use; G47.00 Insomnia, unspecified; F32.A Depression, unspecified
CPT/HCPCS: 36415; 36430; 36573; 51701; 80048; 80076; 81001; 81003; 82077; 82140; 82270; 82330; 82728; 82803; 83540; 83550; 83605; 83690; 83735; 84443; 84484; 85025; 85045; 85610; 86140; 86850; 86900; 86901; 86922; 87086; 93005; 99283; 99284; 99285; A9270; C1751; C9113; J1200; J2060; J2405; J7030; P9016

== ENCOUNTER 2024-02-02 12:49 | Outpatient (CLI) | payer BC, SELFPAY ==
--- OUTSIDE RECORDS SUMMARY | 2024-02-05 06:10 | XMS_ITS | Continuity of Care Document ---
Author Organization [facility] Address [address] [address] [place] [address] Phone Care Team Providers Care Value Engineer Name Role Phone No Information Unavailable Unavailable [...] Diagnoses Date Provider Providers Copied on Encounter [facility], [address] [address], [place], [place], [id number], [place] tel:[phone] No Information Dec-0 4 No Information Sub[facility] Hosp[facility] E&m Minr Compl [facility], [address] [address], [place], [place], [id number], [place] tel:[phone] [facility] No Information 4 Dino Guzman. [address] [place] [address], [id number], [place]. tel:[phone] Referring Provider: Thomas Sun MD, [address] [place] [address], [id number]. tel:[phone] [facility] Hosp[facility]da E&m Minr Compl [facility], [address] [address], [place], [id number], [place] tel:[phone] [facility] No Information 4 Kirsty Minor. [address] [facility], [address], [id number], . tel:[phone] Referring Provider: Iván Strauss, [address] [place] [address], [id number]. [phone] Init Inpt Cons New/est Mod-hi [facility], [address] [address], [place], [place], [id number], tel:[phone] [facility] Esophageal varices determined by endoscopy 4 Brian Gonzales. [address] [place] [address], [address], [id number], [place]. tel:[phone] Referring Provider: Janet Torres MD, [address] [place] [address], [id number]. tel:[phone] Family History Family Member Type Diagnosis Age At Onset No Information Payers Payer name Insurance type Covered constitution party ID Authoriza tion(s) No Information Social [...]
--- OUTSIDE RECORDS SUMMARY | 2024-02-05 06:11 | XMS_ITS ---
Author Organization [facility] Address [address] [place] [address] Care Team Providers Care Herbicide Service Sales Representative Name Role Phone Unavailable Unavailable Unavailable Surgery Details Not on file Complications Check Surgery Details section. Procedure Estimated Blood Loss Check Surgery Details section. Procedure Findings Check Surgery Details section. Procedure Specimens Taken Check Surgery Details section.
--- OUTSIDE RECORDS SUMMARY | 2024-02-05 06:11 | XMS_ITS | Referral Summary ---
Author Organization [facility] Address [address] [place] [address] Care Team Providers Care Environmental Control Administrator Name Role Phone Elsewhere, Pcp Primary Care Provider Unavailabl e Source Comments Patient records contain information from all sites at [facility]. For routine questions regarding patient records, call [phone] during business hours, M-F 8:00 AM - 5:00 PM Central Time. Record requests for emergency care only can be directed to [phone] at any time.[facility] Encounters Date Type Department Care Team Description 02/01/2024 Clinical Communication Division of Gastroenterology in [place], [place] [address] [place] [phone] Katja Umana M.D. 02/01/2024 Documentation Division of Gastroenterology in [place], [place] [address] [place] [phone] Katja Umana M.D. 01/25/2024 Clinical Communication Division of Gastroenterology in [place], [place] [address] [place] [phone] Katja Umana M.D. 01/14/2024 Clinical Communication Division of Gastroenterology in [place], [place] [address] [place] [phone] Katja Umana M.D. 12/29/2023 Clinical Communication [facility] [place], [place] [address] [place] [phone] Katja Umana M.D. Phone Contact (Friends and family authorization ) 12/28/2023 Clinical Communication Division of Gastroenterology in [place], [place] [address] [place] [phone] Katja Umana M.D. 12/21/2023 Clinical Communication [facility] in [place], [place] [address] [place] [phone] Katja Umana M.D. 12/20/2023 Orders Only Department of Nicotine Dependence, [facility] in [place], [place] [address] [place] [phone] Sudha Bernstein M.A., Yesy.KarrieC.S.W., C.T.T.S. 12/20/2023 Clinical Communication Division of Gastroenterology in [address] [phone] Katja Umana M.D. Scheduling 12/20/2023 2:00 PM CDT Virtual Visit Department of Nicotine Dependence, [facility] in [place], [place] [address] [place] [phone] Sudha Bernstein M.A., Yesy.I.C.S.W., C.T.T.S. Nicotine Dependence Cigarettes With Withdrawal (Primary Dx) 12/16/2023 9:34 AM CDT - 12/16/2023 11:22 AM CDT Hospital Encounter Department of Radiology, [facility] in [place], [place] [address] [place] [phone] Katja Umana M.D. Alcoholic Cirrhosis Of Liver With Ascites (HCC); Ascites Discharge Disposition: Home or Self Care 12/09/2023 4:30 PM CDT Office Visit Brent Alvarenga [facility] in [place], [place] [address] [place] [phone] Katja Umana M.D. Olson, Jody C, M.D. Alcoholic Cirrhosis Of Liver With Ascites (HCC) (Primary Dx); Ascites; Sarcopenia 12/08/2023 10:30 AM CDT Comprehensive Visit Section of Infectious Diseases in [place], [place] [address] [place] [phone] Katja Umana M.D. Brianna Anglin APRN, C.N.P., D.N.P. 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 Order Request 11/19/2023 10:08 AM CERAMIC RESEARCH ENGINEER - 11/19/2023 12:51 PM CERAMIC RESEARCH ENGINEER Hospital Encounter Department of Radiology, [address] [phone] Felipe Morales M.D. Ascites Discharge Disposition: Home or Self Care 11/18/2023 Orders Only Department of Nicotine Dependence, [address] [phone] Sudha Bernstein M.A., L.I.C.S.W., C.T.T.S. 11/18/2023 11:00 AM CERAMIC RESEARCH ENGINEER Virtual Visit Department of Nicotine Dependence, [address] [phone] Sudha Bernstein M.A., L.I.C.S.W., C.T.T.S. Nicotine Dependence Cigarettes With Withdrawal (Primary Dx) 11/11/2023 Orders Only Department of Nicotine Dependence, [address] [phone] Sudha Bernstein M.A., L.I.C.S.W., C.T.T.S. 11/11/2023 Clinical Communication Department of Nicotine Dependence, [facility] in [address] [phone] Sudha Bernstein M.A., Jerome., C.T.T.S. [place] Med Request 11/11/2023 11:00 AM CERAMIC RESEARCH ENGINEER Virtual Visit Department of Nicotine Dependence, [facility], in [place], [place] [address] [place] [phone] Sudha Bernstein M.A., Jerome., C.T.T.S. Nicotine Dependence Cigarettes With Withdrawal (Primary Dx) from Last 3 Months Allergies No known [...] oz pur e alcohol) [facility] [employer] Answer Date Recorded In the past 12 months has e [employer], gas, oil, or water [employer] threatened to shut off services in your [...] Date Recorded Employment status Working with temporary [employer] 10/15/2023 Housing Stability Answer Date Recorded What is your living situation today? [facility] 10/15/2023 Sex and Gender Information Value Date Recorded Sex Assigned at Female 10/06/2023 10:50 AM CERAMIC RESEARCH ENGINEER Gender Identity Female 10/06/2023 10:50 AM CERAMIC RESEARCH ENGINEER Sexual Orientation Straight 10/06/2023 10 :50 AM CERAMIC RESEARCH ENGINEER Last Filed Vital Signs Vital Sign Reading Time Taken Comments Blood Pressure 101/47 12/16/2023 10:52 AM CDT Pulse 77 12/16/2023 10:30 AM CDT Temperature 34.7 ??C (94.5 ??F) 12/09/2023 4:21 PM CD T Respiratory Rate 24 10/08/2023 4:16 PM CERAMIC RESEARCH ENGINEER Oxygen Saturation 100% 12/16/2023 10:30 AM CDT [...] inpatients and all outpatients) 11/19/2023 11:55 AM CERAMIC RESEARCH ENGINEER Ascites CELL COUNT AND DIFFERENTIAL, BF Timed 11/19/2023 10:50 AM CERAMIC RESEARCH ENGINEER Ascites BACTERIAL CULTURE, AEROBIC + SUSC Timed 11/19/2023 10:50 AM CERAMIC RESEARCH ENGINEER Ascites HCV AB SCRN W/REFLEX TO HCV PCR, S Routine 10/06/2023 12:17 PM CERAMIC RESEARCH ENGINEER Alcoholic Cirrhosis Of Liver With Ascites (HCC) COLONOSCOPY Routine 10/10/2015 2:45 PM CERAMIC RESEARCH ENGINEER from Last 3 Months or Most Recently Relevant to Health Maintenance Results * US Paracentesis with Imaging Guidance (12/16/2023 10:53 AM CDT) Only the most recent of2 resultswithin the time period is included. Anatomical [...] IMPRESSION: Ultrasound-guided paracentesis. EP Katja Umana M.D. [facility] US PROCEDURES * (ABNORMAL) [...] BLOOD ADD-ON [facility] [address] [place] [address], [facility] [address] [place] [address] * (ABNORMAL) CBC with Differential, Blood (12/09/2023 [...] BLOOD ADD-ON [facility] [address] [place] [address], [facility] DTL [facility] [address] [place] [address] [facility] [address] [place] [address] * (ABNORMAL) Comprehensive Metabolic Panel (12/09/2023 5:16 [...] M.D. LAB BLOOD ADD-ON Performing Organization Address City/[facility]/ZIP Co de Phone Number [facility] 200 [place] [address], [facility] 200 [place] [address] * Bacterial Culture, Aerobic + Susceptibility (11/19/2023 10:50 AM CERAMIC RESEARCH ENGINEER) Bacterial Culture, Aerobic + Susc No growth after 5 days of incubation. 11/24/2023 8:27 AM CDT DTL Fluid (Peritoneal Fluid) 11/19/2023 10:50 AM CERAMIC RESEARCH ENGINEER Narrative [facility] - 11/24/2023 8:27 AM CDT Bacterial Culture: Received Bactec aerobic and Bactec anaerobic bottles Felipe Morales M.D. LAB MICROBIOLOGY - GENERAL ORDERABLES Performing Organization Address City/[facility]/ZIP Co de Phone Number [facility] 200 [place] [address], [facility] [address] [place] [address] * Cell Count and Differential, Body Fluid (11/19/2023 10:50 AM CERAMIC RESEARCH ENGINEER) Fluid Type Peritoneal /Paracente sis 11/19/2023 12:39 PM CERAMIC RESEARCH ENGINEER DHPM Gross Appearance Serous 11/19/19 24 12:39 PM CERAMIC RESEARCH ENGINEER DHPM Total Nucleated Cells 201 /mcL 11/19/2023 12:39 PM CERAMIC RESEARCH ENGINEER DHPM Comment: ----REFERENCE VALUE---- Synovial: <150 /mcL Peritoneal: <500 /mcL Pleural: <500 /mcL Pericardial: <500 /mcL ----ADDITIONAL INFORMATION---- This test has been modified from the material flow analyst's instructions. Its performance characteristics were determined by [facility] in a manner consistent with CLIA requirements. This test has not been cleared or approved by the U.S. Food and Drug Administration. Neutrophils 20 % 11/19/2023 1:42 PM CERAMIC RESEARCH ENGINEER DHPM Comment: ----REFERENCE VALUE---- Synovial: <25% Peritoneal: <25% Pleural: <25% Pericardial: <25% Lymphocytes 16 Synovial <75% % 11/19/2023 1:42 PM CERAMIC RESEARCH ENGINEER DHPM Monocytes/Macropha ges 60 Synovial <70% % 11/19/2023 1:42 PM CERAMIC RESEARCH ENGINEER DHPM Other Cells 4 % 11/19/2023 1:42 PM CERAMIC RESEARCH ENGINEER DHPM Comment: ----REFERENCE VALUE---- The reference range and other method performance specifications have not been established for this bodyfluid. The test result must be integrated into the clinical context for interpretation. Other Cells Are: See Comment 11/19/2023 1:42 PM CERAMIC RESEARCH ENGINEER DHPM Comment:Mesothelial cells Comment See Comment 11/19/2023 1:42 PM CERAMIC RESEARCH ENGINEER DHPM Comment:No blasts or maligna nt cells seen. Reviewed by: Tech 11/19/2023 1:42 PM CERAMIC RESEARCH ENGINEER DHPM Fluid (Peritoneal Fluid) 11/19/2023 10:50 AM CERAMIC RESEARCH ENGINEER Felipe Morales M.D. LAB BODY FLUIDS AND STOOLS ORDERABLES [facility] [address] [place] [address], [facility] [address] [place] [address] * HCV Ab Scrn w/Reflex to HCV PCR, Serum (10/06/2023 12:17 PM CERAMIC RESEARCH ENGINEER) HCV Ab Screen, S Negative Negative 10/06/2023 9:12 PM CERAMIC RESEARCH ENGINEER [facility] Comment:[id number] rat io is <1.00. Blood (Blood, Venous) 10/06/2023 12:17 PM CERAMIC RESEARCH ENGINEER 10/06/2023 3:57 PM CERAMIC RESEARCH ENGINEER Katja Umana M.D. LAB MICROBIOLOGY - B LOOD ORDERABLES [facility] [address] [place] [address] [facility] [address] [place] [address] * Colonoscopy (10/10/2015 2:45 PM CERAMIC RESEARCH ENGINEER) 10/10/2015 2:45 PM CERAMIC RESEARCH ENGINEER Tanner VoraSPetros GI PROCEDURE [facility] [address] [place] [address], [facility] from Last 3 Months or Most Recently Relevant to Health Maintenance Care Teams Environmental Control Administrator Relationship Specialty Start Date End Date Elsewhere, Pcp PCP - General Family Medicine 12/07/23
--- OUTSIDE RECORDS SUMMARY | 2024-02-05 06:11 | XMS_ITS | Encounter Summary ---
Author Organization [facility] Address [address] [place] [address] Care Team Providers Care Fuel Operator Name Role Phone Elsewhere, Pcp Primary Care Provider Unavailabl e Reason for Referral * Outpatient (Routine) - Authorized Specialty Diagnoses / Procedures Referred By Contac t Referred To Contact Nicotine Dependence Sudha Bernstein M.A., Jerome., C.T.T.S. [address] [place] [phone] [facility] Referral ID Status Reason Start Date Expiration Date V isits Requested Visits Authorized [id number] Authorized 12/20/2023 06/20/2025 1 1 Scheduling Instructions Please schedule this patient for a follow up phone visit on March 21. No need to call it can just be added to my calendar. Encounter Details Date Type Department Care Team (Late st Contact Info) Description 12/20/2023 Orders Only Department of Nicotine Dependence, [facility], in [place], [place] [address] [place] [phone] Sudha Bernstein M.A., AvelIRodrigo.S.W., C.T.T.S. [address] [place] [phone] Social History Tobacco Use Types Packs/Day Years Used Date Smoking Tobacco: Every Day Cigarettes 0.5 41 Started: 02/11/1983 Passive Smoke Exposure: Never Smokeless Tobacco: Never Alcohol Use Standard Drinks/Week Comments Not Currently 0 (1 standard drink = 0.6 oz pur e alcohol) [facility] Utilities Answer Date Recorded In the [...] Assigned at Female 10/06/2023 10:50 AM HR OPERATIONS ADVISOR Gender Identity Female 10/06/2023 10:50 AM HR OPERATIONS ADVISOR Sexual Orientation Straight 10/06/2023 10 :50 AM HR OPERATIONS ADVISOR documented as of this encounter Plan of Treatment Scheduled Referrals Name Type Priority Associated Diagnoses Order Schedule Nicotine Dependence office visit (clinic) Outpatient Referral Routine Expected: 03/21/2024, Expires: 03/20/2025 documented as of this encounter Visit Diagnoses Not on filedocumented in this encounter Additional Health Concerns Assessment Noted Time PHQ-9 Depression Total Score: 3 10/20/19 24 7:30 AM HR OPERATIONS ADVISOR documented as of this encounter Care Teams Fuel Operator Relationship Specialty Start Date End Date Elsewhere, Pcp PCP - General Family Medicine 12/07/23 documented as of this encounter
--- OUTSIDE RECORDS SUMMARY | 2024-02-05 06:11 | XMS_ITS | Encounter Summary ---
Author Organization [facility] Address [address] [place] [address] Care Team Providers Care Emergency Crew Supervisor Name Role Phone Elsewhere, Pcp Primary Care Provider Unavailabl e Reason for Referral * Outpatient (Routine) - Authorized Specialty Diagnoses / Procedures Referred By Dotty t Referred To Contact Diagnoses Ascites Procedures US Paracentesis with Imaging Guidance Katja Umana M.D. [address] [place] [phone] [facility] Referral ID Status Reason Start Date Expiration Date V isits Requested Visits Authorized [id number] Authorized 12/30/2023 12/29/2024 4 4 Encounter Details Date Type Department Care Team (Latest Contact Info) Description 12/28/2023 Clinical Communication Division of Gastroenterology in [place], [place] [address] [place] [phone] Katja Umana M.D. [address] [place] [phone] Social History Tobacco Use Types Packs/Day Years Used Date Smoking Tobacco: Every Day Cigarettes 0.5 41 Started: 02/11/1983 Passive Smoke Exposure: Never Smokeless Tobacco: Never Alcohol Use Standard Drinks/Week Comments Not Currently 0 (1 standard drink = 0.6 oz pur e alcohol) [facility] Utilities Answer Date Recorded In the past 12 months has [employer], gas, oil, or water company threatened [...] Date Recorded Employment status Working with temporary [employer] 10/15/2023 Housing Stability Answer Date Recorded What is your living situation today? I have a [facility] place to live 10/15/2023 Sex and Gender Information Value Date Recorded Sex Assigned at Female 10/06/2023 10:50 AM ENGINEER OF SYSTEM DEVELOPMENT Gender Identity Female 10/06/2023 10:50 AM ENGINEER OF SYSTEM DEVELOPMENT Sexual Orientation Straight 10/06/2023 10 :50 AM ENGINEER OF SYSTEM DEVELOPMENT documented as of this encounter Plan of [...] Total Score: 3 10/20/19 24 7:30 AM ENGINEER OF SYSTEM DEVELOPMENT documented as of this encounter Care Teams Emergency Crew Supervisor Relationship Specialty Start Date End Date Elsewhere, Pcp PCP - General Family Medicine 12/07/23 documented as of this encounter
--- OUTSIDE RECORDS SUMMARY | 2024-02-05 06:11 | XMS_ITS | Encounter Summary ---
Author Organization [facility] Address [address] [place] [address] Care Team Providers Care Window Glazier Helper Name Role Phone Elsewhere, Pcp Primary Care Provider Unavailabl e Encounter Details Date Type Department Care Team (Late st Contact Info) Description 02/01/2024 Documentation Division of Gastroenterology in [place], [place] [address] [place] [phone] Katja Umana M.D. [address] [place] [phone] Social History Tobacco Use Types Packs/Day Years Used Date Smoking Tobacco: Every Day Cigarettes 0.5 41 Started: 02/11/1983 Passive Smoke Exposure: Never Smokeless Tobacco: Never Alcohol Use Standard Drinks/Week Comments Not Currently 0 (1 standard drink = 0.6 oz pur e alcohol) [facility] Utilities Answer Date Recorded In the past 12 months has [facility] [employer], gas, oil, or water [employer] threatened to shut off services in your [...] living situation today? I have a [facility] place to live 10/15/2023 Sex and Gender Information Value Date Recorded Sex Assigned at Female 10/06/2023 10:50 AM PHOTOFINISHING LABORATORY WORKER Gender Identity Female 10/06/2023 10:50 AM PHOTOFINISHING LABORATORY WORKER Sexual Orientation Straight 10/06/2023 10 :50 AM PHOTOFINISHING LABORATORY WORKER documented as of this encounter Progress Notes [...] He shared that they had travel to [place] a few weeks ago, and upon return [...] the patient's sister. From care communications between Timo and Mrs. Redmond's family members with the [...] They will be transferring Monique tomorrow to [facility], at [facility] in [place], which is close to their home. Timo [...] appreciation for the care provided by the [facility] team, and also asked for the [...] Total Score: 3 10/20/19 24 7:30 AM PHOTOFINISHING LABORATORY WORKER documented as of this encounter Care Teams Window Glazier Helper Relationship Specialty Start Date End Date Elsewhere, Pcp PCP - General Family Medicine 12/07/23 documented as of this encounter
--- OUTSIDE RECORDS SUMMARY | 2024-02-05 06:11 | XMS_ITS | Encounter Summary ---
Author Organization [facility] Address [address] [place] [address] Care Team Providers Care Fringe Knotter Name Role Phone Elsewhere, Pcp Primary Care Provider Unavailabl e Encounter Details Date Type Department Care Team (Latest Contact Info) Description 01/14/2024 Clinical Communication Division of Gastroenterology in [place], [place] [address] [place] [phone] Katja Umana M.D. [address] [place] [phone] Social History Tobacco Use Types Packs/Day Years Used Date Smoking Tobacco: Every Day Cigarettes 0.5 41 Started: 02/11/1983 Passive Smoke Exposure: Never Smokeless Tobacco: Never Alcohol Use Standard Drinks/Week Comments Not Currently 0 (1 standard drink = 0.6 oz pur e alcohol) [facility] Utilities Answer Date Recorded In the past 12 months has [facility] [employer] gas, oil, or water [employer] threatened to shut off services in [...] Date Recorded Employment status Working with temporary [employer] 10/15/2023 Housing Stability Answer Date Recorded What is your living situation today? I have a [facility] place to live 10/15/2023 Sex and Gender Information Value Date Recorded Sex Assigned at Female 10/06/2023 10:50 AM ZINC SKIMMER Gender Identity Female 10/06/2023 10:50 AM ZINC SKIMMER Sexual Orientation Straight 10/06/2023 10 :50 AM ZINC SKIMMER documented as of this encounter Plan of Treatment Not on file documented as of this encounter Visit Diagnoses Not on filedocumented in this encounter Additional Health Concerns Assessment Noted Time PHQ-9 Depression Total Score: 3 10/20/19 7:30 AM ZINC SKIMMER documented as of this encounter Care Teams Fringe Knotter Relationship Specialty Start Date End Date Elsewhere, Pcp PCP - General Family Medicine 12/07/23 documented as of this encounter
--- OUTSIDE RECORDS SUMMARY | 2024-02-05 06:11 | XMS_ITS | Encounter Summary ---
Author Organization [facility] Address [address] [place] [address] Care Team Providers Care Sole Leveler Name Role Phone Elsewhere, Pcp Primary Care Provider Unavailabl e Encounter Details Date Type Department Care Team (Latest Contact Info) Description 01/25/2024 Clinical Communication Division of Gastroenterology in [place], [place] [address] [place] [phone] Katja Umana M.D. [address] [place] [phone] Social History Tobacco Use Types Packs/Day Years Used Date Smoking Tobacco: Every Day Cigarettes 0.5 41 Started: 02/11/1983 Passive Smoke Exposure: Never Smokeless Tobacco: Never Alcohol Use Standard Drinks/Week Comments Not Currently 0 (1 standard drink = 0.6 oz pur e alcohol) [facility] Utilities Answer Date Recorded In the past 12 months has [facility] [email or web address], gas, oil, or water [employer] threatened to shut off services in your [...] Date Recorded Employment status Working with temporary [employer] 10/15/2023 Housing Stability Answer Date Recorded What is your living situation today? I have a [facility] place to live 10/15/2023 Sex and Gender Information Value Date Recorded Sex Assigned at Female 10/06/2023 10:50 AM CLIENT DEVELOPMENT CONSULTANT Gender Identity Female 10/06/2023 10:50 AM CLIENT DEVELOPMENT CONSULTANT Sexual Orientation Straight 10/06/2023 10 :50 AM CLIENT DEVELOPMENT CONSULTANT documented as of this encounter Miscellaneous [...] Depression Total Score: 3 10/20/19 7:30 AM CLIENT DEVELOPMENT CONSULTANT documented as of this encounter Care Teams Sole Leveler Relationship Specialty Start Date End Date Elsewhere, Pcp PCP - General Family Medicine 12/07/23 documented as of this encounter
--- OUTSIDE RECORDS SUMMARY | 2024-02-05 06:11 | XMS_ITS | Clinical Summary ---
Author Organization [facility] Address [address] [place] [address] Care Team Providers Care Or Assistant Name Role Phone Elsewhere, Pcp Primary Care Provider Unavailabl e Source Comments Patient records contain information from all sites at [facility]. For routine questions regarding patient records, call [phone] during business hours, M-F 8:00 AM - 5:00 PM Central Time. Record requests for emergency care only can be directed to [phone] at any time.[facility] Allergies No known active allergies Medications [...] 02/01/2024 Clinical Communication Division of Gastroenterology in [place], [place] [address] [place] [phone] Katja Umana M.D. 02/01/2024 Documentation Division of Gastroenterology in [place], [place] [address] [place] [phone] Katja Umana M.D. 01/25/2024 Clinical Communication Division of Gastroenterology in [place], [place] [address] [place] [phone] Katja Umana M.D. 01/14/2024 Clinical Communication Division of Gastroenterology in [place], [place] [address] [place] [phone] Katja Umana M.D. 12/29/2023 Clinical Communication [facility] [place], [place] [address] [place] [address] Katja Umana M.D. Phone Contact (Friends and family authorization ) 12/28/2023 Clinical Communication Division of Gastroenterology in [place], [place] [address] [place] [phone] Katja Umana M.D. 12/21/2023 Clinical Communication [facility] [place], [place] [address] [place] [phone] Katja Umana M.D. 12/20/2023 2:00 PM CDT Virtual Visit Department of Nicotine Dependence, [facility], in [place], [place] [address] [place] [address] Sudha Bernstein M.A., Yesy.MadeleineSPetrosW., C.T.T.S. Nicotine Dependence Cigarettes With Withdrawal (Primary Dx) 12/20/2023 Orders Only Department of Nicotine Dependence, [facility] in [place], [place] [address] [place] [address] Sudha Bernstein M.A., Yesy.MadeleineS.W., C.T.T.S. 12/20/2023 Clinical Communication Division of Gastroenterology in [place], [place] [address] [place] [phone] Katja Umana M.D. Scheduling 12/16/2023 9:34 AM CDT - 12/16/2023 11:22 AM CDT Hospital Encounter Department of Radiology, [facility] in [place], [place] [address] [place] [phone] Katja Umana M.D. Alcoholic Cirrhosis Of Liver With Ascites (HCC); Ascites Discharge Disposition: Home or Self Care 12/09/2023 4:30 PM CDT [facility] [place], [place] [address] [place] [phone] Katja Umana M.D. Olson, Jody C, M.D. Alcoholic Cirrhosis Of Liver With Ascites (HCC) (Primary Dx); Ascites; Sarcopenia 12/08/2023 10:30 AM CDT Comprehensive Visit Section of Infectious Diseases in [place], [place] [address] [place] [phone] Katja Umana M.D. Mackey, Callie A, APRN, C.N.P., D.N.P. 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 Order Request 11/19/2023 10:08 AM ENERGY SYSTEMS ENGINEER - 11/19/2023 12:51 PM ENERGY SYSTEMS ENGINEER Hospital Encounter Department of Radiology, [facility] in [place], [place] [address] [place] [phone] Felipe Morales M.D. Ascites Discharge Disposition: Home or Self Care 11/18/2023 11:00 AM ENERGY SYSTEMS ENGINEER Virtual Visit Department of Nicotine Dependence, [place], [place] [address] [place] [phone] Sudha Bernstein M.A., L.I.C.S.W., C.T.T.S. Nicotine Dependence Cigarettes With Withdrawal (Primary Dx) 11/18/2023 Orders Only Department of Nicotine Dependence, [place], [place] [address] [place] [phone] Sudha Bernstein M.A., Yesy.I.C.S.W., C.T.T.S. 11/11/2023 11:00 AM ENERGY SYSTEMS ENGINEER Virtual Visit Department of Nicotine Dependence, [facility] in [place], [place] [address] [place] [phone] Sudha Bernstein M.A., L.I.C.S.W., C.T.T.S. Nicotine Dependence Cigarettes With Withdrawal (Primary Dx) 11/11/2023 Orders Only Department of Nicotine Dependence, [place], [place] [address] [place] [phone] Sudha Bernstein M.A., L.I.C.S.W., C.T.T.S. 11/11/2023 Clinical Communication Department of Nicotine Dependence, [facility], in [place], [place] [address] [place] [phone] Sudha Bernstein M.A., L.I.C.S.W., C.T.T.S. [facility] Med Request from Last 3 Months Immunizations Name Administration [...] = 0.6 oz pur e alcohol) [facility] Utilities Answer Date Recorded In the past 12 months has th e [employer], gas, oil, or water [employer] threatened to shut off services in your [...] Assigned at Female 10/06/2023 10:50 AM ENERGY SYSTEMS ENGINEER Gender Identity Female 10/06/2023 10:50 AM ENERGY SYSTEMS ENGINEER Sexual Orientation Straight 10/06/2023 10 :50 AM ENERGY SYSTEMS ENGINEER Last Filed Vital Signs Vital Sign Reading Time Taken Comments Blood Pressure 101/47 12/16/2023 10:52 AM CDT Pulse 77 12/16/2023 10:30 AM CDT Temperature 34.7 ??C (94.5 ??F) 12/09/2023 4:21 PM CD T Respiratory Rate 24 10/08/2023 4:16 PM ENERGY SYSTEMS ENGINEER Oxygen Saturation 100% 12/16/2023 10:30 AM [...] inpatients and all outpatients) 11/19/2023 11:55 AM ENERGY SYSTEMS ENGINEER Ascites CELL COUNT AND DIFFERENTIAL, BF Timed 11/19/2023 10:50 AM ENERGY SYSTEMS ENGINEER Ascites BACTERIAL CULTURE, AEROBIC + SUSC Timed 11/19/2023 10:50 AM ENERGY SYSTEMS ENGINEER Ascites HCV AB SCRN W/REFLEX TO HCV PCR, S Routine 10/06/2023 12:17 PM ENERGY SYSTEMS ENGINEER Alcoholic Cirrhosis Of Liver With Ascites (HCC) COLONOSCOPY Routine 10/10/2015 2:45 PM ENERGY SYSTEMS ENGINEER from Last 3 Months or Most [...] Umana M.D. LAB BLOOD ADD-ON [facility] [address] [place] [address], [facility] DTL [facility] [address] [place] [address] * (ABNORMAL) CBC with Differential, Blood (12/09/2023 [...] CDT Katja Umana M.D. LAB BLOOD ADD-ON [facility] [address] [place] [address], [place] DTL [facility] [address] [place] [address] [facility] [address] [place] [address] * (ABNORMAL) Comprehensive Metabolic Panel (12/09/2023 5:16 PM CDT) [facility] [address] Potassium, S 5.0 3.6 - 5.2 mmol/L [...] M.D. LAB BLOOD ADD-ON Performing Organization Address [facility]/ZIP Co de Phone Number [facility] 200 [place] [address], [facility] 200 [place] [address] * Bacterial Culture, Aerobic + Susceptibility (11/19/2023 10:50 AM ENERGY SYSTEMS ENGINEER) Bacterial Culture, Aerobic + Susc No growth after 5 days of incubation. 11/24/2023 8:27 AM CDT DTL Fluid (Peritoneal Fluid) 11/19/2023 10:50 AM ENERGY SYSTEMS ENGINEER Narrative [facility] - 11/24/2023 8:27 AM CDT Bacterial Culture: Received Bactec aerobic and Bactec anaerobic bottles Felipe Morales M.D. LAB MICROBIOLOGY - GENERAL ORDERABLES Performing Organization Address City/[facility]/ZIP Co de Phone Number [facility] 200 [place] [address], [place] [address] * Cell Count and Differential, Body Fluid (11/19/2023 10:50 AM ENERGY SYSTEMS ENGINEER) Fluid Type Peritoneal /Paracente sis 11/19/2023 12:39 PM ENERGY SYSTEMS ENGINEER DHPM Gross Appearance Serous 11/19/19 12:39 PM ENERGY SYSTEMS ENGINEER [facility] Total Nucleated Cells 201 /mcL 11/19/2023 12:39 PM ENERGY SYSTEMS ENGINEER [facility] Comment: ----REFERENCE VALUE---- Synovial: <150 /mcL Peritoneal: <500 /mcL Pleural: <500 /mcL Pericardial: <500 /mcL ----ADDITIONAL INFORMATION---- This test has been modified from the crop ranch hand's instructions. Its performance characteristics were determined by [facility] in a manner consistent with CLIA requirements. This test has not been cleared or approved by the U.S. Food and Drug Administration. Neutrophils 20 % 11/19/2023 1:42 PM ENERGY SYSTEMS ENGINEER [facility] Comment: ----REFERENCE VALUE---- Synovial: <25% Peritoneal: <25% Pleural: <25% Pericardial: <25% Lymphocytes 16 Synovial <75% % 11/19/2023 1:42 PM ENERGY SYSTEMS ENGINEER DHPM Monocytes/Macropha ges 60 Synovial <70% % 11/19/2023 1:42 PM ENERGY SYSTEMS ENGINEER [facility] Other Cells 4 % 11/19/2023 1:42 PM ENERGY SYSTEMS ENGINEER [facility] Comment: ----REFERENCE VALUE---- The reference range and other method performance specifications have not been established for this bodyfluid. The test result must be integrated into the clinical context for interpretation. Other Cells Are: See Comment 11/19/2023 1:42 PM ENERGY SYSTEMS ENGINEER [facility] Comment:Mesothelial cells Comment See Comment 11/19/2023 1:42 PM ENERGY SYSTEMS ENGINEER [facility] Comment:No blasts or maligna nt cells seen. Reviewed by: Jose 11/19/2023 1:42 PM ENERGY SYSTEMS ENGINEER [facility] Fluid (Peritoneal Fluid) 11/19/2023 10:50 AM ENERGY SYSTEMS ENGINEER Felipe Morales M.D. LAB BODY FLUIDS AND STOOLS ORDERABLES [facility] [address] [place] [address], [facility] [address] [place] [address] * HCV Ab Scrn w/Reflex to HCV PCR, Serum (10/06/2023 12:17 PM ENERGY SYSTEMS ENGINEER) HCV Ab Screen, S Negative Negative 10/06/2023 9:12 PM ENERGY SYSTEMS ENGINEER [facility] Comment:Ysurhy-vj-joxruh rat io is <1.00. Blood (Blood, Venous) 10/06/2023 12:17 PM ENERGY SYSTEMS ENGINEER 10/06/2023 3:57 PM ENERGY SYSTEMS ENGINEER Katja Umana M.D. LAB MICROBIOLOGY - B LOOD ORDERABLES [facility] [address] [place] [address] [facility] [address] [place] [address] * Colonoscopy (10/10/2015 2:45 PM ENERGY SYSTEMS ENGINEER) 10/10/2015 2:45 PM ENERGY SYSTEMS ENGINEER Tanner Calderón GI PROCEDURE ORDE АНДРЕ[facility] [address] [place] [address] from Last 3 Months or Most Recently Relevant to Health Maintenance Care Teams Or Assistant Relationship Specialty Start Date End Date Elsewhere, Pcp PCP - General Family Medicine 12/07/23
--- OUTSIDE RECORDS SUMMARY | 2024-02-05 06:11 | XMS_ITS | Encounter Summary ---
Author Organization [facility] Address [address] [place] [address] Care Team Providers Care Monument Carver Name Role Phone Elsewhere, Pcp Primary Care Provider Unavailabl e Encounter Details Date Type Department Care Team (Latest Contact Info) Description 02/01/2024 Clinical Communication Division of Gastroenterology in [place], [place] [address] [place] [address] Katja Umana M.D. [address] [place] [phone] Social History Tobacco Use Types Packs/Day Years Used Date Smoking Tobacco: Every Day Cigarettes 0.5 41 Started: 02/11/1983 Passive Smoke Exposure: Never Smokeless Tobacco: Never Alcohol Use Standard Drinks/Week Comments Not Currently 0 (1 standard drink = 0.6 oz pur e alcohol) [facility] Utilities Answer Date Recorded In the past 12 months has [facility] [employer], gas, oil, or water [employer] threatened to shut off services in your [...] Date Recorded Employment status Working with temporary [employer] tions 10/15/2023 Housing Stability Answer Date Recorded What is your living situation today? I have a [facility] place to live 10/15/2023 Sex and Gender Information Value Date Recorded Sex Assigned at Female 10/06/2023 10:50 AM PRODUCT SUPPORT REPRESENTATIVE Gender Identity Female 10/06/2023 10:50 AM PRODUCT SUPPORT REPRESENTATIVE Sexual Orientation Straight 10/06/2023 10 :50 AM PRODUCT SUPPORT REPRESENTATIVE documented as of this encounter Plan of Treatment Not on file documented as of this encounter Visit Diagnoses Not on filedocumented in this encounter Additional Health Concerns Assessment Noted Time PHQ-9 Depression Total Score: 3 10/20/19 7:30 AM PRODUCT SUPPORT REPRESENTATIVE documented as of this encounter Care Teams Monument Carver Relationship Specialty Start Date End Date Elsewhere, Pcp PCP - General Family Medicine 12/07/23 documented as of this encounter
--- OUTSIDE RECORDS SUMMARY | 2024-02-05 06:11 | XMS_ITS | Encounter Summary ---
Author Organization [facility] Address [address] [place] [id number] Care Team Providers Care Cosmetic Consultant Name Role Phone Elsewhere, Pcp Primary Care Provider Unavailabl e Reason for Referral * Outpatient (Routine) - Authorized Specialty Diagnoses / Procedures Referred By Contac t Referred To Contact Diagnoses Alcoholic Cirrhosis Of Liver With Ascites (HCC) Ascites Procedures US Paracentesis with Imaging Guidance Katja Umana M.D. [address] [place] [phone] [facility] Referral ID Status Reason Start Date Expiration Date V isits Requested Visits Authorized [id number] Authorized 12/09/2023 12/08/2024 8 8 Reason for Visit * Outpatient (Routine) - Authorized Specialty Diagnoses / Procedures Referred By Dotty oakes Referred To Contact Diagnoses Alcoholic Cirrhosis Of Liver With Ascites (HCC) Ascites Procedures US Paracentesis with Imaging Guidance Katja Umana M.D. [address] [place] [phone] [facility] Referral ID Status Reason Start Date Expiration Date V isits Requested Visits Authorized [id number] Authorized 12/09/2023 12/08/2024 8 8 Encounter Details Date Type Department Care Team (Latest Contact Info) Description 12/16/2023 9:34 AM CDT - 12/16/2023 11:22 AM CDT Hospital Encounter Department of Radiology, [facility], in [place], [place] [address] [place] [address] Katja Umana M.D. [address] [place] [address] Alcoholic Cirrhosis Of Liver With Ascites (HCC); Ascites Discharge Disposition: Home or Self Care Social History Tobacco Use Types Packs/Day Years Used Date Smoking Tobacco: Every Day Cigarettes 0.5 41 Started: 02/11/1983 Passive Smoke Exposure: Never Smokeless Tobacco: Never Alcohol Use Standard Drinks/Week Comments Not Currently 0 (1 standard drink = 0.6 oz pur e alcohol) [facility] Utilities Answer Date Recorded In the past 12 months has th e [employer], gas, oil, or water [employer] threatened to shut off services in your [...] living situation today? I have a [facility] place to live 10/15/2023 Sex and Gender Information Value Date Recorded Sex Assigned at Female 10/06/2023 10:50 AM GEOGRAPHY TEACHER Gender Identity Female 10/06/2023 10:50 AM GEOGRAPHY TEACHER Sexual Orientation Straight 10/06/2023 10 :50 AM GEOGRAPHY TEACHER documented as of this encounter Last [...] be sent through Care Everywhere. * Paracentesis (Venezuelan) documented in this encounter Medications at Time [...] Total Score: 3 10/20/19 24 7:30 AM GEOGRAPHY TEACHER documented as of this encounter Care Teams Cosmetic Consultant Relationship Specialty Start Date End Date Elsewhere, Pcp PCP - General Family Medicine 12/07/23 documented as of this encounter
--- OUTSIDE RECORDS SUMMARY | 2024-02-05 06:11 | XMS_ITS | Clinical Summary ---
Author Organization [facility] Address [place], [place] [address] Care Team Providers Care Heavy Threader Name Role Phone Jared Delgado MD Primary Care Provider [phone] Allergies No known active allergies Medications Medication [...] Travel 4 1:10 PM CDT Anesthesia Event [facility] [address] [place] [address] Gabe Webber MD 4 12:12 PM CDT - 4 12:57 PM CDT Surgery [address] [place] [address] Janet Torres MBBS ESOPHAGOGASTRODUODENOSCOPY 4 8:52 PM CDT - 4 5:25 PM CDT Hospital Encounter [place] [address] [place] [address] s, U Hospitalist Ean Jett, MD Kim [...] - 145 mmol/L 12/06/2023 11:58 AM CDT [facility] Blood BLOOD SPECIMEN / Unknown Butterfly / Unknown 12/06/2023 11:25 AM CDT 12/06/2023 11:50 AM CDT Freddy Moctezuma MD CHEMISTRY Performing Organization Address City/[facility]/ZIP Co de Phone Number [facility] SENDOUT INTERNAL ZIP [phone] [place] [address] * (ABNORMAL) HEMOGLOBIN (12/06/2023 9:05 AM CDT) Only the most recent of6 resultswithin the time period is included. HEMOGLOBIN 7.6(L) 12.0 - 16.0 g/dL 12/06/2023 9:29 AM CDT [facility] MCV 94 80 - 100 fL 12/06/2023 9:29 AM CDT [facility] Blood BLOOD SPECIMEN / Unknown Venipuncture / Unknown 12/06/2023 9:05 AM CDT 12/06/2023 9:24 AM CDT Freddy Moctezuma MD HEMATOLOGY [facility] SENDOUT INTERNAL ZIP [phone] [place] [address] [place] [address] * (ABNORMAL) BASIC METABOLIC PANEL (12/05/2023 1:42 PM CDT) Only the most recent of3 resultswithin the time period is included. SODIUM 122(L) 136 - 145 mmol/L 12/05/2023 2:37 PM CDT [facility] POTASSIUM 4.6 3.5 - 5.1 mmol/L 12/05/2023 2:37 PM T [facility] CHLORIDE 92(L) 98 - 107 mmol/L 12/05/2023 2:37 PM T [facility] CO2,TOTAL 20(L) 22 - 29 mmol/L 12/05/2023 2:37 PM T [facility] ANION GAP 10 5 - 18 12/05/2023 2:37 PM T [facility] GLUCOSE 97 70 - 99 mg/dL 12/05/2023 2:37 PM T [facility] CALCIUM 7.8(L) 8.8 - 10.2 mg/dL 12/05/2023 2:37 PM T [facility] BUN 11 8 - 23 mg/dL 12/05/2023 2:37 PM T [facility] CREATININE 0.50 0.50 - 0.90 mg/dL 12/05/2023 2:37 PM T [facility] BUN/CREAT RATIO 22(H) 10 - 20 2:37 PM T [facility] eGFR >90 >90 mL/min/1.7 3m2 12/05/2023 2:37 PM T [facility] Comment:As of 2021, eG [...] 2:10 PM CDT Freddy Moctezuma MD CHEMISTRY [facility] SENDOUT INTERNAL ZIP [phone] [place] [address] * LC HEP A AB, TOTAL (12/04/2023 9:21 AM CDT) [facility] Hep A Ab Tot Negative Negative 12/08/2023 11:10 AM CDT [facility] ([facility]) Comment: Comment: The HAV total antibody assay detects both IgG and IgM but does not differentiate between them. A negative result suggests susceptibility to infection. A positive result could be due to vaccination, previously resolved infection or active infection. Testing for HAV IgM should be performed if active HAV infection is suspected. [facility] offers profiles that will automatically reflex positive HAV total antibody results to IgM (e.g., panel #[id number] HAV Antibody w/ Rfx). Blood BLOOD SPECIMEN / Unknown Venipuncture / Unknown 12/04/2023 9:21 AM CDT 12/04/2023 9:29 AM CDT Narrative [facility] ([facility]) - 12/08/2023 11:10 AM CDT Performed at: ??01 - [address] ??[id number] Marketing Analytics Manager: Carlos Piña MD, Phone: ??[phone] Janet DELGADO LABORATORY [facility] ([facility]) [address] [place] [address], * ANTI HBS QUANT AHS (12/04/2023 9:21 AM CDT) [facility] ANTI HBS QUANT <3.50 mIU/mL 12/04/2023 3:36 PM CDT [facility] Blood BLOOD SPECIMEN / Unknown Venipuncture / Unknown 12/04/2023 9:21 AM CDT 12/04/2023 9:29 AM CDT Narrative [facility] - 12/04/2023 3:36 PM CDT [...] retesting. Janet JULIOBS SEND OUTS [facility] [address] [place] [address], * (ABNORMAL) PROTIME-INR (12/04/2023 9:21 AM CDT) INR 1.7(H) <1.3 12/04/2023 9:58 AM CDT [facility] PROTIME 18.5(H) 10.3 - 12.3 sec 12/04/2023 9:58 AM CDT [facility] Blood BLOOD SPECIMEN / Unknown Venipuncture / Unknown 12/04/2023 9:21 AM CDT 12/04/2023 9:30 AM CDT [facility] - 12/04/2023 9:58 AM [...] is on UFH. Felipe Alvarez MD HEMATOLOGY [facility] SENDOUT INTERNAL ZIP [phone] [place] [address] * (ABNORMAL) AMMONIA (12/04/2023 9:21 AM CDT) AMMONIA 129(HH) 16 - 60 umol/L 12/04/2023 10:05 AM CDT [facility] Blood BLOOD SPECIMEN / Unknown Venipuncture / Unknown 12/04/2023 9:21 AM CDT 12/04/2023 9:28 AM CDT Narrative [facility] - 12/04/2023 10:05 AM CDT 1. ??Sulfasalazine and its metabolite Sulfapyridine at therapeutic concentrations may lead to falsely low results. 2. ??Temozolomide and its metabolite MTIC may lead to falsely elevated results, and its metabolite AIC may lead to falsely low results. Felipe Alvarez MD CHEMISTRY [facility] SENDOUT INTERNAL ZIP [phone] [place] [address] * US PARACENTESIS W IMAGING (12/03/2023 4:51 PM CDT) Anatomical Region Laterality Modality CHEST, Lung, THORAX Ultrasound 12/03/2023 4:51 PM CDT Impressions 12/03/2023 4:56 PM CDT 1. ??Status post ultrasound-guided paracentesis. Reference CPT Code: 60428 Narrative 12/03/2023 4:56 PM CDT For Patients: As a result of the Cures Act, medical imaging exams and procedure reports are released immediately into your electronic medical record. You may view this report before your referring provider. If you have questions, please contact your health care provider. EXAM: 1. PARACENTESIS 2. ULTRASOUND GUIDANCE LOCATION: [facility] MED[facility]AG[facility] DATE: 12/03/2023 INDICATION: Ascites. PROCEDURE: Informed consent obtained. Time out performed. The abdomen was prepped and draped in a sterile fashion. 10 mL of 1% lidocaine was infused into local soft tissues. A 5 Telugu catheter system was introduced into the abdominal [...] EXAM: 1. PARACENTESIS 2. ULTRASOUND GUIDANCE LOCATION: [facility] DATE: 12/03/2023 INDICATION: Ascites. PROCEDURE: Informed consent obtained. Time out performed. The abdomen wasprepped and draped in a sterile fashion. 10 mL of 1% lidocaine was infusedinto local soft tissues. A 5 Telugu catheter system was introduced intothe abdominal ascites under ultrasound guidance. 7.1 liters of clear fluid were removed and sent to lab if requested. Patient tolerated procedure well. Ultrasound imaging was obtained and placed in the patient's permanentmedical record. IMPRESSION: 1. Status post ultrasound-guided paracentesis. Reference CPT Code: 59920 Janet DELGADO US * Body Fluid Culture and Stain (12/03/2023 4:20 PM CDT) CULTURE No Growth. 12/08/2023 7:52 AM CDT [facility] GRAM STAIN 2+ PMNs 12/08/2023 7:52 AM CDT [facility] GRAM STAIN No organisms seen 12/08/2023 7:52 AM CDT [facility] GRAM STAIN No Epithelial cells 12/08/2023 7:52 AM CDT [facility] GRAM STAIN No RBCs 12/08/2023 7:52 AM CDT [facility] GRAM STAIN Gram stain performed by [place], [place] 12/08/2023 7:52 AM CDT [facility] Body Fluid PERITONEAL FLUID SPECIMEN / Unknown Non-Blood / Unknown 12/03/2023 4:20 PM CDT 12/03/2023 4:40 PM CDT Janet DELGADO MICROBIOLOGY [facility] [address] [place] [address], [facility] SENDOUT INTERNAL ZIP [phone] [place] [address] * Body Fluid Cell Count and Differential (12/03/2023 4:20 PM CDT) BODY FLUID SOURCE Ascitic Fluid 12/03/2023 7:27 PM CDT [facility] BODY FLUID COLOR Yellow 12/03/2023 7:27 PM CDT [facility] BODY FLUID CLARITY Clear 12/03/2023 7:27 PM CDT [facility] TOTAL NUCLEATED CELLS, BF 85 /cu mm 12/03/2023 7:27 PM CDT [facility] RED BLOOD COUNT, BODY FLUID <2,000 /cu mm 12/03/2023 7:27 PM CDT [facility] % NEUTROPHILS, BODY FLUID 17 % 12/03/2023 7:27 PM CDT [facility] % LYMPHOCYTES, BODY FLUID 25 % 12/03/2023 7:27 PM CDT [facility] % MONO/MACRO, BODY FLUID 58 % 12/03/2023 7:27 PM CDT [facility] Body Fluid PERITONEAL FLUID SPECIMEN / Unknown Non-Blood / Unknown 12/03/2023 4:20 PM CDT 12/03/2023 4:40 PM CDT [facility] - 12/03/2023 7:27 PM CDT TO ORDER BODY FLUID CULTURES, USE; [id number] BODY FLUID CULTURE, STAIN Carissajorden Torres SANDY BODY FLUID [facility] SENDOUT INTERNAL ZIP [id number] [place] [address] * Protein, Body Fluid (12/03/2023 4:20 PM CDT) SPECIMEN SOURCE Peritoneal fluid 12/03/2023 5:26 PM CDT [facility] PROTEIN,BODY FLUID 0.6 g/dL 12/03/2023 5:26 PM CDT [facility] Comment:No Reference Range D efined. Body Fluid PERITONEAL FLUID SPECIMEN / Unknown Non-Blood / Unknown 12/03/2023 4:20 PM CDT 12/03/2023 4:40 PM CDT [facility] - 12/03/2023 5:26 PM [...] Test developed & performance characteristics determined by [facility] [place], [place] consistent with CLIA requirements. Not cleared or approved by [place] FDA. Janet Torres NORI BODY FLUID [facility] SENDOUT INTERNAL ZIP [phone] [place] [address] * Albumin, Body Fluid (12/03/2023 4:20 PM CDT) SPECIMEN SOURCE Peritoneal fluid 12/03/2023 5:26 PM CDT [facility] ALBUMIN,BODY FLUID 0.3 g/dL 12/03/2023 5:26 PM CDT [facility] Comment:No Reference Range D efined. Body Fluid PERITONEAL FLUID SPECIMEN / Unknown Non-Blood / Unknown 12/03/2023 4:20 PM CDT 12/03/2023 4:40 PM CDT [facility] - 12/03/2023 5:26 PM CDT Peritoneal: ??SAAG >/= 1.1 g/dL indicates portal Hypertension. Pleural: ? SEAG > 1.2 g/dL is consistent with a transudative process and may ?be more accurate in patients receiving diuretic therapy. Test developed & performance characteristics determined by [employer] [facility], [place], [place] consistent with CLIA requirements. Not cleared or approved by [place] FDA. Janet JULIO BODY FLUID [facility] SENDOUT INTERNAL ZIP [phone] [place] [address] * FERRITIN (12/03/2023 2:47 PM CDT) FERRITIN 131.0 15.0 - 150.0 ng/mL 12/03/2023 9:31 PM CDT [facility] Blood BLOOD SPECIMEN / Unknown Venipuncture / Unknown 12/03/2023 2:47 PM CDT 12/03/2023 2:51 PM CDT Janet DELGADO CHEMISTRY [facility] [address] [place] [address], * PATH TISSUE EXAM (12/03/2023 1:23 PM CDT) Case Report Pathology Report ?Case: [id number] ? Authorizing Provider: ??Janet Torres, SANDY ?Collected: ? 12/03/2023 1323 ? Ordering Location: ? [facility] ?Received: ?12/03/2023 1527 ? Pathologist: ? Marco Tijerina MD ? Specimens: ?? A) - Duodenal Ulcer ? B) - Gastric Biopsy, random gastric ? 4 1:[address] [facility] Final Diagnosis A) DUODENUM, ULCER, BIOPSY: [...] (Helicobacter immunohistochemistry negative) 4 1:56 PM CDT [facility] Comment B. Mild chronic inflammation in the stomach in the absence of Helicobacter often remains unexplained, but it could reflect prior or treated Helicobacter infection. The likelihood of histologically undetected Helicobacter is quite low in our opinion. 4 1:[address] [facility] Clinical Information Ms. Redmond is a 63 y.o. with hematemesis and iron deficiency anemia secondary to chronic blood loss. Upper GI endoscopy shows grade 1 esophageal varices, diffuse mild erythema throughout the stomach, and a superficial duodenal ulcer. 4 1:[address] [facility] Gross Description A) Received in formalin [...] PM 4 1:[address] [facility] Microscopic Description The final diagnosis is based on microscopic examination of appropriate sections of all specimens. 4 1:[address] [facility] Additional Information Interpreted at [facility], Central Laboratory - [address], [place] [address] 1:56 PM CDT [facility] Biopsy (Duodenal Ulcer) 12/03/2023 1:23 PM CDT 12/03/2023 3:27 PM CDT Biopsy specimen (specimen) GASTRIC BIOPSY SPECIMEN / Unknown 12/03/2023 1:29 PM CDT 12/03/2023 3:27 PM CDT Janet DELGADO PATHOLOGY/CYTOLOGY [facility] [address] [place] [address], * ENDOSCOPY (12/03/2023 12:57 PM CDT) 12/03/2023 [...] candidate for conscious sedation. The endoscope [id number] was introduced through the mouth, and advanced [...] - 11.0 thou/cu mm 12/03/2023 5:12 AM [facility] RED BLOOD COUNT 2.21(L) 4.00 - 5.20 mil/cu mm 12/03/2023 5:12 AM [facility] HEMOGLOBIN 7.3(L) 12.0 - 16.0 g/dL 12/03/2023 5:12 AM [facility] HEMATOCRIT 21.5(L) 33.0 - 51.0 % 12/03/2023 5:12 AM [facility] MCV 97 80 - 100 fL 12/03/2023 5:12 AM [facility] MCH 33.0 26.0 - 34.0 pg 12/03/2023 5:12 AM [facility] MCHC 34.0 32.0 - 36.0 g/dL 12/03/2023 5:12 AM [facility] RDW 17.2(H) 11.5 - 15.5 % 12/03/2023 5:12 AM [facility] PLATELET COUNT 167 140 - 440 thou/cu mm 12/03/2023 5:12 AM [facility] MPV 8.9 6.5 - 11.0 fL 12/03/2023 5:12 AM [facility] NRBC 0.0 % 12/03/2023 5:12 AM [facility] ABS NRBC 0.0 thou /cu mm 12/03/2023 5:12 AM T [facility] % NEUT 65.0 % 12/03/2023 5:12 AM T [facility] % LYMPH 25.6 % 12/03/2023 5:12 AM T [facility] % MONO 7.5 % 12/03/2023 5:12 AM T [facility] % EOS 1.0 % 12/03/2023 5:12 AM T [facility] % BASO 0.3 % 12/03/2023 5:12 AM CDT [facility] % IMMATURE GRAN (METAS,MYELOS,ID OS) 0.6 % 12/03/2023 5:12 AM CDT [facility] ABSOLUTE NEUTROPHILS 5.7 1.7 - 7.0 thou/cu mm 12/03/2023 5:12 AM CDT [facility] ABSOLUTE LYMPHOCYTES 2.2 0.9 - 2.9 thou/cu mm 12/03/2023 5:12 AM CDT [facility] ABSOLUTE MONOCYTES 0.7 <0.9 thou/cu mm 12/03/2023 5:12 AM CDT [facility] ABSOLUTE EOSINOPHILS 0.1 <0.5 thou/cu mm 12/03/2023 5:12 AM CDT [facility] ABSOLUTE BASOPHILS 0.0 <0.3 thou/cu mm 12/03/2023 5:12 AM CDT [facility] ABSOLUTE IMMATURE GRANULOCYTES(MET ,MYELOS,PROS) 0.1 <0.3 thou/cu mm 12/03/2023 5:12 AM CDT [facility] Blood BLOOD SPECIMEN / Unknown Butterfly / Unknown 12/03/2023 3:34 AM CDT 12/03/2023 3:37 AM CDT Adama Jett MD HEMATOLOGY [facility] SENDOUT INTERNAL ZIP [phone] [place] [address] * (ABNORMAL) RED CELL MORPHOLOGY (12/03/2023 3:34 AM CDT) POLYCHROMASIA Slight 12/03/2023 5:12 AM CDT [facility] SCHISTOCYTES Few 12/03/2023 5:12 AM CDT [facility] RBC COMMENT Present(A) RBC morphology appears normal, RBC morphology within normal limits for newborns. 12/03/2023 5:12 AM CDT [facility] Blood BLOOD SPECIMEN / Unknown Butterfly / Unknown 12/03/2023 3:34 AM CDT 12/03/2023 3:37 AM CDT Adama Jett MD HEMATOLOGY [facility] SENDOUT INTERNAL ZIP [phone] [place] [address] * PLATELET ESTIMATE (12/03/2023 3:34 AM CDT) PLATELET ESTIMATE Adequate Adequate, No estimate 12/03/2023 5:12 AM CDT [facility] Blood BLOOD SPECIMEN / Unknown Butterfly / Unknown 12/03/2023 3:34 AM CDT 12/03/2023 3:37 AM CDT Adama Jett MD HEMATOLOGY [facility] SENDOUT INTERNAL ZIP [phone] [place] [address] * (ABNORMAL) IRON PLUS IRON BINDING CAP (12/03/2023 3:34 AM CDT) IRON 49 37 - 145 ug/dL 12/03/2023 3:46 PM CDT [facility] UIBC (UNSATURATED) 67(L) 112 - 347 ug/dL 12/03/2023 3:46 PM CDT [facility] IRON BINDING CAPACITY 116(L) 250 - 400 ug/dL 12/03/2023 3:46 PM CDT [facility] IRON,% SATURATION 42 14 - 50 % 12/03/2023 3:46 PM CDT [facility] Blood BLOOD SPECIMEN / Unknown Butterfly / Unknown 12/03/2023 3:34 AM CDT 12/03/2023 3:37 AM CDT Janet DELGADO CHEMISTRY [facility] SENDOUT INTERNAL ZIP [phone] [place] [address] * (ABNORMAL) MAGNESIUM (12/03/2023 3:34 AM CDT) MAGNESIUM 2.5(H) 1.6 - 2.4 mg/dL 12/03/2023 3:57 AM CDT [facility] Blood BLOOD SPECIMEN / Unknown Butterfly / Unknown 12/03/2023 3:34 AM CDT 12/03/2023 3:37 AM CDT Adama Jett MD CHEMISTRY [facility] SENDOUT INTERNAL ZIP [phone] [place] [address] * SCAN-CARDIAC STRIP (12/02/2023 11:58 PM CDT) Scanner OTHER * (ABNORMAL) HEPATIC FUNCTION PANEL (12/02/2023 10:56 PM CDT) ALBUMIN 2.8(L) 4.0 - 4.9 g/dL 12/02/2023 11:22 PM CDT [facility] PROTEIN,TOTAL 6.5 6.0 - 8.0 g/dL 12/02/2023 11:22 PM CDT [facility] BILIRUBIN,TOTAL 3.0(H) 0.0 - 1.2 mg/dL 12/02/2023 11:22 PM CDT [facility] BILIRUBIN,DIRECT 1.3(H) 0.0 - 0.3 mg/dL 12/02/2023 11:22 PM CDT [facility] BILIRUBIN,INDIRE CT 1.7(H) 0.2 - 0.8 mg/dL 12/02/2023 11:22 PM CDT [facility] ALK PHOSPHATASE 114(H) 35 - 104 IU/L 12/02/2023 11:22 PM CDT [facility] ALT (SGPT) 31 10 - 35 IU/L 12/02/2023 11:22 PM CDT [facility] AST (SGOT) 87(H) 10 - 35 IU/L 12/02/2023 11:22 PM CDT [facility] Blood BLOOD SPECIMEN / Unknown Venipuncture / Unknown 12/02/2023 10:56 PM CDT 12/02/2023 11:01 PM CDT Adama Jett MD CHEMISTRY [facility] SENDOUT [place]NAL [address] [phone] [place] [address] from Last 3 Months Advance Directives * Full Code (Latest Code Status on File) Date Activated Date Inactivated Comments 12/02/2023 9:46 PM 12/06/2023 7:35 PM Question Answer Comments Code Status Discussion: Reviewed Preferences Care Teams Heavy Threader Relationship Specialty Start Date End Date Jared Delgado MD [address] [place] [address] PCP - General Family Practice 12/04/23
--- OUTSIDE RECORDS SUMMARY | 2024-02-05 06:11 | XMS_ITS | Encounter Summary ---
Author Organization [facility] Address [address] [place] [address] Care Team Providers Care Coarse Wire Drawer Name Role Phone Elsewhere, Pcp Primary Care Provider Unavailabl e Reason for Visit * Reason Onset Date Comments Scheduling 12/20/2023 Encounter Details Date Type Department Care Team (Latest Contact Info) Description 12/20/2023 Clinical Communication Division of Gastroenterology in [place], [place] [address] [place] [phone] Katja Umana M.D. [address] [place] [phone] Scheduling Social History Tobacco Use Types Packs/Day Years Used Date Smoking Tobacco: Every Day Cigarettes 0.5 41 Started: 02/11/1983 Passive Smoke Exposure: Never Smokeless Tobacco: Never Alcohol Use Standard Drinks/Week Comments Not Currently 0 (1 standard drink = 0.6 oz pur e alcohol) [facility] Utilities Answer Date Recorded In the past 12 months has e [employer], gas, oil, or water [employer] threatened to shut off services in your [...] Date Recorded Employment status Working with temporary [employer] 10/15/2023 Housing Stability Answer Date Recorded What is your living situation today? I have a [facility] place to live 10/15/2023 Sex and Gender Information Value Date Recorded Sex Assigned at Female 10/06/2023 10:50 AM TRUST MANAGER Gender Identity Female 10/06/2023 10:50 AM TRUST MANAGER Sexual Orientation Straight 10/06/2023 10 :50 AM TRUST MANAGER documented as of this encounter Plan of Treatment Not on file documented as of this encounter Visit Diagnoses Not on filedocumented in this encounter Additional Health Concerns Assessment Noted Time PHQ-9 Depression Total Score: 3 10/20/19 7:30 AM TRUST MANAGER documented as of this encounter Care Teams Coarse Wire Drawer Relationship Specialty Start Date End Date Elsewhere, Pcp PCP - General Family Medicine 12/07/23 documented as of this encounter
--- OUTSIDE RECORDS SUMMARY | 2024-02-05 06:11 | XMS_ITS | Encounter Summary ---
Author Organization [facility] Address [address] [place] [address] Care Team Providers Care Boom Man Name Role Phone Elsewhere, Pcp Primary Care Provider Unavailabl e Encounter Details Date Type Department Care Team (Latest Contact Info) Description 12/21/2023 Clinical Communication Brent motta [facility] in [place], [place] [address] [place] [address] Katja Umana M.D. [address] [place] [address] Social History Tobacco Use Types Packs/Day Years Used Date Smoking Tobacco: Every Day Cigarettes 0.5 41 Started: 02/11/1983 Passive Smoke Exposure: Never Smokeless Tobacco: Never Alcohol Use Standard Drinks/Week Comments Not Currently 0 (1 standard drink = 0.6 oz pur e alcohol) [facility] Utilities Answer Date Recorded In the past 12 months has e [employer], gas, oil, or water [employer] threatened to shut off services in your [...] Date Recorded Employment status Working with temporary [employer] 10/15/2023 Housing Stability Answer Date Recorded What is your living situation today? I have a [facility] place to live 10/15/2023 Sex and Gender Information Value Date Recorded Sex Assigned at Female 10/06/2023 10:50 AM LINING INSERTER Gender Identity Female 10/06/2023 10:50 AM LINING INSERTER Sexual Orientation Straight 10/06/2023 10 :50 AM LINING INSERTER documented as of this encounter Miscellaneous Notes [...] Depression Total Score: 3 10/20/19 7:30 AM LINING INSERTER documented as of this encounter Care Teams Boom Man Relationship Specialty Start Date End Date Elsewhere, Pcp PCP - General Family Medicine 12/07/23 documented as of this encounter
--- OUTSIDE RECORDS SUMMARY | 2024-02-05 06:11 | XMS_ITS | Encounter Summary ---
Author Organization [facility] Address [address] [place] [address] Care Team Providers Care Medical Affairs Director Name Role Phone Elsewhere, Pcp Primary Care Provider Unavailabl e Reason for Visit * Reason Onset Date Comments Phone Contact 12/29/2023 Friends and fami ly authorization Encounter Details Date Type Department Care Team (Latest Contact Info) Description 12/29/2023 Clinical Communication Brent motta [facility] in [place], [place] [address] [place] [address] Katja Umana M.D. [address] [place] [address] Phone Contact (Friends and family authorization ) Social History Tobacco Use Types Packs/Day Years Used Date Smoking Tobacco: Every Day Cigarettes 0.5 41 Started: 02/11/1983 Passive Smoke Exposure: Never Smokeless Tobacco: Never Alcohol Use Standard Drinks/Week Comments Not Currently 0 (1 standard drink = 0.6 oz pur e alcohol) [facility] Utilities Answer Date Recorded In the past 12 months has e [facility], gas, oil, or water [employer] threatened to shut off services in [...] Date Recorded Employment status Working with temporary [employer] 10/15/2023 Housing Stability Answer Date Recorded What is your living situation today? I have a [facility] place to live 10/15/2023 Sex and Gender Information Value Date Recorded Sex Assigned at Female 10/06/2023 10:50 AM AWS SOFTWARE DEVELOPMENT ENGINEER Gender Identity Female 10/06/2023 10:50 AM AWS SOFTWARE DEVELOPMENT ENGINEER Sexual Orientation Straight 10/06/2023 10 :50 AM AWS SOFTWARE DEVELOPMENT ENGINEER documented as of this encounter Plan of Treatment Not on file documented as of this encounter Visit Diagnoses Not on filedocumented in this encounter Additional Health Concerns Assessment Noted Time PHQ-9 Depression Total Score: 3 10/20/19 7:30 AM AWS SOFTWARE DEVELOPMENT ENGINEER documented as of this encounter Care Teams Medical Affairs Director Relationship Specialty Start Date End Date Elsewhere, Pcp PCP - General Family Medicine 12/07/23 documented as of this encounter
--- OUTSIDE RECORDS SUMMARY | 2024-02-05 06:11 | XMS_ITS | Encounter Summary ---
Author Organization [facility] Address [address] [place] [address] Care Team Providers Care Farm Mortgage Agent Name Role Phone Elsewhere, Pcp Primary Care Provider Unavailabl e Reason for Referral * Outpatient (Routine) - Authorized Specialty Diagnoses / Procedures Referred By Contac t Referred To Contact Nutrition Diagnoses Alcoholic Cirrhosis Of Liver With Ascites (HCC) Sarcopenia Katja Umana M.D. 200 [place] [address] [facility] Referral ID Status Reason Start Date Expiration Date V isits Requested Visits Authorized [id number] Authorized 12/09/2023 06/09/2025 1 1 * Outpatient (Routine) - Authorized Specialty Diagnoses / Procedures Referred By Contac t Referred To Contact Diagnoses Alcoholic Cirrhosis Of Liver With Ascites (HCC) Ascites Procedures US Paracentesis with Imaging Guidance Katja Umana M.D. 200 [place] [address] [facility] Referral ID Status Reason Start Date Expiration Date V isits Requested Visits Authorized [id number] Authorized 12/09/2023 12/08/2024 8 8 Reason for Visit * Outpatient (Routine) - Closed Specialty Diagnoses / Procedures Referred By Contact Referred To Contact Gastroenterology and Hepatology Katja Umana M.D. 200 [place] [address] [facility] Referral ID Status Reason Start Date Expiration Date Visits Re quested Visits Authorized [id number] Closed 10/28/2023 04/28/2025 1 1 Encounter Details Date Type Department Care Team (Latest Contact Info) Description 12/09/2023 4:30 PM CDT Office Visit Brent motta [facility] in [place], [place] [address] [place] [phone] Katja Umana M.D. [address] [place] [phone] Rose Palacios M.D. [address] [place] [phone] Alcoholic Cirrhosis Of Liver With Ascites (HCC) [...] In the past 12 months has e [employer], gas, oil, or water [employer] threatened to shut off services in your [...] Sex Assigned at Female 10/06/2023 10:50 AM SAFETY CONSULTANT Gender Identity Female 10/06/2023 10:50 AM SAFETY CONSULTANT Sexual Orientation Straight 10/06/2023 10 :50 AM SAFETY CONSULTANT documented as of this encounter Last Filed [...] Mrs. Redmond was hospitalized locally from 12/02/2023-12/06/2023 ([facility]) for progressive fatigue and decreased exercise [...] last colonoscopy was performed in 2019 in [place]. I am not able to see this report. She is recommended to follow-up with her PCP for completing surveillance colonoscopy. If she is not able tocomplete this locally, then we can arrange for this to be done at [facility]. All questions were answered. This plan will be discussed with Dr. Morales. BILLING: I personally spent over half of a total 35 minutes in counseling and discussion with the patient and coordination of care as described above. Signed: Katja Umana M.D. Gastroenterology and Hepatology Fellow Pager [phone] documented in this encounter Plan of Treatment [...] CDT Katja Umana M.D. LAB BLOOD ADD-ON [facility] [address] [place] [address], [facility] 200 [place] [address] * (ABNORMAL) Comprehensive Metabolic Panel (12/09/2023 5:16 [...] CDT Katja Umana M.D. LAB BLOOD ADD-ON [facility] [address] [place] [address], [facility] [address] [place] [address] * (ABNORMAL) CBC with Differential, Blood (12/09/2023 [...] CDT Katja Umana M.D. LAB BLOOD ADD-ON [facility] [address] [place] [address], [facility] DTL [facility] [address] [place] [address] DHPM [facility] 200 [place] [address] documented in this encounter Visit Diagnoses Diagnosis Alcoholic Cirrhosis Of Liver With Ascites (HCC)- Primary Ascites Sarcopenia Alcoholic Cirrhosis Of Liver With Ascites (HCC) Ascites documented in this encounter Additional Health Concerns Assessment Noted Time PHQ-9 Depression Total Score: 3 10/20/19 24 7:30 AM SAFETY CONSULTANT documented as of this encounter Care Teams Farm Mortgage Agent Relationship Specialty Start Date End Date Elsewhere, Pcp PCP - General Family Medicine 12/07/23 documented as of this encounter
--- OUTSIDE RECORDS SUMMARY | 2024-02-05 06:11 | XMS_ITS | Encounter Summary ---
Author Organization [facility] Address [address] [place] [address] Care Team Providers Care Mineral Technologist Name Role Phone Elsewhere, Pcp Primary Care Provider Unavailabl e Reason for Visit * Reason Comments Nicotine Dependence * Outpatient (Routine) - Closed Specialty Diagnoses / Procedures Referred By Contac t Referred To Contact Nicotine Dependence Sudha Bernstein M.A., Yesy.I.C.S.W., C.T.T.S. [address] [place] [phone] [facility] Referral ID Status Reason Start Date Expiration Date Visits Re quested Visits Authorized [id number] Closed 11/18/2023 05/19/2025 1 1 Encounter Details Date Type Department Care Team (Late st Contact Info) Description 12/20/2023 2:00 PM CDT Virtual Visit Department of Nicotine Dependence, [facility], in [place], [place] [address] [place] [phone] Sudha Bernstein M.A., Yesy.I.C.S.W., C.T.T.S. [address] [place] [phone] Nicotine Dependence Cigarettes With Withdrawal (Primary Dx) Social History Tobacco Use Types Packs/Day Years Used Date Smoking Tobacco: Every Day Cigarettes 0.5 41 Started: 02/11/1983 Passive Smoke Exposure: Never Smokeless Tobacco: Never Alcohol Use Standard Drinks/Week Comments Not Currently 0 (1 standard drink = 0.6 oz pur e alcohol) [facility] Utilities Answer Date Recorded In the past 12 months has [employer], gas, oil, or water [employer] threatened to shut off services in your [...] Date Recorded Employment status Working with temporary [employer] 10/15/2023 Housing Stability Answer Date Recorded What is your living situation today? I have a [facility] place to live 10/15/2023 Sex and Gender Information Value Date Recorded Sex Assigned at Female 10/06/2023 10:50 AM SENIOR MARKET INTELLIGENCE CONSULTANT Gender Identity Female 10/06/2023 10:50 AM SENIOR MARKET INTELLIGENCE CONSULTANT Sexual Orientation Straight 10/06/2023 10 :50 AM SENIOR MARKET INTELLIGENCE CONSULTANT documented as of this encounter Progress Notes * Sudha Bernstein M.A., L.I.C.S.W., M.S.W. - 12/20/2023 2:00 PM CDT OBJECTIVE Monique Yvonne Norgaard attended a phone follow-up appointment regarding her tobacco use. ASSESSMENT [facility] staff contacted the patient as a follow [...] patient was asked if she would like [facility] staff to contact her in the future [...] Score: 3 10/20/19 24 7:30 AM SENIOR MARKET INTELLIGENCE CONSULTANT documented as of this encounter Care Teams Mineral Technologist Relationship Specialty Start Date End Date Elsewhere, Pcp PCP - General Family Medicine 12/07/23 documented as of this encounter
--- OUTSIDE RECORDS SUMMARY | 2024-02-05 06:12 | XMS_ITS | Encounter Summary ---
Author Organization [facility] Address [address] [place] [address] Care Team Providers Care Microfilm Equipment Inspector Name Role Phone Unavailable Primary Care Provider Unavailabl e Reason for Visit * Reason Comments Nicotine Dependence * Outpatient (Routine) - Closed Specialty Diagnoses / Procedures Referred By Contac t Referred To Contact Pulmonary Medicine / Nicotine Dependence Diagnoses Nicotine Dependence Cigarettes Romana Diane M.D., Ph.D. [address] [place] [phone] [facility] Referral ID Status Reason Start Date Expiration Date Visits Re quested Visits Authorized [id number] Closed 10/20/2023 04/20/2025 1 1 Encounter Details Date Type Department Care Team (Late st Contact Info) Description 10/28/2023 11:00 AM ELEMENTARY ART TEACHER Virtual Visit Department of Nicotine Dependence, [facility], in [place], [place] [address] [place] [phone] Romana Diane M.D., Ph.D. [address] [place] [phone] Sudha Bernstein M.A., L.I.C.S.W., C.T.T.S. [address] [place] [phone] Nicotine Dependence Cigarettes Social History Tobacco Use [...] Assigned at Female 10/06/2023 10:50 AM ELEMENTARY ART TEACHER Gender Identity Female 10/06/2023 10:50 AM ELEMENTARY ART TEACHER Sexual Orientation Straight 10/06/2023 10 :50 AM ELEMENTARY ART TEACHER documented as of this encounter Consult Notes [...] this medication being metabolized through the liver [facility] staff would need to discuss the patient's [...] in two weeks. Patient was provided with [facility] educational materials electronically. . Patient is ready to learn, no apparant barriers to learning were identified. Patient understands and agrees with plan. 30 minutes of our visit was spent on tobacco use disorder counseling. Sudha Bernstein M.A., Sony, M.S.W. 10/28/2023 11:33 AM ELEMENTARY ART TEACHER ENTARY ART TEACHER documented in this encounter Plan of Treatment Not on file documented as of this encounter Visit Diagnoses Diagnosis Nicotine Dependence Cigarettes documented in this encounter Additional Health Concerns Assessment Noted Time PHQ-9 Depression Total Score: 3 10/20/19 24 7:30 AM ELEMENTARY ART TEACHER documented as of this encounter
--- OUTSIDE RECORDS SUMMARY | 2024-02-05 06:12 | XMS_ITS | Encounter Summary ---
Author Organization [facility] Address [address] [place] [address] Care Team Providers Care Line Lead Name Role Phone Unavailable Primary Care Provider Unavailabl e Reason for Visit * Reason Onset Date Comments NDC Med Request 11/11/2023 Encounter Details Date Type Department Care Team (Latest Contact Info) Description 11/11/2023 Clinical Communication Department of Nicotine Dependence, [facility], in [place], [place] [address] [place] [phone] Sudha Bernstein M.A., L.I.C.S.W., C.T.T.S. [address] [place] [phone] NDC Med Request Social History Tobacco Use Types Packs/Day Years Used Date Smoking Tobacco: Every Day Cigarettes 0.5 40 Smokeless Tobacco: Never Alcohol Use Standard Drinks/Week Comments Not Currently 0 (1 standard drink = 0.6 oz pur e alcohol) [facility] Utilities Answer Date Recorded In the past 12 months has [employer], gas, oil, or water [employer] threatened to shut off services in your [...] Date Recorded Employment status Working with temporary [employer] 10/15/2023 Housing Stability Answer Date Recorded What is your living situation today? I have a [facility] place to live 10/15/2023 Sex and Gender Information Value Date Recorded Sex Assigned at Female 10/06/2023 10:50 AM FLOOR WORKER Gender Identity Female 10/06/2023 10:50 AM FLOOR WORKER Sexual Orientation Straight 10/06/2023 10 :50 AM FLOOR WORKER documented as of this encounter Miscellaneous Notes * Telephone Encounter - Sudha Bernstein M.A., L.I.C.S.W., M.S.W. - 11/11/2023 11:39 AM CST Sandra, this patient is interested in having a prescription sent to [facility] in [place], [place] for the following if appropriate after [...] if you have any questions. Thank you. R WORKER documented in this encounter Plan of Treatment Not on file documented as of this encounter Visit Diagnoses Not on filedocumented in this encounter Additional Health Concerns Assessment Noted Time PHQ-9 Depression Total Score: 3 10/20/19 24 7:30 AM FLOOR WORKER documented as of this encounter
--- OUTSIDE RECORDS SUMMARY | 2024-02-05 06:12 | XMS_ITS | Encounter Summary ---
Author Organization [facility] Address [address] [place] [address] Care Team Providers Care Restaurant Greeter Name Role Phone Elsewhere, Pcp Primary Care Provider Unavailabl e Reason for Visit * Reason Comments Nicotine Dependence * Outpatient (Routine) - Closed Specialty Diagnoses / Procedures Referred By Contac t Referred To Contact Nicotine Dependence Sudha Bernstein M.A., Yesy.I.C.S.W., C.T.T.S. [address] [place] [phone] [facility] Referral ID Status Reason Start Date Expiration Date Visits Re quested Visits Authorized [id number] Closed 11/11/2023 05/12/2025 1 1 Encounter Details Date Type Department Care Team (Late st Contact Info) Description 11/18/2023 11:00 AM REVOLVING FIELD ASSEMBLER Virtual Visit Department of Nicotine Dependence, [facility], in [place], [place] [address] [place] [phone] Sudha Bernstein M.A., Yesy.I.C.S.W., C.T.T.S. [address] [place] [phone] Nicotine Dependence Cigarettes With Withdrawal (Primary Dx) Social History Tobacco Use Types Packs/Day Years Used Date Smoking Tobacco: Every Day Cigarettes 0.5 40 Smokeless Tobacco: Never Alcohol Use Standard Drinks/Week Comments Not Currently 0 (1 standard drink = 0.6 oz pur e alcohol) [facility] Utilities Answer Date Recorded In the past 12 months has [employer], gas, oil, or water company threatened [...] Sex Assigned at Female 10/06/2023 10:50 AM REVOLVING FIELD ASSEMBLER Gender Identity Female 10/06/2023 10:50 AM REVOLVING FIELD ASSEMBLER Sexual Orientation Straight 10/06/2023 10 :50 AM REVOLVING FIELD ASSEMBLER documented as of this encounter Progress Notes [...] 10 minutes was spent on tobacco counseling. LVING FIELD ASSEMBLER documented in this encounter Plan of Treatment Not on file documented as of this encounter Visit Diagnoses Diagnosis Nicotine Dependence Cigarettes With Withdrawal- Primary documented in this encounter Additional Health Concerns Assessment Noted Time PHQ-9 Depression Total Score: 3 10/20/19 24 7:30 AM REVOLVING FIELD ASSEMBLER documented as of this encounter Care Teams Restaurant Greeter Relationship Specialty Start Date End Date Elsewhere, Pcp PCP - General Family Medicine 12/07/23 documented as of this encounter
--- OUTSIDE RECORDS SUMMARY | 2024-02-05 06:12 | XMS_ITS | Encounter Summary ---
Author Organization [facility] Address [address] [place] [address] Care Team Providers Care Cash Register Mechanic Name Role Phone Unavailable Primary Care Provider Unavailabl e Reason for Referral * Outpatient (Routine) - Closed Specialty Diagnoses / Procedures Referred By Dotty oakes Referred To Contact Diagnoses Ascites Procedures US Paracentesis with Imaging Guidance Felipe Morales M.D. 200 [place] [phone] [facility] Referral ID Status Reason Start Date Expiration Date Visits Re quested Visits Authorized [id number] Closed 10/11/2023 10/10/2024 1 1 IS BALL COVERER HAND * Outpatient (Routine) - Closed Specialty Diagnoses / Procedures Referred By Dotty oakes Referred To Contact Diagnoses Ascites Procedures US Paracentesis with Imaging Guidance Felipe Morales M.D. [address] [place] [phone] [facility] Referral ID Status Reason Start Date Expiration Date Visits Re quested Visits Authorized [id number] Closed 10/11/2023 10/10/2024 1 1 IS BALL COVERER HAND Reason for Visit * Reason Onset Date Comments Hepatobiliary 10/08/2023 Ascites elijah Encounter Details Date Type Department Care Team (Latest Contact Info) Description 10/08/2023 Clinical Communication Division of Gastroenterology in [place], [place] [address] [place] [phone] Felipe Morales M.D. 200 [place] [address] Hepatobiliary (Ascites elijah) Social History Tobacco Use Types Packs/Day Years Used Date Smoking Tobacco: Every Day Cigarettes 0.5 40 Smokeless Tobacco: Never Alcohol Use Standard Drinks/Week Comments Not Currently 0 (1 standard drink = 0.6 oz pur e alcohol) [facility] Utilities Answer Date Recorded In the past 12 months has e [employer], gas, oil, or water [employer] threatened to shut off services in your [...] Sex Assigned at Female 10/06/2023 10:50 AM TENNIS BALL COVERER HAND Gender Identity Female 10/06/2023 10:50 AM TENNIS BALL COVERER HAND Sexual Orientation Straight 10/06/2023 10 :50 AM TENNIS BALL COVERER HAND documented as of this encounter Plan of Treatment Not on file documented as of this encounter Results * US Paracentesis with Imaging Guidance (11/19/2023 11:55 AM TENNIS BALL COVERER HAND) Anatomical Region Laterality Modality Abdomen, Ultrasound RST LOS, Ultrasound ARZ LOS, Procedure FLA LOS, Abdominal FLA LOS, Procedural, Procedural NWWI LOS N/A Ultrasound Impressions 11/19/2023 12:26 PM TENNIS BALL COVERER HAND Ultrasound-guided paracentesis. EP Narrative 11/19/2023 12:26 PM TENNIS BALL COVERER HAND EXAM: US PARACENTESIS WITH IMAGING GUIDANCE PRE-PROCEDURE: [...] Paracentesis with Imaging Guidance (11/05/2023 11:25 AM TENNIS BALL COVERER HAND) Anatomical Region Laterality Modality Abdomen, Ultrasound RST LOS, Ultrasound ARZ LOS, Procedure FLA LOS, Abdominal FLA LOS, Procedural, Procedural NWWI LOS N/A Ultrasound Impressions 11/05/2023 11:28 AM TENNIS BALL COVERER HAND Ultrasound-guided diagnostic and therapeutic paracentesis. NR Narrative 11/05/2023 11:28 AM TENNIS BALL COVERER HAND EXAM: US PARACENTESIS WITH IMAGING GUIDANCE PRE-PROCEDURE: [...] lower quadrant peritoneal space. Needle size: 5 [place] centesis catheter. Volume aspirated: 6.8 liters aspirated, [...] lower quadrant peritoneal space. Needle size: 5 [place] centesis catheter. Volume aspirated: 6.8 liters aspirated, [...]
--- OUTSIDE RECORDS SUMMARY | 2024-02-05 06:12 | XMS_ITS | Encounter Summary ---
Author Organization [facility] Address [address] [place] [address] Care Team Providers Care Hydro Pneumatic Tester Name Role Phone Unavailable Primary Care Provider Unavailabl e Encounter Details Date Type Department Care Team (Latest Contact Info) Description 11/01/2023 12:28 PM PROBATION MANAGER - 11/01/2023 11:59 PM PROBATION MANAGER Hospital Encounter Department of Laboratory Medicine in [address] [phone] Katja Umana M.D. [address] [place] [address] Alcoholic Cirrhosis Of Liver With Ascites (HCC) Discharge Disposition: Home or Self Care Social History Tobacco Use Types Packs/Day Years Used Date Smoking Tobacco: Every Day Cigarettes 0.5 40 Smokeless Tobacco: Never Alcohol Use Standard Drinks/Week Comments Not Currently 0 (1 standard drink = 0.6 oz pur e alcohol) [facility] Utilities Answer Date Recorded In the past 12 months has [employer], gas, oil, or water [employer] threatened to shut off services in your [...] Date Recorded Employment status Working with temporary [employer] 10/15/2023 Housing Stability Answer Date Recorded What is your living situation today? I have a [facility] place to live 10/15/2023 Sex and Gender Information Value Date Recorded Sex Assigned at Female 10/06/2023 10:50 AM PROBATION MANAGER Gender Identity Female 10/06/2023 10:50 AM PROBATION MANAGER Sexual Orientation Straight 10/06/2023 10 :50 AM PROBATION MANAGER documented as of this encounter Medications at [...] METABOLIC PANEL, S/P Routine 11/01/2023 12:49 PM PROBATION MANAGER Alcoholic Cirrhosis Of Liver With Ascites (HCC) documented in this encounter Results * (ABNORMAL) Basic Metabolic Panel (11/01/2023 12:49 PM PROBATION MANAGER) Potassium, P 4.1 3.6 - 5.2 mmol/L 11/01/2023 1:13 PM PROBATION MANAGER CNFL Sodium, P 128(L) 135 - 145 mmol/L 11/01/2023 1:13 PM PROBATION MANAGER CNFL Chloride, P 95(L) 98 - 107 mmol/L 11/01/2023 1:13 PM PROBATION MANAGER CNFL Bicarbonate, P 26 22 - 29 mmol/L 11/01/2023 1:13 PM PROBATION MANAGER CNFL Anion Gap, P 7 7 - 15 11/01/2023 1:13 PM PROBATION MANAGER CNFL BUN (Blood Urea Nitrogen), P 10 6 - 21 mg/dL 11/01/2023 1:13 PM PROBATION MANAGER CNFL Creatinine 0.42(L) 0.59 - 1.04 mg/dL 11/01/2023 1:13 PM PROBATION MANAGER CNFL Estimated GFR (eGFR) >90 >=60 mL/min/BSA 11/01/2023 1:13 PM PROBATION MANAGER CNFL Comment: Estimated GFR calculated using the 2020 CKD_EPI creatinine equation. Calcium, Total, P 8.3(L) 8.8 - 10.2 mg/dL 11/01/2023 1:13 PM PROBATION MANAGER CNFL Glucose, P 105 70 - 140 mg/dL 11/01/2023 1:13 PM PROBATION MANAGER CNFL Blood (Blood, Venous) 11/01/2023 12:49 PM PROBATION MANAGER 11/01/2023 12:54 PM PROBATION MANAGER Katja Umana M.D. LAB BLOOD ADD-ON [facility] [address] [place] [address], [facility] CNFL [facility] [place] [address] documented in this encounter Visit Diagnoses Diagnosis Alcoholic Cirrhosis Of Liver With Ascites (HCC) documented in this encounter Additional Health Concerns Assessment Noted Time PHQ-9 Depression Total Score: 3 10/20/19 24 7:30 AM PROBATION MANAGER documented as of this encounter
--- OUTSIDE RECORDS SUMMARY | 2024-02-05 06:12 | XMS_ITS | Encounter Summary ---
Author Organization [facility] Address [address] [place] [address] Care Team Providers Care Stenotype Machine Operator Name Role Phone Unavailable Primary Care Provider Unavailabl e Reason for Visit * Reason Onset Date Comments NDC Med Request 10/28/2023 Encounter Details Date Type Department Care Team (Latest Contact Info) Description 10/28/2023 Clinical Communication Department of Nicotine Dependence, [facility], in [place], [place] [address] [place] [address] Sudha Bernstein M.A., L.I.C.S.W., C.T.T.S. [address] [place] [phone] NDC Med Request Social History Tobacco Use Types Packs/Day Years Used Date Smoking Tobacco: Every Day Cigarettes 0.5 40 Smokeless Tobacco: Never Alcohol Use Standard Drinks/Week Comments Not Currently 0 (1 standard drink = 0.6 oz pur e alcohol) [facility] Utilities Answer Date Recorded In the past 12 months has [employer] gas, oil, or water [employer] threatened to shut off services in your [...] Date Recorded Employment status Working with temporary [email or web address] 10/15/2023 Housing Stability Answer Date Recorded What is your living situation today? I have a [facility] place to live 10/15/2023 Sex and Gender Information Value Date Recorded Sex Assigned at Female 10/06/2023 10:50 AM HARDWARE ENGINEER Gender Identity Female 10/06/2023 10:50 AM HARDWARE ENGINEER Sexual Orientation Straight 10/06/2023 10 :50 AM HARDWARE ENGINEER documented as of this encounter Miscellaneous Notes * Addendum Note - Raisa Hunt M.D. - 10/28/2023 5:01 PM CSTAddended by: RAISA HUNT on: 10/28/2023 05:01 PM Modules accepted: Orders WARE ENGINEER * Telephone Encounter - Sudha Bernstein M.A., L.I.C.S.W., M.S.W. - 10/28/2023 11:[address] Hunt, this patient is interested in having a prescription for Varenicline and nicotine lozenges sent to [facility] in [place], [place] for smoking cessation if appropriate based on your review of her medical record. Varenicline Starter Pack with refills 2 mg nicotine lozenges Thank you. WARE ENGINEER documented in this encounter Plan of Treatment Not on file documented as of this encounter Visit Diagnoses Diagnosis Nicotine Dependence Cigarettes- Primary documented in this encounter Additional Health Concerns Assessment Noted Time PHQ-9 Depression Total Score: 3 10/20/19 24 7:30 AM HARDWARE ENGINEER documented as of this encounter
--- OUTSIDE RECORDS SUMMARY | 2024-02-05 06:12 | XMS_ITS | Encounter Summary ---
Author Organization [facility] Address [address] [place] [address] Care Team Providers Care Direct Marketing Intern Name Role Phone Unavailable Primary Care Provider Unavailabl e Encounter Details Date Type Department Care Team (Latest Contact Info) Description 10/27/2023 10:26 AM DESK TOP PUBLISHER - 10/27/2023 11:59 PM DESK TOP PUBLISHER Hospital Encounter Department of Laboratory Medicine in [address] [phone] Katja Umana M.D. [address] [place] [address] Alcoholic Cirrhosis Of Liver With Ascites (HCC); [...] In the past 12 months has e [employer], gas, oil, or water [employer] threatened to shut off services in [...] Date Recorded Employment status Working with temporary [id number] 10/15/2023 Housing Stability Answer Date Recorded What is your living situation today? I have a [facility] place to live 10/15/2023 Sex and Gender Information Value Date Recorded Sex Assigned at Female 10/06/2023 10:50 AM DESK TOP PUBLISHER Gender Identity Female 10/06/2023 10:50 AM DESK TOP PUBLISHER Sexual Orientation Straight 10/06/2023 10 :50 AM DESK TOP PUBLISHER documented as of this encounter Medications at [...] PHOSPHATIDYLETHANOL CONFIRMATION, B Routine 10/27/2023 10:33 AM DESK TOP PUBLISHER Alcohol Moderate Or Severe Use Disorder (Dependence) Uncomplicated (HCC) BASIC METABOLIC PANEL, S/P Routine 10/27 10:33 AM DESK TOP PUBLISHER Alcoholic Cirrhosis Of Liver With Ascites (HCC) documented in this encounter Results * Phosphatidylethanol Confirmation (10/27/2023 10:33 AM DESK TOP PUBLISHER) PEth 16:0/18:1 (POPEth) by LC-MS/MS <20 Cutoff: 10 ng/mL 10/29/2023 8:22 PM DESK TOP PUBLISHER SDSC Comment: Testing performed at a x2 [...] <10 Cutoff: 10 ng/mL 10/29/2023 8:22 PM DESK TOP PUBLISHER SDSC Comment: PEth 16:0/18:2 (PLPEth) Reference ranges are not well established PEth Interpretation Negative. 10/29 8:22 PM DESK TOP PUBLISHER SDSC Comment: ----ADDITIONAL INFORMATION---- This report is intended for use in clinical monitoring and management of patients. ??It is not intended for use in employment-related testing. This test was developed and its performance characteristics determined by [facility] in a manner consistent with CLIA requirements. This test has not been cleared or approved by the U.S. Food and Drug Administration. Blood (Blood, Venous) 10/27/2023 10:33 AM DESK TOP PUBLISHER 10/27/2023 9:57 PM DESK TOP PUBLISHER Romana Diane M.D., Ph.D. LAB BLO OD ADD-ON [facility] [address] [place] [address] [facility] [address] [place] [address] [place] [address] * (ABNORMAL) Basic Metabolic Panel (10/27/2023 10:33 AM DESK TOP PUBLISHER) Pathologist [facility] Potassium, P 3.6 3.6 - 5.2 mmol/L 10/27/2023 10:57 AM DESK TOP PUBLISHER CNFL Sodium, P 125(L) 135 - 145 mmol/L 10/27/2023 10:57 AM DESK TOP PUBLISHER CNFL Chloride, P 92(L) 98 - 107 mmol/L 10/27/2023 10:57 AM DESK TOP PUBLISHER CNFL Bicarbonate, P 21(L) 22 - 29 mmol/L 10/27/2023 10:57 AM DESK TOP PUBLISHER CNFL Anion Gap, P 12 7 - 15 10/27/2023 10:57 AM DESK TOP PUBLISHER CNFL BUN (Blood Urea Nitrogen), P 10 6 - 21 mg/dL 10/27/2023 10:57 AM DESK TOP PUBLISHER CNFL Creatinine 0.47(L) 0.59 - 1.04 mg/dL 10/27/2023 10:57 AM DESK TOP PUBLISHER CNFL Estimated GFR (eGFR) >90 >=60 mL/min/BSA 10/27/2023 10:57 AM DESK TOP PUBLISHER CNFL Comment: Estimated GFR calculated using the 2020 CKD_EPI creatinine equation. Calcium, Total, P 8.4(L) 8.8 - 10.2 mg/dL 10/27/2023 10:57 AM DESK TOP PUBLISHER CNFL Glucose, P 93 70 - 140 mg/dL 10/27/2023 10:57 AM DESK TOP PUBLISHER CNFL Blood (Blood, Venous) 10/27/2023 10:33 AM DESK TOP PUBLISHER 10/27/2023 10:36 AM DESK TOP PUBLISHER Katja Umana M.D. LAB BLOOD ADD-ON [facility] [address] [place] [phone], [facility] CNFL [facility] [place] [facility] in [address] [address] documented in this encounter Visit Diagnoses Diagnosis Alcoholic Cirrhosis Of Liver With Ascites (HCC) Alcohol Moderate Or Severe Use Disorder (Dependence) Uncomplicated (HCC) documented in this encounter Additional Health Concerns Assessment Noted Time PHQ-9 Depression Total Score: 3 10/20/19 24 7:30 AM DESK TOP PUBLISHER documented as of this encounter
--- OUTSIDE RECORDS SUMMARY | 2024-02-05 06:12 | XMS_ITS | Encounter Summary ---
Author Organization [facility] Address [address] [place] [address] Care Team Providers Care Structural Iron Worker Name Role Phone Unavailable Primary Care Provider Unavailabl e Reason for Referral * Outpatient (Routine) - Closed Specialty Diagnoses / Procedures Referred By Contact Referred To Contact Gastroenterology and Hepatology Katja Aguilera M.D. [address] [place] [phone] [facility] Referral ID Status Reason Start Date Expiration Date Visits Re quested Visits Authorized [id number] Closed 10/28/2023 04/28/2025 1 1 DE WIREMAN Encounter Details Date Type Department Care Team (Late st Contact Info) Description 10/28/2023 Orders Only [facility] [address] [place] [phone] Katja Aguilera M.D. [address] [place] [phone] Alcoholic Cirrhosis Of Liver With Ascites (HCC) (Primary Dx) Social History Tobacco Use Types Packs/Day Years Used Date Smoking Tobacco: Every Day Cigarettes 0.5 40 Smokeless Tobacco: Never Alcohol Use Standard Drinks/Week Comments Not Currently 0 (1 standard drink = 0.6 oz pur e alcohol) [facility] Utilities Answer Date Recorded In the past 12 months has [employer], gas, oil, or water company threatened [...] Date Recorded Employment status Working with temporary [employer] 10/15/2023 Housing Stability Answer Date Recorded What is your living situation today? I have a [facility] place to live 10/15/2023 Sex and Gender Information Value Date Recorded Sex Assigned at Female 10/06/2023 10:50 AM INSIDE WIREMAN Gender Identity Female 10/06/2023 10:50 AM INSIDE WIREMAN Sexual Orientation Straight 10/06/2023 10 :50 AM INSIDE WIREMAN documented as of this encounter Miscellaneous Notes * Addendum Note - Katja Aguilera M.D. - 10/28/2023 2:39 PM CSTAddended by: KATJA AGUILERA on: 10/28/2023 02:48 PM Modules accepted: Orders DE WIREMAN documented in this encounter Plan of Treatment Scheduled Referrals Name Type Priority Associated Diagnoses Order Schedule Gastroenterology and Hepatology office visit (clinic) Outpatient Referral Routine Expected: 12/14/2023, Expires: 01/25/2025 documented as of this encounter Results * (ABNORMAL) Basic Metabolic Panel (11/01/2023 12:49 PM INSIDE WIREMAN) Potassium, P 4.1 3.6 - 5.2 mmol/L 11/01/2023 1:13 PM INSIDE WIREMAN CNFL Sodium, P 128(L) 135 - 145 mmol/L 11/01/2023 1:13 PM INSIDE WIREMAN CNFL Chloride, P 95(L) 98 - 107 mmol/L 11/01/2023 1:13 PM INSIDE WIREMAN CNFL Bicarbonate, P 26 22 - 29 mmol/L 11/01/2023 1:13 PM INSIDE WIREMAN CNFL Anion Gap, P 7 7 - 15 11/01/2023 1:13 PM INSIDE WIREMAN CNFL BUN (Blood Urea Nitrogen), P 10 6 - 21 mg/dL 11/01/2023 1:13 PM INSIDE WIREMAN CNFL Creatinine 0.42(L) 0.59 - 1.04 mg/dL 11/01/2023 1:13 PM INSIDE WIREMAN CNFL Estimated GFR (eGFR) >90 >=60 mL/min/BSA 11/01/2023 1:13 PM INSIDE WIREMAN CNFL Comment: Estimated GFR calculated using the 2020 CKD_EPI creatinine equation. Calcium, Total, P 8.3(L) 8.8 - 10.2 mg/dL 11/01/2023 1:13 PM INSIDE WIREMAN CNFL Glucose, P 105 70 - 140 mg/dL 11/01/2023 1:13 PM INSIDE WIREMAN CNFL Blood (Blood, Venous) 11/01/2023 12:49 PM INSIDE WIREMAN 11/01/2023 12:54 PM INSIDE WIREMAN Katja Aguilera M.D. LAB BLOOD ADD-ON [facility] [address] [place] [phone], [facility] CNFL [facility] in [address] [address] documented in this encounter Visit Diagnoses Diagnosis Alcoholic Cirrhosis Of Liver With Ascites (HCC)- Primary documented in this encounter Additional Health Concerns Assessment Noted Time PHQ-9 Depression Total Score: 3 10/20/19 24 7:30 AM INSIDE WIREMAN documented as of this encounter
--- OUTSIDE RECORDS SUMMARY | 2024-02-05 06:12 | XMS_ITS | Encounter Summary ---
Author Organization [facility] Address [address] [place] [address] Care Team Providers Care Construction Superintendent Name Role Phone Unavailable Primary Care Provider Unavailabl e Reason for Visit * Reason Comments Nicotine Dependence * Outpatient (Routine) - Closed Specialty Diagnoses / Procedures Referred By Contac t Referred To Contact Nicotine Dependence Sudha Bernstein M.A., Yesy.I.C.S.W., C.T.T.S. [address] [place] [phone] [facility] Referral ID Status Reason Start Date Expiration Date Visits Re quested Visits Authorized [id number] Closed 10/28/2023 04/28/2025 1 1 Encounter Details Date Type Department Care Team (Late st Contact Info) Description 11/11/2023 11:00 AM LEATHER GRAINER Virtual Visit Department of Nicotine Dependence, [facility], in [place], [place] [address] [place] [phone] Sudha Bernstein M.A., Yesy.I.C.S.W., C.T.T.S. [address] [place] [phone] Nicotine Dependence Cigarettes With Withdrawal (Primary Dx) Social History Tobacco Use Types Packs/Day Years Used Date Smoking Tobacco: Every Day Cigarettes 0.5 40 Smokeless Tobacco: Never Alcohol Use Standard Drinks/Week Comments Not Currently 0 (1 standard drink = 0.6 oz pur e alcohol) [facility] Utilities Answer Date Recorded In the past 12 months has [employer], gas, oil, or water company threatened [...] Date Recorded Employment status Working with temporary [employer] 10/15/2023 Housing Stability Answer Date Recorded What is your living situation today? I have a [facility] place to live 10/15/2023 Sex and Gender Information Value Date Recorded Sex Assigned at Female 10/06/2023 10:50 AM LEATHER GRAINER Gender Identity Female 10/06/2023 10:50 AM LEATHER GRAINER Sexual Orientation Straight 10/06/2023 10 :50 AM LEATHER GRAINER documented as of this encounter Progress Notes [...] concerns. The patient denied interest in having [facility] staff ask the [facility] medicalprovider if they recommend a different dose [...] to tape and the patient was informed [facility] staff can ask the [facility] medical provider to write on the prescription [...] minutes was spent on tobacco counseling. HER GRAINER documented in this encounter Plan of Treatment Not on file documented as of this encounter Visit Diagnoses Diagnosis Nicotine Dependence Cigarettes With Withdrawal- Primary documented in this encounter Additional Health Concerns Assessment Noted Time PHQ-9 Depression Total Score: 3 10/20/19 24 7:30 AM LEATHER GRAINER documented as of this encounter
--- OUTSIDE RECORDS SUMMARY | 2024-02-05 06:12 | XMS_ITS | Encounter Summary ---
Author Organization [facility] Address [address] [place] [address] Care Team Providers Care Card Tape Converter Operator Name Role Phone Elsewhere, Pcp Primary Care Provider Unavailabl e Reason for Referral * Outpatient (Routine) - Authorized Specialty Diagnoses / Procedures Referred By Dotty t Referred To Contact Diagnoses Ascites Procedures US Paracentesis with Imaging Guidance Katja Umana M.D. [address] [place] [phone] [facility] Referral ID Status Reason Start Date Expiration Date V isits Requested Visits Authorized [id number] Authorized 11/23/2023 11/22/2024 1 1 Reason for Visit * Reason Onset Date Comments Order Request 11/22/2023 Encounter Details Date Type Department Care Team (Latest Contact Info) Description 11/22/2023 Clinical Communication Division of Gastroenterology in [place], [place] [address] [place] [phone] Katja Umana M.D. [address] [place] [phone] Order Request Social History Tobacco Use Types [...] your living situation today? I have a [facility] place to live 10/15/2023 Sex and Gender Information Value Date Recorded Sex Assigned at Female 10/06/2023 10:50 AM PIPELINE WELDER Gender Identity Female 10/06/2023 10:50 AM PIPELINE WELDER Sexual Orientation Straight 10/06/2023 10 :50 AM PIPELINE WELDER documented as of this encounter Plan of [...] Total Score: 3 10/20/19 24 7:30 AM PIPELINE WELDER documented as of this encounter Care Teams Card Tape Converter Operator Relationship Specialty Start Date End Date Elsewhere, Pcp PCP - General Family Medicine 12/07/23 documented as of this encounter
--- OUTSIDE RECORDS SUMMARY | 2024-02-05 06:12 | XMS_ITS | Encounter Summary ---
Author Organization [facility] Address [address] [place] [address] Care Team Providers Care Water Meter Reader Name Role Phone Unavailable Primary Care Provider Unavailabl e Reason for Referral * Outpatient (Routine) - Closed Specialty Diagnoses / Procedures Referred By Dotty oakes Referred To Contact Diagnoses Ascites Procedures US Paracentesis with Imaging Guidance Felipe Morales M.D. [address] [place] [phone] [facility] Referral ID Status Reason Start Date Expiration Date Visits Re quested Visits Authorized [id number] Closed 10/11/2023 10/10/2024 1 1 TRAFFIC CONTROLLER Reason for Visit * Outpatient (Routine) - Closed Specialty Diagnoses / Procedures Referred By Dotty oakes Referred To Contact Diagnoses Ascites Procedures US Paracentesis with Imaging Guidance Felipe Morales M.D. [address] [place] [phone] [facility] Referral ID Status Reason Start Date Expiration Date Visits Re quested Visits Authorized [id number] Closed 10/11/2023 10/10/2024 1 1 Encounter Details Date Type Department Care Team (Latest Contact Info) Description 11/05/2023 9:29 AM AIR TRAFFIC CONTROLLER - 11/05/2023 12:20 PM AIR TRAFFIC CONTROLLER Hospital Encounter Department of Radiology, [facility], in [place], [place] [address] [place] [phone] Felipe Morales M.D. [address] [place] [phone] Ascites Discharge Disposition: Home or Self Care [...] Sex Assigned at Female 10/06/2023 10:50 AM AIR TRAFFIC CONTROLLER Gender Identity Female 10/06/2023 10:50 AM AIR TRAFFIC CONTROLLER Sexual Orientation Straight 10/06/2023 10 :50 AM AIR TRAFFIC CONTROLLER documented as of this encounter Last Filed Vital Signs Vital Sign Reading Time Taken Comments Blood Pressure 106/56 11/05/2023 11:17 AM AIR TRAFFIC CONTROLLER Pulse 88 11/05/2023 11:17 AM AIR TRAFFIC CONTROLLER Temperature - - Respiratory Rate - - Oxygen Saturation 100% 11/05/2023 11:17 AM AIR TRAFFIC CONTROLLER Inhaled Oxygen Concentration - - Weight - - Height - - Body Mass Index - - documented in this encounter Discharge Instructions * Attachments The following attachments cannot be sent through Care Everywhere. * Paracentesis (Korean) documented in this encounter Medications at Time [...] inpatients and all outpatients) 11/05/2023 11:25 AM AIR TRAFFIC CONTROLLER Ascites BACTERIAL CULTURE, AEROBIC + SUSC Timed 11/05/2023 10:07 AM AIR TRAFFIC CONTROLLER Ascites CELL COUNT AND DIFFERENTIAL, BF Timed 11/05/2023 10:07 AM AIR TRAFFIC CONTROLLER Ascites documented in this encounter Results * US Paracentesis with Imaging Guidance (11/05/2023 11:25 AM AIR TRAFFIC CONTROLLER) Anatomical Region Laterality Modality Abdomen, Ultrasound RST LOS, Ultrasound ARZ LOS, Procedure FLA LOS, Abdominal FLA LOS, Procedural, Procedural NWWI LOS N/A Ultrasound Impressions 11/05/2023 11:28 AM AIR TRAFFIC CONTROLLER Ultrasound-guided diagnostic and therapeutic paracentesis. NR Narrative 11/05/2023 11:28 AM AIR TRAFFIC CONTROLLER EXAM: US PARACENTESIS WITH IMAGING GUIDANCE PRE-PROCEDURE: [...] lower quadrant peritoneal space. Needle size: 5 Belarusian centesis catheter. Volume aspirated: 6.8 liters aspirated, [...] lower quadrant peritoneal space. Needle size: 5 Belarusian centesis catheter. Volume aspirated: 6.8 liters aspirated, [...] and therapeutic paracentesis. NR Felipe Morales M.D. [facility] [place] PROCEDURES * Cell Count and Differential, Body Fluid (11/05/2023 10:07 AM AIR TRAFFIC CONTROLLER) Fluid Type Peritoneal /Paracente sis 11/05/2023 11:13 AM AIR TRAFFIC CONTROLLER DHPM Gross Appearance Serous 11/05/19 24 11:13 AM AIR TRAFFIC CONTROLLER DHPM Total Nucleated Cells 282 /mcL 11/05/2023 11:13 AM AIR TRAFFIC CONTROLLER DHPM Comment: ----REFERENCE VALUE---- Synovial: <150 /mcL Peritoneal: <500 /mcL Pleural: <500 /mcL Pericardial: <500 /mcL ----ADDITIONAL INFORMATION---- This test has been modified from the salesperson burial plots's instructions. Its performance characteristics were determined by [facility] in a manner consistent with CLIA requirements. This test has not been cleared or approved by the U.S. Food and Drug Administration. Neutrophils 3 % 11/05/2023 12:54 PM AIR TRAFFIC CONTROLLER DHPM Comment: ----REFERENCE VALUE---- Synovial: <25% Peritoneal: <25% Pleural: <25% Pericardial: <25% Lymphocytes 26 Synovial <75% % 11/05/2023 12:54 PM AIR TRAFFIC CONTROLLER DHPM Monocytes/Macropha ges 64 Synovial <70% % 11/05/2023 12:54 PM AIR TRAFFIC CONTROLLER DHPM Other Cells 7 % 11/05/2023 12:54 PM AIR TRAFFIC CONTROLLER DHPM Comment: ----REFERENCE VALUE---- The reference range and other method performance specifications have not been established for this bodyfluid. The test result must be integrated into the clinical context for interpretation. Other Cells Are: See Comment 11/05/2023 12:54 PM AIR TRAFFIC CONTROLLER DHPM Comment:Mesothelial cells Comment See Comment 11/05/2023 12:54 PM AIR TRAFFIC CONTROLLER DHPM Comment:No blasts or maligna nt cells seen.Erythrophagocytosis present. Reviewed by: Jose 11/05/2023 12:54 PM AIR TRAFFIC CONTROLLER DHPM Fluid (Peritoneal Fluid) 11/05/2023 10:07 AM AIR TRAFFIC CONTROLLER Narrative Authorizing Provider Result Enio Morales M.D. LAB BODY FLUIDS AND STOOLS ORDERABLES [address] [address], [facility] [address] [place] [address] * Bacterial Culture, Aerobic + Susceptibility (11/05/2023 10:07 AM AIR TRAFFIC CONTROLLER) Bacterial Culture, Aerobic + Susc No growth after 5 days of incubation. 2023 7:33 AM AIR TRAFFIC CONTROLLER DTL Fluid (Peritoneal Fluid) 11/05/2023 10:07 AM AIR TRAFFIC CONTROLLER Narrative [facility] - 2023 7:33 AM AIR TRAFFIC CONTROLLER Bacterial Culture: Received Bactec aerobic and Bactec anaerobic bottles Felipe Morales M.D. LAB MICROBIOLOGY - GENERAL ORDERABLES [facility] [address] [place] [address], [place] DTL [facility] [address] [place] [address] documented in this encounter Visit Diagnoses Diagnosis [...] 100 mL/hr New Bag 11/05/2023 10:39 AM AIR TRAFFIC CONTROLLER 25 g albumin human 25 % injection 25 g 25 g, intravenous, Once, On Wed11/05/23 at 1130, For 1 dose, If no infusion rate specified: Administer the 25% solution at 100 mL/hr New Bag 11/05/2023 11:20 AM AIR TRAFFIC CONTROLLER 25 g lidocaine 10 mg/mL (1 %) injection (XYLOCAINE) As needed, Starting on Wed11/05/23 at 1023, Intra-Op Given 11/05/2023 10:23 AM AIR TRAFFIC CONTROLLER 10 mL Abdominal Tissue documented in this encounter Active and Recently Administered Medications Times are shown in AIR TRAFFIC CONTROLLER. Scheduled Medication Order 11/03/2023 11/04/2023 11/05/2023 albumin [...] Total Score: 3 10/20/19 24 7:30 AM AIR TRAFFIC CONTROLLER documented as of this encounter
--- OUTSIDE RECORDS SUMMARY | 2024-02-05 06:12 | XMS_ITS | Encounter Summary ---
Author Organization [facility] Address [address] [place] [address] Care Team Providers Care Garage Door Installer Name Role Phone Unavailable Primary Care Provider Unavailabl e Reason for Referral * Outpatient (Routine) - Closed Specialty Diagnoses / Procedures Referred By Dotty t Referred To Contact Nicotine Dependence Sudha Bernstein M.A., DonnS.Tom, C.T.T.S. [address] [place] [phone] [facility] Referral ID Status Reason Start Date Expiration Date Visits Re quested Visits Authorized [id number] Closed 11/18/2023 05/19/2025 1 1 Scheduling Instructions Please schedule a follow up phone visit. CREW SUPERVISOR Encounter Details Date Type Department Care Team (Late st Contact Info) Description 11/18/2023 Orders Only Department of Nicotine Dependence, [facility] in [place], [place] [address] [place] [phone] Sudha Bernstein M.A., Edwin.S.W., C.T.T.S. [address] [place] [phone] Social History Tobacco Use Types Packs/Day Years Used Date Smoking Tobacco: Every Day Cigarettes 0.5 40 Smokeless Tobacco: Never Alcohol Use Standard Drinks/Week Comments Not Currently 0 (1 standard drink = 0.6 oz pur e alcohol) [facility] Utilities Answer Date Recorded In the past 12 months has th e [employer], gas, oil, or water [employer] threatened to shut off services in your [...] Date Recorded Employment status Working with temporary [employer] tions 10/15/2023 Housing Stability Answer Date Recorded What is your living situation today? I have a [facility] place to live 10/15/2023 Sex and Gender Information Value Date Recorded Sex Assigned at Female 10/06/2023 10:50 AM TRIM CREW SUPERVISOR Gender Identity Female 10/06/2023 10:50 AM TRIM CREW SUPERVISOR Sexual Orientation Straight 10/06/2023 10 :50 AM TRIM CREW SUPERVISOR documented as of this encounter Plan of Treatment Scheduled Referrals Name Type Priority Associated Diagnoses Order Schedule Nicotine Dependence office visit (clinic) Outpatient Referral Routine Expected: 12/20/2023, Expires: 02/17/2025 documented as of this encounter Visit Diagnoses Not on filedocumented in this encounter Additional Health Concerns Assessment Noted Time PHQ-9 Depression Total Score: 3 10/20/19 24 7:30 AM TRIM CREW SUPERVISOR documented as of this encounter
--- OUTSIDE RECORDS SUMMARY | 2024-02-05 06:12 | XMS_ITS | Encounter Summary ---
Author Organization [facility] Address [address] [place] [address] Care Team Providers Care Roving Marker Name Role Phone Unavailable Primary Care Provider Unavailabl e Encounter Details Date Type Department Care Team (Latest Contact Info) Description 10/27/2023 10:26 AM CARDIOVASCULAR RN - 10/27/2023 11:59 PM CARDIOVASCULAR RN Hospital Encounter Department of Laboratory Medicine in [address] [phone] Romana Diane M.D., Ph.D. [address] [place] [phone] Alcohol Moderate Or Severe Use Disorder (Dependence) [...] In the past 12 months has e [employer], gas, oil, or water [employer] threatened to shut off services in your [...] Date Recorded Employment status Working with temporary [employer] 10/15/2023 Housing Stability Answer Date Recorded What is your living situation today? I have a [facility] place to live 10/15/2023 Sex and Gender Information Value Date Recorded Sex Assigned at Female 10/06/2023 10:50 AM CARDIOVASCULAR RN Gender Identity Female 10/06/2023 10:50 AM CARDIOVASCULAR RN Sexual Orientation Straight 10/06/2023 10 :50 AM CARDIOVASCULAR RN documented as of this encounter Medications at [...] GLUCURONIDE CONFIRMATION, U Routine 10/27/2023 10:38 AM CARDIOVASCULAR RN Alcohol Moderate Or Severe Use Disorder (Dependence) Uncomplicated (HCC) CONFIRMED DRUG ABUSE PANEL, U Routine 10/27/2023 10:38 AM CARDIOVASCULAR RN Alcohol Moderate Or Severe Use Disorder (Dependence) Uncomplicated (HCC) documented in this encounter Results * Drug Abuse Survey with Confirmation, Urine (10/27/2023 10:38 AM CARDIOVASCULAR RN) Alcohol Negative Cutoff: 10 mg/dL 10/28/2023 9:08 AM CARDIOVASCULAR RN SDS Amphetamines Negative Cutoff: 500 ng/mL 10/28/2023 9:08 AM CARDIOVASCULAR RN SDS Barbiturates Negative Cutoff: 200 ng/mL 10/28/2023 9:08 AM CARDIOVASCULAR RN SDS Benzodiazepines Negative Cutoff: 100 ng/mL 10/28/2023 9:08 AM CARDIOVASCULAR RN [facility] Cocaine Negative Cutoff: 150 ng/mL 10/28/2023 9:08 AM CARDIOVASCULAR RN [facility] Comment: This cocaine immunoassay targets benzoylecgonine the primary metabolite of cocaine. Opiates Negative Cutoff: 300 ng/mL 10/28/2023 9:08 AM CARDIOVASCULAR RN SDS Phencyclidine Negative Cutoff: 25 ng/mL 10/28/2023 9:08 AM CARDIOVASCULAR RN SDS Tetrahydrocannabinol Negative Cutoff: 50 ng/mL 10/28/2023 9:08 AM [facility] Comment: This immunoassay targets delta-9 tetrahydrocannabinol carboxylic acid (THC-COOH), a metabolite of delta-9 tetrahydrocannabinol the main psychoactive ingredient of marijuana. ----ADDITIONAL INFORMATION---- This report is intended for use in clinical monitoring or management of patients. ??It is not intended for use in employment-related testing. Urine (Urine, Midstream) 10/27/2023 10:38 AM CARDIOVASCULAR RN 10/27/2023 10:03 PM CARDIOVASCULAR RN Romana Diane M.D., Ph.D. LAB URI NE ORDERABLES [facility] [address] [place] [address] [facility] [address] [place] [address] [place] [phone] * Ethyl Glucuronide Confirmation, Random, Urine (10/27/2023 10:38 AM CARDIOVASCULAR RN) Ethyl Glucuronide Confirmation, U Negative Cutoff: 250 ng/mL 10/29/2023 8:19 AM CARDIOVASCULAR RN [facility] Ethyl Sulfate Negative Cutoff: 100 ng/mL 10/29/2023 8:19 AM CARDIOVASCULAR RN [facility] Ethyl Gluc/Sulfate Interpretation Negative. 10/29/2023 8:19 AM CARDIOVASCULAR RN [facility] Comment: ----ADDITIONAL INFORMATION---- This report is intended for use in clinical monitoring and management of patients. ??It is not intended for use in employment-related testing. This test was developed and its performance characteristics determined by [facility] in a manner consistent with CLIA requirements. This test has not been cleared or approved by the U.S. Food and Drug Administration. Urine (Urine, Midstream) 10/27/2023 10:38 AM CARDIOVASCULAR RN 10/27/2023 10:00 PM CARDIOVASCULAR RN Romana Diane M.D., Ph.D. LAB URI NE ORDERABLES Performing Organization Address [facility] Co de Phone Number [facility] [address] [place] [address] [facility] [address] [place] [address] [place] [address] documented in this encounter Visit Diagnoses Diagnosis Alcohol Moderate Or Severe Use Disorder (Dependence) Uncomplicated (HCC) documented in this encounter Additional Health Concerns Assessment Noted Time PHQ-9 Depression Total Score: 3 10/20/19 24 7:30 AM CARDIOVASCULAR RN documented as of this encounter
--- OUTSIDE RECORDS SUMMARY | 2024-02-05 06:12 | XMS_ITS | Encounter Summary ---
Author Organization [facility] Address [address] [place] [address] Care Team Providers Care Flying Instructor Name Role Phone Elsewhere, Pcp Primary Care Provider Unavailabl e Reason for Visit * Outpatient (Routine) - Closed Specialty Diagnoses / Procedures Referred By Dotty t Referred To Contact Preventive Medicine Diagnoses Alcoholic Cirrhosis Of Liver With Ascites (HCC) Katja Umana M.D. [address] [place] [phone] [facility] Referral ID Status Reason Start Date Expiration Date Visits Re quested Visits Authorized [id number] Closed 10/15/2023 04/15/2025 1 1 Encounter Details Date Type Department Care Team (Latest Contact Info) Description 12/08/2023 10:30 AM CDT Comprehensive Visit Section of Infectious Diseases in [place], [place] [address] [place] [phone] Katja Umana M.D. [address] [place] [phone] Brianna Anglin APRN, C.N.P., D.N.P. [address] [place] [phone] Counseling And Review Vaccination Status (Primary [...] = 0.6 oz pur e alcohol) [facility] Utilities Answer Date Recorded In the [...] Sex Assigned at Female 10/06/2023 10:50 AM MAJOR CASE DETECTIVE Gender Identity Female 10/06/2023 10:50 AM MAJOR CASE DETECTIVE Sexual Orientation Straight 10/06/2023 10 :50 AM MAJOR CASE DETECTIVE documented as of this encounter Patient Instructions [...] the Hepatobiliary team here at [facility]. They have requested for patient to [...] Total Score: 3 10/20/19 24 7:30 AM MAJOR CASE DETECTIVE documented as of this encounter Care Teams Flying Instructor Relationship Specialty Start Date End Date Elsewhere, Pcp PCP - General Family Medicine 12/07/23 documented as of this encounter
--- OUTSIDE RECORDS SUMMARY | 2024-02-05 06:12 | XMS_ITS ---
Author Organization [facility] Address [address] [place] [address] Care Team Providers Care Technical Operator Name Role Phone Elsewhere, Pcp Primary Care Provider Unavailabl e Transplant Episode Liver Candidate [facility] [place] ([place], [place]) - [facility] Referred on 01/26/2024 Marked as Ineligible on 02/01/2024 Reason: Medical Contraindication Liver CoordinatorTXP PRE LIVER NURSE TEAM ROCH Phone: N/A Fax: N/A Email: N/A Scores Score Value Updated Expires Exceptions/[place] sons CPRA Not available UNOS MELD Not available MELD (Calc) 24 12/09/2023 Care Team Name Role Phone Fax Email TXP PRE LIVER NURSE TEAM ROCH Liver Coordinator N/A N/A N/A Katja Umana M.D. Referring Provider [phone] [email or web address] Pre-Transplant Referred: 01/26/2024
--- OUTSIDE RECORDS SUMMARY | 2024-02-05 06:12 | XMS_ITS | Encounter Summary ---
Author Organization [facility] Address [address] [place] [address] Care Team Providers Care Director Database Name Role Phone Unavailable Primary Care Provider Unavailabl e Reason for Referral * Outpatient (Routine) - Closed Specialty Diagnoses / Procedures Referred By Dotty oakes Referred To Contact Diagnoses Ascites Procedures US Paracentesis with Imaging Guidance Katja Umana M.D. [address] [place] [phone] [facility] Referral ID Status Reason Start Date Expiration Date Visits Re quested Visits Authorized [id number] Closed 10/18/2023 10/17/2024 1 1 CINE ASSISTANT Encounter Details Date Type Department Care Team (Latest Contact Info) Description 10/18/2023 Clinical Communication Division of Gastroenterology in [place], [place] [address] [place] [phone] Katja Umana M.D. [address] [place] [phone] Social History Tobacco Use Types Packs/Day Years Used Date Smoking Tobacco: Every Day Cigarettes 0.5 40 Smokeless Tobacco: Never Alcohol Use Standard Drinks/Week Comments Not Currently 0 (1 standard drink = 0.6 oz pur e alcohol) [facility] Utilities Answer Date Recorded In [...] Sex Assigned at Female 10/06/2023 10:50 AM MEDICINE ASSISTANT Gender Identity Female 10/06/2023 10:50 AM MEDICINE ASSISTANT Sexual Orientation Straight 10/06/2023 10 :50 AM MEDICINE ASSISTANT documented as of this encounter Plan of Treatment Not on file documented as of this encounter Results * US Paracentesis with Imaging Guidance (10/22/2023 10:18 AM MEDICINE ASSISTANT) Anatomical Region Laterality Modality Abdomen, Ultrasound RST LOS, Ultrasound ARZ LOS, Procedure FLA LOS, Abdominal FLA LOS, Procedural, Procedural NWWI LOS N/A Ultrasound Impressions 10/22/2023 10:26 AM MEDICINE ASSISTANT Ultrasound-guided diagnostic and therapeutic paracentesis. NR Narrative 10/22/2023 10:26 AM MEDICINE ASSISTANT EXAM: US PARACENTESIS WITH IMAGING GUIDANCE [...]
--- OUTSIDE RECORDS SUMMARY | 2024-02-05 06:12 | XMS_ITS | Encounter Summary ---
Author Organization [facility] Address [address] [place] [id number] Care Team Providers Care Die Holder Name Role Phone Unavailable Primary Care Provider Unavailabl e Reason for Referral * Outpatient (Routine) - Closed Specialty Diagnoses / Procedures Referred By Dotty oakes Referred To Contact Diagnoses Ascites Procedures US Paracentesis with Imaging Guidance Felipe Morales M.D. [address] [place] [phone] [facility] Referral ID Status Reason Start Date Expiration Date Visits Re quested Visits Authorized [id number] Closed 10/11/2023 10/10/2024 1 1 KMAKER Reason for Visit * Outpatient (Routine) - Closed Specialty Diagnoses / Procedures Referred By Dotty oakes Referred To Contact Diagnoses Ascites Procedures US Paracentesis with Imaging Guidance Felipe Morales M.D. [address] [place] [phone] [facility] Referral ID Status Reason Start Date Expiration Date Visits Re quested Visits Authorized [id number] Closed 10/11/2023 10/10/2024 1 1 Encounter Details Date Type Department Care Team (Latest Contact Info) Description 11/19/2023 10:08 AM BLANKMAKER - 11/19/2023 12:51 PM BLANKMAKER Hospital Encounter Department of Radiology, [facility], in [place], [place] [address] [place] [phone] Felipe Morales M.D. [address] [place] [phone] Ascites Discharge Disposition: Home or Self Care Social History Tobacco Use Types Packs/Day Years Used Date Smoking Tobacco: Every Day Cigarettes 0.5 40 Smokeless Tobacco: Never Alcohol Use Standard Drinks/Week Comments Not Currently 0 (1 standard drink = 0.6 oz pur e alcohol) [facility] Utilities Answer Date Recorded In [...] Sex Assigned at Female 10/06/2023 10:50 AM BLANKMAKER Gender Identity Female 10/06/2023 10:50 AM BLANKMAKER Sexual Orientation Straight 10/06/2023 10 :50 AM BLANKMAKER documented as of this encounter Last Filed Vital Signs Vital Sign Reading Time Taken Comments Blood Pressure 91/46 11/19/2023 11:45 AM BLANKMAKER Pulse 84 11/19/2023 11:45 AM BLANKMAKER Temperature - - Respiratory Rate - - Oxygen Saturation 100% 11/19/2023 11:45 AM BLANKMAKER Inhaled Oxygen Concentration - - Weight - [...] inpatients and all outpatients) 11/19/2023 11:55 AM BLANKMAKER Ascites BACTERIAL CULTURE, AEROBIC + SUSC Timed 11/19/2023 10:50 AM BLANKMAKER Ascites CELL COUNT AND DIFFERENTIAL, BF Timed 11/19/2023 10:50 AM BLANKMAKER Ascites documented in this encounter Results * US Paracentesis with Imaging Guidance (11/19/2023 11:55 AM BLANKMAKER) Anatomical Region Laterality Modality Abdomen, Ultrasound RST LOS, Ultrasound ARZ LOS, Procedure FLA LOS, Abdominal FLA LOS, Procedural, Procedural NWWI LOS N/A Ultrasound Impressions 11/19/2023 12:26 PM BLANKMAKER Ultrasound-guided paracentesis. EP Narrative 11/19/2023 12:26 PM BLANKMAKER EXAM: US PARACENTESIS WITH IMAGING GUIDANCE PRE-PROCEDURE: [...] Culture, Aerobic + Susceptibility (11/19/2023 10:50 AM BLANKMAKER) Bacterial Culture, Aerobic + Susc No growth after 5 days of incubation. 11/24/2023 8:27 AM CDT DTL Fluid (Peritoneal Fluid) 11/19/2023 10:50 AM BLANKMAKER Narrative [facility] - 11/24/2023 8:27 AM CDT Bacterial Culture: Received Bactec aerobic and Bactec anaerobic bottles Felipe Morales M.D. LAB MICROBIOLOGY - GENERAL ORDERABLES [facility] [address] [place] [address], [facility] [address] [place] [address] * Cell Count and Differential, Body Fluid (11/19/2023 10:50 AM BLANKMAKER) Fluid Type Peritoneal /Paracente sis 11/19/2023 12:39 PM BLANKMAKER DHPM Gross Appearance Serous 11/19/19 12:39 PM BLANKMAKER DHPM Total Nucleated Cells 201 /mcL 11/19/2023 12:39 PM BLANKMAKER DHPM Comment: ----REFERENCE VALUE---- Synovial: <150 /mcL Peritoneal: <500 /mcL Pleural: <500 /mcL Pericardial: <500 /mcL ----ADDITIONAL INFORMATION---- This test has been modified from the home health aide's instructions. Its performance characteristics were determined by [facility] in a manner consistent with CLIA requirements. This test has not been cleared or approved by the U.S. Food and Drug Administration. Neutrophils 20 % 11/19/2023 1:42 PM BLANKMAKER DHPM Comment: ----REFERENCE VALUE---- Synovial: <25% Peritoneal: <25% Pleural: <25% Pericardial: <25% Lymphocytes 16 Synovial <75% % 11/19/2023 1:42 PM BLANKMAKER DHPM Monocytes/Macropha ges 60 Synovial <70% % 11/19/2023 1:42 PM BLANKMAKER DHPM Other Cells 4 % 11/19/2023 1:42 PM BLANKMAKER [facility]PM Comment: ----REFERENCE VALUE---- The reference range and other method performance specifications have not been established for this bodyfluid. The test result must be integrated into the clinical context for interpretation. Other Cells Are: See Comment 11/19/2023 1:42 PM BLANKMAKER [facility] Comment:Mesothelial cells Comment See Comment 11/19/2023 1:42 PM BLANKMAKER [facility] Comment:No blasts or maligna nt cells seen. Reviewed by: Jose 11/19/2023 1:42 PM BLANKMAKER [facility] Fluid (Peritoneal Fluid) 11/19/2023 10:50 AM BLANKMAKER Felipe Morales M.D. LAB BODY FLUIDS AND STOOLS ORDERABLES [facility] [address] [place] [address], [facility] [address] [place] [address] documented in this encounter Visit Diagnoses Diagnosis [...] provider's discretion) New Bag 11/19/2023 11:11 AM BLANKMAKER 50 g 100 mL/hr lidocaine 10 mg/mL (1 %) injection (XYLOCAINE) As needed, Starting on Wed11/19/23 at 1056, Intra-Op Given 11/19/2023 10:56 AM BLANKMAKER 5 mL Abdominal Tissue documented in this encounter Active and Recently Administered Medications Times are shown in BLANKMAKER. Scheduled Medication Order 11/17/2023 11/18/2023 11/19/2023 albumin [...] Total Score: 3 10/20/19 24 7:30 AM BLANKMAKER documented as of this encounter
--- OUTSIDE RECORDS SUMMARY | 2024-02-05 06:12 | XMS_ITS | Encounter Summary ---
Author Organization [facility] Address [address] [place] [address] Care Team Providers Care Spar Cap Beveler Name Role Phone Unavailable Primary Care Provider Unavailabl e Reason for Referral * Outpatient (Routine) - Closed Specialty Diagnoses / Procedures Referred By Dotty oakes Referred To Contact Nicotine Dependence Sudha Bernstein M.A., DonnS.W., C.T.T.S. [address] [place] [phone] [facility] Referral ID Status Reason Start Date Expiration Date Visits Re quested Visits Authorized [id number] Closed 11/11/2023 05/12/2025 1 1 Scheduling Instructions Please schedule a follow up phone visit at 11:00am, LIAISON Encounter Details Date Type Department Care Team (Late st Contact Info) Description 11/11/2023 Orders Only Department of Nicotine Dependence, [facility] in [place], [place] [address] [place] [phone] Sudha Bernstein M.A., Edwin.S.W., C.T.T.S. [address] [place] [phone] Social History Tobacco Use Types Packs/Day Years [...] Assigned at Female 10/06/2023 10:50 AM RN LIAISON Gender Identity Female 10/06/2023 10:50 AM RN LIAISON Sexual Orientation Straight 10/06/2023 10 :50 AM RN LIAISON documented as of this encounter Plan of Treatment Scheduled Referrals Name Type Priority Associated Diagnoses Order Schedule Nicotine Dependence office visit (clinic) Outpatient Referral Routine Expected: 11/18/2023, Expires: 02/08/2025 documented as of this encounter Visit Diagnoses Not on filedocumented in this encounter Additional Health Concerns Assessment Noted Time PHQ-9 Depression Total Score: 3 10/20/19 24 7:30 AM RN LIAISON documented as of this encounter
--- OUTSIDE RECORDS SUMMARY | 2024-02-05 06:12 | XMS_ITS | Encounter Summary ---
Author Organization [facility] Address [address] [place] [address] Care Team Providers Care [employer] Baseball Coach Name Role Phone Elsewhere, Pcp Primary Care Provider Unavailabl e Reason for Visit * Reason Onset Date Comments Pre-visit Intake 12/07/2023 Encounter Details Date Type Department Care Team (Latest Contact Info) Description 12/07/2023 1:45 PM CDT Clinical Communication Virtual Review in [place], [place] [address] [place] [phone] Pre-visit Intake Social History Tobacco Use Types [...] Sex Assigned at Female 10/06/2023 10:50 AM PLYWOOD AND VENEER REPAIRER Gender Identity Female 10/06/2023 10:50 AM [employer]OD [employer] V[employer]ER REPAIRER Sexual Orientation Straight 10/06/2023 10 :50 AM PLYWOOD [employer] VENEER REPAIRER documented as of this encounter Plan of Treatment Not on file documented as of this encounter Visit Diagnoses Not on filedocumented in this encounter Additional Health Concerns Assessment Noted Time PHQ-9 Depression Total Score: 3 10/20/19 7:30 AM PLYWOOD AND VENEER REPAIRER documented as of this encounter Care Teams [employer] Baseball Coach Relationship Specialty Start Date End Date Elsewhere, Pcp PCP - General Family Medicine 12/07/23 documented as of this encounter
--- OUTSIDE RECORDS SUMMARY | 2024-02-05 06:12 | XMS_ITS | Encounter Summary ---
Author Organization [facility] Address [address] [place] [address] Care Team Providers Care Cognos Analyst Name Role Phone Unavailable Primary Care Provider Unavailabl e Reason for Referral * Outpatient (Routine) - Closed Specialty Diagnoses / Procedures Referred By Dotty t Referred To Contact Nicotine Dependence Sudha Bernstein M.A., DonnS.Dameon., C.T.T.S. [address] [place] [phone] [facility] Referral ID Status Reason Start Date Expiration Date Visits Re quested Visits Authorized [id number] Closed 10/28/2023 04/28/2025 1 1 Scheduling Instructions Please schedule this patient for a follow up phone visit. H HOLDER ASSEMBLER Encounter Details Date Type Department Care Team (Late st Contact Info) Description 10/28/2023 Orders Only Department of Nicotine Dependence, [facility] in [place], [place] [address] [place] [phone] Sudha Bernstein M.A., Edwin.S.W., C.T.T.S. [address] [place] [phone] Social History Tobacco Use Types Packs/Day Years Used Date Smoking Tobacco: Every Day Cigarettes 0.5 40 Smokeless Tobacco: Never Alcohol Use Standard Drinks/Week Comments Not Currently 0 (1 standard drink = 0.6 oz pur e alcohol) [facility] Utilities Answer Date Recorded In the past 12 months has th e [employer], gas, oil, or water company threatened to [...] Sex Assigned at Female 10/06/2023 10:50 AM BRUSH HOLDER ASSEMBLER Gender Identity Female 10/06/2023 10:50 AM BRUSH HOLDER ASSEMBLER Sexual Orientation Straight 10/06/2023 10 :50 AM BRUSH HOLDER ASSEMBLER documented as of this encounter Plan of Treatment Scheduled Referrals Name Type Priority Associated Diagnoses Order Schedule Nicotine Dependence office visit (clinic) Outpatient Referral Routine Expected: 11/11/2023, Expires: 01/25/2025 documented as of this encounter Visit Diagnoses Not on filedocumented in this encounter Additional Health Concerns Assessment Noted Time PHQ-9 Depression Total Score: 3 10/20/19 24 7:30 AM BRUSH HOLDER ASSEMBLER documented as of this encounter
== END 2024-02-02 12:50 | disposition home or self-care (01) ==
LOC: AMB 02-05 06:09
PROVIDERS: PCP Family Medicine; Visit Provider Emergency Medicine
DX: N18.6 End stage renal disease (principal); Z51.5 Encounter for palliative care
CPT/HCPCS: A0425; A0428